=== PATIENT | female | born 1965 | race Caucasian/White ===

== ENCOUNTER 2023-05-30 13:35 | Observation (INO) | payer BC, SELFPAY ==
[2023-05-30] VITALS (27 sets, daily range): BP systolic 95–127; BP diastolic 74–86; PULSE 84–114; RESP 18–25; TEMP 36.4–36.9; O2SAT 93–100; BMI 22.9
--- NOTE | 2023-05-30 13:49 | ECG_ITS ---
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
--- NOTE | 2023-05-30 13:50 | XR_ITS ---
The [address] [address] Patient Name: ELIZABETH IRVIN MRN: [id number] date: 1965 Sex: F Assigned Patient Location: ER Current Patient Location: ER Accession/Order Number: [id number] Exam Date: 05/30/2023 14:12 Report Date: 05/30/2023 14:40 At the request of: NAZANIN STAFFORD Procedure: XR chest 1V PROCEDURE: XR chest 1V DATE: 05/30/2023 1:12 PM [employer] COMPARISONS: None. CLINICAL INDICATION: 57 years Female cp FINDINGS: The cardiomediastinal silhouette and pulmonary vasculature are within normal limits. The lungs are clear. There is no evidence of pleural effusion or pneumothorax. XR/XR chest 1V IMPRESSION: Chest radiograph is within normal limits. Electronically authenticated by: ALAINA HOFFMANN Date: 05/30/2023 14:40
[2023-05-30 14:11] LABS: Basophils Absolute Auto 0.1 10^3/uL (0.0-0.1); Eosinophils Absolute Auto 0.1 10^3/uL (0.0-0.7); Eosinophils Percent Auto 0.8 % (0.9-7.0); Hematocrit 39.1 % (36.0-48.0); Hemoglobin 11.3 g/dL (12.0-16.0); Immature Granulocytes Abs Auto 0.01 10^3/uL (0.00-0.03); Immature Granulocytes Pct Auto 0.2 % (0.0-0.5); Lymphocytes Absolute Auto 0.8 10^3/uL (1.2-3.8); Lymphocytes Percent Auto 13.4 % (20.5-60.0); Mean Corpuscular HGB Conc 28.9 g/dL (29.9-35.2); Mean Corpuscular Hemoglobin 24.5 pg (26.7-34.0); Mean Corpuscular Volume 84.8 fL (81.0-99.0); Mean Platelet Volume 8.6 fL (9.5-13.5); Monocytes Absolute Auto 0.8 10^3/uL (0.3-0.8); Monocytes Percent Auto 12.4 % (1.7-12.0); Neutrophils Absolute Auto 4.4 10^3/uL (1.4-6.5); Neutrophils Percent Auto 72.2 % (43.0-75.0); Platelet Count 550 10^3/uL (150-450); Red Blood Count 4.61 10^6/uL (4.20-5.40); Red Cell Distribution Width 14.6 % (11.0-15.0); White Blood Count 6.1 10^3/uL (4.0-11.0)
[2023-05-30 14:24] LABS: Prothrombin Time 9.8 sec (9.0-11.6)
[2023-05-30 14:26] LABS: INR <0.93
[2023-05-30 14:29] LABS: Alanine Aminotransferase 9 U/L (14-59); Albumin Globulin Ratio 0.5; Albumin Level 2.4 g/dL (3.4-5.0); Alkaline Phosphatase 76 U/L (46-116); Aspartate Amino Transferase 12 U/L (15-37); BUN Creatinine Ratio 21.4; Bilirubin Total 0.3 mg/dL (0.2-1.0); Calcium 9.7 mg/dL (8.5-10.1); Carbon Dioxide 16.1 mmol/L (21.0-32.0); Chloride 104 mmol/L (98-107); Estimated GFR (African America 30 (>=60); Estimated GFR (Non-African Ame 25 (>=60); Globulin 4.9 g/dL; Glucose 104 mg/dL (74-106); Lactate/Lactic Acid 1.1 mmol/L (0.4-2.0); Potassium 4.1 mmol/L (3.5-5.1); Sodium 135 mmol/L (136-145); Total Protein 7.3 g/dL (6.4-8.2); Troponin I High Sensitivity 4.4 pg/mL (4.0-51.3)
[2023-05-30 15:04] LABS: Bilirubin Urine NEGATIVE (NEGATIVE); Blood Urine NEGATIVE (NEGATIVE); Clarity Urine CLEAR (CLEAR); Color Urine LT. YELLOW (YELLOW); Glucose Urine UA NEGATIVE (NEGATIVE); Ketones Urine NEGATIVE (NEGATIVE); Leukocyte Esterase Urine NEGATIVE (NEGATIVE); Nitrite Urine NEGATIVE (NEGATIVE); Protein Urine 30 mg/dL (NEG/TRACE); Urobilinogen Urine 0.2 EU/dL (0.2-1.0)
[2023-05-30 15:05] LABS: Urine Microscopic Indicated YES
--- NOTE | 2023-05-30 15:09 | ED.GENADUL1 ---
HPI - General Adult General Chief complaint: Chest Pain Stated complaint: CHEST PAIN/ABDOMINAL PAIN Time Seen by Provider: 05/30/23 13:49 Source: patient Mode of arrival: Wheelchair Limitations: no limitations History of Present Illness HPI narrative: Patient is coming to us with a few days history of diarrhea she mentioned that she recently was evaluated in [facility] for similar symptoms at the beginning of this year almost 7 days ago, but since then she continues to have diarrhea almost 5 times since the morning in addition to the fact that she did mention that she have no abdominal pain she have a continuous left-sided upper chest wall pain that been going on since the seventh that she thinks it muscle pain.. The patient have no cough no fever no difficulty breathing she addressed dizziness No nausea no vomiting and she mentioned that the diarrhea is nonbloody Related Data Home Medications Medication Instructions Recorded Confirmed tamsulosin 0.4 mg capsule 0.4 mg PO Q24H 05/30/23 05/30/23 Allergies Allergy/AdvReac Type Severity Reaction Status Date / Time prednisone Allergy Severe Verified 05/30/23 13:48 valacyclovir AdvReac Severe Verified 05/30/23 13:48 Review of Systems ROS Status of ROS 10 or more systems reviewed and unremarkable except as noted in history and below Exam Narrative Exam Narrative: Nurses notes and vital signs reviewed and patient is not hypoxic. General: Well-appearing and in no apparent distress. Skin: Warm, dry, no pallor noted. No rash. Head: Normocephalic, atraumatic. Neck: Supple, non-tender. Eye: Pupils are equal, round and EOMI. No scleral icterus. Ears, Nose, Mouth, and Throat: TM are clear, no nasal mucosal hypertrophy. Oral mucosa is moist, no posterior oropharynx erythema, uvula is mid-line Cardiovascular: Regular Rate and Rhythm without murmur, gallop or rub. Respiratory: No accessory muscle use or respiratory distress. Lungs are clear to auscultation, no wheezing, rales or rhonchi Chest Wall: Left-sided chest wall pain mostly at the midaxillary line Back: No midline thoracic or lumbar vertebral tenderness. No CVA tenderness Musculoskeletal: normal ROM, no calf or popliteal tenderness, no lower extremity edema/swelling GI: Abdomen is soft, non-distended. Normal bowel sounds. No masses appreciated. No tenderness to palpation. No rebound, guarding, or rigidity noted. Neurological: A&O x4. No cranial nerve dysfunction observed. No truncal ataxia. Moves all extremities. Sensation intact. Psychiatric: Cooperative and interactive. Normal mood and affect. Constitutional Vital Signs, click to edit/add: Last Vital Signs Temp 97.6 F 05/30/23 13:41 Pulse 100 H 05/30/23 13:50 Resp 25 H 05/30/23 13:50 BP 102/74 05/30/23 13:47 Pulse Ox 98 05/30/23 13:50 O2 Del Method Room Air 05/30/23 13:41 Course Vital Signs Vital signs: Vital Signs Temperature 97.6 F 05/30/23 13:41 Pulse Rate 98 H 05/30/23 13:41 Respiratory Rate 20 05/30/23 13:41 Blood Pressure 100/85 05/30/23 13:41 Pulse Oximetry 100 05/30/23 13:41 Oxygen Delivery Method Room Air 05/30/23 13:41 Temperature 97.6 F 05/30/23 13:41 Pulse Rate 100 H 05/30/23 13:50 Respiratory Rate 25 H 05/30/23 13:50 Blood Pressure 102/74 05/30/23 13:47 Pulse Oximetry 98 05/30/23 13:50 Oxygen Delivery Method Room Air 05/30/23 13:41 Medical Decision Making [facility] Narrative Medical decision making narrative: The patient presented with possible muscular chest wall pain her EKG in the ER showing sinus rhythm with a heart rate of [address] elevation or depression We obtain the workup that was done from [facility] at that time she was diagnosed with dehydration and her creatinine was 1.7. Today the patient presenting to us also with dizziness and continuous diarrhea The patient was given a liter of fluid she will be admitted just for observation at this is the second time she presented with the same problem The patient case was discussed with Dr. Apodaca and he agreed with above-mentioned plan Lab Data Labs: Lab Results 05/30/23 05/30/23 Range/Units 14:04 14:35 WBC 6.1 (4.0-11.0) 10^3/uL RBC 4.61 (4.20-5.40) 10^6/uL Hgb 11.3 L (12.0-16.0) g/dL Hct 39.1 (36.0-48.0) % MCV 84.8 (81.0-99.0) fL MCH 24.5 L (26.7-34.0) pg MCHC 28.9 L (29.9-35.2) g/dL RDW 14.6 (11.0-15.0) % Plt Count 550 H (150-450) 10^3/uL MPV 8.6 L (9.5-13.5) fL Neut % (Auto) 72.2 (43.0-75.0) % Lymph % (Auto) 13.4 L (20.5-60.0) % [place] % (Auto) 12.4 H (1.7-12.0) % Eos % (Auto) 0.8 L (0.9-7.0) % Baso % (Auto) 1.0 (0.2-2.0) % Neut # (Auto) 4.4 (1.4-6.5) 10^3/uL Lymph # (Auto) 0.8 L (1.2-3.8) 10^3/uL [place] # (Auto) 0.8 (0.3-0.8) 10^3/uL Eos # (Auto) 0.1 (0.0-0.7) 10^3/uL Baso # (Auto) 0.1 (0.0-0.1) 10^3/uL Abs Immat Gran (auto) 0.01 (0.00-0.03) 10^3/uL Imm/Tot Granulo (auto) 0.2 (0.0-0.5) % PT 9.8 (9.0-11.6) sec INR <0.93 Sodium 135 L (136-145) mmol/L Potassium 4.1 (3.5-5.1) mmol/L Chloride 104 (98-107) mmol/L Carbon Dioxide 16.1 L (21.0-32.0) mmol/L Anion Gap 19.0 BUN 44.0 H (7.0-18.0) mg/dL Creatinine 2.06 H (0.55-1.02) mg/dL Est GFR ( Amer) 30 L (>=60) Est GFR (Non-Af Amer) 25 L (>=60) BUN/Creatinine Ratio 21.4 Glucose 104 (74-106) mg/dL Lactate 1.1 (0.4-2.0) mmol/L Calcium 9.7 (8.5-10.1) mg/dL Total Bilirubin 0.3 (0.2-1.0) mg/dL AST 12 L (15-37) U/L ALT 9 L (14-59) U/L Alkaline Phosphatase 76 (46-116) U/L Troponin I High Sens 4.4 (4.0-51.3) pg/mL Total Protein 7.3 (6.4-8.2) g/dL Albumin 2.4 L (3.4-5.0) g/dL Globulin 4.9 g/dL Albumin/Globulin Ratio 0.5 Urine Color Lt. yellow (YELLOW) Urine Clarity Clear (CLEAR) Urine pH 6.0 (5.0-9.0) Ur Specific [place] 1.020 (1.005-1.025) Urine Protein 30 A (NEG/TRACE) mg/dL Urine Glucose (UA) Negative (NEGATIVE) mg/dL Urine Ketones Negative (NEGATIVE) mg/dL Urine Occult Blood Negative (NEGATIVE) Urine Nitrite Negative (NEGATIVE) Urine Bilirubin Negative (NEGATIVE) Urine Urobilinogen 0.2 (0.2-1.0) EU/dL Ur Leukocyte Esterase Negative (NEGATIVE) Discharge Plan Discharge Chief Complaint: Chest Pain Clinical Impression: Dizziness Acute kidney failure Qualifiers: Acute renal failure type: unspecified Qualified Code(s): N17.9 - Acute kidney failure, unspecified Patient Disposition: Admitted as Observation Time of Disposition Decision: 15:10
[2023-05-30 15:22] LABS: Crystals Seen? None Seen #/HPF (None Seen); Mucus Urine NONE SEEN (NONE SEEN); RBC Urine 0-2 #/HPF (0-2); Squamous Epithelial Cell Urine FEW #/LPF (NONE/RARE)
[2023-05-30 15:23] LABS: Cast Seen? SEEN #/LPF (NONE SEEN); Fine Granular Casts Urine FEW; Hyaline Casts Urine RARE
[2023-05-30 15:24] LABS: Bacteria Urine TRACE #/HPF (NONE SEEN); Urine Culture Indicated NO
[2023-05-30] MEDS: LACTATED RINGER'S SOLUTION 1,000 ML 125 ML IV (17:24)
[2023-05-30] MEDS: ACETAMINOPHEN 500 MG TABLET 1000 MG PO (17:27)
[2023-05-30 17:57] LABS: Creatine Kinase 19 U/L (26-192); Creatine Kinase MB <0.50 ng/mL (<=3.60); Myoglobin 77 ng/mL (9-82)
[2023-05-30] MEDS: ORPHENADRINE 60 MG/ 2 ML VIAL IV (18:08)
[2023-05-30] MEDS: TRAMADOL HCL 50 MG TABLET PO (19:43)
[2023-05-31] VITALS (20 sets, daily range): BP systolic 113–130; BP diastolic 75–82; PULSE 77–89; RESP 14–26; TEMP 36.6–36.9; O2SAT 95–99
[2023-05-31] MEDS: TRAMADOL HCL 50 MG TABLET PO ×4 (01:04→23:09)
[2023-05-31] MEDS: LACTATED RINGER'S SOLUTION 1,000 ML 125 ML IV ×3 (01:05→18:07)
[2023-05-31] MEDS: HYOSCYAMINE SULFATE 0.125 MG TAB.SUBL SL ×4 (06:22→21:18)
[2023-05-31 06:32] LABS: Basophils Absolute Auto 0.1 10^3/uL (0.0-0.1); Basophils Percent Auto 1.3 % (0.2-2.0); Eosinophils Absolute Auto 0.1 10^3/uL (0.0-0.7); Eosinophils Percent Auto 1.6 % (0.9-7.0); Hematocrit 34.2 % (36.0-48.0); Immature Granulocytes Abs Auto 0.04 10^3/uL (0.00-0.03); Immature Granulocytes Pct Auto 0.6 % (0.0-0.5); Lymphocytes Absolute Auto 1.1 10^3/uL (1.2-3.8); Lymphocytes Percent Auto 15.2 % (20.5-60.0); Mean Corpuscular HGB Conc 29.2 g/dL (29.9-35.2); Mean Corpuscular Hemoglobin 24.8 pg (26.7-34.0); Mean Corpuscular Volume 84.7 fL (81.0-99.0); Mean Platelet Volume 8.3 fL (9.5-13.5); Monocytes Percent Auto 13.7 % (1.7-12.0); Neutrophils Absolute Auto 4.8 10^3/uL (1.4-6.5); Neutrophils Percent Auto 67.6 % (43.0-75.0); Platelet Count 508 10^3/uL (150-450); Red Blood Count 4.04 10^6/uL (4.20-5.40); Red Cell Distribution Width 14.6 % (11.0-15.0); White Blood Count 7.1 10^3/uL (4.0-11.0)
[2023-05-31 07:03] LABS: Alanine Aminotransferase 8 U/L (14-59); Albumin Globulin Ratio 0.5; Albumin Level 2.1 g/dL (3.4-5.0); Alkaline Phosphatase 67 U/L (46-116); Anion Gap 14.6; Aspartate Amino Transferase 7 U/L (15-37); BUN Creatinine Ratio 21.5; Bilirubin Total 0.3 mg/dL (0.2-1.0); Calcium 9.5 mg/dL (8.5-10.1); Carbon Dioxide 17.5 mmol/L (21.0-32.0); Chloride 110 mmol/L (98-107); Estimated GFR (African America 33 (>=60); Estimated GFR (Non-African Ame 27 (>=60); Globulin 4.2 g/dL; Glucose 63 mg/dL (74-106); Magnesium 1.6 mg/dL (1.8-2.4); Potassium 4.1 mmol/L (3.5-5.1); Sodium 138 mmol/L (136-145); Total Protein 6.3 g/dL (6.4-8.2)
--- NOTE | 2023-05-31 08:02 | P.HP_ITS ---
H&P: HPI History of Present Illness Chief complaint: Chest Pain,Abdominal Pain,Acute Kidney Failure,Diz Narrative: presented to er with increasing weaknss, abd pain. ound to have acute kidney injury with dehydration. possible uti. pt admitted for eval and hydration Review of Systems ROS Status of ROS 10 or more systems reviewed and unremark able except as noted in history and below PFSH PFSH Social History Highest level of school completed/degree received: GED or equivalent Meds Home Medications and Allergies Home Medications Medication Instructions Recorded Confirmed Type tamsulosin 0.4 mg capsule 0.4 mg PO Q24H 05/30/23 05/30/23 History Allergies Allergy/AdvReac Type Severity Reaction Status Date / Time prednisone Allergy Severe Verified 05/30/23 13:48 valacyclovir AdvReac Severe Verified 05/30/23 13:48 Exam Constitutional Vital Signs, click to edit/add: Last Vital Signs Temp 98.1 F 05/31/23 06:51 Pulse 83 05/31/23 07:41 Resp 20 05/31/23 07:40 BP 118/82 05/31/23 07:27 Pulse Ox 96 05/31/23 07:11 O2 Del Method Room Air 05/31/23 07:11 Documenting provider has reviewed patient's vital signs: yes Common normals: apparent distress (sl painful distress) HENMT Common normals: normocephalic Respiratory Common normals: normal respiratory effort and no retractions Cardio Common normals: regular rate and regular rhythm GI Common normals: Normal to inspection, nondistended, normoactive bowel sounds present Palpation: tender (mild diffuse - no rebound) Results Labs Labs: Short CBC 05/30/23 05/31/23 Range/Units 14:04 04:26 WBC 6.1 7.1 (4.0-11.0) 10^3/uL Hgb 11.3 L 10.0 L (12.0-16.0) g/dL Hct 39.1 34.2 L (36.0-48.0) % Plt Count 550 H 508 H (150-450) 10^3/uL BMP 05/30/23 05/31/23 14:04 04:26 Sodium 135 L 138 Potassium 4.1 4.1 Chloride 104 110 H Carbon Dioxide 16.1 L 17.5 L BUN 44.0 H 41.0 H Creatinine 2.06 H 1.91 H Glucose 104 63 L Calcium 9.7 9.5 Cardiac Enzymes 05/30/23 Range/Units 17:21 Total Creatine Kinase 19 L (26-192) U/L CK-MB (CK-2) <0.50 (<=3.60) ng/mL Liver Function 05/30/23 05/31/23 Range/Units 14:04 04:26 Total Bilirubin 0.3 0.3 (0.2-1.0) mg/dL AST 12 L 7 L (15-37) U/L ALT 9 L 8 L (14-59) U/L Alkaline Phosphatase 76 67 (46-116) U/L Albumin 2.4 L 2.1 L (3.4-5.0) g/dL Urine 05/30/23 Range/Units 14:35 Urine Color Lt. yellow (YELLOW) Urine Clarity Clear (CLEAR) Urine pH 6.0 (5.0-9.0) Ur Specific [place] 1.020 (1.005-1.025) Urine Protein 30 A (NEG/TRACE) mg/dL Urine Glucose (UA) Negative (NEGATIVE) mg/dL Assessment and Plan Assessment and Plan (1) Acute kidney failure: Qualifiers: Acute renal failure type: unspecified Qualified Code(s): N17.9 - Acute kidney failure, unspecified (2) Dizziness: Plan Sinus tachycardia - abdominal pain l;eading to acute renal injury and dehydration. Cont with fluid resuscitation. since not improved much overnight check renal u/s Iron def anemia - check stool or OB Hypomagnesemia - Supplement Thrombocytopenia - monitor daily Hyponatremia due to dehydration- cont with fluids, lower bolus this am So far with just dehydration- maintain observation, if much improved this afternoon - possible D/C to home
--- NOTE | 2023-05-31 08:06 | US_ITS ---
The [address] [address] Patient Name: ELIZABETH IRVIN MRN: [id number] date: 1965 Sex: F Assigned Patient Location: ICU Current Patient Location: ICU Accession/Order Number: [id number] Exam Date: 05/31/2023 11:05 Report Date: 05/31/2023 12:05 At the request of: EDUARDO WISDOM Procedure: US renal bladder EXAMINATION: US renal bladder HISTORY: acute renal failure COMPARISON: No relevant comparison available. TECHNIQUE: Ultrasound examination was performed of the bladder. FINDINGS: Right Kidney: Normal in size and contour. The cortex measures 1 cm thick. Increased cortical echotexture with no solid cortical mass or hydronephrosis. Nonobstructing nephrolithiasis measuring up to 7 mm. Height: 6.2 cm Length: 9.8 cm Width: 5.0 cm Left Kidney: Small in size and contour. The cortex is thin measuring 0.6 cm. Increase in cortical echotexture. Echogenic foci measuring up to 7 mm, nonobstructing nephrolithiasis. No solid mass Height: 3.8 cm Length: 6.1 cm Width: 3.8 cm The urinary bladder measures 6.3 x 6.9 x 9.8 cm a volume of 296 mL. 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
[2023-05-31] MEDS: PANTOPRAZOLE SODIUM 40 MG VIAL IV (08:17)
[2023-05-31] MEDS: 0.9 % SODIUM CHLORIDE 1,000 ML 500 ML IV (08:17)
[2023-05-31] MEDS: MAGNESIUM OXIDE 400 MG TABLET PO ×2 (08:17→21:18)
--- NOTE | 2023-05-31 09:07 | CM.NOTE ---
Rounds made with Dr. Apodaca. Potential discharge later today.
[2023-05-31] MEDS: ACETAMINOPHEN 500 MG TABLET 1000 MG PO (12:41)
[2023-05-31 20:13] LABS: Adenovirus F 40/41 NOT DETECTED (NOT DETECTE); Astrovirus NOT DETECTED (NOT DETECTE); Cryptosporidium NOT DETECTED (NOT DETECTE); Cyclospora cayetanensis NOT DETECTED (NOT DETECTE); Entamoeba histolytica NOT DETECTED (NOT DETECTE); Enteroaggregative E.coli NOT DETECTED (NOT DETECTE); Enteropathogenic E.coli NOT DETECTED (NOT DETECTE); Enterotoxigenic E. coli NOT DETECTED (NOT DETECTE); Giardia lamblia NOT DETECTED (NOT DETECTE); Norovirus GI/GII NOT DETECTED (NOT DETECTE); Plesiomonas shigelloides NOT DETECTED (NOT DETECTE); Rotavirus A NOT DETECTED (NOT DETECTE); Salmonella NOT DETECTED (NOT DETECTE); Sapovirus NOT DETECTED (NOT DETECTE); Shiga-like toxin-producing E.C NOT DETECTED (NOT DETECTE); Shigella/Enteroinvasive E.coli NOT DETECTED (NOT DETECTE); Vibrio NOT DETECTED (NOT DETECTE); Vibrio cholerae NOT DETECTED (NOT DETECTE); Yersinia enterocolitica NOT DETECTED (NOT DETECTE)
[2023-05-31 20:18] LABS: Occult Blood Negative
[2023-05-31 23:35] LABS: Campylobacter DETECTED (NOT DETECTE)
[2023-06-01] MEDS: LACTATED RINGER'S SOLUTION 1,000 ML 125 ML IV (02:25)
[2023-06-01] MEDS: HYOSCYAMINE SULFATE 0.125 MG TAB.SUBL SL ×2 (05:02→12:12)
[2023-06-01 05:10] LABS: Basophils Absolute Auto 0.1 10^3/uL (0.0-0.1); Basophils Percent Auto 0.8 % (0.2-2.0); Eosinophils Absolute Auto 0.1 10^3/uL (0.0-0.7); Eosinophils Percent Auto 1.6 % (0.9-7.0); Hematocrit 28.1 % (36.0-48.0); Immature Granulocytes Abs Auto 0.03 10^3/uL (0.00-0.03); Immature Granulocytes Pct Auto 0.5 % (0.0-0.5); Lymphocytes Absolute Auto 0.8 10^3/uL (1.2-3.8); Lymphocytes Percent Auto 13.4 % (20.5-60.0); Mean Corpuscular HGB Conc 28.5 g/dL (29.9-35.2); Mean Corpuscular Hemoglobin 23.7 pg (26.7-34.0); Mean Corpuscular Volume 83.4 fL (81.0-99.0); Mean Platelet Volume 9.1 fL (9.5-13.5); Monocytes Absolute Auto 0.7 10^3/uL (0.3-0.8); Monocytes Percent Auto 10.5 % (1.7-12.0); Neutrophils Absolute Auto 4.6 10^3/uL (1.4-6.5); Neutrophils Percent Auto 73.2 % (43.0-75.0); Platelet Count 368 10^3/uL (150-450); Red Blood Count 3.37 10^6/uL (4.20-5.40); Red Cell Distribution Width 14.7 % (11.0-15.0); White Blood Count 6.3 10^3/uL (4.0-11.0)
[2023-06-01 05:11] VITALS: BP 115/77; PULSE 75; RESP 16; TEMP 36.8; O2SAT 98
[2023-06-01] MEDS: TRAMADOL HCL 50 MG TABLET PO ×2 (05:15→12:11)
[2023-06-01 05:25] LABS: Alanine Aminotransferase 10 U/L (14-59); Albumin Globulin Ratio 0.4; Albumin Level 1.7 g/dL (3.4-5.0); Alkaline Phosphatase 60 U/L (46-116); Anion Gap 10.9; Aspartate Amino Transferase 17 U/L (15-37); BUN Creatinine Ratio 17.8; Bilirubin Total 0.2 mg/dL (0.2-1.0); Calcium 8.5 mg/dL (8.5-10.1); Carbon Dioxide 20.1 mmol/L (21.0-32.0); Chloride 111 mmol/L (98-107); Estimated GFR (African America 39 (>=60); Estimated GFR (Non-African Ame 32 (>=60); Globulin 3.8 g/dL; Glucose 82 mg/dL (74-106); Magnesium 1.6 mg/dL (1.8-2.4); Sodium 138 mmol/L (136-145); Total Protein 5.5 g/dL (6.4-8.2)
--- NOTE | 2023-06-01 09:03 | CM.NOTE ---
Rounds made with Dr. Apodaca, discussed with pt discharge to home. No discharge needs identified.
--- NOTE | 2023-06-01 09:09 | P.DS_ITS ---
DS: Providers Provider Date of admission: 05/30/23 15:43 Primary care physician: Non-Staff Physician, DS: Diagnosis Discharge Diagnosis (1) Acute kidney failure: Qualifiers: Acute renal failure type: unspecified Qualified Code(s): N17.9 - Acute kidney failure, unspecified (2) Dizziness: Plan Sinus tachycardia - abdominal pain due to Campylobacter Iron def anemia Hypomagnesemia Thrombocytopenia Hyponatremia due to dehydration DS: Summary Hospital Course Hospital Course: Patient was admitted with increasing abdominal pain and diarrhea over the last 2 weeks. Stool testing ended up confirming Campylobacter. But there is degree of her symptoms and persistence of her symptoms we will go ahead and start treatment today of Cipro 500 mg twice daily. Patient does feel overall much i mproved. Knowing the results are much improved as well. She does have significant anemia and that can be followed up as an outpatient. I think part of it is dilutional. Follow-up with PCP within the next week. Medications see list. Time Spent with Patient Time attestation: Total time spent providing and/or coordinating discharge services: Exam Constitutional Vital Signs, click to edit/add: Last Vital Signs Temp 98.2 F 06/01/23 05:11 Pulse 75 06/01/23 05:11 Resp 16 06/01/23 05:11 BP 115/77 06/01/23 05:11 Pulse Ox 98 06/01/23 05:11 O2 Del Method Room Air 06/01/23 05:11 Documenting provider has reviewed patient's vital signs: yes Common normals: apparent distress (sl painful distress) HENMT Common normals: normocephalic Respiratory Common normals: normal respiratory effort and no retractions Cardio Common normals: regular rate and regular rhythm GI Common normals: Normal to inspection, nondistended, normoactive bowel sounds present Palpation: tender (mild diffuse - no rebound) DS: Data Data Completed and Pending Labs on day of discharge: Labs from last 24 hours 06/01/23 05/31/23 04:40 19:36 WBC 6.3 RBC 3.37 L Hgb 8.0 L Hct 28.1 L MCV 83.4 MCH 23.7 L MCHC 28.5 L RDW 14.7 Plt Count 368 MPV 9.1 L Neut % (Auto) 73.2 Lymph % (Auto) 13.4 L [place] % (Auto) 10.5 Eos % (Auto) 1.6 Baso % (Auto) 0.8 Neut # (Auto) 4.6 Lymph # (Auto) 0.8 L [place] # (Auto) 0.7 Eos # (Auto) 0.1 Baso # (Auto) 0.1 Abs Immat Gran (auto) 0.03 Imm/Tot Granulo (auto) 0.5 Sodium 138 Potassium 4.0 Chloride 111 H Carbon Dioxide 20.1 L Anion Gap 10.9 BUN 29.0 H Creatinine 1.63 H Est GFR ( Amer) 39 L Est GFR (Non-Af Amer) 32 L BUN/Creatinine Ratio 17.8 Glucose 82 Calcium 8.5 Magnesium 1.6 L Total Bilirubin 0.2 AST 17 ALT 10 L Alkaline Phosphatase 60 Total Protein 5.5 L Albumin 1.7 L Globulin 3.8 Albumin/Globulin Ratio 0.4 Stool Occult Blood Negative Stl C. cayetanensis PCR Not detected Stool Rotavirus (PCR) Not detected Stool Adenovirus (PCR) Not detected Stool Astrovirus (PCR) Not detected Stool Campylobacter PCR Detected A* Stool Cryptosporidium PCR Not detected St Sh/Enteroin Ecoli PCR Not detected Stl Enterotoxigenic E PCR Not detected Stool EPEC (PCR) Not detected Stl E. histolytica PCR Not detected Stool Giardia Lamblia PCR Not detected Stl P. shigelloides PCR Not detected Stool Salmonella PCR Not detected Stool Sapovirus (PCR) Not detected Stl Shiga-like Tx [address].enterocolitica PCR Not detected Stl Vibrio cholerae PCR Not detected Stl Enteroaggr Ecoli PCR Not detected Stl Norovirus GI/GII PCR Not detected C. difficile Toxin A&B Not detected Vibrio Culture Not detected Discharge Plan Discharge Disposition: Home, Self-Care Discharge Medications: New ciprofloxacin HCl 500 mg Tablet 500 mg PO BID Qty: 20 0RF pantoprazole [Protonix] 40 mg tablet,delayed release (DR/EC) 40 mg PO DAILY Qty: 30 11RF hyoscyamine sulfate [Levsin/SL] 0.125 mg tablet, sublingual 0.125 mg PO Q6H MDD 4 PRN (Reason: dyspepsia) Qty: 30 0RF Continued tamsulosin 0.4 mg capsule 0.4 mg PO Q24H Patient Comments: for 14 days Activity: resume usual activities as tolerated Diet: advance to your usual diet Patient Instructions: Ciprofloxacin (By mouth), Hyoscyamine (By mouth), Pa ntoprazole (By mouth), Acute Kidney Injury (GEN), Acute Diarrhea (GEN), Dizziness (GEN) Forms: Portal Instructions Follow Up Appointments: @ 11am with Dr. Rajput [address] [facility] [phone] *take insurance card and medications in original bottles* Discharge Date/Time: 06/01/23 12:25
[2023-06-01] MEDS: PANTOPRAZOLE SODIUM 40 MG VIAL IV (10:20)
[2023-06-01] MEDS: MAGNESIUM OXIDE 400 MG TABLET PO (10:20)
[2023-06-01] MEDS: CIPROFLOXACIN HCL 500 MG TABLET PO (10:20)
[2023-06-01] MEDS: ENSURE CLEAR 237 ML LIQUID PO (10:21)
[2023-06-01 11:03] VITALS: O2SAT 97
--- NOTE | 2023-06-02 14:04 | CM.DCFOLLOWU ---
Person spoke with: Greer How are you feeling? Much better How is your pain? No pain Did you understand your discharge instructions? Yes Do you have any questions about your discharge instructions? No Were you given any prescriptions at discharge? Yes Were you able to get your prescriptions filled? Yes Do you understand how to take your medications as ordered? Yes Do you have any questions about your follow up appointment and do you plan to keep your follow up appointment? Yes Is there anything else that you would like to discuss? How do I get FMLA paperwork filled out? Explained to pt about dropping them off at her primary care office. Questions/Comments/Concerns/Other:
== END 2023-06-01 12:25 | disposition home or self-care (01) ==
LOC: ER 15:10 → ICU 15:52 → MS 05-31 12:28
PROVIDERS: Admitting Provider Family Medicine; Emergency Provider Emergency Medicine; Visit Provider Family Medicine
DX: N17.9 Acute kidney failure, unspecified (principal); A04.5 Campylobacter enteritis; E86.0 Dehydration; R00.0 Tachycardia, unspecified; D50.9 Iron deficiency anemia, unspecified; E83.42 Hypomagnesemia; D69.6 Thrombocytopenia, unspecified; E87.1 Hypo-osmolality and hyponatremia; R42 Dizziness and giddiness; Z79.899 Other long term (current) drug therapy
CPT/HCPCS: 36415; 71045; 76770; 80053; 81001; 82550; 82553; 83605; 83735; 83874; 84484; 85025; 85610; 87493; 87507; 93005; 94761; 96361; 96374; 96375; 96376; 99285; G0328; G0378; J2360

== ENCOUNTER 2023-06-16 14:36 | Outpatient (OUT) | payer BC, SELFPAY ==
[2023-06-16 15:28] LABS: Alanine Aminotransferase 23 U/L (14-59); Albumin Globulin Ratio 0.7; Albumin Level 2.4 g/dL (3.4-5.0); Alkaline Phosphatase 66 U/L (46-116); Anion Gap 10.1; Aspartate Amino Transferase 21 U/L (15-37); BUN Creatinine Ratio 12.9; Bilirubin Total 0.2 mg/dL (0.2-1.0); Calcium 8.1 mg/dL (8.5-10.1); Carbon Dioxide 25.4 mmol/L (21.0-32.0); Chloride 110 mmol/L (98-107); Estimated GFR (African America 39 (>=60); Estimated GFR (Non-African Ame 32 (>=60); Globulin 3.6 g/dL; Glucose 77 mg/dL (74-106); Potassium 4.5 mmol/L (3.5-5.1); Sodium 141 mmol/L (136-145)
[2023-06-16 15:39] LABS: Basophils Absolute Auto 0.1 10^3/uL (0.0-0.1); Basophils Percent Auto 1.1 % (0.2-2.0); Eosinophils Absolute Auto 0.4 10^3/uL (0.0-0.7); Eosinophils Percent Auto 6.4 % (0.9-7.0); Hematocrit 26.7 % (36.0-48.0); Hemoglobin 7.6 g/dL (12.0-16.0); Immature Granulocytes Abs Auto 0.01 10^3/uL (0.00-0.03); Immature Granulocytes Pct Auto 0.2 % (0.0-0.5); Lymphocytes Absolute Auto 1.6 10^3/uL (1.2-3.8); Lymphocytes Percent Auto 25.1 % (20.5-60.0); Mean Corpuscular HGB Conc 28.5 g/dL (29.9-35.2); Mean Corpuscular Hemoglobin 24.7 pg (26.7-34.0); Mean Corpuscular Volume 86.7 fL (81.0-99.0); Monocytes Absolute Auto 0.5 10^3/uL (0.3-0.8); Neutrophils Absolute Auto 3.8 10^3/uL (1.4-6.5); Neutrophils Percent Auto 59.2 % (43.0-75.0); Platelet Count 406 10^3/uL (150-450); Red Blood Count 3.08 10^6/uL (4.20-5.40); White Blood Count 6.4 10^3/uL (4.0-11.0)
== END 2023-06-16 14:37 | disposition home or self-care (01) ==
LOC: LAB 14:39
PROVIDERS: PCP Family Medicine; Visit Provider Family Medicine
DX: R60.1 Generalized edema (principal); R60.0 Localized edema; Z86.2 Personal history of diseases of the blood and blood-forming organs and certain disorders involving the immune mechanism
CPT/HCPCS: 36415; 80053; 83880; 85025

== ENCOUNTER 2023-06-21 11:36 | Outpatient (OUT) | payer BC, SELFPAY ==
--- OUTSIDE RECORDS SUMMARY | 2023-06-21 11:40 | XMS_ITS | CCD ---
Author Name Unknown Address [address] [place] [address] Organization [facility] Care Team Providers Care Wire Lather Name Role Phone Unavailable Primary Care Provider Unavailabl e MARTINEZ, JANICE Referring Unavailable MARTINEZ, JANICE Referring Unavailable MARTINEZ, JANICE Referring Unavailable MARTINEZ, JANICE Referring Unavailable MARTINEZ, JANICE Referring Unavailable MARTINEZ, JANICE Referring Unavailable MARTINEZ, JANICE Referring Unavailable MARTINEZ, JANICE Referring Unavailable MARTINEZ, JANICE Referring Unavailable MARTINEZ, JANICE Referring Unavailable MARTINEZ, JANICE Referring Unavailable MARTINEZ, JANICE Referring Unavailable Balbina Napoles Unavailable SUZI MCHUGH Primary Care Physician [phone] BALBINA NAPOLES Primary Care Unavailable FABY, DR CALEB [place] Admitting Unavailmindi HOBBS, DR CALEB [place] Attending Unavailabl e FABY, DR CALEB [place] Consulting Unavailmindi e TORRI, DR NATACHA العراقي Consulting Unavailable BALBINA NAPOLES Primary Care Unavailable JEISON, DR SUZI Urrutia Admitting Unavailable JEISON, DR SUZI Urrutia Attending Unavailable JEISON, DR SUZI Urrutia Consulting Unavailable TRI, DR CHALO Frazier Consulting Unavailable TORRI, DR NATACHA العراقي Consulting Unavailable MARLYS HERNANDEZ Consulting Unavailable SANDY CHEN Consulting Unavailable HARMONY BENITEZ Consulting Unavailable TRI, DR CHALO Frazier Admitting Unavailable TRI, DR CHALO Frazier Attending Unavailable BALBINA NAPOLES Primary Care Unavailable TRI, DR CHALO Frazier Consulting Unavailable TORRI, DR NATACHA العراقي Consulting Unavailable BALBINA NAPOLES Admitting Unavailable BALBINA NAPOLES Attending Unavailable YESIKA, BALBINA Primary Care Unavailable YESIKA, BALBINA Consulting Unavailable COOK, DR CHALO Frazier Admitting Unavailable COOK, DR CHALO Frazier Attending Unavailable YESIKA, BALBINA Primary Care Unavailable COOK, DR CHALO Frazier Consulting Unavailable WEST, DR BRADEN Hallman Consulting Unavailable YESIKA, BALBINA Admitting Unavailable YESIKA, BALBINA Attending Unavailable YESIKA, BALBINA Primary Care Unavailable YESIKA, BALBINA Consulting Unavailable WEST, DR BRADEN Hallman Admitting Unavailable WEST, DR BRADEN Hallman Attending Unavailable YESIKA, BALBINA Primary Care Unavailable WEST, DR BRADEN Hallman Consulting Unavailable YESIKA, BALBINA J Primary Care Physician [phone] Balbina Napoles Unavailable Unavailable Unavailable MD Chalo Blum Attending Provider CESAR Napoles Balbina Primary Care Provider Chalo Blum Unavailable Chalo Blum Attending Unavailable Chalo Blum Admitting Unavailable Yesika, Balbina Primary Care Unavailable COOKChalo Attending Unavailable SUZI MCHUGH Referring Unavailable COOKChalo Attending Unavailable COOKChalo Attending Unavailable YESIKA, BALBINA Primary Care Unavailable COOKChalo Attending Unavailable COOKChalo Attending Unavailable COOKChalo Attending Unavailable YESIKA, BALBINA Primary Care Unavailable COOKChaol Referring Unavailable COOKChalo Admitting Unavailable COOKChalo Attending Unavailable YESIKA, BALBINA Primary Care Unavailable COOKChalo Referring Unavailable COOKChalo Admitting Unavailable COOKChalo Attending Unavailable YESIKA, BALBINA Primary Care Unavailable COOKChalo Referring Unavailable COOKChalo Admitting Unavailable ODONNELLSAMY Referring Unavailable Mao Irina Unavailable Gaurang'MARLEY PERES Attending Unavailable ODONNELL, SAMY Admitting Unavailable ODONNELL, SAMY Attending Unavailable ODONNELL, SAMY Attending Unavailable ODONNELL, SAMY Admitting Unavailable ODONNELL, SAMY Referring Unavailable ODONNELL, SAMY Attending Unavailable ODONNELL, SAMY Referring Unavailable ODONNELL, SAMY Referring Unavailable ODONNELL, SAMY Attending Unavailable ODONNELL, SAMY Referring Unavailable O'LARISAMARLEY PIKE Attending Unavailable ODONNELL, SAMY Referring Unavailable ODONNELL, SMAY Admitting Unavailable O'LARISAEDY PIKEE Referring Unavailable SAMY ODONNELL Attending Unavailable SAMY ODONNELL Attending Unavailable KASEY MARLEY Attending Unavailable KASEY MARLEY Attending Unavailable Allergies Allergy Classification Reported Allergen(s) Allergy Type Date of Onset Reaction(s) Facility (15 sources) prednisoLONE; Translations: [PREDNISOLONE] Drug Allergy [address] [facility] (20 sources) valACYclovir; Translations: [valacyclovir] Drug Allergy 2 hives, Weal (disorder) [facility] (20 sources) predniSONE; Translations: [prednisone] Drug Allergy 2 Weal (disorder), Hives [facility] (1 source) predniSONE Drug Allergy [facility] (2 sources) valACYclovir; Translations: [Valtrex] Drug Allergy [facility] Repository Medications Current Medications Medication Drug Class(es) Dates Sig (Normalized) Sig (Original) acetaminophen 500 mg oral tablet (2 sources) Start: 10-12-2022 End: 10-26-2022 take 2 tablets by mouth every six hours acetaminophen (TYLENOL EXTRA STRENGTH) 500 mg tablet Take 2 tablets by mouth every 6 hours for 14 days. 112 tablet 0 10/12/2022 10/26/2022 Active Comment on above: Take 2 tablets by mo [facility] every 6 hours for 14 days. acetaminophen 325 mg / HYDROcodone bitartrate 5 mg oral tablet (2 sources) Opioid Agonist Start: 06-18-2022 acetaminophen-hydroc odone 325 mg-5 mg oral tablet 1 tab(s), Oral, q4hr Pain, 7 tab(s), Refill(s) 0, [id number], 160, cm, 06/11/22 9:42:00 EST, Height/Length Dosing, 65.6, kg, 06/11/22 9:42:00 EST, Weight Dosing Start Date: 06/18/22 Status: Ordered ciprofloxacin 500 mg oral tablet (1 source) Quinolone Antimicrobial Start: 03-31-2022 take 1 mg by mouth every twelve hours Cipro 500 mg Tab mg tab(s), Oral, q12hr, Refills(s) 0 Start Date: 03/31/22 Status: Ordered docusate sodium 100 mg oral capsule (7 sources) Start: 09-07-2022 End: 10-07-2022 take 1 capsule by mouth twice daily docusate sodium (COLACE) 100 mg capsule Take 1 capsule by mouth twice daily. 60 capsule 0 09/07/2022 10/07/2022 Active Comment on above: Take 1 capsule by [facility] twice daily. duloxetine 60 mg Cap-DR (5 sources) Start: 03-31-2022 take 1 capsule by mouth once daily duloxetine 60 mg Cap-DR 60 mg, Oral, Daily, Refills(s) 0, Depression Start Date: 03/31/22 Status: Ordered hydrOXYzine hydrochloride 10 mg oral tablet (1 source) Antihistamine Start: 03-18-2020 hydrOXYzine HCl 10 MG 1 tablet as needed Orally at bedtime for 90 days Feb, Active nitrofurantoin, macrocrystals 25 mg / nitrofurantoin, monohydrate 75 mg oral capsule (1 source) Nitrofuran Antibacterial Start: 07-16-2022 End: 07-23-2022 take 1 capsule by mouth twice daily at mealtime nitrofurantoin monohydrate and macrocrystal (MACROBID) 100 mg capsule Take 1 capsule by mouth twice daily for 7 days. Take with food. 14 capsule 0 07/16/2022 07/23/2022 Active Comment on above: Take 1 capsule by [facility] twice daily for 7 days. Take with food. oxyCODONE hydrochloride 5 mg oral tablet (1 source) Opioid Agonist Start: 09-07-2022 End: 09-10-2022 take 1 tablet by mouth every six hours as needed for pain oxyCODONE IR (ROXICODONE) 5 mg immediate release tablet Indications: Nephrolithiasis Take 1 tablet by mouth every 6 hours as needed for pain for up to 3 days. 8 tablet 0 09/07/2022 09/10/2022 Active Comment on above: Take 1 tablet by [facility] every 6 hours as needed for pain for up to 3 days. rOPINIRole 0.5 mg oral tablet (20 sources) Nonergot Dopamine Agonist Start: 03-31-2022 take 2 tablets by mouth three times daily ropinirole 0.5 mg Tab 1 mg = 2 tab(s), Oral, TID, for restless leg syndrome, Refills(s) 0 Start Date: 03/31/22 Status: Ordered Start: 02-02-2022 take 1 tablet by josé th once daily at bedtime rOPINIRole HCl 0.5 MG 1 tablet 1 to 3 hours before bedtime Orally Once a day for 30 day(s) Jan, Active Start: 02-02-2022 rOPINIRole (RE QUIP) 1 mg tablet sulfamethoxazole 800 mg / trimethoprim 160 mg oral tablet (2 sources) Dihydrofolate Reductase Inhibitor Antibacterial, Sulfonamide Antimicrobial Start: 09-01-2022 End: 09-04-2022 sulfamethoxazole-trimethopri m (BACTRIM DS) 800-160 mg per tablet Take 1 tablet by mouth twice daily for 3 days. Start 09/04 (3 days prior to surgery). 6 tablet 0 09/01/2022 09/04/2022 Active Start: 06-14-2022 End: 06-21-2022 Bactrim D.S. 800 mg-160 mg T ab 1 tab(s), Oral, BID for 7 day(s), 14 tab(s), Refill(s) 0, [facility] #[id number], 160, cm, 06/11/22 9:42:00 EST, Height/Length Dosing, 65.6, kg, 06/11/22 9:42:00 EST, Weight Dosing Start Date: 06/14/22 Stop Date: 06/21/22 Status: Ordered Comment on above: Take 1 tablet by josé twice daily for 3 days. Start 09/04 (3 days prior to surgery). Completed/Discontinued Medications Medication Drug Class(es) Dates Sig (Normalized) Sig (Original) cephalexin 500 mg oral capsule (7 sources) Cephalosporin Antibacterial Start: 09-16-2022 End: 09-16-2022 take 1 capsule by mouth three times daily cephALEXin (KEFLEX) 500 mg capsule Take 1 capsule by mouth three times daily. 10 capsule 0 09/16/2022 Active Start: 09-07-2022 End: 09-10-2022 take 1 capsule by mouth three times daily cephALEXin (KEFLEX) 500 mg capsule Take 1 capsule by mouth three times daily for 3 days. 9 capsule 0 09/07/2022 09/10/2022 Active Comment on above: Take 1 capsule by mo ut three times daily for 3 days. Take 1 capsule by [facility] three times daily. DULoxetine 60 mg delayed release oral capsule (20 sources) Serotonin and Norepinephrine Reuptake Inhibitor Start: 07-15-2020 DULoxetine (CYMBALTA) 60 mg capsule lidocaine hydrochloride 0.02 mg/mg topical gel (3 sources) Antiarrhythmic, Amide Local Anesthetic Start: 10-21-2022 End: 11-20-2022 lidocaine urojet 2 % 10 mL topical gel (GLYDO) Start: 09-16-2022 End: 10-16-2022 lidocaine urojet 2 % 10 mL t opical gel (GLYDO) lisinopril 20 mg oral tablet (20 sources) Angiotensin Converting Enzyme Inhibitor Start: 03-18-2020 lisinopril (ZESTRIL, PRINIVIL) 20 mg tablet Take by mouth. 0 03/18/2020 Active Comment on above: Take by mouth. oxybutynin chloride 5 mg oral tablet (11 sources) Cholinergic Muscarinic Antagonist Start: 10-12-2022 End: 11-11-2022 take 1 tablet by mouth every eight hours as needed oxybutynin (DITROPAN) 5 mg tablet Take 1 tablet by mouth three times daily as needed for bladder spasm 42 tablet 0 10/12/2022 Active Start: 09-07-2022 take 1 tablet by [facility] every eight hours as needed oxybutynin (DITROPAN) 5 mg tablet Take 1 tablet by mouth three times daily as needed for bladder spasm 42 tablet 0 09/07/2022 Active Start: 03-31-2022 take 1 mg by mouth once daily oxybutynin 5 mg ER Tab mg tab(s), Oral, Daily, Refills(s) 0 Start Date: 03/31/22 Status: Ordered Comment on above: Take 1 tablet by [facility] three times daily as needed for bladder spasm 0.25 mg, 0.5 mg dose 1.5 ml semaglutide 1.34 mg/ml pen injector (20 sources) Start: 06-10-2022 OZEMPIC 0.25 mg or 0.5 mg(2 mg/1.5 mL) pen Start: 03-31-2022 inject 0.5 mg by sub cutaneous injection every week Ozempic 0.5 mg, SubCutaneous, qWeek, Refill(s) 0, Wednesday, Blood glucose Start Date: 03/31/22 Status: Ordered Start: 03-31-2022 Ozempic SubCut aneous, qWeek, Refill(s) 0 Start Date: 03/31/22 Status: Ordered Start: 02-16-2022 Ozempic (0.25 or 0.5 MG/DOSE) 2 MG/1.5ML Inject 0.5 weekly Subcutaneous once a week for 90 day(s) Jan, Active Ozempic (0.25 or 0.5 MG/DOSE) 2 MG/1.5ML Subcutaneous Solution Pen-injector iuse as directed Quantity: 0 Refills: 0 Ordered: 05-May-2022 DO Active tamsulosin hydrochloride 0.4 mg oral capsule (10 sources) alpha-Adrenergic Rebecca Start: 10-12-2022 End: 11-11-2022 tamsulosin (FLOMAX) 0.4 mg Take 1 capsule by mouth once daily 30 minutes after the same meal each day. 30 capsule 0 10/12/2022 Active Start: 09-07-2022 End: 10-07-2022 tamsulosin (FLOMAX) 0.4 mg T brandon 1 capsule by mouth once daily 30 minutes after the same meal each day. 30 capsule 0 09/07/2022 10/07/2022 Active Comment on above: Take 1 capsule by mo [facility] once daily 30 minutes after the same meal each day. Problems Active Problems Problem Classification Problem Date Documented Date Episodic/Chronic Acute and unspecified renal failure (1 source) Acute kidney failure, unspecified; Translations: [ACUTE KIDNEY FAILURE UNSPECIFIED] Onset: 2 Episodic Anxiety disorders (6 sources) Generalized anxiety disorder; Translations: [Generalized anxiety disorder] Onset: 2 Resolved: 2 Chronic Chronic kidney disease (4 sources) Chronic kidney disease stage 3A ; Translations: [Stage 3a chronic kidney disease] Onset: 2 Chronic Chronic kidney disease (7 sources) Chronic kidney disease; Translations: [CHRONIC KIDNEY DISEASE STAGE 3A] Onset: 2 Deficiency and other anemia (2 sources) Anemia of renal disease; Translations: [Anemia in chronic kidney disease] Chronic Deficiency and other anemia (6 sources) Anemia 03-31-2022 Episodic Deficiency and other anemia (1 source) Anemia, unspecified; Translations: [ANEMIA UNSPECIFIED] Onset: 2 Episodic Diabetes mellitus with complications (3 sources) Type 2 diabetes mellitus with diabetic chronic kidney disease; Translations: [Disorder of kidney due to diabetes mellitus] Onset: 2 Chronic Diabetes mellitus without complication (10 sources) Type 2 diabetes mellitus without complication; Translations: [Type 2 diabetes mellitus without complications] Chronic Essential hypertension (16 sources) Essential hypertension; Translations: [Essential (primary) hypertension] Onset: 2 Resolved: 2 Chronic Hypertension with complications and secondary hypertension (3 sources) Hypertensive chronic kidney disease with stage 1 through stage 4 chronic kidney disease, or unspecified chronic kidney disease; Translations: [Chronic kidney disease due to hypertension] Onset: 2 Chronic Induced (2 sources) Induced termination of complicated by urinary tract infection; Translations: [Urinary tract infection following (induced) termination of ] Onset: 3 Episodic Mood disorders (11 sources) Recurrent major depressive episodes, mild ; Translations: [Major depressive disorder, recurrent, mild] Onset: 2 Resolved: 2 Chronic Nephritis; nephrosis; renal sclerosis (2 sources) Atrophy of left kidney; Translations: [Atrophy of kidney (terminal)] Onset: 3 Chronic Osteoarthritis (6 sources) Arthritis 03-31-2022 Chronic Other aftercare (1 source) 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; 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] Onset: 2 Episodic Other diseases of kidney and ureters (2 sources) Secondary hyperparathyroidism; Translations: [Secondary hyperparathyroidism of renal origin] Chronic Other diseases of kidney and ureters (2 sources) Hydronephrosis; Translations: [Hydronephrosis with renal and ureteral calculous obstruction] Episodic Other endocrine disorders (1 source) Hormone increase; Translations: [Endocrine disorder, unspecified] Episodic Other gastrointestinal disorders (1 source) Bariatric surgery status; Translations: [BARIATRIC SURGERY STATUS] Onset: 2 Episodic Other hereditary and degenerative nervous system conditions (9 sources) Restless legs; Translations: [Restless legs syndrome] 04-17-2022 Chronic Other hereditary and degenerative nervous system conditions (2 sources) Restless legs syndrome Onset: 2 Resolved: 2 Chronic Other nutritional; endocrine; and metabolic disorders (1 source) Aciduria; Translations: [Disorder of amino-acid metabolism, unspecified] Chronic Other nutritional; endocrine; and metabolic disorders (1 source) Disorder of amino-acid metabolism, unspecified; Translations: [Aciduria (HCC)] Onset: 3 Chronic Other nutritional; endocrine; and metabolic disorders (1 source) Overweight in adulthood with body mass index of 25 or more but less than 30; Translations: [Overweight] Episodic Other screening for suspected conditions (not mental disorders or infectious disease) (2 sources) Patient encounter status; Translations: [Encounter for screening for other disorder] Episodic Other skin disorders (3 sources) Localized swelling, mass and lump, right upper limb; Translations: [LOC SWELL MASS LUMP RT UPPER LIMB] Onset: 2 Episodic Phlebitis; thrombophlebitis and thromboembolism (1 source) Phlebitis and thrombophlebitis of superficial vessels of right lower extremity; Translations: [PHLEBITIS AND TP SUP VES RT LOW EXT] Onset: 2 Episodic Residual codes; unclassified (4 sources) Insomnia; Translations: [Insomnia, unspecified] Episodic Unclassified (1 source) CONTACT W/AND (SUSP) EXPOS COVID-19; Translations: [CONTACT W/AND (SUSP) EXPOS COVID-19] Onset: 2 Varicose veins of lower extremity (4 sources) Varicose veins of bilateral lower extremities with pain; Translations: [VARICOSE VNS CHRIS LOW EXTREM W/PAIN] Onset: 2 Episodic Past or Other Problems Problem Classification Problem Date Documented Date Episodic/Chronic Abdominal pain (5 sources) Unspecified abdominal pain; Translations: [Left flank pain] Onset: 03-19-2022 Episodic Calculus of urinary tract (20 sources) Ureteric stone; Translations: [Calculus of ureter] Onset: 03-31-2022 Episodic Fluid and electrolyte disorders (6 sources) Sodium disorder; Translations: [Hyperosmolality and hypernatremia] Onset: 10-21-2022 Episodic Genitourinary symptoms and ill-defined conditions (20 sources) Abnormal urinalysis; Translations: [Unspecified abnormal findings in urine] Onset: 09-07-2022 Episodic Other diseases of kidney and ureters (3 sources) Hydronephrosis with renal and ureteral calculous obstruction; Translations: [HYDRONPHROS RENL AND URETRL CALCUL OBST] Onset: 03-25-2022 Episodic Other endocrine disorders (1 source) Endocrine disorder, unspecified; Translations: [Elevated parathyroid hormone] Onset: 09-07-2022 Episodic Unclassified (1 source) Never smoked tobacco; Translations: [Never a smoker] Results Test Name Value Interpretation Reference Range Facility US KIDNEY/BLADDERon 04-26-20 23 US KIDNEY/BLADDER * * *Final Report* * * DATE OF EXAM: Apr 26 2023 2:38PM TED 1055 - US KIDNEY/BLADDER / PROCEDURE REASON: Nephrolithiasis * * * * Physician Interpretation * * * * EXAMINATION: RENAL ULTRASOUND CLINICAL HISTORY: Nephrolithiasis status post bilateral kidney stone removal. TECHNIQUE: Sonography of the kidneys and urinary bladder was performed. Images were obtained and stored in a permanent archive. MQ: UR_1 COMPARISON: CT abdomen/pelvis 03/19/2022 RESULT: Right Kidney: -Renal length: 10.1 cm -Parenchyma: Normal parenchymal echogenicity. Normal parenchymal thickness. -Collecting system: No hydronephrosis. -Calculus: No echogenic, shadowing calculus. -Lesion: Midpole simple cyst measuring 1.7 cm. Left Kidney: Poorly visualized, patient with known severe left renal atrophy. Estimated length of 7.1 cm. -Parenchyma: Diffuse parenchymal thinning present. -Collecting system: No hydronephrosis. -Calculus: No echogenic, shadowing calculus. -Lesion: No obvious lesions. Bladder: Collapsed. IMPRESSION: No hydronephrosis or shadowing calculus. Stable severe left renal atrophy. Repairer Controller Tester: PSCB Transcribe Date/Time: Apr 26 2023 2:45P Dictated by : ALBERT FRIEDMAN MD This examination was interpreted and the report reviewed and electronically signed by: DAPHNE FAN MD on Apr 26 2023 4:07PM EST [id number] N Normal [facility] XR ABDOMEN 3V KUB W/OBLIQUES on 04-26-2023 XR ABDOMEN 3V KUB W/OBLIQUES * * *Final Report* * * DATE OF EXAM: Apr 26 2023 3:52PM AOX [id number] - XR ABDOMEN 3V KUB W/OBLIQUES / PROCEDURE REASON: Nephrolithiasis * * * * Physician Interpretation * * * * KUB WITH OBLIQUE VIEWS ON 04/26/2023 HISTORY: Nephrolithiasis COMPARISON: Outside CT 03/19/2022 TECHNIQUE: Supine and bilateral oblique abdomen, 3 view(s); 4 image(s). RESULT/ IMPRESSION: No abnormal calcifications seen over the kidneys or expected courses of the ureters. No dilated bowel loops. Surgical clips at the left mid and upper abdomen. Repairer Controller Tester: PSCB Transcribe Date/Time: Apr 26 2023 4:04P Dictated by : DAPHNE FAN MD This examination was interpreted and the report reviewed and electronically signed by: DAPHNE FAN MD on Apr 26 2023 4:11PM EST [id number] N Normal [facility] CNOVon 10-21-2022 CNOV Office Visit (UROSMN ) ELIZABETH IRVIN ([id number]) 1965 F Date Time Provider Department 10/21/22 12:15 PM SAMY ODONNELL During your visit today, we recorded the following information about you: Samy Odonnell MD 10/21/2022 12:53 PM Signed CYSTOSCOPY PROCEDURE [facility] NOTE Pertinent History and Physical Exam reviewed and is unchanged. Primary Diagnosis: Nephrolithiasis Procedure: Stent Extraction Informed Consent Discussed: Yes. Risks, benefits, alternatives and personnel discussed with patient who consents to proceed. Audible Time-Out: Yes Details of Procedure: TECHNIQUE: The procedure was fully explained to the patient, risks were reviewed. The patient was placed in the supine position. The genitalia were prepped with antiseptic soap per protocol, and the urethra was anesthetized with viscous 2% lidocaine. The flexible cystoscope was introduced into the urethra and advanced under direct vision with findings as outlined below. At the conclusion of the procedure, the cystoscope was withdrawn. Anesthetics given: 10 cc 2% Lidocaine-Urethral Operative Findings Urethra: Normal Bladder: Right stent removed without difficulty Radiologic Studies CT: N/A Urogram: N/A Urethrogram: N/A Cystogram: N/A Retrograde Pyelogram(s): None Ultrasound: None KUB: None Complications: None Recommendations: Discussed findings with patient, RTC in 6 wk for f/u (call me if probs), KUB at F/U, Renal Ultrasound at F/U, and Complete 24 hr urine stone panel prior to F/U Comments: well-tolerated; right mini-PCNL site well-healed; Post Procedure Evaluation Condition Post Procedure: satisfactory Post Procedure Medications: None Samy Odonnell MD Director, Surgical Stone Disease [facility] Pager [phone] 10/21/2022 Dana Renteria RN 10/21/2022 12:52 PM Signed Actual procedure/procedure scheduled: Yes Performing provider/scheduled provider: Yes Patient was roomed in: Q9- 05 Pets Salesperson offered:Patient declines Patient arrived in the room at: 1155 Patient ready for procedure: 1210 The procedure started at ( Time Only): 1240 The procedure ended at: 1241 Was the procedure delayed: Yes: Provider late: Provider with other patient on Q9 The patient left the procedure room at: 1251 Dana Renteria RN PRE PROCEDURE ASSESSMENT- Cysto with stent extraction Procedure Indication: Stent Extraction Latex Allergy: No Allergies reviewed and updated. Yes Heart valve replacement: No Joint replacement: No Back Office UA otained: no PROCEDURE PREP-Cysto with stent extraction Patient ID with two(2)identifiers verified by: Dana Renteria RN Pre-Procedure Antibiotics: None taken at home nor prior to procedure Patient Prep: Betadine Scrub to perineum and placement of Sterile Drape. COMPLETED Anesthetic Given:10 cc 2% Lidocaine jelly Dana Renteria RN UNIVERSAL PROTOCOL / SAFETY CHECKLIST Procedure to be performed: Stent Extraction Sign in Communication: Completed Time Out: Team Confirms the Correct Patient, Correct Procedure, Correct Site and Site Marking, Correct Position (if applicable). Sign Out Discussion: Completed Dana Renteria RN POST PROCEDURE NURSE ASSESSMENT Present along with physician during procedure exam. Dana Renteria RN Instruction sheet given and reviewed and patient verbalizes understanding: yes Current pain intensity is 0 on a 0-10 pain scale. Dana Renteria RN AMBULATORY PATIENT EDUCATION THE FOLLOWING WAS EVALUATED Motivation To Learn: Interested Family/Significant Other Support: None - Unavailable/disintere sted Cognitive Ability: Alert/Oriented Method of Instruction: Individual instruction Written instruction - handouts Verbal instruction The Following Influencing Factors Were Barriers To This Education Session: None The Following Physical Limitations Were Barriers To This Education Session: None Instruction Provided To: Patient Material Stockkeeper Yard Present: not applicable Discipline: Nursing Learning Topic: SURVIVAL SKILLS: Complication Prevention Symptom Management Patient Evaluation: Verbalizes understanding: Yes Supplemental Material Given: Written Material Instructed By Dana Renteria RN In Department Urology . Dana Renteria RN 10/21/2022 12:53 PM Signed UNIVERSAL PROTOCOL / SAFETY CHECKLIST Procedure to be Performed: cystoscopy with stent extraction Sign In: A Moment of CARE was completed. Personnel directly involved with the procedure wore the appropriate PPE (Personal Protective Equipment). Patient/Surrogate Stated/Verified: PATIENT VERIFIED(optional for EMERGENT procedures): Patient name, Date of , Relevant allergies, and The intended procedure Time Out Communication: Intended patient and procedure match the source documents. Consent documented and matches the intended procedure. Relevant labs, photos, and/or imag (more content not included)... Normal [facility] ANES POSTPROC EVALon 023 ANES POSTPROC EVAL HNO ID: [id number] Author: Gabi Dougherty MD Service: ? Author Type: Anesthesiologist Type: Anesthesia Postprocedure Evaluation Filed: 10/12/2022 3:28 PM Note Text: POST ANESTHESIA EVALUATION NOTE : 1965 Procedure Summary Date: 10/12/22 Room / Location: [address] Anesthesia Start: 728 Anesthesia Stop: 1029 Procedure: MINI PERC NEPHROLITHOTOMY LITHOTRIPSY,STONE EXTRACTION,ANTEGRADE URETEROSCOPY,STENT PLACEMENT WHEN PERFORMED INCD IMAGING UP TO 2cm (Right: Kidney) Diagnosis: Nephrolithiasis (Nephrolithiasis [N20.0]) Surgeons: Samy Odonnell MD Responsible Provider: Gabi Dougherty MD Anesthesia Type: general ASA Status: 2 Anesthesia Type: general Airway Type: ETT Last Vitals Vitals Value Taken Time BP 143/79 10/12/22 1354 Temp 36.3 ?C (97.3 ?F) 10/12/22 1235 HR SpO2 66 10/12/22 1302 Resp 16 10/12/22 1354 SpO2 99 % 10/12/22 1354 Post Anesthesia Patient Status Patient Evaluation: bedside. Anticipated Disposition: phase 2 then home. Neurological Status: aware and responsive. Pulmonary Status: breathing comfortably on room air Airway Control: returned to baseline unsupported. Cardiovascular Status: stable. Pain Management: clinically adequate Postoperative Hydration: acceptable. Intraoperative Events: no significant anesthesia events Post Operative Nausea/Vomiting Status: no significant post operative nausea or vomiting Recommendation: further care per PACU/ICU/floor team. Anesthesia Observations No Documentation SIGNATURE: Farhat Ashley MD PATIENT NAME: Elizabeth Irvin DATE: October 12, 2022 TIME: 3:28 PM CSN: [id number] Normal [facility] ANES PRE-OPon 10-12-2022 ANES PRE-OP HNO ID: [id number] Author: Gabi Dougherty MD Service: ? Author Type: Anesthesiologist Type: Anesthesia Preprocedure Evaluation Filed: 10/12/2022 9:09 AM Note Text: ANESTHESIOLOGY DAY OF SURGERY NOTE : 1965 Procedure Information Anesthesia Start Date/Time: 10/12/22728 Procedure: MINI PERC NEPHROLITHOTOMY LITHOTRIPSY,STONE EXTRACTION,ANTEGRADE URETEROSCOPY,STENT PLACEMENT WHEN PERFORMED INCD IMAGING UP TO 2cm (Right: Kidney) Location: MAIN OR[facility] Surgeons: Smay Odonnell MD Estimated body mass index is 23.74 kg/m? as calculated from the following: Height as of 09/28/22: 160 cm (5' 3 ). Weight as of 09/28/22: 60.8 kg (134 lb). Most recent hematocrit and potassium results: Hematocrit 31.4 09/28/2022 Potassium 5.0 09/28/2022 Relevant Problems No relevant active problems I - PHYSICAL EVALUATION AIRWAY Patient intubated: No. Tracheostomy tube not present Mallampati: II. TM distance: >3 FB. Neck ROM: full ROM without neurological symptoms. Mouth opening: adequate. Short neck: no. Thick neck: no Lip Bite Test: II Microretrognathia/Ravinder ronagthia/Recessed Chin: No DENTAL Dental findings: teeth intact. Additional exam findings: no II - ANESTHESIA PLAN ASA Score: 2 Anesthetic Plan: general Airway type: ETT The patient is not a current smoker. NPO Status: adequate Beta Rebecca Monitoring Plan Monitoring plan: standard ASA. Post Procedure Analgesic Plan Postoperative analgesic plan: multimodal analgesia. Informed Consent Anesthetic risks, benefits, alternatives, personnel and consent discussed: yes. Patient / Responsible Constitution Party agrees to proceed: yes Patient / Surrogate agrees to blood products: Yes DNR status not reviewed with patient and/or family prior to surgery. Significant changes in the patient condition since the History and Physical, not otherwise documented in primary service progress note: no. Vitals Value Taken Time BP 139/83 10/12/2259 Pulse 70 10/12/2259 Resp 20 10/12/2259 Temp 37.1 ?C (98.8 ?F) 10/12/22558 SpO2 100 % 10/12/22558 Facility-Administered Medications as of 10/12/2022 Medication Dose Route Frequency - lidocaine (PF) 10 mg/mL (1 %) 1-2 mg injection (XYLOCAINE) 0.1-0.2 mL INTRADERMAL PRN Or - lidocaine 1% 0.25 mL subcutaneous j-tip syringe (XYLOCAINE) 0.25 mL SUBCUTANEOUS PRN - lactated ringers iv infusion 5-30 mL/hr INTRAVENOUS CONTINUOUS - NaCl 0.9% iv flush bag 20 mL INTRAVENOUS PRN - [COMPLETED] ceFAZolin iv piggyback 2 g in D5W (iso-osmotic) 100 mL (ANCEF) 2 g INTRAVENOUS Pre-Op Once Outpatient Medications as of 10/12/2022 Medication Sig - cephALEXin (KEFLEX) 500 mg capsule Take 1 capsule by mouth three times daily. - tamsulosin (FLOMAX) 0.4 mg Take 1 capsule by mouth once daily 30 minutes after the same meal each day. - oxybutynin (DITROPAN) 5 mg tablet Take 1 tablet by mouth three times daily as needed for bladder spasm - [] docusate sodium (COLACE) 100 mg capsule Take 1 capsule by mouth twice daily. - lisinopril (ZESTRIL, PRINIVIL) 20 mg tablet Take by mouth. - DULoxetine (CYMBALTA) 60 mg capsule - rOPINIRole (REQUIP) 1 mg tablet - OZEMPIC 0.25 mg or 0.5 mg(2 mg/1.5 mL) pen I have interviewed and examined the patient. I have reviewed the medical record and/or the pre-anesthesia evaluation, pertinent labs, and test results. This contains updated information obtained within 48 hours of Surgery/Procedure. SIGNATURE: Farhat Ashley MD PATIENT NAME: Elizabeth Irvin DATE: October 12, 2022 TIME: 9:08 AM CSN: [id number] Normal [facility] Bacteria Ur Culton 3 Bacteria identified Cx Nom (U) CULTURE, URINE: No growth (<1,000 CFU/ml) Normal [facility] Comment on above: Performed By: #### 6 30-4 ####[facility] [id number] [address] OF [facility] CALCULI ANALYSISon 3 Calculus analysis [Interp] Normal [facility] Comment on above: Order Comment: Speci men Type: CALCULUS SPECIMENOrdering Facility: [facility] Address: [address] [place] [address] Result Comment: This test was developed and its performance characteristics determined by [facility] [place] (-[facility]). It has not been cleared or approved by the FDA. -[facility] is regulated under CLIA as qualified to perform high-complexity testing. This test is used for clinical purposes. It should not be regarded as investigational or for research. Performed By: #### C SA ####[facility] [id number] [address] [place] [facility] CALCULUS [place] Normal [facility] Comment on above: Order Comment: Speci men Type: CALCULUS SPECIMENOrdering Facility: [facility] Address: [address] [place] [address] Performed By: #### C SA ####[facility] [id number] [address] OF [facility] CALCULUS COMPOSITION 1 70% Calcium Oxala te Monohydrate Normal [facility] Comment on above: Order Comment: Speci men Type: CALCULUS SPECIMENOrdering Facility: [facility] Address: [address] [place], [place] [address] Performed By: #### C SA ####[facility] [id number] [address] [place] CALCULUS COMPOSITION 2 20% Calcium Oxala te Dihydrate Normal [facility] Comment on above: Order Comment: Speci men Type: CALCULUS SPECIMENOrdering Facility: [facility] Address: [address] [place], [place] [address] Performed By: #### C SA ####[facility] [id number] [place] [address] [place] CALCULUS COMPOSITION 3 10% Minor Components Normal [facility] Comment on above: Order Comment: Speci men Type: CALCULUS SPECIMENOrdering Facility: [facility] Address: [address] [place], [place] [address] Performed By: #### C SA ####[facility] [id number] [address] [place] CALCULUS SIZE AND WT Multiple pieces. 0.0655 GRAMS Normal [facility] Comment on above: Order Comment: Speci men Type: CALCULUS SPECIMENOrdering Facility: [facility] Address: [address] [place], [place] [address] Performed By: #### C SA ####[facility] [id number] [address] [place] CALCULUS TYPE CALCULI/CALCULUS Normal [facility] Comment on above: Order Comment: Speci men Type: CALCULUS SPECIMENOrdering Facility: [facility] Address: [address] [place] [address] Performed By: #### C SA ####[facility] [id number] [address] [place] OPERATIVE NOon 10-12-2022 OPERATIVE NO HNO ID: [id number] Author: Samy Odonnell MD Service: Urology Author Type: Physician Type: Operative Report Filed: 10/21/2022 11:54 AM Note Text: OPERATIVE/PROCEDURE REPORT LOG ID: [id number] Surgery/Procedure Date: 10/12/2022 Incision/Procedure Start Time: 8:36 AM Incision Close/Procedure End Time: 10:05 AM Surgeon(s)/Procedural ist(s) and Tar Kettle Runner(s): Surgeon(s) and Role: * Samy Odonnell MD - Primary * Nori Jefferson MD - Resident - Assisting Procedure(s): Right Flexible ureteroscopy Percutaneous renal access Dilation of renal access tract Right percutaneous nephrolithotomy - Mini PCNL (16Fr) 2 cm max dimension [id number] right JJ stent insertion Physician time for fluoroscopic imaging and interpretation <1hr Anatomic Site: Right kidney Approach: Endoscopic Anesthesia: General Operative Indications: This is a 56 year old female with a right renal pelvis stone (15mm). After discussing the risks, benefits, and alternatives of the procedure the patient has elected to pursue management of their condition via the aforementioned surgery. Intraoperative Findings: Stone Cross[place]: Primary stone 15 mm renal pelvis; Additional stone(s) none Access: 1 tract(s), combined fluoroscopic/ultrasou nd-guided access with endoscopic visualization, lower pole calyx; 2 puncture attempt(s) Sheath: 18Fr ClearPetra mini-PCNL sheath, 5 mm incision Lithotriptor: N/A Laser: 365-micron SOLTIVE thulium fiber laser; 0.6 J and 14 Hz; Total energy: 11.8 W Irrigation: Thermedx FluidSmart fluid management system; max pressure 200 mmHg Anatomic Findings: Unremarkable anatomy Other: none Anticipated SFR: 95% Procedure Details: The patient was correctly identified and the operative plan was confirmed with the patient and the operative team. A weight appropriate dose of prophylactic antibiotics was administered intravenously prior to the procedure and sequential compression devices were applied to the lower extremities and activated prior to induction of anesthesia. General anesthesia was induced. The patient was then placed in the prone position. All pressure points were padded per protocol and the operative area was prepped and draped in the standard sterile fashion. A flexible cystoscope was used to perform cystourethroscopy. A 5-persian open-ended ureteral catheter was used to intubate the right ureteral orifice and place a super stiff wire to the kidney. A second stiff glide wire was then placed in the kidney using a dual-lumen catheter. Superstiff wire secured to the drape for safety. A 14 Fr billings was inserted into the bladder. A 11/13F x 28 cm ureteral access sheath was then advanced over the stiff glide wire up to the level of the proximal ureter. Flexible ureteroscopy was performed noting renal pelvis stone. The ureteroscope was manipulated in an appropriate calyx for percutaneous access in the lower pole. The 18-gauge Chiba percutaneous access needle was then used to access the calyx under direct vision with fluoroscopic and BK US aid. A 0.038 glidewire was advanced through the needle sheath, grasped using a halo wire, and pulled out through the urethral meatus to gain jfeywya-jnn-rgtqurg access. A 4-Togolese ureteral glide catheter was used to exchange the zeekeuk-oah-siseetf guidewire for an Amplatz superstiff wire. The 8/10 Fr dilator was then used to gently dilate the tract. The tract was incised at the skin for 5 mm. Coaxial dilators where then used to dilate tract with 12Fr and 14Fr under fluoroscopic guidance. The 16/17Fr x15cm ClearPetra Sheath was then advanced over the wire and noted to enter the collecting system fluoroscopically. Rigid nephroscopy was then performed, and the renal pelvis stone was visualized broken using the Thulium 365 micron laser fiber. Stone pieces were removed with suction device of ClearPetra. Flexible nephroscopy again, one stone fragment removed with halo basket, and confirmed there was no significant stone burden remaining. The ureteral access sheath and Billings were then removed and a 6 F x 24cm double-J stent was placed over the Amplatz safety wire and had good curls in both the kidney and the bladder. A 20 F Billings catheter was placed. All wires were removed. The safety Amplatz super stiff wire was removed antegrade by placing a glide catheter over to reduce friction with ureteral stent. Dressings were applied. Fluoroscopic interpretation of images was performed to evaluate for guidance of the ureteroscope, accurate guidewire placement, monitor tract dilation and confirm proper stent positioning. The patient tolerated the procedure well, emerged from anesthesia without incident, and was transferred to PACU in stable condition. Pre-Op/Pre-Procedure Diagnosis: Pre-Op Diagnosis Codes: * Nephrolithiasis [N20.0] Post-Op/Post-Procedur e Diagnosis: Post-Op Diagnosis Codes: * Nephrolithiasis [N20.0] Estimated Blood Loss: 5 mls S (more content not included)... Normal [facility] Bacteria Ur Culton 3 Bacteria identified Cx Nom (U) ORGANISM ID: 1 10,000 -<50,000 CFU/ml Mixed microbiota No further workup. Mixed microbiota can be due to???urine???contamin ation with skin bacteria at time of collection or presence of a long-term urinary catheter. If a new culture is needed, please consider re-education of the patient on proper midstream collection technique or straight catheterization for???urine???collect ion. Normal [facility] Comment on above: Performed By: #### 6 30-4 ####[facility] [id number] [place] [address] [place] Basic metabolic 2000 panelon 09-28-2022 Anion gap [Moles/Vol] 8 mmol/L Low 9-18 [facility] Comment on above: Order Comment: Speci men Type: BLOOD SPECIMEN Ordering Facility: [facility] Address: [address] [address] Performed By: #### 2 4321-2 #### [facility] CLIA [id number] [address] [place], [place] [address] Calcium [Mass/Vol] 9.5 mg/dL Normal 8.5-10.2 [facility] Comment on above: Order Comment: Speci men Type: BLOOD SPECIMEN Ordering Facility: [facility] Address: [address] [address] Performed By: #### 2 4321-2 #### [facility] CLIA [id number] [address] [place] [address] Chloride [Moles/Vol] 108 mmol/L High 97-105 [facility] Comment on above: Order Comment: Speci men Type: BLOOD SPECIMEN Ordering Facility: [facility] Address: [address] [address] Performed By: #### 2 4321-2 #### [facility] CLIA [id number] [address] [place] [address] CO2 [Moles/Vol] 24 mmol/L Normal 22-30 [facility] Comment on above: Order Comment: Speci men Type: BLOOD SPECIMEN Ordering Facility: [facility] Address: [address] [address] Performed By: #### 2 4321-2 #### [facility] CLIA [id number] [address] [place] [address] Creatinine [Mass/Vol] 1.62 mg/dL High 0.58-0.96 [facility] Comment on above: Order Comment: Speci men Type: BLOOD SPECIMEN Ordering Facility: [facility] Address: [address] [address] Performed By: #### 2 4321-2 #### [facility] CLIA [id number] [address] [place] [address] ESTIMATED GLOMERULAR FILTRATION RATE 37 mL/min/1.73m??? Low >=60 [facility] Comment on above: Order Comment: Speci men Type: BLOOD SPECIMEN Ordering Facility: [facility] Address: [address] [place] [address] Result Comment: Reema mated Glomerular Filtration Rate (eGFR) is calculated using the 2020 CKD-EPI creatinine equation. This equation utilizes serum creatinine, sex, and age as parameters. The creatinine assay has traceable calibration to isotope dilution-mass spectrometry. Refer to KDIGO guidelines for clinical interpretation. In patients with unstable renal function, e.g. those with acute kidney injury, the eGFR may not accurately reflect actual GFR. Performed By: #### 2 4321-2 #### [facility] CLIA [id number] [address] [place] [address] Glucose [Mass/Vol] 89 mg/dL Normal 74-99 [facility] Comment on above: Order Comment: Tim jeff Type: BLOOD SPECIMEN Ordering Facility: [facility] Address: [address] [address] Result Comment: The [place] Diabetes Association (ADA) provides guidance for cutoff values for fasting glucose and random glucose. The ADA defines fasting as no caloric intake for at least 8 hours. Fasting plasma glucose results between 100 to 125 mg/dL indicate increased risk for diabetes (prediabetes). Fasting plasma glucose results greater than or equal to 126 mg/dL meet the criteria for diagnosis of diabetes. In the absence of unequivocal hyperglycemia, results should be confirmed by repeat testing. In a patient with classic symptoms of hyperglycemia or hyperglycemic crisis, random plasma glucose results greater than or equal to 200 mg/dL meet the criteria for diagnosis of diabetes. Reference: Standards of Medical Care in Diabetes 2016, [place] [employer] Association. Diabetes Care. 2016.39(Suppl 1). Performed By: #### 2 4321-2 #### [facility] CLIA [id number] [address] [place] [address] Potassium [Moles/Vol] 5.0 mmol/L Normal 3.7-5.1 [facility] Comment on above: Order Comment: Tim jeff Type: BLOOD SPECIMEN Ordering Facility: [facility] Address: [address] [address] Performed By: #### 2 4321-2 #### [facility] CLIA [id number] [address] [place] [address] Sodium [Moles/Vol] 140 mmol/L Normal 136-144 [facility] Comment on above: Order Comment: Tim jeff Type: BLOOD SPECIMEN Ordering Facility: [facility] Address: [address] Performed By: #### 2 4321-2 #### [facility] CLIA [id number] [address] [place] [address] Urea nitrogen [Mass/Vol] 20 mg/dL Normal 7-21 [facility] Comment on above: Order Comment: Nicolei men Type: BLOOD SPECIMEN Ordering Facility: [facility] Address: [address] [address] Performed By: #### 2 4321-2 #### [facility] CLIA [id number] [address] [place] [address] CBC W Auto Differential pane l (Bld)on 09-28-2022 Basophils (Bld) [#/Vol] 0.04 10*3/uL Normal <0.11 [facility] Comment on above: Order Comment: Speci men Type: BLOOD SPECIMENOrdering Facility: [facility] Address: [address] [address] Performed By: #### 5 7021-8 ####[facility] [id number] [place] [address] Basophils/100 WBC (Bld) 1.0 % Normal [facility] Comment on above: Order Comment: Speci men Type: BLOOD SPECIMENOrdering Facility: [facility] Address: [address] [place] [address] Performed By: #### 5 7021-8 ####[facility] [id number] [place] [address] Differential cell count method Nom (Bld) Auto Normal [facility] Comment on above: Order Comment: Speci men Type: BLOOD SPECIMENOrdering Facility: [facility] Address: [address] [place] [address] Performed By: #### 5 7021-8 ####[facility] [id number] [place] [address] Eosinophils (Bld) [#/Vol] 0.12 10*3/uL Normal <0.46 [facility] Comment on above: Order Comment: Speci men Type: BLOOD SPECIMENOrdering Facility: [facility] Address: [address] [place] [address] Performed By: #### 5 7021-8 ####[facility] [id number] [place] [address] Eosinophils/100 WBC (Bld) 3.1 % Normal [facility] Comment on above: Order Comment: Speci men Type: BLOOD SPECIMENOrdering Facility: [facility] Address: [address] [place] [address] Performed By: #### 5 7021-8 ####[facility] [id number] [place] [address] Erythrocyte distribution width (RBC) [Ratio] 14.3 % Normal 11.5-15.0 [facility] Comment on above: Order Comment: Speci men Type: BLOOD SPECIMENOrdering Facility: [facility] Address: [address] [place] [address] Performed By: #### 5 7021-8 ####[facility] [id number] [place] [address] Hematocrit (Bld) [Volume fraction] 31.4 % Low 36.0-46.0 [facility] Comment on above: Order Comment: Speci men Type: BLOOD SPECIMENOrdering Facility: [facility] Address: [address] [place] [address] Performed By: #### 5 7021-8 ####[facility] [id number] [place] [address] Hemoglobin (Bld) [Mass/Vol] 9.3 g/dL Low 11.5-15.5 [facility] Comment on above: Order Comment: Speci men Type: BLOOD SPECIMENOrdering Facility: [facility] Address: [address] [place] [address] Performed By: #### 5 7021-8 ####[facility] [id number] [place] [address] Immature granulocytes (Bld) [#/Vol] 10*3/uL Normal <0.10 [facility] Comment on above: Order Comment: Speci men Type: BLOOD SPECIMENOrdering Facility: [facility] Address: [address] [place] [address] Performed By: #### 5 7021-8 ####[facility] [id number] [place] [address] Immature granulocytes/100 WBC (Bld) 0.3 % Normal [facility] Comment on above: Order Comment: Speci men Type: BLOOD SPECIMENOrdering Facility: [facility] Address: [address] [place] [address] Performed By: #### 5 7021-8 ####[facility] [id number] [place] [address] Lymphocytes (Bld) [#/Vol] 1.16 10*3/uL Normal 1.00-4.00 [facility] Comment on above: Order Comment: Speci men Type: BLOOD SPECIMENOrdering Facility: [facility] Address: [address] [place] [address] Performed By: #### 5 7021-8 ####[facility] [id number] [place] [address] Lymphocytes/100 WBC (Bld) 30.4 % Normal [facility] Comment on above: Order Comment: Speci men Type: BLOOD SPECIMENOrdering Facility: [facility] Address: [address] [place] [address] Performed By: #### 5 7021-8 ####[facility] [id number] [place] [address] MCH (RBC) [Entitic mass] 27.3 pg Normal 26.0-34.0 [facility] Comment on above: Order Comment: Speci men Type: BLOOD SPECIMENOrdering Facility: [facility] Address: [address] [place] [address] Performed By: #### 5 7021-8 ####[facility] [id number] [place] [address] MCHC (RBC) [Mass/Vol] 29.6 g/dL Low 30.5-36.0 [facility] Comment on above: Order Comment: Speci men Type: BLOOD SPECIMENOrdering Facility: [facility] Address: [address] [address] Performed By: #### 5 7021-8 ####[facility] LABCLIA [id number] [place] [address] MCV (RBC) [Entitic vol] 92.1 fL Normal 80.0-100.0 [facility] Comment on above: Order Comment: Speci men Type: BLOOD SPECIMENOrdering Facility: [facility] Address: [address] [address] Performed By: #### 5 7021-8 ####[facility] LABCLIA [id number] [place] [address] Monocytes (Bld) [#/Vol] 0.32 10*3/uL Normal <0.87 [facility] Comment on above: Order Comment: Speci men Type: BLOOD SPECIMENOrdering Facility: [facility] Address: [address] [address] Performed By: #### 5 7021-8 ####[facility] LABCLIA [id number] [place] [address] Monocytes/100 WBC (Bld) 8.4 % Normal [facility] Comment on above: Order Comment: Speci men Type: BLOOD SPECIMENOrdering Facility: [facility] Address: [address] [address] Performed By: #### 5 7021-8 ####[facility] LABCLIA [id number] [place] [address] Neutrophils (Bld) [#/Vol] 2.17 10*3/uL Normal 1.45-7.50 [facility] Comment on above: Order Comment: Speci men Type: BLOOD SPECIMENOrdering Facility: [facility] Address: [address] [place] [address] Performed By: #### 5 7021-8 ####[facility] LABCLIA [id number] [place] [address] Neutrophils/100 WBC (Bld) 56.8 % Normal [facility] Comment on above: Order Comment: Speci men Type: BLOOD SPECIMENOrdering Facility: [facility] Address: [address] [place] [address] Performed By: #### 5 7021-8 ####[facility] LABCLIA [id number] [place] [address] Nucleated RBC (Bld) [#/Vol] 10*3/uL Normal <0.01 [facility] Comment on above: Order Comment: Speci men Type: BLOOD SPECIMENOrdering Facility: [facility] Address: [address] [place] [address] Performed By: #### 5 7021-8 ####[facility] LABCLIA [id number] [place] [address] Nucleated RBC/100 WBC (Bld) [Ratio] 0.0 /100 WBC Normal [facility] Comment on above: Order Comment: Speci men Type: BLOOD SPECIMENOrdering Facility: [facility] Address: [address] [place] [address] Performed By: #### 5 7021-8 ####[facility] LABCLIA [id number] [place] [address] Platelet mean volume (Bld) [Entitic vol] 8.7 fL Low 9.0-12.7 [facility] Comment on above: Order Comment: Speci men Type: BLOOD SPECIMENOrdering Facility: [facility] Address: [address] [place] [address] Performed By: #### 5 7021-8 ####[facility] LABIA [id number] [place] [address] Platelets (Bld) [#/Vol] 338 10*3/uL Normal 150-400 [facility] Comment on above: Order Comment: Speci men Type: BLOOD SPECIMENOrdering Facility: [facility] Address: [address] [address] Performed By: #### 5 7021-8 ####[facility] [id number] [place] [address] RBC (Bld) [#/Vol] 3.41 10*6/uL Low 3.90-5.20 [facility] Comment on above: Order Comment: Speci men Type: BLOOD SPECIMENOrdering Facility: [facility] Address: [address] [address] Performed By: #### 5 7021-8 ####[facility] [id number] [place] [address] WBC (Bld) [#/Vol] 3.82 10*3/uL Normal 3.70-11.00 [facility] Comment on above: Order Comment: Speci men Type: BLOOD SPECIMENOrdering Facility: [facility] Address: [address] [place] [address] Performed By: #### 5 7021-8 ####[facility] [id number] [place] [address] CNOVon 09-28-2022 CNOV Office Visit (UROLMN ) ELIZABETH IRVIN ([id number]) 1965 F Date Time Provider Department 09/28/22 1:30 PM MARLEY CHOE During your visit today, we recorded the following information about you: Pulse Blood pressure Weight Height 75/minute 119/79 60.8 kg 1.6 m Marley Gutierrez PA-C 09/28/2022 2:56 PM Signed [facility] PRE-OP NOTE Elizabeth Irvin is a 56 year old female. Pre-op Date: September 28, 2022 Date of Procedure: 10/12/22 Procedure/Surgery: MINI PERC NEPHROLITHOTOMY LITHOTRIPSY,STONE EXTRACTION,ANTEGRADE URETEROSCOPY,STENT PLACEMENT WHEN PERFORMED INCD IMAGING UP TO 2cm Laterality: Right Diagnosis: Nephrolithiasis Primary Surgeon: MD Blas, Samy BP 119/79 (BP Site: Left Arm, BP Position: Sitting, BP Cuff Size: Regular Adult) Pulse 75 Ht 160 cm (5' 3 ) Wt 60.8 kg (134 lb) BMI 23.74 kg/m? Pain Assessment: Are you currently having pain? No 0 on a scale of 0 to 10 Surgical Guide Book Status: Patient has been given guide previously, but guide is at home. Allergies Reviewed: Yes Medications Reviewed: Yes Is patient currently on oral steroids?: No Has the patient had a UTI in the past month?: No. Does the patient have any artificial joints (last 2 years), metal parts, pacemakers or cardiac/ureteral stents in place?: No Does the patient have diabetes?: No Is the patient routinely taking anticoagulants?: No. Can the patient have an IV put in either arm?: Yes Urine Dip Complete?: Yes URINE CULTURE COMPLETE?: Yes Ostomy/Stoma Nurse appointment made/completed: N/A IMP[facility]/Medical Clearance: Cleared per [facility] - N/A [facility]: Cleared per [facility] - N/A All testing on cureform has been scheduled: Yes Consent Signed: Consent not in Epic. DOS Orders Placed and Signed: Yes. Pre-op HANDP Done by Physician Tar Kettle Runner: Yes. PATIENT INSTRUCTIONS FOR SURGERY 1.) DO NOT HAVE ANYTHING TO EAT OR DRINK AFTER MIDNIGHT THE DAY BEFORE SURGERY except for certain morning medications as instructed by the doctor. Candy, mints, gum, and smoking are NOT permitted. If the surgery is scheduled for the afternoon, you may have water during the morning of surgery if permitted by your surgeon. 2.) Medications to be taken on the morning of surgery with a few sips of water: repinirole, duloxetine 3.) Please bring all your prescribed inhalers (if you have any you normally take) to the hospital. 4.) Arrival time: Call for arrival. 5.) Prep given: No 6.) Lovenox instructions given: N/A 7.) Patient reminded that surgery time provided day before surgery is tentative based on potential changes with transplants. Recommendations: This patient is optimally prepared for surgery. Marley Gutierrez PA-C Electronically signed Marley Gutierrez PA-C 09/28/2022 2:56 PM Signed UROLOGY SURGICAL HANDP SERVICE DATE: 09/28/2022 SERVICE TIME: 1:30PM REFERRING PROVIDER: No referring provider defined for this encounter. PCP: No primary care provider on file. GENDER: Female SUBJECTIVE CHIEF COMPLAINT: Pre-op exam HISTORY OF PRESENT ILLNESS: Ms. Irvin is a 56 year old female who presents for preoperative exam prior to Right MINI PERC NEPHROLITHOTOMY LITHOTRIPSY,STONE EXTRACTION,ANTEGRADE URETEROSCOPY,STENT PLACEMENT WHEN PERFORMED INCD IMAGING UP TO 2cm with Dr. Odonnell on 10/12/22. FUNCTIONAL STATUS: Walk a block or two on level ground (2.75 METs) Do moderate work around the house such as vacuuming, sweeping floors, or carrying in groceries (3.50 METs) Do yardwork, such as raking leaves, weeding,or pushing a power mower (4.50 METs) Climb a flight of stairs or walk up a hill (5.50 METs) History reviewed. No pertinent past medical history. History reviewed. No pertinent surgical history. History reviewed. No pertinent family history. Social History Tobacco Use Smoking status: Never Passive exposure: Current Smokeless tobacco: Never REVIEW OF SYSTEMS: General: General: Well developed, well nourished. No acute distress HEENT: Negative for sore throat, difficulty swallowing. Negative for frequent or significant headaches, changes in vision or hearing. Cardiovascular: + HTN. No history of angina, CHF, CT, cardiac surgery of stents. Respiratory: Negative for current cough, dyspnea. No hx of pneumonia in the past six weeks Gastrointestinal: + gastric bypasshx. No history of GERD, PUD, abd pain, difficulty swallowing, GI bleed. Renal: Negative for renal failure and No history of dialysis Musculoskeletal: Negative for joint pain or swelling, back pain or muscle pain. Skin: Negative for lesions, rash and itching. Psychological: No history of psychiatric symptoms or problems. Neurologic: No history of TIA's, stroke, TRUST AND ESTATES PARALEGAL tumor, impaired sensorium, hemiplegia or paraplegia No neurological symptoms or problems. Hematology/Oncology: No history of bleeding or clotting disord (more content not included)... Normal [facility] HISTORY PHYSICALon HISTORY PHYSICAL HNO ID: [id number] Author: Marley Peres PA-C Service: ? Author Type: Physician Tar Kettle Runner Type: HANDP Filed: 09/28/2022 2:56 PM Note Text: UROLOGY SURGICAL HANDP SERVICE DATE: 09/28/2022 SERVICE TIME: 1:30PM REFERRING PROVIDER: No referring provider defined for this encounter. PCP: No primary care provider on file. GENDER: Female SUBJECTIVE CHIEF COMPLAINT: Pre-op exam HISTORY OF PRESENT ILLNESS: Ms. Irvin is a 56 year old female who presents for preoperative exam prior to Right MINI PERC NEPHROLITHOTOMY LITHOTRIPSY,STONE EXTRACTION,ANTEGRADE URETEROSCOPY,STENT PLACEMENT WHEN PERFORMED INCD IMAGING UP TO 2cm with Dr. Odonnell on 10/12/22. FUNCTIONAL STATUS: Walk a block or two on level ground (2.75 METs) Do moderate work around the house such as vacuuming, sweeping floors, or carrying in groceries (3.50 METs) Do yardwork, such as raking leaves, weeding,or pushing a power mower (4.50 METs) Climb a flight of stairs or walk up a hill (5.50 METs) History reviewed. No pertinent past medical history. History reviewed. No pertinent surgical history. History reviewed. No pertinent family history. Social History Tobacco Use Smoking status: Never Passive exposure: Current Smokeless tobacco: Never REVIEW OF SYSTEMS: General: General: Well developed, well nourished. No acute distress HEENT: Negative for sore throat, difficulty swallowing. Negative for frequent or significant headaches, changes in vision or hearing. Cardiovascular: + HTN. No history of angina, CHF, CT, cardiac surgery of stents. Respiratory: Negative for current cough, dyspnea. No hx of pneumonia in the past six weeks Gastrointestinal: + gastric bypasshx. No history of GERD, PUD, abd pain, difficulty swallowing, GI bleed. Renal: Negative for renal failure and No history of dialysis Musculoskeletal: Negative for joint pain or swelling, back pain or muscle pain. Skin: Negative for lesions, rash and itching. Psychological: No history of psychiatric symptoms or problems. Neurologic: No history of TIA's, stroke, TRUST AND ESTATES PARALEGAL tumor, impaired sensorium, hemiplegia or paraplegia No neurological symptoms or problems. Hematology/Oncology: No history of bleeding or clotting disorder. Pt is not taking anti-coagulation or platelet medications. No history of hematological symptoms or problems. Endocrine: + diabetes. Negative for excessive sweating, thirst or hunger PHYSICAL EXAM: General Appearance/ Constitutional: Well developed, well nourished, and in no apparent distress Head and Neck normal, no jugular venous extension, no thyromegaly, and no palpable mass Eyes: Pupils are equally round and reactive to light. Extraocular movements are intact. Respiratory: Clear to auscultation AND percussion Cardiovascular: Normal, Regular rate and rhythm, and No murmurs GI: Soft, Non-tender, No masses, hepatosplenomegaly, and No lymphadenopathy Extremities: Radial and pedal pulses +2, no edema, extremities WNL Back: Normal back and mobility Neurological: Normal cognition and motor skills. Skin: Color, texture, turgor normal. VITALS: BP 119/79 (BP Site: Left Arm, BP Position: Sitting, BP Cuff Size: Regular Adult) Pulse 75 Ht 160 cm (5' 3 ) Wt 60.8 kg (134 lb) BMI 23.74 kg/m? Temperature Max: @TMAXREFRESH(24)@ ALLERGIES: ALLERGIES Allergen Reactions Prednisone Hives Valacyclovir Hives LABS: BUN (mg/dL) Date Value 09/28/2022 20 07/14/2022 28 Creatinine (mg/dL) Date Value 09/28/2022 1.62 07/14/2022 2.85 No results found for: PSA Glucose, Urine (no units) Date Value 09/07/2022 Negative Bilirubin, Urine (no units) Date Value 09/07/2022 Negative Ketones, Urine (no units) Date Value 09/07/2022 Negative Specific [place], Ur (no units) Date Value 09/07/2022 1.014 Hemoglobin/Blood,Ur (no units) Date Value 09/07/2022 Trace pH, Urine (no units) Date Value 09/07/2022 6.0 Protein, Urine (no units) Date Value 09/07/2022 Trace Nitrites (no units) Date Value 09/07/2022 Negative WBC, Urine (no units) Date Value 09/07/2022 >25 /HPF (A) Color (no units) Date Value 09/07/2022 Yellow Clarity (no units) Date Value 09/07/2022 Cloudy (A) MEDICATIONS: (Not in a hospital admission) Current Outpatient Medications Medication Sig cephALEXin (KEFLEX) 500 mg capsule Take 1 capsule by mouth three times daily. tamsulosin (FLOMAX) 0.4 mg Take 1 capsule by mouth once daily 30 minutes after the same meal each day. oxybutynin (DITROPAN) 5 mg tablet Take 1 tablet by mouth three times daily as needed for bladder spasm docusate sodium (COLACE) 100 mg capsule Take 1 capsule by mouth twice daily. lisinopril (ZESTRIL, PRINIVIL) 20 mg tablet Take by mouth. DULoxetine (CYMBALTA) 60 mg capsule rOPINIRole (REQUIP) 1 mg tablet OZEMPIC 0.25 mg or 0.5 mg(2 mg/1.5 mL) pen No current facility-administered medications for this visit. DIAGNOSIS, ASSESSMENT AND (more content not included)... Normal [facility] ELIZABETH IRVIN ([id number]) 1965 F Date Time Provider Department 09/24/22 TERESITA ESTEVES During your visit today, we recorded the following information about you: Teresita Esteves RN 09/24/2022 4:44 PM Signed Called patient to review PTH and advise per Marley that an endocrinology consult was being placed. No answer, left. Teresita Estvees RN Allergies As of Date: 09/24/2022 Noted Allergy Reaction PREDNISONE 04/24/2022 4 - Hives VALACYCLOVIR 04/24/2022 4 - Hives Date Reviewed: 09/16/2022 Reviewed by: Dede Story RN - Fully Assessed Reason for Visit: Results [95] Primary Visit Diagnosis:Hyperparath yroid (HCC) [E21.3] Order(s):CONSULT TO ENDOCRINOLOGY [9007] Order #: [id number]: 1 FUTURE Prescriptions as of 09/24/2022 - cephALEXin (KEFLEX) 500 mg capsule Take 1 capsule by mouth three times daily. - tamsulosin (FLOMAX) 0.4 mg Take 1 capsule by mouth once daily 30 minutes after the same meal each day. - oxybutynin (DITROPAN) 5 mg tablet Take 1 tablet by mouth three times daily as needed for bladder spasm - docusate sodium (COLACE) 100 mg capsule Take 1 capsule by mouth twice daily. - lisinopril (ZESTRIL, PRINIVIL) 20 mg tablet Take by mouth. - DULoxetine (CYMBALTA) 60 mg capsule - rOPINIRole (REQUIP) 1 mg tablet - OZEMPIC 0.25 mg or 0.5 mg(2 mg/1.5 mL) pen Problem List As Of Date: 09/24/2022 (None) Encounter Status:Closed by MARLEY GUTIERREZ on 09/24/22 [facility] CNOVon 09-16-2022 CNOV Office Visit (UROSMN ) ELIZABETH IRVIN ([id number]) 1965 F Date Time Provider Department 09/16/22 12:15 PM SAMY ODONNELL During your visit today, we recorded the following information about you: Dede Story RN 09/16/2022 12:17 PM Signed Actual procedure/procedure scheduled: Yes Performing provider/scheduled provider: Yes Patient was roomed in: Q9- 09 Pets Salesperson offered: Patient declines Patient arrived in the room at: 1156 Patient ready for procedure: 1203 The procedure started at ( Time Only): 1212 The procedure ended at: 1215 Was the procedure delayed: No The patient left the procedure room at: 1225 Dede Story RN PRE PROCEDURE ASSESSMENT - Cysto / Stent Ext Procedure Indication: Stent Extraction Latex Allergy: No Allergies reviewed and updated. Yes Heart valve replacement: No Joint replacement: No Back Office UA otained: not applicable PROCEDURE PREP - Cysto / Stent Ext Patient ID with two(2)identifiers verified by: Dede Story RN Pre-Procedure Antibiotics: None taken at home nor prior to procedure Patient Prep: Betadine Scrub to perineum and placement of Sterile Drape. COMPLETED Anesthetic Given: 10 cc 2% Lidocaine jelly Dede Story RN UNIVERSAL PROTOCOL / SAFETY CHECKLIST Procedure to be performed: Stent Extraction Sign in Communication: Completed Time Out: Team Confirms the Correct Patient, Correct Procedure, Correct Site and Site Marking, Correct Position (if applicable). Sign Out Discussion: Completed Dede Story RN POST PROCEDURE NURSE ASSESSMENT Present along with physician during procedure exam. Dede Story RN Instruction sheet given and reviewed and patient verbalizes understanding: yes Current pain intensity is 0 on a 0-10 pain scale. Dede Story RN AMBULATORY PATIENT EDUCATION THE FOLLOWING WAS EVALUATED Motivation To Learn: Interested Family/Significant Other Support: High - Very involved in pt care Cognitive Ability: Alert/Oriented Method of Instruction: Written instruction - handouts Verbal instruction The Following Influencing Factors Were Barriers To This Education Session: None The Following Physical Limitations Were Barriers To This Education Session: None Instruction Provided To: Patient Material Stockkeeper Yard Present: not applicable Discipline: Nursing Learning Topic: SURVIVAL SKILLS: Complication Prevention Pain Management Symptom Management Patient Evaluation: Verbalizes understanding: Yes Supplemental Material Given: None Instructed By Dede Story RN In Department Urology . Samy Odonnell MD 09/16/2022 12:30 PM Signed [facility] Pertinent History and Physical Exam reviewed and is unchanged. Primary Diagnosis: Nephrolithiasis Procedure: Stent Extraction Informed Consent Discussed: Yes. Risks, benefits, alternatives and personnel discussed with patient who consents to proceed. Audible Time-Out: Yes Details of Procedure: TECHNIQUE: The procedure was fully explained to the patient, risks were reviewed. The patient was placed in the supine position. The genitalia were prepped with antiseptic soap per protocol, and the urethra was anesthetized with viscous 2% lidocaine. The flexible cystoscope was introduced into the urethra and advanced under direct vision with findings as outlined below. At the conclusion of the procedure, the cystoscope was withdrawn. Anesthetics given: 10 cc 2% Lidocaine-Urethral Operative Findings Urethra: Normal Bladder: Left stent removed without difficulty Radiologic Studies CT: N/A Urogram: N/A Urethrogram: N/A Cystogram: N/A Retrograde Pyelogram(s): None Ultrasound: None KUB: None Complications: None Recommendations: Discussed findings with patient and set up right mini-PCNL (discussed with patient at length). Comments: well-tolerated Post Procedure Evaluation Condition Post Procedure: satisfactory Post Procedure Medications: Keflex 500 mg tid for 3 days Samy Odonnell MD Director, [facility] [place], [facility] Pager [phone] 09/16/2022 Dede Story RN 09/16/2022 12:30 PM Signed UNIVERSAL PROTOCOL / SAFETY CHECKLIST Procedure to be Performed: Stent Extraction Sign In: A Moment of CARE was completed. Personnel directly involved with the procedure wore the appropriate PPE (Personal Protective Equipment). Patient/Surrogate Stated/Verified: PATIENT VERIFIED(optional for EMERGENT procedures): Patient name, Date of , Relevant allergies, and The intended procedure Time Out Communication: Intended patient and procedure match the source documents. Consent documented and matches the intended procedure. Relevant labs, photos, and/or imaging studies have been reviewed. No correct side/site applicable for marking and visibility. Medications required for procedure verified. Fire risk ass (more content not included)... Normal [facility] ANES POSTPROC EVALon 023 ANES POSTPROC EVAL HNO ID: [id number] Author: Florentino Murray DO Service: ? Author Type: Anesthesiologist Type: Anesthesia Postprocedure Evaluation Filed: 09/07/2022 5:03 PM Note Text: POST ANESTHESIA EVALUATION NOTE : 1965 Procedure Summary Date: 09/07/22 Room / Location: [place] [address] [facility] Anesthesia Start: 1330 Anesthesia Stop: 1547 Procedures: CYSTOURETHROSCOPY W/ URETEROSCOPY AND/OR PYELOSCOPY W/ LITHOTRIPSY INCLUDE INSERTION OF INDWELLING URETERAL STENT (Left: Ureter) CYSTOSCOPY, EXCHANGE STENT URETERAL J (Left: Ureter) Diagnosis: Nephrolithiasis (Nephrolithiasis [N20.0]) Surgeons: Samy Odonnell MD Responsible Provider: Florentino Murray DO Anesthesia Type: general ASA Status: 3 Anesthesia Type: general Airway Type: ETT Last Vitals Vitals Value Taken Time BP 125/79 09/07/22 1700 Temp 36.1 ?C (97 ?F) 09/07/22 1547 Pulse 70 09/07/22 1701 Resp 24 09/07/22 1701 SpO2 99 % 09/07/22 1701 Vitals shown include unvalidated device data. Post Anesthesia Patient Status Patient Evaluation: PACU. PACU/ICU Patient Condition: stable. Anticipated Disposition: inpatient floor planned admission. Neurological Status: aware and responsive. Pulmonary Status: breathing comfortably on supplemental oxygen Airway Control: returned to baseline unsupported. Cardiovascular Status: stable. Pain Management: clinically adequate Postoperative Hydration: acceptable. Intraoperative Events: no significant anesthesia events Post Operative Nausea/Vomiting Status: no significant post operative nausea or vomiting Recommendation: continue current plan of care. Anesthesia Observations No Documentation SIGNATURE: Florentino Murray DO PATIENT NAME: Elizabeth Irvin DATE: September 07, 2022 TIME: 5:03 PM CSN: [id number] Normal [facility] ANES PRE-OPon 09-07-2022 ANES PRE-OP HNO ID: [id number] Author: Florentino Murray DO Service: ? Author Type: Anesthesiologist Type: Anesthesia Preprocedure Evaluation Filed: 09/07/2022 10:54 AM Note Text: ANESTHESIOLOGY DAY OF SURGERY NOTE : 1965 Procedure Information Date/Time: 09/07/22 1245 Procedures: CYSTOURETHROSCOPY W/ URETEROSCOPY AND/OR PYELOSCOPY W/ LITHOTRIPSY INCLUDE INSERTION OF INDWELLING URETERAL STENT (Left: Ureter) CYSTOSCOPY, EXCHANGE STENT URETERAL J (Left: Ureter) Location: MAIN [facility] [place] Surgeons: Samy Odonnell MD Estimated body mass index is 24.38 kg/m? as calculated from the following: Height as of 07/14/22: 157.9 cm (5' 2.17 ). Weight as of an earlier encounter on 09/07/22: 60.8 kg (134 lb). Most recent hematocrit and potassium results: Hematocrit 31.3 07/14/2022 Potassium 5.0 07/14/2022 Relevant Problems No relevant active problems I - PHYSICAL EVALUATION AIRWAY Patient intubated: No. Tracheostomy tube not present Mallampati: II. TM distance: >3 FB. Neck ROM: full ROM without neurological symptoms. Mouth opening: adequate. Short neck: no. Thick neck: no DENTAL Normal dental observations. Dental findings: teeth intact. II - ANESTHESIA PLAN ASA Score: 3 Anesthetic Plan: general Airway type: ETT The patient is not a current smoker. NPO Status: adequate Beta Rebecca Administration of chronic beta rebecca medication not planned. Monitoring Plan Monitoring plan: standard ASA. Post Procedure Analgesic Plan Postoperative analgesic plan: multimodal analgesia. Informed Consent Anesthetic risks, benefits, alternatives, personnel and consent discussed: yes. Patient / Responsible Constitution Party agrees to proceed: yes Patient / Surrogate agrees to blood products: Yes DNR status not reviewed with patient and/or family prior to surgery. Significant changes in the patient condition since the History and Physical, not otherwise documented in primary service progress note: no. Potential Anesthesia issues that may suggest increased risk of complications or contraindication to planned procedure: none. Vitals Value Taken Time BP 103/69 09/07/22 0855 Pulse 77 09/07/22 0855 Resp Temp SpO2 No current facility-administered medications on file as of 09/07/2022. Outpatient Medications as of 09/07/2022 Medication Sig - lisinopril (ZESTRIL, PRINIVIL) 20 mg tablet Take by mouth. - DULoxetine (CYMBALTA) 60 mg capsule - rOPINIRole (REQUIP) 1 mg tablet - OZEMPIC 0.25 mg or 0.5 mg(2 mg/1.5 mL) pen I have interviewed and examined the patient. I have reviewed the medical record and/or the pre-anesthesia evaluation, pertinent labs, and test results. This contains updated information obtained within 48 hours of Surgery/Procedure. SIGNATURE: Florentino Murray DO PATIENT NAME: Elizabeth Irvin DATE: September 07, 2022 TIME: 10:53 AM CSN: [id number] Normal [facility] BRIEF OP NOTon 09-07-2022 BRIEF OP NOT HNO ID: [id number] Author: Yasmeen Alexanedr MD Service: Urology Author Type: Fellow Type: Brief Op Note Filed: 09/07/2022 3:15 PM Note Text: BRIEF OPERATIVE / PROCEDURE NOTE LOG ID: [id number] Surgery/Procedure Date: 09/07/2022 Incision/Procedure Start Time: 1:53 PM Incision Close/Procedure End Time: Surgeon(s)/Procedural ist(s) and Tar Kettle Runner(s): Surgeon(s) and Role: * Samy Odonnell MD - Primary * Kolton Reyes MD - Resident - Assisting * Yasmeen Alexander MD - Fellow No Additional Staff Procedure(s): Left ureteroscopy Left ureteral stent exchange Anesthesia: General Pre-Op/Pre-Procedure Diagnosis: Nephrolithiasis [N20.0] Post-Op/Post-Procedur e Diagnosis: Same Implantable Devices: Left 6 Fr x 24 cm JJ ureteric stent Drains: None Estimated Blood Loss: 0 ml Specimens: ID Type Source Tests Collected by Time Destination 1 : left renal stone for analysis Calculus CALCULI/CALCULUS CALCULI ANALYSIS Samy Odonnell MD 09/07/2022 3:13 PM Complications: None SIGNATURE: Yasmeen Alexander MD PATIENT NAME: Elizabeth Irvin DATE: September 07, 2022 TIME: 3:15 PM PAGER/CONTACT #: Normal [facility] CALCULI ANALYSISon Calculus analysis [Interp] Normal [facility] Comment on above: Order Comment: Speci men Type: CALCULUS SPECIMENOrdering Facility: [facility] Address: [address] [place] [address] Result Comment: This test was developed and its performance characteristics determined by [facility] [place] ([facility]). It has not been cleared or approved by the FDA. -[facility] is regulated under CLIA as qualified to perform high-complexity testing. This test is used for clinical purposes. It should not be regarded as investigational or for research. Performed By: #### C SA ####[facility] [id number] [address] OF [facility] CALCULUS COLOR WHITE Normal [facility] Comment on above: Order Comment: Speci men Type: CALCULUS SPECIMENOrdering Facility: [facility] Address: [address] [place] [address] Performed By: #### C SA ####[facility]CLIA [id number] [place] CALCULUS COMPOSITION 1 70% Calcium Oxala te Monohydrate Normal [facility] Comment on above: Order Comment: Speci men Type: CALCULUS SPECIMENOrdering Facility: [facility] Address: [address] [place] [address] Performed By: #### C SA ####[facility] [id number] [address] [place] CALCULUS COMPOSITION 2 20% Calcium Oxala te Dihydrate Normal [facility] Comment on above: Order Comment: Speci men Type: CALCULUS SPECIMENOrdering Facility: [facility] Address: [address] [place] [address] Performed By: #### C SA ####[facility] [id number] [address] [place] CALCULUS COMPOSITION 3 10% Minor Components Normal [facility] Comment on above: Order Comment: Speci men Type: CALCULUS SPECIMENOrdering Facility: [facility] Address: [address] [place], [place] [phone] Performed By: #### C SA ####[place] [id number] [place] [address] [place] CALCULUS SIZE AND WT Multiple pieces. 0.1291 GRAMS Normal [facility] Comment on above: Order Comment: Speci men Type: CALCULUS SPECIMENOrdering Facility: [facility] Address: [address] [place], [place] [id number] Performed By: #### C SA ####[facility] [id number] [place] [address] [place] CALCULUS TYPE CALCULI/CALCULUS Normal [facility] Comment on above: Order Comment: Speci men Type: CALCULUS SPECIMENOrdering Facility: [facility] Address: [address] Performed By: #### C SA ####[facility] [id number] [place] [id number] [place] CNOVon 09-07-2022 CNOV Office Visit (UROLMN ) ELIZABETH IRVIN ([id number]) 1965 F Date Time Provider Department 09/07/22 9:00 AM MARLEY CHOE During your visit today, we recorded the following information about you: Pulse Blood pressure Weight 77/minute 103/69 60.8 kg Marley Gutierrez PA-C 09/07/2022 10:06 AM Signed UROLOGY SURGICAL HANDP SERVICE DATE: 09/07/2022 SERVICE TIME: 8:59 AM REFERRING PROVIDER: No referring provider defined for this encounter. PCP: No primary care provider on file. GENDER: Female SUBJECTIVE CHIEF COMPLAINT: Pre-op exam HISTORY OF PRESENT ILLNESS: Ms. Irvin is a 56 year old female who presents for preoperative exam prior to Left CYSTOURETHROSCOPY W/ URETEROSCOPY AND/OR PYELOSCOPY W/ LITHOTRIPSY INCLUDE INSERTION OF INDWELLING URETERAL STENT and CYSTOSCOPY, EXCHANGE STENT URETERAL J with Dr. Odonnell today, 09/07/22. FUNCTIONAL STATUS: Walk a block or two on level ground (2.75 METs) Do moderate work around the house such as vacuuming, sweeping floors, or carrying in groceries (3.50 METs) Do yardwork, such as raking leaves, weeding,or pushing a power mower (4.50 METs) Climb a flight of stairs or walk up a hill (5.50 METs) No past medical history on file. No past surgical history on file. No family history on file. Social History Tobacco Use Smoking status: Never Passive exposure: Current Smokeless tobacco: Never REVIEW OF SYSTEMS: General: General: Well developed, well nourished. No acute distress HEENT: + headaches. Negative for sore throat, difficulty swallowing. Negative for changes in vision or hearing. Cardiovascular: + HTN. No history of angina, CHF, CT, cardiac surgery of stents. Respiratory: Negative for current cough, dyspnea. No hx of pneumonia in the past six weeks Gastrointestinal: + gastric bypass hx. No history of PUD, abd pain, difficulty swallowing, GI bleed. Renal: Negative for renal failure and No history of dialysis Musculoskeletal: Negative for joint pain or swelling, back pain or muscle pain. Skin: Negative for lesions, rash and itching. Psychological: No history of psychiatric symptoms or problems. Neurologic: No history of TIA's, stroke, TR[place] E[place] PAR[place]GAL tumor, impaired sensorium, hemiplegia or paraplegia No neurological symptoms or problems. Hematology/Oncology: No history of bleeding or clotting disorder. Pt is not taking anti-coagulation or platelet medications. No history of hematological symptoms or problems. Endocrine: + DM. Negative for excessive sweating, thirst or hunger PHYSICAL EXAM: General Appearance/ Constitutional: Well developed, well nourished, and in no apparent distress Head and Neck normal, no jugular venous extension, no thyromegaly, and no palpable mass Eyes: Pupils are equally round and reactive to light. Extraocular movements are intact. Respiratory: Clear to auscultation AND percussion Cardiovascular: Normal, Regular rate and rhythm, and No murmurs GI: Soft, Non-tender, No masses, hepatosplenomegaly, and No lymphadenopathy Extremities: Radial and pedal pulses +2, no edema, extremities WNL Back: Normal back and mobility Neurological: Normal cognition and motor skills. Skin: Color, texture, turgor normal. VITALS: BP 103/69 (BP Site: Left Arm, BP Position: Sitting, BP Cuff Size: Regular Adult) Pulse 77 Wt 60.8 kg (134 lb) BMI 24.38 kg/m? Temperature Max: @TMAXREFRESH(24)@ ALLERGIES: ALLERGIES Allergen Reactions Prednisone Hives Valacyclovir Hives LABS: BUN (mg/dL) Date Value 07/14/2022 28 Creatinine (mg/dL) Date Value 07/14/2022 2.85 No results found for: PSA Glucose, Urine (no units) Date Value 08/18/2022 Negative Bilirubin, Urine (no units) Date Value 08/18/2022 Negative Ketones, Urine (no units) Date Value 08/18/2022 Negative Specific [place], Ur (no units) Date Value 08/18/2022 1.016 Hemoglobin/Blood,Ur (no units) Date Value 08/18/2022 3+ (A) pH, Urine (no units) Date Value 08/18/2022 6.0 Protein, Urine (no units) Date Value 08/18/2022 1+ (A) Nitrites (no units) Date Value 08/18/2022 Negative WBC, Urine (no units) Date Value 08/18/2022 >25 /HPF (A) Color (no units) Date Value 08/18/2022 Light Yellow Clarity (no units) Date Value 08/18/2022 Cloudy (A) MEDICATIONS: (Not in a hospital admission) No current outpatient medications on file. No current facility-administered medications for this visit. DIAGNOSIS, ASSESSMENT AND PLAN There are no active hospital problems to display for this patient. Assessment AND Plan: Proceed to surgery SIGNATURE: Marley Gutierrez PA-C PATIENT NAME: Elizabeth Irvin DATE: September 07, 2022 TIME: 8:59 AM PAGER/CONTACT #: [facility] PRE-OP NOTE Elizabeth Irvin is a 56 year old female. Pre-op Date: September 07, 2022 Date of Procedure: 09/07/22 Does the patien (more content not included)... Normal [facility] HISTORY PHYSICALon HISTORY PHYSICAL HNO ID: [id number] Author: Marley Peres PA-C Service: ? Author Type: Physician Tar Kettle Runner Type: HANDP Filed: 09/07/2022 10:06 AM Note Text: UROLOGY SURGICAL HANDP SERVICE DATE: 09/07/2022 SERVICE TIME: 8:59 AM REFERRING PROVIDER: No referring provider defined for this encounter. PCP: No primary care provider on file. GENDER: Female SUBJECTIVE CHIEF COMPLAINT: Pre-op exam HISTORY OF PRESENT ILLNESS: Ms. Irvin is a 56 year old female who presents for preoperative exam prior to Left CYSTOURETHROSCOPY W/ URETEROSCOPY AND/OR PYELOSCOPY W/ LITHOTRIPSY INCLUDE INSERTION OF INDWELLING URETERAL STENT and CYSTOSCOPY, EXCHANGE STENT URETERAL J with Dr. Odonnell today, 09/07/22. FUNCTIONAL STATUS: Walk a block or two on level ground (2.75 METs) Do moderate work around the house such as vacuuming, sweeping floors, or carrying in groceries (3.50 METs) Do yardwork, such as raking leaves, weeding,or pushing a power mower (4.50 METs) Climb a flight of stairs or walk up a hill (5.50 METs) No past medical history on file. No past surgical history on file. No family history on file. Social History Tobacco Use Smoking status: Never Passive exposure: Current Smokeless tobacco: Never REVIEW OF SYSTEMS: General: General: Well developed, well nourished. No acute distress HEENT: + headaches. Negative for sore throat, difficulty swallowing. Negative for changes in vision or hearing. Cardiovascular: + HTN. No history of angina, CHF, CT, cardiac surgery of stents. Respiratory: Negative for current cough, dyspnea. No hx of pneumonia in the past six weeks Gastrointestinal: + gastric bypass hx. No history of PUD, abd pain, difficulty swallowing, GI bleed. Renal: Negative for renal failure and No history of dialysis Musculoskeletal: Negative for joint pain or swelling, back pain or muscle pain. Skin: Negative for lesions, rash and itching. Psychological: No history of psychiatric symptoms or problems. Neurologic: No history of TIA's, stroke, [place]GAL tumor, impaired sensorium, hemiplegia or paraplegia No neurological symptoms or problems. Hematology/Oncology: No history of bleeding or clotting disorder. Pt is not taking anti-coagulation or platelet medications. No history of hematological symptoms or problems. Endocrine: + DM. Negative for excessive sweating, thirst or hunger PHYSICAL EXAM: General Appearance/ Constitutional: Well developed, well nourished, and in no apparent distress Head and Neck normal, no jugular venous extension, no thyromegaly, and no palpable mass Eyes: Pupils are equally round and reactive to light. Extraocular movements are intact. Respiratory: Clear to auscultation AND percussion Cardiovascular: Normal, Regular rate and rhythm, and No murmurs GI: Soft, Non-tender, No masses, hepatosplenomegaly, and No lymphadenopathy Extremities: Radial and pedal pulses +2, no edema, extremities WNL Back: Normal back and mobility Neurological: Normal cognition and motor skills. Skin: Color, texture, turgor normal. VITALS: BP 103/69 (BP Site: Left Arm, BP Position: Sitting, BP Cuff Size: Regular Adult) Pulse 77 Wt 60.8 kg (134 lb) BMI 24.38 kg/m? Temperature Max: @TMAXREFRESH(24)@ ALLERGIES: ALLERGIES Allergen Reactions Prednisone Hives Valacyclovir Hives LABS: BUN (mg/dL) Date Value 07/14/2022 28 Creatinine (mg/dL) Date Value 07/14/2022 2.85 No results found for: PSA Glucose, Urine (no units) Date Value 08/18/2022 Negative Bilirubin, Urine (no units) Date Value 08/18/2022 Negative Ketones, Urine (no units) Date Value 08/18/2022 Negative Specific [place], Ur (no units) Date Value 08/18/2022 1.016 Hemoglobin/Blood,Ur (no units) Date Value 08/18/2022 3+ (A) pH, Urine (no units) Date Value 08/18/2022 6.0 Protein, Urine (no units) Date Value 08/18/2022 1+ (A) Nitrites (no units) Date Value 08/18/2022 Negative WBC, Urine (no units) Date Value 08/18/2022 >25 /HPF (A) Color (no units) Date Value 08/18/2022 Light Yellow Clarity (no units) Date Value 08/18/2022 Cloudy (A) MEDICATIONS: (Not in a hospital admission) No current outpatient medications on file. No current facility-administered medications for this visit. DIAGNOSIS, ASSESSMENT AND PLAN There are no active hospital problems to display for this patient. Assessment AND Plan: Proceed to surgery SIGNATURE: Marley Gutierrez PA-C PATIENT NAME: Elizabeth Irvin DATE: September 07, 2022 TIME: 8:59 AM PAGER/CONTACT #: [facility] PRE-OP NOTE Elizabeth Irvin is a 56 year old female. Pre-op Date: September 07, 2022 Date of Procedure: 09/07/22 Does the patient have an active COVID-19 test in Epic? N/a Procedure/Surgery: L URS and stent Diagnosis: Nephroltihaisis Primary Surgeon: MD Blas, Samy BP 103/69 (BP Site: Left Arm, BP Position: Sitting, BP Cuff Size: Regular Adult) Pulse 7 (more content not included)... Normal [facility] OPERATIVE NOon 04-17-2023 OPERATIVE NO HNO ID: [id number] Author: Samy Odonnell MD Service: Urology Author Type: Physician Type: Operative Report Filed: 09/07/2022 3:56 PM Note Text: OPERATIVE/PROCEDURE REPORT LOG ID: [id number] Surgery/Procedure Date: 09/07/2022 Incision/Procedure Start Time: 1:53 PM Incision Close/Procedure End Time: Surgeon(s)/Procedural ist(s) and Tar Kettle Runner(s): Surgeon(s) and Role: * Samy Odonnell MD - Primary * Kolton Reyes MD - Resident - Assisting * Yasmeen Alexander MD - Fellow Procedure(s): Cystourethroscopy Left retrograde pyelogram Left ureteroscopy and laser lithotripsy with stone basketing/manipulatio n Left JJ ureteric stent exchange Fluoroscopy < 1 hr Approach: Endoscopic Anesthesia: General Findings: Stone [place]: Primary stone 10 mm mid ureter, significantly impacted; Additional stone(s) none Ureteral Access Sheath: None Lithotripsy Technique: dusting, fragmenting, and basket extraction Laser: 365-micron SOLTIVE thulium fiber laser; 0.6 J and 14 Hz Irrigation: 10K fluid management pump system; max pressure 200 mmHg Anatomic Findings: Significantly dilated renal collecting system Other: Mild extravasation on retrograde pyelogram prior to ureteral stent placement Clinical Indications: Elizabeth Irvin is a 56 year old year-old female with left nephrolithiasis and presents today for ureteroscopic management thereof. Preoperative imaging showed a left 10 mm mid ureteric stone. Signed informed consent was obtained prior to the procedure after the risks, complications and alternatives to the procedure were discussed. Operative Procedure: Elizabeth Irvin was brought to OR. After reviewing the images, HANDP, and all relevant lab work and pathology, a surgical huddle was performed with all operating room personnel. The patient was then placed on the operating room table, perioperative antibiotics (ancef) were administered, and general anesthesia induced. Patient was placed in dorsal lithotomy position with all pressure points padded and was prepped and draped in the usual sterile manner. A surgical timeout was performed. Fluoroscopy C-arm was brought into the room. Commodities Requirements Analyst images were taken. A 22 Fr rigid cystoscope with 30 degree lens was advanced through the urethra and into the bladder. No lesions were seen in the urethra or on the bladder mucosa. The existing stent was emanating from the left ureteric orifice. A 0.038 straight glide wire was advanced alongside the stent up to the left renal pelvis under fluoroscopic guidance. The stent was encrusted be able to be grasped with stent graspers and removed completely without difficulty. A semi-rigid ureteroscope was advanced into the ureter . The scope was advanced up to the mid ureter. We identified a stone in the mid ureter. A 365-micron SOLTIVE thulium fiber laser was used to dust and fragment the stone into smaller fragments for extraction, and dust and submillimeter particles considered small enough to pass spontaneously.The Halo basket was used to remove all stone fragments. A second 0.038 straight glide wire was advanced through the scope into the kidney. A Geosophic single-use flexible ureteroscope was advanced over the working wire into the ureter. We carefully examined the proximal ureter, all calyces and the renal pelvis. We identified stone fragment in the renal pelvis. The Halo nitinol basket was used to remove all stone fragments. We again examined all calyces and did not see any further stones. A retrograde pyelogram was performed which demonstrated mild extravasation. No further stones were seen, either fluoroscopically or endoscopically, just some stone dust. A 7 Fr x 24 cm JJ ureteric stent was placed retrograde over the safety wire with a good curl noted in the kidney and bladder on fluoroscopy. The bladder was emptied. All instrumentation was removed. There were no intraoperative complications. The patient tolerated the procedure well, emerged from anesthesia without incident, and was transferred to PACU in stable condition. Pre-Op/Pre-Procedure Diagnosis: Nephrolithiasis [N20.0] Post-Op/Post-Procedur e Diagnosis: Same Implantable Devices: Left 6 Fr x 24 cm JJ ureteric stent * No implants in log * Drains: None Estimated Blood Loss: 0 ml Specimens: ID Type Source Tests Collected by Time Destination 1 : left renal stone for analysis Calculus CALCULI/CALCULUS CALCULI ANALYSIS Samy Odonnell MD 09/07/2022 3:13 PM Complications: None Post-Op Plan: Discharge from same day surgery once meets all discharge criteria. Plan for ureteric stent removal in 1-2 week(s). The primary surgeon/proceduralist performed the entire procedure with assistance from the resident/fellow from start to finish. SIGNATURE: Yasmeen Alexander MD PATIENT NAME: Elizabeth Irvin DATE: September 07, 2022 TIME: 3:16 PM PAGER/CONTACT #: Samy Odonnell MD, FACS Director, Surgical Stone Disease, [facility] Urologic In (more content not included)... Normal [facility] PTH INTACT BLDon 09-07-2022 Parathyrin.intact [Mass/Vol] 81 pg/mL High 15 - 65 pg/mL [facility] PTH-Intact SerPl-mCncon - Parathyrin.intact [Mass/Vol] 81 pg/mL High 15-65 [facility] Comment on above: Order Comment: Speci men Type: BLOOD SPECIMENOrdering Facility: [facility] Address: [address] [place] [address] Performed By: #### 2 [id number] ####[facility] [id number] [place] [address] [place] URINALYSIS, REFLEX MICROSCOP ICon 09-07-2022 Bilirubin Ql (U) Negative Normal Negative [facility] Comment on above: Order Comment: Speci men Type: URINE SPECIMENOrdering Facility: [facility] Address: [address] [place] [address] Performed By: #### L [id number] ####[facility] [id number] [place] [address] [place] Clarity (Unsp spec) Cloudy Abnormal Clear [facility] Comment on above: Order Comment: Speci men Type: URINE SPECIMENOrdering Facility: [facility] Address: [address] [place] [address] Performed By: #### L [id number] ####[facility] [id number] [place] [address] [place] Color (U) Yellow Normal Yellow [facility] Comment on above: Order Comment: Speci men Type: URINE SPECIMENOrdering Facility: [facility] Address: [address] [place] [address] Performed By: #### L [id number] ####[facility] [id number] [place] [address] [place] Epithelial cells LM.HPF (Urine sed) [#/Area] Few Normal [facility] Comment on above: Order Comment: Speci men Type: URINE SPECIMENOrdering Facility: [facility] Address: [address] [place] [address] Performed By: #### L [id number] ####[facility] [id number] [place] [address] [place] Glucose Test strip (U) [Mass/Vol] Negative Normal Trace, Negative [facility] Comment on above: Order Comment: Speci men Type: URINE SPECIMENOrdering Facility: [facility] Address: [address] [place] [address] Performed By: #### L [id number] ####[facility] [id number] [place] [address] [place] Hemoglobin Ql (U) Trace Normal Negative, Trace [facility] Comment on above: Order Comment: Speci men Type: URINE SPECIMENOrdering Facility: [facility] Address: [address] [place] [address] Performed By: #### L [id number] ####[facility] [id number] [place] [address] [place] Ketones Ql (U) Negative Normal Negative, Trace [facility] Comment on above: Order Comment: Speci men Type: URINE SPECIMENOrdering Facility: [facility] Address: [address] [place] [address] Performed By: #### L [id number] ####[facility] [id number] [place] [address] [place] Leukocyte esterase Test strip Ql (U) 500 Nicholas/uL Abnormal Negative, 25 Nicholas/uL [facility] Comment on above: Order Comment: Speci men Type: URINE SPECIMENOrdering Facility: [facility] Address: [address] [place] [address] Performed By: #### L [id number] ####[facility] [id number] [place] [address] [place] Nitrite Ql (U) Negative Normal Negative [facility] Comment on above: Order Comment: Speci men Type: URINE SPECIMENOrdering Facility: [facility] Address: [address] [place] [address] Performed By: #### L [id number] ####[facility] [id number] [place] [address] [place] pH (U) 6.0 [pH] Normal 5.0-8.0 [facility] Comment on above: Order Comment: Speci men Type: URINE SPECIMENOrdering Facility: [facility] Address: [address] [place], [place] [id number] Performed By: #### L [id number] ####[facility] [id number] [place] [address] [place] Protein (U) [Mass/Vol] Trace Normal Trace , Negative [facility] Comment on above: Order Comment: Speci men Type: URINE SPECIMENOrdering Facility: [facility] Address: [address] [place], [place] [id number] Performed By: #### L [id number] ####[facility] [id number] [place] [address] [place] RBC LM.HPF (Urine sed) [#/Area] 0-3 /HPF Normal 0-3 /HPF [facility] Comment on above: Order Comment: Speci men Type: URINE SPECIMENOrdering Facility: [facility] Address: [address] [place], [place] [id number] Performed By: #### L [id number] ####[facility] [id number] [address] [place] Specific gravity (U) [Rel density] 1.014 Normal 1.005-1.030 [facility] Comment on above: Order Comment: Speci men Type: URINE SPECIMENOrdering Facility: [facility] Address: [address] [place] [address] Performed By: #### L [id number] ####[facility] [id number] [address] [place] Urobilinogen Ql (U) Negative Normal Negative [facility] Comment on above: Order Comment: Speci men Type: URINE SPECIMENOrdering Facility: [facility] Address: [address] [place] [address] Performed By: #### L [id number] ####[facility] [id number] [address] [place] WBC LM.HPF (Urine sed) [#/Area] /[HPF] Abnormal 0-5 /HPF [facility] Comment on above: Order Comment: Speci men Type: URINE SPECIMENOrdering Facility: [facility] Address: [address] [place] [address] Performed By: #### L [id number] ####[facility] LABIA [id number] [address] [place] Bilirubin Ql (U) Negative Negative [facility] Clarity (Unsp spec) Cloudy Abnormal Clear [facility] Color (U) Yellow Yellow [facility] Epithelial cells LM.HPF (Urine sed) [#/Area] Few [facility] Glucose Test strip (U) [Mass/Vol] Negative Trace, Negative [facility] Hemoglobin Ql (U) Trace Negative, Trace [facility] Ketones Ql (U) Negative Negative, Trace [facility] Leukocyte esterase Test strip Ql (U) 500 Nicholas/uL Abnormal Negative, 25 Nicholas/uL [facility] Nitrite Ql (U) Negative Negative [facility] pH (U) 6.0 [pH] 5.0 - 8.0 [facility] Protein (U) [Mass/Vol] Trace Trace , Negative [facility] RBC LM.HPF (Urine sed) [#/Area] 0-3 /HPF 0-3 /HPF [facility] Specific gravity (U) [Rel density] 1.014 1.005 - 1.030 [facility] Urobilinogen Ql (U) Negative Negative [facility] WBC LM.HPF (Urine sed) [#/Area] /[HPF] Abnormal 0-5 /HPF [facility] CNPNon 08-19-2022 CNPN Telephone (UROLMN) ALBAROELIZABETH ([id number]) 1965 F Date Time Provider Department 08/19/22 MARISA WEST During your visit today, we recorded the following information about you: Marisa West RN 08/19/2022 12:00 PM Addendum Called and spoke with patient regarding incoming call message. She states that she is a bit confused regarding the scheduling of her procedure. She thought she was going to be having the PCNL surgery done but was told she is having the URS surgery by Dr. Odonnell instead. Explained to patient that this was decided upon by Dr. Odonnell after review of renal flow results and thinks this is the best option moving forward. Patient also asking about urine culture and if positive for infection can she get an injection of antibiotics. Explained that urine culture is still in process and if positive, she will be given an oral antibiotic, as they are not given as injections, but rather IV if needed. Patient states she usually dry heaves when taking oral antibiotics. Informed patient that if one is needed, it will be determined based on sensitivities and we can try prescribing Zofran with medication and see if she tolerates it. IV is usually recommended if the bacteria is resistant to oral options. Will await urine culture results at this time. Patient voiced understanding. Marisa West RN August 19, 2022 12:00 PM ----- Message from Gracy Reid Rep sent at 08/19/2022 10:54 AM EDT ----- Regarding: Dry-heaving Contact: Pt called - completed labs (advised pt urine culture is still in process) pt says dry heaving all the pills, pt wants to know if there is an infection could a shot be giving instead of a pill. Please advise -thank you. Allergies As of Date: 08/19/2022 Noted Allergy Reaction PREDNISOLONE 07/14/2022 4 - Hives PREDNISONE 04/24/2022 4 - Hives VALACYCLOVIR 04/24/2022 4 - Hives Date Reviewed: 07/14/2022 Reviewed by: ANNALISE Reyes - Fully Assessed Reason for Visit: Returning Patient's Call [408] Prescriptions as of 08/19/2022 - lisinopril (ZESTRIL, PRINIVIL) 20 mg tablet Take by mouth. - DULoxetine (CYMBALTA) 60 mg capsule - rOPINIRole (REQUIP) 1 mg tablet - OZEMPIC 0.25 mg or 0.5 mg(2 mg/1.5 mL) pen Problem List As Of Date: 08/19/2022 (None) Encounter Status:Closed by MARISA WEST on 08/19/22 Normal [facility] Bacteria Ur Culton 3 Bacteria identified Cx Nom (U) ORGANISM ID: 1 10,000 -<50,000 CFU/ml Mixed microbiota No further workup. Mixed microbiota can be due to???urine???contamin ation with skin bacteria at time of collection or presence of a long-term urinary catheter. If a new culture is needed, please consider re-education of the patient on proper midstream collection technique or straight catheterization for???urine???collect ion. Normal [facility] Comment on above: Performed By: #### 6 30-4 ####[facility] [id number] [place] [address] [place] Urinalysis complete panel (U )on 08-18-2022 Bacteria LM.HPF (Urine sed) [#/Area] Rare Abnormal None Seen [facility] Comment on above: Order Comment: Speci men Type: URINE SPECIMENOrdering Facility: [facility] Address: [address] [place] [address] Performed By: #### 2 4356-8 ####[facility] [id number] [place] [address] [place] Bilirubin Ql (U) Negative Normal Negative [facility] Comment on above: Order Comment: Speci men Type: URINE SPECIMENOrdering Facility: [facility] Address: [address] [place] [address] Performed By: #### 2 4356-8 ####[facility] [id number] [place] [address] [place] Clarity (Unsp spec) Cloudy Abnormal Clear [facility] Comment on above: Order Comment: Speci men Type: URINE SPECIMENOrdering Facility: [facility] Address: [address] [place] [address] Performed By: #### 2 4356-8 ####[facility] [id number] [address] STATES OF [facility] Color (U) Light Yellow Normal Yellow [facility] Comment on above: Order Comment: Speci men Type: URINE SPECIMENOrdering Facility: [facility] Address: [address] [place], [place] [address] Performed By: #### 2 4356-8 ####[facility] [id number] [address] [place] Epithelial cells LM.HPF (Urine sed) [#/Area] Few Normal [facility] Comment on above: Order Comment: Speci men Type: URINE SPECIMENOrdering Facility: [facility] Address: [address] [address] Performed By: #### 2 4356-8 ####[facility] [id number] [address] [place] Glucose Test strip (U) [Mass/Vol] Negative Normal Trace, Negative [facility] Comment on above: Order Comment: Speci men Type: URINE SPECIMENOrdering Facility: [facility] Address: [address] [address] Performed By: #### 2 4356-8 ####[facility] [id number] [place] [address] [place] Hemoglobin Ql (U) 3+ Abnormal Negative, Trace [facility] Comment on above: Order Comment: Speci men Type: URINE SPECIMENOrdering Facility: [facility] Address: [address] [address] Performed By: #### 2 4356-8 ####[facility] [id number] [place] [address] [place] Ketones Ql (U) Negative Normal Trace, Negative [facility] Comment on above: Order Comment: Speci men Type: URINE SPECIMENOrdering Facility: [facility] Address: [address] Performed By: #### 2 4356-8 ####[facility] [id number] [place] [address] [place] Leukocyte esterase Test strip Ql (U) 500 Nicholas/uL Abnormal Negative, 25 Nicholas/uL [facility] Comment on above: Order Comment: Speci men Type: URINE SPECIMENOrdering Facility: [facility] Address: [address] Performed By: #### 2 4356-8 ####[facility] [id number] [place] [address] [place] Nitrite Ql (U) Negative Normal Negative [facility] Comment on above: Order Comment: Speci men Type: URINE SPECIMENOrdering Facility: [facility] Address: [address] [place] [address] Performed By: #### 2 4356-8 ####[facility] LABIA [id number] [place] [address] [place] pH (U) 6.0 [pH] Normal 5.0-8.0 [facility] Comment on above: Order Comment: Speci men Type: URINE SPECIMENOrdering Facility: [facility] Address: [address] [place] [address] Performed By: #### 2 4356-8 ####[facility] LABIA [id number] [address] Protein (U) [Mass/Vol] 1+ Abnormal Trace , Negative [facility] Comment on above: Order Comment: Speci men Type: URINE SPECIMENOrdering Facility: [facility] Address: [address] [place] [address] Performed By: #### 2 4356-8 ####[facility] LABIA [id number] [place] [address] [place] RBC LM.HPF (Urine sed) [#/Area] /[HPF] Abnormal 0-3 /HPF [facility] Comment on above: Order Comment: Speci men Type: URINE SPECIMENOrdering Facility: [facility] Address: [address] [place] [address] Performed By: #### 2 4356-8 ####[facility] LABIA [id number] [place] [address] [place] Specific gravity (U) [Rel density] 1.016 Normal 1.005-1.030 [facility] Comment on above: Order Comment: Speci men Type: URINE SPECIMENOrdering Facility: [facility] Address: [address] [address] Performed By: #### 2 4356-8 ####[facility] LABIA [id number] [place] [address] [place] Urobilinogen Ql (U) Negative Normal Negative [facility] Comment on above: Order Comment: Speci men Type: URINE SPECIMENOrdering Facility: [facility] Address: [address] [place] [address] Performed By: #### 2 4356-8 ####[facility] LABIA [id number] [place] [address] [place] WBC LM.HPF (Urine sed) [#/Area] /[HPF] Abnormal 0-5 /HPF [facility] Comment on above: Order Comment: Speci men Type: URINE SPECIMENOrdering Facility: [facility] Address: [address] [address] Performed By: #### 2 4356-8 ####[facility] [id number] [address] [place] Rabia 08-13-2022 ALY Telephone (VAN) ELIZABETH IRVIN ([id number]) 1965 F Date Time Provider Department 08/13/22 MARISA WEST During your visit today, we recorded the following information about you: Marisa West RN 08/13/2022 9:55 AM Signed Called patient to discuss questions she has about surgery with Dr. Odonnell. Informed her that the stone removal surgery would be an outpatient procedure with a 24 hour observation. Recommend to avoid strenuous activity and heavy lifting >10 lbs for about 1-2 weeks. Patient is agreeable to proceeding with surgery after review of Dr. Steele recent my chart message. Offered patient 08/24, 08/31 or 09/07. She is going to check her work schedule and get back to office tomorrow on my chart to confirm a surgery date. Marisa West RN August 13, 2022 9:55 AM Allergies As of Date: 08/13/2022 Noted Allergy Reaction PREDNISOLONE 07/14/2022 4 - Hives PREDNISONE 04/24/2022 4 - Hives VALACYCLOVIR 04/24/2022 4 - Hives Date Reviewed: 07/14/2022 Reviewed by: Gali Mcnally, ANNALISE - Fully Assessed Reason for Visit: [employer] - Other [3602] Prescriptions as of 08/13/2022 - lisinopril (ZESTRIL, PRINIVIL) 20 mg tablet Take by mouth. - DULoxetine (CYMBALTA) 60 mg capsule - rOPINIRole (REQUIP) 1 mg tablet - OZEMPIC 0.25 mg or 0.5 mg(2 mg/1.5 mL) pen Problem List As Of Date: 08/13/2022 (None) Encounter Status:Closed by MARISA WEST on 08/13/22 Normal [facility] RENAL FLOW/FXN W PHARMon 07-30-2022 NM RENAL FLOW/FXN W PHARM * * *Final Report* * * DATE OF EXAM: Jul 30 2022 2:51PM FVN 0035 - NM RENAL FLOW/FXN W PHARM / PROCEDURE REASON: Hydronephrosis with urinary obstruction due to ureteral calculus * * * * Physician Interpretation * * * * DIURETIC RENAL SCAN: CLINICAL HISTORY: Hydronephrosis TECHNIQUE: 10.5 mCi Tc 99m MAG3 IV. Medications and allergies reviewed. 40 mg Lasix was given IV. Imaging of the kidneys for flow and function obtained in posterior views. RESULT: RENAL PERFUSION: There is decreased perfusion to the left kidney. There is prompt perfusion to the right kidney. RENAL FUNCTION: There is decreased and delayed uptake and sluggish parenchymal transit by the left kidney. There is delayed drainage of activity by the left kidney. Following Lasix there is incomplete clearance . Post Lasix t- half clearance time is 83 minutes on the left, which suggest obstruction. There is satisfactory uptake and normal rate of parenchymal transit by the right kidney. There is spontaneous drainage of activity by the right kidney. Following Lasix there is almost complete clearance with no evidence of obstruction. By computer analysis, the contribution to total renal function is 9% from the left kidney, and 91% from the right kidney. IMPRESSION: RIGHT KIDNEY: SATISFACTORY FLOW AND FUNCTION AND DRAINAGE WITH NO EVIDENCE OF OBSTRUCTION ON THE RIGHT LEFT KIDNEY: POOR FLOW AND FUNCTION AND DRAINAGE. SPLIT FUNCTION: LEFT KIDNEY 9% AND RIGHT KIDNEY 91% Repairer Controller T[facility] Transcribe Date/Time: Jul 30 2022 3:15P Dictated by : SHEEBA KASPER MD This examination was interpreted and the report reviewed and electronically signed by: SHEEBA KASPER MD on Jul 30 2022 3:19PM EST [id number] N [facility] NURSING PROGon 07-30-2022 NURSING PROG HNO ID: [id number] Author: Fernanda Koenig RN Service: Radiology Author Type: Registered Nurse Type: Nursing Progress Note Filed: 07/30/2022 2:18 PM Note Text: Patient here for a renal scan with lasix. Patient identified and allergies reviewed. Per order under scanned documents lasix 40 mg IV given at 1411. Normal [facility] Coding Summary.on 07-29-2022 Coding Summary. CD:[id number] G h0bWw+PGhlYWQ+XF0NZXR wS61qgXCbhV5uP4AFRArU SywgQVBQTElOSyIgbmFtZ T0mtQZqJQSg IC8+EE2sDFNrTmvwmXSvf 8H9mPX7T58jse6aDCddhA E5KPSiVfItgsdab0ewmPd 6IDcuNmluOyBt FCCilO48VDX5yE64Wj75o ZPvdKXcw7ziuDs5SpNeOC KiSBA6mTypIQtji9OrOND hG41siOFvt2P2 QDOelInezPApUfUvuPU9n E8eLSivnwwel2alesgrCa j0sv37rSNik0X0fHK1X9Y wgyD5YEPduDYt YbaqsXDRuL5bodgza1hbf vrzKbDeIRGoRYr6ILn0FA DjoMtkJbDtDQ07EOR1TUD cpwAeJ5BsCGEd xAieQcO2w6F4St9MB7GDE bksD1KPZWSHGSoduIH+PC 38cd11N8DhEdsuHms3UYU lNTO4fUC6sJ4n ZWLzPZbxw2H6xQB0K3Yoe cVatz1ls5jtDSPeOAidV1 9ykQTsd3B9JEAdnOI2PKL lxAqiTeCjfQ50 Oyc+UGNysSfgx0MhIofqy 5dvv8mhwSz4TjeuGNMlca FqqDjwRIW7p6JdVr7dMVF rnUP3yUC9tN5b RmPvZcV1YDoxL658UnOxo CNoStlqO92gF7CblDX+PH TxBli3PDHxqEvhVA4oQ4O hZGRpbmctbGVm cZdaFP9lVPGzukxuFWOtm D2jKBXjH6g8MdEpGyM5OD hjE7CcDFVwhryiAl54cY3 yFlArEvJ4ROnu Y9AqhzN4ENWwlPHrQPboX RG6S94it5W2VXFzLWJqCO C3gMX2aY0tlRjrlcxeiFM mdDsgdmVydGlj RXivGPqmX727PQUbsVujI kNvZGluZyBEYXRlOiAgMD MvMDgvMjAyMzwvdGQ+PHR kRLF7tDfzTWSp aEOoEDshFa9tfJkcyZojP D9iUHEgwnslMTBsxI6pYF CziRNlhSheTM4tKBZzqwk jn372PiZrXSL4 VXAneWHvP6XrdH4xQyMrO FOmFAIcA0XztOAzOBghS4 40IZcuPpC6SCBlgtQdF0S sLWFsaWduOiB0 g2V7Jl7Md8IchjhnV8Eil TFgOmBiVvnnWHt1C0PjIj wvdHI+PJ41CDPeZG92YSv 3ZBV0dJocVMhj RPZzH2LjhW5lEcJrLZLtG GRkOyc+PHRhYmxlIHdpZH RoPScxMDAlJyBzdHlsZT0 qTb6ySRObQUPg jHbpySKrKvHpq4epYBLwK QkrYG1wcFhhG2BvzUV3XB Xpo9k3Hw09G59aC1XwtWG +RCEzjCU0sQV1 wP2iHsJvSnO6KAezO119B fPshTAzHuyvm6obz5gkeJ w4WtN2LFZxysNruOxjJSL 9v9SvNk17Y47m IHdpZHRoPSIxNSUiIHZhb Cxpgj4zvO2jIg2+PGNvbC X7wNX1dI7sHnRvPeQ7CWm eK198AkOajYQr Dxytz7acy6mmkMa7KlQgB BLkbrBcdFlbYUP2d7YxUl 61Z6QbgJurk9DtXou9bb6 1mHIte5D7qOW8 R7RiIJAlmzotfTJuiLekY O7cXRHflyqkJCWjzF1xYD UdA6b0WfCaPsC8VXjqR8N yheJ5UZJbdMXd YAYpdDHZbQ5kaiajk8cec nnwXeBpMQQfIFj0KYw9IY SvkZobUjWjXLI6FtC4FGX 0xWOwsO0klJkh kunljP2aLax+USG0vBPht JENFQ4fVmcmkMX+PHRkIH P8uUyyIDufLWZknQ4wRGG fE2r9TxGuMiI7 CIcnP6KvebO8BDWqaJZhI ZQavFHWkT9iqhjqn8pteq rsTuLrRJSdWEk3NDq0UTG saWduOiBsZWZ0 GnQ0CZK2kTIupU8ovLdfw tqtjX6oHui+QmlydGggRG M1JHz4T4NdJxc4AEMqiKq tCA6rhYNgOPhz Ck7vuSjueIboOD1lJPYjy bdky169CjDxc5gnRCMgyC NoIMguXRL2F23oa4L5XIG mVMVyYZQ5kYX8 lV5jfOppkmlkpUUsnCscg pYbpEpjBWcuEGxjG160BC OxfFwjWyQuEIb5I8PxJfk 8MMPbeFkkFT4y oIFiQMxsRp3hpAttxZzhP S9iANDznchis267UiYcf1 fjQSEfxQJpVOsmDGU8L34 if3E3GHWrGJIw MZN0fIO8yJ7poZuzzkkkw GVmdDsgdmVydGljYWwtYW elJ352QKQpzLytBnWyuNt 8A5VsLpi3EEEg tYhmIH2rzLFjSBgjXx3dl FfgeXvzMB6kCFTqyikvg6 24MlXze1dqSLCwkPHrVKc dPWB4E84zb4Q4 AVAfGCOaLMV4oND6hO9xq GlnbjogbGVmdDsgdmVydG guSTjlAPrjT764FCZclYr nPlBhdGllbnQg HJutYLm6I5JvYwvouOD+P I05VDUrAG11tHTbvEKqr3 ufbRo7TnBjZTSnHTU5zJc tHWpsu7ZmOKWe M26koQGsf2A8QNKsqKoqv XQzEsFggXC2oF1hDCybep spk4cbpghgTmgfx2qrwd6 6nG45T05gEZuj ZHRoPSIzMCUiIHZhbGlnb d4ejI1tWt7+RWPcvMO5zF A6qG1xQFUyFcI7YXxzO84 9InRvcCIvPjxj z5vfk2tzlMx2PwD8DMWok rEcoUpmEZD2v0NhNo09E2 9sIHdpZHRoPSIyMCUiIHZ oiXhdlj4vlA0a Ii8+WIXbhGV1hNS7hP9lF iKfYvG8BGodY753RjPjlL FyAavxW38iU0YyrIJ+PHR wVef4RABtxAxq FC4abONnDYpkFb5nQMS9D bNuReZvGMvqE1NfHRJnoo yuvwzbbVR6LRFaMXXmbY9 0Tk4inCirXHWb pLKOmZ5kyqjth8qkzdswG sZsFRBkKQm5RAi6SXLbeM pjNtWmYJD2KxK4PDH3rIW mqE8heBivjanm dD0xB4XxFRBzxtfbCi54v D3zAqFuZqF6SMueRja+Q1 TKS6TDDhqwW4IPWRuhYph vdGQ+PHRkIHN0 rOnwHXezZZKmuU4fBFGnG 5c4TcGaJhP0DJjnJ2UmMW DnhiviSj74vS3cIkQdEoT 0CNgqL5CgrrH9 OHUwcRMfLYccCWP7B48ew 6A1PYSzYDLtPVL3lHP0dA 1hbGlnbjogbGVmdDsgdmV ydGljYWwtYWxp R016CLZalLluZmI1TkJ3H bL4PoM6F8EoHgi2RITbeG blKB6uoEIhTEbrJl4vcKm spLgqRB8vIUZc ffnuUSDohC1zEWOpmXDrj RejTJ0mLRYtuthid631Hv YaRVK9KBNwxTDjD9EkwB9 yOiAjMDAwMDAw A4RczWQcONsnG010KOoiZ cO6ZBRwesOhQ7XoURSmqG pdIzK8g0K7Vh78FtDLIAW yczwvdGQ+PHRk ECB9kPrrJFzgCDIjmB9hP BCnA7f5MrCjXyR1JHhlY2 TmRDSuyvewYv84fI5qSmT sYbS9TSszC0Gz ljI6MKHhkUYiQVfbSBL9Z 79uq7M4ZRXhGKXlNRZ4yN F1oD4fvNjivqyqkZNxsQl gdmVydGljYWwt KQoxT898XAKydJopDgFgi WFsZTwvdGQ+WFAvZFQ6iW wwURfrJIAyxQ4aNEByT3q 5IwJkBiO4EIap B0GjMWYdgikhRh66sK3rH dAlDvJ0VEszQ9BjhtT9CH LrhKKtDAazAXK8C29zr7N 7FECvDOGePEB5 aOW5nU4urLwkejffbSOmw DsgdmVydGljYWwtYWxpZ2 66QBGwhAcvMv00qKFboAh otcQ5E2GwGkwj dHI+AP29ZYOaLU55jZTjs YPxd9zfgPc1NfLoJZWhSX G2qKxhXWxxh3OnVIMgV06 zfPMhr3X5SMBz pEncpFXlUlFysRT3uK6eJ Ounwklae4xzyezdTwhxx1 kkuq35iS05D88vPQwlMHN oPSIzMCUiIHZh fZbqmn2bgE2hRj1+PGNvb WM7lOO6kS5kSkIuVyD5PQ hpX755QuFobJFhAlmyo2o ak8lgdNp7YmKd NGZtnrKhpDjnKWI2o0DjQ p14E83rUHuqESLqMUHtII BsUIAifPixer7tcU2qLj5 +SZ1pl2akyg99 nW77iEN+PNMjYHR6oRndO QviJKPvvR9tROisKlU7AH NxRbRpoH39cRNqKEnyIf2 zxOeeoRbcLB6p NUHsountq874RmZfy8gkW UCobNTmZImfVXM8E47hp9 P0QNCwOZUnXOW7bRT2hQ1 hbGlnbjogbGVm dDsgdmVydGljYWwtYWxpZ 452MIPfrXbiJjCrcRKwQ0 gvfnCPUO1fXxxpgDL+PHR kPPZ2mMjmKEll PDPfuY6oQGGjO0l5DtKtZ tS5NGmmT5JtszF0HSWfoE DaHPOjmCOEpF4ohayox6k vcjogIzAwMDAw VIh7KJq6TSOhgMvjQrDoY RR6MwZ0EMG9eHZzpR6snQ luptevtJ8gUkx+RklOOjw vdGQ+PHRkIHN0 hJaqSHvcXXFjjX4qVGDoG 5g2QlAkEeP0SFnuQ1Aobc G4ALBzsGXhWZPmkIIOaN9 hkqrjc0epmyfa EdZlPAKoNSl8EFu1WTUvi VgqNjSiGRR5RqO0JQI2lF MoiW2ncOnbukerbK7aBrs +TVJOOjwvdGQ+ XEZrRIL0xYysRNzcVFVat M9qSJIhV1i0IqJxGsY2CN vrU2AhtsG6NLNvmUIpKMO aoFBNdT4yrrej n8rhooahDaCfRVYxHQs4H Zv0QEGxzGpyWyKeJFG7Lq T0NZA1wDAlvX1iwTedtrn dgP4hXgn+UGF5 QTW7KO65EJ78Z1UgQztya GFibGU+PHRhYmxlIHdpZH RoPScxMDAlJyBzdHlsZT0 pFk2pZJYbHDVx bGxh (more content not included)... [facility] Physician Orderon 07-28-2022 Physician Order [id number] [id number]:127 [facility] Consultation Noteon 07-17-19 Consultation Note [id number] .[id number]:127 [facility] 25(OH)D3 SerPl-mCncon 2022 25-hydroxyvitamin D3 [Mass/Vol] 41.8 ng/mL Normal 31.0-80.0 [facility] Comment on above: Order Comment: Speci men Type: BLOOD SPECIMENOrdering Facility: [facility] Address: [address] [place] [address] Result Comment: Clas sification of 25 [place] Vitamin D status: Deficiency/Insufficiency: < or = 30 ng/ml. Sufficiency/Optimal Levels: 31-80 ng/mL Toxicity: > 100 ng/mL. Test performed by chemiluminescent immunoassay. Performed By: #### 1 989-3 ####[facility]CL[facility] [id number] [facility] [id number] [address] [place] Bacteria Ur Culton Bacteria identified Cx Nom (U) ORGANISM ID: 1 >=100,000 CFU/ml Citrobacter freundii complex ORGANISM ID: 1 (CITROBACTER FREUNDII COMPLEX) ------ ANTIBIOTIC INTERPRETATION RAVINDER STATUS REFERENCE RANGE ------ Ampicillin R F Cefepime S <=1 F Susceptible <=2 , Susceptible-Dose Dependent >2 , Resistant >=16 Ertapenem S <=0.5 F Susceptible <=0.5 , Intermediate >.5 , Resistant >1 Meropenem S <=0.25 F Susceptible <=1 , Intermediate >1 , Resistant >2 Ampicillin/Sulbact R F Piperacillin/Tazobac S <=4 F Susceptible <=16 , Intermediate >16 , Resistant >64 Gentamicin S <=1 F Susceptible <=4 , Intermediate >4 , Resistant >8 Tobramycin S <=1 F Susceptible <=4 , Intermediate >4 , Resistant >8 Trimeth sulfameth S <=20 F Susceptible <=40 , Resistant >40 Ciprofloxacin S <=0.25 F Susceptible <0.5 , Intermediate >=.5 , Resistant >=1 Nitrofurantoin S <=16 F Susceptible <=32 , Intermediate >32 , Resistant >64 Abnormal [facility] Comment on above: Performed By: #### 6 30-4 ####[facility] [id number] [place] [address] [place] CBC W Auto Differential pane l (Bld)on 07-14-2022 Basophils (Bld) [#/Vol] 0.03 10*3/uL Normal <0.11 [facility] Comment on above: Order Comment: Speci men Type: BLOOD SPECIMENOrdering Facility: [facility] Address: [address] [place] [address] Performed By: #### 5 7021-8 ####[facility]CLIA [id number] [address] STATES OF [facility] Basophils/100 WBC (Bld) 0.6 % Normal [facility] Comment on above: Order Comment: Speci men Type: BLOOD SPECIMENOrdering Facility: [facility] Address: [address] [place] [address] Performed By: #### 5 7021-8 ####[facility]CLIA [id number] [address] [place] Differential cell count method Nom (Bld) Auto Normal [facility] Comment on above: Order Comment: Speci men Type: BLOOD SPECIMENOrdering Facility: [facility] Address: [address] [place] [address] Performed By: #### 5 7021-8 ####[facility]CLIA [id number] [place] [address] [place] Eosinophils (Bld) [#/Vol] 0.18 10*3/uL Normal <0.46 [facility] Comment on above: Order Comment: Speci men Type: BLOOD SPECIMENOrdering Facility: [facility] Address: [address] [place] [address] Performed By: #### 5 7021-8 ####[facility]CLIA [id number] [place] [address] [place] Eosinophils/100 WBC (Bld) 3.7 % Normal [facility] Comment on above: Order Comment: Speci men Type: BLOOD SPECIMENOrdering Facility: [facility] Address: [address] [place] [address] Performed By: #### 5 7021-8 ####[facility]CLIA [id number] [address] [place] Erythrocyte distribution width (RBC) [Ratio] 15.7 % High 11.5-15.0 [facility] Comment on above: Order Comment: Speci men Type: BLOOD SPECIMENOrdering Facility: [facility] Address: [address] [place], [place] [id number] Performed By: #### 5 7021-8 ####[facility] LABIA [id number] [place] [address] [place] Hematocrit (Bld) [Volume fraction] 31.3 % Low 36.0-46.0 [facility] Comment on above: Order Comment: Speci men Type: BLOOD SPECIMENOrdering Facility: [facility] Address: [address] [place], [place] [id number] Performed By: #### 5 7021-8 ####[facility]CLIA [id number] [place] [address] [place] Hemoglobin (Bld) [Mass/Vol] 10.1 g/dL Low 11.5-15.5 [facility] Comment on above: Order Comment: Speci men Type: BLOOD SPECIMENOrdering Facility: [facility] Address: [address] [address] Performed By: #### 5 7021-8 ####[facility] LABCLIA [id number] [place] [address] [place] Immature granulocytes (Bld) [#/Vol] 10*3/uL Normal <0.10 [facility] Comment on above: Order Comment: Speci men Type: BLOOD SPECIMENOrdering Facility: [facility] Address: [address] Performed By: #### 5 7021-8 ####[facility] LABCLIA [id number] [place] [address] [place] Immature granulocytes/100 WBC (Bld) 0.2 % Normal [facility] Comment on above: Order Comment: Speci men Type: BLOOD SPECIMENOrdering Facility: [facility] Address: [address] Performed By: #### 5 7021-8 ####[facility] LABCLIA [id number] [place] [address] [place] Lymphocytes (Bld) [#/Vol] 1.77 10*3/uL Normal 1.00-4.00 [facility] Comment on above: Order Comment: Speci men Type: BLOOD SPECIMENOrdering Facility: [facility] Address: [address] Performed By: #### 5 7021-8 ####[facility] LABCLIA [id number] [place] [address] [place] Lymphocytes/100 WBC (Bld) 36.0 % Normal [facility] Comment on above: Order Comment: Speci men Type: BLOOD SPECIMENOrdering Facility: [facility] Address: [address] Performed By: #### 5 7021-8 ####[facility] LABCLIA [id number] [place] [address] [place] MCH (RBC) [Entitic mass] 27.8 pg Normal 26.0-34.0 [facility] Comment on above: Order Comment: Speci men Type: BLOOD SPECIMENOrdering Facility: [facility] Address: [address] [place] [address] Performed By: #### 5 7021-8 ####[facility] [id number] [place] [address] [place] MCHC (RBC) [Mass/Vol] 32.3 g/dL Normal 30.5-36.0 [facility] Comment on above: Order Comment: Speci men Type: BLOOD SPECIMENOrdering Facility: [facility] Address: [address] [place] [address] Performed By: #### 5 7021-8 ####[facility] [id number] [place] [address] [place] MCV (RBC) [Entitic vol] 86.2 fL Normal 80.0-100.0 [facility] Comment on above: Order Comment: Speci men Type: BLOOD SPECIMENOrdering Facility: [facility] Address: [address] [place], [place] [address] Performed By: #### 5 7021-8 ####[facility] [id number] [place] [address] [place] Monocytes (Bld) [#/Vol] 0.39 10*3/uL Normal <0.87 [facility] Comment on above: Order Comment: Speci men Type: BLOOD SPECIMENOrdering Facility: [facility] Address: [address] [place], [place] [address] Performed By: #### 5 7021-8 ####[facility] [id number] [address] [place] Monocytes/100 WBC (Bld) 7.9 % Normal [facility] Comment on above: Order Comment: Speci men Type: BLOOD SPECIMENOrdering Facility: [facility] Address: [address] Performed By: #### 5 7021-8 ####[facility] LABCLIA [id number] [place] [address] [place] Neutrophils (Bld) [#/Vol] 2.53 10*3/uL Normal 1.45-7.50 [facility] Comment on above: Order Comment: Speci men Type: BLOOD SPECIMENOrdering Facility: [facility] Address: [address] Performed By: #### 5 7021-8 ####[facility] LABCLIA [id number] [place] [address] [place] Neutrophils/100 WBC (Bld) 51.6 % Normal [facility] Comment on above: Order Comment: Speci men Type: BLOOD SPECIMENOrdering Facility: [facility] Address: [address] Performed By: #### 5 7021-8 ####[facility] LABCLIA [id number] [place] [address] [place] Nucleated RBC (Bld) [#/Vol] 10*3/uL Normal <0.01 [facility] Comment on above: Order Comment: Speci men Type: BLOOD SPECIMENOrdering Facility: [facility] Address: [address] Performed By: #### 5 7021-8 ####[facility] LABCLIA [id number] [place] [address] [place] Nucleated RBC/100 WBC (Bld) [Ratio] 0.0 /100 WBC Normal [facility] Comment on above: Order Comment: Speci men Type: BLOOD SPECIMENOrdering Facility: [facility] Address: [address] [place], [place] [address] Performed By: #### 5 7021-8 ####[facility] LABIA [id number] [place] [address] [place] Platelet mean volume (Bld) [Entitic vol] 9.4 fL Normal 9.0-12.7 [facility] Comment on above: Order Comment: Speci men Type: BLOOD SPECIMENOrdering Facility: [facility] Address: [address] [place] [address] Performed By: #### 5 7021-8 ####[facility] LABIA [id number] [place] [address] [place] Platelets (Bld) [#/Vol] 304 10*3/uL Normal 150-400 [facility] Comment on above: Order Comment: Speci men Type: BLOOD SPECIMENOrdering Facility: [facility] Address: [address] [place] [address] Performed By: #### 5 7021-8 ####[facility] LABIA [id number] [place] [address] [place] RBC (Bld) [#/Vol] 3.63 10*6/uL Low 3.90-5.20 [facility] Comment on above: Order Comment: Speci men Type: BLOOD SPECIMENOrdering Facility: [facility] Address: [address] [place] [phone] Performed By: #### 5 7021-8 ####[facility] LABIA [id number] [place] [address] [place] WBC (Bld) [#/Vol] 4.91 10*3/uL Normal 3.70-11.00 [facility] Comment on above: Order Comment: Speci men Type: BLOOD SPECIMENOrdering Facility: [facility] Address: [address] [place] [phone] Performed By: #### 5 7021-8 ####[facility] LABIA [id number] [address] [address] [place] Basophils (Bld) [#/Vol] 0.03 10*3/uL <0.11 k/uL [facility] Basophils/100 WBC (Bld) 0.6 % [facility] Differential cell count method Nom (Bld) Auto [facility] Eosinophils (Bld) [#/Vol] 0.18 10*3/uL <0.46 k/uL [facility] Eosinophils/100 WBC (Bld) 3.7 % [facility] Erythrocyte distribution width (RBC) [Ratio] 15.7 % High 11.5 - 15.0 % [facility] Hematocrit (Bld) [Volume fraction] 31.3 % Low 36.0 - 46.0 % [facility] Hemoglobin (Bld) [Mass/Vol] 10.1 g/dL Low 11.5 - 15.5 g/dL [facility] Immature granulocytes (Bld) [#/Vol] <0.10 k/uL [facility] Immature granulocytes/100 WBC (Bld) 0.2 % [facility] Lymphocytes (Bld) [#/Vol] 1.77 10*3/uL 1.00 - 4.00 k/uL [facility] Lymphocytes/100 WBC (Bld) 36.0 % [facility] MCH (RBC) [Entitic mass] 27.8 pg 26.0 - 34.[address] [facility] MCHC (RBC) [Mass/Vol] 32.3 g/dL 30.5 - 36.0 g/dL [facility] MCV (RBC) [Entitic vol] 86.2 fL 80.0 - 100.[address] [facility] Monocytes (Bld) [#/Vol] 0.39 10*3/uL <0.87 k/uL [facility] Monocytes/100 WBC (Bld) 7.9 % [facility] Neutrophils (Bld) [#/Vol] 2.53 10*3/uL 1.45 - 7.50 k/uL [facility] Neutrophils/100 WBC (Bld) 51.6 % [facility] Nucleated RBC (Bld) [#/Vol] <0.01 k/uL [facility] Nucleated RBC/100 WBC (Bld) [Ratio] 0.0 /[address] [facility] Platelet mean volume (Bld) [Entitic vol] 9.4 fL 9.0 - 12.[address] [facility] Platelets (Bld) [#/Vol] 304 10*3/uL 150 - 400 k/uL [facility] RBC (Bld) [#/Vol] 3.63 10*6/uL Low 3.90 - 5.2 0 m/uL [facility] WBC (Bld) [#/Vol] 4.91 10*3/uL 3.70 - 11. 00 k/uL [facility] CNOVon 07-14-2022 CNOV Office Visit (UROLMN ) ELIZABETH IRVIN ([id number]) 1965 F Date Time Provider Department 07/14/22 10:00 AM SAMY ODONNELL During your visit today, we recorded the following information about you: Pulse Blood pressure Weight Height 84/minute 121/80 62.3 kg 1.579 m Samy Odonnell MD 07/14/2022 5:19 PM Signed STAFF UROLOGY NOTE: We had the pleasure of seeing Elizabeth Irvin in our Multidisciplinary Stone Clinic today. Consultation requested by Dr. Blum for an opinion regarding large residual left mid-ureteral stone (stent in place) plus 14-15 mm right renal stone, not obstructing. My final recommendations will be communicated back to the requesting physician by way of shared Medical record or letter to requesting physician via US mail. She is a pleasant 56 year old female who first had a stone episode in 1991. She has passed 0 stones She has not had a prior 24-hour urine metabolic evaluation. She has had 3 shockwave lithotripsies, 1 ureteroscopies and 0 percutaneous nephrolithotomies She has the following family history of stones: Side of Family Relationship Number of Stones Maternal Aunt Maternal Mother Significant comorbidities include:MedicalDiabet es,Hypertension,Gastr ic Bypass The patient has been experiencing pain that is located in the following location(s): left flank. The pain is aggravated by movement and alleviated by rest (correlates with stent insertion). The patient has been experiencing this pain for 21 days. The intensity ranges up to a level 4 out of 10. The pain duration is constant. The characteristics and location of the pain are suggestive of a musculoskeletal origin. She was counseled on the most recent imaging studies. CT Scan Imaging Date: 03/19/22 Stone Side Location Length (mm) Width (mm) HU STSD 1 R kidney 15 907 2 L mid-ureter 10 3 L distal ureter 7 4 5 Renal US or KUB Imaging Date: Stone Side Location Length (mm) Width (mm) 1 2 3 4 5 She was counseled on the options of: 1. Observation - risks including stone growth, stone movement, pain, impact on renal function. Chance of spontaneous stone passage of the largest stone: 0% 2. Shockwave lithotripsy - risks of bleeding (1 in 1000 severe bleed), residual fragments, need for a secondary procedure. Success based on size, location, hounsfield units and cnos-pb-zsmwa distance: 0% 3. Ureteroscopy - risks of UTI, ureteral injury (1 in 1000 severe injury requiring major surgery), morbidity from ureteral stent Success: 60-70% for right stone; 80+% for left mid-ureteral stone. 4. PCNL - risks of lung injury (1%), transfusion (5%), embolization (1%), injury to other organs, need for secondary procedure. Success: 95% Imp: The primary encounter diagnosis was Nephrolithiasis. Diagnoses of Hydronephrosis with urinary obstruction due to ureteral calculus, Left flank pain, and Left renal atrophy were also pertinent to this visit. Plan: Based on this discussion, she wishes to undergo nuclear renal scan to assess remaining function in the left kidney; then decide on further stone surgery on left vs. left nephrectomy (if very poor function). Right PCNL to clear right stone (mini-perc). I spent >60 minutes in this visit (including reviewing x-rays and records plus patient discussion), with more than 50% of the total ihou-kn-uvhu time of the visit devoted to patient counseling/coordinati on of care. Samy Odonnell MD Director, Surgical Stone Disease [facility], [facility] Pager [phone] 07/14/2022 Allergies As of Date: 07/14/2022 Noted Allergy Reaction PREDNISOLONE 07/14/2022 4 - Hives PREDNISONE 04/24/2022 4 - Hives VALACYCLOVIR 04/24/2022 4 - Hives Date Reviewed: 07/14/2022 Reviewed by: ANNALISE Reyes - Fully Assessed Reason for Visit: Consult [173] Kidney Stones [01192] Primary Visit Diagnosis:Nephrolithi asis [N20.0] Other Visit Diagnoses:Hydronephro sis with urinary obstruction due to ureteral calculus [N13.2] Left flank pain [R10.9] Left renal atrophy [N26.1] Order(s):NM RENAL FLOW/FXN W PHARM [[id number]] Order #: [id number] FUTURE CBC + DIFF [SQCBCDIF] Order #: [id number] FUTURE COMP METABOLIC PANEL [SQCMP] Order #: [id number] FUTURE PTH INTACT BLD [SQPTHI] Order #: [id number] FUTURE VITAMIN D 25 HYDROXY [SQVITD] Order #: [id number] FUTURE URIC ACID BLOOD [SQURIC] Order #: [id number] FUTURE CALCIUM IONIZED BLOOD [SQICA] Order #: [id number] FUTURE TYPE AND SCREEN,30 DAY [RWSNCN24] Order #: [id number] FUTURE CONFIRM BLOOD TYPE [SQCONABO] Order #: [id number] FUTURE Prescriptions as of 07/15/2022 - lisinopril (ZESTRIL, PRINIVIL) 20 mg tablet Take by mouth. - DULoxetine (CYMBALTA) 60 mg capsule - rOPINIRole (REQUIP) 1 mg tablet - OZEMPIC 0.25 mg or 0.5 mg(2 mg/1.5 mL) pen Problem List As Of Date: 07/14/2022 (None) Disposition: Return for Nuclear re (more content not included)... Normal [facility] CONFIRM BLOOD TYPEon [address] [facility] Rh Nom (Bld) Positive [facility] ABO O Normal [facility] Comment on above: Order Comment: Speci men Type: BLOOD SPECIMEN [facility] Address: [address] [place] [phone] Performed By: #### T SCR30 #### [facility] CLIA [id number] [address] [place] Rh Nom (Bld) Positive Normal [facility] Comment on above: Order Comment: Speci men Type: BLOOD SPECIMEN [facility]: [facility] Address: [address] [phone] Performed By: #### T SCR30 #### [facility] CLIA [id number] [facility] [address] [place] Comprehensive metabolic 2000 panelon 07-14-2022 Albumin [Mass/Vol] 3.7 g/dL Low 3.9 - 4.9 g/dL [facility] ALP [Catalytic activity/Vol] 65 U/L 34 - 123 U/L [facility] ALT [Catalytic activity/Vol] 9 U/L 7 - 38 U/L [facility] Anion gap [Moles/Vol] 12 mmol/L 9 - 18 mmol/L [facility] AST [Catalytic activity/Vol] 17 U/L 13 - 35 U/L [facility] Bilirubin [Mass/Vol] 0.3 mg/dL 0.2 - 1 .3 mg/dL [facility] Calcium [Mass/Vol] 9.1 mg/dL 8.5 - 10. 2 mg/dL [facility] Chloride [Moles/Vol] 111 mmol/L High 97 - 10 5 mmol/L [facility] CO2 [Moles/Vol] 19 mmol/L Low 22 - 30 mmol/L [facility] Creatinine [Mass/Vol] 2.85 mg/dL High 0.58 - 0.96 mg/dL [facility] Estimated Glomerular Filtration Rate 19 mL/min/1.73m Low >=60 mL/min/1.73m [facility] Glucose [Mass/Vol] 80 mg/dL 74 - 99 mg/dL [facility] Potassium [Moles/Vol] 5.0 mmol/L 3.7 - 5.1 mmol/L [facility] Protein [Mass/Vol] 6.1 g/dL Low 6.3 - 8.0 g/dL [facility] Sodium [Moles/Vol] 142 mmol/L 136 - 144 mmol/L [facility] Urea nitrogen [Mass/Vol] 28 mg/dL High 7 - 21 mg/dL [facility] Albumin [Mass/Vol] 3.7 g/dL Low 3.9-4.9 [facility] Comment on above: Order Comment: Speci men Type: BLOOD SPECIMENOrdering Facility: [facility] Address: [address] [place] [address] Performed By: #### 2 4323-8, 2730-8, 3083-1 ####[facility] LABCLIA [id number] [place] [address] [place] ALP [Catalytic activity/Vol] 65 U/L Normal 34-123 [facility] Comment on above: Order Comment: Speci men Type: BLOOD SPECIMENOrdering Facility: [facility] Address: [address] [place] [address] Performed By: #### 2 4323-8, 2730-12, 3083-05 ####[facility] LABCLIA [id number] [place] [address] [place] ALT [Catalytic activity/Vol] 9 U/L Normal 7-38 [facility] Comment on above: Order Comment: Speci men Type: BLOOD SPECIMENOrdering Facility: [facility] Address: [address] [place] [address] Performed By: #### 2 4323-8, 8, 3083-05 ####[facility] LABIA [id number] [place] [address] [place] [facility] Anion gap [Moles/Vol] 12 mmol/L Normal 9-18 [facility] Comment on above: Order Comment: Speci men Type: BLOOD SPECIMENOrdering Facility: [facility] Address: [address] [place], [place] [address] Performed By: #### 2 4323-8, 8, 3083- ####[facility] LABCLIA [id number] [place] [address] [place] AST [Catalytic activity/Vol] 17 U/L Normal 13-35 [facility] Comment on above: Order Comment: Speci men Type: BLOOD SPECIMENOrdering Facility: [facility] Address: [address] [address] Performed By: #### 2 4323-8, 8, 3083- ####[facility] LABCLIA [id number] [place] [address] [place] Bilirubin [Mass/Vol] 0.3 mg/dL Normal 0.2-1.3 [facility] Comment on above: Order Comment: Speci men Type: BLOOD SPECIMENOrdering Facility: [facility] Address: [address] [address] Performed By: #### 2 4323-8, 8, 3083-05 ####[facility] LABCLIA [id number] [place] [address] [place] Calcium [Mass/Vol] 9.1 mg/dL Normal 8.5-10.2 [facility] Comment on above: Order Comment: Speci men Type: BLOOD SPECIMENOrdering Facility: [facility] Address: [address] [address] Performed By: #### 2 4323-8, 2730-12, 3083-05 ####[facility] LABCLIA [id number] [place] [address] [place] Chloride [Moles/Vol] 111 mmol/L High 97-105 [facility] Comment on above: Order Comment: Speci men Type: BLOOD SPECIMENOrdering Facility: [facility] Address: [address] Performed By: #### 2 4323-8, 8, 3083-05 ####[facility] LABCLIA [id number] [address] [address] [place] CO2 [Moles/Vol] 19 mmol/L Low 22-30 [facility] Comment on above: Order Comment: Speci men Type: BLOOD SPECIMENOrdering Facility: [facility] Address: [address] [phone] Performed By: #### 2 4323-8, 2730-12, 3083-05 ####[facility] LABIA [id number] [place] [address] [place] Creatinine [Mass/Vol] 2.85 mg/dL High 0.58-0.96 [facility] Comment on above: Order Comment: Speci men Type: BLOOD SPECIMENOrdering Facility: [facility] Address: [address] [address] Performed By: #### 2 4323-8, 2730-12, 3083-05 ####[facility] LABIA [id number] [place] [address] [place] ESTIMATED GLOMERULAR FILTRATION RATE 19 mL/min/1.73m??? Low >=60 [facility] Comment on above: Order Comment: Speci men Type: BLOOD SPECIMENOrdering Facility: [facility] Address: [address] [address] Result Comment: Reema mated Glomerular Filtration Rate (eGFR) is calculated using the 2020 CKD-EPI creatinine equation. This equation utilizes serum creatinine, sex, and age as parameters. The creatinine assay has traceable calibration to isotope dilution-mass spectrometry. Refer to KDIGO guidelines for clinical interpretation. In patients with unstable renal function, e.g. those with acute kidney injury, the eGFR may not accurately reflect actual GFR. Performed By: #### 2 4323-8, 2730-12, 3083-05 ####[facility] LABIA [id number] [place] [id number] [place] Glucose [Mass/Vol] 80 mg/dL Normal 74-99 [facility] Comment on above: Order Comment: Speci men Type: BLOOD SPECIMENOrdering Facility: [facility] Address: [address] [address] Result Comment: The [place] [employer] (ADA) provides guidance for cutoff values for fasting glucose and random glucose. The ADA defines fasting as no caloric intake for at least 8 hours. Fasting plasma glucose results between 100 to 125 mg/dL indicate increased risk for diabetes (prediabetes). Fasting plasma glucose results greater than or equal to 126 mg/dL meet the criteria for diagnosis of diabetes. In the absence of unequivocal hyperglycemia, results should be confirmed by repeat testing. In a patient with classic symptoms of hyperglycemia or hyperglycemic crisis, random plasma glucose results greater than or equal to 200 mg/dL meet the criteria for diagnosis of diabetes. Reference: Standards of Medical Care in Diabetes 2016, [place] [employer]. Diabetes Care. 2016.39(Suppl 1). Performed By: #### 2 4323-8, 2730-8, 3083- ####[facility] LABIA [id number] [place] [address] [place] Potassium [Moles/Vol] 5.0 mmol/L Normal 3.7-5.1 [facility] Comment on above: Order Comment: Speci men Type: BLOOD SPECIMENOrdering Facility: [facility] Address: [address] [address] Performed By: #### 2 4323-8, 2730-12, 3083-05 ####[facility] [id number] [place] [address] [place] Protein [Mass/Vol] 6.1 g/dL Low 6.3-8.0 [facility] Comment on above: Order Comment: Speci men Type: BLOOD SPECIMENOrdering Facility: [facility] Address: [address] Performed By: #### 2 4323-8, 8, 3083- ####[facility] LABIA [id number] [place] [address] [place] Sodium [Moles/Vol] 142 mmol/L Normal 136-144 [facility] Comment on above: Order Comment: Speci men Type: BLOOD SPECIMENOrdering Facility: [facility] Address: [address] [place] [address] Performed By: #### 2 4323-8, 2730-8, 4-1 ####[facility] LABCLIA [id number] [place] [address] [place] Urea nitrogen [Mass/Vol] 28 mg/dL High 7-21 [facility] Comment on above: Order Comment: Speci men Type: BLOOD SPECIMENOrdering Facility: [facility] Address: [address] [address] Performed By: #### 2 4323-8, 2730-8, 4-1 ####[facility] LABCLIA [id number] [place] [address] [place] PTH INTACT BLDon 07-14-2022 Parathyrin.intact [Mass/Vol] 125 pg/mL High 15 - 65 pg/mL [facility] PTH-Intact SerPl-mCncon 02 Parathyrin.intact [Mass/Vol] 125 pg/mL High 15-65 [facility] Comment on above: Order Comment: Speci men Type: BLOOD SPECIMENOrdering Facility: [facility] Address: [address] [address] Performed By: #### 2 4323-8, 2730-8, 3083- ####[facility] LABCLIA [id number] [place] [address] [place] TYPE AND SCREEN,[address] [facility] HIstorical Ab Scr Status Negative [facility] Rh Nom (Bld) Positive [facility] ABO O Normal [facility] Comment on above: Order Comment: Speci men Type: BLOOD SPECIMEN [facility]: [facility] Address: [address] Performed By: #### T SCR30 #### [facility] CLIA [id number] [address] [place] [address] [place] HISTORICAL AB SCR STATUS Negative Normal [facility] Comment on above: Order Comment: Speci men Type: BLOOD SPECIMEN [facility] Address: [address] Performed By: #### T SCR30 #### CC [facility] BLOOD BANK CLIA [id number] [address] [place] [address] [place] Rh Nom (Bld) Positive Normal [facility] Comment on above: Order Comment: Speci men Type: BLOOD SPECIMEN [facility] Address: [address] Performed By: #### T SCR30 #### [facility] BLOOD BANK CLIA [id number] [address] [place] [address] [place] URIC ACID BLOODon 07-14-2022 Urate [Mass/Vol] 6.7 mg/dL High 2.5 - 6.6 mg/dL [facility] URINALYSIS, REFLEX MICROSCOP ICon 07-14-2022 Bilirubin Ql (U) Negative Normal Negative [facility] Comment on above: Order Comment: Speci men Type: URINE SPECIMENOrdering Facility: [facility] Address: [address] [address] Performed By: #### L [id number] ####[facility] [id number] [place] [address] [place] Clarity (Unsp spec) Cloudy Abnormal Clear [facility] Comment on above: Order Comment: Speci men Type: URINE SPECIMENOrdering Facility: [facility] Address: [address] Performed By: #### L [id number] ####[facility] LABCL[facility] [id number] [place] [address] [place] Color (U) Light Yell Abnormal Yellow [facility] Comment on above: Order Comment: Speci men Type: URINE SPECIMENOrdering Facility: [facility] Address: [address] Performed By: #### L [id number] ####[facility] LABCL[facility] [id number] [place] [address] [place] Epithelial cells LM.HPF (Urine sed) [#/Area] Few Normal [facility] Comment on above: Order Comment: Speci men Type: URINE SPECIMENOrdering Facility: [facility] Address: [address] [place] [address] Performed By: #### L [id number] ####[facility]CL[facility] [id number] [place] [address] [place] Glucose Test strip (U) [Mass/Vol] Negative Normal Trace, Negative [facility] Comment on above: Order Comment: Speci men Type: URINE SPECIMENOrdering Facility: [facility] Address: [address] [place] [address] Performed By: #### L [id number] ####[facility] [id number] [place] [address] [place] Hemoglobin Ql (U) 2+ Abnormal Negative, Trace [facility] Comment on above: Order Comment: Speci men Type: URINE SPECIMENOrdering Facility: [facility] Address: [address] [place], [place] [address] Performed By: #### L [id number] ####[facility]CL[facility] [id number] [place] [address] [place] Hyaline casts (Urine sed) [#/Area] 1-3 /LPF Abnormal 0 /LPF [facility] Comment on above: Order Comment: Speci men Type: URINE SPECIMENOrdering Facility: [facility] Address: [address] [place], [place] [address] Performed By: #### L [id number] ####[facility] [id number] [place] [address] [place] Ketones Ql (U) Negative Normal Negative, Trace [facility] Comment on above: Order Comment: Speci men Type: URINE SPECIMENOrdering Facility: [facility] Address: [address] [place], [place] [id number] Performed By: #### L [id number] ####[facility] [id number] [address] [place] [facility] Leukocyte esterase Test strip Ql (U) 500 Nicholas/uL Abnormal Negative, 25 Nicholas/uL [facility] Comment on above: Order Comment: Speci men Type: URINE SPECIMENOrdering Facility: [facility] Address: [address] [place] [address] Performed By: #### L [id number] ####[facility] [id number] [place] [address] [place] Nitrite Ql (U) Negative Normal Negative [facility] Comment on above: Order Comment: Speci men Type: URINE SPECIMENOrdering Facility: [facility] Address: [address] [place] [address] Performed By: #### L [id number] ####[facility] [id number] [place] [address] [place] pH (U) 5.5 [pH] Normal 5.0-8.0 [facility] Comment on above: Order Comment: Speci men Type: URINE SPECIMENOrdering Facility: [facility] Address: [address] [place] [address] Performed By: #### L [id number] ####[facility] [id number] [address] [place] [facility] Protein (U) [Mass/Vol] 1+ Abnormal Trace , Negative [facility] Comment on above: Order Comment: Speci men Type: URINE SPECIMENOrdering Facility: [facility] Address: [address] [place], [place] [address] Performed By: #### L [id number] ####[facility] [id number] [place] [address] [place] RBC LM.HPF (Urine sed) [#/Area] /[HPF] Abnormal 0-3 /HPF [facility] Comment on above: Order Comment: Speci men Type: URINE SPECIMENOrdering Facility: [facility] Address: [address] [place] [address] Performed By: #### L [id number] ####[facility] [id number] [place] [address] [place] Specific gravity (U) [Rel density] 1.016 Normal 1.005-1.030 [facility] Comment on above: Order Comment: Speci men Type: URINE SPECIMENOrdering Facility: [facility] Address: [address] [place] [address] Performed By: #### L [id number] ####[facility] [id number] [place] [address] [place] Urobilinogen Ql (U) Negative Normal Negative [facility] Comment on above: Order Comment: Speci men Type: URINE SPECIMENOrdering Facility: [facility] Address: [address] [place] [address] Performed By: #### L [id number] ####[facility] [id number] [place] [address] [place] WBC LM.HPF (Urine sed) [#/Area] /[HPF] Abnormal 0-5 /HPF [facility] Comment on above: Order Comment: Speci men Type: URINE SPECIMENOrdering Facility: [facility] Address: [address] [place], [place] [address] Performed By: #### L [id number] ####[facility] [id number] [place] [address] [place] Urate SerPl-mCncon 3 Urate [Mass/Vol] 6.7 mg/dL High 2.5-6.6 [facility] Comment on above: Order Comment: Speci men Type: BLOOD SPECIMENOrdering Facility: [facility] Address: [address] [place] [address], [place] [address] Performed By: #### 2 4323-8, 2731-8, 3084-1 ####[facility] [id number] [place] [place] [address] [place] VITAMIN D 25 HYDROXYon 07-14 25-hydroxyvitamin D3 [Mass/Vol] 41.8 ng/mL 31.0 - 80.0 ng/mL [facility] Patient Educationon 07-07-19 Patient Education Urology Dietary Guidelines to Help Prevent Kidney Stones Kidney stones are deposits of minerals and salts that form inside your kidneys. Your risk of developing kidney stones may be greater depending on your diet, your lifestyle, the medicines you take, and whether you have certain medical conditions. Most people can reduce their chances of developing kidney stones by following the instructions below. Depending on your overall health and the type of kidney stones you tend to develop, your dietitian may give you more specific instructions. What are tips for following this plan? Reading food labels ? Choose foods with no salt added or low-salt labels. Limit your sodium intake to less than 1500 mg per day. ? Choose foods with calcium for each meal and snack. Try to eat about 300 mg of calcium at each meal. Foods that contain 200?500 mg of calcium per serving include: ? 8 oz (237 ml) of milk, fortified nondairy milk, and fortified fruit juice. ? 8 oz (237 ml) of kefir, yogurt, and soy yogurt. ? 4 oz (118 ml) of tofu. ? 1 oz of cheese. ? 1 cup (300 g) of dried figs. ? 1 cup (91 g) of cooked broccoli. ? 1?3 oz can of sardines or mackerel. ? Most people need 1000 to 1500 mg of calcium each day. Talk to your dietitian about how much calcium is recommended for you. Shopping ? Buy plenty of fresh fruits and vegetables. Most people do not need to avoid fruits and vegetables, even if they contain nutrients that may contribute to kidney stones. ? When shopping for convenience foods, choose: ? Whole pieces of fruit. ? Premade salads with dressing on the side. ? Low-fat fruit and yogurt smoothies. ? Avoid buying frozen meals or prepared deli foods. ? Look for foods with live cultures, such as yogurt and kefir. Cooking ? Do not add salt to food when cooking. Place a salt shaker on the table and allow each person to add his or her own salt to taste. ? Use vegetable protein, such as beans, textured vegetable protein (TVP), or tofu instead of meat in pasta, casseroles, and soups. Meal planning ? Eat less salt, if told by your dietitian. To do this: ? Avoid eating processed or premade food. ? Avoid eating fast food. ? Eat less animal protein, including cheese, meat, poultry, or fish, if told by your dietitian. To do this: ? Limit the number of times you have meat, poultry, fish, or cheese each week. Eat a diet free of meat at least 2 days a week. ? Eat only one serving each day of meat, poultry, fish, or seafood. ? When you prepare animal protein, cut pieces into small portion sizes. For most meat and fish, one serving is about the size of one deck of cards. ? Eat at least 5 servings of fresh fruits and vegetables each day. To do this: ? Keep fruits and vegetables on hand for snacks. ? Eat 1 piece of fruit or a handful of berries with breakfast. ? Have a salad and fruit at lunch. ? Have two kinds of vegetables at dinner. ? Limit foods that are high in a substance called oxalate. These include: ? Spinach. ? Rhubarb. ? Beets. ? Potato chips and persian fries. ? Nuts. ? If you regularly take a diuretic medicine, make sure to eat at least 1?2 fruits or vegetables high in potassium each day. These include: ? Avocado. ? Banana. ? Yell, prune, carrot, or tomato juice. ? Baked potato. ? Cabbage. ? Beans and split peas. General instructions ? Drink enough fluid to keep your urine clear or pale yellow. This is the most important thing you can do. ? Talk to your health care provider and dietitian about taking daily supplements. Depending on your health and the cause of your kidney stones, you may be advised: ? Not to take supplements with vitamin C. ? To take a calcium supplement. ? To take a daily probiotic supplement. ? To take other supplements such as magnesium, fish oil, or vitamin B6. ? Take all medicines and supplements as told by your health care provider. ? Limit alcohol intake to no more than 1 drink a day for non women and 2 drinks a day for men. One drink equals 12 oz of beer, 5 oz of wine, or 1? oz of hard liquor. ? Lose weight if told by your health care provider. Work with your dietitian to find strategies and an eating plan that works best for you. What foods are not recommended? Limit your intake of the following foods, or as told by your dietitian. Talk to your dietitian about specific foods you should avoid based on the type of kidney stones and your overall health. Grains Breads. Bagels. Rolls. Baked goods. Salted crackers. Cereal. Pasta. Vegetables Spinach. Rhubarb. Beets. Canned vegetables. Pickles. Olives. Meats and other protein foods Nuts. Nut butters. Large portions of meat, poultry, or fish. Salted or cured meats. Deli meats. Hot dogs. Sausages. Dairy Cheese. Beverages Regular soft drinks. Regular vegetable juice. Seasonings and other foods Seasoning blends with salt. Salad (more content not included)... Normal [facility] 07-07-2022 [facility] [id number] .[id number]:127 Normal [facility] Urology Office/Clinic Noteon 07-07-2022 Urology Office/Clinic Note Chief Complaint pt here for f/u to KUB HPI Staff Pt is a 56yr old female here PO ESWL done 06/18/22 and 1 week f/u to KUB done 07/06/22. KUB shows LEFT stent placement with coiling in the midportion of the stent. 14mm proximal LEFT ureteral stone. 16mm Right renal calculus. Pts previous DX: kidney stones, ureteral stone. Pt currently taking oxybutynin 5mg QD. Pts UA shows positive for nitrates and small leuks. Pt states she was on an antibiotic before the KUB for an infection. Dysuria: yes, pain and burning Incomplete bladder emptying: denies Hematuria: no visible but UA shows small amounts Frequency: denies Urgency: yes Nocturia: denies Stream: strong stream, no start stop, no hesitation Leaking: sometimes Post void dripping: denies Wearing pads/ Depends: sometimes will wear a pad just in case Urge incontinence: yes Stress incontinence: denies Incontinence without Sensory Awareness: denies Abdominal pain: denies Flank pain: yes, more so on the left side Sexual complaints: _ History of Present Illness Tests reviewed: reviewed UA I have reviewed the previous health record information and history for this patient from Dr. Blum. I have reviewed and verified the staff HPI to be accurate for this encounter. There have been no associated fever, chills, flank pain, or blood in the urine. Denies any urinary infections since last encounter. Review of Systems PHQ Score Initial Depression Screen Score: 0 ROS - Provider Constitutional: denies weight loss, denies hot flashes. Eyes: denies eye problems. Gastrointestinal: denies nausea, denies vomiting. Cardiovascular: denies chest pain or angina. Integumentary: no dryness Musculoskeletal: denies musculoskeletal symptoms. ENMT: denies otolaryngeal symptoms. Respiratory: no shortness of breath. Heme/Lymph: denies easy bleeding tendency, denies easy bruising tendency. Psychiatric: no confusion, no anxiety. Genitourinary: See HPI. Physical Exam Vitals & Measurements HR: 76(Peripheral) BP: 115/86 WT: 75.1 kg WT: 165.22 lb General Appearance: alert , no acute distress, well nourished, well developed female. Genitourinary: bladder nonpalpable, no flank pain. Assessment/Plan 1. Ureteral stone (N20.1: Calculus of ureter) S/p cysto/basket extraction/stent placement done 03/19/22 for bilateral ureteral calculi and hydro. KUB done 03/31/22 shows stable large 1.3 cm stone projecting over right kidney. Stent within left ureter which appears to be folded/overlapping within the mid ureter. Stable 10 mm stone within the proximal left ureter. 2. Right renal stone (N20.0: Calculus of kidney) KUB done 03/31/22 shows stable large 1.3 cm stone projecting over right kidney. Stent within left ureter which appears to be folded/overlapping within the mid ureter. Stable 10 mm stone within the proximal left ureter. S/p Left ESWL done 06/18/22 for bilateral renal stones. KUB done 07/06/20 shows 16 mm oval calcification overlies the Right renal pelvis. 14 mm oval calcification overlies the proximal portion of the Left ureteral stent. Left ureteral stent in adequate position. There is coiling of the stent in the mid ureteral region. Pt currently taking Oxybutynin 5 mg QD. Pt likely has CaOx mono stone, hard, difficult to break with ESWL. Reports recovery after ESWL was difficult. Had pain/bruising which continue to resolve. Explained further surgical intervention. Will refer to Dr. Odonnell. -pt to go to [facility] to get CD for CT scan and retrograde for Dr. Odonnell She has had some nagging left-sided flank pain even after resolution of the small ecchymosis on the left flank. She is working about 60 hours/week however with an indwelling stent. CT scan repeat could be considered if the pain persist and or becomes more significant 3. UTI (urinary tract infection) following induced termination (O04.88: Urinary tract infection following (induced) termination of ) UA today shows + nitrites, small leuks, small blood. Pt was on abx before the KUB for an infection. The summary is that this patient has about a 14 mm stone in the left UPJ area and she is now status post external lithotripsy which caused essentially a crack in the mid section of the stone. Is very dense and most likely is a calcium oxalate monohydrate stone. Due to the ineffectiveness of external lithotripsy she most likely will require a laser lithotripsy but there is difficulty with the access into the kidney. She has a significant ureteral kink as noted even with the latest KUB. I believe there will be significant difficulty getting a retrograde ureteroscopic approach accomplished. Therefore I believe she needs PCNL and we will refer her to Dr. Odonnell at the [facility]. She also has a very large stone in the right kidney which is approaching 2 cm and will most likely need a PCNL on that side as well. I have instructed her to grain picker her CAT scan and retrograde pyelogram onto a CD so she can take thi (more content not included)... Normal [facility] Comment on above: Result Comment: Elec tronically Signed By: TRI REED, Chalo Frazier\.br\Date and Time Signed: 07/07/22 10:09 EST\.br\Electronically Co-Signed By: Jennifer Hamilton\.br\Date and Time Co-Signed: 07/07/22 10:02 EST\.br\Electronically Co-Signed By: Jennifer Hamilton\.br\Date and Time Co-Signed: 07/07/22 10:03 EST XR KUBon 07-06-2022 XR KUB [facility] [place] [address] XRay Report Signed Patient: Elizabeth Irvin MR#: [id number] 168 : 1965 Acct:[id number] Age/Sex: 56 / F ADM Date: 07/06/22 Loc: XD Room: Type: [facility] Attending Dr: Chalo Blum MD Copies to: Chalo Blum MD Ordering Provider: Chalo Blum MD Date of Service: 07/06/22 XR/XR KUB: N20.0 KUB COMPARISON: None HISTORY: Lithotripsy 3 weeks ago for left-sided kidney stones. Nondistended air-filled small bowel loops identified. 16 mm oval calcification overlies the RIGHT renal pelvis. 14 mm oval calcification overlies the proximal portion of the LEFT ureteral stent. LEFT ureteral stent in adequate position. There is coiling of the stent in the mid ureteral region. No soft tissue mass seen. Bony structures are intact. XR/XR KUB IMPRESSION: LEFT stent placement with coiling in the midportion of the stent. 14 mm proximal LEFT ureteral stone. 16 mm RIGHT renal calculus. Impression dictated by: Michael Cheung M.D.07/06/2022 3:03 PM Dictation Location: [place] [address] Transcribed By: [facility] 07/06/22 1503 Dictated By: Michael Cheung DO 07/06/22 1500 Signed By: 07/06/22 1503 [facility] IntraOperative Documentson 0 06-23-2022 IntraOperative Documents [id number]# 1.00CD:127 [facility] Postoperative Documentson Postoperative Documents [id number]# 1.00CD:127 [facility] Coding Summary.on 06-22-2022 Coding Summary. CD:[id number] G h0bWw+PGhlYWQ+HC8CXEM zH15dwEDsdU2ER7rJOH7N YROBPZHLIP8XOC8bgRT9H CvrS0FbmjZo YhocfYDsQH23TRx1YZB9k RtlEJbmoX5ghSIdR6d0Ps OyAS55sA96RJsvSNXyUyQ 3LjZpbjsgbWFy I2ipMxRrvPKqEfh+PHRhY mxlIHdpZHRoPScxMDAlJy XmwBlrEO0oCl4tJPUhICS vbGxhcHNlOiBj k1zvGUBjAAjqWV7mwMbtA 3WjzLK4DYKqz6y0Zj33yJ I+ZOVhYIV9hCmrDTlnl66 0FdHcx2wwNZG1 oJTkEHimRCY4N25iq0P9X QRbERXrOAT4zJO6mF0gyM etpscaF3OvhIZrZtE0GEU 6bPKbeS3rpWxj vecigZ9mLsb+B58JMZ9DT ENMNL5EZot7I5YzTblrzV I+MU76WZRvND20iRJlyLH yx3wlzLn6JsRu KOSaJTB3dGveCCfvb6IqJ ECgM55diOOtt9N2QOTyqV zeoXJoBgGwkUY5mE8xBXc dwsuyf0hueejh Nxdxs7yfkv39lV94W67xO ZqcBPAcIVW6SJJyORImqC tezy9kbN0fSn9+RXxuv7n kf8mppDe5TrVg YEKuqlFicKvvLBU0e2GvI c35M5IldAdny9NfOfr5ah 54gIGgf5R7eFW2EPtsQXX zmM8hONozRwD6 ZOVmNnDslQ19gJHfRKhpB w8nbLsydMwqKY5eZRQhpi moWSXioE6vSZHokQWgyHg fGD2kEZColjxx s756ByXmHAR6QCGbdKPnW 6XpdI7vZtFuJSXaKQRfJ3 RutTRoPMilI370VDahNpD 1XPYcjkBhV0Cn FWYaoCraQnZ8r8T5Gz3Ie 9SezgfgGCE6KKdxTVJpFr EkEnRwUyS5W2RqZft6XON tnThuRP3vR9Fr PRHdapqvdhxigVU1YDEqQ QZksB65wYVhXIbkGs3oh7 X1c315HCRmJVDdzP46Ya7 udDogMTBwdCBU lR5fugila0wcbtqzFsEfX OWmWOi0JMr0WZFzfQtdKp NrVZA8GrE8BUJ1iYZdfI5 otZxxzgpagO4x Oyc+N51kfP6tNSP0HXT5l plsOFYcwlKrTC89ZY11N1 RyPjwvdGFibGU+PGRpdiB nfNutFK0pKgLb s3iym7VtQPjrL2NbHXMuN TseSbn6GBOsUBO8tRG2wA 9rWBJnDTdgr5R6jNO7B1M lvwTcxn6so8md FIQmYJooS30lwDLdf8I7N PUduGH8NSSsrHyjEfIcrU 93Oyc+NYNviJqto2ToSwh no0vwr1awfOo7 GqNmQMHwbiBryEmsQAU4p 5YhJn48J52qEKulPHGdPB BlBEWqXKAijJedjj6wfV1 wIi8+PGNvbCB3 sUM5oG1qNFOcKbM9MBucP 104ZlTgiSQxBtrnf9dyp2 sjeTj6MoCzEZEgmdAmwDt jSQP1c5KkVo17 G22sAQglUPAiKJXdMVMvI GTzeDtdmn0xaW5kEp2+PC 8bz6cfjm11fN86rEZ+PHR fJUU2hHmnVIgo CAJchM3xLVovCnD2IFRvG eSalW42yJStBRzqUz6zqE ivePfpJP8tNYYzcoozj48 0GgVru8acEEGy gFNbMHriRKO3P83zv5A6B ZImTOVxAGJ3yLA0tG4jcM lnbjogbGVmdDsgdmVydGl tYTvnNRgbN709 IHRvcDsnPlBhdGllbnQgT wGjILs4B8OmEwv7ZSIfyE iaTD5hfGIvHAasOp0uwSa liBwkUK9cXDSf pwhke229YnCwz6utXDHou UFkANkbVCT4A91fx2O9OH SeUZPqFJP8pEO2mF0qoTq nbjogbGVmdDsg lsXolEuaDOxdFDewY499Y HRvcDsnPkJpcnRoIERhdG N1MB81RF94iXOri1T1bJF 6Q1EbJSIurqap izjxsGX0ZUHnWQPtxQ86F n2jfQgrYo7zKTMhFKO9EM TtzLDdW6XkaD6iNxSuVNO kPHRpE9CsnJPe WDniT311RDhdSdZ9PNBnl dMzV1UrPQOeiDgoPiZ5b7 Z7Hq0JE2J3OI50JO60jZS cq7F5jKU5K3Tr OFNtzyjkfdtjtBA3NLTdX RXxtD39Lm9iwOowSh3qGV NmVFF4IAKcjNStZ1QieQ6 yOiAjMDAwMDAw X3MauMNsGIusP266IVudF gU6TIQxhyVuI6MpMJBevP osBtC1v7G6Hs1ABUv0BD2 5XI01yBMbg7C5 xZR1J4FtSDQtmsokjkdyz JQ1ROKbSZNdgG68Pw9syQ guKx6iQMJhKQZ5OJUckAB vN4OlfQ1oJvOj VJAdKHLdU5VvnHYyHNseQ 631EUbtKzK9THCihkInD5 RdJLPbtUtxWgA5x6U9Jf6 VFUWcJB42FLN2 pJR7NP22TQ06D0DaQpnio GFibGU+PHRhYmxlIHdpZH RoPScxMDAlJyBzdHlsZT0 dJc8rXPKoOCMh jRikkQGtBhCjp8qdNERyG PbnML4znXqvZ9CsbGI9EM Xaq2y9Xj65H16kP1GfdUF +OQYskAX5mLF2 kZ5bGoTmZgS9RGxlQ207S hMigFSrMjxlh5yum9daqN j6VjS9UKDyaiUuiAenJRC 4o3XhXi28S50t IHdpZHRoPSIxNSUiIHZhb Imnvd3ioR8bXy2+PGNvbC K6pPJ2eS4vRsQkCwB9WHe oR273IkSytDTp Megan9cuv3bylFc0VcFxV FKwxzZpbGjrHDA2x9JpUd 01L4SijEscg9GfDqb9bg9 1jMHlg2H3jGH7 W1LxSFIojadwkOVthTnsB A3pZJEmapflTUQulF0dYB NoU3x1SkDrFaM0GNzmL0R jnzW2RDJamGUx MIinQVI4U95kr5A4ULBfH YWuZYZ5zCX8jA9zlTzeem ogbGVmdDsgdmVydGljYWw dWSoxT211QSCy aZikKMRxyV4zJNMxeYMqp HrmYM6gXYMscciqKjCNCH QKAR6uBTsHXHlFQWm4B5X nDhw4ZITkyCxc HG0moUMeEMtmCo3vyOfsw DgiQZ7hCLJsfpncKJPefF 3hDBStbAIqlIgkTD2aRGC nlbpdk894LmXc KPF2FEXzlBRiC2NtvK2rI gUlULUsGJThY5BpiZOtYX hhH545CSqvBmL9UUErfvJ tK9CrAZDhoEmb UyQ2f8L3Gd4eOa3iOV3zM NF1TD93FJ90eWJge0E3rG E0K4UhPARqwxicmiwanNB 1BASnQELtzO99 fNLiWYrlSo9ar3E9d010L PKnNUAitU44Yt1wqMvzLZ MkiCUImK7qwtyfp7pmojz gIzAwMDAwMDt0 TXs7RUZzaOpmWcByLXB5X yH7AFV7zJJlpU0geWmskv jozL9cUpt+NTcgWWVhcnM 5O3EaStb6YMSu tVecNW1cwGOpEDjhHh0ze AcofZrqQY3jYQDdcqvwAT BhfV9zVNKbpZTqbHwyBM9 xSHQljesmf192 OkGiVBC9MYXutFOqE8Gkd B6kMpDuGWThYELrV9AijE PbQLvfP269SYuyAqS2EVG akbHrF6WbDKXr hSkiDaN3k3Q3Pj3WII6fm ZI7L9HmNsk8YWNvbPagYC 6zsNAaFNwnDl0tfRwmxHy pIN5bFJPgffvr ESMncC9sCHWnpTAszFafV H1dLHTbrwvxk856AtQsPW Y9HKGruQTzK3QbzO3rBbY oRKBmEQHwW9Bk mNHhVXmpI343IAneAzX5Z IWinnVbT4KfPRSbuRpfPu A2m4E8Yb0KxLC2aPE2z9V 0Y2IviVFiUPR8 IMZ1ubyoqzu6T1OuBzjma HI+HS47GTAsML93dZVwiD Ktf2hstJb0DmKsPKYfCZK 3kUiuLGzat2Zj VKTwA04zuXQeg5J0VBTaf LtcePDuWrLlnSC7dY4kBQ tsrrcit2siixcfPxgfm8z jpt37bN19O88v IHdpZHRoPSIzMCUiIHZhb Xnrci7wzA0fJe9+PGNvbC S3iOS3wM7fKhWhMuO1ZJi yC275TjOfaJPd Emcuu6nir0mpbNg2ZyAlK NSvyqCxwJfiUEB0d6OdYm 39E20nQYlwWYXxFXZwOUU pAUSvpBdeop9o jT1dPd6+PG4uv7ocaj11c D48dHI+JMKmJXP9mSiiDS bwDQOelR2qMTdmIqP2TAE pOtNzgE08zUOn CFtpPp7aqQetrCjkVX0qQ IWynjvze279FnRqa4tzQE WhuJSmJXevYEE0X11kr7N 5EXRjEQJqSNB5 jLU3mB2slWefvcsrhAVip DsgdmVydGljYWwtYWxpZ2 87KCMjeDqcNsKjhSWqT9j oauMPJO6wVsiq dGQ+TQRtGFV8jBilNPcsN CGipQ2fTSKlN3n3OyEpFd J4DKgmJ9MtnxK2XQFvpRD wZHVfxAYKvL8i dgcyn5bvtjyrUsKwNKWjO Uu5IJv8IBWwmRetNuAxXE D5TbO8SXX6cJMimP4ukJv bzgggjV6cDyf+ RklOOjwvdGQ+PZMlZWD5p MtnIJkhQLLysY0eDSLxF3 a4ZsLmLrQ3YCvgB4HfuqM 6IGJvbGQgMTBw tKMXdK5nsinpz4qvgqmhR aZyTEVnZWw1TIl9EUByoO bnQrEgKCB2KqI5FMT8pCN vcQ4iyIaxcinw cZ1oCjs+TVJOOjwvdGQ+P WUyTNU1tZdtHVvcCNYxqF 4kVZVsY2o7GrMmGyW0JHe sG2OkdgH7QYSc sJVnSHPhqIVDlG9ycxesz 0wuwegkToVeTLOeNCl2JG w8KVQltPdgIgOmNEH6VsD 6XRQ7nVWzxE2z aGaheivzoB2kHgi+UGF5Z QS1QZ41WI37C4UqUaaqrY FibGU+PHRhYmxlIHdpZHR oPScxMDAlJyBz dHls (more content not included)... Normal [facility] Consent for Anesthesiaon Consent for Anesthesia [id number] 0105 [id number]#1 .00CD:127 [facility] Discharge Instructionson Discharge Instructions [id number] 0105 [id number]#1 .00CD:127 [facility] IntraOperative Documentson 0 06-19-2022 IntraOperative Documents [id number]#1 .00CD:127 [facility] IntraOperative Documents [id number]#1 .00CD:127 [facility] IntraOperative Documents [id number]#1 .00CD:127 [facility] IntraOperative Documents [id number]#1 .00CD:127 [facility] Main OR Intraoperative Recor don 06-19-2022 Main OR Intraoperative Record IntraOp Document Type FT Summary Primary Physician: Chalo BLUM MD Finalized Date/Time: 06/19/22 09:19:54 Pt. Name: ELIZABETH IRVIN/Sex: 1965 Female Med Rec #: [id number] Physician: Chalo BLUM MD Financial #: [id number] Pt. Type: A Room/Bed: Admit/Disch: 06/18/22 09:05:47 - 06/18/22 13:30:00 Institution: Case Times FT Entry 1 Patient Times In Room 06/18/22 11:12:00 Out Room 06/18/22 11:53:00 Procedure Times Start 06/18/22 11:23:00 Stop 06/18/22 11:47:00 Anesthesia Times Start 06/18/22 11:12:00 Stop 06/18/22 11:53:00 Last Modified By: Cheyenne Figueredo RN 06/18/22 11:53:09 General Comments: 06/19/22 Chart opened to review and send charges [facility]FA Case Attendance FT Entry 1 Entry 2 Entry 3 Case Attendee Varinder MCNALLY, Noah BLUM MD, Sultana Caban Role Performed Anesthesiologist Surgeon - Primary Scrub - Primary Tar Kettle Runner Time In 06/18/22 11:12:00 06/18/22 11:12:00 06/18/22 11:12:00 Time Out 06/18/22 11:53:00 06/18/22 11:53:00 06/18/22 11:53:00 Procedure EXTRACORPOREAL SHOCK EXTRACORPOREAL SHOCK EXTRACORPOREAL SHOCK WAVE LITHOTRIPSY(Left) WAVE LITHOTRIPSY(Left) WAVE LITHOTRIPSY(Left) Comments DR BEAUCHAMP SUPERVISING Last Modified By: Mayi LYNN, Rosa Figueredo RN, Cheyenne Stuart RN 06/19/22 09:18:59 06/18/22 11:53:11 06/18/22 11:53:11 Entry 4 Case Attendee Cheyenne Figueredo RN Role Performed Paper Finisher - Primary Time In 06/18/22 11:12:00 Time Out 06/18/22 11:53:00 Procedure EXTRACORPOREAL SHOCK WAVE LITHOTRIPSY(Left) Comments Last Modified By: Cheyenne Figueredo RN 06/18/22 11:53:11 General Comments: CARA TAY AND SHAE WILLETTS. GEOVANNI GEEsupervisor gelatin plant Protocols FT Pre-Care Text: Implements protective measures prior to operative or invasive procedure, confirms identity before the operative or invasive procedure, verifies operative procedure, surgical site, and laterality Entry 1 Procedure(s) EXTRACORPOREAL SHOCK Patient Identity Birthday, ID Band WAVE LITHOTRIPSY(Left) Verified (select at Check, Patient least 2): Participation Consents / H and P Anesthesia Consent, Operative Site Present Verified HandP, Surgery/Procedure Marking Verified Consent Surgical Site Yes Laterality Verified Yes Verified Procedure Verified Yes Correct Patient Yes Position Verified Availability Equipment, Medication, Prep Dry n/a Verified (If X-ray Applicable) PreOp Antibiotic Yes Time Out Noah Maria, Given Participants Chalo BLUM MD, Francis, Jennifer E, Cheyenne Figueredo RN Time Out Complete 06/18/22 11:21:00 Outcomes Met? Yes Last Modified By: Cheyenne Figueredo RN 06/18/22 11:26:34 Post-Care Text: The patient is free from signs and symptoms of injury caused by extraneous objects Allergy Information FT Pre-Care Text: Verifies allergies Entry 1 Allergies Reviewed? Yes Allergies Reviewed Self/Patient With Outcomes Met? Yes Last Modified By: Cheyenne Figueredo RN 06/18/22 11:26:47 Post-Care Text: The patient received appropriate medication(s) safely administered during the perioperative period Surgical Procedures FT Entry 1 Procedure Description Procedure EXTRACORPOREAL SHOCK Modifiers Left WAVE LITHOTRIPSY Surgeon Description LEFT EXTRACORPOREAL SHOCK WAVE LITHOTRIPSY Primary Procedure Yes Primary Surgeon Chalo BLUM MD Start 06/18/22 11:23:00 Stop 06/18/22 11:47:00 Anesthesia Type General Surgical Service Urology Wound Class 1 - Clean Last Modified By: Cheyenne Figueredo RN 06/18/22 11:47:48 General Case Data FT Pre-Care Text: Classifies surgical wound, implements aseptic technique, initiates traffic control Entry 1 Case Information OR OR 5 FT Case Level Level 2 Wound Class 1 - Clean Specialty Urology ASA Class 3 Preop Diagnosis KIDNEY STONE Postop Same As Preop Yes Postop Diagnosis KIDNEY STONE Outcomes Met? Yes Last Modified By: Cheyenne Figueredo RN 06/18/22 11:27:14 Post-Care Text: The patient is free from signs and symptoms of infection Skin Assessment (Pre Procedure) FT Pre-Care Text: Implements protective measures to prevent skin/ tissue injury due to thermal or mechanical sources Evaluates for signs and symptoms of physical injury to skin and tissue Entry 1 Skin Integrity Intact, Mcnary, Warm, and Skin Abnormality No Dry Outcomes Met? Yes Last Modified By: Cheyenne Figueredo RN 06/18/22 11:27:24 Post-Care Text: The patient is free from signs and symptoms of injury caused by extraneous objects Patient Positioning FT Pre-Care Text: Identifies physical alterations that require additional precautions for procedure-specific positioning, verifies presence of prosthetics or corrective devices, positions the patient, evaluates the patient for signs and symptoms of injury as a result of positioning Entry 1 Procedure EXTRACORPOREAL SHOCK Body Position Supine (more content not included)... Normal [facility] Preoperative Documentson Preoperative Documents [id number] .00CD:127 Normal [facility] Preoperative Documents [id number] .00CD:127 [facility] CHEMISTRYOrdered By: Lab ROP User on 06-18-2022 Glucose [Mass/Vol] 72 mg/dL Normal 55 - 99 mg/dL [facility] POC Subsection Comment on above: Result Comment: Jean LAY POC Device SN [id number] Invalid Interpretation Code [facility] POC Subsection POC User ID [id number] Invalid Interpretation Code [facility] POC Subsection POC Username CLAY LARIOS Invalid Interpretation Code [facility] POC Subsection Capillary Glucose POCon 05-25 Glucose [Mass/Vol] 72 mg/dL Normal 55-99 [facility] Comment on above: Result Comment: Jaen LAY Performed By: #### 2 [id number] ####[facility] [address] [place] [address] Consent for Procedure/Surger yon 06-18-2022 Consent for Procedure/Surgery [id number] .00CD:127 [facility] Consent for Treatmenton 05-25 Consent for Treatment [id number] .00CD:127 [facility] H&P Updateon 06-18-2022 H&P Update [id number] .00CD:127 [facility] Inpatient Patient Summaryon 06-18-2022 Inpatient Patient Summary [address] [address] [facility] Clinical Discharge Instructions PERSON INFORMATION Name: ELIZABETH IVRIN PHYSICIANS Admitting Physician: Chalo BLUM MD Attending Physician: Chalo BLUM MD PCP: BALBINA NAPOLES CNP Discharge Diagnosis: Comment: PATIENT EDUCATION INFORMATION Instructions: Post Op Patient Instructions - FT (Custom) (CUSTOM); Lithotripsy, Care After Medication Leaflets: Follow up: With: Address: When: Chalo TRI [address] [place] [address], [address], [address] [address] Business (1) Within 1 to 2 weeks Comments: Call for followup appointment with an abdominal X-ray prior to your visit (my office will need to send an order for the X-ray) MEDICATION LIST New Medications [id number] [address] [place], [place] [id number], [phone] acetaminophen-hydroco done (acetaminophen-hydroc odone 325 mg-5 mg oral tablet) 1 Tablets By Mouth every 4 hours as needed Pain. Refills: 0. Medications to Continue with No Changes Other Medications duloxetine (duloxetine 60 mg Cap-DR) 60 Milligram By Mouth every day. lisinopril (lisinopril 20 mg Tab) 1 Tablets By Mouth every day. ropinirole (ropinirole 0.5 mg Tab) 2 Tablets By Mouth 3 times a day. for restless leg syndrome. semaglutide (Ozempic) 0.5 Milligram Subcutaneous every week. Wednesday. sulfamethoxazole-trim ethoprim (Bactrim D.S. 800 mg-160 mg Tab) 1 Tablets By Mouth 2 times a day for 7 Days. Refills: 0. Comment: Normal [facility] Main OR PACU I Recordon 05-25 Main OR PACU I Record PACU Phase I Docum ent Type FT Summary Primary Physician: Chalo BLUM MD Finalized Date/Time: 06/18/22 13:01:07 Pt. Name: ELIZABETH IRVINO.B./Sex: 1965 Female Med Rec #: [id number] Physician: Chalo BLUM MD Financial #: [id number] Pt. Type: A Room/Bed: Admit/Disch: 06/18/22 09:05:47 - Institution: Case Times PACU I FT Pre-Care Text: Identifies barriers to communication and implements measures to provide psychological support Develops individualized plan of care, and ensures continuity of care Maintains patient's dignity and privacy, and maintains patient confidentiality Identifies and reports philosophical, cultural, and spiritual beliefs and values Identifies individual values and wishes concerning care Implements aseptic technique, and administers prescribed antibiotic therapy and immunizing agents as ordered Evaluates postoperative tissue perfusion Implements thermoregulation measures, and monitors body temperature Evaluates postoperative respiratory status Evaluates postoperative cardiac status Evaluates postoperative neurological status Assesses pain control, collaborated in initiating patient-controlled analgesia and implements alternative methods of pain control Verifies allergies, administers prescribed medications and solutions, evaluates response to medications Entry 1 In PACU I 06/18/22 11:55:00 Discharge from PACU 06/18/22 12:25:00 I Outcomes Met? Yes Last Modified By: TAYLOR GALARZA, JENNIFER Frazier 06/18/22 13:00:53 Post-Care Text: The patient demonstrates knowledge of the expected response to the operative or invasive procedure The patient's care is consistent with the individualized perioperative plan of care The patient's right to privacy is maintained The patient's value system, lifestyle, ethnicity, and culture are considered, respected, and incorporated into the perioperative plan of care The patient participates in decisions affecting his or her perioperative plan of care The patient is free from signs and symptoms of infection The patient has wound/tissue perfusion consistent with or improved from baseline levels established preoperatively The patient is at or returning to normothermia at the conclusion of the immediate postoperative period The patient's respiratory function is consistent with or improved from baseline levels established preoperatively The patient's cardiovascular status is consistent with or improved from baseline levels established preoperatively The patient's cardiovascular status is consistent with or improved from baseline levels established preoperatively The patient demonstrates and/or reports adequate pain control throughout the perioperative period The patient received appropriate medication(s), safely administered during the perioperative period Acuity Level PACU I FT Entry 1 Start Time 06/18/22 11:55:00 Stop Time 06/18/22 12:25:00 Acuity Level Acuity Level I Last Modified By: JENNIFER VAZQUEZ RN 06/18/22 13:01:03 Finalized By: JENNIFER VAZQUEZ RN Document Signatures Signed By: JENNIFER VAZQUEZ RN 06/18/22 13:01 Normal [facility] Main OR PACU II Recordon Main OR PACU II Record PACU Phase II Document Type FT Summary Primary Physician: Chalo BLUM MD Finalized Date/Time: 06/18/22 13:26:59 Pt. Name: ELIZABETH IRVIN Bart Le./Sex: 1965 Female Med Rec #: [id number] Physician: Chalo BLUM MD Financial #: [id number] Pt. Type: A Room/Bed: [facility] Admit/Disch: 06/18/22 09:05:47 - Institution: Case Times PACU II FT Pre-Care Text: Identifies barriers to communication and implements measures to provide psychological support and determines knowledge level Develops individualized plan of care, and ensures continuity of care Maintains patient's dignity and privacy, and maintains patient confidentiality Identifies and reports philosophical, cultural, and spiritual beliefs and values Identifies individual values and wishes concerning care administers prescribed antibiotic therapy and immunizing agents as ordered, Evaluates postoperative tissue perfusion Implements thermoregulation measures, and monitors body temperature Evaluates postoperative respiratory status Evaluates postoperative cardiac status Evaluates postoperative neurological status Assesses pain control, collaborated in initiating patient-controlled analgesia and implements alternative methods of pain control Verifies allergies, administers prescribed medications and solutions, evaluates response to medications Entry 1 In PACU II 06/18/22 12:25:00 Discharge from PACU 06/18/22 13:30:00 II Outcomes Met? Yes Last Modified By: Clay Dobbs RN 06/18/22 13:26:58 Post-Care Text: The patient demonstrates knowledge of the expected response to the operative or invasive procedure The patient's care is consistent with the individualized perioperative plan of care The patient's right to privacy is maintained The patient's value system, lifestyle, ethnicity, and culture are considered, respected, and incorporated into the perioperative plan of care The patient participates in decisions affecting his or her perioperative plan of care. The patient is free from signs and symptoms of infection The patient has wound/tissue perfusion consistent with or improved from baseline levels established preoperatively The patient is at or returning to normothermia at the conclusion of the immediate postoperative period The patient's respiratory function is consistent with or improved from baseline levels established preoperatively The patient's cardiovascular status is consistent with or improved from baseline levels established preoperatively The patient's neurological status is consistent with or improved from baseline levels established preoperatively The patient demonstrates and/or reports adequate pain control throughout the perioperative period The patient received appropriate medication(s), safely administered during the perioperative period Finalized By: Clay Dobbs RN Document Signatures Signed By: Clay Dobbs RN 06/18/22 13:26 Normal [facility] Main OR Preoperative Recordo n 06-18-2022 Main OR Preoperative Record PreOp Document Type FT Summary Primary Physician: Chalo BLUM MD Finalized Date/Time: 06/18/22 11:23:43 Pt. Name: ELIZABETH IRVIN/Sex: 1965 Female Med Rec #: [id number] Physician: Chalo BLUM MD Financial #: [id number] Pt. Type: A Room/Bed: [place] [address] Admit/Disch: 06/18/22 09:05:47 - Institution: Case Times PreOp FT Pre-Care Text: Verifies consent for planned procedure, identifies individual values and wishes concerning care, includes family members in perioperative teaching Entry 1 Patient Times. In Pre Surgery 06/18/22 09:25:00 Out Pre Surgery 06/18/22 11:10:00 Outcomes Met? Yes Last Modified By: Cheyenne Figueredo RN 06/18/22 11:23:38 Post-Care Text: The patient participates in decisions affecting his or her perioperative plan of care Finalized By: Cheyenne Figueredo RN Document Signatures Signed By: Cheyenne Figueredo RN 06/18/22 11:23 Normal [facility] Monitor Recordon 06-18-2022 Monitor Record [id number]# 1.00CD:127 Normal [facility] Monitor Record [id number]# 1.00CD:127 [facility] Operative Reporton Operative Report Patient: ELIZABETH IRVIN Age: 56 years Sex: Female : 1965 Associated Diagnoses: None Author: Chalo BLUM MD Postoperative Information Date/ Time: 06/18/2022 11:54:00 Postoperative Diagnosis: Bilateral kidney stones (NUR82-RB N20.0, Working, Medical), Status post left JJ stent. Performed by: Chalo Blum MD. Findings: Procedure: ESWL left ureteral calculus Anesthesia: General, LMA, Dr. Beauchamp Indications: This is a 56-year-old female with a bilateral renal calculi. She is status post left double-J stent placement under fluoroscopic guidance which was quite difficult secondary to significant left ureteral tortuosity. This is a 1.2 cm stone at the left UPJ. She presents today for lithotripsy with the inherent risk of bleeding, infection, need for additional procedures, bleeding around the kidney, among others. She wants to proceed. She did receive preoperative antibiotics and she does have sequential compression devices in place and functional bilateral lower extremities throughout the case. Procedure: Patient was brought back to the operating room and a timeout was performed. All were in agreement with the operative plan. The patient was identified appropriately. After the successful induction of general anesthesia she is placed in the supine position on the Dornier delta 3 lithotripsy table. Under C arm fluoroscopic imaging the stone is easily visualized at the left ureteropelvic junction. This is a fairly dense stone. A total of 2500 shocks are given per protocol with a pause at about 500 shocks. We then increased the shock rate up to the 2500 total number. There appears to be at least partial fragmentation both superiorly and inferiorly with fragments generated. We did go up to a level of 8 at the highest level. She tolerates it well. She is transferred [facility] and then back to PACU in satisfactory condition, stable vital signs. Plan will be for discharge home with plans to follow-up in the office within a week or so with a KUB. Discussed all this with her postoperatively and he is in agreement with the plan. Prescription sent to the pharmacy for [place], #7 1 p.o. every 4 hours as needed pain. Instruction sheet given . Estimated Blood Loss: 0 ml. Complications: None. Anesthesia type: General. Normal [facility] Comment on above: Result Comment: Elec tronically Signed By: Chalo BLUM MD\.br\Date and Time Signed: 06/18/22 11:58 EST Outpatient Surgery Discharge Instructionon 06-18-2022 Outpatient Surgery Discharge Instruction [place] [id number] Patient Discharge Instructions PERSON INFORMATION Name: ALBARO ELIZABETH Arriaga Date of : 1965 Current Date: 06/18/2022 11:56:12 PHYSICIANS Admitting Physician: Chalo BLUM MD Discharge Diagnosis: ELIZABETH IRVIN has been given the following list of follow-up instructions, prescriptions, and patient education materials: PATIENT FOLLOW-UP INFORMATION Diet: Regular Discharge Activity: Arrange for a responsible adult supervision for 24 hours, Expect mild pain, Expect minimal amount of drainage and/or bleeding Discharge Restrictions: No driving, Do not operate machinery or tools, Do not make important decisions for 24 hours, Do not drink alcoholic beverages for 24 hours Call Your Doctor For: Persistent or heavy bleeding, Temperature above 101.5 degrees IF UNABLE TO CONTACT YOUR PHYSICIAN AND YOU FEEL IT IS AN EMERGENCY, GO TO THE NEAREST EMERGENCY ROOM OR CALL 911 IALBARO KELLY J, have received the attached patient education materials/instruction s and have verbalized understanding: May we do a follow up call? Yes No I was present when discharge instructions were given Patient Signature Date Clinican/Nurse Signature Date Follow up: With: Address: When: Chalo BLUM [address], [address], [facility] [address] [place] [address] Business (1) Within 1 to 2 weeks Comments: Call for followup appointment with an abdominal X-ray prior to your visit (my office will need to send an order for the X-ray) Pharmacy Information: You may receive a survey from [facility] asking you to rate your care experience. Your feedback is important and will help us understand what we do well and how we can improve the quality of care we provide to you, your loved ones and our community. It?s an honor to serve you. Thank you for choosing [facility] HERE ARE THE MEDICATION CHANGES THAT OCCURRED DURING YOUR HOSPITAL STAY New Medications [facility] #[id number], [address] [place], [place] [id number], [phone] acetaminophen-hydroco done (acetaminophen-hydroc odone 325 mg-5 mg oral tablet) 1 Tablets By Mouth every 4 hours as needed Pain. Refills: 0. Medications to Continue with No Changes Other Medications duloxetine (duloxetine 60 mg Cap-DR) 60 Milligram By Mouth every day. lisinopril (lisinopril 20 mg Tab) 1 Tablets By Mouth every day. ropinirole (ropinirole 0.5 mg Tab) 2 Tablets By Mouth 3 times a day. for restless leg syndrome. semaglutide (Ozempic) 0.5 Milligram Subcutaneous every week. Wednesday. sulfamethoxazole-trim ethoprim (Bactrim D.S. 800 mg-160 mg Tab) 1 Tablets By Mouth 2 times a day for 7 Days. Refills: 0. PATIENT EDUCATION INFORMATION Instructions: Lithotripsy, Care After This sheet gives you information about how to care for yourself after your procedure. Your health care provider may also give you more specific instructions. If you have problems or questions, contact your health care provider. What can I expect after the procedure? After the procedure, it is common to have: ? Some blood in your urine. This should only last for a few days. ? Soreness in your back, sides, or upper abdomen for a few days. ? Blotches or bruises on your back where the pressure wave entered the skin. ? Pain, discomfort, or nausea when pieces (fragments) of the kidney stone move through the tube that carries urine from the kidney to the bladder (ureter). Stone fragments may pass soon after the procedure, but they may continue to pass for up to 4?8 weeks. ? If you have severe pain or nausea, contact your health care provider. This may be caused by a large stone that was not broken up, and this may mean that you need more treatment. ? Some pain or discomfort during urination. ? Some pain or discomfort in the lower abdomen or (in men) at the base of the penis. Follow these instructions at home: Medicines ? Take wckf-avq-urwexyh and prescription medicines only as told by your health care provider. ? If you were prescribed an antibiotic medicine, take it as told by your health care provider. Do not stop taking the antibiotic even if you start to feel better. ? Do not drive for 24 hours if you were given a medicine to help you relax (sedative). ? Do not drive or use heavy machinery while taking prescription pain medicine. Eating and drinking ? Drink enough water and fluids to keep your urine clear or pale yellow. (more content not included)... Normal [facility] Patient Education - Texton 0 06-18-2022 Patient Education - Text Nephrology Lithotripsy, Care After This sheet gives you information about how to care for yourself after your procedure. Your health care provider may also give you more specific instructions. If you have problems or questions, contact your health care provider. What can I expect after the procedure? After the procedure, it is common to have: ? Some blood in your urine. This should only last for a few days. ? Soreness in your back, sides, or upper abdomen for a few days. ? Blotches or bruises on your back where the pressure wave entered the skin. ? Pain, discomfort, or nausea when pieces (fragments) of the kidney stone move through the tube that carries urine from the kidney to the bladder (ureter). Stone fragments may pass soon after the procedure, but they may continue to pass for up to 4?8 weeks. ? If you have severe pain or nausea, contact your health care provider. This may be caused by a large stone that was not broken up, and this may mean that you need more treatment. ? Some pain or discomfort during urination. ? Some pain or discomfort in the lower abdomen or (in men) at the base of the penis. Follow these instructions at home: Medicines ? Take kmoj-yzh-syamnko and prescription medicines only as told by your health care provider. ? If you were prescribed an antibiotic medicine, take it as told by your health care provider. Do not stop taking the antibiotic even if you start to feel better. ? Do not drive for 24 hours if you were given a medicine to help you relax (sedative). ? Do not drive or use heavy machinery while taking prescription pain medicine. Eating and drinking ? Drink enough water and fluids to keep your urine clear or pale yellow. This helps any remaining pieces of the stone to pass. It can also help prevent new stones from forming. ? Eat plenty of fresh fruits and vegetables. ? Follow instructions from your health care provider about eating and drinking restrictions. You may be instructed: ? To reduce how much salt (sodium) you eat or drink. Check ingredients and nutrition facts on packaged foods and beverages. ? To reduce how much meat you eat. ? Eat the recommended amount of calcium for your age and gender. Ask your health care provider how much calcium you should have. General instructions ? Get plenty of rest. ? Most people can resume normal activities 1?2 days after the procedure. Ask your health care provider what activities are safe for you. ? Your health care provider may direct you to lie in a certain position (postural drainage) and tap firmly (percuss) over your kidney area to help stone fragments pass. Follow instructions as told by your health care provider. ? If directed, strain all urine through the strainer that was provided by your health care provider. ? Keep all fragments for your health care provider to see. Any stones that are found may be sent to a medical lab for examination. The stone may be as small as a grain of salt. ? Keep all follow-up visits as told by your health care provider. This is important. Contact a health care provider if: ? You have pain that is severe or does not get better with medicine. ? You have nausea that is severe or does not go away. ? You have blood in your urine longer than your health care provider told you to expect. ? You have more blood in your urine. ? You have pain during urination that does not go away. ? You urinate more frequently than usual and this does not go away. ? You develop a rash or any other possible signs of an allergic reaction. Get help right away if: ? You have severe pain in your back, sides, or upper abdomen. ? You have severe pain while urinating. ? Your urine is very dark red. ? You have blood in your stool (feces). ? You cannot pass any urine at all. ? You feel a strong urge to urinate after emptying your bladder. ? You have a fever or chills. ? You develop shortness of breath, difficulty breathing, or chest pain. ? You have severe nausea that leads to persistent vomiting. ? You faint. Summary ? After this procedure, it is common to have some pain, discomfort, or nausea when pieces (fragments) of the kidney stone move through the tube that carries urine from the kidney to the bladder (ureter). If this pain or nausea is severe, however, you should contact your health care provider. ? Most people can resume normal activities 1?2 days after the procedure. Ask your health care provider what activities are safe for you. ? Drink enough water and fluids to keep your urine clear or pale yellow. This helps any remaining pieces of the stone to pass, and it can help prevent new stones from forming. ? If directed, strain your urine and keep all fragments for your health care provider to see. Fragments or stones may be as small as a grain of salt. ? Get help ri (more content not included)... Normal [facility] Progress Note-Physicianon Progress Note-Physician Patient: ELIZABETH IRVIN Age: 56 years Sex: Female : 1965 Associated Diagnoses: None Author: Garfield Beauchamp Jr., DO Postoperative Information Post Operative Note: Post Anesthesia Care Unit. Anesthetic utilized: General. Health Status Allergies: Allergic Reactions (Selected) Severity Not Documented PredniSONE- Hives. Valtrex- Hives. Problem list: All Problems Anemia / SNOMED CT 345019452 / Confirmed Arthritis / SNOMED CT 0850352 / Confirmed Depression / SNOMED CT 17489438 / Confirmed Hypertension / SNOMED CT 7695333821 / Confirmed Kidney stones / SNOMED CT 585734452 / Confirmed Restless legs syndrome / SNOMED CT 64453293 / Confirmed Type 2 diabetes mellitus / SNOMED CT 931285761 / Confirmed Ureteral stone / SNOMED CT 30593617 / Confirmed Physical Examination Vital Signs 06/18/2022 13:16 EST Heart Rate Monitored 82 bpm SpO2 99 % 06/18/2022 13:16 EST Respiratory Rate 16 br/min 06/18/2022 13:15 EST Temperature Axillary 36.3 DegC 06/18/2022 13:15 EST Systolic Blood Pressure 133 mmHg Diastolic Blood Pressure 84 mmHg Mean Arterial Pressure, Monitered 101 mmHg 06/18/2022 12:25 EST Heart Rate Monitored 75 bpm Respiratory Rate 16 br/min Systolic Blood Pressure 137 mmHg Diastolic Blood Pressure 87 mmHg Blood Pressure Location Right arm Mean Arterial Pressure, Cuff 104 mmHg SpO2 100 % 06/18/2022 12:20 EST Temperature Temporal Artery 36.6 DegC Heart Rate Monitored 73 bpm Respiratory Rate Monitored 19 br/min Systolic Blood Pressure 136 mmHg Diastolic Blood Pressure 77 mmHg Mean Arterial Pressure, Cuff 97 mmHg SpO2 100 % 06/18/2022 12:10 EST Heart Rate Monitored 76 bpm Respiratory Rate Monitored 17 br/min Systolic Blood Pressure 131 mmHg Diastolic Blood Pressure 80 mmHg Mean Arterial Pressure, Cuff 97 mmHg SpO2 100 % 06/18/2022 12:05 EST Heart Rate Monitored 77 bpm Respiratory Rate Monitored 17 br/min Systolic Blood Pressure 127 mmHg Diastolic Blood Pressure 75 mmHg Mean Arterial Pressure, Cuff 92 mmHg SpO2 100 % 06/18/2022 12:00 EST Heart Rate Monitored 75 bpm Respiratory Rate Monitored 14 br/min Systolic Blood Pressure 139 mmHg Diastolic Blood Pressure 70 mmHg Mean Arterial Pressure, Cuff 93 mmHg SpO2 100 % 06/18/2022 11:55 EST Temperature Temporal Artery 36.3 DegC Heart Rate Monitored 82 bpm Respiratory Rate Monitored 20 br/min Systolic Blood Pressure 148 mmHg HI Diastolic Blood Pressure 90 mmHg Mean Arterial Pressure, Cuff 109 mmHg SpO2 100 % Pain assessment: Pain Assessment 06/18/2022 13:16 EST Preliminary Pain Scale 2 06/18/2022 13:16 EST Primary Pain Location Flank Primary Pain Laterality Left Numeric Pain Scale 2 06/18/2022 12:25 EST Pain Symptoms Self Report Yes, able to self report Primary Pain Location Flank Primary Pain Laterality Left Patient Preferred Pain Tool Numeric rating Numeric Pain Scale 3 Numeric Pain Score 3 06/18/2022 12:20 EST Numeric Pain Scale 0 = No pain 06/18/2022 11:55 EST Numeric Pain Scale 0 = No pain . General: Alert and oriented, No acute distress, No nausea. Adequate hydration.. Respiratory: Adequate air exchange.. Cardiovascular: stable. Neurologic: Normal sensory. Review / Management Condition: Stable. Assessment Anesthetic outcome No anesthetic complications noted. Plan Transfer/ Discharge: Condition stable. Normal [facility] Comment on above: Result Comment: Elec tronically Signed By: Garfield Beauchamp Jr., DO\.br\Date and Time Signed: 06/18/22 14:13 EST Progress Note-Physician Patient: ELIZABETH IRVIN Age: 56 years Sex: Female : 1965 Associated Diagnoses: None Author: Garfield Beauchamp Jr., DO Preoperative Information Time patient last ate or drank:=== (NPO since midnight) Anesthesia history: Patient History: No prior problems with anesthesia.. Re-eval prior to induction: Inital eval reviewed: No significant interval change, Surgical H&P documented and on chart. Surgical consent signed and on chart.. Anesthesia results Review of Systems Cardiovascular: Negative except as documented in history of present illness. Respiratory: Negative. Neurologic: Negative. Health Status Allergies: Allergic Reactions (Selected) Severity Not Documented PredniSONE- Hives. Valtrex- Hives., Allergies (2) Active Reaction predniSONE Hives Valtrex Hives Current medications: (Selected) Inpatient Medications Ordered HYDROmorphone 1 mg/mL injectable solution: 0.4 mg = 0.4 mL, Injection, IV Push, q4min PRN Pain for 5 dose(s), Stop date Limited # of times, Routine, Start date 06/18/22 10:35:00 EST, 06/18/22 10:35:00 EST Lactated Ringers IV Tatyana 1000 mL 1,000 mL: 1,000 mL, IV, 100 mL/hr, Routine, Start date 06/18/22 10:35:00 EST, 10 hour(s), Total volume (mL): 1,000, 65.6 kg, 1.71, m2 Lactated Ringers IV Tatyana 1000 mL 1,000 mL: 1,000 mL, IV, 150 mL/hr, Routine, Start date 06/18/22 9:00:00 EST, 6.7 hour(s), Total volume (mL): 1,000, 65.6 kg, 1.71, m2 Phenergan 25 mg/mL Injection: 12.5 mg = 0.5 mL, Injection, IV Push, q2min PRN Other (see comment) for 2 dose(s), Stop date Limited # of times, Routine, Start date 06/18/22 10:35:00 EST, 06/18/22 10:35:00 EST cefazolin additive + Sodium Chloride 0.9% intravenous solution 50 mL: 2 gram = 1 EA, Powder-Inj, IV Piggyback, PREOP, Routine, Start date 06/18/22 9:09:00 EST, 100 mL/hr, Infuse over 30 minute(s) Prescriptions Prescribed Bactrim D.S. 800 mg-160 mg Tab: 1 tab(s), Oral, BID for 7 day(s), 14 tab(s), Refill(s) 0, [id number], 160, cm, 06/11/22 9:42:00 EST, Height/Length Dosing, 65.6, kg, 06/11/22 9:42:00 EST, Weight Dosing Documented Medications Documented Ozempic: 0.5 mg, SubCutaneous, qWeek, Refill(s) 0, Wednesday, Blood glucose duloxetine 60 mg Cap-DR: 60 mg, Oral, Daily, Refills(s) 0, Depression lisinopril 20 mg Tab: 20 mg = 1 tab(s), Oral, Daily, Refills(s) 0, High blood pressure ropinirole 0.5 mg Tab: 1 mg = 2 tab(s), Oral, TID, for restless leg syndrome, Refills(s) 0 Histories Past Medical History: No active or resolved past medical history items have been selected or recorded. Family History: Hypertension Mother Primary malignant neoplasm of female genital organ Mother Arthritis Father Mother Stroke Mother Kidney disease Mother Transient cerebral ischemia Mother Cardiac arrest Father Heart disease Mother Diabetes Mother Procedure history: Cysto/basket extreaction/stent placement ([id number]) on 03/19/2022 at 56 Years. Hysterectomy ([id number]). Gastric bypass ([id number]). Social History Social & Psychosocial Habits Alcohol 04/17/2022 Risk Assessment: Denies Alcohol Use Substance Abuse 04/17/2022 Risk Assessment: Denies Substance Abuse Tobacco 03/31/2022 Tobacco Use: Never (less than 100 in l Smokeless tobacco use: Never 04/17/2022 Risk Assessment: Denies Tobacco Use . Physical Examination Airway: Mallampati classification: II (soft palate, fauces, uvula visible). Respiratory: Lungs are clear to auscultation. Cardiovascular: Regular rhythm. Review / Management Results review: Lab results 06/18/2022 9:40 EST Glucose Cap 72 mg/dL POC Device SN [id number] POC User ID [id number] POC Username CLAY LARIOS 06/11/2022 9:56 EST WBC 4.0 E9/L RBC 4.1 E12/L LOW HGB 10.7 gm/dL LOW Hct 33.2 % LOW MCV 81.1 fL MCH 26.2 pg LOW MCHC 32.3 gm/dL RDW 18.0 % HI Platelet 311.0 E9/L MPV 7.3 fL Neutro Auto 46.1 % Lymph Auto 40.8 % Trinity Auto 7.5 % Eos Auto 4.1 % Basophil Auto 1.5 % Neutro Absolute 1.8 E9/L LOW Lymph Absolute 1.6 E9/L Trinity Absolute 0.3 E9/L Eos Absolute 0.2 E9/L Basophil Absolute 0.1 E9/L PT 10.6 second(s) INR 1.0 NA PTT 33.1 second(s) Glucose Lvl 78 mg/dL BUN 22 mg/dL HI Creatinine 1.8 mg/dL HI eGFR 29 mL/min/1.73 m2 LOW eGFR AA 35 mL/min/1.73 m2 LOW BUN/Creat Ratio 12 Sodium Lvl 139 mmol/L Potassium Lvl 5.3 mmol/L Chloride 110 mmol/L CO2 23 mmol/L AGAP 11 mEq/L Calcium Lvl 9.2 mg/dL UA Spec Desc Clean Catch UA Color Yellow UA Clarity Slightly Cloudy UA Spec Grav 1.025 UA pH 6.0 UA Protein Trace UA Glucose Negative UA Ketones Negative UA Bili Negative UA Blood 2+ UA Nitrite Positive UA Urobilinogen 0.2 EU/dL UA Leuk Est 3+ UA RBC 4-20 /HPF UA Squam Epithelial 3-4 /HPF UA WBC >75 /HPF UA Bacteria 3+ /HPF Urine Culture POS . Chest x-ray results * Final Report * Reason For Exam PRE OP POWERSCRIBE REPORT IMPRESSION: NO (more content not included)... [facility] Comment on above: Result Comment: Elec tronically Signed By: Garfield Beauchamp Jr., DO\.tanmay\Date and Time Signed: 06/18/22 10:46 EST XR Abdomen 1 Viewon 06-18-19 23 XR Abdomen 1 View Exam Date/Time: 06/18/2022 09:25 EST Reason for Exam: Kidney stone Report IMPRESSION: RIGHT RENAL AND LEFT URETERAL CALCULI, UNCHANGED IN SIZE AND NUMBER. MINIMAL/MILD INFERIOR PROGRESSION LEFT URETERAL CALCULUS WITHIN LEFT URETER. LEFT DOUBLE-J URETERAL STENT. OTHER FINDINGS DISCUSSED. CLINICAL HISTORY: Kidney stone COMPARISON: [facility], March 21, 2022. FINDINGS: 1.6 x 1.2 cm calculus again identified projecting over region of mid pole right kidney. Left double-J ureteral stent unchanged in position. 1.2 x 1 cm calculus, proximal to mid right ureter again identified projecting over left ureteral stent, with minimal interval caudal progression through left ureter. Multiple surgical clips again identified projecting left upper quadrant, in region of gastroesophageal junction, with second clustered surgical clips lying medial to region of left ureter. Gas and stool in colon. No diffuse small bowel dilatation or mass effect. Osseous structures intact. FINAL REPORT Dictated: 06/18/2022 9:41 am Landen Durham MD Signed (Electronic Signature): 06/18/2022 9:41 am Signed by: Landen Durham MD Transcribed by: HARDEEP Technologist: WANDA [facility] C Urineon 06-13-2022 Bacteria identified Cx Nom (U) Microbiology PROCEDURE: Urine Culture [R1] SOURCE: U CleanCatch BODY SITE: COLLECTED DATE/TIME: 06/11/2022 09:56 EST RECEIVED DATE/TIME: 06/11/2022 13:11 EST START DATE/TIME: 06/11/2022 13:11 EST FREE TEXT SOURCE: TRI REED, Chalo BLUM MD, Chalo Frazier FINAL REPORTS Final Report [] Verified Date/Time: 06/13/2022 11:01 EST >100,000 cfu/ml Citrobacter freundii 2,000 cfu/ml Mixed skin contaminants SUSCEPTIBILITY RESULTS LEGEND: S=Susceptible, N/R=Not Reported, Blank=Data not available, or drug not advisable or tested, I=Intermediate, ESBL=Extended spectrum beta-lactamase, R=Resistant, TFG=Thymidine-depende nt strain, GLORIA=Beta-lactamase positive, RAVINDER=mcg/m;(mg/L), S*=Predicted susceptible interp, R*=Predicted resistant interp Citfreu Antibiotic RAVINDER Dilutn RAVINDER Interp Amikacin <=16 S Ampicillin 16 R* Ampicillin/ <=8/4 R* Sulbactam Aztreonam <=4 S Cefazolin >16 R Cefepime <=2 S Cefoxitin >16 R Ceftazidime <=1 S Ceftazidime/ <=8 S Avibactam Ceftriaxone <=1 S Ciprofloxacin <=1 S Ertapenem <=0.5 S Gentamicin <=4 S Levofloxacin <=2 S Meropenem <=1 S Nitrofurantoin <=32 S Piperacillin/ <=16 S Tazobactam Tetracycline <=4 S Tigecycline <=2 S Tobramycin <=4 S Trimethoprim/ <=2/38 S Sulfa Performing Locations R1: This test was performed at: [facility], [address] [place] [address], [phone] , , Normal [facility] Comment on above: Performed By: #### 1 [id number], [id number] ####[address] [address] Immunization Recordson 06-12 Immunization Records [id number]# 1.00CD:127 Normal [facility] Auto Diffon 06-11-2022 Basophils/100 WBC (Bld) 1.5 % Normal 0.0-2.0 [facility] Comment on above: Order Comment: Order Added by Discern Expert. Performed By: #### 1 [id number], 1947291, 9128099, 4941375, 34534999 ####[address] [address] Basophils/Leukocytes Auto (Bld) [Pure # fraction] 0.1 E9/L Normal 0.0-0.2 [facility] Comment on above: Order Comment: Order Added by Discern Expert. Performed By: #### 1 6110250, 8313834, 2071720, 9414785, 55911585 ####[address] [address] Eosinophils/100 WBC (Bld) 4.1 % Normal 0.0-8.0 [facility] Comment on above: Order Comment: Order Added by Discern Expert. Performed By: #### 1 6297267, 0636394, 3721612, 3339659, 34194518 ####[address] [address] Eosinophils/Leukocytes Auto (Bld) [Pure # fraction] 0.2 E9/L Normal 0.0-0.5 [facility] Comment on above: Order Comment: Order Added by Barber Expert. Performed By: #### 1 7237329, 1048658, 0691596, 6035083, 83364851 ####[facility] [address] [place] [address] Lymphocytes/100 WBC (Bld) 40.8 % Normal 14.0-50.0 [facility] Comment on above: Order Comment: Order Added by Discern Expert. Performed By: #### 1 6084309, 8358203, 2503106, 7323922, 74012906 ####[address] [place] [address] Lymphocytes/Leukocytes Auto (Bld) [Pure # fraction] 1.6 E9/L Normal 1.0-4.0 [facility] Comment on above: Order Comment: Order Added by Barber Expert. Performed By: #### 1 8568185, 7477528, 4029874, 8817308, 11885035 ####[address] [place] [address] Monocytes/100 WBC (Bld) 7.5 % Normal 4.0-14.0 [facility] Comment on above: Order Comment: Order Added by Barber Expert. Performed By: #### 1 0259207, 7757073, 1387751, 7992610, 29704859 ####[address] [place] [address] Monocytes/Leukocytes Auto (Bld) [Pure # fraction] 0.3 E9/L Normal 0.2-1.0 [facility] Comment on above: Order Comment: Order Added by Barber Expert. Performed By: #### 1 4815830, 6736461, 4514723, 1563219, 66584030 ####[address] [address] Neutrophils/100 WBC (Bld) 46.1 % Normal 36.0-75.0 [facility] Comment on above: Order Comment: Order Added by Barber Expert. Performed By: #### 1 3267869, 3161592, 2462400, 5844185, 66135512 ####[facility] [address] [place] [address] Neutrophils/Leukocytes Auto (Bld) [Pure # fraction] 1.8 E9/L Low 2.0-7.5 [facility] Comment on above: Order Comment: Order Added by Discern Expert. Performed By: #### 1 4849236, 0630006, 9814290, 8986166, 44640229 ####[facility] [address] [place] [address] BMPon 06-11-2022 Anion gap [Moles/Vol] 11 mmol/L Normal 6-16 [facility] Comment on above: Performed By: #### 1 8874622, 1278660, 6267909, 1885062, 63153229 ####[facility] [address] [place] [address] Calcium [Mass/Vol] 9.2 mg/dL Normal 8.9-11.1 [facility] Comment on above: Performed By: #### 1 4913718, 3701403, 4227486, 1905518, 59586799 ####[facility] [address] [place] [address] Chloride [Moles/Vol] 110 mmol/L Normal 101-111 [facility] Comment on above: Performed By: #### 1 2203111, 7766042, 7995556, 4597502, 57412549 ####[facility] [address] [place] [address] CO2 [Moles/Vol] 23 mmol/L Normal 21-31 [facility] Comment on above: Performed By: #### 1 2661070, 9722640, 8789993, 9079642, 33399860 ####[facility] [address] [place] [address] Creatinine [Mass/Vol] 1.8 mg/dL High 0.5-1.3 [facility] Comment on above: Performed By: #### 1 0738403, 1395638, 8107890, 6557025, 20572736 ####[facility] [address] [place] [address] Glucose [Mass/Vol] 78 mg/dL Normal 55-199 [facility] Comment on above: Result Comment: If t his glucose result represents a fasting glucose, interpretation should refer to the following reference range: 55-99 mg/dL Performed By: #### 1 8912416, 8494494, 4793702, 3944682, 58224931 ####[facility] [address] [place] [address] Potassium [Moles/Vol] 5.3 mmol/L Normal 3.5-5.3 [facility] Comment on above: Performed By: #### 1 5160403, 9711716, 3698008, 4453636, 91979640 ####[facility] [address] [place] [address] Sodium [Moles/Vol] 139 mmol/L Normal 135-145 [facility] Comment on above: Performed By: #### 1 6469000, 2677260, 4010156, 0629812, 00251210 ####[facility] [address] [place] [address] Urea nitrogen [Mass/Vol] 22 mg/dL High 5-21 [facility] Comment on above: Performed By: #### 1 3204374, 8812141, 9760446, 9237964, 20803110 ####[facility] [address] [place] [address] Urea nitrogen/Creatinine [Mass ratio] 12 No Units Normal 10-20 [facility] Comment on above: Performed By: #### 1 4862528, 4260377, 0928293, 3628758, 59233828 ####[facility] [address] [place] [address] CBC w/ Auto Diffon 3 Erythrocyte distribution width (RBC) [Ratio] 18.0 % High 10.9-14.2 [facility] Comment on above: Performed By: #### 1 6640255, 3855400, 1527814, 3845659, 51263956 #### [facility] [address] [place] [address] Hematocrit (Bld) [Volume fraction] 33.2 % Low 34.0-46.0 [facility] Comment on above: Performed By: #### 1 5766746, 7234325, 5017174, 1819706, 04771906 #### [facility] [address] [place] [address] Hemoglobin (Bld) [Mass/Vol] 10.7 g/dL Low 12.0-16.0 [facility] Comment on above: Performed By: #### 1 5059576, 5038081, 6872983, 3579696, 00705418 #### [facility] [address] [place] [address] MCH (RBC) [Entitic mass] 26.2 pg Low 27.0-34.0 [facility] Comment on above: Performed By: #### 1 6114746, 2718799, 3639108, 7620682, 11300290 #### [facility] [address] [place] [address] MCHC (RBC) [Mass/Vol] 32.3 g/dL Normal 31.4-36.0 [facility] Comment on above: Performed By: #### 1 6714017, 7698619, 0056258, 1279762, 13517566 #### [facility] [address] [place] [address] MCV (RBC) [Entitic vol] 81.1 fL Normal 80.0-100.0 [facility] Comment on above: Performed By: #### 1 4298126, 0296478, 4417782, 6287452, 32454617 #### [facility] [address] [place] [address] Platelet mean volume (Bld) [Entitic vol] 7.3 fL Normal 6.4-10.8 [facility] Comment on above: Performed By: #### 1 1164728, 4724662, 4557739, 5192774, 84980418 #### [facility] [address] [place] [address] Platelets (Bld) [#/Vol] 311.0 E9/L Normal 150.0-500.0 [facility] Comment on above: Performed By: #### 1 7471269, 2940188, 8985202, 1193774, 28338584 #### [facility] [address] [place] [address] RBC (Bld) [#/Vol] 4.1 E12/L Low 4.3-5.9 [facility] Comment on above: Performed By: #### 1 8291268, 9457226, 1042329, 9918810, 39273319 #### [facility] [address] [place] [address] WBC corrected for nucl RBC Auto (Bld) [#/Vol] 4.0 E9/L Normal 4.0-11.0 [facility] Comment on above: Performed By: #### 1 0277494, 0016453, 2352120, 9248560, 09024107 #### [facility] [address] [place] [address] CHEMISTRYOrdered By: SYSTEM SYSTEM on 06-11-2022 Anion gap [Moles/Vol] 11 mmol/L Normal 6 - 16 mEq/L [facility] Calcium [Mass/Vol] 9.2 mg/dL Normal 8.9 - 11. 1 mg/dL [facility] Chloride [Moles/Vol] 110 mmol/L Normal 101 - 1 11 mmol/L [facility] CO2 [Moles/Vol] 23 mmol/L Normal 21 - 31 mmol/L [facility] Creatinine [Mass/Vol] 1.8 mg/dL High 0.5 - 1.3 mg/dL [facility] GFR/1.73 sq M.predicted among blacks MDRD (S/P/Bld) [Vol rate/Area] 35 mL/min/1.73 m2 Low >=59mL/min/1 .73 m2 FT Chem S GFR/1.73 sq M.predicted among non-blacks MDRD (S/P/Bld) [Vol rate/Area] 29 mL/min/1.73 m2 Low >=59mL/min/1 .73 m2 [facility] Chem S Glucose [Mass/Vol] 78 mg/dL Normal 55 - 199 mg/dL [facility] Potassium [Moles/Vol] 5.3 mmol/L Normal 3.5 - 5.3 mmol/L [facility] Sodium [Moles/Vol] 139 mmol/L Normal 135 - 145 mmol/L [facility] Urea nitrogen [Mass/Vol] 22 mg/dL High 5 - 21 mg/dL [facility] Urea nitrogen/Creatinine [Mass ratio] 12 mg/mg Normal 10 - 20 [facility] Remisol COAGULATIONOrdered By: Pia Muse on 06-11-2022 aPTT Coag (PPP) [Time] 33.1 s Normal 25.1 - 36.5 second(s) [facility] Auto Coag INR Coag (PPP) [Relative time] 1.0 {INR} Invalid Interpretation Code FT Auto Coag PT Coag (PPP) [Time] 10.6 s Normal 9.4 - 1 2.5 second(s) [facility] Auto Coag Consent for Treatmenton 05-24 Consent for Treatment [id number] [facility] [id number]:127 Normal [facility] HEMATOLOGYOrdered By: SYSTEM SYSTEM on 06-11-2022 Basophils/100 WBC (Bld) 1.5 % Normal 0.0 - 2.0 % [facility] HemeAutoSS Basophils/Leukocytes Auto (Bld) [Pure # fraction] 0.1 E9/L Normal 0.0 - 0.2 E9/L [facility] HemeAutoSS Eosinophils/100 WBC (Bld) 4.1 % Normal 0.0 - 8.0 % [facility] HemeAutoSS Eosinophils/Leukocytes Auto (Bld) [Pure # fraction] 0.2 E9/L Normal 0.0 - 0.5 E9/L [facility] HemeAutoSS Lymphocytes/100 WBC (Bld) 40.8 % Normal 14.0 - 50.0 % [facility] HemeAutoSS Lymphocytes/Leukocytes Auto (Bld) [Pure # fraction] 1.6 E9/L Normal 1.0 - 4.0 E9/L [facility] HemeAutoSS Monocytes/100 WBC (Bld) 7.5 % Normal 4.0 - 14.0 % [facility] HemeAutoSS Monocytes/Leukocytes Auto (Bld) [Pure # fraction] 0.3 E9/L Normal 0.2 - 1.0 E9/L [facility] Neutrophils/100 WBC (Bld) 46.1 % Normal 36.0 - 75.0 % [facility] Neutrophils/Leukocytes Auto (Bld) [Pure # fraction] 1.8 E9/L Low 2.0 - 7.5 E9/L [facility] HEMATOLOGYOrdered By: Jennifer Shepard on 06-11-2022 Erythrocyte distribution width (RBC) [Ratio] 18.0 % High 10.9 - 14.2 % [facility] Hematocrit (Bld) [Volume fraction] 33.2 % Low 34.0 - 46.0 % [facility] Hemoglobin (Bld) [Mass/Vol] 10.7 g/dL Low 12.0 - 16.0 gm/dL [facility] MCH (RBC) [Entitic mass] 26.2 pg Low 27.0 - 34.0 pg [facility] MCHC (RBC) [Mass/Vol] 32.3 g/dL Normal 31.4 - 36.0 gm/dL [facility] MCV (RBC) [Entitic vol] 81.1 fL Normal 80.0 - 100.0 fL [facility] Platelet mean volume (Bld) [Entitic vol] 7.3 fL Normal 6.4 - 10.8 fL [facility] Platelets (Bld) [#/Vol] 311.0 E9/L Normal 150.0 - 500.0 E9/L [facility] RBC (Bld) [#/Vol] 4.1 E12/L Low 4.3 - 5.9 E12/L [facility] WBC corrected for nucl RBC Auto (Bld) [#/Vol] 4.0 E9/L Normal 4.0 - 11.0 E9/L [facility] PT & PTTon 06-11-2022 aPTT Coag (PPP) [Time] 33.1 second(s) Normal 25.1-36.5 [facility] Comment on above: Result Comment: Para meter 15 days - 4 weeks 1 - 5 months 6 - 11 months 1 - 5 years 6 - 10 years 11 - 17 years PTT Mean: 35.4 (27.6-45.6) Mean: 33.5 (24.8-40.7) Mean: 32.4 (25.1-40.7) Mean: 31.6 (24.0-39.2) Mean: 31.6 (26.9-38.7) Mean: 31.0 (24.6-38.4) Pediatric Reference ranges were obtained from a study by chelita Tapia al. prepared from 1437 samples obtained at 7 different centers using the same coagulation reagent and instrumentation as [facility]. Currently there are no coagulation studies available worldwide for children to 14 days, and no normal ranges. Heparin therapeutic range (represented by Anti-Factor Xa activity of 0.2 - 0.4 U/mL) corresponds to PTT of 56.6 - 109.0 sec. Performed By: #### 1 [id number], [id number], [id number], [id number], [id number] #### [facility] [address] [place] [address] INR Coag (PPP) [Relative time] 1.0 {INR} Invalid Interpretation Code [facility] Comment on above: Result Comment: INR results are specifically intended to assess patients stabilized on long-term Anticoagulation therapy suggested INR?s ?Less Intensive Anticoagulation? 2.0 ? 3.0 Conventional Range 3.0 ? 4.5 Performed By: #### 1 [id number], [id number], 3624336, [id number], [id number] #### [facility] [address] [place] [address] PT Coag (PPP) [Time] 10.6 second(s) Normal 9.4-12.5 [facility] Comment on above: Result Comment: 15 d ays - 4 weeks 1 - 5 months 6 -11 months 1- 5 years 6-10 years 11 -17 years Mean: 11.2 (9.5-12.6) Mean: 11.0 (9.7-12.8) Mean: 11.0 (9.8-13.0) Mean: 11.3 (9.9-13.4) Mean: 11.7 (10.0-14.6) Mean: 11.8 (10.0 - 14.1) Pediatric Reference ranges were obtained from a study by Tien Allen et al. prepared from 1437 samples obtained at 7 different centers using the same coagulation reagent and instrumentation as [facility]. Currently there are no coagulation studies available worldwide for children to 14 days, and no normal ranges. Performed By: #### 1 [id number], 1550853, 8308111, 6403436, [id number] #### [facility] [address] [place] [address] UA With Cult Reflexon 2022 Bacteria LM Ql (Urine sed) 3+ /HPF Abnormal Trace [facility] Comment on above: Performed By: #### 1 [id number], [id number] ####[address] [place] [address] Bilirubin Ql (U) Negative Normal Negative [facility] Comment on above: Performed By: #### 1 [id number], [id number] ####[address] [address] Clarity (U) SL CLOUDY Abnormal Clear [facility] Comment on above: Performed By: #### 1 [id number], 8854611 ####[address] [address] Color (U) YELLOW Normal Yellow [facility] Comment on above: Performed By: #### 1 [id number], [id number] ####[address] [address] Epithelial cells.squamous LM.HPF (Urine sed) [#/Area] 3-4 Normal 0-2 [facility] Comment on above: Performed By: #### 1 [id number], [id number] ####[address] [place] [address] Glucose Test strip (U) [Mass/Vol] Negative Normal Negative [facility] Comment on above: Performed By: #### 1 [id number], [id number] ####[address] [place] [address] Hemoglobin Ql (U) 2+ Abnormal Negative [facility] Comment on above: Performed By: #### 1 [id number], [id number] ####[facility] [address] [place] [address] Ketones (U) [Mass/Vol] Negative Normal Negative [facility] Comment on above: Performed By: #### 1 [id number], [id number] ####[facility] [address] [place] [address] [place].plasma/[place] .RBC (Bld) [Mass ratio] 4-20 Normal 0-3 [facility] Comment on above: Performed By: #### 1 [id number], 0875109 ####[address] [address] Nitrite Ql (U) Positive Abnormal Negative [facility] Comment on above: Performed By: #### 1 [id number], 9342503 ####[id number] pH (U) 6.0 [pH] Invalid Interpretation Code 5.0-9.0 [facility] Comment on above: Performed By: #### 1 [id number], 4239342 ####[address] [address] Protein (U) [Mass/Vol] TRACE Abnormal Negative [facility] Comment on above: Performed By: #### 1 [id number], 3360720 ####[address] [address] Specific gravity (U) [Rel density] 1.025 Invalid Interpretation Code 1.005-1.030 [facility] Comment on above: Performed By: #### 1 [id number], 4328498 ####[address] [address] Type of Urine collection method Clean Catch Normal [facility] Comment on above: Performed By: #### 1 [id number], 8848744 ####[address] [address] Urobilinogen Qn (U) 0.2 {Coby'U}/dL Normal 0.0-1.0 [facility] Comment on above: Performed By: #### 1 [id number], 4953759 ####[facility] [address] [place] [address] WBC Auto Ql (U) 3+ Abnormal Negative [facility] Comment on above: Performed By: #### 1 [id number], 9238360 ####[facility] [address] [place] [address] WBC LM.HPF (Urine sed) [#/Area] /[HPF] Abnormal 0-5 [facility] Comment on above: Performed By: #### 1 [id number], 9502287 ####[facility] [address] [place] [address] URINALYSISOrdered By: Pia weber on 06-11-2022 Bacteria LM Ql (Urine sed) 3+ /HPF Invalid Interpretation Code Trace/HPF [facility]A Auto SS Bilirubin Ql (U) Negative (06/11/22 9:56 AM) Normal Negative [facility]A Auto SS Clarity (U) Slightly Cloudy *ABN* (06/11/22 9:56 AM) Invalid Interpretation Code Clear [facility] Color (U) Yellow (06/11/22 9:56 AM) Normal Yellow [facility]A Auto SS Epithelial cells.squamous LM.HPF (Urine sed) [#/Area] 3-4 /HPF Normal 0-2/HPF [facility] UA Aut o SS Glucose Test strip (U) [Mass/Vol] Negative (06/11/22 9:56 AM) Normal Negative [facility] Auto [facility] Hemoglobin Ql (U) 2+ *ABN* (06/11/22 9:56 AM) Invalid Interpretation Code Negative [facility] Ketones (U) [Mass/Vol] Negative (06/11/22 9:56 AM) Normal Negative [facility] UA Auto SS [place].plasma/[place] .RBC (Bld) [Mass ratio] 4-20 /HPF Normal 0-3/HPF [facility] Nitrite Ql (U) Positive *ABN* (06/11/22 9:56 AM) Invalid Interpretation Code Negative [facility] pH (U) 6.0 *NA* (06/11/22 9:56 AM) Invalid Interpretation Code 5.0 - 9.0 [facility] UA Auto SS Protein (U) [Mass/Vol] Trace *ABN* (06/11/22 9:56 AM) Invalid Interpretation Code Negative [facility] UA Auto SS Specific gravity (U) [Rel density] 1.025 *NA* (06/11/22 9:56 AM) Invalid Interpretation Code 1.005 - 1.030 [facility] UA Auto SS UA Spec Desc Clean Catch (06/11/22 9:56 AM) Normal [facility] UA Auto SS Urobilinogen Qn (U) 0.7605826 {Coby'U}/dL Normal 0.0 - 1.0 EU/dL [facility] UA Auto SS WBC Auto Ql (U) 3+ *ABN* (06/11/22 9:56 AM) Invalid Interpretation Code Negative [facility] UA Auto SS WBC LM.HPF (Urine sed) [#/Area] /[HPF] Invalid Interpretation Code 0-5/HPF [facility] UA Auto SS eGFRon 06-11-2022 GFR/1.73 sq M.predicted among blacks MDRD (S/P/Bld) [Vol rate/Area] 35 mL/min/1.73 m2 Low >=59 [facility] Comment on above: Order Comment: Order added by Discern Expert. Result Comment: eGFR is race adjusted. AA=. Performed By: #### 1 [id number], 0373741, 9535073, 2202725, [id number] ####[facility] [address] [place] [address] GFR/1.73 sq M.predicted among non-blacks MDRD (S/P/Bld) [Vol rate/Area] 29 mL/min/1.73 m2 Low >=59 [facility] Comment on above: Order Comment: Order added by Discern Expert. Result Comment: Acoustics Teacher barron kidney disease could be indicated at eGFR's of less than 60 mL/min/1.73m2. Kidney failure is indicated at less than 15 mL/min/1.73m2. Performed By: #### 1 [id number], 3497141, 3342296, 3514251, [id number] ####[facility] [address] [place] [address] Outside Recordson 05-14-2022 Outside Records [id number]# 1.00CD:127 Normal [facility] Consultation Noteon 05-07-20 Consultation Note [id number]#1 .00CD:127 Normal [facility] Office Visit (Cardiology)on 05-05-2022 Follow-up visit Diagnoses/Problems Assessed Benign essential hypertension (401.1) (I10) Overweight with body mass index (BMI) of 26 to 26.9 in adult (278.02,V85.22) (E66.3,Z68.26) Never a smoker Pre-operative cardiovascular examination (V72.81) (Z01.810) Orders Benign essential hypertension, Pre-operative cardiovascular examination IO EKG Electrocardiogram- 12 Lead; Status:Complete; Done: [id number] Overweight with body mass index (BMI) of 26 to 26.9 in adult Healthy Weight Tips; Status:Complete - Retrospective Authorization; Done: [id number] Some eating tips that can help you lose weight.; Status:Complete - Retrospective Authorization; Done: [id number] SocHx: Never a smoker Tobacco Use Screening; Status:Complete; Done: [id number] Patient Instructions Please bring all medicines, vitamins, and herbal supplements with you when you come to the office. Prescriptions will not be filled unless you are compliant with your follow up appointments or have a follow up appointment scheduled as per instruction of your physician. Refills should be requested at the time of your visit. Patient is clear for surgical procedure Follow up as needed Chief Complaint ELIZABETH POLLOCK is being seen for a consultation for. POC, stone surgery/Dr. Blum History of Present Illness Patient seen for preoperative risk assessment at the request of Dr. Blum She is an individual who had a screening EKG done that was abnormal. Details in this regard are unavailable and nobody send us the EKG. Today's office EKG, though, is basically normal Further discussion reveals that the patient has never smoked, is nondiabetic, and has well-controlled hypertension. Her lipid status is excellent, and there is no family history of premature coronary disease. Mother had a vague cardiovascular history of father sounds as if he from complications of alcohol excess. Most importantly she is very aerobically active. She walks the beach several times per week up to 5 miles at a time in the soft sand and without exertion she has no angina, no dyspnea, and no arrhythmia symptomatology. Is basically a stress test without any symptomatology whatsoever. Because of the fact that she has an excellent aerobic tolerance without symptoms, normal EKG, normal exam, and a low risk profile I believe she is a suitable candidate for surgery and I will correspond with Dr. Blum in this regard. Active Problems Problems Never a smoker Surgical History Problems History of Carpal tunnel surgery Denied: History of Colonoscopy History of Gastric bypass surgery History of Urethral stent placement Current Meds Medication NameInstruction Cymbalta 60 MG Oral Capsule Delayed Release ParticlesTAKE 1 CAPSULE Bedtime Lisinopril 20 MG Oral TabletTAKE 1 TABLET Before meals Ozempic (0.25 or 0.5 MG/DOSE) 2 MG/1.5ML Subcutaneous Solution Pen-injectoriuse as directed rOPINIRole HCl - 1 MG Oral TabletTAKE 1 TABLET AT BEDTIME. Allergies Medication No Known Drug Allergies Recorded By: Sami Li; 05/05/2022 3:42:46 PM Family History Mother Family history of myocardial infarction (V17.3) (Z82.49) Father Family history of myocardial infarction (V17.3) (Z82.49) Social History Problems Never a smoker No alcohol use No illicit drug use Occasional caffeine consumption Review of Systems Constitutional: not feeling tired. Eyes: no eyesight problems. ENT: no hearing loss and no nosebleeds. Cardiovascular: no intermittent leg claudication and as noted in HPI. Respiratory: no chronic cough and no shortness of breath. Gastrointestinal: no change in bowel habits and no blood in stools. Genitourinary: no urinary frequency. Skin: no skin rashes. Neurological: no seizures and no frequent falls. Psychiatric: no depression and not suicidal. All other systems have been reviewed and are negative for complaint. Vitals Vital Signs Recorded: [id number] 03:50PMRecorded: 50Osx7393 03:49PM Tfhwwmvy42, RUE, Ldhbswy81, LUE, Sitting Qyqjpvyki34, RUE, Mgebywh25, LUE, Sitting Heart Uygd785, Apical Height5 ft 3 in Qpkisd777 lb BMI Mttgqqyppr49.22 kg/m2 BSA Calculated1.7 Tobacco Useb) No PHQ-2 Patient Declined/Screening not indicatedYes EKG done in office today. Physical Exam Constitutional: alert and in no acute distress. Eyes: no erythema, swelling or discharge from the eye . Neck: neck is supple, symmetric, trachea midline, no masses and no thyromegaly . Pulmonary: no increased work of breathing or signs of respiratory distress and lungs clear to auscultation. Cardiovascular: carotid pulses 2+ bilaterally with no bruit , JVP was normal, no thrills , regular rhythm, normal S1 and S2, no murmurs , pedal pulses 2+ bilaterally and no edema . Abdomen: abdomen non-tender, no masses and no hepatomegaly . Skin: skin warm and dry, normal skin turgor . Psychiatric judgment and insight is normal and oriented to person, place and time . Signatures Electronically (more content not included)... Normal [facility] Tobacco Screening.on 022 Tobacco use status [facility] b) No [facility] y [address] DO Work Phone: Tobacco Screening. Yes [facility] [address] DO Work Phone: Coding Summary.on 04-21-2022 Coding Summary. CD:[id number] G h0bWw+PGhlYWQ+SU2FSEG cK64lqEBxyM4AE3tLKU6P ZOAJZWJSOH0PPQ7vmIF6C CxjF5QwsdCx TaqlxTQtEI52TSk2HCU3t OabOHnwfV0baRYzC8g0Vl QmDP61zE75YQafNYYfIuQ 3LjZpbjsgbWFy K8mlCfMcvSEfNle+PHRhY mxlIHdpZHRoPScxMDAlJy GklGxqAM0bLg5fNUMjJBY vbGxhcHNlOiBj p0plTCVeNDlgLO8udUvlK 4EizRQ5MDXzt1g9Fp97gV I+FSNiPYM1tHckXGaoe23 8JtQfy7seFZD3 mDZrZWjkVJA9Q59zb6K9P BKdOQQmYDJ1aGN8vR0mgK yurfxpV9IglSGmCeR0VJW 3tBBqoI6neEcn yzrcsG7zMnj+Y83NIT3OV LGRPB7JPky0D8HnTnumyC I+CU62LRYjDA51qKEkfVZ ym4yfaGa6FuYv LUPkHAW6aHaeIOdrk7SlJ NInW21quDUex4B8MPBeaS nntAWuCaXfmYT3nS0vXCp bylqje9nocbbr Yqzha5dqcx85rH03E33qR TntHXOnYDO6NUSkMPEyyJ xxvu1zyK6tLz2+QOmoa0i nw0blhZg6CcMd SXAlwaIscPlnEWD6u2HyX t18J5IwhBnmf1CeLmi6dq 98qVUxa0V1hNS9HCwrDDI emC6oCDufRqT4 IAYoTeLnaY16iJVtYEcfN w8pmJocoFgcWV3wQJRdns xxAXYhrI7xVHLsvLJnxUj jFS5rKHLpeusj o345WrUmJSA3IOAcfYKhU 4MkhW1kFtVaCKWkGBRgU2 BlxVEaLUoqF991DKmqAuQ 0DEDjbcAiF2Iu QDPubGjhFsZ3b5S8Cm6Lw 7XcopnrLCB2FQyrZGKjDl H8DyOgLvC2C8QlVnz7IQM myJugHS9fO8Ay PPLzjrpkkdjxxGC1PVQlI AOnyB80eUSkVZvuXn2jx7 C4m609PLGhZQWavX02Jt0 udDogMTBwdCBU tB9babhxy4xkprciXpKfO TCdNIt9ZMe4VZVodGzyWm OjWPU7EaR9YXD2eIIqyJ8 oqAzzewguhM7w Oyc+K01sqV1eCWI9BMU3h bcuKOGrznQpXV13FV81K3 RyPjwvdGFibGU+PGRpdiB avRflXL1uNkSr j4ecz3RuBMqqB0CtRSZdD TtmJos1MCWqEKP4eDT5iN 2cMCJkAMlek9Q1hTU2U4Q ymqUpwh6kv9ja FFCyIZoeX95xnTRtp3E7Q MXsgRY4DYEkkDkqVlCnvY 93Oyc+RIMfuCjsh6UaBvv bi9skn5rzoUa1 ZpHpKNVaejGilStqQBN9t 0PlDh11H96jTUysXOLsJY AuNXVuYGXzdMgigs6wvY8 wIi8+PGNvbCB3 zLW1vC3aBMCmYhF9OVxxR 306BkGjqHLkKljdd0yxg6 rmkXk9ViKlXHWtebWlyEn kGXV7g8QmKl34 H63mUTucBAFuDNErYOBtS QEuqXttjl5yiX8iEb1+PC 2ax4wjgj34gG98jEG+PHR mRDX0hDyqZEkk VUInoW5jKUhxDxB1YAKbW bDsbD98hDCrCVssMz8yxU hqyBmkQD5bERLvfzhph55 7EgYue3arDKIt qQOtLUxcKBH9S43cq4E7K LNpKDQlBDC7nGH9zM8lrD lnbjogbGVmdDsgdmVydGl fZExgHMrlK714 IHRvcDsnPlBhdGllbnQgT nJaLFj4B4NkJtw4TTRccS hbPN9tgGBmSXxjTi6obMs siWazQZ8xUGWc vpzgp870DsTas9knSKNwr BQdSXwdWYD4Q61ih6Y2OF VjFHKiEXQ9wMK0hF9viVe nbjogbGVmdDsg bwYtmViiSWwoPEztX810P HRvcDsnPkJpcnRoIERhdG X7RA91AC31vETrd8L0fTB 4V0WoQDAhsier bumfwFD7FKLyHMNjuF77S d9ysLjzCg4mQOHaORD5NS BqkYOgU0QczT8gPqBcMWR uDNMnD4PhqIOf EGhqY031CQhaMpY5KGPro vDbY9DcDSPauGfdScH6m2 Q3Cp9PA5W3TC59WA69dMZ us6G5yWF3G6Jy NALqhvmscsmkrTF8IPCbU RUdmQ92Er2lzDtmOa4wMY AnEZD3IJMdpGXoQ1TrpW0 yOiAjMDAwMDAw I2CbvGEoTQmsU753PAxcG vA9DBMmnbQcU6CzTSHunN dvIoV5e3A0Ek6PJMd1BX8 1JG54zQFkr0J8 mMY3W9HmYOOaojdtcfnya MA3TQDzRSArfT44Fu9uvB rqGq9kWAOoCHQ4JCXfdBN uT5KawG5kTzRr XMIaCATgV7LocJUsAHhwY 070FDqfJkK7UWAdjiBjD9 BbRZEnhRnfKoP7v9B5Eb4 TIPPfZB46POZ6 nFJ5EC85SV94K6LxXsawx GFibGU+PHRhYmxlIHdpZH RoPScxMDAlJyBzdHlsZT0 mFd1iETJlTQDh dDichCHjHgZpn6ldIZZzA VsqYF4blExqW9WgqRL7PZ Vmz4q9Uv19A35kQ0AosBO +TSTrcTF0hUB8 cR7pKaDyBwK7QEpcI285D lJgpNMpIecbt6nug7nzgZ h3ElT3CBHugyMclInzYBZ 8w8KzRo42K33e IHdpZHRoPSIxNSUiIHZhb Rjvzk9hhN5vFa4+PGNvbC X1jVP3gD2rWzUeUpH3KTd yE708VjSjcJJh Kglck0nwx9gljKq5PoNvX TPiihBjaPekYAL9g7NkGc 42L0NiiVhka1WvMev2pa4 3bEKiu5Y6hFS4 S1RlCHYkqudzcGGeeZycC M8tEYXicedtSHGdrN5jOF QcX5s5SmTzEgL5OZdaG1B kxzT2WNIenLPu UApcTHL1V72ol4D7NDFlH ZVkWHO4vIF8nI2neUyygs ogbGVmdDsgdmVydGljYWw mHFpuG916GAFc yXleDRNxqC0lSQBhcWJco VnhBA2eGGXzunagIyPLPC XLNS8nNHsJGNkVHVd6I5Y tYtm1KFSefRpy JM5qiIOoTPdbKn9qlLnug CmnAK9tOJOjahonGREowB 7yNOFtcTRdlTlkAG7mFRP datogl279CoBg BQW1BFFjgUGyC8AwvB9uS dFcVMVtBWFwD0QtbVFgCW bkL285KRrxSfC1DVFpwbU eX7SfXWPpxJno McN5k4D0Mp5uBi8aXH3nZ NW7HZ84OX15kRTga3Y0xX X2P6KyGRVhlynnjrzcwBA 6RRGfQHQnxD76 mCDdPAcxWu5hq8J2y731E RYxKLRcvW54Xj4kwWjgSV AjyQWVkY9ccazgu7mbtot gIzAwMDAwMDt0 XYq4UMGokIxeMzWwDYD4Z hY5OPY3xTFopG9lzGnaij zhhO2dGfz+NTcgWWVhcnM 0B3IiBkg5NJFb lPgcAA0goSSnCPlvAi5km WyrpHuoOS3jPKTganavEU IetB6bYMGqpTNndKboFP0 mTISfupbmf023 TjVzMBP9ICZvxMDwS5Unj M1uUnRoWVNiIRSvO1QygU MsJSotV971EVzfYbP6GUR cmuYpE9RmRZXg tRmyEfV4r9L8Ba3OIT1fa FE7I9KnQnk4LNCfqVriZW 7isMHjAMilEn2fzEhdaLq wKJ0lCFZmufrk POLmrQ0fMVBivDCbbKeoD X1cHXFjhmcmm142YoGtYE L8ZMTfjYSyE9WulV5aCaY iSLFoEQWhJ0Li iFZhGSzzR514BAtwXqZ3S NYshoOxU2TyXICmjYphDa H6c7P6Qt9PdLCpNQDhHA1 0IJ21PG44V9Nx PjwvdGFibGU+PHRhYmxlI HdpZHRoPScxMDAlJyBzdH hvLJ9cTx2jOHLtBYFlwUs faWOqTfBio1ov MYUjNRkoIV5dkIgyV3Ltd BL7OCZbe4t9An87O57rU9 JvdXA+KEXorLV6oWV8jH5 eTzBbHcL2IEps E751VqAgyKVzDnjne5tuf 1zqhNo6KnDfXBZqzcRlqO pmXPK3x8UkBl00T52iHIy pZHRoPSIyMCUi KDYihJmoto4jdR1tXd7+P DTgdJE7yNO0mO0pHaUyKu Y4XLqiC680CiUooRTcIln iP63rS2TelJT+ DLMxWgf2IBOsbShkTH3kf JFjTMueQb0oSSC0OeXoPn DfCTwfY2CrRSFhsqrwyws wbXF3FKEwKRQn uB62Ie4knVajDs3lWOFwN OV3AOCmnUHjO3TlbE5gUy JwKXXtBLQxJ0EynWOgBDh wA643ZTctHkF6 VURmueTnW1ZjVNLqbKvkP fO1i8R5Lr2UuSvhcVMlGL 7sHaQvSSe8N0FoLmc4FYZ juFpyWA8ttNVt ZRuyYx1efXmeaYlpYS5sM PHosfwtr025IoCiq8ofYH DioLKaCYmhZCL4H42ci0K 0HYUiPLFsYDM1 iFB1bD3zbKuugnwmmFLzt DsgdmVydGljYWwtYWxpZ2 32RUYftIdlVmVWKlr3N2C fQzj7KHNqyAuj YL7qeOKqKGunJa1ntLhmg XsrBD8pKCEfmspkt792Gy Aye1szRZNcpSAxQNuoQKN 0W71aw1G2GFDw HWKdEVW6mWT5iO5itElxi jogbGVmdDsgdmVydGljYW qwQKtzK766EUDshThlSo7 PHtk5Q0PkUqh2 XYBbeOyqVK7isFLqOIbiZ s6uhIxziHfzAI7vOIBsok hpj173CwAxq7ukBQUbhSN mWUuzJFY5B53n z0M6SFPaATDsIBN0wPM5q S8miKykkrgzdBGtwYpqts DiiTjyEXexKQxrR250TAS vcDsnPlBheWVy OjwvdGQ+BP02wo03S0TbY uaqGas8DTIoTFO4yRW6sH 2tMJJqMChbh8Z1cNX1C4Z kxcMnkk6vx0ih YXBz (more content not included)... Normal [facility] Outside Recordson 04-21-2022 Outside Records [id number]#1 .00CD:127 Normal [facility] Consent for Treatmenton 03-25 Consent for Treatment [id number]#1 .00CD:127 [facility] XR Chest 2 Viewson XR Chest 2 Views Exam Date/Time: 04/17/2022 07:48 EST Reason for Exam: PRE OP Report IMPRESSION: NO EVIDENCE OF ACTIVE CHEST DISEASE. CLINICAL HISTORY: PRE OP. COMMENT: The heart is normal in size. The mediastinum is unremarkable. The lungs appear clear. No infiltration nor pleural effusion is evident. FINAL REPORT Dictated: 04/17/2022 8:03 am Colt Sweeney M.D. Signed (Electronic Signature): 04/17/2022 8:03 am Signed by: Colt Sweeney M.D. Transcribed by: HARDEEP Technologist: CC Normal [facility] Outside Recordson 04-14-2022 Outside Records [id number] .00CD:127 Normal [facility] RAD - MISCon 04-06-2022 RAD - MISC [id number] .00CD:127 Normal [facility] Insurance Correspondence Off iceon 04-02-2022 Insurance Correspondence Office [id number] .00CD:127 Normal [facility] Formson 04-01-2022 Forms [id number] 1.00CD:127 Normal [facility] XR KUB 1 VIEWon 04-01-2022 XR KUB 1 VIEW EXAMINATION: XR KUB 1 VIEW HISTORY: Kidney stone COMPARISON: XR KUB 03/21/2022 FINDINGS: KIDNEY/URETER - RIGHT: Stable large 1.3 cm stone projecting over right kidney. KIDNEY/URETER - LEFT: Stent within left ureter which appears to be folded/overlapping within the mid ureter. Stable 10 mm stone within proximal ureter. PELVIS: No visible ureteral calcifications. Any visible calcifications favor phleboliths. BOWEL: No abnormal dilation or deviation. BONES: No acute abnormality. OTHER: Negative. No abnormal gaseous collections. IMPRESSION: 1. Stable right nephrolithiasis. 2. Stable large stone within proximal left ureter. 3. Left ureteral stent which is looped within the mid ureter/folded on top of itself which could end up obstructing. Electronically authenticated by: NATACHA WILD Date: 2022-04-01 08:23 Normal [facility] Patient Educationon 03-31-20 Patient Education Urology Kidney Stones Kidney stones are rock-like masses that form inside of the kidneys. Kidneys are organs that make pee (urine). A kidney stone may move into other parts of the urinary tract, including: ? The tubes that connect the kidneys to the bladder (ureters). ? The bladder. ? The tube that carries urine out of the body (urethra). Kidney stones can cause very bad pain and can block the flow of pee. The stone usually leaves your body (passes) through your pee. You may need to have a doctor take out the stone. What are the causes? Kidney stones may be caused by: ? A condition in which certain glands make too much parathyroid hormone (primary hyperparathyroidism). ? A buildup of a type of crystals in the bladder made of a chemical called uric acid. The body makes uric acid when you eat certain foods. ? Narrowing (stricture) of one or both of the ureters. ? A kidney blockage that you were born with. ? Past surgery on the kidney or the ureters, such as gastric bypass surgery. What increases the risk? You are more likely to develop this condition if: ? You have had a kidney stone in the past. ? You have a family history of kidney stones. ? You do not drink enough water. ? You eat a diet that is high in protein, salt (sodium), or sugar. ? You are overweight or very overweight (obese). What are the signs or symptoms? Symptoms of a kidney stone may include: ? Pain in the side of the belly, right below the ribs (flank pain). Pain usually spreads (radiates) to the groin. ? Needing to pee often or right away (urgently). ? Pain when going pee (urinating). ? Blood in your pee (hematuria). ? Feeling like you may vomit (nauseous). ? Vomiting. ? Fever and chills. How is this treated? Treatment depends on the size, location, and makeup of the kidney stones. The stones will often pass out of the body through peeing. You may need to: ? Drink more fluid to help pass the stone. In some cases, you may be given fluids through an IV tube put into one of your veins at the hospital. ? Take medicine for pain. ? Make changes in your diet to help keep kidney stones from coming back. Sometimes, medical procedures are needed to remove a kidney stone. This may involve: ? A procedure to break up kidney stones using a beam of light (laser) or shock waves. ? Surgery to remove the kidney stones. Follow these instructions at home: Medicines ? Take [id number] and prescription medicines only as told by your doctor. ? Ask your doctor if the medicine prescribed to you requires you to avoid driving or using heavy machinery. Eating and drinking ? Drink enough fluid to keep your pee pale yellow. You may be told to drink at least 8?10 glasses of water each day. This will help you pass the stone. ? If told by your doctor, change your diet. This may include: ? Limiting how much salt you eat. ? Eating more fruits and vegetables. ? Limiting how much meat, poultry, fish, and eggs you eat. ? Follow instructions from your doctor about eating or drinking restrictions. General instructions ? Collect pee samples as told by your doctor. You may need to collect a pee sample: ? 24 hours after a stone comes out. ? 8?12 weeks after a stone comes out, and every 6?12 months after that. ? Strain your pee every time you pee (urinate), for as long as told. Use the strainer that your doctor recommends. ? Do not throw out the stone. Keep it so that it can be tested by your doctor. ? Keep all follow-up visits as told by your doctor. This is important. You may need follow-up tests. How is this prevented? To prevent another kidney stone: ? Drink enough fluid to keep your pee pale yellow. This is the best way to prevent kidney stones. ? Eat healthy foods. ? Avoid certain foods as told by your doctor. You may be told to eat less protein. ? Stay at a healthy weight. Where to find more information ? National Kidney Foundation (NKF): www.kidney.org ? [employer] (UCF): www.urologyhealth.org Contact a doctor if: ? You have pain that gets worse or does not get better with medicine. Get help right away if: ? You have a fever or chills. ? You get very bad pain. ? You get new pain in your belly (abdomen). ? You pass out (faint). ? You cannot pee. Summary ? Kidney stones are rock-like masses that form inside of the kidneys. ? Kidney stones can cause very bad pain and can block the flow of pee. ? The stones will often pass out of the body through peeing. ? Drink enough fluid to keep your pee pale yellow. This information is not intended to replace advice given to you by your health care provider. Make sure you discuss any questions you have with your health care provider. Document Released: 10/26/2008 Document Revised: 09/26/2019 Document Reviewed: 09/26/2019 [employer] Patient Education ? 2019 [employer] [facility] Urology Office/Clinic Noteon 03-31-2022 Urology Office/Clinic Note Chief Complaint New Pt HPI Staff New Pt. Pt was seen at [facility] on 03/19/22 due to right flank pain. Cysto/bilateral retrograde pyelogram/basket extraction right distal ureteral calculus done 03/19/22. KUB done 03/31/22-CD Dysuria: yes having pain and burning Incomplete bladder emptying: yes Hematuria: denies visible blood Frequency: denies Urgency: denies Nocturia: denies Stream: yes hesitancy, yes weak stream Leaking: denies Post void dripping: denies Wearing pads/ Depends: denies Urge incontinence: denies Stress incontinence: denies Incontinence without Sensory Awareness: denies Abdominal pain: denies Flank pain: denies Sexual complaints: denies History of Present Illness Tests reviewed: xray I have reviewed the previous health record information and history for this patient from Dr. Blum I have reviewed and verified the staff HPI to be accurate for this encounter. There have been no associated fever, chills, flank pain, or blood in the urine. Denies any urinary infections since last encounter. Review of Systems PHQ Score Initial Depression Screen Score: 0 ROS - Provider Constitutional: denies weight loss, denies hot flashes. Eyes: denies eye problems. Gastrointestinal: denies nausea, denies vomiting. Cardiovascular: denies chest pain or angina. Integumentary: no dryness Musculoskeletal: denies musculoskeletal symptoms. ENMT: denies otolaryngeal symptoms. Respiratory: no shortness of breath. Heme/Lymph: denies easy bleeding tendency, denies easy bruising tendency. Psychiatric: no confusion, no anxiety. Genitourinary: denies vaginal discharge, denies incontinence, denies dysuria, denies hematuria, denies urinary frequency, denies amenorrhea, denies menorrhagia, denies abnormal bleeding, denies pelvic pain, denies genital sores, and denies decreased libido. Physical Exam Vitals & Measurements HR: 79(Peripheral) BP: 125/87 WT: 75.1 kg WT: 165.22 lb General Appearance: alert , no acute distress, well nourished, well developed female. Genitourinary: bladder nonpalpable, no flank pain. Assessment/Plan No UA provided today. 1. Ureteral stone (N20.1: Calculus of ureter) New patient. Pt was seen at [facility] on 03/19/22 due to right flank pain. S/p Cysto/bilateral retrograde pyelogram/basket extraction right distal ureteral calculus done 03/19/22. KUB done 03/31/22, results on CD shows stone on left and right still present. Left side stone more of a concern at this time as it has moved down further than the right stone. Discussed tx of present stones now and stone prevention (met w/up) in the future. Will schedule left ESWL. The procedure risks, benefits, details and treatment alternatives have been discussed with the patient. These include blood in the urine, infection, bleeding around the kidney, kidney bruising, inability to break up the stone, need for blood transfusion, blockage from stone fragments, and need for additional procedures, among others. Full informed consent has been obtained. Will order General anesthesia. Risks of anesthesia itself discussed. Pt understands that the stones are very dense and did not break easily last time and that further intervention may be required after ESWL. 2. Large right renal stone Overall the patient is status post ureteroscopy and a left holmium laser ablation and basket extraction of the left mid ureteral stone but the left proximal stone remains. This is the reason for recommended lithotripsy and this may be a staged procedure with eventual holmium laser ablation of that stone indicated depending on its breakage. She also has a large right renal calculus which currently is not in a position of obstruction. Viewed urinalysis. Reviewed KUB. Reviewed prior operative reports. Eventual lithotripsy of that stone will be indicated at some point. We also need to plan for metabolic work-up. She agrees with all that and will proceed with left ESWL currently Follow-up With When Contact Information TRI REED, Chalo Frazier, URL [address] [place] [id number] Additional Instructions: Schedule Left ESWL Patient Education Kidney Stones, Bowb-re-Hvcw I, Jennifer Hamilton, personally scribed for Dr. Blum on 03/31/2022 13:36:28. . Documentation recorded by the scribe, Jennifer Hamilton, accurately reflects the services(s) I performed and decisions made by me. Authenticated by Dr. Blum on 03/31/2022 13:49:35. Problem List/Past Medical History Ongoing Anemia Arthritis Depression Hypertension Kidney stones Type 2 diabetes mellitus Ureteral stone Historical No qualifying data Procedure/Surgical History Cystoscopy (03/19/2022), Gastric bypass, Hysterectomy. Medications Cipro 500 mg Tab, Oral, q12hr duloxetine 60 mg Cap-DR, Oral, Daily lisinopril 20 mg Tab, Oral, Daily oxybutynin 5 mg ER Tab, Oral, Daily Ozempic, SubCutan (more content not included)... Normal [facility] Comment on above: Result Comment: Elec tronically Signed By: Chalo BLUM MD P\.br\Date and Time Signed: 03/31/22 13:50 EST\.br\Electronically Co-Signed By: Jennifer Hamilton\.br\Date and Time Co-Signed: 03/31/22 13:36 EST Operative Reporton 2 Operative Report [id number] .00CD:127 Normal [facility] CALCULI, URINARYon 2 2,8 Dihydroxyadenine Normal [facility] Comment on above: Performed By: #### C ALCULI #### [facility] [address] [address] [address] Adryan Faustin Ammonium Acid Urate Normal [facility] Comment on above: Performed By: #### C ALCULI #### [facility] [address] [address] [address] Adryan Faustin Bilirubin Ql (U) Normal [facility] Comment on above: Performed By: #### C ALCULI #### [facility] [address] [address] [address] Adryan Faustin Ca Oxalate Dihydrate 20 % Normal [facility] Comment on above: Performed By: #### C ALCULI #### [facility] [address] [address] [address] Adryan Faustin CaHPO4 (Brushite) Normal [facility] Comment on above: Performed By: #### C ALCULI #### [facility] [address] [address] [address] Adryan Faustin Calcium Bilirubinate [facility] Comment on above: Performed By: #### C ALCULI #### [facility] [address] [address] [address] Adryan Faustin Calcium Carbonate Normal [facility] Comment on above: Performed By: #### C ALCULI #### [facility] [address] [address] [address] Adryan Faustin Calcium Oxalate Monohydrate 80 % [facility] Comment on above: Performed By: #### C ALCULI #### [facility] [address] [address] [address] Adryan Faustin Calcium Palmitate Normal [facility] Comment on above: Performed By: #### C ALCULI #### [facility] [address] [address] [address] Adryan Faustin Calcium Phosphate Normal [facility] Comment on above: Performed By: #### C ALCULI #### [facility] [address] [address] [address] Adryan Faustin Calcium Stearate [facility] Comment on above: Performed By: #### C ALCULI #### [facility] [address] [address] [address] Adryan Faustin Carbonate Apatite Normal [facility] Comment on above: Performed By: #### C ALCULI #### [facility] [address] [address] [address] Adryan Faustin Cellular Material [place] [facility] Comment on above: Performed By: #### C ALCULI #### [facility] [address] [place] [address] Dr. Adryan Faustin Cholesterol [facility] Comment on above: Performed By: #### C ALCULI #### [facility] [address] [place] [address] Dr. Adryan Faustin Color (U) Brown Normal [facility] Comment on above: Performed By: #### C ALCULI #### [facility] [address] [place] [address] Dr. Adryan Faustin Comment [facility] Comment on above: Performed By: #### C ALCULI #### [facility] [address] [place] [address] Dr. Adryan Faustin Comment Comment [facility] Comment on above: Result Comment: Calc ulus received wet. Wet calculi must be dried before analysis, which delays reporting of results. Leaving calculi wet (such as water, saline, blood, urine) may lead to changes in composition. Performed By: #### C ALCULI #### [facility] [address] [place] [address] Dr. Adryan Faustin Comment: Comment Normal [facility] Comment on above: Result Comment: [facility] questions regarding Calculi Analysis contact [employer] at: [phone]. Performed By: #### C ALCULI #### [facility] [address] [place] [address] Dr. Adryan Faustin Composition Comment [facility] Comment on above: Result Comment: Perc entage (Represents the % composition) Performed By: #### C ALCULI #### [facility] [address] [place] [address] Dr. Adryan Faustin Cystine [facility] Comment on above: Performed By: #### C ALCULI #### [facility] [address] [place] [address] Dr. Adryan Faustin Disclaimer: Comment [facility] Comment on above: Result Comment: This test was developed and its performance characteristics determined by [facility]. It has not been cleared or approved by the Food and Drug Administration. Performed By: #### C ALCULI #### [facility] [address] [address] [address] Adryan Faustin Dried Blood Normal [facility] Comment on above: Performed By: #### C ALCULI #### [facility] [address] [address] [address] Adryan Faustin Drug or Metabolite Normal [facility] Comment on above: Performed By: #### C ALCULI #### [facility] [address] [address] [address] Adryan Faustin Hydroxyapatite Normal [facility] Comment on above: Performed By: #### C ALCULI #### [facility] [address] [address] [address] Adryan Faustin Mg NH4 PO4 (Struvite) [facility] Comment on above: Performed By: #### C ALCULI #### [facility] [address] [place] [address] Dr. Adryan Faustin MgHPO4 (Newberyite) Normal [facility] Comment on above: Performed By: #### C ALCULI #### [facility] [address] [address] [address] Adryan Faustin Other component(s) Normal [facility] Comment on above: Performed By: #### C ALCULI #### [facility] [address] [address] [address] Adryan Faustin PDF . Normal [facility] Comment on above: Performed By: #### C ALCULI #### [facility] [address] [address] [address] Adryan Faustin Photo Comment Normal [facility] Comment on above: Result Comment: Phot ograph will follow under a separate cover Performed By: #### C ALCULI #### [facility] [address] [address] [address] Adryan Faustin Please note: Comment [facility] Comment on above: Result Comment: Calc gustavo report will follow via computer, mail or supervisor [employer] delivery. Performed By: #### C ALCULI #### [facility] [address] [address] [address] Adryan Faustin Size 5x2 Normal [facility] Comment on above: Result Comment: Mult iple pieces received. Dimensions of the largest piece reported. Performed By: #### C ALCULI #### [facility] [address] [address] [address] Adryan Faustin Sodium Acid Urate Normal [facility] Comment on above: Performed By: #### C ALCULI #### [facility] [address] [address] [address] Adryan Faustin Source Comment [facility] Comment on above: Result Comment: Left Ureter Performed By: #### C ALCULI #### [facility] [address] [address] [address] Adryan Faustin [employer] [facility] Comment on above: Performed By: #### C ALCULI #### [facility] [address] [place] [address] Dr. Adryan Faustin Uric Acid [facility] Comment on above: Performed By: #### C ALCULI #### [facility] [address] [address] [address] Adryan Faustin Uric Acid Dihydrate Normal [facility] Comment on above: Performed By: #### C ALCULI #### [facility] [address] [address] [address] Adryan Faustin Weight 80 mg [facility] Comment on above: Performed By: #### C ALCULI #### [facility] [address] [place] [address] Dr. Adryan Faustin Xanthine [facility] Comment on above: Performed By: #### C ALCULI #### [facility] [address] [address] [address] Adryan Faustin RAD - CT Reporton 03-26-2022 RAD - CT Report [id number] .00CD:127 Normal [facility] RAD - MISCon 03-26-2022 RAD - MISC [id number] .00CD:127 Normal [facility] RAD - MISC [id number] .00CD:127 Normal [facility] [id number] .[id number]:127 Normal [facility] CALCULI, URINARYon 2 2,8 Dihydroxyadenine Normal [facility] Comment on above: Performed By: #### C ALCULI #### [facility] [address] [address] [address] Adryan Faustin Ammonium Acid Urate Normal [facility] Comment on above: Performed By: #### C ALCULI #### [facility] [address] [place] [address] Dr. Adryan Faustin Bilirubin Ql (U) [facility] Comment on above: Performed By: #### C ALCULI #### [facility] [address] [place] [address] Dr. Adryan Faustin Ca Oxalate Dihydrate 20 % [facility] Comment on above: Performed By: #### C ALCULI #### [facility] [address] [address] [address] Adryan Faustin CaHPO4 (Brushite) [facility] Comment on above: Performed By: #### C ALCULI #### [facility] [address] [place] [address] Dr. Adryan Faustin Calcium Bilirubinate [facility] Comment on above: Performed By: #### C ALCULI #### [facility] [address] [place] [address] Dr. Adryan Faustin Calcium Carbonate [facility] Comment on above: Performed By: #### C ALCULI #### [facility] [address] [place] [address] Dr. Adryan Faustin Calcium Oxalate Monohydrate 80 % [facility] Comment on above: Performed By: #### C ALCULI #### [facility] [address] [place] [address] Dr. Adryan Faustin Calcium Palmitate [facility] Comment on above: Performed By: #### C ALCULI #### [facility] [address] [address] [address] Adryan Faustin Calcium Phosphate Normal [facility] Comment on above: Performed By: #### C ALCULI #### [facility] [address] [address] [address] Adryan Faustin Calcium Stearate Normal [facility] Comment on above: Performed By: #### C ALCULI #### [facility] [address] [address] [address] Adryan Faustin Carbonate Apatite Normal [facility] Comment on above: Performed By: #### C ALCULI #### [facility] [address] [address] [address] Adryan Faustin Cellular Material Normal [facility] Comment on above: Performed By: #### C ALCULI #### [facility] [address] [place] [address] Dr. Adryan Faustin Cholesterol [facility] Comment on above: Performed By: #### C ALCULI #### [facility] [address] [address] [address] Adryan Faustin Color (U) Brown Normal [facility] Comment on above: Performed By: #### C ALCULI #### [facility] [address] [address] [address] Adryan Faustin Comment [facility] Comment on above: Performed By: #### C ALCULI #### [facility] [address] [address] [address] Adryan Faustin Comment: Comment Normal [facility] Comment on above: Result Comment: Phys ician questions regarding Calculi Analysis contact [facility] at: [phone]. Performed By: #### C ALCULI #### [facility] [address] [address] [address] Adryan Faustin Composition Comment [facility] Comment on above: Result Comment: Perc entage (Represents the % composition) Performed By: #### C ALCULI #### [facility] [address] [address] [address] Adryan Faustin Cystine Normal [facility] Comment on above: Performed By: #### C ALCULI #### [facility] [address] [address] [address] Adryan Faustin Disclaimer: Comment Normal [facility] Comment on above: Result Comment: This test was developed and its performance characteristics determined by [facility]. It has not been cleared or approved by the Food and Drug Administration. Performed By: #### C ALCULI #### [facility] [address] [address] [address] Adryan Faustin Dried Blood Normal [facility] Comment on above: Performed By: #### C ALCULI #### [facility] [address] [address] [address] Adryan Faustin Drug or Metabolite Normal [facility] Comment on above: Performed By: #### C ALCULI #### [facility] [address] [place] [address] Dr. Adryan Faustin Hydroxyapatite Normal [facility] Comment on above: Performed By: #### C ALCULI #### [facility] [address] [place] [address] Dr. Adryan Faustin Mg NH4 PO4 (Struvite) [facility] Comment on above: Performed By: #### C ALCULI #### [facility] [address] [address] [address] Adryan Faustin MgHPO4 (Newberyite) Normal [facility] Comment on above: Performed By: #### C ALCULI #### [facility] [address] [address] [address] Adryan Faustin Other component(s) Normal [facility] Comment on above: Performed By: #### C ALCULI #### [facility] [address] [address] [address] Adryan Faustin PDF . Normal [facility] Comment on above: Performed By: #### C ALCULI #### [facility] [address] [place] [address] Dr. Adryan Faustin Photo Comment Normal [facility] Comment on above: Result Comment: Phot ograph will follow under a separate cover Performed By: #### C ALCULI #### [facility] [address] [address] [address] Adryan Faustin Please note: Comment Normal [facility] Comment on above: Result Comment: Calc gustavo report will follow via computer, mail or supervisor [employer] delivery. Performed By: #### C ALCULI #### [facility] [address] [address] [address] Adryan Faustin Size 2x2 [facility] Comment on above: Result Comment: Sing le piece received. Performed By: #### C ALCULI #### [facility] [address] [address] [address] Adryan Faustin Sodium Acid Urate [facility] Comment on above: Performed By: #### C ALCULI #### [facility] [address] [address] [address] Adryan Faustin Source Comment [facility] Comment on above: Result Comment: Righ t Ureter Performed By: #### C ALCULI #### [facility] [address] [address] [address] Adryan Faustin [employer] [facility] Comment on above: Performed By: #### C ALCULI #### [facility] [address] [address] [address] Adryan Faustin Uric Acid [facility] Comment on above: Performed By: #### C ALCULI #### [facility] [address] [address] [address] Adryan Faustin Uric Acid Dihydrate Normal [facility] Comment on above: Performed By: #### C ALCULI #### [facility] [address] [address] [address] Adryan Faustin Weight 13 mg [facility] Comment on above: Performed By: #### C ALCULI #### [facility] [address] [address] [address] Adryan Faustin Xanthine [facility] Comment on above: Performed By: #### C ALCULI #### [facility] [address] [address] [address] Adryan Faustin PROF 14(COMP METB)on 022 Albumin [Mass/Vol] 3.4 g/dL Normal 3.4-5.0 [facility] Comment on above: Performed By: #### C MP #### [facility] [facility] [address] [place] [address] Dr. Adryan Faustin Albumin/Globulin [Mass ratio] 1.0 {ratio} Normal [facility] Comment on above: Performed By: #### C MP #### [facility] [address] [place] [address] Dr. Adryan Faustin ALP [Catalytic activity/Vol] 54 U/L Normal 46-116 [facility] Comment on above: Performed By: #### C MP #### [facility] [address] [place] [address] Dr. Adryan Faustin ALT [Catalytic activity/Vol] 13 U/L Critically low 14-59 [facility] Comment on above: Performed By: #### C MP #### [facility] [address] [place] [address] Dr. Adryan Faustin Anion gap [Moles/Vol] 12.5 mmol/L Normal [facility] Comment on above: Performed By: #### C MP #### [facility] [address] [place] [address] Dr. Adryan Faustin AST [Catalytic activity/Vol] 18 U/L Normal 15-37 [facility] Comment on above: Performed By: #### C MP #### [facility] [address] [place] [address] Dr. Adryan Faustin Bilirubin [Mass/Vol] 0.4 mg/dL Normal 0.2-1.0 [facility] Comment on above: Performed By: #### C MP #### [facility] [address] [place] [address] Dr. Adryan Faustin Calcium [Mass/Vol] 9.0 mg/dL Normal 8.5-10.1 [facility] Comment on above: Performed By: #### C MP #### [facility] [address] [place] [address] Dr. Adryan Faustin Chloride [Moles/Vol] 106 mmol/L Normal 98-107 [facility] Comment on above: Performed By: #### C MP #### [facility] [address] [address] [address] Adryan Faustin CO2 [Moles/Vol] 25.8 mmol/L Normal 21.0-32.0 [facility] Comment on above: Performed By: #### C MP #### [facility] [address] [address] [address] Adryan Faustin Creatinine [Mass/Vol] 1.43 mg/dL Critically high 0.55-1.02 [facility] Comment on above: Performed By: #### C MP #### [facility] [address] [address] [address] Adryan Faustin EGFR-AF [place] 46 mL/min/1.73m2 Critically low >=60 [facility] Comment on above: Performed By: #### C MP #### [facility] [address] [address] [address] Adryan Faustin EGFR-NON AF [place] 38 mL/min/1.73m2 Critically low >=60 [facility] Comment on above: Performed By: #### C MP #### [facility] [address] [address] [address] Adryan Faustin Globulin (S) [Mass/Vol] 3.3 g/dL Normal [facility] Comment on above: Performed By: #### C MP #### [facility] [address] [address] [address] Adryan Faustin Glucose [Mass/Vol] 83 mg/dL Normal 74-106 [facility] Comment on above: Performed By: #### C MP #### [facility] [address] [address] [address] Adryan Faustin Potassium [Moles/Vol] 4.3 mmol/L Normal 3.5-5.1 [facility] Comment on above: Performed By: #### C MP #### [facility] [address] [address] [address] Adryan Faustin Protein [Mass/Vol] 6.7 g/dL Normal 6.4-8.2 [facility] Comment on above: Performed By: #### C MP #### [facility] [address] [address] [address] Adryan Faustin Sodium [Moles/Vol] 140 mmol/L Normal 136-145 [facility] Comment on above: Performed By: #### C MP #### [facility] [address] [place], [place] [address] Dr. Adryan Faustin Urea nitrogen [Mass/Vol] 12.0 mg/dL Normal 7.0-18.0 [facility] Comment on above: Performed By: #### C MP #### [facility] [address] [address] [address] Adryan Faustin Urea nitrogen/Creatinine [Mass ratio] 8.4 mg/mg Normal [facility] Comment on above: Performed By: #### C MP #### [facility] [id number] Adryan Faustin XR KUB 1 VIEWon 03-23-2022 XR KUB 1 VIEW EXAMINATION: XR KUB 1 VIEW HISTORY: Kidney stone COMPARISON: CT exam 03/19/2022 FINDINGS: KIDNEY/URETER - RIGHT: 1.2 cm nephrolith KIDNEY/URETER - LEFT: Left ureteral stent with 1 cm proximal ureterolith PELVIS: No visible ureteral calcifications. Any visible calcifications favor phleboliths. BOWEL: No abnormal dilation or deviation. BONES: No acute abnormality. OTHER: Negative. No abnormal gaseous collections. IMPRESSION: Left ureteral stent and proximal ureterolith Electronically authenticated by: BRADEN LANGSTON Date: 2022-03-23 07:14 Normal [facility] Consultation Noteon 03-20-20 22 Consultation Note [id number] Normal [facility] PROF CHEM 8 (BAS METB)on Anion gap [Moles/Vol] 11.1 mmol/L Normal [facility] Comment on above: Performed By: #### B MP #### [facility] [address] [address] [address] Adryan Faustin Calcium [Mass/Vol] 8.3 mg/dL Critically low 8.5-10.1 [facility] Comment on above: Performed By: #### B MP #### [facility] [address] [address] [address] Adryan Faustin Chloride [Moles/Vol] 112 mmol/L Critically high 98-107 [facility] Comment on above: Performed By: #### B MP #### [facility] [address] [address] [address] Adryan Faustin CO2 [Moles/Vol] 22.8 mmol/L Normal 21.0-32.0 [facility] Comment on above: Performed By: #### B MP #### [facility] [address] [address] [address] Adryan Faustin Creatinine [Mass/Vol] 1.41 mg/dL Critically high 0.55-1.02 [facility] Comment on above: Performed By: #### B MP #### [facility] [address] [address] [address] Adryan Faustin EGFR-AF [place] 47 mL/min/1.73m2 Critically low >=60 [facility] Comment on above: Performed By: #### B MP #### [facility] [address] [address] [address] Adryan Faustin EGFR-NON AF [place] 38 mL/min/1.73m2 Critically low >=60 [facility] Comment on above: Performed By: #### B MP #### [facility] [address] [address] [address] Adryan Faustin Glucose [Mass/Vol] 82 mg/dL Normal 74-106 [facility] Comment on above: Performed By: #### B MP #### [facility] [address] [address] [address] Adryan Faustin Potassium [Moles/Vol] 4.9 mmol/L Normal 3.5-5.1 [facility] Comment on above: Performed By: #### B MP #### [facility] [address] [address] [address] Adryan Faustin Sodium [Moles/Vol] 141 mmol/L Normal 136-145 [facility] Comment on above: Performed By: #### B MP #### [facility] [address] [address] [address] Adryan Faustin Urea nitrogen [Mass/Vol] 25.0 mg/dL Critically high 7.0-18.0 [facility] Comment on above: Performed By: #### B MP #### [facility] [address] [address] [address] Adryan Faustin Urea nitrogen/Creatinine [Mass ratio] 17.7 mg/mg Normal [facility] Comment on above: Performed By: #### B MP #### [facility] [address] [place] [address] Dr. Adryan Faustin CBC AUTO DIFFon 03-19-2022 BASO # 0.1 103/ul Normal 0.0-0.1 [facility] Comment on above: Performed By: #### C BC #### [facility] [address] [place] [address] Dr. Adryan Faustin Basophils/100 WBC (Bld) 0.9 % Normal 0.2-2.0 [facility] Comment on above: Performed By: #### C BC #### [facility] [address] [place] [address] Dr. Adryan Faustin EO # 0.1 103/ul Normal 0.0-0.7 [facility] Comment on above: Performed By: #### C BC #### [facility] [address] [place] [address] Dr. Adryan Faustin Eosinophils/100 WBC (Bld) 2.3 % Normal 0.9-7.0 [facility] Comment on above: Performed By: #### C BC #### [facility] [address] [place] [address] Dr. Adryan Faustin Erythrocyte distribution width (RBC) [Ratio] 15.9 % Critically high 11.0-15.0 [facility] Comment on above: Performed By: #### C BC #### [facility] [address] [place] [address] Dr. Adryan Faustin Hematocrit (Bld) [Volume fraction] 36.9 % Normal 36.0-48.0 [facility] Comment on above: Performed By: #### C BC #### [facility] [address] [address] [address] Adryan Faustin Hemoglobin (Bld) [Mass/Vol] 11.3 g/dL Critically low 12.0-16.0 [facility] Comment on above: Performed By: #### C BC #### [facility] [address] [place] [address] Dr. Adryan Faustin IG # 0.01 10e3/ul Normal 0.00-0.03 [facility] Comment on above: Performed By: #### C BC #### [facility] [address] [place] [address] Dr. Adryan Faustin IG % 0.2 % Normal 0.0-0.5 [facility] Comment on above: Performed By: #### C BC #### [facility] [address] [place] [address] Dr. Adryan Faustin LYMPH # 1.7 103/ul Normal 1.2-3.8 [facility] Comment on above: Performed By: #### C BC #### [facility] [address] [place] [address] Dr. Adryan Faustin Lymphocytes/100 WBC (Bld) 29.6 % Normal 20.5-60.0 [facility] Comment on above: Performed By: #### C BC #### [facility] [address] [place] [address] Dr. Adryan Faustin MANUAL DIFF REQ NO Normal [facility] Comment on above: Performed By: #### C BC #### [facility] [address] [place] [address] Dr. Adryan Faustin MCH (RBC) [Entitic mass] 24.1 pg Critically low 26.7-34.0 [facility] Comment on above: Performed By: #### C BC #### [facility] [address] [place] [address] Dr. Adryan Faustin MCHC (RBC) [Mass/Vol] 30.6 g/dL Normal 29.9-35.2 [facility] Comment on above: Performed By: #### C BC #### [facility] [address] [address] [address] Adryan Faustin MCV (RBC) [Entitic vol] 78.8 fL Critically low 81.0-99.0 [facility] Comment on above: Performed By: #### C BC #### [facility] [address] [address] [address] Adryan Faustin MONO # 0.4 103/ul Normal 0.3-0.8 [facility] Comment on above: Performed By: #### C BC #### [facility] [address] [address] [address] Adryan Faustin Monocytes/100 WBC (Bld) 7.5 % Normal 1.7-12.0 [facility] Comment on above: Performed By: #### C BC #### [facility] [address] [place] [address] Dr. Adryan Faustin NEUT # 3.3 103/ul Normal 1.4-6.5 [facility] Comment on above: Performed By: #### C BC #### [facility] [address] [place] [address] Dr. Adryan Faustin Neutrophils/100 WBC (Bld) 59.5 % Normal 43.0-75.0 [facility] Comment on above: Performed By: #### C BC #### [facility] [address] [place] [address] Dr. Adryan Faustin Platelet mean volume (Bld) [Entitic vol] 8.5 fL Critically low 9.5-13.5 [facility] Comment on above: Performed By: #### C BC #### [facility] [address] [place] [address] Dr. Adryan Faustin PLT 320 103/ul Normal 150-450 [facility] Comment on above: Performed By: #### C BC #### [facility] [address] [place] [address] Dr. Adryna Faustin RBC 4.68 106/ul Normal 4.20-5.40 [facility] Comment on above: Performed By: #### C BC #### [facility] [address] [place], [place] [address] Dr. Adryan Faustin WBC 5.6 103/ul Normal 4.0-11.0 [facility] Comment on above: Performed By: #### C #### [facility] [address] [place], [place] [address] ABD/PELVIS WO CONon 03-19 CT ABD/PELVIS WO CON EXAMINATION: CT ABD/PELVIS WO CON HISTORY: UNSPECIFIED ABDOMINAL PAIN ; acute right flank pain, nausea and vomiting COMPARISON: CT abdomen and pelvis 08/27/2015 TECHNIQUE: Axial, Coronal, and Sagittal images were obtained without and/or with IV contrast as indicated by examination type. Dose reduction techniques were achieved by using automated exposure control and/or adjustment of mA and/or kV according to patient size and/or use of iterative reconstruction technique. FINDINGS: LUNG BASES: No visible pulmonary or pleural disease. LIVER: No enlargement, atrophy, suspicious density, or significant focal lesion. BILIARY: No dilatation or calcification. PANCREAS: No lesion, fluid collection, or abnormal duct dilatation. SPLEEN: No enlargement or focal lesion. ADRENALS: No mass or enlargement. KIDNEYS: Nonobstructing 13 x 11 x 9 mm stone within right renal pelvis. Mild right hydronephrosis and hydroureter secondary to a partially obstructing 4 mm stone at the ureterovesical junction. Marked atrophy and cortical thinning of left kidney with marked dilation of the renal calyces and renal pelvis secondary to an obstructing 12 x 10 x 8 mm stone within proximal ureter. Within distal left ureter is a 7 mm stone is no dilation of the ureter, likely secondary to no passage of urine past the proximal obstructing stone. BOWEL/MESENTERY: Gastric bypass surgery. No visible mass, obstruction, or bowel wall thickening. Normal appendix. AORTA/VASCULAR: No aneurysm or dissection. RETROPERITONEUM: No mass or adenopathy. LYMPH NODES: No adenopathy. URINARY BLADDER: Nondistended. No visible focal wall thickening, lesion, or calculus. PELVIC ORGANS: Hysterectomy. ABDOMINAL WALL: No mass or hernia. BONES: No bony lesion or fracture. OTHER: Negative. IMPRESSION: 1. Right nephrolithiasis and partially obstructing distal right 4 mm ureteral stone. 2. Marked left renal atrophy and likely chronic hydronephrosis secondary to a large stone within proximal ureter. There is an additional large stone within the distal left ureter. 3. Gastric bypass surgery. No acute findings. Electronically authenticated by: NATACHA WILD Date: 2022-03-19 09:58 Normal [facility] CULTURE URINEon 03-19-2022 CULTURE URINE Culture Observations : NO GROWTH Normal [facility] Comment on above: Performed By: #### C IVA #### [facility] [address] [place] [address] Dr. Adryan Faustin Covid-19 PCR ([facility])on 02-22 SARS-CoV-2 (COVID-19) RNA GOOD+probe Ql (Unsp spec) Not detected Normal NOT DETECTED [facility] Comment on above: Result Comment: When diagnostic testing is negative, the possibility of a false negative should be considered in the context of a patient's recent exposures and the presence of clinical signs and symptoms consistent with SARS-CoV-2. This test is not yet approved or cleared by the [place] FDA. When there are no FDA-approved or cleared tests available, and other criteria are met, FDA can make tests available under an emergency access mechanism called an Emergency Use Authorization (EUA). The EUA for this test is supported by the [place] [facility] [employer] and Human Service's declaration that circumstances exist to justify the emergency use of in vitro diagnostics for the detection and/or diagnosis of the virus that causes COVID-19. This EUA will remain in effect for the duration of the COVID-19 declaration justifying emergency of IVDs, unless it is terminated or revoked by the FDA (after which the test may no longer be used). Performed By: #### Uzma ENRIQUE #### [facility] [address] [place] [address] Dr. Adryan Faustin ER URINE PROFILEon Bilirubin Ql (U) MODERATE Abnormal NEGATIVE [facility] Comment on above: Performed By: #### VERONICA MARTIN #### [facility] [address] [place] [address] Dr. Adryan Faustin Clarity (U) CLEAR Normal CLEAR [facility] Comment on above: Performed By: #### VERONICA MARTIN #### [facility] [address] [place], [place] [id number] Dr. Adryan Faustin Color (U) DK. YELLOW Normal YELLOW [facility] Comment on above: Performed By: #### Ghada HASSAN UMICRO #### [facility] [address] [place] [address] Dr. Adryan SENA A micrscopic examination will be performed if indicated. Normal [facility] Comment on above: Performed By: #### Ghada HASSAN UMICRO #### [facility] [address] [place] [address] Dr. Adryan Faustin Glucose Ql (U) Negative Normal NEGATIVE [facility] Comment on above: Performed By: #### Ghada HASSAN UMICRO #### [facility] [address] [place] [address] Dr. Adryan Faustin Hemoglobin Ql (U) LARGE Abnormal NEGATIVE [facility] Comment on above: Performed By: #### Ghada HASSAN UMICRO #### [facility] [address] [place] [address] Dr. Adryan Faustin Ketones Ql (U) TRACE Abnormal NEGATIVE [facility] Comment on above: Performed By: #### Ghada HASSAN UMICRO #### [facility] [address] [place] [address] Dr. Adryan Faustin LEUKOCYTES TRACE Abnormal NEGATIVE [facility] Comment on above: Performed By: #### Ghaad HASSAN UMICRO #### [facility] [address] [place] [address] Dr. Adryan Faustin Nitrite Ql (U) Negative Normal NEGATIVE [facility] Comment on above: Performed By: #### Ghada HASSAN UMICRO #### [facility] [address] [place] [address] Dr. Adryan Faustin pH (U) 5.5 [pH] Normal 5-9 [facility] Comment on above: Performed By: #### Ghada HASSAN UMICRO #### [facility] [address] [place] [address] Dr. Adryan Faustin Protein (U) [Mass/Vol] 100 mg/dL Abnormal NEGAT CRISS/ TRACE [facility] Comment on above: Performed By: #### CHRISTINA MARTINRO #### [facility] [address] [place] [address] Dr. Adryan Faustin SPEC GRAVITY >=1.030 Abnormal 1.005-<=1.02 5 [facility] Comment on above: Performed By: #### CHRISTINA MARTINRO #### [facility] [address] [place] [address] Dr. Adryan Faustin UR MICRO IND INDICATED Normal [facility] Comment on above: Performed By: #### E CHRISTINA HASSANRO #### [facility] [address] [place] [address] Dr. Adryan Faustin Urobilinogen Qn (U) 1.0 {Coby'U}/dL Normal 0.2 - 1. 0 [facility] Comment on above: Performed By: #### CHRISTINA MARTINRO #### [facility] [address] [place] [address] Dr. Adryan Faustin PROF 14(COMP METB)on 022 Albumin [Mass/Vol] 3.7 g/dL Normal 3.4-5.0 [facility] Comment on above: Performed By: #### C MP #### [facility] [address] [place] [address] Dr. Adryan Faustin Albumin/Globulin [Mass ratio] 1.0 {ratio} Normal [facility] Comment on above: Performed By: #### C MP #### [facility] [address] [place] [address] Dr. Adryan Faustin ALP [Catalytic activity/Vol] 60 U/L Normal 46-116 [facility] Comment on above: Performed By: #### C MP #### [facility] [address] [place] [address] Dr. Adryan Faustin ALT [Catalytic activity/Vol] 17 U/L Normal 14-59 [facility] Comment on above: Performed By: #### C MP #### [facility] [address] [place] [address] Dr. Adryan Faustin Anion gap [Moles/Vol] 14.6 mmol/L Normal [facility] Comment on above: Performed By: #### C MP #### [facility] [address] [address] [address] Adryan Faustin AST [Catalytic activity/Vol] 18 U/L Normal 15-37 [facility] Comment on above: Performed By: #### C MP #### [facility] [address] [address] [address] Adryan Faustin Bilirubin [Mass/Vol] 0.5 mg/dL Normal 0.2-1.0 [facility] Comment on above: Performed By: #### C MP #### [facility] [address] [address] [address] Adryan Faustin Calcium [Mass/Vol] 9.2 mg/dL Normal 8.5-10.1 [facility] Comment on above: Performed By: #### C MP #### [facility] [address] [address] [address] Adryan Faustin Chloride [Moles/Vol] 105 mmol/L Normal 98-107 [facility] Comment on above: Performed By: #### C MP #### [facility] [address] [address] [address] Adryan Faustin CO2 [Moles/Vol] 24.1 mmol/L Normal 21.0-32.0 [facility] Comment on above: Performed By: #### C MP #### [facility] [address] [address] [address] Adryan Faustin Creatinine [Mass/Vol] 1.97 mg/dL Critically high 0.55-1.02 [facility] Comment on above: Performed By: #### C MP #### [facility] [address] [address] [address] Adryan Faustin EGFR-AF [place] 32 mL/min/1.73m2 Critically low >=60 [facility] Comment on above: Performed By: #### C MP #### [facility] [address] [address] [address] Adryan Faustin EGFR-NON AF [place] 26 mL/min/1.73m2 Critically low >=60 [facility] Comment on above: Performed By: #### C MP #### [facility] [address] [address] [address] Adryan Faustin Globulin (S) [Mass/Vol] 3.8 g/dL Normal [facility] Comment on above: Performed By: #### C MP #### [facility] [address] [address] [address] Adryan Faustin Glucose [Mass/Vol] 91 mg/dL Normal 74-106 [facility] Comment on above: Performed By: #### C MP #### [facility] [address] [address] [address] Adryan Faustin Potassium [Moles/Vol] 4.7 mmol/L Normal 3.5-5.1 [facility] Comment on above: Performed By: #### C MP #### [facility] [address] [address] [address] Adryan Faustin Protein [Mass/Vol] 7.5 g/dL Normal 6.4-8.2 [facility] Comment on above: Performed By: #### C MP #### [facility] [address] [address] [address] Adryan Faustin Sodium [Moles/Vol] 139 mmol/L Normal 136-145 [facility] Comment on above: Performed By: #### C MP #### [facility] [address] [address] [address] Adryan Faustin Urea nitrogen [Mass/Vol] 32.0 mg/dL Critically high 7.0-18.0 [facility] Comment on above: Performed By: #### C MP #### [facility] [address] [address] [address] Adryan Faustin Urea nitrogen/Creatinine [Mass ratio] 16.2 mg/mg Normal [facility] Comment on above: Performed By: #### C MP #### [facility] [address] [address] [address] Adryan Faustin URINE MICROSCOPIC ONLYon BACTERIA SMALL Abnormal NONE SEEN [facility] Comment on above: Performed By: #### E VERONICA HASSAN #### [facility] [address] [place] [address] Dr. Adryan Faustin Bacteria identified Cx Nom (U) INDICATED Normal [facility] Comment on above: Performed By: #### Ghada HASSAN UMICRO #### [facility] [address] [place] [address] Dr. Adryan Faustin CAST NONE SEEN Normal NONE SEEN [facility] Comment on above: Performed By: #### Ghada HASSAN UMICRO #### [facility] [address] [place] [address] Dr. Adryan Faustin Crystals LM Nom (Urine sed) NONE SEEN Normal NONE SEEN [facility] Comment on above: Performed By: #### Ghada HASSAN UMICRO #### [facility] [address] [place] [address] Dr. Adryan Faustin Epithelial cells LM Ql (Urine sed) FEW Abnormal NONE SEEN /RARE [facility] Comment on above: Performed By: #### Ghada HASSAN UMICRO #### [facility] [address] [place] [address] Dr. Adryan Faustin MUCOUS NONE SEEN Normal NONE SEEN [facility] Comment on above: Performed By: #### Ghada HASSAN UMICRO #### [facility] [address] [place] [address] Dr. Adryan Faustin RBC 75-100 Abnormal 0-2 [facility] Comment on above: Performed By: #### Ghada HASSAN UMICRO #### [facility] [address] [place] [address] Dr. Adryan Faustin WBC 5-10 Abnormal NONE SEEN [facility] Comment on above: Performed By: #### Ghada HASSAN UMICRO #### [facility] [address] [place] [address] Dr. Adryan Faustin MICROALBUMIN/ CREATININE RAT IOon 02-04-2022 Albumin, Urine 21.0 ug/mL Normal Not Estab. The [facility] Comment on above: Performed By: #### M ALBCRL #### [facility] [address] [place] [address] Dr. Adryan Faustin Albumin/ Creatinine Ratio 18 mg/g creat Normal 0-29 [facility] Comment on above: Result Comment: Norm al: 0 - 29 Moderately increased: 30 - 300 Severely increased: >300 Performed By: #### M ALBCRL #### [facility] [address] [address] [address] Adryan Faustin Creatinine, Urine 116.4 mg/dL Normal Not Estab. The [facility] Comment on above: Performed By: #### M ALBCRL #### [facility] [address] [address] [address] Adryan Faustin GLYCOHEMOGLOBIN A1Con 2021 ADA RECOMMENDATION SEE BELOW Normal [facility] Comment on above: Result Comment: ADA RECOMMENDED LIMIT 4.0 - 6.0 ADA THERAPEUTIC TARGET < 7.0 ACTION SUGGESTED > 7.0 Performed By: #### C ALCULI #### [facility] [address] [place] [address] Dr. Adryan Faustin Glucose [Mass/Vol] 128 mg/dL Normal [facility] Comment on above: Performed By: #### C ALCULI #### [facility] [address] [place] [address] Dr. Adryan Faustin HbA1c (Bld) [Mass fraction] 6.1 % Normal 4.5-6.2 [facility] Comment on above: Performed By: #### C ALCULI #### [facility] [address] [place] [address] Dr. Adryan Faustin LIPID PROFILEon 02-03-2022 CHOL-HDL RATIO NORM SEE BELOW Normal [facility] Comment on above: Result Comment: 3.3 - 4.4 LOW RISK 4.4 - 7.1 AVERAGE RISK 7.1 - 11.0 MODERATE RISK >11.0 HIGH RISK Performed By: #### L IPID, CMP #### [facility] [address] [place] [address] Dr. Adryan Faustin Cholesterol [Mass/Vol] 175 mg/dL Normal <=200 [facility] Comment on above: Performed By: #### L IPID, CMP #### [facility] [address] [address] [address] Adryan Faustin Cholesterol in HDL [Mass/Vol] 51 mg/dL Normal 40-60 [facility] Comment on above: Performed By: #### L IPID, CMP #### [facility] [address] [address] [address] Adryan Faustin Cholesterol in LDL [Mass/Vol] 113.6 mg/dL Normal [facility] Comment on above: Performed By: #### L IPID, CMP #### [facility] [address] [address] [address] Adryan Faustin Cholesterol.total/Chol esterol in HDL [Mass ratio] 3.4 {ratio} Normal [facility] Comment on above: Performed By: #### L IPID, CMP #### [facility] [address] [place] [address] Dr. Adryan Faustin HDL NORMAL > or = 60 mg/dl - LO W CARDIOVASCULAR RISK <40 mg/dl - HIGH CARDIOVASCULAR RISK Normal [facility] Comment on above: Performed By: #### L IPID, CMP #### [facility] [address] [place] [address] Dr. Adryan Faustin LDL CALC NORMAL SEE BELOW Normal [facility] Comment on above: Result Comment: <100 mg/dl OPTIMAL 100 - 129 mg/dl NEAR OR ABOVE OPTIMAL 130 - 159 mg/dl BORDERLINE HIGH 160 - 189 mg/dl HIGH >190 mg/dl VERY HIGH Performed By: #### L IPID, CMP #### [facility] [address] [address] [address] Adryan Faustin Triglyceride [Mass/Vol] 52 mg/dL Normal <=150 [facility] Comment on above: Performed By: #### L IPID, CMP #### [facility] [address] [address] [address] Adryan Faustin VLDL CALC 10.4 mg/dL Normal [facility] Comment on above: Performed By: #### L IPID, CMP #### [facility] [address] [place] [address] Dr. Adryan Faustin PROF 14(COMP METB)on 022 Albumin [Mass/Vol] 3.2 g/dL Critically low 3.4-5.0 [facility] Comment on above: Performed By: #### L IPID, CMP #### [facility] [address] [place] [address] Dr. Adryan Faustin Albumin/Globulin [Mass ratio] 0.9 {ratio} Normal [facility] Comment on above: Performed By: #### L IPID, CMP #### [facility] [address] [address] [address] Adryan Faustin ALP [Catalytic activity/Vol] 76 U/L Normal 46-116 [facility] Comment on above: Performed By: #### L IPID, CMP #### [facility] [address] [place] [address] Dr. Adryan Faustin ALT [Catalytic activity/Vol] 10 U/L Critically low 14-59 [facility] Comment on above: Performed By: #### L IPID, CMP #### [facility] [address] [place] [address] Dr. Adryan Faustin Anion gap [Moles/Vol] 12.2 mmol/L Normal [facility] Comment on above: Performed By: #### L IPID, CMP #### [facility] [address] [place] [address] Dr. Adryan Faustin AST [Catalytic activity/Vol] 15 U/L Normal 15-37 [facility] Comment on above: Performed By: #### L IPID, CMP #### [facility] [address] [place] [address] Dr. Adryan Faustin Bilirubin [Mass/Vol] 0.4 mg/dL Normal 0.2-1.0 [facility] Comment on above: Performed By: #### L IPID, CMP #### [facility] [address] [place] [address] Dr. Adryan Faustin Calcium [Mass/Vol] 9.0 mg/dL Normal 8.5-10.1 [facility] Comment on above: Performed By: #### L IPID, CMP #### [facility] [address] [place] [address] Dr. Adryan Faustin Chloride [Moles/Vol] 106 mmol/L Normal 98-107 [facility] Comment on above: Performed By: #### L IPID, CMP #### [facility] [address] [place] [address] Dr. Adryan Faustin CO2 [Moles/Vol] 27.6 mmol/L Normal 21.0-32.0 [facility] Comment on above: Performed By: #### L IPID, CMP #### [facility] [address] [place] [address] Dr. Adryan Faustin Creatinine [Mass/Vol] 1.17 mg/dL Critically high 0.55-1.02 [facility] Comment on above: Performed By: #### L IPID, CMP #### [facility] [address] [place] [address] Dr. Adryan Faustin EGFR-AF [place] 58 mL/min/1.73m2 Critically low >=60 [facility] Comment on above: Performed By: #### L IPID, CMP #### [facility] [address] [place] [address] Dr. Adryan Faustin EGFR-NON AF [place] 48 mL/min/1.73m2 Critically low >=60 [facility] Comment on above: Performed By: #### L IPID, CMP #### [facility] [address] [place] [address] Dr. Adryan Faustin Globulin (S) [Mass/Vol] 3.7 g/dL Normal [facility] Comment on above: Performed By: #### L IPID, CMP #### [facility] [address] [place] [address] Dr. Adryan Faustin Glucose [Mass/Vol] 86 mg/dL Normal 74-106 [facility] Comment on above: Performed By: #### L IPID, CMP #### [facility] [address] [place] [address] Dr. Adryan Faustin Potassium [Moles/Vol] 4.8 mmol/L Normal 3.5-5.1 [facility] Comment on above: Performed By: #### L IPID, CMP #### [facility] [address] [place], [place] [id number] Dr. Adryan Faustin Protein [Mass/Vol] 6.9 g/dL Normal 6.4-8.2 [facility] Comment on above: Performed By: #### L IPID, CMP #### [facility] [address] [place] [address] Dr. Adryan Faustin Sodium [Moles/Vol] 141 mmol/L Normal 136-145 [facility] Comment on above: Performed By: #### L IPID, CMP #### [facility] [address] [place] [address] Dr. Adryan Faustin Urea nitrogen [Mass/Vol] 13.0 mg/dL Normal 7.0-18.0 [facility] Comment on above: Performed By: #### L IPID, CMP #### [facility] [address] [place] [address] Dr. Adryan Faustin Urea nitrogen/Creatinine [Mass ratio] 11.1 mg/mg Normal [facility] Comment on above: Performed By: #### L IPID, CMP #### [facility] [address] [place] [address] Dr. Adryan Faustin US JUMANA DOP LEG RTon 02-03-20 US JUMANA DOP LEG RT EXAMINATION: US JUMANA DOP LEG RT HISTORY: Pain in lower limb ; right thigh and leg pain with erythema COMPARISON: No relevant comparison available. FINDINGS: REGION: Right lower extremity THROMBI: None within deep system. COMPRESSIBILITY: Normal compressibility. FLOW: Normal waveform and antegrade flow between 5 and 20 cm/s. OTHER: Thrombus within great saphenous vein of the mid and distal thigh and multiple varicosities. IMPRESSION: 1. No deep vein thrombus within the right lower extremity. 2. Superficial thrombophlebitis. Electronically authenticated by: NATACHA WILD Date: 2022-02-02 11:46 Normal [facility] [id number] 07-25-2020 SARS-CoV-2 Not Detected Normal [facility] Comment on above: Result Comment: The specimen is NEGATIVE for SARS-CoV-2, the novel coronavirus associated with COVID-19. A negative result does not rule out COVID-19. [employer] SARS-CoV-2 for use on the [employer] 6800/88[employer] is a real-time RT-PCR test intended for the qualitative detection of nucleic acids from SARS-CoV-2 in clinician-collected nasal, nasopharyngeal, and oropharyngeal swab specimens from individuals who meet COVID-19 clinical and/or epidemiological criteria. [employer] SARS-CoV-2 is for use only under Emergency Use Authorization (EUA) in laboratories certified under Clinical Laboratory Improvement Amendments of 1988 (CLIA), 42 U.S.C. ?263a, that meet requirements to perform high or moderate complexity tests. An individual without symptoms of COVID-19 and who is not shedding SARS-CoV-2 virus would expect to have a negative (not detected) result in this assay. Fact sheet for Healthcare Providers: https://www.fda.gov/media/931859/download Fact sheet for Patients: https://www.fda.gov/media/146073/download METHODOLOGY: RT-PCR Performed By: #### A COV #### [facility] [address] [place], [place] [id number] Podiatrist: Hugo Welch MD SARS-CoV-2 [facility] Comment on above: Performed By: #### A COV #### [facility] [address] [place], [place] [id number] Podiatrist: Hugo Welch MD [id number] 07-24-2020 SARS-CoV-2 Source .NASOPHARYNGEAL SWAB [facility] Comment on above: Performed By: #### A COV #### [facility] [address] [place], [place] [id number] Podiatrist: Hugo Welch MD [id number] 07-18-2020 SARS-CoV-2 Not Detected [facility] Comment on above: Result Comment: The specimen is NEGATIVE for SARS-CoV-2, the novel coronavirus associated with COVID-19. A negative result does not rule out COVID-19. [employer] SARS-CoV-2 for use on the [employer]00/88[employer] is a real-time RT-PCR test intended for the qualitative detection of nucleic acids from SARS-CoV-2 in clinician-collected nasal, nasopharyngeal, and oropharyngeal swab specimens from individuals who meet COVID-19 clinical and/or epidemiological criteria. [employer] SARS-CoV-2 is for use only under Emergency Use Authorization (EUA) in laboratories certified under Clinical Laboratory Improvement Amendments of 1988 (CLIA), 42 U.S.C. ?263a, that meet requirements to perform high or moderate complexity tests. An individual without symptoms of COVID-19 and who is not shedding SARS-CoV-2 virus would expect to have a negative (not detected) result in this assay. Fact sheet for Healthcare Providers: https://www.fda.gov/media/531750/download Fact sheet for Patients: https://www.fda.gov/media/264148/download METHODOLOGY: RT-PCR Performed By: #### C OVID #### [address] [id number] Podiatrist: Ankush Moser MD SARS-CoV-2 [facility] Comment on above: Performed By: #### C OVID #### [address] [id number] Podiatrist: Ankush Moser MD [id number] 07-17-2020 SARS-CoV-2 Source .NASOPHARYNGEAL SWAB [facility] Comment on above: Performed By: #### C OVID #### [address] [id number] Podiatrist: Ankush Moser MD [id number] 07-01-2020 SARS-CoV-2 Not Detected [facility] Comment on above: Result Comment: The specimen is NEGATIVE for SARS-CoV-2, the novel coronavirus associated with COVID-19. A negative result does not rule out COVID-19. [employer]oro SARS-CoV-2 for use on the [employer] is a real-time RT-PCR test intended for the qualitative detection of nucleic acids from SARS-CoV-2 in clinician-collected nasal, nasopharyngeal, and oropharyngeal swab specimens from individuals who meet COVID-19 clinical and/or epidemiological criteria. [employer] SARS-CoV-2 is for use only under Emergency Use Authorization (EUA) in laboratories certified under Clinical Laboratory Improvement Amendments of 1988 (CLIA), 42 U.S.C. ?263a, that meet requirements to perform high or moderate complexity tests. An individual without symptoms of COVID-19 and who is not shedding SARS-CoV-2 virus would expect to have a negative (not detected) result in this assay. Fact sheet for Healthcare Providers: https://www.fda.gov/media/560500/download Fact sheet for Patients: https://www.fda.gov/media/639903/download METHODOLOGY: RT-PCR Performed By: #### C OVID #### [address] [address] Podiatrist: Ankush Moser MD SARS-CoV-2 [facility] Comment on above: Performed By: #### C OVID #### [address] [address] Podiatrist: Ankush Moser MD SARS-CoV-2,Rapid [facility] Comment on above: Performed By: #### C OVID #### [address] [address] Podiatrist: Ankush Moser MD [id number] 06-29-2020 SARS-CoV-2 Source .NASOPHARYNGEAL SWAB [facility] Comment on above: Performed By: #### C OVID #### [address] [address] Podiatrist: Ankush Moser MD [id number] 06-16-2020 SARS-CoV-2 [facility] Comment on above: Performed By: #### C OVID #### [address] [address] Podiatrist: Ankush Moser MD SARS-CoV-2 Not Detected [facility] Comment on above: Result Comment: The specimen is NEGATIVE for SARS-CoV-2, the novel coronavirus associated with COVID-19. A negative result does not rule out COVID-19. Te[employer] SARS-CoV-2 for use on the [employer] is a real-time RT-PCR test intended for the qualitative detection of nucleic acids from SARS-CoV-2 in clinician-collected nasal, nasopharyngeal, and oropharyngeal swab specimens from individuals who meet COVID-19 clinical and/or epidemiological criteria. [employer] SARS-CoV-2 is for use only under Emergency Use Authorization (EUA) in laboratories certified under Clinical Laboratory Improvement Amendments of 1988 (CLIA), 42 U.S.C. ?263a, that meet requirements to perform high or moderate complexity tests. An individual without symptoms of COVID-19 and who is not shedding SARS-CoV-2 virus would expect to have a negative (not detected) result in this assay. Fact sheet for Healthcare Providers: https://www.fda.gov/media/627601/download Fact sheet for Patients: https://www.fda.gov/media/627209/download METHODOLOGY: RT-PCR Performed By: #### C OVID #### [facility] [address] [place] [id number] Podiatrist: Ankush Moser MD SARS-CoV-2,Rapid Normal [facility] Comment on above: Performed By: #### C OVID #### [employer] [address] [place] [id number] Podiatrist: Ankush Moser MD [id number] 06-14-2020 SARS-CoV-2 Source .NASOPHARYNGEAL SWAB Normal [facility] Comment on above: Performed By: #### C OVID #### [facility] [address] [place] [id number] Podiatrist: Ankush Moser MD [id number] 06-02-2020 SARS-CoV-2 Not Detected Normal Not Detected [facility] Comment on above: Result Comment: (NOT E) This nucleic acid amplification test was developed and its performance characteristics determined by [employer]. Nucleic acid amplification tests include PCR and TMA. This test has not been FDA cleared or approved. This test has been authorized by FDA under an Emergency Use Authorization (EUA). This test is only authorized for the duration of time the declaration that circumstances exist justifying the authorization of the emergency use of in vitro diagnostic tests for detection of SARS-CoV-2 virus and/or diagnosis of COVID-19 infection under section 564(b)(1) of the Act, 21 U.S.C. 360bbb-3(b) (1), unless the authorization is terminated or revoked sooner. When diagnostic testing is negative, the possibility of a false negative result should be considered in the context of a patient's recent exposures and the presence of clinical signs and symptoms consistent with COVID-19. An individual without symptoms of COVID- 19 and who is not shedding SARS-CoV-2 virus would expect to have a negative (not detected) result in this assay. Performed At: [facility] [address] [facility] [place] [id number] Camryn Nieto MD Ph:[phone] Performed By: #### A COV #### [facility] [address] [place] [address] Podiatrist: Hugo Welch MD [id number] 05-25-2020 SARS-CoV-2 Not Detected Normal Not Detected [facility] Comment on above: Result Comment: (NOT E) This nucleic acid amplification test was developed and its performance characteristics determined by [facility]. Nucleic acid amplification tests include PCR and TMA. This test has not been FDA cleared or approved. This test has been authorized by FDA under an Emergency Use Authorization (EUA). This test is only authorized for the duration of time the declaration that circumstances exist justifying the authorization of the emergency use of in vitro diagnostic tests for detection of SARS-CoV-2 virus and/or diagnosis of COVID-19 infection under section 564(b)(1) of the Act, 21 U.S.C. 360bbb-3(b) (1), unless the authorization is terminated or revoked sooner. When diagnostic testing is negative, the possibility of a false negative result should be considered in the context of a patient's recent exposures and the presence of clinical signs and symptoms consistent with COVID-19. An individual without symptoms of COVID- 19 and who is not shedding SARS-CoV-2 virus would expect to have a negative (not detected) result in this assay. Performed At: [facility] [address] [place], [place] [id number] Camryn Nieto MD Ph:[phone] Performed By: #### A COV #### [facility] [address] [place] [address] Podiatrist: Hugo Welch MD [id number] 05-10-2020 SARS-CoV-2 Not Detected Normal Not Detected [facility] Comment on above: Result Comment: (NOT E) This nucleic acid amplification test was developed and its performance characteristics determined by [employer]. Nucleic acid amplification tests include PCR and TMA. This test has not been FDA cleared or approved. This test has been authorized by FDA under an Emergency Use Authorization (EUA). This test is only authorized for the duration of time the declaration that circumstances exist justifying the authorization of the emergency use of in vitro diagnostic tests for detection of SARS-CoV-2 virus and/or diagnosis of COVID-19 infection under section 564(b)(1) of the Act, 21 U.S.C. 360bbb-3(b) (1), unless the authorization is terminated or revoked sooner. When diagnostic testing is negative, the possibility of a false negative result should be considered in the context of a patient's recent exposures and the presence of clinical signs and symptoms consistent with COVID-19. An individual without symptoms of COVID- 19 and who is not shedding SARS-CoV-2 virus would expect to have a negative (not detected) result in this assay. Performed At: [facility] [place] [id number] Camryn Nieto MD Ph:[phone] Performed By: #### A COV #### [facility] [address] [place] [address] Podiatrist: Hugo Welch MD [id number] 05-04-2020 SARS-CoV-2 Not Detected Normal Not Detected [facility] Comment on above: Result Comment: (NOT E) This nucleic acid amplification test was developed and its performance characteristics determined by [employer]. Nucleic acid amplification tests include PCR and TMA. This test has not been FDA cleared or approved. This test has been authorized by FDA under an Emergency Use Authorization (EUA). This test is only authorized for the duration of time the declaration that circumstances exist justifying the authorization of the emergency use of in vitro diagnostic tests for detection of SARS-CoV-2 virus and/or diagnosis of COVID-19 infection under section 564(b)(1) of the Act, 21 U.S.C. 360bbb-3(b) (1), unless the authorization is terminated or revoked sooner. When diagnostic testing is negative, the possibility of a false negative result should be considered in the context of a patient's recent exposures and the presence of clinical signs and symptoms consistent with COVID-19. An individual without symptoms of COVID- 19 and who is not shedding SARS-CoV-2 virus would expect to have a negative (not detected) result in this assay. Performed At: [address] [id number] Jefry Shirley PhD Ph:[phone] Performed By: #### A COV #### [facility] [address] [place] [address] Podiatrist: Hugo Welch MD [id number] 04-13-2020 SARS-CoV-2 Not Detected Normal Not Detected [facility] Comment on above: Result Comment: (NOT E) This nucleic acid amplification test was developed and its performance characteristics determined by [employer]. Nucleic acid amplification tests include PCR and TMA. This test has not been FDA cleared or approved. This test has been authorized by FDA under an Emergency Use Authorization (EUA). This test is only authorized for the duration of time the declaration that circumstances exist justifying the authorization of the emergency use of in vitro diagnostic tests for detection of SARS-CoV-2 virus and/or diagnosis of COVID-19 infection under section 564(b)(1) of the Act, 21 U.S.C. 360bbb-3(b) (1), unless the authorization is terminated or revoked sooner. When diagnostic testing is negative, the possibility of a false negative result should be considered in the context of a patient's recent exposures and the presence of clinical signs and symptoms consistent with COVID-19. An individual without symptoms of COVID- 19 and who is not shedding SARS-CoV-2 virus would expect to have a negative (not detected) result in this assay. Performed At: [facility] [address] [facility] [place] [id number] Camryn Nieto MD Ph:[phone] Performed By: #### A COV #### [facility] [address] [place] [address] Podiatrist: Hugo Welch MD [id number] 03-16-2020 SARS-CoV-2 Not Detected Normal Not Detected [facility] Comment on above: Result Comment: (NOT E) This nucleic acid amplification test was developed and its performance characteristics determined by [employer]. Nucleic acid amplification tests include PCR and TMA. This test has not been FDA cleared or approved. This test has been authorized by FDA under an Emergency Use Authorization (EUA). This test is only authorized for the duration of time the declaration that circumstances exist justifying the authorization of the emergency use of in vitro diagnostic tests for detection of SARS-CoV-2 virus and/or diagnosis of COVID-19 infection under section 564(b)(1) of the Act, 21 U.S.C. 360bbb-3(b) (1), unless the authorization is terminated or revoked sooner. When diagnostic testing is negative, the possibility of a false negative result should be considered in the context of a patient's recent exposures and the presence of clinical signs and symptoms consistent with COVID-19. An individual without symptoms of COVID- 19 and who is not shedding SARS-CoV-2 virus would expect to have a negative (not detected) result in this assay. Performed At: [facility] [address] [place], [place] [id number] Nick Alexander Formerly [facility] Ph:[phone] Performed By: #### A COV #### [facility] [address] [place] [address] Podiatrist: Hugo Welch MD [id number] 03-05-2020 SARS-CoV-2 Not Detected Normal Not Detected [facility] Comment on above: Result Comment: (NOT E) This nucleic acid amplification test was developed and its performance characteristics determined by [employer]. Nucleic acid amplification tests include PCR and TMA. This test has not been FDA cleared or approved. This test has been authorized by FDA under an Emergency Use Authorization (EUA). This test is only authorized for the duration of time the declaration that circumstances exist justifying the authorization of the emergency use of in vitro diagnostic tests for detection of SARS-CoV-2 virus and/or diagnosis of COVID-19 infection under section 564(b)(1) of the Act, 21 U.S.C. 360bbb-3(b) (1), unless the authorization is terminated or revoked sooner. When diagnostic testing is negative, the possibility of a false negative result should be considered in the context of a patient's recent exposures and the presence of clinical signs and symptoms consistent with COVID-19. An individual without symptoms of COVID- 19 and who is not shedding SARS-CoV-2 virus would expect to have a negative (not detected) result in this assay. Performed At: [facility] [address] [place] [id number] Camryn Nieto MD Ph:[phone] Performed By: #### A COV #### [facility] [address], [place] [id number] Podiatrist: Hugo Welch MD Vital Signs Date Time Vital Sign Value Performing Clinician Facility 09-28-2022 13:04-0400 Body height 160 cm Marley Rojasue PA-C Work Phone: [facility] 09-28-2022 13:04-0400 Body weight 60.78 kg Marley Merlos Larisa PA-C Work Phone: [facility] 09-28-2022 13:04-0400 Diastolic blood pressure 79 mm[Hg] Marley Merlos Larisa PA-C Work Phone: [facility] 09-28-2022 13:04-0400 Heart rate 75 /min Marley Rojasue PA-C Work Phone: [facility] 09-28-2022 13:04-0400 Systolic blood pressure 119 mm[Hg] Marley O Larisa PA-C Work Phone: [facility] 09-07-2022 08:55-0400 Body weight 60.78 kg Marley O Larisa PA-C Work Phone: [facility] 09-07-2022 08:55-0400 Diastolic blood pressure 69 mm[Hg] Marley O Larisa PA-C Work Phone: [facility] 09-07-2022 08:55-0400 Heart rate 77 /min Marley O Larisa PA-C Work Phone: [facility] 09-07-2022 08:55-0400 Systolic blood pressure 103 mm[Hg] Marley O Larisa PA-C Work Phone: [facility] 07-14-2022 10:21-0500 Body height 157.9 cm Samy Odonnell MD Work Phone: [facility] 07-14-2022 10:21-0500 Body weight 62.32 kg Samy Odonnell MD Work Phone: [facility] 07-14-2022 10:21-0500 Diastolic blood pressure 80 mm[Hg] Samy Odonnell MD Work Phone: [facility] 07-14-2022 10:21-0500 Heart rate 84 /min Samy Odonnell MD Work Phone: [facility] 07-14-2022 10:21-0500 Systolic blood pressure 121 mm[Hg] Samy Odonnell MD Work Phone: [facility] 07-07-2022 09:14-0500 Blood Pressure Location Chalo BLUM [facility] 07-07-2022 09:14-0500 Diastolic blood pressure 86 mm[Hg] Chalo BLUM [facility] 07-07-2022 09:14-0500 Heart rate 76 /min Chalo COOK [facility] 07-07-2022 09:14-0500 Systolic blood pressure 115 mm[Hg] Chalo COOK [facility] 06-18-2022 13:16-0500 Heart rate 82 /min Chalo COOK [facility] 06-18-2022 13:16-0500 SaO2% (BldA) [Mass fraction] 99 % Chalo COOK [facility] 06-18-2022 13:16-0500 Respiratory rate 16 /min Chalo COOK [facility] 06-18-2022 13:15-0500 Body temperature 97.34 [degF] Chalo COOK [facility] 06-18-2022 13:15-0500 Diastolic blood pressure 84 mm[Hg] Chalo COOK [facility] 06-18-2022 13:15-0500 Mean blood pressure 101 mm[Hg] Chalo COOK [facility] 06-18-2022 13:15-0500 Systolic blood pressure 133 mm[Hg] Chalo COOK [facility] 06-18-2022 12:25-0500 Blood Pressure Location Chalo COOK [facility] 06-18-2022 12:25-0500 Diastolic blood pressure 87 mm[Hg] Chalo COOK [facility] 06-18-2022 12:25-0500 Heart rate 75 /min Chalo COOK [facility] 06-18-2022 12:25-0500 Mean blood pressure 104 mm[Hg] Chalo COOK [facility] 06-18-2022 12:25-0500 Respiratory rate 16 /min Chalo BLUM [facility] 06-18-2022 12:25-0500 SaO2% (BldA) [Mass fraction] 100 % Chalo COOK [facility] 06-18-2022 12:25-0500 Systolic blood pressure 137 mm[Hg] Chalo COOK [facility] 06-18-2022 12:20-0500 Body temperature 97.88 [degF] Chalo COOK [facility] 06-18-2022 12:20-0500 Diastolic blood pressure 77 mm[Hg] Chalo COOK [facility] 06-18-2022 12:20-0500 Heart rate 73 /min Chalo COOK [facility] 06-18-2022 12:20-0500 Mean blood pressure 97 mm[Hg] Chalo COOK [facility] 06-18-2022 12:20-0500 Respiratory rate 19 /min Chalo COOK [facility] 06-18-2022 12:20-0500 SaO2% (BldA) [Mass fraction] 100 % Chalo COOK [facility] 06-18-2022 12:20-0500 Systolic blood pressure 136 mm[Hg] Chalo COOK [facility] 06-18-2022 12:10-0500 Mean blood pressure 97 mm[Hg] Chalo COOK [facility] 06-18-2022 12:10-0500 Respiratory rate 17 /min Chalo COOK [facility] 06-18-2022 12:05-0500 Respiratory rate 17 /min Chalo COOK [facility] 06-18-2022 11:55-0500 Body temperature 97.34 [degF] Chalo COOK [facility] 06-18-2022 11:50-0500 Respiratory rate 6 /min Chalo COOK [facility] 06-18-2022 09:30-0500 Mean blood pressure 96 mm[Hg] Chalo COOK [facility] 06-18-2022 09:30-0500 Heart rate 78 /min Chalo COOK [facility] 06-18-2022 09:29-0500 Body temperature 97.7 [degF] Chalo BLUM [facility] 06-18-2022 09:29-0500 Mean blood pressure 105 mm[Hg] Chalo COOK [facility] 06-11-2022 09:32-0500 Diastolic blood pressure 86 mm[Hg] Chalo COOK [facility] 06-11-2022 09:32-0500 Heart rate 79 /min Chalo COOK [facility] 06-11-2022 09:32-0500 Mean blood pressure 104 mm[Hg] Chalo COOK [facility] 06-11-2022 09:32-0500 Systolic blood pressure 138 mm[Hg] hCalo COOK [facility] 06-11-2022 09:32-0500 Heart rate 85 /min Chalo COOK [facility] 06-11-2022 09:32-0500 SaO2% (BldA) [Mass fraction] 98 % Chalo COOK [facility] 06-11-2022 09:32-0500 Blood Pressure Location Chalo BLUM [facility] 06-11-2022 09:32-0500 Body temperature 97.34 [degF] Chalo BLUM [facility] 06-11-2022 09:31-0500 Diastolic blood pressure 84 mm[Hg] Chalo BLUM [facility] 06-11-2022 09:31-0500 Mean blood pressure 106 mm[Hg] Chalo BLUM [facility] 06-11-2022 09:31-0500 Systolic blood pressure 149 mm[Hg] Chalo BLUM [facility] 06-11-2022 09:31-0500 Blood Pressure Location Chalo BLUM [facility] 05-05-2022 15:50-0500 Diastolic blood pressure 80 mm[Hg] Balbina Napoles Work Phone: formerly [facility] 250 DO Work Phone: 05-05-2022 15:50-0500 Systolic blood pressure 98 mm[Hg] Balbina Napoles Work Phone: formerly [facility] 250 DO Work Phone: 05-05-2022 15:49-0500 Body height 160.02 cm Balbina Napoles Work Phone: formerly [facility] 250 DO Work Phone: 05-05-2022 15:49-0500 Body mass index (BMI) [Ratio] 26.22 kg/m2 Balbina Napoles Work Phone: formerly [facility] 250 DO Work Phone: 05-05-2022 15:49-0500 Body surface area Derived from formula 1.7 m2 Balbina Napoles Work Phone: formerly [facility] 250 DO Work Phone: 05-05-2022 15:49-0500 Body weight 67.13 kg Balbina Napoles Work Phone: formerly [facility] 250 DO Work Phone: 05-05-2022 15:49-0500 Diastolic blood pressure 64 mm[Hg] Balbina Napoles Work Phone: formerly [facility] 250 DO Work Phone: 05-05-2022 15:49-0500 Heart rate 128 /min Balbina Napoles Work Phone: formerly [facility] 250 DO Work Phone: 05-05-2022 15:49-0500 Systolic blood pressure 92 mm[Hg] Balbina Napoles Work Phone: formerly [facility] 250 DO Work Phone: 04-17-2022 07:26-0500 Diastolic blood pressure 72 mm[Hg] Chalo BLUM [facility] 04-17-2022 07:26-0500 Heart rate 86 /min Chalo BLUM [facility] 04-17-2022 07:26-0500 Mean blood pressure 85 mm[Hg] Chalo COOK [facility] 04-17-2022 07:26-0500 Systolic blood pressure 109 mm[Hg] Chalo BLUM [facility] 04-17-2022 07:25-0500 Body temperature 98.42 [degF] Chalo BLUM [facility] 04-17-2022 07:25-0500 Diastolic blood pressure 68 mm[Hg] Chalo BLUM [facility] 04-17-2022 07:25-0500 Heart rate 82 /min Chalo BLUM [facility] 04-17-2022 07:25-0500 Mean blood pressure 82 mm[Hg] Chalo BLUM [facility] 04-17-2022 07:25-0500 Respiratory rate 16 /min Chalo BLUM [facility] 04-17-2022 07:25-0500 SaO2% (BldA) [Mass fraction] 96 % Chalo BLUM [facility] 04-17-2022 07:25-0500 Systolic blood pressure 111 mm[Hg] Chalo BLUM [facility] 03-31-2022 13:11-0500 Blood Pressure Location Chalo BLUM [facility] 03-31-2022 13:11-0500 Diastolic blood pressure 87 mm[Hg] Chalo BLUM [facility] 03-31-2022 13:11-0500 Heart rate 79 /min Chalo BLUM [facility] 03-31-2022 13:11-0500 Systolic blood pressure 125 mm[Hg] Chalo BLUM [facility] 03-23-2022 17:30-0400 Body height 160.02 cm Balbina Napoles Other [employer] Other 03-23-2022 17:30-0400 Body mass index (BMI) [Ratio] 29.76 kg/m2 Balbina Napoles Other [employer] Other 03-23-2022 17:30-0400 Body temperature 98.1 [degF] Balbina Napoles Other [employer] Other 03-23-2022 17:30-0400 Body weight 76.2 kg Balbina Napoles Other [employer] Other 03-23-2022 17:30-0400 Diastolic blood pressure 88 mm[Hg] Balbina Napoles Other [employer] Other 03-23-2022 17:30-0400 Respiratory rate 18 /min Balbina Napoles Other [employer] Other 03-23-2022 17:30-0400 SaO2% (BldA) [Mass fraction] 98 % Balbina Napoles Other [employer] Other 03-23-2022 17:30-0400 Systolic blood pressure 127 mm[Hg] Balbina Napoles Other [employer] Other 02-02-2022 17:30-0400 Body height 160.02 cm Balbina Napoles Other [employer] Other 02-02-2022 17:30-0400 Body mass index (BMI) [Ratio] 32.06 kg/m2 Balbina Napoles Other [employer] Other 02-02-2022 17:30-0400 Body temperature 98.6 [degF] Balbina Napoles Other [employer] Other 02-02-2022 17:30-0400 Body weight 82.1 kg Balbina Mohrault Other [employer] Other 02-02-2022 17:30-0400 Diastolic blood pressure 96 mm[Hg] Balbina Napoles Other [employer] Other 02-02-2022 17:30-0400 Respiratory rate 17 /min Balbina Napoles Other [employer] Other 02-02-2022 17:30-0400 SaO2% (BldA) [Mass fraction] 98 % Balbina Napoles Other [employer] Other 02-02-2022 17:30-0400 Systolic blood pressure 152 mm[Hg] Balbina Napoles Other [employer] Other Encounters Encounter Date Encounter Type Care Provider Facility Start: 06-16-2023 End: 06-16-2023 ambulatory KASEY MARLEY Not Available Start: 06-08-2023 End: 06-08-2023 ambulatory KASEY MARLEY Not Available Start: 04-26-2023 End: 04-26-2023 ambulatory SAMY ODONNELL Facility:[facility] Start: 04-26-2023 End: 04-26-2023 Subsequent hospital visit by physician Us Tam A21 5 Work Phone: Radiology Comment on above: Nephrolithiasis [N20 .0] Start: 10-21-2022 End: 10-22-2022 ambulatory SAMY ODONNELL Facility:[facility] Start: 10-21-2022 End: 10-21-2022 Patient encounter procedure Samy Odonnell MD Work Phone: Urology Comment on above: Nephrolithiasis (Evette raúl Dx); Hyperoxaluria; Hypernatriuria; Hypocitraturia; Low urine output Start: 10-20-2022 Orders Only Samy Odonnell MD Work Phone: Urology Start: 10-12-2022 End: 10-12-2022 ambulatory SAMY ODONNELL Facility:[facility] Start: 09-28-2022 End: 09-29-2022 ambulatory Marley Peres PA-C Work Phone: Urology Start: 09-28-2022 End: 09-28-2022 Patient encounter procedure Marley Gaurang Rojasue PA-C Work Phone: Urology Comment on above: Preop examination (P rimary Dx); Nephrolithiasis Start: 09-28-2022 End: 09-28-2022 Preprocedural examination done Marley Rojasue PA-C Work Phone: Urology Start: 09-24-2022 Telephone encounter Teresita Denny [facility] Comment on above: Opened In Error Start: 09-21-2022 End: 09-21-2022 ambulatory MARLEY MerlosJABARILARISA Facility:[facility] Start: 09-18-2022 Orders Only Samy Odonnell MD Work Phone: Urology Comment on above: Nephrolithiasis (Evette raúl Dx); Abnormal urinalysis Start: 09-16-2022 End: 09-17-2022 ambulatory SAMY ODONNELL Facility:[facility] Start: 09-16-2022 End: 09-16-2022 Patient encounter procedure Samy Odonnell MD Work Phone: Urology Comment on above: Nephrolithiasis (Evette raúl Dx) Start: 09-14-2022 Orders Only Samy Odonnell MD Work Phone: Urology Start: 09-07-2022 End: 09-08-2022 ambulatory Marley Gaurang Larisa PA-C Work Phone: Urology Start: 09-07-2022 Encounter for other preprocedural examination MARLEY GloverLARISA [facility] Start: 09-07-2022 End: 09-07-2022 Patient encounter procedure Marley Gaurang SchroederLarisa PA-C Work Phone: Urology Comment on above: Preop examination (P rimary Dx); Nephrolithiasis; Hypernatriuria; Hyperoxaluria; Hypocitraturia; Aciduria (HCC); Urine volume deficient; Elevated parathyroid hormone Start: 09-07-2022 End: 09-07-2022 Preprocedural examination done Marley Peres PA-C Work Phone: Urology Start: 09-01-2022 Orders Only Yasmeen Alexander MD Work Phone: Urology Start: 08-19-2022 Telephone encounter Marisa West RN [facility] Comment on above: Returning Patient's Call Start: 08-18-2022 End: 08-18-2022 Orders Only Samy Odonnell MD Work Phone: Urology Comment on above: Nephrolithiasis (Evette raúl Dx) Start: 08-13-2022 Telephone encounter Marisa West RN [facility] Comment on above: [employer] Tech - O ther Start: 08-12-2022 ambulatory Samy Odonnell MD Work Phone: Urology Comment on above: Renal scan 07/30/22 Start: 08-12-2022 E-mail encounter fro m caregiver Samy Odonnell MD Work Phone: [facility] Start: 07-30-2022 ambulatory SAMY ODONNELL Facility:[facility] Start: 07-30-2022 End: 07-30-2022 Subsequent hospital visit by physician [facility] Work Phone: [facility] Comment on above: Hydronephrosis with urinary obstruction due to ureteral calculus [N13.2] Start: 07-16-2022 Orders Only Samy Odonnell MD Work Phone: Urology Start: 07-14-2022 End: 07-15-2022 Orders Only Samy Odonnell MD Work Phone: Urology Comment on above: Abnormal urinalysis (Primary Dx) Nephrolithiasis (Evette raúl Dx); Hydronephrosis with urinary obstruction due to ureteral calculus; Left flank pain; Left renal atrophy Start: 07-07-2022 End: 07-08-2022 ambulatory BALBINA NAPOLES Facility:[facility] Start: 07-07-2022 End: 07-07-2022 Patient encounter procedure Chalo BLUM [facility] Start: 07-06-2022 End: 07-06-2022 ambulatory Chalo Blum Facility:[facility] Start: 07-06-2022 End: 07-06-2022 ambulatory MECHANICAL DESIGN ENGINEER-C Balbina Napoles Work Phone: [facility] Work Phone: Start: 07-06-2022 End: 07-06-2022 Patient encounter procedure MECHANICAL DESIGN ENGINEER-C Balbina Napoles Work Phone: [facility] Work Phone: Start: 06-18-2022 End: 06-18-2022 ambulatory Chalo BLUM Facility:[facility] Start: 06-18-2022 End: 06-18-2022 Admission to same day surgery center Chalo BLUM [facility] Start: 06-11-2022 End: 06-12-2022 ambulatory Chalo BLUM Facility:[facility] Start: 06-11-2022 End: 06-11-2022 Patient encounter procedure Chalo BLUM [facility] Start: 05-07-2022 End: 05-07-2022 ambulatory Irina Mao Other [facility] Other Start: 05-07-2022 Telephone encounter Irina Mao [employer] Room Assistant Start: 05-05-2022 Office consultation new/estab patient 60 min Balbina Napoles Work Phone: formerly [facility] 250 DO Work Phone: Start: 04-17-2022 End: 04-18-2022 ambulatory Chalo BLUM Facility:[facility] Start: 04-17-2022 End: 04-17-2022 Patient encounter procedure Chalo BLUM [facility] Start: 04-01-2022 ambulatory Chalo BLUM Facility :[facility] [place] Start: 03-31-2022 End: 04-01-2022 ambulatory Chalo BLUM Facility:[facility] Start: 03-31-2022 End: 05-01-2022 Pre-admission assessment Chalo BLUM [facility] Start: 03-31-2022 End: 03-31-2022 Patient encounter procedure Chalo BLUM [facility] Start: 03-31-2022 End: 04-01-[address] CHALO BLUM Facility:[facility] Start: 03-24-2022 End: 03-25-2022 ambulatory BALBINA NAPOLES Facility:[facility] Start: 03-23-2022 End: 03-23-2022 ambulatory Balbina Napoles Other [employer] Other Start: 03-23-2022 Office outpatient vi sit 25 minutes Balbinaanai Napoles [facility] Start: 03-21-2022 End: 03-22-[address] CHALO BLUM Facility:[facility] Start: 03-20-2022 ambulatory [facility]alo BLUM [facility] Start: 03-19-2022 End: 03-20-2022 ambulatory BALBINA NAPOLES Facility:[facility] Start: 02-16-2022 End: 02-17-[address] BRADEN LANGSTON Facility:[facility] Start: 02-03-2022 End: 02-04-2022 ambulatory BALBINAGÓMEZ NAPOLES Facility:[facility] Start: 02-02-2022 Office outpatient vi sit 15 minutes Balbina Yesika [facility] Start: 02-02-2022 End: 02-02-2022 ambulatory BALBINAANAI NAPOLES [employer] Other Start: 12-24-2021 End: 12-24-2021 ambulatory Balbina Napoles Other [employer] Other Start: 12-24-2021 Telephone encounter Balbina mejia [facility] Start: 07-24-2020 End: 07-25-2020 Patient encounter procedure JANICEGhada MARTINEZ [facility] Start: 07-24-2020 End: 07-24-2020 Subsequent hospital visit by physician JOSEPH DUQUE DOCTOR Start: 07-17-2020 End: 07-18-2020 Patient encounter procedure JANICE MARTINEZ [facility] Start: 07-17-2020 End: 07-17-2020 Subsequent hospital visit by physician JOSEPH DUQUE DOCTOR Start: 06-29-2020 End: 06-30-2020 Patient encounter procedure JANICE MARTINEZ [facility] Start: 06-13-2020 End: 06-14-2020 Patient encounter procedure JANICE MARTINEZ [facility] Start: 06-13-2020 End: 06-13-2020 Subsequent hospital visit by physician JOSEPH MARTINEZ Start: 05-30-2020 End: 05-31-2020 Patient encounter procedure JANICEGhada MARTINEZ [facility] Start: 05-30-2020 End: 05-30-2020 Subsequent hospital visit by physician JOSEPH MARTINEZ Start: 05-22-2020 End: 05-23-2020 Patient encounter procedure JANICEGhada MARTINEZ [facility] Start: 05-22-2020 End: 05-22-2020 Subsequent hospital visit by physician JOSEPH DUQUE DOCTOR Start: 05-09-2020 End: 05-10-2020 Patient encounter procedure JANICE MARTINEZ [facility] Start: 05-09-2020 End: 05-09-2020 Subsequent hospital visit by physician JOSEPH DUQUE DOCTOR Start: 05-02-2020 End: 05-03-2020 Patient encounter procedure JANICEGhada MENDOZAI [facility] Start: 05-02-2020 End: 05-02-2020 Subsequent hospital visit by physician JOSEPH DUQUE DOCTOR Start: 04-25-2020 End: 04-26-2020 [facility] Start: 04-25-2020 End: 04-25-2020 Subsequent hospital visit by physician JOSEPH CASTRO [facility] DOCTOR Start: 04-10-2020 End: 04-11-2020 Patient encounter procedure [facility]ARCELINO [facility] Start: 04-10-2020 End: 04-10-2020 Subsequent hospital visit by physician JOSEPH CASTRO [facility] DOCTOR Start: 03-12-2020 End: 03-13-2020 Patient encounter procedure MARCELINO MARTINEZ [facility] Start: 03-12-2020 End: 03-12-2020 Subsequent hospital visit by physician JOSEPH CASTR[facility] DOCTOR Start: 03-01-2020 End: 03-02-2020 Patient encounter procedure MARCELINO MARTINEZ [facility] Start: 03-01-2020 End: 03-01-2020 Subsequent hospital visit by physician JOSEPH CASTR[facility] DOCTOR Patient encounter status Wilder ospina Bart Napoles Work Phone: formerly [facility] 250 DO Work Phone: Procedures Date Procedure Procedure Detail Performing Clinician Start: 04-26-2023 Radiologic exam abdo men 3+ views Samy Odonnell MD Work Phone: Start: 04-26-2023 Us retroperitoneal r eal time w/image complete Samy Odonnell MD Work Phone: Start: 09-07-2022 Urnls dip stick/tabl et reagent auto microscopy Bulk Order Provider Start: 07-30-2022 Kidney img morpholog y vascular flow 1 w/rx Samy Odonnell MD Work Phone: Start: 07-14-2022 Antibody screen Samy dan MD Work Phone: Start: 07-14-2022 Antibody screen MARLEY HERNÁNDEZ Comment on above: Order Comment: Speci men Type: BLOOD SPECIMEN Ordering Facility: [facility] Address: [address] [place] [id number] Performed By: #### T [id number] #### [facility] CLIA [id number] [address] [place] [address] [place] Start: 07-06-2022 Diagnostic radiograp hy of abdomen MECHANICAL DESIGN ENGINEER-C Balbina Napoles Work Phone: Start: 06-18-2022 Extracorporeal shock wave lithotripsy of calculus of kidney Chalo BLUM Start: 03-19-2022 Cystoscopy Chalo MORE Start: 05-09-2020 COVID-19 AMBULATORY DARBY S MARTINEZ Start: 05-02-2020 COVID-19 AMBULATORY DARBY S MARTINEZ Start: 04-25-2020 COVID- AMBULATORY DARBY S MARTINEZ Start: 04-10-2020 COVID- AMBULATORY DARBY S MARTINEZ Start: 03-01-2020 COVID- AMBULATORY DARBY S MARTINEZ Bypass of stomach Chalo MORE Decompression of med corry nerve Balbina Napoles Work Phone: Esophagogastrostomy, antesternal or antethoracic Balbina Napoles Work Phone: Hysterectomy Chalo BLUM Insertion of stent i nto urethra Balbina Napoles Work Phone: NEGATED: Highlighted row has not occurred! Colonoscopy Balbina mejia Work Phone: Plan of Treatment Date Care Activity Detail Author Start: 09-28-2025 DIABETES SCREEN DIABETES SCREEN [facility] Start: 09-28-2025 Diabetes Screening Diabetes Screenin g [facility] Start: 07-14-2025 DIABETES SCREEN DIABETES SCREEN [facility] Start: 07-14-2023 End: 09-13-2023 Calcium.ionized [Moles/volume] in Blood CALCIUM IONIZED BLOOD Lab Routine Hydronephrosis with urinary obstruction due to ureteral calculus Nephrolithiasis Left flank pain Left renal atrophy Expected: 07/14/2023, Expires: 09/13/2023 [facility] Work Phone: Comment on above: Expected: 07/14/2023 , Expires: 09/13/2023 Start: 01-22-2023 Covid-19 Vaccine () Covid-19 [address] () [facility] Start: 01-22-2023 Influenza vaccination [facility] Start: 10-04-2022 Urine microalbumin profile DTaP,Tdap,Td Vaccine (2 - Td or Tdap) [facility] Start: 09-18-2022 End: 11-18-2022 Bacteria identified in Urine by Culture URINE CULTURE Microbiology Routine Nephrolithiasis Abnormal urinalysis Expected: 09/18/2022, Expires: 11/18/2022 [facility] Work Phone: Comment on above: Expected: 09/18/2022 , Expires: 11/18/2022 Start: 09-18-2022 End: 11-18-2022 Basic metabolic 2000 panel - Serum or Plasma BASIC METABOLIC PNL Lab Routine Nephrolithiasis Abnormal urinalysis Expected: 09/18/2022 (Approximate), Expires: 11/18/2022 [facility] Work Phone: Comment on above: Expected: 09/18/2022 (Approximate), Expires: 11/18/2022 Start: 09-18-2022 End: 11-18-2022 CBC W Auto Differential panel - Blood CBC + DIFF Lab Routine Nephrolithiasis Abnormal urinalysis Expected: 09/18/2022 (Approximate), Expires: 11/18/2022 [facility] Work Phone: Comment on above: Expected: 09/18/2022 (Approximate), Expires: 11/18/2022 Start: 08-18-2022 End: 10-18-2022 Bacteria identified in Urine by Culture URINE CULTURE Microbiology Routine Nephrolithiasis Expected: 08/18/2022, Expires: 10/18/2022 [facility] Work Phone: Comment on above: Expected: 08/18/2022 , Expires: 10/18/2022 Start: 08-17-2022 End: 10-17-2022 Urinalysis complete panel - Urine URINALYSIS, WITH MICROSCOPIC Lab Routine Nephrolithiasis Expected: 08/17/2022, Expires: 10/17/2022 [facility] Work Phone: Comment on above: Expected: 08/17/2022 , Expires: 10/17/2022 Start: 05-24-2022 DEPRESSION ASSESSMENT DEPRESSION ASS ESSMENT [facility] Start: 01-22-2022 Influenza vaccination INFLUENZA (#1) [facility] Start: 11-18-2021 COVID-19 VACCINE (5 - Booster for Moderna series) COVID-19 VACCINE (5 - Booster for Moderna series) [facility] Start: 01-23-2020 Influenza vaccination Flu vaccine (# 1) [place], [place] Start: 2014 Screening for malign ant neoplasm of breast Breast cancer screen [place], [place] Start: 2014 Screening for malign ant neoplasm of colon Colon cancer screen colonoscopy [place], [place] Start: 2014 Shingles Vaccine (1 of 2) Shingles Vaccine (1 of 2) [place], [place] Start: 2014 SHINGRIX VACCINE (1 of 2) SHINGRIX VACCINE (1 of 2) [facility] Start: 2009 COLOGUARD (FIT-DNA) COLOGUARD (FIT-D NA) [facility] Start: [address] [facility] Start: 2009 COLORECTAL CANCER SCREENING COLORECTAL CANCER SCREENING [facility] Start: [address] COLONOGRAPHY [facility] Start: 2009 DIABETES SCREEN DIABETES SCREEN [facility] Start: 2009 FECAL OCCULT BLOOD FECAL OCCULT BLOO D [facility] Start: 2009 Lipid 1996 panel - Serum or Plasma Lipid Screening [facility] Start: 2009 [address] LIPID SCREEN [facility] Start: 2009 SIGMOIDOSCOPY SIGMOIDOSCOPY [facility] Start: 2004 Lipid panel Lipid screen [place], [place] Start: [address] [facility] Start: 1994 HPV TESTING HPV TESTING [facility] Start: 1985 PAP TESTING PAP TESTING [facility] Start: 1985 Screening for malign ant neoplasm of cervix Cervical cancer screen [place], [place] Start: 11-16-1983 DTaP/Tdap/Td vaccine (1 - Tdap) DTaP/Tdap/Td vaccine (1 - Tdap) [place], [place] Start: 11-16-1983 Urine microalbumin profile DTAP,TDAP,TD (1 - Tdap) [facility] Start: 1982 HEPATITIS C SCREENING HEPATITIS C SC EZRA [facility] Start: 1982 HIV SCREENING HIV SCREENING [facility] Start: 11-16-1979 HIV screening HIV screen [place], [place] Start: 1964 HEPATITIS B (1 of 3 - 3-dose series) HEPATITIS B (1 of 3 - 3-dose series) [facility] Start: 1964 Hepatitis B Vaccine (1 of 3 - 3-dose series) Hepatitis B Vaccine (1 of 3 - 3-dose series) [facility] Start: 1964 Hepatitis C screening [facility] [place] Bacteria identified in Urine by Culture URINE CULTURE Microbiology Routine Abnormal urinalysis 07/14/2022 10:05 AM EST [facility] Work Phone: End: 06-13-2020 COVID-19 COVID-19 Lab Routine Once for 1 Occurrences starting 06/13/2020 until 06/13/2020 [place], [place] Comment on above: Once for 1 Occurrenc es starting 06/13/2020 until 06/13/2020 COVID-19 [place], [place] End: 07-17-2020 COVID-19 COVID-19 Lab Routine Once for 1 Occurrences starting 07/17/2020 until 07/17/2020 [employer] Phone: Comment on above: Once for 1 Occurrenc es starting 07/17/2020 until 07/17/2020 End: 07-24-2020 COVID-19 COVID-19 Lab Routine Once for 1 Occurrences starting 07/24/2020 until 07/24/2020 [employer] Phone: Comment on above: Once for 1 Occurrenc es starting 07/24/2020 until 07/24/2020 End: 04-10-2020 Covid-19 Ambulatory Covid-19 Ambulatory Lab Routine Once for 1 Occurrences starting 04/10/2020 until 04/10/2020 [facility], [place] Comment on above: Once for 1 Occurrenc es starting 04/10/2020 until 04/10/2020 Covid-19 Ambulatory [facility], [place] End: 04-25-2020 Covid-19 Ambulatory Covid-19 Ambulatory Lab Routine Once for 1 Occurrences starting 04/25/2020 until 04/25/2020 [facility], [place] Comment on above: Once for 1 Occurrenc es starting 04/25/2020 until 04/25/2020 End: 05-02-2020 Covid-19 Ambulatory Covid-19 Ambulatory Lab Routine Once for 1 Occurrences starting 05/02/2020 until 05/02/2020 [facility], [place] Comment on above: Once for 1 Occurrenc es starting 05/02/2020 until 05/02/2020 End: 05-09-2020 Covid-19 Ambulatory Covid-19 Ambulatory Lab Routine Once for 1 Occurrences starting 05/09/2020 until 05/09/2020 [facility], [place] Comment on above: Once for 1 Occurrenc es starting 05/09/2020 until 05/09/2020 End: 05-22-2020 Covid-19 Ambulatory Covid-19 Ambulatory Lab Routine Once for 1 Occurrences starting 05/22/2020 until 05/22/2020 [facility], [place] Comment on above: Once for 1 Occurrenc es starting 05/22/2020 until 05/22/2020 End: 03-01-2020 Covid-19 Ambulatory Covid-19 Ambulatory Lab Routine Once for 1 Occurrences starting 03/01/2020 until 03/01/2020 [facility], [place] Comment on above: Once for 1 Occurrenc es starting 03/01/2020 until 03/01/2020 End: 05-30-2020 Covid-19 Ambulatory Covid-19 Ambulatory Lab Routine Once for 1 Occurrences starting 05/30/2020 until 05/30/2020 [facility], [place] Comment on above: Once for 1 Occurrenc es starting 05/30/2020 until 05/30/2020 End: 08-13-2023 Kidney img morphology vascular flow 1 w/rx NM RENAL FLOW/FXN W PHARM Radiology Routine Hydronephrosis with urinary obstruction due to ureteral calculus 1 Occurrences starting 07/14/2022 until 08/13/2023 [facility] Work Phone: Comment on above: 1 Occurrences starti ng 07/14/2022 until 08/13/2023 End: 11-20-2023 Radiologic exam abdomen 3+ views XR ABDOMEN 3V KUB W/OBLIQUES Radiology Routine Nephrolithiasis 1 Occurrences starting 10/21/2022 until 11/20/2023 [facility] Work Phone: Comment on above: 1 Occurrences starti ng 10/21/2022 until 11/20/2023 REFER FOR ADMIT INTERVIEW REFER FOR ADMIT INTERVIEW Procedures Routine Nephrolithiasis Ordered: 08/18/2022 [facility] Work Phone: Comment on above: Ordered: 08/18/2022 URINALYSIS, REFLEX MICROSCOPIC URINALYSIS, REFLEX MICROSCOPIC Lab Routine Screening for genitourinary condition Ordered: 09/28/2022 [facility] Work Phone: Comment on above: Ordered: 09/28/2022 End: 11-20-2023 US KIDNEY/BLADDER US KIDNEY/BLADDER Radiology Routine Nephrolithiasis 1 Occurrences starting 10/21/2022 until 11/20/2023 [facility] Work Phone: Comment on above: 1 Occurrences starti ng 10/21/2022 until 11/20/2023 [facility] Immunizations Immunization Date Immunization Notes Care Provider Ele molina 09-23-2021 SARS-CoV-2 (COVID-19 ) mRNA-1273 vaccine Chalo BLUM [facility] 04-23-2021 SARS-CoV-2 (COVID-19 ) mRNA-1273 vaccine Chalo BLUM [facility] 06-27-2020 SARS-CoV-2 (COVID-19 ) mRNA-1273 vaccine Chalo BLUM [facility] 05-30-2020 SARS-CoV-2 (COVID-19 ) mRNA-7858 vaccine Chalo BLUM [facility] 03-01-2019 influenza virus vaccine, unspecified formulation Chalo BLUM [facility] 10-04-2012 tetanus toxoid, redu porsha diphtheria toxoid, and acellular pertussis vaccine, adsorbed Chalo BLUM [facility] Payers Date Payer Category Payer Self-pay [id number] 2020 Unknown 1965 Unknown [id number] 2.16.8 [id number] 1964 Unknown [id number] 2.16.8 40.1.801625.3.579.2.175 1964 Unknown [id number] 2.16.8 40.1.000804.3.579.2.175 1964 Unknown [id number] 2.16.8 40.1.567610.3.579.2.175 1964 Unknown [id number] 2.16.8 40.1.507011.3.579.2.175 1964 Unknown [id number] 2.16.8 40.1.109833.3.579.2.175 1964 Unknown [id number] 2.16.8 40.1.486118.3.579.2.175 1964 Unknown [id number] 2.16.8 40.1.944402.3.579.2.175 1964 Unknown [id number] 2.16.8 40.1.331952.3.579.2.175 1964 Unknown [id number] 2.16.8 40.1.365373.3.579.2.175 1964 Unknown [id number] 2.16.8 40.1.964680.3.579.2.175 1964 Unknown [id number] 2.16.8 40.1.529001.3.579.2.175 1964 Unknown [id number] 2.16.84 0.1.399677.3.579.2.593 1964 Unknown [id number] 2.16.84 0.1.091690.3.579.2.593 1964 Unknown [id number] 2.16.84 0.1.473720.3.579.2.593 1964 Unknown [id number] 2.16.84 0.1.160402.3.579.2.593 1964 Unknown [id number] 2.16.84 0.1.259248.3.579.2.593 1964 Unknown [id number] 2.16.84 0.1.210794.3.579.2.593 1964 Unknown [id number] 2.16.84 0.1.701049.3.579.2.593 1964 Unknown [id number] 2.16.8 40.1.513739.3.579.2.727 1964 Unknown [id number] 2.16.8 40.1.741439.3.579.2.727 1964 Unknown [id number] 2.16.8 40.1.890810.3.579.2.727 1964 Unknown [id number] 2.16.8 40.1.314069.3.579.2.727 1964 Unknown [id number] 2.16.8 40.1.100033.3.579.2.727 1964 Unknown [id number] 2.16.8 40.1.331716.3.579.2.727 1964 Unknown [id number] 2.16.8 40.1.059566.3.579.2.727 1964 Unknown [id number] 2.16.8 40.1.608865.3.579.2.727 1964 Unknown [id number] 2.16.8 40.1.479523.3.579.2.727 1964 Unknown [id number] 2.16.84 0.1.972661.3.579.2.1259 1964 Unknown [id number] 2.16.84 0.1.518658.3.579.2.1259 1959 Unknown [id number] 1. 2.840.939758.1.13.239.2.7.3.937148.315 Unknown [id number] 2.16.8 40.1.091618.3.579.2.531 Social History Date Type Detail Facility Tobacco smoking stat [facility] Unknown if ever smoked [place], [place] Start: 1965 Sex Assigned At Not on file M [place], [place] Start: 09-28-2022 End: 04-26-2023 Sex Assigned At [facility] Start: 03-31-2022 End: 07-14-2022 Tobacco smoking status Never smoked tobacco (finding) [facility] Tobacco smoking status Never [facility] Start: 09-28-2022 End: 04-26-2023 No alcohol use No alcohol use [facility] 250 DO Work Phone: Start: 1965 Sex Assigned At Female F [facility] History of tobacco use Passive smoker [facility] Start: 07-14-2022 Tobacco use and exposure Smokeless tobacco non-user [facility] Medical Equipment Procedure Code Equipment Code Equipment Origin al Text Equipment Identifier Dates Stent Inlay Opti ma 7fr Taper [place] [employer] Phreecoat 24cm Ureteral - [id number] Start: 09-07-2022 Stent Inlay Opti ma 6fr Taper [place] [employer] Phreecoat 24cm Ureteral - [id number] Start: 10-12-2022 Functional Status Date Assessment Result Facility 07-07-2022 Functional Status N/A [facility] 06-11-2022 Functional Status No [facility] 04-17-2022 Functional Status No [facility] 03-31-2022 Functional Status N/A [facility] Clinical Notes 02-02-2022 to 04-26-2023 Bony Elizabeth RT(R) - 04/26/2023 3:30 PM Hanane Stewart RT(R) - 04/26/2023 2:30 PM Jenae Renteria RN - 10/21/2022 12:51 PM Michael Odonnell MD - 10/21/2022 11:52 AM EDT Note Date & Type Note Facility 04-26-2023 Note HNO ID: [id number] Author: Bony Elizabeth RT(R) Service: Radiology Author Type: Technologist Type: Progress Notes Filed: 04/26/2023 3:53 PM Note Text: Radiology Service Progress Note PATIENT NAME: Elizabeth Irvin DATE OF SERVICE: April 26, 2023 TIME: 3:53 PM PATIENT IDENTITY VERIFICATION COMPLETED USING TWO (2) IDENTIFIERS: Name and Date of confirmed by patient verbally. FALL SCREENING: Has the patient had 2 falls in the last year or 1 fall with injury or currently using an Ambulatory Assistive Device (Walker, Cane, Wheelchair, Crutches, etc.)? No PATIENT GENDER DATA: Female. status: : No status: NO. PATIENT RELEVANT IMPLANT DATA REVIEWED: Not Applicable RADIOLOGY DEPARTMENT: General X-ray: Exam(s) Completed: Abdomen X-Ray: Abdomen with Obliques PERIPHERAL IV DATA: Not applicable SIGNED BY: RT Rafaela(R) April 26, 2023 3:53 PM [facility] 04-26-2023 Note HNO ID: [id number] Author: Hanane Lau RT(R) Service: Radiology Author Type: Technologist Type: Progress Notes Filed: 04/26/2023 2:41 PM Note Text: Radiology Service Progress Note PATIENT NAME: Elizabeth Irvin DATE OF SERVICE: April 26, 2023 TIME: 2:41 PM PATIENT IDENTITY VERIFICATION COMPLETED USING TWO (2) IDENTIFIERS: Name and Date of confirmed by patient verbally. FALL SCREENING: Has the patient had 2 falls in the last year or 1 fall with injury or currently using an Ambulatory Assistive Device (Walker, Cane, Wheelchair, Crutches, etc.)? No PATIENT GENDER DATA: Female. status: status: N/A PATIENT RELEVANT IMPLANT DATA REVIEWED: Not Applicable RADIOLOGY DEPARTMENT: Ultrasound PERIPHERAL IV DATA: Not applicable SIGNED BY: Hanane Lau RDMS RVT April 26, 2023 2:41 PM [facility] 04-26-2023 History of Presen t illness Narrative Radiology Service Progress Note PATIENT NAME: Elizabeth Irvin DATE OF SERVICE: April 26, 2023 TIME: 3:53 PM PATIENT IDENTITY VERIFICATION COMPLETED USING TWO (2) IDENTIFIERS: Name and Date of confirmed by patient verbally. FALL SCREENING: Has the patient had 2 falls in the last year or 1 fall with injury or currently using an Ambulatory Assistive Device (Walker, Cane, Wheelchair, Crutches, etc.)? No PATIENT GENDER DATA: Female. status: : No status: NO. PATIENT RELEVANT IMPLANT DATA REVIEWED: Not Applicable RADIOLOGY DEPARTMENT: General X-ray: Exam(s) Completed: Abdomen X-Ray: Abdomen with Obliques PERIPHERAL IV DATA: Not applicable SIGNED BY: RT Rafaela([place]) April 26, 2023 3:53 PM documented in this encounter [facility] 04-26-2023 History of Presen t illness Narrative Radiology Service Progress Note PATIENT NAME: Elizabeth Irvin DATE OF SERVICE: April 26, 2023 TIME: 2:41 PM PATIENT IDENTITY VERIFICATION COMPLETED USING TWO (2) IDENTIFIERS: Name and Date of confirmed by patient verbally. FALL SCREENING: Has the patient had 2 falls in the last year or 1 fall with injury or currently using an Ambulatory Assistive Device (Walker, Cane, Wheelchair, Crutches, etc.)? No PATIENT GENDER DATA: Female. status: status: N/A PATIENT RELEVANT IMPLANT DATA REVIEWED: Not Applicable RADIOLOGY DEPARTMENT: Ultrasound PERIPHERAL IV DATA: Not applicable SIGNED BY: Hanane Lau RDMS RVT April 26, 2023 2:41 PM documented in this encounter [facility] 10-21-2022 Note HNO ID: [id number] Author: Dana Renteria RN Service: ? Author Type: Registered Nurse Type: Progress Notes Filed: 10/21/2022 12:53 PM Note Text: UNIVERSAL PROTOCOL / SAFETY CHECKLIST Procedure to be Performed: cystoscopy with stent extraction Sign In: A Moment of CARE was completed. Personnel directly involved with the procedure wore the appropriate PPE (Personal Protective Equipment). Patient/Surrogate Stated/Verified: PATIENT VERIFIED(optional for EMERGENT procedures): Patient name, Date of , Relevant allergies, and The intended procedure Time Out Communication: Intended patient and procedure match the source documents. Consent documented and matches the intended procedure. Relevant labs, photos, and/or imaging studies have been reviewed. No correct side/site applicable for marking and visibility. No medications required for procedure. Fire risk assessed and interventions discussed. No implant(s) inserted. Sign Out: SIGN OUT (optional for EMERGENT procedures): No specimen collected. Dana Renterai RN [facility] 10-21-2022 Note HNO ID: [id number] Author: Samy Odonnell MD Service: ? Author Type: Physician Type: Progress Notes Filed: 10/21/2022 12:53 PM Note Text: CYSTOSCOPY PROCEDURE [facility] NOTE Pertinent History and Physical Exam reviewed and is unchanged. Primary Diagnosis: Nephrolithiasis Procedure: Stent Extraction Informed Consent Discussed: Yes. Risks, benefits, alternatives and personnel discussed with patient who consents to proceed. Audible Time-Out: Yes Details of Procedure: TECHNIQUE: The procedure was fully explained to the patient, risks were reviewed. The patient was placed in the supine position. The genitalia were prepped with antiseptic soap per protocol, and the urethra was anesthetized with viscous 2% lidocaine. The flexible cystoscope was introduced into the urethra and advanced under direct vision with findings as outlined below. At the conclusion of the procedure, the cystoscope was withdrawn. Anesthetics given: 10 cc 2% Lidocaine-Urethral Operative Findings Urethra: Normal Bladder: Right stent removed without difficulty Radiologic Studies CT: N/A Urogram: N/A Urethrogram: N/A Cystogram: N/A Retrograde Pyelogram(s): None Ultrasound: None KUB: None Complications: None Recommendations: Discussed findings with patient, RTC in 6 wk for f/u (call me if probs), KUB at F/U, Renal Ultrasound at F/U, and Complete 24 hr urine stone panel prior to F/U Comments: well-tolerated; right mini-PCNL site well-healed; Post Procedure Evaluation Condition Post Procedure: satisfactory Post Procedure Medications: None Samy Odonnell MD Director, Surgical Stone Disease [facility] [place], [facility] Pager [phone] 10/21/2022 [facility] 10-21-2022 History of Presen t illness Narrative UNIVERSAL PROTOCOL / SAFETY CHECKLIST Procedure to be Performed: cystoscopy with stent extraction Sign In: A Moment of CARE was completed. Personnel directly involved with the procedure wore the appropriate PPE (Personal Protective Equipment). Patient/Surrogate Stated/Verified: PATIENT VERIFIED(optional for EMERGENT procedures): Patient name, Date of , Relevant allergies, and The intended procedure Time Out Communication: Intended patient and procedure match the source documents. Consent documented and matches the intended procedure. Relevant labs, photos, and/or imaging studies have been reviewed. No correct side/site applicable for marking and visibility. No medications required for procedure. Fire risk assessed and interventions discussed. No implant(s) inserted. Sign Out: SIGN OUT (optional for EMERGENT procedures): No specimen collected. Dana Renteria RN CYSTOSCOPY PROCEDURE [facility] NOTE Pertinent History and Physical Exam reviewed and is unchanged. Primary Diagnosis: Nephrolithiasis Procedure: Stent Extraction Informed Consent Discussed: Yes. Risks, benefits, alternatives and personnel discussed with patient who consents to proceed. Audible Time-Out: Yes Details of Procedure: TECHNIQUE: The procedure was fully explained to the patient, risks were reviewed. The patient was placed in the supine position. The genitalia were prepped with antiseptic soap per protocol, and the urethra was anesthetized with viscous 2% lidocaine. The flexible cystoscope was introduced into the urethra and advanced under direct vision with findings as outlined below. At the conclusion of the procedure, the cystoscope was withdrawn. Anesthetics given: 10 cc 2% Lidocaine-Urethral Operative Findings Urethra: Normal Bladder: Right stent removed without difficulty Radiologic Studies CT: N/A Urogram: N/A Urethrogram: N/A Cystogram: N/A Retrograde Pyelogram(s): None Ultrasound: None KUB: None Complications: None Recommendations: Discussed findings with patient, RTC in 6 wk for f/u (call me if probs), KUB at F/U, Renal Ultrasound at F/U, and Complete 24 hr urine stone panel prior to F/U Comments: well-tolerated; right mini-PCNL site well-healed; Post Procedure Evaluation Condition Post Procedure: satisfactory Post Procedure Medications: None Samy Odonnell MD Director, Surgical Stone Disease [facility] Pager [phone] 10/21/2022 documented in this encounter [facility] 10-21-2022 Nurse Note Actual procedure/procedure scheduled: Yes Performing provider/scheduled provider: Yes Patient was roomed in: Q9- 05 Pets Salesperson offered:Patient declines Patient arrived in the room at: 1155 Patient ready for procedure: 1210 The procedure started at ( Time Only): 1240 The procedure ended at: 1241 Was the procedure delayed: Yes: Provider late: Provider with other patient on Q9 The patient left the procedure room at: 1251 Dana Renteria RN PRE PROCEDURE ASSESSMENT- Cysto with stent extraction Procedure Indication: Stent Extraction Latex Allergy: No Allergies reviewed and updated. Yes Heart valve replacement: No Joint replacement: No Back Office UA otained: no PROCEDURE PREP-Cysto with stent extraction Patient ID with two(2)identifiers verified by: Dana Renteria RN Pre-Procedure Antibiotics: None taken at home nor prior to procedure Patient Prep: Betadine Scrub to perineum and placement of Sterile Drape. COMPLETED Anesthetic Given:10 cc 2% Lidocaine jelly Dana Renteria RN UNIVERSAL PROTOCOL / SAFETY CHECKLIST Procedure to be performed: Stent Extraction Sign in Communication: Completed Time Out: Team Confirms the Correct Patient, Correct Procedure, Correct Site and Site Marking, Correct Position (if applicable). Sign Out Discussion: Completed Dana Renteria RN POST PROCEDURE NURSE ASSESSMENT Present along with physician during procedure exam. Dana Renteria RN Instruction sheet given and reviewed and patient verbalizes understanding: yes Current pain intensity is 0 on a 0-10 pain scale. Dana Renteria RN AMBULATORY PATIENT EDUCATION THE FOLLOWING WAS EVALUATED Motivation To Learn: Interested Family/Significant Other Support: None - Unavailable/disinterested Cognitive Ability: Alert/Oriented Method of Instruction: Individual instruction Written instruction - handouts Verbal instruction The Following Influencing Factors Were Barriers To This Education Session: None The Following Physical Limitations Were Barriers To This Education Session: None Instruction Provided To: Patient Material [employer] Present: not applicable Discipline: Nursing Learning Topic: SURVIVAL SKILLS: Complication Prevention Symptom Management Patient Evaluation: Verbalizes understanding: Yes Supplemental Material Given: Written Material Instructed By Dana Renteria RN In Department Urology . documented in this encounter [facility] 10-12-2022 Note HNO ID: [id number] Author: ION Hopkins Service: ? Author Type: Student Type: Anesthesia Procedure Notes Filed: 10/12/2022 8:26 AM Note Text: ANESTHESIOLOGY PROCEDURE NOTE Airway General Information Procedure Start Time/Medication Administration: 10/12/2022 7:48 AM Patient location during procedure: OR Timeout Performed Pre-procedure: timeout performed Consent Obtained: Yes Patient identity confirmed: arm band and patient Staffing SRNA: ION [facility] Performed by: ION Indications and Patient Condition Indications for airway management: anesthesia Preoxygenated: yes anesthesia circuit Patient position: sniffing Method: asleep Cricoid Pressure: Yes Final Airway Details Final airway type: endotracheal airway Final Endotracheal Airway: ETT Cuffed: yes Successful intubation technique: direct laryngoscopy Endotracheal tube insertion site: oral Blade: Miley Blade size: #3 ETT size (mm): 7.0 Measured from: lips Measurement (cm): 21 Placement verified by: capnometry Cormack-Lehane Classification: grade IIa - partial view of glottis Number of attempts at approach: 1 SIGNATURE: ION [facility] PATIENT NAME: Elizabeth Irvin DATE: October 12, 2022 TIME: 8:17 AM CSN: [id number] [facility] 09-28-2022 Note HNO ID: [id number] Author: Marley Peres PA-C Service: ? Author Type: Physician Tar Kettle Runner Type: Progress Notes Filed: 09/28/2022 2:56 PM Note Text: [facility] PRE-OP NOTE Elizabeth Irvin is a 56 year old female. Pre-op Date: September 28, 2022 Date of Procedure: 10/12/22 Procedure/Surgery: MINI PERC NEPHROLITHOTOMY LITHOTRIPSY,STONE EXTRACTION,ANTEGRADE URETEROSCOPY,STENT PLACEMENT WHEN PERFORMED INCD IMAGING UP TO 2cm Laterality: Right Diagnosis: Nephrolithiasis Primary Surgeon: MD Blas, Samy BP 119/79 (BP Site: Left Arm, BP Position: Sitting, BP Cuff Size: Regular Adult) Pulse 75 Ht 160 cm (5' 3 ) Wt 60.8 kg (134 lb) BMI 23.74 kg/m? Pain Assessment: Are you currently having pain? No 0 on a scale of 0 to 10 Surgical Guide Book Status: Patient has been given guide previously, but guide is at home. Allergies Reviewed: Yes Medications Reviewed: Yes Is patient currently on oral steroids?: No Has the patient had a UTI in the past month?: No. Does the patient have any artificial joints (last 2 years), metal parts, pacemakers or cardiac/ureteral stents in place?: No Does the patient have diabetes?: No Is the patient routinely taking anticoagulants?: No. Can the patient have an IV put in either arm?: Yes Urine Dip Complete?: Yes URINE CULTURE COMPLETE?: Yes Ostomy/Stoma Nurse appointment made/completed: N/A IMPACT/Medical Clearance: Cleared per IMPACT - N/A [facility] Clinic: Cleared per [facility] - N/A All testing on cureform has been scheduled: Yes Consent Signed: Consent not in Epic. DOS Orders Placed and Signed: Yes. Pre-op HANDP Done by Physician Tar Kettle Runner: Yes. PATIENT INSTRUCTIONS FOR SURGERY 1.) DO NOT HAVE ANYTHING TO EAT OR DRINK AFTER MIDNIGHT THE DAY BEFORE SURGERY except for certain morning medications as instructed by the doctor. Candy, mints, gum, and smoking are NOT permitted. If the surgery is scheduled for the afternoon, you may have water during the morning of surgery if permitted by your surgeon. 2.) Medications to be taken on the morning of surgery with a few sips of water: repinirole, duloxetine 3.) Please bring all your prescribed inhalers (if you have any you normally take) to the hospital. 4.) Arrival time: Call for arrival. 5.) Prep given: No 6.) Lovenox instructions given: N/A 7.) Patient reminded that surgery time provided day before surgery is tentative based on potential changes with transplants. Recommendations: This patient is optimally prepared for surgery. Marley Gutierrez PA-C Electronically signed [facility] 09-28-2022 Note Patient Outreach (UR OLMN) ELIZABETH IRVIN ([id number]) 1965 F Date Time Provider Department 09/28/22 MARLEY CHOE During your visit today, we recorded the following information about you: Allergies As of Date: 09/28/2022 Noted Allergy Reaction PREDNISONE 04/24/2022 4 - Hives VALACYCLOVIR 04/24/2022 4 - Hives Date Reviewed: 09/28/2022 Reviewed by: Marley Peres PA-C - Fully Assessed Visit Diagnosis:Screening for genitourinary condition [Z13.89] Order(s):URINALYSIS, REFLEX MICROSCOPIC [[id number]] Order #: [id number] #:[id number] Prescriptions as of 10/01/2022 - cephALEXin (KEFLEX) 500 mg capsule Take 1 capsule by mouth three times daily. - tamsulosin (FLOMAX) 0.4 mg Take 1 capsule by mouth once daily 30 minutes after the same meal each day. - oxybutynin (DITROPAN) 5 mg tablet Take 1 tablet by mouth three times daily as needed for bladder spasm - docusate sodium (COLACE) 100 mg capsule Take 1 capsule by mouth twice daily. - lisinopril (ZESTRIL, PRINIVIL) 20 mg tablet Take by mouth. - DULoxetine (CYMBALTA) 60 mg capsule - rOPINIRole (REQUIP) 1 mg tablet - OZEMPIC 0.25 mg or 0.5 mg(2 mg/1.5 mL) pen Problem List As Of Date: 09/28/2022 (None) Encounter Status:Closed by MELANI SALAZAR on 10/01/22 [facility] 09-28-2022 History and physical note UROLOGY SURGICAL H&P SERVICE DATE: 09/28/2022 SERVICE TIME: 1:30PM REFERRING PROVIDER: No referring provider defined for this encounter. PCP: No primary care provider on file. GENDER: Female SUBJECTIVE CHIEF COMPLAINT: Pre-op exam HISTORY OF PRESENT ILLNESS: Ms. Irvin is a 56 year old female who presents for preoperative exam prior to Right MINI PERC NEPHROLITHOTOMY LITHOTRIPSY,STONE EXTRACTION,ANTEGRADE URETEROSCOPY,STENT PLACEMENT WHEN PERFORMED INCD IMAGING UP TO 2cm with Dr. Odonnell on 10/12/22. FUNCTIONAL STATUS: Walk a block or two on level ground (2.75 METs) Do moderate work around the house such as vacuuming, sweeping floors, or carrying in groceries (3.50 METs) Do yardwork, such as raking leaves, weeding,or pushing a power mower (4.50 METs) Climb a flight of stairs or walk up a hill (5.50 METs) History reviewed. No pertinent past medical history. History reviewed. No pertinent surgical history. History reviewed. No pertinent family history. Social History Tobacco Use Smoking status: Never Passive exposure: Current Smokeless tobacco: Never REVIEW OF SYSTEMS: General: General: Well developed, well nourished. No acute distress HEENT: Negative for sore throat, difficulty swallowing. Negative for frequent or significant headaches, changes in vision or hearing. Cardiovascular: + HTN. No history of angina, CHF, CT, cardiac surgery of stents. Respiratory: Negative for current cough, dyspnea. No hx of pneumonia in the past six weeks Gastrointestinal: + gastric bypasshx. No history of GERD, PUD, abd pain, difficulty swallowing, GI bleed. Renal: Negative for renal failure and No history of dialysis Musculoskeletal: Negative for joint pain or swelling, back pain or muscle pain. Skin: Negative for lesions, rash and itching. Psychological: No history of psychiatric symptoms or problems. Neurologic: No history of TIA's, stroke, [employer] [place] tumor, impaired sensorium, hemiplegia or paraplegia No neurological symptoms or problems. Hematology/Oncology: No history of bleeding or clotting disorder. Pt is not taking anti-coagulation or platelet medications. No history of hematological symptoms or problems. Endocrine: + diabetes. Negative for excessive sweating, thirst or hunger PHYSICAL EXAM: General Appearance/ Constitutional: Well developed, well nourished, and in no apparent distress Head and Neck normal, no jugular venous extension, no thyromegaly, and no palpable mass Eyes: Pupils are equally round and reactive to light. Extraocular movements are intact. Respiratory: Clear to auscultation & percussion Cardiovascular: Normal, Regular rate and rhythm, and No murmurs GI: Soft, Non-tender, No masses, hepatosplenomegaly, and No lymphadenopathy Extremities: Radial and pedal pulses +2, no edema, extremities WNL Back: Normal back and mobility Neurological: Normal cognition and motor skills. Skin: Color, texture, turgor normal. VITALS: BP 119/79 (BP Site: Left Arm, BP Position: Sitting, BP Cuff Size: Regular Adult) Pulse 75 Ht 160 cm (5' 3 ) Wt 60.8 kg (134 lb) BMI 23.74 kg/m Temperature Max: @TMAXREFRESH(24)@ ALLERGIES: ALLERGIES Allergen Reactions Prednisone Hives Valacyclovir Hives LABS: BUN (mg/dL) Date Value 09/28/2022 20 07/14/2022 28 Creatinine (mg/dL) Date Value 09/28/2022 1.62 07/14/2022 2.85 No results found for: PSA Glucose, Urine (no units) Date Value 09/07/2022 Negative Bilirubin, Urine (no units) Date Value 09/07/2022 Negative Ketones, Urine (no units) Date Value 09/07/2022 Negative Specific [place], Ur (no units) Date Value 09/07/2022 1.014 Hemoglobin/Blood,Ur (no units) Date Value 09/07/2022 Trace pH, Urine (no units) Date Value 09/07/2022 6.0 Protein, Urine (no units) Date Value 09/07/2022 Trace Nitrites (no units) Date Value 09/07/2022 Negative WBC, Urine (no units) Date Value 09/07/2022 >25 /HPF (A) Color (no units) Date Value 09/07/2022 Yellow Clarity (no units) Date Value 09/07/2022 Cloudy (A) MEDICATIONS: (Not in a hospital admission) Current Outpatient Medications Medication Sig cephALEXin (KEFLEX) 500 mg capsule Take 1 capsule by mouth three times daily. tamsulosin (FLOMAX) 0.4 mg Take 1 capsule by mouth once daily 30 minutes after the same meal each day. oxybutynin (DITROPAN) 5 mg tablet Take 1 tablet by mouth three times daily as needed for bladder spasm docusate sodium (COLACE) 100 mg capsule Take 1 capsule by mouth twice daily. lisinopril (ZESTRIL, PRINIVIL) 20 mg tablet Take by mouth. DULoxetine (CYMBALTA) 60 mg capsule rOPINIRole (REQUIP) 1 mg tablet OZEMPIC 0.25 mg or 0.5 mg(2 mg/1.5 mL) pen No current facility-administered medications for this visit. DIAGNOSIS, ASSESSMENT AND PLAN There are no active hospital problems to display for this patient. Assessment & Plan: Proceed to surgery. SIGNATURE: Marley Gutierrez PA-C PATIENT NAME: Elizabeth Irvin DATE: September 28, 2022 TIME: 1:54 PM PAGER/CONTACT #: documented in this encounter [facility] 09-28-2022 History of Presen t illness Narrative [facility] PRE-OP NOTE Elizabeth Irvin is a 56 year old female. Pre-op Date: September 28, 2022 Date of Procedure: 10/12/22 Procedure/Surgery: MINI PERC NEPHROLITHOTOMY LITHOTRIPSY,STONE EXTRACTION,ANTEGRADE URETEROSCOPY,STENT PLACEMENT WHEN PERFORMED INCD IMAGING UP TO 2cm Laterality: Right Diagnosis: Nephrolithiasis Primary Surgeon: MD Blas, Samy BP 119/79 (BP Site: Left Arm, BP Position: Sitting, BP Cuff Size: Regular Adult) Pulse 75 Ht 160 cm (5' 3 ) Wt 60.8 kg (134 lb) BMI 23.74 kg/m Pain Assessment: Are you currently having pain? No 0 on a scale of 0 to 10 Surgical Guide Book Status: Patient has been given guide previously, but guide is at home. Allergies Reviewed: Yes Medications Reviewed: Yes Is patient currently on oral steroids?: No Has the patient had a UTI in the past month?: No. Does the patient have any artificial joints (last 2 years), metal parts, pacemakers or cardiac/ureteral stents in place?: No Does the patient have diabetes?: No Is the patient routinely taking anticoagulants?: No. Can the patient have an IV put in either arm?: Yes Urine Dip Complete?: Yes URINE CULTURE COMPLETE?: Yes Ostomy/Stoma Nurse appointment made/completed: N/A IMPACT/Medical Clearance: Cleared per IMPACT - N/A [facility] Clinic: Cleared per P[facility] - N/A All testing on cureform has been scheduled: Yes Consent Signed: Consent not in Epic. DOS Orders Placed and Signed: Yes. Pre-op H&P Done by Physician Tar Kettle Runner: Yes. PATIENT INSTRUCTIONS FOR SURGERY 1.) DO NOT HAVE ANYTHING TO EAT OR DRINK AFTER MIDNIGHT THE DAY BEFORE SURGERY except for certain morning medications as instructed by the doctor. Candy, mints, gum, and smoking are NOT permitted. If the surgery is scheduled for the afternoon, you may have water during the morning of surgery if permitted by your surgeon. 2.) Medications to be taken on the morning of surgery with a few sips of water: repinirole, duloxetine 3.) Please bring all your prescribed inhalers (if you have any you normally take) to the hospital. 4.) Arrival time: Call for arrival. 5.) Prep given: No 6.) Lovenox instructions given: N/A 7.) Patient reminded that surgery time provided day before surgery is tentative based on potential changes with transplants. Recommendations: This patient is optimally prepared for surgery. Marley Gutierrez PA-C documented in this encounter [facility] 09-16-2022 Note HNO ID: [id number] Author: Dede Story RN Service: ? Author Type: Registered Nurse Type: Progress Notes Filed: 09/16/2022 12:30 PM Note Text: UNIVERSAL PROTOCOL / SAFETY CHECKLIST Procedure to be Performed: Stent Extraction Sign In: A Moment of CARE was completed. Personnel directly involved with the procedure wore the appropriate PPE (Personal Protective Equipment). Patient/Surrogate Stated/Verified: PATIENT VERIFIED(optional for EMERGENT procedures): Patient name, Date of , Relevant allergies, and The intended procedure Time Out Communication: Intended patient and procedure match the source documents. Consent documented and matches the intended procedure. Relevant labs, photos, and/or imaging studies have been reviewed. No correct side/site applicable for marking and visibility. Medications required for procedure verified. Fire risk assessed and interventions discussed. No implant(s) inserted. Sign Out: SIGN OUT (optional for EMERGENT procedures): No specimen collected. All instruments, equipment, possible retained foreign bodies accounted for. Post-procedure follow-up management communicated and Plan of Care Visit completed when applicable. Dede Story RN [facility] 09-16-2022 Note HNO ID: [id number] Author: Samy Odonnell MD Service: ? Author Type: Physician Type: Progress Notes Filed: 09/16/2022 12:30 PM Note Text: CYSTOSCOPY PROCEDURE Ervin'S ADRIANA NOTE Pertinent History and Physical Exam reviewed and is unchanged. Primary Diagnosis: Nephrolithiasis Procedure: Stent Extraction Informed Consent Discussed: Yes. Risks, benefits, alternatives and personnel discussed with patient who consents to proceed. Audible Time-Out: Yes Details of Procedure: TECHNIQUE: The procedure was fully explained to the patient, risks were reviewed. The patient was placed in the supine position. The genitalia were prepped with antiseptic soap per protocol, and the urethra was anesthetized with viscous 2% lidocaine. The flexible cystoscope was introduced into the urethra and advanced under direct vision with findings as outlined below. At the conclusion of the procedure, the cystoscope was withdrawn. Anesthetics given: 10 cc 2% Lidocaine-Urethral Operative Findings Urethra: Normal Bladder: Left stent removed without difficulty Radiologic Studies CT: N/A Urogram: N/A Urethrogram: N/A Cystogram: N/A Retrograde Pyelogram(s): None Ultrasound: None KUB: None Complications: None Recommendations: Discussed findings with patient and set up right mini-PCNL (discussed with patient at length). Comments: well-tolerated Post Procedure Evaluation Condition Post Procedure: satisfactory Post Procedure Medications: Keflex 500 mg tid for 3 days Samy Odonnell MD Director, Surgical Stone Disease [facility] [place], [facility] Pager [phone] 09/16/2022 [facility] 09-16-2022 History of Presen t illness Narrative UNIVERSAL PROTOCOL / SAFETY CHECKLIST Procedure to be Performed: Stent Extraction Sign In: A Moment of CARE was completed. Personnel directly involved with the procedure wore the appropriate PPE (Personal Protective Equipment). Patient/Surrogate Stated/Verified: PATIENT VERIFIED(optional for EMERGENT procedures): Patient name, Date of , Relevant allergies, and The intended procedure Time Out Communication: Intended patient and procedure match the source documents. Consent documented and matches the intended procedure. Relevant labs, photos, and/or imaging studies have been reviewed. No correct side/site applicable for marking and visibility. Medications required for procedure verified. Fire risk assessed and interventions discussed. No implant(s) inserted. Sign Out: SIGN OUT (optional for EMERGENT procedures): No specimen collected. All instruments, equipment, possible retained foreign bodies accounted for. Post-procedure follow-up management communicated and Plan of Care Visit completed when applicable. Dede Story RN CYSTOSCOPY PROCEDURE Ervin'Azucena WRIGHT NOTE Pertinent History and Physical Exam reviewed and is unchanged. Primary Diagnosis: Nephrolithiasis Procedure: Stent Extraction Informed Consent Discussed: Yes. Risks, benefits, alternatives and personnel discussed with patient who consents to proceed. Audible Time-Out: Yes Details of Procedure: TECHNIQUE: The procedure was fully explained to the patient, risks were reviewed. The patient was placed in the supine position. The genitalia were prepped with antiseptic soap per protocol, and the urethra was anesthetized with viscous 2% lidocaine. The flexible cystoscope was introduced into the urethra and advanced under direct vision with findings as outlined below. At the conclusion of the procedure, the cystoscope was withdrawn. Anesthetics given: 10 cc 2% Lidocaine-Urethral Operative Findings Urethra: Normal Bladder: Left stent removed without difficulty Radiologic Studies CT: N/A Urogram: N/A Urethrogram: N/A Cystogram: N/A Retrograde Pyelogram(s): None Ultrasound: None KUB: None Complications: None Recommendations: Discussed findings with patient and set up right mini-PCNL (discussed with patient at length). Comments: well-tolerated Post Procedure Evaluation Condition Post Procedure: satisfactory Post Procedure Medications: Keflex 500 mg tid for 3 days Samy Odonnell MD Director, Surgical Stone Disease [facility] [place] Pager [phone] 09/16/2022 documented in this encounter [facility] 09-16-2022 Nurse Note Actual procedure/procedure scheduled: Yes Performing provider/scheduled provider: Yes Patient was roomed in: Q9- 09 Pets Salesperson offered: Patient declines Patient arrived in the room at: 1156 Patient ready for procedure: 1203 The procedure started at ( Time Only): 1212 The procedure ended at: 1215 Was the procedure delayed: No The patient left the procedure room at: 1225 Dede Story RN PRE PROCEDURE ASSESSMENT - Cysto / Stent Ext Procedure Indication: Stent Extraction Latex Allergy: No Allergies reviewed and updated. Yes Heart valve replacement: No Joint replacement: No Back Office UA otained: not applicable PROCEDURE PREP - Cysto / Stent Ext Patient ID with two(2)identifiers verified by: Dede Story RN Pre-Procedure Antibiotics: None taken at home nor prior to procedure Patient Prep: Betadine Scrub to perineum and placement of Sterile Drape. COMPLETED Anesthetic Given: 10 cc 2% Lidocaine jelly Dede Story RN UNIVERSAL PROTOCOL / SAFETY CHECKLIST Procedure to be performed: Stent Extraction Sign in Communication: Completed Time Out: Team Confirms the Correct Patient, Correct Procedure, Correct Site and Site Marking, Correct Position (if applicable). Sign Out Discussion: Completed Dede Story RN POST PROCEDURE NURSE ASSESSMENT Present along with physician during procedure exam. Dede Story RN Instruction sheet given and reviewed and patient verbalizes understanding: yes Current pain intensity is 0 on a 0-10 pain scale. Dede Story RN AMBULATORY PATIENT EDUCATION THE FOLLOWING WAS EVALUATED Motivation To Learn: Interested Family/Significant Other Support: High - Very involved in pt care Cognitive Ability: Alert/Oriented Method of Instruction: Written instruction - handouts Verbal instruction The Following Influencing Factors Were Barriers To This Education Session: None The Following Physical Limitations Were Barriers To This Education Session: None Instruction Provided To: Patient Material Stockkeeper Yard Present: not applicable Discipline: Nursing Learning Topic: SURVIVAL SKILLS: Complication Prevention Pain Management Symptom Management Patient Evaluation: Verbalizes understanding: Yes Supplemental Material Given: None Instructed By Dede Story RN In Department Urology . documented in this encounter [facility] 09-07-2022 Note HNO ID: [id number] Author: Fernanda Joseph APRN.CELL COVERER Service: ? Author Type: Nurse Diplomatic Courier Type: Anesthesia Procedure Notes Filed: 09/07/2022 1:55 PM Note Text: ANESTHESIOLOGY PROCEDURE NOTE Airway General Information Procedure Start Time/Medication Administration: 09/07/2022 1:38 PM Patient location during procedure: OR Timeout Performed Pre-procedure: timeout performed Consent Obtained: Yes Patient identity confirmed: arm band and patient Staffing CELL COVERER: Fernanda Joseph APRN.CELL COVERER Indications and Patient Condition Indications for airway management: anesthesia Preoxygenated: yes anesthesia circuit Patient position: sniffing Method: asleep Cricoid Pressure: No Manual In-Line Stabilization: No Difficult Mask: No Final Airway Details Final airway type: endotracheal airway Final Endotracheal Airway: ETT Cuffed: yes Successful intubation technique: video laryngoscopy Devices used: Innography Endotracheal tube insertion site: oral Blade size: #4 ETT size (mm): 7.0 Measured from: lips Measurement (cm): 20 Placement verified by: capnometry Cormack-Lehane Classification: grade I - full view of glottis Number of attempts at approach: 1 Failed airway: no Unrecognized esophageal intubation: no Airway not difficult SIGNATURE: Fernanda Joseph APRN.CELL COVERER PATIENT NAME: Elizabeth Irvin DATE: September 07, 2022 TIME: 1:54 PM CSN: [id number] [facility] 09-07-2022 Note Patient Outreach (UR OLMN) ELIZABETH IRVIN ([id number]) 1965 F Date Time Provider Department 09/07/22 MARLEY CHOE During your visit today, we recorded the following information about you: Allergies As of Date: 09/07/2022 Noted Allergy Reaction PREDNISONE 04/24/2022 4 - Hives VALACYCLOVIR 04/24/2022 4 - Hives Date Reviewed: 09/07/2022 Reviewed by: Zelalem Pichardo RN - Fully Assessed Visit Diagnosis:Screening for genitourinary condition [Z13.89] Order(s):URINALYSIS, REFLEX MICROSCOPIC [[id number]] Order #: [id number]. #:[id number] Prescriptions as of 09/10/2022 - tamsulosin (FLOMAX) 0.4 mg Take 1 capsule by mouth once daily 30 minutes after the same meal each day. - oxybutynin (DITROPAN) 5 mg tablet Take 1 tablet by mouth three times daily as needed for bladder spasm - cephALEXin (KEFLEX) 500 mg capsule Take 1 capsule by mouth three times daily for 3 days. - oxyCODONE IR (ROXICODONE) 5 mg immediate release tablet Take 1 tablet by mouth every 6 hours as needed for pain for up to 3 days. - docusate sodium (COLACE) 100 mg capsule Take 1 capsule by mouth twice daily. - lisinopril (ZESTRIL, PRINIVIL) 20 mg tablet Take by mouth. - DULoxetine (CYMBALTA) 60 mg capsule - rOPINIRole (REQUIP) 1 mg tablet - OZEMPIC 0.25 mg or 0.5 mg(2 mg/1.5 mL) pen Problem List As Of Date: 09/07/2022 (None) Encounter Status:Closed by KakKstati, TitanFileUSER on 09/10/22 [facility] 09-07-2022 Note HNO ID: [id number] Author: Marley Peres PA-C Service: ? Author Type: Physician Tar Kettle Runner Type: Progress Notes Filed: 09/07/2022 10:06 AM Note Text: Chief complaint: Kidney stones Elizabeth Irvin is a 56 year old female who presents today for kidney stone management and prevention counseling. Presents today for preoprative exam (see HANDP), but recently completed completed [facility]ol[facility] and metabolic lab work, the latter showing elevated PTH. Body mass index is 24.38 kg/m?. History reviewed. No pertinent past medical history. History reviewed. No pertinent surgical history. History reviewed. No pertinent family history. Social History Tobacco Use Smoking status: Never Passive exposure: Current Smokeless tobacco: Never Current Outpatient Medications on File Prior to Visit Medication Sig lisinopril (ZESTRIL, PRINIVIL) 20 mg tablet Take by mouth. DULoxetine (CYMBALTA) 60 mg capsule rOPINIRole (REQUIP) 1 mg tablet OZEMPIC 0.25 mg or 0.5 mg(2 mg/1.5 mL) pen No current facility-administered medications on file prior to visit. ALLERGIES Allergen Reactions Prednisone Hives Valacyclovir Hives Appointment on 08/18/2022 Component Date Value Ref Range Status Culture, Urine 08/18/2022 10,000 -<50,000 CFU/ml Mixed microbiota (A) Final Comment: No further workup. Mixed microbiota can be due to urine contamination with skin bacteria at time of collection or presence of a long-term urinary catheter. If a new culture is needed, please consider re-education of the patient on proper midstream co llection technique or straight catheterization for urine collection. Color 08/18/2022 Light Yellow Yellow Final Clarity 08/18/2022 Cloudy (A) Clear Final Glucose, Urine 08/18/2022 Negative Trace, Negative Final Bilirubin, Urine 08/18/2022 Negative Negative Final Ketones, Urine 08/18/2022 Negative Trace, Negative Final Specific [place], Ur 08/18/2022 1.016 1.005 - 1.030 Final Hemoglobin/Blood,Ur 08/18/2022 3+ (A) Negative, Trace Final pH, Urine 08/18/2022 6.0 5.0 - 8.0 Final Protein, Urine 08/18/2022 1+ (A) Trace, Negative Final Urobilinogen 08/18/2022 Negative Negative Final Nitrites 08/18/2022 Negative Negative Final Leuk Esterase 08/18/2022 500 Nicholas/uL (A) Negative, 25 Nicholas/uL Final WBC, Urine 08/18/2022 >25 /HPF (A) 0-5 /HPF Final RBC, Urine 08/18/2022 >25 /HPF (A) 0-3 /HPF Final Bacteria 08/18/2022 Rare (A) None Seen /HPF Final Squamous Epithelial Cells 08/18/2022 Few /HPF Final Stone Panel/ [facility]: Component Latest Ref Rng AND Units 08/14/2022 24 hr Sulfate 20 - 80 mEq/d 11 (L) 24 hr Chloride 70 - 250 mmol/d 162 24 hr Ammonium 15 - 60 mmol/d 23 24 hr Potassium 20 - 100 mmol/d 27 24 hr Sodium 50 - 150 mmol/d 157 (H) 24 hr Phosphorus 0.60 - 1.20 g/d 0.650 24 hr Urea Nitrogen 6.00 - 14.00 g/d 5.69 (L) 24 hr Magnesium 30 - 120 mg/d 115 Protein Catabolic Rate 0.8 - 1.4 g/kg/d 0.7 (L) 24 hr Uric Acid <0.750 g/d 0.340 Urine pH 5.800 - 6.200 5.606 (L) 24 hr Calcium <200 mg/d 82 24 hr Oxlate 20 - 40 mg/d 50 (H) 24 hr Citrate >550 mg/d <21 (L) Urine Volume 0.50 - 4.00 L/d 1.39 Supersaturation CaOx 6.00 - 10.00 6.57 Supersaturation CaP 0.50 - 2.00 0.24 (L) Supersaturation Uric Acid <1.00 0.96 24 hr Creatinine mg/d 1,033 24 hr Creatinine per Kilogram Body Weight 8.7 - 20.3 mg/d/kg 16.3 24 hr Calcium per Kilogram Body Weight <4.0 mg/d/kg 1.3 24 hr Calcium per 24 hr Creatinine 51 - 262 mg/g 80 24 hr Urine Comments Comments CYSTINE SCREEN Negative Component Latest Ref Rng AND Units 07/14/2022 PTH, Intact 15 - 65 pg/mL 125 (H) Vitamin D 25 Hydroxy 31.0 - 80.0 ng/mL 41.8 Uric Acid 2.5 - 6.6 mg/dL 6.7 (H) Assessment/Plan: Z01.818 Preop examination (primary encounter diagnosis) N20.0 Nephrolithiasis E87.0 Hypernatriuria R82.992 Hyperoxaluria R82.991 Hypocitraturia E72.9 Aciduria (HCC) R34 Urine volume deficient E34.9 Elevated parathyroid hormone - Emphasis on increasing fluid intake, decreasing sodium intake, increasing dietary citrus as tolerable, and decreasing high-oxalate foods and pair with calcium rich foods - New serum PTH ordered to reassess. If still elevated, will refer to Endocrinology. Reviewed recent 24 hour urine study and discussed strategies for stone prevention. Low urine volume - Recommend increasing your fluid intake to 2.5-3 L/day or 80-100 fluid oz/day. Not only increase fluids during the day but also drink 1-2 glasses of water before bed, get up at least once through the night to urinate, and then drink another glass of water before returning to sleep. Hypocitraturia - Recommend increasing dietary citrate intake. Adding more fruits AND vegetables to your diet; in particular citrus fruits like delio, limes, oranges, melons and tomatoes. Hyperoxaluria - Recommend a low oxalate di (more content not included)... [facility] 09-07-2022 History of Presen t illness Narrative Chief complaint: Kidney stones Elizabeth Irvin is a 56 year old female who presents today for kidney stone management and prevention counseling. Presents today for preoprative exam (see H&P), but recently completed completed [facility]olink and metabolic lab work, the latter showing elevated PTH. Body mass index is 24.38 kg/m . History reviewed. No pertinent past medical history. History reviewed. No pertinent surgical history. History reviewed. No pertinent family history. Social History Tobacco Use Smoking status: Never Passive exposure: Current Smokeless tobacco: Never Current Outpatient Medications on File Prior to Visit Medication Sig lisinopril (ZESTRIL, PRINIVIL) 20 mg tablet Take by mouth. DULoxetine (CYMBALTA) 60 mg capsule rOPINIRole (REQUIP) 1 mg tablet OZEMPIC 0.25 mg or 0.5 mg(2 mg/1.5 mL) pen No current facility-administered medications on file prior to visit. ALLERGIES Allergen Reactions Prednisone Hives Valacyclovir Hives Appointment on 08/18/2022 Component Date Value Ref Range Status Culture, Urine 08/18/2022 10,000 -<50,000 CFU/ml Mixed microbiota (A) Final Comment: No further workup. Mixed microbiota can be due to urine contamination with skin bacteria at time of collection or presence of a long-term urinary catheter. If a new culture is needed, please consider re-education of the patient on proper midstream co llection technique or straight catheterization for urine collection. Color 08/18/2022 Light Yellow Yellow Final Clarity 08/18/2022 Cloudy (A) Clear Final Glucose, Urine 08/18/2022 Negative Trace, Negative Final Bilirubin, Urine 08/18/2022 Negative Negative Final Ketones, Urine 08/18/2022 Negative Trace, Negative Final Specific [place], Ur 08/18/2022 1.016 1.005 - 1.030 Final Hemoglobin/Blood,Ur 08/18/2022 3+ (A) Negative, Trace Final pH, Urine 08/18/2022 6.0 5.0 - 8.0 Final Protein, Urine 08/18/2022 1+ (A) Trace, Negative Final Urobilinogen 08/18/2022 Negative Negative Final Nitrites 08/18/2022 Negative Negative Final Leuk Esterase 08/18/2022 500 Nicholas/uL (A) Negative, 25 Nicholas/uL Final WBC, Urine 08/18/2022 >25 /HPF (A) 0-5 /HPF Final RBC, Urine 08/18/2022 >25 /HPF (A) 0-3 /HPF Final Bacteria 08/18/2022 Rare (A) None Seen /HPF Final Squamous Epithelial Cells 08/18/2022 Few /HPF Final Stone Panel/ [facility]: Component Latest Ref Rng & Units 08/14/2022 24 hr Sulfate 20 - 80 mEq/d 11 (L) 24 hr Chloride 70 - 250 mmol/d 162 24 hr Ammonium 15 - 60 mmol/d 23 24 hr Potassium 20 - 100 mmol/d 27 24 hr Sodium 50 - 150 mmol/d 157 (H) 24 hr Phosphorus 0.60 - 1.20 g/d 0.650 24 hr Urea Nitrogen 6.00 - 14.00 g/d 5.69 (L) 24 hr Magnesium 30 - 120 mg/d 115 Protein Catabolic Rate 0.8 - 1.4 g/kg/d 0.7 (L) 24 hr Uric Acid <0.750 g/d 0.340 Urine pH 5.800 - 6.200 5.606 (L) 24 hr Calcium <200 mg/d 82 24 hr Oxlate 20 - 40 mg/d 50 (H) 24 hr Citrate >550 mg/d <21 (L) Urine Volume 0.50 - 4.00 L/d 1.39 Supersaturation CaOx 6.00 - 10.00 6.57 Supersaturation CaP 0.50 - 2.00 0.24 (L) Supersaturation Uric Acid <1.00 0.96 24 hr Creatinine mg/d 1,033 24 hr Creatinine per Kilogram Body Weight 8.7 - 20.3 mg/d/kg 16.3 24 hr Calcium per Kilogram Body Weight <4.0 mg/d/kg 1.3 24 hr Calcium per 24 hr Creatinine 51 - 262 mg/g 80 24 hr Urine Comments Comments CYSTINE SCREEN Negative Component Latest Ref Rng & Units 07/14/2022 PTH, Intact 15 - 65 pg/mL 125 (H) Vitamin D 25 Hydroxy 31.0 - 80.0 ng/mL 41.8 Uric Acid 2.5 - 6.6 mg/dL 6.7 (H) Assessment/Plan: Z01.818 Preop examination (primary encounter diagnosis) N20.0 Nephrolithiasis E87.0 Hypernatriuria R82.992 Hyperoxaluria R82.991 Hypocitraturia E72.9 Aciduria (HCC) R34 Urine volume deficient E34.9 Elevated parathyroid hormone - Emphasis on increasing fluid intake, decreasing sodium intake, increasing dietary citrus as tolerable, and decreasing high-oxalate foods and pair with calcium rich foods - New serum PTH ordered to reassess. If still elevated, will refer to Endocrinology. Reviewed recent 24 hour urine study and discussed strategies for stone prevention. Low urine volume - Recommend increasing your fluid intake to 2.5-3 L/day or 80-100 fluid oz/day. Not only increase fluids during the day but also drink 1-2 glasses of water before bed, get up at least once through the night to urinate, and then drink another glass of water before returning to sleep. Hypocitraturia - Recommend increasing dietary citrate intake. Adding more fruits & vegetables to your diet; in particular citrus fruits like delio, limes, oranges, melons and tomatoes. Hyperoxaluria - Recommend a low oxalate diet, adding calcium rich foods at each meal and add a vitamin B6 50-100 mg supplement daily. General stone prevention guidelines: Fluid intake - #1 reason why people form stones - not enough fluid! Recommend increasing water/fluid intake (2.5-3 L/day or 80-100 fluid oz/day), including nighttime hydration. We recommend emptying your bladder and drinking 1-2 glasses of water prior to bed, then getting up at least once during the night to empty your bladder again and drinking 1 more glass of water before returning to bed. All fluids count but water is best. Refugio intake - Recommend increasing dietary citrate intake. Adding more fruits & vegetables to your diet; in particular citrus fruits (delio/limes/lemonade/melons/to matoes). One can add 4 oz of lemon juice diluted in 32 oz of water daily to start. If diet changes are too difficult we can prescribe a medication, potassium citrate, that can help increase your citrate levels. Sodium intake - Recommend a low sodium diet <2000mg/d. Read food labels, choose low sodium options, avoid canned, frozen or boxed meals, eat more fresh foods, and possibly add a fish oil supplement daily (2000mg/d) Calcium intake - Recommend 2-3 servings of calcium per day. Not advisable for stone patients to restrict calcium intake as it is very important for good bone, muscle, and tissue health. Decrease soft drinks (has phosphoric acid). Protein intake: about 1 g of protein per kilo body weight per day. Patients with high urine oxalate: avoid spinach, nuts, seeds, potatoes. Foods like banana, avocado, soybean, colton, cereals are good for you. RTC after surgery per Dr. Odonnell. I spent a total of 40 minutes on the date of the service which included preparing to see the patient, [id number] patient care, completing clinical documentation, obtaining and/or reviewing separately obtained history, performing a medically appropriate examination, counseling and educating the patient/family/caregiver, ordering medications, tests, or procedures, and communicating results to the patient/family/caregiver. Marley Gutierrez PA-C documented in this encounter [facility] 09-07-2022 History and physical note UROLOGY SURGICAL H&P SERVICE DATE: 09/07/2022 SERVICE TIME: 8:59 AM REFERRING PROVIDER: No referring provider defined for this encounter. PCP: No primary care provider on file. GENDER: Female SUBJECTIVE CHIEF COMPLAINT: Pre-op exam HISTORY OF PRESENT ILLNESS: Ms. Irvin is a 56 year old female who presents for preoperative exam prior to Left CYSTOURETHROSCOPY W/ URETEROSCOPY AND/OR PYELOSCOPY W/ LITHOTRIPSY INCLUDE INSERTION OF INDWELLING URETERAL STENT and CYSTOSCOPY, EXCHANGE STENT URETERAL J with Dr. Odonnell today, 09/07/22. FUNCTIONAL STATUS: Walk a block or two on level ground (2.75 METs) Do moderate work around the house such as vacuuming, sweeping floors, or carrying in groceries (3.50 METs) Do yardwork, such as raking leaves, weeding,or pushing a power mower (4.50 METs) Climb a flight of stairs or walk up a hill (5.50 METs) No past medical history on file. No past surgical history on file. No family history on file. Social History Tobacco Use Smoking status: Never Passive exposure: Current Smokeless tobacco: Never REVIEW OF SYSTEMS: General: General: Well developed, well nourished. No acute distress HEENT: + headaches. Negative for sore throat, difficulty swallowing. Negative for changes in vision or hearing. Cardiovascular: + HTN. No history of angina, CHF, CT, cardiac surgery of stents. Respiratory: Negative for current cough, dyspnea. No hx of pneumonia in the past six weeks Gastrointestinal: + gastric bypass hx. No history of PUD, abd pain, difficulty swallowing, GI bleed. Renal: Negative for renal failure and No history of dialysis Musculoskeletal: Negative for joint pain or swelling, back pain or muscle pain. Skin: Negative for lesions, rash and itching. Psychological: No history of psychiatric symptoms or problems. Neurologic: No history of TIA's, stroke, [employer] tumor, impaired sensorium, hemiplegia or paraplegia No neurological symptoms or problems. Hematology/Oncology: No history of bleeding or clotting disorder. Pt is not taking anti-coagulation or platelet medications. No history of hematological symptoms or problems. Endocrine: + DM. Negative for excessive sweating, thirst or hunger PHYSICAL EXAM: General Appearance/ Constitutional: Well developed, well nourished, and in no apparent distress Head and Neck normal, no jugular venous extension, no thyromegaly, and no palpable mass Eyes: Pupils are equally round and reactive to light. Extraocular movements are intact. Respiratory: Clear to auscultation & percussion Cardiovascular: Normal, Regular rate and rhythm, and No murmurs GI: Soft, Non-tender, No masses, hepatosplenomegaly, and No lymphadenopathy Extremities: Radial and pedal pulses +2, no edema, extremities WNL Back: Normal back and mobility Neurological: Normal cognition and motor skills. Skin: Color, texture, turgor normal. VITALS: BP 103/69 (BP Site: Left Arm, BP Position: Sitting, BP Cuff Size: Regular Adult) Pulse 77 Wt 60.8 kg (134 lb) BMI 24.38 kg/m Temperature Max: @TMAXREFRESH(24)@ ALLERGIES: ALLERGIES Allergen Reactions Prednisone Hives Valacyclovir Hives LABS: BUN (mg/dL) Date Value 07/14/2022 28 Creatinine (mg/dL) Date Value 07/14/2022 2.85 No results found for: PSA Glucose, Urine (no units) Date Value 08/18/2022 Negative Bilirubin, Urine (no units) Date Value 08/18/2022 Negative Ketones, Urine (no units) Date Value 08/18/2022 Negative Specific [place], Ur (no units) Date Value 08/18/2022 1.016 Hemoglobin/Blood,Ur (no units) Date Value 08/18/2022 3+ (A) pH, Urine (no units) Date Value 08/18/2022 6.0 Protein, Urine (no units) Date Value 08/18/2022 1+ (A) Nitrites (no units) Date Value 08/18/2022 Negative WBC, Urine (no units) Date Value 08/18/2022 >25 /HPF (A) Color (no units) Date Value 08/18/2022 Light Yellow Clarity (no units) Date Value 08/18/2022 Cloudy (A) MEDICATIONS: (Not in a hospital admission) No current outpatient medications on file. No current facility-administered medications for this visit. DIAGNOSIS, ASSESSMENT AND PLAN There are no active hospital problems to display for this patient. Assessment & Plan: Proceed to surgery SIGNATURE: Marley Gutierrez PA-C PATIENT NAME: Elizabeth Irvin DATE: September 07, 2022 TIME: 8:59 AM PAGER/CONTACT #: [facility] PRE-OP NOTE Elizabeth Irvin is a 56 year old female. Pre-op Date: September 07, 2022 Date of Procedure: 09/07/22 Does the patient have an active COVID-19 test in [facility]? N/a Procedure/Surgery: L URS and stent Diagnosis: Nephroltihaisis Primary Surgeon: MD Blas, Samy BP 103/69 (BP Site: Left Arm, BP Position: Sitting, BP Cuff Size: Regular Adult) Pulse 77 Wt 60.8 kg (134 lb) BMI 24.38 kg/m Pain Assessment: Are you currently having pain? Yes, related to stent Surgical Guide Book Status: Patient given book today. Dialysis Guide Book Status: N/A Allergies Reviewed: Yes Medications Reviewed: Yes Is patient currently on oral steroids?: No Has the patient had a UTI in the past month?: Yes. Antibiotic taken: Bactrim Does the patient have any artificial joints (last 2 years), metal parts, pacemakers or cardiac/ureteral stents in place?: Yes, L ureteral Does the patient have diabetes?: Yes Is the patient routinely taking anticoagulants?: No. Can the patient have an IV put in either arm?: Yes Urine Dip Complete?: Yes URINE CULTURE COMPLETE?: Yes Ostomy/Stoma Nurse appointment made/completed: N/A IMPACT/Medical Clearance: Cleared per [facility] - N/A [facility]: Cleared per [facility] - N/A All testing on cureform has been scheduled: Yes Consent Signed: No DOS Orders Placed and Signed: Yes. Pre-op H&P Done by Physician Tar Kettle Runner: Yes. PATIENT INSTRUCTIONS FOR SURGERY 1.) DO NOT HAVE ANYTHING TO EAT AFTER MIDNIGHT THE DAY BEFORE SURGERY except for certain morning medications as instructed by the doctor. Candy, mints, gum, and smoking are NOT permitted. You may drink clear liquids (Sprite, water, oliver jack) up to two hours before your arrival time on the day of surgery. 2.) Medications to be taken on the morning of surgery with a few sips of water: none 3.) Please bring all your prescribed inhalers (if you have any you normally take) to the hospital. 4.) Arrival time: Given. 5.) Prep given: No 6.) Lovenox instructions given: N/A 7.) Patient reminded that surgery time provided day before surgery is tentative based on potential changes with transplants. Recommendations: This patient is optimally prepared for surgery. Marley Gutierrez PA-C documented in this encounter [facility] 08-19-2022 Miscellaneous Notes Called and spoke with patient regarding incoming call message. She states that she is a bit confused regarding the scheduling of her procedure. She thought she was going to be having the PCNL surgery done but was told she is having the URS surgery by Dr. Odonnell instead. Explained to patient that this was decided upon by Dr. Odonnell after review of renal flow results and thinks this is the best option moving forward. Patient also asking about urine culture and if positive for infection can she get an injection of antibiotics. Explained that urine culture is still in process and if positive, she will be given an oral antibiotic, as they are not given as injections, but rather IV if needed. Patient states she usually dry heaves when taking oral antibiotics. Informed patient that if one is needed, it will be determined based on sensitivities and we can try prescribing Zofran with medication and see if she tolerates it. IV is usually recommended if the bacteria is resistant to oral options. Will await urine culture results at this time. Patient voiced understanding. Marisa West RN August 19, 2022 12:00 PM - ----- Message from Gracy Willett sent at 08/19/2022 10:54 AM EDT ----- Regarding: Dry-heaving Contact: Pt called - completed labs (advised pt urine culture is still in process) pt says dry heaving all the pills, pt wants to know if there is an infection could a shot be giving instead of a pill. Please advise -thank you. documented in this encounter [facility] 08-13-2022 Miscellaneous Notes Called patient to discuss questions she has about surgery with Dr. Odonnell. Informed her that the stone removal surgery would be an outpatient procedure with a 24 hour observation. Recommend to avoid strenuous activity and heavy lifting >10 lbs for about 1-2 weeks. Patient is agreeable to proceeding with surgery after review of Dr. Steele recent my chart message. Offered patient 08/24, 08/31 or 09/07. She is going to check her work schedule and get back to office tomorrow on my chart to confirm a surgery date. Marisa West RN August 13, 2022 9:55 AM documented in this encounter [facility] 07-30-2022 Note HNO ID: [id number] Author: Donovan Guzman, [employer] Service: Nuclear Medicine Author Type: Uptwist Spinner Type: Progress Notes Filed: 07/30/2022 2:28 PM Note Text: RADIOLOGY SERVICE PROGRESS NOTE SERVICE DATE: 07/30/2022 SERVICE TIME: 2:26 PM PATIENT IDENTITY VERIFICATION COMPLETED USING TWO (2) STANDARD IDENTIFIERS: Name and Date of confirmed by patient verbally FALL SCREENING: Has the patient had 2 falls in the last year or 1 fall with injury or currently using an Ambulatory Assistive Device (Walker, Cane, Wheelchair, Crutches, etc.)? No PATIENT GENDER DATA: .female : No ALLERGIES: Reviewed and unchanged MEDICATIONS REVIEWED: Yes PATIENT RELEVANT IMPLANT DATA REVIEWED: Not Applicable CREATININE: Creatinine Date Value Ref Range Status 07/14/2022 2.85 (H) 0.58 - 0.96 mg/dL Final Estimated Glomerular Filtration Rate Date Value Ref Range Status 07/14/2022 19 (L) >=60 mL/min/1.73m? Final Comment: Estimated Glomerular Filtration Rate (eGFR) is calculated using the 2020 CKD-EPI creatinine equation. This equation utilizes serum creatinine, sex, and age as parameters. The creatinine assay has traceable calibration to isotope dilution-mass spectrometry. Refer to KDIGO guidelines for clinical interpretation. In patients with unstable renal function, e.g. those with acute kidney injury, the eGFR may not accurately reflect actual GFR. P.O.C.T. RESULTS: N/A July 30, [address] PERFORMED: No IV SITE: Ambulatory: A peripheral IV was started in the Left antecubital site with a Angio cath: 22 gauge. POST EXAM PIV STATUS: Discontinued PROCEDURE TYPE: ID INJECT: RENAL. 10.5 mCi Tc99m MAG-3. Lasix 40 milligrams intravenous at 1410. ADMINISTRATION TIME: 1345 PATIENT DISCHARGED TO: Ambulatory patient, left ID department area. A Diagnostic radioactive procedure has taken place, with no further precautions necessary other than routine body substance precautions. More information regarding radiation safety can be found using this link: [email or web address] [email or web address] SIGNATURE: Donovan Guzman [employer] PATIENT NAME: Elizabeth Irvin DATE: July 30, 2022 TIME: 2:26 PM PAGER/CONTACT #: [facility] 07-30-2022 History of Presen t illness Narrative RADIOLOGY SERVICE PROGRESS NOTE SERVICE DATE: 07/30/2022 SERVICE TIME: 2:26 PM PATIENT IDENTITY VERIFICATION COMPLETED USING TWO (2) STANDARD IDENTIFIERS: Name and Date of confirmed by patient verbally FALL SCREENING: Has the patient had 2 falls in the last year or 1 fall with injury or currently using an Ambulatory Assistive Device (Walker, Cane, Wheelchair, Crutches, etc.)? No PATIENT GENDER DATA: .female : No ALLERGIES: Reviewed and unchanged MEDICATIONS REVIEWED: Yes PATIENT RELEVANT IMPLANT DATA REVIEWED: Not Applicable CREATININE: Creatinine Date Value Ref Range Status 07/14/2022 2.85 (H) 0.58 - 0.96 mg/dL Final Estimated Glomerular Filtration Rate Date Value Ref Range Status 07/14/2022 19 (L) >=60 mL/min/1.73m Final Comment: Estimated Glomerular Filtration Rate (eGFR) is calculated using the 2020 CKD-EPI creatinine equation. This equation utilizes serum creatinine, sex, and age as parameters. The creatinine assay has traceable calibration to isotope dilution-mass spectrometry. Refer to KDIGO guidelines for clinical interpretation. In patients with unstable renal function, e.g. those with acute kidney injury, the eGFR may not accurately reflect actual GFR. P.O.C.T. RESULTS: N/A July 30, [address] PERFORMED: No IV SITE: Ambulatory: A peripheral IV was started in the Left antecubital site with a Angio cath: 22 gauge. POST EXAM PIV STATUS: Discontinued PROCEDURE TYPE: NM INJECT: RENAL. 10.5 mCi Tc99m MAG-3. Lasix 40 milligrams intravenous at 1410. ADMINISTRATION TIME: 1345 PATIENT DISCHARGED TO: Ambulatory patient, left ID department area. A Diagnostic radioactive procedure has taken place, with no further precautions necessary other than routine body substance precautions. More information regarding radiation safety can be found using this link: [email or web address] [email or web address] SIGNATURE: Donovan Guzman [employer] PATIENT NAME: Elizabeth Irvin DATE: July 30, 2022 TIME: 2:26 PM PAGER/CONTACT #: documented in this encounter [facility] 07-30-2022 Nurse Note Patient here for a renal scan with lasix. Patient identified and allergies reviewed. Per order under scanned documents lasix 40 mg IV given at 1411. documented in this encounter [facility] 07-14-2022 Note Patient Outreach (UR OLMN) ELIZABETH IRVIN ([id number]) 1965 F Date Time Provider Department 07/14/22 SAMY ODONNELL During your visit today, we recorded the following information about you: Allergies As of Date: 07/14/2022 Noted Allergy Reaction PREDNISOLONE 07/14/2022 4 - Hives PREDNISONE 04/24/2022 4 - Hives VALACYCLOVIR 04/24/2022 4 - Hives Date Reviewed: 07/14/2022 Reviewed by: Gali Mcnally, ANNALISE - Fully Assessed Visit Diagnosis:Screening for genitourinary condition [Z13.89] Order(s):URINALYSIS, REFLEX MICROSCOPIC [[id number]] Order #: [id number]. #:[id number] Prescriptions as of 07/17/2022 - nitrofurantoin monohydrate and macrocrystal (MACROBID) 100 mg capsule Take 1 capsule by mouth twice daily for 7 days. Take with food. - lisinopril (ZESTRIL, PRINIVIL) 20 mg tablet Take by mouth. - DULoxetine (CYMBALTA) 60 mg capsule - rOPINIRole (REQUIP) 1 mg tablet - OZEMPIC 0.25 mg or 0.5 mg(2 mg/1.5 mL) pen Problem List As Of Date: 07/14/2022 (None) Encounter Status:Closed by EPIC, PRODUSER on 07/17/22 [facility] 07-14-2022 Note HNO ID: [id number] Author: Samy Odonnell MD Service: ? Author Type: Physician Type: Progress Notes Filed: 07/14/2022 5:19 PM Note Text: STAFF UROLOGY NOTE: We had the pleasure of seeing Elizabeth Irvin in our Multidisciplinary Stone Clinic today. Consultation requested by Dr. Blum for an opinion regarding large residual left mid-ureteral stone (stent in place) plus 14-15 mm right renal stone, not obstructing. My final recommendations will be communicated back to the requesting physician by way of shared Medical record or letter to requesting physician via [place] mail. She is a pleasant 56 year old female who first had a stone episode in 1991. She has passed 0 stones She has not had a prior 24-hour urine metabolic evaluation. She has had 3 shockwave lithotripsies, 1 ureteroscopies and 0 percutaneous nephrolithotomies She has the following family history of stones: Side of Family Relationship Number of Stones Maternal Aunt Maternal Mother Significant comorbidities include:MedicalDiabetes,Hyperten nathaniel,Gastric Bypass The patient has been experiencing pain that is located in the following location(s): left flank. The pain is aggravated by movement and alleviated by rest (correlates with stent insertion). The patient has been experiencing this pain for 21 days. The intensity ranges up to a level 4 out of 10. The pain duration is constant. The characteristics and location of the pain are suggestive of a musculoskeletal origin. She was counseled on the most recent imaging studies. CT Scan Imaging Date: 03/19/22 Stone Side Location Length (mm) Width (mm) HU STSD 1 R kidney 15 907 2 L mid-ureter 10 3 L distal ureter 7 4 5 Renal US or KUB Imaging Date: Stone Side Location Length (mm) Width (mm) 1 2 3 4 5 She was counseled on the options of: 1. Observation - risks including stone growth, stone movement, pain, impact on renal function. Chance of spontaneous stone passage of the largest stone: 0% 2. Shockwave lithotripsy - risks of bleeding (1 in 1000 severe bleed), residual fragments, need for a secondary procedure. Success based on size, location, hounsfield units and bpjl-qj-apddq distance: 0% 3. Ureteroscopy - risks of UTI, ureteral injury (1 in 1000 severe injury requiring major surgery), morbidity from ureteral stent Success: 60-70% for right stone; 80+% for left mid-ureteral stone. 4. PCNL - risks of lung injury (1%), transfusion (5%), embolization (1%), injury to other organs, need for secondary procedure. Success: 95% Imp: The primary encounter diagnosis was Nephrolithiasis. Diagnoses of Hydronephrosis with urinary obstruction due to ureteral calculus, Left flank pain, and Left renal atrophy were also pertinent to this visit. Plan: Based on this discussion, she wishes to undergo nuclear renal scan to assess remaining function in the left kidney; then decide on further stone surgery on left vs. left nephrectomy (if very poor function). Right PCNL to clear right stone (mini-perc). I spent >60 minutes in this visit (including reviewing x-rays and records plus patient discussion), with more than 50% of the total sjuj-pn-niic time of the visit devoted to patient counseling/coordination of care. Samy Odonnell MD Director, Surgical Stone Disease [facility], [facility] Pager [phone] 07/14/2022 [facility] 07-14-2022 History of Presen t illness Narrative Images from the original note were not included. STAFF UROLOGY NOTE: We had the pleasure of seeing Elizabeth Belenkathy in our Multidisciplinary Stone Clinic today. Consultation requested by Dr. Blum for an opinion regarding large residual left mid-ureteral stone (stent in place) plus 14-15 mm right renal stone, not obstructing. My final recommendations will be communicated back to the requesting physician by way of shared Medical record or letter to requesting physician via [place] mail. She is a pleasant 56 year old female who first had a stone episode in 1991. She has passed 0 stones She has not had a prior 24-hour urine metabolic evaluation. She has had 3 shockwave lithotripsies, 1 ureteroscopies and 0 percutaneous nephrolithotomies She has the following family history of stones: Side of Family Relationship Number of Stones Maternal Aunt Maternal Mother Significant comorbidities include:MedicalDiabetes,Hyperten nathaniel,Gastric Bypass The patient has been experiencing pain that is located in the following location(s): left flank. The pain is aggravated by movement and alleviated by rest (correlates with stent insertion). The patient has been experiencing this pain for 21 days. The intensity ranges up to a level 4 out of 10. The pain duration is constant. The characteristics and location of the pain are suggestive of a musculoskeletal origin. She was counseled on the most recent imaging studies. CT Scan Imaging Date: 03/19/22 Stone Side Location Length (mm) Width (mm) HU STSD 1 R kidney 15 907 2 L mid-ureter 10 3 L distal ureter 7 4 5 Renal US or KUB Imaging Date: Stone Side Location Length (mm) Width (mm) 1 2 3 4 5 She was counseled on the options of: 1. Observation - risks including stone growth, stone movement, pain, impact on renal function. Chance of spontaneous stone passage of the largest stone: 0% 2. Shockwave lithotripsy - risks of bleeding (1 in 1000 severe bleed), residual fragments, need for a secondary procedure. Success based on size, location, hounsfield units and uxvn-oc-fewdx distance: 0% 3. Ureteroscopy - risks of UTI, ureteral injury (1 in 1000 severe injury requiring major surgery), morbidity from ureteral stent Success: 60-70% for right stone; 80+% for left mid-ureteral stone. 4. PCNL - risks of lung injury (1%), transfusion (5%), embolization (1%), injury to other organs, need for secondary procedure. Success: 95% Imp: The primary encounter diagnosis was Nephrolithiasis. Diagnoses of Hydronephrosis with urinary obstruction due to ureteral calculus, Left flank pain, and Left renal atrophy were also pertinent to this visit. Plan: Based on this discussion, she wishes to undergo nuclear renal scan to assess remaining function in the left kidney; then decide on further stone surgery on left vs. left nephrectomy (if very poor function). Right PCNL to clear right stone (mini-perc). I spent >60 minutes in this visit (including reviewing x-rays and records plus patient discussion), with more than 50% of the total lbly-jc-kmrj time of the visit devoted to patient counseling/coordination of care. Samy Odonnell MD Director, Surgical Stone Disease [facility] Pager [phone] 07/14/2022 documented in this encounter [facility] 07-07-2022 Hospital Discharg e instructions Patient Education 07/07/2022 08:44:18 Dietary Guidelines to Help Prevent Kidney Stones Dietary Guidelines to Help Prevent Kidney Stones Kidney stones are deposits of minerals and salts that form inside your kidneys. Your risk of developing kidney stones may be greater depending on your diet, your lifestyle, the medicines you take, and whether you have certain medical conditions. Most people can reduce their chances of developing kidney stones by following the instructions below. Depending on your overall health and the type of kidney stones you tend to develop, your dietitian may give you more specific instructions. What are tips for following this plan? Reading food labels Choose foods with no salt added or low-salt labels. Limit your sodium intake to less than 1500 mg per day. Choose foods with calcium for each meal and snack. Try to eat about 300 mg of calcium at each meal. Foods that contain 200 500 mg of calcium per serving include: ?8 oz (237 ml) of milk, fortified nondairy milk, and fortified fruit juice. ?8 oz (237 ml) of kefir, yogurt, and soy yogurt. ?4 oz (118 ml) of tofu. ?1 oz of cheese. ?1 cup (300 g) of dried figs. ?1 cup (91 g) of cooked broccoli. ?1 3 oz can of sardines or mackerel. Most people need 1000 to 1500 mg of calcium each day. Talk to your dietitian about how much calcium is recommended for you. Shopping Buy plenty of fresh fruits and vegetables. Most people do not need to avoid fruits and vegetables, even if they contain nutrients that may contribute to kidney stones. When shopping for convenience foods, choose: ?Whole pieces of fruit. ?Premade salads with dressing on the side. ?Low-fat fruit and yogurt smoothies. Avoid buying frozen meals or prepared deli foods. Look for foods with live cultures, such as yogurt and kefir. Cooking Do not add salt to food when cooking. Place a salt shaker on the table and allow each person to add his or her own salt to taste. Use vegetable protein, such as beans, textured vegetable protein (TVP), or tofu instead of meat in pasta, casseroles, and soups. Meal planning Eat less salt, if told by your dietitian. To do this: ?Avoid eating processed or premade food. ?Avoid eating fast food. Eat less animal protein, including cheese, meat, poultry, or fish, if told by your dietitian. To do this: ?Limit the number of times you have meat, poultry, fish, or cheese each week. Eat a diet free of meat at least 2 days a week. ?Eat only one serving each day of meat, poultry, fish, or seafood. ?When you prepare animal protein, cut pieces into small portion sizes. For most meat and fish, one serving is about the size of one deck of cards. Eat at least 5 servings of fresh fruits and vegetables each day. To do this: ?Keep fruits and vegetables on hand for snacks. ?Eat 1 piece of fruit or a handful of berries with breakfast. ?Have a salad and fruit at lunch. ?Have two kinds of vegetables at dinner. Limit foods that are high in a substance called oxalate. These include: ?Spinach. ?Rhubarb. ?Beets. ?Potato chips and persian fries. ?Nuts. If you regularly take a diuretic medicine, make sure to eat at least 1 2 fruits or vegetables high in potassium each day. These include: ?Avocado. ?Banana. ?Yell, prune, carrot, or tomato juice. ?Baked potato. ?Cabbage. ?Beans and split peas. General instructions Drink enough fluid to keep your urine clear or pale yellow. This is the most important thing you can do. Talk to your health care provider and dietitian about taking daily supplements. Depending on your health and the cause of your kidney stones, you may be advised: ?Not to take supplements with vitamin C. ?To take a calcium supplement. ?To take a daily probiotic supplement. ?To take other supplements such as magnesium, fish oil, or vitamin B6. Take all medicines and supplements as told by your health care provider. Limit alcohol intake to no more than 1 drink a day for non women and 2 drinks a day for men. One drink equals 12 oz of beer, 5 oz of wine, or 1 oz of hard liquor. Lose weight if told by your health care provider. Work with your dietitian to find strategies and an eating plan that works best for you. What foods are not recommended? Limit your intake of the following foods, or as told by your dietitian. Talk to your dietitian about specific foods you should avoid based on the type of kidney stones and your overall health. Grains Breads. Bagels. Rolls. Baked goods. Salted crackers. Cereal. Pasta. Vegetables Spinach. Rhubarb. Beets. Canned vegetables. Pickles. Olives. Meats and other protein foods Nuts. Nut butters. Large portions of meat, poultry, or fish. Salted or cured meats. Deli meats. Hot dogs. Sausages. Dairy Cheese. Beverages Regular soft drinks. Regular vegetable juice. Seasonings and other foods Seasoning blends with salt. Salad dressings. Canned soups. Soy sauce. Ketchup. Barbecue sauce. Canned pasta sauce. Casseroles. Pizza. Lasagna. Frozen meals. Potato chips. Togolese fries. Summary You can reduce your risk of kidney stones by making changes to your diet. The most important thing you can do is drink enough fluid. You should drink enough fluid to keep your urine clear or pale yellow. Ask your health care provider or dietitian how much protein from animal sources you should eat each day, and also how much salt and calcium you should have each day. This information is not intended to replace advice given to you by your health care provider. Make sure you discuss any questions you have with your health care provider. Document Released: 09/04/2011 Document Revised: 08/30/2019 Document Reviewed: 04/20/2017 its learning Patient Education 2020 [employer]. Follow Up Care 06/29/2022 15:30:12 With:TRI REED, Chalo Frazier, URL Address: [address] [place], [place] [id number]- When: Unknown [facility] Patti 06-18-2022 Evaluation + Plan note Extrac bernardo from: Title:Post-anesthesia - General Author:Garfield Garrett DO Date:06/18/22 Plan Transfer/ Discharge: Condition stable. Extracted from: Title:Pre-anesthesia - Adult Author:Garfield Beauchamp Jr., DO Date:06/18/22 Plan [place] [employer] (ASA) physical status classification: Class III. Anesthetic Preoperative Plan Anesthesia: General. . Anesthetic plan, risks, benefits, and alternatives discussed with the patient and/or family. Patient verbalized understanding. Adverse reactions, complications, and alternatives discujssed. Consent signed and on chart.. [facility]01-26-2023 Hospital Discharge instructions Patient Education 06/18/2022 11:56:09 Post Op Patient Instructions - FT (Custom) (CUSTOM) 06/18/2022 10:37:48 Lithotripsy, Care After Lithotripsy, Care After This sheet gives you information about how to care for yourself after your procedure. Your health care provider may also give you more specific instructions. If you have problems or questions, contact your health care provider. What can I expect after the procedure? After the procedure, it is common to have: Some blood in your urine. This should only last for a few days. Soreness in your back, sides, or upper abdomen for a few days. Blotches or bruises on your back where the pressure wave entered the skin. Pain, discomfort, or nausea when pieces (fragments) of the kidney stone move through the tube that carries urine from the kidney to the bladder (ureter). Stone fragments may pass soon after the procedure, but they may continue to pass for up to 4 8 weeks. ?If you have severe pain or nausea, contact your health care provider. This may be caused by a large stone that was not broken up, and this may mean that you need more treatment. Some pain or discomfort during urination. Some pain or discomfort in the lower abdomen or (in men) at the base of the penis. Follow these instructions at home: Medicines Take hofi-jqo-esmkxjq and prescription medicines only as told by your health care provider. If you were prescribed an antibiotic medicine, take it as told by your health care provider. Do notstop taking the antibiotic even if you start to feel better. Do not drive for 24 hours if you were given a medicine to help you relax (sedative). Do not drive or use heavy machinery while taking prescription pain medicine. Eating and drinking Drink enough water and fluids to keep your urine clear or pale yellow. This helps any remaining pieces of the stone to pass. It can also help prevent new stones from forming. Eat plenty of fresh fruits and vegetables. Follow instructions from your health care provider about eating and drinking restrictions. You may be instructed: ?To reduce how much salt (sodium) you eat or drink. Check ingredients and nutrition facts on packaged foods and beverages. ?To reduce how much meat you eat. Eat the recommended amount of calcium for your age and gender. Ask your health care provider how much calcium you should have. General instructions Get plenty of rest. Most people can resume normal activities 1 2 days after the procedure. Ask your health care provider what activities are safe for you. Your health care provider may direct you to lie in a certain position (postural drainage) and tap firmly (percuss) over your kidney area to help stone fragments pass. Follow instructions as told by your health care provider. If directed, strain all urine through the strainer that was provided by your health care provider. ?Keep all fragments for your health care provider to see. Any stones that are found may be sent to a medical lab for examination. The stone may be as small as a grain of salt. Keep all follow-up visits as told by your health care provider. This is important. Contact a health care provider if: You have pain that is severe or does not get better with medicine. You have nausea that is severe or does not go away. You have blood in your urine longer than your health care provider told you to expect. You have more blood in your urine. You have pain during urination that does not go away. You urinate more frequently than usual and this does not go away. You develop a rash or any other possible signs of an allergic reaction. Get help right away if: You have severe pain in your back, sides, or upper abdomen. You have severe pain while urinating. Your urine is very dark red. You have blood in your stool (feces). You cannot pass any urine at all. You feel a strong urge to urinate after emptying your bladder. You have a fever or chills. You develop shortness of breath, difficulty breathing, or chest pain. You have severe nausea that leads to persistent vomiting. You faint. Summary After this procedure, it is common to have some pain, discomfort, or nausea when pieces (fragments)of the kidney stone move through the tube that carries urine from the kidney to the bladder (ureter). If this pain or nausea is severe, however, you should contact your health care provider. Most people can resume normal activities 1 2 days after the procedure. Ask your health care provider what activities are safe for you. Drink enough water and fluids to keep your urine clear or pale yellow. This helps any remaining pieces of the stone to pass, and it can help prevent new stones from forming. If directed, strain your urine and keep all fragments for your health care provider to see. Fragments or stones may be as small as a grain of salt. Get help right away if you have severe pain in your back, sides, or upper abdomen or have severe pain while urinating. This information is not intended to replace advice given to you by your health care provider. Make sure you discuss any questions you have with your health care provider. Document Released: 05/29/2008 Document Revised: 08/21/2019 Document Reviewed: 03/31/2017 its learning Patient Education 2020 [employer]. Follow Up Care 03/31/2022 13:46:23 With:Chalo BLUM Address: [address] [place], [place] [id number] [facility] (1) When:1 to 2 weeks Comments:Call for followup appointment with an abdominal X-ray prior to your visit (my office will need to send an order for the X-ray) [facility]01-13-2023 Note [id number]:127[facility] 04-15-2022 [id number]:127[facility]11-22-2022 [id number]:127 [facility]11-08-2022 Hospital Discharge instructions Patient Education 03/31/2022 13:07:20 Kidney Stones, Sntq-pl-Npia Kidney Stones Kidney stones are rock-like masses that form inside of the kidneys. Kidneys are organs that make pee (urine). A kidney stone may move into other parts of the urinary tract, including: The tubes that connect the kidneys to the bladder (ureters). The bladder. The tube that carries urine out of the body (urethra). Kidney stones can cause very bad pain and can block the flow of pee. The stone usually leaves your body (passes) through your pee. You may need to have a doctor take out the stone. What are the causes? Kidney stones may be caused by: A condition in which certain glands make too much parathyroid hormone (primary hyperparathyroidism). A buildup of a type of crystals in the bladder made of a chemical called uric acid. The body makes uric acid when you eat certain foods. Narrowing (stricture) of one or both of the ureters. A kidney blockage that you were born with. Past surgery on the kidney or the ureters, such as gastric bypass surgery. What increases the risk? You are more likely to develop this condition if: You have had a kidney stone in the past. You have a family history of kidney stones. You do not drink enough water. You eat a diet that is high in protein, salt (sodium), or sugar. You are overweight or very overweight (obese). What are the signs or symptoms? Symptoms of a kidney stone may include: Pain in the side of the belly, right below the ribs (flank pain). Pain usually spreads (radiates) to the groin. Needing to pee often or right away (urgently). Pain when going pee (urinating). Blood in your pee (hematuria). Feeling like you may vomit (nauseous). Vomiting. Fever and chills. How is this treated? Treatment depends on the size, location, and makeup of the kidney stones. The stones will often pass out of the body through peeing. You may need to: Drink more fluid to help pass the stone. In some cases, you may be given fluids through an IV tube put into one of your veins at the hospital. Take medicine for pain. Make changes in your diet to help keep kidney stones from coming back. Sometimes, medical procedures are needed to remove a kidney stone. This may involve: A procedure to break up kidney stones using a beam of light (laser) or shock waves. Surgery to remove the kidney stones. Follow these instructions at home: Medicines Take kcik-zus-nxwjalr and prescription medicines only as told by your doctor. Ask your doctor if the medicine prescribed to you requires you to avoid driving or using heavy machinery. Eating and drinking Drink enough fluid to keep your pee pale yellow. You may be told to drink at least 8 10 glasses of water each day. This will help you pass the stone. If told by your doctor, change your diet. This may include: ?Limiting how much salt you eat. ?Eating more fruits and vegetables. ?Limiting how much meat, poultry, fish, and eggs you eat. Follow instructions from your doctor about eating or drinking restrictions. General instructions Collect pee samples as told by your doctor. You may need to collect a pee sample: ?24 hours after a stone comes out. ?8 12 weeks after a stone comes out, and every 6 12 months after that. Strain your pee every time you pee (urinate), for as long as told. Use the strainer that your doctor recommends. Do not throw out the stone. Keep it so that it can be tested by your doctor. Keep all follow-up visits as told by your doctor. This is important. You may need follow-up tests. How is this prevented? To prevent another kidney stone: Drink enough fluid to keep your pee pale yellow. This is the best way to prevent kidney stones. Eat healthy foods. Avoid certain foods as told by your doctor. You may be told to eat less protein. Stay at a healthy weight. Where to find more information National Kidney Foundation (NKF): www.kidney.org [facility] (UCF): www.urologyhealth.org Contact a doctor if: You have pain that gets worse or does not get better with medicine. Get help right away if: You have a fever or chills. You get very bad pain. You get new pain in your belly (abdomen). You pass out (faint). You cannot pee. Summary Kidney stones are rock-like masses that form inside of the kidneys. Kidney stones can cause very bad pain and can block the flow of pee. The stones will often pass out of the body through peeing. Drink enough fluid to keep your pee pale yellow. This information is not intended to replace advice given to you by your health care provider. Make sure you discuss any questions you have with your health care provider. Document Released: 10/26/2008 Document Revised: 09/26/2019 Document Reviewed: 09/26/2019 its learning Patient Education 2020 [employer]. Follow Up Care 03/26/2022 10:20:11 With:TRI REED, Chalo Frazier, URL Address: [address] [place], [place] [address]- When: Unknown [facility] Patti 10-31-2022 Evaluation note* Encounter Date Diagnosis Assessment Notes Treatment Notes Treatment Clinical Notes Feb, Stage 3a chronic kidney disease (ICD-10 - N18.31) Ordered recheck of Kidney function. Keep following up with Dr. Blum to have other kidney stones removed. We will see if function continues to improve. Feb, Type 2 diabetes mellitus without complication, without long-term current use of insulin (ICD-10 - E11.9) Continue current dose. Sent to [employer] Feb, RLS (restless legs syndrome) (ICD-10 - G25.81) Continue medication as discussed. Sent order to [employer] Feb, JEET (generalized anxiety disorder) (ICD-10 - F41.1) Continue medication as discussed. Sent order to [employer] Other 10-27-2022 NoteEXAMINATION: XR RETROGRADE PYELOGRAM HISTORY: Surgical procedure ; bilateral kidney stones COMPARISON: No relevant comparison available. FLUOROSCOPY TIME: Fluoro time measures 1 minute 25 seconds and 4 images were obtained. TECHNIQUE: Standard level fluoroscopic mode of operation utilized. FINDINGS: 3 intraoperative spot fluoroscopic images demonstrate retrograde filling of the ureter and mild dilation of the renal calyces. IMPRESSION: 1. Mild hydronephrosis and hydroureter. Electronically authenticated by: NATACHA WILD Date: 2022-03-19 16:44[facility]10-27-2022 NoteOPERATIVE NOTE OPERATION DATE: 03/19/2022 PREOPERATIVE DIAGNOSIS: 1. Bilateral hydronephrosis with bilateral ureteral calculi. 2. Acute kidney injury. 3. Right renal atrophy. 4. Right flank pain. POSTOPERATIVE DIAGNOSIS: 1. Bilateral hydronephrosis with bilateral ureteral calculi. 2. Acute kidney injury. 3. Right renal atrophy. 4. Right flank pain. PROCEDURE: 1. Cystoscopy. 2. Bilateral retrograde pyelogram. 3. Basket extraction right distal ureteral calculus. 4. Left ureteroscopy with Holmium laser ablation of large left distal ureteral calculus. 5. Basket extraction left ureteral calculi fragments. 6. Placement left double J ureteral stent under fluoroscopic imaging. SURGEON: Allen Blum M.D. COMPLICATIONS: None. ANESTHESIA: General. INDICATIONS: Please see consultation note. In short, Mrs. Irvin is a 56-year-old female with bilateral ureteral calculi, two large stones on the left and one on the right distal ureter. Due to the renal failure and risk of worsening renal insufficiency, recommendation made for operative intervention to at least provide drainage of both kidneys. Hopefully, I can remove the right distal ureteral stone and possibly the left, with the aid of laser ablation. She will most likely need a staged procedure for the left upper UPJ calculus and stenting is possible on both sides. She understood all this and wanted to proceed. She understands the risks of bleeding, infection, stent pain, staged procedure, heart and lung problems under anesthesia, among others. She had already received intravenous antibiotics early today. She does have sequential compression devices in place and functional to bilateral lower extremities throughout the case. PROCEDURE: Patient was brought back to the operating room and a time out was performed. All were in agreement with the operative plan. After the successful induction of general anesthesia, she was placed in the modified dorsolithotomy position and prepped in the usual fashion with Betadine solution. She was draped appropriately. 2% Xylocaine jelly placed per urethra and a well lubricated 22-Togolese cystourethroscope with 30 degree lens was then passed into the bladder without difficulty. Rangel endoscopy reveals no tumors or stones or diverticula. The left orifice is normal. The right orifice demonstrates edema and erythema. It appears that she may have a stone right at the ureterovesical junction on that side. I elected to perform a basket extraction without ureteroscopy on this side. Utilizing the 4 flat-wire stone basket, this was passed through the cystoscope and the wires negotiated beyond the stone and up into the ureter. The basket was deployed and the stone was pulled back into the bladder without difficulty and sent to pathologist for evaluation. There was an essential hydronephrotic drip on the right, after removal of the stone. Retrograde pyelogram was performed. No other filling defects identified. The contrast was seen to exit down the ureter briskly and I did not feel a stent was indicated. On the left side, left retrograde pyelogram was performed and noted a large filling defect consistent with a stone easily seen under fluoroscopic imaging. This was several centimeters proximal to the ureterovesical junction. It is quite large, approaching 1.2 cm, so I felt laser ablation would most likely be necessary. She has another stone at the left ureteropelvic junction, approaching 2 cm in size. I did not push undue pressure, so as to not cause sepsis on this side. A 0.035 Guidewire was negotiated up the left ureter, beyond the stone and into the kidney. This was actually difficult in the upper aspect to get it past the UPJ stone. There was good curl of the wire in the kidney. The cystoscope was removed and I placed a semi-rigid ureteroscope alongside the wire. The stone was encountered and, indeed, was much too large to engage with the basket. Utilizing the Holmium laser at about 8 conte of power, the stone was ablated into multiple pieces and these were basket extracted with a 4 flat-wire stone basket. All fragments sent to pathologist for evaluation. This was a fairly tedious laser ablation secondary to the hard stone. This is most likely calcium oxalate monohydrate. With all that accomplished, ureteroscopy was carried up to the mid ureter. The large stone was again seen proximally, but I felt that the best next step for that stone would be external lithotripsy and once the ureter dilated more fully, with the possibility of a staged approach on this side. Therefore, with the safety wire left in place, ureteroscope was removed. The cystoscope was backloaded over the wire and a 4.8 Togolese 22-30 cm [employer] double J stent was passed into the left kidney. Minimal difficulty getting the stent past the stone over the wire. The wire was removed and there was good curl within the kidney and (more content not included)...[id number]* Encounter Date Diagnosis Assessment Notes Treatment Notes Treatment Clinical Notes Jan, Mild episode of recurrent major depressive disorder (ICD-10 - F33.0) Jan, JEET (generalized anxiety disorder) (ICD-10 - F41.1) Jan, Essential hypertension (ICD-10 - I10) Today during the appointment we ordered labs to check on how your kidneys are functioning since you have high blood pressure. It is important for us to make sure we protect your kidneys since vision, kidneys and blood circulation are all effected by high blood pressure. It may take us a couple of visits to get your blood pressure in a healthy range and once we do we can space them out a lot more. In addition to medication prescribed we will also talk about healthy changes you can try. Also we will check other labs yearly to screen for other issues. Please remember we are a team and your opinion is very important in all of your healthcare decisions Jan, RLS (restless legs syndrome) (ICD-10 - G25.81) [employer] Other evaluation + Plan note Future Appointments Appointment Date:04/17/2022 07:30:00 AM Scheduled Provider: Location:[facility] Appointment Type:Surgical PAT FT Appointment Date:04/30/2022 10:00:00 AM Scheduled Provider: Location:[facility] Appointment Type:Surgery FT [facility] evaluation + Plan note Future Appointments Appointment Date:04/30/2022 12:45:00 PM Scheduled Provider: Location:[facility] App[facility]ments Appointment Date:06/18/2022 11:30:00 AM Scheduled Provider: Location:[facility] Appointment Type:Surgery FT Diagnostic Tests Pending * Urine Culture [facility]11[facility]22 [facility] noteNo 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 Diagnosis Nephrolithiasis- Primary Calculus of kidney Hydronephrosis with urinary obstruction due to ureteral calculus Left flank pain Abdominal pain, unspecified site Left renal atrophy Renal sclerosis, unspecified [facility] Diagnosis Hydronephrosis with urinary obstruction due to ureteral calculus [facility] Diagnosis Nephrolithiasis- Primary Calculus of kidney documented in this encounter [facility] note* Diagnosis Nephrolithiasis- Primary Calculus of kidney documented in this encounter [facility] note* Diagnosis Preop examination- Primary Preoperative examination, unspecified Nephrolithiasis Calculus of kidney Hypernatriuria Hyperosmolality and/or hypernatremia Hyperoxaluria Other specified disorders of carbohydrate transport and metabolism Hypocitraturia Other nonspecific finding on examination of urine Aciduria (HCC) Other nonspecific finding on examination of urine Urine volume deficient Oliguria and anuria Elevated parathyroid hormone Unspecified endocrine disorder documented in this encounter [facility] note* Diagnosis Screening for genitourinary condition Screening for other and unspecified genitourinary condition documented in this encounter [facility] note* Diagnosis Nephrolithiasis- Primary Calculus of kidney documented in this encounter [facility] note* Diagnosis Nephrolithiasis- Primary Calculus of kidney Abnormal urinalysis Other nonspecific finding on examination of urine Nephrolithiasis Calculus of kidney documented in this encounter [facility] note* Diagnosis Preop examination- Primary Preoperative examination, unspecified Nephrolithiasis Calculus of kidney Nephrolithiasis Calculus of kidney [facility]* Diagnosis Screening for genitourinary condition Screening for other and unspecified genitourinary condition Nephrolithiasis Calculus of kidney documented in this encounter [facility] note* Diagnosis Nephrolithiasis- Primary Calculus of kidney Hyperoxaluria Other specified disorders of carbohydrate transport and metabolism Hypernatriuria Hyperosmolality and/or hypernatremia Hypocitraturia Other nonspecific finding on examination of urine Low urine output Oliguria and anuria documented in this encounter [facility] note* Diagnosis Nephrolithiasis Calculus of kidney documented in this encounter [facility] note* Diagnosis Nephrolithiasis Calculus of kidney [facility] Narrative - Reported* Type Description Date Medical History chronic depression Medical History obesity Medical History hypertension Medical History diabetes mallitus Medical History Gastric bypass Surgical History carpal tunnel release Surgical History hysterectomy Surgical History gastric bypass Hospitalization History see above [employer] Other History general Narrative - Reported* Type Description Date Medical History chronic depression Medical History obesity Medical History hypertension Medical History diabetes mallitus Medical History Gastric bypass Surgical History carpal tunnel release Surgical History hysterectomy Surgical History gastric bypass Surgical History ureter stent Hospitalization History see above [employer] Other History general Narrative - Reported* Type Description Date Medical History chronic depression Medical History obesity Medical History hypertension Medical History diabetes mellitus Medical History Gastric bypass Medical History KIDNEY STONES Surgical History carpal tunnel release Surgical History hysterectomy Surgical History gastric bypass Surgical History ureter stent Hospitalization History see above [employer] Other Hospital course Narrative No data available for this section [facility] [place] [employer] Hospital Discharge instructions No data available for this section [facility] No data available for this section [facility] [place] [employer] Reeziy for referral (narrative) Referred by: TRI REED, Chalo Frazier [facility] [place] [employer] Rekhha for referral (narrative)* Diagnostic Procedure Only (Routine) - Pending Review Specialty Diagnoses / Procedures Referred By Arminda mejia Referred To Contact MOLECULAR & FUNCTIONAL IMAGING Diagnoses Hydronephrosis with urinary obstruction due to ureteral calculus Procedures NM RENAL FLOW/FXN W PHARM KIDNEY IMG MORPHOLOGY VASCULAR FLOW 1 W/RX Samy Odonnell MD [address] [place] [address] Molecular & Functional Imaging [address] [place] [address] Referral ID Status Reason Start Date Expiration Date Visits Requested Visits Authorized [id number] Pending Review Auto-Generat ed Referral 07/14/2022 08/13/2023 1 1 [facility] for referral (narrative)* Diagnostic Procedure Only (Routine) - Closed Specialty Diagnoses / Procedures Referred By Arminda mejia Referred To Contact MOLECULAR & FUNCTIONAL IMAGING Diagnoses Hydronephrosis with urinary obstruction due to ureteral calculus Procedures NM RENAL FLOW/FXN W PHARM KIDNEY IMG MORPHOLOGY VASCULAR FLOW 1 W/RX Samy Odonnell MD [address] [place] [address] Molecular & Functional Imaging [address] [place] [address] Referral ID Status Reason Start Date Expiration Date V isits Requested Visits Authorized [id number] Closed Auto-Generate d Referral 07/21/2022 10/20/2022 1 1 [facility] for referral (narrative)* Diagnostic Procedure Only (Routine) - Pending Review Specialty Diagnoses / Procedures Referred By Contac t Referred To Contact XR IMAGING Diagnoses Nephrolithiasis Procedures XR ABDOMEN 3V KUB W/OBLIQUES RADIOLOGIC EXAM ABDOMEN 3+ VIEWS Samy Odonnell MD [address] [place] [address] Xr Imaging Referral ID Status Reason Start Date Expiration Date Visits Requested Visits Authorized [id number] Pending Review Auto-Generat ed Referral 10/21/2022 11/20/2023 1 1 * Diagnostic Procedure Only (Routine) - Pending Review Specialty Diagnoses / Procedures Referred By Contac t Referred To Contact US IMAGING Diagnoses Nephrolithiasis Procedures US KIDNEY/BLADDER US RETROPERITONEAL REAL TIME W/IMAGE COMPLETE Samy Odonnell MD [address] [place] [address] Us Imaging Referral ID Status Reason Start Date Expiration Date Visits Requested Visits Authorized [id number] Pending Review Auto-Generat ed Referral 10/21/2022 11/20/2023 1 1 [facility] for referral (narrative)* Diagnostic Procedure Only (Routine) - Closed Specialty Diagnoses / Procedures Referred By Contac t Referred To Contact US IMAGING Diagnoses Nephrolithiasis Procedures US KIDNEY/BLADDER US RETROPERITONEAL REAL TIME W/IMAGE COMPLETE Samy Odonnell MD [address] [place] [address] Us Imaging [place] [address] Referral ID Status Reason Start Date Expiration Date V isits Requested Visits Authorized [id number] Closed Auto-Generate d Referral 10/21/2022 11/20/2023 1 1 [facility] for referral (narrative)* Diagnostic Procedure Only (Routine) - Closed Specialty Diagnoses / Procedures Referred By Contac t Referred To Contact XR IMAGING Diagnoses Nephrolithiasis Procedures XR ABDOMEN 3V KUB W/OBLIQUES RADIOLOGIC EXAM ABDOMEN 3+ VIEWS Samy Odonnell MD [address] [place] [address] Xr Imaging [place] [address] Referral ID Status Reason Start Date Expiration Date V isits Requested Visits Authorized [id number] Closed Auto-Generate d Referral 10/21/2022 11/20/2023 1 1 [facility] for visit Narrative* Diagnostic Procedure Only (Routine) - Closed Specialty Diagnoses / Procedures [facility]erred To Contact MOLECULAR & FUNCTIONAL IMAGING Diagnoses Hydronephrosis with urinary obstruction due to ureteral calculus Procedures NM RENAL FLOW/FXN W PHARM KIDNEY IMG MORPHOLOGY VASCULAR FLOW 1 W/RX Samy Odonnell MD [address] [place] [address] Molecular & Functional Imaging [address] [place] [address] Referral ID Status Reason Start Date Expiration Date V isits Requested Visits Authorized [id number] Closed Auto-Generate d Referral 07/21/2022 10/20/2022 1 1 [facility] for visit Narrative* Diagnostic Procedure Only (Routine) - Closed Specialty Diagnoses / Procedures [facility] Referred To Contact US IMAGING Diagnoses Nephrolithiasis Procedures US KIDNEY/BLADDER US RETROPERITONEAL REAL TIME W/IMAGE COMPLETE Samy Odonnell MD [address] [place] [address] Us Imaging [place] [address] Referral ID Status Reason Start Date Expiration Date V isits Requested Visits Authorized [id number] Closed Auto-Generate d Referral 10/21/2022 11/20/[address] [facility] Summary Purpose Family History No Family History Records FoundUnknown Family Member Name Dates Details Family history of myocardial infarction: Mother, Father(V17.3, Z82.49) Status:Active Advance Directives No Advanced Directives Records Found Advance Directive Response Recorded Date/ Time Advance Directives No June 9:49am Chief Complaint and Reason for Visit Chief Complaint n20.0 Medications Administered Section Inactive Administered Medications - up to 3 most recent administrations Medication Order MAR Action Action Date Dose Rate Site cephALEXin 500 mg cap(s) (KEFLEX) 500 mg, ORAL, ONCE (UP TO 30 DAYS AMB), 1 dose, On Wed09/16/22 at 1230, Prior to HOPS procedure, Please document the antimicrobial indication: Prophylaxis Given 09/16/2022 12:26 PM EDT 500 mg lidocaine urojet 2 % 10 mL topical gel (GLYDO) 10 mL, URETHRAL, ONCE (UP TO 30 DAYS AMB), 1 dose, On Wed09/16/22 at 0000, APPLY PRIOR TO PROCEDURE DIRECTED Given 09/16/2022 12:00 PM EDT 10 mL Inactive Administered Medications - up to 3 most recent administrations Medication Order MAR Action Action Date Dose Rate Site lidocaine urojet 2 % 10 mL topical gel (GLYDO) 10 mL, URETHRAL, ONCE (UP TO 30 DAYS AMB), 1 dose, On Wed10/21/22 at 0000, APPLY PRIOR TO PROCEDURE DIRECTED Given 10/21/2022 12:03 PM EDT 10 mL Additional Source Comments INFORMATION SOURCE (unrecogn ized section and content) DATE CREATED AUTHOR 07/25/2020 [facility] DATE CREATED AUTHOR AUTHOR'S ORGANIZ ATION 04/05/2022 [facility] DATE CREATED AUTHOR AUTHOR'S ORGANIZ ATION 05/06/2022 [employer] DATE CREATED AUTHOR AUTHOR'S ORGANIZ ATION 07/16/2022 [facility] DATE CREATED AUTHOR AUTHOR'S ORGANIZ ATION 07/30/2022 [facility] DATE CREATED AUTHOR AUTHOR'S ORGANIZ ATION 08/01/2022 [facility] DATE CREATED AUTHOR AUTHOR'S ORGANIZ ATION 04/28/2023 [facility] DATE CREATED AUTHOR AUTHOR'S ORGANIZ ATION 06/17/2023 [facility] dical Specialists EPIC REASON FOR VISIT (unrecogniz ed section and content) Reason Comments Consult Kidney Stones Reason Comments [employer] - Other Reason Comments Returning Patient's Call Reason Comments Pre-Op Exam Specialty Diagnoses / Procedures Referred By Arminda mejia Referred To Contact ADMITTING Diagnoses Nephrolithiasis Procedures CYSTO/URETERO W/LITHOTRIPSY &INDWELL STENT INSRT CYSTO W/INSERT URETERAL STENT CYSTOURETHROSCOPY W/ URETEROSCOPY AND/OR PYELOSCOPY W/ LITHOTRIPSY INCLUDE INSERTION OF INDWELLING URETERAL STENT CYSTOSCOPY, INSERTION STENT URETERAL [facility] [address] [place] [address] Referral ID Status Reason Start Date Expiration Date Visits Re quested Visits Authorized [id number] 1 1 Reason Onset Date Comments Opened In Error 09/24/2022 Reason Comments Radio Gen A21 Specialty Diagnoses / Procedures Referred By Arminda mejia Referred To Contact XR IMAGING Diagnoses Nephrolithiasis Procedures XR ABDOMEN 3V KUB W/OBLIQUES RADIOLOGIC EXAM ABDOMEN 3+ VIEWS Samy Odonnell MD [address] [place] [address] Xr Imaging [place] [address] Referral ID Status Reason Start Date Expiration Date V isits Requested Visits Authorized [id number] Closed Auto-Generate d Referral 10/21/2022 11/20/2023 1 1 Patient Care team informatio n (unrecognized section and content) Team Status: Inactive Member Role Status Dates Chalo Blum MD Attending Provider Active CESAR Brandon Primary Care Provider Active Team Status: Active Member Role Status Dates CESAR Brandon Primary Care Provider Active Wire Lather Relationship Specialty Start Date End Date Chalo Blum [address] [place] [phone] Referring Urology 07/07/22 Wire Lather Relationship Specialty Start Date End Date Chalo Blum [address] [place] [phone] Referring Urology 07/07/22 Wire Lather Relationship Specialty Start Date End Date [place] [place] [address] Referring Urology 07/07/22 Wire Lather Relationship Specialty Start Date End Date Chalo Blum P [address] [place] [address] Referring Urology 07/07/22 Wire Lather Relationship Specialty Start Date End Date Chalo Blum P [address] [place] [address] Referring Urology 07/07/22 Wire Lather Relationship Specialty Start Date End Date Chalo Blum P [address] [address] Referring Urology 07/07/22 Wire Lather Relationship Specialty Start Date End Date Chalo Blum P [address] [address] Referring Urology 07/07/22 Wire Lather Relationship Specialty Start Date End Date Chalo Blum P [address] [address] Referring Urology 07/07/22 Wire Lather Relationship Specialty Start Date End Date Chalo Blum P [address] [place] [address] Referring Urology 07/07/22 Wire Lather Relationship Specialty Start Date End Date Chalo Blum P [address] [place] [address] Referring Urology 07/07/22 Wire Lather Relationship Specialty Start Date End Date Allen Blumory P [address] [place] [phone] Referring Urology 07/07/22 Wire Lather Relationship Specialty Start Date End Date Chalo Blum [address] [place] [phone] Referring Urology 07/07/22 Wire Lather Relationship Specialty Start Date End Date Chalo Blum [address] [place] [phone] Referring Urology 07/07/22 Wire Lather Relationship Specialty Start Date End Date Chalo Blum [address] [place] [address] Referring Urology 07/07/22 Goals (unrecognized section and content) Goals may be documented in a n alternate section Source Comments (unrecognize d section and content) In the event this informatio n is protected by the Federal Confidentiality of Alcohol and Drug Abuse Patient Records regulations: The Federal rules restrict any use of the information to criminally investigate or prosecute any alcohol or drug abuse patient.[facility] the event this information is protected by the Federal Confidentiality of Alcohol and Drug Abuse Patient Records regulations: The Federal rules restrict any use of the information to criminally investigate or prosecute any alcohol or drug abuse patient.[facility] the event this information is protected by the Federal Confidentiality of Alcohol and Drug Abuse Patient Records regulations: The Federal rules restrict any use of the information to criminally investigate or prosecute any alcohol or drug abuse patient.[facility] HospitalIn the event this information is protected by the Federal Confidentiality of Alcohol and Drug Abuse Patient Records regulations: The Federal rules restrict any use of the information to criminally investigate or prosecute any alcohol or drug abuse patient.[facility] HospitalIn the event this information is protected by the Federal Confidentiality of Alcohol and Drug Abuse Patient Records regulations: The Federal rules restrict any use of the information to criminally investigate or prosecute any alcohol or drug abuse patient.[facility] HospitalIn the event this information is protected by the Federal Confidentiality of Alcohol and Drug Abuse Patient Records regulations: The Federal rules restrict any use of the information to criminally investigate or prosecute any alcohol or drug abuse patient.[facility] HospitalIn the event this information is protected by the Federal Confidentiality of Alcohol and Drug Abuse Patient Records regulations: The Federal rules restrict any use of the information to criminally investigate or prosecute any alcohol or drug abuse patient.[facility] HospitalIn the event this information is protected by the Federal Confidentiality of Alcohol and Drug Abuse Patient Records regulations: The Federal rules restrict any use of the information to criminally investigate or prosecute any alcohol or drug abuse patient.[facility] HospitalIn the event this information is protected by the Federal Confidentiality of Alcohol and Drug Abuse Patient Records regulations: The Federal rules restrict any use of the information to criminally investigate or prosecute any alcohol or drug abuse patient.[facility] HospitalIn the event this information is protected by the Federal Confidentiality of Alcohol and Drug Abuse Patient Records regulations: The Federal rules restrict any use of the information to criminally investigate or prosecute any alcohol or drug abuse patient.[facility] HospitalIn the event this information is protected by the Federal Confidentiality of Alcohol and Drug Abuse Patient Records regulations: The Federal rules restrict any use of the information to criminally investigate or prosecute any alcohol or drug abuse patient.[facility] HospitalIn the event this information is protected by the Federal Confidentiality of Alcohol and Drug Abuse Patient Records regulations: The Federal rules restrict any use of the information to criminally investigate or prosecute any alcohol or drug abuse patient.[facility] HospitalIn the event this information is protected by the Federal Confidentiality of Alcohol and Drug Abuse Patient Records regulations: The Federal rules restrict any use of the information to criminally investigate or prosecute any alcohol or drug abuse patient.[facility] HospitalIn the event this information is protected by the Federal Confidentiality of Alcohol and Drug Abuse Patient Records regulations: The Federal rules restrict any use of the information to criminally investigate or prosecute any alcohol or drug abuse patient.[facility] HospitalIn the event this information is protected by the Federal Confidentiality of Alcohol and Drug Abuse Patient Records regulations: The Federal rules restrict any use of the information to criminally investigate or prosecute any alcohol or drug abuse patient.[facility] HospitalIn the event this information is protected by the Federal Confidentiality of Alcohol and Drug Abuse Patient Records regulations: The Federal rules restrict any use of the information to criminally investigate or prosecute any alcohol or drug abuse patient.[facility] HospitalIn the event this information is protected by the Federal Confidentiality of Alcohol and Drug Abuse Patient Records regulations: The Federal rules restrict any use of the information to criminally investigate or prosecute any alcohol or drug abuse patient.[facility] HospitalIn the event this information is protected by the Federal Confidentiality of Alcohol and Drug Abuse Patient Records regulations: The Federal rules restrict any use of the information to criminally investigate or prosecute any alcohol or drug abuse patient.[facility] HospitalIn the event this information is protected by the Federal Confidentiality of Alcohol and Drug Abuse Patient Records regulations: The Federal rules restrict any use of the information to criminally investigate or prosecute any alcohol or drug abuse patient.[facility] HospitalIn the event this information is protected by the Federal Confidentiality of Alcohol and Drug Abuse Patient Records regulations: The Federal rules restrict any use of the information to criminally investigate or prosecute any alcohol or drug abuse patient.[facility] HospitalIn the event this information is protected by the Federal Confidentiality of Alcohol and Drug Abuse Patient Records regulations: The Federal rules restrict any use of the information to criminally investigate or prosecute any alcohol or drug abuse patient.[facility] FOR RECORDS PERTAINING TO PATIENTS WHO ARE OR HAVE BEEN ENROLLED IN A CHEMICAL DEPENDENCY/SUBSTANCEABUSE PROGRAM, SOME INFORMATION MAY BE OMITTED. This clinical summary was aggregated from multiple sources. Caution should be exercised in using it in the provision of clinical care. This summary normalizes information from multiple sources, and as a consequence, information in this document may materially change the coding, format and clinical context of patient data. In addition, data may be omitted in some cases. CLINICAL DECISIONS SHOULD BE BASED ON THE PRIMARY CLINICAL RECORDS. [facility] provides no warranty or guarantee of the accuracy or completeness of information in this document.
[2023-06-21 11:50] LABS: Hemoglobin 8.7 g/dL (12.0-16.0)
[2023-06-21 13:07] LABS: Percent Iron Saturation 6.6 %
[2023-06-21 13:27] LABS: BUN Creatinine Ratio 14.9; Calcium 8.4 mg/dL (8.5-10.1); Chloride 103 mmol/L (98-107); Estimated GFR (African America 40 (>=60); Estimated GFR (Non-African Ame 33 (>=60); Glucose 89 mg/dL (74-106); Sodium 142 mmol/L (136-145)
== END 2023-06-21 11:37 | disposition home or self-care (01) ==
LOC: LAB 11:37
PROVIDERS: PCP Family Medicine; Visit Provider Family Medicine
DX: I50.83 High output heart failure (principal); N18.32 Chronic kidney disease, stage 3b; N17.9 Acute kidney failure, unspecified; Z86.2 Personal history of diseases of the blood and blood-forming organs and certain disorders involving the immune mechanism; D50.9 Iron deficiency anemia, unspecified
CPT/HCPCS: 36415; 80048; 83540; 83550; 83880; 85018

== ENCOUNTER 2023-07-12 06:50 | Emergency (ER) | payer BC, SELFPAY ==
[2023-07-12] VITALS (17 sets, daily range): BP systolic 77–131; BP diastolic 45–88; PULSE 62–84; RESP 12–20; TEMP 36.4; O2SAT 98–100; BMI 24.8
--- OUTSIDE RECORDS SUMMARY | 2023-07-12 07:09 | XMS_ITS | CCD ---
Author Name Unknown Address [address] [place] [address] Organization [facility] Care Team Providers Care Academic Associate Name Role Phone Unavailable Primary Care Provider Unavailabl e MARTINEZ, JANICE Referring Unavailable MARTINEZ, JANICE Referring Unavailable MARTINEZ, JANICE Referring Unavailable MARTINEZ, JANICE Referring Unavailable MARTINEZ, JANICE Referring Unavailable MARTINEZ, JANICE Referring Unavailable MARTINEZ, JANICE Referring Unavailable MARTINEZ, JANICE Referring Unavailable MARTINEZ, JANICE Referring Unavailable MARTINEZ, JANICE Referring Unavailable MARTINZE, JANICE Referring Unavailable MARTINEZ, JANICE Referring Unavailable Balbina Napoles Unavailable SUZI MCHUGH Primary Care Physician BALBINA NAPOLES Primary Care Unavailable FABY, DR CALEB [place] Admitting Unavailmindi HOBBS, DR CALEB [place] Attending Unavailabl e FABY, DR CALEB [place] Consulting Unavailabl e TORRI, DR NATACHA العراقي Consulting Unavailable BALBINA NAPOLES Primary Care Unavailable JEISON, DR SUZI Urrutia Admitting Unavailable JEISON, DR SUZI Urrutia Attending Unavailable JEISON, DR SUZI Urrutia Consulting Unavailable KULWANT, DR CHALO Frazier Consulting Unavailable TORRI, DR NATACHA العراقي Consulting Unavailable MARLYS HERNANDEZ Consulting Unavailable SANDY CHEN Consulting Unavailable HARMONY BENITEZ Consulting Unavailable KULWANT, DR CHALO Frazier Admitting Unavailable KULWANT, DR CHALO Frazier Attending Unavailable BALBINA NAPOLES Primary Care Unavailable KULWANT, DR CHALO Frazier Consulting Unavailable TORRI, DR [...] Unavailable YESIKA, BALBINA J Primary Care Physician [phone] Balbina Napoles Unavailable Unavailable Unavailable MD Chalo Blum Attending Provider [phone] CESAR Napoles Balbina Primary Care Provider Chalo [...] Unavailable ODONNELLSAMY Referring Unavailable Mao Irina Unavailable Gaurang'LARISAMARLEY PIKE Attending Unavailable ODONNELL, SAMY Admitting Unavailable ODONNELL, SAMY Attending Unavailable ODONNELL, SAMY Attending Unavailable ODONNELL, SAMY Admitting Unavailable ODONNELL, SAMY Referring Unavailable ODONNELL, SAMY Attending Unavailable ODONNELL, SAMY Referring Unavailable ODONNELL, SAMY Referring Unavailable ODONNELL, SAMY Attending Unavailable ODONNELL, SAMY Referring Unavailable O'LARISAMARLEY BENITES Attending Unavailable ODONNELL, SAMY Referring Unavailable ODONNELL, SAMY Admitting Unavailable O'LARISA, MARLEY Referring Unavailable SAMY ODONNELL Attending Unavailable SAMY ODONNELL Attending Unavailable JUSTIN MARLEY Attending Unavailable JUSTIN MARLEY Attending Unavailable JUSTIN MARLEY Attending Unavailable Justin Marley MD Primary Care Provider [phone] Allergies Allergy Classification Reported Allergen(s) Allergy Type Date of Onset Reaction(s) Facility (15 sources) prednisoLONE; Translations: [PREDNISOLONE] Drug Allergy 3 Hives [facility] (20 sources) valACYclovir; Translations: [valacyclovir] Drug Allergy 2 hives, Weal (disorder) [facility] (20 sources) predniSONE; Translations: [prednisone] Drug Allergy 2 Weal (disorder), Hives [facility] (1 source) predniSONE Drug Allergy [facility] (2 sources) valACYclovir; Translations: [Valtrex] Drug Allergy [facility] (2 sources) Prednisone Allergy to substance 2 [facility] (2 sources) traMADol Drug Allergy [facility] (2 sources) valACYclovir Drug Allergy 4 [facility] Medications Current Medications Medication Drug Class(es) Dates Sig (Normalized) Sig (Original) acetaminophen 500 mg oral tablet (2 sources) Start: 10-12-2022 End: 10-26-2022 take 2 tablets by mouth every six hours acetaminophen (TYLENOL EXTRA STRENGTH) 500 mg tablet Take 2 tablets by mouth every 6 hours for 14 days. 112 tablet 0 10/12/2022 10/26/2022 Active Comment on above: Take 2 tablets by [facility] every 6 hours for 14 days. acetaminophen 325 mg / HYDROcodone bitartrate 5 mg oral tablet (2 sources) Opioid Agonist Start: 06-18-2022 acetaminophen-hydroc odone 325 mg-5 mg oral tablet 1 tab(s), Oral, q4hr Pain, 7 tab(s), Refill(s) 0, [id number], 160, cm, 06/11/22 9:42:00 EST, Height/Length Dosing, [...] Comment on above: Take 1 capsule by [facility] twice daily. duloxetine 60 mg Cap-DR (5 sources) Start: 03-31-2022 take 1 capsule by mouth once daily duloxetine 60 mg Cap-DR 60 mg, Oral, Daily, Refills(s) 0, Depression Start Date: 03/31/22 Status: Ordered furosemide 40 mg oral tablet (2 sources) Loop Diuretic Start: 06-16-2023 End: 06-15-2024 take 1 tablet by mouth in the morning furosemide (Lasix) 40 MG tablet Indications: Stage 3b chronic kidney disease (HCC) (CMS/HCC) Take 1 tablet (40 mg) by mouth in the morning. 30 tablet 0 06/16/2023 06/15/2024 Active hydrOXYzine hydrochloride 10 mg oral tablet (1 source) Antihistamine Start: 03-18-2020 hydrOXYzine HCl 10 MG 1 tablet as needed Orally at bedtime for 90 days Feb, Active losartan potassium 25 mg oral tablet (2 sources) Angiotensin 2 Receptor Rebecca Start: 06-16-2023 End: 06-15-2024 take 1 tablet by mouth in the morning losartan (Cozaar) 25 MG tablet Indications: High output congestive heart failure (CMS/HCC) Take 1 tablet (25 mg) by mouth in the morning. 30 tablet 0 06/16/2023 06/15/2024 Active nitrofurantoin, macrocrystals 25 mg / nitrofurantoin, [...] on above: Take 1 capsule by mo [facility] twice daily for 7 days. Take [...] Comment on above: Take 1 tablet by [facility] every 6 hours as needed for pain for up to 3 days. rOPINIRole 0.5 mg oral tablet (20 sources) Nonergot Dopamine Agonist Start: 03-31-2022 take 2 tablets by mouth three times daily ropinirole 0.5 mg Tab 1 mg = 2 tab(s), Oral, TID, for restless leg syndrome, Refills(s) 0 Start Date: 03/31/22 Status: Ordered Start: 02-02-2022 take 1 tablet by [facility] once daily at bedtime rOPINIRole HCl 0.5 [...] for 7 day(s), 14 tab(s), Refill(s) 0, [id number], 160, cm, 06/11/22 9:42:00 EST, Height/Length Dosing, [...] Comment on above: Take 1 capsule by [facility] three times daily for 3 days. Take 1 capsule by [facility] three times daily. DULoxetine 60 mg [...] Active Start: 09-07-2022 take 1 tablet by josé th every eight hours as needed oxybutynin (DITROPAN) 5 mg tablet Take 1 tablet by mouth three times daily as needed for bladder spasm 42 tablet 0 09/07/2022 Active Start: 03-31-2022 take 1 mg by mouth once daily oxybutynin 5 mg ER Tab mg tab(s), Oral, Daily, Refills(s) 0 Start Date: 03/31/22 Status: Ordered Comment on above: Take 1 tablet by josé th three times daily as needed for bladder [...] above: Take 1 capsule by mo ut once daily 30 minutes after the same meal each day. Problems Active Problems Problem Classification Problem Date Documented Date Episodic/Chronic Acute and unspecified renal failure (1 source) Acute kidney failure, unspecified; Translations: [ACUTE KIDNEY FAILURE UNSPECIFIED] Onset: 2 Episodic Anxiety disorders (6 sources) Generalized anxiety disorder; Translations: [Generalized anxiety disorder] Onset: 2 Resolved: 2 Chronic Chronic kidney disease (8 sources) Chronic kidney disease stage 3A ; Translations: [Stage 3a chronic kidney disease] Onset: 2 06-21-2023 Chronic Chronic kidney disease (7 sources) Chronic kidney disease; Translations: [CHRONIC KIDNEY DISEASE STAGE 3A] Onset: 2 Congestive heart failure; nonhypertensive (4 sources) High output heart failure; Translations: [High output heart failure] Onset: 4 06-28-2023 Chronic Deficiency and other anemia (2 sources) Anemia of renal disease; Translations: [Anemia in chronic kidney disease] Chronic Deficiency and other anemia (6 sources) Anemia 03-31-2022 Episodic Deficiency and other anemia (1 source) Anemia, unspecified; Translations: [ANEMIA UNSPECIFIED] Onset: 2 Episodic Deficiency and other anemia (2 sources) Iron deficiency anemia; Translations: [Other iron deficiency anemias] 06-22-2023 Episodic Diabetes mellitus with complications (3 sources) Type 2 diabetes mellitus with diabetic chronic kidney disease; Translations: [Disorder of kidney due to diabetes mellitus] Onset: 2 Chronic Essential hypertension (18 sources) Essential hypertension; Translations: [Essential (primary) hypertension] [...] of ] Onset: 3 Episodic Mood disorders (13 sources) Recurrent major depressive episodes, mild ; Translations: [Major depressive disorder, recurrent, mild] Onset: 2 Resolved: 2 Chronic Nephritis; nephrosis; renal sclerosis (2 sources) Atrophy of left kidney; Translations: [Atrophy of kidney (terminal)] Onset: 3 Chronic Osteoarthritis (6 sources) Arthritis 03-31-2022 Chronic Other aftercare (1 source) Other senior living (current) drug therapy; Translations: [OTH OYSTER FLOATER CURRENT DRUG THERAPY] Onset: 2 Episodic Other diseases of kidney and ureters (2 sources) Secondary hyperparathyroidism; Translations: [Secondary hyperparathyroidism of renal origin] Chronic Other diseases of kidney and ureters (2 sources) Hydronephrosis; Translations: [Hydronephrosis with renal and ureteral calculous obstruction] Episodic Other endocrine disorders (1 source) Hormone increase; Translations: [Endocrine disorder, unspecified] Episodic Other gastrointestinal disorders (2 sources) Malabsorption - iron; Translations: [Intestinal malabsorption, unspecified] 06-28-2023 Chronic Other gastrointestinal disorders (1 source) Bariatric surgery status; Translations: [BARIATRIC SURGERY STATUS] Onset: 2 Episodic Other gastrointestinal disorders (2 sources) Abdominal bloating; Translations: [Abdominal distension (gaseous)] 06-21-2023 Episodic Other gastrointestinal disorders (2 sources) Slow transit constipation; Translations: [Slow transit constipation] Onset: 4 06-03-2023 Episodic Other hereditary and degenerative nervous system conditions (9 sources) Restless legs; Translations: [Restless legs syndrome] 04-17-2022 Chronic Other hereditary and degenerative nervous system conditions (2 sources) Restless legs syndrome Onset: 2 Resolved: 2 Chronic Other nervous system disorders (2 sources) Bilateral meralgia paresthetica; Translations: [Meralgia paresthetica, bilateral lower limbs] Onset: 4 06-03-2023 Chronic Other nutritional; endocrine; and metabolic disorders (1 source) Aciduria; Translations: [Disorder of amino-acid metabolism, unspecified] Chronic Other nutritional; endocrine; and metabolic disorders (1 source) Disorder of amino-acid metabolism, unspecified; Translations: [Aciduria (HCC)] Onset: 3 Chronic Other nutritional; endocrine; and metabolic disorders (1 source) Overweight in adulthood with body mass index of 25 or more but less than 30; Translations: [Overweight] Episodic Other nutritional; endocrine; and metabolic disorders (2 sources) Abnormal weight gain; Translations: [Abnormal weight gain] 06-21-2023 Episodic Other screening for suspected conditions (not mental disorders or infectious disease) (2 sources) Patient encounter status; Translations: [Encounter for screening for other disorder] Episodic Other skin disorders (3 sources) Localized swelling, mass and lump, right upper limb; Translations: [LOC SWELL MASS LUMP RT UPPER LIMB] Onset: 2 Episodic Other upper respiratory disease (2 sources) Allergic rhinitis due to pollen; Translations: [Allergic rhinitis due to pollen] Onset: 4 06-03-2023 Chronic Phlebitis; thrombophlebitis and thromboembolism (1 source) Phlebitis and thrombophlebitis of superficial vessels of right lower extremity; Translations: [PHLEBITIS AND TP SUP VES RT LOW EXT] Onset: 2 Episodic Residual codes; unclassified (4 sources) Insomnia; Translations: [Insomnia, unspecified] Episodic Residual codes; unclassified (2 sources) Bilateral lower limb edema; Translations: [Localized edema] 06-21-2023 Episodic Residual codes; unclassified (2 sources) History of total hysterectomy with bilateral salpingo-oophorectomy; Translations: [Acquired absence of both cervix and uterus] Onset: 4 06-03-2023 Episodic Residual codes; unclassified (2 sources) Body mass index 20-24 - normal; Translations: [Body mass index (BMI) 23.0-23.9, adult] Onset: 4 06-08-2023 Episodic Spondylosis; intervertebral disc disorders; other back problems (2 sources) Prolapsed lumbar intervertebral disc; Translations: [Other intervertebral disc displacement, lumbar region] Onset: 4 06-03-2023 Chronic Unclassified (1 source) CONTACT W/AND (SUSP) EXPOS [...] Translations: [Calculus of ureter] Onset: 03-31-2022 Episodic Diabetes mellitus without complication (12 sources) Type 2 diabetes mellitus without complication; Translations: [Type 2 diabetes mellitus without complications] Onset: 06-03-2023 Resolved: 06-08-2023 Chronic Fluid and electrolyte disorders (6 sources) Sodium [...] Translations: [Elevated parathyroid hormone] Onset: 09-07-2022 Episodic Other nutritional; endocrine; and metabolic disorders (2 sources) Morbid obesity; Translations: [Morbid (severe) obesity due to excess calories] Onset: 06-03-2023 Resolved: 06-08-2023 06-08-2023 Chronic Unclassified (1 source) Never smoked tobacco; Translations: [Never a smoker] Results Test Name Value Interpretation Reference Range Facility US KIDNEY/BLADDERon 04-26-20 KIDNEY/BLADDER * * *Final Report* * * DATE OF EXAM: Apr 26 2023 2:38PM TED 1055 - KIDNEY/BLADDER / PROCEDURE REASON: Nephrolithiasis * * [...] shadowing calculus. Stable severe left renal atrophy. Manager Finance: [facility] Transcribe Date/Time: Apr 26 2023 2:45P Dictated by : ALBERT FRIEDMAN MD This examination was interpreted and the report reviewed and electronically signed by: DAPHNE FAN MD on Apr 26 2023 4:07PM EST [id number] Normal [facility] XR ABDOMEN 3V KUB W/OBLIQUES on [...] at the left mid and upper abdomen. Manager Finance: [facility] Transcribe Date/Time: Apr 26 2023 4:04P Dictated by : DAPHNE FAN MD This examination was interpreted and the report reviewed and electronically signed by: DAPHNE FAN MD on Apr 26 2023 4:11PM EST [id number] [facility] CNOVon 10-21-2022 CNOV Office Visit (UROSMN ) ELIZABETH IRVIN ([id number]) 1965 F Date Time Provider Department 10/21/22 12:15 PM SAMY ODONNELL During your visit today, we recorded the following information about you: Samy Odonnell MD 10/21/2022 12:53 PM Signed CYSTOSCOPY PROCEDURE [facility] NOTE Pertinent History and Physical Exam [...] Samy Odonnell MD Director, Surgical Stone Disease [facility] Pager [phone] 10/21/2022 Dana Renteria RN 10/21/2022 12:52 PM Signed Actual procedure/procedure scheduled: Yes Performing provider/scheduled provider: Yes Patient was roomed in: Q9- [employer] Police Officer offered:Patient declines Patient arrived in the room [...] Education Session: None Instruction Provided To: Patient Storage Management Consultant Present: not applicable Discipline: Nursing Learning Topic: [...] and/or imag (more content not included)... [facility] ANES POSTPROC EVALon 023 ANES POSTPROC EVAL HNO ID: [id number] Author: Gabi Dougherty MD Service: ? Author Type: Anesthesiologist Type: Anesthesia Postprocedure Evaluation Filed: 10/12/2022 3:28 PM Note Text: POST ANESTHESIA EVALUATION NOTE : 1965 Procedure Summary Date: 10/12/22 Room / Location: [address] [place] Anesthesia Start: 728 Anesthesia Stop: 1029 Procedure: [...] October 12, 2022 TIME: 3:28 PM CSN: [id number] [facility] ANES PRE-OPon 10-12-2022 ANES PRE-OP HNO ID: [id number] Author: Gabi Dougherty MD Service: ? Author Type: Anesthesiologist Type: Anesthesia Preprocedure Evaluation Filed: 10/12/2022 9:09 AM Note Text: ANESTHESIOLOGY DAY OF SURGERY NOTE : 1965 Procedure Information Anesthesia Start Date/Time: 10/12/22 0729 Procedure: MINI PERC NEPHROLITHOTOMY LITHOTRIPSY,STONE EXTRACTION,ANTEGRADE URETEROSCOPY,STENT PLACEMENT WHEN PERFORMED INCD IMAGING UP TO 2cm (Right: Kidney) Location: MAIN OR23 / [facility] Surgeons: Samy Odonnell MD Estimated body mass [...] and consent discussed: yes. Patient / Responsible Democrat agrees to proceed: yes Patient / Surrogate agrees to blood products: Yes DNR status not reviewed with patient and/or family prior to surgery. Significant changes in the patient condition since the History and Physical, not otherwise documented in primary service progress note: no. Vitals Value Taken Time BP 139/83 10/12/22 0559 Pulse 70 10/12/22 0559 Resp 20 10/12/22 0559 Temp 37.1 ?C (98.8 ?F) 10/12/22 0559 SpO2 100 % 10/12/22 0559 Facility-Administered Medications as of 10/12/2022 Medication Dose [...] October 12, 2022 TIME: 9:08 AM CSN: [id number] [facility] Bacteria Ur Culton 3 Bacteria identified Cx Nom (U) CULTURE, URINE: No growth (<1,000 CFU/ml) [facility] Comment on above: Performed By: #### 6 30-4 ####[facility] [id number] [address] [place] CALCULI ANALYSISon 3 Calculus analysis [Interp] [facility] Comment on above: Order Comment: Speci men Type: CALCULUS SPECIMENOrdering Facility: [facility] Address: [address] [place] [address] Result Comment: This test was developed and its performance characteristics determined by [facility] ([facility]). It has not been cleared or approved by the FDA. [facility] is regulated under CLIA as qualified to perform high-complexity testing. This test is used for clinical purposes. It should not be regarded as investigational or for research. Performed By: #### C SA ####[facility] [id number] [address] STATES OF [facility] CALCULUS [place]OWN [facility] Comment on above: Order Comment: Speci men Type: CALCULUS SPECIMENOrdering Facility: [facility] Address: [address] [place] [address] Performed By: #### C SA ####[facility] [id number] [address] [place] CALCULUS COMPOSITION 1 70% Calcium Oxala te Monohydrate [facility] Comment on above: Order Comment: Speci men Type: CALCULUS SPECIMENOrdering Facility: [facility] Address: [address] [place] [address] Performed By: #### C SA ####[facility] [id number] [address] [place] CALCULUS COMPOSITION 2 20% Calcium Oxala te Dihydrate [facility] Comment on above: Order Comment: Speci men Type: CALCULUS SPECIMENOrdering Facility: [facility] Address: [address] [place] [address] Performed By: #### C SA ####[facility] [id number] [address] [place] CALCULUS COMPOSITION 3 10% Minor Components [facility] Comment on above: Order Comment: Speci men Type: CALCULUS SPECIMENOrdering Facility: [facility] Address: [address] [place] [address] Performed By: #### C SA ####[facility] [id number] [address] CALCULUS SIZE AND WT Multiple pieces. 0.0655 GRAMS [facility] Comment on above: Order Comment: Speci men Type: CALCULUS SPECIMENOrdering Facility: [facility] Address: [address] [place] [address] Performed By: #### C SA ####[facility] [id number] [address] [place] CALCULUS TYPE CALCULI/CALCULUS Normal [facility] Comment on above: Order Comment: Speci men Type: CALCULUS SPECIMENOrdering Facility: [facility] Address: [address] [place] [address] Performed By: #### C SA ####[facility] [id number] [address] [place] OPERATIVE NOon 10-12-2022 OPERATIVE NO HNO ID: [id number] Author: Samy Odonnell MD Service: Urology Author Type: Physician Type: Operative Report Filed: 10/21/2022 11:54 AM Note Text: OPERATIVE/PROCEDURE REPORT LOG ID: [id number] Surgery/Procedure Date: 10/12/2022 Incision/Procedure Start Time: 8:36 AM Incision Close/Procedure End Time: 10:05 AM Surgeon(s)/Procedural ist(s) and Forging Machine Hand(s): Surgeon(s) and Role: * Samy Odonnell MD - Primary * Nori Jefferson MD - Resident - Assisting Procedure(s): Right Flexible ureteroscopy Percutaneous renal access Dilation of renal access tract Right percutaneous nephrolithotomy - Mini PCNL (16Fr) 2 cm max dimension [id number] right JJ stent insertion Physician time for fluoroscopic imaging and interpretation <1hr Anatomic Site: Right kidney Approach: Endoscopic Anesthesia: General Operative Indications: This is a 56 year old female with a right renal pelvis stone (15mm). After discussing the risks, benefits, and alternatives of the procedure the patient has elected to pursue management of their condition via the aforementioned surgery. Intraoperative Findings: Stone [place]: Primary stone 15 mm renal pelvis; Additional [...] cystoscope was used to perform cystourethroscopy. A 5-israeli open-ended ureteral catheter was used to intubate [...] out through the urethral meatus to gain gxrlopq-xqi-ccogvzt access. A 4-Irish ureteral glide catheter was used to exchange the ysrdztp-wjs-ywirzth guidewire for an Amplatz superstiff wire. The [...] mls S (more content not included)... [facility] Bacteria Ur Culton 3 Bacteria identified Cx [...] technique or straight catheterization for???urine???collect ion. [facility] Comment on above: Performed By: #### 6 30-4 ####[facility] [id number] BALDEVDana [facility] [place] [address] [place] Basic metabolic 2000 panelon 09-28-2022 Anion gap [Moles/Vol] 8 mmol/L Low 9-18 [facility] Comment on above: Order Comment: Speci men Type: BLOOD SPECIMEN Ordering Facility[facility] Address: [address] [address] Performed By: #### 2 4321-2 #### [facility] CLIA [id number] [address] [place] [address] Calcium [Mass/Vol] 9.5 mg/dL Normal 8.5-10.2 [facility] Comment on above: Order Comment: Speci men Type: BLOOD SPECIMEN Ordering Facility: [facility] Address: [address] [address] Performed By: #### 2 4321-2 #### [facility] CLIA [id number] [address] [place] [address] Chloride [Moles/Vol] 108 mmol/L High 97-105 [facility] Comment on above: Order Comment: Speci men Type: BLOOD SPECIMEN Ordering Facility: [facility] Address: [address] [address] Performed By: #### 2 4321-2 #### [facility] CLIA [id number] [address] [place] [address] CO2 [Moles/Vol] 24 mmol/L Normal 22-30 [facility] Comment on above: Order Comment: Speci men Type: BLOOD SPECIMEN Ordering Facility[facility] Address: [address] [address] Performed By: #### 2 4321-2 #### [facility] CLIA [id number] [address] [place] [address] Creatinine [Mass/Vol] 1.62 mg/dL High 0.58-0.96 [facility] Comment on above: Order Comment: Speci men Type: BLOOD SPECIMEN Ordering Facility[facility] Address: [address] [address] Performed By: #### 2 4321-2 #### [facility] CLIA [id number] [address] [place] [address] ESTIMATED GLOMERULAR FILTRATION RATE 37 mL/min/1.73m??? Low >=60 [facility] Comment on above: Order Comment: Tim jeff Type: BLOOD SPECIMEN Ordering Facility[facility] Address: [address] [place] [address] Result Comment: Reema mated Glomerular Filtration Rate [...] GFR. Performed By: #### 2 4321-2 #### [facility] CLIA [id number] [address] [place] [address] Glucose [Mass/Vol] 89 mg/dL Normal 74-99 [facility] Comment on above: Order Comment: Tim jeff Type: BLOOD SPECIMEN Ordering Facility: [facility] Address: [address] [place] [address] Result Comment: The [place] [employer] (ADA) provides guidance for cutoff [...] Standards of Medical Care in Diabetes 2016, [place] [employer]. Diabetes Care. 2016.39(Suppl 1). Performed By: #### 2 4321-2 #### [facility] CLIA [id number] [address] [place] [address] Potassium [Moles/Vol] 5.0 mmol/L Normal 3.7-5.1 [facility] Comment on above: Order Comment: Speci men Type: BLOOD SPECIMEN Ordering Facility: [facility] Address: [address] [place] [address] Performed By: #### 2 4321-2 #### [facility] CLIA [id number] [address] [place] [address] Sodium [Moles/Vol] 140 mmol/L Normal 136-144 [facility] Comment on above: Order Comment: Speci men Type: BLOOD SPECIMEN Ordering Facility: [facility] Address: [address] [place] [address] Performed By: #### 2 4321-2 #### [facility] CLIA [id number] [address] [place] [address] Urea nitrogen [Mass/Vol] 20 mg/dL Normal 7-21 [facility] Comment on above: Order Comment: Speci men Type: BLOOD SPECIMEN Ordering Facility: [facility] Address: [address] [place] [address] Performed By: #### 2 4321-2 #### [facility] CLIA [id number] [address] [place] [address] CBC W Auto Differential pane l (Bld)on 09-28-2022 Basophils (Bld) [#/Vol] 0.04 10*3/uL Normal <0.11 [facility] Comment on above: Order Comment: Speci men Type: BLOOD SPECIMENOrdering Facility: [facility] Address: [address] [place] [address] Performed By: #### 5 7021-8 ####[facility] [id number] [place] [address] Basophils/100 WBC (Bld) 1.0 % Normal [facility] Comment on above: Order Comment: Speci men Type: BLOOD SPECIMENOrdering Facility: [facility] Address: [address] [place] [address] Performed By: #### 5 7021-8 ####[facility]CLIA [id number] [place] [address] Differential cell count method Nom (Bld) Auto Normal [facility] Comment on above: Order Comment: Speci men Type: BLOOD SPECIMENOrdering Facility: [facility] Address: [address] [place] [address] Performed By: #### 5 7021-8 ####[facility] [id number] [place] [address] Eosinophils (Bld) [#/Vol] 0.12 10*3/uL Normal <0.46 [facility] Comment on above: Order Comment: Speci men Type: BLOOD SPECIMENOrdering Facility: [facility] Address: [address] [place] [address] Performed By: #### 5 7021-8 ####[facility] [id number] [place] [address] Eosinophils/100 WBC (Bld) 3.1 % Normal [facility] Comment on above: Order Comment: Speci men Type: BLOOD SPECIMENOrdering Facility: [facility] Address: [address] [place] [address] Performed By: #### 5 7021-8 ####[facility]CLIA [id number] [place] [address] Erythrocyte distribution width (RBC) [Ratio] 14.3 % Normal 11.5-15.0 [facility] Comment on above: Order Comment: Speci men Type: BLOOD SPECIMENOrdering Facility: [facility] Address: [address] [place] [address] Performed By: #### 5 7021-8 ####[facility]IA [id number] [place] [address] Hematocrit (Bld) [Volume fraction] 31.4 % Low 36.0-46.0 [facility] Comment on above: Order Comment: Speci men Type: BLOOD SPECIMENOrdering Facility: [facility] Address: [address] [place] [address] Performed By: #### 5 7021-8 ####[facility]CLIA [id number] [place] [address] Hemoglobin (Bld) [Mass/Vol] 9.3 g/dL Low 11.5-15.5 [facility] Comment on above: Order Comment: Speci men Type: BLOOD SPECIMENOrdering Facility: [facility] Address: [address] [place] [address] Performed By: #### 5 7021-8 ####[facility]CLIA [id number] [place] [address] Immature granulocytes (Bld) [#/Vol] 10*3/uL Normal <0.10 [facility] Comment on above: Order Comment: Speci men Type: BLOOD SPECIMENOrdering Facility: [facility] Address: [address] [place] [address] Performed By: #### 5 7021-8 ####[facility]CLIA [id number] [place] [address] Immature granulocytes/100 WBC (Bld) 0.3 % Normal [facility] Comment on above: Order Comment: Speci men Type: BLOOD SPECIMENOrdering Facility: [facility] Address: [address] [place] [address] Performed By: #### 5 7021-8 ####[facility]CLIA [id number] [place] [address] Lymphocytes (Bld) [#/Vol] 1.16 10*3/uL Normal 1.00-4.00 [facility] Comment on above: Order Comment: Speci men Type: BLOOD SPECIMENOrdering Facility: [facility] Address: [address] [place] [address] Performed By: #### 5 7021-8 ####[facility]IA [id number] [place] [address] Lymphocytes/100 WBC (Bld) 30.4 % Normal [facility] Comment on above: Order Comment: Speci men Type: BLOOD SPECIMENOrdering Facility: [facility] Address: [address] [place] [address] Performed By: #### 5 7021-8 ####[facility]CLIA [id number] [place] [address] MCH (RBC) [Entitic mass] 27.3 pg Normal 26.0-34.0 [facility] Comment on above: Order Comment: Speci men Type: BLOOD SPECIMENOrdering Facility: [facility] Address: [address] [place] [address] Performed By: #### 5 7021-8 ####[facility]IA [id number] [place] [address] MCHC (RBC) [Mass/Vol] 29.6 g/dL Low 30.5-36.0 [facility] Comment on above: Order Comment: Speci men Type: BLOOD SPECIMENOrdering Facility: [facility] Address: [address] [place] [address] Performed By: #### 5 7021-8 ####[facility]CLIA [id number] [place] [address] MCV (RBC) [Entitic vol] 92.1 fL Normal 80.0-100.0 [facility] Comment on above: Order Comment: Speci men Type: BLOOD SPECIMENOrdering Facility: [facility] Address: [address] [place] [address] Performed By: #### 5 7021-8 ####[facility]IA [id number] [place] [address] Monocytes (Bld) [#/Vol] 0.32 10*3/uL Normal <0.87 [facility] Comment on above: Order Comment: Speci men Type: BLOOD SPECIMENOrdering Facility: [facility] Address: [address] [place] [address] Performed By: #### 5 7021-8 ####[facility]CLIA [id number] [place] [address] Monocytes/100 WBC (Bld) 8.4 % Normal [facility] Comment on above: Order Comment: Speci men Type: BLOOD SPECIMENOrdering Facility: [facility] Address: [address] [address] Performed By: #### 5 7021-8 ####[facility]CLIA [id number] [place] [address] Neutrophils (Bld) [#/Vol] 2.17 10*3/uL Normal 1.45-7.50 [facility] Comment on above: Order Comment: Speci men Type: BLOOD SPECIMENOrdering Facility: [facility] Address: [address] [address] Performed By: #### 5 7021-8 ####[facility]CLIA [id number] [place] [address] Neutrophils/100 WBC (Bld) 56.8 % Normal [facility] Comment on above: Order Comment: Speci men Type: BLOOD SPECIMENOrdering Facility: [facility] Address: [address] [place], [place] [address] Performed By: #### 5 7021-8 ####[facility]CLIA [id number] [place] [address] Nucleated RBC (Bld) [#/Vol] 10*3/uL Normal <0.01 [facility] Comment on above: Order Comment: Speci men Type: BLOOD SPECIMENOrdering Facility: [facility] Address: [address] [address] Performed By: #### 5 7021-8 ####[facility]CLIA [id number] [place] [address] Nucleated RBC/100 WBC (Bld) [Ratio] 0.0 /100 WBC Normal [facility] Comment on above: Order Comment: Speci men Type: BLOOD SPECIMENOrdering Facility: [facility] Address: [address] [place] [address] Performed By: #### 5 7021-8 ####[facility]CLIA [id number] [place] [address] Platelet mean volume (Bld) [Entitic vol] 8.7 fL Low 9.0-12.7 [facility] Comment on above: Order Comment: Speci men Type: BLOOD SPECIMENOrdering Facility: [facility] Address: [address] [place] [address] Performed By: #### 5 7021-8 ####[facility]CLIA [id number] [place] [address] Platelets (Bld) [#/Vol] 338 10*3/uL Normal 150-400 [facility] Comment on above: Order Comment: Speci men Type: BLOOD SPECIMENOrdering Facility: [facility] Address: [address] [place] [address] Performed By: #### 5 7021-8 ####[facility]CLIA [id number] [place] [address] RBC (Bld) [#/Vol] 3.41 10*6/uL Low 3.90-5.20 [facility] Comment on above: Order Comment: Speci men Type: BLOOD SPECIMENOrdering Facility: [facility] Address: [address] [place] [address] Performed By: #### 5 7021-8 ####[facility]CLIA [id number] [place] [address] WBC (Bld) [#/Vol] 3.82 10*3/uL Normal 3.70-11.00 [facility] Comment on above: Order Comment: Speci men Type: BLOOD SPECIMENOrdering Facility: [facility] Address: [place] [address] Performed By: #### 5 7021-8 ####[facility] LABCLIA [id number] [place] [address] CNOVon 09-28-2022 CNOV Office Visit (UROLMN ) ELIZABETH RIVIN ([id number]) 1965 F Date Time Provider Department 09/28/22 1:30 PM MARLEY CHOE During your visit today, we recorded the following information about you: Pulse Blood pressure Weight Height 75/minute 119/79 60.8 kg 1.6 m Marley Gutierrez PA-C 09/28/2022 2:56 PM Signed [facility] PRE-OP NOTE Elizabeth [...] Signed: Yes. Pre-op HANDP Done by Physician Forging Machine Hand: Yes. PATIENT INSTRUCTIONS FOR SURGERY 1.) DO [...] + HTN. No history of angina, CHF, [place], cardiac surgery of stents. Respiratory: Negative for [...] problems. Neurologic: No history of TIA's, stroke, AUTO LOCATOR tumor, impaired sensorium, hemiplegia or paraplegia No neurological symptoms or problems. Hematology/Oncology: No history of bleeding or clotting disord (more content not included)... Normal [facility] HISTORY PHYSICALon 3 HISTORY PHYSICAL HNO ID: [id number] Author: Marley Brown PA-C Service: ? Author Type: Physician Forging Machine Hand Type: HANDP Filed: 09/28/2022 2:56 PM Note [...] + HTN. No history of angina, CHF, [place], cardiac surgery of stents. Respiratory: Negative for [...] problems. Neurologic: No history of TIA's, stroke, AUTO LOCATOR tumor, impaired sensorium, hemiplegia or paraplegia No [...] (no units) Date Value 09/07/2022 Negative Specific [place], Ur (no units) Date Value 09/07/2022 1.014 [...] ASSESSMENT AND (more content not included)... Normal [facility] CNPNon 09-24-2022 CNPN Telephone (UROLMN) ELIZABETH IRVIN ([id number]) 1965 F Date Time Provider Department 09/24/22 TERESITA ESTEVES During your visit today, we recorded the following information about you: Teresita Esteves RN 09/24/2022 4:44 PM Signed Called patient to review PTH and advise per Marley that an endocrinology consult was being placed. No answer, VM left. Teresita Esteves RN Allergies As of Date: 09/24/2022 Noted Allergy Reaction PREDNISONE 04/24/2022 4 - Hives VALACYCLOVIR 04/24/2022 4 - Hives Date Reviewed: 09/16/2022 Reviewed by: Dede Story RN - Fully Assessed Reason for Visit: Results [95] Primary Visit Diagnosis:Hyperparath yroid (HCC) [E21.3] Order(s):CONSULT TO ENDOCRINOLOGY [9007] Order #: [id number]: 1 FUTURE Prescriptions as of 09/24/2022 - [...] Encounter Status:Closed by MARLEY GUTIERREZ on 09/24/22 [facility] CNOVon 09-16-2022 CNOV Office Visit (UROSMN ) ELIZABETH IRVIN ([id number]) 1965 F Date Time Provider Department 09/16/22 12:15 PM SAMY ODONNELL During your visit today, we recorded the following information about you: Dede Story RN 09/16/2022 12:17 PM Signed Actual procedure/procedure scheduled: Yes Performing provider/scheduled provider: Yes Patient was roomed in: Q9- [employer] Police Officer offered: Patient declines Patient arrived in the [...] Education Session: None Instruction Provided To: Patient Storage Management Consultant Present: not applicable Discipline: Nursing Learning Topic: SURVIVAL SKILLS: Complication Prevention Pain Management Symptom Management Patient Evaluation: Verbalizes understanding: Yes Supplemental Material Given: None Instructed By Dede Story RN In Department Urology . Samy Odonnell MD 09/16/2022 12:30 PM Signed CYSTOSCOPY PROCEDURE [facility] NOTE Pertinent History and Physical Exam [...] Samy Odonnell MD Director, Surgical Stone Disease [facility], [facility] Pager [phone] 09/16/2022 Dede Story RN 09/16/2022 12:30 PM [...] risk ass (more content not included)... Normal [facility] ANES POSTPROC EVALon 023 ANES POSTPROC EVAL HNO ID: [id number] Author: Florentino Murray DO Service: ? Author Type: Anesthesiologist Type: Anesthesia Postprocedure Evaluation Filed: 09/07/2022 5:03 PM Note Text: POST ANESTHESIA EVALUATION NOTE : 1965 Procedure Summary Date: 09/07/22 Room / Location: [address] Anesthesia Start: 1330 Anesthesia Stop: 1547 Procedures: [...] September 07, 2022 TIME: 5:03 PM CSN: [id number] Normal [facility] ANES PRE-OPon 09-07-2022 ANES PRE-OP HNO ID: [id number] Author: Florentino Murray DO Service: ? Author Type: Anesthesiologist Type: Anesthesia Preprocedure Evaluation Filed: 09/07/2022 10:54 AM Note Text: ANESTHESIOLOGY DAY OF SURGERY NOTE : 1965 Procedure Information Date/Time: 09/07/22 1245 Procedures: CYSTOURETHROSCOPY W/ URETEROSCOPY AND/OR PYELOSCOPY W/ LITHOTRIPSY INCLUDE INSERTION OF INDWELLING URETERAL STENT (Left: Ureter) CYSTOSCOPY, EXCHANGE STENT URETERAL J (Left: Ureter) Location: MAIN OR23 / [facility] Surgeons: Samy Odonnell MD Estimated body mass [...] and consent discussed: yes. Patient / Responsible Democrat agrees to proceed: yes Patient / Surrogate [...] September 07, 2022 TIME: 10:53 AM CSN: [id number] Normal [facility] BRIEF OP NOTon 09-07-2022 BRIEF OP NOT HNO ID: [id number] Author: Yasmeen Alexander MD Service: Urology Author Type: Fellow Type: Brief Op Note Filed: 09/07/2022 3:15 PM Note Text: BRIEF OPERATIVE / PROCEDURE NOTE LOG ID: [id number] Surgery/Procedure Date: 09/07/2022 Incision/Procedure Start Time: 1:53 PM Incision Close/Procedure End Time: Surgeon(s)/Procedural ist(s) and Forging Machine Hand(s): Surgeon(s) and Role: * Samy Odonnell MD [...] 2022 TIME: 3:15 PM PAGER/CONTACT #: Normal [facility] CALCULI ANALYSISon 3 Calculus analysis [Interp] Normal [facility] Comment on above: Order Comment: Speci men Type: CALCULUS SPECIMENOrdering Facility: [facility] Address: [address] [place] [address] Result Comment: This test was developed and its performance characteristics determined by [facility]'s [facility] Pathology and Laboratory Medicine [facility] ([facility]). It has not been cleared or approved by the FDA. -[facility] is regulated under CLIA as qualified to perform high-complexity testing. This test is used for clinical purposes. It should not be regarded as investigational or for research. Performed By: #### C SA ####[facility] [id number] [address] STATES OF [facility] CALCULUS COLOR WHITE Normal [facility] Comment on above: Order Comment: Speci men Type: CALCULUS SPECIMENOrdering Facility: [facility] Address: [address] [place] [address] Performed By: #### C SA ####[facility] LABIA [id number] [address] [place] CALCULUS COMPOSITION 1 70% Calcium Oxala te Monohydrate Normal [facility] Comment on above: Order Comment: Speci men Type: CALCULUS SPECIMENOrdering Facility: [facility] Address: [address] [place] [address] Performed By: #### C SA ####[facility]IA [id number] [address] [place] CALCULUS COMPOSITION 2 20% Calcium Oxala te Dihydrate Normal [facility] Comment on above: Order Comment: Speci men Type: CALCULUS SPECIMENOrdering Facility: [facility] Address: [address] [place] [address] Performed By: #### C SA ####[facility] [id number] [place] [address] CALCULUS COMPOSITION 3 10% Minor Components Normal [facility] Comment on above: Order Comment: Speci men Type: CALCULUS SPECIMENOrdering Facility: [facility] Address: [address] [place] [address] Performed By: #### C SA ####[facility] LABCLIA [id number] [address] CALCULUS SIZE AND WT Multiple pieces. 0.1291 GRAMS Normal [facility] Comment on above: Order Comment: Speci men Type: CALCULUS SPECIMENOrdering Facility: [facility] Address: [address] [place] [address] Performed By: #### C SA ####[facility]CLIA [id number] [address] [place] CALCULUS TYPE CALCULI/CALCULUS Normal [facility] Comment on above: Order Comment: Speci men Type: CALCULUS SPECIMENOrdering Facility: [facility] Address: [address] [place] [address] Performed By: #### C SA ####[facility]IA [id number] [address] [place] CNOVon 09-07-2022 CNOV Office Visit (UROLMN ) ELIZABETH IRVIN ([id number]) 1965 F Date Time Provider Department 09/07/22 [...] + HTN. No history of angina, CHF, [place], cardiac surgery of stents. Respiratory: Negative for [...] problems. Neurologic: No history of TIA's, stroke, AUTO LOCATOR tumor, impaired sensorium, hemiplegia or paraplegia No [...] (no units) Date Value 08/18/2022 Negative Specific [place], Ur (no units) Date Value 08/18/2022 1.016 [...] 07, 2022 TIME: 8:59 AM PAGER/CONTACT #: [facility] PRE-OP NOTE Elizabeth Irvin is a 56 year old female. Pre-op Date: September 07, 2022 Date of Procedure: 09/07/22 Does the patien (more content not included)... Normal [facility] HISTORY PHYSICALon HISTORY PHYSICAL HNO ID: [id number] Author: Marley Brown PA-C Service: ? Author Type: Physician Forging Machine Hand Type: HANDP Filed: 09/07/2022 10:06 AM Note [...] + HTN. No history of angina, CHF, [place], cardiac surgery of stents. Respiratory: Negative for [...] problems. Neurologic: No history of TIA's, stroke, AUTO LOCATOR tumor, impaired sensorium, hemiplegia or paraplegia No [...] (no units) Date Value 08/18/2022 Negative Specific [place], Ur (no units) Date Value 08/18/2022 1.016 [...] 07, 2022 TIME: 8:59 AM PAGER/CONTACT #: [facility] PRE-OP NOTE Elizabeth Irvin is a 56 year old female. Pre-op Date: September 07, 2022 Date of Procedure: 09/07/22 Does the patient have an active COVID-19 test in Epic? N/a Procedure/Surgery: L URS and stent Diagnosis: Nephroltihaisis Primary Surgeon: MD Odonnell Mark BP 103/69 (BP Site: Left Arm, BP Position: Sitting, BP Cuff Size: Regular Adult) Pulse 7 (more content not included)... Normal [facility] OPERATIVE NOon 09-07-2022 OPERATIVE NO HNO ID: [id number] Author: Samy Odonnell MD Service: Urology Author Type: Physician Type: Operative Report Filed: 09/07/2022 3:56 PM Note Text: OPERATIVE/PROCEDURE REPORT LOG ID: [id number] Surgery/Procedure Date: 09/07/2022 Incision/Procedure Start Time: 1:53 PM Incision Close/Procedure End Time: Surgeon(s)/Procedural ist(s) and Forging Machine Hand(s): Surgeon(s) and Role: * Samy Odonnell MD - Primary * Kolton Reyes MD - Resident - Assisting * Yasmeen Alexander MD - Fellow Procedure(s): Cystourethroscopy Left retrograde pyelogram Left ureteroscopy and laser lithotripsy with stone basketing/manipulatio n Left JJ ureteric stent exchange Fluoroscopy < 1 hr Approach: Endoscopic Anesthesia: General Findings: Stone [place]: Primary stone 10 mm mid ureter, significantly [...] Fluoroscopy C-arm was brought into the room. Manager Cosmetics images were taken. A 22 Fr rigid [...] through the scope into the kidney. A [employer] single-use flexible ureteroscope was advanced over the [...] Odonnell MD, FACS Director, Surgical Stone Disease, [facility] (more content not included)... Normal [facility] PTH INTACT BLDon 09-07-2022 Parathyrin.intact [Mass/Vol] 81 pg/mL High 15 - 65 pg/mL [facility] PTH-Intact SerPl-ncon - Parathyrin.intact [Mass/Vol] 81 pg/mL High 15-65 [facility] Comment on above: Order Comment: Speci men Type: BLOOD SPECIMENOrdering Facility: [facility] Address: [address] [place] [address] Performed By: #### 2 731-8 ####[facility] LABCLIA [id number] [address] [place] URINALYSIS, REFLEX MICROSCOP ICon 09-07-2022 Bilirubin Ql (U) Negative Normal Negative [facility] Comment on above: Order Comment: Speci men Type: URINE SPECIMENOrdering Facility: [facility] Address: [address] [address] Performed By: #### L [id number] ####[facility] LABCLIA [id number] [address] [place] Clarity (Unsp spec) Cloudy Abnormal Clear [facility] Comment on above: Order Comment: Speci men Type: URINE SPECIMENOrdering Facility: [facility] Address: [address] [place] [address] Performed By: #### L [id number] ####[facility] LABCLIA [id number] [address] Color (U) Yellow Normal Yellow [facility] Comment on above: Order Comment: Speci men Type: URINE SPECIMENOrdering Facility: [facility] Address: [address] [place] [address] Performed By: #### L [id number] ####[facility] LABCLIA [id number] [address] Epithelial cells LM.HPF (Urine sed) [#/Area] Few Normal [facility] Comment on above: Order Comment: Speci men Type: URINE SPECIMENOrdering Facility: [facility] Address: [address] [place] [address] Performed By: #### L [id number] ####[facility] LABIA [id number] [place] [address] [place] Glucose Test strip (U) [Mass/Vol] Negative Normal Trace, Negative [facility] Comment on above: Order Comment: Speci men Type: URINE SPECIMENOrdering Facility: [facility] Address: [address] [place] [address] Performed By: #### L [id number] ####[facility] LABCLIA [id number] [place] [address] [place] Hemoglobin Ql (U) Trace Normal Negative, Trace [facility] Comment on above: Order Comment: Speci men Type: URINE SPECIMENOrdering Facility: [facility] Address: [address] [place] [address] Performed By: #### L [id number] ####[facility] LABCLIA [id number] [place], [place] [address] [place] Ketones Ql (U) Negative Normal Negative, Trace [facility] Comment on above: Order Comment: Speci men Type: URINE SPECIMENOrdering Facility: [facility] Address: [address] [place] [address] Performed By: #### L [id number] ####[facility] LABCLIA [id number] [place] [address] [place] Leukocyte esterase Test strip Ql (U) 500 Nicholas/uL Abnormal Negative, 25 Nicholas/uL [facility] Comment on above: Order Comment: Speci men Type: URINE SPECIMENOrdering Facility: [facility] Address: [address] [place] [address] Performed By: #### L [id number] ####[facility] LABCLIA [id number] [place] [address] [place] Nitrite Ql (U) Negative Normal Negative [facility] Comment on above: Order Comment: Speci men Type: URINE SPECIMENOrdering Facility: [facility] Address: [address] [place], [place] [address] Performed By: #### L [id number] ####[facility] LABCLIA [id number] [place] [address] [place] pH (U) 6.0 [pH] Normal 5.0-8.0 [facility] Comment on above: Order Comment: Speci men Type: URINE SPECIMENOrdering Facility: [facility] Address: [address] [address] Performed By: #### L [id number] ####[facility] [id number] [address] Protein (U) [Mass/Vol] Trace Normal Trace , Negative [facility] Comment on above: Order Comment: Speci men Type: URINE SPECIMENOrdering Facility: [facility] Address: [address] [address] Performed By: #### L [id number] ####[facility] [id number] [place] [address] [place] RBC LM.HPF (Urine sed) [#/Area] 0-3 /HPF Normal 0-3 /HPF [facility] Comment on above: Order Comment: Speci men Type: URINE SPECIMENOrdering Facility: [facility] Address: [address] [place] [address] Performed By: #### L [id number] ####[facility] [id number] [place] [address] [place] Specific gravity (U) [Rel density] 1.014 Normal 1.005-1.030 [facility] Comment on above: Order Comment: Speci men Type: URINE SPECIMENOrdering Facility: [facility] Address: [address] [place], [place] [id number] Performed By: #### L [id number] ####[facility] LABIA [id number] [address] [place] Urobilinogen Ql (U) Negative Normal Negative [facility] Comment on above: Order Comment: Speci men Type: URINE SPECIMENOrdering Facility: [facility] Address: [address] [place], [place] [address] Performed By: #### L [id number] ####[facility] LABIA [id number] [place] WBC LM.HPF (Urine sed) [#/Area] /[HPF] Abnormal 0-5 /HPF [facility] Comment on above: Order Comment: Speci men Type: URINE SPECIMENOrdering Facility: [facility] Address: [address] [id number] Performed By: #### L [id number] ####[facility] LABCLIA [id number] [place] [address] [place] Bilirubin Ql (U) Negative Negative [facility] Clarity (Unsp spec) Cloudy Abnormal Clear [facility] Color (U) Yellow Yellow [facility] Epithelial cells LM.HPF (Urine sed) [#/Area] Few [facility] Glucose Test strip (U) [Mass/Vol] Negative Trace, Negative [facility] Hemoglobin Ql (U) Trace Negative, Trace [facility] Ketones Ql (U) Negative Negative, Trace [facility] Leukocyte esterase Test strip Ql (U) 500 Nicholas/uL Abnormal Negative, 25 Nicholas/uL [facility] Nitrite Ql (U) Negative Negative [facility] pH (U) 6.0 [pH] 5.0 - 8.0 [facility] Protein (U) [Mass/Vol] Trace Trace , Negative [facility] RBC LM.HPF (Urine sed) [#/Area] 0-3 /HPF 0-3 /HPF [facility] Specific gravity (U) [Rel density] 1.014 1.005 - 1.030 [facility] Urobilinogen Ql (U) Negative Negative [facility] WBC LM.HPF (Urine sed) [#/Area] /[HPF] Abnormal 0-5 /HPF [facility] Rabia 08-19-2022 CNPN Telephone (UROLMN) ELIZABETH IRVIN ([id number]) 1965 F Date Time Provider Department 08/19/22 [...] Date Reviewed: 07/14/2022 Reviewed by: Gali Mcnally, CT - Fully Assessed Reason for Visit: Returning Patient's Call [408] Prescriptions as of 08/19/2022 - lisinopril (ZESTRIL, PRINIVIL) 20 mg tablet Take by mouth. - DULoxetine (CYMBALTA) 60 mg capsule - rOPINIRole (REQUIP) 1 mg tablet - OZEMPIC 0.25 mg or 0.5 mg(2 mg/1.5 mL) pen Problem List As Of Date: 08/19/2022 (None) Encounter Status:Closed by MARISA WEST on 08/19/22 Normal [facility] Bacteria Ur Culton 3 Bacteria identified Cx [...] technique or straight catheterization for???urine???collect ion. Normal [facility] Comment on above: Performed By: #### 6 30-4 ####[facility] LABIA [id number] [place] [address] [place] Urinalysis complete panel (U )on 08-18-2022 Bacteria LM.HPF (Urine sed) [#/Area] Rare Abnormal None Seen [facility] Comment on above: Order Comment: Speci men Type: URINE SPECIMENOrdering Facility: [facility] Address: [address] [id number] Performed By: #### 2 4356-8 ####[facility] LABIA [id number] [address] [place] Bilirubin Ql (U) Negative Normal Negative [facility] Comment on above: Order Comment: Speci men Type: URINE SPECIMENOrdering Facility: [facility] Address: [address] [place], [place] [address] Performed By: #### 2 4356-8 ####[facility] LABCLIA [id number] [place] [address] [place] Clarity (Unsp spec) Cloudy Abnormal Clear [facility] Comment on above: Order Comment: Speci men Type: URINE SPECIMENOrdering Facility: [facility] Address: [address] [place], [place] [address] Performed By: #### 2 4356-8 ####[facility] LABCLIA [id number] [place] [address] [place] Color (U) Light Yellow Normal Yellow [facility] Comment on above: Order Comment: Speci men Type: URINE SPECIMENOrdering Facility: [facility] Address: [address] [place], [place] [address] Performed By: #### 2 4356-8 ####[facility] LABIA [id number] [place] [address] [place] Epithelial cells LM.HPF (Urine sed) [#/Area] Few Normal [facility] Comment on above: Order Comment: Speci men Type: URINE SPECIMENOrdering Facility: [facility] Address: [address] [place], [place] [address] Performed By: #### 2 4356-8 ####[facility] LABIA [id number] [place] [address] [place] Glucose Test strip (U) [Mass/Vol] Negative Normal Trace, Negative [facility] Comment on above: Order Comment: Speci men Type: URINE SPECIMENOrdering Facility: [facility] Address: [address] [place], [place] [address] Performed By: #### 2 4356-8 ####[facility] LABCLIA [id number] [place] [address] [place] Hemoglobin Ql (U) 3+ Abnormal Negative, Trace [facility] Comment on above: Order Comment: Speci men Type: URINE SPECIMENOrdering Facility: [facility] Address: [address] [place] [address] Performed By: #### 2 4356-8 ####[facility] LABCLIA [id number] [place] [address] [place] Ketones Ql (U) Negative Normal Trace, Negative [facility] Comment on above: Order Comment: Speci men Type: URINE SPECIMENOrdering Facility: [facility] Address: [address] [place] [address] Performed By: #### 2 4356-8 ####[facility] LABCLIA [id number] [place] [address] [place] Leukocyte esterase Test strip Ql (U) 500 Nicholas/uL Abnormal Negative, 25 Nicholas/uL [facility] Comment on above: Order Comment: Speci men Type: URINE SPECIMENOrdering Facility: [facility] Address: [address] [place] [address] Performed By: #### 2 4356-8 ####[facility] LABCLIA [id number] [place] [address] [place] Nitrite Ql (U) Negative Normal Negative [facility] Comment on above: Order Comment: Speci men Type: URINE SPECIMENOrdering Facility: [facility] Address: [address] [place], [place] [address] Performed By: #### 2 4356-8 ####[facility] LABCLIA [id number] [place] [address] [place] pH (U) 6.0 [pH] Normal 5.0-8.0 [facility] Comment on above: Order Comment: Speci men Type: URINE SPECIMENOrdering Facility: [facility] Address: [address] [place] [address] Performed By: #### 2 4356-8 ####[facility] LABCLIA [id number] [address] [place] [facility] Protein (U) [Mass/Vol] 1+ Abnormal Trace , Negative [facility] Comment on above: Order Comment: Speci men Type: URINE SPECIMENOrdering Facility: [facility] Address: [address] [place] [address] Performed By: #### 2 4356-8 ####[facility] LABIA [id number] [place] [address] [place] RBC LM.HPF (Urine sed) [#/Area] /[HPF] Abnormal 0-3 /HPF [facility] Comment on above: Order Comment: Speci men Type: URINE SPECIMENOrdering Facility: [facility] Address: [address] [place] [address] Performed By: #### 2 4356-8 ####[facility] LABIA [id number] [address] STATES OF [facility] Specific gravity (U) [Rel density] 1.016 Normal 1.005-1.030 [facility] Comment on above: Order Comment: Speci men Type: URINE SPECIMENOrdering Facility: [facility] Address: [address] [place] [address] Performed By: #### 2 4356-8 ####[facility] LABIA [id number] [address] Urobilinogen Ql (U) Negative Normal Negative [facility] Comment on above: Order Comment: Speci men Type: URINE SPECIMENOrdering Facility: [facility] Address: [address] [place] [address] Performed By: #### 2 4356-8 ####[facility] LABCLIA [id number] [place] [address] [place] WBC LM.HPF (Urine sed) [#/Area] /[HPF] Abnormal 0-5 /HPF [facility] Comment on above: Order Comment: Speci men Type: URINE SPECIMENOrdering Facility: [facility] Address: [address] [place] [address] Performed By: #### 2 4356-8 ####[facility] LABCESAR [id number] [id number] [id number] [place] Rabia 08-13-2022 CNPN Telephone (UROLMN) ELIZABETH IRVIN ([id number]) 1965 F Date Time Provider Department 08/13/22 [...] Reyes - Fully Assessed Reason for Visit: [employer] - Other [3602] Prescriptions as of 08/13/2022 - lisinopril (ZESTRIL, PRINIVIL) 20 mg tablet Take by mouth. 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 Patient identified and allergies reviewed. Per order under scanned documents lasix 40 mg IV given at 1411. [facility] Coding Summary.on 07-29-2022 Coding Summary. CD:[id number] G h0bWw+PGhlYWQ+OE0WRJI pM46rxHAxhE9oZ5RGZPgA SywgQVBQTElOSyIgbmFtZ K7mzKWfLRTr IC8+ZM4iDARdXybncYKps 7E6jFE7Y31hbu7fDEjzzF U5OYVtBoTizjkuh4xkyTb 6IDcuNmluOyBt SWPzgB95SSP4cT30Ns11y HGsfAHfi1ayxCe0BdJeDH FzGZE9xZfvITyta4NsMVU yL92woONrt6E5 SCTgzVobdCXaEsPyiNJ1n T2mQAdwzqiym3pfbkldRx a7yc97pGFrb0H7yRT6Z4S emaI2DZHocDIl MgzbeNFXcD9nxqfkn5guw uodCrDgCKDfBHv3ZIg5RJ OjiMxkZeFhRO68LHZ4BYX buaOkS6VpGEKn aAxfKyG9o9H5Zt3NP8MUV rhgF0DHEWRKWNglrAF+PC 47za33C0TqLkyvQdt7HUU zYWL2cWC4wM5o ASWyAZdgw0A4mDR1S5Zpn wUsla0au3shMARiNVoiK0 3hoBTtg6Z5CBGohND0IIA rbIvuOnAhuK91 Oyc+SMJqtBsgz4YiGqcqa 3ezv0jhqUd2RadlKRAjrv DkuKlhBWP8y2HyBq3qYRM bnVU6bAX5aA1n XjFkPeI6KYghI328AsNfg MYcWxgeJ39xX2DqeOK+PH IcJkr2RLEqyGebLO7lF3D hZGRpbmctbGVm uJnvBO3dALWgdfbuFEMjp Z0wPRVuT9w2LoSuYyU0VP ezQ4IzBJQwchpbNr52vJ9 qDsXfMgC5EZia Z4ZqnaB1IYPeyBGxHDirP MW8X21ht2K0HIUgJYKiRU D0wQU9sP0leLyectspqLE mdDsgdmVydGlj DGueYBndQ272PXNnqHkoU kNvZGluZyBEYXRlOiAgMD MvMDgvMjAyMzwvdGQ+PHR fLBN7hTsnJRMo jEVpYLjpUd1njCjcfKzpX I4nUYLpbhlcYDDimI6sIM BqtXHldDtdAP8wPSXjuxj lu172SsZzOSU3 WGJkxNBtB5WkgB9oYbQdD ZDeXIXwJ1MxaHYsEJjlG9 34OIlpEtD5BZHmtxEsD5C sLWFsaWduOiB0 g6P7Zn5Gi7KvmvinI2Npl DGkBuXiOhoaIEp4O2TpEe wvdHI+SZ09QZRuYC98OKj 7MWX1rSwfZNbm TMGyT2HmaD6jIaSkPPLtJ GRkOyc+PHRhYmxlIHdpZH RoPScxMDAlJyBzdHlsZT0 qNf2eCWNuPRZi vLikqKGvGbCne6mvVYPxT JccCG9boLfkQ8CgfUM6HI Dxv0n3Ny61L86gW7GlhGO +OYXauZF3zTU7 hC5bWgLsXpX5MMvpU598E sVrcJAsEudfr0dxw8dlrI i6WmU1IAIrazJziOrmSSF 0i5FnPv29U19s IHdpZHRoPSIxNSUiIHZhb Ldmyp2fuP6xEl3+PGNvbC W1lOV4iC5cDfQiRjN2SFm iA566LdRvsAGc Pbbfg9qje3suePs6ZiYlZ XAaaqDegVrsMQZ7t1GpHi 60F0XueAbim9YwZvs6ix3 7iDJnp2Y6uKZ5 F5MvXWFtpmqbkGEalMdmD B2hAGYadqfeGCYkvL2cXF AlF6p7YzLkUgY3HGjrS7F rjfM9MDQjwUJl ATKiuTBXsG3rtuxow9run izoGfQcVSAjTKz3WSu0JY UytWvkMtOaNRG9FuG9CHZ 5hXWmuZ0qjIyz srcpcS5xTxl+AHD3hNKkt PJTMD6nUqveeSF+PHRkIH V5vCyzKQedDKXyyU0wQYH pZ7f0YyTeLcP0 CUoaA1IyhrI2APLbyUQiC YWnyGKAeM8ujfdzp8dqdy gjDsFzNREbPSs3HYa7OOW saWduOiBsZWZ0 GsI4EAY5tJXoyR7nvSrnp dmzaE0vZzy+QmlydGggRG M1LLo5G0OfTps1UPEbnVo pLC0bsMMwOUap Ei2jlRgaeErsWZ7lUYTza yvtl528UaYsh8gcXDBoxT DjFUdvZDD9Q43za3W5MIZ uXWSqHLT8nXA2 pQ0snHnzevssmLLegVwbz oMmbIlpWSupPRmhB822PO MlzDrdOmBvAUg6I0PfKxs 2LVSlgNwiJQ4h kRFnZLipOb7luNpbrRhxW U8yEKZbnsbao189WmUre0 aqYPNrgAJpKLqoFJQ7S31 xc9C1HKTbUPIn NNS0uSC4fQ0haKzbjzaxi GVmdDsgdmVydGljYWwtYW jdC683WBYmnHgkGfLlqCe 8V1VxOfi4UOGn dOovOH5tsHInOWcoSy0zw GgpcXoiMP5fXSAmdeisn9 22TbPfh3opCLVjdLZxSQr qOSV0Z54yf9O7 OAOxNPKgRHG6cNL9iS6yz GlnbjogbGVmdDsgdmVydG ktQYheJWsnE765RVDmvVt nPlBhdGllbnQg SHtgLRq3Z6PgLiibxLC+P O46XGWnTN78gPVxlOTlr5 qusRr7DfPdXKCnRMY0dSy hUTlnc9UaQGUt I35mkVBao7H1VSFfcCmdn UZoAzLawAR5eY7yNSwkvy vvm0zascreSlujh5kzfn7 6yL12S74lZReg ZHRoPSIzMCUiIHZhbGlnb i4cpZ3lRp2+PMMhnLC8fL D1vH2kFWUlZqC0CBdbQ42 9InRvcCIvPjxj h6zbq4qcpOz0DaC1HBBnr sCxsJrlKWI5m6JeYa40P3 9sIHdpZHRoPSIyMCUiIHZ muVimsl6suO0t Ii8+SNBjlLJ5bOP1vP4jZ oTjDwB8GGhaL222JlWleI HbBhbpP22kD7HziSB+PHR nLwk3JODutPsy BB5xfBMdZIcnLd0vVRO3Z eCmNeDkGYrwQ3ZgAKNosr ymmoobsLF3NAGwLGRfmP1 5Fm2upSknBDDy zHKUnW4qhrkdq4anibbqB vNzHNOdSTc8GGo2TKOmvV hjSiBqBFE4TsR9NHQ2bFR cmW1otChmhczi xB4mU4MoJAWqvzopQc68a C1nMdMxCdZ6QXwvNlz+Q1 PAM4VGUcnvR8GKNFfqFrc vdGQ+PHRkIHN0 wLixNGokUGPzzJ1uMSQaL 4l7AaIpItS3VJsbV1GkYH JvnrqbOf42lU8iRoHcObX 9LTjtP4SfwuX3 HGGocRKsVChbFGU6Q31re 1L1CEHoKDGaFUD1zVO9yT 1hbGlnbjogbGVmdDsgdmV ydGljYWwtYWxp F567UTWbxGapAgY1LxE2C hT3QgL6V1XpBon2XTKmgV fzPN0yqRHvRWhiTs4kgRp bcFtwGJ0cITPm evkbRWEbiC5eNIUtxNSub NngAN9nASKtfkedr925Yf SiGMS8QBDoqJXwT4LduG5 yOiAjMDAwMDAw K1SndEZoYKvlC410WEypI yR2SHOspxDqO8TwDLVrlS rgUnW9j1G3Cp03DhUHQVW yczwvdGQ+PHRk NMH5rFhiERygWLLijQ5mQ MZoD4z3OaJvGdD7HZpxL6 XmWIFmajhuGo05iB2oYbW lWzX1BDbvJ2Xs xhN3XKJfbBPrXBokYRB1O 92xn6G9JGRjFXLoIBX6pG M6jU2hlVejveqerSUocCq gdmVydGljYWwt UJvkB353VIZdlPhwEmWew WFsZTwvdGQ+LIRgHID7nY afMFvqIIByqB8kAFRhX5y 2FdDmIkQ6LOgh G8TlUJMlitfqTs93kX6hD dSiXsT3MTegB6WdyxN8SP SnoTAgPGuvXAT2U51ox0E 9AYKtDLAcBDO6 gPV4eE0dgMpdacitsHLzd DsgdmVydGljYWwtYWxpZ2 25DLKoiHbiQk81qHIltNb roeC0U8WbCtbv dHI+EX77WBPqCF27wLOjk PUjo0pyrBa3GcOsYVUeQZ K9fMuyFPfnl0VfWCSkA49 zrVFxe1U6HVRs wVefxEYaUsEnjCI3zS1gG Kmcwzzad3ujgjpvNvvoc8 pxla45oD88S65uQZsgLEQ oPSIzMCUiIHZh yBckif7rgQ2eGc8+PGNvb UR9gTR8jR4qOdOeGcX2HQ ngN990ArSxqLMlInagb3k gb3poiMb6VfOr FYPeomYesQcwBCZ2q8VzT q87S83eRGvfUUScHIQvBC AiINNxeIebqd2laV6lAv4 +EZ9jo1wcri07 gX63zEN+WSBuGYG0aZqtE SvyBLHxjW9kGHnvCzW9SS AcOgNvcB67qJAdOEtpCv7 ctBtwaFoaTO7c JGLsvuyjj510SeJcp0atA CEajVKrCOmaRDR9Y11lx0 K0PPHbDEAfOQF0nLO8bX6 hbGlnbjogbGVm dDsgdmVydGljYWwtYWxpZ 176SUTsxIylDdCpdHXhG3 qvtpCEKL0sGzsotVQ+PHR yVFL6sWnoLTue GLRrzP3zQXAoR8o1LiAgW dJ2FQzeB3MbzlY8JZHhaG UeJJDluXJOnM5kjtnhw0m vcjogIzAwMDAw JRo0QJt6YVCpqCjdMwIhC IH3CwS8QKP5rXCbxU0trS dmzpgxuU8pKlx+RklOOjw vdGQ+PHRkIHN0 wJpsCQkpADUdlN2aKLHaR 4k9XcUrCpE1ZXcoB3Qkhq E9HLLggLMcOPBbpILVdQ8 lsdqfh8hyqkrs SuAaFATiLMq5SYw1GIGey RsyNpYsUCB6UfL3AAM3nR PgbR2dsZlpiemujS5kJpu +TVJOOjwvdGQ+ PVLeLGS0oJjpERrvLTLwg Q6bZHKzA9w2SpLnTmD2FG glW3TijaQ3KXHbjLSuZXP toETBuU9ahgmm v4bmgjtmPoPpFSBmFQv8C La7DPRnnCfjUlFxIXC5Fn Q1SGE2xVKipJ3kfSgrbqg ldF1bUtd+UGF5 APT0QV27UH21I1QwSeboh GFibGU+PHRhYmxlIHdpZH RoPScxMDAlJyBzdHlsZT0 hDy7sDWDzJJGj bGxh (more content not included)... Normal [facility] Physician Orderon 07-28-2022 Physician Order [id number] [id number]:127 Normal [facility] Consultation Noteon 07-17-19 23 Consultation Note [id number]#1 .00CD:127 Normal [facility] 25(OH)D3 [facility] 2022 25-hydroxyvitamin D3 [Mass/Vol] 41.8 ng/mL Normal 31.0-80.0 [facility] Comment on above: Order Comment: Speci men Type: BLOOD SPECIMENOrdering Facility: [facility] Address: [address] [place] [address] Result Comment: Clas sification of 25 [place] Vitamin D status: Deficiency/Insufficiency: < or = 30 ng/ml. Sufficiency/Optimal Levels: 31-80 ng/mL Toxicity: > 100 ng/mL. Test performed by chemiluminescent immunoassay. Performed By: #### 1 989-3 ####[facility] LABCLIA [id number] [place] [address] [place] Bacteria Ur Culton 3 Bacteria identified Cx [...] , Intermediate >32 , Resistant >64 Abnormal [facility] Comment on above: Performed By: #### 6 30-4 ####[facility] LABCLIA [id number] [place] [address] [place] CBC W Auto Differential pane l (Bld)on 07-14-2022 Basophils (Bld) [#/Vol] 0.03 10*3/uL Normal <0.11 [facility] Comment on above: Order Comment: Speci men Type: BLOOD SPECIMENOrdering Facility: [facility] Address: [address] Performed By: #### 5 7021-8 ####[facility] LABCLIA [id number] [address] [place] Basophils/100 WBC (Bld) 0.6 % Normal [facility] Comment on above: Order Comment: Speci men Type: BLOOD SPECIMENOrdering Facility: [facility] Address: [address] [place] [address] Performed By: #### 5 7021-8 ####[facility] LABCLIA [id number] [place] [address] [place] Differential cell count method Nom (Bld) Auto Normal [facility] Comment on above: Order Comment: Speci men Type: BLOOD SPECIMENOrdering Facility: [facility] Address: [address] [place], [place] [id number] Performed By: #### 5 7021-8 ####[facility] LABCLIA [id number] [place] [address] [place] Eosinophils (Bld) [#/Vol] 0.18 10*3/uL Normal <0.46 [facility] Comment on above: Order Comment: Speci men Type: BLOOD SPECIMENOrdering Facility: [facility] Address: [address] Performed By: #### 5 7021-8 ####[facility] LABCLIA [id number] [place] [address] [place] Eosinophils/100 WBC (Bld) 3.7 % Normal [facility] Comment on above: Order Comment: Speci men Type: BLOOD SPECIMENOrdering Facility: [facility] Address: [address] [place], [place] [id number] Performed By: #### 5 7021-8 ####[facility] LABCLIA [id number] [place] [address] [place] Erythrocyte distribution width (RBC) [Ratio] 15.7 % High 11.5-15.0 [facility] Comment on above: Order Comment: Speci men Type: BLOOD SPECIMENOrdering Facility: [facility] Address: [address] [place] [address] Performed By: #### 5 7021-8 ####[facility] [id number] [place] [address] [place] Hematocrit (Bld) [Volume fraction] 31.3 % Low 36.0-46.0 [facility] Comment on above: Order Comment: Speci men Type: BLOOD SPECIMENOrdering Facility: [facility] Address: [address] [place] [address] Performed By: #### 5 7021-8 ####[facility] [id number] [place] [address] [place] Hemoglobin (Bld) [Mass/Vol] 10.1 g/dL Low 11.5-15.5 [facility] Comment on above: Order Comment: Speci men Type: BLOOD SPECIMENOrdering Facility: [facility] Address: [address] [place] [address] Performed By: #### 5 7021-8 ####[facility] [id number] [place] [address] [place] Immature granulocytes (Bld) [#/Vol] 10*3/uL Normal <0.10 [facility] Comment on above: Order Comment: Speci men Type: BLOOD SPECIMENOrdering Facility: [facility] Address: [address] [place], [place] [id number] Performed By: #### 5 7021-8 ####[facility] [id number] [place] [address] [place] Immature granulocytes/100 WBC (Bld) 0.2 % Normal [facility] Comment on above: Order Comment: Speci men Type: BLOOD SPECIMENOrdering Facility: [facility] Address: [address] Performed By: #### 5 7021-8 ####[facility] LABCLIA [id number] [place] [address] [place] Lymphocytes (Bld) [#/Vol] 1.77 10*3/uL Normal 1.00-4.00 [facility] Comment on above: Order Comment: Speci men Type: BLOOD SPECIMENOrdering Facility: [facility] Address: [address] [place], [place] [id number] Performed By: #### 5 7021-8 ####[facility] LABCLIA [id number] [place] [address] [place] Lymphocytes/100 WBC (Bld) 36.0 % Normal [facility] Comment on above: Order Comment: Speci men Type: BLOOD SPECIMENOrdering Facility: [facility] Address: [address] [place], [place] [id number] Performed By: #### 5 7021-8 ####[facility] LABCLIA [id number] [place] [address] [place] MCH (RBC) [Entitic mass] 27.8 pg Normal 26.0-34.0 [facility] Comment on above: Order Comment: Speci men Type: BLOOD SPECIMENOrdering Facility: [facility] Address: [address] Performed By: #### 5 7021-8 ####[facility] LABCLIA [id number] [place] [address] [place] MCHC (RBC) [Mass/Vol] 32.3 g/dL Normal 30.5-36.0 [facility] Comment on above: Order Comment: Speci men Type: BLOOD SPECIMENOrdering Facility: [facility] Address: [address] [place], [place] [id number] Performed By: #### 5 7021-8 ####[facility] LABCLIA [id number] [place] [address] [place] MCV (RBC) [Entitic vol] 86.2 fL Normal 80.0-100.0 [facility] Comment on above: Order Comment: Speci men Type: BLOOD SPECIMENOrdering Facility: [facility] Address: [address] [place], [place] [id number] Performed By: #### 5 7021-8 ####[facility] LABIA [id number] [place] [address] [place] Monocytes (Bld) [#/Vol] 0.39 10*3/uL Normal <0.87 [facility] Comment on above: Order Comment: Speci men Type: BLOOD SPECIMENOrdering Facility: [facility] Address: [address] [place], [place] [address] Performed By: #### 5 7021-8 ####[facility] LABIA [id number] [place] [address] [place] Monocytes/100 WBC (Bld) 7.9 % Normal [facility] Comment on above: Order Comment: Speci men Type: BLOOD SPECIMENOrdering Facility: [facility] Address: [address] [place], [place] [address] Performed By: #### 5 7021-8 ####[facility] LABIA [id number] [place] [address] [place] Neutrophils (Bld) [#/Vol] 2.53 10*3/uL Normal 1.45-7.50 [facility] Comment on above: Order Comment: Speci men Type: BLOOD SPECIMENOrdering Facility: [facility] Address: [address] [place], [place] [address] Performed By: #### 5 7021-8 ####[facility] LABIA [id number] [place] [address] [place] Neutrophils/100 WBC (Bld) 51.6 % Normal [facility] Comment on above: Order Comment: Speci men Type: BLOOD SPECIMENOrdering Facility: [facility] Address: [address] [place], [place] [address] Performed By: #### 5 7021-8 ####[facility] LABCLIA [id number] [place] [address] [place] Nucleated RBC (Bld) [#/Vol] 10*3/uL Normal <0.01 [facility] Comment on above: Order Comment: Speci men Type: BLOOD SPECIMENOrdering Facility: [facility] Address: [address] [place], [place] [address] Performed By: #### 5 7021-8 ####[facility] LABCLIA [id number] [place] [address] [place] Nucleated RBC/100 WBC (Bld) [Ratio] 0.0 /100 WBC Normal [facility] Comment on above: Order Comment: Speci men Type: BLOOD SPECIMENOrdering Facility: [facility] Address: [address] [place], [place] [address] Performed By: #### 5 7021-8 ####[facility] LABIA [id number] [place] [address] [place] Platelet mean volume (Bld) [Entitic vol] 9.4 fL Normal 9.0-12.7 [facility] Comment on above: Order Comment: Speci men Type: BLOOD SPECIMENOrdering Facility: [facility] Address: [address] [place] [address] Performed By: #### 5 7021-8 ####[facility] LABCLIA [id number] [place] [address] [place] Platelets (Bld) [#/Vol] 304 10*3/uL Normal 150-400 [facility] Comment on above: Order Comment: Speci men Type: BLOOD SPECIMENOrdering Facility: [facility] Address: [address] [place] [address] Performed By: #### 5 7021-8 ####[facility] LABIA [id number] [place] [address] [place] RBC (Bld) [#/Vol] 3.63 10*6/uL Low 3.90-5.20 [facility] Comment on above: Order Comment: Speci men Type: BLOOD SPECIMENOrdering Facility: [facility] Address: [address] [place] [address] Performed By: #### 5 7021-8 ####[facility] LABIA [id number] [address] [place] WBC (Bld) [#/Vol] 4.91 10*3/uL Normal 3.70-11.00 [facility] Comment on above: Order Comment: Speci men Type: BLOOD SPECIMENOrdering Facility: [facility] Address: [address] [place] [address] Performed By: #### 5 7021-8 ####[facility] LABIA [id number] [place] [address] [place] Basophils (Bld) [#/Vol] 0.03 10*3/uL <0.11 k/uL [facility] Basophils/100 WBC (Bld) 0.6 % [facility] Differential cell count method Nom (Bld) Auto [facility] Eosinophils (Bld) [#/Vol] 0.18 10*3/uL <0.46 k/uL [facility] Eosinophils/100 WBC (Bld) 3.7 % [facility] Erythrocyte distribution width (RBC) [Ratio] 15.7 % High 11.5 - 15.0 % [facility] Hematocrit (Bld) [Volume fraction] 31.3 % Low 36.0 - 46.0 % [facility] Hemoglobin (Bld) [Mass/Vol] 10.1 g/dL Low 11.5 - 15.5 g/dL [facility] Immature granulocytes (Bld) [#/Vol] <0.10 k/uL [facility] Immature granulocytes/100 WBC (Bld) 0.2 % [facility] Lymphocytes (Bld) [#/Vol] 1.77 10*3/uL 1.00 - 4.00 k/uL [facility] Lymphocytes/100 WBC (Bld) 36.0 % [facility] MCH (RBC) [Entitic mass] 27.8 pg 26.0 - 34.0 pg [facility] MCHC (RBC) [Mass/Vol] 32.3 g/dL 30.5 - 36.0 g/dL [facility] MCV (RBC) [Entitic vol] 86.2 fL 80.0 - 100.0 fL [facility] Monocytes (Bld) [#/Vol] 0.39 10*3/uL <0.87 k/uL [facility] Monocytes/100 WBC (Bld) 7.9 % [facility] Neutrophils (Bld) [#/Vol] 2.53 10*3/uL 1.45 - 7.50 k/uL [facility] Neutrophils/100 WBC (Bld) 51.6 % [facility] Nucleated RBC (Bld) [#/Vol] <0.01 k/uL [facility] Nucleated RBC/100 WBC (Bld) [Ratio] 0.0 /100 WBC [facility] Platelet mean volume (Bld) [Entitic vol] 9.4 fL 9.0 - 12.7 fL [facility] Platelets (Bld) [#/Vol] 304 10*3/uL 150 - 400 k/uL [facility] RBC (Bld) [#/Vol] 3.63 10*6/uL Low 3.90 - 5.2 0 m/uL [facility] WBC (Bld) [#/Vol] 4.91 10*3/uL 3.70 - 11. 00 k/uL [facility] CNOVon 07-14-2022 CNOV Office Visit (UROLMN ) ELIZABETH IRVIN ([id number]) 1965 F Date Time Provider Department 07/14/22 [...] based on size, location, hounsfield units and qfmq-tl-ldvvy distance: 0% 3. Ureteroscopy - risks of [...] with more than 50% of the total ffhy-uv-hhli time of the visit devoted to patient counseling/coordinati on of care. Samy Odonnell MD Director, Surgical [facility] Disease [facility] Pager [phone] 07/14/2022 Allergies As of Date: 07/14/2022 Noted Allergy Reaction PREDNISOLONE 07/14/2022 4 - Hives PREDNISONE 04/24/2022 4 - Hives VALACYCLOVIR 04/24/2022 4 - Hives Date Reviewed: 07/14/2022 Reviewed by: Gali Mcnally, ANNALISE - Fully Assessed Reason for Visit: Consult [173] Kidney Stones [90624] Primary Visit Diagnosis:Nephrolithi asis [N20.0] Other Visit Diagnoses:Hydronephro sis with urinary obstruction due to ureteral calculus [N13.2] Left flank pain [R10.9] Left renal atrophy [N26.1] Order(s):NM RENAL FLOW/FXN W PHARM [8027423] Order #: [id number] FUTURE CBC + DIFF [SQCBCDIF] Order #: [id number] FUTURE COMP METABOLIC PANEL [SQCMP] Order #: [id number] FUTURE PTH INTACT BLD [SQPTHI] Order #: [id number] FUTURE VITAMIN D 25 HYDROXY [SQVITD] Order #: [id number] FUTURE URIC ACID BLOOD [SQURIC] Order #: [id number] FUTURE CALCIUM IONIZED BLOOD [SQICA] Order #: [id number] FUTURE TYPE AND SCREEN,30 DAY [QTJRYS14] Order #: [id number] FUTURE CONFIRM BLOOD TYPE [SQCONABO] Order #: [id number] FUTURE Prescriptions as of 07/15/2022 - lisinopril (ZESTRIL, PRINIVIL) 20 mg tablet Take by mouth. - DULoxetine (CYMBALTA) 60 mg capsule - rOPINIRole (REQUIP) 1 mg tablet - OZEMPIC 0.25 mg or 0.5 mg(2 mg/1.5 mL) pen Problem List As Of Date: 07/14/2022 (None) Disposition: Return for Nuclear re (more content not included)... Normal [facility] CONFIRM BLOOD TYPEon 023 ABO O [facility] Rh Nom (Bld) Positive [facility] ABO O Normal [facility] Comment on above: Order Comment: Speci men Type: BLOOD SPECIMEN [facility] Address: [address] [place] [address] Performed By: #### T SCR30 #### [facility] [id number] [address] [place] [address] [place] Rh Nom (Bld) Positive Normal [facility] Comment on above: Order Comment: Speci men Type: BLOOD SPECIMEN [facility] Address: [address] [place] [address] Performed By: #### T SCR30 #### [facility] [id number] [address] [place] [address] [place] Comprehensive metabolic 2000 panelon 07-14-2022 Albumin [Mass/Vol] 3.7 g/dL Low 3.9 - 4.9 g/dL [facility] ALP [Catalytic activity/Vol] 65 U/L 34 - 123 U/L [facility] ALT [Catalytic activity/Vol] 9 U/L 7 - 38 U/L [facility] Anion gap [Moles/Vol] 12 mmol/L 9 - 18 mmol/L [facility] AST [Catalytic activity/Vol] 17 U/L 13 - 35 U/L [facility] Bilirubin [Mass/Vol] 0.3 mg/dL 0.2 - 1 .3 mg/dL [facility] Calcium [Mass/Vol] 9.1 mg/dL 8.5 - 10. 2 mg/dL [facility] Chloride [Moles/Vol] 111 mmol/L High 97 - 10 5 mmol/L [facility] CO2 [Moles/Vol] 19 mmol/L Low 22 - 30 mmol/L [facility] Creatinine [Mass/Vol] 2.85 mg/dL High 0.58 - 0.96 mg/dL [facility] Estimated Glomerular Filtration Rate 19 mL/min/1.73m Low >=60 mL/min/1.73m [facility] Glucose [Mass/Vol] 80 mg/dL 74 - 99 mg/dL [facility] Potassium [Moles/Vol] 5.0 mmol/L 3.7 - 5.1 mmol/L [facility] Protein [Mass/Vol] 6.1 g/dL Low 6.3 - 8.0 g/dL [facility] Sodium [Moles/Vol] 142 mmol/L 136 - 144 mmol/L [facility] Urea nitrogen [Mass/Vol] 28 mg/dL High 7 - 21 mg/dL [facility] Albumin [Mass/Vol] 3.7 g/dL Low 3.9-4.9 [facility] Comment on above: Order Comment: Speci men Type: BLOOD SPECIMENOrdering Facility: [facility] Address: [address] [address] Performed By: #### 2 4323-8, 27305-31, 3083-05 ####[facility] LABCLIA [id number] [address] OF [facility] ALP [Catalytic activity/Vol] 65 U/L Normal 34-123 [facility] Comment on above: Order Comment: Speci men Type: BLOOD SPECIMENOrdering Facility: [facility] Address: [address] [address] Performed By: #### 2 4323-8, 273-8, 3083-1 ####[facility] LABCLIA [id number] [place] [address] [place] ALT [Catalytic activity/Vol] 9 U/L Normal 7-38 [facility] Comment on above: Order Comment: Speci men Type: BLOOD SPECIMENOrdering Facility: [facility] Address: [address] [place] [address] Performed By: #### 2 4323-8, 2731-8, 3083-1 ####[facility] LABCLIA [id number] [place] [address] [place] Anion gap [Moles/Vol] 12 mmol/L Normal 9-18 [facility] Comment on above: Order Comment: Speci men Type: BLOOD SPECIMENOrdering Facility: [facility] Address: [address] [place] [address] Performed By: #### 2 4323-8, 273-8, 3083-1 ####[facility] LABCLIA [id number] [address] [place] AST [Catalytic activity/Vol] 17 U/L Normal 13-35 [facility] Comment on above: Order Comment: Speci men Type: BLOOD SPECIMENOrdering Facility: [facility] Address: [address] [place] [address] Performed By: #### 2 4323-8, 273-8, 3083-1 ####[facility] LABCLIA [id number] [address] [place] Bilirubin [Mass/Vol] 0.3 mg/dL Normal 0.2-1.3 [facility] Comment on above: Order Comment: Speci men Type: BLOOD SPECIMENOrdering Facility: [facility] Address: [address] [place] [address] Performed By: #### 2 4323-8, 273-8, 3083-1 ####[facility] LABCLIA [id number] [address] [id number] [address] [place] Calcium [Mass/Vol] 9.1 mg/dL Normal 8.5-10.2 [facility] Comment on above: Order Comment: Speci men Type: BLOOD SPECIMENOrdering Facility: [facility] Address: [address] [place] [address] Performed By: #### 2 4323-8, 2731-8, 3083-1 ####[facility] LABCLIA [id number] [place] [address] [place] Chloride [Moles/Vol] 111 mmol/L High 97-105 [facility] Comment on above: Order Comment: Speci men Type: BLOOD SPECIMENOrdering Facility: [facility] Address: [address] [place] [address] Performed By: #### 2 4323-8, 2730-8, 3083-1 ####[facility] LABCLIA [id number] [place] [address] [place] CO2 [Moles/Vol] 19 mmol/L Low 22-30 [facility] Comment on above: Order Comment: Speci men Type: BLOOD SPECIMENOrdering Facility: [facility] Address: [address] [place] [address] Performed By: #### 2 4323-8, 2730-8, 3083-1 ####[facility] LABCLIA [id number] [place] [address] [place] Creatinine [Mass/Vol] 2.85 mg/dL High 0.58-0.96 [facility] Comment on above: Order Comment: Speci men Type: BLOOD SPECIMENOrdering Facility: [facility] Address: [address] [place] [address] Performed By: #### 2 4323-8, 2730-8, 4-1 ####[facility] LABCLIA [id number] [place] [address] [place] ESTIMATED GLOMERULAR FILTRATION RATE 19 mL/min/1.73m??? Low >=60 [facility] Comment on above: Order Comment: Specsadiq jeff Type: BLOOD SPECIMENOrdering Facility: [facility] Address: [place] [address] Result Comment: Reema mated Glomerular Filtration Rate [...] actual GFR. Performed By: #### 2 4323-8, 2730-8, 3083- ####[facility] LABIA [id number] [place] [id number] [place] Glucose [Mass/Vol] 80 mg/dL Normal 74-99 [facility] Comment on above: Order Comment: Tim jeff Type: BLOOD SPECIMENOrdering Facility: [facility] Address: [place] [address] Result Comment: The [place] [employer] (ADA) provides guidance for cutoff [...] Standards of Medical Care in Diabetes 2016, [place] [employer]. Diabetes Care. 2016.39(Suppl 1). Performed By: #### 2 4323-8, 1-8, 3083-1 ####[facility] LABIA [id number] [address] [address] [place] Potassium [Moles/Vol] 5.0 mmol/L Normal 3.7-5.1 [facility] Comment on above: Order Comment: Speci men Type: BLOOD SPECIMENOrdering Facility: [facility] Address: [address] [address] Performed By: #### 2 4323-8, 8, 3083-05 ####[facility] LABCLIA [id number] [place] [address] [place] Protein [Mass/Vol] 6.1 g/dL Low 6.3-8.0 [facility] Comment on above: Order Comment: Speci men Type: BLOOD SPECIMENOrdering Facility: [facility] Address: [address] [address] Performed By: #### 2 4323-8, 8, 3083-05 ####[facility] LABIA [id number] [place] [address] [place] Sodium [Moles/Vol] 142 mmol/L Normal 136-144 [facility] Comment on above: Order Comment: Speci men Type: BLOOD SPECIMENOrdering Facility: [facility] Address: [address] [address] Performed By: #### 2 4323-8, 2730-12, 3083-05 ####[facility] LABIA [id number] [place] [address] [place] Urea nitrogen [Mass/Vol] 28 mg/dL High 7-21 [facility] Comment on above: Order Comment: Speci men Type: BLOOD SPECIMENOrdering Facility: [facility] Address: [address] Performed By: #### 2 4323-8, 8, 3083-05 ####[facility] LABIA [id number] [place] [address] [place] PTH INTACT BLDon 07-14-2022 Parathyrin.intact [Mass/Vol] 125 pg/mL High 15 - 65 pg/mL [facility] PTH-Intact SerPl-mCncon 02-2 1-2023 Parathyrin.intact [Mass/Vol] 125 pg/mL High 15-65 [facility] Comment on above: Order Comment: Speci men Type: BLOOD SPECIMENOrdering Facility: [facility] Address: [address] [place] [address] Performed By: #### 2 4323-8, 2731-8, 3084-1 ####[facility] LABCLIA [id number] [address] [place] TYPE AND SCREEN,30 DAYon ABO O [facility] HIstorical Ab Scr Status Negative [facility] Rh Nom (Bld) Positive [facility] ABO O Normal [facility] Comment on above: Order Comment: Speci men Type: BLOOD SPECIMEN [facility] Address: [address] [place] [address] Performed By: #### T SCR30 #### [facility] B[facility] CLIA [id number] [address] OF [facility] HISTORICAL AB SCR STATUS Negative Normal [facility] Comment on above: Order Comment: Speci men Type: BLOOD SPECIMEN [facility] Address: [address] [place] [address] Performed By: #### T SCR30 #### [facility] CLIA [id number] [address] OF [facility] Rh Nom (Bld) Positive Normal [facility] Comment on above: Order Comment: Speci men Type: BLOOD SPECIMEN [facility] Address: [address] [place] [address] Performed By: #### T SCR30 #### [facility] MAIN BLOOD BANK CLIA [id number] [address] [place] URIC ACID BLOODon 07-14-2022 Urate [Mass/Vol] 6.7 mg/dL High 2.5 - 6.6 mg/dL [facility] URINALYSIS, REFLEX MICROSCOP ICon 07-14-2022 Bilirubin Ql (U) Negative Normal Negative [facility] Comment on above: Order Comment: Speci men Type: URINE SPECIMENOrdering Facility: [facility] Address: [address] Performed By: #### L [id number] ####[facility] LABCLIA [id number] [place] [address] [place] Clarity (Unsp spec) Cloudy Abnormal Clear [facility] Comment on above: Order Comment: Speci men Type: URINE SPECIMENOrdering Facility: [facility] Address: [address] [address] Performed By: #### L [id number] ####[facility] LABCLIA [id number] [place] [address] [place] Color (U) Light [place] Abnormal Yellow [facility] Comment on above: Order Comment: Speci men Type: URINE SPECIMENOrdering Facility: [facility] Address: [address] Performed By: #### L [id number] ####[facility] LABCLIA [id number] [place] [address] [place] Epithelial cells LM.HPF (Urine sed) [#/Area] Few Normal [facility] Comment on above: Order Comment: Speci men Type: URINE SPECIMENOrdering Facility: [facility] Address: [address] Performed By: #### L [id number] ####[facility] LABCLIA [id number] [place] [address] [place] Glucose Test strip (U) [Mass/Vol] Negative Normal Trace, Negative [facility] Comment on above: Order Comment: Speci men Type: URINE SPECIMENOrdering Facility: [facility] Address: [address] [address] Performed By: #### L [id number] ####[facility] LABCLIA [id number] [place] [address] [place] Hemoglobin Ql (U) 2+ Abnormal Negative, Trace [facility] Comment on above: Order Comment: Speci men Type: URINE SPECIMENOrdering Facility: [facility] Address: [address] [place] [address] Performed By: #### L [id number] ####[facility] LABCLIA [id number] [place] [address] [place] Hyaline casts (Urine sed) [#/Area] 1-3 /LPF Abnormal 0 /LPF [facility] Comment on above: Order Comment: Speci men Type: URINE SPECIMENOrdering Facility: [facility] Address: [address] [place] [address] Performed By: #### L [id number] ####[facility] LABCLIA [id number] [place] [address] [place] Ketones Ql (U) Negative Normal Negative, Trace [facility] Comment on above: Order Comment: Speci men Type: URINE SPECIMENOrdering Facility: [facility] Address: [address] [place] [address] Performed By: #### L [id number] ####[facility] LABCLIA [id number] [place] [address] [place] Leukocyte esterase Test strip Ql (U) 500 Nicholas/uL Abnormal Negative, 25 Nicholas/uL [facility] Comment on above: Order Comment: Speci men Type: URINE SPECIMENOrdering Facility: [facility] Address: [address] [place] [address] Performed By: #### L [id number] ####[facility] LABCLIA [id number] [place] [address] [place] Nitrite Ql (U) Negative Normal Negative [facility] Comment on above: Order Comment: Speci men Type: URINE SPECIMENOrdering Facility: [facility] Address: [address] [place] [address] Performed By: #### L [id number] ####[facility] LABIA [id number] [address] [facility] pH (U) 5.5 [pH] Normal 5.0-8.0 [facility] Comment on above: Order Comment: Speci men Type: URINE SPECIMENOrdering Facility: [facility] Address: [address] [place] [address] Performed By: #### L [id number] ####[facility] LABIA [id number] [place] [address] [place] Protein (U) [Mass/Vol] 1+ Abnormal Trace , Negative [facility] Comment on above: Order Comment: Speci men Type: URINE SPECIMENOrdering Facility: [facility] Address: [address] [place] [address] Performed By: #### L [id number] ####[facility] LABIA [id number] [address] [place] RBC LM.HPF (Urine sed) [#/Area] /[HPF] Abnormal 0-3 /HPF [facility] Comment on above: Order Comment: Speci men Type: URINE SPECIMENOrdering Facility: [facility] Address: [address] [place], [place] [address] Performed By: #### L [id number] ####[facility] LABIA [id number] [address] [place] Specific gravity (U) [Rel density] 1.016 Normal 1.005-1.030 [facility] Comment on above: Order Comment: Speci men Type: URINE SPECIMENOrdering Facility: [facility] Address: [address] [place], [place] [address] Performed By: #### L [id number] ####[facility] LABIA [id number] [address] [id number] [address] [place] Urobilinogen Ql (U) Negative Normal Negative [facility] Comment on above: Order Comment: Speci men Type: URINE SPECIMENOrdering Facility: [facility] Address: [address] [place] [address] Performed By: #### L [id number] ####[facility] [id number] [place] [address] [place] WBC LM.HPF (Urine sed) [#/Area] /[HPF] Abnormal 0-5 /HPF [facility] Comment on above: Order Comment: Speci men Type: URINE SPECIMENOrdering Facility: [facility] Address: [address] [place] [address] Performed By: #### L [id number] ####[facility] LABIA [id number] [place] [address] [place] Urate SerPl-mCncon 3 Urate [Mass/Vol] 6.7 mg/dL High 2.5-6.6 [facility] Comment on above: Order Comment: Speci men Type: BLOOD SPECIMENOrdering Facility: [facility] Address: [address] [place] [address] Performed By: #### 2 4323-8, 2731-8, 3084-1 ####[facility] [id number] [place] [address] [place] [place] VITAMIN D 25 HYDROXYon 07-14 25-hydroxyvitamin D3 [Mass/Vol] 41.8 ng/mL 31.0 - 80.0 ng/mL [facility] Patient Educationon 07-07-19 Patient Education Urology Dietary [...] Rhubarb. ? Beets. ? Potato chips and israeli fries. ? Nuts. ? If you regularly take a diuretic medicine, make sure to eat at least 1?2 fruits or vegetables high in potassium each day. These include: ? Avocado. ? Banana. ? [place], prune, carrot, or tomato juice. ? Baked [...] other foods Seasoning blends with salt. Salad dr (more content not included)... [facility] RAD - MISCon 07-07-2022 RAD - MIS [id number]#1 .00CD:127 [facility] Urology Office/Clinic Noteon 07-07-2022 Urology Office/Clinic Note [...] refer her to Dr. Odonnell at the [facility]. She also has a very large stone in the right kidney which is approaching 2 cm and will most likely need a PCNL on that side as well. I have instructed her to rock picker her CAT scan and retrograde pyelogram onto a CD so she can take thi (more content not included)... [facility] Comment on above: Result Comment: Elec tronically Signed By: Chalo BLUM MD\.br\Date and Time Signed: 07/07/22 10:09 EST\.br\Electronically Co-Signed By: Jennifer Hamilton\.br\Date and Time Co-Signed: 07/07/22 10:02 EST\.br\Electronically Co-Signed By: Jennifer Hamilton\.br\Date and Time Co-Signed: 07/07/22 10:03 EST XR KUBon 07-06-2022 XR KUB [facility] [place] [address] XRay Report Signed Patient: Elizabeth Irvin MR#: [id number] : 1965 Acct:[id number] Age/Sex: 56 / F ADM Date: 07/06/22 Loc: XD Room: Type: [facility] Attending Dr: Chalo Blum MD Copies to: [...] Michael Cheung M.D.07/06/2022 3:03 PM Dictation Location: [place] [address] Transcribed By: [facility] 07/06/22 1503 Dictated By: Michael Cheung DO 07/06/22 1500 Signed By: 07/06/22 1503 [facility] IntraOperative Documentson 0 06-23-2022 IntraOperative Documents [id number]# 1.00CD:127 [facility] Postoperative Documentson Postoperative Documents [id number]# 1.00CD:127 [facility] Coding Summary.on 06-22-2022 Coding Summary. CD:[id number] G h0bWw+PGhlYWQ+BC7OMYN mZ65pcJPudM5OE4lUBR0R VHGWTSXDNE9IOU4vuMZ9Q PbwV0SfjzJc QktjzAPoUV21NXq4EPD7k YmgLGzxjQ7phEWsN6c3Hv MvZH40xM06VQqsVVWyTiA 3LjZpbjsgbWFy P5jzFfKohODiOdw+PHRhY mxlIHdpZHRoPScxMDAlJy VtrDolRG3bOp4tSRUoIML vbGxhcHNlOiBj m3kiXVEjZVqsWN8frRfbL 8DkbBS1SYJjz5m2Lt41dQ I+JCVjUUX3qOywPOsab39 1IbAsv4dtNPU8 nKXuHPqjYGZ9T35ca2F0M BOaOFApNLK8iFX8uI3geA jtbxxwZ0KfuMVuIsY6SHF 4wZPatO5swPtr kkqrbX7qTsw+F11EFT8MU KQYFU2JDng9U3GlDdzmhS I+RZ10PLHoEE89vMThpWO yp9rsyCi8NiYp WVWwXWC5wRweHAnws3UyE TQsW68toKUgw0N5NXNdmZ vfsNYhLrOqwDW8sP6hZKi hfiuuu3pteprj Zoaac7jaoc11kR45O04jV MqcEYBfADH1KKAtWUJuwT amdj9xvS7vVx9+OSwwe5k px2ejaSs3FxVb RETmxdSqlIdcBEC2v1EsL q34E3XedYvni7VcKvf5mn 36bAOeq9P7yQL3HUggKIP agD6eJTvgLcY6 URXnLeThnV32vJGkLUauA p9gwZypyZoyNR0vUULump hdLFCutT1oNQYhwYFfpKe bCI1vTPPuqpuw n369PlQyODD3BSTldCXcX 7NhoH7sFpLpWFTsPKPqX6 VjdVSlYThxV809CZwmHvC 7TNOkarCvO1Vt IXNozHwuIkO8c0K5Zk5Vs 0MpkpiaLUJ0GUzbELXoRh RpIuFnYxU7N3JiDzz5CHS bnGfgQM8aM5Rh VIBbzloghvcrpOB4VCLzW CGgrE80tCVnPSyyNn2ce2 O4h344QRNlCBYmxM73Ga6 udDogMTBwdCBU oP6gkursk4naxgnuSlMlT OSaPFo7MCa8MHAxqCuaDj McHJT6HaU1USC3lHUejR0 jzQcluplgoZ4f Oyc+V47mgU7bUBH2RKJ9v mccUEEkndJiTD75GA39A6 RyPjwvdGFibGU+PGRpdiB nlGfcRO4uRiWo v4cgi5OeJJfzX6NiQSMaL RcoBmk4DRGyVFC8nBE5uZ 6bHUVfOPlmc5C5vFQ8L1D frsNnhm9wd5do VSGtUEtsZ47qlNTrn3Y3J EXjfQN4ZJQllAxpXlYftS 93Oyc+FQQweBpkb4ZhUzv dw3cja4vzeBs3 FiAvKCAyczYoaIuuZUY9s 7CtDo15T50cGOffYHCnOB HuPKRxYMMueBudiy9eoL0 wIi8+PGNvbCB3 yKZ9gR8tPBQkTvQ9XTczG 478XwOziSRzDxrmf9xhw0 ufcTq4NcHjUDMsqgXhjFz aGXZ9o2OwFs77 W65zOZpdAKSlTYJqMEYeS GEenXwerv6ttY2fOn4+PC 0mf5mybk91mI29uUO+PHR rRPT9kEhiAEdu PMElpU1lGLqrQuS4JTIgP qBjaW46sCOfYDbqUl6baS nfcGwlQC9mMUGlzpkvr51 1EgTjc8wcNOUt iGAxUHxiFEI8M69rq9C9M PUwPJDiNSS6wMU0sE3dnM lnbjogbGVmdDsgdmVydGl vQDuuARkoT654 IHRvcDsnPlBhdGllbnQgT fHnBHk9S8ByWvg8HQRffL xzOH3uzQMxKTbdXa1wvFe plMhsKI4gPGCq aljgb342YxGlr5qpCDVmg NKqXBqpOWF1D02gl0W6TC ZbVRXoWHF6pEJ3vJ5lpXv nbjogbGVmdDsg oyIatXjvIUfrJOokC153N HRvcDsnPkJpcnRoIERhdG U1WI92ZO66oBFjt0W2qAS 9I3SoXSOjgksk anwoaRT1LEOiRGXepP32K m3tzRxzLa2pFPBnFFT0UZ ZmnBWaO5CmzX0oSsOoOSR gFIPmR7GtiWZb RRaeK904MFzcJzE1SXVzj cJyZ3EtWXCkdYtkAsB1k8 I2Uf8IV7H2YJ65LD54cDU mv0U4gPF7R5Uu JLDgbrhahdpwyWF2APGpM AGfyV68Kx8duEutVb1bIQ RzXWR0OKXfqRRoX4EcnX3 yOiAjMDAwMDAw J6DasBEiFYuyN340MGnaS vS8CNHxxlJzF4LtHSEdsU otJtV8t7J2Sp6DXIa3OZ2 4TO48wYWox6U8 aGY3Z4FzITXosmlwazhxp IV6VMUaONIqwU41Gi8syE thJc3rUAUlXLD1YXHpaON mP0WemP9vOyIb MJVnULIcW9NbnNYkKJgnV 748LXvwLvH1NOMmiuNuS0 DmALLhwBqeFyX9a6S3Zw5 TVHLoEO20FVH1 iWR4NH50LT03D9WfNmanj GFibGU+PHRhYmxlIHdpZH RoPScxMDAlJyBzdHlsZT0 nHn7cVDTeSOBy bQrckISvTsSfl7mxLQQzI DvkPQ3grMuiK4KatRF7MW Oqt8i3Zb97V19iN4MvhIL +WVPmqXG1mJV7 oW6yEmZjQkJ9YIixD899Q xEdrMNzYrijt6mbf6lzbX j3EtZ4DPNyowFrxIrdUCK 7c5MmYj00W85v IHdpZHRoPSIxNSUiIHZhb Ahkkg4wzG9tLm6+PGNvbC X5sTJ0mI0wTyPfAfZ7NZv fV952AmJrnJLj Ejhtj9gly1zxnQu1YiQzL CQetpAsnTrxADI8q9SjUz 22L1IdtDwxn7RpLyd8gl6 0fCAcn5I4pXH2 V5AtSFGtyowdeJQvwIogM A6fOPBozdvpMLSjhW8kQB RzY4e3VaVyZkE3SWfnW7S anhJ7NQOegBMq QEkqVIY8X29dy5P4OWJhW PFcTFT2gNN1aN9xlIwzfg ogbGVmdDsgdmVydGljYWw tZLhlU755MGDu vWcoNSLkfC1iCAQxqWBfb WerKM6iQSYzsklmZzPAZL STWA5vADmKBMfQCIb3W3J qUvm4KQSwdRlr PO1fxWNvJItyFh1ehKlmx AduNB6fYIJbjmmxRKKwkO 1cAFEfdABjkZicXY8wWZN cfjumn318WwHm NGO3YKKtcCQwK3XphP4rG iKaAQXcJSNpI6CxcIEkIE uiH692IUadLqI9WINqefW jP9OyZBQacOry EmS8b7M4Cw5gSa3mDA1oJ HU4LU40SO55sUTqk6Q7xL F2W4OtNRItdzobkfvmfOD 5SFGcWBXbzD83 xZGbUMpgMi1uy9X1u087K UIeKETzwP38Gv5peNhfVL IdjQZUaR3vuttvz4ppnrd gIzAwMDAwMDt0 SZx4WOFblBgdMwYkJWP6L gM0RYE1dCTfbA3puZrvhv dqnS9zYme+NTcgWWVhcnM 5T7VmUjt5EGRv uXzoWV5ocAZrJVmkOe3ll AhcuLoiZG0wQWVjgcwoIY WpwJ0nLJMdvTBloLkzHW3 aBQQyetfyo455 KtSpBLQ3CTMbgLCwH8Moc Y7eUvIgLCGkSXGiM4TzmV CaNSohE748AQtbCdU8CEW bxtUfL5OxZQQg wGuzUwQ1k7E0Rb6JRA3gi JS2C0PeRnr8UKVnsYvwSZ 7tyYBiVWheLw2yqIkxnCg jMG1aWXZfmbny RYPqeH7iGZEzaUHrqLzvG G6uSFBhxvhoc076VgEnBC I9YSGbaBKiC3HcdX7rAqQ nFRHmRKUcA6Sz iSMpZOnzM638HWllJcP2J DZpzjPzZ0ZnLKLppMsjIu L4t1R6Wc1UnAC7cZT3y6U 4Q6YipRHhRSY8 ILD8hufqwle5X4NrRxkjp HI+RW41UVQkEU61tFMgcW Jpe1jrjEj8IkSvJYIyDVF 3vOmoTBmgy0St MXXeN37olDVha6H4MAIts DipeYAqDmVueVB3fF9aYY njgvvmm2tllkjcMeael9p dko43zQ27J50u IHdpZHRoPSIzMCUiIHZhb Ytzcc2wiU7yGs4+PGNvbC D9fEY4lH2bSpWxPbR4ZQy uS542PdXsgYEw Bxbne8gmi5icqAj0GwSzR NNwpkZpyOwfWFI4r3FnGy 19U19iXLnlPSRjLSIsZRM sLSXvyBoooj4u iD6yJa0+YT8zq5vstd99r D48dHI+QHZpGQF6gGrvII goXLIzcK0aGRhaPbX3HNJ wIvWtdG86yNSo GKqmCs3awTgbmQhiUF2pL YCqgoqjr535CbWga7inHA SueZAzMUbdCHZ7Q81dd1S 1PNIlYXWsORO0 pMJ0xK7trNzszifhtCIsy DsgdmVydGljYWwtYWxpZ2 54UCCtyYxqJjNdgAApN2z mbzLBRK1uKnjy dGQ+FYNwQXN3uFvcPOgyW OBjcS0jWZEuF3i5UnKfVh H3AQtzT8XogtP1WPIqhQP zHPVhoHUSlH3c wpish5sjkdwpAxBuJVFmL Oi8UXo4SOVstJsoSmMeAM I8RvU8XPQ1sRVjkG5epBq obkjneK7tVcn+ RklOOjwvdGQ+KXQqYED8n GlvZAtuNUZeyQ7mEXGpC4 e9UqNhJyV1ZVnoS3AtorG 6IGJvbGQgMTBw oMIOuF3qvtzso3bebalrI rGaJCIzXWv5WSs4NEKsgI bpVvZxTFE8TyU1RMM2xPL txV0xsYwgslpf qD2nXuf+TVJOOjwvdGQ+P GOgFQV5jZvoFAryGLBqzZ 2hDPVoZ9b0ImIxYwZ3NSx xM1VbhmQ6CWAn eRFuIZWljWWPaF6bmvuen 5bxepelVxJnRWXmDYk7HR y4PYVkcTriWoEoECE3ElZ 7POV5yBYnoR9m kWlhkiuebQ8lNwn+UGF5Z OW4HE65UL11Q2ZlFnsfkM FibGU+PHRhYmxlIHdpZHR oPScxMDAlJyBz dHls (more content not included)... [facility] Consent for Anesthesiaon Consent for Anesthesia [id number]#1 .00CD:127 [facility] Discharge Instructionson Discharge Instructions [id number]#1 .00CD:127 [facility] IntraOperative Documentson 0 06-19-2022 IntraOperative Documents [id number]#1 .00CD:127 [facility] IntraOperative Documents [id number]#1 .00CD:127 [facility] IntraOperative Documents [id number]#1 .00CD:127 [facility] IntraOperative Documents [id number]#1 .00CD:127 [facility] Main OR Intraoperative Recor don 06-19-2022 Main OR Intraoperative Record IntraOp Document Type FT Summary Primary Physician: Chalo BLUM MD Finalized Date/Time: 06/19/22 09:19:54 Pt. Name: ELIZABETH IRVIN/Sex: 1965 Female Med Rec #: [id number] Physician: Chalo BLUM MD Financial #: [id number] Pt. Type: A Room/Bed: [place] [address] Admit/Disch: 06/18/22 09:05:47 - 06/18/22 13:30:00 Institution: [...] 1 Entry 2 Entry 3 Case Attendee Noah Maria MD, Sultana Caban Role Performed Anesthesiologist Surgeon - Primary Scrub - Primary Forging Machine Hand Time In 06/18/22 11:12:00 06/18/22 11:12:00 06/18/22 11:12:00 Time Out 06/18/22 11:53:00 06/18/22 11:53:00 06/18/22 11:53:00 Procedure EXTRACORPOREAL SHOCK EXTRACORPOREAL SHOCK EXTRACORPOREAL SHOCK WAVE LITHOTRIPSY(Left) WAVE LITHOTRIPSY(Left) WAVE LITHOTRIPSY(Left) Comments DR BEAUCHAMP SUPERVISING Last Modified By: Mayi LYNN, Cheyenne Chin RN, RN, Kimberly Y 06/19/22 09:18:59 06/18/22 11:53:11 06/18/22 11:53:11 Entry 4 Case Attendee Cheyenne Figueredo RN Role Performed 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 [facility] Preoperative Documentson Preoperative Documents [id number]#1 .00CD:127 [facility] Preoperative Documents [id number]#1 .00CD:127 [facility] CHEMISTRYOrdered By: Lab ROP User on 06-18-2022 Glucose [Mass/Vol] 72 mg/dL Normal 55 - 99 mg/dL [facility] POC Subsection Comment on above: Result Comment: Jean avalos RN/ POC Device SN [id number] Invalid Interpretation Code [facility] POC Subsection POC User ID [id number] Invalid Interpretation Code [facility] POC Subsection POC Username CLAY LARIOS Invalid Interpretation Code [facility] POC Subsection Capillary Glucose POCon 05-25 Glucose [Mass/Vol] 72 mg/dL Normal 55-99 [facility] Comment on above: Result Comment: Jean avalos RN/ Performed By: #### 2 [id number] ####[facility] [address] [place] [address] Consent for Procedure/Surger yon 06-18-2022 Consent for Procedure/Surgery [id number]#1 .00CD:127 [facility] Consent for Treatmenton 05-25 Consent for Treatment [id number]#1 .00CD:127 [facility] H&P Updateon 06-18-2022 H&P Update [id number]#1 .00CD:127 [facility] Inpatient Patient Summaryon 06-18-2022 Inpatient Patient Summary [address] [address] [facility] Clinical Discharge Instructions PERSON INFORMATION Name: ELIZABETH IRVIN PHYSICIANS Admitting Physician: Chalo BLUM MD Attending Physician: Chalo BLUM MD PCP: BALBINA NAPOLES CNP Discharge Diagnosis: Comment: PATIENT EDUCATION INFORMATION Instructions: Post Op Patient Instructions - FT (Custom) (CUSTOM); Lithotripsy, Care After Medication Leaflets: Follow up: With: Address: When: Chalo BLUM [address] [place] [address], [address], [address] [address] Business (1) Within 1 to 2 weeks Comments: Call for followup appointment with an abdominal X-ray prior to your visit (my office will need to send an order for the X-ray) MEDICATION LIST New Medications [id number], [address] [place], [place] [id number], [phone] acetaminophen-hydroco done (acetaminophen-hydroc odone 325 mg-5 mg [...] for 7 Days. Refills: 0. Comment: [facility] Main OR PACU I Recordon 05-25 Main OR PACU I Record PACU Phase I Docum ent Type FT Summary Primary Physician: Chalo BLUM MD Finalized Date/Time: 06/18/22 13:01:07 Pt. Name: ELIZABETH IRVIN/Sex: 1965 Female Med Rec #: [id number] Physician: Chalo BLUM MD Financial #: [id number] Pt. Type: A Room/Bed: [place] [address] Admit/Disch: 06/18/22 09:05:47 - Institution: Case Times [...] I Outcomes Met? Yes Last Modified By: JENNIFER VAZQUEZ RN 06/18/22 13:00:53 Post-Care Text: The patient demonstrates [...] By: JENNIFER VAZQUEZ RN 06/18/22 13:01 [facility] Main OR PACU II Recordon Main OR PACU II Record PACU Phase II Document Type FT Summary Primary Physician: Chalo BLUM MD Finalized Date/Time: 06/18/22 13:26:59 Pt. Name: ELIZABETH IRVIN/Sex: 1965 Female Med Rec #: [id number] Physician: Chalo BLUM MD Financial #: [id number] Pt. Type: A Room/Bed: Admit/Disch: 06/18/22 09:05:47 [...] Signed By: Clay Dobbs RN 06/18/22 13:26 [facility] Main OR Preoperative Recordo n 06-18-2022 Main OR Preoperative Record PreOp Document Type FT Summary Primary Physician: Chalo BLUM MD Finalized Date/Time: 06/18/22 11:23:43 Pt. Name: ELIZABETH IRVIN D.O.B./Sex: 1965 Female Med Rec #: [id number] Physician: Chalo BLUM MD Financial #: [id number] Pt. Type: A Room/Bed: Admit/Disch: 06/18/22 09:05:47 [...] By: Cheyenne Figueredo RN 06/18/22 11:23 [facility] Monitor Recordon 06-18-2022 Monitor Record [id number]# 1.00CD:127 [facility] Monitor Record [id number]# 1.00CD:127 [facility] Operative Reporton 3 Operative Report Patient: ELIZABETH IRVIN Age: 56 years Sex: Female : 1965 Associated Diagnoses: None Author: Chalo BLUM MD Postoperative Information Date/ Time: 06/18/2022 11:54:00 Postoperative Diagnosis: Bilateral kidney stones (CNB36-FH N20.0, Working, Medical), Status post left JJ [...] it well. She is transferred to the [facility] and then back to PACU in satisfactory condition, stable vital signs. Plan will be for discharge home with plans to follow-up in the office within a week or so with a KUB. Discussed all this with her postoperatively and he is in agreement with the plan. Prescription sent to the pharmacy for Randall, #7 1 p.o. every 4 hours as needed pain. Instruction sheet given . Estimated Blood Loss: 0 ml. Complications: None. Anesthesia type: General. [facility] Comment on above: Result Comment: Elec tronically Signed By: Chalo BLUM MD\.br\Date and Time Signed: 06/18/22 11:58 EST Outpatient Surgery Discharge Instructionon 06-18-2022 Outpatient Surgery Discharge Instruction [place] [id number] Patient Discharge Instructions PERSON INFORMATION Name: MARILINELIZABETH ARNETT Date of : 1965 Current Date: 06/18/2022 [...] THE NEAREST EMERGENCY ROOM OR CALL 911 ALBARO Gallegos, ELIZABETH Arriaga, have received the attached patient education materials/instruction s and have verbalized understanding: May we do a follow up call? Yes No I was present when discharge instructions were given Patient Signature Date Clinican/Nurse Signature Date Follow up: With: Address: When: Chalo BLUM [address] [place] [address] [place], [address], [address] [address] Business (1) Within 1 to 2 weeks [...] to serve you. Thank you for choosing [facility] HERE ARE THE MEDICATION CHANGES THAT OCCURRED DURING YOUR HOSPITAL STAY New Medications [id number], [address] [place], [place] [id number], [phone] acetaminophen-hydroco done (acetaminophen-hydroc odone 325 mg-5 mg [...] these instructions at home: Medicines ? Take flau-fdd-iibszkj and prescription medicines only as told by [...] pale yellow. (more content not included)... [facility] Patient Education - Texton 0 06-18-2022 Patient [...] these instructions at home: Medicines ? Take ssah-gdq-aanpzdl and prescription medicines only as told by [...] help ri (more content not included)... [facility] Progress Note-Physicianon Progress Note-Physician Patient: ELIZABETH IRVIN Age: 56 years Sex: Female : 1965 Associated Diagnoses: None Author: Garfield Beauchamp Jr., DO Postoperative Information Post Operative Note: Post Anesthesia Care Unit. Anesthetic utilized: General. Health Status Allergies: Allergic Reactions (Selected) Severity Not Documented PredniSONE- Hives. Valtrex- Hives. Problem list: All Problems Anemia / SNOMED CT 380357779 / Confirmed Arthritis / SNOMED CT 5455673 / Confirmed Depression / SNOMED CT 04056971 / Confirmed Hypertension / SNOMED CT 2095614148 / Confirmed Kidney stones / SNOMED CT 950431438 / Confirmed Restless legs syndrome / SNOMED CT 93462432 / Confirmed Type 2 diabetes mellitus / SNOMED CT 189018924 / Confirmed Ureteral stone / SNOMED CT 10062260 / Confirmed Physical Examination Vital Signs 06/18/2022 [...] noted. Plan Transfer/ Discharge: Condition stable. [facility] Comment on above: Result Comment: Elec [...] for 7 day(s), 14 tab(s), Refill(s) 0, [id number], 160, cm, 06/11/22 9:42:00 EST, Height/Length Dosing, [...] Diabetes Mother Procedure history: Cysto/basket extreaction/stent placement (92529034) on 03/19/2022 at 56 Years. Hysterectomy (107164629). Gastric bypass ([id number]). Social History Social & Psychosocial Habits Alcohol [...] Glucose Cap 72 mg/dL POC Device SN [id number] POC User ID [id number] POC Username CLAY LARIOS 06/11/2022 9:56 EST WBC 4.0 E9/L RBC 4.1 E12/L LOW HGB 10.7 gm/dL LOW Hct 33.2 % LOW MCV 81.1 fL MCH 26.2 pg LOW MCHC 32.3 gm/dL RDW 18.0 % HI Platelet 311.0 E9/L MPV 7.3 fL Neutro Auto 46.1 % Lymph Auto 40.8 % [place] Auto 7.5 % Eos Auto 4.1 % Basophil Auto 1.5 % Neutro Absolute 1.8 E9/L LOW Lymph Absolute 1.6 E9/L [place] Absolute 0.3 E9/L Eos Absolute 0.2 E9/L [...] REPORT IMPRESSION: NO (more content not included)... [facility] Comment on above: Result Comment: Elec [...] Durham MD Transcribed by: HARDEEP Technologist: WANDA Pastor [facility] C Urineon 06-13-2022 Bacteria identified Cx Nom (U) Microbiology PROCEDURE: Urine Culture [R1] SOURCE: U CleanCatch BODY SITE: COLLECTED DATE/TIME: 06/11/2022 09:56 EST RECEIVED DATE/TIME: 06/11/2022 13:11 EST START DATE/TIME: 06/11/2022 13:11 EST FREE TEXT SOURCE: KULWANT REED, Chalo BLUM MD, Chalo Frazier FINAL [...] Locations R1: [facility]: [facility], [address] [place] [address], [facility] , , [facility] Comment on above: Performed By: #### 1 [id number], [id number] ####[place] [address] [place] [address] Immunization Recordson 06-12 Immunization Records [id number]# 1.00CD:127 [facility] Auto Diffon 06-11-2022 Basophils/100 WBC (Bld) 1.5 % Normal 0.0-2.0 [facility] Comment on above: Order Comment: Order Added by Discern Expert. Performed By: #### 1 [id number], [id number], [id number], [id number], [id number] ####[place] [address] [place] [address] Basophils/Leukocytes Auto (Bld) [Pure # fraction] 0.1 E9/L Normal 0.0-0.2 [facility] Comment on above: Order Comment: Order Added by Discern Expert. Performed By: #### 1 [id number], [id number], [id number], [id number], [id number] ####[address] [address] Eosinophils/100 WBC (Bld) 4.1 % Normal 0.0-8.0 [facility] Comment on above: Order Comment: Order Added by Discern Expert. Performed By: #### 1 [id number], 6963641, 9135896, 6470712, [id number] ####[address] [address] Eosinophils/Leukocytes Auto (Bld) [Pure # fraction] 0.2 E9/L Normal 0.0-0.5 [facility] Comment on above: Order Comment: Order Added by Barber Expert. Performed By: #### 1 [id number], 7007564, 2870147, 3197169, 00427385 ####[address] [address] Lymphocytes/100 WBC (Bld) 40.8 % Normal 14.0-50.0 [facility] Comment on above: Order Comment: Order Added by Discern Expert. Performed By: #### 1 [id number], 1950737, 1100590, 5859126, 61381157 ####[address] [address] Lymphocytes/Leukocytes Auto (Bld) [Pure # fraction] 1.6 E9/L Normal 1.0-4.0 [facility] Comment on above: Order Comment: Order Added by Barber Expert. Performed By: #### 1 [id number], 0060354, 4928379, 7603683, [id number] ####[facility] [address] [place] [address] Monocytes/100 WBC (Bld) 7.5 % Normal 4.0-14.0 [facility] Comment on above: Order Comment: Order Added by Discern Expert. Performed By: #### 1 6117943, 9241111, 2396270, 2157270, 15242027 ####[address] [place] [address] Monocytes/Leukocytes Auto (Bld) [Pure # fraction] 0.3 E9/L Normal 0.2-1.0 [facility] Comment on above: Order Comment: Order Added by Discern Expert. Performed By: #### 1 [id number], 2195784, 3508855, 0995150, 79450177 ####[address] [address] Neutrophils/100 WBC (Bld) 46.1 % Normal 36.0-75.0 [facility] Comment on above: Order Comment: Order Added by Barber Expert. Performed By: #### 1 3210199, 4998410, 2569086, 7556775, 04600243 ####[address] [place] [address] Neutrophils/Leukocytes Auto (Bld) [Pure # fraction] 1.8 E9/L Low 2.0-7.5 [facility] Comment on above: Order Comment: Order Added by Discern Expert. Performed By: #### 1 5541895, 9075907, 9058214, 6975640, 08921865 ####[address] [place] [address] BMPon 06-11-2022 Anion gap [Moles/Vol] 11 mmol/L Normal 6-16 [facility] Comment on above: Performed By: #### 1 [id number], 1011924, 7582965, 9954922, [id number] ####[address] [place] [address] Calcium [Mass/Vol] 9.2 mg/dL Normal 8.9-11.1 [facility] Comment on above: Performed By: #### 1 [id number], 4357798, 9615896, 7161326, [id number] ####[facility] [address] [place] [address] Chloride [Moles/Vol] 110 mmol/L Normal 101-111 [facility] Comment on above: Performed By: #### 1 0651407, 8692518, 6323843, 3802820, [id number] ####[facility] [address] [place] [address] CO2 [Moles/Vol] 23 mmol/L Normal 21-31 [facility] Comment on above: Performed By: #### 1 [id number], 9929316, 2812741, 5895667, 92247589 ####[facility] [address] [place] [address] Creatinine [Mass/Vol] 1.8 mg/dL High 0.5-1.3 [facility] Comment on above: Performed By: #### 1 9860285, 9755359, 5240729, 7148532, 75836989 ####[facility] [address] [place] [address] Glucose [Mass/Vol] 78 mg/dL Normal 55-199 [facility] Comment on above: Result Comment: If t his glucose result represents a fasting glucose, interpretation should refer to the following reference range: 55-99 mg/dL Performed By: #### 1 8829653, 0273102, 8807800, 5787241, 01635229 ####[facility] [address] [facility] [place] [address] Potassium [Moles/Vol] 5.3 mmol/L Normal 3.5-5.3 [facility] Comment on above: Performed By: #### 1 3752361, 2948153, 7581574, 9021508, 34524669 ####[facility] [address] [place] [address] Sodium [Moles/Vol] 139 mmol/L Normal 135-145 [facility] Comment on above: Performed By: #### 1 5766308, 9465982, 3542360, 4772123, 52526754 ####[facility] [address] [place] [address] Urea nitrogen [Mass/Vol] 22 mg/dL High 5-21 [facility] Comment on above: Performed By: #### 1 8452358, 6601165, 2100810, 4278564, 63574877 ####[facility] [address] [place] [address] Urea nitrogen/Creatinine [Mass ratio] 12 No Units Normal 10-20 [facility] Comment on above: Performed By: #### 1 0423392, 8293073, 1994544, 7360920, 51668222 ####[facility] [address] [place] [address] CBC w/ Auto Diffon 3 Erythrocyte distribution width (RBC) [Ratio] 18.0 % High 10.9-14.2 [facility] Comment on above: Performed By: #### 1 0320918, 4938279, 0016762, 7353421, [id number] #### [facility] [address] [place] [address] Hematocrit (Bld) [Volume fraction] 33.2 % Low 34.0-46.0 [facility] Comment on above: Performed By: #### 1 7886077, 3867388, 3164530, 5849017, [id number] #### [facility] [address] [place] [address] Hemoglobin (Bld) [Mass/Vol] 10.7 g/dL Low 12.0-16.0 [facility] Comment on above: Performed By: #### 1 4430732, 5234071, 5484521, 1923210, 96237652 #### [facility] [address] [place] [address] MCH (RBC) [Entitic mass] 26.2 pg Low 27.0-34.0 [facility] Comment on above: Performed By: #### 1 6130285, 3653883, 9084043, 3483731, 90999061 #### [facility] [address] [place] [address] MCHC (RBC) [Mass/Vol] 32.3 g/dL Normal 31.4-36.0 [facility] Comment on above: Performed By: #### 1 0697610, 4942700, 5420135, 4862744, 64117546 #### [facility] [address] [place] [address] MCV (RBC) [Entitic vol] 81.1 fL Normal 80.0-100.0 [facility] Comment on above: Performed By: #### 1 8794000, 5977563, 4507987, 0769636, 66323808 #### [facility] [address] [place] [address] Platelet mean volume (Bld) [Entitic vol] 7.3 fL Normal 6.4-10.8 [facility] Comment on above: Performed By: #### 1 4791317, 2280705, 7478156, 6765354, 75117141 #### [facility] [address] [place] [address] Platelets (Bld) [#/Vol] 311.0 E9/L Normal 150.0-500.0 [facility] Comment on above: Performed By: #### 1 6412624, 8205463, 6813629, 8997849, 16714345 #### [facility] [address] [place] [address] RBC (Bld) [#/Vol] 4.1 E12/L Low 4.3-5.9 [facility] Comment on above: Performed By: #### 1 4847538, 7619183, 3051316, 0524017, 80474886 #### [facility] [address] [place] [address] WBC corrected for nucl RBC Auto (Bld) [#/Vol] 4.0 E9/L Normal 4.0-11.[address] [facility] Comment on above: Performed By: #### 1 1070578, 1195545, 4152880, 0175922, 62966597 #### [facility] [address] [place] [address] CHEMISTRYOrdered By: SYSTEM SYSTEM on 06-11-2022 Anion gap [Moles/Vol] 11 mmol/L Normal 6 - 16 mEq/L F [facility] Remisol Calcium [Mass/Vol] 9.2 mg/dL Normal 8.9 - 11. 1 mg/dL [facility] Chloride [Moles/Vol] 110 mmol/L Normal 101 - 1 11 mmol/L [facility] Remisol CO2 [Moles/Vol] 23 mmol/L Normal 21 - 31 mmol/L [facility] Creatinine [Mass/Vol] 1.8 mg/dL High 0.5 - 1.3 mg/dL [facility] GFR/1.73 sq M.predicted among blacks MDRD (S/P/Bld) [Vol rate/Area] 35 mL/min/1.73 m2 Low >=59mL/min/1 .73 m2 [facility] Chem S GFR/1.73 sq M.predicted among non-blacks MDRD (S/P/Bld) [Vol rate/Area] 29 mL/min/1.73 m2 Low >=59mL/min/1 .73 m2 [facility] Chem S Glucose [Mass/Vol] 78 mg/dL Normal 55 - 199 mg/dL [facility] Potassium [Moles/Vol] 5.3 mmol/L Normal 3.5 - 5.3 mmol/L [facility] Sodium [Moles/Vol] 139 mmol/L Normal 135 - 145 mmol/L [facility] Urea nitrogen [Mass/Vol] 22 mg/dL High 5 - 21 mg/dL [facility] Remisol Urea nitrogen/Creatinine [Mass ratio] 12 mg/mg Normal 10 - 20 [facility] Remisol COAGULATIONOrdered By: Pia Muse on 06-11-2022 aPTT Coag (PPP) [Time] 33.1 s Normal 25.1 - 36.5 second(s) [facility] Auto Coag INR Coag (PPP) [Relative time] 1.0 {INR} Invalid Interpretation Code [facility] Auto Coag PT Coag (PPP) [Time] 10.6 s Normal 9.4 - 1 2.5 second(s) [facility] Auto Coag Consent for Treatmenton 05-24 Consent for Treatment [id number] [facility] [id number]#1 .00CD:127 Normal [facility] HEMATOLOGYOrdered By: SYSTEM SYSTEM on 06-11-2022 Basophils/100 WBC (Bld) 1.5 % Normal 0.0 - 2.0 % [facility] HemeAutoSS Basophils/Leukocytes Auto (Bld) [Pure # fraction] [...] Coag (PPP) [Time] 33.1 second(s) Normal 25.1-36.5 [facility] Comment on above: Result Comment: Para meter [...] the same coagulation reagent and instrumentation as [facility]. Currently there are no coagulation studies available worldwide for children to 14 days, and no normal ranges. Heparin therapeutic range (represented by Anti-Factor Xa activity of 0.2 - 0.4 U/mL) corresponds to PTT of 56.6 - 109.0 sec. Performed By: #### 1 0108631, 6135783, 0897150, 6467300, 03486058 #### [facility] [address] [place] [address] INR Coag (PPP) [Relative time] 1.0 {INR} Invalid Interpretation Code [facility] Comment on above: Result Comment: INR results are specifically intended to assess patients stabilized on long-term Anticoagulation therapy suggested INR?s ?Less Intensive Anticoagulation? 2.0 ? 3.0 Conventional Range 3.0 ? 4.5 Performed By: #### 1 1137754, 3246598, 7690592, 3022780, 01929362 #### [facility] [address] [place] [address] PT Coag (PPP) [Time] 10.6 second(s) Normal 9.4-12.5 [facility] Comment on above: Result Comment: 15 d [...] the same coagulation reagent and instrumentation as [facility]. Currently there are no coagulation studies available worldwide for children to 14 days, and no normal ranges. Performed By: #### 1 9858620, 5490657, 2192489, 9432905, 76345936 #### [facility] [address] [place] [address] UA With Cult Reflexon 2022 Bacteria LM Ql (Urine sed) 3+ /HPF Abnormal Trace [facility] Comment on above: Performed By: #### 1 8329302, 2464235 ####[facility] [address] [place] [address] Bilirubin Ql (U) Negative Normal Negative [facility] Comment on above: Performed By: #### 1 8127414, 6301651 ####[facility] [address] [place] [address] Clarity (U) SL CLOUDY Abnormal Clear [facility] Comment on above: Performed By: #### 1 2115943, 7298573 ####[facility] [address] [place] [address] Color (U) YELLOW Normal Yellow [facility] Comment on above: Performed By: #### 1 7124446, 9325648 ####[facility] [address] [place] [address] Epithelial cells.squamous LM.HPF (Urine sed) [#/Area] 3-4 Normal 0-2 [facility] Comment on above: Performed By: #### 1 5298006, 6977844 ####[facility] [address] [place] [address] Glucose Test strip (U) [Mass/Vol] Negative Normal Negative [facility] Comment on above: Performed By: #### 1 6485109, 7228993 ####[facility] [address] [place] [address] Hemoglobin Ql (U) 2+ Abnormal Negative [facility] Comment on above: Performed By: #### 1 6166828, 6023099 ####[facility] [address] [facility] [place] [address] Ketones (U) [Mass/Vol] Negative Normal Negative Fi [facility] Comment on above: Performed By: #### 1 7422022, 3344776 ####[facility] [address] [facility] [place] [address] [place].plasma/[place] .RBC (Bld) [Mass ratio] 4-20 Normal 0-3 [facility] Comment on above: Performed By: #### 1 3573262, 0216390 ####[facility] [address] [facility] [place] [address] Nitrite Ql (U) Positive Abnormal Negative [facility] Comment on above: Performed By: #### 1 6082754, 1523755 ####[facility] [address] [place] [address] pH (U) 6.0 [pH] Invalid Interpretation Code 5.0-9.0 [facility] Comment on above: Performed By: #### 1 5446945, 5121372 ####[facility] [address] [place] [address] Protein (U) [Mass/Vol] TRACE Abnormal Negative [facility] Comment on above: Performed By: #### 1 1681197, 0919781 ####[address] [address] Specific gravity (U) [Rel density] 1.025 Invalid Interpretation Code 1.005-1.030 [facility] Comment on above: Performed By: #### 1 1562115, 0369569 ####[address] [address] Type of Urine collection method Clean Catch Normal [facility] Comment on above: Performed By: #### 1 8141007, 0247263 ####[address] [address] Urobilinogen Qn (U) 0.2 {Coby'U}/dL Normal 0.0-1.0 [facility] Comment on above: Performed By: #### 1 6843287, 9587082 ####[address] [address] WBC Auto Ql (U) 3+ Abnormal Negative [facility] Comment on above: Performed By: #### 1 6383531, 8697286 ####[address] [address] WBC LM.HPF (Urine sed) [#/Area] /[HPF] Abnormal 0-5 [facility] Comment on above: Performed By: #### 1 4308333, 3153952 ####[address] [address] URINALYSISOrdered By: Pia weber on 06-11-2022 Bacteria [...] AM) Normal Negative [facility] UA Auto SS [place].plasma/[place] .RBC (Bld) [Mass ratio] 4-20 /HPF Normal 0-3/HPF [facility] UA Auto SS Nitrite Ql (U) Positive *ABN* (06/11/22 9:56 AM) Invalid Interpretation Code Negative [facility] UA Auto SS pH (U) 6.0 *NA* (06/11/22 9:56 AM) Invalid Interpretation Code 5.0 - 9.0 [facility] UA Auto SS Protein (U) [Mass/Vol] Trace *ABN* (06/11/22 9:56 AM) Invalid Interpretation Code Negative [facility] UA Auto SS Specific gravity (U) [Rel density] 1.025 *NA* (06/11/22 9:56 AM) Invalid Interpretation Code 1.005 - 1.030 [facility] UA Auto SS UA Spec Desc Clean Catch (06/11/22 9:56 AM) Normal [facility] UA Auto SS Urobilinogen Qn (U) 0.3905020 {Coby'U}/dL Normal 0.0 - 1.0 EU/dL [facility] UA Auto SS WBC Auto Ql (U) 3+ *ABN* (06/11/22 9:56 AM) Invalid Interpretation Code Negative [facility] UA Auto SS WBC LM.HPF (Urine sed) [#/Area] /[HPF] Invalid Interpretation Code 0-5/HPF [facility] UA Auto SS eGFRon 01-19-2023 GFR/1.73 sq M.predicted among blacks MDRD (S/P/Bld) [Vol rate/Area] 35 mL/min/1.73 m2 Low >=59 [facility] Comment on above: Order Comment: Order added by Discern Expert. Result Comment: eGFR is race adjusted. AA=. Performed By: #### 1 [id number], 4021819, 7591710, 5275738, 49042988 ####[facility] [address] [place] [address] GFR/1.73 sq M.predicted among non-blacks MDRD (S/P/Bld) [Vol rate/Area] 29 mL/min/1.73 m2 Low >=59 [facility] Comment on above: Order Comment: Order added by Discern Expert. Result Comment: Senior Cost Analyst barron kidney disease could be indicated at eGFR's of less than 60 mL/min/1.73m2. Kidney failure is indicated at less than 15 mL/min/1.73m2. Performed By: #### 1 7136859, 4670397, 8110106, 7523752, 39562293 ####[facility] [address] [place] [address] Outside Recordson 05-14-2022 Outside Records [id number]# 1.00CD:127 Normal [facility] Consultation Noteon 05-07-20 Consultation Note [id number]#1 .00CD:127 Normal [facility] Office Visit (Cardiology)on 05-05-2022 Follow-up visit Diagnoses/Problems Assessed Benign essential hypertension (401.1) (I10) Overweight with body mass index (BMI) of 26 to 26.9 in adult (278.02,V85.22) (E66.3,Z68.26) Never a smoker Pre-operative cardiovascular examination (V72.81) (Z01.810) Orders Benign essential hypertension, Pre-operative cardiovascular examination IO EKG Electrocardiogram- 12 Lead; Status:Complete; Done: [id number] Overweight with body mass index (BMI) of 26 to 26.9 in adult Healthy Weight Tips; Status:Complete - Retrospective Authorization; Done: [id number] Some eating tips that can help you lose weight.; Status:Complete - Retrospective Authorization; Done: [id number] SocHx: Never a smoker Tobacco Use Screening; Status:Complete; Done: [id number] Patient Instructions Please bring all medicines, vitamins, [...] negative for complaint. Vitals Vital Signs Recorded: 52Gzg5709 03:50PMRecorded: 16Pbm6277 03:49PM Wlwgbrcd98, RUE, Sbctlvi95, LUE, Sitting Pwagjstaq17, RUE, Ejuebtp45, LUE, Sitting Heart Bcoh433, Apical Height5 ft 3 in Mmcgxt657 lb BMI Pwlpfnynfj14.22 kg/m2 BSA Calculated1.7 Tobacco Useb) No PHQ-2 [...] Signatures Electronically (more content not included)... Normal [facility] Tobacco Screening.on 022 Tobacco use status [facility] b) No -[facility] y [facility] DO Work Phone: Tobacco Screening. Yes [facility] y [facility] DO Work Phone: Coding Summary.on 04-21-2022 Coding Summary. CD:[id number] G h0bWw+PGhlYWQ+ET1LXWX oW03erJSzuR5TB1xPLV1T NFGVABLZKF2MIR6thEP9B JpbP5PkfrXc KpnufEFpCX10SAs6GXD5c EhzCDiugB9pmPTqV5i2Km UrML32zE47PAcdROBiAtH 3LjZpbjsgbWFy C1twOoUmaCRhXoq+PHRhY mxlIHdpZHRoPScxMDAlJy GlyDyvVA9xNm4pVGWwRUD vbGxhcHNlOiBj i9qjJPFmYExtPH8rgSttW 8ZmzQA9BKWbr7n1Xf83wZ I+GSSvFPA2wBfkWBbtf23 6GmSwm3hyTMG2 bZGaGCuqBOB9N86xu8L3M CPaTNDaHWE0dQV7kJ4szF ojueguV6CuaXXmCfL5BQF 6nXPswN5jhUly uszsjZ9eWeb+D58CTB6QI AJTEU9FVvv8S2WqUfsfjE I+VK73QFWwPA62gRVplWZ tx4dbzRi9JpUd ERNoPZI2jUnkDUswl4SfM CHkQ74aoDYzu5A0MMWiyP lnqFObZqJnuQX7eW0rDCg njmywz1xspbvw Lhqfz9enqy95uL95S59cK EcxLQZuQPV3ESRwSFPexM jixc3viV2cVe1+ATtuc8o vd2xyyEr7UrIj PDQusvMofNpwHVC1x6BpM p74S6ClnSkpq0LtFqw8rj 03xVKov0J6zUX0WIkqXTE hfC9tLTwrDlK8 DIZiUaYsxT32xCQpBSobR r2edQyyiAzaCJ8dIGDsjz qnRHUzrO5zYMOitQPfcUa iTZ3lZDStyfdm m305ZkLmYXU1BICpdHOaB 2FsqV6fOwXmMIAlGMJiM5 AkgGXcLHtbC820AIncKyC 1KQQugmQxJ3Fd PBEnmRxeFqT7u1Q4Hy9Ko 1UuiljdURA6WPjyVQUlLp K4UnXcDuN3X2HnQkv3BRF hvJtvSM3rE0Ym RKBvlpbfqinupMQ2KMGuW REszW29aWWhKLvzTt9rs5 D5u641HLLuPSRkfU48Tp9 udDogMTBwdCBU dU3txtfdj0nvwrztHuNlW MSlHIf7TKa2VOMgyDulBy IkYOC1RaN7EJD7tGMupV5 sfBwoxsiwiO8x Oyc+K79bmC9lMKN8MBI8w bjvCBMetbTmFT96TS35Y1 RyPjwvdGFibGU+PGRpdiB gjWpzYX8sDxAl l0dub5MzTGwkW9LfEJTzT BriBwb0MEZpOEZ6qAD9uN 4tTJXuWRjcz3L0sRH2Y0W rhmXidh1ww7is KKYzIEgrV36moFJwx8J5B GIxgIE6YPQdsZleIvAsrV 93Oyc+UHClzGutg9DiLbo bp1von6cjgPv6 FvVaNLFgoqXueXhgEMV0r 8StFh98A24tWDerKMVlNS RzJKWpNWKwsHgotb0goU9 wIi8+PGNvbCB3 rCC2kB9vMAGiHeQ9MCncL 469OtSgjICkAfvlp0mpg3 hcuCr2HyLgNDPjwlQyxMh fCDI1k7UoHd08 Y99eEGykWKSeASHvLJTxB NJnqMlhmo7ysO5wFx9+PC 6wc7djti08xR75yWZ+PHR wCNO6jRzvFOqw ROIylX0pZJibIbK3LTGxM fAjqP14rPNxSXewLp6khI hwfWmeYJ3oITFzrqcjf85 1RuEmy5ldDSPv iSKkEPvxMXV5V78pe0F5Y NUkNWKbMFI3pTE1xA6phT lnbjogbGVmdDsgdmVydGl lSQtlZYkyO952 IHRvcDsnPlBhdGllbnQgT jAxXTf0U1RqKyf7VSLddS ibQP5psTQuKKznMv9upCv qlJriAZ7rRSWf icsdd986PpRdw2rnHNDjo IZdBIgcNWB1X21md5F5SQ HsXYVoIYJ4zMT5dG9slEu nbjogbGVmdDsg qoCbcCejCVgcTGspG280G HRvcDsnPkJpcnRoIERhdG S0MW08QI99dRDcw3O1cPO 1F1JbULVirtgn ouahcPP7SZYoQDSbwI78O i8ktXuuUw5tZHQaIJB0AY AwdXXsC0YyxR8pThDaAKM xAANlD0GjgRQl KZzaT790RRryOvX2RYMot zUcZ2FgJFHebIanOsS2w8 N9Od2JN9E8CH48OX61bSN vf0Z6nCX9N5Wz SVXvmjmqzhsnbSX0YMFhI HWcbK49Lj2zuNgyNe4yLT YsRMA9ZEReeFSxX2DzgM3 yOiAjMDAwMDAw A9EmnIIbSNtnP754UGsvK jK4OTUbytMxN4BvTHJobC bjXzY6c0Y9Tk0NQWs3VN2 9RT47yPBic1A3 vXE7V4BcNVIcvbxfgrqka FA5JYHnFOVshV96Ba2ppS zdHb3yFQByIWP8YRUakYS aP7TufE3bNiHe ADJeZTOoN3WctWBuGPajH 831JUxkCsV7DYEnqyGaG3 FjKNIvdNzdThU7h8E1He4 PXRIeKU59GLS1 vKB5CA69DU16A4GbYdynf GFibGU+PHRhYmxlIHdpZH RoPScxMDAlJyBzdHlsZT0 tWd5lKQFhRCBs dYfjwIUpRyFwj2eyAIKmS EgtSU3kvGagN9DgkDD2HD Mtz6t3Zq46M92nD6ZjvKE +WJUdoYL7uHA5 jL1cJnSiHiF7WLzdS699H cUfkVXdOmkdf5hll2btxS h2XqU6KZSjzuZiiQnxDTK 8s7CnNb36N59z IHdpZHRoPSIxNSUiIHZhb Izrlr3taI4jZw8+PGNvbC R6qTD1fV4aQyRgHhZ6RQn qX847AcShpGCh Slbjh7bpc4fmoVr0ZsClF ANujtVfuOtoIXD9t1ImFw 56K4SbwGlti0NjPwg3fl8 4aZGcv6L9wVB0 W7NaAZBwistmqWQxaTunC X6fJDVjomujFVOneW8hTJ WmD8r7YdAmKiU5VWyqQ5Y hieI2BAXdrSVq OBgcFIA9M50ad4B5XWKlX OMeXGD9jDF1iN2ylCexmm ogbGVmdDsgdmVydGljYWw kXAheH717BRPb sVxzUXMzuM9yEHJuxZWij GzmFE4gWDAzijvdGzGNHX YCWU6oATjIKLnHYBj2F2O fNuz8TKBzmRxn JR7dlHIgBXtqJo9bcYtom FdiVW6qUWNdgljoGEXwzP 4qQRWmiPSrfKxpHN3jDKX vlfnlg414EcBv FLM2LSMmqIQnP5GcfA0pW kHuIOPsBWNbM5HayDYcJL ffT953OCvdNwT4QNFlnqR lI1VhZZSxvMyr HaM4v2B8Mb1rSs5dNE8rL FL0GK21WK93aXMgr7M3oW P0G7VqBJOzqfdqxizhwKM 2LOEsTTWezE96 oPWhTHqkKq5eu9Y0r502X QNsUSAkgJ40Xh3ffHmhTQ UhmJMUjG8rnuiyr2yxxhr gIzAwMDAwMDt0 QEo9OHRjuEdoNaRcXFT7X fT5XHE1hBFfmW4lsYodxd ziwO9jYgb+NTcgWWVhcnM 0P3AnQgc3HHTb bBsbYO9pnSHwNRxjSd1gq LkpdDvdCQ9vKGKpkcnuEE WaiQ8gNWGlnMDhnNkeTY0 oPGMduxwea225 SgLwKEV4YICvyBHiK9Ecz V3kCtVyYBEtJURdB8OcqT TcQWlxC068MJbmOdX2QRR wfuNmD3DoMLBu oReqJpI4k7P3Bn9RBY5iw QZ6X5UdQej7KHJjlUodSY 9fuYAyTZdkAn8eiYkbkXy xAJ0iZKYeifaf WRDinZ0cACKcdKHprWmqK A0lZPMvlkhsi998OrEjXZ Q7BMLukQYcQ3MweM8aZdD qIIQjFQYpU6Xx nMBzQTkjS233WFihIgD1N FZywcEtX9ThVOWqtBqdQx H9x6U1Ry7DsIUsONLhCZ0 7RW94BG87D8If PjwvdGFibGU+PHRhYmxlI HdpZHRoPScxMDAlJyBzdH okLU0iFd1iJHYtYTJrjHj zfANsAoBdw6jc TEHkRKytKU6ojNibE3Hhb XO4VTWfl6j0Eq18A56eU5 JvdXA+SEUdjBQ8xCW4dU6 mYbEpUbW6WZvp S349HnZfwDWbOkqji6wvm 4tbcCd1BeExUMOmdpJnxW ueCTO0h0ReKm70J52rHBo pZHRoPSIyMCUi ALBmdVllee4hbG6uIp7+P OJdsIF3yUE3aY0hVpYsZy V7NMvpN300KrKnvSDzHam cF02pY1FfaLA+ LEVhJrd2ISBxsTvtUE7av GOfBYaaUy8fBGX4UjKcEe FaPXanH8BjZZSjsqfatkj piZR4CWQbMZXc bC62Gy4onZabNg1wWFIjM GT0WWIveBZcO3MkdE6bLx HoDILjSZBxQ9QepWGgMEj iC503CSsiKfW7 PJFyvmYiG4PhWMDriEtnQ pX7f0H8Gb4LmJfjqCZtYS 1mTsAcOYb5R8CoPro0BVP bkSyxCN1tcHYh QSufRu5qbGnolBtgKO2iW BPlnbqra175UlElh7hgWC LxwSGgJImcFAS3G23cn3A 6JTLvPBLfVPB8 fBF4yD5waDjylmwtjPBcm DsgdmVydGljYWwtYWxpZ2 07RLWpwWqiNnQDUyf1Q1A oDns6QENsiKua WC8zuDDmLGdjZt4toBobr QijKA0yQRQpqbbir031Zz Awx5lqGSRsdMRjZHmaTDR 7F84qt3O7SESw AERfVJH5bZS4nJ1qkNbnz jogbGVmdDsgdmVydGljYW cdWQbvV194FWYetLbqAb2 YTtp0J1MjSst2 WZKugGerLG5cwQEqEBezI d5pjRnazCukOD5qPDOmsi phz668LhAxx3zrCAYlqRK mGUynELP7D67w u5G1BSElYGCwZQS7dRV4o I3mbUobriojjYSnkXivfs YubBamSEzqEGorN716XBY vcDsnPlBheWVy OjwvdGQ+BP77xa83Y8RvW xinHpw0TPIyVIW9zQY0pI 3iKWBqHDvrp1A5gQX2V4D ahgExwf1jx1al YXBz (more content not included)... Normal [facility] Outside Recordson 04-21-2022 Outside Records [id number]#1 .00CD:127 [facility] Consent for Treatmenton 03-25 Consent for Treatment [id number]#1 .00CD:127 [facility] XR Chest 2 Viewson XR Chest 2 [...] Colt Sweeney M.D. Transcribed by: HARDEEP Technologist: LUPE [facility] Outside Recordson 04-14-2022 Outside Records [id number]#1 .00CD:127 [facility] RAD - MISCon 04-06-2022 RAD - MISC [id number]#1 .00CD:127 [facility] Insurance Correspondence Off iceon 04-02-2022 Insurance Correspondence Office [id number]#1 .00CD:127 Normal [facility] Formson 04-01-2022 Forms [id number]# 1.00CD:127 Normal [facility] XR KUB 1 VIEWon 04-01-2022 XR KUB [...] by: NATACHA WILD Date: 2022-04-01 08:23 Normal [facility] Patient Educationon 03-31-20 Patient Education Urology Kidney [...] these instructions at home: Medicines ? Take wciu-inq-nlvotfv and prescription medicines only as told by [...] 10/26/2008 Document Revised: 09/26/2019 Document Reviewed: 09/26/2019 [employer] Patient Education ? 2019 [employer] Normal [facility] Urology Office/Clinic Noteon 03-31-2022 Urology Office/Clinic Note Chief Complaint New Pt HPI Staff New Pt. Pt was seen at [facility] on 03/19/22 due to right flank pain. [...] ureter) New patient. Pt was seen at [facility] on 03/19/22 due to right flank pain. [...] ESWL currently Follow-up With When Contact Information KULWANT REED, Chalo P, URL [address] [address]- Additional Instructions: Schedule Left [facility] Patient Education Kidney Stones, Qqdk-gh-Eekj IJennifer, personally scribed for Dr. Blum on 03/31/2022 [...] Ozempic, SubCutan (more content not included)... Normal [facility] Comment on above: Result Comment: Elec tronically Signed By: Chalo BLUM MD\.br\Date and Time Signed: 03/31/22 13:50 EST\.br\Electronically Co-Signed By: Jennifer Hamilton\.br\Date and Time Co-Signed: 03/31/22 13:36 EST Operative Reporton 2 Operative Report [id number] Normal [facility] CALCULI, URINARYon 2 2,8 Dihydroxyadenine Normal [facility] Comment on above: Performed By: #### C ALCULI #### [facility] [address] [place] [address] Dr. Adryan Faustin Ammonium Acid Urate Normal [facility] Comment on above: Performed By: #### C ALCULI #### [facility] [address] [address] [address] Adryan Faustin Bilirubin Ql (U) Normal [facility] Comment on above: Performed By: #### C ALCULI #### [facility] [address] [address] [address] Adryan Faustin Ca Oxalate Dihydrate 20 % Normal [facility] Comment on above: Performed By: #### C ALCULI #### [facility] [address] [address] [address] Adryan Faustin CaHPO4 (Brushite) Normal [facility] Comment on above: Performed By: #### C ALCULI #### [facility] [address] [address] [address] Adryan Faustin Calcium Bilirubinate Normal [facility] Comment on above: Performed By: #### C ALCULI #### [facility] [address] [address] [address] Adryan Faustin Calcium Carbonate Normal [facility] Comment on above: Performed By: #### C ALCULI #### [facility] [address] [address] [address] Adryan Faustin Calcium Oxalate Monohydrate 80 % Normal [facility] Comment on above: Performed By: #### C ALCULI #### [facility] [address] [address] [address] Adryan Faustin Calcium Palmitate Normal [facility] Comment on above: Performed By: #### C ALCULI #### [facility] [address] [address] [address] Adryan Faustin Calcium Phosphate Normal [facility] Comment on above: Performed By: #### C ALCULI #### [facility] [address] [address] [address] Adryan Fautsin Calcium Stearate [facility] Comment on above: Performed By: #### C ALCULI #### [facility] [address] [place] [address] Dr. Adryan Faustin Carbonate Apatite Normal [facility] Comment on above: Performed By: #### C ALCULI #### [facility] [address] [place] [address] Dr. Adryan Faustin Cellular Material [facility] Comment on above: Performed By: #### C ALCULI #### [facility] [address] [address] [address] Adryan Faustin Cholesterol [facility] Comment on above: Performed By: #### C ALCULI #### [facility] [address] [address] [address] Adryan Faustin Color (U) Brown Normal [facility] Comment on above: Performed By: #### C ALCULI #### [facility] [address] [address] [address] Adryan Faustin Comment [facility] Comment on above: Performed By: #### C ALCULI #### [facility] [address] [address] [address] Adryan Faustin Comment Comment [facility] Comment on above: Result Comment: Calc ulus received wet. Wet calculi must be dried before analysis, which delays reporting of results. Leaving calculi wet (such as water, saline, blood, urine) may lead to changes in composition. Performed By: #### C ALCULI #### [facility] [address] [place] [address] Dr. Adryan Faustin Comment: Comment Normal [facility] Comment on above: Result Comment: Alejandra sandoval questions regarding Calculi Analysis [facility] at: [phone]. Performed By: #### C ALCULI #### [facility] [address] [place] [address] Dr. Adryan Faustin Composition Comment [facility] Comment on above: Result Comment: Perc entage (Represents the % composition) Performed By: #### C ALCULI #### [facility] [address] [place] [address] Dr. Adryan Faustin Cystine [facility] Comment on above: Performed By: #### C ALCULI #### [facility] [address] [place] [address] Dr. Adryan Faustin Disclaimer: Comment Normal [facility] [facility] Comment on above: Result Comment: This test was developed and its performance characteristics determined by [facility]. It has not been cleared or approved by the Food and Drug Administration. Performed By: #### C ALCULI #### [facility] [address] [place] [address] Dr. Adryan Faustin Dried Blood Normal [facility] Comment on above: Performed By: #### C ALCULI #### [facility] [address] [place] [address] Dr. Adryan Faustin Drug or Metabolite Normal [facility] Comment on above: Performed By: #### C ALCULI #### [facility] [address] [place] [address] Dr. Adryan Faustin Hydroxyapatite Normal [facility] Comment on above: Performed By: #### C ALCULI #### [facility] [address] [place] [address] Dr. Adryan Faustin Mg NH4 PO4 (Struvite) Normal [facility] Comment on above: Performed By: #### C ALCULI #### [facility] [address] [place] [address] Dr. Adryan Faustin MgHPO4 (Newberyite) Normal [facility] Comment on above: Performed By: #### C ALCULI #### [facility] [address] [address] [address] Adryan Faustin Other component(s) Normal [facility] Comment on above: Performed By: #### C ALCULI #### [facility] [address] [address] [address] Adryan Faustin PDF . Normal [facility] Comment on above: Performed By: #### C ALCULI #### [facility] [address] [address] [address] Adryan Faustin Photo Comment [facility] Comment on above: Result Comment: Phot ograph will follow under a separate cover Performed By: #### C ALCULI #### [facility] [address] [address] [address] Adryan Faustin Please note: Comment Normal [facility] Comment on above: Result Comment: Calc gustavo report will follow via computer, mail or global account director delivery. Performed By: #### C ALCULI #### [facility] [address] [address] [address] Adryan Faustin Size 5x2 [facility] Comment on above: Result Comment: Mult iple pieces received. Dimensions of the largest piece reported. Performed By: #### C ALCULI #### [facility] [address] [address] [address] Adryan Faustin Sodium Acid Urate Normal [facility] Comment on above: Performed By: #### C ALCULI #### [facility] [address] [address] [address] Adryan Faustin Source Comment [facility] Comment on above: Result Comment: Left Ureter Performed By: #### C ALCULI #### [facility] [address] [address] [address] Adryan Faustin Triamterene [facility] Comment on above: Performed By: #### C ALCULI #### [facility] [address] [address] [address] Adryan Faustin Uric Acid [facility] Comment on above: Performed By: #### C ALCULI #### [facility] [address] [address] [address] Adryan Faustin Uric Acid Dihydrate Normal [facility] Comment on above: Performed By: #### C ALCULI #### [facility] [address] [address] [address] Adryan Faustin Weight 80 mg [facility] Comment on above: Performed By: #### C ALCULI #### [facility] [address] [address] [address] Adryan Faustin Xanthine [facility] Comment on above: Performed By: #### C ALCULI #### [facility] [address] [address] [address] Adryan Faustin RAD - CT Reporton 03-26-2022 RAD - CT Report [id number] .00CD:127 Normal [facility] RAD - MISCon 03-26-2022 RAD - MISC [id number] .00CD:127 Normal [facility] RAD - MISC [id number] .00CD:127 Normal [facility] RAD - MISC [id number] .[id number]:127 Normal [facility] CALCULI, URINARYon 2 2,8 Dihydroxyadenine [facility] Comment on above: Performed By: #### C ALCULI #### [facility] [address] [address] [address] Adryan Faustin Ammonium Acid Urate [facility] Comment on above: Performed By: #### C ALCULI #### [facility] [address] [address] [address] Adryan Faustin Bilirubin Ql (U) [facility] Comment on above: Performed By: #### C ALCULI #### [facility] [address] [address] [address] Adryan Faustin Ca Oxalate Dihydrate 20 % Normal [facility] Comment on above: Performed By: #### C ALCULI #### [facility] [address] [address] [address] Adryan Faustin CaHPO4 (Brushite) Normal [facility] Comment on above: Performed By: #### C ALCULI #### [facility] [address] [address] [address] Adryan Faustin Calcium Bilirubinate Normal [facility] Comment on above: Performed By: #### C ALCULI #### [facility] [address] [address] [address] Adryan Faustin Calcium Carbonate Normal [facility] Comment on above: Performed By: #### C ALCULI #### [facility] [address] [place] [address] Dr. Adryan Faustin Calcium Oxalate Monohydrate 80 % [facility] Comment on above: Performed By: #### C ALCULI #### [facility] [address] [address] [address] Adryan Faustin Calcium Palmitate Normal [facility] Comment on above: Performed By: #### C ALCULI #### [facility] [address] [address] [address] Adryan Faustin Calcium Phosphate Normal [facility] Comment on above: Performed By: #### C ALCULI #### [facility] [address] [address] [address] Adryan Faustin Calcium Stearate Normal [facility] Comment on above: Performed By: #### C ALCULI #### [facility] [address] [address] [address] Adryan Faustin Carbonate Apatite Normal [facility] Comment on above: Performed By: #### C ALCULI #### [facility] [address] [address] [address] Adryan Faustin Cellular Material Normal [facility] Comment on above: Performed By: #### C ALCULI #### [facility] [address] [address] [address] Adryan Faustin Cholesterol Normal [facility] Comment on above: Performed By: #### C ALCULI #### [facility] [address] [address] [address] Adryan Faustin Color (U) Brown Normal [facility] Comment on above: Performed By: #### C ALCULI #### [facility] [address] [address] [address] Adryan Faustin Comment Normal [facility] Comment on above: Performed By: #### C ALCULI #### [facility] [address] [address] [address] Adryan Faustin Comment: Comment Normal [facility] Comment on above: Result Comment: Alejandra sandoval questions regarding Calculi Analysis contact [employer] at: [phone]. Performed By: #### C ALCULI #### [facility] [address] [place] [address] Dr. Adryan Faustin Composition Comment [facility] Comment on above: Result Comment: Perc entage (Represents the % composition) Performed By: #### C ALCULI #### [facility] [address] [address] [address] Adrayn Faustin Cystine Normal [facility] Comment on above: Performed By: #### C ALCULI #### [facility] [address] [address] [address] Adryan Faustin Disclaimer: Comment [facility] Comment on above: Result Comment: This test was developed and its performance characteristics determined by [facility]. It has not been cleared or approved by the Food and Drug Administration. Performed By: #### C ALCULI #### [facility] [address] [address] [address] Adryan Faustin Dried Blood Normal [facility] Comment on above: Performed By: #### C ALCULI #### [facility] [address] [address] [address] Adryan Faustin Drug or Metabolite Normal [facility] Comment on above: Performed By: #### C ALCULI #### [facility] [address] [address] [address] Adryan Faustin Hydroxyapatite Normal [facility] Comment on above: Performed By: #### C ALCULI #### [facility] [address] [address] [address] Adryan Faustin Mg NH4 PO4 (Struvite) [facility] Comment on above: Performed By: #### C ALCULI #### [facility] [address] [address] [address] Adryan Faustin MgHPO4 (Newberyite) Normal [facility] Comment on above: Performed By: #### C ALCULI #### [facility] [address] [address] [address] Adryan Faustin Other component(s) Normal [facility] Comment on above: Performed By: #### C ALCULI #### [facility] [address] [address] [address] Adryan Faustin PDF . Normal [facility] Comment on above: Performed By: #### C ALCULI #### [facility] [address] [address] [address] Adryan Faustin Photo Comment [facility] Comment on above: Result Comment: Phot ograph will follow under a separate cover Performed By: #### C ALCULI #### [facility] [address] [address] [address] Adryan Faustin Please note: Comment [facility] Comment on above: Result Comment: Calc gustavo report will follow via computer, mail or global account director delivery. Performed By: #### C ALCULI #### [facility] [address] [address] [address] Adryan Faustin Size 2x2 [facility] Comment on above: Result Comment: Sing le piece received. Performed By: #### C ALCULI #### [facility] [address] [address] [address] Adryan Faustin Sodium Acid Urate [facility] Comment on above: Performed By: #### C ALCULI #### [facility] [address] [address] [address] Adryan Faustin Source Comment [facility] Comment on above: Result Comment: Yogesh mejia Ureter Performed By: #### C ALCULI #### [facility] [address] [place] [address] Dr. Adryan Faustin Triamterene [facility] Comment on above: Performed By: #### C ALCULI #### [facility] [address] [place] [address] Dr. Adryan Faustin Uric Acid [facility] Comment on above: Performed By: #### C ALCULI #### [facility] [address] [place] [address] Dr. Adryan Faustin Uric Acid Dihydrate [facility] Comment on above: Performed By: #### C ALCULI #### [facility] [address] [place] [address] Dr. Adryan Faustin Weight 13 mg [facility] Comment on above: Performed By: #### C ALCULI #### [facility] [address] [place] [address] Dr. Adryan Faustin Xanthine [facility] Comment on above: Performed By: #### C ALCULI #### [facility] [address] [place] [address] Dr. Adryan Faustin PROF 14(COMP METB)on 022 Albumin [Mass/Vol] 3.4 g/dL Normal 3.4-5.0 [facility] Comment on above: Performed By: #### C MP #### [facility] [address] [place] [address] Dr. Adryan Faustin Albumin/Globulin [Mass ratio] 1.0 {ratio} [facility] Comment on above: Performed By: #### C MP #### [facility] [address] [place] [address] Dr. Adryan Faustin ALP [Catalytic activity/Vol] 54 U/L Normal 46-116 [facility] Comment on above: Performed By: #### C MP #### [facility] [address] [place] [address] Dr. Adryan Faustin ALT [Catalytic activity/Vol] 13 U/L Critically low 14-59 [facility] Comment on above: Performed By: #### C MP #### [facility] [address] [address] [address] Adryan Faustin Anion gap [Moles/Vol] 12.5 mmol/L Normal [facility] Comment on above: Performed By: #### C MP #### [facility] [address] [address] [address] Adryan Faustin AST [Catalytic activity/Vol] 18 U/L Normal 15-37 [facility] Comment on above: Performed By: #### C MP #### [facility] [address] [address] [address] Adryan Faustin Bilirubin [Mass/Vol] 0.4 mg/dL Normal 0.2-1.0 [facility] Comment on above: Performed By: #### C MP #### [facility] [address] [address] [address] Adryan Faustin Calcium [Mass/Vol] 9.0 mg/dL Normal 8.5-10.1 [facility] Comment on above: Performed By: #### C MP #### [facility] [address] [address] [address] Adryan Faustin Chloride [Moles/Vol] 106 mmol/L Normal 98-107 [facility] Comment on above: Performed By: #### C MP #### [facility] [address] [address] [address] Adryan Faustin CO2 [Moles/Vol] 25.8 mmol/L Normal 21.0-32.0 [facility] Comment on above: Performed By: #### C MP #### [facility] [address] [address] [address] Adryan Faustin Creatinine [Mass/Vol] 1.43 mg/dL Critically high 0.55-1.02 [facility] Comment on above: Performed By: #### C MP #### [facility] [address] [address] [address] Adryan Faustin EGFR-AF LATVIAN 46 mL/min/1.73m2 Critically low >=60 [facility] Comment on above: Performed By: #### C MP #### [facility] [address] [address] [address] Adryan Faustin EGFR-NON AF LATVIAN 38 mL/min/1.73m2 Critically low >=60 [facility] Comment on above: Performed By: #### C MP #### [facility] [address] [address] [address] Adryan Faustin Globulin (S) [Mass/Vol] 3.3 g/dL Normal [facility] Comment on above: Performed By: #### C MP #### [facility] [address] [address] [address] Adryan Faustin Glucose [Mass/Vol] 83 mg/dL Normal 74-106 [facility] Comment on above: Performed By: #### C MP #### [facility] [address] [address] [address] Adryan Faustin Potassium [Moles/Vol] 4.3 mmol/L Normal 3.5-5.1 [facility] Comment on above: Performed By: #### C MP #### [facility] [address] [address] [address] Adryan Faustin Protein [Mass/Vol] 6.7 g/dL Normal 6.4-8.2 [facility] Comment on above: Performed By: #### C MP #### [facility] [address] [address] [address] Adryan Faustin Sodium [Moles/Vol] 140 mmol/L Normal 136-145 [facility] Comment on above: Performed By: #### C MP #### [facility] [address] [address] [address] Adryan Faustin Urea nitrogen [Mass/Vol] 12.0 mg/dL Normal 7.0-18.0 [facility] Comment on above: Performed By: #### C MP #### [facility] [address] [address] [address] Adryan Faustin Urea nitrogen/Creatinine [Mass ratio] 8.4 mg/mg Normal [facility] Comment on above: Performed By: #### C MP #### [facility] [address] [place] [address] Dr. Adryan Faustin XR KUB 1 VIEWon [...] by: BRADEN LANGSTON Date: 2022-03-23 07:14 Normal [facility] Consultation Noteon 03-20-20 Consultation Note [id number] .[id number]:127 Normal [facility] PROF CHEM 8 (BAS METB)on Anion gap [Moles/Vol] 11.1 mmol/L Normal [facility] Comment on above: Performed By: #### B MP #### [facility] [address] [place] [address] Dr. Adryan Faustin Calcium [Mass/Vol] 8.3 mg/dL Critically low 8.5-10.1 [facility] Comment on above: Performed By: #### B MP #### [facility] [address] [place] [address] Dr. Adryan Faustin Chloride [Moles/Vol] 112 mmol/L Critically high 98-107 [facility] Comment on above: Performed By: #### B MP #### [facility] [address] [place] [address] Dr. Adryan Faustin CO2 [Moles/Vol] 22.8 mmol/L Normal 21.0-32.0 [facility] Comment on above: Performed By: #### B MP #### [facility] [address] [place] [address] Dr. Adryan Faustin Creatinine [Mass/Vol] 1.41 mg/dL Critically high 0.55-1.02 [facility] Comment on above: Performed By: #### B MP #### [facility] [address] [address] [address] Adryan Faustin EGFR-AF LATVIAN 47 mL/min/1.73m2 Critically low >=60 [facility] Comment on above: Performed By: #### B MP #### [facility] [address] [address] [address] Adryan Faustin EGFR-NON AF LATVIAN 38 mL/min/1.73m2 Critically low >=60 [facility] Comment on above: Performed By: #### B MP #### [facility] [address] [address] [address] Adryan Faustin Glucose [Mass/Vol] 82 mg/dL Normal 74-106 [facility] Comment on above: Performed By: #### B MP #### [facility] [address] [address] [address] Adryan Faustin Potassium [Moles/Vol] 4.9 mmol/L Normal 3.5-5.1 [facility] Comment on above: Performed By: #### B MP #### [facility] [address] [address] [address] Adryan Faustin Sodium [Moles/Vol] 141 mmol/L Normal 136-145 [facility] Comment on above: Performed By: #### B MP #### [facility] [address] [address] [address] Adryan Faustin Urea nitrogen [Mass/Vol] 25.0 mg/dL Critically high 7.0-18.0 [facility] Comment on above: Performed By: #### B MP #### [facility] [address] [address] [address] Adryan Faustin Urea nitrogen/Creatinine [Mass ratio] 17.7 mg/mg Normal [facility] Comment on above: Performed By: #### B MP #### [facility] [address] [address] [address] Adryan Faustin CBC AUTO DIFFon 03-19-2022 BASO # 0.1 103/ul Normal 0.0-0.1 [facility] Comment on above: Performed By: #### C BC #### [facility] [address] [address] [address] Adryan Faustin Basophils/100 WBC (Bld) 0.9 % Normal 0.2-2.0 [facility] Comment on above: Performed By: #### C BC #### [facility] [address] [address] [address] Adryan Faustin EO # 0.1 103/ul Normal 0.0-0.7 [facility] Comment on above: Performed By: #### C BC #### [facility] [address] [address] [address] Adryan Faustin Eosinophils/100 WBC (Bld) 2.3 % Normal 0.9-7.0 [facility] Comment on above: Performed By: #### C BC #### [facility] [address] [place] [address] Dr. Adryan Faustin Erythrocyte distribution width (RBC) [Ratio] 15.9 % Critically high 11.0-15.0 [facility] Comment on above: Performed By: #### C BC #### [facility] [address] [place] [address] Dr. Adryan Faustin Hematocrit (Bld) [Volume fraction] 36.9 % Normal 36.0-48.0 [facility] Comment on above: Performed By: #### C BC #### [facility] [address] [place] [address] Dr. Adryan Faustin Hemoglobin (Bld) [Mass/Vol] 11.3 g/dL Critically low 12.0-16.0 [facility] Comment on above: Performed By: #### C BC #### [facility] [address] [place] [address] Dr. Adryan Faustin IG # 0.01 10e3/ul Normal 0.00-0.03 [facility] Comment on above: Performed By: #### C BC #### [facility] [address] [place] [address] Dr. Adryan Faustin IG % 0.2 % Normal 0.0-0.5 [facility] Comment on above: Performed By: #### C BC #### [facility] [address] [address] [address] Adryan Faustin LYMPH # 1.7 103/ul Normal 1.2-3.8 [facility] Comment on above: Performed By: #### C BC #### [facility] [address] [place] [address] Dr. Adryan Faustin Lymphocytes/100 WBC (Bld) 29.6 % Normal 20.5-60.0 [facility] Comment on above: Performed By: #### C BC #### [facility] [address] [place] [address] Dr. Adryan Faustin MANUAL DIFF REQ NO Normal [facility] Comment on above: Performed By: #### C BC #### [facility] [address] [place] [address] Dr. Adryan Faustin MCH (RBC) [Entitic mass] 24.1 pg Critically low 26.7-34.0 [facility] Comment on above: Performed By: #### C BC #### [facility] [address] [place] [address] Dr. Adryan Faustin MCHC (RBC) [Mass/Vol] 30.6 g/dL Normal 29.9-35.2 [facility] Comment on above: Performed By: #### C BC #### [facility] [address] [place] [address] Dr. Adryan Faustin MCV (RBC) [Entitic vol] 78.8 fL Critically low 81.0-99.0 [facility] Comment on above: Performed By: #### C BC #### [facility] [address] [place] [address] Dr. Adryan Faustin MONO # 0.4 103/ul Normal 0.3-0.8 [facility] Comment on above: Performed By: #### C BC #### [facility] [address] [place] [address] Dr. Adryan Faustin Monocytes/100 WBC (Bld) 7.5 % Normal 1.7-12.0 [facility] [facility] Comment on above: Performed By: #### C BC #### [facility] [address] [place], [place] [id number] Dr. Adryan Faustin NEUT # 3.3 103/ul Normal 1.4-6.5 [facility] Comment on above: Performed By: #### C BC #### [facility] [address] [place] [address] Dr. Adryan Faustin Neutrophils/100 WBC (Bld) 59.5 % Normal 43.0-75.0 [facility] Comment on above: Performed By: #### C BC #### [facility] [address] [place] [address] Dr. Adryan Faustin Platelet mean volume (Bld) [Entitic vol] 8.5 fL Critically low 9.5-13.5 [facility] Comment on above: Performed By: #### C BC #### [facility] [address] [place] [address] Dr. Adryan Faustin PLT 320 103/ul Normal 150-450 [facility] Comment on above: Performed By: #### C BC #### [facility] [address] [place] [address] Dr. Adryan Faustin RBC 4.68 106/ul Normal 4.20-5.40 [facility] Comment on above: Performed By: #### C BC #### [facility] [address] [place] [address] Dr. Adryan Faustin WBC 5.6 103/ul Normal 4.0-11.0 [facility] Comment on above: Performed By: #### C BC #### [facility] [address] [place] [address] ABD/PELVIS WO CONon [...] NATACHA WILD Date: 2022-03-19 09:58 Normal [facility] CULTURE URINEon 03-19-2022 CULTURE URINE Culture Observations : NO GROWTH Normal [facility] Comment on above: Performed By: #### C ALCULI #### [facility] [address] [address] [address] Adryan Faustin Covid-19 PCR ([facility])on 02-22 SARS-CoV-2 (COVID-19) RNA GOOD+probe Ql (Unsp spec) Not detected Normal NOT DETECTED [facility] Comment on above: Result Comment: When diagnostic [...] for this test is supported by the [place] of [employer] and Human Service's declaration that [...] no longer be used). Performed By: #### C ALCULI #### [facility] [address] [place] [address] Dr. Adryan Faustin ER URINE PROFILEon 2 Bilirubin Ql (U) MODERATE Abnormal NEGATIVE The [facility] Comment on above: Performed By: #### E IZABELLAR UMICRO #### [facility] [address] [place] [address] Dr. Adryan Faustin Clarity (U) CLEAR Normal CLEAR [facility] Comment on above: Performed By: #### E RUR UMICRO #### [facility] [address] [place] [address] Dr. Adryan Faustin Color (U) DK. YELLOW Normal YELLOW [facility] Comment on above: Performed By: #### E MO UMICRO #### [facility] [address] [place] [address] Dr. Adryan Faustin ERUSHIRLENED A micrscopic examination will be performed if indicated. Normal [facility] Comment on above: Performed By: #### E RUR, UMICRO #### [facility] [address] [place] [address] Dr. Adryan Faustin Glucose Ql (U) Negative Normal NEGATIVE The [facility] Comment on above: Performed By: #### E RUR, UMICRO #### [facility] [address] [place] [address] Dr. Adryan Faustin Hemoglobin Ql (U) LARGE Abnormal NEGATIVE The [facility] Comment on above: Performed By: #### E IZABELLAR UMICRO #### [facility] [address] [place] [address] Dr. Adryan Faustin Ketones Ql (U) TRACE Abnormal NEGATIVE The [facility] Comment on above: Performed By: #### CHRISTINA MARTINRO #### [facility] [address] [place] [address] Dr. Adryan Faustin LEUKOCYTES TRACE Abnormal NEGATIVE [facility] Comment on above: Performed By: #### CHRISTINA MARTINRO #### [facility] [address] [place] [address] Dr. Adryan Faustin Nitrite Ql (U) Negative Normal NEGATIVE The [facility] Comment on above: Performed By: #### VERONICA MARTIN #### [facility] [address] [place] [address] Dr. Adryan Faustin pH (U) 5.5 [pH] Normal 5-9 [facility] Comment on above: Performed By: #### VERONICA MARTIN #### [facility] [address] [place] [address] Dr. Adryan Faustin Protein (U) [Mass/Vol] 100 mg/dL Abnormal NEGAT CRISS/ TRACE [facility] Comment on above: Performed By: #### VERONICA MARTIN #### [facility] [address] [place] [address] Dr. Adryan Faustin SPEC GRAVITY >=1.030 Abnormal 1.005-<=1.02 5 [facility] Comment on above: Performed By: #### CHRISTINA MARTINRO #### [facility] [address] [place] [address] Dr. Adryan Faustin UR MICRO IND INDICATED Normal [facility] Comment on above: Performed By: #### CHRISTINA MARTINRO #### [facility] [address] [place] [address] Dr. Adryan Faustin Urobilinogen Qn (U) 1.0 {Coby'U}/dL Normal 0.2 - 1. 0 [facility] Comment on above: Performed By: #### VERONICA MARTIN #### [facility] [address] [place] [address] Dr. Adryan Faustin PROF 14(COMP METB)on 022 Albumin [Mass/Vol] 3.7 g/dL Normal 3.4-5.0 [facility] Comment on above: Performed By: #### C MP #### [facility] [address] [place] [address] Dr. Adryan Faustin Albumin/Globulin [Mass ratio] 1.0 {ratio} Normal [facility] Comment on above: Performed By: #### C MP #### [facility] [address] [place] [address] Dr. Adryan Faustin ALP [Catalytic activity/Vol] 60 U/L Normal 46-116 [facility] Comment on above: Performed By: #### C MP #### [facility] [address] [place] [address] Dr. Adryan Faustin ALT [Catalytic activity/Vol] 17 U/L Normal 14-59 [facility] Comment on above: Performed By: #### C MP #### [facility] [address] [place] [address] Dr. Adryan Faustin Anion gap [Moles/Vol] 14.6 mmol/L Normal [facility] Comment on above: Performed By: #### C MP #### [facility] [address] [place] [address] Dr. Adryan Faustin AST [Catalytic activity/Vol] 18 U/L Normal 15-37 [facility] Comment on above: Performed By: #### C MP #### [facility] [address] [place] [address] Dr. Adryan Faustin Bilirubin [Mass/Vol] 0.5 mg/dL Normal 0.2-1.0 [facility] Comment on above: Performed By: #### C MP #### [facility] [address] [place] [address] Dr. Adryan Faustin Calcium [Mass/Vol] 9.2 mg/dL Normal 8.5-10.1 [facility] Comment on above: Performed By: #### C MP #### [facility] [address] [address] [address] Adryan Faustin Chloride [Moles/Vol] 105 mmol/L Normal 98-107 [facility] Comment on above: Performed By: #### C MP #### [facility] [address] [address] [address] Adryan Faustin CO2 [Moles/Vol] 24.1 mmol/L Normal 21.0-32.0 [facility] Comment on above: Performed By: #### C MP #### [facility] [address] [address] [address] Adryan Faustin Creatinine [Mass/Vol] 1.97 mg/dL Critically high 0.55-1.02 [facility] Comment on above: Performed By: #### C MP #### [facility] [address] [address] [address] Adryan Faustin EGFR-AF LATVIAN 32 mL/min/1.73m2 Critically low >=60 [facility] Comment on above: Performed By: #### C MP #### [facility] [address] [address] [address] Adryan Faustin EGFR-NON AF LATVIAN 26 mL/min/1.73m2 Critically low >=60 [facility] Comment on above: Performed By: #### C MP #### [facility] [address] [address] [address] Adryan Faustin Globulin (S) [Mass/Vol] 3.8 g/dL Normal [facility] Comment on above: Performed By: #### C MP #### [facility] [address] [address] [address] Adryan Faustin Glucose [Mass/Vol] 91 mg/dL Normal 74-106 [facility] Comment on above: Performed By: #### C MP #### [facility] [address] [address] [address] Adryan Faustin Potassium [Moles/Vol] 4.7 mmol/L Normal 3.5-5.1 [facility] Comment on above: Performed By: #### C MP #### [facility] [address] [address] [address] Adryan Faustin Protein [Mass/Vol] 7.5 g/dL Normal 6.4-8.2 [facility] Comment on above: Performed By: #### C MP #### [facility] [address] [place] [address] Dr. Adryan Faustin Sodium [Moles/Vol] 139 mmol/L Normal 136-145 [facility] Comment on above: Performed By: #### C MP #### [facility] [address] [place] [address] Dr. Adryan Faustin Urea nitrogen [Mass/Vol] 32.0 mg/dL Critically high 7.0-18.0 [facility] Comment on above: Performed By: #### C MP #### [facility] [address] [place] [address] Dr. Adryan Faustin Urea nitrogen/Creatinine [Mass ratio] 16.2 mg/mg Normal [facility] Comment on above: Performed By: #### C MP #### [facility] [address] [place] [address] Dr. Adryan Faustin URINE MICROSCOPIC ONLYon BACTERIA SMALL Abnormal NONE SEEN [facility] Comment on above: Performed By: #### CHRISTINA MARTINRO #### [facility] [address] [place] [address] Dr. Adryan Faustin Bacteria identified Cx Nom (U) INDICATED Normal [facility] Comment on above: Performed By: #### CHRISTINA MARTINRO #### [facility] [address] [place] [address] Dr. Adryan Faustin CAST NONE SEEN Normal NONE SEEN [facility] Comment on above: Performed By: #### Ghada HASSAN UMICRO #### [facility] [address] [place] [address] Dr. Adryan Faustin Crystals LM Nom (Urine sed) NONE SEEN Normal NONE SEEN [facility] Comment on above: Performed By: #### Ghada HASSAN UMICRO #### [facility] [address] [place] [address] Dr. Adryan Faustin Epithelial cells LM Ql (Urine sed) FEW Abnormal NONE SEEN /RARE [facility] Comment on above: Performed By: #### E RUR, UMICRO #### [facility] [address] [address] [address] Adryan Faustin MUCOUS NONE SEEN Normal NONE SEEN [facility] Comment on above: Performed By: #### E RUR, UMICRO #### [facility] [address] [address] [address] Adryan Faustin RBC 75-100 Abnormal 0-2 [facility] Comment on above: Performed By: #### E RUR, UMICRO #### [facility] [address] [address] [address] Adryan Faustin WBC 5-10 Abnormal NONE SEEN [facility] Comment on above: Performed By: #### E RUR, UMICRO #### [facility] [address] [place] [address] Dr. Adryan Faustin MICROALBUMIN/ CREATININE RAT IOon 02-04-2022 Albumin, Urine 21.0 ug/mL Normal Not Estab. The [facility] Comment on above: Performed By: #### M ALBCRL #### [facility] [address] [address] [address] Adryan Faustin Albumin/ Creatinine Ratio 18 mg/g creat Normal 0-29 [facility] Comment on above: Result Comment: Norm al: 0 - 29 Moderately increased: 30 - 300 Severely increased: >300 Performed By: #### M ALBCRL #### [facility] [address] [address] [address] Adryan Faustin Creatinine, Urine 116.4 mg/dL Normal Not Estab. [facility] Comment on above: Performed By: #### M ALBCRL #### [facility] [address] [address] [address] Adryan Faustin GLYCOHEMOGLOBIN A1Con 2021 ADA RECOMMENDATION SEE BELOW Normal [facility] Comment on above: Result Comment: ADA RECOMMENDED LIMIT 4.0 - 6.0 ADA THERAPEUTIC TARGET < 7.0 ACTION SUGGESTED > 7.0 Performed By: #### C ALCULI #### [facility] [address] [address] [address] Adryan Faustin Glucose [Mass/Vol] 128 mg/dL Normal [facility] Comment on above: Performed By: #### C ALCULI #### [facility] [address] [address] [address] Adryan Faustin HbA1c (Bld) [Mass fraction] 6.1 % Normal 4.5-6.2 [facility] Comment on above: Performed By: #### C ALCULI #### [facility] [address] [address] [address] Adryan Faustin LIPID PROFILEon 02-03-2022 CHOL-HDL RATIO NORM SEE BELOW Normal [facility] Comment on above: Result Comment: 3.3 - 4.4 LOW RISK 4.4 - 7.1 AVERAGE RISK 7.1 - 11.0 MODERATE RISK >11.0 HIGH RISK Performed By: #### L IPID, CMP #### [facility] [address] [place] [address] Dr. Adryan Faustin Cholesterol [Mass/Vol] 175 mg/dL Normal <=200 [facility] Comment on above: Performed By: #### L IPID, CMP #### [facility] [address] [address] [address] Adryan Faustin Cholesterol in HDL [Mass/Vol] 51 mg/dL Normal 40-60 [facility] Comment on above: Performed By: #### L IPID, CMP #### [facility] [address] [address] [address] Adryan Faustin Cholesterol in LDL [Mass/Vol] 113.6 mg/dL Normal [facility] Comment on above: Performed By: #### L IPID, CMP #### [facility] [address] [address] [address] Adryan Faustin Cholesterol.total/Chol esterol in HDL [Mass ratio] 3.4 {ratio} Normal [facility] Comment on above: Performed By: #### L IPID, CMP #### [facility] [address] [address] [address] Adryan Faustin HDL NORMAL > or = 60 mg/dl - LO W CARDIOVASCULAR RISK <40 mg/dl - HIGH CARDIOVASCULAR RISK Normal [facility] Comment on above: Performed By: #### L IPID, CMP #### [facility] [address] [place] [address] Dr. Adryan Faustin LDL CALC NORMAL SEE BELOW Normal [facility] Comment on above: Result Comment: <100 mg/dl OPTIMAL 100 - 129 mg/dl NEAR OR ABOVE OPTIMAL 130 - 159 mg/dl BORDERLINE HIGH 160 - 189 mg/dl HIGH >190 mg/dl VERY HIGH Performed By: #### L IPID, CMP #### [facility] [address] [address] [address] Adryan Faustin Triglyceride [Mass/Vol] 52 mg/dL Normal <=150 [facility] Comment on above: Performed By: #### L IPID, CMP #### [facility] [address] [place] [address] Dr. dAryan Faustin VLDL CALC 10.4 mg/dL Normal [facility] Comment on above: Performed By: #### L IPID, CMP #### [facility] [address] [place] [address] Dr. Adryan Faustin PROF 14(COMP METB)on 022 Albumin [Mass/Vol] 3.2 g/dL Critically low 3.4-5.0 [facility] Comment on above: Performed By: #### L IPID, CMP #### [facility] [address] [place] [address] Dr. Adryan Faustin Albumin/Globulin [Mass ratio] 0.9 {ratio} Normal [facility] Comment on above: Performed By: #### L IPID, CMP #### [facility] [address] [place] [address] Dr. Adryan Faustin ALP [Catalytic activity/Vol] 76 U/L Normal 46-116 [facility] Comment on above: Performed By: #### L IPID, CMP #### [facility] [address] [place] [address] Dr. Adryan Faustin ALT [Catalytic activity/Vol] 10 U/L Critically low 14-59 [facility] Comment on above: Performed By: #### L IPID, CMP #### [facility] [address] [address] [address] Adryan Faustin Anion gap [Moles/Vol] 12.2 mmol/L Normal [facility] Comment on above: Performed By: #### L IPID, CMP #### [facility] [address] [address] [address] Adryan Faustin AST [Catalytic activity/Vol] 15 U/L Normal 15-37 [facility] Comment on above: Performed By: #### L IPID, CMP #### [facility] [address] [address] [address] Adryan Faustin Bilirubin [Mass/Vol] 0.4 mg/dL Normal 0.2-1.0 [facility] Comment on above: Performed By: #### L IPID, CMP #### [facility] [address] [place] [address] Dr. Adryan Faustin Calcium [Mass/Vol] 9.0 mg/dL Normal 8.5-10.1 [facility] Comment on above: Performed By: #### L IPID, CMP #### [facility] [address] [address] [address] Adryan Faustin Chloride [Moles/Vol] 106 mmol/L Normal 98-107 [facility] Comment on above: Performed By: #### L IPID, CMP #### [facility] [address] [address] [address] Adryan Faustin CO2 [Moles/Vol] 27.6 mmol/L Normal 21.0-32.0 [facility] Comment on above: Performed By: #### L IPID, CMP #### [facility] [address] [address] [address] Adryan Faustin Creatinine [Mass/Vol] 1.17 mg/dL Critically high 0.55-1.02 [facility] Comment on above: Performed By: #### L IPID, CMP #### [facility] [address] [address] [address] Adryan Faustin EGFR-AF LATVIAN 58 mL/min/1.73m2 Critically low >=60 [facility] Comment on above: Performed By: #### L IPID, CMP #### [facility] [address] [address] [address] Adryan Faustin EGFR-NON AF LATVIAN 48 mL/min/1.73m2 Critically low >=60 [facility] Comment on above: Performed By: #### L IPID, CMP #### [facility] [address] [address] [address] Adryan Faustin Globulin (S) [Mass/Vol] 3.7 g/dL Normal [facility] Comment on above: Performed By: #### L IPID, CMP #### [facility] [address] [address] [address] Adryan Faustin Glucose [Mass/Vol] 86 mg/dL Normal 74-106 [facility] Comment on above: Performed By: #### L IPID, CMP #### [facility] [address] [place] [address] Dr. Adryan Faustin Potassium [Moles/Vol] 4.8 mmol/L Normal 3.5-5.1 [facility] Comment on above: Performed By: #### L IPID, CMP #### [facility] [address] [place] [address] Dr. Adryan Faustin Protein [Mass/Vol] 6.9 g/dL Normal 6.4-8.2 [facility] Comment on above: Performed By: #### L IPID, CMP #### [facility] [address] [place] [address] Dr. Adryan Faustin Sodium [Moles/Vol] 141 mmol/L Normal 136-145 [facility] Comment on above: Performed By: #### L IPID, CMP #### [facility] [address] [address] [address] Adryan Faustin Urea nitrogen [Mass/Vol] 13.0 mg/dL Normal 7.0-18.0 [facility] Comment on above: Performed By: #### L IPID, CMP #### [facility] [address] [address] [address] Adryan Faustin Urea nitrogen/Creatinine [Mass ratio] 11.1 mg/mg Normal [facility] Comment on above: Performed By: #### L IPID, [facility] #### [facility] [address] [address] [address] Adryan Faustin US JUMANA DOP LEG [...] by: NATACHA WILD Date: 2022-02-02 11:46 Normal [facility] [id number] 07-25-2020 SARS-CoV-2 Not Detected Normal [facility] Comment on above: Result Comment: The [...] this assay. Fact sheet for Healthcare Providers: https://www.fda.gov/media/690628/download Fact sheet for Patients: https://www.fda.gov/media/873519/download METHODOLOGY: RT-PCR Performed By: #### A COV #### [facility] [address] [place] [address] [employer] Shifter: Hugo Welch MD SARS-CoV-2 [facility] Comment on above: Performed By: #### A COV #### [facility] [address] [place] [address] [employer] Shifter: Hugo Welch MD [id number] 07-24-2020 SARS-CoV-2 Source .NASOPHARYNGEAL SWAB [facility] Comment on above: Performed By: #### A COV #### [facility] [address] [place] [address] [employer] Shifter: Hugo Welch MD [id number] 07-18-2020 SARS-CoV-2 Not Detected [facility] Comment on above: Result Comment: The [...] this assay. Fact sheet for Healthcare Providers: https://www.fda.gov/media/114165/download Fact sheet for Patients: https://www.fda.gov/media/999243/download METHODOLOGY: RT-PCR Performed By: #### C OVID #### [address] [address] [employer]: Ankush Moser MD SARS-CoV-2 [facility] Comment on above: Performed By: #### C OVID #### [id number] [place], [place] [id number] [employer] Sh[employer]: Ankush Moser MD [id number] 07-17-2020 SARS-CoV-2 Source .NASOPHARYNGEAL SWAB Normal [facility] Comment on above: Performed By: #### C OVID #### [address] [id number] [employer]: Ankush Moser MD [id number] 07-01-2020 SARS-CoV-2 Not Detected Normal [facility] Comment on above: Result Comment: The specimen is NEGATIVE for SARS-CoV-2, the novel coronavirus associated with COVID-19. A negative result does not rule out COVID-19. Te[employer] SARS-CoV-2 for use on the [id number] is a real-time RT-PCR test intended [...] this assay. Fact sheet for Healthcare Providers: https://www.fda.gov/media/469513/download Fact sheet for Patients: https://www.fda.gov/media/263846/download METHODOLOGY: RT-PCR Performed By: #### C OVID #### [address] [id number] [facility] Shifter: Ankush Moser MD SARS-CoV-2 [facility] Comment on above: Performed By: #### C OVID #### [address] [place] [address] Mine Shifter: Ankush Moser MD SARS-CoV-2,[facility] Comment on above: Performed By: #### C OVID #### [address] [id number] Mine Shifter: Ankush Moser MD [id number] 06-29-2020 SARS-CoV-2 Source .NASOPHARYNGEAL SWAB [facility] Comment on above: Performed By: #### C OVID #### [address] [address] Mine Shifter: MD TOYIN Coronado-CoV-2on 06-16-2020 SARS-CoV-2 [facility] Comment on above: Performed By: #### C OVID #### [address] [address] Mine Shifter: Ankush Moser MD SARS-CoV-2 Not Detected [facility] Comment on above: Result Comment: The specimen is NEGATIVE for SARS-CoV-2, the novel coronavirus associated with COVID-19. A negative result does not rule out COVID-19. Teodoro SARS-CoV-2 for use on the Teodoro [employer]MDMgroup0/8800 Systems is a real-time RT-PCR test intended [...] this assay. Fact sheet for Healthcare Providers: https://www.fda.gov/media/437021/download Fact sheet for Patients: https://www.fda.gov/media/738888/download METHODOLOGY: RT-PCR Performed By: #### C OVID #### [address] [place], [place] [id number] Mine Shifter: Ankush Moser MD SARS-CoV-2,Rapid Normal [facility] Comment on above: Performed By: #### C OVID #### [facility] [address] [place] [address] [id number] Mine Shifter: Ankush Moser MD [id number] 06-14-2020 SARS-CoV-2 Source .NASOPHARYNGEAL SWAB Normal [facility] Comment on above: Performed By: #### C OVID #### [address] [id number] Mine Shifter: Ankush Moser MD [id number] 06-02-2020 SARS-CoV-2 Not Detected Normal Not Detected [facility] Comment on above: Result Comment: (NOT E) This nucleic acid amplification test was developed and its performance characteristics determined by [employer]. Nucleic acid amplification tests include PCR and [...] detected) result in this assay. Performed At: [address] [address] [place], [place] [id number] Camryn Nieto MD Ph:[phone] Performed By: #### A COV #### [facility] [address] [place] [address] Mine Shifter: Hugo Welch MD [id number] 05-25-2020 SARS-CoV-2 Not Detected Normal Not Detected [facility] Comment on above: Result Comment: (NOT E) This nucleic acid amplification test was developed and its performance characteristics determined by [employer]. Nucleic acid amplification tests include PCR and [...] detected) result in this assay. Performed At: [facility] [address] [place], [place] [id number] Camryn Nieto MD Ph:[phone] Performed By: #### A COV #### [facility] [address] [place] [address] Mine Shifter: Hugo Welch MD [id number] 05-10-2020 SARS-CoV-2 Not Detected Normal Not Detected [facility] Comment on above: Result Comment: (NOT E) This nucleic acid amplification test was developed and its performance characteristics determined by [employer]. Nucleic acid amplification tests include PCR and [...] detected) result in this assay. Performed At: [facility] [address] [facility] [place] [id number] Camryn Nieto MD Ph:[phone] Performed By: #### A COV #### [facility] [address] [place] [address] Mine Shifter: Hugo Welch MD [id number] 05-04-2020 SARS-CoV-2 Not Detected Normal Not Detected [facility] Comment on above: Result Comment: (NOT E) This nucleic acid amplification test was developed and its performance characteristics determined by [employer]. Nucleic acid amplification tests include PCR and [...] detected) result in this assay. Performed At: [facility] [address] [place], [place] [id number] Jefry Shirley PhD Ph:[phone] Performed By: #### A COV #### [facility] [address] [place] [address] Mine Shifter: Hugo Welch MD [id number] 04-13-2020 SARS-CoV-2 Not Detected Normal Not Detected [facility] Comment on above: Result Comment: (NOT E) This nucleic acid amplification test was developed and its performance characteristics determined by [employer]. Nucleic acid amplification tests include PCR and [...] detected) result in this assay. Performed At: [facility] [address] [facility] [place] [id number] Camryn Nieto MD Ph:[phone] Performed By: #### A COV #### [facility] [address] [place] [address] Mine Shifter: Hugo Welch MD [id number] 03-16-2020 SARS-CoV-2 Not Detected Normal Not Detected [facility] Comment on above: Result Comment: (NOT E) This nucleic acid amplification test was developed and its performance characteristics determined by [employer]. Nucleic acid amplification tests include PCR and [...] detected) result in this assay. Performed At: [facility] [address] [place], [place] [id number] [facility] Ph:[phone] Performed By: #### A COV #### [facility] [address] [place], [place] [id number] Mine Shifter: Hugo Welch MD [id number] 03-05-2020 SARS-CoV-2 Not Detected Normal Not Detected [facility] Comment on above: Result Comment: (NOT E) This nucleic acid amplification test was developed and its performance characteristics determined by [employer]. Nucleic acid amplification tests include PCR and [...] detected) result in this assay. Performed At: [facility] [address] [facility] [place] [id number] Camryn Nieto MD Ph:[phone] Performed By: #### A COV #### [facility] [address] [place] [address] Mine Shifter: Hugo Welch MD Vital Signs Date Time Vital Sign Value Performing Clinician Facility 06-21-2023 10:55-0500 Body height 160 cm Justin Marley MD Work Phone: [facility] 06-21-2023 10:55-0500 Body mass index (BMI) [Ratio] 22.67 kg/m2 Justin Marley MD Work Phone: [facility] 06-21-2023 10:55-0500 Body weight 58.06 kg Justin Marley MD Work Phone: [facility] 06-21-2023 10:55-0500 Diastolic blood pressure 74 mm[Hg] Justin Marley MD Work Phone: [facility] 06-21-2023 10:55-0500 Heart rate 82 /min Justin Marley MD Work Phone: [facility] 06-21-2023 10:55-0500 SaO2% (BldA) [Mass fraction] 96 % Justin Marley MD Work Phone: [facility] 06-21-2023 10:55-0500 Systolic blood pressure 126 mm[Hg] Justin Marley MD Work Phone: [facility] 09-28-2022 13:04-0400 Body height 160 cm Marley RODGERS-C Work Phone: [facility] 09-28-2022 13:04-0400 Body weight 60.78 kg Marley Brown PA-C Work Phone: [facility] 09-28-2022 13:04-0400 Diastolic blood pressure 79 mm[Hg] Marley O Larisa PA-C Work Phone: [facility] 09-28-2022 13:04-0400 Heart rate 75 /min Marley O Larisa PA-C Work Phone: [facility] 09-28-2022 13:04-0400 Systolic blood pressure 119 mm[Hg] Marley O Larisa PA-C Work Phone: [facility] 09-07-2022 08:55-0400 Body weight 60.78 kg Marley O Larisa PA-C Work Phone: [facility] 09-07-2022 08:55-0400 Diastolic blood pressure 69 mm[Hg] Marley O Larisa PA-C Work Phone: [facility] 09-07-2022 08:55-0400 Heart rate 77 /min Marley O Larisa PA-C Work Phone: [facility] 09-07-2022 08:55-0400 Systolic blood pressure 103 mm[Hg] Marley O Larisa PA-C Work Phone: [facility] 07-14-2022 10:21-0500 Body height 157.9 cm Samy Odonnell MD Work Phone: [facility] 07-14-2022 10:21-0500 Body weight 62.32 kg Samy Odonnell MD Work Phone: [facility] 07-14-2022 10:21-0500 Diastolic blood pressure 80 mm[Hg] Samy Odonnell MD Work Phone: [facility] 07-14-2022 10:21-0500 Heart rate 84 /min Samy Odonnell MD Work Phone: [facility] 07-14-2022 10:21-0500 Systolic blood pressure 121 mm[Hg] Samy Odonnell MD Work Phone: [facility] 07-07-2022 09:14-0500 Blood Pressure Location Chalo KULWANT [facility] 07-07-2022 09:14-0500 Diastolic blood pressure 86 mm[Hg] Chalo COOK [facility] 07-07-2022 09:14-0500 Heart rate 76 /min Chalo COOK [facility] 07-07-2022 09:14-0500 Systolic blood pressure 115 mm[Hg] Chalo COOK [facility] 06-18-2022 13:16-0500 Heart rate 82 /min [...] 06-18-2022 12:25-0500 Respiratory rate 16 /min Chalo COOK [facility] 06-18-2022 12:25-0500 SaO2% [...] 06-18-2022 09:29-0500 Body temperature 97.7 [degF] Chalo COOK [facility] 06-18-2022 09:29-0500 Mean blood pressure 105 mm[Hg] Chalo COOK [facility] 06-11-2022 09:32-0500 Diastolic blood pressure 86 mm[Hg] Chalo COOK [facility] 06-11-2022 09:32-0500 Heart rate 79 /min Chalo COOK [facility] 06-11-2022 09:32-0500 Mean blood pressure 104 mm[Hg] Chalo COOK [facility] 06-11-2022 09:32-0500 Systolic blood pressure 138 mm[Hg] Chalo COOK [facility] 06-11-2022 09:32-0500 Heart rate 85 /min Chalo COOK [facility] 06-11-2022 09:32-0500 SaO2% (BldA) [Mass fraction] 98 % Chalo BLUM [facility] 06-11-2022 09:32-0500 Blood [...] pressure 80 mm[Hg] Balbina Napoles Work Phone: [facility] [employer] DO Work Phone: 05-05-2022 15:50-0500 Systolic blood pressure 98 mm[Hg] Balbina Napoles Work Phone: [facility] 250 DO Work Phone: 05-05-2022 15:49-0500 Body height 160.02 cm Balbina Napoles Work Phone: [facility] 250 DO Work Phone: 05-05-2022 15:49-0500 Body mass index (BMI) [Ratio] 26.22 kg/m2 Balbina Napoles Work Phone: [facility] 250 DO Work Phone: 05-05-2022 15:49-0500 Body surface area Derived from formula 1.7 m2 Balbina Napoles Work Phone: [facility] 250 DO Work Phone: 05-05-2022 15:49-0500 Body weight 67.13 kg Balbina Napoles Work Phone: [facility] 250 DO Work Phone: 05-05-2022 15:49-0500 Diastolic blood pressure 64 mm[Hg] Balbina Napoles Work Phone: [facility] 250 DO Work Phone: 05-05-2022 15:49-0500 Heart rate 128 /min Balbina Napoles Work Phone: [facility] 250 DO Work Phone: 05-05-2022 15:49-0500 Systolic blood pressure 92 mm[Hg] Balbina Napoles Work Phone: [facility] 250 DO Work Phone: 04-17-2022 07:26-0500 Diastolic blood pressure 72 mm[Hg] Chalo BLUM [facility] 04-17-2022 07:26-0500 Heart rate 86 /min Chalo BLUM [facility] 04-17-2022 07:26-0500 Mean blood pressure 85 mm[Hg] Chalo BLUM [facility] 04-17-2022 07:26-0500 Systolic blood pressure 109 mm[Hg] Chalo BLUM [facility] 04-17-2022 07:25-0500 Body temperature 98.42 [degF] Chalo BLUM [facility] 04-17-2022 07:25-0500 Diastolic blood pressure 68 mm[Hg] Chalo COOK [facility] 04-17-2022 07:25-0500 Heart rate 82 /min Chalo COOK [facility] 04-17-2022 07:25-0500 Mean blood pressure 82 mm[Hg] Chalo COOK [facility] 04-17-2022 07:25-0500 Respiratory rate 16 /min Chalo COOK [facility] 04-17-2022 07:25-0500 SaO2% (BldA) [Mass fraction] 96 % Chalo BLUM [facility] 04-17-2022 07:25-0500 Systolic blood pressure 111 mm[Hg] Chalo BLUM [facility] 03-31-2022 13:11-0500 Blood Pressure Location Chalo COOK [facility] 03-31-2022 13:11-0500 Diastolic blood pressure 87 mm[Hg] Chalo COOK [facility] 03-31-2022 13:11-0500 Heart rate 79 /min Chalo BLUM [facility] 03-31-2022 13:11-0500 Systolic blood pressure 125 mm[Hg] Chalo COOK [facility] 03-23-2022 17:30-0400 Body height 160.02 cm Balbina Napoles Other [employer] Other 03-23-2022 17:30-0400 Body mass index (BMI) [Ratio] 29.76 kg/m2 Balbina Napoles Other [facility] Other 03-23-2022 17:30-0400 Body temperature 98.1 [degF] Balbina Napoles Other [employer] Other 03-23-2022 17:30-0400 Body weight 76.2 kg Balbina Napoles Other [employer] Other 03-23-2022 17:30-0400 Diastolic blood pressure 88 mm[Hg] Balbina Napoles Other [employer] Other 03-23-2022 17:30-0400 Respiratory rate 18 /min Balbina Napoles Other [employer] Other 03-23-2022 17:30-0400 SaO2% (BldA) [Mass fraction] 98 % Balbina Napoles Other [facility] Other 03-23-2022 17:30-0400 Systolic blood pressure 127 mm[Hg] Balbina Napoles Other [facility] Other 02-02-2022 17:30-0400 Body height 160.02 cm Balbina Napoles Other [facility] Other 02-02-2022 17:30-0400 Body mass index (BMI) [Ratio] 32.06 kg/m2 Balbina Napoles Other [facility] Other 02-02-2022 17:30-0400 Body temperature 98.6 [degF] Balbina Napoles Other [employer] Other 02-02-2022 17:30-0400 Body weight 82.1 kg Balbina Napoles Other [facility] Other 02-02-2022 17:30-0400 Diastolic blood pressure 96 mm[Hg] Balbina Napoles Other [facility] Other 02-02-2022 17:30-0400 Respiratory rate 17 /min Balbina Napoles Other [facility] Other 02-02-2022 17:30-0400 SaO2% (BldA) [Mass fraction] 98 % Balbina Napoles Other [facility] Other 02-02-2022 17:30-0400 Systolic blood pressure 152 mm[Hg] Balbina Napoles Other [employer] Other Encounters Encounter Date Encounter Type Care Provider Facility Start: 06-21-2023 End: 06-21-2023 ambulatory JUSTIN MARLEY Not Available Start: 06-21-2023 End: 06-21-2023 Office outpatient visit 25 minutes Justin Marley MD Work Phone: [facility] Comment on above: 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); Stage 3b chronic kidney disease (HCC) (CMS/HCC); Bilateral edema of lower extremity; Abdominal bloating; Weight gain, abnormal; Other iron deficiency anemia; Malabsorption of iron (CMS/HCC) Start: 06-16-2023 End: 06-16-2023 ambulatory JUSTIN MARLEY Not Available Start: 06-08-2023 End: 06-08-2023 ambulatory JUSTIN MARLEY Not Available Start: 04-26-2023 End: 04-26-2023 ambulatory SAMY ODONNELL Facility:[facility] Start: 04-26-2023 End: 04-26-2023 Subsequent hospital visit by physician Us Tam A21 5 Work Phone: Radiology Comment on above: Nephrolithiasis [N20 .0] Start: 10-21-2022 End: 10-22-2022 ambulatory SAMY ODONNELL Facility:[facility] Start: 10-21-2022 End: 10-21-2022 Patient encounter procedure Samy Odonnell MD Work Phone: Urology Comment on above: Nephrolithiasis (Evette raúl Dx); Hyperoxaluria; Hypernatriuria; Hypocitraturia; Low urine output Start: 10-20-2022 Orders Only Samy Odonnell MD Work Phone: Urology Start: 10-12-2022 End: 10-12-2022 ambulatory SAMY ODONNELL Facility:[facility] Start: 09-28-2022 End: 09-29-2022 ambulatory Marley O Larisa PA-C Work Phone: Urology Start: 09-28-2022 End: 09-28-2022 Patient encounter procedure Marley O Larisa PA-C Work Phone: Urology Comment on above: Preop examination (P rimary Dx); Nephrolithiasis Start: 09-28-2022 End: 09-28-2022 Preprocedural examination done Marley O Larisa PA-C Work Phone: Urology Start: 09-24-2022 Telephone encounter Teresita D[facility] Comment on above: Opened In Error Start: 09-21-2022 End: 09-21-2022 ambulatory MARLEY O'LARISA Facility:[facility] Start: 09-18-2022 Orders Only Samy Odonnell MD Work Phone: Urology Comment on above: Nephrolithiasis (Evette raúl Dx); Abnormal urinalysis Start: 09-16-2022 End: 09-17-2022 ambulatory SAMY ODONNELL Facility:[facility] Start: 09-16-2022 End: 09-16-2022 Patient encounter procedure Samy Odonnell MD Work Phone: Urology Comment on above: Nephrolithiasis (Evette raúl Dx) Start: 09-14-2022 Orders Only Samy Odonnell MD Work Phone: Urology Start: 09-07-2022 End: 09-08-2022 ambulatory Marley Brown PA-C Work Phone: Urology Start: 09-07-2022 Encounter for other preprocedural examination MARLEY MERCADOUE [facility] Start: 09-07-2022 End: 09-07-2022 Patient encounter procedure Marley Brown PA-C Work Phone: Urology Comment on above: Preop examination (P rimary Dx); Nephrolithiasis; Hypernatriuria; Hyperoxaluria; Hypocitraturia; Aciduria (HCC); Urine volume deficient; Elevated parathyroid hormone Start: 09-07-2022 End: 09-07-2022 Preprocedural examination done Marley Rojasue PA-C Work Phone: Urology Start: 09-01-2022 Orders Only Yasmeen Alexander MD Work Phone: Urology Start: 08-19-2022 Telephone encounter Marisa West RN U [facility] Comment on above: Returning Patient's Call Start: 08-18-2022 End: 08-18-2022 Orders Only Samy Odonnell MD Work Phone: Urology Comment on above: Nephrolithiasis (Evette raúl Dx) Start: 08-13-2022 Telephone encounter Marisa West RN U rology Comment on above: [employer] - O ther Start: 08-12-2022 ambulatory Samy Odonnell MD Work Phone: Urology Comment on above: Renal scan 07/30/22 Start: 08-12-2022 E-mail encounter fro m caregiver Samy Odonnell MD Work Phone: [facility] Start: 07-30-2022 ambulatory SAMY ODONNELL Facility:[facility] Start: 07-30-2022 End: 07-30-2022 Subsequent hospital visit by physician [facility] 3 Work Phone: [facility] Comment on above: Hydronephrosis with urinary obstruction [...] Start: 07-07-2022 End: 07-08-2022 ambulatory BALBINA NAPOLES Facility:[facility] Start: 07-07-2022 End: 07-07-2022 Patient encounter procedure Chalo BLUM [facility] Start: 07-06-2022 End: 07-06-2022 ambulatory Chalo Blum Facility:[facility] Start: 07-06-2022 End: 07-06-2022 ambulatory SENIOR SUPPLY CHAIN ANALYST-C Balbina Napoles Work Phone: [facility] Work Phone: Start: 07-06-2022 End: 07-06-2022 Patient encounter procedure SENIOR SUPPLY CHAIN ANALYST-C Balbina Napoles Work Phone: [facility] Work Phone: Start: 06-18-2022 End: 06-18-2022 ambulatory Chalo BLUM Facility:[facility] Start: 06-18-2022 End: 06-18-2022 Admission to same day surgery center Chalo BLUM [facility] Start: 06-11-2022 End: 06-12-2022 ambulatory Chalo BLUM Facility:[facility] Start: 06-11-2022 End: 06-11-2022 Patient encounter procedure Chalo BLUM [facility] Start: 05-07-2022 End: 05-07-2022 ambulatory Irina Mao Other [employer] Other Start: 05-07-2022 Telephone encounter Irina Cavanaugh [facility] Start: 05-05-2022 Office consultation new/estab patient 60 min Balbina Npaoles Work Phone: [facility] 250 DO Work Phone: Start: 04-17-2022 End: 04-18-2022 ambulatory Chalo BLUM Facility:[facility] Start: 04-17-2022 End: 04-17-2022 Patient encounter procedure Chalo BLUM [facility] Start: 04-01-2022 ambulatory Chalo BLUM Facility : [place] Start: 03-31-2022 End: 04-01-2022 ambulatory Chalo BLUM Facility:[facility] Start: 03-31-2022 End: 05-01-2022 Pre-admission assessment Chalo BLUM [facility] Start: 03-31-2022 End: 03-31-2022 Patient encounter procedure Chalo BLUM [facility] Start: 03-31-2022 End: 04-01-[address] CHALO BLUM Facility:[facility] Start: 03-24-2022 End: 03-25-2022 ambulatory BALBINA NAPOLES Facility:[facility] Start: 03-23-2022 End: 03-23-2022 ambulatory Balbina Napoles Other [employer] Other Start: 03-23-2022 Office outpatient vi sit 25 minutes Balbina Napoles [facility] Start: 03-21-2022 End: 03-22-[address] CHALO BLUM Facility:[facility] Start: 03-20-2022 ambulatory Chalo BLUM Facility:[facility] Start: 03-19-2022 End: 03-20-2022 ambulatory BALBINA NAPOLES Facility:[facility] Start: 02-16-2022 End: 02-17-[address] BRADEN LANGSTON Facility:[facility] Start: 02-03-2022 End: 02-04-2022 ambulatory BALBINA NAPOLES Facility:[facility] Start: 02-02-2022 Office outpatient vi sit 15 minutes Balbina Napoles [facility] [place] Start: 02-02-2022 End: 02-02-2022 ambulatory BALBINA NAPOLES [facility] Other Start: 12-24-2021 End: 12-24-2021 ambulatory Balbina Napoles Other [employer] Other Start: 12-24-2021 Telephone encounter Balbina mejia [facility] [place] Start: 07-24-2020 End: 07-25-2020 Patient encounter procedure JANICEROD MARTINEZ [facility] Start: 07-24-2020 End: 07-24-2020 Subsequent hospital visit by physician JOSEPH DUQUE DOCTOR Start: 07-17-2020 End: 07-18-2020 Patient encounter procedure JANICEGhada MARTINEZ [facility] Start: 07-17-2020 End: 07-17-2020 Subsequent hospital visit by physician JOSEPH DUQUE DOCTOR Start: 06-29-2020 End: 06-30-2020 Patient encounter procedure JANICEGhada MARTINEZ [facility] Start: 06-13-2020 End: 06-14-2020 Patient encounter procedure JANICEGhdaa MARTINEZ [facility] Start: 06-13-2020 End: 06-13-2020 Subsequent hospital visit by physician JOSEPH DUQUE DOCTOR Start: 05-30-2020 End: 05-31-2020 Patient encounter procedure JANICEGhada MARTINEZ [facility] Start: 05-30-2020 End: 05-30-2020 Subsequent hospital visit by physician JOSEPH MARTINEZ Start: 05-22-2020 End: 05-23-2020 Patient encounter procedure MARCELINO Amaya [facility] Start: 05-22-2020 End: 05-22-2020 Subsequent hospital visit by physician JOSEPH DUQUE DOCTOR Start: 05-09-2020 End: 05-10-2020 Patient encounter procedure JANICEROD MARTINEZ [facility] Start: 05-09-2020 End: 05-09-2020 Subsequent hospital visit by physician JOSEPH DUQUE DOCTOR Start: 05-02-2020 End: 05-03-2020 Patient encounter procedure MARCELINO MARTINEZ [facility] Start: 05-02-2020 End: 05-02-2020 Subsequent hospital visit by physician JOSEPH MARTINEZ Start: 04-25-2020 End: 04-26-2020 Patient encounter procedure JANIECROD MARTINEZ [facility] Start: 04-25-2020 End: 04-25-2020 Subsequent hospital visit by physician JOSEPH MARTINEZ Start: 04-10-2020 End: 04-11-2020 Patient encounter procedure MARCELINO MARTINEZ [facility] Start: 04-10-2020 End: 04-10-2020 Subsequent hospital visit by physician JOSEPH MARTINEZ Start: 03-12-2020 End: 03-13-2020 Patient encounter procedure JANICEROD MARTINEZ [facility] Start: 03-12-2020 End: 03-12-2020 Subsequent hospital visit by physician JOSEPH DUQUE DOCTOR Start: 03-01-2020 End: 03-02-2020 Patient encounter procedure JANICEROD MARTINEZ [facility] Start: 03-01-2020 End: 03-01-2020 Subsequent hospital visit by physician JOSEPH DUQUE DOCTOR Patient encounter status Wilder Napoles Work Phone: [place] [phone] DO Work Phone: Procedures Date Procedure Procedure Detail Performing Clinician Start: 06-22-2023 History of gastrointestinal tract bypass History of Prince-en-Y gastric bypass Justin Marley MD Work Phone: Start: 04-26-2023 Radiologic exam abdo men 3+ [...] Speci men Type: BLOOD SPECIMEN Ordering Facility: [facility] Address: [address] [place] [address] Performed By: #### T [id number] #### [facility] CLIA [id number] OF [place] Start: 07-06-2022 Diagnostic radiograp hy of abdomen SENIOR [employer]Y CHAIN ANALYST-C Balbina Napoles Work Phone: Start: 06-18-2022 Extracorporeal shock wave lithotripsy of calculus of kidney Chalo BLUM Start: 03-19-2022 Cystoscopy Chalo MORE Start: 05-09-2020 COVID-19 AMBULATORY DARBY S MARTINEZ Start: 05-02-2020 COVID-19 AMBULATORY DARBY S MARTINEZ Start: 04-25-2020 COVID-19 AMBULATORY DARBY S MARTINEZ Start: 04-10-2020 COVID-19 AMBULATORY DARBY S MARTINEZ Start: 03-01-2020 COVID-19 AMBULATORY DARBY S MARTINEZ Start: 06-05-2014 Mammography Justin hunter MD Work Phone: Bypass of stomach Chalo MORE Decompression of med corry nerve Balbina Napoles Work Phone: Esophagogastrostomy, antesternal or antethoracic Balbina Napoles Work Phone: Hysterectomy Chalo BLUM Insertion of stent i nto urethra Balbina Napoles Work Phone: NEGATED: Highlighted row has not occurred! Colonoscopy Balbina mejia Work Phone: Plan of Treatment Date Care Activity Detail Author Start: 09-28-2025 DIABETES SCREEN DIABETES SCREEN [facility] Start: 09-28-2025 Diabetes Screening Diabetes Screenin g [facility] Start: 07-14-2025 DIABETES SCREEN DIABETES SCREEN [facility] Start: 07-15-2023 End: 07-15-2023 Patient encounter procedure 07/15/2023 10:30 AM EST Office Visit [facility] [address] [place] [address] Justin Marley MD [address] [place] [address] [facility] Start: 07-14-2023 End: 09-13-2023 Calcium.ionized [Moles/volume] in Blood CALCIUM IONIZED BLOOD Lab Routine Hydronephrosis with urinary obstruction due to ureteral calculus Nephrolithiasis Left flank pain Left renal atrophy Expected: 07/14/2023, Expires: 09/13/2023 [facility] Work Phone: Comment on above: Expected: 07/14/2023 , Expires: 09/13/2023 Start: 01-22-2023 Covid-19 Vaccine () Covid-19 Vaccine () [facility] Start: 01-22-2023 Influenza vaccination C [facility] Start: 10-04-2022 Urine microalbumin profile DTaP,Tdap,Td Vaccine (2 - Td or Tdap) [facility] Start: 09-18-2022 End: 11-18-2022 Bacteria identified in Urine by Culture URINE CULTURE Microbiology Routine Nephrolithiasis Abnormal urinalysis Expected: 09/18/2022, Expires: 11/18/2022 [facility] Work Phone: Comment on above: Expected: 09/18/2022 , Expires: 11/18/2022 Start: 09-18-2022 End: 11-18-2022 Basic metabolic 2000 panel - Serum or Plasma BASIC METABOLIC PNL Lab Routine Nephrolithiasis Abnormal urinalysis Expected: 09/18/2022 (Approximate), Expires: 11/18/2022 [facility] Work Phone: Comment on above: Expected: 09/18/2022 (Approximate), Expires: 11/18/2022 Start: 09-18-2022 End: 11-18-2022 CBC W Auto Differential panel - Blood CBC + DIFF Lab Routine Nephrolithiasis Abnormal urinalysis Expected: 09/18/2022 (Approximate), Expires: 11/18/2022 [facility] Work Phone: Comment on above: Expected: 09/18/2022 (Approximate), Expires: 11/18/2022 Start: 08-18-2022 End: 10-18-2022 Bacteria identified in Urine by Culture URINE CULTURE Microbiology Routine Nephrolithiasis Expected: 08/18/2022, Expires: 10/18/2022 [facility] Work Phone: Comment on above: Expected: 08/18/2022 , Expires: 10/18/2022 Start: 08-17-2022 End: 10-17-2022 Urinalysis complete panel - Urine URINALYSIS, WITH MICROSCOPIC Lab Routine Nephrolithiasis Expected: 08/17/2022, Expires: 10/17/2022 [facility] Work Phone: Comment on above: Expected: 08/17/2022 , Expires: 10/17/2022 Start: 05-24-2022 DEPRESSION ASSESSMENT DEPRESSION ASS ESSMENT [facility] Start: 01-22-2022 Influenza vaccination INFLUENZA (#1) [facility] Start: 11-18-2021 COVID-19 VACCINE (5 - Booster for Moderna series) COVID-19 VACCINE (5 - Booster for Moderna series) [facility] Start: 01-23-2020 Influenza vaccination Flu vaccine (# 1) [place], [place] Start: 06-05-2015 Screening for malign ant neoplasm of breast Mammogram [facility] Start: 2014 Screening for malign ant neoplasm of breast Breast cancer screen [place], [place] Start: 2014 Screening for malign ant neoplasm of colon Colon cancer screen colonoscopy [place], [place] Start: 2014 Shingles Vaccine (1 of 2) Shingles Vaccine (1 of 2) [place] Start: 2014 SHINGRIX VACCINE (1 of 2) SHINGRIX VACCINE (1 of 2) [facility] Start: 2009 COLOGUARD (FIT-DNA) COLOGUARD (FIT-D NA) [facility] Start: 2009 Colonoscopy COLONOSCOPY [facility] Start: 2009 COLORECTAL CANCER SCREENING COLORECTAL CANCER SCREENING [facility] Start: [address] COLONOGRAPHY [facility] Start: 2009 DIABETES SCREEN DIABETES SCREEN [facility] Start: 2009 FECAL OCCULT BLOOD FECAL OCCULT BLOO D [facility] Start: 2009 Lipid 1996 panel - Serum or Plasma Lipid Screening [facility] Start: 2009 LIPID SCREEN LIPID SCREEN [facility] Start: [address] [facility] Start: 2004 Lipid panel Lipid screen [place], [place] Start: 2004 Mammography [facility] Start: 1994 HPV TESTING HPV TESTING [facility] Start: 1985 PAP TESTING PAP TESTING [facility] Start: 1985 Screening for malign ant neoplasm of cervix Cervical cancer screen [place], [place] Start: 11-16-1983 DTaP/Tdap/Td vaccine (1 - Tdap) DTaP/Tdap/Td vaccine (1 - Tdap) [place] Start: 11-16-1983 Urine microalbumin profile DTAP,TDAP,TD (1 - Tdap) [facility] Start: 1982 HEPATITIS C SCREENING HEPATITIS C SC REENING [facility] Start: 1982 HIV [address]CRE[address] HIV S[address] [facility] Start: 11-16-1979 HIV screening HIV screen [facility] [place] [place] Start: 1964 HEPATITIS B (1 of 3 - 3-dose series) HEPATITIS B (1 of 3 - 3-dose series) [facility] Start: 1964 Hepatitis B Vaccine (1 of 3 - 3-dose series) Hepatitis B Vaccine (1 of 3 - 3-dose series) [facility] Start: 1964 Hepatitis C screening Hepatitis C sc reen [place], [place] Start: 1964 Screening for malign ant neoplasm of colon [facility] Bacteria identified in Urine by Culture URINE CULTURE Microbiology Routine Abnormal urinalysis 07/14/2022 10:05 AM EST [facility] Work Phone: End: 06-13-2020 COVID-19 COVID-19 Lab Routine Once for 1 Occurrences starting 06/13/2020 until 06/13/2020 [place] Comment on above: Once for 1 Occurrenc es starting 06/13/2020 until 06/13/2020 COVID-19 [place], [place] End: 07-17-2020 COVID-19 COVID-19 Lab Routine Once for 1 Occurrences starting 07/17/2020 until 07/17/2020 [facility] Work Phone: Comment on above: Once for 1 Occurrenc es starting 07/17/2020 until 07/17/2020 End: 07-24-2020 COVID-19 COVID-19 Lab Routine Once for 1 Occurrences starting 07/24/2020 until 07/24/2020 [facility] Work Phone: Comment on above: Once for 1 Occurrenc es starting 07/24/2020 until 07/24/2020 End: 04-10-2020 Covid-19 Ambulatory Covid-19 Ambulatory Lab Routine Once for 1 Occurrences starting 04/10/2020 until 04/10/2020 [place] Comment on above: Once for 1 Occurrenc es starting 04/10/2020 until 04/10/2020 Covid-19 Ambulatory [place], [place] End: 04-25-2020 Covid-19 Ambulatory Covid-19 Ambulatory Lab Routine Once for 1 Occurrences starting 04/25/2020 until 04/25/2020 [facility], [place] Comment on above: Once for 1 Occurrenc es starting 04/25/2020 until 04/25/2020 End: 05-02-2020 Covid-19 Ambulatory Covid-19 Ambulatory Lab Routine Once for 1 Occurrences starting 05/02/2020 until 05/02/2020 [facility], [place] Comment on above: Once for 1 Occurrenc es starting 05/02/2020 until 05/02/2020 End: 05-09-2020 Covid-19 Ambulatory Covid-19 Ambulatory Lab Routine Once for 1 Occurrences starting 05/09/2020 until 05/09/2020 [facility], [place] Comment on above: Once for 1 Occurrenc es starting 05/09/2020 until 05/09/2020 End: 05-22-2020 Covid-19 Ambulatory Covid-19 Ambulatory Lab Routine Once for 1 Occurrences starting 05/22/2020 until 05/22/2020 [facility], [place] Comment on above: Once for 1 Occurrenc es starting 05/22/2020 until 05/22/2020 End: 03-01-2020 Covid-19 Ambulatory Covid-19 Ambulatory Lab Routine Once for 1 Occurrences starting 03/01/2020 until 03/01/2020 [facility], [place] Comment on above: Once for 1 Occurrenc es starting 03/01/2020 until 03/01/2020 End: 05-30-2020 Covid-19 Ambulatory Covid-19 Ambulatory Lab Routine Once for 1 Occurrences starting 05/30/2020 until 05/30/2020 [facility], [place] Comment on above: Once for 1 Occurrenc es starting 05/30/2020 until 05/30/2020 End: 08-13-2023 Kidney img morphology vascular flow 1 w/rx NM RENAL FLOW/FXN W PHARM Radiology Routine Hydronephrosis with urinary obstruction due to ureteral calculus 1 Occurrences starting 07/14/2022 until 08/13/2023 [facility] Work Phone: Comment on above: 1 Occurrences starti ng 07/14/2022 until 08/13/2023 End: 11-20-2023 Radiologic exam abdomen 3+ views XR ABDOMEN 3V KUB W/OBLIQUES Radiology Routine Nephrolithiasis 1 Occurrences starting 10/21/2022 until 11/20/2023 [facility] Work Phone: Comment on above: 1 Occurrences starti ng 10/21/2022 until 11/20/2023 REFER FOR ADMIT INTERVIEW REFER FOR ADMIT INTERVIEW Procedures Routine Nephrolithiasis Ordered: 08/18/2022 [facility] Work Phone: Comment on above: Ordered: 08/18/2022 URINALYSIS, REFLEX MICROSCOPIC URINALYSIS, REFLEX MICROSCOPIC Lab Routine Screening for genitourinary condition Ordered: 09/28/2022 [facility] Work Phone: Comment on above: Ordered: 09/28/2022 End: 11-20-2023 US KIDNEY/BLADDER US KIDNEY/BLADDER Radiology Routine Nephrolithiasis 1 Occurrences starting 10/21/2022 until 11/20/2023 [facility] Work Phone: Comment on above: 1 Occurrences starti ng 10/21/2022 until 11/20/2023 [facility] Immunizations Immunization Date Immunization Notes Care Provider [facility] 09-23-2021 SARS-CoV-2 (COVID-19 ) mRNA-1273 vaccine Chalo PubNub [facility] 04-23-2021 SARS-CoV-2 (COVID-19 ) mRNA-1273 vaccine ChaloFTL SOLAR [facility] 06-27-2020 SARS-CoV-2 (COVID-19 ) mRNA-1273 vaccine ChaloFTL SOLAR [facility] 05-30-2020 SARS-CoV-2 (COVID-19 ) mRNA-1273 vaccine ChaloFTL SOLAR [facility] 03-01-2019 influenza virus vaccine, unspecified formulation ChaloFTL SOLAR [facility] 03-01-2019 Seasonal, quadrivale nt, recombinant, injectable influenza vaccine, preservative free Justin Marley MD Work Phone: [facility] 10-04-2012 tetanus toxoid, redu porsha diphtheria toxoid, and acellular pertussis vaccine, adsorbed Chalo BLUM [facility] Payers Date Payer Category Payer Self-pay [id number] 2020 Unknown 1965 Unknown [id number] 2.16.8 40.1.660727.3.579.2.175 1964 Unknown [id number] 2.16.8 40.1.675185.3.579.2.175 1964 Unknown [id number] 2.16.8 40.1.205673.3.579.2.175 1964 Unknown [id number] 2.16.8 40.1.988086.3.579.2.175 1964 Unknown [id number] 2.16.8 40.1.670598.3.579.2.175 1964 Unknown [id number] 2.16.8 40.1.457432.3.579.2.175 1964 Unknown [id number] 2.16.8 40.1.666243.3.579.2.175 1964 Unknown [id number] 2.16.8 40.1.476057.3.579.2.175 1964 Unknown [id number] 2.16.8 40.1.817502.3.579.2.175 1964 Unknown [id number] 2.16.8 40.1.255817.3.579.2.175 1964 Unknown [id number] 2.16.8 40.1.526268.3.579.2.175 1964 Unknown [id number] 2.16.8 40.1.792146.3.579.2.175 1964 Unknown [id number] 2.16.84 0.1.203988.3.579.2.593 1964 Unknown [id number] 2.16.84 0.1.048232.3.579.2.593 1964 Unknown [id number] 2.16.84 0.1.779155.3.579.2.593 1964 Unknown [id number] 2.16.84 0.1.856645.3.579.2.593 1964 Unknown [id number] 2.16.84 0.1.086580.3.579.2.593 1964 Unknown [id number] 2.16.84 0.1.804098.3.579.2.593 1964 Unknown [id number] 2.16.84 0.1.484031.3.579.2.593 1964 Unknown [id number] 2.16.8 40.1.554727.3.579.2.727 1964 Unknown [id number] 2.16.8 40.1.163732.3.579.2.727 1964 Unknown [id number] 2.16.8 40.1.917623.3.579.2.727 1964 Unknown [id number] 2.16.8 40.1.301726.3.579.2.727 1964 Unknown [id number] 2.16.8 40.1.818119.3.579.2.727 1964 Unknown [id number] 2.16.8 40.1.479057.3.579.2.727 1964 Unknown [id number] 2.16.8 40.1.562257.3.579.2.727 1964 Unknown [id number] 2.16.8 40.1.897953.3.579.2.727 1964 Unknown [id number] 2.16.8 40.1.453842.3.579.2.727 1964 Unknown [id number] 2.16.84 0.1.274230.3.579.2.1259 1964 Unknown [id number] 2.16.84 0.1.981896.3.579.2.1259 1964 Unknown [id number] 2.16.84 0.1.638511.3.579.2.1259 1959 Unknown [id number] 1. 2.84[id number] Unknown [id number] 2.16.8 40.1.243126.3.579.2.531 Social History Date Type Detail Facility [facility] [place] Start: 1965 Sex Assigned At Not on file [place] Start: 09-28-2022 End: 06-21-2023 Sex Assigned At [facility] Start: 03-31-2022 End: 06-03-2023 Tobacco smoking status Never smoked tobacco (finding) [facility] Tobacco smoking status Never [facility] Start: 09-28-2022 End: 06-21-2023 No alcohol use No alcohol use [place] [address] DO Work Phone: Start: 1965 Sex Assigned At Female [facility] History of tobacco use Passive smoker [facility] Start: 07-14-2022 End: 06-03-2023 Tobacco use and exposure Smokeless tobacco non-user [facility] Start: 06-21-2023 Alcohol intake Ex-drinker (finding) [facility] Start: 06-07-2023 Alcohol Comment Caffeine intake ; chocolatre [facility] Start: 06-03-2023 Gender identity Identifies as female gender (finding) [facility] Start: 06-03-2023 Sexual orientation Heterosexual (finding) [facility] Medical Equipment Procedure Code Equipment Code Equipment Origin al Text Equipment Identifier Dates Stent Inlay Opti ma 7fr Taper [place] Green Polymer Phreecoat 24cm Ureteral - [id number] Start: 09-07-2022 Stent Inlay Opti ma 6fr Taper [place] Green Polymer Phreecoat 24cm Ureteral - [id number] Start: 10-12-2022 Functional Status Date Assessment Result Facility 07-07-2022 Functional Status N/A [facility] 06-11-2022 Functional Status No [facility] 04-17-2022 Functional Status No [facility] 03-31-2022 Functional Status N/A [facility] Clinical Notes 02-02-2022 to 06-21-2023 Justin Marley MD - 06/21/2023 11:00 AM Bony Carmichael RT(R) - 04/26/2023 3:30 PM Hanane Stewart RT(R) - 04/26/2023 2:30 PM Jenae Renteria RN - 10/21/2022 12:51 PM EDT Note Date & Type Note Facility 06-21-2023 History of Present illness Narrative Patient ID: Elizabeth Irvin is a 57 y.o. female who presents for: Edema Patient complains of edema in both ankles and feet and both lower legs. The edema has been mild. Onset of symptoms was several days ago, and patient reports symptoms have gradually improved since that time. The edema is present all day. The patient states the problem is new. The swelling has been aggravated by nothing. The swelling has been relieved by diuretics, support stockings. Associated factors include: diagnosis of heart failure. Cardiac risk factors include none. This is a short term follow-up for her acute systolic congestive heart failure. She was also supposed to get labs this morning which she lost track of and did not get yet. Overall she feels much improved. Review of Systems Constitutional: Negative for activity change and fatigue. Respiratory: Negative for cough, shortness of breath and wheezing. Cardiovascular: Negative for chest pain, palpitations and leg swelling. Neurological: Negative for light-headedness and headaches. Objective The patient is pleasant and in no acute distress. The anterior cervical lymphatics demonstrates shoddy bilateral nontender lymphadenopathy. There is no supraclavicular lymphadenopathy. The heart is regular rate and rhythm without S3, S4. No murmur. The patient has normal respiratory pattern. The breath sounds are symmetrical without evidence of wheezing, rhonchi, or rales. The chest is normal shape. The skin is warm and dry. The lower extremities have trace to 1+ edema, And are much improved over the previous visit [facility] Result Encounter on 06/21/2023 Component Date Value Ref Range Status [facility] HGB 06/21/2023 8.7 (L) 12.0 - 16.0 g/dL Final [facility] IRON 06/21/2023 23.0 (L) 50.0 - 170.0 ug/dL Final [facility] TOTAL IRON BINDING CAPACITY 06/21/2023 348.0 250.0 - 450.0 ug/dL Final [facility] PERCENT IRON SATURATION 06/21/2023 6.6 % Final SODIUM 06/21/2023 142 136 - 145 mmol/L Final POTASSIUM 06/21/2023 4.0 3.5 - 5.1 mmol/L Final CHLORIDE 06/21/2023 103 98 - 107 mmol/L Final CARBON DIOXIDE 06/21/2023 31.0 21.0 - 32.0 mmol/L Final ANION GAP 06/21/2023 12.0 Final GLUCOSE 06/21/2023 89 74 - 106 mg/dL Final BLOOD UREA NITROGEN 06/21/2023 24.0 (H) 7.0 - 18.0 mg/dL Final CREATININE 06/21/2023 1.61 (H) 0.55 - 1.02 mg/dL Final [facility] EGFR-AF LATVIAN 06/21/2023 40 (L) >=60 Final [facility] EGFR-NON AF LATVIAN 06/21/2023 33 (L) >=60 Final BUN CREATININE RATIO 06/21/2023 14.9 Final CALCIUM 06/21/2023 8.4 (L) 8.5 - 10.1 mg/dL Final NT PRO B TYPE NATRIURETIC PEPT 06/21/2023 862.0 <=900.0 pg/mL Final [facility] Result Encounter on 06/16/2023 Component Date Value Ref Range Status SODIUM 06/16/2023 141 136 - 145 mmol/L Final POTASSIUM 06/16/2023 4.5 3.5 - 5.1 mmol/L Final CHLORIDE 06/16/2023 110 (H) 98 - 107 mmol/L Final CARBON DIOXIDE 06/16/2023 25.4 21.0 - 32.0 mmol/L Final ANION GAP 06/16/2023 10.1 Final GLUCOSE 06/16/2023 77 74 - 106 mg/dL Final BLOOD UREA NITROGEN 06/16/2023 21.0 (H) 7.0 - 18.0 mg/dL Final CREATININE 06/16/2023 1.63 (H) 0.55 - 1.02 mg/dL Final TBH EGFR-AF LATVIAN 06/16/2023 39 (L) >=60 Final TBH EGFR-NON AF LATVIAN 06/16/2023 32 (L) >=60 Final BUN CREATININE RATIO 06/16/2023 12.9 Final CALCIUM 06/16/2023 8.1 (L) 8.5 - 10.1 mg/dL Final BILIRUBIN TOTAL 06/16/2023 0.2 0.2 - 1.0 mg/dL Final ASPARTATE AMINO TRANSFERASE 06/16/2023 21 15 - 37 U/L Final ALANINE AMINOTRANSFERASE 06/16/2023 23 14 - 59 U/L Final ALKALINE PHOSPHATASE 06/16/2023 66 46 - 116 U/L Final TOTAL PROTEIN 06/16/2023 6.0 (L) 6.4 - 8.2 g/dL Final ALBUMIN LEVEL 06/16/2023 2.4 (L) 3.4 - 5.0 g/dL Final GLOBULIN 06/16/2023 3.6 g/dL Final ALBUMIN GLOBULIN RATIO 06/16/2023 0.7 Final NT PRO B TYPE NATRIURETIC PEPT 06/16/2023 1,858.0 (HH) <=900.0 pg/mL Final RESULTS CALLED TO [facility] WBC 06/16/2023 6.4 4.0 - 11.0 10 3/uL Final [facility] RBC 06/16/2023 3.08 (L) 4.20 - 5.40 10 6/uL Final [facility] HGB 06/16/2023 7.6 (L) 12.0 - 16.0 g/dL Final [facility] HCT 06/16/2023 26.7 (L) 36.0 - 48.0 % Final [facility] MCV 06/16/2023 86.7 81.0 - 99.0 fL Final [facility] MCH 06/16/2023 24.7 (L) 26.7 - 34.0 pg Final [facility] MCHC 06/16/2023 28.5 (L) 29.9 - 35.2 g/dL Final [facility] RDW 06/16/2023 17.0 (H) 11.0 - 15.0 % Final [facility] PLT 06/16/2023 406 150 - 450 10 3/uL Final [facility] MPV 06/16/2023 9.0 (L) 9.5 - 13.5 fL Final NEUTROPHILS PERCENT AUTO 06/16/2023 59.2 43.0 - 75.0 % Final LYMPHOCYTES PERCENT AUTO 06/16/2023 25.1 20.5 - 60.0 % Final MONOCYTES PERCENT AUTO 06/16/2023 8.0 1.7 - 12.0 % Final [facility] EO % 06/16/2023 6.4 0.9 - 7.0 % Final BASOPHILS PERCENT AUTO 06/16/2023 1.1 0.2 - 2.0 % Final IMMATURE GRANULOCYTES PCT AUTO 06/16/2023 0.2 0.0 - 0.5 % Final NEUTROPHILS ABSOLUTE AUTO 06/16/2023 3.8 1.4 - 6.5 10 3/uL Final LYMPHOCYTES ABSOLUTE AUTO 06/16/2023 1.6 1.2 - 3.8 10 3/uL Final MONOCYTES ABSOLUTE AUTO 06/16/2023 0.5 0.3 - 0.8 10 3/uL Final TBH EO # 06/16/2023 0.4 0.0 - 0.7 10 3/uL Final BASOPHILS ABSOLUTE AUTO 06/16/2023 0.1 0.0 - 0.1 10 3/uL Final IMMATURE GRANULOCYTES ABS AUTO 06/16/2023 0.01 0.00 - 0.03 10 3/uL Final Visit Vitals BP 126/74 Pulse 82 Ht 5' 3 Wt 128 lb SpO2 96% BMI 22.67 kg/m OB Status Hysterectomy Smoking Status Never BSA 1.61 m Allergies Allergen Reactions Prednisone Hives Tramadol Other Reaction(s): itching Valacyclovir Hcl Other Reaction(s): hives, itching Current Outpatient Medications Medication Instructions furosemide (LASIX) 40 mg, Oral, Daily losartan (COZAAR) 25 mg, Oral, Daily Assessment/Plan Diagnoses and all orders for this visit: High output congestive heart failure (CMS/HCC) Acute problem.Improved. This is her last day of twice daily Lasix. Tomorrow she shows good down to once daily. At this point we need to begin further evaluation for the cause of her congestive heart failure. We will go ahead and schedule echocardiogram to evaluate contractility and valvular heart disease. Stage 3b chronic kidney disease (HCC) (CMS/HCC) Chronic problem with unknown stability. The patient forgot to get the labs this morning with everything that was going on. She is going to leave after this office visit and go out to [facility] to get those labs done. Bilateral edema of lower extremity Acute problem suspiciously related to the congestive heart failure. Overall significant improvement. Abdominal bloating Acute problem suspiciously related to the congestive heart failure. Overall significant improvement. Weight gain, abnormal Acute problem suspiciously related to the congestive heart failure. Overall significant improvement. Other iron deficiency anemia New, chronic problem, unstable. She has a hemoglobin of 7.6 which could be contributing to her congestive heart failure. This was also part of the lab work to reevaluate. Once we get the lab work back we will need to make determination as to whether the patient needs possible transfusion, IV iron supplementation, oral iron supplementation. Malabsorption of iron (CMS/HCC) Chronic problem most likely secondary to her [place] bypass surgery. May also be somewhat secondary to her stage IIIB chronic kidney disease. As noted above. Addendum Labs dated 06/21/23 reviewed All are improved. Contacted patient back. Will schedule echocardiogram as noted. After back will have OV to re-evaluate and consider repeat testing. Discussed options and patient to try chelated iron orally. documented in this encounter [facility] 04-26-2023 Note HNO ID: [id number] Author: Bony Elizabeth RT(R) Service: Radiology Author [...] RT Rafaela(R) April 26, 2023 3:53 PM [facility] 04-26-2023 Note HNO ID: [id number] Author: Hanane Lau RT(Malcom) Service: Radiology Author Type: Technologist Type: Progress [...] RDMS RVT April 26, 2023 2:41 PM [facility] 04-26-2023 History of Present illness Narrative Radiology Service Progress Note PATIENT [...] RT Rafaela(R) April 26, 2023 3:53 PM documented in this encounter [facility] 04-26-2023 History of Present illness Narrative Radiology Service Progress Note PATIENT [...] Not applicable SIGNED BY: Hanane Lau RDMS T April 26, 2023 2:41 PM documented in this encounter [facility] 10-21-2022 Note HNO ID: [id number] Author: Dana Renteria RN Service: ? Author [...] procedures): No specimen collected. Dana Renteria RN [facility] 10-21-2022 Note HNO ID: [id number] Author: Samy Odonnell MD Service: ? Author Type: Physician Type: Progress Notes Filed: 10/21/2022 12:53 PM Note Text: CYSTOSCOPY PROCEDURE Ervin'Azucena WRIGHT NOTE Pertinent History [...] Samy Odonnell MD Director, Surgical Stone Disease [facility], [facility] Pager [phone] 10/21/2022 [facility] 10-21-2022 History of Present illness Narrative UNIVERSAL PROTOCOL / SAFETY CHECKLIST [...] specimen collected. Dana Renteria RN CYSTOSCOPY PROCEDURE M.Christin'S HOPS NOTE Pertinent History and Physical Exam [...] Samy Odonnell MD Director, Surgical Stone Disease [facility], [facility] Pager [phone] 10/21/2022 documented in this encounter [facility] 10-21-2022 Nurse Note Actual procedure/procedure scheduled: Yes Performing provider/scheduled provider: Yes Patient was roomed in: Q9- 05 [employer] Police Officer offered:Patient declines Patient arrived in the room [...] Education Session: None Instruction Provided To: Patient Storage Management Consultant Present: not applicable Discipline: Nursing Learning Topic: SURVIVAL SKILLS: Complication Prevention Symptom Management Patient Evaluation: Verbalizes understanding: Yes Supplemental Material Given: Written Material Instructed By Dana Renteria RN In Department Urology . documented in this encounter [facility] 10-12-2022 Note HNO ID: [id number] Author: ION Hopkins Service: ? Author Type: [...] October 12, 2022 TIME: 8:17 AM CSN: [id number] [facility] 09-28-2022 Note HNO ID: [id number] Author: Marley Brown PA-C Service: ? Author Type: Physician Forging Machine Hand Type: Progress Notes Filed: 09/28/2022 2:56 PM Note Text: [facility] PRE-OP NOTE Elizabeth [...] Signed: Yes. Pre-op HANDP Done by Physician Forging Machine Hand: Yes. PATIENT INSTRUCTIONS FOR SURGERY 1.) DO [...] for surgery. Marley Gutierrez PA-C Electronically signed [facility] 09-28-2022 Note Patient Outreach (UR OLMN) ELIZABETH IRVIN ([id number]) 1965 F Date Time Provider Department 09/28/22 MARLEY CHOE During your visit today, we recorded the following information about you: Allergies As of Date: 09/28/2022 Noted Allergy Reaction PREDNISONE 04/24/2022 4 - Hives VALACYCLOVIR 04/24/2022 4 - Hives Date Reviewed: 09/28/2022 Reviewed by: Marley Brown PA-C - Fully Assessed Visit Diagnosis:Screening for genitourinary condition [Z13.89] Order(s):URINALYSIS, REFLEX MICROSCOPIC [[id number]] Order #: [id number]. #:[id number] Prescriptions as of 10/01/2022 - cephALEXin (KEFLEX) [...] Of Date: 09/28/2022 (None) Encounter Status:Closed by Red Blue VoiceMELANI on 10/01/22 [facility] 09-28-2022 History and physical note UROLOGY SURGICAL [...] + HTN. No history of angina, CHF, [place], cardiac surgery of stents. Respiratory: Negative for [...] problems. Neurologic: No history of TIA's, stroke, AUTO LOCATOR tumor, impaired sensorium, hemiplegia or paraplegia No [...] (no units) Date Value 09/07/2022 Negative Specific [place], Ur (no units) Date Value 09/07/2022 1.014 [...] PM PAGER/CONTACT #: documented in this encounter [facility] 09-28-2022 History of Present illness Narrative [facility] PRE-OP NOTE Elizabeth [...] Signed: Yes. Pre-op H&P Done by Physician Forging Machine Hand: Yes. PATIENT INSTRUCTIONS FOR SURGERY 1.) DO [...] Marley Gutierrez PA-C documented in this encounter [facility] 09-16-2022 Note HNO ID: [id number] Author: Dede Story RN Service: ? Author [...] Visit completed when applicable. Dede Story RN [facility] 09-16-2022 Note HNO ID: [id number] Author: Samy Odonnell MD Service: ? Author Type: Physician Type: Progress Notes Filed: 09/16/2022 12:30 PM Note Text: CYSTOSCOPY PROCEDURE MMaite'S HOPAzucena NOTE Pertinent History and Physical Exam reviewed [...] Samy Odonnell MD Director, Surgical Stone Disease [facility], [facility] Pager [phone] 09/16/2022 [facility] 09-16-2022 History of Present illness Narrative UNIVERSAL PROTOCOL / SAFETY CHECKLIST [...] when applicable. Dede Story RN CYSTOSCOPY PROCEDURE Ervin'S HOPS NOTE Pertinent History and Physical Exam [...] Samy Odonnell MD Director, Surgical Stone Disease [facility], [facility] Pager [phone] 09/16/2022 documented in this encounter [facility] 09-16-2022 Nurse Note Actual procedure/procedure scheduled: Yes Performing provider/scheduled provider: Yes Patient was roomed in: Q9- 09 [employer] Police Officer offered: Patient declines Patient arrived in the [...] Education Session: None Instruction Provided To: Patient Storage Management Consultant Present: not applicable Discipline: Nursing Learning Topic: SURVIVAL SKILLS: Complication Prevention Pain Management Symptom Management Patient Evaluation: Verbalizes understanding: Yes Supplemental Material Given: None Instructed By Dede Story RN In Department Urology . documented in this encounter [facility] 09-07-2022 Note HNO ID: [id number] Author: Fernanda Joseph APRN.RADIOLOGICAL DEFENSE OFFICER Service: ? Author Type: Nurse Textile Converter Type: Anesthesia Procedure Notes Filed: 09/07/2022 1:55 PM Note Text: ANESTHESIOLOGY PROCEDURE NOTE Airway General Information Procedure Start Time/Medication Administration: 09/07/2022 1:38 PM Patient location during procedure: OR Timeout Performed Pre-procedure: timeout performed Consent Obtained: Yes Patient identity confirmed: arm band and patient Staffing RADIOLOGICAL DEFENSE OFFICER: Fernanda Joseph APRN.RADIOLOGICAL DEFENSE OFFICER Indications and Patient Condition Indications for airway management: anesthesia Preoxygenated: yes anesthesia circuit Patient position: sniffing Method: asleep Cricoid Pressure: No Manual In-Line Stabilization: No Difficult Mask: No Final Airway Details Final airway type: endotracheal airway Final Endotracheal Airway: ETT Cuffed: yes Successful intubation technique: video laryngoscopy Devices used: WHATT Endotracheal tube insertion site: oral Blade size: #4 ETT size (mm): 7.0 Measured from: lips Measurement (cm): 20 Placement verified by: capnometry Cormack-Lehane Classification: grade I - full view of glottis Number of attempts at approach: 1 Failed airway: no Unrecognized esophageal intubation: no Airway not difficult SIGNATURE: Fernanda Joseph APRN.CRNA PATIENT NAME: Elizabeth Irvin DATE: September 07, 2022 TIME: 1:54 PM CSN: [id number] [facility] 09-07-2022 Note Patient Outreach (UR OLMN) ELZIABETH IRVIN ([id number]) 1965 F Date Time Provider Department 09/07/22 MARLEY CHOE During your visit today, we recorded the following information about you: Allergies As of Date: 09/07/2022 Noted Allergy Reaction PREDNISONE 04/24/2022 4 - Hives VALACYCLOVIR 04/24/2022 4 - Hives Date Reviewed: 09/07/2022 Reviewed by: Zelalem Pichardo RN - Fully Assessed Visit Diagnosis:Screening for genitourinary condition [Z13.89] Order(s):URINALYSIS, REFLEX MICROSCOPIC [[id number]] Order #: [id number]. #:[id number] Prescriptions as of 09/10/2022 - tamsulosin (FLOMAX) [...] Of Date: 09/07/2022 (None) Encounter Status:Closed by Red Blue Voice, PRODUSER on 09/10/22 [facility] 09-07-2022 Note HNO ID: [id number] Author: Marley Brown PA-C Service: ? Author Type: Physician Forging Machine Hand Type: Progress Notes Filed: 09/07/2022 10:06 AM [...] Urine 08/18/2022 Negative Trace, Negative Final Specific [place], Ur 08/18/2022 1.016 1.005 - 1.030 Final [...] low oxalate di (more content not included)... [facility] 09-07-2022 History of Present illness Narrative Chief complaint: Kidney stones Elizabeth [...] Urine 08/18/2022 Negative Trace, Negative Final Specific [place], Ur 08/18/2022 1.016 1.005 - 1.030 Final [...] All fluids count but water is best. [place] intake - Recommend increasing dietary citrate intake. [...] which included preparing to see the patient, mswp-ju-znuc patient care, completing clinical documentation, obtaining and/or reviewing separately obtained history, performing a medically appropriate examination, counseling and educating the patient/family/caregiver, ordering medications, tests, or procedures, and communicating results to the patient/family/caregiver. Marley Gutierrez PA-C documented in this encounter [facility] 09-07-2022 History and physical note UROLOGY SURGICAL [...] + HTN. No history of angina, CHF, [place], cardiac surgery of stents. Respiratory: Negative for [...] problems. Neurologic: No history of TIA's, stroke, AUTO LOCATOR tumor, impaired sensorium, hemiplegia or paraplegia No [...] (no units) Date Value 08/18/2022 Negative Specific [place], Ur (no units) Date Value 08/18/2022 1.016 [...] 07, 2022 TIME: 8:59 AM PAGER/CONTACT #: [facility] PRE-OP NOTE Elizabeth Irvin is a 56 year old female. Pre-op Date: September 07, 2022 Date of Procedure: 09/07/22 Does the patient have an active COVID-19 test in [place] [facility]? N/a Procedure/Surgery: L URS and stent Diagnosis: [...] Signed: Yes. Pre-op H&P Done by Physician Forging Machine Hand: Yes. PATIENT INSTRUCTIONS FOR SURGERY 1.) DO [...] Marley Gutierrez PA-C documented in this encounter [facility] 08-19-2022 Miscellaneous Notes Called and spoke with [...] 12:00 PM - ----- Message from Gracy Kolb sent at 08/19/2022 10:54 AM EDT ----- Regarding: Dry-heaving Contact: Pt called - completed labs (advised pt urine culture is still in process) pt says dry heaving all the pills, pt wants to know if there is an infection could a shot be giving instead of a pill. Please advise -thank you. documented in this encounter [facility] 08-13-2022 Miscellaneous Notes Called patient to discuss [...] 2022 9:55 AM documented in this encounter [facility] 07-30-2022 Note HNO ID: [id number] Author: Donovan Guzman [employer] Service: Nuclear Medicine Author Type: Medical Professionals Type: Progress Notes Filed: 07/30/2022 2:28 PM [...] 1345 PATIENT DISCHARGED TO: Ambulatory patient, left [place] department area. A Diagnostic radioactive procedure has taken place, with no further precautions necessary other than routine body substance precautions. More information regarding radiation safety can be found using this link: [email or web address] [email or web address]-%[email or web address]%20Nuclear%20Me dicine%20Procedures.pdf SIGNATURE: Donovan Guzman [employer] PATIENT NAME: Elizabeth Irvin DATE: July 30, 2022 TIME: 2:26 PM PAGER/CONTACT #: [facility] 07-30-2022 History of Present illness Narrative RADIOLOGY SERVICE PROGRESS NOTE SERVICE [...] 1345 PATIENT DISCHARGED TO: Ambulatory patient, left [place] department area. A Diagnostic radioactive procedure has taken place, with no further precautions necessary other than routine body substance precautions. More information regarding radiation safety can be found using this link: [email or web address] [email or web address]-%20Diagnostic%20N uclear%20Medicine%20Procedures.p df SIGNATURE: Donovan Guzman [employer] PATIENT NAME: Elizabeth Irvin DATE: July 30, 2022 TIME: 2:26 PM PAGER/CONTACT #: documented in this encounter [facility] 07-30-2022 Nurse Note Patient here for a renal scan with lasix. Patient identified and allergies reviewed. Per order under scanned documents lasix 40 mg IV given at 1411. documented in this encounter [facility] 07-14-2022 Note Patient Outreach (UR OLMN) ELIZABETH IRVIN ([id number]) 1965 F Date Time Provider Department 07/14/22 SAMY ODONNELL During your visit today, we recorded the following information about you: Allergies As of Date: 07/14/2022 Noted Allergy Reaction PREDNISOLONE 07/14/2022 4 - Hives PREDNISONE 04/24/2022 4 - Hives VALACYCLOVIR 04/24/2022 4 - Hives Date Reviewed: 07/14/2022 Reviewed by: Gali Mcnally, ANNALISE - Fully Assessed Visit Diagnosis:Screening for genitourinary condition [Z13.89] Order(s):URINALYSIS, REFLEX MICROSCOPIC [[id number]] Order #: [id number]. #:[id number] Prescriptions as of 07/17/2022 - nitrofurantoin monohydrate [...] Of Date: 07/14/2022 (None) Encounter Status:Closed by CodeEvalUSER on 07/17/22 [facility] 07-14-2022 Note HNO ID: [id number] Author: Samy Odonnell MD Service: ? Author [...] based on size, location, hounsfield units and nspm-lp-wjtdn distance: 0% 3. Ureteroscopy - risks of [...] with more than 50% of the total mdrz-ry-qeny time of the visit devoted to patient counseling/coordination of care. Samy Odonnell MD Director, Surgical Stone Disease [facility], [facility] Pager [phone] 07/14/2022 [facility] 07-14-2022 History of Present illness Narrative Images from the original note [...] based on size, location, hounsfield units and bufh-wz-iufqs distance: 0% 3. Ureteroscopy - risks of [...] with more than 50% of the total drmb-pj-dvwn time of the visit devoted to patient counseling/coordination of care. Samy Odonnell MD Director, Surgical Stone Disease [facility], [facility] Pager [phone] 07/14/2022 documented in this encounter [facility] 07-07-2022 Hospital Discharge instructions Patient Education 07/07/2022 08:44:18 Dietary Guidelines [...] include: ?Spinach. ?Rhubarb. ?Beets. ?Potato chips and israeli fries. ?Nuts. If you regularly take a diuretic medicine, make sure to eat at least 1 2 fruits or vegetables high in potassium each day. These include: ?Avocado. ?Banana. ?[place], prune, carrot, or tomato juice. ?Baked potato. [...] Casseroles. Pizza. Lasagna. Frozen meals. Potato chips. Irish fries. Summary You can reduce your risk [...] 09/04/2011 Document Revised: 08/30/2019 Document Reviewed: 04/20/2017 [employer] Patient Education 2020 [employer]. Follow Up Care 06/29/2022 15:30:12 With:KULWANT REED, Chalo Frazier, URL Address: [address] [place] [address] [place], [place] [id number]- When: Unknown [facility] Patti 06-18-2022 Evaluation + Plan note Extrac bernardo from: Title:Post-anesthesia - General Author:Garfield Garrett DO Date:06/18/22 Plan Transfer/ Discharge: Condition stable. Extracted from: Title:Pre-anesthesia - Adult Author:Garfield Beauchamp Jr., DO Date:06/18/22 Plan [place] [employer] Anesthesiologists (ASA) physical status classification: [...] Follow these instructions at home: Medicines Take pxqv-ius-cheobhb and prescription medicines only as told by [...] 05/29/2008 Document Revised: 08/21/2019 Document Reviewed: 03/31/2017 [employer] Patient Education 2020 [employer]. Follow Up Care 03/31/2022 13:46:23 With:Chalo BLUM Address: [address] [address]- Business (1) When:1 to 2 weeks Comments:Call for followup appointment with an abdominal X-ray prior to your visit (my office will need to send an order for the X-ray) [facility]01-13-2023 Note [id number]:127[facility] 04-15-2022 [id number]#1.00CD:127[facility]11-22-2022 [id number]:127 [facility]11-08-2022 Hospital Discharge instructions Patient Education 03/31/2022 13:07:20 Kidney Stones, Ltdh-bn-Fnhw Kidney Stones Kidney stones are rock-like masses [...] Follow these instructions at home: Medicines Take ghuw-ijf-ufzhuiw and prescription medicines only as told by [...] 10/26/2008 Document Revised: 09/26/2019 Document Reviewed: 09/26/2019 [employer] Patient Education 2019 [employer]. Follow Up Care 03/26/2022 10:20:11 With:KULWANT REED, Chalo Frazier, URL Address: [facility] [place] [id number]- When: Unknown [facility] 10-31-2022 Evaluation note* Encounter Date Diagnosis Assessment [...] - E11.9) Continue current dose. Sent to [facility] Feb, RLS (restless legs syndrome) (ICD-10 - G25.81) Continue medication as discussed. Sent order to [facility] Feb, JEET (generalized anxiety disorder) (ICD-10 - F41.1) Continue medication as discussed. Sent order to [facility] 10-27-2022 NoteEXAMINATION: XR RETROGRADE PYELOGRAM HISTORY: [...] Electronically authenticated by: NATACHA WILD Date: 2022-03-19 16:44[facility]10-27-2022 NoteOPERATIVE NOTE OPERATION DATE: 03/19/2022 PREOPERATIVE DIAGNOSIS: [...] placed per urethra and a well lubricated 22-Irish cystourethroscope with 30 degree lens was then [...] backloaded over the wire and a 4.8 Irish 22-30 cm [employer] double J stent was passed into the left kidney. Minimal difficulty getting the stent past the stone over the wire. The wire was removed and there was good curl within the kidney and (more content not included)...[id number] Evaluation note* Encounter Date Diagnosis Assessment Notes [...] RLS (restless legs syndrome) (ICD-10 - G25.81) [facility] Other Evaluation + Plan note Future Appointments Appointment Date:04/17/2022 07:30:00 AM Scheduled Provider: Location:[facility] Appointment Type:Surgical PAT FT Appointment Date:04/30/2022 10:00:00 AM Scheduled Provider: Location:[facility] Appointment Type:Surgery FT [facility] [place] Evaluation + Plan note Future Appointments Appointment Date:04/30/2022 12:45:00 PM Scheduled Provider: Location:[facility] Appointment Date:06/18/2022 11:30:00 AM Scheduled Provider: Location:[facility] Appointment Type:Surgery FT Diagnostic Tests Pending * Urine Culture [facility]11/22 [facility] Evaluation noteNo InformationNort [employer] Other evaluation noteNo assessment information available [facility] Work Phone: Evaluation note* Diagnosis Abnormal urinalysis- Primary Other nonspecific finding on examination of urine [facility] Diagnosis Nephrolithiasis- Primary Calculus of kidney Hydronephrosis with urinary obstruction due to ureteral calculus Left flank pain Abdominal pain, unspecified site Left renal atrophy Renal sclerosis, unspecified [facility]* Diagnosis Hydronephrosis with urinary obstruction due to ureteral calculus [facility]* Diagnosis Nephrolithiasis- Primary Calculus of kidney [facility]* Diagnosis Nephrolithiasis- Primary Calculus of kidney [facility] Diagnosis Preop examination- Primary Preoperative examination, unspecified Nephrolithiasis Calculus of kidney Hypernatriuria Hyperosmolality and/or hypernatremia Hyperoxaluria Other specified disorders of carbohydrate transport and metabolism Hypocitraturia Other nonspecific finding on examination of urine Aciduria (HCC) Other nonspecific finding on examination of urine Urine volume deficient Oliguria and anuria Elevated parathyroid hormone Unspecified endocrine disorder [facility] Diagnosis Screening for genitourinary condition Screening for other and unspecified genitourinary condition [facility] Diagnosis Nephrolithiasis- Primary Calculus of kidney [facility] Diagnosis Nephrolithiasis- Primary Calculus of kidney Abnormal urinalysis Other nonspecific finding on examination of urine Nephrolithiasis Calculus of kidney [facility] Diagnosis Preop examination- Primary Preoperative examination, unspecified Nephrolithiasis Calculus of kidney Nephrolithiasis Calculus of kidney [facility] Diagnosis Screening for genitourinary condition Screening for other and unspecified genitourinary condition Nephrolithiasis Calculus of kidney documented in this encounter [facility] note* Diagnosis Nephrolithiasis- Primary Calculus of kidney Hyperoxaluria Other specified disorders of carbohydrate transport and metabolism Hypernatriuria Hyperosmolality and/or hypernatremia Hypocitraturia Other nonspecific finding on examination of urine Low urine output Oliguria and anuria documented in this encounter [facility] note* Diagnosis Nephrolithiasis Calculus of kidney documented in this encounter [facility] note* Diagnosis Nephrolithiasis Calculus of kidney documented in this encounter [facility] note* Diagnosis 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 Stage 3b chronic kidney disease (HCC) (CMS/HCC) Bilateral edema of lower extremity Abdominal bloating Flatulence, eructation, and gas pain Weight gain, abnormal Other iron deficiency anemia Malabsorption of iron (CMS/HCC) Other specified intestinal malabsorption [facility] - [facility]* Type Description Date Medical History chronic depression Medical History obesity Medical History hypertension Medical History diabetes mallitus Medical History Gastric bypass Surgical History carpal tunnel release Surgical History hysterectomy Surgical History gastric bypass Hospitalization History see above [facility] Other History general Narrative - Reported* Type Description Date Medical History chronic depression Medical History obesity Medical History hypertension Medical History diabetes mallitus Medical History Gastric bypass Surgical History carpal tunnel release Surgical History hysterectomy Surgical History gastric bypass Surgical History ureter stent Hospitalization History see above [facility] Other [facility] Narrative - Reported* Type Description Date Medical History chronic depression Medical History obesity Medical History hypertension Medical History diabetes mellitus Medical History Gastric bypass Medical History KIDNEY STONES Surgical History carpal tunnel release Surgical History hysterectomy Surgical History gastric bypass Surgical History ureter stent Hospitalization History see above [facility] Other Hospital course Narrative No data available for this section [facility] Discharge instructions No data available for this section [facility] No data available for this section [facility] Reason for referral (narrative) Referred by: KULWANT REED, Chalo Frazier [facility] [employer] for referral (narrative)* Diagnostic Procedure Only (Routine) - Pending Review Specialty Diagnoses / Procedures Referred By Arminda mejia Referred To Contact MOLECULAR & FUNCTIONAL IMAGING Diagnoses Hydronephrosis with urinary obstruction due to ureteral calculus Procedures NM RENAL FLOW/FXN W PHARM KIDNEY IMG MORPHOLOGY VASCULAR FLOW 1 W/RX Samy Odonnell MD [address] [place] [address] Molecular & Functional Imaging [address] [place] [address] Referral ID Status Reason Start Date Expiration Date Visits Requested Visits Authorized [id number] Pending Review Auto-Generat ed Referral 07/14/2022 08/13/2023 1 1 [facility] for referral (narrative)* Diagnostic Procedure Only (Routine) - Closed Specialty Diagnoses / Procedures Referred By Arminda mejia Referred To Contact MOLECULAR & FUNCTIONAL IMAGING Diagnoses Hydronephrosis with urinary obstruction due to ureteral calculus Procedures NM RENAL FLOW/FXN W PHARM KIDNEY IMG MORPHOLOGY VASCULAR FLOW 1 W/RX Samy Odonnell MD [address] [place] [address] Molecular & Functional Imaging [address] [place] [address] Referral ID Status Reason Start Date Expiration Date V isits Requested Visits Authorized [id number] Closed Auto-Generate d Referral 07/21/2022 10/20/2022 1 1 [facility] for referral (narrative)* Diagnostic Procedure Only (Routine) - Pending Review Specialty Diagnoses / Procedures Referred By Arminda mejia Referred To Contact XR IMAGING Diagnoses Nephrolithiasis Procedures XR ABDOMEN 3V KUB W/OBLIQUES RADIOLOGIC EXAM ABDOMEN 3+ VIEWS Samy Odonnell MD [address] [place] [address] Xr Imaging Referral ID Status Reason Start Date Expiration Date Visits Requested Visits Authorized [id number] Pending Review Auto-Generat ed Referral 10/21/2022 11/20/2023 1 1 * Diagnostic Procedure Only (Routine) - Pending Review Specialty Diagnoses / Procedures Referred By Contac t Referred To Contact US IMAGING Diagnoses Nephrolithiasis Procedures US KIDNEY/BLADDER US RETROPERITONEAL REAL TIME W/IMAGE COMPLETE Samy Odonnell MD [address] [place] [address] Us Imaging Referral ID Status Reason Start Date Expiration Date Visits Requested Visits Authorized [id number] Pending Review Auto-Generat ed Referral 10/21/2022 11/20/2023 1 1 [facility] for referral (narrative)* Diagnostic Procedure Only (Routine) - Closed Specialty Diagnoses / Procedures Referred By Contac t Referred To Contact US IMAGING Diagnoses Nephrolithiasis Procedures US KIDNEY/BLADDER US RETROPERITONEAL REAL TIME W/IMAGE COMPLETE Samy Odonnell MD [address] [place] [address] Us Imaging [place] [address] Referral ID Status Reason Start Date Expiration Date V isits Requested Visits Authorized [id number] Closed Auto-Generate d Referral 10/21/2022 11/20/2023 1 1 Healthcare for referral (narrative)* Diagnostic Procedure Only (Routine) - Closed Specialty Diagnoses / Procedures Referred By Contac t Referred To Contact XR IMAGING Diagnoses Nephrolithiasis Procedures XR ABDOMEN 3V KUB W/OBLIQUES RADIOLOGIC EXAM ABDOMEN 3+ VIEWS Samy Odonnell MD [address] [place] [address] Xr Imaging [facility] Referral ID Status Reason Start Date Expiration Date V isits Requested Visits Authorized [id number] Closed Auto-Generate d Referral 10/21/2022 11/20/2023 1 1 [facility] for visit Narrative* Diagnostic Procedure Only (Routine) - Closed Specialty Diagnoses / Procedures Referred By Arminda mejia Referred To Contact MOLECULAR & FUNCTIONAL IMAGING Diagnoses Hydronephrosis with urinary obstruction due to ureteral calculus Procedures NM RENAL FLOW/FXN W PHARM KIDNEY IMG MORPHOLOGY VASCULAR FLOW 1 W/RX Samy Odonnell MD [address] [place] [address] Molecular & Functional Imaging [address] [place] [address] Referral ID Status Reason Start Date Expiration Date V isits Requested Visits Authorized [id number] Closed Auto-Generate d Referral 07/21/2022 10/20/2022 1 1 [facility] N[facility]* Diagnostic Procedure Only (Routine) - Closed Specialty Diagnoses / Procedures Referred By Arminda mejia Referred To Contact US IMAGING Diagnoses Nephrolithiasis Procedures US KIDNEY/BLADDER US RETROPERITONEAL REAL TIME W/IMAGE COMPLETE Samy Odonnell MD [address] [place] [id number] Us Imaging [place] [address] Referral ID Status Reason Start Date Expiration Date V isits Requested Visits Authorized [id number] Closed Auto-Generate d Referral 10/21/2022 11/20/2023 1 1 [facility] Summary Purpose Family History Unknown Family Member Name Dates Details Family history of myocardial infarction: Mother, Father(V17.3, Z82.49) Status:Active Advance Directives Advance Directive Response Recorded Date/ Time Advance [...] section and content) DATE CREATED AUTHOR 07/25/[address] [facility] DATE CREATED AUTHOR AUTHOR'S ORGANIZ ATION 04/05/2022 [facility] DATE CREATED AUTHOR AUTHOR'S ORGANIZ ATION 05/06/2022 [employer] DATE CREATED AUTHOR AUTHOR'S ORGANIZ ATION 07/16/2022 [facility] DATE CREATED AUTHOR AUTHOR'S ORGANIZ ATION 07/30/[address] [facility] DATE CREATED AUTHOR AUTHOR'S ORGANIZ ATION 08/01/2022 [facility] DATE CREATED AUTHOR AUTHOR'S ORGANIZ ATION 04/28/2023 [facility] DATE CREATED AUTHOR AUTHOR'S ORGANIZ ATION 06/21/2023 [facility] EPIC REASON FOR VISIT (unrecogniz ed section and content) Reason Comments Consult Kidney Stones Reason Comments [employer] - Other Reason Comments Returning Patient's Call Reason Comments Pre-Op Exam Specialty Diagnoses / Procedures Referred By Arminda mejia Referred To Contact ADMITTING Diagnoses Nephrolithiasis Procedures CYSTO/URETERO W/LITHOTRIPSY &INDWELL STENT INSRT CYSTO W/INSERT URETERAL STENT CYSTOURETHROSCOPY W/ URETEROSCOPY AND/OR PYELOSCOPY W/ LITHOTRIPSY INCLUDE INSERTION OF INDWELLING URETERAL STENT CYSTOSCOPY, INSERTION STENT URETERAL [facility] [address] [place] [address] Referral ID Status Reason Start Date Expiration Date Visits Re quested Visits Authorized [id number] 1 1 Reason Onset Date Comments Opened In Error 09/24/2022 Reason Comments Radio Gen A21 Specialty Diagnoses / Procedures Referred By Arminda mejia Referred To Contact XR IMAGING Diagnoses Nephrolithiasis Procedures XR ABDOMEN 3V KUB W/OBLIQUES RADIOLOGIC EXAM ABDOMEN 3+ VIEWS Samy Odonnell MD [address] [place] [address] [place] [address] Referral ID Status Reason Start Date Expiration Date V isits Requested Visits Authorized [id number] Closed Auto-Generate d Referral 10/21/2022 11/20/2023 1 1 Patient Care team informatio n (unrecognized section and content) Team Status: Inactive Member Role Status Dates Chalo Blum MD Attending Provider Active CESAR Brandon Primary Care Provider Active Team Status: Active Member Role Status Dates CESAR Brandon Primary Care Provider Active Academic Associate Relationship Specialty Start Date End Date Chalo Blum [address] [place] [address] Referring Urology 07/07/22 Academic Associate Relationship Specialty Start Date End Date Chalo Blum [address] [place] [address] Referring Urology 07/07/22 Academic Associate Relationship Specialty Start Date End Date Chalo Blum [address] [place] [address] Referring Urology 07/07/22 Academic Associate Relationship Specialty Start Date End Date Chalo Blum [address] [place] [address] Referring Urology 07/07/22 Academic Associate Relationship Specialty Start Date End Date Chalo Blum [address] [place] [address] Referring Urology 07/07/22 Academic Associate Relationship Specialty Start Date End Date Chalo Blum [address] [place] [address] Referring Urology 07/07/22 Academic Associate Relationship Specialty Start Date End Date Chalo Blum [address] [place] [address] Referring Urology 07/07/22 Academic Associate Relationship Specialty Start Date End Date Chalo Blum Freddie [address] [place] [id number] Referring Urology 07/07/22 Academic Associate Relationship Specialty Start Date End Date Allen Blumshine Frazier [address] [place] [address] Referring Urology 07/07/22 Academic Associate Relationship Specialty Start Date End Date Allen Blumshine Frazier [address] [place] [address] Referring Urology 07/07/22 Academic Associate Relationship Specialty Start Date End Date KulwantAllenChalo P [address] [place] [address] Referring Urology 07/07/22 Academic Associate Relationship Specialty Start Date End Date Allen Blumshine Frazier [address] [place] [address] Referring Urology 07/07/22 Academic Associate Relationship Specialty Start Date End Date Chalo Blum [address] [place] [address] Referring Urology 07/07/22 Academic Associate Relationship Specialty Start Date End Date Chalo Blum [address] [place] [address] Referring Urology 07/07/22 Academic Associate Relationship Specialty Start Date End Date Justin Marley MD [address] [place] [address] PCP - General Family Medicine 06/08/23 Goals (unrecognized section and content) Goals may be documented in a n alternate section Source Comments (unrecognize d section and content) In the event this informatio n is protected by the Federal Confidentiality of Alcohol and Drug Abuse Patient Records regulations: The Federal rules restrict any use of the information to criminally investigate or prosecute any alcohol or drug abuse patient.[facility] the event this information is protected by the Federal Confidentiality of Alcohol and Drug Abuse Patient Records regulations: The Federal rules restrict any use of the information to criminally investigate or prosecute any alcohol or drug abuse patient.[facility] the event this information is protected by the Federal Confidentiality of Alcohol and Drug Abuse Patient Records regulations: The Federal rules restrict any use of the information to criminally investigate or prosecute any alcohol or drug abuse patient.[facility] the event this information is protected by the Federal Confidentiality of Alcohol and Drug Abuse Patient Records regulations: The Federal rules restrict any use of the information to criminally investigate or prosecute any alcohol or drug abuse patient.[facility] the event this information is protected by the Federal Confidentiality of Alcohol and Drug Abuse Patient Records regulations: The Federal rules restrict any use of the information to criminally investigate or prosecute any alcohol or drug abuse patient.[facility] the event this information is protected by the Federal Confidentiality of Alcohol and Drug Abuse Patient Records regulations: The Federal rules restrict any use of the information to criminally investigate or prosecute any alcohol or drug abuse patient.[facility] the event this information is protected by the Federal Confidentiality of Alcohol and Drug Abuse Patient Records regulations: The Federal rules restrict any use of the information to criminally investigate or prosecute any alcohol or drug abuse patient.[facility] the event this information is protected by the Federal Confidentiality of Alcohol and Drug Abuse Patient Records regulations: The Federal rules restrict any use of the information to criminally investigate or prosecute any alcohol or drug abuse patient.[facility] the event this information is protected by the Federal Confidentiality of Alcohol and Drug Abuse Patient Records regulations: The Federal rules restrict any use of the information to criminally investigate or prosecute any alcohol or drug abuse patient.[facility] the event this information is protected by the Federal Confidentiality of Alcohol and Drug Abuse Patient Records regulations: The Federal rules restrict any use of the information to criminally investigate or prosecute any alcohol or drug abuse patient.[facility] the event this information is protected by the Federal Confidentiality of Alcohol and Drug Abuse Patient Records regulations: The Federal rules restrict any use of the information to criminally investigate or prosecute any alcohol or drug abuse patient.[facility] the event this information is protected by the Federal Confidentiality of Alcohol and Drug Abuse Patient Records regulations: The Federal rules restrict any use of the information to criminally investigate or prosecute any alcohol or drug abuse patient.[facility] the event this information is protected by the Federal Confidentiality of Alcohol and Drug Abuse Patient Records regulations: The Federal rules restrict any use of the information to criminally investigate or prosecute any alcohol or drug abuse patient.[facility] the event this information is protected by the Federal Confidentiality of Alcohol and Drug Abuse Patient Records regulations: The Federal rules restrict any use of the information to criminally investigate or prosecute any alcohol or drug abuse patient.[facility] the event this information is protected by the Federal Confidentiality of Alcohol and Drug Abuse Patient Records regulations: The Federal rules restrict any use of the information to criminally investigate or prosecute any alcohol or drug abuse patient.[facility] the event this information is protected by the Federal Confidentiality of Alcohol and Drug Abuse Patient Records regulations: The Federal rules restrict any use of the information to criminally investigate or prosecute any alcohol or drug abuse patient.[facility] the event this information is protected by the Federal Confidentiality of Alcohol and Drug Abuse Patient Records regulations: The Federal rules restrict any use of the information to criminally investigate or prosecute any alcohol or drug abuse patient.[facility] the event this information is protected by the Federal Confidentiality of Alcohol and Drug Abuse Patient Records regulations: The Federal rules restrict any use of the information to criminally investigate or prosecute any alcohol or drug abuse patient.[facility] the event this information is protected by the Federal Confidentiality of Alcohol and Drug Abuse Patient Records regulations: The Federal rules restrict any use of the information to criminally investigate or prosecute any alcohol or drug abuse patient.[facility] the event this information is protected by the [facility] Confidentiality of Alcohol and Drug Abuse Patient Records regulations: The Federal rules restrict any use of the information to criminally investigate or prosecute any alcohol or drug abuse patient.[facility] the event this information is protected by the Federal Confidentiality of Alcohol and Drug Abuse Patient Records regulations: The Federal rules restrict any use of the information to criminally investigate or prosecute any alcohol or drug abuse patient.[facility] FOR RECORDS PERTAINING TO PATIENTS WHO ARE [...] BE BASED ON THE PRIMARY CLINICAL RECORDS. [facility]. provides no warranty or guarantee of the accuracy or completeness of information in this document.
--- NOTE | 2023-07-12 07:12 | ECG_ITS ---
[facility] Test Date: 2023-07-12 Pat Name: ELIZABETH IRVIN Department: Room: - Gender: Female [employer] J[employer]ger: : 1965 Requested By: KASEY MARLEY Order Number: [id number] Reading MD: LUIS PRATT Measurements Intervals [place] Rate: 65 P: 49 RI: 184 QRS: 46 QRSD: 94 T: 53 QT: 390 QTc: 401 Interpretive Statements 1100 Sinus rhythm 9110 normal ECG Compared to ECG 05/30/2023 13:45:34 Myocardial infarct finding no longer present Electronically Signed On 07-12-2023 23:24:36 EST by LUIS PRATT
[2023-07-12] MEDS: 0.9 % SODIUM CHLORIDE 1,000 ML 1000 ML IV (07:21)
--- NOTE | 2023-07-12 07:22 | ED_ITS ---
HPI - Syncope General Chief Complaint: Syncope Stated Complaint: FALL HYPOTENSION Time Seen by Provider: 07/12/23 07:06 Source: patient Mode of arrival: ambulance Limitations: no limitations History of Present Illness HPI narrative: 57-year-old female presents for syncopal episode which happened at work just before coming into the emergency department and being transported here by paramedics. She had a normal day today and she thinks she may have accidentally took a losartan pill which she is not on. She has been on that previously but it made her dizzy and she was taken off of it. When she got to work she had a syncopal episode and she fell but she did not injure herself in any fashion. She does not have any pain. She was noted to be hypotensive upon arrival. She states she is always pale and is always anemic. Related Data Home Medications Medication Instructions Recorded Confirmed tamsulosin 0.4 mg capsule 0.4 mg PO Q24H 05/30/23 05/30/23 ferrous sulfate 325 mg (65 mg 325 mg PO BID 07/12/23 07/12/23 iron) tablet (iron) furosemide 40 mg tablet mg 07/12/23 mecobalamin (vitamin B12) 1,000 1,000 mcg PO DAILY 07/12/23 07/12/23 mcg chewable tablet Previous Rx's Medication Instructions Recorded ciprofloxacin HCl 500 mg tablet 500 mg PO BID #20 tabs 06/01/23 hyoscyamine sulfate 0.125 mg 0.125 mg PO Q6H PRN dyspepsia #30 06/01/23 sublingual tablet (Levsin/SL) tabs pantoprazole 40 mg tablet,delayed 40 mg PO DAILY #30 tabs 06/01/23 release (Protonix) Allergies Allergy/AdvReac Type Severity Reaction Status Date / Time prednisone Allergy Severe Verified 05/30/23 13:48 valacyclovir AdvReac Severe Verified 05/30/23 13:48 Review of Systems ROS Narrative A ten point review of systems is negative except as noted above. [facility] Medical History (Updated 07/12/23 @ 08:34 by David Centeno MD) Acute kidney failure ?N17.9 - Acute kidney failure, unspecified (ICD-10) Dizziness ?R42 - Dizziness and giddiness (ICD-10) Social History Smoking status: Never smoker Highest level of school completed/degree received: GED or equivalent Exam Narrative Exam Narrative: Nurses note and vital signs reviewed and patient is not hypoxic. General: The patient appears well and in no apparent distress. Patient is resting comfortably on cart. Skin: Warm, dry, pallor noted. There is no rash noted. Head: Normocephalic, atraumatic Eye: pale conjunctiva, no drainage Ears, Nose, Mouth, and Throat: oral mucosa is moist. Nares patent. Cardiovascular: Regular Rate and Rhythm Respiratory: Patient is in no distress, no accessory muscle use, lungs are clear to auscultation, no wheezing, rales or rhonchi Back: non-tender GI: Soft and nontender Musculoskeletal: No palpable tenderness to her extremities including her hips Neurological: A&O, normal speech Psychiatric: Cooperative Constitutional Vital Signs, click to edit/add: Last Vital Signs Temp 97.6 F 07/12/23 06:52 Pulse 69 07/12/23 08:30 Resp 19 07/12/23 08:30 BP 118/77 07/12/23 08:30 Pulse Ox 100 07/12/23 08:30 O2 Del Method Room Air 07/12/23 07:18 Course Vital Signs Vital signs: Vital Signs Temperature 97.6 F 07/12/23 06:52 Pulse Rate 74 07/12/23 06:52 Respiratory Rate 16 07/12/23 06:52 Blood Pressure 77/45 L 07/12/23 06:52 Pulse Oximetry 100 07/12/23 06:52 Oxygen Delivery Method Room Air 07/12/23 06:52 Temperature 97.6 F 07/12/23 06:52 Pulse Rate 69 07/12/23 08:30 Respiratory Rate 19 07/12/23 08:30 Blood Pressure 118/77 07/12/23 08:30 Pulse Oximetry 100 07/12/23 08:30 Oxygen Delivery Method Room Air 07/12/23 07:18 MDM - Syncope MDM Narrative Medical decision making narrative: Her workup was negative. She was given IV fluids and her blood pressure has normalized. She has been ambulatory here and is able to be discharged. Treatment diagnosis and follow-up were discussed with the patient. Her syncopal episode and hypotension is likely due to the losartan that she accidentally took today. Treatment diagnosis and follow-up were discussed with the patient. Differential Diagnosis Differential diagnosis: Likely syncope due to orthostatic hypotension, vasovagal syncope, dehydration and other (Dysrhythmia) Lab Data Attestation: I reviewed the patient's lab results. Labs: Lab Results 07/12/23 Range/Units 07:00 WBC 6.0 (4.0-11.0) 10^3/uL RBC 4.00 L (4.20-5.40) 10^6/uL Hgb 10.2 L (12.0-16.0) g/dL Hct 35.1 L (36.0-48.0) % MCV 87.8 (81.0-99.0) fL MCH 25.5 L (26.7-34.0) pg MCHC 29.1 L (29.9-35.2) g/dL RDW 15.9 H (11.0-15.0) % Plt Count 310 (150-450) 10^3/uL MPV 8.6 L (9.5-13.5) fL Neut % (Auto) 73.1 (43.0-75.0) % Lymph % (Auto) 18.5 L (20.5-60.0) % Miner % (Auto) 5.5 (1.7-12.0) % Eos % (Auto) 2.2 (0.9-7.0) % Baso % (Auto) 0.5 (0.2-2.0) % Neut # (Auto) 4.4 (1.4-6.5) 10^3/uL Lymph # (Auto) 1.1 L (1.2-3.8) 10^3/uL Miner # (Auto) 0.3 (0.3-0.8) 10^3/uL Eos # (Auto) 0.1 (0.0-0.7) 10^3/uL Baso # (Auto) 0.0 (0.0-0.1) 10^3/uL Abs Immat Gran (auto) 0.01 (0.00-0.03) 10^3/uL Imm/Tot Granulo (auto) 0.2 (0.0-0.5) % Sodium 142 (136-145) mmol/L Potassium 4.0 (3.5-5.1) mmol/L Chloride 105 (98-107) mmol/L Carbon Dioxide 25.5 (21.0-32.0) mmol/L Anion Gap 15.5 BUN 27.0 H (7.0-18.0) mg/dL Creatinine 1.83 H (0.55-1.02) mg/dL Est GFR ( Amer) 34 L (>=60) Est GFR (Non-Af Amer) 28 L (>=60) BUN/Creatinine Ratio 14.8 Glucose 122 H (74-106) mg/dL Calcium 9.1 (8.5-10.1) mg/dL Troponin I High Sens 4.8 (4.0-51.3) pg/mL ECG Data Attestation: I personally reviewed and interpreted this ECG as follows: (EKG on my interpretation shows normal sinus rhythm without acute change and a rate of 65) Discharge Plan Discharge Chief Complaint: Syncope Clinical Impression: Syncope Patient Disposition: Home, Self-Care Time of Disposition Decision: 08:34 Condition: Good Mode of Transportation: Private Vehicle Prescriptions / Home Meds: No Action tamsulosin 0.4 mg capsule 0.4 mg PO Q24H Patient Comments: for 14 days ciprofloxacin HCl 500 mg Tablet 500 mg PO BID Qty: 20 0RF pantoprazole [Protonix] 40 mg tablet,delayed release (DR/EC) 40 mg PO DAILY Qty: 30 11RF hyoscyamine sulfate [Levsin/SL] 0.125 mg tablet, sublingual 0.125 mg PO Q6H MDD 4 PRN (Reason: dyspepsia) Qty: 30 0RF furosemide 40 mg tablet ferrous sulfate [iron] 325 mg (65 mg iron) tablet 325 mg PO BID mecobalamin (vitamin B12) 1,000 mcg tablet,chewable 1,000 mcg PO DAILY Instructions: Syncope (ED) Stand Alone Forms: Portal Instructions Referrals: KASEY MARLEY [Primary Care Provider] - 1 week
[2023-07-12 07:23] LABS: Basophils Percent Auto 0.5 % (0.2-2.0); Eosinophils Absolute Auto 0.1 10^3/uL (0.0-0.7); Eosinophils Percent Auto 2.2 % (0.9-7.0); Hematocrit 35.1 % (36.0-48.0); Hemoglobin 10.2 g/dL (12.0-16.0); Immature Granulocytes Abs Auto 0.01 10^3/uL (0.00-0.03); Immature Granulocytes Pct Auto 0.2 % (0.0-0.5); Lymphocytes Absolute Auto 1.1 10^3/uL (1.2-3.8); Lymphocytes Percent Auto 18.5 % (20.5-60.0); Mean Corpuscular HGB Conc 29.1 g/dL (29.9-35.2); Mean Corpuscular Hemoglobin 25.5 pg (26.7-34.0); Mean Corpuscular Volume 87.8 fL (81.0-99.0); Mean Platelet Volume 8.6 fL (9.5-13.5); Monocytes Absolute Auto 0.3 10^3/uL (0.3-0.8); Monocytes Percent Auto 5.5 % (1.7-12.0); Neutrophils Absolute Auto 4.4 10^3/uL (1.4-6.5); Neutrophils Percent Auto 73.1 % (43.0-75.0); Platelet Count 310 10^3/uL (150-450); Red Cell Distribution Width 15.9 % (11.0-15.0)
--- OUTSIDE RECORDS SUMMARY | 2023-07-12 07:36 | XMS_ITS | CCD ---
Author Name Unknown Address [address] [place] [address] Organization [facility] Care Team Providers Care Ladle Cleaner Name Role Phone Unavailable Primary Care Provider [...] Unavailable YESIKA, BALBINA J Primary Care Physician Balbina Napoles Unavailable Unavailable Unavailable MD Chalo [...] Unavailable Justin Marley MD Primary Care Provider [phone] Allergies Allergy Classification Reported Allergen(s) Allergy Type Date of Onset Reaction(s) Facility (15 sources) prednisoLONE; Translations: [PREDNISOLONE] Drug Allergy 3 Hives [facility] (20 sources) valACYclovir; Translations: [valacyclovir] Drug Allergy 2 hives, Weal (disorder) [facility] (20 sources) predniSONE; Translations: [prednisone] Drug Allergy 2 Weal (disorder), Hives [facility] (1 source) predniSONE Drug Allergy [facility] (2 sources) valACYclovir; Translations: [Valtrex] Drug Allergy [facility] (2 sources) Prednisone Allergy to substance 2 [facility] (2 sources) traMADol Drug Allergy 4 [facility] (2 sources) valACYclovir Drug Allergy 4 [facility] Medications Current Medications Medication Drug Class(es) Dates Sig (Normalized) Sig (Original) acetaminophen 500 mg oral tablet (2 sources) Start: 10-12-2022 End: 10-26-2022 take 2 tablets by mouth every six hours acetaminophen (TYLENOL EXTRA STRENGTH) 500 mg tablet Take 2 tablets by mouth every 6 hours for 14 days. 112 tablet 0 10/12/2022 10/26/2022 Active Comment on above: Take 2 tablets by [facility] every 6 hours for 14 days. acetaminophen 325 mg / HYDROcodone bitartrate 5 mg oral tablet (2 sources) Opioid Agonist Start: 06-18-2022 acetaminophen-hydroc odone 325 mg-5 mg oral tablet 1 tab(s), Oral, q4hr Pain, 7 tab(s), Refill(s) 0, [id number], 160, cm, 06/11/22 9:42:00 EST, Height/Length Dosing, [...] Comment on above: Take 1 capsule by [facility] twice daily. duloxetine 60 mg Cap-DR (5 [...] on above: Take 1 capsule by [facility] twice daily for 7 days. Take [...] Comment on above: Take 1 tablet by [facility] every 6 hours as needed for pain for up to 3 days. rOPINIRole 0.5 mg oral tablet (20 sources) Nonergot Dopamine Agonist Start: 03-31-2022 take 2 tablets by mouth three times daily ropinirole 0.5 mg Tab 1 mg = 2 tab(s), Oral, TID, for restless leg syndrome, Refills(s) 0 Start Date: 03/31/22 Status: Ordered Start: 02-02-2022 take 1 tablet by [facility] once daily at bedtime rOPINIRole HCl 0.5 [...] 14 tab(s), Refill(s) 0, [id number], 160, cm, 06/11/22 9:42:00 EST, Height/Length Dosing, [...] Comment on above: Take 1 capsule by [facility] three times daily for 3 days. Take 1 capsule by [facility] three times daily. DULoxetine 60 mg delayed [...] End: 10-07-2022 tamsulosin (FLOMAX) 0.4 mg T barndon 1 capsule by mouth once daily 30 [...] 03-31-2022 Chronic Other aftercare (1 source) Other half-way (current) drug therapy; Translations: [OTH INSURANCE VERIFICATION SPECIALIST CURRENT DRUG THERAPY] Onset: 2 Episodic Other [...] shadowing calculus. Stable severe left renal atrophy. Trophy Assembler: [facility] Transcribe Date/Time: Apr 26 2023 2:45P Dictated by : ALBERT FRIEDMAN MD This examination was interpreted and the report reviewed and electronically signed by: DAPHNE FAN MD on Apr 26 2023 4:07PM EST [id number] N Normal [facility] XR ABDOMEN 3V KUB W/OBLIQUES on 04-26-2023 [...] at the left mid and upper abdomen. Trophy Assembler: [facility] Transcribe Date/Time: Apr 26 2023 4:04P Dictated by : DAPHNE FAN MD This examination was interpreted and the report reviewed and electronically signed by: DAPHNE FAN MD on Apr 26 2023 4:11PM EST [id number] N Normal [facility] CNOVon 10-21-2022 CNOV Office Visit (UROSMN ) ELIZABETH IRVIN ([id number]) 1965 F Date Time Provider Department 10/21/22 [...] Odonnell MD Director, Surgical Stone Disease [facility] Pager [phone] 10/21/2022 Dana Renteria RN 10/21/2022 12:52 PM Signed Actual procedure/procedure scheduled: Yes Performing provider/scheduled provider: Yes Patient was roomed in: Q9- 05 Wheat Washer offered:Patient declines Patient arrived in the room [...] Education Session: None Instruction Provided To: Patient Kiln Hand Present: not applicable Discipline: Nursing Learning Topic: [...] and/or imag (more content not included)... Normal [facility] ANES POSTPROC EVALon 023 ANES POSTPROC EVAL HNO ID: [id number] Author: Gabi Dougherty MD Service: ? Author Type: Anesthesiologist Type: Anesthesia Postprocedure Evaluation Filed: 10/12/2022 3:28 PM Note Text: POST ANESTHESIA EVALUATION NOTE : 1965 Procedure Summary Date: 10/12/22 Room / Location: [address] [place] Anesthesia Start: 728 Anesthesia Stop: 1029 Procedure: [...] October 12, 2022 TIME: 3:28 PM CSN: [id number] Normal [facility] ANES PRE-OPon 10-12-2022 ANES PRE-OP HNO ID: [id number] Author: Gabi Dougherty MD Service: ? Author [...] and consent discussed: yes. Patient / Responsible Green Party agrees to proceed: yes Patient / [...] October 12, 2022 TIME: 9:08 AM CSN: [id number] Normal [facility] Bacteria Ur Culton 3 Bacteria identified Cx Nom (U) CULTURE, URINE: No growth (<1,000 CFU/ml) Normal [facility] Comment on above: Performed By: #### 6 30-4 ####[facility] LABCLIA [id number] [address] [place] CALCULI ANALYSISon 3 Calculus analysis [Interp] Normal [facility] Comment on above: Order Comment: Speci men Type: CALCULUS SPECIMENOrdering Facility: [facility] Address: [address] [place] [address] Result Comment: This test was developed and its performance characteristics determined by [facility] [place] ([facility]). It has not been cleared or approved by the FDA. [facility] is regulated under CLIA as qualified to perform high-complexity testing. This test is used for clinical purposes. It should not be regarded as investigational or for research. Performed By: #### C SA ####[facility] LABIA [id number] [address] STATES OF [facility] CALCULUS COLOR BROWN Normal [facility] Comment on above: Order Comment: Speci men Type: CALCULUS SPECIMENOrdering Facility: [facility] Address: [address] [place] [address] Performed By: #### C SA ####[facility] LABIA [id number] [address] OF [place] CALCULUS COMPOSITION 1 70% Calcium Oxala te Monohydrate Normal [facility] Comment on above: Order Comment: Speci men Type: CALCULUS SPECIMENOrdering Facility: [facility] Address: [address] [place] [address] Performed By: #### C SA ####[facility] LABIA [id number] [address] [place] CALCULUS COMPOSITION 2 20% Calcium Oxala te Dihydrate Normal [facility] Comment on above: Order Comment: Speci men Type: CALCULUS SPECIMENOrdering Facility: [facility] Address: [address] [place] [address] Performed By: #### C SA ####[facility] LABIA [id number] [address] [place] CALCULUS COMPOSITION 3 10% Minor Components Normal [facility] Comment on above: Order Comment: Speci men Type: CALCULUS SPECIMENOrdering Facility: [facility] Address: [address] [place] [address] Performed By: #### C SA ####[facility] LABCLIA [id number] [address] CALCULUS SIZE AND WT Multiple pieces. 0.0655 GRAMS Normal [facility] Comment on above: Order Comment: Speci men Type: CALCULUS SPECIMENOrdering Facility: [facility] Address: [address] [place] [address] Performed By: #### C SA ####[facility] LABCLIA [id number] [address] [place] CALCULUS TYPE CALCULI/CALCULUS Normal [facility] Comment on above: Order Comment: Speci men Type: CALCULUS SPECIMENOrdering Facility: [facility] Address: [address] [place] [address] Performed By: #### C SA ####[facility] LABCLIA [id number] [address] OF [place] OPERATIVE NOon 10-12-2022 OPERATIVE NO HNO ID: [id number] Author: Samy Odonnell MD Service: Urology Author Type: Physician Type: Operative Report Filed: 10/21/2022 11:54 AM Note Text: OPERATIVE/PROCEDURE REPORT LOG ID: [id number] Surgery/Procedure Date: 10/12/2022 Incision/Procedure Start Time: 8:36 AM Incision Close/Procedure End Time: 10:05 AM Surgeon(s)/Procedural ist(s) and Extract Wringer(s): Surgeon(s) and Role: * Samy Odonnell MD - Primary * Nori Jefferson MD - Resident - Assisting Procedure(s): Right Flexible ureteroscopy Percutaneous renal access Dilation of renal access tract Right percutaneous nephrolithotomy - Mini PCNL (16Fr) 2 cm max dimension [id number] right JJ stent insertion Physician time for fluoroscopic imaging and interpretation <1hr Anatomic Site: Right kidney Approach: Endoscopic Anesthesia: General Operative Indications: This is a 56 year old female with a right renal pelvis stone (15mm). After discussing the risks, benefits, and alternatives of the procedure the patient has elected to pursue management of their condition via the aforementioned surgery. Intraoperative Findings: Stone Ralls: Primary stone 15 mm renal pelvis; Additional [...] cystoscope was used to perform cystourethroscopy. A 5-rwandan open-ended ureteral catheter was used to intubate [...] out through the urethral meatus to gain igsznvy-olm-fkjyewq access. A 4-Samoan ureteral glide catheter was used to exchange the rmblhzg-sbu-deusjwy guidewire for an Amplatz superstiff wire. The [...] mls S (more content not included)... Normal [facility] Bacteria Ur Culton 3 Bacteria identified [...] technique or straight catheterization for???urine???collect ion. Normal [facility] Comment on above: Performed By: #### 6 30-4 ####[facility] LABCLIA [id number] BALDEVDana [facility] [id number] [address] [place] Basic metabolic 2000 panelon 09-28-2022 Anion gap [Moles/Vol] 8 mmol/L Low 9-18 [facility] Comment on above: Order Comment: Speci men Type: BLOOD SPECIMEN [facility] Address: [address] [address] Performed By: #### 2 4321-2 #### [facility] CLIA [id number] [address] [place] [address] Calcium [Mass/Vol] 9.5 mg/dL Normal 8.5-10.2 [facility] Comment on above: Order Comment: Speci men Type: BLOOD SPECIMEN [facility] Address: [address] [address] Performed By: #### 2 4321-2 #### [facility] CLIA [id number] [address] [place] [address] Chloride [Moles/Vol] 108 mmol/L High 97-105 [facility] Comment on above: Order Comment: Speci men Type: BLOOD SPECIMEN [facility] Address: [address] [address] Performed By: #### 2 4321-2 #### [facility] CLIA [id number] [address] [place] [address] 11921 CO2 [Moles/Vol] 24 mmol/L Normal 22-30 [facility] Comment on above: Order Comment: Speci men Type: BLOOD SPECIMEN [facility] Address: [address] [address] Performed By: #### 2 4321-2 #### [facility] CLIA [id number] [address] [place] [address]5 Creatinine [Mass/Vol] 1.62 mg/dL High 0.58-0.96 [facility] Comment on above: Order Comment: Speci men Type: BLOOD SPECIMEN [facility] Address: [address] [address] Performed By: #### 2 4321-2 #### [facility] CLIA [id number] [address] [place] [address] ESTIMATED GLOMERULAR FILTRATION RATE 37 mL/min/1.73m??? Low >=60 [facility] Comment on above: Order Comment: Tim jeff Type: BLOOD SPECIMEN [facility] Address: [address] [place] [address] Result Comment: Reema mated Glomerular Filtration Rate [...] GFR. Performed By: #### 2 4321-2 #### [facility] CLIA [id number] [address] [place] [address] Glucose [Mass/Vol] 89 mg/dL Normal 74-99 [facility] Comment on above: Order Comment: Tim jeff Type: BLOOD SPECIMEN [facility] Address: [address] [place] [address] Result Comment: The [place] Diabetes Association (ADA) provides guidance for cutoff [...] Standards of Medical Care in Diabetes 2016, [employer] Diabetes Association. Diabetes Care. 2016.39(Suppl 1). Performed By: #### 2 4321-2 #### [facility] CLIA [id number] [address] [place] [address] Potassium [Moles/Vol] 5.0 mmol/L Normal 3.7-5.1 [facility] Comment on above: Order Comment: Speci men Type: BLOOD SPECIMEN [facility] Address: [address] [place] [address] Performed By: #### 2 4321-2 #### [facility] CLIA [id number] [address] [place] [address] Sodium [Moles/Vol] 140 mmol/L Normal 136-144 [facility] Comment on above: Order Comment: Speci men Type: BLOOD SPECIMEN [facility] Address: [address] [place] [address] Performed By: #### 2 4321-2 #### [facility] CLIA [id number] [address] [place] [address] Urea nitrogen [Mass/Vol] 20 mg/dL Normal 7-21 [facility] Comment on above: Order Comment: Speci men Type: BLOOD SPECIMEN [facility] Address: [address] [place] [address] Performed By: #### 2 4321-2 #### [facility] CLIA [id number] [address] [place] [address] 19307 CBC W Auto Differential pane l (Bld)on 09-28-2022 Basophils (Bld) [#/Vol] 0.04 10*3/uL Normal <0.11 [facility] Comment on above: Order Comment: Speci men Type: BLOOD SPECIMENOrdering Facility: [facility] Address: [address] [place] [address] Performed By: #### 5 7021-8 ####[facility] [id number] [place] [address] Basophils/100 WBC (Bld) 1.0 % Normal [facility] Comment on above: Order Comment: Speci men Type: BLOOD SPECIMENOrdering Facility: [facility] Address: [address] [place] [address] Performed By: #### 5 7021-8 ####[facility] [id number] [place] [address] Differential cell count method Nom (Bld) Auto Normal [facility] Comment on above: Order Comment: Speci men Type: BLOOD SPECIMENOrdering Facility: [facility] Address: [address] [place] [address] Performed By: #### 5 7021-8 ####[facility] [id number] [place] [address] Eosinophils (Bld) [#/Vol] 0.12 10*3/uL Normal <0.46 [facility] Comment on above: Order Comment: Speci men Type: BLOOD SPECIMENOrdering Facility: [facility] Address: [address] [place] [address] Performed By: #### 5 7021-8 ####[facility]IA [id number] [place] [address] Eosinophils/100 WBC (Bld) 3.1 % Normal [facility] Comment on above: Order Comment: Speci men Type: BLOOD SPECIMENOrdering Facility: [facility] Address: [address] [place] [address] Performed By: #### 5 7021-8 ####[facility] [id number] [place] [address] Erythrocyte distribution width (RBC) [Ratio] 14.3 % Normal 11.5-15.0 [facility] Comment on above: Order Comment: Speci men Type: BLOOD SPECIMENOrdering Facility: [facility] Address: [address] [place] [address] Performed By: #### 5 7021-8 ####[facility] [id number] [place] [address] Hematocrit (Bld) [Volume fraction] 31.4 % Low 36.0-46.0 [facility] Comment on above: Order Comment: Speci men Type: BLOOD SPECIMENOrdering Facility: [facility] Address: [address] [place] [address] Performed By: #### 5 7021-8 ####[facility] [id number] [place] [address] Hemoglobin (Bld) [Mass/Vol] 9.3 g/dL Low 11.5-15.5 [facility] Comment on above: Order Comment: Speci men Type: BLOOD SPECIMENOrdering Facility: [facility] Address: [address] [place] [address] Performed By: #### 5 7021-8 ####[facility] [id number] [place] [address] Immature granulocytes (Bld) [#/Vol] 10*3/uL Normal <0.10 [facility] Comment on above: Order Comment: Speci men Type: BLOOD SPECIMENOrdering Facility: [facility] Address: [address] [place] [address] Performed By: #### 5 7021-8 ####[facility] [id number] [place] [address] Immature granulocytes/100 WBC (Bld) 0.3 % Normal [facility] Comment on above: Order Comment: Speci men Type: BLOOD SPECIMENOrdering Facility: [facility] Address: [address] [place] [address] Performed By: #### 5 7021-8 ####[facility] [id number] [place] [address] Lymphocytes (Bld) [#/Vol] 1.16 10*3/uL Normal 1.00-4.00 [facility] Comment on above: Order Comment: Speci men Type: BLOOD SPECIMENOrdering Facility: [facility] Address: [address] [place] [address] Performed By: #### 5 7021-8 ####[facility] [id number] [place] [address] Lymphocytes/100 WBC (Bld) 30.4 % Normal [facility] Comment on above: Order Comment: Speci men Type: BLOOD SPECIMENOrdering Facility: [facility] Address: [address] [place] [address] Performed By: #### 5 7021-8 ####[facility] [id number] [place] [address] MCH (RBC) [Entitic mass] 27.3 pg Normal 26.0-34.0 [facility] Comment on above: Order Comment: Speci men Type: BLOOD SPECIMENOrdering Facility: [facility] Address: [address] [place] [address] Performed By: #### 5 7021-8 ####[facility]IA [id number] [place] [address] MCHC (RBC) [Mass/Vol] 29.6 g/dL Low 30.5-36.0 [facility] Comment on above: Order Comment: Speci men Type: BLOOD SPECIMENOrdering Facility: [facility] Address: [address] [place] [address] Performed By: #### 5 7021-8 ####[facility]IA [id number] [place] [address] MCV (RBC) [Entitic vol] 92.1 fL Normal 80.0-100.0 [facility] Comment on above: Order Comment: Speci men Type: BLOOD SPECIMENOrdering Facility: [facility] Address: [address] [place] [address] Performed By: #### 5 7021-8 ####[facility]IA [id number] [place] [address] Monocytes (Bld) [#/Vol] 0.32 10*3/uL Normal <0.87 [facility] Comment on above: Order Comment: Speci men Type: BLOOD SPECIMENOrdering Facility: [facility] Address: [address] [place] [address] Performed By: #### 5 7021-8 ####[facility] [id number] [place] [address] Monocytes/100 WBC (Bld) 8.4 % Normal [facility] Comment on above: Order Comment: Speci men Type: BLOOD SPECIMENOrdering Facility: [facility] Address: [address] [address] Performed By: #### 5 7021-8 ####[facility] [id number] [place] [address] Neutrophils (Bld) [#/Vol] 2.17 10*3/uL Normal 1.45-7.50 [facility] Comment on above: Order Comment: Speci men Type: BLOOD SPECIMENOrdering Facility: [facility] Address: [address] [address] Performed By: #### 5 7021-8 ####[facility] [id number] [place] [address] Neutrophils/100 WBC (Bld) 56.8 % Normal [facility] Comment on above: Order Comment: Speci men Type: BLOOD SPECIMENOrdering Facility: [facility] Address: [address] [place], [place] [address] Performed By: #### 5 7021-8 ####[facility] [id number] [place] [address] Nucleated RBC (Bld) [#/Vol] 10*3/uL Normal <0.01 [facility] Comment on above: Order Comment: Speci men Type: BLOOD SPECIMENOrdering Facility: [facility] Address: [address] [address] Performed By: #### 5 7021-8 ####[facility] [id number] [place] [address] Nucleated RBC/100 WBC (Bld) [Ratio] 0.0 /100 WBC Normal [facility] Comment on above: Order Comment: Speci men Type: BLOOD SPECIMENOrdering Facility: [facility] Address: [address] [place] [address] Performed By: #### 5 7021-8 ####[facility] [id number] [place] [address] Platelet mean volume (Bld) [Entitic vol] 8.7 fL Low 9.0-12.7 [facility] Comment on above: Order Comment: Speci men Type: BLOOD SPECIMENOrdering Facility: [facility] Address: [address] [place] [address] Performed By: #### 5 7021-8 ####[facility] [id number] [place] [address] Platelets (Bld) [#/Vol] 338 10*3/uL Normal 150-400 [facility] Comment on above: Order Comment: Speci men Type: BLOOD SPECIMENOrdering Facility: [facility] Address: [address] [place] [address] Performed By: #### 5 7021-8 ####[facility] [id number] [place] [address] RBC (Bld) [#/Vol] 3.41 10*6/uL Low 3.90-5.20 [facility] Comment on above: Order Comment: Speci men Type: BLOOD SPECIMENOrdering Facility: [facility] Address: [address] [place] [address] Performed By: #### 5 7021-8 ####[facility] [id number] [place] [address] WBC (Bld) [#/Vol] 3.82 10*3/uL Normal 3.70-11.00 [facility] Comment on above: Order Comment: Speci men Type: BLOOD SPECIMENOrdering Facility: [facility] Address: [place] [address] Performed By: #### 5 7021-8 ####[facility] LABCLIA [id number] [place] [address] CNOVon 09-28-2022 CNOV Office Visit (UROLMN ) ELIZABETH IRVIN ([id number]) 1965 F Date Time Provider Department 09/28/22 1:30 PM MARLEY CHOE During your visit today, we recorded the following information about you: Pulse Blood pressure Weight Height 75/minute 119/79 60.8 kg 1.6 m Marley Gutierrez PA-C 09/28/2022 2:56 PM Signed [facility] PRE-OP NOTE Elizabeth [...] Signed: Yes. Pre-op HANDP Done by Physician Extract Wringer: Yes. PATIENT INSTRUCTIONS FOR SURGERY 1.) DO [...] + HTN. No history of angina, CHF, [place], cardiac surgery of stents. Respiratory: Negative for [...] problems. Neurologic: No history of TIA's, stroke, ENVIRONMENTAL MARKETING REPRESENTATIVE tumor, impaired sensorium, hemiplegia or paraplegia No neurological symptoms or problems. Hematology/Oncology: No history of bleeding or clotting disord (more content not included)... Normal [facility] HISTORY PHYSICALon 3 HISTORY PHYSICAL HNO ID: [id number] Author: Marley Brown PA-C Service: ? Author Type: Physician Extract Wringer Type: HANDP Filed: 09/28/2022 2:56 PM Note [...] + HTN. No history of angina, CHF, [place], cardiac surgery of stents. Respiratory: Negative for [...] problems. Neurologic: No history of TIA's, stroke, ENVIRONMENTAL MARKETING REPRESENTATIVE tumor, impaired sensorium, hemiplegia or paraplegia No [...] (no units) Date Value 09/07/2022 Negative Specific [place], Ur (no units) Date Value 09/07/2022 1.014 [...] ASSESSMENT AND (more content not included)... Normal [facility] CNPNon 09-24-2022 CNPN Telephone (UROLMN) ELIZABETH IRVIN ([id number]) 1965 F Date Time Provider Department 09/24/22 [...] [E21.3] Order(s):CONSULT TO ENDOCRINOLOGY [9007] Order #: [id number]: 1 FUTURE Prescriptions as of 09/24/2022 - [...] Encounter Status:Closed by MARLEY GUTIERREZ on 09/24/22 [facility] CNOVon 09-16-2022 CNOV Office Visit (UROSMN ) ELIZABETH IRVIN ([id number]) 1965 F Date Time Provider Department 09/16/22 12:15 PM SAMY ODONNELL During your visit today, we recorded the following information about you: Dede Story RN 09/16/2022 12:17 PM Signed Actual procedure/procedure scheduled: Yes Performing provider/scheduled provider: Yes Patient was roomed in: Q9- 09 Wheat Washer offered: Patient declines Patient arrived in the [...] Education Session: None Instruction Provided To: Patient Kiln Hand Present: not applicable Discipline: Nursing Learning Topic: [...] Odonnell MD Director, Surgical Stone Disease Formerly [facility] [place], [facility] Pager [phone] 09/16/2022 Dede Story RN 09/16/2022 12:30 PM [...] risk ass (more content not included)... Normal [facility] ANES POSTPROC EVALon 023 ANES POSTPROC EVAL HNO ID: [id number] Author: Florentino Murray DO Service: ? Author Type: Anesthesiologist Type: Anesthesia Postprocedure Evaluation Filed: 09/07/2022 5:03 PM Note Text: POST ANESTHESIA EVALUATION NOTE : 1965 Procedure Summary Date: 09/07/22 Room / Location: [address] Anesthesia Start: 1330 Anesthesia Stop: 1547 [...] September 07, 2022 TIME: 5:03 PM CSN: [id number] Normal [facility] ANES PRE-OPon 09-07-2022 ANES PRE-OP HNO ID: [id number] Author: Florentino Murray DO Service: ? Author [...] and consent discussed: yes. Patient / Responsible Green Party agrees to proceed: yes Patient / [...] September 07, 2022 TIME: 10:53 AM CSN: [id number] Normal [facility] BRIEF OP NOTon 09-07-2022 BRIEF OP NOT HNO ID: [id number] Author: Yasmeen Alexander MD Service: Urology Author Type: Fellow Type: Brief Op Note Filed: 09/07/2022 3:15 PM Note Text: BRIEF OPERATIVE / PROCEDURE NOTE LOG ID: [id number] Surgery/Procedure Date: 09/07/2022 Incision/Procedure Start Time: 1:53 PM Incision Close/Procedure End Time: Surgeon(s)/Procedural ist(s) and Extract Wringer(s): Surgeon(s) and Role: * Samy Odonnell MD [...] 2022 TIME: 3:15 PM PAGER/CONTACT #: Normal [facility] CALCULI ANALYSISon 3 Calculus analysis [Interp] Normal [facility] Comment on above: Order Comment: Speci men Type: CALCULUS SPECIMENOrdering Facility: [facility] Address: [address] [place] [address] Result Comment: This test was developed and its performance characteristics determined by [facility] [place] ([facility]). It has not been cleared or approved by the FDA. -[facility] is regulated under CLIA as qualified to perform high-complexity testing. This test is used for clinical purposes. It should not be regarded as investigational or for research. Performed By: #### C SA ####[facility] [id number] [address] STATES OF [facility] CALCULUS COLOR WHITE Normal [facility] Comment on above: Order Comment: Speci men Type: CALCULUS SPECIMENOrdering Facility: [facility] Address: [address] [place] [address] Performed By: #### C SA ####[facility] LABIA [id number] [address] [place] CALCULUS COMPOSITION 1 70% Calcium Oxala te Monohydrate Normal [facility] Comment on above: Order Comment: Speci men Type: CALCULUS SPECIMENOrdering Facility: [facility] Address: [address] [place] [address] Performed By: #### C SA ####[facility] LABIA [id number] [address] [place] CALCULUS COMPOSITION 2 20% Calcium Oxala te Dihydrate Normal [facility] Comment on above: Order Comment: Speci men Type: CALCULUS SPECIMENOrdering Facility: [facility] Address: [address] [place] [address] Performed By: #### C SA ####[facility] [id number] EUCL[place] [address] CALCULUS COMPOSITION 3 10% Minor Components Normal [facility] Comment on above: Order Comment: Speci men Type: CALCULUS SPECIMENOrdering Facility: [facility] Address: [address] [place] [address] Performed By: #### C SA ####[facility] LABCLIA [id number] [address] CALCULUS SIZE AND WT Multiple pieces. 0.1291 GRAMS Normal [facility] Comment on above: Order Comment: Speci men Type: CALCULUS SPECIMENOrdering Facility: [facility] Address: [address] [place] [address] Performed By: #### C SA ####[facility] LABCLIA [id number] [address] [place] CALCULUS TYPE CALCULI/CALCULUS Normal [facility] Comment on above: Order Comment: Speci men Type: CALCULUS SPECIMENOrdering Facility: [facility] Address: [address] [place] [address] Performed By: #### C SA ####[facility] LABIA [id number] [address] [place] CNOVon 09-07-2022 CNOV Office Visit (UROLMN ) ELIZABETH IRVIN ([id number]) 1965 F Date Time Provider Department 09/07/22 [...] + HTN. No history of angina, CHF, [place], cardiac surgery of stents. Respiratory: Negative for [...] problems. Neurologic: No history of TIA's, stroke, ENVIRONMENTAL MARKETING REPRESENTATIVE tumor, impaired sensorium, hemiplegia or paraplegia No [...] (no units) Date Value 08/18/2022 Negative Specific [place], Ur (no units) Date Value 08/18/2022 1.016 [...] 07, 2022 TIME: 8:59 AM PAGER/CONTACT #: [facility] PRE-OP NOTE Elizabeth Irvin is a 56 year old female. Pre-op Date: September 07, 2022 Date of Procedure: 09/07/22 Does the patien (more content not included)... Normal [facility] HISTORY PHYSICALon HISTORY PHYSICAL HNO ID: [id number] Author: Marley Brown PA-C Service: ? Author Type: Physician Extract Wringer Type: HANDP Filed: 09/07/2022 10:06 AM Note [...] + HTN. No history of angina, CHF, [place], cardiac surgery of stents. Respiratory: Negative for [...] problems. Neurologic: No history of TIA's, stroke, ENVIRONMENTAL MARKETING REPRESENTATIVE tumor, impaired sensorium, hemiplegia or paraplegia No [...] (no units) Date Value 08/18/2022 Negative Specific [place], Ur (no units) Date Value 08/18/2022 1.016 [...] 07, 2022 TIME: 8:59 AM PAGER/CONTACT #: [facility] PRE-OP NOTE Elizabeth [...] Pulse 7 (more content not included)... Normal [facility] OPERATIVE NOon 09-07-2022 OPERATIVE NO HNO ID: [id number] Author: Samy Odonnell MD Service: Urology Author Type: Physician Type: Operative Report Filed: 09/07/2022 3:56 PM Note Text: OPERATIVE/PROCEDURE REPORT LOG ID: [id number] Surgery/Procedure Date: 09/07/2022 Incision/Procedure Start Time: 1:53 PM Incision Close/Procedure End Time: Surgeon(s)/Procedural ist(s) and Extract Wringer(s): Surgeon(s) and Role: * Samy Odonnell MD - Primary * Kolton Reyes MD - Resident - Assisting * Yasmeen Alexander MD - Fellow Procedure(s): Cystourethroscopy Left retrograde pyelogram Left ureteroscopy and laser lithotripsy with stone basketing/manipulatio n Left JJ ureteric stent exchange Fluoroscopy < 1 hr Approach: Endoscopic Anesthesia: General Findings: Stone Ralls: Primary stone 10 mm mid ureter, significantly [...] Fluoroscopy C-arm was brought into the room. Flash Designer images were taken. A 22 Fr rigid [...] through the scope into the kidney. A [employer] single-use flexible ureteroscope was advanced over the [...] finish. SIGNATURE: Yasmeen Alexander MD PATIENT NAME: Eliazbeth Irvin DATE: September 07, 2022 TIME: 3:16 PM PAGER/CONTACT #: Samy Odonnell MD, FACS Director, Surgical Stone Disease, [facility] (more content not included)... Normal [facility] PTH INTACT BLDon 09-07-2022 Parathyrin.intact [Mass/Vol] 81 pg/mL High 15 - 65 pg/mL [facility] PTH-Intact SerPl-ncon - Parathyrin.intact [Mass/Vol] 81 pg/mL High 15-65 [facility] Comment on above: Order Comment: Speci men Type: BLOOD SPECIMENOrdering Facility: [facility] Address: [address] [place] [id number] Performed By: #### 2 731-8 ####[facility] LABCLIA [id number] [address] [place] URINALYSIS, REFLEX MICROSCOP ICon 09-07-2022 Bilirubin Ql (U) Negative Normal Negative [facility] Comment on above: Order Comment: Speci men Type: URINE SPECIMENOrdering Facility: [facility] Address: [address] [address] Performed By: #### L [id number] ####[facility] LABCLIA [id number] [address] [place] Clarity (Unsp spec) Cloudy Abnormal Clear [facility] Comment on above: Order Comment: Speci men Type: URINE SPECIMENOrdering Facility: [facility] Address: [address] [place] [address] Performed By: #### L [id number] ####[facility] LABCLIA [id number] [address] Color (U) Yellow Normal Yellow [facility] Comment on above: Order Comment: Speci men Type: URINE SPECIMENOrdering Facility: [facility] Address: [address] [place] [address] Performed By: #### L [id number] ####[facility] LABCLIA [id number] [address] Epithelial cells LM.HPF (Urine sed) [#/Area] Few Normal [facility] Comment on above: Order Comment: Speci men Type: URINE SPECIMENOrdering Facility: [facility] Address: [address] [place] [address] Performed By: #### L [id number] ####[facility] LABIA [id number] [place] [address] [place] Glucose Test strip (U) [Mass/Vol] Negative Normal Trace, Negative [facility] Comment on above: Order Comment: Speci men Type: URINE SPECIMENOrdering Facility: [facility] Address: [address] [place] [address] Performed By: #### L [id number] ####[facility] LABCLIA [id number] [place] [address] [place] Hemoglobin Ql (U) Trace Normal Negative, Trace [facility] Comment on above: Order Comment: Speci men Type: URINE SPECIMENOrdering Facility: [facility] Address: [address] [place] [address] Performed By: #### L [id number] ####[facility] LABCLIA [id number] [place] [address] [place] Ketones Ql (U) Negative Normal Negative, Trace [facility] Comment on above: Order Comment: Speci men Type: URINE SPECIMENOrdering Facility: [facility] Address: [address] [place] [address] Performed By: #### L [id number] ####[facility] LABCLIA [id number] [place] [address] [place] Leukocyte esterase Test strip Ql (U) 500 Nicholas/uL Abnormal Negative, 25 Nicholas/uL [facility] Comment on above: Order Comment: Speci men Type: URINE SPECIMENOrdering Facility: [facility] Address: [address] [place] [address] Performed By: #### L [id number] ####[facility] LABCLIA [id number] [place] [address] [place] Nitrite Ql (U) Negative Normal Negative [facility] Comment on above: Order Comment: Speci men Type: URINE SPECIMENOrdering Facility: [facility] Address: [address] [place], [place] [address] Performed By: #### L [id number] ####[facility] LABCLIA [id number] [place] [address] [place] pH (U) 6.0 [pH] Normal 5.0-8.0 [facility] Comment on above: Order Comment: Speci men Type: URINE SPECIMENOrdering Facility: [facility] Address: [address] [address] Performed By: #### L [id number] ####[facility] [id number] [address] Protein (U) [Mass/Vol] Trace Normal Trace , Negative [facility] Comment on above: Order Comment: Speci men Type: URINE SPECIMENOrdering Facility: [facility] Address: [address] [address] Performed By: #### L [id number] ####[facility] [id number] [place] [address] [place] RBC LM.HPF (Urine sed) [#/Area] 0-3 /HPF Normal 0-3 /HPF [facility] Comment on above: Order Comment: Speci men Type: URINE SPECIMENOrdering Facility: [facility] Address: [address] [place] [address] Performed By: #### L [id number] ####[facility] [id number] [place] [address] [place] Specific gravity (U) [Rel density] 1.014 Normal 1.005-1.030 [facility] Comment on above: Order Comment: Speci men Type: URINE SPECIMENOrdering Facility: [facility] Address: [address] [place], [place] [address] Performed By: #### L [id number] ####[facility] LABIA [id number] [address] [place] Urobilinogen Ql (U) Negative Normal Negative [facility] Comment on above: Order Comment: Speci men Type: URINE SPECIMENOrdering Facility: [facility] Address: [address] [place], [place] [address] Performed By: #### L [id number] ####[facility] LABIA [id number] [address] [place] WBC LM.HPF (Urine sed) [#/Area] /[HPF] Abnormal 0-5 /HPF [facility] Comment on above: Order Comment: Speci men Type: URINE SPECIMENOrdering Facility: [facility] Address: [address] [phone] Performed By: #### L [id number] ####[facility] LABCLIA [id number] [place] [address] [place] Bilirubin Ql (U) Negative Negative [facility] Clarity (Unsp spec) Cloudy Abnormal Clear [facility] Color (U) Yellow Yellow [facility] Epithelial cells LM.HPF (Urine sed) [#/Area] Few [facility] Glucose Test strip (U) [Mass/Vol] Negative Trace, Negative [facility] Hemoglobin Ql (U) Trace Negative, Trace [facility] Ketones Ql (U) Negative Negative, Trace [facility] Leukocyte esterase Test strip Ql (U) 500 Nicholas/uL Abnormal Negative, 25 Nicholas/uL [facility] Nitrite Ql (U) Negative Negative [facility] pH (U) 6.0 [pH] 5.0 - 8.0 [facility] Protein (U) [Mass/Vol] Trace Trace , Negative [facility] RBC LM.HPF (Urine sed) [#/Area] 0-3 /HPF 0-3 /HPF [facility] Specific gravity (U) [Rel density] 1.014 1.005 - 1.030 [facility] Urobilinogen Ql (U) Negative Negative [facility] WBC LM.HPF (Urine sed) [#/Area] /[HPF] Abnormal 0-5 /HPF [facility] Rabia 08-19-2022 CNPN Telephone (UROLMN) ELIZABETH IRVIN ([id number]) 1965 F Date Time Provider Department 08/19/22 [...] Status:Closed by MARISA WEST on 08/19/22 Normal [facility] Bacteria Ur Culton 3 Bacteria identified [...] technique or straight catheterization for???urine???collect ion. Normal [facility] Comment on above: Performed By: #### 6 30-4 ####[facility] LABIA [id number] [place] [address] [place] Urinalysis complete panel (U )on 08-18-2022 Bacteria LM.HPF (Urine sed) [#/Area] Rare Abnormal None Seen [facility] Comment on above: Order Comment: Speci men Type: URINE SPECIMENOrdering Facility: [facility] Address: [address] [id number] Performed By: #### 2 4356-8 ####[facility] LABIA [id number] [address] [place] Bilirubin Ql (U) Negative Normal Negative [facility] Comment on above: Order Comment: Speci men Type: URINE SPECIMENOrdering Facility: [facility] Address: [address] [place], [place] [address] Performed By: #### 2 4356-8 ####[facility] LABCLIA [id number] [place] [address] [place] Clarity (Unsp spec) Cloudy Abnormal Clear [facility] Comment on above: Order Comment: Speci men Type: URINE SPECIMENOrdering Facility: [facility] Address: [address] [place], [place] [address] Performed By: #### 2 4356-8 ####[facility] LABCLIA [id number] [place] [address] [place] Color (U) Light Yellow Normal Yellow [facility] Comment on above: Order Comment: Speci men Type: URINE SPECIMENOrdering Facility: [facility] Address: [address] [place], [place] [address] Performed By: #### 2 4356-8 ####[facility] LABIA [id number] [place] [address] [place] Epithelial cells LM.HPF (Urine sed) [#/Area] Few Normal [facility] Comment on above: Order Comment: Speci men Type: URINE SPECIMENOrdering Facility: [facility] Address: [address] [place], [place] [address] Performed By: #### 2 4356-8 ####[facility] LABIA [id number] [place] [address] [place] Glucose Test strip (U) [Mass/Vol] Negative Normal Trace, Negative [facility] Comment on above: Order Comment: Speci men Type: URINE SPECIMENOrdering Facility: [facility] Address: [address] [place], [place] [address] Performed By: #### 2 4356-8 ####[facility] LABCLIA [id number] [place] [address] [place] Hemoglobin Ql (U) 3+ Abnormal Negative, Trace [facility] Comment on above: Order Comment: Speci men Type: URINE SPECIMENOrdering Facility: [facility] Address: [address] [place] [address] Performed By: #### 2 4356-8 ####[facility] LABCLIA [id number] [place] [address] [place] Ketones Ql (U) Negative Normal Trace, Negative [facility] Comment on above: Order Comment: Speci men Type: URINE SPECIMENOrdering Facility: [facility] Address: [address] [place] [address] Performed By: #### 2 4356-8 ####[facility] LABCLIA [id number] [place] [address] [place] Leukocyte esterase Test strip Ql (U) 500 Nicholas/uL Abnormal Negative, 25 Nicholas/uL [facility] Comment on above: Order Comment: Speci men Type: URINE SPECIMENOrdering Facility: [facility] Address: [address] [place] [address] Performed By: #### 2 4356-8 ####[facility] LABCLIA [id number] [place] [address] [place] Nitrite Ql (U) Negative Normal Negative [facility] Comment on above: Order Comment: Speci men Type: URINE SPECIMENOrdering Facility: [facility] Address: [address] [place], [place] [address] Performed By: #### 2 4356-8 ####[facility] LABCLIA [id number] [place] [address] [place] pH (U) 6.0 [pH] Normal 5.0-8.0 [facility] Comment on above: Order Comment: Speci men Type: URINE SPECIMENOrdering Facility: [facility] Address: [address] [place] [address] Performed By: #### 2 4356-8 ####[facility] LABCLIA [id number] [address] STATES [facility] Protein (U) [Mass/Vol] 1+ Abnormal Trace , Negative [facility] Comment on above: Order Comment: Speci men Type: URINE SPECIMENOrdering Facility: [facility] Address: [address] [place] [address] Performed By: #### 2 4356-8 ####[facility] LABIA [id number] [place] [address] [place] RBC LM.HPF (Urine sed) [#/Area] /[HPF] Abnormal 0-3 /HPF [facility] Comment on above: Order Comment: Speci men Type: URINE SPECIMENOrdering Facility: [facility] Address: [address] [place] [address] Performed By: #### 2 4356-8 ####[facility] LABIA [id number] [address] STATES [facility] Specific gravity (U) [Rel density] 1.016 Normal 1.005-1.030 [facility] Comment on above: Order Comment: Speci men Type: URINE SPECIMENOrdering Facility: [facility] Address: [address] [place] [address] Performed By: #### 2 4356-8 ####[facility] LABIA [id number] [address] Urobilinogen Ql (U) Negative Normal Negative [facility] Comment on above: Order Comment: Speci men Type: URINE SPECIMENOrdering Facility: [facility] Address: [address] [place] [address] Performed By: #### 2 4356-8 ####[facility] LABCLIA [id number] [place] [address] [place] WBC LM.HPF (Urine sed) [#/Area] /[HPF] Abnormal 0-5 /HPF [facility] Comment on above: Order Comment: Speci men Type: URINE SPECIMENOrdering Facility: [facility] Address: [address] [place] [address] Performed By: #### 2 4356-8 ####[facility] [id number] [id number] [id number] [place] Rabia 08-13-2022 CNPN Telephone (UROLMN) ELIZABETH IRVIN ([id number]) 1965 F Date Time Provider Department 08/13/22 [...] Reyes - Fully Assessed 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 - DULoxetine (CYMBALTA) 60 mg capsule - rOPINIRole (REQUIP) 1 mg tablet - OZEMPIC 0.25 mg or 0.5 mg(2 mg/1.5 mL) pen Problem List As Of Date: 08/13/2022 (None) Encounter Status:Closed by MARISA WEST on 08/13/22 Normal [facility] NM RENAL FLOW/FXN W PHARMon 07-30-2022 NM [...] LEFT KIDNEY 9% AND RIGHT KIDNEY 91% Trophy Assembler: PSCB Transcribe Date/Time: Jul 30 2022 3:15P Dictated by : SHEEBA KASPER MD This examination was interpreted and the report reviewed and electronically signed by: SHEEBA KASPER MD on Jul 30 2022 3:19PM EST [id number] Normal [facility] NURSING PROGon 07-30-2022 NURSING PROG HNO ID: [id number] Author: Fernanda Koenig RN Service: Radiology Author Type: Registered Nurse Type: Nursing Progress Note Filed: 07/30/2022 2:18 PM Note Text: Patient here for a renal scan with lasix. Patient identified and allergies reviewed. Per order under scanned documents lasix 40 mg IV given at 1411. [facility] Coding Summary.on 07-29-2022 Coding Summary. CD:[id number] h0bWw+PGhlYWQ+NM0FHNB iV02vdWPjaS1iQ6OMMYiU SywgQVBQTElOSyIgbmFtZ N2rpMRcPXGo IC8+ZX6uTVTdWksymYUft 9O0xEG7O07dmb6hOHmcaN W1JSVoAeFxqvzir3pwaDv 6IDcuNmluOyBt NAPxeC90UOS4eT39Qg14g YDqbKRba4ujjAs4SiZoOF MqUOU6nLzxJHvyz4VkZJC zX01fqROho4L7 WOExgPzapXIeDtMxuLU6o F4pMAitzysuk8wcqruyJg j3zo92qLJzu1G9cLZ6S3K zmiY1BWPoyPSc XtfnjHKSkG0tbomdn1tmi mthFaTaXUFyQJj5HOx2KM LpwRhfPvBfVN28ZLQ6CZM ukdYvE7OjOQBa tVccOyD1p0H6Sq0XO7PTQ utiO4RZPZHUENcptMZ+PC 89yy46Q5UeSacrShd2KKT eNGR4xOL6pE7y BYOoMWilv1A6uBM4M1Ufl tAkzs5rm7tvHKTcPAivK6 2dtAMyk2E1OASlkIH0BAC tiFljEiCgdT46 Oyc+PGExeMyun4DuPvcaw 5wak2vqrSu1AjymHOSvhf HflAduFVW3x5SyQb2nFVQ mpUP9qYH6nI4j KlQkVmL3HXysA312FwSig FKzFqtgY65tD5KdoJX+PH TlBrc5AHZuqWocXR1iO6S hZGRpbmctbGVm wPkrBD6eASUgkhytPGNlr P1wSKEzO6n5CuHnBmR0DK faX2SxHVQngizqXt96jX9 lOiLoLuY2YCea Y2YgqnJ6OMXitQKlDWxjH HC6B60so1Q1MQJqJNCtTA E1vFY5mP4iqBectanesTR mdDsgdmVydGlj UEakCFxlC612BUSpzEifB kNvZGluZyBEYXRlOiAgMD MvMDgvMjAyMzwvdGQ+PHR pGFC8bIysGRZy uTBpRIbnOa8tiXabpCvoU H3yDHYdmsdvMDUbbM7mVF RbqNTdcIimIF7cZTDpjuq jo275ZfGfHCS5 MGMljXDgO2EmaH4qUlIbF FFvGGZtO9PeoAQhCTxuZ8 09RRlhAcK0TOCihcHoL3Y sLWFsaWduOiB0 x2P1Ld8Tm7YbbbogN6Aul QDiMgUcMdogCZu9A0ZrPh wvdHI+VK92GOKyBP10DNy 9DDG2mIilBEbt DNHcH4PfwR9jWzOuMCEsP GRkOyc+PHRhYmxlIHdpZH RoPScxMDAlJyBzdHlsZT0 dXz3zXRXdJNQp xJtouUJtEyMtd0gbNCXnD MhpGE7tsAztT7CbfIZ9ZN Gmq1a9Ap31D71uZ9TzlUX +SQRqjCR3bJE2 uQ3xOjQvMaA0SPusY417Q mWykNUmRdnpj5sos9tsuN i8OoF5EHHbzhFvqFcuGOP 9y7NfJb39B09e IHdpZHRoPSIxNSUiIHZhb Mwkqy0jkB3lLd3+PGNvbC G8rBS1dY1wKzErJbN8WKi rC366JkAupANg Wvxae2cgt7rtnPk1AdYgU IHqojCoiZdwJWC3s1CxEy 97N2NnnXezd5EiNka6or4 5kWJqt5C5xDI6 X0MvWCSxcfyiiDNhlGohO M2pLKWaocsjTTYbgM6aJX TvT3m6JrIeMbM0LXmdC9W csmL7MDBkdKBi EHAbhACUdA3kawznk4bhj qwoFkCnNRCmLVb6HNc2AZ CgvCdwMyDiVXO0GaY4WHR 1bPWbpJ0ujLtn cccbgN2zFfm+LDR1cJXsf QBDWQ1hTqicxML+PHRkIH R6aRavKMddARKsoS7aNGP kG5y5YlLtXrP4 DPheX2LiacG3ZDYvlMTkC ZFyvJXKqV9sxdoke8lcmo zxSlUoCITpVWq1OHz8NMT saWduOiBsZWZ0 DxT9VVH8kXAnuJ1xpEmus hkmsX2hQyw+QmlydGggRG X2PVm4Y5VqNvz8TTZmgCy xOO3ooKChBXmy Jy6egCocvSgoHG3eDOHne disk389KhUrv8zoJJEhuO CfAJsxURA8X06sm8Q5JEB zOFJwTGM7hEF8 uP8yqTdevuqwqVHgyJrmp oXvyWmkJHgdAIxjG008OL MmrAzlBfVuWVe6T7ZfPyx 2ZNKyiVerAI6u hIGbACxzIx5ovZrnsBqaF P6zFKAxineij587JiJes1 ekDGNymYYvWGhiCQV3J53 fh1Y9AULhDCUg KUF3hCE8vG6ouPjowtbjg GVmdDsgdmVydGljYWwtYW emC377IQPpyFmgYnOxeBt 4Z0HyCnc5KXIs iIziMR1kvVIuIEawKn8sb XnkxJjvRJ3dCIBvxsilb0 46RsNpu6gzDJNubXRqCWt sWRL8G90cv1O4 IGGtROTfMOH1uYG0mC8ax GlnbjogbGVmdDsgdmVydG ahBIfxEOfgL052RNObzWb nPlBhdGllbnQg RPdeGTt6F4BcPzkbaZI+P A11KQRwWL56lJZfcVVlq5 zrdHh0HvUvYDTiHBK4qPp xQJuya0LyGYTh T48qxEGiv3Y1XHPmoHfhv TGzXeHnqHY9lG0zGOezzs qkc6iuokbeFislc7rncw1 8yW81C70kSZjy ZHRoPSIzMCUiIHZhbGlnb c1neG8nSk2+MYLbbKI3pR O7hH8mMGKkHyE8LHdhR67 9InRvcCIvPjxj n1pzk8muySp0ByQ0BMSbj rJxmYlnXSD3m3IfOy27W6 9sIHdpZHRoPSIyMCUiIHZ qpBocyq9lyD3z Ii8+PKIknAL4yRH8kI2aB bVtBsM5FJdsT578LoMylF IuPrteI97aM8FuwWL+PHR nXfb3KKPbjTcw CG1ajMUiABzlFd1gOZM9T xNjCgLtWWlnY2XlYCWleq aypbasqXY6UVWqFEYkzA1 7Cv4vjJzsDJUw wWMPdC7inmuzr0pokckjP hMjEOIqDUv5DWf6MOIhjH liRvXwBIF6XpL1SIW2bGJ ymL7tvOpyspky mM9kF2AqVYYkoqldOi24i B9jYcGtMzX7PYdpYkv+Q1 VTJ8STVkmwE1OQVAqnUug vdGQ+PHRkIHN0 mBrnZPswXIAlfV3rQEKpM 6x9LbGlUtY9RYpnR7UgZO CmductWb43kQ5oEhXlQsI 5BNpnJ8XhulV5 RMPkgVVbXQgoGAE9D34kv 0T5MKFuPRKcUEJ3kUI6cQ 1hbGlnbjogbGVmdDsgdmV ydGljYWwtYWxp Y583MKQuoZziLzN5RtD6D fC5YnB1N0RqDto7JIGwlR soUM8hbCIiDYfgRd5zuAn ifExxTV2hSSFq cxfpQYIdsB1rDJKmtSSny EncFP2oYQAtneqjj523Sz CzLDJ5FZLfoGMmT5EyiZ2 yOiAjMDAwMDAw K6MorSDeOIzkT666APwkU vJ6PEImaxPkR1YhDAHiaT xgStU2j7H5Sf74CfGSDYP yczwvdGQ+PHRk VMV9fGkfKMzaNTWilQ9hV NVoI3r7VgDgBmZ8BRcqK6 TwXNFetbziWo50cN9aUcJ kStG4YYyuD4Be hiG6XHEbxYYwKZtwNME5Y 24zp5H3NAApINOgBRS4gP U9gG5utHvkxszblFWbdUd gdmVydGljYWwt VRtgB385SLWzzEwiSvUid WFsZTwvdGQ+BUFgVWS0xZ veDOisZJQkdM0nRNRhE1r 0MwHrZrY2BWuu O7LqOQKlhnzqMm71hB9wO lBzQyF9CSbcW8HpwuS4RE XfjUWnVNpzQFX0T17yw8R 6ZXQzYUKcHSS4 yUD8kT7kzTdhefychEImu DsgdmVydGljYWwtYWxpZ2 37CIJqoDcfBo08rLFztUx dauI9R5PeMcay dHI+DX51DUSeVD58zBFrx WLju3yryUq5TlWyKZUpLJ I0dObpSTzil7LzZJOeE84 xoOOsc3O1IDJe eBfinLFaQwJczUM2yQ0jZ Bzfpuyaz9cyzafkTnmne9 peab47zT61O06vPBmfAZQ oPSIzMCUiIHZh wDkvej9diA6dYd8+PGNvb PZ8yUG3qV2fFqPkDwN5XT vtC820QmRhzFPwBbecf1y as2lswFo0CkSi CPBeezIuuQpfPZS6p7MiF z22I76oZNlrBSVcOWCuQQ FzBDSenIficz3trO0qTx1 +GC5dg9gpyb01 dO83oIF+PBOgUBX7vDwpN LlkLURsiT3fSRzvSyY0TF ReXyQioD02rEJiBVikCj5 plVmqzWpgUB9v GTRjxkcaz154UtElh9rlX CAlqHBtXAciAVR0W86dj8 N8QAYsOQHrSJB6aRF4hK9 hbGlnbjogbGVm dDsgdmVydGljYWwtYWxpZ 602NCOhvVtfIiAsjZIpV5 dzuoSYRS3zOwxmfJR+PHR iXJY8fRycKJum TIRnkI0gKIZcJ9h6UhWkR yP7XDzfS3GencS2GJAryE UeLCVhfKAOfO4dfhyox3o vcjogIzAwMDAw MZa0PGv4MYZzcLydTmNxJ FC0CjC7MAQ3hDRepH8flU vqkvcwxJ9oUxh+RklOOjw vdGQ+PHRkIHN0 rZnpTTlsAATrqP0iQGIeC 4y7XdHeCqV5QKmfQ4Oenu O8FAMkcTNxOUWxcVZRzQ4 zfdpnk8oryldb UjQvUJSjNTg0BBe0JCHtl FkfYaRxPRP6UgS6LSR1dV UbnU3rfKqudtuwwB6oZgx +TVJOOjwvdGQ+ VOTkOZU8vFbkTZfhRCOok K8oUBMtT4w2ZhTvWtZ7XR lkO8VyoqY5LCRjrYXaSSK itBBPbU7msywa a6aqvtesPuBrJEWfJNr8Y Td1NQUuyEujJeQyOYJ0Ot K6AVS4kPFgdX8jbMnwomb axE0jVyw+UGF5 SIX5ZB66KG54T0JjEqkqc GFibGU+PHRhYmxlIHdpZH RoPScxMDAlJyBzdHlsZT0 kKs4wVLWrBRPq bGxh (more content not included)... Normal [facility] Physician Orderon 07-28-2022 Physician Order [id number]#1 .00CD:127 Normal [facility] Consultation Noteon 07-17-19 23 Consultation Note [id number]#1 .00CD:127 Normal [facility] 25(OH)D3 [facility] 2022 25-hydroxyvitamin D3 [Mass/Vol] 41.8 ng/mL Normal 31.0-80.0 [facility] Comment on above: Order Comment: Speci men Type: BLOOD SPECIMENOrdering Facility: [facility] Address: [address] [place] [address] Result Comment: Clas sification of 25 [place] Vitamin D status: Deficiency/Insufficiency: < or = 30 ng/ml. Sufficiency/Optimal Levels: 31-80 ng/mL Toxicity: > 100 ng/mL. Test performed by chemiluminescent immunoassay. Performed By: #### 1 989-3 ####[facility] LABCLIA [id number] [place] [address] [place] Bacteria Ur Culton [...] , Intermediate >32 , Resistant >64 Abnormal [facility] Comment on above: Performed By: #### 6 30-4 ####[facility] LABCLIA [id number] [place] [address] [place] CBC W Auto Differential pane l (Bld)on 07-14-2022 Basophils (Bld) [#/Vol] 0.03 10*3/uL Normal <0.11 [facility] Comment on above: Order Comment: Speci men Type: BLOOD SPECIMENOrdering Facility: [facility] Address: [address] Performed By: #### 5 7021-8 ####[facility] LABCLIA [id number] [address] [place] Basophils/100 WBC (Bld) 0.6 % Normal [facility] Comment on above: Order Comment: Speci men Type: BLOOD SPECIMENOrdering Facility: [facility] Address: [address] [place] [address] Performed By: #### 5 7021-8 ####[facility] LABCLIA [id number] [place] [address] [place] Differential cell count method Nom (Bld) Auto Normal [facility] Comment on above: Order Comment: Speci men Type: BLOOD SPECIMENOrdering Facility: [facility] Address: [address] [place], [place] [address] Performed By: #### 5 7021-8 ####[facility] LABCLIA [id number] [place] [address] [place] Eosinophils (Bld) [#/Vol] 0.18 10*3/uL Normal <0.46 [facility] Comment on above: Order Comment: Speci men Type: BLOOD SPECIMENOrdering Facility: [facility] Address: [address] Performed By: #### 5 7021-8 ####[facility] LABCLIA [id number] [place] [address] [place] Eosinophils/100 WBC (Bld) 3.7 % Normal [facility] Comment on above: Order Comment: Speci men Type: BLOOD SPECIMENOrdering Facility: [facility] Address: [address] [place], [place] [address] Performed By: #### 5 7021-8 ####[facility] LABCLIA [id number] [place] [address] [place] Erythrocyte distribution width (RBC) [Ratio] 15.7 % High 11.5-15.0 [facility] Comment on above: Order Comment: Speci men Type: BLOOD SPECIMENOrdering Facility: [facility] Address: [address] [place] [address] Performed By: #### 5 7021-8 ####[facility] [id number] [place] [address] [place] Hematocrit (Bld) [Volume fraction] 31.3 % Low 36.0-46.0 [facility] Comment on above: Order Comment: Speci men Type: BLOOD SPECIMENOrdering Facility: [facility] Address: [address] [place] [address] Performed By: #### 5 7021-8 ####[facility] [id number] [place] [address] [place] Hemoglobin (Bld) [Mass/Vol] 10.1 g/dL Low 11.5-15.5 [facility] Comment on above: Order Comment: Speci men Type: BLOOD SPECIMENOrdering Facility: [facility] Address: [address] [place] [address] Performed By: #### 5 7021-8 ####[facility] [id number] [place] [address] [place] Immature granulocytes (Bld) [#/Vol] 10*3/uL Normal <0.10 [facility] Comment on above: Order Comment: Speci men Type: BLOOD SPECIMENOrdering Facility: [facility] Address: [address] [place], [place] [address] Performed By: #### 5 7021-8 ####[facility] [id number] [place] [address] [place] Immature granulocytes/100 WBC (Bld) 0.2 % Normal [facility] Comment on above: Order Comment: Speci men Type: BLOOD SPECIMENOrdering Facility: [facility] Address: [address] Performed By: #### 5 7021-8 ####[facility] LABCLIA [id number] [place] [address] [place] Lymphocytes (Bld) [#/Vol] 1.77 10*3/uL Normal 1.00-4.00 [facility] Comment on above: Order Comment: Speci men Type: BLOOD SPECIMENOrdering Facility: [facility] Address: [address] [place], [place] [address] Performed By: #### 5 7021-8 ####[facility] LABCLIA [id number] [place] [address] [place] Lymphocytes/100 WBC (Bld) 36.0 % Normal [facility] Comment on above: Order Comment: Speci men Type: BLOOD SPECIMENOrdering Facility: [facility] Address: [address] [place], [place] [address] Performed By: #### 5 7021-8 ####[facility] LABCLIA [id number] [place] [address] [place] MCH (RBC) [Entitic mass] 27.8 pg Normal 26.0-34.0 [facility] Comment on above: Order Comment: Speci men Type: BLOOD SPECIMENOrdering Facility: [facility] Address: [address] Performed By: #### 5 7021-8 ####[facility] LABCLIA [id number] [place] [address] [place] MCHC (RBC) [Mass/Vol] 32.3 g/dL Normal 30.5-36.0 [facility] Comment on above: Order Comment: Speci men Type: BLOOD SPECIMENOrdering Facility: [facility] Address: [address] [place], [place] [address] Performed By: #### 5 7021-8 ####[facility] LABCLIA [id number] [place] [address] [place] MCV (RBC) [Entitic vol] 86.2 fL Normal 80.0-100.0 [facility] Comment on above: Order Comment: Speci men Type: BLOOD SPECIMENOrdering Facility: [facility] Address: [address] [place], [place] [address] Performed By: #### 5 7021-8 ####[facility] LABIA [id number] [place] [address] [place] Monocytes (Bld) [#/Vol] 0.39 10*3/uL Normal <0.87 [facility] Comment on above: Order Comment: Speci men Type: BLOOD SPECIMENOrdering Facility: [facility] Address: [address] [place], [place] [address] Performed By: #### 5 7021-8 ####[facility] LABIA [id number] [place] [address] [place] Monocytes/100 WBC (Bld) 7.9 % Normal [facility] Comment on above: Order Comment: Speci men Type: BLOOD SPECIMENOrdering Facility: [facility] Address: [address] [place], [place] [address] Performed By: #### 5 7021-8 ####[facility] LABIA [id number] [place] [address] [place] Neutrophils (Bld) [#/Vol] 2.53 10*3/uL Normal 1.45-7.50 [facility] Comment on above: Order Comment: Speci men Type: BLOOD SPECIMENOrdering Facility: [facility] Address: [address] [place], [place] [address] Performed By: #### 5 7021-8 ####[facility] LABIA [id number] [place] [address] [place] Neutrophils/100 WBC (Bld) 51.6 % Normal [facility] Comment on above: Order Comment: Speci men Type: BLOOD SPECIMENOrdering Facility: [facility] Address: [address] [place], [place] [address] Performed By: #### 5 7021-8 ####[facility] LABCLIA [id number] [place] [address] [place] Nucleated RBC (Bld) [#/Vol] 10*3/uL Normal <0.01 [facility] Comment on above: Order Comment: Speci men Type: BLOOD SPECIMENOrdering Facility: [facility] Address: [address] [place], [place] [address] Performed By: #### 5 7021-8 ####[facility] LABCLIA [id number] [place] [address] [place] Nucleated RBC/100 WBC (Bld) [Ratio] 0.0 /100 WBC Normal [facility] Comment on above: Order Comment: Speci men Type: BLOOD SPECIMENOrdering Facility: [facility] Address: [address] [place], [place] [address] Performed By: #### 5 7021-8 ####[facility] LABIA [id number] [place] [address] [place] Platelet mean volume (Bld) [Entitic vol] 9.4 fL Normal 9.0-12.7 [facility] Comment on above: Order Comment: Speci men Type: BLOOD SPECIMENOrdering Facility: [facility] Address: [address] [place] [address] Performed By: #### 5 7021-8 ####[facility] LABCLIA [id number] [place] [address] [place] Platelets (Bld) [#/Vol] 304 10*3/uL Normal 150-400 [facility] Comment on above: Order Comment: Speci men Type: BLOOD SPECIMENOrdering Facility: [facility] Address: [address] [place] [address] Performed By: #### 5 7021-8 ####[facility] LABIA [id number] [place] [address] [place] RBC (Bld) [#/Vol] 3.63 10*6/uL Low 3.90-5.20 [facility] Comment on above: Order Comment: Speci men Type: BLOOD SPECIMENOrdering Facility: [facility] Address: [address] [place] [address] Performed By: #### 5 7021-8 ####[facility] LABIA [id number] [address] [place] WBC (Bld) [#/Vol] 4.91 10*3/uL Normal 3.70-11.00 [facility] Comment on above: Order Comment: Speci men Type: BLOOD SPECIMENOrdering Facility: [facility] Address: [address] [place] [address] Performed By: #### 5 7021-8 ####[facility] LABIA [id number] [place] [address] [place] Basophils (Bld) [#/Vol] 0.03 10*3/uL <0.11 k/uL [facility] Basophils/100 WBC (Bld) 0.6 % [facility] Differential cell count method Nom (Bld) Auto [facility] Eosinophils (Bld) [#/Vol] 0.18 10*3/uL <0.46 k/uL [facility] Eosinophils/100 WBC (Bld) 3.7 % [facility] Erythrocyte distribution width (RBC) [Ratio] 15.7 % High 11.5 - 15.0 % [facility] Hematocrit (Bld) [Volume fraction] 31.3 % Low 36.0 - 46.0 % [facility] Hemoglobin (Bld) [Mass/Vol] 10.1 g/dL Low 11.5 - 15.5 g/dL [facility] Immature granulocytes (Bld) [#/Vol] <0.10 k/uL [facility] Immature granulocytes/100 WBC (Bld) 0.2 % [facility] Lymphocytes (Bld) [#/Vol] 1.77 10*3/uL 1.00 - 4.00 k/uL [facility] Lymphocytes/100 WBC (Bld) 36.0 % [facility] MCH (RBC) [Entitic mass] 27.8 pg 26.0 - 34.0 pg [facility] MCHC (RBC) [Mass/Vol] 32.3 g/dL 30.5 - 36.0 g/dL [facility] MCV (RBC) [Entitic vol] 86.2 fL 80.0 - 100.0 fL [facility] Monocytes (Bld) [#/Vol] 0.39 10*3/uL <0.87 k/uL [facility] Monocytes/100 WBC (Bld) 7.9 % [facility] Neutrophils (Bld) [#/Vol] 2.53 10*3/uL 1.45 - 7.50 k/uL [facility] Neutrophils/100 WBC (Bld) 51.6 % [facility] Nucleated RBC (Bld) [#/Vol] <0.01 k/uL [facility] Nucleated RBC/100 WBC (Bld) [Ratio] 0.0 /100 WBC [facility] Platelet mean volume (Bld) [Entitic vol] 9.4 fL 9.0 - 12.7 fL [facility] Platelets (Bld) [#/Vol] 304 10*3/uL 150 - 400 k/uL [facility] RBC (Bld) [#/Vol] 3.63 10*6/uL Low 3.90 - 5.2 0 m/uL [facility] WBC (Bld) [#/Vol] 4.91 10*3/uL 3.70 - 11. 00 k/uL [facility] CNOVon 07-14-2022 CNOV Office Visit (UROLMN ) ELIZABETH IRVIN ([id number]) 1965 F Date Time Provider Department 07/14/22 [...] based on size, location, hounsfield units and hult-rg-xcbpk distance: 0% 3. Ureteroscopy - risks of [...] with more than 50% of the total dlib-pf-yclj time of the visit devoted to patient counseling/coordinati on of care. 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] Other Visit Diagnoses:Hydronephro sis with urinary obstruction due to ureteral calculus [N13.2] Left flank pain [R10.9] Left renal atrophy [N26.1] Order(s):NM RENAL FLOW/FXN W PHARM [0318412] Order #: [id number] FUTURE CBC + DIFF [SQCBCDIF] Order #: [id number] FUTURE COMP METABOLIC PANEL [SQCMP] Order #: [id number] FUTURE PTH INTACT BLD [SQPTHI] Order #: [id number] FUTURE VITAMIN D 25 HYDROXY [SQVITD] Order #: [id number] FUTURE URIC ACID BLOOD [SQURIC] Order #: [id number] FUTURE CALCIUM IONIZED BLOOD [SQICA] Order #: [id number] FUTURE TYPE AND SCREEN,30 DAY [VHIPJJ69] Order #: [id number] FUTURE CONFIRM BLOOD TYPE [SQCONABO] Order #: [id number] FUTURE Prescriptions as of 07/15/2022 - lisinopril (ZESTRIL, PRINIVIL) 20 mg tablet Take by mouth. - DULoxetine (CYMBALTA) 60 mg capsule - rOPINIRole (REQUIP) 1 mg tablet - OZEMPIC 0.25 mg or 0.5 mg(2 mg/1.5 mL) pen Problem List As Of Date: 07/14/2022 (None) Disposition: Return for Nuclear re (more content not included)... Normal [facility] CONFIRM BLOOD TYPEon 023 ABO O [facility] Rh Nom (Bld) Positive [facility] ABO O Normal [facility] Comment on above: Order Comment: Speci men Type: BLOOD SPECIMEN [facility] Address: [address] [place] [address] Performed By: #### T SCR30 #### [facility]LOOD [facility] [id number] [address] [place] [address] [place] Rh Nom (Bld) Positive Normal [facility] Comment on above: Order Comment: Speci men Type: BLOOD SPECIMEN [facility] Address: [address] [place] [address] Performed By: #### T SCR30 #### CC MAIN BLOOD BANK [facility] [id number] [address] [place] [address] [place] Comprehensive metabolic 2000 panelon 07-14-2022 Albumin [Mass/Vol] 3.7 g/dL Low 3.9 - 4.9 g/dL [facility] ALP [Catalytic activity/Vol] 65 U/L 34 - 123 U/L [facility] ALT [Catalytic activity/Vol] 9 U/L 7 - 38 U/L [facility] Anion gap [Moles/Vol] 12 mmol/L 9 - 18 mmol/L [facility] AST [Catalytic activity/Vol] 17 U/L 13 - 35 U/L [facility] Bilirubin [Mass/Vol] 0.3 mg/dL 0.2 - 1 .3 mg/dL [facility] Calcium [Mass/Vol] 9.1 mg/dL 8.5 - 10. 2 mg/dL [facility] Chloride [Moles/Vol] 111 mmol/L High 97 - 10 5 mmol/L [facility] CO2 [Moles/Vol] 19 mmol/L Low 22 - 30 mmol/L [facility] Creatinine [Mass/Vol] 2.85 mg/dL High 0.58 - 0.96 mg/dL [facility] Estimated Glomerular Filtration Rate 19 mL/min/1.73m Low >=60 mL/min/1.73m [facility] Glucose [Mass/Vol] 80 mg/dL 74 - 99 mg/dL [facility] Potassium [Moles/Vol] 5.0 mmol/L 3.7 - 5.1 mmol/L [facility] Protein [Mass/Vol] 6.1 g/dL Low 6.3 - 8.0 g/dL [facility] Sodium [Moles/Vol] 142 mmol/L 136 - 144 mmol/L [facility] Urea nitrogen [Mass/Vol] 28 mg/dL High 7 - 21 mg/dL [facility] Albumin [Mass/Vol] 3.7 g/dL Low 3.9-4.9 [facility] Comment on above: Order Comment: Speci men Type: BLOOD SPECIMENOrdering Facility: [facility] Address: [address] [address] Performed By: #### 2 4323-8, 27305-31, 3083-05 ####[facility] LABCLIA [id number] [address] [facility] ALP [Catalytic activity/Vol] 65 U/L Normal 34-123 [facility] Comment on above: Order Comment: Speci men Type: BLOOD SPECIMENOrdering Facility: [facility] Address: [address] [address] Performed By: #### 2 4323-8, 273-8, 3083-1 ####[facility] LABCLIA [id number] [place] [address] [place] ALT [Catalytic activity/Vol] 9 U/L Normal 7-38 [facility] Comment on above: Order Comment: Speci men Type: BLOOD SPECIMENOrdering Facility: [facility] Address: [address] [place] [address] Performed By: #### 2 4323-8, 2731-8, 3083-1 ####[facility] LABCLIA [id number] [place] [address] [place] Anion gap [Moles/Vol] 12 mmol/L Normal 9-18 [facility] Comment on above: Order Comment: Speci men Type: BLOOD SPECIMENOrdering Facility: [facility] Address: [address] [place] [address] Performed By: #### 2 4323-8, 273-8, 3083-1 ####[facility] LABCLIA [id number] [address] [place] AST [Catalytic activity/Vol] 17 U/L Normal 13-35 [facility] Comment on above: Order Comment: Speci men Type: BLOOD SPECIMENOrdering Facility: [facility] Address: [address] [place] [address] Performed By: #### 2 4323-8, 273-8, 3083-1 ####[facility] LABCLIA [id number] [address] [place] Bilirubin [Mass/Vol] 0.3 mg/dL Normal 0.2-1.3 [facility] Comment on above: Order Comment: Speci men Type: BLOOD SPECIMENOrdering Facility: [facility] Address: [address] [place] [address] Performed By: #### 2 4323-8, 273-8, 3083-1 ####[facility] LABCLIA [id number] [address] [id number] [address] [place] Calcium [Mass/Vol] 9.1 mg/dL Normal 8.5-10.2 [facility] Comment on above: Order Comment: Speci men Type: BLOOD SPECIMENOrdering Facility: [facility] Address: [address] [place] [address] Performed By: #### 2 4323-8, 2731-8, 3083-1 ####[facility] LABCLIA [id number] [place] [address] [place] Chloride [Moles/Vol] 111 mmol/L High 97-105 [facility] Comment on above: Order Comment: Speci men Type: BLOOD SPECIMENOrdering Facility: [facility] Address: [address] [place] [address] Performed By: #### 2 4323-8, 2730-8, 3083-1 ####[facility] LABCLIA [id number] [place] [address] [place] CO2 [Moles/Vol] 19 mmol/L Low 22-30 [facility] Comment on above: Order Comment: Speci men Type: BLOOD SPECIMENOrdering Facility: [facility] Address: [address] [place] [address] Performed By: #### 2 4323-8, 2730-8, 3083-1 ####[facility] LABCLIA [id number] [place] [address] [place] Creatinine [Mass/Vol] 2.85 mg/dL High 0.58-0.96 [facility] Comment on above: Order Comment: Speci men Type: BLOOD SPECIMENOrdering Facility: [facility] Address: [address] [place] [address] Performed By: #### 2 4323-8, 2730-8, 4-1 ####[facility] LABCLIA [id number] [place] [address] [place] ESTIMATED GLOMERULAR FILTRATION RATE 19 mL/min/1.73m??? Low >=60 [facility] Comment on above: Order Comment: Specsadiq jeff Type: BLOOD SPECIMENOrdering Facility: [facility] Address: [place] [address] Result Comment: Reema mated Glomerular Filtration Rate [...] Performed By: #### 2 4323-8, 2730-8, 3083- ####[facility] LABIA [id number] [place] [id number] [place] Glucose [Mass/Vol] 80 mg/dL Normal 74-99 [facility] Comment on above: Order Comment: Tim jeff Type: BLOOD SPECIMENOrdering Facility: [facility] Address: [address] [place] [address] Result Comment: The [place] [employer] (ADA) provides guidance for cutoff [...] Standards of Medical Care in Diabetes 2016, [place] [employer]. Diabetes Care. 2016.39(Suppl 1). Performed By: #### 2 4323-8, 1-8, 3083-1 ####[facility] LABIA [id number] [address] [address] [place] Potassium [Moles/Vol] 5.0 mmol/L Normal 3.7-5.1 [facility] Comment on above: Order Comment: Speci men Type: BLOOD SPECIMENOrdering Facility: [facility] Address: [address] [address] Performed By: #### 2 4323-8, 8, 3083-05 ####[facility] LABCLIA [id number] [place] [address] [place] Protein [Mass/Vol] 6.1 g/dL Low 6.3-8.0 [facility] Comment on above: Order Comment: Speci men Type: BLOOD SPECIMENOrdering Facility: [facility] Address: [address] [address] Performed By: #### 2 4323-8, 8, 3083-05 ####[facility] LABIA [id number] [place] [address] [place] Sodium [Moles/Vol] 142 mmol/L Normal 136-144 [facility] Comment on above: Order Comment: Speci men Type: BLOOD SPECIMENOrdering Facility: [facility] Address: [address] [address] Performed By: #### 2 4323-8, 2730-12, 3083-05 ####[facility] LABIA [id number] [place] [address] [place] Urea nitrogen [Mass/Vol] 28 mg/dL High 7-21 [facility] Comment on above: Order Comment: Speci men Type: BLOOD SPECIMENOrdering Facility: [facility] Address: [address] Performed By: #### 2 4323-8, 8, 3083-05 ####[facility] LABIA [id number] [place] [address] [place] PTH INTACT BLDon 07-14-2022 Parathyrin.intact [Mass/Vol] 125 pg/mL High 15 - 65 pg/mL [facility] PTH-Intact SerPl-mCncon 02-2 1-2023 Parathyrin.intact [Mass/Vol] 125 pg/mL High 15-65 [facility] Comment on above: Order Comment: Speci men Type: BLOOD SPECIMENOrdering Facility: [facility] Address: [address] [place] [address] Performed By: #### 2 4323-8, 2731-8, 3084-1 ####[facility] LABCLIA [id number] [address] [place] TYPE AND SCREEN,30 DAYon ABO O [facility] HIstorical Ab Scr Status Negative [facility] Rh Nom (Bld) Positive [facility] ABO O Normal [facility] Comment on above: Order Comment: Speci men Type: BLOOD SPECIMEN [facility] Address: [address] [place] [address] Performed By: #### T [id number] #### [facility] CLIA [id number] OF [facility] HISTORICAL AB SCR STATUS Negative Normal [facility] Comment on above: Order Comment: Speci men Type: BLOOD SPECIMEN [facility] Address: [address] [place] [address] Performed By: #### T [id number] #### [facility] CLIA [id number] [address] OF [facility] Rh Nom (Bld) Positive Normal [facility] Comment on above: Order Comment: Speci men Type: BLOOD SPECIMEN [facility] Address: [address] [place] [address] Performed By: #### T [id number] #### [facility] CLIA [id number] [address] [place] URIC ACID BLOODon 07-14-2022 Urate [Mass/Vol] 6.7 mg/dL High 2.5 - 6.6 mg/dL [facility] URINALYSIS, REFLEX MICROSCOP ICon 07-14-2022 Bilirubin Ql (U) Negative [facility] Comment on above: Order Comment: Speci men Type: URINE SPECIMENOrdering Facility: [facility] Address: [address] Performed By: #### L [id number] ####[facility] LABCLIA [id number] [place] [address] [place] Clarity (Unsp spec) Cloudy Abnormal Clear [facility] Comment on above: Order Comment: Speci men Type: URINE SPECIMENOrdering Facility: [facility] Address: [address] [place] [address] Performed By: #### L [id number] ####[facility] LABCLIA [id number] [place] [address] [place] Color (U) Light [place] Abnormal Yellow [facility] Comment on above: Order Comment: Speci men Type: URINE SPECIMENOrdering Facility: [facility] Address: [address] Performed By: #### L [id number] ####[facility] LABCLIA [id number] [place] [address] [place] Epithelial cells LM.HPF (Urine sed) [#/Area] Few Normal [facility] Comment on above: Order Comment: Speci men Type: URINE SPECIMENOrdering Facility: [facility] Address: [address] Performed By: #### L [id number] ####[facility] LABCLIA [id number] [place] [address] [place] Glucose Test strip (U) [Mass/Vol] Negative Normal Trace, Negative [facility] Comment on above: Order Comment: Speci men Type: URINE SPECIMENOrdering Facility: [facility] Address: [address] [place] [place] [address] Performed By: #### L [id number] ####[facility] LABCLIA [id number] [place] [address] [place] Hemoglobin Ql (U) 2+ Abnormal Negative, Trace [facility] Comment on above: Order Comment: Speci men Type: URINE SPECIMENOrdering Facility: [facility] Address: [address] [place] [address] Performed By: #### L [id number] ####[facility] LABCLIA [id number] [place] [address] [place] Hyaline casts (Urine sed) [#/Area] 1-3 /LPF Abnormal 0 /LPF [facility] Comment on above: Order Comment: Speci men Type: URINE SPECIMENOrdering Facility: [facility] Address: [address] [place] [address] Performed By: #### L [id number] ####[facility] LABCLIA [id number] [place] [address] [place] Ketones Ql (U) Negative Normal Negative, Trace [facility] Comment on above: Order Comment: Speci men Type: URINE SPECIMENOrdering Facility: [facility] Address: [address] [place] [address] Performed By: #### L [id number] ####[facility] LABCLIA [id number] [place] [address] [place] Leukocyte esterase Test strip Ql (U) 500 Nicholas/uL Abnormal Negative, 25 Nicholas/uL [facility] Comment on above: Order Comment: Speci men Type: URINE SPECIMENOrdering Facility: [facility] Address: [address] [place] [address] Performed By: #### L [id number] ####[facility] LABCLIA [id number] [place] [address] [place] Nitrite Ql (U) Negative Normal Negative [facility] Comment on above: Order Comment: Speci men Type: URINE SPECIMENOrdering Facility: [facility] Address: [address] [place] [address] Performed By: #### L [id number] ####[facility] LABIA [id number] [address] STATES [facility] pH (U) 5.5 [pH] Normal 5.0-8.0 [facility] Comment on above: Order Comment: Speci men Type: URINE SPECIMENOrdering Facility: [facility] Address: [address] [place] [address] Performed By: #### L [id number] ####[facility] LABIA [id number] [place] [address] [place] Protein (U) [Mass/Vol] 1+ Abnormal Trace , Negative [facility] Comment on above: Order Comment: Speci men Type: URINE SPECIMENOrdering Facility: [facility] Address: [address] [place] [address] Performed By: #### L [id number] ####[facility] LABIA [id number] [address] [place] RBC LM.HPF (Urine sed) [#/Area] /[HPF] Abnormal 0-3 /HPF [facility] Comment on above: Order Comment: Speci men Type: URINE SPECIMENOrdering Facility: [facility] Address: [address] [place], [place] [address] Performed By: #### L [id number] ####[facility] LABIA [id number] [address] [place] Specific gravity (U) [Rel density] 1.016 Normal 1.005-1.030 [facility] Comment on above: Order Comment: Speci men Type: URINE SPECIMENOrdering Facility: [facility] Address: [address] [place], [place] [address] Performed By: #### L [id number] ####[facility] LABIA [id number] [address] [id number] [address] [place] Urobilinogen Ql (U) Negative Normal Negative [facility] Comment on above: Order Comment: Speci men Type: URINE SPECIMENOrdering Facility: [facility] Address: [address] [place] [address] Performed By: #### L [id number] ####[facility] [id number] [place] [address] [place] WBC LM.HPF (Urine sed) [#/Area] /[HPF] Abnormal 0-5 /HPF [facility] Comment on above: Order Comment: Speci men Type: URINE SPECIMENOrdering Facility: [facility] Address: [address] [place] [address] Performed By: #### L [id number] ####[facility] LABIA [id number] [place] [address] [place] Urate SerPl-mCncon 3 Urate [Mass/Vol] 6.7 mg/dL High 2.5-6.6 [facility] Comment on above: Order Comment: Speci men Type: BLOOD SPECIMENOrdering Facility: [facility] Address: [address] [place] [address] Performed By: #### 2 4323-8, 2731-8, 3084-1 ####[facility] [id number] [place] [address] [place] VITAMIN D 25 HYDROXYon 07-14 25-hydroxyvitamin D3 [Mass/Vol] 41.8 ng/mL 31.0 - 80.0 ng/mL [facility] Patient Educationon 07-07-19 Patient Education Urology Dietary [...] Rhubarb. ? Beets. ? Potato chips and rwandan fries. ? Nuts. ? If you regularly take a diuretic medicine, make sure to eat at least 1?2 fruits or vegetables high in potassium each day. These include: ? Avocado. ? Banana. ? [place], prune, carrot, or tomato juice. ? Baked [...] Salad dr (more content not included)... Normal [facility] RAD - MISCon 07-07-2022 RAD - MIS [id number]#1 .00CD:127 Normal [facility] Urology Office/Clinic Noteon 07-07-2022 Urology Office/Clinic Note [...] to Dr. Odonnell. -pt to go to [facility] to get CD for CT scan [...] refer her to Dr. Odonnell at the [facility]. She also has a very large stone in the right kidney which is approaching 2 cm and will most likely need a PCNL on that side as well. I have instructed her to pickle sorter her CAT scan and retrograde pyelogram onto a CD so she can take thi (more content not included)... Normal [facility] Comment on above: Result Comment: Elec tronically Signed By: Chalo BLUM MD\.br\Date and Time Signed: 07/07/22 10:09 EST\.br\Electronically Co-Signed By: Jennifer Hamilton\.br\Date and Time Co-Signed: 07/07/22 10:02 EST\.br\Electronically Co-Signed By: Jennifer Hamilton\.br\Date and Time Co-Signed: 07/07/22 10:03 EST XR KUBon 07-06-2022 XR KUB [facility] [place] [address] XRay Report Signed Patient: Elizabeth Irvin MR#: [id number] : 1965 Acct:[id number] Age/Sex: 56 / F ADM Date: 07/06/22 Loc: XD Room: Type: [facility] Attending Dr: Chalo Blum MD Copies [...] Michael Cheung M.D.07/06/2022 3:03 PM Dictation Location: [place] [address] Transcribed By: [facility] 07/06/22 1503 Dictated By: Michael Cheung DO 07/06/22 1500 Signed By: 07/06/22 1503 [facility] IntraOperative Documentson 0 06-23-2022 IntraOperative Documents [id number]# 1.00CD:127 Normal [facility] Postoperative Documentson Postoperative Documents [id number]# 1.00CD:127 Normal [facility] Coding Summary.on 06-22-2022 Coding Summary. CD:[id number] G h0bWw+PGhlYWQ+OU9JBNS qT16tcJAslW4UE8nXSQ4R OHRMVPNRHA8LOU2qlXQ6G EzfZ5QtzdXr MkznvWSsTQ58WRs1WLM9g HtrAGyooD7kjLIgE7b9If LlST71xV31ATvhVXVsQrO 3LjZpbjsgbWFy L6oqDyAvuRPlBih+PHRhY mxlIHdpZHRoPScxMDAlJy FgtVusIY4wJx9zJYXoHQO vbGxhcHNlOiBj t4byLQVlLVjzVY6gnKkjR 4XlhQA1SSRzz3t4Ph42sV I+TYBpNZE0zFimVDocm32 3QkLmm6fqGWG3 jUKaSQhpVRB8T34cs0T7Q AAkBULhEST4bGJ6kA6zcW ubjezmQ7LvaABqPwS8WRX 6dCOjjT3luYzw fvywhA3gQjp+V57UTU2DR IEUWN8VOyc2J4MxUffiuT I+PN90IJBoZW26aEWudPM la5euzGm3WxNy VPWlCJJ0jNjdHFdjv3GpE LHpW34rfCKsc4P3FRRfsF vgqAFhBbTmxYW8vI2yIZv jjnthb5ugzoqd Xxbms7jfxu51sV43J33hS MyfXNOaRFH8HNVbKPQsbL ftol6cbN3gSm6+HYorf7z nt6iijWy6OsTh XBDnvhSicRklHHI5e7EuL l36A8KoiVniz4PpLjn8xq 94uACfw4R0kES2BZfxEVR hkY6xLFraPoC9 JOLoObEuyX28jYOdOUxhX g2xzLwpiIstWL9qKXRyay pxKLNspE7lIXTpwEKtiDa dWL4yTDKojbvm d949TcTqCVL9NDSnkTWgS 8SlhN8iNcUlLSZvQZXeO3 PaqYKnKJahT262MHntJfB 6UDJkhbWtG2Wm CAQxhFrcGfP8t9V7Qj6We 3JrxkkrOSL2KLdfYJTkVl KaMrDlQaA3F3IuFht2TBW qoJtmQJ7cT3Mr VGVrialkvrbutFD0ROIpX CYauR58yPDzIQayRx1qj6 R5n576EVZtYTYpwG46Ds3 udDogMTBwdCBU lU8uodiwc8icurgmMoXjZ CPxCIm0IOn2MPNcwLiwYh JdFKR8CmA8IBQ5jJDdgO2 eiUsbcfkfjZ1z Oyc+M12qwT3lASP3IJN5v giwQICisnViDL25US99H2 RyPjwvdGFibGU+PGRpdiB coKabCQ4kMxAy p5qcn8WyYJjeG0SsDDBpV JxgPlz7IPWdUXS9dIG9gN 1wFAFdSCegf9C0aYZ8G0U dstQxyo1ao5sw UAOcYXcmY22xvGTel9M9U HLkcEW7DGFdcJgyJnPppQ 93Oyc+VUXnyWzsi0GwXkh uj6jrm0mixSr8 EaChNOQrwvUgzBysCXA7x 1OkIh36N25aCNybIQGeIZ QtOYCcDTZboTpyqb5agL2 wIi8+PGNvbCB3 rJS1aO9eYZZmDfO9VIwiU 525JdPzvCGnBgzgf7alh3 lgcHf8QdFhEYHuskTazSs lHNF8f7IwKp93 B79yXVhwEWCyLZYgJKTaV YMuqDdtgd5voO0nTm1+PC 0qf9dxnv79eA08xIT+PHR wLLC5aHbaOJgf KUXraA9qWKutVnT5JILlI kIswI12nOQuQIfzQz8vlT cfzRpxNH9gVCPovzgco10 9YzCfx7bkTTIo nBZmOIqaMZF8P87df8Q6E IRhYODgMKB5xFN4tQ1thI lnbjogbGVmdDsgdmVydGl mXDyrYJwuK805 IHRvcDsnPlBhdGllbnQgT wTzZNn7F7FnWui2AFCwcK cgZK7goJQhTQvaOd4etHp tiSnmDZ2zZWNw bulpi041IyYex3lcLUZyy GKmLSvyPNA2R49dv5R9MI PePCFjBKG4kTJ5jF5jsIw nbjogbGVmdDsg haNueYblLVpeACbfX804X HRvcDsnPkJpcnRoIERhdG S7DK03IX72vTWac2G0mHX 5Y2QjWBRhjtfs sbcwkBX3ZFXkHMXdwE19Y k0tcSjiYu9jXIZsPFZ7NE ZzoKVzJ2SbxD0gIsZbGMC wQDEkM8IygQZd MCgkA247LGgiKpE3HBNkg aXsV2TjGNInuUfpKtE0d2 Z6Xn6DS8P3VA92LL60zWY ml7X1wQG4O5Fq XZIfkqmcjscbcFP4UEKwT ELrdX59Kt2soJozNf7tIW CzKSQ5WCFpqZCtO2RicD7 yOiAjMDAwMDAw U7GugJHnMUdbF157UDntX wW5WEQzvtWjX2AaUAQsoO llFgW6a3S8Zl2ABVt6PN1 1QY85zKGoe6A5 iSO1Z1KeDJSwugeueukqp BX3RUYbIWPngJ76Go6jjM raYe8kHBPzXFC1ULKdtIE wA8PbbF1fXqEx KLZtYZUiM2VaqZLlZTsnX 414FMlcLfV0JDEcpaAsO8 ThJSEwlSulWsD6f6T4Uf1 PZJFzQC00ZOJ9 eJA5ZY00KN86W3JjBibgp GFibGU+PHRhYmxlIHdpZH RoPScxMDAlJyBzdHlsZT0 mZu1tYDBhZWAy nHcfvIPrYoByd4arDGBmS CsfZM3unRceK9CxcXT5GP Npi4q4Ay88F74rS6ZjnCQ +DBXqfIN3rRZ6 qI6eWoBoDjA0HGygL566H sJzzHJmDnzca9mwv6exeG k8WgO2LRNuvgDevCcyDPR 1s9ArUq84H30i IHdpZHRoPSIxNSUiIHZhb Fivga8sgO4bHp0+PGNvbC A7lTB8vK2tMhMkXiX7CJd xK812HlTubWRg Xkhxu2oog7sbcSt8WxMuT BIvptNruQouCVR5f8XeZo 32Z5DzoRtrd6DfGfd8fm6 2pDLjr4I9rPF5 H4CgVNBapwibaLEemAeiB S2xBYUzhoqlLVLdvJ1qMJ DhJ8s7DgRhKyV6XFvtZ3M jkyB4VJIocUDh MPzlTRS8B62bk9J6YYDsN RBoLIC6bSF8bR8acClwfm ogbGVmdDsgdmVydGljYWw zPCxfA285HNOy aJthKQIcrN2bPZDhkSZmm FdqQW2xKJFqspyiQaVYND MNHL8nMIlLDThOYQl7V1E mMfq1PAFvoTbo MV7rkFOhZBfoYt2opXkmo ThdIJ4zCEPphankEXZcoM 1cTSGinZCfhTzgNR6nLUI bnrvul232VdRp MHD9JUQehYRxR4UogC1fX aHiYHGmQRFxF3XtbUBrFN saD673ZKsxIyV1RVBbeeS cI1FpEYYjmFbz QqU7q6H4Sa7bNm5yDN7pB OY0TY60VV88cEFfp0R7uC J2I3BpKNAffutvmooucTK 5FBKvZPGubU71 dTUhBXmaAy0xl2C0v042D QXuCRCqqV33Gw9ofOfhHD ZyuYZTyM2txvhsv8nxsrp gIzAwMDAwMDt0 VVw1POBsmShgBlSfUND4L nK7ZOJ8uWGuoK1hvJjitc mubL7oEfe+NTcgWWVhcnM 4I4HaIsd0YMSr wEywIQ3pyTMuMRgrJa1fg GsdpMlaIL0mQUQjffboOK TxuU8rFWRrsOEweVbaFU8 uXCCzvrjgf610 LrCdNAQ6MANcmSDyM6Gke M5tVsOdGPDyMAIbW6UqcG SqJPiwJ772NPsfDlU1SPY imbZkK5AmPUYv eCxbKbP4w0S8Ys6DXW1ev KR5L9XdFmb1PMWykOoqXZ 0nrDJnBNpbKl2grFcblSu dYG5mQTUvblgh ZKLlhT8wTMXteMFqlSrhF N8qXDXtozzeb589JuKzXW M4HLGyhLKdU8OdsQ0lYgG kMTFtYFDxL9Mm kTUvTNzeR525ORkmJvU3A BZaycUqQ7AcNMHesCcdUd A7r7Y4Ia1EuQT3jGL6l8V 2G1VfjRToCRM0 EGP8swmmjwj9B9WqWjtus HI+SH71ZDSeYT46hSFevT Ahm9egvMn5ZtCdCOHgNLI 3gFwaBFmog4Rg RSZoA44nwZSjx6E1KBQhv VcpeEZxRnMlvOA8pG1rFR pqnbrzz9itonuuEwwrg0b wlo66mK84X33u IHdpZHRoPSIzMCUiIHZhb Aincn5yeP1xEt4+PGNvbC D5iFY0dG6fBaNpAgM5IGj nX685MxNhpIKw Udczy5mfv1oqiBh8PoZiU FEnldTjtSpnMCF1i5UyMd 32L26hAIfeFCHdMWUrJXG sMOKdxRedre3b zD9xWb0+QW5qy5bgeh60y D48dHI+CYNmFGD2wHpvPV fhIQAahF7iFKgmDmA6GMT kBvDbxJ23gWJr ZUanWw6alZxbdTtrON8oW BLxcmpgo826KkAxo6zzDT JrpUJxYYbbDFL8D72sd5Z 7IKUiHXYsGGL6 oGW1nQ5dtAlpnplclYLkk DsgdmVydGljYWwtYWxpZ2 84JNYruPosLpMmvUPxP4p ucfIIXA0mCzpp dGQ+SPTdHQD9xMscSGpkQ LFtoR7yKDKfG5t5OcJcQd O6AQaaC1CdjwH1CLKpoXC rYPWfqTTHuV6j jfbxg4yvwzdfCzSmUVIgJ Nl5HYs4WNBaeFpgQjMuRF A9MpW5ZCP6tVSlnQ1joTu qkffvqD1cTup+ RklOOjwvdGQ+HXIeHYY0z FjtLXjpLNShvC5yLODoB4 h6KrJhHoF7SGrgH9TdspT 6IGJvbGQgMTBw xLCCzR3acautz8ksnixyS wRcAPImQQe8WGg0CDHyuH suJxPqVCW8PbG6GXS1sXH ldV5zpYkbfkug jJ2mIme+TVJOOjwvdGQ+P NTpAMQ6oLqpAUyfHBUwqI 0iUYTtK3m1VmSdJlP4OUf xA9VwxvA3BELg qMUqWXVltKGHoI6bbnonp 7jopginQiXxCQQjPEk4OT f0CEGbfWklEaIkSUV7IeP 3ZXG3wOEfcL9w wLqagrrgpM9fRkq+UGF5Z ZY4IA22PX88E1UwAtgqiW FibGU+PHRhYmxlIHdpZHR oPScxMDAlJyBz dHls (more content not included)... Normal [facility] Consent for Anesthesiaon Consent for Anesthesia [id number]#1 .00CD:127 Normal [facility] Discharge Instructionson Discharge Instructions [id number]#1 .00CD:127 [facility] IntraOperative Documentson 0 06-19-2022 IntraOperative Documents [id number]#1 .00CD:127 Normal [facility] IntraOperative Documents [id number]#1 .00CD:127 Normal [facility] IntraOperative Documents [id number]#1 .00CD:127 Normal [facility] IntraOperative Documents [id number]#1 .00CD:127 Normal [facility] Main OR Intraoperative Recor don 06-19-2022 Main OR Intraoperative Record IntraOp Document Type FT Summary Primary Physician: Chalo BLUM MD Finalized Date/Time: 06/19/22 09:19:54 Pt. Name: ELIZABETH IRVIN/Sex: 1965 Female Med Rec #: [id number] Physician: Chalo BLUM MD Financial #: [id number] Pt. Type: A Room/Bed: [place] [address] Admit/Disch: 06/18/22 09:05:47 - 06/18/22 13:30:00 Institution: [...] Anesthesiologist Surgeon - Primary Scrub - Primary Extract Wringer Time In 06/18/22 11:12:00 06/18/22 11:12:00 06/18/22 11:12:00 Time Out 06/18/22 11:53:00 06/18/22 11:53:00 06/18/22 11:53:00 Procedure EXTRACORPOREAL SHOCK EXTRACORPOREAL SHOCK EXTRACORPOREAL SHOCK WAVE LITHOTRIPSY(Left) WAVE LITHOTRIPSY(Left) WAVE LITHOTRIPSY(Left) Comments DR BEAUCHAMP SUPERVISING Last Modified By: Mayi LYNN, Cheyenne Chin RN, RN, Kimberly Y 06/19/22 09:18:59 06/18/22 11:53:11 06/18/22 11:53:11 Entry 4 Case Attendee Cheyenne Figueredo RN Role Performed General Labor - Primary Time In 06/18/22 11:12:00 Time Out 06/18/22 11:53:00 Procedure EXTRACORPOREAL SHOCK WAVE LITHOTRIPSY(Left) Comments Last Modified By: Cheyenne Figueredo RN 06/18/22 11:53:11 General Comments: CARA ATY AND SHAE BATRES - ESWL REPS. GEOVANNI GEErobotics technologist Protocols FT Pre-Care Text: Implements protective measures [...] and tissue Entry 1 Skin Integrity Intact, [place], Warm, and Skin Abnormality No Dry Outcomes [...] Position Supine (more content not included)... Normal [facility] Preoperative Documentson Preoperative Documents [id number]#1 .00CD:127 Normal [facility] Preoperative Documents [id number]#1 .00CD:127 Normal [facility] CHEMISTRYOrdered By: Lab ROP User on 06-18-2022 Glucose [Mass/Vol] 72 mg/dL Normal 55 - 99 mg/dL [facility] POC Subsection Comment on above: Result Comment: Jean avalos RN/ POC Device SN [id number] Invalid Interpretation Code [facility] POC Subsection POC User ID [id number] Invalid Interpretation Code [facility] POC Subsection POC Username CLAY LARIOS Invalid Interpretation Code [facility] POC Subsection Capillary Glucose POCon 05-25 Glucose [Mass/Vol] 72 mg/dL Normal 55-99 [facility] Comment on above: Result Comment: Jean avalos RN/ Performed By: #### [id number] ####[facility] [id number] [place] [address] Consent for Procedure/Surger yon 06-18-2022 Consent for Procedure/Surgery [id number]#1 .00CD:127 Normal [facility] Consent for Treatmenton 05-25 Consent for Treatment [id number]#1 .00CD:127 Normal [facility] H&P Updateon 06-18-2022 H&P Update [id number] .00CD:127 Normal [facility] Inpatient Patient Summaryon 06-18-2022 Inpatient Patient Summary [address] [address] [facility] Clinical Discharge Instructions PERSON INFORMATION Name: ELIZABETH IRVIN PHYSICIANS Admitting Physician: Chalo BLUM MD Attending Physician: Chalo BLUM MD PCP: BALBINA NAPOLES CNP Discharge Diagnosis: Comment: PATIENT EDUCATION INFORMATION Instructions: Post Op Patient Instructions - FT (Custom) (CUSTOM); Lithotripsy, Care After Medication Leaflets: Follow up: With: Address: When: Chalo BLUM [address] [place] [address], [address], [address] [address] Business (1) Within 1 to 2 weeks Comments: Call for followup appointment with an abdominal X-ray prior to your visit (my office will need to send an order for the X-ray) MEDICATION LIST New Medications [id number], [address] [place], [place] [id number], [phone] acetaminophen-hydroco done (acetaminophen-hydroc odone 325 mg-5 mg [...] for 7 Days. Refills: 0. Comment: Normal [facility] Main OR PACU I Recordon 05-25 Main OR PACU I Record PACU Phase I Docum ent Type FT Summary Primary Physician: Chalo BLUM MD Finalized Date/Time: 06/18/22 13:01:07 Pt. Name: ELIZABETH IRVIN/Sex: 1965 Female Med Rec #: [id number] Physician: Chalo BLUM MD Financial #: [id number] Pt. Type: A Room/Bed: [place] [address] Admit/Disch: 06/18/22 09:05:47 - Institution: Case Times [...] By: JENNIFER VAZQUEZ RN 06/18/22 13:01 Normal [facility] Main OR PACU II Recordon Main OR PACU II Record PACU Phase II Document Type FT Summary Primary Physician: Chalo BLUM MD Finalized Date/Time: 06/18/22 13:26:59 Pt. Name: ELIZABETH IRVIN/Sex: 1965 Female Med Rec #: [id number] Physician: Chalo BLUM MD Financial #: [id number] Pt. Type: A Room/Bed: Admit/Disch: 06/18/22 09:05:47 [...] Signed By: Clay Dobbs RN 06/18/22 13:26 [facility] Main OR Preoperative Recordo n 06-18-2022 Main OR Preoperative Record PreOp Document Type FT Summary Primary Physician: Chalo BLUM MD Finalized Date/Time: 06/18/22 11:23:43 Pt. Name: ELIZABETH IRVIN D.O.B./Sex: 1965 Female Med Rec #: [id number] Physician: Chalo BLUM MD Financial #: [id number] Pt. Type: A Room/Bed: Admit/Disch: 06/18/22 09:05:47 [...] By: Cheyenne Figueredo RN 06/18/22 11:23 Normal [facility] Monitor Recordon 06-18-2022 Monitor Record [id number]# 1.00CD:127 Normal [facility] Monitor Record [id number]# 1.00CD:127 Normal [facility] Operative Reporton 3 Operative Report Patient: ELIZABETH IRVIN Age: 56 years Sex: Female : 1965 Associated Diagnoses: None Author: Chalo BLUM MD Postoperative Information Date/ Time: 06/18/2022 11:54:00 Postoperative Diagnosis: Bilateral kidney stones (KFT50-GA N20.0, Working, Medical), Status post left JJ [...] it well. She is transferred to the rdocena and then back to PACU in satisfactory condition, stable vital signs. Plan will be for discharge home with plans to follow-up in the office within a week or so with a KUB. Discussed all this with her postoperatively and he is in agreement with the plan. Prescription sent to the pharmacy for Leonard, #7 1 p.o. every 4 hours as needed pain. Instruction sheet given . Estimated Blood Loss: 0 ml. Complications: None. Anesthesia type: General. Normal [facility] Comment on above: Result Comment: Elec tronically Signed By: Chalo BLUM MD\.br\Date and Time Signed: 06/18/22 11:58 EST Outpatient Surgery Discharge Instructionon 06-18-2022 Outpatient Surgery Discharge Instruction [place] [id number] Patient Discharge Instructions PERSON INFORMATION Name: MARILINELIZABETH [...] Follow up: With: Address: When: Chalo BLUM [address] [place] [address] [place], [address], [address] [address] Business (1) Within 1 to 2 weeks [...] to serve you. Thank you for choosing [facility] HERE ARE THE MEDICATION CHANGES THAT OCCURRED DURING YOUR HOSPITAL STAY New Medications [id number], [address] [place], [place] [id number], [phone] acetaminophen-hydroco done (acetaminophen-hydroc odone 325 mg-5 mg [...] these instructions at home: Medicines ? Take szxu-rkk-nyklxet and prescription medicines only as told by [...] pale yellow. (more content not included)... Normal [facility] Patient Education - Texton 0 06-18-2022 Patient [...] these instructions at home: Medicines ? Take fprl-wom-lglypoq and prescription medicines only as told by [...] help ri (more content not included)... Normal [facility] Progress Note-Physicianon Progress Note-Physician Patient: ELIZABETH IRVIN Age: 56 years Sex: Female : 1965 Associated Diagnoses: None Author: Garifeld Beauchamp Jr., DO Postoperative Information Post Operative Note: Post Anesthesia Care Unit. Anesthetic utilized: General. Health Status Allergies: Allergic Reactions (Selected) Severity Not Documented PredniSONE- Hives. Valtrex- Hives. Problem list: All Problems Anemia / SNOMED CT 427336787 / Confirmed Arthritis / SNOMED CT 0429512 / Confirmed Depression / SNOMED CT 44886366 / Confirmed Hypertension / SNOMED CT 8726996411 / Confirmed Kidney stones / SNOMED CT 496127091 / Confirmed Restless legs syndrome / SNOMED CT 02965863 / Confirmed Type 2 diabetes mellitus / SNOMED CT 664815636 / Confirmed Ureteral stone / SNOMED CT 39430920 / Confirmed Physical Examination Vital Signs 06/18/2022 [...] noted. Plan Transfer/ Discharge: Condition stable. Normal [facility] Comment on above: Result Comment: Elec tronically [...] for 7 day(s), 14 tab(s), Refill(s) 0, [id number], 160, cm, 06/11/22 9:42:00 EST, Height/Length Dosing, [...] Diabetes Mother Procedure history: Cysto/basket extreaction/stent placement ([id number]) on 03/19/2022 at 56 Years. Hysterectomy (581449771). Gastric bypass (0154973070). Social History Social & Psychosocial Habits Alcohol [...] Glucose Cap 72 mg/dL POC Device SN [id number] POC User ID [id number] POC Username CLAY LARIOS 06/11/2022 9:56 EST WBC 4.0 E9/L RBC 4.1 E12/L LOW HGB 10.7 gm/dL LOW Hct 33.2 % LOW MCV 81.1 fL MCH 26.2 pg LOW MCHC 32.3 gm/dL RDW 18.0 % HI Platelet 311.0 E9/L MPV 7.3 fL Neutro Auto 46.1 % Lymph Auto 40.8 % Whitman Auto 7.5 % Eos Auto 4.1 % Basophil Auto 1.5 % Neutro Absolute 1.8 E9/L LOW Lymph Absolute 1.6 E9/L Whitman Absolute 0.3 E9/L Eos Absolute 0.2 E9/L [...] IMPRESSION: NO (more content not included)... Normal [facility] Comment on above: Result Comment: Elec tronically [...] MD Transcribed by: HARDEEP Technologist: WANDA Pastor [facility] C Urineon 06-13-2022 Bacteria identified Cx Nom [...] Locations R1: [facility] performed at[facility], [address] [place] [address], [facility] , , [facility] Comment on above: Performed By: #### 1 1530702, 7413525 ####[address] [place] [address] Immunization Recordson 06-12 Immunization Records [id number]# 1.00CD:127 Normal [facility] Auto Diffon 06-11-2022 Basophils/100 WBC (Bld) 1.5 % Normal 0.0-2.0 [facility] Comment on above: Order Comment: Order Added by Discern Expert. Performed By: #### 1 8283976, 4341889, 5181198, 7128752, 09748683 ####[address] [place] [address] Basophils/Leukocytes Auto (Bld) [Pure # fraction] 0.1 E9/L Normal 0.0-0.2 [facility] Comment on above: Order Comment: Order Added by Discern Expert. Performed By: #### 1 1588569, 5434808, 4319766, 9699574, 66332194 ####[address] [address] Eosinophils/100 WBC (Bld) 4.1 % Normal 0.0-8.0 [facility] Comment on above: Order Comment: Order Added by Discern Expert. Performed By: #### 1 1159412, 3033209, 4215148, 8157998, 96910445 ####[address] [address] Eosinophils/Leukocytes Auto (Bld) [Pure # fraction] 0.2 E9/L Normal 0.0-0.5 [facility] Comment on above: Order Comment: Order Added by Barber Expert. Performed By: #### 1 7480478, 0140374, 7772906, 3918935, 54680117 ####[address] [address] Lymphocytes/100 WBC (Bld) 40.8 % Normal 14.0-50.0 [facility] Comment on above: Order Comment: Order Added by Discern Expert. Performed By: #### 1 6427211, 0239243, 5428656, 7032715, 35541773 ####[address] [address] Lymphocytes/Leukocytes Auto (Bld) [Pure # fraction] 1.6 E9/L Normal 1.0-4.0 [facility] Comment on above: Order Comment: Order Added by Barber Expert. Performed By: #### 1 3091478, 2373398, 9108475, 1869280, 80343560 ####[facility] [address] [place] [address] Monocytes/100 WBC (Bld) 7.5 % Normal 4.0-14.0 [facility] Comment on above: Order Comment: Order Added by Discern Expert. Performed By: #### 1 5915009, 7081449, 0664326, 8553281, 45899803 ####[address] [place] [address] Monocytes/Leukocytes Auto (Bld) [Pure # fraction] 0.3 E9/L Normal 0.2-1.0 [facility] Comment on above: Order Comment: Order Added by Discern Expert. Performed By: #### 1 2409393, 7360234, 0067455, 6361505, 09264902 ####[address] [address] Neutrophils/100 WBC (Bld) 46.1 % Normal 36.0-75.0 [facility] Comment on above: Order Comment: Order Added by Barber Expert. Performed By: #### 1 8139005, 0014736, 0460444, 4825105, 30599687 ####[address] [place] [address] Neutrophils/Leukocytes Auto (Bld) [Pure # fraction] 1.8 E9/L Low 2.0-7.5 [facility] Comment on above: Order Comment: Order Added by Discern Expert. Performed By: #### 1 5291302, 1388851, 6864742, 8395078, 31310429 ####[address] [place] [address] BMPon 06-11-2022 Anion gap [Moles/Vol] 11 mmol/L Normal 6-16 [facility] Comment on above: Performed By: #### 1 0248831, 0347228, 3326993, 6720073, 61164136 ####[address] [place] [address] Calcium [Mass/Vol] 9.2 mg/dL Normal 8.9-11.1 [facility] Comment on above: Performed By: #### 1 3132990, 1497783, 8319942, 8089903, 10040041 ####[facility] [address] [facility] [place] [address] Chloride [Moles/Vol] 110 mmol/L Normal 101-111 [facility] Comment on above: Performed By: #### 1 9304850, 5287633, 2727498, 9092382, 47957290 ####[facility] [address] [place] [address] CO2 [Moles/Vol] 23 mmol/L Normal 21-31 [facility] Comment on above: Performed By: #### 1 9031413, 3477988, 4093465, 5187000, 57825810 ####[facility] [address] [place] [address] Creatinine [Mass/Vol] 1.8 mg/dL High 0.5-1.3 [facility] Comment on above: Performed By: #### 1 1425706, 9672079, 7008595, 4485202, 29466081 ####[facility] [address] [place] [address] Glucose [Mass/Vol] 78 mg/dL Normal 55-199 [facility] Comment on above: Result Comment: If t his glucose result represents a fasting glucose, interpretation should refer to the following reference range: 55-99 mg/dL Performed By: #### 1 7571285, 4307171, 7027872, 3204806, 58980530 ####[facility] [address] [place] [address] Potassium [Moles/Vol] 5.3 mmol/L Normal 3.5-5.3 [facility] Comment on above: Performed By: #### 1 2644841, 2287856, 5462760, 2873798, 45937135 ####[facility] [address] [place] [address] Sodium [Moles/Vol] 139 mmol/L Normal 135-145 [facility] Comment on above: Performed By: #### 1 1686019, 1705613, 8553048, 9144877, 32517161 ####[facility] [address] [place] [address] Urea nitrogen [Mass/Vol] 22 mg/dL High 5-21 [facility] Comment on above: Performed By: #### 1 3197433, 4554570, 0467187, 5221904, 13925582 ####[facility] [address] [place] [address] Urea nitrogen/Creatinine [Mass ratio] 12 No Units Normal 10-20 [facility] Comment on above: Performed By: #### 1 8971451, 1751256, 3635397, 8135475, 55807334 ####[facility] [address] [place] [address] CBC w/ Auto Diffon 3 Erythrocyte distribution width (RBC) [Ratio] 18.0 % High 10.9-14.2 [facility] Comment on above: Performed By: #### 1 9247718, 4118955, 6417917, 7342113, 46370122 #### [facility] [address] [place] [address] Hematocrit (Bld) [Volume fraction] 33.2 % Low 34.0-46.0 [facility] Comment on above: Performed By: #### 1 3295577, 1503231, 4121465, 4274009, 08161574 #### [facility] [address] [place] [address] Hemoglobin (Bld) [Mass/Vol] 10.7 g/dL Low 12.0-16.0 [facility] Comment on above: Performed By: #### 1 6740418, 7946337, 5916671, 8799155, 60936484 #### [facility] [address] [place] [address] MCH (RBC) [Entitic mass] 26.2 pg Low 27.0-34.0 [facility] Comment on above: Performed By: #### 1 9539725, 6257029, 8744989, 6505307, 27369850 #### [facility] [address] [place] [address] MCHC (RBC) [Mass/Vol] 32.3 g/dL Normal 31.4-36.0 [facility] Comment on above: Performed By: #### 1 6859483, 5016541, 6204137, 4056620, 54665992 #### [facility] [address] [place] [address] MCV (RBC) [Entitic vol] 81.1 fL Normal 80.0-100.0 [facility] Comment on above: Performed By: #### 1 9427205, 5916172, 8172539, 1812730, 46297926 #### [facility] [address] [place] [address] Platelet mean volume (Bld) [Entitic vol] 7.3 fL Normal 6.4-10.8 [facility] Comment on above: Performed By: #### 1 9124898, 9033749, 3642872, 3803415, 72436152 #### [facility] [address] [place] [address] Platelets (Bld) [#/Vol] 311.0 E9/L Normal 150.0-500.0 [facility] Comment on above: Performed By: #### 1 2031684, 1334738, 9156512, 1221091, 49091570 #### [facility] [address] [place] [address] RBC (Bld) [#/Vol] 4.1 E12/L Low 4.3-5.9 [facility] Comment on above: Performed By: #### 1 8605945, 8845336, 3035372, 3006325, 56399351 #### [facility] [address] [place] [address] WBC corrected for nucl RBC Auto (Bld) [#/Vol] 4.0 E9/L Normal 4.0-11.0 [facility] Comment on above: Performed By: #### 1 3241976, 3813784, 2166101, 5025730, 07969286 #### [facility] [address] [place] [address] CHEMISTRYOrdered By: SYSTEM SYSTEM on 06-11-2022 Anion gap [Moles/Vol] 11 mmol/L Normal 6 - 16 mEq/L [facility] Remisol Calcium [Mass/Vol] 9.2 mg/dL Normal 8.9 - 11. 1 mg/dL [facility] Chloride [Moles/Vol] 110 mmol/L Normal 101 - 1 11 mmol/L [facility]isol CO2 [Moles/Vol] 23 mmol/L Normal 21 - 31 mmol/L [facility] Creatinine [Mass/Vol] 1.8 mg/dL High 0.5 - 1.3 mg/dL [facility] GFR/1.73 sq M.predicted among blacks MDRD (S/P/Bld) [Vol rate/Area] 35 mL/min/1.73 m2 Low >=59mL/min/1 .73 m2 [facility] Chem S GFR/1.73 sq M.predicted among non-blacks MDRD (S/P/Bld) [Vol rate/Area] 29 mL/min/1.73 m2 Low >=59mL/min/1 .73 m2 [facility] Chem S Glucose [Mass/Vol] 78 mg/dL Normal [...] for Treatmenton 05-24 Consent for Treatment [id number] [facility] [id number]#1 .00CD:127 Normal [facility] HEMATOLOGYOrdered By: SYSTEM SYSTEM on 06-11-2022 Basophils/100 [...] Coag (PPP) [Time] 33.1 second(s) Normal 25.1-36.5 [facility] Comment on above: Result Comment: Para meter [...] the same coagulation reagent and instrumentation as [facility]. Currently there are no coagulation studies available worldwide for children to 14 days, and no normal ranges. Heparin therapeutic range (represented by Anti-Factor Xa activity of 0.2 - 0.4 U/mL) corresponds to PTT of 56.6 - 109.0 sec. Performed By: #### 1 5197200, 3910456, 9047893, 4510590, 52802922 #### [facility] [address] [place] [address] INR Coag (PPP) [Relative time] 1.0 {INR} Invalid Interpretation Code [facility] Comment on above: Result Comment: INR results are specifically intended to assess patients stabilized on long-term Anticoagulation therapy suggested INR?s ?Less Intensive Anticoagulation? 2.0 ? 3.0 Conventional Range 3.0 ? 4.5 Performed By: #### 1 0983068, 7708538, 0878227, 6237835, 61557310 #### [facility] [address] [place] [address] PT Coag (PPP) [Time] 10.6 second(s) Normal 9.4-12.5 [facility] Comment on above: Result Comment: 15 d [...] the same coagulation reagent and instrumentation as [facility]. Currently there are no coagulation studies available worldwide for children to 14 days, and no normal ranges. Performed By: #### 1 5161473, 2213855, 3031846, 3638688, 02750921 #### [facility] [address] [place] [address] UA With Cult Reflexon 2022 Bacteria LM Ql (Urine sed) 3+ /HPF Abnormal Trace [facility] Comment on above: Performed By: #### 1 8557010, 9272874 ####[facility] [address] [place] [address] Bilirubin Ql (U) Negative Normal Negative [facility] Comment on above: Performed By: #### 1 9415887, 4832482 ####[facility] [address] [place] [address] Clarity (U) SL CLOUDY Abnormal Clear [facility] Comment on above: Performed By: #### 1 1988977, 4703791 ####[facility] [address] [place] [address] Color (U) YELLOW Normal Yellow [facility] Comment on above: Performed By: #### 1 0463703, 2363563 ####[facility] [address] [place] [address] Epithelial cells.squamous LM.HPF (Urine sed) [#/Area] 3-4 Normal 0-2 [facility] Comment on above: Performed By: #### 1 3539075, 9586982 ####[facility] [address] [place] [address] Glucose Test strip (U) [Mass/Vol] Negative Normal Negative [facility] Comment on above: Performed By: #### 1 4528090, 8884688 ####[facility] [address] [place] [address] Hemoglobin Ql (U) 2+ Abnormal Negative [facility] Comment on above: Performed By: #### 1 7451358, 1876334 ####[facility] [address] [place] [address] Ketones (U) [Mass/Vol] Negative Normal Negative Fi [facility] Comment on above: Performed By: #### 1 5845261, 6030708 ####[facility] [address] [place] [address] Nitro.plasma/Nitro .RBC (Bld) [Mass ratio] 4-20 Normal 0-3 [facility] Comment on above: Performed By: #### 1 4529855, 2582944 ####[facility] [address] [place] [address] Nitrite Ql (U) Positive Abnormal Negative [facility] Comment on above: Performed By: #### 1 3935333, 5580898 ####[facility] [address] [place] [address] pH (U) 6.0 [pH] Invalid Interpretation Code 5.0-9.0 [facility] Comment on above: Performed By: #### 1 8517504, 8611605 ####[facility] [address] [place] [address] Protein (U) [Mass/Vol] TRACE Abnormal Negative [facility] Comment on above: Performed By: #### 1 2784194, 5487197 ####[address] [address] Specific gravity (U) [Rel density] 1.025 Invalid Interpretation Code 1.005-1.030 [facility] Comment on above: Performed By: #### 1 9830214, 3764408 ####[address] [address] Type of Urine collection method Clean Catch Normal [facility] Comment on above: Performed By: #### 1 6994950, 5167398 ####[address] [address] Urobilinogen Qn (U) 0.2 {Coby'U}/dL Normal 0.0-1.0 [facility] Comment on above: Performed By: #### 1 7677347, 6077036 ####[address] [address] WBC Auto Ql (U) 3+ Abnormal Negative [facility] Comment on above: Performed By: #### 1 0794887, 6145482 ####[address] [address] WBC LM.HPF (Urine sed) [#/Area] /[HPF] Abnormal 0-5 [facility] Comment on above: Performed By: #### 1 3561253, 8242760 ####[address] [address] URINALYSISOrdered By: Pia weber on 06-11-2022 Bacteria [...] AM) Normal Negative [facility] UA Auto SS Nitro.plasma/Nitro .RBC (Bld) [Mass ratio] 4-20 /HPF Normal [...] [facility] UA Auto SS Urobilinogen Qn (U) 0.2688727 {Coby'U}/dL Normal 0.0 - 1.0 EU/dL [facility] UA Auto SS WBC Auto Ql (U) 3+ *ABN* (06/11/22 9:56 AM) Invalid Interpretation Code Negative [facility] UA Auto SS WBC LM.HPF (Urine sed) [#/Area] /[HPF] Invalid Interpretation Code 0-5/HPF [facility] UA Auto SS eGFRon 01-19-2023 GFR/1.73 sq M.predicted among blacks MDRD (S/P/Bld) [Vol rate/Area] 35 mL/min/1.73 m2 Low >=59 [facility] Comment on above: Order Comment: Order added by Discern Expert. Result Comment: eGFR is race adjusted. AA=. Performed By: #### 1 4800131, 1612666, 1441862, 3782832, 08844122 ####[facility] [address] [place] [address] GFR/1.73 sq M.predicted among non-blacks MDRD (S/P/Bld) [Vol rate/Area] 29 mL/min/1.73 m2 Low >=59 [facility] Comment on above: Order Comment: Order added by Discern Expert. Result Comment: [employer] barron kidney disease could be indicated at eGFR's of less than 60 mL/min/1.73m2. Kidney failure is indicated at less than 15 mL/min/1.73m2. Performed By: #### 1 7418356, 8045580, 5209863, 1444942, 33020942 ####[facility] [address] [place] [address] Outside Recordson 05-14-2022 Outside Records [id number]# 1.00CD:127 Normal [facility] Consultation Noteon 05-07-20 Consultation Note [id number]#1 .00CD:127 Normal [facility] Office Visit (Cardiology)on 05-05-2022 Follow-up visit Diagnoses/Problems Assessed Benign essential hypertension (401.1) (I10) Overweight with body mass index (BMI) of 26 to 26.9 in adult (278.02,V85.22) (E66.3,Z68.26) Never a smoker Pre-operative cardiovascular examination (V72.81) (Z01.810) Orders Benign essential hypertension, Pre-operative cardiovascular examination IO EKG Electrocardiogram- 12 Lead; Status:Complete; Done: [id number] Overweight with body mass index (BMI) of 26 to 26.9 in adult Healthy Weight Tips; Status:Complete - Retrospective Authorization; Done: [id number] Some eating tips that can help you lose weight.; Status:Complete - Retrospective Authorization; Done: [id number] SocHx: Never a smoker Tobacco Use Screening; Status:Complete; Done: [id number] Patient Instructions Please bring all medicines, vitamins, [...] negative for complaint. Vitals Vital Signs Recorded: 71Aty3929 03:50PMRecorded: 89Bye0084 03:49PM Nfagieub63, RUE, Yixqdth47, LUE, Sitting Owdjmkqqh18, RUE, Qjqbmxe33, LUE, Sitting Heart Jlre110, Apical Height5 ft 3 in Xupnin070 lb BMI Wyatmvszkm06.22 kg/m2 BSA Calculated1.7 Tobacco Useb) No PHQ-2 [...] Signatures Electronically (more content not included)... Normal [facility] Tobacco Screening.on 022 Tobacco use status [facility] b) No -[facility] y [address] DO Work Phone: Tobacco Screening. Yes [facility] DO Work Phone: Coding Summary.on 04-21-2022 Coding Summary. CD:[id number] G h0bWw+PGhlYWQ+EH5GLRE yY48ogCAicS2TB5lCOV5Z YDWCANOMJA5SKM7stOL1S MsrB4SbhzQj QksxoELnNN05YCq1VCS7x RbwFJidxC0acUNlO4c4Vn YbRY49aA55TQiiVILpOfM 3LjZpbjsgbWFy Z5cuMjEpdFCmYgw+PHRhY mxlIHdpZHRoPScxMDAlJy PokVtoXK2dIg6pUJMeMTD vbGxhcHNlOiBj z0pmTHBlUDtyFQ2lnQdgB 0TpxYO1CVRwb5l0Hd98sB I+OJMuYDC6bYhvFVbay75 0ClMkz7tzLNZ0 fWGsPAdnORW3K70pk1U7D MNcBZLqMAH8oSM4wA1tyX guzwcvV3YunVNlGnV6GLZ 3nWQteF4taLur iggjqA9qKyh+C92DFT5NU JIAOK6OPbs6W7MsRcwfuP I+HT75BAYtYV30iWTezHF mh0phxGn8ElPf MEGzMVE5aCbhIQvyu9HbT LShD04yyJBbr5B4YLQcvO imnRPiThUjcYP3mS5qEPq mjjtgg2jzoebh Qgncb9ifim24hF46K32aN GchKVMoNQJ9TKVmBSYvnU jyvw6wgJ0aYo3+NIbxg0l sx3cbfBj5VnFd KKRuhiAgtJyaPXA0a3TjL q18B0IkbQzko4EoLnp2cs 80dDStm2N8sWF7GKylBRW cqG1cFVuvIqF1 BKEyVwNzjP70xFKlEIuuA c0vxJvpcOvoDN4gNCLqhw anCNIlvI0hVTBlbPXctXp eRV6hWKTjafim r176XhKhGOE3AUZwpTUuP 3RdrZ3yRzMdDAHjKKXhE0 NlzOYjRUysZ996YTkaRhV 2LEVtcbOeF0Ke YGJabXwzNkR8y6A4Xm8Vu 9JsvyoiVCX2ORabQHVdDx L2NaNgCnX1M1NkMem1MPY rfCnuSH7gV9Vj XGXokgnwpbhulUE3BTKwD TWclM95iWUsNYueSx0se7 U8z338JZWzXRWoiF37Dt5 udDogMTBwdCBU jL4vrpniy3ctfjywAoOyI BFjTXv4LQx9YDZqqTovZu YvSYZ4PsD2BLP0eDTffC9 ubPmftpsdtP6x Oyc+A87faO3vUQW6VVI5d dzrSMEvdyAsYQ17OE09F2 RyPjwvdGFibGU+PGRpdiB igVvuLU8nWrZq e7vmn0QbMZpmA6KwCWQgK KntUpr3WNBaCKS1iYR3wB 8cPMUyNUcsf1H5nKZ4K8T xdfCaoi9zk0gj TKAeFXthR69lcNDjp9R8O TVgkBD3EFKsjEswRsNylQ 93Oyc+OIFbpEknk2UhLfl se2tqn2kpjPj0 KeVdBNGdikVmqAzqPSE9p 8WdKn09T92dNYzfMVGnTI CzGXQeNBSmiNtmyn7eoW8 wIi8+PGNvbCB3 kZP5yU4dAMUbItJ2UFqcU 935DgLnyXGrLucuu2kzo5 mriBc7NyReHJOgixYomUn nDOS7i6TtLr52 T59yRDijCJEjYDDpBUZmA GTuhByogy0qsS7tHu4+PC 4kw4olvw07zA63bRD+PHR rTLF4qSitNSce IJWysQ7xEPyqQvS4JQNiO ePziO12fVSbFEezZq9tnY hbpBxqFE2fHHGvvvhhe65 4GdAin5vvFSGk kONwAUeyUWY9S80gv4P9H PZuBIVaBIH8pRR5iK6rtL lnbjogbGVmdDsgdmVydGl rKHqmNVuhW707 IHRvcDsnPlBhdGllbnQgT kAbSSe3C8JjRqj2GSCucK wdVE8tdTMgCKtoLz1wmJa muCpwXT2hDZBv axuzk604DzRtf7waKJFdh WFyCZcbLVP6B50qm4A7KN SlXWKuYDV7dNM1tI0yvEy nbjogbGVmdDsg xnJnySxfAVmjMWjkB764R HRvcDsnPkJpcnRoIERhdG G7LH55HR85lXLam7I0oLP 0F5YmAMLuryys zjsyjYB2CHCvWIRbtK62B k4orYjgPy7tCEXcZSO1ZB QxqYBvQ2PctZ7lOrBhMKC dSTDeJ3GbwPOm WBgeQ479GUwsXeX0BFTna dVfP7JpHQFrvZbjYtC5l1 O4Kf9QP7U0UE39IV45wHM rr7O9mXK1N2Aj FMUjgajeyicewUH6DDTlV RKkfE04Vb5unXktPf1aAL YzBZW9NOPdoTGhA9MrjW3 yOiAjMDAwMDAw Z6WepCXdCZlaC534ZQwaO nK1ORVxkjHrM7YoGSZccD xtRpV5h9B9Wu7BIVn2PT1 7EV10rFHmn5R8 tNQ9J5MdQCZnlxdowhvud VV1CESeARVauO50La1ezC yuLh9eEBSkFPK9UVVtoBH fX6UtrY6jLuDg PGDrGXGaP6BzcGNgTWdoH 849YXmsCtR4MKNayfUlH6 SxRWGibPzbXtG8x1P1Uf5 RBWFmCC54FFQ6 yOU5JN53ZV07M7KkLbxdj GFibGU+PHRhYmxlIHdpZH RoPScxMDAlJyBzdHlsZT0 uJp4bYXNdTVZz qYxxjFHeOjRhq2ewNAIhH ZdiER8qkCkeL4BpuPR9YE Suw1r1Iq44Q24uV9KpgDU +YWYffVC8jZE7 xP2sNjWrVsK3OIvlO604N oCkzRMyFbgvv1ntd1zejL h3VjL0EMOpboWinDfnYKG 2b4MjKn12S46g IHdpZHRoPSIxNSUiIHZhb Qyyeo9iqB3yZt9+PGNvbC A4zBH8pQ8bOzPmNsW4ZPb uE208FdLnxXIp Ydzna6ssv8egtIr4SuTeY ZBdciAmyKsoLSE4r4HvNt 28K3MopDjdb2KiVrq1fe8 6lCBdd6T2pAI7 K4IwCJDxnlovzJXzwLtcA K1mTARavyssDIVwlB5gBN TmT8n5OwTgSxI1UTlbR1L lbfS3TLQypWUp YWigJQH6D85qr4R5WCQrE CPsMKY2zYM1hF8xjQicvy ogbGVmdDsgdmVydGljYWw jILdhW874QIZt zTvmONLznN3lQWLamQJlm ZkwLA3nZLGebrwjHcQSKZ XZBR5pQIpHWCfVITk0W0B uTkg9JLVbzHxn MM0wbWBqXNrsIp7gkHqpp VcfNB3jKVLipeefHZJmwJ 2rOUAzvTFtqKcoKM1oANW hpxpfd521TwLz KQS9ATBeiYPyV6TsvV4uT fZiZJKeYJJuS2ZycKZmKD piY446ZHniAgS3SBYuyjX sN4VlJJUofXvg ZqN2s9R8Os2bWg5yJM3kT MO5KC27BO15rTOan8S2aC Y1U6CuECZlymxyniqtpDC 4HIAqHKCdvA10 uLPhBKijHw1oh0Q6j914L PXcXJCxzM84Ul5ldHpyYB VfvXAZmV3lnpzfx7bqhxd gIzAwMDAwMDt0 EQs4MFZzdQzuOaRfYFY7B pS3MWW0iSGzjZ2zaXzujg stxB0vVkn+NTcgWWVhcnM 5S6YdUtl2ZNVq mAobSY3omLGmJOajIn1zv MawtDbuDT8bTAYdydbuAV FifO4vXNCyxLHtxKezYA7 zDGHigavhk160 EeNkOLM6VZGnjUCkV6Tro Q8gNnVaROUdCQCpI5HzlG WvSWzuR502OZzdRmB7KHO vbzWzD5QrNEDc fPvfWtF4i7E6Lb4TCQ9ix HU4D4AzLvh5YTXccEajQI 5tnXIqVPktRv9qhAosiKo ePA7tNYDsbgws NAIlhN5dBDZncNTyfTxuK R1bFMKwaceif695KvKlYM Z5TQQaiMIpG6DbnE9tRvI zEFEzZNMzG0Ng wYPdDKuuX012FKigQdD8Y OPwygQoH3KgXRTtlWnlMc Q7i1R1Bp0GlSWrPFRzJP7 2GP30TG02G1Vw PjwvdGFibGU+PHRhYmxlI HdpZHRoPScxMDAlJyBzdH grDY5cDt8lZWMaCPNvaKx dsZNjWjQap6xb SRYgATfgVM6csAvvX0Zdi PO7XVLjx6w8Xr77R15oC1 JvdXA+UPLnzTL7gGN2xY9 qBuCdIeA5JXth N926AwZhtBEjIhpal7sge 9lcaDz7YaQtIQYdwyKkgY qlVUY0q7DtOr35M30aYXe pZHRoPSIyMCUi YNMalXiasu1ldS2vJj3+P QVoiFR9hNH7dZ9dFeDdRh V4LBhzW408RgVjpWRhMed sD87xS4DnqUX+ RWFhFft8KEHwuXqmDT3rb PTkDHxbYt9bZQW9MaUxLt FgLHmmU8RpILWuubyzkgx gvIB2APLvABCv rA82Rb2frJkmFu9kLQIcA QQ8AGWjiWXgK4ZotK5eCc CqQYIvZXRgE1ZglNJiIQw qU057RVvwVuE8 TQUiupQgS7JmTEEacIbfM pN4t0S9Oy0KcHtjjSYpBL 4wUdScEId7D7HaNax6ZBZ nzCpcXM7ygIMz LSglCj4idRusrIecZE2tR YOorcbmv620PcHgr0fgWY SleUDgMFlcCCP3S78st9T 1ZORdAXYiMKZ8 tIA2zA6zdLvlbkdqxXJpp DsgdmVydGljYWwtYWxpZ2 41DANbbJgwSiZGBfl3D7T rVnc8RTCnaDyd JH4pkNBjPFyyBz4wtGbul RkgJR0oMCZuhqxva040Nu Bwt6tmSAYioHDlSCryCWE 8K10cg7G1NXUo ZBYyXTQ1aUW2dV1ywJvnc jogbGVmdDsgdmVydGljYW cnFJsfU840ZYSjlNoaZx5 PLbr6L6KrQvr2 NNItjJusUT2inXRaTLklI e4vwAcweKbbLM1oLQYvzo ict728KuUyf1xdZXWswDP yDNilEPJ9S65p a1Z4GNKkSIRlFHH8hOA9c R5rwMfgbumpcLDrcItuzj UjbPrgHGzqDTgcK325IMU vcDsnPlBheWVy OjwvdGQ+IL41lv30F5SyA zphOto8JSTdSXE7tRG2hM 3pCNRtUYskh2W6oTU7J6V kohJexg7jm3oz YXBz (more content not included)... Normal [facility] Outside Recordson 04-21-2022 Outside Records [id number]#1 .00CD:127 [facility] Consent for Treatmenton 03-25 Consent for Treatment [id number]#1 .00CD:127 [facility] XR Chest 2 Viewson XR Chest 2 [...] Sweeney M.D. Transcribed by: HARDEEP Technologist: LUPE [facility] Outside Recordson 04-14-2022 Outside Records [id number]#1 .00CD:127 [facility] RAD - MISCon 04-06-2022 RAD - MISC [id number]#1 .00CD:127 [facility] Insurance Correspondence Off iceon 04-02-2022 Insurance Correspondence Office [id number]#1 .00CD:127 Normal [facility] Formson 04-01-2022 Forms [id number]# 1.00CD:127 Normal [facility] XR KUB 1 VIEWon 04-01-2022 XR KUB [...] by: NATACHA WILD Date: 2022-04-01 08:23 Normal [facility] Patient Educationon 03-31-20 Patient Education Urology [...] these instructions at home: Medicines ? Take [id number] and prescription medicines only as told by [...] 10/26/2008 Document Revised: 09/26/2019 Document Reviewed: 09/26/2019 [employer] Patient Education ? 2019 [employer] Normal [facility] Urology Office/Clinic Noteon 03-31-2022 Urology Office/Clinic Note Chief Complaint New Pt HPI Staff New Pt. Pt was seen at [facility] on 03/19/22 due to right flank [...] ureter) New patient. Pt was seen at [facility] on 03/19/22 due to right flank [...] Information KULWANT REED, Chalo P, URL [address] [id number]- Additional Instructions: Schedule Left ESWL Patient Education Kidney Stones, [id number] IJennifer, personally scribed for Dr. Blum on [...] Ozempic, SubCutan (more content not included)... Normal [facility] Comment on above: Result Comment: Elec tronically Signed By: Chalo BLUM MD\.br\Date and Time Signed: 03/31/22 13:50 EST\.br\Electronically Co-Signed By: Jennifer Hamilton\.br\Date and Time Co-Signed: 03/31/22 13:36 EST Operative Reporton 2 Operative Report [id number]#1 .00CD:127 Normal [facility] CALCULI, URINARYon 2 2,8 Dihydroxyadenine Normal [facility] Comment on above: Performed By: #### C ALCULI #### [facility] [address] [place] [address] Dr. Adryan Faustin Ammonium Acid Urate Normal [facility] Comment on above: Performed By: #### C ALCULI #### [facility] [address] [address] [address] Adryan Faustin Bilirubin Ql (U) Normal [facility] Comment on above: Performed By: #### C ALCULI #### [facility] [address] [address] [address] Adryan Faustin Ca Oxalate Dihydrate 20 % Normal [facility] Comment on above: Performed By: #### C ALCULI #### [facility] [address] [address] [address] Adryan Faustin CaHPO4 (Brushite) Normal [facility] Comment on above: Performed By: #### C ALCULI #### [facility] [address] [address] [address] Adryan Faustin Calcium Bilirubinate Normal [facility] Comment on above: Performed By: #### C ALCULI #### [facility] [address] [address] [address] Adryan Faustin Calcium Carbonate Normal [facility] Comment on above: Performed By: #### C ALCULI #### [facility] [address] [address] [address] Adryan Faustin Calcium Oxalate Monohydrate 80 % Normal [facility] Comment on above: Performed By: #### C ALCULI #### [facility] [address] [address] [address] Adryan Faustin Calcium Palmitate Normal [facility] Comment on above: Performed By: #### C ALCULI #### [facility] [address] [address] [address] Adryan Faustin Calcium Phosphate Normal [facility] Comment on above: Performed By: #### C ALCULI #### [facility] [address] [address] [address] Adryan Faustin Calcium Stearate [facility] Comment on above: Performed By: #### C ALCULI #### [facility] [address] [place] [address] Dr. Adryan Faustin Carbonate Apatite Normal [facility] Comment on above: Performed By: #### C ALCULI #### [facility] [address] [place] [address] Dr. Adryan Faustin Cellular Material [facility] Comment on above: Performed By: #### C ALCULI #### [facility] [address] [address] [address] Adryan Faustin Cholesterol [facility] Comment on above: Performed By: #### C ALCULI #### [facility] [address] [address] [address] Adryan Faustin Color (U) Brown Normal [facility] Comment on above: Performed By: #### C ALCULI #### [facility] [address] [address] [address] Adryan Faustin Comment [facility] Comment on above: Performed By: #### C ALCULI #### [facility] [address] [address] [address] Adryan Faustin Comment Comment [facility] Comment on above: Result Comment: Calc ulus received wet. Wet calculi must be dried before analysis, which delays reporting of results. Leaving calculi wet (such as water, saline, blood, urine) may lead to changes in composition. Performed By: #### C ALCULI #### [facility] [address] [place] [address] Dr. Adryan Faustin Comment: Comment Normal [facility] Comment on above: Result Comment: Alejandra sandoval questions regarding Calculi Analysis [facility] at: [phone]. Performed By: #### C ALCULI #### [facility] [address] [place] [address] Dr. Adryan Faustin Composition Comment [facility] Comment on above: Result Comment: Perc entage (Represents the % composition) Performed By: #### C ALCULI #### [facility] [address] [place] [address] Dr. Adryan Faustin Cystine [facility] Comment on above: Performed By: #### C ALCULI #### [facility] [address] [place] [address] Dr. Adryan Faustin Disclaimer: Comment Normal [facility] Comment on above: Result Comment: This test was developed and its performance characteristics determined by [facility]. It has not been cleared or approved by the Food and Drug Administration. Performed By: #### C ALCULI #### [facility] [address] [place] [address] Dr. Adryan Faustin Dried Blood Normal [facility] Comment on above: Performed By: #### C ALCULI #### [facility] [address] [place] [address] Dr. Adryan Faustin Drug or Metabolite Normal [facility] Comment on above: Performed By: #### C ALCULI #### [facility] [address] [place] [address] Dr. Adryan Faustin Hydroxyapatite Normal [facility] Comment on above: Performed By: #### C ALCULI #### [facility] [address] [place] [address] Dr. Adryan Faustin Mg NH4 PO4 (Struvite) Normal [facility] Comment on above: Performed By: #### C ALCULI #### [facility] [address] [place] [address] Dr. Adryan Faustin MgHPO4 (Newberyite) Normal [facility] Comment on above: Performed By: #### C ALCULI #### [facility] [address] [address] [address] Adryan Faustin Other component(s) Normal [facility] Comment on above: Performed By: #### C ALCULI #### [facility] [address] [address] [address] Adryan Faustin PDF . Normal [facility] Comment on above: Performed By: #### C ALCULI #### [facility] [address] [address] [address] Adryan Faustin Photo Comment [facility] Comment on above: Result Comment: Phot ograph will follow under a separate cover Performed By: #### C ALCULI #### [facility] [address] [address] [address] Adryan Faustin Please note: Comment Normal [facility] Comment on above: Result Comment: Calc gustavo report will follow via computer, mail or reproduction technician delivery. Performed By: #### C ALCULI #### [facility] [address] [address] [address] Adryan Faustin Size 5x2 [facility] Comment on above: Result Comment: Mult iple pieces received. Dimensions of the largest piece reported. Performed By: #### C ALCULI #### [facility] [address] [address] [address] Adryan Faustin Sodium Acid Urate Normal [facility] Comment on above: Performed By: #### C ALCULI #### [facility] [address] [address] [address] Adryan Faustin Source Comment [facility] Comment on above: Result Comment: Left Ureter Performed By: #### C ALCULI #### [facility] [address] [address] [address] Adryan Faustin Triamterene [facility] Comment on above: Performed By: #### C ALCULI #### [facility] [address] [address] [address] Adryan Faustin Uric Acid [facility] Comment on above: Performed By: #### C ALCULI #### [facility] [address] [address] [address] Adryan Faustin Uric Acid Dihydrate Normal [facility] Comment on above: Performed By: #### C ALCULI #### [facility] [address] [address] [address] Adryan Faustin Weight 80 mg [facility] Comment on above: Performed By: #### C ALCULI #### [facility] [address] [address] [address] Adryan Faustin Xanthine [facility] Comment on above: Performed By: #### C ALCULI #### [facility] [address] [address] [address] Adryan Faustin RAD - CT Reporton 03-26-2022 RAD - CT Report [id number] .00CD:127 Normal [facility] RAD - MISCon 03-26-2022 RAD - MISC [id number] .00CD:127 Normal [facility] RAD - MISC [id number] .00CD:127 Normal [facility] RAD - MISC [id number] .00CD:127 Normal [facility] CALCULI, URINARYon 2 2,8 Dihydroxyadenine [facility] Comment on above: Performed By: #### C ALCULI #### [facility] [address] [address] [address] Adryan Faustin Ammonium Acid Urate [facility] Comment on above: Performed By: #### C ALCULI #### [facility] [address] [address] [address] Adryan Faustin Bilirubin Ql (U) [facility] Comment on above: Performed By: #### C ALCULI #### [facility] [address] [address] [address] Adryan Faustin Ca Oxalate Dihydrate 20 % Normal [facility] Comment on above: Performed By: #### C ALCULI #### [facility] [address] [address] [address] Adryan Faustin CaHPO4 (Brushite) Normal [facility] Comment on above: Performed By: #### C ALCULI #### [facility] [address] [address] [address] Adryan Faustin Calcium Bilirubinate Normal [facility] Comment on above: Performed By: #### C ALCULI #### [facility] [address] [address] [address] Adryan Faustin Calcium Carbonate Normal [facility] Comment on above: Performed By: #### C ALCULI #### [facility] [address] [place] [address] Dr. Adryan Faustin Calcium Oxalate Monohydrate 80 % [facility] Comment on above: Performed By: #### C ALCULI #### [facility] [address] [address] [address] Adryan Faustin Calcium Palmitate Normal [facility] Comment on above: Performed By: #### C ALCULI #### [facility] [address] [address] [address] Adryan Faustin Calcium Phosphate Normal [facility] Comment on above: Performed By: #### C ALCULI #### [facility] [address] [address] [address] Adryan Faustin Calcium Stearate Normal [facility] Comment on above: Performed By: #### C ALCULI #### [facility] [address] [address] [address] Adryan Faustin Carbonate Apatite Normal [facility] Comment on above: Performed By: #### C ALCULI #### [facility] [address] [address] [address] Adryan Faustin Cellular Material Normal [facility] Comment on above: Performed By: #### C ALCULI #### [facility] [address] [address] [address] Adryan Faustin Cholesterol Normal [facility] Comment on above: Performed By: #### C ALCULI #### [facility] [address] [address] [address] Adryan Faustin Color (U) Brown Normal [facility] Comment on above: Performed By: #### C ALCULI #### [facility] [address] [address] [address] Adryan Faustin Comment Normal [facility] Comment on above: Performed By: #### C ALCULI #### [facility] [address] [address] [address] Adryan Faustin Comment: Comment Normal [facility] Comment on above: Result Comment: Alejandra sandoval questions regarding Calculi Analysis contact [employer] at: [phone]. Performed By: #### C ALCULI #### [facility] [address] [place] [address] Dr. Adryan Faustin Composition Comment [facility] Comment on above: Result Comment: Perc entage (Represents the % composition) Performed By: #### C ALCULI #### [facility] [address] [address] [address] Adryan Faustin Cystine Normal [facility] Comment on above: Performed By: #### C ALCULI #### [facility] [address] [address] [address] Adryan Faustin Disclaimer: Comment [facility] Comment on above: Result Comment: This test was developed and its performance characteristics determined by [facility]. It has not been cleared or approved by the Food and Drug Administration. Performed By: #### C ALCULI #### [facility] [address] [address] [address] Adryan Faustin Dried Blood Normal [facility] Comment on above: Performed By: #### C ALCULI #### [facility] [address] [address] [address] Adryan Faustin Drug or Metabolite Normal [facility] Comment on above: Performed By: #### C ALCULI #### [facility] [address] [address] [address] Adryan Faustin Hydroxyapatite Normal [facility] Comment on above: Performed By: #### C ALCULI #### [facility] [address] [address] [address] Adryan Faustin Mg NH4 PO4 (Struvite) [facility] Comment on above: Performed By: #### C ALCULI #### [facility] [address] [address] [address] Adryan Faustin MgHPO4 (Newberyite) Normal [facility] Comment on above: Performed By: #### C ALCULI #### [facility] [address] [address] [address] Adryan Faustin Other component(s) Normal [facility] Comment on above: Performed By: #### C ALCULI #### [facility] [address] [address] [address] Adryan Faustin PDF . Normal [facility] Comment on above: Performed By: #### C ALCULI #### [facility] [address] [address] [address] Adryan Faustin Photo Comment [facility] Comment on above: Result Comment: Phot ograph will follow under a separate cover Performed By: #### C ALCULI #### [facility] [address] [address] [address] Adryan Faustin Please note: Comment [facility] Comment on above: Result Comment: Calc gustavo report will follow via computer, mail or reproduction technician delivery. Performed By: #### C ALCULI #### [facility] [address] [address] [address] Adryan Faustin Size 2x2 [facility] Comment on above: Result Comment: Sing le piece received. Performed By: #### C ALCULI #### [facility] [address] [address] [address] Adryan Faustin Sodium Acid Urate [facility] Comment on above: Performed By: #### C ALCULI #### [facility] [address] [address] [address] Adryan Faustin Source Comment [facility] Comment on above: Result Comment: Yogesh mejia Ureter Performed By: #### C ALCULI #### [facility] [address] [place] [address] Dr. Adryan Faustin Triamterene [facility] Comment on above: Performed By: #### C ALCULI #### [facility] [address] [place] [address] Dr. Adryan Faustin Uric Acid [facility] Comment on above: Performed By: #### C ALCULI #### [facility] [address] [place] [address] Dr. Adryan Faustin Uric Acid Dihydrate [facility] Comment on above: Performed By: #### C ALCULI #### [facility] [address] [place] [address] Dr. Adryan Faustin Weight 13 mg [facility] Comment on above: Performed By: #### C ALCULI #### [facility] [address] [place] [address] Dr. Adryan Faustin Xanthine [facility] Comment on above: Performed By: #### C ALCULI #### [facility] [address] [place] [address] Dr. Adryan Faustin PROF 14(COMP METB)on 022 Albumin [Mass/Vol] 3.4 g/dL Normal 3.4-5.0 [facility] Comment on above: Performed By: #### C MP #### [facility] [address] [place] [address] Dr. Adryan Faustin Albumin/Globulin [Mass ratio] 1.0 {ratio} [facility] Comment on above: Performed By: #### C MP #### [facility] [address] [place] [address] Dr. Adryan Faustin ALP [Catalytic activity/Vol] 54 U/L Normal 46-116 [facility] Comment on above: Performed By: #### C MP #### [facility] [address] [place] [address] Dr. Adryan Faustin ALT [Catalytic activity/Vol] 13 U/L Critically low 14-59 [facility] Comment on above: Performed By: #### C MP #### [facility] [address] [address] [address] Adryan Faustin Anion gap [Moles/Vol] 12.5 mmol/L Normal [facility] Comment on above: Performed By: #### C MP #### [facility] [address] [address] [address] Adryan Faustin AST [Catalytic activity/Vol] 18 U/L Normal 15-37 [facility] Comment on above: Performed By: #### C MP #### [facility] [address] [address] [address] Adryan Faustin Bilirubin [Mass/Vol] 0.4 mg/dL Normal 0.2-1.0 [facility] Comment on above: Performed By: #### C MP #### [facility] [address] [address] [address] Adryan Faustin Calcium [Mass/Vol] 9.0 mg/dL Normal 8.5-10.1 [facility] Comment on above: Performed By: #### C MP #### [facility] [address] [address] [address] Adryan Faustin Chloride [Moles/Vol] 106 mmol/L Normal 98-107 [facility] Comment on above: Performed By: #### C MP #### [facility] [address] [address] [address] Adryan Faustin CO2 [Moles/Vol] 25.8 mmol/L Normal 21.0-32.0 [facility] Comment on above: Performed By: #### C MP #### [facility] [address] [address] [address] Adryan Faustin Creatinine [Mass/Vol] 1.43 mg/dL Critically high 0.55-1.02 [facility] Comment on above: Performed By: #### C MP #### [facility] [address] [address] [address] Adryan Faustin EGFR-AF [place] 46 mL/min/1.73m2 Critically low >=60 [facility] Comment on above: Performed By: #### C MP #### [facility] [address] [address] [address] Adryan Faustin EGFR-NON AF [place] 38 mL/min/1.73m2 Critically low >=60 [facility] Comment on above: Performed By: #### C MP #### [facility] [address] [address] [address] Adryan Faustin Globulin (S) [Mass/Vol] 3.3 g/dL Normal [facility] Comment on above: Performed By: #### C MP #### [facility] [address] [address] [address] Adryan Faustin Glucose [Mass/Vol] 83 mg/dL Normal 74-106 [facility] Comment on above: Performed By: #### C MP #### [facility] [address] [address] [address] Adryan Faustin Potassium [Moles/Vol] 4.3 mmol/L Normal 3.5-5.1 [facility] Comment on above: Performed By: #### C MP #### [facility] [address] [address] [address] Adryan Faustin Protein [Mass/Vol] 6.7 g/dL Normal 6.4-8.2 [facility] Comment on above: Performed By: #### C MP #### [facility] [address] [address] [address] Adryan Faustin Sodium [Moles/Vol] 140 mmol/L Normal 136-145 [facility] Comment on above: Performed By: #### C MP #### [facility] [address] [address] [address] Adryan Faustin Urea nitrogen [Mass/Vol] 12.0 mg/dL Normal 7.0-18.0 [facility] Comment on above: Performed By: #### C MP #### [facility] [address] [address] [address] Adryan Faustin Urea nitrogen/Creatinine [Mass ratio] 8.4 mg/mg Normal [facility] Comment on above: Performed By: #### C MP #### [facility] [address] [place] [address] Dr. Adryan Faustin XR KUB 1 VIEWon [...] by: BRADEN LANGSTON Date: 2022-03-23 07:14 Normal [facility] Consultation Noteon 03-20-20 Consultation Note [id number] .[id number]:127 Normal [facility] PROF CHEM 8 (BAS METB)on Anion gap [Moles/Vol] 11.1 mmol/L Normal [facility] Comment on above: Performed By: #### B MP #### [facility] [address] [place] [address] Dr. Adryan Faustin Calcium [Mass/Vol] 8.3 mg/dL Critically low 8.5-10.1 [facility] Comment on above: Performed By: #### B MP #### [facility] [address] [place] [address] Dr. Adryan Faustin Chloride [Moles/Vol] 112 mmol/L Critically high 98-107 [facility] Comment on above: Performed By: #### B MP #### [facility] [address] [place] [address] Dr. Adryan Faustin CO2 [Moles/Vol] 22.8 mmol/L Normal 21.0-32.0 [facility] Comment on above: Performed By: #### B MP #### [facility] [address] [place] [address] Dr. Adryan Faustin Creatinine [Mass/Vol] 1.41 mg/dL Critically high 0.55-1.02 [facility] Comment on above: Performed By: #### B MP #### [facility] [address] [address] [address] Adryan Faustin EGFR-AF [place] 47 mL/min/1.73m2 Critically low >=60 [facility] Comment on above: Performed By: #### B MP #### [facility] [address] [address] [address] Adryan Faustin EGFR-NON AF [place] 38 mL/min/1.73m2 Critically low >=60 [facility] Comment on above: Performed By: #### B MP #### [facility] [address] [address] [address] Adryan Faustin Glucose [Mass/Vol] 82 mg/dL Normal 74-106 [facility] Comment on above: Performed By: #### B MP #### [facility] [address] [address] [address] Adryan Faustin Potassium [Moles/Vol] 4.9 mmol/L Normal 3.5-5.1 [facility] Comment on above: Performed By: #### B MP #### [facility] [address] [address] [address] Adryan Faustin Sodium [Moles/Vol] 141 mmol/L Normal 136-145 [facility] Comment on above: Performed By: #### B MP #### [facility] [address] [address] [address] Adryan Faustin Urea nitrogen [Mass/Vol] 25.0 mg/dL Critically high 7.0-18.0 [facility] Comment on above: Performed By: #### B MP #### [facility] [address] [address] [address] Adryan Faustin Urea nitrogen/Creatinine [Mass ratio] 17.7 mg/mg Normal [facility] Comment on above: Performed By: #### B MP #### [facility] [address] [address] [address] Adryan Faustin CBC AUTO DIFFon 03-19-2022 BASO # 0.1 103/ul Normal 0.0-0.1 [facility] Comment on above: Performed By: #### C BC #### [facility] [address] [address] [address] Adryan Faustin Basophils/100 WBC (Bld) 0.9 % Normal 0.2-2.0 [facility] Comment on above: Performed By: #### C BC #### [facility] [address] [address] [address] Adryan Faustin EO # 0.1 103/ul Normal 0.0-0.7 [facility] Comment on above: Performed By: #### C BC #### [facility] [address] [address] [address] Adryan Faustin Eosinophils/100 WBC (Bld) 2.3 % Normal 0.9-7.0 [facility] Comment on above: Performed By: #### C BC #### [facility] [address] [place] [address] Dr. Adryan Faustin Erythrocyte distribution width (RBC) [Ratio] 15.9 % Critically high 11.0-15.0 [facility] Comment on above: Performed By: #### C BC #### [facility] [address] [place] [address] Dr. Adryan Faustin Hematocrit (Bld) [Volume fraction] 36.9 % Normal 36.0-48.0 [facility] Comment on above: Performed By: #### C BC #### [facility] [address] [place] [address] Dr. Adryan Faustin Hemoglobin (Bld) [Mass/Vol] 11.3 g/dL Critically low 12.0-16.0 [facility] Comment on above: Performed By: #### C BC #### [facility] [address] [place] [address] Dr. Adryan Faustin IG # 0.01 10e3/ul Normal 0.00-0.03 [facility] Comment on above: Performed By: #### C BC #### [facility] [address] [place] [address] Dr. Adryan Faustin IG % 0.2 % Normal 0.0-0.5 [facility] Comment on above: Performed By: #### C BC #### [facility] [address] [address] [address] Adryan Faustin LYMPH # 1.7 103/ul Normal 1.2-3.8 [facility] Comment on above: Performed By: #### C BC #### [facility] [address] [place] [address] Dr. Adryan Faustin Lymphocytes/100 WBC (Bld) 29.6 % Normal 20.5-60.0 [facility] Comment on above: Performed By: #### C BC #### [facility] [address] [place] [address] Dr. Adryan Faustin MANUAL DIFF REQ NO Normal [facility] Comment on above: Performed By: #### C BC #### [facility] [address] [place] [address] Dr. Adryan Faustin MCH (RBC) [Entitic mass] 24.1 pg Critically low 26.7-34.0 [facility] Comment on above: Performed By: #### C BC #### [facility] [address] [place] [address] Dr. Adryan Faustin MCHC (RBC) [Mass/Vol] 30.6 g/dL Normal 29.9-35.2 [facility] Comment on above: Performed By: #### C BC #### [facility] [address] [place] [address] Dr. Adryan Faustin MCV (RBC) [Entitic vol] 78.8 fL Critically low 81.0-99.0 [facility] Comment on above: Performed By: #### C BC #### [facility] [address] [place] [address] Dr. Adryan Faustin MONO # 0.4 103/ul Normal 0.3-0.8 [facility] Comment on above: Performed By: #### C BC #### [facility] [address] [place] [address] Dr. Adryan Faustin Monocytes/100 WBC (Bld) 7.5 % Normal 1.7-12.0 [facility] Comment on above: Performed By: #### C BC #### [facility] [address] [place], [place] [id number] Dr. Adryan Faustin NEUT # 3.3 103/ul Normal 1.4-6.5 [facility] Comment on above: Performed By: #### C BC #### [facility] [address] [place] [address] Dr. Adryan Faustin Neutrophils/100 WBC (Bld) 59.5 % Normal 43.0-75.0 [facility] Comment on above: Performed By: #### C BC #### [facility] [address] [place] [address] Dr. Adryan Faustin Platelet mean volume (Bld) [Entitic vol] 8.5 fL Critically low 9.5-13.5 [facility] Comment on above: Performed By: #### C BC #### [facility] [address] [place] [address] Dr. Ardyan Faustin PLT 320 103/ul Normal 150-450 [facility] Comment on above: Performed By: #### C BC #### [facility] [address] [place] [address] Dr. Adryan Faustin RBC 4.68 106/ul Normal 4.20-5.40 [facility] Comment on above: Performed By: #### C BC #### [facility] [address] [place] [address] Dr. Adryan Faustin WBC 5.6 103/ul Normal 4.0-11.0 [facility] Comment on above: Performed By: #### C BC #### [facility] [address] [place] [address] ABD/PELVIS WO CONon [...] NATACHA WILD Date: 2022-03-19 09:58 Normal [facility] CULTURE URINEon 03-19-2022 CULTURE URINE Culture Observations : NO GROWTH Normal [facility] Comment on above: Performed By: #### C ALCULI #### [facility] [address] [address] [address] Adryan Faustin Covid-19 PCR ([facility])on 02-22 SARS-CoV-2 (COVID-19) RNA GOOD+probe Ql (Unsp spec) Not detected Normal NOT DETECTED [facility] Comment on above: Result Comment: When [...] for this test is supported by the [place] of [employer] and Human Service's declaration that [...] used). Performed By: #### C ALCULI #### [facility] [address] [place] [address] Dr. Adryan Faustin ER URINE PROFILEon 2 Bilirubin Ql (U) MODERATE Abnormal NEGATIVE [facility] Comment on above: Performed By: #### E IZABELLAR UMICRO #### [facility] [address] [place] [address] Dr. Adryan Faustin Clarity (U) CLEAR Normal CLEAR [facility] Comment on above: Performed By: #### E RUR UMICRO #### [facility] [address] [place] [address] Dr. Adryan Faustin Color (U) DK. YELLOW Normal YELLOW [facility] Comment on above: Performed By: #### E MO UMICRO #### [facility] [address] [place] [address] Dr. Adryan Faustin ERUSHIRLENED A micrscopic examination will be performed if indicated. Normal [facility] Comment on above: Performed By: #### E RUR, UMICRO #### [facility] [address] [place] [address] Dr. Adryan Faustin Glucose Ql (U) Negative Normal NEGATIVE [facility] Comment on above: Performed By: #### E RUR, UMICRO #### [facility] [address] [place] [address] Dr. Adryan Faustin Hemoglobin Ql (U) LARGE Abnormal NEGATIVE [facility] Comment on above: Performed By: #### E IZABELLAR UMICRO #### [facility] [address] [place] [address] Dr. Adryan Faustin Ketones Ql (U) TRACE Abnormal NEGATIVE [facility] Comment on above: Performed By: #### CHRISTINA MARTINRO #### [facility] [address] [place] [address] Dr. Adryan Faustin LEUKOCYTES TRACE Abnormal NEGATIVE [facility] Comment on above: Performed By: #### CHRISTINA MARTINRO #### [facility] [address] [place] [address] Dr. Adryan Faustin Nitrite Ql (U) Negative Normal NEGATIVE [facility] Comment on above: Performed By: #### VERONICA MARTIN #### [facility] [address] [place] [address] Dr. Adryan Faustin pH (U) 5.5 [pH] Normal 5-9 [facility] Comment on above: Performed By: #### VERONICA MARTIN #### [facility] [address] [place] [address] Dr. Adryan Faustin Protein (U) [Mass/Vol] 100 mg/dL Abnormal NEGAT CRISS/ TRACE [facility] Comment on above: Performed By: #### VERONICA MARTIN #### [facility] [address] [place] [address] Dr. Adryan Faustin SPEC GRAVITY >=1.030 Abnormal 1.005-<=1.02 5 [facility] Comment on above: Performed By: #### CHRISTINA MARTINRO #### [facility] [address] [place] [address] Dr. Adryan Faustin UR MICRO IND INDICATED Normal [facility] Comment on above: Performed By: #### CHRISTINA MARTINRO #### [facility] [address] [place] [address] Dr. Adryan Faustin Urobilinogen Qn (U) 1.0 {Coby'U}/dL Normal 0.2 - 1. 0 [facility] Comment on above: Performed By: #### VERONICA MARTIN #### [facility] [address] [place] [address] Dr. Adryan Faustin PROF 14(COMP METB)on 022 Albumin [Mass/Vol] 3.7 g/dL Normal 3.4-5.0 [facility] Comment on above: Performed By: #### C MP #### [facility] [address] [place] [address] Dr. Adryan Faustin Albumin/Globulin [Mass ratio] 1.0 {ratio} Normal [facility] Comment on above: Performed By: #### C MP #### [facility] [address] [place] [address] Dr. Adryan Faustin ALP [Catalytic activity/Vol] 60 U/L Normal 46-116 [facility] Comment on above: Performed By: #### C MP #### [facility] [address] [place] [address] Dr. Adryan Faustin ALT [Catalytic activity/Vol] 17 U/L Normal 14-59 [facility] Comment on above: Performed By: #### C MP #### [facility] [address] [place] [address] Dr. Adryan Faustin Anion gap [Moles/Vol] 14.6 mmol/L Normal [facility] Comment on above: Performed By: #### C MP #### [facility] [address] [place] [address] Dr. Adryan Faustin AST [Catalytic activity/Vol] 18 U/L Normal 15-37 [facility] Comment on above: Performed By: #### C MP #### [facility] [address] [place] [address] Dr. Adryan Faustin Bilirubin [Mass/Vol] 0.5 mg/dL Normal 0.2-1.0 [facility] Comment on above: Performed By: #### C MP #### [facility] [address] [place] [address] Dr. Adryan Faustin Calcium [Mass/Vol] 9.2 mg/dL Normal 8.5-10.1 [facility] Comment on above: Performed By: #### C MP #### [facility] [address] [address] [address] Adryan Faustin Chloride [Moles/Vol] 105 mmol/L Normal 98-107 [facility] Comment on above: Performed By: #### C MP #### [facility] [address] [address] [address] Adryan Faustin CO2 [Moles/Vol] 24.1 mmol/L Normal 21.0-32.0 [facility] Comment on above: Performed By: #### C MP #### [facility] [address] [address] [address] Adryan Faustin Creatinine [Mass/Vol] 1.97 mg/dL Critically high 0.55-1.02 [facility] Comment on above: Performed By: #### C MP #### [facility] [address] [address] [address] Adryan Faustin EGFR-AF [place] 32 mL/min/1.73m2 Critically low >=60 [facility] Comment on above: Performed By: #### C MP #### [facility] [address] [address] [address] Adryan Faustin EGFR-NON AF [place] 26 mL/min/1.73m2 Critically low >=60 [facility] Comment on above: Performed By: #### C MP #### [facility] [address] [address] [address] Adryan Faustin Globulin (S) [Mass/Vol] 3.8 g/dL Normal [facility] Comment on above: Performed By: #### C MP #### [facility] [address] [address] [address] Adryan Faustin Glucose [Mass/Vol] 91 mg/dL Normal 74-106 [facility] Comment on above: Performed By: #### C MP #### [facility] [address] [address] [address] Adryan Faustin Potassium [Moles/Vol] 4.7 mmol/L Normal 3.5-5.1 [facility] Comment on above: Performed By: #### C MP #### [facility] [address] [address] [address] Adryan Faustin Protein [Mass/Vol] 7.5 g/dL Normal 6.4-8.2 [facility] Comment on above: Performed By: #### C MP #### [facility] [address] [place] [address] Dr. Adryan Faustin Sodium [Moles/Vol] 139 mmol/L Normal 136-145 [facility] Comment on above: Performed By: #### C MP #### [facility] [address] [place] [address] Dr. Adryan Faustin Urea nitrogen [Mass/Vol] 32.0 mg/dL Critically high 7.0-18.0 [facility] Comment on above: Performed By: #### C MP #### [facility] [address] [place] [address] Dr. Adryan Faustin Urea nitrogen/Creatinine [Mass ratio] 16.2 mg/mg Normal [facility] Comment on above: Performed By: #### C MP #### [facility] [address] [place] [address] Dr. Adryan Faustin URINE MICROSCOPIC ONLYon BACTERIA SMALL Abnormal NONE SEEN [facility] Comment on above: Performed By: #### CHRISTINA MARTINRO #### [facility] [address] [place] [address] Dr. Adryan Faustin Bacteria identified Cx Nom (U) INDICATED Normal [facility] Comment on above: Performed By: #### CHRISTINA MARTINRO #### [facility] [address] [place] [address] Dr. Adryan Faustin CAST NONE SEEN Normal NONE SEEN [facility] Comment on above: Performed By: #### Ghada HASSAN UMICRO #### [facility] [address] [place] [address] Dr. Adryan Faustin Crystals LM Nom (Urine sed) NONE SEEN Normal NONE SEEN [facility] Comment on above: Performed By: #### Ghada HASSAN UMICRO #### [facility] [address] [place] [address] Dr. Adryan Faustin Epithelial cells LM Ql (Urine sed) FEW Abnormal NONE SEEN /RARE [facility] Comment on above: Performed By: #### E RUR, UMICRO #### [facility] [address] [address] [address] Adryan Faustin MUCOUS NONE SEEN Normal NONE SEEN [facility] Comment on above: Performed By: #### E RUR, UMICRO #### [facility] [address] [address] [address] Adryan Fuastin RBC 75-100 Abnormal 0-2 [facility] Comment on above: Performed By: #### E RUR, UMICRO #### [facility] [address] [address] [address] Adryan Faustin WBC 5-10 Abnormal NONE SEEN [facility] Comment on above: Performed By: #### E RUR, UMICRO #### [facility] [address] [place] [address] Dr. Adryan Faustin MICROALBUMIN/ CREATININE RAT IOon 02-04-2022 Albumin, Urine 21.0 ug/mL Normal Not Estab. [facility] Comment on above: Performed By: #### M ALBCRL #### [facility] [address] [address] [address] Adryan Faustin Albumin/ Creatinine Ratio 18 mg/g creat Normal 0-29 [facility] Comment on above: Result Comment: Norm al: 0 - 29 Moderately increased: 30 - 300 Severely increased: >300 Performed By: #### M ALBCRL #### [facility] [address] [address] [address] Adryan Faustin Creatinine, Urine 116.4 mg/dL Normal Not Estab. [facility] Comment on above: Performed By: #### M ALBCRL #### [facility] [address] [address] [address] Adryan Faustin GLYCOHEMOGLOBIN A1Con 2021 ADA RECOMMENDATION SEE BELOW Normal [facility] Comment on above: Result Comment: ADA RECOMMENDED LIMIT 4.0 - 6.0 ADA THERAPEUTIC TARGET < 7.0 ACTION SUGGESTED > 7.0 Performed By: #### C ALCULI #### [facility] [address] [address] [address] Adryan Faustin Glucose [Mass/Vol] 128 mg/dL Normal [facility] Comment on above: Performed By: #### C ALCULI #### [facility] [address] [address] [address] Adryan Faustin HbA1c (Bld) [Mass fraction] 6.1 % Normal 4.5-6.2 [facility] Comment on above: Performed By: #### C ALCULI #### [facility] [address] [address] [address] Adryan Faustin LIPID PROFILEon 02-03-2022 CHOL-HDL RATIO NORM SEE BELOW Normal [facility] Comment on above: Result Comment: 3.3 - 4.4 LOW RISK 4.4 - 7.1 AVERAGE RISK 7.1 - 11.0 MODERATE RISK >11.0 HIGH RISK Performed By: #### L IPID, CMP #### [facility] [address] [place] [address] Dr. Adryan Faustin Cholesterol [Mass/Vol] 175 mg/dL Normal <=200 [facility] Comment on above: Performed By: #### L IPID, CMP #### [facility] [address] [address] [address] Adryan Faustin Cholesterol in HDL [Mass/Vol] 51 mg/dL Normal 40-60 [facility] Comment on above: Performed By: #### L IPID, CMP #### [facility] [address] [address] [address] Adryan Faustin Cholesterol in LDL [Mass/Vol] 113.6 mg/dL Normal [facility] Comment on above: Performed By: #### L IPID, CMP #### [facility] [address] [address] [address] Adryan Faustin Cholesterol.total/Chol esterol in HDL [Mass ratio] 3.4 {ratio} Normal [facility] Comment on above: Performed By: #### L IPID, CMP #### [facility] [address] [address] [address] Adryan Faustin HDL NORMAL > or = 60 mg/dl - LO W CARDIOVASCULAR RISK <40 mg/dl - HIGH CARDIOVASCULAR RISK Normal [facility] Comment on above: Performed By: #### L IPID, CMP #### [facility] [address] [place] [address] Dr. Adryan Faustin LDL CALC NORMAL SEE BELOW Normal [facility] Comment on above: Result Comment: <100 mg/dl OPTIMAL 100 - 129 mg/dl NEAR OR ABOVE OPTIMAL 130 - 159 mg/dl BORDERLINE HIGH 160 - 189 mg/dl HIGH >190 mg/dl VERY HIGH Performed By: #### L IPID, CMP #### [facility] [address] [address] [address] Adryan Faustin Triglyceride [Mass/Vol] 52 mg/dL Normal <=150 [facility] Comment on above: Performed By: #### L IPID, CMP #### [facility] [address] [place] [address] Dr. Adryan Faustin VLDL CALC 10.4 mg/dL Normal [facility] Comment on above: Performed By: #### L IPID, CMP #### [facility] [address] [place] [address] Dr. Adryan Faustin PROF 14(COMP METB)on 022 Albumin [Mass/Vol] 3.2 g/dL Critically low 3.4-5.0 [facility] Comment on above: Performed By: #### L IPID, CMP #### [facility] [address] [place] [address] Dr. Adryan Faustin Albumin/Globulin [Mass ratio] 0.9 {ratio} Normal [facility] Comment on above: Performed By: #### L IPID, CMP #### [facility] [address] [place] [address] Dr. Adryan Faustin ALP [Catalytic activity/Vol] 76 U/L Normal 46-116 [facility] Comment on above: Performed By: #### L IPID, CMP #### [facility] [address] [place] [address] Dr. Adrayn Faustin ALT [Catalytic activity/Vol] 10 U/L Critically low 14-59 [facility] Comment on above: Performed By: #### L IPID, CMP #### [facility] [address] [address] [address] Adryan Faustin Anion gap [Moles/Vol] 12.2 mmol/L Normal [facility] Comment on above: Performed By: #### L IPID, CMP #### [facility] [address] [address] [address] Adryan Faustin AST [Catalytic activity/Vol] 15 U/L Normal 15-37 [facility] Comment on above: Performed By: #### L IPID, CMP #### [facility] [address] [address] [address] Adryan Faustin Bilirubin [Mass/Vol] 0.4 mg/dL Normal 0.2-1.0 [facility] Comment on above: Performed By: #### L IPID, CMP #### [facility] [address] [place] [address] Dr. Adryan Faustin Calcium [Mass/Vol] 9.0 mg/dL Normal 8.5-10.1 [facility] Comment on above: Performed By: #### L IPID, CMP #### [facility] [address] [address] [address] Adryan Faustin Chloride [Moles/Vol] 106 mmol/L Normal 98-107 [facility] Comment on above: Performed By: #### L IPID, CMP #### [facility] [address] [address] [address] Adryan Faustin CO2 [Moles/Vol] 27.6 mmol/L Normal 21.0-32.0 [facility] Comment on above: Performed By: #### L IPID, CMP #### [facility] [address] [address] [address] Adryan Faustin Creatinine [Mass/Vol] 1.17 mg/dL Critically high 0.55-1.02 [facility] Comment on above: Performed By: #### L IPID, CMP #### [facility] [address] [address] [address] Adryan Faustin EGFR-AF [place] 58 mL/min/1.73m2 Critically low >=60 [facility] Comment on above: Performed By: #### L IPID, CMP #### [facility] [address] [address] [address] Adryan Faustin EGFR-NON AF [place] 48 mL/min/1.73m2 Critically low >=60 [facility] Comment on above: Performed By: #### L IPID, CMP #### [facility] [address] [address] [address] Adryan Faustin Globulin (S) [Mass/Vol] 3.7 g/dL Normal [facility] Comment on above: Performed By: #### L IPID, CMP #### [facility] [address] [address] [address] Adryan Faustin Glucose [Mass/Vol] 86 mg/dL Normal 74-106 [facility] Comment on above: Performed By: #### L IPID, CMP #### [facility] [address] [place] [address] Dr. Adryan Faustin Potassium [Moles/Vol] 4.8 mmol/L Normal 3.5-5.1 [facility] Comment on above: Performed By: #### L IPID, CMP #### [facility] [address] [place] [address] Dr. Adryan Faustin Protein [Mass/Vol] 6.9 g/dL Normal 6.4-8.2 [facility] Comment on above: Performed By: #### L IPID, CMP #### [facility] [address] [place] [address] Dr. Adryan Faustin Sodium [Moles/Vol] 141 mmol/L Normal 136-145 [facility] Comment on above: Performed By: #### L IPID, CMP #### [facility] [address] [address] [address] Adryan Faustin Urea nitrogen [Mass/Vol] 13.0 mg/dL Normal 7.0-18.0 [facility] Comment on above: Performed By: #### L IPID, CMP #### [facility] [address] [address] [address] Adryan Faustin Urea nitrogen/Creatinine [Mass ratio] 11.1 mg/mg Normal [facility] Comment on above: Performed By: #### L IPID, [facility] #### [facility] [address] [address] [address] Adryan Faustin US JUMANA DOP LEG [...] by: NATACHA WILD Date: 2022-02-02 11:46 Normal [facility] [id number] 07-25-2020 SARS-CoV-2 Not Detected Normal [facility] Comment on above: Result Comment: The specimen [...] this assay. Fact sheet for Healthcare Providers: https://www.fda.gov/media/978754/download Fact sheet for Patients: https://www.fda.gov/media/722473/download METHODOLOGY: RT-PCR Performed By: #### A COV #### [facility] [address] [place] [address] Vest Presser: Hugo Welch MD SARS-CoV-2 [facility] Comment on above: Performed By: #### A COV #### [facility] [address] [place] [address] Vest Presser: Hugo Welch MD [id number] 07-24-2020 SARS-CoV-2 Source .NASOPHARYNGEAL SWAB [facility] Comment on above: Performed By: #### A COV #### [facility] [address] [place] [address] Vest Presser: Hugo Welch MD [id number] 07-18-2020 SARS-CoV-2 Not Detected [facility] Comment on above: Result Comment: The [...] this assay. Fact sheet for Healthcare Providers: https://www.fda.gov/media/046364/download Fact sheet for Patients: https://www.fda.gov/media/150438/download METHODOLOGY: RT-PCR Performed By: #### C OVID #### [address] [address] Vest Presser: Ankush Moser MD SARS-CoV-2 [facility] Comment on above: Performed By: #### C OVID #### [address] [place], [place] [id number] Vest Presser: Ankush Moser MD [id number] 07-17-2020 SARS-CoV-2 Source .NASOPHARYNGEAL SWAB Normal [facility] Comment on above: Performed By: #### C OVID #### [address] [id number] Vest Presser: Ankush Moser MD [id number] 07-01-2020 SARS-CoV-2 Not Detected Normal [facility] Comment on above: Result Comment: The specimen is NEGATIVE for SARS-CoV-2, the novel coronavirus associated with COVID-19. A negative result does not rule out COVID-19. Te[employer] SARS-CoV-2 for use on the [employer] is a real-time RT-PCR test intended [...] this assay. Fact sheet for Healthcare Providers: https://www.fda.gov/media/437952/download Fact sheet for Patients: https://www.fda.gov/media/036024/download METHODOLOGY: RT-PCR Performed By: #### C OVID #### [address] [id number] Vest Presser: Ankush Moser MD SARS-CoV-2 [facility] Comment on above: Performed By: #### C OVID #### [address] [place] [address] Vest Presser: Ankush Moser MD SARS-CoV-2,[facility] Comment on above: Performed By: #### C OVID #### [address] [id number] Vest Presser: Ankush Moser MD [id number] 06-29-2020 SARS-CoV-2 Source .NASOPHARYNGEAL SWAB [facility] Comment on above: Performed By: #### C OVID #### [address] [address] Vest Presser: MD TOYIN Coronado-CoV-2on 06-16-2020 SARS-CoV-2 [facility] Comment on above: Performed By: #### C OVID #### [address] [address] Vest Presser: Ankush Moser MD SARS-CoV-2 Not Detected [facility] Comment on above: Result Comment: The specimen is NEGATIVE for SARS-CoV-2, the novel coronavirus associated with COVID-19. A negative result does not rule out COVID-19. Teodoro SARS-CoV-2 for use on the [employer] is a real-time RT-PCR test intended [...] this assay. Fact sheet for Healthcare Providers: https://www.fda.gov/media/755836/download Fact sheet for Patients: https://www.fda.gov/media/188041/download METHODOLOGY: RT-PCR Performed By: #### C OVID #### [address] [place], [place] [id number] Vest Presser: Ankush Moser MD SARS-CoV-2,Rapid Normal [facility] Comment on above: Performed By: #### C OVID #### [facility] [address] [place] [id number] Vest Presser: Ankush Moser MD [id number] 06-14-2020 SARS-CoV-2 Source .NASOPHARYNGEAL SWAB Normal [facility] Comment on above: Performed By: #### C OVID #### [address] [id number] Vest Presser: Ankush Moser MD [id number] 06-02-2020 SARS-CoV-2 Not Detected Normal Not Detected [facility] Comment on above: Result Comment: (NOT E) This nucleic acid amplification test was developed and its performance characteristics determined by [employer]. Nucleic acid amplification tests include PCR and [...] detected) result in this assay. Performed At: [facility] [address] [place], [place] [id number] Camryn Nieto MD Ph:[phone] Performed By: #### A COV #### [facility] [address] [place] [address] Vest Presser: Hugo Welch MD [id number] 05-25-2020 SARS-CoV-2 Not Detected Normal Not Detected [facility] Comment on above: Result Comment: (NOT E) This nucleic acid amplification test was developed and its performance characteristics determined by [employer]. Nucleic acid amplification tests include PCR and [...] detected) result in this assay. Performed At: [facility] [address] [place], [place] [id number] Camryn Nieto MD Ph:[phone] Performed By: #### A COV #### [facility] [address] [place] [address] Vest Presser: Hugo Welch MD [id number] 05-10-2020 SARS-CoV-2 Not Detected Normal Not Detected [facility] Comment on above: Result Comment: (NOT E) This nucleic acid amplification test was developed and its performance characteristics determined by [employer]. Nucleic acid amplification tests include PCR and [...] detected) result in this assay. Performed At: [facility] [address] [facility] [place] [id number] Camryn Nieto MD Ph:[phone] Performed By: #### A COV #### [facility] [address] [place] [address] Vest Presser: Hugo Welch MD [id number] 05-04-2020 SARS-CoV-2 Not Detected Normal Not Detected [facility] Comment on above: Result Comment: (NOT E) This nucleic acid amplification test was developed and its performance characteristics determined by [employer]. Nucleic acid amplification tests include PCR and [...] detected) result in this assay. Performed At: [facility] [address] [place], [place] [id number] Jefry Shirley PhD Ph:[phone] Performed By: #### A COV #### [facility] [address] [place] [address] Vest Presser: Hugo Welch MD [id number] 04-13-2020 SARS-CoV-2 Not Detected Normal Not Detected [facility] Comment on above: Result Comment: (NOT E) This nucleic acid amplification test was developed and its performance characteristics determined by [employer]. Nucleic acid amplification tests include PCR and [...] detected) result in this assay. Performed At: [facility] [address] [facility] [place] [id number] Camryn Nieto MD Ph:[phone] Performed By: #### A COV #### [facility] [address] [place] [address] Vest Presser: Hugo Welch MD [id number] 03-16-2020 SARS-CoV-2 Not Detected Normal Not Detected [facility] Comment on above: Result Comment: (NOT E) This nucleic acid amplification test was developed and its performance characteristics determined by [employer]. Nucleic acid amplification tests include PCR and [...] this assay. Performed At: [facility] [address] [place], [place] [id number] Nick Alexander [facility] Ph:[phone] Performed By: #### A COV #### [facility] [address], [place] [id number] Vest Presser: Hugo Welch MD [id number] 03-05-2020 SARS-CoV-2 Not Detected Normal Not Detected [facility] Comment on above: Result Comment: (NOT E) This nucleic acid amplification test was developed and its performance characteristics determined by [employer]. Nucleic acid amplification tests include PCR and [...] detected) result in this assay. Performed At: [facility] [address] [facility] [place] [id number] Camryn Nieto MD Ph:[phone] Performed By: #### A COV #### [facility] [address] [place] [address] Vest Presser: Hugo Welch MD Vital Signs Date Time Vital Sign Value Performing Clinician Facility 06-21-2023 10:55-0500 Body height 160 cm Justin Marley MD Work Phone: [facility] 06-21-2023 10:55-0500 Body mass index (BMI) [Ratio] 22.67 kg/m2 Justin Marley MD Work Phone: [facility] 06-21-2023 10:55-0500 Body weight 58.06 kg Justin aMrley MD Work Phone: [facility] 06-21-2023 10:55-0500 Diastolic blood pressure 74 mm[Hg] Justin Marley MD Work Phone: [facility] 06-21-2023 10:55-0500 Heart rate 82 /min Justin Marley MD Work Phone: [facility] 06-21-2023 10:55-0500 SaO2% (BldA) [Mass fraction] 96 % Justin Marley MD Work Phone: [facility] 06-21-2023 10:55-0500 Systolic blood pressure 126 mm[Hg] Justin Marley MD Work Phone: [facility] 09-28-2022 13:04-0400 Body height 160 cm Marley RODGERS-C Work Phone: [facility] 09-28-2022 13:04-0400 Body weight 60.78 kg Marley Brown PA-C Work Phone: [facility] 09-28-2022 13:04-0400 Diastolic blood pressure 79 mm[Hg] Marley O Larisa PA-C Work Phone: [facility] 09-28-2022 13:04-0400 Heart rate 75 /min Marley O Larisa PA-C Work Phone: [facility] 09-28-2022 13:04-0400 Systolic blood pressure 119 mm[Hg] Marley O Larisa PA-C Work Phone: [facility] 09-07-2022 08:55-0400 Body weight 60.78 kg Marley O Larisa PA-C Work Phone: [facility] 09-07-2022 08:55-0400 Diastolic blood pressure 69 mm[Hg] Marley O Larisa PA-C Work Phone: [facility] 09-07-2022 08:55-0400 Heart rate 77 /min Marley O Larisa PA-C Work Phone: [facility] 09-07-2022 08:55-0400 Systolic blood pressure 103 mm[Hg] Marley O Larisa PA-C Work Phone: [facility] 07-14-2022 10:21-0500 Body height 157.9 cm Samy Odonnell MD Work Phone: [facility] 07-14-2022 10:21-0500 Body weight 62.32 kg Samy Odonnell MD Work Phone: [facility] 07-14-2022 10:21-0500 Diastolic blood pressure 80 mm[Hg] Samy Odonnell MD Work Phone: [facility] 07-14-2022 10:21-0500 Heart rate 84 /min Samy Odonnell MD Work Phone: [facility] 07-14-2022 10:21-0500 Systolic blood pressure 121 mm[Hg] Samy Odonnell MD Work Phone: [facility] 07-07-2022 09:14-0500 Blood Pressure Location Chalo KULWANT [facility] 07-07-2022 09:14-0500 Diastolic blood pressure 86 mm[Hg] Chalo COOK [facility] 07-07-2022 09:14-0500 Heart rate 76 /min Chalo COOK [facility] 07-07-2022 09:14-0500 Systolic blood pressure 115 mm[Hg] Chalo COOK [facility] 06-18-2022 13:16-0500 Heart rate 82 /min Chalo COOK [facility] 06-18-2022 13:16-0500 SaO2% (BldA) [Mass fraction] 99 % Chalo COOK [facility] 06-18-2022 13:16-0500 Respiratory rate 16 /min Chalo COOK [facility] 06-18-2022 13:15-0500 Body temperature 97.34 [degF] Chalo COOK [facility] 06-18-2022 13:15-0500 Diastolic blood pressure 84 mm[Hg] Chalo COOK [facility] 06-18-2022 13:15-0500 Mean blood pressure 101 mm[Hg] Chalo COOK [facility] 06-18-2022 13:15-0500 Systolic blood pressure 133 mm[Hg] Chalo COOK [facility] 06-18-2022 12:25-0500 Blood Pressure Location Chalo COOK [facility] 06-18-2022 12:25-0500 Diastolic blood pressure 87 mm[Hg] Chalo COOK [facility] 06-18-2022 12:25-0500 Heart rate 75 /min Chalo COOK [facility] 06-18-2022 12:25-0500 Mean blood pressure 104 mm[Hg] Chalo COOK [facility] 06-18-2022 12:25-0500 Respiratory rate 16 /min Chalo COOK [facility] 06-18-2022 12:25-0500 SaO2% (BldA) [Mass fraction] 100 % Chalo COOK [facility] 06-18-2022 12:25-0500 Systolic blood pressure 137 mm[Hg] Chalo COOK [facility] 06-18-2022 12:20-0500 Body temperature 97.88 [degF] Chalo COOK [facility] 06-18-2022 12:20-0500 Diastolic blood pressure 77 mm[Hg] Chalo COOK [facility] 06-18-2022 12:20-0500 Heart rate 73 /min Chalo COOK [facility] 06-18-2022 12:20-0500 Mean blood pressure 97 mm[Hg] Chalo COOK [facility] 06-18-2022 12:20-0500 Respiratory rate 19 /min Chalo COOK [facility] 06-18-2022 12:20-0500 SaO2% (BldA) [Mass fraction] 100 % Chalo COOK [facility] 06-18-2022 12:20-0500 Systolic blood pressure 136 mm[Hg] Chalo COOK [facility] 06-18-2022 12:10-0500 Mean blood pressure 97 mm[Hg] Chalo COOK [facility] 06-18-2022 12:10-0500 Respiratory rate 17 /min Chalo COOK [facility] 06-18-2022 12:05-0500 Respiratory rate 17 /min Chalo COOK [facility] 06-18-2022 11:55-0500 Body temperature 97.34 [degF] Chalo COOK [facility] 06-18-2022 11:50-0500 Respiratory rate 6 /min Chalo COOK [facility] 06-18-2022 09:30-0500 Mean blood pressure 96 mm[Hg] Chalo COOK [facility] 06-18-2022 09:30-0500 Heart rate 78 /min Chalo COOK [facility] 06-18-2022 09:29-0500 Body temperature 97.7 [degF] Chalo COOK [facility] 06-18-2022 09:29-0500 Mean blood pressure 105 mm[Hg] Chalo COOK [facility] 06-11-2022 09:32-0500 Diastolic blood pressure 86 mm[Hg] Chalo COOK [facility] 06-11-2022 09:32-0500 Heart rate 79 /min Chalo COOK [facility] 06-11-2022 09:32-0500 Mean blood pressure 104 mm[Hg] Chalo COOK [facility] 06-11-2022 09:32-0500 Systolic blood pressure 138 mm[Hg] Chalo COOK [facility] 06-11-2022 09:32-0500 Heart rate 85 /min Chalo COOK [facility] 06-11-2022 09:32-0500 SaO2% (BldA) [Mass fraction] 98 % Chalo BLUM [facility] 06-11-2022 09:32-0500 Blood Pressure Location Chalo BLUM [facility] 06-11-2022 09:32-0500 Body temperature 97.34 [degF] Chalo BLUM [facility] 06-11-2022 09:31-0500 Diastolic blood pressure 84 mm[Hg] Chalo BLUM [facility] 06-11-2022 09:31-0500 Mean blood pressure 106 mm[Hg] Chalo BLUM [facility] 06-11-2022 09:31-0500 Systolic blood pressure 149 mm[Hg] Chalo BLUM [facility] 06-11-2022 09:31-0500 Blood Pressure Location Chalo BLUM [facility] 05-05-2022 15:50-0500 Diastolic blood pressure 80 mm[Hg] Balbina Napoles Work Phone: [facility] [employer] [address] DO Work Phone: 05-05-2022 15:50-0500 Systolic blood pressure 98 mm[Hg] Balbina Napoles Work Phone: [facility] DO Work Phone: 05-05-2022 15:49-0500 Body height 160.02 cm Balbina Napoles Work Phone: [facility] DO Work Phone: 05-05-2022 15:49-0500 Body mass index (BMI) [Ratio] 26.22 kg/m2 Balbina Napoles Work Phone: [facility] DO Work Phone: 05-05-2022 15:49-0500 Body surface area Derived from formula 1.7 m2 Balbina Napoles Work Phone: [facility] DO Work Phone: 05-05-2022 15:49-0500 Body weight 67.13 kg Balbina Napoles Work Phone: [facility] DO Work Phone: 05-05-2022 15:49-0500 Diastolic blood pressure 64 mm[Hg] Balbina Napoles Work Phone: [facility] DO Work Phone: 05-05-2022 15:49-0500 Heart rate 128 /min Balbina Napoles Work Phone: [facility] DO Work Phone: 05-05-2022 15:49-0500 Systolic blood pressure 92 mm[Hg] Balbina Napoles Work Phone: [facility] DO Work Phone: 04-17-2022 07:26-0500 Diastolic blood pressure 72 mm[Hg] Chalo BLUM [facility] 04-17-2022 07:26-0500 Heart rate 86 /min Chalo BLUM [facility] 04-17-2022 07:26-0500 Mean blood pressure 85 mm[Hg] Chalo BLUM [facility] 04-17-2022 07:26-0500 Systolic blood pressure 109 mm[Hg] Chalo BLUM [facility] 04-17-2022 07:25-0500 Body temperature 98.42 [degF] Chalo BLUM [facility] 04-17-2022 07:25-0500 Diastolic blood pressure 68 mm[Hg] Chalo COOK [facility] 04-17-2022 07:25-0500 Heart rate 82 /min Chalo COOK [facility] 04-17-2022 07:25-0500 Mean blood pressure 82 mm[Hg] Chalo COOK [facility] 04-17-2022 07:25-0500 Respiratory rate 16 /min Chalo COOK [facility] 04-17-2022 07:25-0500 SaO2% (BldA) [Mass fraction] 96 % Chalo BLUM [facility] 04-17-2022 07:25-0500 Systolic blood pressure 111 mm[Hg] Chalo BLUM [facility] 03-31-2022 13:11-0500 Blood Pressure Location Chalo COOK [facility] 03-31-2022 13:11-0500 Diastolic blood pressure 87 mm[Hg] Chalo COOK [facility] 03-31-2022 13:11-0500 Heart rate 79 /min Chalo BLUM [facility] 03-31-2022 13:11-0500 Systolic blood pressure 125 mm[Hg] Chalo COOK [facility] 03-23-2022 17:30-0400 Body height 160.02 cm Balbina Napoles Other [employer] Other 03-23-2022 17:30-0400 Body mass index (BMI) [Ratio] 29.76 kg/m2 Balbina Napoles Other [employer] Other 03-23-2022 17:30-0400 Body temperature 98.1 [degF] Balbina Napoles Other [employer] Other 03-23-2022 17:30-0400 Body weight 76.2 kg Balbina Napoles Other [employer] Other 03-23-2022 17:30-0400 Diastolic blood pressure 88 mm[Hg] Balbina Napoles Other [employer] Other 03-23-2022 17:30-0400 Respiratory rate 18 /min Balbina Napoles Other [employer] Other 03-23-2022 17:30-0400 SaO2% (BldA) [Mass fraction] 98 % Balbina Napoles Other [employer] Other 03-23-2022 17:30-0400 Systolic blood pressure 127 mm[Hg] Balbina Napoles Other [employer] Other 02-02-2022 17:30-0400 Body height 160.02 cm Balbina Napoles Other [employer] Other 02-02-2022 17:30-0400 Body mass index (BMI) [Ratio] 32.06 kg/m2 Balbina Napoles Other [employer] Other 02-02-2022 17:30-0400 Body temperature 98.6 [degF] Balbina Napoles Other [employer] Other 02-02-2022 17:30-0400 Body weight 82.1 kg Balbina Napoles Other [employer] Other 02-02-2022 17:30-0400 Diastolic blood pressure 96 mm[Hg] Balbina Napoles Other [employer] Other 02-02-2022 17:30-0400 Respiratory rate 17 /min Balbina Napoles Other [employer] Other 02-02-2022 17:30-0400 SaO2% (BldA) [Mass fraction] 98 % Balbina Napoles Other [employer] Other 02-02-2022 17:30-0400 Systolic blood pressure 152 mm[Hg] Balbina Napoles Other [employer] Other Encounters Encounter Date Encounter Type Care [...] Start: 04-26-2023 End: 04-26-2023 ambulatory SAMY ODONNELL Facility:[facility] Start: 04-26-2023 End: 04-26-2023 Subsequent hospital visit by physician Us Tam A21 5 Work Phone: Radiology Comment on above: Nephrolithiasis [N20 .0] Start: 10-21-2022 End: 10-22-2022 ambulatory SAMY ODONNELL Facility:[facility] Start: 10-21-2022 End: 10-21-2022 Patient encounter procedure Samy Odonnell MD Work Phone: Urology Comment on above: Nephrolithiasis (Evette raúl Dx); Hyperoxaluria; Hypernatriuria; Hypocitraturia; Low urine output Start: 10-20-2022 Orders Only Samy Odonnell MD Work Phone: Urology Start: 10-12-2022 End: 10-12-2022 ambulatory SAMY ODONNELL Facility:[facility] Start: 09-28-2022 End: 09-29-2022 ambulatory Marley [...] Start: 09-21-2022 End: 09-21-2022 ambulatory MARLEY O'LARISA Facility:[facility] Start: 09-18-2022 Orders Only Samy Odonnell MD Work Phone: Urology Comment on above: Nephrolithiasis (Evette raúl Dx); Abnormal urinalysis Start: 09-16-2022 End: 09-17-2022 ambulatory SAMY ODONNELL Facility:[facility] Start: 09-16-2022 End: 09-16-2022 Patient encounter procedure Samy Odonnell MD Work Phone: Urology Comment on above: Nephrolithiasis (Evette raúl Dx) Start: 09-14-2022 Orders Only Samy Odonnell MD Work Phone: Urology Start: 09-07-2022 End: 09-08-2022 ambulatory Marley Brown PA-C Work Phone: Urology Start: 09-07-2022 Encounter for other preprocedural examination MARLEY MERCADOUE [facility] Start: 09-07-2022 End: 09-07-2022 Patient encounter [...] West RN U rology 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 3 Work Phone: [facility] Comment on above: Hydronephrosis with urinary obstruction due to ureteral calculus [N13.2] Start: 07-16-2022 Orders Only Samy Odonnell MD Work Phone: Urology Start: 07-14-2022 End: 07-15-2022 Orders Only Samy Odonnell MD Work Phone: Urology Comment on above: Abnormal urinalysis (Primary Dx) Nephrolithiasis (Evette rúal Dx); Hydronephrosis with urinary obstruction due to ureteral calculus; Left flank pain; Left renal atrophy Start: 07-07-2022 End: 07-08-2022 ambulatory BALBINA NAPOLES Facility:[facility] Start: 07-07-2022 End: 07-07-2022 Patient encounter procedure Chalo BLUM [facility] Start: 07-06-2022 End: 07-06-2022 ambulatory Chalo Blum Facility:[facility] Start: 07-06-2022 End: 07-06-2022 ambulatory SENIOR BUSINESS CONSULTANT-C Balbina Napoles Work Phone: [facility] Work Phone: Start: 07-06-2022 End: 07-06-2022 Patient encounter procedure SENIOR BUSINESS CONSULTANT-C Balbina Napoles Work Phone: [facility] Work Phone: Start: 06-18-2022 End: 06-18-2022 ambulatory Chalo BLUM Facility:[facility] Start: 06-18-2022 End: 06-18-2022 Admission to same day surgery center Chalo BLUM [facility] Start: 06-11-2022 End: 06-12-2022 ambulatory Chalo BLUM Facility:[facility] Start: 06-11-2022 End: 06-11-2022 Patient encounter procedure Chalo BLUM [facility] Start: 05-07-2022 End: 05-07-2022 ambulatory Irina Mao Other [employer] Other Start: 05-07-2022 Telephone encounter Irina Cavanaugh [facility] [employer] Start: 05-05-2022 Office consultation new/estab patient 60 min Balbina Napoles Work Phone: [facility] DO Work Phone: Start: 04-17-2022 End: 04-18-2022 ambulatory Chalo BLUM Facility:[facility] Start: 04-17-2022 End: 04-17-2022 Patient encounter procedure Chalo BLUM [facility] Start: 04-01-2022 ambulatory Chalo BLUM Facility : [facility] Start: 03-31-2022 End: 04-01-2022 ambulatory Chalo BLUM Facility:[facility] Start: 03-31-2022 End: 05-01-2022 Pre-admission assessment Chalo BLUM [facility] Start: 03-31-2022 End: 03-31-2022 Patient encounter procedure Chalo BLUM [facility] Start: 03-31-2022 End: 04-01-[address] CHALO BLUM Facility:[facility] Start: 03-24-2022 End: 03-25-2022 ambulatory BALBINA NAPOLES Facility:[facility] Start: 03-23-2022 End: 03-23-2022 ambulatory Balbina Napoles Other [employer] Other Start: 03-23-2022 Office outpatient vi sit 25 minutes Balbina Napoles [facility] Start: 03-21-2022 End: 03-22-[address] CHALO BLUM Facility:[facility] Start: 03-20-2022 ambulatory Chalo BLUM Facility:[facility] Start: 03-19-2022 End: 03-20-2022 ambulatory BALBINA ANPOLES Facility:[facility] Start: 02-16-2022 End: 02-17-[address] BRADEN LANGSTON Facility:[facility] Start: 02-03-2022 End: 02-04-2022 ambulatory BALBINA NAPOLES Facility:[facility] Start: 02-02-2022 Office outpatient vi sit 15 minutes Balbina Napoles [facility] [place] Start: 02-02-2022 End: 02-02-2022 ambulatory BALBINA NAPOLES [employer] Other Start: 12-24-2021 End: 12-24-2021 ambulatory Balbina Napoles Other [employer] Other Start: 12-24-2021 Telephone encounter Balbina mejia [facility] [place] Start: 07-24-2020 End: 07-25-2020 Patient encounter procedure JANICEROD MARTINEZ [facility] Start: 07-24-2020 End: 07-24-2020 Subsequent hospital visit by physician JOSEPH DUQUE DOCTOR Start: 07-17-2020 End: 07-18-2020 Patient encounter procedure JANICEGhada MARTINEZ [facility] Start: 07-17-2020 End: 07-17-2020 Subsequent hospital visit by physician JOSEPH DUQUE DOCTOR Start: 06-29-2020 End: 06-30-2020 Patient [facility] Start: 06-13-2020 End: 06-14-2020 Patient encounter procedure [facility]ada [facility] Start: 06-13-2020 End: 06-13-2020 Subsequent hospital visit by physician JOSEPH DUQUE DOCTOR Start: 05-30-2020 End: 05-31-2020 Patient encounter procedure [facility]Ghada [facility] Start: 05-30-2020 End: 05-30-2020 Subsequent hospital visit by physician JOSEPH MARTINEZ Start: 05-22-2020 End: 05-23-2020 Patient encounter procedure MARCELINO Amaya [facility] Start: 05-22-2020 End: 05-22-2020 Subsequent hospital visit by physician JOSEPH DUQUE DOCTOR Start: 05-09-2020 End: 05-10-2020 Patient encounter procedure [facility]OD [facility]INE[facility] Start: 05-09-2020 End: 05-09-2020 Subsequent hospital visit by physician JOSEPH DUQUE DOCTOR Start: 05-02-2020 End: 05-03-2020 Patient encounter procedure [facility]INO [facility] Start: 05-02-2020 End: 05-02-2020 Subsequent hospital visit by physician JOSEPH MARTINEZ Start: 04-25-2020 End: 04-26-2020 Patient encounter procedure [facility]OD [facility]INE[facility] Start: 04-25-2020 End: 04-25-2020 Subsequent hospital visit by physician JOSEPH MARTINEZ Start: 04-10-2020 End: 04-11-2020 Patient encounter procedure [facility] Start: 04-10-2020 End: 04-10-2020 Subsequent hospital visit by physician JOSEPH MARTINEZ Start: 03-12-2020 End: 03-13-2020 Patient encounter procedure [facility]OD [facility] Start: 03-12-2020 End: 03-12-2020 Subsequent hospital visit by physician JOSEPH DUQUE DOCTOR Start: 03-01-2020 End: 03-02-2020 Patient encounter procedure [facility]OD [facility] Start: 03-01-2020 End: 03-01-2020 Subsequent hospital visit by physician JOSEPH DUQUE DOCTOR Patient encounter status Wilder Napoles Work Phone: -[place] [address] DO Work Phone: Procedures Date Procedure Procedure [...] Speci men Type: BLOOD SPECIMEN Ordering Facility: [facility] Address: [address] [place] [address] Performed By: #### T [id number] #### [facility] CLIA [id number] [place] Start: 07-06-2022 Diagnostic radiograp hy of abdomen SENIOR BUSINESS CONSULTANT-C Balbina Napoles Work Phone: Start: 06-18-2022 Extracorporeal [...] Author Start: 09-28-2025 DIABETES SCREEN DIABETES SCREEN [facility] Start: 09-28-2025 Diabetes Screening Diabetes Screenin g [facility] Start: 07-14-2025 DIABETES SCREEN DIABETES SCREEN [facility] Start: 07-15-2023 End: 07-15-2023 Patient encounter procedure 07/15/2023 10:30 AM EST Office Visit [facility] [address] [place] [address] Justin Marley MD [address] [place] [address] [facility] S Start: 07-14-2023 End: 09-13-2023 Calcium.ionized [Moles/volume] in Blood CALCIUM IONIZED BLOOD Lab Routine Hydronephrosis with urinary obstruction due to ureteral calculus Nephrolithiasis Left flank pain Left renal atrophy Expected: 07/14/2023, Expires: 09/13/2023 [facility] Work Phone: Comment on above: Expected: 07/14/2023 , Expires: 09/13/2023 Start: 01-22-2023 Covid-19 Vaccine () Covid-19 Vaccine () [facility] Start: 01-22-2023 Influenza vaccination C [facility] Start: 10-04-2022 Urine microalbumin profile DTaP,Tdap,Td Vaccine (2 - Td or Tdap) [facility] Start: 09-18-2022 End: 11-18-2022 Bacteria identified in Urine by Culture URINE CULTURE Microbiology Routine Nephrolithiasis Abnormal urinalysis Expected: 09/18/2022, Expires: 11/18/2022 [facility] Work Phone: Comment on above: Expected: 09/18/2022 , Expires: 11/18/2022 Start: 09-18-2022 End: 11-18-2022 Basic metabolic 2000 panel - Serum or Plasma BASIC METABOLIC PNL Lab Routine Nephrolithiasis Abnormal urinalysis Expected: 09/18/2022 (Approximate), Expires: 11/18/2022 [facility] Work Phone: Comment on above: Expected: 09/18/2022 (Approximate), Expires: 11/18/2022 Start: 09-18-2022 End: 11-18-2022 CBC W Auto Differential panel - Blood CBC + DIFF Lab Routine Nephrolithiasis Abnormal urinalysis Expected: 09/18/2022 (Approximate), Expires: 11/18/2022 [facility] Work Phone: Comment on above: Expected: 09/18/2022 (Approximate), Expires: 11/18/2022 Start: 08-18-2022 End: 10-18-2022 Bacteria identified in Urine by Culture URINE CULTURE Microbiology Routine Nephrolithiasis Expected: 08/18/2022, Expires: 10/18/2022 [facility] Work Phone: Comment on above: Expected: 08/18/2022 , Expires: 10/18/2022 Start: 08-17-2022 End: 10-17-2022 Urinalysis complete panel - Urine URINALYSIS, WITH MICROSCOPIC Lab Routine Nephrolithiasis Expected: 08/17/2022, Expires: 10/17/2022 [facility] Work Phone: Comment on above: Expected: 08/17/2022 , Expires: 10/17/2022 Start: 05-24-2022 DEPRESSION ASSESSMENT DEPRESSION ASS ESSMENT [facility] Start: 01-22-2022 Influenza vaccination INFLUENZA (#1) [facility] Start: 11-18-2021 COVID-19 VACCINE (5 - Booster for Moderna series) COVID-19 VACCINE (5 - Booster for Moderna series) [facility] Start: 01-23-2020 Influenza vaccination Flu vaccine (# 1) [place], [place] Start: 06-05-2015 Screening for malign ant neoplasm of breast Mammogram [facility] Start: 2014 Screening for malign ant neoplasm of breast Breast cancer screen [place], [place] Start: 2014 Screening for malign ant neoplasm of colon Colon cancer screen colonoscopy [place], [place] Start: 2014 Shingles Vaccine (1 of 2) Shingles Vaccine (1 of 2) [place], [place] Start: 2014 SHINGRIX VACCINE (1 of 2) SHINGRIX VACCINE (1 of 2) [facility] Start: 2009 COLOGUARD (FIT-DNA) COLOGUARD (FIT-D NA) [facility] Start: 2009 Colonoscopy COLONOSCOPY [facility] Start: 2009 COLORECTAL CANCER SCREENING COLORECTAL CANCER SCREENING [facility] Start: [address] COLONOGRAPHY [facility] Start: 2009 DIABETES SCREEN DIABETES SCREEN [facility] Start: 2009 FECAL OCCULT BLOOD FECAL OCCULT BLOO D [facility] Start: 2009 Lipid 1996 panel - Serum or Plasma Lipid Screening [facility] Start: 2009 LIPID SCREEN LIPID SCREEN [facility] Start: 2009 SIGMOIDOSCOPY SIGMOIDOSCOPY [facility] Start: 2004 Lipid panel Lipid screen [place], [place] Start: 2004 Mammography [facility] Start: 1994 HPV TESTING HPV TESTING [facility] Start: 1985 PAP TESTING PAP TESTING [facility] Start: 1985 Screening for malign ant neoplasm of cervix Cervical cancer screen [place], [place] Start: 11-16-1983 DTaP/Tdap/Td vaccine (1 - Tdap) DTaP/Tdap/Td vaccine (1 - Tdap) [place], [place] Start: 11-16-1983 Urine microalbumin profile DTAP,TDAP,TD (1 - Tdap) [facility] Start: 1982 HEPATITIS C SCREENING HEPATITIS C SC REENING [facility] Start: 1982 HIV SCREENING HIV SCREENING [facility] Start: 11-16-1979 [facility] [place] [place] Start: 1964 HEPATITIS B (1 of 3 - 3-dose series) HEPATITIS B (1 of 3 - 3-dose series) [facility] Start: 1964 Hepatitis B Vaccine (1 of 3 - 3-dose series) Hepatitis B Vaccine (1 of 3 - 3-dose series) [facility] Start: 1964 Hepatitis C screening Hepatitis C sc reen [place], [place] Start: 1964 Screening for malign ant neoplasm of colon [facility] Bacteria identified in Urine by Culture URINE CULTURE Microbiology Routine Abnormal urinalysis 07/14/2022 10:05 AM EST [facility] Work Phone: End: 06-13-2020 COVID-19 COVID-19 Lab Routine Once for 1 Occurrences starting 06/13/2020 until 06/13/2020 [place] Comment on above: Once for 1 Occurrenc es starting 06/13/2020 until 06/13/2020 COVID-19 [place], [place] End: 07-17-2020 COVID-19 COVID-19 Lab Routine Once for 1 Occurrences starting 07/17/2020 until 07/17/2020 [facility] [employer] Work Phone: Comment on above: Once for 1 Occurrenc es starting 07/17/2020 until 07/17/2020 End: 07-24-2020 COVID-19 COVID-19 Lab Routine Once for 1 Occurrences starting 07/24/2020 until 07/24/2020 [facility] [employer] Work Phone: Comment on above: Once for 1 Occurrenc es starting 07/24/2020 until 07/24/2020 End: 04-10-2020 Covid-19 Ambulatory Covid-19 Ambulatory Lab Routine Once for 1 Occurrences starting 04/10/2020 until 04/10/2020 [place] Comment on above: Once for 1 Occurrenc es starting 04/10/2020 until 04/10/2020 Covid-19 Ambulatory [place], [place] End: 04-25-2020 Covid-19 Ambulatory Covid-19 Ambulatory Lab Routine Once for 1 Occurrences starting 04/25/2020 until 04/25/2020 [facility], [place] Comment on above: Once for 1 Occurrenc es starting 04/25/2020 until 04/25/2020 End: 05-02-2020 Covid-19 Ambulatory Covid-19 Ambulatory Lab Routine Once for 1 Occurrences starting 05/02/2020 until 05/02/2020 [facility], [place] Comment on above: Once for 1 Occurrenc es starting 05/02/2020 until 05/02/2020 End: 05-09-2020 Covid-19 Ambulatory Covid-19 Ambulatory Lab Routine Once for 1 Occurrences starting 05/09/2020 until 05/09/2020 [facility], [place] Comment on above: Once for 1 Occurrenc es starting 05/09/2020 until 05/09/2020 End: 05-22-2020 Covid-19 Ambulatory Covid-19 Ambulatory Lab Routine Once for 1 Occurrences starting 05/22/2020 until 05/22/2020 [facility], [place] Comment on above: Once for 1 Occurrenc es starting 05/22/2020 until 05/22/2020 End: 03-01-2020 Covid-19 Ambulatory Covid-19 Ambulatory Lab Routine Once for 1 Occurrences starting 03/01/2020 until 03/01/2020 [facility], [place] Comment on above: Once for 1 Occurrenc es starting 03/01/2020 until 03/01/2020 End: 05-30-2020 Covid-19 Ambulatory Covid-19 Ambulatory Lab Routine Once for 1 Occurrences starting 05/30/2020 until 05/30/2020 [facility], [place] Comment on above: Once for 1 Occurrenc es starting 05/30/2020 until 05/30/2020 End: 08-13-2023 Kidney img morphology vascular flow 1 w/rx NM RENAL FLOW/FXN W PHARM Radiology Routine Hydronephrosis with urinary obstruction due to ureteral calculus 1 Occurrences starting 07/14/2022 until 08/13/2023 [facility] Work Phone: Comment on above: 1 Occurrences starti ng 07/14/2022 until 08/13/2023 End: 11-20-2023 Radiologic exam abdomen 3+ views XR ABDOMEN 3V KUB W/OBLIQUES Radiology Routine Nephrolithiasis 1 Occurrences starting 10/21/2022 until 11/20/2023 [facility] Work Phone: Comment on above: 1 Occurrences starti ng 10/21/2022 until 11/20/2023 REFER FOR ADMIT INTERVIEW REFER FOR ADMIT INTERVIEW Procedures Routine Nephrolithiasis Ordered: 08/18/2022 [facility] Work Phone: Comment on above: Ordered: 08/18/2022 URINALYSIS, REFLEX MICROSCOPIC URINALYSIS, REFLEX MICROSCOPIC Lab Routine Screening for genitourinary condition Ordered: 09/28/2022 [facility] Work Phone: Comment on above: Ordered: 09/28/2022 End: 11-20-2023 US KIDNEY/BLADDER US KIDNEY/BLADDER Radiology Routine Nephrolithiasis 1 Occurrences starting 10/21/2022 until 11/20/2023 [facility] Work Phone: Comment on above: 1 Occurrences starti ng 10/21/2022 until 11/20/2023 [facility] Immunizations Immunization Date Immunization Notes Care Provider [facility] 09-23-2021 SARS-CoV-2 (COVID-19 ) mRNA-1273 vaccine Chalo Mobbles [facility] 04-23-2021 SARS-CoV-2 (COVID-19 ) mRNA-1273 vaccine ChaloFliplingo [facility] 06-27-2020 SARS-CoV-2 (COVID-19 ) mRNA-1273 vaccine ChaloFliplingo [facility] 05-30-2020 SARS-CoV-2 (COVID-19 ) mRNA-1273 vaccine ChaloFliplingo [facility] 03-01-2019 influenza virus vaccine, unspecified formulation ChaloFliplingo [facility] 03-01-2019 Seasonal, quadrivale nt, recombinant, injectable influenza vaccine, preservative free Justin Marley MD Work Phone: [facility] 10-04-2012 tetanus toxoid, redu porsha diphtheria toxoid, and acellular pertussis vaccine, adsorbed Chalo BLUM [facility] Payers Date Payer Category Payer Self-pay [id number] 2020 Unknown 1965 Unknown [id number] 2.16.8 40.1.042963.3.579.2.175 1964 Unknown [id number] 2.16.8 40.1.321501.3.579.2.175 1964 Unknown [id number] 2.16.8 40.1.769861.3.579.2.175 1964 Unknown [id number] 2.16.8 40.1.090417.3.579.2.175 1964 Unknown [id number] 2.16.8 40.1.742612.3.579.2.175 1964 Unknown [id number] 2.16.8 40.1.626315.3.579.2.175 1964 Unknown [id number] 2.16.8 40.1.280118.3.579.2.175 1964 Unknown [id number] 2.16.8 40.1.436975.3.579.2.175 1964 Unknown [id number] 2.16.8 40.1.067730.3.579.2.175 1964 Unknown [id number] 2.16.8 40.1.133738.3.579.2.175 1964 Unknown [id number] 2.16.8 40.1.994809.3.579.2.175 1964 Unknown [id number] 2.16.8 40.1.173739.3.579.2.175 1964 Unknown [id number] 2.16.84 0.1.406579.3.579.2.593 1964 Unknown [id number] 2.16.84 0.1.918693.3.579.2.593 1964 Unknown [id number] 2.16.84 0.1.086365.3.579.2.593 1964 Unknown [id number] 2.16.84 0.1.814245.3.579.2.593 1964 Unknown [id number] 2.16.84 0.1.908868.3.579.2.593 1964 Unknown [id number] 2.16.84 0.1.712136.3.579.2.593 1964 Unknown [id number] 2.16.84 0.1.691659.3.579.2.593 1964 Unknown [id number] 2.16.8 40.1.117321.3.579.2.727 1964 Unknown [id number] 2.16.8 40.1.579306.3.579.2.727 1964 Unknown [id number] 2.16.8 40.1.888136.3.579.2.727 1964 Unknown [id number] 2.16.8 40.1.115652.3.579.2.727 1964 Unknown [id number] 2.16.8 40.1.695871.3.579.2.727 1964 Unknown [id number] 2.16.8 40.1.756481.3.579.2.727 1964 Unknown [id number] 2.16.8 40.1.995767.3.579.2.727 1964 Unknown [id number] 2.16.8 40.1.261125.3.579.2.727 1964 Unknown [id number] 2.16.8 40.1.827514.3.579.2.727 1964 Unknown [id number] 2.16.84 0.1.430004.3.579.2.1259 1964 Unknown [id number] 2.16.84 0.1.752628.3.579.2.1259 1964 Unknown [id number] 2.16.84 0.1.324972.3.579.2.1259 1959 Unknown [id number] 1. 2.840.656560.1.13.239.2.7.3.780374.315 Unknown [id number] 2.16.8 40.1.740960.3.579.2.531 Social History Date Type Detail Facility [facility] [place] Start: 1965 Sex Assigned At Not on file [place], [place] Start: 09-28-2022 End: 06-21-2023 Sex Assigned At [facility] Start: 03-31-2022 End: 06-03-2023 Tobacco smoking status Never smoked tobacco (finding) [facility] Tobacco smoking status Never [facility] Start: 09-28-2022 End: 06-21-2023 No alcohol use No alcohol use [place] [address] DO Work Phone: Start: 1965 Sex Assigned At Female [facility] History of tobacco use Passive smoker [facility] Start: 07-14-2022 End: 06-03-2023 Tobacco use and exposure Smokeless tobacco non-user [facility] Start: 06-21-2023 Alcohol intake Ex-drinker (finding) [facility] Start: 06-07-2023 Alcohol Comment Caffeine intake ; chocolatre [facility] Start: 06-03-2023 Gender identity Identifies as female gender (finding) [facility] Start: 06-03-2023 Sexual orientation Heterosexual (finding) [facility] Medical Equipment Procedure Code Equipment Code Equipment Origin al Text Equipment Identifier Dates Stent Inlay Opti ma 7fr Taper [place] Green Polymer Phreecoat 24cm Ureteral - [id number] Start: 09-07-2022 Stent Inlay Opti ma 6fr Taper [place] Green Polymer Phreecoat 24cm Ureteral - [id number] Start: 10-12-2022 Functional Status Date Assessment Result Facility 07-07-2022 Functional Status N/A [facility] 06-11-2022 Functional Status No [facility] 04-17-2022 Functional Status No [facility] 03-31-2022 Functional Status N/A [facility] Clinical Notes 02-02-2022 to 06-21-2023 Justin Marley [...] 0.55 - 1.02 mg/dL Final [facility] EGFR-AF [place] 06/21/2023 40 (L) >=60 Final [facility] EGFR-NON AF [place] 06/21/2023 33 (L) >=60 Final BUN CREATININE [...] 0.55 - 1.02 mg/dL Final [facility] EGFR-AF [place] 06/16/2023 39 (L) >=60 Final [facility] EGFR-NON AF [place] 06/16/2023 32 (L) >=60 Final BUN CREATININE [...] (HH) <=900.0 pg/mL Final RESULTS CALLED TO [facility] WBC 06/16/2023 6.4 4.0 - 11.0 [...] this office visit and go out to [facility] to get those labs done. Bilateral edema [...] chelated iron orally. documented in this encounter [facility] 04-26-2023 Note HNO ID: [id number] Author: Bony Elizabeth RT(R) Service: Radiology Author [...] RT Rafaela(R) April 26, 2023 3:53 PM [facility] 04-26-2023 Note HNO ID: [id number] Author: Hanane Lau RT(Malcom) Service: Radiology Author [...] RDMS RVT April 26, 2023 2:41 PM [facility] 04-26-2023 History of Present illness Narrative Radiology [...] 2023 3:53 PM documented in this encounter [facility] 04-26-2023 History of Present illness Narrative Radiology [...] 2023 2:41 PM documented in this encounter [facility] 10-21-2022 Note HNO ID: [id number] Author: Dana Renteria RN Service: ? Author [...] procedures): No specimen collected. Dana Renteria RN [facility] 10-21-2022 Note HNO ID: [id number] Author: Samy Odonnell MD Service: ? Author [...] Odonnell MD Director, Surgical Stone Disease [facility] [place], [facility] Pager [phone] 10/21/2022 [facility] 10-21-2022 History of Present illness Narrative UNIVERSAL [...] Odonnell MD Director, Surgical Stone Disease [facility] [place] Pager [phone] 10/21/2022 documented in this encounter [facility] 10-21-2022 Nurse Note Actual procedure/procedure scheduled: Yes Performing provider/scheduled provider: Yes Patient was roomed in: Q9- 05 Wheat Washer offered:Patient declines Patient arrived in the room [...] Education Session: None Instruction Provided To: Patient Kiln Hand Present: not applicable Discipline: Nursing Learning Topic: SURVIVAL SKILLS: Complication Prevention Symptom Management Patient Evaluation: Verbalizes understanding: Yes Supplemental Material Given: Written Material Instructed By Dana Renteria RN In Department Urology . documented in this encounter [facility] 10-12-2022 Note HNO ID: [id number] Author: ION Hopkins Service: ? Author Type: [...] October 12, 2022 TIME: 8:17 AM CSN: [id number] [facility] 09-28-2022 Note HNO ID: [id number] Author: Marley Brown PA-C Service: ? Author Type: Physician Extract Wringer Type: Progress Notes Filed: 09/28/2022 2:56 PM Note Text: [facility] PRE-OP NOTE Elizabeth [...] Signed: Yes. Pre-op HANDP Done by Physician Extract Wringer: Yes. PATIENT INSTRUCTIONS FOR SURGERY 1.) DO [...] for surgery. Marley Gutierrez PA-C Electronically signed [facility] 09-28-2022 Note Patient Outreach (UR OLMN) ELIZABETH IRVIN ([id number]) 1965 F Date Time Provider Department 09/28/22 MARLEY CHOE During your visit today, we recorded the following information about you: Allergies As of Date: 09/28/2022 Noted Allergy Reaction PREDNISONE 04/24/2022 4 - Hives VALACYCLOVIR 04/24/2022 4 - Hives Date Reviewed: 09/28/2022 Reviewed by: Marley Brown PA-C - Fully Assessed Visit Diagnosis:Screening for genitourinary condition [Z13.89] Order(s):URINALYSIS, REFLEX MICROSCOPIC [[id number]] Order #: [id number]. #:[id number] Prescriptions as of 10/01/2022 - cephALEXin (KEFLEX) [...] Of Date: 09/28/2022 (None) Encounter Status:Closed by PickliveMELANI on 10/01/22 [facility] 09-28-2022 History and physical note UROLOGY [...] + HTN. No history of angina, CHF, [place], cardiac surgery of stents. Respiratory: Negative for [...] problems. Neurologic: No history of TIA's, stroke, ENVIRONMENTAL MARKETING REPRESENTATIVE tumor, impaired sensorium, hemiplegia or paraplegia No [...] (no units) Date Value 09/07/2022 Negative Specific [place], Ur (no units) Date Value 09/07/2022 1.014 [...] PM PAGER/CONTACT #: documented in this encounter [facility] 09-28-2022 History of Present illness Narrative [facility] PRE-OP NOTE Elizabeth [...] Signed: Yes. Pre-op H&P Done by Physician Extract Wringer: Yes. PATIENT INSTRUCTIONS FOR SURGERY 1.) DO [...] Marley Gutierrez PA-C documented in this encounter [facility] 09-16-2022 Note HNO ID: [id number] Author: Dede Story RN Service: ? Author [...] Visit completed when applicable. Dede Story RN [facility] 09-16-2022 Note HNO ID: [id number] Author: Samy Odonnell MD Service: ? Author [...] Odonnell MD Director, Surgical Stone Disease [facility] [place], [facility] Pager [phone] 09/16/2022 [facility] 09-16-2022 History of Present illness Narrative UNIVERSAL [...] Odonnell MD Director, Surgical Stone Disease [facility] [place] Pager [phone] 09/16/2022 documented in this encounter [facility] 09-16-2022 Nurse Note Actual procedure/procedure scheduled: Yes Performing provider/scheduled provider: Yes Patient was roomed in: Q9- 09 Wheat Washer offered: Patient declines Patient arrived in the [...] Education Session: None Instruction Provided To: Patient Kiln Hand Present: not applicable Discipline: Nursing Learning Topic: SURVIVAL SKILLS: Complication Prevention Pain Management Symptom Management Patient Evaluation: Verbalizes understanding: Yes Supplemental Material Given: None Instructed By Dede Story RN In Department Urology . documented in this encounter [facility] 09-07-2022 Note HNO ID: [id number] Author: Fernanda Joseph APRN.NUCLEAR POWER REACTOR OPERATOR Service: ? Author Type: Nurse Supervisor Sewing Room Type: Anesthesia Procedure Notes Filed: 09/07/2022 1:55 PM Note Text: ANESTHESIOLOGY PROCEDURE NOTE Airway General Information Procedure Start Time/Medication Administration: 09/07/2022 1:38 PM Patient location during procedure: OR Timeout Performed Pre-procedure: timeout performed Consent Obtained: Yes Patient identity confirmed: arm band and patient Staffing NUCLEAR POWER REACTOR OPERATOR: Fernanda Joseph APRN.NUCLEAR POWER REACTOR OPERATOR Indications and Patient Condition Indications for airway management: anesthesia Preoxygenated: yes anesthesia circuit Patient position: sniffing Method: asleep Cricoid Pressure: No Manual In-Line Stabilization: No Difficult Mask: No Final Airway Details Final airway type: endotracheal airway Final Endotracheal Airway: ETT Cuffed: yes Successful intubation technique: video laryngoscopy Devices used: GridCraft Endotracheal tube insertion site: oral Blade size: #4 ETT size (mm): 7.0 Measured from: lips Measurement (cm): 20 Placement verified by: capnometry Cormack-Lehane Classification: grade I - full view of glottis Number of attempts at approach: 1 Failed airway: no Unrecognized esophageal intubation: no Airway not difficult SIGNATURE: Fernanda Joseph APRN.CRNA PATIENT NAME: Elizabeth Irvin DATE: September 07, 2022 TIME: 1:54 PM CSN: [id number] [facility] 09-07-2022 Note Patient Outreach (UR OLMN) ELIZABETH IRVIN ([id number]) 1965 F Date Time Provider Department 09/07/22 MARLEY CHOE During your visit today, we recorded the following information about you: Allergies As of Date: 09/07/2022 Noted Allergy Reaction PREDNISONE 04/24/2022 4 - Hives VALACYCLOVIR 04/24/2022 4 - Hives Date Reviewed: 09/07/2022 Reviewed by: Zelalem Pihcardo RN - Fully Assessed Visit Diagnosis:Screening for genitourinary condition [Z13.89] Order(s):URINALYSIS, REFLEX MICROSCOPIC [[id number]] Order #: [id number]. #:[id number] Prescriptions as of 09/10/2022 - tamsulosin (FLOMAX) [...] Of Date: 09/07/2022 (None) Encounter Status:Closed by Picklive, PRODUSER on 09/10/22 [facility] 09-07-2022 Note HNO ID: [id number] Author: Marley Brown PA-C Service: ? Author Type: Physician Extract Wringer Type: Progress Notes Filed: 09/07/2022 10:06 AM [...] Urine 08/18/2022 Negative Trace, Negative Final Specific [place], Ur 08/18/2022 1.016 1.005 - 1.030 Final [...] low oxalate di (more content not included)... [facility] 09-07-2022 History of Present illness Narrative Chief [...] Urine 08/18/2022 Negative Trace, Negative Final Specific [place], Ur 08/18/2022 1.016 1.005 - 1.030 Final [...] All fluids count but water is best. Elliott intake - Recommend increasing dietary citrate intake. [...] which included preparing to see the patient, [id number] patient care, completing clinical documentation, obtaining and/or reviewing separately obtained history, performing a medically appropriate examination, counseling and educating the patient/family/caregiver, ordering medications, tests, or procedures, and communicating results to the patient/family/caregiver. Marley Gutierrez PA-C documented in this encounter [facility] 09-07-2022 History and physical note UROLOGY SURGICAL [...] + HTN. No history of angina, CHF, [place], cardiac surgery of stents. Respiratory: Negative for [...] problems. Neurologic: No history of TIA's, stroke, ENVIRONMENTAL MARKETING REPRESENTATIVE tumor, impaired sensorium, hemiplegia or paraplegia No [...] (no units) Date Value 08/18/2022 Negative Specific [place], Ur (no units) Date Value 08/18/2022 1.016 [...] 07, 2022 TIME: 8:59 AM PAGER/CONTACT #: [facility] PRE-OP NOTE Elizabeth Irvin is a 56 year old female. Pre-op Date: September 07, 2022 Date of Procedure: 09/07/22 Does the patient have an active COVID-19 test in [facility]? N/a Procedure/Surgery: L URS and stent [...] Signed: Yes. Pre-op H&P Done by Physician Extract Wringer: Yes. PATIENT INSTRUCTIONS FOR SURGERY 1.) DO [...] Marley Gutierrez PA-C documented in this encounter [facility] 08-19-2022 Miscellaneous Notes Called and spoke with [...] advise -thank you. documented in this encounter [facility] 08-13-2022 Miscellaneous Notes Called patient to discuss [...] 2022 9:55 AM documented in this encounter [facility] 07-30-2022 Note HNO ID: [id number] Author: Donovan Guzman ProHatch Service: Nuclear Medicine Author Type: Special Technical Operations Officer Type: Progress Notes Filed: 07/30/2022 2:28 PM [...] safety can be found using this link: [email or web address] SIGNATURE: Donovan Guzman ProHatch PATIENT NAME: Elizabeth Irvin DATE: July 30, 2022 TIME: 2:26 PM PAGER/CONTACT #: [facility] 07-30-2022 History of Present illness Narrative [...] safety can be found using this link: [email or web address] df SIGNATURE: Donovan Guzman [employer]atch PATIENT NAME: Elizabeth Irvin DATE: July 30, 2022 TIME: 2:26 PM PAGER/CONTACT #: documented in this encounter [facility] 07-30-2022 Nurse Note Patient here for a renal scan with lasix. Patient identified and allergies reviewed. Per order under scanned documents lasix 40 mg IV given at 1411. documented in this encounter [facility] 07-14-2022 Note Patient Outreach (UR OLMN) ELIZABETH IRVIN ([id number]) 1965 F Date Time Provider Department 07/14/22 SAMY ODONNELL During your visit today, we recorded the following information about you: Allergies As of Date: 07/14/2022 Noted Allergy Reaction PREDNISOLONE 07/14/2022 4 - Hives PREDNISONE 04/24/2022 4 - Hives VALACYCLOVIR 04/24/2022 4 - Hives Date Reviewed: 07/14/2022 Reviewed by: Gali Mcnally, ANNALISE - Fully Assessed Visit Diagnosis:Screening for genitourinary condition [Z13.89] Order(s):URINALYSIS, REFLEX MICROSCOPIC [REI5021] Order #: [id number]. #:[id number] Prescriptions as of 07/17/2022 - nitrofurantoin monohydrate [...] Of Date: 07/14/2022 (None) Encounter Status:Closed by [employer] on 07/17/22 [facility] 07-14-2022 Note HNO ID: [id number] Author: Samy Odonnell MD Service: ? Author [...] based on size, location, hounsfield units and uert-ms-flubn distance: 0% 3. Ureteroscopy - risks of [...] with more than 50% of the total neiu-zg-svei time of the visit devoted to patient counseling/coordination of care. Samy Odonnell MD Director, Surgical Stone Disease Formerly [facility] [place], [facility] Pager [phone] 07/14/2022 [facility] 07-14-2022 History of Present illness Narrative Images [...] based on size, location, hounsfield units and hlaa-hm-cxlrt distance: 0% 3. Ureteroscopy - risks of [...] with more than 50% of the total gnoi-gz-exux time of the visit devoted to patient counseling/coordination of care. Samy Odonnell MD Director, Surgical Stone Disease [facility] [place], [facility] Pager [phone] 07/14/2022 documented in this encounter [facility] 07-07-2022 Hospital Discharge instructions Patient Education 07/07/2022 [...] include: ?Spinach. ?Rhubarb. ?Beets. ?Potato chips and rwandan fries. ?Nuts. If you regularly take a diuretic medicine, make sure to eat at least 1 2 fruits or vegetables high in potassium each day. These include: ?Avocado. ?Banana. ?[place], prune, carrot, or tomato juice. ?Baked potato. [...] Casseroles. Pizza. Lasagna. Frozen meals. Potato chips. Samoan fries. Summary You can reduce your risk [...] 09/04/2011 Document Revised: 08/30/2019 Document Reviewed: 04/20/2017 [employer] Patient Education 2020 ROSTR. Follow Up Care 06/29/2022 15:30:12 With:KULWANT REED, Chalo Frazier, URL Address: [address] [place] [address] [place], [place] [id number]- When: Unknown [facility] 06-18-2022 Evaluation + Plan note Extrac bernardo from: Title:Post-anesthesia - General Author:Garfield Garrett DO Date:06/18/22 Plan Transfer/ Discharge: Condition stable. Extracted from: Title:Pre-anesthesia - Adult Author:Garfield Beauchamp Jr., DO Date:06/18/22 Plan [employer] Anesthesiologists (ASA) physical status classification: Class III. Anesthetic Preoperative Plan Anesthesia: General. . Anesthetic plan, risks, benefits, and alternatives discussed with the patient and/or family. Patient verbalized understanding. Adverse reactions, complications, and alternatives discujssed. Consent signed and on chart.. [facility]01-26-2023 Hospital Discharge instructions Patient Education [...] Follow these instructions at home: Medicines Take eycg-tji-xxtebbl and prescription medicines only as told by [...] 05/29/2008 Document Revised: 08/21/2019 Document Reviewed: 03/31/2017 [employer] Patient Education 2020 ROSTR. Follow Up Care 03/31/2022 13:46:23 With:Chalo BLUM Address: [address] [address]- Business (1) When:1 to 2 weeks Comments:Call for followup appointment with an abdominal X-ray prior to your visit (my office will need to send an order for the X-ray) [facility]01-13-2023 Note [id number]:127[facility] 04-15-2022 [id number]:127[facility]11-22-2022 [id number]:127 [facility]11-08-2022 Hospital Discharge instructions Patient Education 03/31/2022 13:07:20 Kidney Stones, Zupv-zo-Dckb Kidney Stones Kidney stones are rock-like masses [...] Follow these instructions at home: Medicines Take ombb-vpx-crucchj and prescription medicines only as told by [...] 10/26/2008 Document Revised: 09/26/2019 Document Reviewed: 09/26/2019 [employer] Patient Education 2019 ROSTR. Follow Up Care 03/26/2022 10:20:11 With:KULWANT REED, Chalo Frazier, URL Address: [facility] [facility] [place] [id number]- When: Unknown [facility] 10-31-2022 Evaluation note* Encounter Date Diagnosis Assessment [...] - E11.9) Continue current dose. Sent to [facility], RLS (restless legs syndrome) (ICD-10 - G25.81) Continue medication as discussed. Sent order to [facility] Feb, JEET (generalized anxiety disorder) (ICD-10 - F41.1) Continue medication as discussed. Sent order to [facility] Other 10-27-2022 NoteEXAMINATION: XR RETROGRADE PYELOGRAM HISTORY: [...] Electronically authenticated by: NATACHA WILD Date: 2022-03-19 16:44[facility]10-27-2022 NoteOPERATIVE NOTE OPERATION DATE: 03/19/2022 PREOPERATIVE [...] placed per urethra and a well lubricated 22-Samoan cystourethroscope with 30 degree lens was then [...] backloaded over the wire and a 4.8 Samoan 22-30 cm [employer] double J stent was passed into the left kidney. Minimal difficulty getting the stent past the stone over the wire. The wire was removed and there was good curl within the kidney and (more content not included)...[id number]* Encounter Date Diagnosis Assessment Notes [...] RLS (restless legs syndrome) (ICD-10 - G25.81) [employer] Other Evaluation + Plan note Future Appointments Appointment Date:04/17/2022 07:30:00 AM Scheduled Provider: Location:[facility] Surgical Services Appointment Type:Surgical PAT FT Appointment Date:04/30/2022 10:00:00 AM Scheduled Provider: Location:[facility] Surgical Services Appointment Type:Surgery FT [facility] [employer] Evaluation + Plan note Future Appointments Appointment Date:04/30/2022 12:45:00 PM Scheduled Provider: Location:[facility] Future Appointments Appointment Date:06/18/2022 11:30:00 AM Scheduled Provider: Location:[facility] Surgical Services Appointment Type:Surgery FT Diagnostic Tests Pending * Urine Culture [facility]11/22 [facility] Evaluation noteNo InformationNort [facility] Other evaluation noteNo assessment information available [facility] Work Phone: Evaluation note* Diagnosis Abnormal urinalysis- Primary Other nonspecific finding on examination of urine documented [facility] Diagnosis Nephrolithiasis- Primary Calculus of kidney Hydronephrosis with urinary obstruction due to ureteral calculus Left flank pain Abdominal pain, unspecified site Left renal atrophy Renal sclerosis, unspecified documented in this encounter [facility]* Diagnosis Hydronephrosis with urinary obstruction due to ureteral calculus documented in this encounter [facility]* Diagnosis Nephrolithiasis- Primary Calculus of kidney documented in this encounter [facility]* Diagnosis Nephrolithiasis- Primary Calculus of kidney [facility] Diagnosis Preop examination- Primary Preoperative examination, unspecified Nephrolithiasis Calculus of kidney Hypernatriuria Hyperosmolality and/or hypernatremia Hyperoxaluria Other specified disorders of carbohydrate transport and metabolism Hypocitraturia Other nonspecific finding on examination of urine Aciduria (HCC) Other nonspecific finding on examination of urine Urine volume deficient Oliguria and anuria Elevated parathyroid hormone Unspecified endocrine disorder [facility] Diagnosis Screening for genitourinary condition Screening for other and unspecified genitourinary condition [facility] Diagnosis Nephrolithiasis- Primary Calculus of kidney [facility] Diagnosis Nephrolithiasis- Primary Calculus of kidney Abnormal urinalysis Other nonspecific finding on examination of urine Nephrolithiasis Calculus of kidney [facility] Diagnosis Preop examination- Primary Preoperative examination, unspecified Nephrolithiasis Calculus of kidney Nephrolithiasis Calculus of kidney [facility] Diagnosis Screening for genitourinary condition Screening for other and unspecified genitourinary condition Nephrolithiasis Calculus of kidney documented in this encounter [facility] note* Diagnosis Nephrolithiasis- Primary Calculus of kidney Hyperoxaluria Other specified disorders of carbohydrate transport and metabolism Hypernatriuria Hyperosmolality and/or hypernatremia Hypocitraturia Other nonspecific finding on examination of urine Low urine output Oliguria and anuria documented in this encounter [facility] note* Diagnosis Nephrolithiasis Calculus of kidney documented in this encounter [facility] note* Diagnosis Nephrolithiasis Calculus of kidney documented in this encounter [facility] note* Diagnosis High output congestive heart failure [...] History gastric bypass Hospitalization History see above [employer] Other History general Narrative - Reported* Type Description Date Medical History chronic depression Medical History obesity Medical History hypertension Medical History diabetes mallitus Medical History Gastric bypass Surgical History carpal tunnel release Surgical History hysterectomy Surgical History gastric bypass Surgical History ureter stent Hospitalization History see above [employer] Other Hiseqps general Narrative - Reported* Type Description Date Medical History chronic depression Medical History obesity Medical History hypertension Medical History diabetes mellitus Medical History Gastric bypass Medical History KIDNEY STONES Surgical History carpal tunnel release Surgical History hysterectomy Surgical History gastric bypass Surgical History ureter stent Hospitalization History see above [employer] Other Hospital course Narrative No data available for this section [facility] [employer] Hospital Discharge instructions No data available for this section [facility] No data available for this section [facility] [employer] Reason for referral (narrative) Referred by: KULWANT REED, Chalo Frazier [facility] [employer] for referral (narrative)* Diagnostic Procedure Only (Routine) - Pending Review Specialty Diagnoses / Procedures Referred By Arminda mejia Referred To Contact MOLECULAR & FUNCTIONAL IMAGING Diagnoses Hydronephrosis with urinary obstruction due to ureteral calculus Procedures NM RENAL FLOW/FXN W PHARM KIDNEY IMG MORPHOLOGY VASCULAR FLOW 1 W/RX Samy Odonnell MD [address] [place] [address] Molecular & Functional Imaging [address] [place] [address] Referral ID Status Reason Start Date Expiration Date Visits Requested Visits Authorized [id number] Pending Review Auto-Generat ed Referral 07/14/2022 08/13/2023 1 1 [facility] for referral (narrative)* Diagnostic Procedure Only (Routine) - Closed Specialty Diagnoses / Procedures Referred By Arminda mejia Referred To Contact MOLECULAR & FUNCTIONAL IMAGING Diagnoses Hydronephrosis with urinary obstruction due to ureteral calculus Procedures NM RENAL FLOW/FXN W PHARM KIDNEY IMG MORPHOLOGY VASCULAR FLOW 1 W/RX Samy Odonnell MD [address] [place] [address] Molecular & Functional Imaging [address] [place] [address] Referral ID Status Reason Start Date Expiration Date V isits Requested Visits Authorized [id number] Closed Auto-Generate d Referral 07/21/2022 10/20/2022 1 1 [facility] for referral (narrative)* Diagnostic Procedure Only (Routine) - Pending Review Specialty Diagnoses / Procedures Referred By Arminda mejia Referred To Contact XR IMAGING Diagnoses Nephrolithiasis Procedures XR ABDOMEN 3V KUB W/OBLIQUES RADIOLOGIC EXAM ABDOMEN 3+ VIEWS Samy Odonnell MD [address] [place] [address] Xr Imaging Referral ID Status Reason Start Date Expiration Date Visits Requested Visits Authorized [id number] Pending Review Auto-Generat ed Referral 10/21/2022 11/20/2023 1 1 * Diagnostic Procedure Only (Routine) - Pending Review Specialty Diagnoses / Procedures Referred By Contac t Referred To Contact US IMAGING Diagnoses Nephrolithiasis Procedures US KIDNEY/BLADDER US RETROPERITONEAL REAL TIME W/IMAGE COMPLETE Samy Odonnell MD [address] [place] [address] Us Imaging Referral ID Status Reason Start Date Expiration Date Visits Requested Visits Authorized [id number] Pending Review Auto-Generat ed Referral 10/21/2022 11/20/[address] [facility] for referral (narrative)* Diagnostic Procedure Only (Routine) - Closed Specialty Diagnoses / Procedures Referred By Contac t Referred To Contact US IMAGING Diagnoses Nephrolithiasis Procedures US KIDNEY/BLADDER US RETROPERITONEAL REAL TIME W/IMAGE COMPLETE Samy Odonnell MD [address] [place] [address] Us Imaging [place] [address] Referral ID Status Reason Start Date Expiration Date V isits Requested Visits Authorized [id number] Closed Auto-Generate d Referral 10/21/2022 11/20/2023 1 1 [facility] for referral (narrative)* Diagnostic Procedure Only (Routine) - Closed Specialty Diagnoses / Procedures Referred By Contac t Referred To Contact XR IMAGING Diagnoses Nephrolithiasis Procedures XR ABDOMEN 3V KUB W/OBLIQUES RADIOLOGIC EXAM ABDOMEN 3+ VIEWS Samy Odonnell MD [address] [place] [address] Xr Imaging [id number] Referral ID Status Reason Start Date Expiration Date V isits Requested Visits Authorized [id number] Closed Auto-Generate d Referral 10/21/2022 11/20/[address] [facility] for visit Narrative* Diagnostic Procedure Only (Routine) - Closed Specialty Diagnoses / Procedures Referred By Arminda mejia Referred To Contact MOLECULAR & FUNCTIONAL IMAGING Diagnoses Hydronephrosis with urinary obstruction due to ureteral calculus Procedures NM RENAL FLOW/FXN W PHARM KIDNEY IMG MORPHOLOGY VASCULAR FLOW 1 W/RX Samy Odonnell MD [address] [place] [address] Molecular & Functional Imaging [address] [place] [address] Referral ID Status Reason Start Date Expiration Date V isits Requested Visits Authorized [id number] Closed Auto-Generate d Referral 07/21/2022 10/20/2022 1 1 [facility] Diagnostic Procedure Only (Routine) - Closed Specialty Diagnoses / Procedures Referred By Arminda mejia Referred To Contact US IMAGING Diagnoses Nephrolithiasis Procedures US KIDNEY/BLADDER US RETROPERITONEAL REAL TIME W/IMAGE COMPLETE Samy Odonnell MD [address] [place] [id number] Us Imaging [place] [address] Referral ID Status Reason Start Date Expiration Date V isits Requested Visits Authorized [id number] Closed Auto-Generate d Referral 10/21/2022 11/20/2023 1 1 [facility] Summary Purpose Family History Unknown Family Member [...] section and content) DATE CREATED AUTHOR 07/25/2020 [facility] DATE CREATED AUTHOR AUTHOR'S ORGANIZ ATION 04/05/2022 [facility] DATE CREATED AUTHOR AUTHOR'S ORGANIZ ATION 05/06/2022 [employer] DATE CREATED AUTHOR AUTHOR'S ORGANIZ ATION 07/16/2022 [facility] DATE CREATED AUTHOR AUTHOR'S ORGANIZ ATION 07/30/[address] [facility] DATE CREATED AUTHOR AUTHOR'S ORGANIZ ATION 08/01/2022 [facility] DATE CREATED AUTHOR AUTHOR'S ORGANIZ ATION 04/28/2023 [facility] DATE CREATED AUTHOR AUTHOR'S ORGANIZ ATION 06/21/2023 [facility] dical Specialists EPIC REASON FOR VISIT (unrecogniz ed section and content) Reason Comments Consult Kidney Stones Reason Comments 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 - Other Reason Comments Returning Patient's Call Reason Comments Pre-Op Exam Specialty Diagnoses / Procedures Referred By Arminda mejia Referred To Contact ADMITTING Diagnoses Nephrolithiasis Procedures CYSTO/URETERO W/LITHOTRIPSY &INDWELL STENT INSRT CYSTO W/INSERT URETERAL STENT CYSTOURETHROSCOPY W/ URETEROSCOPY AND/OR PYELOSCOPY W/ LITHOTRIPSY INCLUDE INSERTION OF INDWELLING URETERAL STENT CYSTOSCOPY, INSERTION STENT URETERAL J [facility] [address] [place] [address] Referral ID Status Reason Start Date Expiration Date Visits Re quested Visits Authorized [id number] 1 1 Reason Onset Date Comments Opened In Error 09/24/2022 Reason Comments Radio Gen A21 Specialty Diagnoses / Procedures Referred By Arminda mejia Referred To Contact XR IMAGING Diagnoses Nephrolithiasis Procedures XR ABDOMEN 3V KUB W/OBLIQUES RADIOLOGIC EXAM ABDOMEN 3+ VIEWS Samy Odonnell MD [address] [place] [address] [place] [address] Referral ID Status Reason Start Date Expiration Date V isits Requested Visits Authorized [id number] Closed Auto-Generate d Referral 10/21/2022 11/20/2023 1 1 Patient Care team informatio n (unrecognized section and content) Team Status: Inactive Member Role Status Dates Chalo Blum MD Attending Provider Active CESAR Brandon Primary Care Provider Active Team Status: Active Member Role Status Dates CESAR Brandon Primary Care Provider Active Ladle Cleaner Relationship Specialty Start Date End Date Chalo Blum [address] [place] [address] Referring Urology 07/07/22 Ladle Cleaner Relationship Specialty Start Date End Date Chalo Blum [address] [place] [address] Referring Urology 07/07/22 Ladle Cleaner Relationship Specialty Start Date End Date Chalo Blum [address] [place] [address] Referring Urology 07/07/22 Ladle Cleaner Relationship Specialty Start Date End Date Chalo Blum [address] [place] [address] Referring Urology 07/07/22 Ladle Cleaner Relationship Specialty Start Date End Date Chalo Blum [address] [place] [address] Referring Urology 07/07/22 Ladle Cleaner Relationship Specialty Start Date End Date Chalo Blum [address] [place] [address] Referring Urology 07/07/22 Ladle Cleaner Relationship Specialty Start Date End Date Chalo Blum [address] [place] [address] Referring Urology 07/07/22 Ladle Cleaner Relationship Specialty Start Date End Date Chalo Blum Freddie [address] [place] [id number] Referring Urology 07/07/22 Ladle Cleaner Relationship Specialty Start Date End Date Allen Blumshine Frazier [address] [place] [address] Referring Urology 07/07/22 Ladle Cleaner Relationship Specialty Start Date End Date Allen Blumshine Frazier [address] [place] [address] Referring Urology 07/07/22 Ladle Cleaner Relationship Specialty Start Date End Date KulwantAllenChalo P [address] [place] [address] Referring Urology 07/07/22 Ladle Cleaner Relationship Specialty Start Date End Date Allen Blumshine Frazier [address] [place] [address] Referring Urology 07/07/22 Ladle Cleaner Relationship Specialty Start Date End Date Chalo Blum [address] [place] [address] Referring Urology 07/07/22 Ladle Cleaner Relationship Specialty Start Date End Date Chalo Blum [address] [place] [address] Referring Urology 07/07/22 Ladle Cleaner Relationship Specialty Start Date End Date Justin Marley MD [address] [place] [address] PCP - General Family Medicine 06/08/23 Goals [...] or prosecute any alcohol or drug abuse patient.[facility] the event this information is protected by the Federal Confidentiality of Alcohol and Drug Abuse Patient Records regulations: The Federal rules restrict any use of the information to criminally investigate or prosecute any alcohol or drug abuse patient.[facility] the event this information is protected by the Federal Confidentiality of Alcohol and Drug Abuse Patient Records regulations: The Federal rules restrict any use of the information to criminally investigate or prosecute any alcohol or drug abuse patient.[facility] the event this information is protected by the Federal Confidentiality of Alcohol and Drug Abuse Patient Records regulations: The Federal rules restrict any use of the information to criminally investigate or prosecute any alcohol or drug abuse patient.[facility] the event this information is protected by the Federal Confidentiality of Alcohol and Drug Abuse Patient Records regulations: The Federal rules restrict any use of the information to criminally investigate or prosecute any alcohol or drug abuse patient.[facility] the event this information is protected by the Federal Confidentiality of Alcohol and Drug Abuse Patient Records regulations: The Federal rules restrict any use of the information to criminally investigate or prosecute any alcohol or drug abuse patient.[facility] the event this information is protected by the Federal Confidentiality of Alcohol and Drug Abuse Patient Records regulations: The Federal rules restrict any use of the information to criminally investigate or prosecute any alcohol or drug abuse patient.[facility] the event this information is protected by the Federal Confidentiality of Alcohol and Drug Abuse Patient Records regulations: The Federal rules restrict any use of the information to criminally investigate or prosecute any alcohol or drug abuse patient.[facility] the event this information is protected by the Federal Confidentiality of Alcohol and Drug Abuse Patient Records regulations: The Federal rules restrict any use of the information to criminally investigate or prosecute any alcohol or drug abuse patient.[facility] the event this information is protected by the Federal Confidentiality of Alcohol and Drug Abuse Patient Records regulations: The Federal rules restrict any use of the information to criminally investigate or prosecute any alcohol or drug abuse patient.[facility] the event this information is protected by the Federal Confidentiality of Alcohol and Drug Abuse Patient Records regulations: The Federal rules restrict any use of the information to criminally investigate or prosecute any alcohol or drug abuse patient.[facility] the event this information is protected by the Federal Confidentiality of Alcohol and Drug Abuse Patient Records regulations: The Federal rules restrict any use of the information to criminally investigate or prosecute any alcohol or drug abuse patient.[facility]bleIn the event this information is protected by the Federal Confidentiality of Alcohol and Drug Abuse Patient Records regulations: The Federal rules restrict any use of the information to criminally investigate or prosecute any alcohol or drug abuse patient.[facility]bleIn the event this information is protected by the Federal Confidentiality of Alcohol and Drug Abuse Patient Records regulations: The Federal rules restrict any use of the information to criminally investigate or prosecute any alcohol or drug abuse patient.[facility]bleIn the event this information is protected by the Federal Confidentiality of Alcohol and Drug Abuse Patient Records regulations: The Federal rules restrict any use of the information to criminally investigate or prosecute any alcohol or drug abuse patient.[facility]bleIn the event this information is protected by the Federal Confidentiality of Alcohol and Drug Abuse Patient Records regulations: The Federal rules restrict any use of the information to criminally investigate or prosecute any alcohol or drug abuse patient.[facility]bleIn the event this information is protected by the Federal Confidentiality of Alcohol and Drug Abuse Patient Records regulations: The Federal rules restrict any use of the information to criminally investigate or prosecute any alcohol or drug abuse patient.[facility]bleIn the event this information is protected by the Federal Confidentiality of Alcohol and Drug Abuse Patient Records regulations: The Federal rules restrict any use of the information to criminally investigate or prosecute any alcohol or drug abuse patient.[facility]bleIn the event this information is protected by the Federal Confidentiality of Alcohol and Drug Abuse Patient Records regulations: The Federal rules restrict any use of the information to criminally investigate or prosecute any alcohol or drug abuse patient.[facility]bleIn the event this information is protected by the [facility] Confidentiality of Alcohol and Drug Abuse Patient Records regulations: The Federal rules restrict any use of the information to criminally investigate or prosecute any alcohol or drug abuse patient.[facility]bleIn the event this information is protected by the Federal Confidentiality of Alcohol and Drug Abuse Patient Records regulations: The Federal rules restrict any use of the information to criminally investigate or prosecute any alcohol or drug abuse patient.[facility] FOR RECORDS PERTAINING TO PATIENTS WHO ARE [...] BE BASED ON THE PRIMARY CLINICAL RECORDS. [facility]. provides no warranty or guarantee of the accuracy or completeness of information in this document.
[2023-07-12 07:41] LABS: Anion Gap 15.5; BUN Creatinine Ratio 14.8; Calcium 9.1 mg/dL (8.5-10.1); Carbon Dioxide 25.5 mmol/L (21.0-32.0); Chloride 105 mmol/L (98-107); Estimated GFR (African America 34 (>=60); Estimated GFR (Non-African Ame 28 (>=60); Glucose 122 mg/dL (74-106); Sodium 142 mmol/L (136-145); Troponin I High Sensitivity 4.8 pg/mL (4.0-51.3)
== END 2023-07-12 08:45 | disposition home or self-care (01) ==
PROVIDERS: Emergency Provider Emergency Medicine; PCP Family Medicine
DX: R55 Syncope and collapse (principal); Z79.899 Other long term (current) drug therapy
CPT/HCPCS: 36415; 80048; 84484; 85025; 93005; 99284

== ENCOUNTER 2023-07-12 14:39 | Outpatient (OUT) | payer BC, SELFPAY ==
--- OUTSIDE RECORDS SUMMARY | 2023-07-12 14:54 | XMS_ITS | CCD ---
Author Name Unknown Address [address] [place] [address] Organization [facility] Care Team Providers Care Pheresis Specialist Name Role Phone Unavailable Primary Care Provider [...] DR CHALO Frazier Consulting Unavailable WEST, DR BRADNE Hallman Consulting Unavailable YESIKA, BALBINA Admitting Unavailable YESIKA, BALBINA Attending Unavailable YESIKA, BALBINA Primary Care Unavailable YESIKA, BALBINA Consulting Unavailable WEST, DR BRADEN Hallman Admitting Unavailable WEST, DR BRADEN Hallman Attending Unavailable YESIKA, BALBINA Primary Care Unavailable WEST, DR BRADEN Hallman Consulting Unavailable YESIKA, BALBINA J Primary Care Physician [phone] Balbina Napoles Unavailable Unavailable Unavailable MD Chalo [...] Unavailable Justin Marley MD Primary Care Provider [phone] Allergies Allergy Classification Reported Allergen(s) Allergy Type Date of Onset Reaction(s) Facility (15 sources) prednisoLONE; Translations: [PREDNISOLONE] Drug Allergy 3 Hives [facility] (20 sources) valACYclovir; Translations: [valacyclovir] Drug Allergy 2 hives, Weal (disorder) [facility] (20 sources) predniSONE; Translations: [prednisone] Drug Allergy 2 Weal (disorder), Hives [facility] (1 source) predniSONE Drug Allergy [facility] (2 sources) valACYclovir; Translations: [Valtrex] Drug Allergy [facility] (2 sources) Prednisone Allergy to substance 2 [facility] (2 sources) traMADol Drug Allergy 4 [facility] (2 sources) valACYclovir Drug Allergy 4 [facility] Medications Current Medications Medication Drug Class(es) Dates Sig (Normalized) Sig (Original) acetaminophen 500 mg oral tablet (2 sources) Start: 10-12-2022 End: 10-26-2022 take 2 tablets by mouth every six hours acetaminophen (TYLENOL EXTRA STRENGTH) 500 mg tablet Take 2 tablets by mouth every 6 hours for 14 days. 112 tablet 0 10/12/2022 10/26/2022 Active Comment on above: Take 2 tablets by [facility] every 6 hours for 14 days. acetaminophen 325 mg / HYDROcodone bitartrate 5 mg oral tablet (2 sources) Opioid Agonist Start: 06-18-2022 acetaminophen-hydroc odone 325 mg-5 mg oral tablet 1 tab(s), Oral, q4hr Pain, 7 tab(s), Refill(s) 0, [id number], 160, cm, 06/11/22 9:42:00 EST, Height/Length Dosing, [...] Comment on above: Take 1 capsule by [facility] twice daily. duloxetine 60 mg Cap-DR [...] on above: Take 1 capsule by mo [facility] twice daily for 7 days. Take [...] Comment on above: Take 1 tablet by [facility] every 6 hours as needed for pain for up to 3 days. rOPINIRole 0.5 mg oral tablet (20 sources) Nonergot Dopamine Agonist Start: 03-31-2022 take 2 tablets by mouth three times daily ropinirole 0.5 mg Tab 1 mg = 2 tab(s), Oral, TID, for restless leg syndrome, Refills(s) 0 Start Date: 03/31/22 Status: Ordered Start: 02-02-2022 take 1 tablet by [facility] once daily at bedtime rOPINIRole HCl [...] 14 tab(s), Refill(s) 0, [id number], 160, cm, 06/11/22 9:42:00 EST, Height/Length Dosing, [...] Comment on above: Take 1 capsule by [facility] three times daily for 3 days. Take 1 capsule by [facility] three times daily. 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 Stable severe left renal atrophy. Cna Instructor: [facility] Transcribe Date/Time: Apr 26 2023 2:45P Dictated by : ALBERT FRIEDMAN MD This examination was interpreted and the report reviewed and electronically signed by: DAPHNE FAN MD on Apr 26 2023 4:07PM EST [id number] Normal [facility] XR ABDOMEN 3V KUB W/OBLIQUES on [...] at the left mid and upper abdomen. Cna Instructor: [facility] Transcribe Date/Time: Apr 26 2023 4:04P Dictated by : DAPHNE FAN MD This examination was interpreted and the report reviewed and electronically signed by: DAPHNE FAN MD on Apr 26 2023 4:11PM EST [id number] Normal [facility] CNOVon 10-21-2022 CNOV Office Visit (UROSMN ) ELIZABETH IRVIN ([id number]) 1965 F Date Time Provider Department 10/21/22 [...] Samy Odonnell MD Director, Surgical Stone Disease [facility] Pager [phone] 10/21/2022 Dana Renteria RN 10/21/2022 12:52 PM Signed Actual procedure/procedure scheduled: Yes Performing provider/scheduled provider: Yes Patient was roomed in: Q9- 05 Die Repairer Forging offered:Patient declines Patient arrived in the room [...] Education Session: None Instruction Provided To: Patient Body Care Manager Present: not applicable Discipline: Nursing Learning Topic: [...] and/or imag (more content not included)... Normal [facility] ANES POSTPROC EVALon 023 ANES POSTPROC EVAL HNO ID: [id number] Author: Gabi Dougherty MD Service: ? Author Type: Anesthesiologist Type: Anesthesia Postprocedure Evaluation Filed: 10/12/2022 3:28 PM Note Text: POST ANESTHESIA EVALUATION NOTE : 1965 Procedure Summary Date: 10/12/22 [place] / [place] [address] [place] Anesthesia Start: 728 Anesthesia Stop: 1029 Procedure: [...] October 12, 2022 TIME: 3:28 PM CSN: [id number] Normal [facility] ANES PRE-OPon 10-12-2022 ANES PRE-OP HNO ID: [id number] Author: Gabi Dougherty MD Service: ? Author [...] and consent discussed: yes. Patient / Responsible Libertarian agrees to proceed: yes Patient / Surrogate [...] October 12, 2022 TIME: 9:08 AM CSN: [id number] Normal [facility] Bacteria Ur Culton 3 Bacteria identified Cx Nom (U) CULTURE, URINE: No growth (<1,000 CFU/ml) Normal [facility] Comment on above: Performed By: #### 6 30-4 ####[facility] [id number] [address] [place] CALCULI ANALYSISon 3 Calculus analysis [Interp] Normal [facility] Comment on above: Order Comment: Speci men Type: CALCULUS SPECIMENOrdering Facility: [facility] Address: [address] [place] [address] Result Comment: This test was developed and its performance characteristics determined by [facility] Pathology and Laboratory Medicine [place] ([facility]). It has not been cleared or approved by the FDA. [facility] is regulated under CLIA as qualified to perform high-complexity testing. This test is used for clinical purposes. It should not be regarded as investigational or for research. Performed By: #### C SA ####[facility] [id number] [address] STATES OF [facility] CALCULUS COLOR BROWN Normal [facility] Comment on above: Order Comment: Speci men Type: CALCULUS SPECIMENOrdering Facility: [facility] Address: [address] [place] [address] Performed By: #### C SA ####[facility] [id number] [address] [place] CALCULUS COMPOSITION 1 70% Calcium Oxala te Monohydrate Normal [facility] Comment on above: Order Comment: Speci men Type: CALCULUS SPECIMENOrdering Facility: [facility] Address: [address] [place] [address] Performed By: #### C SA ####[facility] [id number] [address] [place] CALCULUS COMPOSITION 2 20% Calcium Oxala te Dihydrate Normal [facility] Comment on above: Order Comment: Speci men Type: CALCULUS SPECIMENOrdering Facility: [facility] Address: [address] [place] [address] Performed By: #### C SA ####[facility] [id number] [address] [place] CALCULUS COMPOSITION 3 10% Minor Components Normal [facility] Comment on above: Order Comment: Speci men Type: CALCULUS SPECIMENOrdering Facility: [facility] Address: [address] [place] [address] Performed By: #### C SA ####[facility] [id number] [address] CALCULUS SIZE AND WT Multiple pieces. 0.0655 GRAMS Normal [facility] Comment on above: Order Comment: Speci men Type: CALCULUS SPECIMENOrdering Facility: [facility] Address: [address] [place] [address] Performed By: #### C SA ####[facility] [id number] [address] [place] CALCULUS TYPE CALCULI/CALCULUS Normal [facility] Comment on above: Order Comment: Speci men Type: CALCULUS SPECIMENOrdering Facility: [facility] Address: [address] [place] [address] Performed By: #### C SA ####[facility] [id number] [address] [place] OPERATIVE NOon 10-12-2022 OPERATIVE NO HNO ID: [id number] Author: Samy Odonnell MD Service: Urology Author Type: Physician Type: Operative Report Filed: 10/21/2022 11:54 AM Note Text: OPERATIVE/PROCEDURE REPORT LOG ID: [id number] Surgery/Procedure Date: 10/12/2022 Incision/Procedure Start Time: 8:36 AM Incision Close/Procedure End Time: 10:05 AM Surgeon(s)/Procedural ist(s) and Outside Solar Sales Consultant(s): Surgeon(s) and Role: * Samy Odonnell MD - Primary * Nori Jefferson MD - Resident - Assisting Procedure(s): Right Flexible ureteroscopy Percutaneous renal access Dilation of renal access tract Right percutaneous nephrolithotomy - Mini PCNL (16Fr) 2 cm max dimension [id number] right JJ stent insertion Physician time for fluoroscopic imaging and interpretation <1hr Anatomic Site: Right kidney Approach: Endoscopic Anesthesia: General Operative Indications: This is a 56 year old female with a right renal pelvis stone (15mm). After discussing the risks, benefits, and alternatives of the procedure the patient has elected to pursue management of their condition via the aforementioned surgery. Intraoperative Findings: Stone [place]: Primary stone 15 mm renal pelvis; Additional [...] cystoscope was used to perform cystourethroscopy. A 5-turkmen open-ended ureteral catheter was used to intubate [...] out through the urethral meatus to gain pjjnahz-hlf-ospyfrr access. A 4-New Zealander ureteral glide catheter was used to exchange the zpjjaxf-agh-xldgfie guidewire for an Amplatz superstiff wire. The [...] mls S (more content not included)... Normal [facility] Bacteria Ur Culton 3 Bacteria identified [...] technique or straight catheterization for???urine???collect ion. Normal [facility] Comment on above: Performed By: #### 6 30-4 ####[facility] [id number] [facility] [id number] [address] [place] Basic metabolic 2000 panelon 09-28-2022 Anion gap [Moles/Vol] 8 mmol/L Low 9-18 [facility] Comment on above: Order Comment: Speci men Type: BLOOD SPECIMEN [facility] Address: [address] [address] Performed By: #### 2 4321-2 #### [facility] CLIA [id number] [address] [place] [address]66 Calcium [Mass/Vol] 9.5 mg/dL Normal 8.5-10.2 [facility] Comment on above: Order Comment: Speci men Type: BLOOD SPECIMEN [facility] Address: [address] [address] Performed By: #### 2 4321-2 #### [facility] CLIA [id number] [address] [place] [address]75 Chloride [Moles/Vol] 108 mmol/L High 97-105 [facility] Comment on above: Order Comment: Speci men Type: BLOOD SPECIMEN [facility] Address: [address] [address] Performed By: #### 2 4321-2 #### [facility] CLIA [id number] [address] [place] [address] 12531 CO2 [Moles/Vol] 24 mmol/L Normal 22-30 [facility] Comment on above: Order Comment: Speci men Type: BLOOD SPECIMEN [facility] Address: [address] [address] Performed By: #### 2 4321-2 #### [facility] CLIA [id number] [address] [place] [address]7082 Creatinine [Mass/Vol] 1.62 mg/dL High 0.58-0.96 [facility] Comment on above: Order Comment: Speci men Type: BLOOD SPECIMEN [facility] Address: [address] [address] Performed By: #### 2 4321-2 #### [facility] CLIA [id number] [address] [place] [address]81 ESTIMATED GLOMERULAR FILTRATION RATE 37 mL/min/1.73m??? Low >=60 [facility] Comment on above: Order Comment: Tim jeff Type: BLOOD SPECIMEN [facility] Address: [address] [place] [address] Result Comment: Reema mated Glomerular Filtration Rate [...] GFR. Performed By: #### 2 4321-2 #### [facility] CLIA [id number] [address] [place] [address]234 Glucose [Mass/Vol] 89 mg/dL Normal 74-99 [facility] Comment on above: Order Comment: Tim jeff Type: BLOOD SPECIMEN [facility] Address: [address] [place] [address] Result Comment: The [place] Diabetes Association (ADA) provides guidance for cutoff [...] Standards of Medical Care in Diabetes 2016, [place] Diabetes Association. Diabetes Care. 2016.39(Suppl 1). Performed By: #### 2 4321-2 #### [facility] CLIA [id number] [address] [place] [address] Potassium [Moles/Vol] 5.0 mmol/L Normal 3.7-5.1 [facility] Comment on above: Order Comment: Speci men Type: BLOOD SPECIMEN [facility] Address: [address] [place] [address] Performed By: #### 2 4321-2 #### [facility] CLIA [id number] [address] [place] [address]208 Sodium [Moles/Vol] 140 mmol/L Normal 136-144 [facility] Comment on above: Order Comment: Speci men Type: BLOOD SPECIMEN [facility] Address: [address] [place] [address] Performed By: #### 2 4321-2 #### [facility] CLIA [id number] [address] [place] [address] 35459 Urea nitrogen [Mass/Vol] 20 mg/dL Normal 7-21 [facility] Comment on above: Order Comment: Speci men Type: BLOOD SPECIMEN [facility] Address: [address] [place] [address] Performed By: #### 2 4321-2 #### [facility] CLIA [id number] [address] [place] [address] 28908 CBC W Auto Differential pane l (Bld)on 09-28-2022 Basophils (Bld) [#/Vol] 0.04 10*3/uL Normal <0.11 [facility] Comment on above: Order Comment: Speci men Type: BLOOD SPECIMENOrdering Facility: [facility] Address: [address] [place] [address] Performed By: #### 5 7021-8 ####[facility] [id number] [place] [address] Basophils/100 WBC (Bld) 1.0 % Normal [facility] Comment on above: Order Comment: Speci men Type: BLOOD SPECIMENOrdering Facility: [facility] Address: [address] [place] [address] Performed By: #### 5 7021-8 ####[facility] [id number] [place] [address] Differential cell count method Nom (Bld) Auto Normal [facility] Comment on above: Order Comment: Speci men Type: BLOOD SPECIMENOrdering Facility: [facility] Address: [address] [place] [address] Performed By: #### 5 7021-8 ####[facility] [id number] [place] [address] Eosinophils (Bld) [#/Vol] 0.12 10*3/uL Normal <0.46 [facility] Comment on above: Order Comment: Speci men Type: BLOOD SPECIMENOrdering Facility: [facility] Address: [address] [place] [address] Performed By: #### 5 7021-8 ####[facility] [id number] [place] [address] Eosinophils/100 WBC (Bld) 3.1 % Normal [facility] Comment on above: Order Comment: Speci men Type: BLOOD SPECIMENOrdering Facility: [facility] Address: [address] [place] [address] Performed By: #### 5 7021-8 ####[facility] [id number] [place] [address] Erythrocyte distribution width (RBC) [Ratio] 14.3 % Normal 11.5-15.0 [facility] Comment on above: Order Comment: Speci men Type: BLOOD SPECIMENOrdering Facility: [facility] Address: [address] [place] [address] Performed By: #### 5 7021-8 ####[facility] [id number] [place] [address] Hematocrit (Bld) [Volume fraction] 31.4 % Low 36.0-46.0 [facility] Comment on above: Order Comment: Speci men Type: BLOOD SPECIMENOrdering Facility: [facility] Address: [address] [place] [address] Performed By: #### 5 7021-8 ####[facility] [id number] [place] [address] Hemoglobin (Bld) [Mass/Vol] 9.3 g/dL Low 11.5-15.5 [facility] Comment on above: Order Comment: Speci men Type: BLOOD SPECIMENOrdering Facility: [facility] Address: [address] [place] [address] Performed By: #### 5 7021-8 ####[facility] [id number] [place] [address] Immature granulocytes (Bld) [#/Vol] 10*3/uL Normal <0.10 [facility] Comment on above: Order Comment: Speci men Type: BLOOD SPECIMENOrdering Facility: [facility] Address: [address] [place] [address] Performed By: #### 5 7021-8 ####[facility] [id number] [place] [address] Immature granulocytes/100 WBC (Bld) 0.3 % Normal [facility] Comment on above: Order Comment: Speci men Type: BLOOD SPECIMENOrdering Facility: [facility] Address: [address] [place] [address] Performed By: #### 5 7021-8 ####[facility] [id number] [place] [address] Lymphocytes (Bld) [#/Vol] 1.16 10*3/uL Normal 1.00-4.00 [facility] Comment on above: Order Comment: Speci men Type: BLOOD SPECIMENOrdering Facility: [facility] Address: [address] [place] [address] Performed By: #### 5 7021-8 ####[facility] [id number] [place] [address] Lymphocytes/100 WBC (Bld) 30.4 % Normal [facility] Comment on above: Order Comment: Speci men Type: BLOOD SPECIMENOrdering Facility: [facility] Address: [address] [place] [address] Performed By: #### 5 7021-8 ####[facility] [id number] [place] [address] MCH (RBC) [Entitic mass] 27.3 pg Normal 26.0-34.0 [facility] Comment on above: Order Comment: Speci men Type: BLOOD SPECIMENOrdering Facility: [facility] Address: [address] [place] [address] Performed By: #### 5 7021-8 ####[facility] [id number] [place] [address] MCHC (RBC) [Mass/Vol] 29.6 g/dL Low 30.5-36.0 [facility] Comment on above: Order Comment: Speci men Type: BLOOD SPECIMENOrdering Facility: [facility] Address: [address] [place] [address] Performed By: #### 5 7021-8 ####[facility] [id number] [place] [address] MCV (RBC) [Entitic vol] 92.1 fL Normal 80.0-100.0 [facility] Comment on above: Order Comment: Speci men Type: BLOOD SPECIMENOrdering Facility: [facility] Address: [address] [place] [address] Performed By: #### 5 7021-8 ####[facility] [id number] [place] [address] Monocytes (Bld) [#/Vol] 0.32 10*3/uL Normal <0.87 [facility] Comment on above: Order Comment: Speci men Type: BLOOD SPECIMENOrdering Facility: [facility] Address: [address] [place] [address] Performed By: #### 5 7021-8 ####[facility] [id number] [place] [address] Monocytes/100 WBC (Bld) 8.4 % Normal [facility] Comment on above: Order Comment: Speci men Type: BLOOD SPECIMENOrdering Facility: [facility] Address: [address] [address] Performed By: #### 5 7021-8 ####[facility] [id number] [place] [address] Neutrophils (Bld) [#/Vol] 2.17 10*3/uL Normal 1.45-7.50 [facility] Comment on above: Order Comment: Speci men Type: BLOOD SPECIMENOrdering Facility: [facility] Address: [address] [address] Performed By: #### 5 7021-8 ####[facility] [id number] [place] [address] Neutrophils/100 WBC (Bld) 56.8 % Normal [facility] Comment on above: Order Comment: Speci men Type: BLOOD SPECIMENOrdering Facility: [facility] Address: [address] [place], [place] [address] Performed By: #### 5 7021-8 ####[facility] [id number] [place] [address] Nucleated RBC (Bld) [#/Vol] 10*3/uL Normal <0.01 [facility] Comment on above: Order Comment: Speci men Type: BLOOD SPECIMENOrdering Facility: [facility] Address: [address] [address] Performed By: #### 5 7021-8 ####[facility] [id number] [place] [address] Nucleated RBC/100 WBC (Bld) [Ratio] 0.0 /100 WBC Normal [facility] Comment on above: Order Comment: Speci men Type: BLOOD SPECIMENOrdering Facility: [facility] Address: [address] [place] [address] Performed By: #### 5 7021-8 ####[facility] [id number] [place] [address] Platelet mean volume (Bld) [Entitic vol] 8.7 fL Low 9.0-12.7 [facility] Comment on above: Order Comment: Speci men Type: BLOOD SPECIMENOrdering Facility: [facility] Address: [address] [place] [address] Performed By: #### 5 7021-8 ####[facility] [id number] [place] [address] Platelets (Bld) [#/Vol] 338 10*3/uL Normal 150-400 [facility] Comment on above: Order Comment: Speci men Type: BLOOD SPECIMENOrdering Facility: [facility] Address: [address] [place] [address] Performed By: #### 5 7021-8 ####[facility] [id number] [place] [address] RBC (Bld) [#/Vol] 3.41 10*6/uL Low 3.90-5.20 [facility] Comment on above: Order Comment: Speci men Type: BLOOD SPECIMENOrdering Facility: [facility] Address: [address] [place] [address] Performed By: #### 5 7021-8 ####[facility] [id number] [place] [address] WBC (Bld) [#/Vol] 3.82 10*3/uL Normal 3.70-11.00 [facility] Comment on above: Order Comment: Speci men Type: BLOOD SPECIMENOrdering Facility: [facility] Address: [place] [address] Performed By: #### 5 7021-8 ####[facility]IA [id number] [place] [address] CNOVon 09-28-2022 CNOV Office Visit (UROLMN ) ELIZABETH IRVIN ([id number]) 1965 F Date Time Provider Department 09/28/22 1:30 PM MARLEY CHOE During your visit today, we recorded the following information about you: Pulse Blood pressure Weight Height 75/minute 119/79 60.8 kg 1.6 m Marley Gutierrez PA-C 09/28/2022 2:56 PM Signed [facility] PRE-OP NOTE [...] Signed: Yes. Pre-op HANDP Done by Physician Outside Solar Sales Consultant: Yes. PATIENT INSTRUCTIONS FOR SURGERY 1.) DO [...] patient is optimally prepared for surgery. Marley Gutiererz PA-C Electronically signed Marley Gutierrez PA-C 09/28/2022 [...] problems. Neurologic: No history of TIA's, stroke, FREEZER UNLOADER tumor, impaired sensorium, hemiplegia or paraplegia No neurological symptoms or problems. Hematology/Oncology: No history of bleeding or clotting disord (more content not included)... Normal [facility] HISTORY PHYSICALon 3 HISTORY PHYSICAL HNO ID: [id number] Author: Marley Brown PA-C Service: ? Author Type: Physician Outside Solar Sales Consultant Type: HANDP Filed: 09/28/2022 2:56 PM Note [...] problems. Neurologic: No history of TIA's, stroke, FREEZER UNLOADER tumor, impaired sensorium, hemiplegia or paraplegia No [...] (no units) Date Value 09/07/2022 Negative Specific [place], Ur (no units) Date Value 09/07/2022 1.014 [...] ASSESSMENT AND (more content not included)... Normal [facility] CNPNon 09-24-2022 CNPN Telephone (UROLMN) ELIZABETH IRVIN ([id number]) 1965 F Date Time Provider Department 09/24/22 [...] [E21.3] Order(s):CONSULT TO ENDOCRINOLOGY [9007] Order #: [id number]: 1 FUTURE Prescriptions as of 09/24/2022 - [...] Encounter Status:Closed by MARLEY GUTIERREZ on 09/24/22 [facility] CNOVon 09-16-2022 CNOV Office Visit (UROSMN ) ELIZABETH IRVIN ([id number]) 1965 F Date Time Provider Department 09/16/22 12:15 PM SAMY ODONNELL During your visit today, we recorded the following information about you: Dede Story RN 09/16/2022 12:17 PM Signed Actual procedure/procedure scheduled: Yes Performing provider/scheduled provider: Yes Patient was roomed in: Q9- 09 Die Repairer Forging offered: Patient declines Patient arrived in the [...] Education Session: None Instruction Provided To: Patient Body Care Manager Present: not applicable Discipline: Nursing Learning Topic: [...] Samy Odonnell MD Director, Surgical Stone Disease [facility] [place], [facility] Pager [phone] 09/16/2022 Dede Story RN 09/16/2022 12:30 PM [...] risk ass (more content not included)... Normal [facility] ANES POSTPROC EVALon 023 ANES POSTPROC EVAL HNO ID: [id number] Author: Florentino Murray DO Service: ? Author Type: Anesthesiologist Type: Anesthesia Postprocedure Evaluation Filed: 09/07/2022 5:03 PM Note Text: POST ANESTHESIA EVALUATION NOTE : 1965 Procedure Summary Date: 09/07/22 Room / Location: [address] Anesthesia Start: 1330 Anesthesia Stop: 1547 [...] September 07, 2022 TIME: 5:03 PM CSN: [id number] Normal [facility] ANES PRE-OPon 09-07-2022 ANES PRE-OP HNO ID: [id number] Author: Florentino Murray DO Service: ? Author [...] and consent discussed: yes. Patient / Responsible Libertarian agrees to proceed: yes Patient / Surrogate [...] September 07, 2022 TIME: 10:53 AM CSN: [id number] Normal [facility] BRIEF OP NOTon 09-07-2022 BRIEF OP NOT HNO ID: [id number] Author: Yasmeen Alexander MD Service: Urology Author Type: Fellow Type: Brief Op Note Filed: 09/07/2022 3:15 PM Note Text: BRIEF OPERATIVE / PROCEDURE NOTE LOG ID: [id number] Surgery/Procedure Date: 09/07/2022 Incision/Procedure Start Time: 1:53 PM Incision Close/Procedure End Time: Surgeon(s)/Procedural ist(s) and Outside Solar Sales Consultant(s): Surgeon(s) and Role: * Samy Odonnell MD [...] 2022 TIME: 3:15 PM PAGER/CONTACT #: Normal [facility] CALCULI ANALYSISon 3 Calculus analysis [Interp] Normal [facility] Comment on above: Order Comment: Speci men Type: CALCULUS SPECIMENOrdering Facility: [facility] Address: [address] [place] [address] Result Comment: This test was developed and its performance characteristics determined by [facility] [place] ([facility]). It has not been cleared or approved by the FDA. -[facility] is regulated under CLIA as qualified to perform high-complexity testing. This test is used for clinical purposes. It should not be regarded as investigational or for research. Performed By: #### C SA ####[facility] [id number] [address] STATES OF [facility] CALCULUS COLOR WHITE Normal [facility] Comment on above: Order Comment: Speci men Type: CALCULUS SPECIMENOrdering Facility: [facility] Address: [address] [place] [address] Performed By: #### C SA ####[facility] [id number] [address] [place] CALCULUS COMPOSITION 1 70% Calcium Oxala te Monohydrate Normal [facility] Comment on above: Order Comment: Speci men Type: CALCULUS SPECIMENOrdering Facility: [facility] Address: [address] [place] [address] Performed By: #### C SA ####[facility] [id number] [address] [place] CALCULUS COMPOSITION 2 20% Calcium Oxala te Dihydrate Normal [facility] Comment on above: Order Comment: Speci men Type: CALCULUS SPECIMENOrdering Facility: [facility] Address: [address] [place] [address] Performed By: #### C SA ####[facility] [id number] [place] [address] CALCULUS COMPOSITION 3 10% Minor Components Normal [facility] Comment on above: Order Comment: Speci men Type: CALCULUS SPECIMENOrdering Facility: [facility] Address: [address] [place] [address] Performed By: #### C SA ####[facility] [id number] [address] CALCULUS SIZE AND WT Multiple pieces. 0.1291 GRAMS Normal [facility] Comment on above: Order Comment: Speci men Type: CALCULUS SPECIMENOrdering Facility: [facility] Address: [address] [place] [address] Performed By: #### C SA ####[facility] [id number] [address] [place] CALCULUS TYPE CALCULI/CALCULUS Normal [facility] Comment on above: Order Comment: Speci men Type: CALCULUS SPECIMENOrdering Facility: [facility] Address: [address] [place] [address] Performed By: #### C SA ####[facility] [id number] [address] [place] CNOVon 09-07-2022 CNOV Office Visit (UROLMN ) ELIZABETH IRVIN ([id number]) 1965 F Date Time Provider Department 09/07/22 [...] problems. Neurologic: No history of TIA's, stroke, FREEZER UNLOADER tumor, impaired sensorium, hemiplegia or paraplegia No [...] (no units) Date Value 08/18/2022 Negative Specific [place], Ur (no units) Date Value 08/18/2022 1.016 [...] 07, 2022 TIME: 8:59 AM PAGER/CONTACT #: [facility] PRE-OP NOTE Elizabeth Irvin is a 56 year old female. Pre-op Date: September 07, 2022 Date of Procedure: 09/07/22 Does the patien (more content not included)... Normal [facility] HISTORY PHYSICALon HISTORY PHYSICAL HNO ID: [id number] Author: Marley Brown PA-C Service: ? Author Type: Physician Outside Solar Sales Consultant Type: HANDP Filed: 09/07/2022 10:06 AM Note [...] problems. Neurologic: No history of TIA's, stroke, FREEZER UNLOADER tumor, impaired sensorium, hemiplegia or paraplegia No [...] (no units) Date Value 08/18/2022 Negative Specific [place], Ur (no units) Date Value 08/18/2022 1.016 [...] 07, 2022 TIME: 8:59 AM PAGER/CONTACT #: [facility] PRE-OP NOTE [...] Pulse 7 (more content not included)... Normal [facility] OPERATIVE NOon 09-07-2022 OPERATIVE NO HNO ID: [id number] Author: Samy Odonnell MD Service: Urology Author Type: Physician Type: Operative Report Filed: 09/07/2022 3:56 PM Note Text: OPERATIVE/PROCEDURE REPORT LOG ID: [id number] Surgery/Procedure Date: 09/07/2022 Incision/Procedure Start Time: 1:53 PM Incision Close/Procedure End Time: Surgeon(s)/Procedural ist(s) and Outside Solar Sales Consultant(s): Surgeon(s) and Role: * Samy Odonnell MD - Primary * Kolton Reyes MD - Resident - Assisting * Yasmeen Alexander MD - Fellow Procedure(s): Cystourethroscopy Left retrograde pyelogram Left ureteroscopy and laser lithotripsy with stone basketing/manipulatio n Left JJ ureteric stent exchange Fluoroscopy < 1 hr Approach: Endoscopic Anesthesia: General Findings: Stone [place]: Primary stone 10 mm mid ureter, significantly [...] Fluoroscopy C-arm was brought into the room. Body Team Member images were taken. A 22 Fr rigid [...] through the scope into the kidney. A 8020 Media single-use flexible ureteroscope was advanced over the [...] Odonnell MD, FACS Director, Surgical Stone Disease, [facility] (more content not included)... Normal [facility] PTH INTACT BLDon 09-07-2022 Parathyrin.intact [Mass/Vol] 81 pg/mL High 15 - 65 pg/mL [facility] PTH-Intact SerPl-ncon - Parathyrin.intact [Mass/Vol] 81 pg/mL High 15-65 [facility] Comment on above: Order Comment: Speci men Type: BLOOD SPECIMENOrdering Facility: [facility] Address: [address] [place] [id number] Performed By: #### 2 731-8 ####[facility] [id number] [address] [place] URINALYSIS, REFLEX MICROSCOP ICon 09-07-2022 Bilirubin Ql (U) Negative Normal Negative [facility] Comment on above: Order Comment: Speci men Type: URINE SPECIMENOrdering Facility: [facility] Address: [address] [address] Performed By: #### L [id number] ####[facility] [id number] [address] [place] Clarity (Unsp spec) Cloudy Abnormal Clear [facility] Comment on above: Order Comment: Speci men Type: URINE SPECIMENOrdering Facility: [facility] Address: [address] [place] [address] Performed By: #### L [id number] ####[facility] [id number] [address] Color (U) Yellow Normal Yellow [facility] Comment on above: Order Comment: Speci men Type: URINE SPECIMENOrdering Facility: [facility] Address: [address] [place] [address] Performed By: #### L [id number] ####[facility] [id number] [address] Epithelial cells LM.HPF (Urine sed) [#/Area] Few Normal [facility] Comment on above: Order Comment: Speci men Type: URINE SPECIMENOrdering Facility: [facility] Address: [address] [place] [address] Performed By: #### L [id number] ####[facility] [id number] [place] [address] [place] Glucose Test strip (U) [Mass/Vol] Negative Normal Trace, Negative [facility] Comment on above: Order Comment: Speci men Type: URINE SPECIMENOrdering Facility: [facility] Address: [address] [place] [address] Performed By: #### L [id number] ####[facility] [id number] [place] [address] [place] Hemoglobin Ql (U) Trace Normal Negative, Trace [facility] Comment on above: Order Comment: Speci men Type: URINE SPECIMENOrdering Facility: [facility] Address: [address] [place] [address] Performed By: #### L [id number] ####[facility] [id number] [place] [address] [place] Ketones Ql (U) Negative Normal Negative, Trace [facility] Comment on above: Order Comment: Speci men Type: URINE SPECIMENOrdering Facility: [facility] Address: [address] [place] [address] Performed By: #### L [id number] ####[facility] [id number] [place] [address] [place] Leukocyte esterase Test strip Ql (U) 500 Nicholas/uL Abnormal Negative, 25 Nicholas/uL [facility] Comment on above: Order Comment: Speci men Type: URINE SPECIMENOrdering Facility: [facility] Address: [address] [place] [address] Performed By: #### L [id number] ####[facility] [id number] [place] [address] [place] Nitrite Ql (U) Negative Normal Negative [facility] Comment on above: Order Comment: Speci men Type: URINE SPECIMENOrdering Facility: [facility] Address: [address] [place], [place] [phone] Performed By: #### L [id number] ####[facility] [id number] [place] [address] [place] pH (U) 6.0 [pH] Normal 5.0-8.0 [facility] Comment on above: Order Comment: Speci men Type: URINE SPECIMENOrdering Facility: [facility] Address: [address] [address] Performed By: #### L [id number] ####[facility] [id number] [address] Protein (U) [Mass/Vol] Trace Normal Trace , Negative [facility] Comment on above: Order Comment: Speci men Type: URINE SPECIMENOrdering Facility: [facility] Address: [address] [address] Performed By: #### L [id number] ####[facility] [id number] [place] [address] [place] RBC LM.HPF (Urine sed) [#/Area] 0-3 /HPF Normal 0-3 /HPF [facility] Comment on above: Order Comment: Speci men Type: URINE SPECIMENOrdering Facility: [facility] Address: [address] [place] [address] Performed By: #### L [id number] ####[facility] [id number] [place] [address] [place] Specific gravity (U) [Rel density] 1.014 Normal 1.005-1.030 [facility] Comment on above: Order Comment: Speci men Type: URINE SPECIMENOrdering Facility: [facility] Address: [address] [place], [place] [phone] Performed By: #### L [id number] ####[facility] [id number] [address] [place] Urobilinogen Ql (U) Negative Normal Negative [facility] Comment on above: Order Comment: Speci men Type: URINE SPECIMENOrdering Facility: [facility] Address: [address] [place], [place] [phone] Performed By: #### L [id number] ####[facility] [id number] [address] [place] WBC LM.HPF (Urine sed) [#/Area] /[HPF] Abnormal 0-5 /HPF [facility] Comment on above: Order Comment: Speci men Type: URINE SPECIMENOrdering Facility: [facility] Address: [address] [phone] Performed By: #### L [id number] ####[facility] [id number] [place] [address] [place] Bilirubin Ql (U) Negative Negative [facility] Clarity (Unsp spec) Cloudy Abnormal Clear [facility] Color (U) Yellow Yellow [facility] Epithelial cells LM.HPF (Urine sed) [#/Area] Few [facility] Glucose Test strip (U) [Mass/Vol] Negative Trace, Negative [facility] Hemoglobin Ql (U) Trace Negative, Trace [facility] Ketones Ql (U) Negative Negative, Trace [facility] Leukocyte esterase Test strip Ql (U) 500 Nicholas/uL Abnormal Negative, 25 Nicholas/uL [facility] Nitrite Ql (U) Negative Negative [facility] pH (U) 6.0 [pH] 5.0 - 8.0 [facility] Protein (U) [Mass/Vol] Trace Trace , Negative [facility] RBC LM.HPF (Urine sed) [#/Area] 0-3 /HPF 0-3 /HPF [facility] Specific gravity (U) [Rel density] 1.014 1.005 - 1.030 [facility] Urobilinogen Ql (U) Negative Negative [facility] WBC LM.HPF (Urine sed) [#/Area] /[HPF] Abnormal 0-5 /HPF [facility] Rabia 08-19-2022 CNPN Telephone (UROLMN) ELIZABETH IRVIN ([id number]) 1965 F Date Time Provider Department 08/19/22 [...] Status:Closed by MARISA WEST on 08/19/22 Normal [facility] Bacteria Ur Culton 3 Bacteria identified [...] technique or straight catheterization for???urine???collect ion. Normal [facility] Comment on above: Performed By: #### 6 30-4 ####[facility] [id number] [place] [address] [place] Urinalysis complete panel (U )on 08-18-2022 Bacteria LM.HPF (Urine sed) [#/Area] Rare Abnormal None Seen [facility] Comment on above: Order Comment: Speci men Type: URINE SPECIMENOrdering Facility: [facility] Address: [address] [phone] Performed By: #### 2 4356-8 ####[facility] [id number] [address] [place] Bilirubin Ql (U) Negative Normal Negative [facility] Comment on above: Order Comment: Speci men Type: URINE SPECIMENOrdering Facility: [facility] Address: [address] [place], [place] [address] Performed By: #### 2 4356-8 ####[facility] [id number] [place] [address] [place] Clarity (Unsp spec) Cloudy Abnormal Clear [facility] Comment on above: Order Comment: Speci men Type: URINE SPECIMENOrdering Facility: [facility] Address: [address] [place], [place] [address] Performed By: #### 2 4356-8 ####[facility] [id number] [place] [address] [place] Color (U) Light Yellow Normal Yellow [facility] Comment on above: Order Comment: Speci men Type: URINE SPECIMENOrdering Facility: [facility] Address: [address] [place], [place] [address] Performed By: #### 2 4356-8 ####[facility] [id number] [place] [address] [place] Epithelial cells LM.HPF (Urine sed) [#/Area] Few Normal [facility] Comment on above: Order Comment: Speci men Type: URINE SPECIMENOrdering Facility: [facility] Address: [address] [place], [place] [address] Performed By: #### 2 4356-8 ####[facility] [id number] [place] [address] [place] Glucose Test strip (U) [Mass/Vol] Negative Normal Trace, Negative [facility] Comment on above: Order Comment: Speci men Type: URINE SPECIMENOrdering Facility: [facility] Address: [address] [place], [place] [address] Performed By: #### 2 4356-8 ####[facility] [id number] [place] [address] [place] Hemoglobin Ql (U) 3+ Abnormal Negative, Trace [facility] Comment on above: Order Comment: Speci men Type: URINE SPECIMENOrdering Facility: [facility] Address: [address] [place] [address] Performed By: #### 2 4356-8 ####[facility] [id number] [place] [address] [place] Ketones Ql (U) Negative Normal Trace, Negative [facility] Comment on above: Order Comment: Speci men Type: URINE SPECIMENOrdering Facility: [facility] Address: [address] [place] [address] Performed By: #### 2 4356-8 ####[facility] [id number] [place] [address] [place] Leukocyte esterase Test strip Ql (U) 500 Nicholas/uL Abnormal Negative, 25 Nicholas/uL [facility] Comment on above: Order Comment: Speci men Type: URINE SPECIMENOrdering Facility: [facility] Address: [address] [place] [address] Performed By: #### 2 4356-8 ####[facility] [id number] [place] [address] [place] Nitrite Ql (U) Negative Normal Negative [facility] Comment on above: Order Comment: Speci men Type: URINE SPECIMENOrdering Facility: [facility] Address: [address] [place], [place] [address] Performed By: #### 2 4356-8 ####[facility] [id number] [place] [address] [place] pH (U) 6.0 [pH] Normal 5.0-8.0 [facility] Comment on above: Order Comment: Speci men Type: URINE SPECIMENOrdering Facility: [facility] Address: [address] [place] [address] Performed By: #### 2 4356-8 ####[facility] [id number] [address] STATES [facility] Protein (U) [Mass/Vol] 1+ Abnormal Trace , Negative [facility] Comment on above: Order Comment: Speci men Type: URINE SPECIMENOrdering Facility: [facility] Address: [address] [place] [address] Performed By: #### 2 4356-8 ####[facility] [id number] [place] [address] [place] RBC LM.HPF (Urine sed) [#/Area] /[HPF] Abnormal 0-3 /HPF [facility] Comment on above: Order Comment: Speci men Type: URINE SPECIMENOrdering Facility: [facility] Address: [address] [place] [address] Performed By: #### 2 4356-8 ####[facility] [id number] [address] STATES OF [facility] Specific gravity (U) [Rel density] 1.016 Normal 1.005-1.030 [facility] Comment on above: Order Comment: Speci men Type: URINE SPECIMENOrdering Facility: [facility] Address: [address] [place] [address] Performed By: #### 2 4356-8 ####[facility] [id number] [address] Urobilinogen Ql (U) Negative Normal Negative [facility] Comment on above: Order Comment: Speci men Type: URINE SPECIMENOrdering Facility: [facility] Address: [address] [place] [address] Performed By: #### 2 4356-8 ####[facility] [id number] [place] [address] [place] WBC LM.HPF (Urine sed) [#/Area] /[HPF] Abnormal 0-5 /HPF [facility] Comment on above: Order Comment: Speci men Type: URINE SPECIMENOrdering Facility: [facility] Address: [address] [place] [address] Performed By: #### 2 4356-8 ####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 - DULoxetine (CYMBALTA) 60 mg capsule - rOPINIRole (REQUIP) 1 mg tablet - OZEMPIC 0.25 mg or 0.5 mg(2 mg/1.5 mL) pen Problem List As Of Date: 08/13/2022 (None) Encounter Status:Closed by MARISA WEST on 08/13/22 Normal [facility] NM RENAL FLOW/FXN W PHARMon 07-30-2022 [...] LEFT KIDNEY 9% AND RIGHT KIDNEY 91% Cna Instructor: PSCB Transcribe Date/Time: Jul 30 2022 3:15P Dictated by : SHEEBA KASPER MD This examination was interpreted and the report reviewed and electronically signed by: SHEEBA KASPER MD on Jul 30 2022 3:19PM EST [id number] Normal [facility] NURSING PROGon 07-30-2022 NURSING PROG HNO ID: [id number] Author: Fernanda Koenig RN Service: Radiology Author Type: Registered Nurse Type: Nursing Progress Note Filed: 07/30/2022 2:18 PM Note Text: Patient here for a renal scan with lasix. Patient identified and allergies reviewed. Per order under scanned documents lasix 40 mg IV given at 1411. [facility] Coding Summary.on 07-29-2022 Coding Summary. CD:[id number] G h0bWw+PGhlYWQ+ZT6ASMK qI38urSDmvB2uC5DAEKtI SywgQVBQTElOSyIgbmFtZ N0xdFVsUKKk IC8+JO8yHSXbTdnbhMJto 6Q3gIF8U99uhs3aIEayxA E3MWNqVbGmztswf6mmtNh 6IDcuNmluOyBt EUFoiU20NJX5eO19Zl14p TOtgXDle8ncaEh4HtFsBO YeLXF1zVkxAQlcy5LiEZW qG62hmKCbj3V4 SCJhrApufBAoDuSwzVZ7r U1jOUavrhhwc2pplhuxLi x3ni62rONcl2M8qES8H5A bquE0WOZhoUPj ByesoXSUqV8mfaion1gid icxAqXzKCAmJSx6VVd9TK KpyXaqAhUpDI40RBN4VLK zvqAhJ9XwFHIz pMlyOqP3u1Y3Uv0UN1NLG qtsE2CIBVRPJBsgcDP+PC 74jn86F5RmTocwZxb2VCF oSWP3rLL3cC4n IIJdLQubb4Z6kUV0U9Wni xMeyy3yc7heHPFxYAofF2 8mtFCix3E8JVSwpJY9UMD zfZqjGwLroR02 Oyc+VUDwbQfko5NyRvtex 0scm7sdxZo9TkolLWDvgv UpmShdJVK3m5KvZi9aVNP osWQ7iZH2jJ9k IsTiZiO5YLcwC834JaMnn EFnCcbuV64hT9JurPF+PH MbLtt1PNGpxLemJS3cO2T hZGRpbmctbGVm rNqwAP4vJNDeggwdUKQds E3cGAXrE9z0WvHnVqQ8VO bkW1AbUOYwccpmEe89xP4 gVyTcZfS7WZrx A7TlcgR4FVGlsXEqXOhyH HK6W49fq5M6CTYvUDMwAN A7mET9cB4gvDfzucverXC mdDsgdmVydGlj LEkdLNkvL674EBMenDhaP kNvZGluZyBEYXRlOiAgMD MvMDgvMjAyMzwvdGQ+PHR tAYG9qMalJGKl vJNcROvrZc5nyFayyInuO H4fOXVednrsAAZhmI9kKT IgoIIppAghOY7uYDPrlac mw284VnBlODG1 BZQmcINkO5NqlD3yHzSrQ FXtZAAfX7FiwOChLCigS4 91ZHffAkJ9DJDaqkUuM5X sLWFsaWduOiB0 e0P3Rd9Iu6ZsqtiyV4Oma BKhUrRlSenxYTe8X4FrMv wvdHI+SZ50UMUuFB70SLv 5UGL4rKouGWwf YAAvI0NmzZ8rEvZsHHKqU GRkOyc+PHRhYmxlIHdpZH RoPScxMDAlJyBzdHlsZT0 vRd4rWZCzWGFf vOfybZBeWdKvm9qdRBLdG WskRM5kjYnmA0HrvQJ6HY Qvl3n6Hq20B05xR2IdsOX +QHSsdPZ7dOP7 hH2kDjCfEzJ4GMntY770G iLvqRPsVonwb0lcv1mzcP b2YaY5HRBodaAlsZycQOP 7n3HjWz90C21s IHdpZHRoPSIxNSUiIHZhb Itaxu7cuC7wXh3+PGNvbC J5wTD3dR7iTaNlKiU9OEo iH271FkTltMZm Mbvbo8pyn1eltFj5TsHuF VIhbmOfqBsgERL9b2CvAs 30C4GspMzjt4XaVby5mt1 8sGPcc2U3zGA2 G9IoFIWycufkzZYluJblU R9nEUKjwdmrPPVxjU4qJN TgS2x2KmQdQzI5LEtdS2E fbzS7GVEoqLSl SHGzsPXXiT4vxdbrp3aoz kchAkPcSTUmIXj5WOb0HB OfrEhgYfMzWOG7AuI8YZQ 8lQJujN0ijBud sodoaC7sDvt+GJX2zJQpo JZMCC5jBqnfqSU+PHRkIH J7dSfvEUdxJQRkgO8gNLY xG4a6SgRwQlC2 CYfrD9BvqnF6MURjrHHpL JSsrYMOoI8eihkqz6cddt nnNoYuSYMeKJb8DAu2ZMA saWduOiBsZWZ0 GnX2BVX2vQXguZ2qwVrlo kotvQ4fCai+QmlydGggRG S1TRn2B9DmGau7VBIgjTs tAQ7alEGgDXkd Ge4geVhxySyvDA9nMEGpq rlxy885LaNll2xcZBFayH AzSQffBAS4M87cm3D5UCH bUMIpVQS0gYY4 pP6wjBludtlbiQFtyXycv jKclTbrOXrcCHgbI739XL JvmQvyPjShWEo1O9LbYxh 8JJPwzXnpLS3i mQAzAXgyOy4ozGseeRfkU Z3tNXRqsvcnd590WyDhc3 alYPYicAAmPQxfQOQ2I55 fg1O6JABnNGZn ZLS6bUE9zU4ktMfbwuyib GVmdDsgdmVydGljYWwtYW jxV658UOEqsTlyIyYtgVg 8X1YgTrn9FKBs bYivLM3grOEpPQnhVs7aw ZqikEdrKQ0yGAEzarfvx5 13JeUcl9cwPHRuwLKeFNn iXPT5T42xo9Y1 FKHsTKWnKUB2qGK9bZ2ms GlnbjogbGVmdDsgdmVydG saBFcyVKgiW151GGFfsOq nPlBhdGllbnQg WLhySOh1R7BoSpqyvEJ+P K29QZAoKK81iAKogNVjv8 abnZm0NuNhDHYpHLD4qFn uPSsmm1HyJKDa P02wpOAfs9F3AGSysAngy YQaOkNbjZQ6fM1wXVuxab fcw1kfdehyEnrjm6ovpw5 6nN55T83jTHxk ZHRoPSIzMCUiIHZhbGlnb y7oxP6rGq7+UQYarLP5tC X7wZ3vRCMfFeB4NBywX39 9InRvcCIvPjxj x3ttd9htxIi7QfV8SJJau fIbwVkcODH9j6OmKk87I9 9sIHdpZHRoPSIyMCUiIHZ heRhzil7byD4g Ii8+CPFmrVH0tNF4hT5kC cYzSsM7DYtzY600DcRvoU BaUuboU45oN5FfmJC+PHR vRoo7WTSjrCln HQ3ekNFjQBrcEb0bZEQ4Z oUaAwCwNPtjK4EpZKAdmi odvofviQR5UUIpYRJcyC9 7Sa3wiFnkPNRl lCNDrY2rjavha8tsmrdeP sWqJLFhHWk9OVo6UOTvvA stBnYnWSD8MoX2JHJ9pYG kwX1oyLiunmjr nT7iV9XrWLYghridCd82h W3eJgNsPuA6SLdsBhc+Q1 YDK3BUSbkpL9IXYWydXcx vdGQ+PHRkIHN0 cIlxEMvdZMTjnF6mUUGwE 0o4RqPgLhB7ZKkrN1ReXZ WumstaKq77yV6mCkTaHnG 2KCycP6PaqsO0 OSRffDZpNBpiGRQ9F46jm 5O5KSFsBUJnHLU9lFM6mH 1hbGlnbjogbGVmdDsgdmV ydGljYWwtYWxp N516FIVrkWymLoT6JyA2M bK2OhN9I2YcJei9WLKcnM joRK2mgSWoYYoxKq8guTh rlWjvBV4iNFDg exczWXQiaP2yRWMjsZUie LspUG1gSDWxzekmn193Yb CzLFW1QYQraJLkR9JrnQ0 yOiAjMDAwMDAw Z5XoiBCqJXwtG809NKsfO sP1MQPeqoPuK2YuAYJbwJ tvHyX9l0H7Sy20NsAJUWK yczwvdGQ+PHRk KME7lNfgFSjvSAMwuU7pO UPlG4v9VdWlPgF2CMljM4 CzAITvxuquRo54iB3oGeH iBlL5ZDgpI2Sm plU9FAFhaMEbOQbjBJN1I 75od3Q3WISjQTEqQIH6zV B0hZ6myRpkptrecBNxtLd gdmVydGljYWwt DIieX613AOBqzQleYbUht WFsZTwvdGQ+RTPmQDE8rN hqLFwvYUFuiE7aDRVkT2b 7AzFsNmL0SPmp U7DaLPVejphpRz57kJ6hA sLmBxO3IEliR0YltiO9XO HrlNUpVZeaSOK0J19oe9Y 2UBZhMTByJVZ8 aSB0vH2apSslkicdqLFvl DsgdmVydGljYWwtYWxpZ2 90PDGhfNdkTv84yBPinMb ohvU3V2MxAmnq dHI+AL85BWKyLG72zYYct ERig0hjkUi8MtBlLTPcMD J2gObqIEmpw6PzOLFdT60 qxJFxa1W6IMWq pIbkvGJeGhNgwXH5nK3hB Hixycckd5lwcmeiPzcja7 spxa43lL00S98fOVmuQGT oPSIzMCUiIHZh cGsoaj4dkB2bXp0+PGNvb AJ7mZT1xH5cXzTnRhO3WH yyN663GvYcuIBpTzeea9z ps1ohsKm2UnOq MVPqpsXllCjgKUW1h8WoU u80J35fEQxtJNQbARDoGD FzTUEmsSazmr5vmJ6hNg3 +ST4cf2ayna07 dJ52kYD+NVDjXKC2nVkmG YpwQFXepC3wWCntZqZ2PS IuIeWvfC90iZQjLQlnSi4 toPzqsYyyLL2h MZKdsqmmx457CwWfk5urK KJegDDmZYleDUL3J70hr8 F1TRGmQVKcXBT6yZS9xA0 hbGlnbjogbGVm dDsgdmVydGljYWwtYWxpZ 510ARCpgMwpWbUkdQFcL2 fvjnKFTL4gNsurrAM+PHR hFJO3fCewQRew IGFzkS5sWXBrU2n1AqFiE rH4DDmwV6TexoA9GEOgvM FlWYLajRLXtZ5rhjufr8i vcjogIzAwMDAw PZk8MDh0XQZxaUkpGwUcP DK8QeN6MWB5rTKhlH1ocW kmpxhezM4fYuh+RklOOjw vdGQ+PHRkIHN0 wFazRAatHDHpyB6gPXPaD 7k9PgVqBlZ1HYzqI1Slae N3EPGmxXGsWROnvHZRhE0 plrayu4eucsyw BlDxVFPyUGi5YAa7UYVjh DxyZuAjLCU9QyX6XJM0jD AlcZ7bwTghfycptS1sHmd +TVJOOjwvdGQ+ NDIyLGJ4tRrhGBpeSGLud G7aRETwV9c8TdGxOnX8OX dzU3CupiJ5FRBizGZvGZT wlDNUnL7mgykp h4vumzwzRvZdGNScATn0Z Ik5UINadXyvBrXkLPX0Af P5UFW1uCZydW2luDdgato npB5yZgq+UGF5 WON8PD84ZS64K8CqNhbjb GFibGU+PHRhYmxlIHdpZH RoPScxMDAlJyBzdHlsZT0 eSv5hBXCyFTCl bGxh (more content not included)... Normal [facility] Physician Orderon 07-28-2022 Physician Order [id number] .[id number]:127 Normal [facility] Consultation Noteon 07-17-19 23 Consultation Note [id number]#1 .00CD:127 Normal [facility] 25(OH)D3 [facility] 2022 25-hydroxyvitamin D3 [Mass/Vol] 41.8 ng/mL Normal 31.0-80.0 [facility] Comment on above: Order Comment: Speci men Type: BLOOD SPECIMENOrdering Facility: [facility] Address: [address] [place] [address] Result Comment: Clas sification of 25 OH Vitamin D status: Deficiency/Insufficiency: < or = 30 ng/ml. Sufficiency/Optimal Levels: 31-80 ng/mL Toxicity: > 100 ng/mL. Test performed by chemiluminescent immunoassay. Performed By: #### 1 989-3 ####[facility] [id number] [place] [address] [place] Bacteria Ur Culton [...] , Intermediate >32 , Resistant >64 Abnormal [facility] Comment on above: Performed By: #### 6 30-4 ####[facility] [id number] [place] [address] [place] CBC W Auto Differential pane l (Bld)on 07-14-2022 Basophils (Bld) [#/Vol] 0.03 10*3/uL Normal <0.11 [facility] Comment on above: Order Comment: Speci men Type: BLOOD SPECIMENOrdering Facility: [facility] Address: [address] Performed By: #### 5 7021-8 ####[facility] [id number] [address] [place] Basophils/100 WBC (Bld) 0.6 % Normal [facility] Comment on above: Order Comment: Speci men Type: BLOOD SPECIMENOrdering Facility: [facility] Address: [address] [place] [address] Performed By: #### 5 7021-8 ####[facility] [id number] [place] [address] [place] Differential cell count method Nom (Bld) Auto Normal [facility] Comment on above: Order Comment: Speci men Type: BLOOD SPECIMENOrdering Facility: [facility] Address: [address] [place], [place] [address] Performed By: #### 5 7021-8 ####[facility] [id number] [place] [address] [place] Eosinophils (Bld) [#/Vol] 0.18 10*3/uL Normal <0.46 [facility] Comment on above: Order Comment: Speci men Type: BLOOD SPECIMENOrdering Facility: [facility] Address: [address] Performed By: #### 5 7021-8 ####[facility] [id number] [place] [address] [place] Eosinophils/100 WBC (Bld) 3.7 % Normal [facility] Comment on above: Order Comment: Speci men Type: BLOOD SPECIMENOrdering Facility: [facility] Address: [address] [place], [place] [address] Performed By: #### 5 7021-8 ####[facility] [id number] [place] [address] [place] Erythrocyte distribution width (RBC) [Ratio] 15.7 % High 11.5-15.0 [facility] Comment on above: Order Comment: Speci men Type: BLOOD SPECIMENOrdering Facility: [facility] Address: [address] [place] [address] Performed By: #### 5 7021-8 ####[facility] [id number] [place] [address] [place] Hematocrit (Bld) [Volume fraction] 31.3 % Low 36.0-46.0 [facility] Comment on above: Order Comment: Speci men Type: BLOOD SPECIMENOrdering Facility: [facility] Address: [address] [place] [address] Performed By: #### 5 7021-8 ####[facility] [id number] [place] [address] [place] Hemoglobin (Bld) [Mass/Vol] 10.1 g/dL Low 11.5-15.5 [facility] Comment on above: Order Comment: Speci men Type: BLOOD SPECIMENOrdering Facility: [facility] Address: [address] [place] [address] Performed By: #### 5 7021-8 ####[facility] [id number] [place] [address] [place] Immature granulocytes (Bld) [#/Vol] 10*3/uL Normal <0.10 [facility] Comment on above: Order Comment: Speci men Type: BLOOD SPECIMENOrdering Facility: [facility] Address: [address] [place], [place] [address] Performed By: #### 5 7021-8 ####[facility] [id number] [place] [address] [place] Immature granulocytes/100 WBC (Bld) 0.2 % Normal [facility] Comment on above: Order Comment: Speci men Type: BLOOD SPECIMENOrdering Facility: [facility] Address: [address] Performed By: #### 5 7021-8 ####[facility] [id number] [place] [address] [place] Lymphocytes (Bld) [#/Vol] 1.77 10*3/uL Normal 1.00-4.00 [facility] Comment on above: Order Comment: Speci men Type: BLOOD SPECIMENOrdering Facility: [facility] Address: [address] [place], [place] [address] Performed By: #### 5 7021-8 ####[facility] [id number] [place] [address] [place] Lymphocytes/100 WBC (Bld) 36.0 % Normal [facility] Comment on above: Order Comment: Speci men Type: BLOOD SPECIMENOrdering Facility: [facility] Address: [address] [place], [place] [address] Performed By: #### 5 7021-8 ####[facility] [id number] [place] [address] [place] MCH (RBC) [Entitic mass] 27.8 pg Normal 26.0-34.0 [facility] Comment on above: Order Comment: Speci men Type: BLOOD SPECIMENOrdering Facility: [facility] Address: [address] Performed By: #### 5 7021-8 ####[facility] [id number] [place] [address] [place] MCHC (RBC) [Mass/Vol] 32.3 g/dL Normal 30.5-36.0 [facility] Comment on above: Order Comment: Speci men Type: BLOOD SPECIMENOrdering Facility: [facility] Address: [address] [place], [place] [address] Performed By: #### 5 7021-8 ####[facility] [id number] [place] [address] [place] MCV (RBC) [Entitic vol] 86.2 fL Normal 80.0-100.0 [facility] Comment on above: Order Comment: Speci men Type: BLOOD SPECIMENOrdering Facility: [facility] Address: [address] [place], [place] [address] Performed By: #### 5 7021-8 ####[facility] LABIA [id number] [place] [address] [place] Monocytes (Bld) [#/Vol] 0.39 10*3/uL Normal <0.87 [facility] Comment on above: Order Comment: Speci men Type: BLOOD SPECIMENOrdering Facility: [facility] Address: [address] [place], [place] [address] Performed By: #### 5 7021-8 ####[facility] LAB[facility] [id number] [place] [address] [place] Monocytes/100 WBC (Bld) 7.9 % Normal [facility] Comment on above: Order Comment: Speci men Type: BLOOD SPECIMENOrdering Facility: [facility] Address: [address] [place], [place] [address] Performed By: #### 5 7021-8 ####[facility] LAB[facility] [id number] [place] [address] [place] Neutrophils (Bld) [#/Vol] 2.53 10*3/uL Normal 1.45-7.50 [facility] Comment on above: Order Comment: Speci men Type: BLOOD SPECIMENOrdering Facility: [facility] Address: [address] [place], [place] [address] Performed By: #### 5 7021-8 ####[facility] [id number] [place] [address] [place] Neutrophils/100 WBC (Bld) 51.6 % Normal [facility] Comment on above: Order Comment: Speci men Type: BLOOD SPECIMENOrdering Facility: [facility] Address: [address] [place], [place] [address] Performed By: #### 5 7021-8 ####[facility] [id number] [place] [address] [place] Nucleated RBC (Bld) [#/Vol] 10*3/uL Normal <0.01 [facility] Comment on above: Order Comment: Speci men Type: BLOOD SPECIMENOrdering Facility: [facility] Address: [address] [place], [place] [address] Performed By: #### 5 7021-8 ####[facility] [id number] [place] [address] [place] Nucleated RBC/100 WBC (Bld) [Ratio] 0.0 /100 WBC Normal [facility] Comment on above: Order Comment: Speci men Type: BLOOD SPECIMENOrdering Facility: [facility] Address: [address] [place], [place] [address] Performed By: #### 5 7021-8 ####[facility] [id number] [place] [address] [place] Platelet mean volume (Bld) [Entitic vol] 9.4 fL Normal 9.0-12.7 [facility] Comment on above: Order Comment: Speci men Type: BLOOD SPECIMENOrdering Facility: [facility] Address: [address] [place] [address] Performed By: #### 5 7021-8 ####[facility] [id number] [place] [address] [place] Platelets (Bld) [#/Vol] 304 10*3/uL Normal 150-400 [facility] Comment on above: Order Comment: Speci men Type: BLOOD SPECIMENOrdering Facility: [facility] Address: [address] [place] [address] Performed By: #### 5 7021-8 ####[facility] [id number] [place] [address] [place] RBC (Bld) [#/Vol] 3.63 10*6/uL Low 3.90-5.20 [facility] Comment on above: Order Comment: Speci men Type: BLOOD SPECIMENOrdering Facility: [facility] Address: [address] [place] [address] Performed By: #### 5 7021-8 ####[facility] LABIA [id number] [address] [place] WBC (Bld) [#/Vol] 4.91 10*3/uL Normal 3.70-11.00 [facility] Comment on above: Order Comment: Speci men Type: BLOOD SPECIMENOrdering Facility: [facility] Address: [address] [place] [address] Performed By: #### 5 7021-8 ####[facility] [id number] [place] [address] [place] Basophils (Bld) [#/Vol] 0.03 10*3/uL <0.11 k/uL [facility] Basophils/100 WBC (Bld) 0.6 % [facility] Differential cell count method Nom (Bld) Auto [facility] Eosinophils (Bld) [#/Vol] 0.18 10*3/uL <0.46 k/uL [facility] Eosinophils/100 WBC (Bld) 3.7 % [facility] Erythrocyte distribution width (RBC) [Ratio] 15.7 % High 11.5 - 15.0 % [facility] Hematocrit (Bld) [Volume fraction] 31.3 % Low 36.0 - 46.0 % [facility] Hemoglobin (Bld) [Mass/Vol] 10.1 g/dL Low 11.5 - 15.5 g/dL [facility] Immature granulocytes (Bld) [#/Vol] <0.10 k/uL [facility] Immature granulocytes/100 WBC (Bld) 0.2 % [facility] Lymphocytes (Bld) [#/Vol] 1.77 10*3/uL 1.00 - 4.00 k/uL [facility] Lymphocytes/100 WBC (Bld) 36.0 % [facility] MCH (RBC) [Entitic mass] 27.8 pg 26.0 - 34.0 pg [facility] MCHC (RBC) [Mass/Vol] 32.3 g/dL 30.5 - 36.0 g/dL [facility] MCV (RBC) [Entitic vol] 86.2 fL 80.0 - 100.0 fL [facility] Monocytes (Bld) [#/Vol] 0.39 10*3/uL <0.87 k/uL [facility] Monocytes/100 WBC (Bld) 7.9 % [facility] Neutrophils (Bld) [#/Vol] 2.53 10*3/uL 1.45 - 7.50 k/uL [facility] Neutrophils/100 WBC (Bld) 51.6 % [facility] Nucleated RBC (Bld) [#/Vol] <0.01 k/uL [facility] Nucleated RBC/100 WBC (Bld) [Ratio] 0.0 /100 WBC [facility] Platelet mean volume (Bld) [Entitic vol] 9.4 fL 9.0 - 12.7 fL [facility] Platelets (Bld) [#/Vol] 304 10*3/uL 150 - 400 k/uL [facility] RBC (Bld) [#/Vol] 3.63 10*6/uL Low 3.90 - 5.2 0 m/uL [facility] WBC (Bld) [#/Vol] 4.91 10*3/uL 3.70 - 11. 00 k/uL [facility] CNOVon 07-14-2022 CNOV Office Visit (UROLMN ) ELIZABETH IRVIN ([id number]) 1965 F Date Time Provider Department 07/14/22 [...] based on size, location, hounsfield units and habg-jp-sxohk distance: 0% 3. Ureteroscopy - risks of [...] with more than 50% of the total mowr-eu-bxry time of the visit devoted to patient counseling/coordinati on of care. 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] Other Visit Diagnoses:Hydronephro sis with urinary obstruction due to ureteral calculus [N13.2] Left flank pain [R10.9] Left renal atrophy [N26.1] Order(s):NM RENAL FLOW/FXN W PHARM [4426022] Order #: [id number] FUTURE CBC + DIFF [SQCBCDIF] Order #: [id number] FUTURE COMP METABOLIC PANEL [SQCMP] Order #: [id number] FUTURE PTH INTACT BLD [SQPTHI] Order #: [id number] FUTURE VITAMIN D 25 HYDROXY [SQVITD] Order #: [id number] FUTURE URIC ACID BLOOD [SQURIC] Order #: [id number] FUTURE CALCIUM IONIZED BLOOD [SQICA] Order #: [id number] FUTURE TYPE AND SCREEN,30 DAY [YLYYRK90] Order #: [id number] FUTURE CONFIRM BLOOD TYPE [SQCONABO] Order #: [id number] FUTURE Prescriptions as of 07/15/2022 - lisinopril (ZESTRIL, PRINIVIL) 20 mg tablet Take by mouth. - DULoxetine (CYMBALTA) 60 mg capsule - rOPINIRole (REQUIP) 1 mg tablet - OZEMPIC 0.25 mg or 0.5 mg(2 mg/1.5 mL) pen Problem List As Of Date: 07/14/2022 (None) Disposition: Return for Nuclear re (more content not included)... Normal [facility] CONFIRM BLOOD TYPEon 023 ABO O [facility] Rh Nom (Bld) Positive [facility] ABO O Normal [facility] Comment on above: Order Comment: Speci men Type: BLOOD SPECIMEN [facility] Address: [address] [place] [address] Performed By: #### T SCR30 #### [facility] MAIN BLOOD [facility] [id number] [address] [place] [address] [place] Rh Nom (Bld) Positive Normal [facility] Comment on above: Order Comment: Speci men Type: BLOOD SPECIMEN [facility] Address: [address] [place] [address] Performed By: #### T SCR30 #### CC MAIN BLOOD BANK [facility] [id number] [address] [place] [address] [place] Comprehensive metabolic 2000 panelon 07-14-2022 Albumin [Mass/Vol] 3.7 g/dL Low 3.9 - 4.9 g/dL [facility] ALP [Catalytic activity/Vol] 65 U/L 34 - 123 U/L [facility] ALT [Catalytic activity/Vol] 9 U/L 7 - 38 U/L [facility] Anion gap [Moles/Vol] 12 mmol/L 9 - 18 mmol/L [facility] AST [Catalytic activity/Vol] 17 U/L 13 - 35 U/L [facility] Bilirubin [Mass/Vol] 0.3 mg/dL 0.2 - 1 .3 mg/dL [facility] Calcium [Mass/Vol] 9.1 mg/dL 8.5 - 10. 2 mg/dL [facility] Chloride [Moles/Vol] 111 mmol/L High 97 - 10 5 mmol/L [facility] CO2 [Moles/Vol] 19 mmol/L Low 22 - 30 mmol/L [facility] Creatinine [Mass/Vol] 2.85 mg/dL High 0.58 - 0.96 mg/dL [facility] Estimated Glomerular Filtration Rate 19 mL/min/1.73m Low >=60 mL/min/1.73m [facility] Glucose [Mass/Vol] 80 mg/dL 74 - 99 mg/dL [facility] Potassium [Moles/Vol] 5.0 mmol/L 3.7 - 5.1 mmol/L [facility] Protein [Mass/Vol] 6.1 g/dL Low 6.3 - 8.0 g/dL [facility] Sodium [Moles/Vol] 142 mmol/L 136 - 144 mmol/L [facility] Urea nitrogen [Mass/Vol] 28 mg/dL High 7 - 21 mg/dL [facility] Albumin [Mass/Vol] 3.7 g/dL Low 3.9-4.9 [facility] Comment on above: Order Comment: Speci men Type: BLOOD SPECIMENOrdering Facility: [facility] Address: [address] [address] Performed By: #### 2 4323-8, 27305-31, 3083-05 ####[facility]CLIA [id number] [address] OF [facility] ALP [Catalytic activity/Vol] 65 U/L Normal 34-123 [facility] Comment on above: Order Comment: Speci men Type: BLOOD SPECIMENOrdering Facility: [facility] Address: [address] [address] Performed By: #### 2 4323-8, 273-8, 3083-1 ####[facility]CLIA [id number] [place] [address] [place] ALT [Catalytic activity/Vol] 9 U/L Normal 7-38 [facility] Comment on above: Order Comment: Speci men Type: BLOOD SPECIMENOrdering Facility: [facility] Address: [address] [place] [address] Performed By: #### 2 4323-8, 2731-8, 3083-1 ####[facility] [id number] [place] [address] [place] Anion gap [Moles/Vol] 12 mmol/L Normal 9-18 [facility] Comment on above: Order Comment: Speci men Type: BLOOD SPECIMENOrdering Facility: [facility] Address: [address] [place] [address] Performed By: #### 2 4323-8, 273-8, 3083-1 ####[facility]CL[facility] [id number] [address] [place] AST [Catalytic activity/Vol] 17 U/L Normal 13-35 [facility] Comment on above: Order Comment: Speci men Type: BLOOD SPECIMENOrdering Facility: [facility] Address: [address] [place] [address] Performed By: #### 2 4323-8, 273-8, 3083-1 ####[facility] [id number] [address] [place] Bilirubin [Mass/Vol] 0.3 mg/dL Normal 0.2-1.3 [facility] Comment on above: Order Comment: Speci men Type: BLOOD SPECIMENOrdering Facility: [facility] Address: [address] [place] [address] Performed By: #### 2 4323-8, 273-8, 3083-1 ####[facility]CLIA [id number] [id number] [address] [place] Calcium [Mass/Vol] 9.1 mg/dL Normal 8.5-10.2 [facility] Comment on above: Order Comment: Speci men Type: BLOOD SPECIMENOrdering Facility: [facility] Address: [address] [place] [address] Performed By: #### 2 4323-8, 2731-8, 3083-1 ####[facility] [id number] [place] [address] [place] Chloride [Moles/Vol] 111 mmol/L High 97-105 [facility] Comment on above: Order Comment: Speci men Type: BLOOD SPECIMENOrdering Facility: [facility] Address: [address] [place] [address] Performed By: #### 2 4323-8, 2730-8, 3083-1 ####[facility]CL[facility] [id number] [place] [address] [place] CO2 [Moles/Vol] 19 mmol/L Low 22-30 [facility] Comment on above: Order Comment: Speci men Type: BLOOD SPECIMENOrdering Facility: [facility] Address: [address] [place] [address] Performed By: #### 2 4323-8, 2730-8, 3083-1 ####[facility]CL[facility] [id number] [place] [address] [place] Creatinine [Mass/Vol] 2.85 mg/dL High 0.58-0.96 [facility] Comment on above: Order Comment: Speci men Type: BLOOD SPECIMENOrdering Facility: [facility] Address: [address] [place] [address] Performed By: #### 2 4323-8, 2730-8, 4-1 ####[facility]CL[facility] [id number] [place] [address] [place] ESTIMATED GLOMERULAR FILTRATION RATE 19 mL/min/1.73m??? Low >=60 [facility] Comment on above: Order Comment: Specsadiq jeff Type: BLOOD SPECIMENOrdering Facility: [facility] Address: [place] [address] Result Comment: Reema mated Glomerular Filtration Rate [...] Performed By: #### 2 4323-8, 2730-8, 3083- ####[facility] LABIA [id number] [address] [place] [id number] [place] Glucose [Mass/Vol] 80 mg/dL Normal 74-99 [facility] Comment on above: Order Comment: Tim jeff Type: BLOOD SPECIMENOrdering Facility: [facility] Address: [place] [address] Result Comment: The [place] Diabetes Association (ADA) provides guidance for cutoff [...] Standards of Medical Care in Diabetes 2016, [place] Diabetes Association. Diabetes Care. 2016.39(Suppl 1). Performed By: #### 2 4323-8, 1-8, 3083-1 ####[facility] [id number] [address] [address] [place] Potassium [Moles/Vol] 5.0 mmol/L Normal 3.7-5.1 [facility] Comment on above: Order Comment: Speci men Type: BLOOD SPECIMENOrdering Facility: [facility] Address: [address] [address] Performed By: #### 2 4323-8, 8, 3083-05 ####[facility] [id number] [place] [address] [place] Protein [Mass/Vol] 6.1 g/dL Low 6.3-8.0 [facility] Comment on above: Order Comment: Speci men Type: BLOOD SPECIMENOrdering Facility: [facility] Address: [address] [address] Performed By: #### 2 4323-8, 8, 3083-05 ####[facility] [id number] [place] [address] [place] Sodium [Moles/Vol] 142 mmol/L Normal 136-144 [facility] Comment on above: Order Comment: Speci men Type: BLOOD SPECIMENOrdering Facility: [facility] Address: [address] [address] Performed By: #### 2 4323-8, 2730-12, 3083-05 ####[facility] [id number] [place] [address] [place] Urea nitrogen [Mass/Vol] 28 mg/dL High 7-21 [facility] Comment on above: Order Comment: Speci men Type: BLOOD SPECIMENOrdering Facility: [facility] Address: [address] Performed By: #### 2 4323-8, 8, 3083-05 ####[facility] [id number] [place] [address] [place] PTH INTACT BLDon 07-14-2022 Parathyrin.intact [Mass/Vol] 125 pg/mL High 15 - 65 pg/mL [facility] PTH-Intact SerPl-mCncon 02-2 1-2023 Parathyrin.intact [Mass/Vol] 125 pg/mL High 15-65 [facility] Comment on above: Order Comment: Speci men Type: BLOOD SPECIMENOrdering Facility: [facility] Address: [address] [place] [address] Performed By: #### 2 4323-8, 2731-8, 3084-1 ####[facility] [id number] [address] [place] TYPE AND SCREEN,30 DAYon ABO O [facility] HIstorical Ab Scr Status Negative [facility] Rh Nom (Bld) Positive [facility] ABO O Normal [facility] Comment on above: Order Comment: Speci men Type: BLOOD SPECIMEN [facility] Address: [address] [place] [address] Performed By: #### T [id number] #### [facility] CLIA [id number] [address] OF [facility] HISTORICAL AB SCR STATUS Negative Normal [facility] Comment on above: Order Comment: Speci men Type: BLOOD SPECIMEN [facility] Address: [address] [place] [address] Performed By: #### T [id number] #### [facility] CLIA [id number] [address] OF [facility] Rh Nom (Bld) Positive Normal [facility] Comment on above: Order Comment: Speci men Type: BLOOD SPECIMEN [facility] Address: [address] [place] [address] Performed By: #### T [id number] #### [facility] CLIA [id number] [address] [place] URIC ACID BLOODon 07-14-2022 Urate [Mass/Vol] 6.7 mg/dL High 2.5 - 6.6 mg/dL [facility] URINALYSIS, REFLEX MICROSCOP ICon 07-14-2022 Bilirubin Ql (U) Negative Normal Negative [facility] Comment on above: Order Comment: Speci men Type: URINE SPECIMENOrdering Facility: [facility] Address: [address] Performed By: #### L [id number] ####[facility] [id number] [place] [address] [place] Clarity (Unsp spec) Cloudy Abnormal Clear [facility] Comment on above: Order Comment: Speci men Type: URINE SPECIMENOrdering Facility: [facility] Address: [address] [address] Performed By: #### L [id number] ####[facility] [id number] [place] [address] [place] Color (U) Light [place] Abnormal Yellow [facility] Comment on above: Order Comment: Speci men Type: URINE SPECIMENOrdering Facility: [facility] Address: [address] Performed By: #### L [id number] ####[facility] [id number] [place] [address] [place] Epithelial cells LM.HPF (Urine sed) [#/Area] Few Normal [facility] Comment on above: Order Comment: Speci men Type: URINE SPECIMENOrdering Facility: [facility] Address: [address] Performed By: #### L [id number] ####[facility] [id number] [place] [address] [place] Glucose Test strip (U) [Mass/Vol] Negative Normal Trace, Negative [facility] Comment on above: Order Comment: Speci men Type: URINE SPECIMENOrdering Facility: [facility] Address: [address] [address] Performed By: #### L [id number] ####[facility] [id number] [place] [address] [place] Hemoglobin Ql (U) 2+ Abnormal Negative, Trace [facility] Comment on above: Order Comment: Speci men Type: URINE SPECIMENOrdering Facility: [facility] Address: [address] [place] [address] Performed By: #### L [id number] ####[facility] [id number] [place] [address] [place] Hyaline casts (Urine sed) [#/Area] 1-3 /LPF Abnormal 0 /LPF [facility] Comment on above: Order Comment: Speci men Type: URINE SPECIMENOrdering Facility: [facility] Address: [address] [place] [address] Performed By: #### L [id number] ####[facility] [id number] [place] [address] [place] Ketones Ql (U) Negative Normal Negative, Trace [facility] Comment on above: Order Comment: Speci men Type: URINE SPECIMENOrdering Facility: [facility] Address: [address] [place] [address] Performed By: #### L [id number] ####[facility] [id number] [place] [address] [place] Leukocyte esterase Test strip Ql (U) 500 Nicholas/uL Abnormal Negative, 25 Nicholas/uL [facility] Comment on above: Order Comment: Speci men Type: URINE SPECIMENOrdering Facility: [facility] Address: [address] [place] [address] Performed By: #### L [id number] ####[facility] [id number] [place] [address] [place] Nitrite Ql (U) Negative Normal Negative [facility] Comment on above: Order Comment: Speci men Type: URINE SPECIMENOrdering Facility: [facility] Address: [address] [place] [address] Performed By: #### L [id number] ####[facility] [id number] [address] STATES [facility] pH (U) 5.5 [pH] Normal 5.0-8.0 [facility] Comment on above: Order Comment: Speci men Type: URINE SPECIMENOrdering Facility: [facility] Address: [address] [place] [address] Performed By: #### L [id number] ####[facility] [id number] [place] [address] [place] Protein (U) [Mass/Vol] 1+ Abnormal Trace , Negative [facility] Comment on above: Order Comment: Speci men Type: URINE SPECIMENOrdering Facility: [facility] Address: [address] [place] [address] Performed By: #### L [id number] ####[facility] [id number] [address] [place] RBC LM.HPF (Urine sed) [#/Area] /[HPF] Abnormal 0-3 /HPF [facility] Comment on above: Order Comment: Speci men Type: URINE SPECIMENOrdering Facility: [facility] Address: [address] [place], [place] [address] Performed By: #### L [id number] ####[facility] [id number] [address] [place] Specific gravity (U) [Rel density] 1.016 Normal 1.005-1.030 [facility] Comment on above: Order Comment: Speci men Type: URINE SPECIMENOrdering Facility: [facility] Address: [address] [place], [place] [address] Performed By: #### L [id number] ####[facility] [id number] [address] [id number] [address] [place] Urobilinogen Ql (U) Negative Normal Negative [facility] Comment on above: Order Comment: Speci men Type: URINE SPECIMENOrdering Facility: [facility] Address: [address] [place] [address] Performed By: #### L [id number] ####[facility] [id number] [place] [address] [place] WBC LM.HPF (Urine sed) [#/Area] /[HPF] Abnormal 0-5 /HPF [facility] Comment on above: Order Comment: Speci men Type: URINE SPECIMENOrdering Facility: [facility] Address: [address] [place] [address] Performed By: #### L [id number] ####[facility] [id number] [place] [address] [place] Urate SerPl-mCncon 3 Urate [Mass/Vol] 6.7 mg/dL High 2.5-6.6 [facility] Comment on above: Order Comment: Speci men Type: BLOOD SPECIMENOrdering Facility: [facility] Address: [address] [place] [address] Performed By: #### 2 4323-8, 2731-8, 3084-1 ####[facility] [id number] [place] [address] [place] VITAMIN D 25 HYDROXYon 07-14 25-hydroxyvitamin D3 [Mass/Vol] 41.8 ng/mL 31.0 - 80.0 ng/mL [facility] Patient Educationon 07-07-19 Patient Education Urology Dietary [...] Rhubarb. ? Beets. ? Potato chips and turkmen fries. ? Nuts. ? If you regularly take a diuretic medicine, make sure to eat at least 1?2 fruits or vegetables high in potassium each day. These include: ? Avocado. ? Banana. ? [place], prune, carrot, or tomato juice. ? Baked [...] Salad dr (more content not included)... Normal [facility] RAD - MISCon 07-07-2022 RAD - MIS [id number]#1 .00CD:127 Normal [facility] Urology Office/Clinic Noteon 07-07-2022 Urology Office/Clinic Note [...] to Dr. Odonnell. -pt to go to [facility] to get CD for CT scan [...] refer her to Dr. Odonnell at the [facility]. She also has a very large stone in the right kidney which is approaching 2 cm and will most likely need a PCNL on that side as well. I have instructed her to picker packer her CAT scan and retrograde pyelogram onto a CD so she can take thi (more content not included)... Normal [facility] Comment on above: Result Comment: Elec tronically Signed By: Chalo BLUM MD\.br\Date and Time Signed: 07/07/22 10:09 EST\.br\Electronically Co-Signed By: Jennifer Hamilton\.br\Date and Time Co-Signed: 07/07/22 10:02 EST\.br\Electronically Co-Signed By: Jennifer Hamilton\.br\Date and Time Co-Signed: 07/07/22 10:03 EST XR KUBon 07-06-2022 XR KUB [facility] [place] [address] XRay Report Signed Patient: Elizabeth Irvin MR#: [id number] : 1965 Acct:[id number] Age/Sex: 56 / F ADM Date: 07/06/22 Loc: XD Room: Type: [facility] Attending Dr: Chalo Blum MD Copies [...] Michael Cheung M.D.07/06/2022 3:03 PM Dictation Location: [place] [address] Transcribed By: [facility] 07/06/22 1503 Dictated By: Michael Cheung DO 07/06/22 1500 Signed By: 07/06/22 1503 [facility] IntraOperative Documentson 0 06-23-2022 IntraOperative Documents [id number]# 1.00CD:127 Normal [facility] Postoperative Documentson Postoperative Documents [id number]# 1.00CD:127 Normal [facility] Coding Summary.on 06-22-2022 Coding Summary. CD:[id number] G h0bWw+PGhlYWQ+GD7EPDV eW43jkWHcyX2FW0pILO3S HURGUPHDNR1WCH7piRT2N AvnY4WxrkKg XaworAIeKF02QKb4UJF6g WwkZLdpgY2maGKoH9s3Pg SuMW42aT41RTzoADRaGoR 3LjZpbjsgbWFy K8tjWkHlmUSxMag+PHRhY mxlIHdpZHRoPScxMDAlJy BznVkuIC1eVu0aKTDhVST vbGxhcHNlOiBj a0cnTJMtFEdmDE5vfEfzT 2WueVJ1NYMgj8v6Hf67lL I+HKZpNLK1cAspSJbnc10 7RuMjm9ogQSA4 lBNpBLakUOF6F79ft6S1L QYuZXJcWSA0zIF4wU2naH evwaueN4XjfZDrBdB6BFE 6gFFydL0yuFva gvylhE8xJqr+D68BXO8CQ KTNQS3OKjw3X0HyPjlwhW I+GV15YDEcJL44qGEuuMU eb2oggNs5NvCu UFPtNYF8bTxeYKonv5HaS FOdO96ajSXis9R8XVVolR bmtOToPzBqxIG3mG0sFIn wotknu6xypdwk Efxxy5rapp97dW01L81dZ JhaAYUhKLB6HSCmGKNaiB yung1dwO3dWj4+NPapa0j qg7kemKj7IyCi XSZoqeQnqHehZJW4m3OyS b29J0VtpKapt6AcFkd8fj 16vHBzz3I2aUQ6TRogIXS tgQ6eWVyeUuL5 DRUlKjBquR59bMRjOJmzX g5sgGqmdRskJB7nGXErsv kkGWKlqA1uHUQtrMJgrGe iUX3mROUzuona t414AkRpTZM0QIYnnBEbD 3AatG8wCdKvYHOzXDTbP2 DktJOhGVgbU027ILfnOcH 5MBMagjZqT4Cs DTNnuQlgTgG9a9W4Ov9Wh 1UshhdaGXB9RDdtPLJaTz ExIdXlHlI0N3FwRsb8FRA ybSsbXN2oP3Px LPChldmxtjxdbUF3DHCgF ZOguN43bVAwTHmlTk1ub3 S7a399CTTeVVTatG80Cr4 udDogMTBwdCBU cG8glshcq2nihrvlRrFyZ OOwNYb3LCo0OFQwnAiwCx UsJUT6ZwM0MJV0fGMemQ5 xvLtffjuloR8b Oyc+N53ndY2aFKF4AJX9u nczMKFeziNjOD15XD58U8 RyPjwvdGFibGU+PGRpdiB hbIafNX0iNwEe p1ost7UsHOwnM1UqRDPwW RerIdj3GFCrBHB6qHP9pE 0oGKZlZQeqz4X9bQK7T0L kgvWiid1ku5xk YNQrXVerZ73yvMGvz1E3X YPtgRX8LUOcfIymBsJwdT 93Oyc+DTKsrNreu6BeAwb bu9zlm6zaaPl7 OoQzGHVlkrLgkCrlKKV4h 1IqWr47W11zZMxiWBHrJL EwPVYxGSBjdPgmfq6btC3 wIi8+PGNvbCB3 eOC6wF4xALOqMsR4VUfpY 556FiLrcOVbUjhok1hvk6 ucxJk9HkFnNCQjibBdbKj gVDO9f2LjWh71 G53hSWrxQNFjFYGlOUInE PLraCdsfd0obH6dDo6+PC 2om4hbqo31fT92oMB+PHR vPBN0hErfAZdr DAKolE2cXZblXqK5JVFyP nJioD75rXTrUNiwQb4ucK hdqEetTW6mXCZhdioqg66 3HaOav1wcLKXv rLCsGNnaJKZ9D02na2D5S DSaALHfJML0gLP3mU4txJ lnbjogbGVmdDsgdmVydGl tBQepVYrwX843 IHRvcDsnPlBhdGllbnQgT bQcVPt1B3TcIzr5GLUybK ckFW5azPOuTMskAi6zsDi lxKypGP2gGOXr vafpo041OwVbm9scIQOgn KRsXRrmGMG1T25ed4M7JQ IaNPGiANS8jSZ1xC4taCj nbjogbGVmdDsg iqGqhKkbTYqvQNgvT429X HRvcDsnPkJpcnRoIERhdG J2KP50OY87wBGgz3H0lCL 7Z6DlGADdaihw mspyhWS9CGFsXQHaaD75L n6fjPrwTt3oKOFbLSE7SH YjtEXdP4GbxJ7hIsYmPSX oCJXyF3GbfLNn KOacA978AEpeIvR4WUIkw rBxD8HcLXYxyVhmPyV4i1 V8Ad6DX1B9TE17XA77lST ex0Q9lOQ1P2Jv BYDjkltgnnrmmJK9ESRuD GWasI38Zg1kzTazQv2hOG OdOXK9XWIiaOYxY1VrnY5 yOiAjMDAwMDAw D7OjpNNyZYznC046FGyxY pV6SYZmftMqY2VlBRXvhP quQxY1k8T7Af8KXKw9EW2 5CF82gYGtj1W0 wYW6G0ZsUPSrsurdmdiou NB8OXFgUMKlbM67Hs9kxK xcIw9lIINrPMG2QUUloYU zB3RbuH1fDvDs YXUqRIWsU8CxjDJoEPpeP 081NBwlEwO9CNGwavRqS1 GtWVYhsQdlBcJ8v9X6Bt8 CQBXcJH43WDJ4 xDG5VF01KZ24O7GmJczae GFibGU+PHRhYmxlIHdpZH RoPScxMDAlJyBzdHlsZT0 hEu0bPFQwDVZh jFhebJKqHfHbm0osXNDoE DiiVB4vvDxwP3LvmSW0WY Jlp6y6Ny60U66iQ3ChnMO +HZZcjJA8hMG0 yH2gKwHjHmF2NXybP446E kIpvUWhPqcgw2vwk4gljW u7XkC2FDOfjxRdwXulBZQ 2j6AtWp61K46r IHdpZHRoPSIxNSUiIHZhb Xwtyj7hnB2dNp1+PGNvbC H1yDR4jU4wLoWjEaV3LOs xQ177GpBdqMWj Gazzb0wdq3gvlKi9PwUjQ UDkakPhzQlvJCE5i2NeIg 03N9JzsRwnp1OsLxh5mg6 6iAIsz9K1tAP5 K1IbERZxvipnpGFxhYuiL A2iWHTeipzkDEYlcB9rYU GqY4d8PkLfQeC6WZwoU9S ranZ0UWOcsRQj NYhbCOJ3U62cu7N5QVVqX DMvBXK2kLE6dU7pyBqwqs ogbGVmdDsgdmVydGljYWw jQHqaU952KYJt wCpbXMOpkF2rMPLmmTLdo OgkXU6oQAYcfhzkJjINJR TATE6tGCxCACvEZQv3T9D oFaf6ZBCxsKxz LU8szKTjBXqnQs6knGexq GjbZO9dFMGtazhyIQAofR 7zLTRdnGEcrPsjTV8cTJO dpqxfq467AePc SKI3WNDvgGEnG4GdoZ9kL vHwYZFwAZFvB5KmyZPyUM piX081ZNzqDzJ0FOHfbrJ uB2NjZWYmcXlm FrV1l4E0Ni9wJr1qBF7vM MC8LG24IO17nEGka4U0xT Z5G5SfKYDilbkemakgmWS 2PGPhWTYmgQ20 rTLnLCwrVo7lq8T1x095T CBvNGOneW43Xr0lxJcbFK DvgVPBfS9dijljf3hpjhf gIzAwMDAwMDt0 QPt5QSSwiEopKtSqBBC8B yW5VSX8aVYsyG6oiGajrr yupK9fIkh+NTcgWWVhcnM 0I6NtOkv3MROo sLdzTF6ubMYfKZqdQd3hv BvivHqlJH2qKTLykvqlVM RpgN2aXREnzUNbePtbKX8 nAWKkjfmlj267 ZrVsHKZ2CISdyHMbM9Uhx T0xSbVoNNQiCEUrK7UqvN OaFJjzO939VSudYvQ0WXM zwuXpG4RjPOTo oOspWtG9r0W8Tx4HQV6zt OI8Z1OlHzl4NBLzoDwqIB 9hnRJgDDsaBu2bcXbhsLh oNZ4dCIGzezef POFswW2bAQGprTQaiPaaK E8pZJTwrkqsx175SbNkOA S9VYOzsCVfH6JodM6bPpZ aZULdGBReZ6Hf zOYtESnfW034OPrcAbR8J IPdygVaW6WgCJLnwMzaNs V5n3P8As7RwJT0gGP5k2Q 6U5XguSKeNDE5 GBT0rajqsst2C9BmOctal HI+QZ15GDLmZG98oOPetY Ccw2lfbZg2KzKxGJVwVAN 5yZkyBGcja4Ev OWHiU72kaYNkz0J4YIDqm AkydIIfHzNgwAP1vZ9wZV pblmyfl0fcncfyNxwzh0m suf72eQ58G11w IHdpZHRoPSIzMCUiIHZhb Fatje8lgM6mVp2+PGNvbC J9zIH8qB0sFvGsIvH3MVr jO674BrAvxAIb Wcqhn9qpk8vmlUx7JzUfA VDxyoDwaYjlSKB1x2WgQy 04M33iUGcwAIIpPJWhRQP cOMTxlVnsys4f eG6yMr1+DJ1te2lkub27k D48dHI+SLSbSZI8oFyqTB ueRZLnlM4tVHxzItN6VLZ oCbTieR32vZIn EQwaBd1ylWyejQfyVE7bG UArwdcvl916SaVaf1swTK NgsLPhVZigPVQ5R57tf9D 0RUZgNYJvRID7 hRG5wL3hnOrazebtzDJfk DsgdmVydGljYWwtYWxpZ2 24EFGetBkyLqTuuEWnY0e mxxATFC3cBnxt dGQ+OSCvGAJ6eDlwKSigS KAgoL0jYHIiX8d2DuWzLr A6NUqwL3BrxeI9KGGfyAN cKENgpGHHeH5z kugwi5odiqvrMhEuTFGyV Jy9CEd5OTMklRjqGxXfVD R3YoT3FBA7sVTlrO0cjHz dgfzisY1wMag+ RklOOjwvdGQ+IWYoFJN7p MyfZRoxLWPtvZ5sZAUeQ7 h2PfLeZiZ7YJgkO9CkfzL 6IGJvbGQgMTBw yHUFiE4avuoxz8swlgsdA wEtAUTxHTb8OMg2ETUhwK lwAoWjIYP3ByY9FCP1bAO wrG2yeVkcjiim bD8fLia+TVJOOjwvdGQ+P PVlLEJ7bPxkLWlvEJRwzF 6mZIVhA4x1PeNxZzY8CKe rW0QtvxW4QQCk iRGiPCXdhTWWaT5tmaknn 0vmbmywRuVgQEOjCTg9ZW w9WXEbkEyvCxXzGQK1DxL 6DXU9qBHolF1s yPhmfmnumQ5gRmo+UGF5Z ZU0OW71XH69V3BcEchwhC FibGU+PHRhYmxlIHdpZHR oPScxMDAlJyBz dHls (more content not included)... Normal [facility] Consent for Anesthesiaon Consent for Anesthesia [id number]#1 .00CD:127 Normal [facility] Discharge Instructionson Discharge Instructions [id number]#1 .00CD:127 [facility] IntraOperative Documentson 0 06-19-2022 IntraOperative Documents [id number]#1 .00CD:127 Normal [facility] IntraOperative Documents [id number] .00CD:127 Normal [facility] IntraOperative Documents [id number]#1 .00CD:127 Normal [facility] IntraOperative Documents [id number] .00CD:127 Normal [facility] Main [place] Intraoperative Recor don 06-19-2022 Main [place] Intraoperative Record IntraOp Document Type FT Summary Primary Physician: Chalo BLUM MD Finalized Date/Time: 06/19/22 09:19:54 Pt. Name: ELIZABETH IRVIN/Sex: 1965 Female Med Rec #: [id number] Physician: Chalo BLUM MD Financial #: [id number] Pt. Type: A Room/Bed: [place] [address] Admit/Disch: 06/18/22 09:05:47 - 06/18/22 13:30:00 Institution: [...] Anesthesiologist Surgeon - Primary Scrub - Primary Outside [employer] Sales Consultant Time In 06/18/22 11:12:00 06/18/22 11:12:00 06/18/22 11:12:00 Time Out 06/18/22 11:53:00 06/18/22 11:53:00 06/18/22 11:53:00 Procedure EXTRACORPOREAL SHOCK EXTRACORPOREAL SHOCK EXTRACORPOREAL SHOCK WAVE LITHOTRIPSY(Left) WAVE LITHOTRIPSY(Left) WAVE LITHOTRIPSY(Left) Comments DR BEAUCHAMP SUPERVISING Last Modified By: Mayi LYNN, Cheyenne Chin RN, RN, Kimberly Y 06/19/22 09:18:59 06/18/22 11:53:11 06/18/22 11:53:11 Entry 4 Case Attendee Cheyenne Figueredo RN Role Performed Tree Worker - Primary Time In 06/18/22 11:12:00 Time Out 06/18/22 11:53:00 Procedure EXTRACORPOREAL SHOCK WAVE LITHOTRIPSY(Left) Comments Last Modified By: Cheyenne Figueredo RN 06/18/22 11:53:11 General Comments: CARA TAY AND SHAE BATRES - ESWL REPS. GEOVANNI GEEcasting assistant Protocols FT Pre-Care Text: Implements protective measures [...] Yes Time Out Noah Maria, Given Participants KUWLANT REED, Ahmet Haro Jennifer E, Cheyenne Figueredo [...] and tissue Entry 1 Skin Integrity Intact, [place], Warm, and Skin Abnormality No Dry Outcomes [...] Position Supine (more content not included)... Normal [facility] Preoperative Documentson Preoperative Documents [id number]#1 .00CD:127 Normal [facility] Preoperative Documents [id number]#1 .00CD:127 Normal [facility] CHEMISTRYOrdered By: Lab ROP User on 06-18-2022 Glucose [Mass/Vol] 72 mg/dL Normal 55 - 99 mg/dL [facility] Subsection Comment on above: Result Comment: Jean avalos RN/ POC Device SN [id number] Invalid Interpretation Code [facility] Subsection POC User ID [id number] Invalid Interpretation Code [facility] Subsection POC Username CLAY LARIOS Invalid Interpretation Code [facility] Subsection Capillary Glucose POCon 05-25 Glucose [Mass/Vol] 72 mg/dL Normal 55-99 [facility] Comment on above: Result Comment: Jean avalos RN/ Performed By: #### 2 [id number] ####[facility] [id number] [place] [address] Consent for Procedure/Surger yon 06-18-2022 Consent for Procedure/Surgery [id number]#1 .00CD:127 Normal [facility] Consent for Treatmenton 05-25 Consent for Treatment [id number]#1 .00CD:127 Normal [facility] H&P Updateon 06-18-2022 H&P Update [id number]#1 .00CD:127 Normal [facility] Inpatient Patient Summaryon 06-18-2022 Inpatient Patient Summary [address] [address] [facility] Clinical Discharge Instructions PERSON INFORMATION Name: ELIZABETH IRVIN PHYSICIANS Admitting Physician: Chalo BLUM MD Attending Physician: Chalo BLUM MD PCP: BALBINA NAPOLES CNP Discharge Diagnosis: Comment: PATIENT EDUCATION INFORMATION Instructions: Post Op Patient Instructions - FT (Custom) (CUSTOM); Lithotripsy, Care After Medication Leaflets: Follow up: With: Address: When: Chalo BLUM [address] [place] [address], [address], [address] [address] Business (1) Within 1 to 2 weeks Comments: Call for followup appointment with an abdominal X-ray prior to your visit (my office will need to send an order for the X-ray) MEDICATION LIST New Medications [id number], [address] [place], [place] [id number], [phone] acetaminophen-hydroco done (acetaminophen-hydroc odone 325 mg-5 mg [...] for 7 Days. Refills: 0. Comment: Normal [facility] Main OR PACU I Recordon 05-25 Main OR PACU I Record PACU Phase I Docum ent Type FT Summary Primary Physician: Chalo BLUM MD Finalized Date/Time: 06/18/22 13:01:07 Pt. Name: ELIZABETH IRVIN/Sex: 1965 Female Med Rec #: [id number] Physician: Chalo BLUM MD Financial #: [id number] Pt. Type: A Room/Bed: [place] [address] Admit/Disch: 06/18/22 09:05:47 - Institution: Case Times [...] By: JENNIFER VAZQUEZ RN 06/18/22 13:01 Normal [facility] Main OR PACU II Recordon Main OR PACU II Record PACU Phase II Document Type FT Summary Primary Physician: Chalo BLUM MD Finalized Date/Time: 06/18/22 13:26:59 Pt. Name: ELIZABETH IRVIN/Sex: 1965 Female Med Rec #: [id number] Physician: Chalo BLUM MD Financial #: [id number] Pt. Type: A Room/Bed: Admit/Disch: 06/18/22 09:05:47 [...] Signed By: Clay Dobbs RN 06/18/22 13:26 [facility] Main OR Preoperative Recordo n 06-18-2022 Main OR Preoperative Record PreOp Document Type FT Summary Primary Physician: Chalo BLUM MD Finalized Date/Time: 06/18/22 11:23:43 Pt. Name: ELIZABETH IRVIN D.O.B./Sex: 1965 Female Med Rec #: [id number] Physician: Chalo BLUM MD Financial #: [id number] Pt. Type: A Room/Bed: Admit/Disch: 06/18/22 09:05:47 [...] By: Cheyenne Figueredo RN 06/18/22 11:23 Normal [facility] Monitor Recordon 06-18-2022 Monitor Record [id number]# 1.00CD:127 Normal [facility] Monitor Record [id number]# 1.00CD:127 Normal [facility] Operative Reporton 3 Operative Report Patient: ELIZABETH IRVIN Age: 56 years Sex: Female : 1965 Associated Diagnoses: None Author: Chalo BLUM MD Postoperative Information Date/ Time: 06/18/2022 11:54:00 Postoperative Diagnosis: Bilateral kidney stones (PPT90-HX N20.0, Working, Medical), Status post left JJ [...] it well. She is transferred to the rjulian and then back to PACU in satisfactory condition, stable vital signs. Plan will be for discharge home with plans to follow-up in the office within a week or so with a KUB. Discussed all this with her postoperatively and he is in agreement with the plan. Prescription sent to the pharmacy for [place], #7 1 p.o. every 4 hours as needed pain. Instruction sheet given . Estimated Blood Loss: 0 ml. Complications: None. Anesthesia type: General. Normal [facility] Comment on above: Result Comment: Elec tronically Signed By: Chalo BLUM MD\.br\Date and Time Signed: 06/18/22 11:58 EST Outpatient Surgery Discharge Instructionon 06-18-2022 Outpatient Surgery Discharge Instruction [place] [id number] Patient Discharge Instructions PERSON INFORMATION Name: MARILINELIZABETH [...] Follow up: With: Address: When: Chalo BLUM [address] [place] [address] [place], [address], [address] [address] Business (1) Within 1 to 2 weeks [...] to serve you. Thank you for choosing [facility] HERE ARE THE MEDICATION CHANGES THAT OCCURRED DURING YOUR HOSPITAL STAY New Medications [id number], [address], [place] [id number], [phone] acetaminophen-hydroco done (acetaminophen-hydroc odone 325 mg-5 mg [...] these instructions at home: Medicines ? Take qovx-rmf-uipbwsl and prescription medicines only as told by [...] pale yellow. (more content not included)... Normal [facility] Patient Education - Texton 0 06-18-2022 Patient [...] these instructions at home: Medicines ? Take uaxm-uuy-fdtkzuh and prescription medicines only as told by [...] help ri (more content not included)... Normal [facility] Progress Note-Physicianon Progress Note-Physician Patient: ELIZABETH IRVIN Age: 56 years Sex: Female : 1965 Associated Diagnoses: None Author: Garfield Beauchamp Jr., DO Postoperative Information Post Operative Note: Post Anesthesia Care Unit. Anesthetic utilized: General. Health Status Allergies: Allergic Reactions (Selected) Severity Not Documented PredniSONE- Hives. Valtrex- Hives. Problem list: All Problems Anemia / SNOMED CT 377441154 / Confirmed Arthritis / SNOMED CT 6086410 / Confirmed Depression / SNOMED CT 66151701 / Confirmed Hypertension / SNOMED CT 1285928970 / Confirmed Kidney stones / SNOMED CT 616468369 / Confirmed Restless legs syndrome / SNOMED CT 62103631 / Confirmed Type 2 diabetes mellitus / SNOMED CT 451774821 / Confirmed Ureteral stone / SNOMED CT 71137944 / Confirmed Physical Examination Vital Signs 06/18/2022 [...] noted. Plan Transfer/ Discharge: Condition stable. Normal [facility] Comment on above: Result Comment: Elec tronically [...] for 7 day(s), 14 tab(s), Refill(s) 0, [id number], 160, cm, 06/11/22 9:42:00 EST, Height/Length Dosing, [...] Diabetes Mother Procedure history: Cysto/basket extreaction/stent placement (03860381) on 03/19/2022 at 56 Years. Hysterectomy (628983591). Gastric bypass (3688168631). Social History Social & Psychosocial Habits Alcohol [...] Glucose Cap 72 mg/dL POC Device SN [id number] POC User ID [id number] POC Username LCAY LARIOS 06/11/2022 9:56 EST WBC 4.0 E9/L RBC 4.1 E12/L LOW HGB 10.7 gm/dL LOW Hct 33.2 % LOW MCV 81.1 fL MCH 26.2 pg LOW MCHC 32.3 gm/dL RDW 18.0 % HI Platelet 311.0 E9/L MPV 7.3 fL Neutro Auto 46.1 % Lymph Auto 40.8 % [place] Auto 7.5 % Eos Auto 4.1 % Basophil Auto 1.5 % Neutro Absolute 1.8 E9/L LOW Lymph Absolute 1.6 E9/L [place] Absolute 0.3 E9/L Eos Absolute 0.2 E9/L [...] IMPRESSION: NO (more content not included)... Normal [facility] Comment on above: Result Comment: Elec tronically [...] MD Transcribed by: HARDEEP Technologist: WANDA Pastor [facility] C Urineon 06-13-2022 Bacteria identified Cx Nom [...] Locations R1: This test [facility] performed at: [facility], [address] [place] [address], [facility] , , [facility] Comment on above: Performed By: #### 1 [id number], 4070974 ####[place] [address] [place] [address] Immunization Recordson 06-12 Immunization Records [id number]# 1.00CD:127 Normal [facility] Auto Diffon 06-11-2022 Basophils/100 WBC (Bld) 1.5 % Normal 0.0-2.0 [facility] Comment on above: Order Comment: Order Added by Discern Expert. Performed By: #### 1 5532868, 9073207, 7218956, 7846219, 22469967 ####[place] [address] [place] [address] Basophils/Leukocytes Auto (Bld) [Pure # fraction] 0.1 E9/L Normal 0.0-0.2 [facility] Comment on above: Order Comment: Order Added by Discern Expert. Performed By: #### 1 1242406, 7952031, 8528511, 2056667, 02296714 ####[address] [address] Eosinophils/100 WBC (Bld) 4.1 % Normal 0.0-8.0 [facility] Comment on above: Order Comment: Order Added by Discern Expert. Performed By: #### 1 6295184, 6200438, 7821883, 6707660, 50245093 ####[address] [address] Eosinophils/Leukocytes Auto (Bld) [Pure # fraction] 0.2 E9/L Normal 0.0-0.5 [facility] Comment on above: Order Comment: Order Added by Barber Expert. Performed By: #### 1 8409550, 4535048, 9554247, 2351552, 12620752 ####[address] [address] Lymphocytes/100 WBC (Bld) 40.8 % Normal 14.0-50.0 [facility] Comment on above: Order Comment: Order Added by Discern Expert. Performed By: #### 1 2297304, 3572777, 7996870, 5733649, 05722898 ####[address] [address] Lymphocytes/Leukocytes Auto (Bld) [Pure # fraction] 1.6 E9/L Normal 1.0-4.0 [facility] Comment on above: Order Comment: Order Added by Barber Expert. Performed By: #### 1 0399419, 9263511, 5088240, 7774891, 03738803 ####[facility] [address] [place] [address] Monocytes/100 WBC (Bld) 7.5 % Normal 4.0-14.0 [facility] Comment on above: Order Comment: Order Added by Discern Expert. Performed By: #### 1 4509948, 0319445, 0990995, 3015950, 07326025 ####[place] [address] [place] [address] Monocytes/Leukocytes Auto (Bld) [Pure # fraction] 0.3 E9/L Normal 0.2-1.0 [facility] Comment on above: Order Comment: Order Added by Discern Expert. Performed By: #### 1 4182709, 5362053, 3798233, 2516948, 08587615 ####[address] [address] Neutrophils/100 WBC (Bld) 46.1 % Normal 36.0-75.0 [facility] Comment on above: Order Comment: Order Added by Barber Expert. Performed By: #### 1 2081222, 3277321, 2548055, 3255252, 68369510 ####[place] [address] [place] [address] Neutrophils/Leukocytes Auto (Bld) [Pure # fraction] 1.8 E9/L Low 2.0-7.5 [facility] Comment on above: Order Comment: Order Added by Discern Expert. Performed By: #### 1 9965665, 5512275, 4368515, 9568057, 56011918 ####[place] [address] [place] [address] BMPon 06-11-2022 Anion gap [Moles/Vol] 11 mmol/L Normal 6-16 [facility] Comment on above: Performed By: #### 1 5541192, 6532699, 4493511, 7799854, 18319368 ####[place] [address] [place] [address] Calcium [Mass/Vol] 9.2 mg/dL Normal 8.9-11.1 [facility] Comment on above: Performed By: #### 1 4578771, 8322452, 2570719, 1309110, 46447369 ####[facility] [address] [facility] [address] Chloride [Moles/Vol] 110 mmol/L Normal 101-111 [facility] Comment on above: Performed By: #### 1 0145984, 5875276, 4689108, 9849907, 77646201 ####[facility] [address] [place] [address] CO2 [Moles/Vol] 23 mmol/L Normal 21-31 [facility] Comment on above: Performed By: #### 1 2119334, 9031663, 5566105, 0582835, 60413139 ####[facility] [address] [place] [address] Creatinine [Mass/Vol] 1.8 mg/dL High 0.5-1.3 [facility] Comment on above: Performed By: #### 1 9594023, 5808236, 1442313, 2114567, 56956510 ####[facility] [address] [place] [address] Glucose [Mass/Vol] 78 mg/dL Normal 55-199 [facility] Comment on above: Result Comment: If t his glucose result represents a fasting glucose, interpretation should refer to the following reference range: 55-99 mg/dL Performed By: #### 1 6566593, 1239240, 7902579, 2622036, 31253326 ####[facility] [address] [facility] [place] [address] Potassium [Moles/Vol] 5.3 mmol/L Normal 3.5-5.3 [facility] Comment on above: Performed By: #### 1 8960624, 1800493, 6713922, 6408456, 65439603 ####[facility] [address] [place] [address] Sodium [Moles/Vol] 139 mmol/L Normal 135-145 [facility] Comment on above: Performed By: #### 1 2071035, 0780748, 9009999, 8840594, 19905697 ####[facility] [address] [place] [address] Urea nitrogen [Mass/Vol] 22 mg/dL High 5-21 [facility] Comment on above: Performed By: #### 1 9542735, 5465921, 2003964, 3636202, 47899628 ####[facility] [address] [place] [address] Urea nitrogen/Creatinine [Mass ratio] 12 No Units Normal 10-20 [facility] Comment on above: Performed By: #### 1 8174514, 5146571, 5550777, 6365448, 16630849 ####[facility] [address] [place] [address] CBC w/ Auto Diffon 3 Erythrocyte distribution width (RBC) [Ratio] 18.0 % High 10.9-14.2 [facility] Comment on above: Performed By: #### 1 2645067, 3055742, 2390944, 4087752, 71574610 #### [facility] [address] [place] [address] Hematocrit (Bld) [Volume fraction] 33.2 % Low 34.0-46.0 [facility] Comment on above: Performed By: #### 1 1380861, 7322154, 2656607, 7328084, 95675270 #### [facility] [address] [place] [address] Hemoglobin (Bld) [Mass/Vol] 10.7 g/dL Low 12.0-16.0 [facility] Comment on above: Performed By: #### 1 1639103, 5392227, 5783831, 6561006, 72331376 #### [facility] [address] [place] [address] MCH (RBC) [Entitic mass] 26.2 pg Low 27.0-34.0 [facility] Comment on above: Performed By: #### 1 3641742, 9876343, 4960786, 5639248, 34035353 #### [facility] [address] [place] [address] MCHC (RBC) [Mass/Vol] 32.3 g/dL Normal 31.4-36.0 [facility] Comment on above: Performed By: #### 1 7428670, 7188302, 1285707, 0662965, 58441160 #### [facility] [address] [place] [address] MCV (RBC) [Entitic vol] 81.1 fL Normal 80.0-100.0 [facility] Comment on above: Performed By: #### 1 2371603, 2846420, 1210641, 3826607, 23026585 #### [facility] [address] [place] [address] Platelet mean volume (Bld) [Entitic vol] 7.3 fL Normal 6.4-10.8 [facility] Comment on above: Performed By: #### 1 2477242, 4843886, 3167198, 0753095, 62834526 #### [facility] [address] [place] [address] Platelets (Bld) [#/Vol] 311.0 E9/L Normal 150.0-500.0 [facility] Comment on above: Performed By: #### 1 6640847, 0794215, 2430098, 2028764, 10941853 #### [facility] [address] [place] [address] RBC (Bld) [#/Vol] 4.1 E12/L Low 4.3-5.9 [facility] Comment on above: Performed By: #### 1 3695927, 4444297, 8087290, 4405793, 46099596 #### [facility] [address] [place] [address] WBC corrected for nucl RBC Auto (Bld) [#/Vol] 4.0 E9/L Normal 4.0-11.0 [facility] Comment on above: Performed By: #### 1 1016813, 6327113, 0732064, 2401941, 91224787 #### [facility] [address] [place] [address] CHEMISTRYOrdered By: SYSTEM SYSTEM on 06-11-2022 Anion gap [Moles/Vol] 11 mmol/L Normal 6 - 16 mEq/L [facility] Remisol Calcium [Mass/Vol] 9.2 mg/dL Normal 8.9 - 11. 1 mg/dL [facility] Chloride [Moles/Vol] 110 mmol/L Normal 101 - 1 11 mmol/L [facility] Remisol CO2 [Moles/Vol] 23 mmol/L Normal 21 - 31 mmol/L [facility] Creatinine [Mass/Vol] 1.8 mg/dL High 0.5 - 1.3 mg/dL [facility] GFR/1.73 sq M.predicted among blacks MDRD (S/P/Bld) [Vol rate/Area] 35 mL/min/1.73 m2 Low >=59mL/min/1 .73 m2 [facility] Chem S GFR/1.73 sq M.predicted among non-blacks MDRD (S/P/Bld) [Vol rate/Area] 29 mL/min/1.73 m2 Low >=59mL/min/1 .73 m2 [facility] Chem S Glucose [Mass/Vol] 78 mg/dL Normal [...] for Treatmenton 05-24 Consent for Treatment [id number] [facility] [id number]#1 .00CD:127 Normal [facility] HEMATOLOGYOrdered By: SYSTEM SYSTEM on 06-11-2022 Basophils/100 [...] Coag (PPP) [Time] 33.1 second(s) Normal 25.1-36.5 [facility] Comment on above: Result Comment: Para meter [...] the same coagulation reagent and instrumentation as [facility]. Currently there are no coagulation studies available worldwide for children to 14 days, and no normal ranges. Heparin therapeutic range (represented by Anti-Factor Xa activity of 0.2 - 0.4 U/mL) corresponds to PTT of 56.6 - 109.0 sec. Performed By: #### 1 3263768, 5964407, 5744313, 5437027, 72165856 #### [facility] [address] [place] [address] INR Coag (PPP) [Relative time] 1.0 {INR} Invalid Interpretation Code [facility] Comment on above: Result Comment: INR results are specifically intended to assess patients stabilized on long-term Anticoagulation therapy suggested INR?s ?Less Intensive Anticoagulation? 2.0 ? 3.0 Conventional Range 3.0 ? 4.5 Performed By: #### 1 2796219, 5670113, 0848162, 8730100, 89291445 #### [facility] [address] [place] [address] PT Coag (PPP) [Time] 10.6 second(s) Normal 9.4-12.5 [facility] Comment on above: Result Comment: 15 d [...] the same coagulation reagent and instrumentation as [facility]. Currently there are no coagulation studies available worldwide for children to 14 days, and no normal ranges. Performed By: #### 1 5556921, 2818497, 4652775, 3975531, 98743719 #### [facility] [address] [place] [address] UA With Cult Reflexon 2022 Bacteria LM Ql (Urine sed) 3+ /HPF Abnormal Trace [facility] Comment on above: Performed By: #### 1 9760515, 1641695 ####[facility] [address] [place] [address] Bilirubin Ql (U) Negative Normal Negative [facility] Comment on above: Performed By: #### 1 6952527, 8506121 ####[facility] [address] [place] [address] Clarity (U) SL CLOUDY Abnormal Clear [facility] Comment on above: Performed By: #### 1 3479824, 0904374 ####[facility] [address] [place] [address] Color (U) YELLOW Normal Yellow [facility] Comment on above: Performed By: #### 1 0626087, 6366567 ####[facility] [address] [place] [address] Epithelial cells.squamous LM.HPF (Urine sed) [#/Area] 3-4 Normal 0-2 [facility] Comment on above: Performed By: #### 1 4827550, 9057677 ####[facility] [address] [place] [address] Glucose Test strip (U) [Mass/Vol] Negative Normal Negative [facility] Comment on above: Performed By: #### 1 1819833, 4568198 ####[facility] [address] [place] [address] Hemoglobin Ql (U) 2+ Abnormal Negative [facility] Comment on above: Performed By: #### 1 6264556, 8772196 ####[facility] [address] [facility] [address] Ketones (U) [Mass/Vol] Negative Normal Negative [facility] Comment on above: Performed By: #### 1 2049874, 0339376 ####[facility] [address] [facility] [place] [address] [place].plasma/[place] .RBC (Bld) [Mass ratio] 4-20 Normal 0-3 [facility] Comment on above: Performed By: #### 1 5282682, 6509498 ####[facility] [address] [facility] [place] [address] Nitrite Ql (U) Positive Abnormal Negative [facility] Comment on above: Performed By: #### 1 7904273, 2506720 ####[facility] [address] [place] [address] pH (U) 6.0 [pH] Invalid Interpretation Code 5.0-9.0 [facility] Comment on above: Performed By: #### 1 3933651, 8307237 ####[facility] [address] [place] [address] Protein (U) [Mass/Vol] TRACE Abnormal Negative [facility] Comment on above: Performed By: #### 1 1603654, 6794331 ####[address] [address] Specific gravity (U) [Rel density] 1.025 Invalid Interpretation Code 1.005-1.030 [facility] Comment on above: Performed By: #### 1 6359120, 4876465 ####[address] [address] Type of Urine collection method Clean Catch Normal [facility] Comment on above: Performed By: #### 1 6106540, 5775763 ####[address] [address] Urobilinogen Qn (U) 0.2 {Coby'U}/dL Normal 0.0-1.0 [facility] Comment on above: Performed By: #### 1 0756894, 4292867 ####[address] [address] WBC Auto Ql (U) 3+ Abnormal Negative [facility] Comment on above: Performed By: #### 1 6974703, 8120510 ####[address] [address] WBC LM.HPF (Urine sed) [#/Area] /[HPF] Abnormal 0-5 [facility] Comment on above: Performed By: #### 1 2018082, 6398867 ####[address] [address] URINALYSISOrdered By: Pia weber on 06-11-2022 Bacteria [...] AM) Normal Negative [facility] UA Auto SS [place].plasma/[place] .RBC (Bld) [Mass ratio] 4-20 /HPF Normal [...] [facility] UA Auto SS Urobilinogen Qn (U) 0.1439869 {Coby'U}/dL Normal 0.0 - 1.0 EU/dL [facility] UA Auto SS WBC Auto Ql (U) 3+ *ABN* (06/11/22 9:56 AM) Invalid Interpretation Code Negative [facility] UA Auto SS WBC LM.HPF (Urine sed) [#/Area] /[HPF] Invalid Interpretation Code 0-5/HPF [facility] UA Auto SS eGFRon 01-19-2023 GFR/1.73 sq M.predicted among blacks MDRD (S/P/Bld) [Vol rate/Area] 35 mL/min/1.73 m2 Low >=59 [facility] Comment on above: Order Comment: Order added by Discern Expert. Result Comment: eGFR is race adjusted. AA=. Performed By: #### 1 3296910, 5751301, 3614824, 6789953, 87161705 ####[facility] [address] [place] [address] GFR/1.73 sq M.predicted among non-blacks MDRD (S/P/Bld) [Vol rate/Area] 29 mL/min/1.73 m2 Low >=59 [facility] Comment on above: Order Comment: Order added by Discern Expert. Result Comment: Valve And Regulator Repairer barron kidney disease could be indicated at eGFR's of less than 60 mL/min/1.73m2. Kidney failure is indicated at less than 15 mL/min/1.73m2. Performed By: #### 1 4200137, 2344352, 5496472, 9070620, 06454177 ####[facility] [address] [place] [address] Outside Recordson 05-14-2022 Outside Records [id number]# 1.00CD:127 Normal [facility] Consultation Noteon 05-07-20 Consultation Note [id number]#1 .00CD:127 Normal [facility] Office Visit (Cardiology)on 05-05-2022 Follow-up visit Diagnoses/Problems Assessed Benign essential hypertension (401.1) (I10) Overweight with body mass index (BMI) of 26 to 26.9 in adult (278.02,V85.22) (E66.3,Z68.26) Never a smoker Pre-operative cardiovascular examination (V72.81) (Z01.810) Orders Benign essential hypertension, Pre-operative cardiovascular examination IO EKG Electrocardiogram- 12 Lead; Status:Complete; Done: 94Sbx1251 Overweight with body mass index (BMI) of 26 to 26.9 in adult Healthy Weight Tips; Status:Complete - Retrospective Authorization; Done: [id number] Some eating tips that can help you lose weight.; Status:Complete - Retrospective Authorization; Done: [id number] SocHx: Never a smoker Tobacco Use Screening; Status:Complete; Done: 29Ytx5450 Patient Instructions Please bring all medicines, vitamins, [...] negative for complaint. Vitals Vital Signs Recorded: 23Msc7089 03:50PMRecorded: 18Gzv5510 03:49PM Iddjxxof84, RUE, Umyclmz32, LUE, Sitting Pviiyrgkp52, RUE, Zltzujp79, LUE, Sitting Heart Cdta678, Apical Height5 ft 3 in Ulhbcm302 lb BMI Hafmrjhdhn69.22 kg/m2 BSA Calculated1.7 Tobacco Useb) No PHQ-2 [...] Signatures Electronically (more content not included)... Normal [facility] Tobacco Screening.on 022 Tobacco use status [facility] b) No -[facility] y [address] DO Work Phone: Tobacco Screening. Yes [facility] [place] [facility] DO Work Phone: Coding Summary.on 04-21-2022 Coding Summary. CD:123306ZG:1311036L G h0bWw+PGhlYWQ+WW8MKSV qX12sjRKvrJ5HS5hORY1O UXUXQCXLCF2ROA3ggRG6C LziP1GwyrCm MrzwnMSrAP30SYl8FGK3h LeoWXzlyU5ruVLoT1q9Tg CjGI07sJ34PDsvIYWiXrI 3LjZpbjsgbWFy C3znLtBjiHNbXax+PHRhY mxlIHdpZHRoPScxMDAlJy CqrQdpGO7mTb8xPPKrZXR vbGxhcHNlOiBj c2uiMIYkVJllJG1rmLleO 8YhsAY3CAZiy2o6Nc80nQ I+ZPYvRIP9lTvwSXegc34 2BgMlr9txYBW6 dREuXAdaPRK3X17to5M8D IDqDDOuPEO4aVS4cC2mmW aoynsiD8UjwKXwYeG8VHW 4xUWfbB1ajBoh pdackQ1qNaq+Z58ISS0AT MTMGN7YOte1Z6YfJjgueB I+YY98EGJpUR94hNCpyNO oi2embCd4SfZp EGBoUGH1iBdkCJero9VlS UMwQ41oiZIpu8L7HWUazH jzyTFqCzSvqLD4qH8dXEr lhxcwz3xdwyyu Axkgc2lhxt05zO07P80kS DiwSVJxSDF9IXDlXDNbbC gcom8pkX7kUe1+NVwxl2d tz5kexEc0CdBh IRSucxVkaVdzWFK3w2ZbE u82J3BgtIxal8IxUjr1sm 42qFYrr9V9xRB8HKfrGBT poR6lYNvnIzI9 SPGzHiCmzK66sQLgSZbsX l5syEicxPvqPE7zOFQuxy bjVWTowZ4jUZCptZXemEf vCX1sFVQiqwot x007OsWfVJE2SLJzcXVwT 0AlrD9fKgHkKYLrMLZaP4 LgjEVwOQduC320MYajZxS 9RHJdqtMwI7Wv HHPsiNsmBtV6f4J7Us0Xk 8GonbemVXG0WGdwXEEuCm W7NoSkKdI7B4LmNnh3LJE cjUymIY4gD7Dn PAReknnmzlkjmYJ1LKLtS SDrzN10dSAmZFwgAe3lk6 T5r506GGBcHZRmpJ14Ey5 udDogMTBwdCBU hH3usvyas9ojjeuwMqRkR ZTtVUk5ZHf0JWDqhQucEy MdBMO2DuZ0STO0gGPbbA4 zqLoxzjuzcE7v Oyc+U48buH6xGUQ1IDH9t xfsCUSobcIzFP84UA03G5 RyPjwvdGFibGU+PGRpdiB jhExzPT2uVbJt u9pnk9IlBFgoS9KyUTGiD ZmoZwb7TCQsIHT9kFW6yK 2tEGPxTIshv5Y4dCO0F1S qyxMwpg0if8zo PTVvHQznJ56xwUVkr5H4V AYmvBA3RPPssYotPbKxwI 93Oyc+RBFvoVwph6XyBua ng1iqy0qxrAp1 GdJbCYZoogPldOqmAZI3r 2KkDl17D91nINfkKBIuZI TcPMIsQXUixCykjf6qrI9 wIi8+PGNvbCB3 cWX0rR5sVIUiTmC9LCgtB 877PdUjaGYoXfrxk2orc9 gwlSo0EvYtESEzcaBlpIa iADC8m1YmFe63 R54hBDyjOTQcZFFoLJWaL UUcmGpryf2sbG5jZo3+PC 7bw7miiv28eU06kPP+PHR aDOO2oVziKTdl FAChqG9qUPwdXmE6LHDlS pGmbP84lJVeDMjrUc4zwD emnBmcGX7tLIAuqoazq55 2JsMvv4lrIVSq mIHwVRimGGA1T97gs7Z4Q JLlZOJgLGK6pZU8xB9hhR lnbjogbGVmdDsgdmVydGl bGAgjKAstL509 IHRvcDsnPlBhdGllbnQgT wRuDYe7P8RyAdr4OFJyeJ siWU1xjAVxPNzpVd0weQr sjNedRH2oFEYo rsudk841UeLho7obAUAem KPgFFckOWM1N04gu6L4WD KbPCKiSJQ2lOL3jH6zhPv nbjogbGVmdDsg tbHrzOfoLDmeTUjwO468T HRvcDsnPkJpcnRoIERhdG U4YQ41UW58dBIjs9O9iPW 8U9IeYPLnurrx nizxgEQ0CUSfJTBeeY05T e7jxUreZc3iGWYfQMQ6SD XhsFIaM7TbsA4hKzMzLWS lQDZfG9LpfHVg KUnvX732OTlbSyR2CLYiw oQjA8SjJZPotWdpNcS1y0 A8Of4VI9H7EQ11VL43hKU cq3W5fLS0S4Lj GQNualntmgqskXW8NFApA MOtsT45Ly0edYzjLf6mMN MzTSY8JGGgtVRaP9FoqX8 yOiAjMDAwMDAw M9RovNIsBUvbR032XRyrF nU3IAVqbdMxX3JtTJUhmK xiYuE9g3A5Tb8UBMr2SL8 7YH42oKRjd8L7 lOH5Q5BhYUEdjvjnciibs KB1EQWlWHSrfZ91Ic4hsK coDr7lFAUzRTU1CHLijOM oZ8DfbN5gUvMw SYTpJNLcP6TjiJOaYSdtI 106JOxyPdK9XWRvlaLkK9 LgWHQhdQuvNhO9x6Z4Pc5 XYWSaBL62BMV8 kOD2ZH76YX95G2TtLjtjb GFibGU+PHRhYmxlIHdpZH RoPScxMDAlJyBzdHlsZT0 oJj6lOTNrCALe eGanpXQqIxGeg5ssNPToU SodBL4ntSmvV3MynYO7AM Jxq2n8Lu32A60aJ5KjrPF +GQTybEQ9wNB9 dX1tRkGyGuO0NTdhQ013H qLhuDXzBdaim9xdu5swqB i2VqB4TEZenrAluYmaWUR 0h2DnQd20E45r IHdpZHRoPSIxNSUiIHZhb Phufs3gjR3wXg6+PGNvbC N4iIL7nC0wObEgZlG7CSi lP682XvZpuGXj Inwyy6sjm1molJf4WyBoR CVxytHhxFuyUIP3j7VnZr 76G7OehZrmw6VbEjy5hx9 6aQMrp9K6wFU6 H7LfVJXanjqxsDVitHnlT S9zYILluohrGHJifA0gHC JlF5x7JgKaSxO9LThvN3I freG3PGFowJQs EArdHMV0V29qy5Y3EXGyI SVeTOC5lEI5vM0dyUcwhb ogbGVmdDsgdmVydGljYWw jXPsvI166SYWz tPrtAILzgQ3qLKIxdJCdh SmzHN5tXIFgztsqGuDDFB BXTS5eHWgEPIjADYh9G6N qVhg2AUKwwMoq YF0drEYiTHskOr6tpCzhb NqmRV7kCGWjtgjcGBYzgC 6dGUTnyFUsdGkbLB4uSWU ossbss153FnKy ZVY6NFDjuIMzY1EmvH3lB sPmVBEoMLSvA5FarWAcIT dpY104FBheMfQ7PTEtxiX iY7EiIVOnlAjr DlY6s2B9Xk5zMl6mCC7rM XQ3MM17SR90fWVrw1C2bY M5N5WoFLDfjkoesrkwpSH 6DDKpWCGeiF48 xVMvPSspGr2ax4U2s006A TMfBKVopQ29Lg7pbZquML AauQGBjV5orugar5qsxhq gIzAwMDAwMDt0 ALz6NKTehCvgXoXgGKJ4W qI0ZRV7zAAmcK3ihCwufm kcxV8xTto+NTcgWWVhcnM 0H8TtMeh9FVVp vBwqDI4nlMRkFGvlLd9ck NvihUneOD4dEBTsdfwpUN LgpC6lOJFiyCLirWxwWH4 gVABbzytcz983 FhZoBLG4XSAmfKOdU7Vzw J3wDjLnQOEhYOKdZ9RwvL BmPTntW994VQqiFsI4AZG jqqFcW2RfPMTw yYemUwS7a6C6Xg4AQX0bd QW8G1GnFgl8AQEfdLqxMI 6fyWLsSXrcWx8fcJughEp aCB8oVZNsyrjz GQQbxS2nVJCdiJMuoFrsW M1eWKNvyhxrj908IsYnTY K4LMKoaGQuT9OtdO6fHqN dIYYmRMZfX4Gk fBIgKRzmU884SLylReV8Q UUxmdXmT7QbDRZwzMukGw B2l6M7Yn5EmBXyQXHjQP0 7LP85PA34M7La PjwvdGFibGU+PHRhYmxlI HdpZHRoPScxMDAlJyBzdH vmXW7cYy9uCKLkRFQhqLf xmTQfPeNbm8lv CZMmSUtpSO6tfPfqZ8Yhj II0STKth6x6Uw27L34xT9 JvdXA+ZDYsdMI0rFB7nR9 sQjCoKeU0SCxw J475EtCooCPgRmoey9tib 5mvnAf1NxAqGDLritWfmY ecMLY6z3AjJz90X40mYSp pZHRoPSIyMCUi FLEebPplkg9otS6sNm0+P CQqiPH5yTU8qT2qWxYiYg O8XGtxW459XyFxmKXmMmy kF92gZ9RslKC+ OHLiBbs8DODkjPobWH0nn OXiVFtdXw0gYZA3SxWsKh XeNMmlY0DsYIYrnuxoaxr qsCH2EIPpTGRo uA44Ie3ldOcvNq6jNHCbP NQ6YVIaeZQgJ6QnbQ7tRu GfRMZiTRZhB7YcpRMqOOy iD501ETxpPlR6 EIUtowVdZ9LxYWBiqNeuS rS6q6U2Qz4FtZoffQWcAJ 0zVeDqUIh4U1WiXpt9JWM kvRlkPN6fhSCn NUajXx7paZcagZieCJ4wM LWelanfv702RiBai9ynGB HqpAItPYzdHLN2A48nl8T 8DVDwUVFiHNJ6 nQB0wQ7gpJtgieapeSZho DsgdmVydGljYWwtYWxpZ2 89AWXyxAicYxWNCaz5B0H wPbd0QCVvlKbs RQ2szZDqONegDo7vkRqgq GcdFN8sBOCkhnmip880Kb Xej2olJHHyaKWiZSxmOND 4C03yf0O1PANb BVYlJWI2eOQ6rS0bvBiyi jogbGVmdDsgdmVydGljYW mbWNxrA482JSOmlJlaKh4 NBoq5U4WeAoq1 DYRhpNjzGK2ciAWpTOhhA o2lpJrgdNlsSE8hUXJpxu diq966IxEqc5feNKFjaXY kYIoaQIE7Q94r n2R7UQRcLFEtYUI9rCM3z Q6khWmapqegfAZmbBclha YogZelPPpzOOlhK359JHK vcDsnPlBheWVy OjwvdGQ+KA32yc42L7XnX ktbKkg4AENiKLC3dHF5hE 4rKBGxYOlwr9H4kVC3N6Y tycBlei0vh9ez YXBz (more content not included)... Normal [facility] Outside Recordson 04-21-2022 Outside Records [id number]#1 .00CD:127 [facility] Consent for Treatmenton 03-25 Consent for Treatment [id number]#1 .00CD:127 [facility] XR Chest 2 Viewson XR Chest [...] Sweeney M.D. Transcribed by: HARDEEP Technologist: LUPE [facility] Outside Recordson 04-14-2022 Outside Records [id number]#1 .00CD:127 [facility] RAD - MISCon 04-06-2022 RAD - MISC [id number]#1 .00CD:127 [facility] Insurance Correspondence Off iceon 04-02-2022 Insurance Correspondence Office [id number]#1 .00CD:127 Normal [facility] Formson 04-01-2022 Forms [id number] 1.00CD:127 Normal [facility] XR KUB 1 VIEWon 04-01-2022 XR KUB [...] by: NATACHA WILD Date: 2022-04-01 08:23 Normal [facility] Patient Educationon 03-31-20 Patient Education Urology [...] these instructions at home: Medicines ? Take mfmc-ylg-mdscpeg and prescription medicines only as told by [...] 10/26/2008 Document Revised: 09/26/2019 Document Reviewed: 09/26/2019 [employer] Patient Education ? 2019 [employer] Normal [facility] Urology Office/Clinic Noteon 03-31-2022 Urology Office/Clinic Note Chief Complaint New Pt HPI Staff New Pt. Pt was seen at [facility] on 03/19/22 due to right flank pain. [...] ureter) New patient. Pt was seen at [facility] on 03/19/22 due to right flank pain. [...] Information KULWANT REED, Chalo P, URL [address] [address]- Additional Instructions: Schedule Left ESWL Patient Education Kidney Stones, [id number] IJennifer, personally scribed for Dr. Blum on [...] Ozempic, SubCutan (more content not included)... Normal [facility] Comment on above: Result Comment: Elec tronically Signed By: Chalo BLUM MD\.br\Date and Time Signed: 03/31/22 13:50 EST\.br\Electronically Co-Signed By: Jennifer Hamilton\.br\Date and Time Co-Signed: 03/31/22 13:36 EST Operative Reporton 2 Operative Report [id number]#1 .00CD:127 Normal [facility] CALCULI, URINARYon 2 2,8 Dihydroxyadenine Normal [facility] Comment on above: Performed By: #### C ALCULI #### [facility] [address] [place] [address] Dr. Adryan Faustin Ammonium Acid Urate Normal [facility] Comment on above: Performed By: #### C ALCULI #### [facility] [address] [address] [address] Adryan Faustin Bilirubin Ql (U) Normal [facility] Comment on above: Performed By: #### C ALCULI #### [facility] [address] [address] [address] Adryan Faustin Ca Oxalate Dihydrate 20 % Normal [facility] Comment on above: Performed By: #### C ALCULI #### [facility] [address] [address] [address] Adryan Faustin CaHPO4 (Brushite) Normal [facility] Comment on above: Performed By: #### C ALCULI #### [facility] [address] [address] [address] Adryan Faustin Calcium Bilirubinate Normal [facility] Comment on above: Performed By: #### C ALCULI #### [facility] [address] [address] [address] Adryan Faustin Calcium Carbonate Normal [facility] Comment on above: Performed By: #### C ALCULI #### [facility] [address] [address] [address] Adryan Faustin Calcium Oxalate Monohydrate 80 % Normal [facility] Comment on above: Performed By: #### C ALCULI #### [facility] [address] [address] [address] Adryan Faustin Calcium Palmitate Normal [facility] Comment on above: Performed By: #### C ALCULI #### [facility] [address] [address] [address] Adryan Faustin Calcium Phosphate Normal [facility] Comment on above: Performed By: #### C ALCULI #### [facility] [address] [address] [address] Adryan Faustin Calcium Stearate [facility] Comment on above: Performed By: #### C ALCULI #### [facility] [address] [place] [address] Dr. Adryan Faustin Carbonate Apatite Normal [facility] Comment on above: Performed By: #### C ALCULI #### [facility] [address] [place] [address] Dr. Adryan Faustin Cellular Material [facility] Comment on above: Performed By: #### C ALCULI #### [facility] [address] [address] [address] Adryan Faustin Cholesterol [facility] Comment on above: Performed By: #### C ALCULI #### [facility] [address] [address] [address] Adryan Faustin Color (U) Brown Normal [facility] Comment on above: Performed By: #### C ALCULI #### [facility] [address] [address] [address] Adryan Faustin Comment [facility] Comment on above: Performed By: #### C ALCULI #### [facility] [address] [address] [address] Adryan Faustin Comment Comment [facility] Comment on above: Result Comment: Calc ulus received wet. Wet calculi must be dried before analysis, which delays reporting of results. Leaving calculi wet (such as water, saline, blood, urine) may lead to changes in composition. Performed By: #### C ALCULI #### [facility] [address] [place] [address] Dr. Adryan Faustin Comment: Comment Normal [facility] Comment on above: Result Comment: Alejandra sandoval questions regarding Calculi Analysis [facility] at: [phone]. Performed By: #### C ALCULI #### [facility] [address] [place] [address] Dr. Adryan Faustin Composition Comment [facility] Comment on above: Result Comment: Perc entage (Represents the % composition) Performed By: #### C ALCULI #### [facility] [address] [place] [address] Dr. Adryan Faustin Cystine [facility] Comment on above: Performed By: #### C ALCULI #### [facility] [address] [place] [address] Dr. Adryan Faustin Disclaimer: Comment Normal [facility] Comment on above: Result Comment: This test was developed and its performance characteristics determined by [facility]. It has not been cleared or approved by the Food and Drug Administration. Performed By: #### C ALCULI #### [facility] [address] [place] [address] Dr. Adryan Faustin Dried Blood Normal [facility] Comment on above: Performed By: #### C ALCULI #### [facility] [address] [place] [address] Dr. Adryan Faustin Drug or Metabolite Normal [facility] Comment on above: Performed By: #### C ALCULI #### [facility] [address] [place] [address] Dr. Adryan Faustin Hydroxyapatite Normal [facility] Comment on above: Performed By: #### C ALCULI #### [facility] [address] [place] [address] Dr. Adryan Faustin Mg NH4 PO4 (Struvite) Normal [facility] Comment on above: Performed By: #### C ALCULI #### [facility] [address] [place] [address] Dr. Adryan Faustin MgHPO4 (Newberyite) Normal [facility] Comment on above: Performed By: #### C ALCULI #### [facility] [address] [address] [address] Adryan Faustin Other component(s) Normal [facility] Comment on above: Performed By: #### C ALCULI #### [facility] [address] [address] [address] Adryan Faustin PDF . Normal [facility] Comment on above: Performed By: #### C ALCULI #### [facility] [address] [address] [address] Adryan Faustin Photo Comment [facility] Comment on above: Result Comment: Phot ograph will follow under a separate cover Performed By: #### C ALCULI #### [facility] [address] [address] [address] Adryan Faustin Please note: Comment Normal [facility] Comment on above: Result Comment: Calc gustavo report will follow via computer, mail or infertility nurse delivery. Performed By: #### C ALCULI #### [facility] [address] [address] [address] Adryan Faustin Size 5x2 [facility] Comment on above: Result Comment: Mult iple pieces received. Dimensions of the largest piece reported. Performed By: #### C ALCULI #### [facility] [address] [address] [address] Adryan Faustin Sodium Acid Urate Normal [facility] Comment on above: Performed By: #### C ALCULI #### [facility] [address] [address] [address] Adryan Faustin Source Comment [facility] Comment on above: Result Comment: Left Ureter Performed By: #### C ALCULI #### [facility] [address] [address] [address] Adryan Faustin Triamterene [facility] Comment on above: Performed By: #### C ALCULI #### [facility] [address] [address] [address] Adryan Faustin Uric Acid [facility] Comment on above: Performed By: #### C ALCULI #### [facility] [address] [address] [address] Adryan Faustin Uric Acid Dihydrate Normal [facility] Comment on above: Performed By: #### C ALCULI #### [facility] [address] [address] [address] Adryan Faustin Weight 80 mg [facility] Comment on above: Performed By: #### C ALCULI #### [facility] [address] [address] [address] Adryan Faustin Xanthine [facility] Comment on above: Performed By: #### C ALCULI #### [facility] [address] [address] [address] Adryan Faustin RAD - CT Reporton 03-26-2022 RAD - CT Report [id number]#1 .00CD:127 Normal [facility] RAD - MISCon 03-26-2022 RAD - MISC [id number]#1 .00CD:127 Normal [facility] RAD - MISC [id number] .00CD:127 Normal [facility] RAD - MISC [id number]#1 .00CD:127 Normal [facility] CALCULI, URINARYon 2 2,8 Dihydroxyadenine [facility] Comment on above: Performed By: #### C ALCULI #### [facility] [address] [address] [address] Adryan Faustin Ammonium Acid Urate [facility] Comment on above: Performed By: #### C ALCULI #### [facility] [address] [address] [address] Adryan Faustin Bilirubin Ql (U) [facility] Comment on above: Performed By: #### C ALCULI #### [facility] [address] [address] [address] Adryan Faustin Ca Oxalate Dihydrate 20 % Normal [facility] Comment on above: Performed By: #### C ALCULI #### [facility] [address] [address] [address] Adryan Faustin CaHPO4 (Brushite) Normal [facility] Comment on above: Performed By: #### C ALCULI #### [facility] [address] [address] [address] Adryan Faustin Calcium Bilirubinate Normal [facility] Comment on above: Performed By: #### C ALCULI #### [facility] [address] [address] [address] Adryan Faustin Calcium Carbonate Normal [facility] Comment on above: Performed By: #### C ALCULI #### [facility] [address] [place] [address] Dr. Adryan Faustin Calcium Oxalate Monohydrate 80 % [facility] Comment on above: Performed By: #### C ALCULI #### [facility] [address] [address] [address] Adryan Faustin Calcium Palmitate Normal [facility] Comment on above: Performed By: #### C ALCULI #### [facility] [address] [address] [address] Adryan Faustin Calcium Phosphate Normal [facility] Comment on above: Performed By: #### C ALCULI #### [facility] [address] [address] [address] Adryan Faustin Calcium Stearate Normal [facility] Comment on above: Performed By: #### C ALCULI #### [facility] [address] [address] [address] Adryan Faustin Carbonate Apatite Normal [facility] Comment on above: Performed By: #### C ALCULI #### [facility] [address] [address] [address] Adryan Faustin Cellular Material Normal [facility] Comment on above: Performed By: #### C ALCULI #### [facility] [address] [address] [address] Adryan Faustin Cholesterol Normal [facility] Comment on above: Performed By: #### C ALCULI #### [facility] [address] [address] [address] Adryan Faustin Color (U) Brown Normal [facility] Comment on above: Performed By: #### C ALCULI #### [facility] [address] [address] [address] Adryan Faustin Comment Normal [facility] Comment on above: Performed By: #### C ALCULI #### [facility] [address] [address] [address] Adryan Faustin Comment: Comment Normal [facility] Comment on above: Result Comment: Alejandra sandoval questions regarding Calculi Analysis contact [employer] at: [phone]. Performed By: #### C ALCULI #### [facility] [address] [place] [address] Dr. Adryan Faustin Composition Comment [facility] Comment on above: Result Comment: Perc entage (Represents the % composition) Performed By: #### C ALCULI #### [facility] [address] [address] [address] Adryan Faustin Cystine Normal [facility] Comment on above: Performed By: #### C ALCULI #### [facility] [address] [address] [address] Adryan Faustin Disclaimer: Comment [facility] Comment on above: Result Comment: This test was developed and its performance characteristics determined by [facility]. It has not been cleared or approved by the Food and Drug Administration. Performed By: #### C ALCULI #### [facility] [address] [address] [address] Adryan Faustin Dried Blood Normal [facility] Comment on above: Performed By: #### C ALCULI #### [facility] [address] [address] [address] Adryan Faustin Drug or Metabolite Normal [facility] Comment on above: Performed By: #### C ALCULI #### [facility] [address] [address] [address] Adryan Faustin Hydroxyapatite Normal [facility] Comment on above: Performed By: #### C ALCULI #### [facility] [address] [address] [address] Adryan Faustin Mg NH4 PO4 (Struvite) [facility] Comment on above: Performed By: #### C ALCULI #### [facility] [address] [address] [address] Adryan Faustin MgHPO4 (Newberyite) Normal [facility] Comment on above: Performed By: #### C ALCULI #### [facility] [address] [address] [address] Adryan Faustin Other component(s) Normal [facility] Comment on above: Performed By: #### C ALCULI #### [facility] [address] [address] [address] Adryan Faustin PDF . Normal [facility] Comment on above: Performed By: #### C ALCULI #### [facility] [address] [address] [address] Adryan Faustin Photo Comment [facility] Comment on above: Result Comment: Phot ograph will follow under a separate cover Performed By: #### C ALCULI #### [facility] [address] [address] [address] Adryan Faustin Please note: Comment [facility] Comment on above: Result Comment: Calc gustavo report will follow via computer, mail or infertility nurse delivery. Performed By: #### C ALCULI #### [facility] [address] [address] [address] Ardyan Faustin Size 2x2 [facility] Comment on above: Result Comment: Sing le piece received. Performed By: #### C ALCULI #### [facility] [address] [address] [address] Adryan Faustin Sodium Acid Urate [facility] Comment on above: Performed By: #### C ALCULI #### [facility] [address] [address] [address] Adryan Faustin Source Comment [facility] Comment on above: Result Comment: Yogesh mejia Ureter Performed By: #### C ALCULI #### [facility] [address] [place] [address] Dr. Adryan Faustin Triamterene [facility] Comment on above: Performed By: #### C ALCULI #### [facility] [address] [place] [address] Dr. Adryan Faustin Uric Acid [facility] Comment on above: Performed By: #### C ALCULI #### [facility] [address] [place] [address] Dr. Adryan Faustin Uric Acid Dihydrate [facility] Comment on above: Performed By: #### C ALCULI #### [facility] [address] [place] [address] Dr. Adryan Faustin Weight 13 mg [facility] Comment on above: Performed By: #### C ALCULI #### [facility] [address] [place] [address] Dr. Adryan Faustin Xanthine [facility] Comment on above: Performed By: #### C ALCULI #### [facility] [address] [place] [address] Dr. Adryan Faustin PROF 14(COMP METB)on 022 Albumin [Mass/Vol] 3.4 g/dL Normal 3.4-5.0 [facility] Comment on above: Performed By: #### C MP #### [facility] [address] [place] [address] Dr. Adryan Faustin Albumin/Globulin [Mass ratio] 1.0 {ratio} [facility] Comment on above: Performed By: #### C MP #### [facility] [address] [place] [address] Dr. Adryan Faustin ALP [Catalytic activity/Vol] 54 U/L Normal 46-116 [facility] Comment on above: Performed By: #### C MP #### [facility] [address] [place] [address] Dr. Adryan Faustin ALT [Catalytic activity/Vol] 13 U/L Critically low 14-59 [facility] Comment on above: Performed By: #### C MP #### [facility] [address] [address] [address] Adryan Faustin Anion gap [Moles/Vol] 12.5 mmol/L Normal [facility] Comment on above: Performed By: #### C MP #### [facility] [address] [address] [address] Adryan Faustin AST [Catalytic activity/Vol] 18 U/L Normal 15-37 [facility] Comment on above: Performed By: #### C MP #### [facility] [address] [address] [address] Adryan Faustin Bilirubin [Mass/Vol] 0.4 mg/dL Normal 0.2-1.0 [facility] Comment on above: Performed By: #### C MP #### [facility] [address] [address] [address] Adryan Faustin Calcium [Mass/Vol] 9.0 mg/dL Normal 8.5-10.1 [facility] Comment on above: Performed By: #### C MP #### [facility] [address] [address] [address] Adryan Faustin Chloride [Moles/Vol] 106 mmol/L Normal 98-107 [facility] Comment on above: Performed By: #### C MP #### [facility] [address] [address] [address] Adryan Faustin CO2 [Moles/Vol] 25.8 mmol/L Normal 21.0-32.0 [facility] Comment on above: Performed By: #### C MP #### [facility] [address] [address] [address] Adryan Faustin Creatinine [Mass/Vol] 1.43 mg/dL Critically high 0.55-1.02 [facility] Comment on above: Performed By: #### C MP #### [facility] [address] [address] [address] Adryan Faustin EGFR-AF [place] 46 mL/min/1.73m2 Critically low >=60 [facility] Comment on above: Performed By: #### C MP #### [facility] [address] [address] [address] Adryan Faustin EGFR-NON AF [place] 38 mL/min/1.73m2 Critically low >=60 [facility] Comment on above: Performed By: #### C MP #### [facility] [address] [address] [address] Adryan Faustin Globulin (S) [Mass/Vol] 3.3 g/dL Normal [facility] Comment on above: Performed By: #### C MP #### [facility] [address] [address] [address] Adryan Faustin Glucose [Mass/Vol] 83 mg/dL Normal 74-106 [facility] Comment on above: Performed By: #### C MP #### [facility] [address] [address] [address] Adryan Faustin Potassium [Moles/Vol] 4.3 mmol/L Normal 3.5-5.1 [facility] Comment on above: Performed By: #### C MP #### [facility] [address] [address] [address] Adryan Faustin Protein [Mass/Vol] 6.7 g/dL Normal 6.4-8.2 [facility] Comment on above: Performed By: #### C MP #### [facility] [address] [address] [address] Adryan Faustin Sodium [Moles/Vol] 140 mmol/L Normal 136-145 [facility] Comment on above: Performed By: #### C MP #### [facility] [address] [address] [address] Adryan Faustin Urea nitrogen [Mass/Vol] 12.0 mg/dL Normal 7.0-18.0 [facility] Comment on above: Performed By: #### C MP #### [facility] [address] [address] [address] Adryan Faustin Urea nitrogen/Creatinine [Mass ratio] 8.4 mg/mg Normal [facility] Comment on above: Performed By: #### C MP #### [facility] [address] [place] [address] Dr. Adryan Faustin XR KUB 1 VIEWon [...] by: BRADEN LANGSTON Date: 2022-03-23 07:14 Normal [facility] Consultation Noteon 03-20-20 Consultation Note [id number] Normal [facility] PROF CHEM 8 (BAS METB)on Anion gap [Moles/Vol] 11.1 mmol/L Normal [facility] Comment on above: Performed By: #### B MP #### [facility] [address] [place] [address] Dr. Adryan Faustin Calcium [Mass/Vol] 8.3 mg/dL Critically low 8.5-10.1 [facility] Comment on above: Performed By: #### B MP #### [facility] [address] [place] [address] Dr. Adryan Faustin Chloride [Moles/Vol] 112 mmol/L Critically high 98-107 [facility] Comment on above: Performed By: #### B MP #### [facility] [address] [place] [address] Dr. Adryan Faustin CO2 [Moles/Vol] 22.8 mmol/L Normal 21.0-32.0 [facility] Comment on above: Performed By: #### B MP #### [facility] [address] [place] [address] Dr. Adryan Faustin Creatinine [Mass/Vol] 1.41 mg/dL Critically high 0.55-1.02 [facility] Comment on above: Performed By: #### B MP #### [facility] [address] [address] [address] Adryan Faustin EGFR-AF [place] 47 mL/min/1.73m2 Critically low >=60 [facility] Comment on above: Performed By: #### B MP #### [facility] [address] [address] [address] Adryan Faustin EGFR-NON AF [place] 38 mL/min/1.73m2 Critically low >=60 [facility] Comment on above: Performed By: #### B MP #### [facility] [address] [address] [address] Adryan Faustin Glucose [Mass/Vol] 82 mg/dL Normal 74-106 [facility] Comment on above: Performed By: #### B MP #### [facility] [address] [address] [address] Adryan Faustin Potassium [Moles/Vol] 4.9 mmol/L Normal 3.5-5.1 [facility] Comment on above: Performed By: #### B MP #### [facility] [address] [address] [address] Adryan Faustin Sodium [Moles/Vol] 141 mmol/L Normal 136-145 [facility] Comment on above: Performed By: #### B MP #### [facility] [address] [address] [address] Adryan Faustin Urea nitrogen [Mass/Vol] 25.0 mg/dL Critically high 7.0-18.0 [facility] Comment on above: Performed By: #### B MP #### [facility] [address] [address] [address] Adryan Faustin Urea nitrogen/Creatinine [Mass ratio] 17.7 mg/mg Normal [facility] Comment on above: Performed By: #### B MP #### [facility] [address] [address] [address] Adryan Faustin CBC AUTO DIFFon 03-19-2022 BASO # 0.1 103/ul Normal 0.0-0.1 [facility] Comment on above: Performed By: #### C BC #### [facility] [address] [address] [address] Adryan Faustin Basophils/100 WBC (Bld) 0.9 % Normal 0.2-2.0 [facility] Comment on above: Performed By: #### C BC #### [facility] [address] [address] [address] Adryan Faustin EO # 0.1 103/ul Normal 0.0-0.7 [facility] Comment on above: Performed By: #### C BC #### [facility] [address] [address] [address] Adryan Faustin Eosinophils/100 WBC (Bld) 2.3 % Normal 0.9-7.0 [facility] Comment on above: Performed By: #### C BC #### [facility] [address] [place] [address] Dr. Adryan Faustin Erythrocyte distribution width (RBC) [Ratio] 15.9 % Critically high 11.0-15.0 [facility] Comment on above: Performed By: #### C BC #### [facility] [address] [place] [address] Dr. Adryan Faustin Hematocrit (Bld) [Volume fraction] 36.9 % Normal 36.0-48.0 [facility] Comment on above: Performed By: #### C BC #### [facility] [address] [place] [address] Dr. Adryan Faustin Hemoglobin (Bld) [Mass/Vol] 11.3 g/dL Critically low 12.0-16.0 [facility] Comment on above: Performed By: #### C BC #### [facility] [address] [place] [address] Dr. Adryan Faustin IG # 0.01 10e3/ul Normal 0.00-0.03 [facility] Comment on above: Performed By: #### C BC #### [facility] [address] [place] [address] Dr. Adryan Faustin IG % 0.2 % Normal 0.0-0.5 [facility] Comment on above: Performed By: #### C BC #### [facility] [address] [address] [address] Adryan Faustin LYMPH # 1.7 103/ul Normal 1.2-3.8 [facility] Comment on above: Performed By: #### C BC #### [facility] [address] [place] [address] Dr. Adryan Faustin Lymphocytes/100 WBC (Bld) 29.6 % Normal 20.5-60.0 [facility] Comment on above: Performed By: #### C BC #### [facility] [address] [place] [address] Dr. Adryan Faustin MANUAL DIFF REQ NO Normal [facility] Comment on above: Performed By: #### C BC #### [facility] [address] [place] [address] Dr. Adryan Faustin MCH (RBC) [Entitic mass] 24.1 pg Critically low 26.7-34.0 [facility] Comment on above: Performed By: #### C BC #### [facility] [address] [place] [address] Dr. Adryan Faustin MCHC (RBC) [Mass/Vol] 30.6 g/dL Normal 29.9-35.2 [facility] Comment on above: Performed By: #### C BC #### [facility] [address] [place] [address] Dr. Adryan Faustin MCV (RBC) [Entitic vol] 78.8 fL Critically low 81.0-99.0 [facility] Comment on above: Performed By: #### C BC #### [facility] [address] [place] [address] Dr. Adryan Faustin MONO # 0.4 103/ul Normal 0.3-0.8 [facility] Comment on above: Performed By: #### C BC #### [facility] [address] [place] [address] Dr. Adryan Faustin Monocytes/100 WBC (Bld) 7.5 % Normal 1.7-12.0 [facility] Comment on above: Performed By: #### C BC #### [facility] [address] [place], [place] [id number] Dr. Adryan Faustin NEUT # 3.3 103/ul Normal 1.4-6.5 [facility] Comment on above: Performed By: #### C BC #### [facility] [address] [place] [address] Dr. Adryan Faustin Neutrophils/100 WBC (Bld) 59.5 % Normal 43.0-75.0 [facility] Comment on above: Performed By: #### C BC #### [facility] [address] [place] [address] Dr. Adryan Faustin Platelet mean volume (Bld) [Entitic vol] 8.5 fL Critically low 9.5-13.5 [facility] Comment on above: Performed By: #### C BC #### [facility] [address] [place] [address] Dr. Adryan Faustin PLT 320 103/ul Normal 150-450 [facility] Comment on above: Performed By: #### C BC #### [facility] [address] [place] [address] Dr. Adryan Faustin RBC 4.68 106/ul Normal 4.20-5.40 [facility] Comment on above: Performed By: #### C BC #### [facility] [address] [place] [address] Dr. Adryan Faustin WBC 5.6 103/ul Normal 4.0-11.0 [facility] Comment on above: Performed By: #### C BC #### [facility] [address] [place] [address] ABD/PELVIS WO CONon [...] NATACHA WILD Date: 2022-03-19 09:58 Normal [facility] CULTURE URINEon 03-19-2022 CULTURE URINE Culture Observations : NO GROWTH Normal [facility] Comment on above: Performed By: #### C ALCULI #### [facility] [address] [address] [address] Adryan Faustin Covid-19 PCR ([facility])on 02-22 SARS-CoV-2 (COVID-19) RNA GOOD+probe Ql (Unsp spec) Not detected Normal NOT DETECTED [facility] Comment on above: Result Comment: When diagnostic [...] for this test is supported by the [place] [employer] and Human Service's declaration that [...] used). Performed By: #### C ALCULI #### [facility] [address] [place] [address] Dr. Adryan Faustin ER URINE PROFILEon 2 Bilirubin Ql (U) MODERATE Abnormal NEGATIVE [facility] Comment on above: Performed By: #### E IZABELLAR UMICRO #### [facility] [address] [place] [address] Dr. Adryan Faustin Clarity (U) CLEAR Normal CLEAR [facility] Comment on above: Performed By: #### E RUR UMICRO #### [facility] [address] [place] [address] Dr. Adryan Faustin Color (U) DK. YELLOW Normal YELLOW [facility] Comment on above: Performed By: #### E MO UMICRO #### [facility] [address] [place] [address] Dr. Adryan Faustin ERUSHIRLENED A micrscopic examination will be performed if indicated. Normal [facility] Comment on above: Performed By: #### E RUR, UMICRO #### [facility] [address] [place] [address] Dr. Ardyan Faustin Glucose Ql (U) Negative Normal NEGATIVE [facility] Comment on above: Performed By: #### E RUR, UMICRO #### [facility] [address] [place] [address] Dr. Adryan Faustin Hemoglobin Ql (U) LARGE Abnormal NEGATIVE [facility] Comment on above: Performed By: #### E IZABELLAR UMICRO #### [facility] [address] [place] [address] Dr. Adryan Faustin Ketones Ql (U) TRACE Abnormal NEGATIVE [facility] Comment on above: Performed By: #### CHRISTINA MARTINRO #### [facility] [address] [place] [address] Dr. Adryan Faustin LEUKOCYTES TRACE Abnormal NEGATIVE [facility] Comment on above: Performed By: #### CHRISTINA MARTINRO #### [facility] [address] [place] [address] Dr. Adryan Faustin Nitrite Ql (U) Negative Normal NEGATIVE [facility] Comment on above: Performed By: #### VERONICA MARTIN #### [facility] [address] [place] [address] Dr. Adryan Faustin pH (U) 5.5 [pH] Normal 5-9 [facility] Comment on above: Performed By: #### VERONICA MARTIN #### [facility] [address] [place] [address] Dr. Adryan Faustin Protein (U) [Mass/Vol] 100 mg/dL Abnormal NEGAT CRISS/ TRACE [facility] Comment on above: Performed By: #### VERONICA MARTIN #### [facility] [address] [place] [address] Dr. Adryan Faustin SPEC GRAVITY >=1.030 Abnormal 1.005-<=1.02 5 [facility] Comment on above: Performed By: #### CHRISTINA MARTINRO #### [facility] [address] [place] [address] Dr. Adryan Faustin UR MICRO IND INDICATED Normal [facility] Comment on above: Performed By: #### CHRISTINA MARTINRO #### [facility] [address] [place] [address] Dr. Adryan Faustin Urobilinogen Qn (U) 1.0 {Coby'U}/dL Normal 0.2 - 1. 0 [facility] Comment on above: Performed By: #### VERONICA MARTIN #### [facility] [address] [place] [address] Dr. Adryan Faustin PROF 14(COMP METB)on 022 Albumin [Mass/Vol] 3.7 g/dL Normal 3.4-5.0 [facility] Comment on above: Performed By: #### C MP #### [facility] [address] [place] [address] Dr. Adryan Faustin Albumin/Globulin [Mass ratio] 1.0 {ratio} Normal [facility] Comment on above: Performed By: #### C MP #### [facility] [address] [place] [address] Dr. Adryan Faustin ALP [Catalytic activity/Vol] 60 U/L Normal 46-116 [facility] Comment on above: Performed By: #### C MP #### [facility] [address] [place] [address] Dr. Adryan Faustin ALT [Catalytic activity/Vol] 17 U/L Normal 14-59 [facility] Comment on above: Performed By: #### C MP #### [facility] [address] [place] [address] Dr. Adryan Faustin Anion gap [Moles/Vol] 14.6 mmol/L Normal [facility] Comment on above: Performed By: #### C MP #### [facility] [address] [place] [address] Dr. Adryan Faustin AST [Catalytic activity/Vol] 18 U/L Normal 15-37 [facility] Comment on above: Performed By: #### C MP #### [facility] [address] [place] [address] Dr. Adryan Faustin Bilirubin [Mass/Vol] 0.5 mg/dL Normal 0.2-1.0 [facility] Comment on above: Performed By: #### C MP #### [facility] [address] [place] [address] Dr. Adryan Faustin Calcium [Mass/Vol] 9.2 mg/dL Normal 8.5-10.1 [facility] Comment on above: Performed By: #### C MP #### [facility] [address] [address] [address] Adryan Faustin Chloride [Moles/Vol] 105 mmol/L Normal 98-107 [facility] Comment on above: Performed By: #### C MP #### [facility] [address] [address] [address] Adryan Faustin CO2 [Moles/Vol] 24.1 mmol/L Normal 21.0-32.0 [facility] Comment on above: Performed By: #### C MP #### [facility] [address] [address] [address] Adryan Faustin Creatinine [Mass/Vol] 1.97 mg/dL Critically high 0.55-1.02 [facility] Comment on above: Performed By: #### C MP #### [facility] [address] [address] [address] Adryan Faustin EGFR-AF [place] 32 mL/min/1.73m2 Critically low >=60 [facility] Comment on above: Performed By: #### C MP #### [facility] [address] [address] [address] Adryan Faustin EGFR-NON AF [place] 26 mL/min/1.73m2 Critically low >=60 [facility] Comment on above: Performed By: #### C MP #### [facility] [address] [address] [address] Adryan Faustin Globulin (S) [Mass/Vol] 3.8 g/dL Normal [facility] Comment on above: Performed By: #### C MP #### [facility] [address] [address] [address] Adryan Faustin Glucose [Mass/Vol] 91 mg/dL Normal 74-106 [facility] Comment on above: Performed By: #### C MP #### [facility] [address] [address] [address] Adryan Faustin Potassium [Moles/Vol] 4.7 mmol/L Normal 3.5-5.1 [facility] Comment on above: Performed By: #### C MP #### [facility] [address] [address] [address] Adryan Faustin Protein [Mass/Vol] 7.5 g/dL Normal 6.4-8.2 [facility] Comment on above: Performed By: #### C MP #### [facility] [address] [place] [address] Dr. Adryan Faustin Sodium [Moles/Vol] 139 mmol/L Normal 136-145 [facility] Comment on above: Performed By: #### C MP #### [facility] [address] [place] [address] Dr. Adryan Faustin Urea nitrogen [Mass/Vol] 32.0 mg/dL Critically high 7.0-18.0 [facility] Comment on above: Performed By: #### C MP #### [facility] [address] [place] [address] Dr. Adryan Faustin Urea nitrogen/Creatinine [Mass ratio] 16.2 mg/mg Normal [facility] Comment on above: Performed By: #### C MP #### [facility] [address] [place] [address] Dr. Adryan Faustin URINE MICROSCOPIC ONLYon BACTERIA SMALL Abnormal NONE SEEN [facility] Comment on above: Performed By: #### CHRISTINA MARTINRO #### [facility] [address] [place] [address] Dr. Adryan Faustin Bacteria identified Cx Nom (U) INDICATED Normal [facility] Comment on above: Performed By: #### CHRISTINA MARTINRO #### [facility] [address] [place] [address] Dr. Adryan Faustin CAST NONE SEEN Normal NONE SEEN [facility] Comment on above: Performed By: #### Ghada HASSAN UMICRO #### [facility] [address] [place] [address] Dr. Adryan Faustin Crystals LM Nom (Urine sed) NONE SEEN Normal NONE SEEN [facility] Comment on above: Performed By: #### Ghada HASSAN UMICRO #### [facility] [address] [place] [address] Dr. Adryan Faustin Epithelial cells LM Ql (Urine sed) FEW Abnormal NONE SEEN /RARE [facility] Comment on above: Performed By: #### E RUR, UMICRO #### [facility] [address] [address] [address] Adryan Faustin MUCOUS NONE SEEN Normal NONE SEEN [facility] Comment on above: Performed By: #### E RUR, UMICRO #### [facility] [address] [address] [address] Adryan Faustin RBC 75-100 Abnormal 0-2 [facility] Comment on above: Performed By: #### E RUR, UMICRO #### [facility] [address] [address] [address] Adryan Faustin WBC 5-10 Abnormal NONE SEEN [facility] Comment on above: Performed By: #### E RUR, UMICRO #### [facility] [address] [place] [address] Dr. Adryan Faustin MICROALBUMIN/ CREATININE RAT IOon 02-04-2022 Albumin, Urine 21.0 ug/mL Normal Not Estab. [facility] Comment on above: Performed By: #### M ALBCRL #### [facility] [address] [address] [address] Adryan Faustin Albumin/ Creatinine Ratio 18 mg/g creat Normal 0-29 [facility] Comment on above: Result Comment: Norm al: 0 - 29 Moderately increased: 30 - 300 Severely increased: >300 Performed By: #### M ALBCRL #### [facility] [address] [address] [address] Adryan Faustin Creatinine, Urine 116.4 mg/dL Normal Not Estab. [facility] Comment on above: Performed By: #### M ALBCRL #### [facility] [address] [address] [address] Adryan Faustin GLYCOHEMOGLOBIN A1Con 2021 ADA RECOMMENDATION SEE BELOW Normal [facility] Comment on above: Result Comment: ADA RECOMMENDED LIMIT 4.0 - 6.0 ADA THERAPEUTIC TARGET < 7.0 ACTION SUGGESTED > 7.0 Performed By: #### C ALCULI #### [facility] [address] [address] [address] Adryan Faustin Glucose [Mass/Vol] 128 mg/dL Normal [facility] Comment on above: Performed By: #### C ALCULI #### [facility] [address] [address] [address] Adryan Faustin HbA1c (Bld) [Mass fraction] 6.1 % Normal 4.5-6.2 [facility] Comment on above: Performed By: #### C ALCULI #### [facility] [address] [address] [address] Adryan Faustin LIPID PROFILEon 02-03-2022 CHOL-HDL RATIO NORM SEE BELOW Normal [facility] Comment on above: Result Comment: 3.3 - 4.4 LOW RISK 4.4 - 7.1 AVERAGE RISK 7.1 - 11.0 MODERATE RISK >11.0 HIGH RISK Performed By: #### L IPID, CMP #### [facility] [address] [place] [address] Dr. Adryan Faustin Cholesterol [Mass/Vol] 175 mg/dL Normal <=200 [facility] Comment on above: Performed By: #### L IPID, CMP #### [facility] [address] [address] [address] Adryan Faustin Cholesterol in HDL [Mass/Vol] 51 mg/dL Normal 40-60 [facility] Comment on above: Performed By: #### L IPID, CMP #### [facility] [address] [address] [address] Adryan Faustin Cholesterol in LDL [Mass/Vol] 113.6 mg/dL Normal [facility] Comment on above: Performed By: #### L IPID, CMP #### [facility] [address] [address] [address] Adryan Faustin Cholesterol.total/Chol esterol in HDL [Mass ratio] 3.4 {ratio} Normal [facility] Comment on above: Performed By: #### L IPID, CMP #### [facility] [address] [address] [address] Adryan Faustin HDL NORMAL > or = 60 mg/dl - LO W CARDIOVASCULAR RISK <40 mg/dl - HIGH CARDIOVASCULAR RISK Normal [facility] Comment on above: Performed By: #### L IPID, CMP #### [facility] [address] [place] [address] Dr. Adryan Faustin LDL CALC NORMAL SEE BELOW Normal [facility] Comment on above: Result Comment: <100 mg/dl OPTIMAL 100 - 129 mg/dl NEAR OR ABOVE OPTIMAL 130 - 159 mg/dl BORDERLINE HIGH 160 - 189 mg/dl HIGH >190 mg/dl VERY HIGH Performed By: #### L IPID, CMP #### [facility] [address] [address] [address] Adryan Faustin Triglyceride [Mass/Vol] 52 mg/dL Normal <=150 [facility] Comment on above: Performed By: #### L IPID, CMP #### [facility] [address] [place] [address] Dr. Adryan Faustin VLDL CALC 10.4 mg/dL Normal [facility] Comment on above: Performed By: #### L IPID, CMP #### [facility] [address] [place] [address] Dr. Adryan Faustin PROF 14(COMP METB)on 022 Albumin [Mass/Vol] 3.2 g/dL Critically low 3.4-5.0 [facility] Comment on above: Performed By: #### L IPID, CMP #### [facility] [address] [place] [address] Dr. Adryan Faustin Albumin/Globulin [Mass ratio] 0.9 {ratio} Normal [facility] Comment on above: Performed By: #### L IPID, CMP #### [facility] [address] [place] [address] Dr. Adryan Faustin ALP [Catalytic activity/Vol] 76 U/L Normal 46-116 [facility] Comment on above: Performed By: #### L IPID, CMP #### [facility] [address] [place] [address] Dr. Adryan Faustin ALT [Catalytic activity/Vol] 10 U/L Critically low 14-59 [facility] Comment on above: Performed By: #### L IPID, CMP #### [facility] [address] [address] [address] Adryan Faustin Anion gap [Moles/Vol] 12.2 mmol/L Normal [facility] Comment on above: Performed By: #### L IPID, CMP #### [facility] [address] [address] [address] Adryan Faustin AST [Catalytic activity/Vol] 15 U/L Normal 15-37 [facility] Comment on above: Performed By: #### L IPID, CMP #### [facility] [address] [address] [address] Adryan Faustin Bilirubin [Mass/Vol] 0.4 mg/dL Normal 0.2-1.0 [facility] Comment on above: Performed By: #### L IPID, CMP #### [facility] [address] [place] [address] Dr. Adryan Faustin Calcium [Mass/Vol] 9.0 mg/dL Normal 8.5-10.1 [facility] Comment on above: Performed By: #### L IPID, CMP #### [facility] [address] [address] [address] Adryan Faustin Chloride [Moles/Vol] 106 mmol/L Normal 98-107 [facility] Comment on above: Performed By: #### L IPID, CMP #### [facility] [address] [address] [address] Adryan Faustin CO2 [Moles/Vol] 27.6 mmol/L Normal 21.0-32.0 [facility] Comment on above: Performed By: #### L IPID, CMP #### [facility] [address] [address] [address] Adryan Faustin Creatinine [Mass/Vol] 1.17 mg/dL Critically high 0.55-1.02 [facility] Comment on above: Performed By: #### L IPID, CMP #### [facility] [address] [address] [address] Adryan Faustin EGFR-AF [place] 58 mL/min/1.73m2 Critically low >=60 [facility] Comment on above: Performed By: #### L IPID, CMP #### [facility] [address] [address] [address] Adryan Faustin EGFR-NON AF [place] 48 mL/min/1.73m2 Critically low >=60 [facility] Comment on above: Performed By: #### L IPID, CMP #### [facility] [address] [address] [address] Adryan Faustin Globulin (S) [Mass/Vol] 3.7 g/dL Normal [facility] Comment on above: Performed By: #### L IPID, CMP #### [facility] [address] [address] [address] Adryan Faustin Glucose [Mass/Vol] 86 mg/dL Normal 74-106 [facility] Comment on above: Performed By: #### L IPID, CMP #### [facility] [address] [place] [address] Dr. Adryan Faustin Potassium [Moles/Vol] 4.8 mmol/L Normal 3.5-5.1 [facility] Comment on above: Performed By: #### L IPID, CMP #### [facility] [address] [place] [address] Dr. Adryan Faustin Protein [Mass/Vol] 6.9 g/dL Normal 6.4-8.2 [facility] Comment on above: Performed By: #### L IPID, CMP #### [facility] [address] [place] [address] Dr. Adryan Faustin Sodium [Moles/Vol] 141 mmol/L Normal 136-145 [facility] Comment on above: Performed By: #### L IPID, CMP #### [facility] [address] [address] [address] Adryan Faustin Urea nitrogen [Mass/Vol] 13.0 mg/dL Normal 7.0-18.0 [facility] Comment on above: Performed By: #### L IPID, CMP #### [facility] [address] [address] [address] Adryan Faustin Urea nitrogen/Creatinine [Mass ratio] 11.1 mg/mg Normal [facility] Comment on above: Performed By: #### L IPID, [facility] #### [facility] [address] [address] [address] Adryan Faustin US JUMANA DOP LEG [...] by: NATACHA WILD Date: 2022-02-02 11:46 Normal [facility] [id number] 07-25-2020 SARS-CoV-2 Not Detected Normal [facility] Comment on above: Result Comment: The [...] this assay. Fact sheet for Healthcare Providers: https://www.fda.gov/media/201480/download Fact sheet for Patients: https://www.fda.gov/media/222585/download METHODOLOGY: RT-PCR Performed By: #### A COV #### [facility] [address] [place] [address] [employer] Log: Hugo Welch MD SARS-CoV-2 [facility] Comment on above: Performed By: #### A COV #### [facility] [address] [place] [address] [employer] Log: Hugo Welch MD [id number] 07-24-2020 SARS-CoV-2 Source .NASOPHARYNGEAL SWAB [facility] Comment on above: Performed By: #### A COV #### [facility] [address] [place] [address] [employer] Log: Hugo Welch MD [id number] 07-18-2020 SARS-CoV-2 Not Detected [facility] Comment on above: Result Comment: The [...] this assay. Fact sheet for Healthcare Providers: https://www.fda.gov/media/585883/download Fact sheet for Patients: https://www.fda.gov/media/208161/download METHODOLOGY: RT-PCR Performed By: #### C OVID #### [address] [address] [employer] Log: Ankush Moser MD SARS-CoV-2 [facility] Comment on above: Performed By: #### C OVID #### [address] [place], [place] [id number] [employer] Log: Ankush Moser MD [id number] 07-17-2020 SARS-CoV-2 Source .NASOPHARYNGEAL SWAB Normal [facility] Comment on above: Performed By: #### C OVID #### [address] [id number] [employer] Log: Ankush Moser MD [id number] 07-01-2020 SARS-CoV-2 Not Detected Normal [facility] Comment on above: Result Comment: The specimen is NEGATIVE for SARS-CoV-2, the novel coronavirus associated with COVID-19. A negative result does not rule out COVID-19. [employer] SARS-CoV-2 for use on the [employer] is a real-time RT-PCR test intended [...] this assay. Fact sheet for Healthcare Providers: https://www.fda.gov/media/262054/download Fact sheet for Patients: https://www.fda.gov/media/028827/download METHODOLOGY: RT-PCR Performed By: #### C OVID #### [address] [id number] [employer] Log: Ankush Moser MD SARS-CoV-2 [facility] Comment on above: Performed By: #### C OVID #### [address] [place] [address] [employer] Log: Ankush Moser MD SARS-CoV-2,Rapid [facility] Comment on above: Performed By: #### C OVID #### [address] [id number] [employer] Log: Ankush Moser MD [id number] 06-29-2020 SARS-CoV-2 Source .NASOPHARYNGEAL SWAB [facility] Comment on above: Performed By: #### C OVID #### [address] [address] [employer] Log: MD TOYIN Coronado-CoV-2on 06-16-2020 SARS-CoV-2 [facility] Comment on above: Performed By: #### C OVID #### [address] [address] [employer] Log: Ankush Moser MD SARS-CoV-2 Not Detected [place] [facility] Comment on above: Result Comment: The specimen is NEGATIVE for SARS-CoV-2, the novel coronavirus associated with COVID-19. A negative result does not rule out COVID-19. Teodoro SARS-CoV-2 for use on the [employer] is a real-time RT-PCR test intended [...] this assay. Fact sheet for Healthcare Providers: https://www.fda.gov/media/397108/download Fact sheet for Patients: https://www.fda.gov/media/217812/download METHODOLOGY: RT-PCR Performed By: #### C OVID #### [address] [place], [place] [id number] [employer] Log: Ankush Moser MD SARS-CoV-2,Rapid Normal [facility] Comment on above: Performed By: #### C OVID #### [facility] [address] [place] [id number] [employer] Log: Ankush Moser MD [id number] 06-14-2020 SARS-CoV-2 Source .NASOPHARYNGEAL SWAB Normal [facility] Comment on above: Performed By: #### C OVID #### [address] [id number] [employer] Log: Ankush Moser MD [id number] 06-02-2020 SARS-CoV-2 Not Detected Normal Not Detected [facility] Comment on above: Result Comment: (NOT E) This nucleic acid amplification test was developed and its performance characteristics determined by [employer]. Nucleic acid amplification tests include PCR and [...] detected) result in this assay. Performed At: [address] [address] [place] [id number] Camryn Nieto MD Ph:[phone] Performed By: #### A COV #### [facility] [address] [place] [address] [employer] Log: uHgo Welch MD [id number] 05-25-2020 SARS-CoV-2 Not Detected Normal Not Detected [facility] Comment on above: Result Comment: (NOT E) This nucleic acid amplification test was developed and its performance characteristics determined by [employer]. Nucleic acid amplification tests include PCR and [...] detected) result in this assay. Performed At: [facility] [place] [address] [place], [place] [id number] Camryn Nieto MD Ph:[phone] Performed By: #### A COV #### [facility] [address] [place] [address] [employer] Log: Hugo Welch MD [id number] 05-10-2020 SARS-CoV-2 Not Detected Normal Not Detected [facility] Comment on above: Result Comment: (NOT E) This nucleic acid amplification test was developed and its performance characteristics determined by [employer]. Nucleic acid amplification tests include PCR and [...] detected) result in this assay. Performed At: [facility] [address] [employer] [facility] [place] [id number] Camryn Nieto MD Ph:[phone] Performed By: #### A COV #### [facility] [address] [place] [address] [employer] Log: Hugo Welch MD [id number] 05-04-2020 SARS-CoV-2 Not Detected Normal Not Detected [facility] Comment on above: Result Comment: (NOT E) This nucleic acid amplification test was developed and its performance characteristics determined by [employer]. Nucleic acid amplification tests include PCR and [...] detected) result in this assay. Performed At: [facility] [address] [place], [place] [id number] Jefry Shirley PhD Ph:[phone] Performed By: #### A COV #### [facility] [address] [place] [address] [employer] Log: Hugo Welch MD [id number] 04-13-2020 SARS-CoV-2 Not Detected Normal Not Detected [facility] Comment on above: Result Comment: (NOT E) This nucleic acid amplification test was developed and its performance characteristics determined by [employer]. Nucleic acid amplification tests include PCR and [...] detected) result in this assay. Performed At: [facility] [place] [place] [address] [employer] [facility] [place] [id number] Camryn Nieto MD Ph:[phone] Performed By: #### A COV #### [facility] [address] [place] [address] [employer] Log: Hugo Welch MD [id number] 03-16-2020 SARS-CoV-2 Not Detected Normal Not Detected [facility] Comment on above: Result Comment: (NOT E) This nucleic acid amplification test was developed and its performance characteristics determined by [employer]. Nucleic acid amplification tests include PCR and [...] this assay. Performed At: [facility] [address] [place], [place] [id number] Nick Alexander [facility] Ph:[phone] Performed By: #### A COV #### [facility] [address] [place], [place] [id number] [employer] Log: Hugo Welch MD [id number] 03-05-2020 SARS-CoV-2 Not Detected Normal Not Detected [facility] Comment on above: Result Comment: (NOT E) This nucleic acid amplification test was developed and its performance characteristics determined by [employer]. Nucleic acid amplification tests include PCR and [...] detected) result in this assay. Performed At: [facility] [address] [employer] [facility] [place] [id number] Camryn Nieto MD Ph:[phone] Performed By: #### A COV #### [facility] [address] [place] [address] [employer] Log: Hugo Welch MD Vital Signs Date Time Vital Sign Value Performing Clinician Facility 06-21-2023 10:55-0500 Body height 160 cm Justin Marley MD Work Phone: [facility] 06-21-2023 10:55-0500 Body mass index (BMI) [Ratio] 22.67 kg/m2 Justin Marley MD Work Phone: [facility] 06-21-2023 10:55-0500 Body weight 58.06 kg Justin Marley MD Work Phone: [facility] 06-21-2023 10:55-0500 Diastolic blood pressure 74 mm[Hg] Jusitn Marley MD Work Phone: [facility] 06-21-2023 10:55-0500 Heart rate 82 /min Justin Marley MD Work Phone: [facility] 06-21-2023 10:55-0500 SaO2% (BldA) [Mass fraction] 96 % Justin Marley MD Work Phone: [facility] 06-21-2023 10:55-0500 Systolic blood pressure 126 mm[Hg] Justin Marley MD Work Phone: [facility] 09-28-2022 13:04-0400 Body height 160 cm Marley RODGERS-C Work Phone: [facility] 09-28-2022 13:04-0400 Body weight 60.78 kg Marley Brown PA-C Work Phone: [facility] 09-28-2022 13:04-0400 Diastolic blood pressure 79 mm[Hg] Marley O Larisa PA-C Work Phone: [facility] 09-28-2022 13:04-0400 Heart rate 75 /min Marley O Larisa PA-C Work Phone: [facility] 09-28-2022 13:04-0400 Systolic blood pressure 119 mm[Hg] Marley O Larisa PA-C Work Phone: [facility] 09-07-2022 08:55-0400 Body weight 60.78 kg Marley O Larisa PA-C Work Phone: [facility] 09-07-2022 08:55-0400 Diastolic blood pressure 69 mm[Hg] Marley O Larisa PA-C Work Phone: [facility] 09-07-2022 08:55-0400 Heart rate 77 /min Marley O Larisa PA-C Work Phone: [facility] 09-07-2022 08:55-0400 Systolic blood pressure 103 mm[Hg] Marley O Larisa PA-C Work Phone: [facility] 07-14-2022 10:21-0500 Body height 157.9 cm Samy Odonnell MD Work Phone: [facility] 07-14-2022 10:21-0500 Body weight 62.32 kg Samy Odonnell MD Work Phone: [facility] 07-14-2022 10:21-0500 Diastolic blood pressure 80 mm[Hg] Samy Odonnell MD Work Phone: [facility] 07-14-2022 10:21-0500 Heart rate 84 /min Samy Odonnell MD Work Phone: [facility] 07-14-2022 10:21-0500 Systolic blood pressure 121 mm[Hg] Samy Odonnell MD Work Phone: [facility] 07-07-2022 09:14-0500 Blood Pressure Location Chalo KULWANT [facility] 07-07-2022 09:14-0500 Diastolic blood pressure 86 mm[Hg] Chalo COOK [facility] 07-07-2022 09:14-0500 Heart rate 76 /min Chalo COOK [facility] 07-07-2022 09:14-0500 Systolic blood pressure 115 mm[Hg] Chalo COOK [facility] 06-18-2022 13:16-0500 Heart rate 82 /min Chalo COOK [facility] 06-18-2022 13:16-0500 SaO2% (BldA) [Mass fraction] 99 % Chalo COOK [facility] 06-18-2022 13:16-0500 Respiratory rate 16 /min Chalo COOK [facility] 06-18-2022 13:15-0500 Body temperature 97.34 [degF] Chalo COOK [facility] 06-18-2022 13:15-0500 Diastolic blood pressure 84 mm[Hg] Chalo COOK [facility] 06-18-2022 13:15-0500 Mean blood pressure 101 mm[Hg] Chalo COOK [facility] 06-18-2022 13:15-0500 Systolic blood pressure 133 mm[Hg] Chalo COOK [facility] 06-18-2022 12:25-0500 Blood Pressure Location Chalo COOK [facility] 06-18-2022 12:25-0500 Diastolic blood pressure 87 mm[Hg] Chalo COOK [facility] 06-18-2022 12:25-0500 Heart rate 75 /min Chalo COOK [facility] 06-18-2022 12:25-0500 Mean blood pressure 104 mm[Hg] Chalo COOK [facility] 06-18-2022 12:25-0500 Respiratory rate 16 /min Chalo COOK [facility] 06-18-2022 12:25-0500 SaO2% (BldA) [Mass fraction] 100 % Chalo COOK [facility] 06-18-2022 12:25-0500 Systolic blood pressure 137 mm[Hg] Chalo COOK [facility] 06-18-2022 12:20-0500 Body temperature 97.88 [degF] Chalo COOK [facility] 06-18-2022 12:20-0500 Diastolic blood pressure 77 mm[Hg] Chalo COOK [facility] 06-18-2022 12:20-0500 Heart rate 73 /min Chalo COOK [facility] 06-18-2022 12:20-0500 Mean blood pressure 97 mm[Hg] Chalo COOK [facility] 06-18-2022 12:20-0500 Respiratory rate 19 /min Chalo COOK [facility] 06-18-2022 12:20-0500 SaO2% (BldA) [Mass fraction] 100 % Chalo COOK [facility] 06-18-2022 12:20-0500 Systolic blood pressure 136 mm[Hg] Chalo COOK [facility] 06-18-2022 12:10-0500 Mean blood pressure 97 mm[Hg] Chalo COOK [facility] 06-18-2022 12:10-0500 Respiratory rate 17 /min Chalo COOK [facility] 06-18-2022 12:05-0500 Respiratory rate 17 /min Chalo COOK [facility] 06-18-2022 11:55-0500 Body temperature 97.34 [degF] Chalo COOK [facility] 06-18-2022 11:50-0500 Respiratory rate 6 /min Chalo COOK [facility] 06-18-2022 09:30-0500 Mean blood pressure 96 mm[Hg] Chalo COOK [facility] 06-18-2022 09:30-0500 Heart rate 78 /min Chalo COOK [facility] 06-18-2022 09:29-0500 Body temperature 97.7 [degF] Chalo COOK [facility] 06-18-2022 09:29-0500 Mean blood pressure 105 mm[Hg] Chalo COOK [facility] 06-11-2022 09:32-0500 Diastolic blood pressure 86 mm[Hg] Chalo COOK [facility] 06-11-2022 09:32-0500 Heart rate 79 /min Chalo COOK [facility] 06-11-2022 09:32-0500 Mean blood pressure 104 mm[Hg] Chalo COOK [facility] 06-11-2022 09:32-0500 Systolic blood pressure 138 mm[Hg] Chalo COOK [facility] 06-11-2022 09:32-0500 Heart rate 85 /min Chalo COOK [facility] 06-11-2022 09:32-0500 SaO2% (BldA) [Mass fraction] 98 % Chalo BLUM [facility] 06-11-2022 09:32-0500 Blood Pressure Location Chalo BLUM [facility] 06-11-2022 09:32-0500 Body temperature 97.34 [degF] Chalo BLUM [facility] 06-11-2022 09:31-0500 Diastolic blood pressure 84 mm[Hg] Chalo BLUM [facility] 06-11-2022 09:31-0500 Mean blood pressure 106 mm[Hg] Chalo BLUM [facility] 06-11-2022 09:31-0500 Systolic blood pressure 149 mm[Hg] Chalo BLUM [facility] 06-11-2022 09:31-0500 Blood Pressure Location Chalo BLUM [facility] 05-05-2022 15:50-0500 Diastolic blood pressure 80 mm[Hg] Balbina Napoles Work Phone: [facility] [address] 250 DO Work Phone: 05-05-2022 15:50-0500 Systolic blood pressure 98 mm[Hg] Balbina Napoles Work Phone: [facility] 250 DO Work Phone: 05-05-2022 15:49-0500 Body [...] Napoles Work Phone: [facility] 250 DO Work Phone: 05-05-2022 15:49-0500 Diastolic blood pressure 64 mm[Hg] Balbina Napoles Work Phone: [facility] 250 DO Work Phone: 05-05-2022 15:49-0500 Heart rate 128 /min Balbina Napoles Work Phone: [facility] 250 DO Work Phone: 05-05-2022 15:49-0500 Systolic blood pressure 92 mm[Hg] Balbina Naoples Work Phone: [facility] 250 DO Work Phone: 04-17-2022 07:26-0500 Diastolic blood pressure 72 mm[Hg] Chalo BLUM [facility] 04-17-2022 07:26-0500 Heart rate 86 /min Chalo BLUM [facility] 04-17-2022 07:26-0500 Mean blood pressure 85 mm[Hg] Chalo BLUM [facility] 04-17-2022 07:26-0500 Systolic blood pressure 109 mm[Hg] Chalo BLUM [facility] 04-17-2022 07:25-0500 Body temperature 98.42 [degF] Chalo BLUM [facility] 04-17-2022 07:25-0500 Diastolic blood pressure 68 mm[Hg] Chalo COOK [facility] 04-17-2022 07:25-0500 Heart rate 82 /min Chalo COOK [facility] 04-17-2022 07:25-0500 Mean blood pressure 82 mm[Hg] Chalo COOK [facility] 04-17-2022 07:25-0500 Respiratory rate 16 /min Chalo COOK [facility] 04-17-2022 07:25-0500 SaO2% (BldA) [Mass fraction] 96 % Chalo BLUM [facility] 04-17-2022 07:25-0500 Systolic blood pressure 111 mm[Hg] Chalo BLUM [facility] 03-31-2022 13:11-0500 Blood Pressure Location Chalo COOK [facility] 03-31-2022 13:11-0500 Diastolic blood pressure 87 mm[Hg] Chalo COOK [facility] 03-31-2022 13:11-0500 Heart rate 79 /min Chalo BLUM [facility] 03-31-2022 13:11-0500 Systolic blood pressure 125 mm[Hg] Chalo COOK [facility] 03-23-2022 17:30-0400 Body height 160.02 cm Balbina Napoles Other [facility] Other 03-23-2022 17:30-0400 Body mass index (BMI) [Ratio] 29.76 kg/m2 Balbina Napoles Other [facility] Other 03-23-2022 17:30-0400 Body temperature 98.1 [degF] Balbina Napoles Other [facility] Other 03-23-2022 17:30-0400 Body weight 76.2 kg Balbina Napoles Other [facility] Other 03-23-2022 17:30-0400 Diastolic blood pressure 88 mm[Hg] Balbina Napoles Other [facility] Other 03-23-2022 17:30-0400 Respiratory rate 18 /min Balbina Napoles Other [facility] Other 03-23-2022 17:30-0400 SaO2% (BldA) [Mass fraction] 98 % Balbina Napoles Other [facility] Other 03-23-2022 17:30-0400 Systolic blood pressure 127 mm[Hg] Balbina Napoles Other [facility] Other 02-02-2022 17:30-0400 Body height 160.02 cm Balbina Napoles Other [facility] Other 02-02-2022 17:30-0400 Body mass index (BMI) [Ratio] 32.06 kg/m2 Balbina Napoles Other [facility] Other 02-02-2022 17:30-0400 Body temperature 98.6 [degF] Balbina Napoles Other [facility] Other 02-02-2022 17:30-0400 Body weight 82.1 kg Balbina Napoles Other [facility] Other 02-02-2022 17:30-0400 Diastolic blood pressure 96 mm[Hg] Balbina Napoles Other [facility] Other 02-02-2022 17:30-0400 Respiratory rate 17 /min Balbina Napoles Other [facility] Other 02-02-2022 17:30-0400 SaO2% (BldA) [Mass fraction] 98 % Balbina Napoles Other [facility] Other 02-02-2022 17:30-0400 Systolic blood pressure 152 mm[Hg] Balbina Napoles Other [facility] Other Encounters Encounter Date Encounter Type Care [...] Start: 04-26-2023 End: 04-26-2023 ambulatory SAMY ODONNELL Facility:[facility] Start: 04-26-2023 End: 04-26-2023 Subsequent hospital visit by physician Us Tam A21 5 Work Phone: Radiology Comment on above: Nephrolithiasis [N20 .0] Start: 10-21-2022 End: 10-22-2022 ambulatory SAMY ODONNELL Facility:[facility] Start: 10-21-2022 End: 10-21-2022 Patient encounter procedure Samy Odonnell MD Work Phone: Urology Comment on above: Nephrolithiasis (Evette raúl Dx); Hyperoxaluria; Hypernatriuria; Hypocitraturia; Low urine output Start: 10-20-2022 Orders Only Samy Odonnell MD Work Phone: Urology Start: 10-12-2022 End: 10-12-2022 ambulatory SAMY ODONNELL Facility:[facility] Start: 09-28-2022 End: 09-29-2022 ambulatory Marley [...] Start: 09-21-2022 End: 09-21-2022 ambulatory MARLEY O'LARISA Facility:[facility] Start: 09-18-2022 Orders Only Samy Odonnell MD Work Phone: Urology Comment on above: Nephrolithiasis (Evette raúl Dx); Abnormal urinalysis Start: 09-16-2022 End: 09-17-2022 ambulatory SAMY ODONNELL Facility:[facility] Start: 09-16-2022 End: 09-16-2022 Patient encounter procedure Samy Odonnell MD Work Phone: Urology Comment on above: Nephrolithiasis (Evette raúl Dx) Start: 09-14-2022 Orders Only Samy Odonnell MD Work Phone: Urology Start: 09-07-2022 End: 09-08-2022 ambulatory Marley Brown PA-C Work Phone: Urology Start: 09-07-2022 Encounter for other preprocedural examination MARLEY MERCADOUE [facility] Start: 09-07-2022 End: 09-07-2022 Patient encounter [...] West RN U rology 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 Start: 08-12-2022 ambulatory Samy Odonnell MD Work Phone: Urology Comment on above: Renal scan 07/30/22 Start: 08-12-2022 E-mail encounter fro m caregiver Samy Odonnell MD Work Phone: [facility] Start: 07-30-2022 ambulatory SAMY ODONNELL Facility:[facility] Start: 07-30-2022 End: 07-30-2022 Subsequent hospital visit by physician [facility] Work Phone: [facility] Comment on above: Hydronephrosis with urinary obstruction [...] Start: 07-07-2022 End: 07-08-2022 ambulatory BALBINA NAPOLES Facility:[facility] Start: 07-07-2022 End: 07-07-2022 Patient encounter procedure Chalo BLUM [facility] Start: 07-06-2022 End: 07-06-2022 ambulatory Chalo Blum Facility:[facility] Start: 07-06-2022 End: 07-06-2022 ambulatory CURRICULUM AND ASSESSMENT DIRECTOR-C Balbina Napoles Work Phone: [facility] Work Phone: Start: 07-06-2022 End: 07-06-2022 Patient encounter procedure CURRICULUM AND ASSESSMENT DIRECTOR-C Balbina Napoles Work Phone: [facility] Work Phone: Start: 06-18-2022 End: 06-18-2022 ambulatory Chalo BLUM Facility[facility] Start: 06-18-2022 End: 06-18-2022 Admission to same day surgery center Chalo BLUM [facility] Start: 06-11-2022 End: 06-12-2022 ambulatory Chalo BLUM Facility:[facility] Start: 06-11-2022 End: 06-11-2022 Patient encounter procedure Chalo BLUM [facility] Start: 05-07-2022 End: 05-07-2022 ambulatory Irina Mao Other [facility] Other Start: 05-07-2022 Telephone encounter Irina Cavanaugh [employer] Start: 05-05-2022 Office consultation new/estab patient 60 min Balbina Napoles Work Phone: [facility] 250 DO Work Phone: Start: 04-17-2022 End: 04-18-2022 ambulatory Chalo BLUM Facility[facility] Start: 04-17-2022 End: 04-17-2022 Patient encounter procedure Chalo BLUM [facility] Start: 04-01-2022 ambulatory Chalo BLUM Facility : [place] Start: 03-31-2022 End: 04-01-2022 ambulatory Chalo BLUM Facility:[facility] Start: 03-31-2022 End: 05-01-2022 Pre-admission assessment Chalo BLUM [facility] Start: 03-31-2022 End: 03-31-2022 Patient encounter procedure Chalo BLUM [facility] Start: 03-31-2022 End: 04-01-[address] CHALO BLUM Facility:[facility] Start: 03-24-2022 End: 03-25-2022 ambulatory BALBINA NAPOLES Facility:[facility] Start: 03-23-2022 End: 03-23-2022 ambulatory Balbina Napoles Other [facility] Other Start: 03-23-2022 Office outpatient vi sit [...] outpatient vi sit 15 minutes Balbina Napoles [facility] [place] Start: 02-02-2022 End: 02-02-2022 ambulatory BALBINA NAPOLES [facility] Other Start: 12-24-2021 End: 12-24-2021 ambulatory Balbina Napoles Other [facility] Other Start: 12-24-2021 Telephone encounter Balbina mejia [facility] [place] Start: 07-24-2020 End: 07-25-2020 Patient encounter procedure JANICEROD MARTINEZ [facility] Start: 07-24-2020 End: 07-24-2020 Subsequent hospital visit by physician JOSEPH DUQUE DOCTOR Start: 07-17-2020 End: 07-18-2020 Patient encounter procedure JNAICEGhada MARTINEZ [facility] Start: 07-17-2020 End: 07-17-2020 Subsequent hospital visit by physician JOSEPH DUQUE DOCTOR Start: 06-29-2020 End: 06-30-2020 Patient encounter [facility] Start: 06-13-2020 End: 06-14-2020 Patient encounter procedure [facility]ANICEGhada [facility] Start: 06-13-2020 End: 06-13-2020 Subsequent hospital visit by physician JOSEPH DUQUE DOCTOR Start: 05-30-2020 End: 05-31-2020 Patient encounter procedure JANICEGhada [facility]ARTINEZ [facility] Start: 05-30-2020 End: 05-30-2020 Subsequent hospital visit by physician JOSEPH MARTINEZ Start: 05-22-2020 End: 05-23-2020 Patient encounter procedure MARCELINO Amaya [facility] Start: 05-22-2020 End: 05-22-2020 Subsequent hospital visit by physician JOSEPH DUQUE DOCTOR Start: 05-09-2020 End: 05-10-2020 Patient encounter procedure [facility]OD [facility] Start: 05-09-2020 End: 05-09-2020 Subsequent hospital visit by physician JOSEPH DUQUE DOCTOR Start: 05-02-2020 End: 05-03-2020 Patient encounter procedure MARCELINO [facility] Start: 05-02-2020 End: 05-02-2020 Subsequent hospital visit by physician JOSEPH MARTINEZ Start: 04-25-2020 End: 04-26-2020 Patient encounter procedure [facility]AN[facility]EROD [facility] Start: 04-25-2020 End: 04-25-2020 Subsequent hospital visit by physician JOSEPH MARTINEZ Start: 04-10-2020 End: 04-11-2020 Patient encounter procedure MARCELINO [facility]INEZ [facility] Start: 04-10-2020 End: 04-10-2020 Subsequent hospital visit by physician JOSEPH MARTINEZ Start: 03-12-2020 End: 03-13-2020 Patient encounter procedure JANICEROD [facility]ARTINEZ [facility] Start: 03-12-2020 End: 03-12-2020 Subsequent hospital visit by physician JOSEPH DUQUE DOCTOR Start: 03-01-2020 End: 03-02-2020 Patient encounter procedure JANICEROD [facility]ARTINEZ [facility] Start: 03-01-2020 End: 03-01-2020 Subsequent hospital visit by physician JOSEPH DUQUE DOCTOR Patient encounter status Wilder Napoles Work Phone: -[place] [phone] DO Work Phone: Procedures Date Procedure Procedure [...] Speci men Type: BLOOD SPECIMEN Ordering Facility: [facility] Address: [address] [place] [address] Performed By: #### T [id number] #### [facility] CLIA [id number] [place] Start: 07-06-2022 Diagnostic radiograp hy of abdomen CURRICULUM AND ASSESSMENT DIRECTOR-C Balbina Napoles Work Phone: Start: 06-18-2022 Extracorporeal [...] MD Work Phone: Bypass of stomach Chalo OMRE Decompression of med corry nerve Balbina Napoles Work Phone: Esophagogastrostomy, antesternal or antethoracic Balbina Napoles Work Phone: Hysterectomy Chalo BLUM Insertion of stent i nto urethra Balbina Napoles Work Phone: NEGATED: Highlighted row has not occurred! Colonoscopy Balbina mejia Work Phone: Plan of Treatment Date Care Activity Detail Author Start: 09-28-2025 DIABETES SCREEN DIABETES SCREEN [facility] Start: 09-28-2025 Diabetes Screening Diabetes Screenin g [facility] Start: 07-14-2025 DIABETES SCREEN DIABETES SCREEN [facility] Start: 07-15-2023 End: 07-15-2023 Patient encounter procedure 07/15/2023 10:30 AM EST Office Visit [facility] [address] [place] [address] Justin Marley MD [address] [place] [address] [facility] Start: 07-14-2023 End: 09-13-2023 Calcium.ionized [Moles/volume] in Blood CALCIUM IONIZED BLOOD Lab Routine Hydronephrosis with urinary obstruction due to ureteral calculus Nephrolithiasis Left flank pain Left renal atrophy Expected: 07/14/2023, Expires: 09/13/2023 [facility] Work Phone: Comment on above: Expected: 07/14/2023 , Expires: 09/13/2023 Start: 01-22-2023 Covid-19 Vaccine () Covid-19 Vaccine () [facility] Start: 01-22-2023 Influenza vaccination [facility] Start: 10-04-2022 Urine microalbumin profile DTaP,Tdap,Td Vaccine (2 - Td or Tdap) [facility] Start: 09-18-2022 End: 11-18-2022 Bacteria identified in [...] Start: 05-24-2022 DEPRESSION ASSESSMENT DEPRESSION ASS ESSMENT [facility] Start: 01-22-2022 Influenza vaccination INFLUENZA (#1) [facility] Start: 11-18-2021 COVID-19 VACCINE (5 - Booster for Moderna series) COVID-19 VACCINE (5 - Booster for Moderna series) [facility] Start: 01-23-2020 Influenza vaccination Flu vaccine (# 1) [place], [place] Start: 06-05-2015 Screening for malign ant neoplasm of breast Mammogram [facility] Start: 2014 Screening for malign ant neoplasm of breast Breast cancer screen [place], [place] Start: 2014 Screening for malign ant neoplasm of colon Colon cancer screen colonoscopy [place], [place] Start: 2014 Shingles Vaccine (1 of 2) Shingles Vaccine (1 of 2) [place] Start: 2014 SHINGRIX VACCINE (1 of 2) SHINGRIX VACCINE (1 of 2) [facility] Start: 2009 COLOGUARD (FIT-DNA) COLOGUARD (FIT-D NA) [facility] Start: 2009 Colonoscopy COLONOSCOPY [facility] Start: 2009 COLORECTAL CANCER SCREENING COLORECTAL CANCER SCREENING [facility] Start: [address] COLONOGRAPHY [facility] Start: 2009 DIABETES SCREEN DIABETES SCREEN [facility] Start: 2009 FECAL OCCULT BLOOD FECAL OCCULT BLOO D [facility] Start: 2009 Lipid 1996 panel - Serum or Plasma Lipid Screening [facility] Start: 2009 LIPID SCREEN LIPID SCREEN [facility] Start: 2009 SIGMOIDOSCOPY SIGMOIDOSCOPY [facility] Start: 2004 Lipid panel Lipid screen [place], [place] Start: 2004 Mammography [facility] Start: 1994 HPV TESTING HPV TESTING [facility] Start: 1985 PAP TESTING PAP TESTING [facility] Start: 1985 Screening for malign ant neoplasm of cervix Cervical cancer screen [place], [place] Start: 11-16-1983 DTaP/Tdap/Td vaccine (1 - Tdap) DTaP/Tdap/Td vaccine (1 - Tdap) [place], [place] Start: 11-16-1983 Urine microalbumin profile DTAP,TDAP,TD (1 - Tdap) [facility] Start: 1982 HEPATITIS C SCREENING HEPATITIS C SC REENING [facility] Start: 1982 HIV SCREENING HIV SCREENING [facility] Start: 11-16-1979 HIV screening [facility] screen [facility] [place] [place] Start: 1964 HEPATITIS B (1 of 3 - 3-dose series) HEPATITIS B (1 of 3 - 3-dose series) [facility] Start: 1964 Hepatitis B Vaccine (1 of 3 - 3-dose series) Hepatitis B Vaccine (1 of 3 - 3-dose series) [facility] Start: 1964 Hepatitis C screening Hepatitis C sc reen [place], [place] Start: 1964 Screening for malign ant neoplasm of colon [facility] Bacteria identified in Urine by Culture URINE CULTURE Microbiology Routine Abnormal urinalysis 07/14/2022 10:05 AM EST [facility] Work Phone: End: 06-13-2020 COVID-19 COVID-19 Lab Routine Once for 1 Occurrences starting 06/13/2020 until 06/13/2020 [place], [place] Comment on above: Once for 1 Occurrenc es starting 06/13/2020 until 06/13/2020 COVID-19 [place], [place] End: 07-17-2020 COVID-19 COVID-19 Lab Routine Once for 1 Occurrences starting 07/17/2020 until 07/17/2020 [facility] [employer] Work Phone: Comment on above: Once for 1 Occurrenc es starting 07/17/2020 until 07/17/2020 End: 07-24-2020 COVID-19 COVID-19 Lab Routine Once for 1 Occurrences starting 07/24/2020 until 07/24/2020 [facility] [employer] Work Phone: Comment on above: Once for 1 Occurrenc es starting 07/24/2020 until 07/24/2020 End: 04-10-2020 Covid-19 Ambulatory Covid-19 Ambulatory Lab Routine Once for 1 Occurrences starting 04/10/2020 until 04/10/2020 [place], [place] Comment on above: Once for 1 Occurrenc es starting 04/10/2020 until 04/10/2020 Covid-19 Ambulatory [place], [place] End: 04-25-2020 Covid-19 Ambulatory Covid-19 Ambulatory Lab Routine Once for 1 Occurrences starting 04/25/2020 until 04/25/2020 [facility] Comment on above: Once for 1 Occurrenc es starting 04/25/2020 until 04/25/2020 End: 05-02-2020 Covid-19 Ambulatory Covid-19 Ambulatory Lab Routine Once for 1 Occurrences starting 05/02/2020 until 05/02/2020 [facility], [place] Comment on above: Once for 1 Occurrenc es starting 05/02/2020 until 05/02/2020 End: 05-09-2020 Covid-19 Ambulatory Covid-19 Ambulatory Lab Routine Once for 1 Occurrences starting 05/09/2020 until 05/09/2020 [facility], [place] Comment on above: Once for 1 Occurrenc es starting 05/09/2020 until 05/09/2020 End: 05-22-2020 Covid-19 Ambulatory Covid-19 Ambulatory Lab Routine Once for 1 Occurrences starting 05/22/2020 until 05/22/2020 [facility], [place] Comment on above: Once for 1 Occurrenc es starting 05/22/2020 until 05/22/2020 End: 03-01-2020 Covid-19 Ambulatory Covid-19 Ambulatory Lab Routine Once for 1 Occurrences starting 03/01/2020 until 03/01/2020 [facility], [place] Comment on above: Once for 1 Occurrenc es starting 03/01/2020 until 03/01/2020 End: 05-30-2020 Covid-19 Ambulatory Covid-19 Ambulatory Lab Routine Once for 1 Occurrences starting 05/30/2020 until 05/30/2020 [facility], [place] Comment on above: Once for [...] 1 Occurrences starti ng 10/21/2022 until 11/20/2023 [facility] Immunizations Immunization Date Immunization Notes Care Provider [facility] 09-23-2021 SARS-CoV-2 (COVID-19 ) mRNA-1273 vaccine Chalo sevenload [facility] 04-23-2021 SARS-CoV-2 (COVID-19 ) mRNA-1273 vaccine [employer] [facility] 06-27-2020 SARS-CoV-2 (COVID-19 ) mRNA-1273 vaccine [employer] [facility] 05-30-2020 SARS-CoV-2 (COVID-19 ) mRNA-1273 vaccine [employer] [facility] 03-01-2019 influenza virus vaccine, unspecified formulation [employer] [facility] 03-01-2019 Seasonal, quadrivale nt, recombinant, injectable influenza vaccine, preservative free Justin Marley MD Work Phone: [facility] 10-04-2012 tetanus toxoid, redu porsha diphtheria toxoid, and acellular pertussis vaccine, adsorbed Chalo BLUM [facility] Payers Date Payer Category Payer Self-pay [id number] 2020 Unknown 1965 Unknown [id number] 2.16.8 40.1.528843.3.579.2.175 1964 Unknown [id number] 2.16.8 40.1.687133.3.579.2.175 1964 Unknown [id number] 2.16.8 40.1.830300.3.579.2.175 1964 Unknown [id number] 2.16.8 40.1.743610.3.579.2.175 1964 Unknown [id number] 2.16.8 40.1.112977.3.579.2.175 1964 Unknown [id number] 2.16.8 40.1.285735.3.579.2.175 1964 Unknown [id number] 2.16.8 40.1.593824.3.579.2.175 1964 Unknown [id number] 2.16.8 40.1.532460.3.579.2.175 1964 Unknown [id number] 2.16.8 40.1.426265.3.579.2.175 1964 Unknown [id number] 2.16.8 40.1.296135.3.579.2.175 1964 Unknown [id number] 2.16.8 40.1.730498.3.579.2.175 1964 Unknown [id number] 2.16.8 40.1.196536.3.579.2.175 1964 Unknown [id number] 2.16.84 0.1.769309.3.579.2.593 1964 Unknown [id number] 2.16.84 0.1.410826.3.579.2.593 1964 Unknown [id number] 2.16.84 0.1.607259.3.579.2.593 1964 Unknown [id number] 2.16.84 0.1.235903.3.579.2.593 1964 Unknown [id number] 2.16.84 0.1.070663.3.579.2.593 1964 Unknown [id number] 2.16.84 0.1.410525.3.579.2.593 1964 Unknown [id number] 2.16.84 0.1.263803.3.579.2.593 1964 Unknown [id number] 2.16.8 40.1.422724.3.579.2.727 1964 Unknown [id number] 2.16.8 40.1.091550.3.579.2.727 1964 Unknown [id number] 2.16.8 40.1.863556.3.579.2.727 1964 Unknown [id number] 2.16.8 40.1.990647.3.579.2.727 1964 Unknown [id number] 2.16.8 40.1.904638.3.579.2.727 1964 Unknown [id number] 2.16.8 40.1.689985.3.579.2.727 1964 Unknown [id number] 2.16.8 40.1.212296.3.579.2.727 1964 Unknown [id number] 2.16.8 40.1.887102.3.579.2.727 1964 Unknown [id number] 2.16.8 40.1.198147.3.579.2.727 1964 Unknown [id number] 2.16.84 0.1.658107.3.579.2.1259 1964 Unknown [id number] 2.16.84 0.1.108303.3.579.2.1259 1964 Unknown [id number] 2.16.84 0.1.013012.3.579.2.1259 1959 Unknown [id number] 1. 2.840.162658.1.13.239.2.7.3.240090.315 Unknown [id number] 2.16.8 40.1.580195.3.579.2.531 Social History Date Type Detail Facility Tobacco smoking stat [email or web address] Unknown if ever smoked [facility] [place], [place] Start: 1965 Sex Assigned At Not on file [place], [place] Start: 09-28-2022 End: 06-21-2023 Sex Assigned At [facility] Start: 03-31-2022 End: 06-03-2023 Tobacco smoking status Never smoked tobacco (finding) [facility] Tobacco smoking status Never [facility] Start: 09-28-2022 End: 06-21-2023 No alcohol use No alcohol use [place] [phone] DO Work Phone: Start: 1965 Sex Assigned At Female [facility] History of tobacco use Passive smoker [facility] Start: 07-14-2022 End: 06-03-2023 Tobacco use and exposure Smokeless tobacco non-user [facility] Start: 06-21-2023 Alcohol intake Ex-drinker (finding) [facility] Start: 06-07-2023 Alcohol Comment Caffeine intake ; chocolatre [facility] Start: 06-03-2023 Gender identity Identifies as female gender (finding) [facility] Start: 06-03-2023 Sexual orientation Heterosexual (finding) [facility] Medical Equipment Procedure Code Equipment Code Equipment Origin al Text Equipment Identifier Dates Stent Inlay Opti ma 7fr Taper [employer] Phreecoat 24cm Ureteral - [id number] Start: 09-07-2022 Stent Inlay Opti ma 6fr Taper [employer] Phree[employer] 24cm Ureteral - [id number] Start: 10-12-2022 Functional Status Date Assessment Result Facility 07-07-2022 Functional Status N/A [facility] 06-11-2022 Functional Status No [facility] 04-17-2022 Functional Status No [facility] 03-31-2022 Functional Status N/A [facility] Clinical Notes 02-02-2022 to 06-21-2023 Justin [...] 0.55 - 1.02 mg/dL Final [facility] [place] 06/21/2023 40 (L) >=60 Final [facility] EGFR-NON AF [place] 06/21/2023 33 (L) >=60 Final BUN CREATININE [...] 0.55 - 1.02 mg/dL Final [facility] EGFR-[facility] [place] 06/16/2023 39 (L) >=60 Final [facility] EGFR-NON AF [place] 06/16/2023 32 (L) >=60 Final BUN CREATININE [...] (HH) <=900.0 pg/mL Final RESULTS CALLED TO [facility] WBC 06/16/2023 6.4 4.0 - 11.0 [...] this office visit and go out to [facility] to get those labs done. Bilateral edema [...] chelated iron orally. documented in this encounter [facility] 04-26-2023 Note HNO ID: [id number] Author: Bony Elizabeth RT(R) Service: Radiology Author [...] IV DATA: Not applicable SIGNED BY: RT Raafela(R) April 26, 2023 3:53 PM [facility] 04-26-2023 Note HNO ID: [id number] Author: Hanane Lau RT(Malcom) Service: Radiology Author [...] RDMS RVT April 26, 2023 2:41 PM [facility] 04-26-2023 History of Present illness Narrative [...] 2023 3:53 PM documented in this encounter [facility] 04-26-2023 History of Present illness Narrative Radiology [...] 2023 2:41 PM documented in this encounter [facility] 10-21-2022 Note HNO ID: [id number] Author: Dana Renteria RN Service: ? Author [...] procedures): No specimen collected. Dana Renteria RN [facility] 10-21-2022 Note HNO ID: [id number] Author: Samy Odonnell MD Service: ? Author [...] Samy Odonnell MD Director, Surgical Stone Disease [facility] [place], [facility] Pager [phone] 10/21/2022 [facility] 10-21-2022 History of Present illness Narrative [...] Samy Odonnell MD Director, Surgical Stone Disease [facility] [place] Pager [phone] 10/21/2022 documented in this encounter [facility] 10-21-2022 Nurse Note Actual procedure/procedure scheduled: Yes Performing provider/scheduled provider: Yes Patient was roomed in: Q9- 05 Die Repairer Forging offered:Patient declines Patient arrived in the room [...] Education Session: None Instruction Provided To: Patient Body Care Manager Present: not applicable Discipline: Nursing Learning Topic: SURVIVAL SKILLS: Complication Prevention Symptom Management Patient Evaluation: Verbalizes understanding: Yes Supplemental Material Given: Written Material Instructed By Dana Renteria RN In Department Urology . documented in this encounter [facility] 10-12-2022 Note HNO ID: [id number] Author: ION Hopkins Service: ? Author Type: [...] October 12, 2022 TIME: 8:17 AM CSN: [id number] [facility] 09-28-2022 Note HNO ID: [id number] Author: Marley Brown PA-C Service: ? Author Type: Physician Outside Solar Sales Consultant Type: Progress Notes Filed: 09/28/2022 2:56 PM Note Text: [facility] PRE-OP NOTE [...] Signed: Yes. Pre-op HANDP Done by Physician Outside Solar Sales Consultant: Yes. PATIENT INSTRUCTIONS FOR SURGERY 1.) DO [...] for surgery. Marley Gutierrez PA-C Electronically signed [facility] 09-28-2022 Note Patient Outreach (UR OLMN) ELIZABETH IRVIN ([id number]) 1965 F Date Time Provider Department 09/28/22 MARLEY CHOE During your visit today, we recorded the following information about you: Allergies As of Date: 09/28/2022 Noted Allergy Reaction PREDNISONE 04/24/2022 4 - Hives VALACYCLOVIR 04/24/2022 4 - Hives Date Reviewed: 09/28/2022 Reviewed by: Marley Brown PA-C - Fully Assessed Visit Diagnosis:Screening for genitourinary condition [Z13.89] Order(s):URINALYSIS, REFLEX MICROSCOPIC [COC0498] Order #: [id number]. #:[id number] Prescriptions as of 10/01/2022 - cephALEXin (KEFLEX) [...] Of Date: 09/28/2022 (None) Encounter Status:Closed by WeddingLovelyMELANI on 10/01/22 [facility] 09-28-2022 History and physical note UROLOGY [...] problems. Neurologic: No history of TIA's, stroke, FREEZER UNLOADER tumor, impaired sensorium, hemiplegia or paraplegia No [...] (no units) Date Value 09/07/2022 Negative Specific [place], [place] (no units) Date Value 09/07/2022 1.014 [...] PM PAGER/CONTACT #: documented in this encounter [facility] 09-28-2022 History of Present illness Narrative [facility] PRE-OP NOTE [...] Signed: Yes. Pre-op H&P Done by Physician Outside Solar Sales Consultant: Yes. PATIENT INSTRUCTIONS FOR SURGERY 1.) DO [...] Marley Gutierrez PA-C documented in this encounter [facility] 09-16-2022 Note HNO ID: [id number] Author: Dede Story RN Service: ? Author [...] Visit completed when applicable. Dede Story RN [facility] 09-16-2022 Note HNO ID: [id number] Author: Samy Odonnell MD Service: ? Author [...] Samy Odonnell MD Director, Surgical Stone Disease [facility] Pager [phone] 09/16/2022 [facility] 09-16-2022 History of Present illness Narrative [...] Samy Odonnell MD Director, Surgical Stone Disease [facility] Pager [phone] 09/16/2022 documented in this encounter [facility] 09-16-2022 Nurse Note Actual procedure/procedure scheduled: Yes Performing provider/scheduled provider: Yes Patient was roomed in: Q9- 09 Die Repairer Forging offered: Patient declines Patient arrived in the [...] Education Session: None Instruction Provided To: Patient Body Care Manager Present: not applicable Discipline: Nursing Learning Topic: SURVIVAL SKILLS: Complication Prevention Pain Management Symptom Management Patient Evaluation: Verbalizes understanding: Yes Supplemental Material Given: None Instructed By Dede Story RN In Department Urology . documented in this encounter [facility] 09-07-2022 Note HNO ID: [id number] Author: Fernanda Joseph APRN.DIAGNOSTIC TECH Service: ? Author Type: Nurse Machine Binder Stripper Type: Anesthesia Procedure Notes Filed: 09/07/2022 1:55 PM Note Text: ANESTHESIOLOGY PROCEDURE NOTE Airway General Information Procedure Start Time/Medication Administration: 09/07/2022 1:38 PM Patient location during procedure: OR Timeout Performed Pre-procedure: timeout performed Consent Obtained: Yes Patient identity confirmed: arm band and patient Staffing DIAGNOSTIC TECH: Fernanda Joseph APRN.DIAGNOSTIC TECH Indications and Patient Condition Indications for airway management: anesthesia Preoxygenated: yes anesthesia circuit Patient position: sniffing Method: asleep Cricoid Pressure: No Manual In-Line Stabilization: No Difficult Mask: No Final Airway Details Final airway type: endotracheal airway Final Endotracheal Airway: ETT Cuffed: yes Successful intubation technique: video laryngoscopy Devices used: [employer] Endotracheal tube insertion site: oral Blade size: #4 ETT size (mm): 7.0 Measured from: lips Measurement (cm): 20 Placement verified by: capnometry Cormack-Lehane Classification: grade I - full view of glottis Number of attempts at approach: 1 Failed airway: no Unrecognized esophageal intubation: no Airway not difficult SIGNATURE: Fernanda Joseph APRN.CRNA PATIENT NAME: Elizabeth Irvin DATE: September 07, 2022 TIME: 1:54 PM CSN: [id number] [facility] 09-07-2022 Note Patient Outreach (UR OLMN) ELIZABETH IRVIN ([id number]) 1965 F Date Time Provider Department 09/07/22 MARLEY CHOE During your visit today, we recorded the following information about you: Allergies As of Date: 09/07/2022 Noted Allergy Reaction PREDNISONE 04/24/2022 4 - Hives VALACYCLOVIR 04/24/2022 4 - Hives Date Reviewed: 09/07/2022 Reviewed by: Zelalem Pichardo RN - Fully Assessed Visit Diagnosis:Screening for genitourinary condition [Z13.89] Order(s):URINALYSIS, REFLEX MICROSCOPIC [[id number]] Order #: [id number]. #:[id number] Prescriptions as of 09/10/2022 - tamsulosin (FLOMAX) [...] Of Date: 09/07/2022 (None) Encounter Status:Closed by WeddingLovely, PRODUSER on 09/10/22 [facility] 09-07-2022 Note HNO ID: [id number] Author: Marley Brown PA-C Service: ? Author Type: Physician Outside Solar Sales Consultant Type: Progress Notes Filed: 09/07/2022 10:06 AM [...] Urine 08/18/2022 Negative Trace, Negative Final Specific [place], Ur 08/18/2022 1.016 1.005 - 1.030 Final [...] low oxalate di (more content not included)... [facility] 09-07-2022 History of Present illness Narrative [...] Urine 08/18/2022 Negative Trace, Negative Final Specific [place], Ur 08/18/2022 1.016 1.005 - 1.030 Final [...] All fluids count but water is best. [place] intake - Recommend increasing dietary citrate intake. [...] which included preparing to see the patient, nxgq-il-lsva patient care, completing clinical documentation, obtaining and/or reviewing separately obtained history, performing a medically appropriate examination, counseling and educating the patient/family/caregiver, ordering medications, tests, or procedures, and communicating results to the patient/family/caregiver. Marley Gutierrez PA-C documented in this encounter [facility] 09-07-2022 History and physical note UROLOGY SURGICAL [...] problems. Neurologic: No history of TIA's, stroke, FREEZER UNLOADER tumor, impaired sensorium, hemiplegia or paraplegia No [...] (no units) Date Value 08/18/2022 Negative Specific [place], Ur (no units) Date Value 08/18/2022 1.016 [...] 07, 2022 TIME: 8:59 AM PAGER/CONTACT #: [facility] PRE-OP NOTE Elizabeth Irvin is a 56 year old female. Pre-op Date: September 07, 2022 Date of Procedure: 09/07/22 Does the patient have an active COVID-19 test in [facility]? N/a Procedure/Surgery: L URS and stent [...] Signed: Yes. Pre-op H&P Done by Physician Outside Solar Sales Consultant: Yes. PATIENT INSTRUCTIONS FOR SURGERY 1.) DO [...] Marley Gutierrez PA-C documented in this encounter [facility] 08-19-2022 Miscellaneous Notes Called and spoke with [...] advise -thank you. documented in this encounter [facility] 08-13-2022 Miscellaneous Notes Called patient to discuss [...] 2022 9:55 AM documented in this encounter [facility] 07-30-2022 Note HNO ID: [id number] Author: Donovan Guzman [employer] Service: Nuclear Medicine Author Type: Tower Attendant Type: Progress Notes Filed: 07/30/2022 2:28 PM [...] safety can be found using this link: [email or web address] [email or web address] %[email or web address]-%20Diagnostic%20Nuclear%20Me dicine%20Procedures.pdf SIGNATURE: Donovan Guzman [employer] PATIENT NAME: Elizabeth Irvin DATE: July 30, 2022 TIME: 2:26 PM PAGER/CONTACT #: [facility] 07-30-2022 History of Present illness Narrative [...] safety can be found using this link: [email or web address] [email or web address]-%20Diagnostic%20N uclear%20Medicine%20Procedures.p df SIGNATURE: Donovan Guzman [employer] PATIENT NAME: Elizabeth Irvin DATE: July 30, 2022 TIME: 2:26 PM PAGER/CONTACT #: documented in this encounter [facility] 07-30-2022 Nurse Note Patient here for a renal scan with lasix. Patient identified and allergies reviewed. Per order under scanned documents lasix 40 mg IV given at 1411. documented in this encounter [facility] 07-14-2022 Note Patient Outreach (UR OLMN) ELIZABETH IRVIN ([id number]) 1965 F Date Time Provider Department 07/14/22 SAMY ODONNELL During your visit today, we recorded the following information about you: Allergies As of Date: 07/14/2022 Noted Allergy Reaction PREDNISOLONE 07/14/2022 4 - Hives PREDNISONE 04/24/2022 4 - Hives VALACYCLOVIR 04/24/2022 4 - Hives Date Reviewed: 07/14/2022 Reviewed by: Gali Mcnally, ANNALISE - Fully Assessed Visit Diagnosis:Screening for genitourinary condition [Z13.89] Order(s):URINALYSIS, REFLEX MICROSCOPIC [[id number]] Order #: [id number]. #:[id number] Prescriptions as of 07/17/2022 - nitrofurantoin monohydrate [...] Of Date: 07/14/2022 (None) Encounter Status:Closed by HydroNovationUSER on 07/17/22 [facility] 07-14-2022 Note HNO ID: [id number] Author: Samy Odonnell MD Service: ? Author [...] based on size, location, hounsfield units and bljd-xp-tthsc distance: 0% 3. Ureteroscopy - risks of [...] with more than 50% of the total mgzh-mp-vbog time of the visit devoted to patient counseling/coordination of care. Samy Odonnell MD Director, Surgical Stone Disease [facility], [facility] Pager [phone] 07/14/2022 [facility] 07-14-2022 History of Present illness Narrative [...] based on size, location, hounsfield units and ogml-au-fgzmx distance: 0% 3. Ureteroscopy - risks of [...] with more than 50% of the total tqev-dl-ovtt time of the visit devoted to patient counseling/coordination of care. Samy Odonnell MD Director, Surgical Stone Disease [facility], [facility] Pager [phone] 07/14/2022 documented in this encounter [facility] 07-07-2022 Hospital Discharge instructions Patient Education 07/07/2022 [...] include: ?Spinach. ?Rhubarb. ?Beets. ?Potato chips and turkmen fries. ?Nuts. If you regularly take a diuretic medicine, make sure to eat at least 1 2 fruits or vegetables high in potassium each day. These include: ?Avocado. ?Banana. ?[place], prune, carrot, or tomato juice. ?Baked potato. [...] Casseroles. Pizza. Lasagna. Frozen meals. Potato chips. New Zealander fries. Summary You can reduce your risk [...] 09/04/2011 Document Revised: 08/30/2019 Document Reviewed: 04/20/2017 [employer] Patient Education 2020 [employer]. Follow Up Care 06/29/2022 15:30:12 With:KULWANT REED, Chalo Frazier, URL Address: [address] [place] [address] [place], [place] [id number]- When: Unknown [facility] 06-18-2022 Evaluation + Plan note Extrac bernardo from: Title:Post-anesthesia - General Author:Garfield Garrett DO Date:06/18/22 Plan Transfer/ Discharge: Condition stable. Extracted from: Title:Pre-anesthesia - Adult Author:Garfield Beauchamp Jr., DO Date:06/18/22 Plan Citizen Of [place] Society of Anesthesiologists (ASA) physical status classification: Class III. Anesthetic Preoperative Plan Anesthesia: General. . Anesthetic plan, risks, benefits, and alternatives discussed with the patient and/or family. Patient verbalized understanding. Adverse reactions, complications, and alternatives discujssed. Consent signed and on chart.. [facility]01-26-2023 Hospital Discharge instructions Patient Education 06/18/2022 11:56:09 [...] Follow these instructions at home: Medicines Take xtbb-njo-efirsjp and prescription medicines only as told by [...] 05/29/2008 Document Revised: 08/21/2019 Document Reviewed: 03/31/2017 [employer] Patient Education 2020 [employer]. Follow Up Care 03/31/2022 13:46:23 With:Chalo BLUM Address: [address] [address]- Business (1) When:1 to 2 weeks Comments:Call for followup appointment with an abdominal X-ray prior to your visit (my office will need to send an order for the X-ray) [facility]01-13-2023 Note [id number]:127[facility] 04-15-2022 [id number]:127[facility]11-22-2022 [id number]:127 [facility]11-08-2022 Hospital Discharge instructions Patient Education 03/31/2022 13:07:20 Kidney Stones, Glbw-mf-Lhqp Kidney Stones Kidney stones are rock-like masses [...] Follow these instructions at home: Medicines Take pepa-eqe-yhvkztm and prescription medicines only as told by [...] 10/26/2008 Document Revised: 09/26/2019 Document Reviewed: 09/26/2019 [employer] Patient Education 2019 [employer]. Follow Up Care 03/26/2022 10:20:11 With:KULWANT REED, Chalo Frazier, URL Address: [facility] [place] [id number]- When: Unknown [facility] 10-31-2022 Evaluation note* Encounter Date Diagnosis [...] - E11.9) Continue current dose. Sent to [facility] Feb, RLS (restless legs syndrome) (ICD-10 - G25.81) Continue medication as discussed. Sent order to [facility] Feb, JEET (generalized anxiety disorder) (ICD-10 - F41.1) Continue medication as discussed. Sent order to [facility] Other 10-27-2022 NoteEXAMINATION: XR RETROGRADE PYELOGRAM HISTORY: [...] Electronically authenticated by: NATACHA WILD Date: 2022-03-19 16:44[facility]10-27-2022 NoteOPERATIVE NOTE OPERATION DATE: 03/19/2022 PREOPERATIVE [...] placed per urethra and a well lubricated 22-New Zealander cystourethroscope with 30 degree lens was then [...] backloaded over the wire and a 4.8 New [place]alander 22-30 cm [employer] double J stent was passed into the left kidney. Minimal difficulty getting the stent past the stone over the wire. The wire was removed and there was good curl within the kidney and (more content not included)...[id number]* Encounter Date Diagnosis Assessment Notes [...] RLS (restless legs syndrome) (ICD-10 - G25.81) [facility] Other Evaluation + Plan note Future Appointments Appointment Date:04/17/2022 07:30:00 AM Scheduled Provider: Location:[facility] Appointment Type:Surgical PAT FT Appointment Date:04/30/2022 10:00:00 AM Scheduled Provider: Location:[facility] Appointment Type:Surgery FT [facility] Evaluation + Plan note Future Appointments Appointment Date:04/30/2022 12:45:00 PM Scheduled Provider: Location:[facility] Future Appointments Appointment Date:06/18/2022 11:30:00 AM Scheduled Provider: Location:[facility] Appointment Type:Surgery FT Diagnostic Tests Pending * Urine Culture [facility]11/22 [facility] Evaluation noteNo InformationNort Comunitae Other evaluation noteNo assessment information available [facility] Work Phone: Evaluation note* Diagnosis Abnormal urinalysis- Primary Other nonspecific finding on examination of urine [facility] Diagnosis Nephrolithiasis- Primary Calculus of kidney Hydronephrosis with urinary obstruction due to ureteral calculus Left flank pain Abdominal pain, unspecified site Left renal atrophy Renal sclerosis, unspecified [facility]* Diagnosis Hydronephrosis with urinary obstruction due to ureteral calculus [facility]* Diagnosis Nephrolithiasis- Primary Calculus of kidney [facility]* Diagnosis Nephrolithiasis- Primary Calculus of kidney [facility] Diagnosis Preop examination- Primary Preoperative examination, unspecified Nephrolithiasis Calculus of kidney Hypernatriuria Hyperosmolality and/or hypernatremia Hyperoxaluria Other specified disorders of carbohydrate transport and metabolism Hypocitraturia Other nonspecific finding on examination of urine Aciduria (HCC) Other nonspecific finding on examination of urine Urine volume deficient Oliguria and anuria Elevated parathyroid hormone Unspecified endocrine disorder [facility]* Diagnosis Screening for genitourinary condition Screening for other and unspecified genitourinary condition [facility]* Diagnosis Nephrolithiasis- Primary Calculus of kidney [facility]* Diagnosis Nephrolithiasis- Primary Calculus of kidney Abnormal urinalysis Other nonspecific finding on examination of urine Nephrolithiasis Calculus of kidney [facility]* Diagnosis Preop examination- Primary Preoperative examination, unspecified Nephrolithiasis Calculus of kidney Nephrolithiasis Calculus of kidney [facility]* Diagnosis Screening for genitourinary condition Screening for other and unspecified genitourinary condition Nephrolithiasis Calculus of kidney documented in this encounter [facility] note* Diagnosis Nephrolithiasis- Primary Calculus of kidney Hyperoxaluria Other specified disorders of carbohydrate transport and metabolism Hypernatriuria Hyperosmolality and/or hypernatremia Hypocitraturia Other nonspecific finding on examination of urine Low urine output Oliguria and anuria documented in this encounter [facility] note* Diagnosis Nephrolithiasis Calculus of kidney documented in this encounter [facility] note* Diagnosis Nephrolithiasis Calculus of kidney documented in this encounter [facility] note* Diagnosis High output congestive heart [...] History gastric bypass Hospitalization History see above [facility] Other History general Narrative - Reported* Type Description Date Medical History chronic depression Medical History obesity Medical History hypertension Medical History diabetes mallitus Medical History Gastric bypass Surgical History carpal tunnel release Surgical History hysterectomy Surgical History gastric bypass Surgical History ureter stent Hospitalization History see above [facility] Other Hisoird general Narrative - Reported* Type Description Date Medical History chronic depression Medical History obesity Medical History hypertension Medical History diabetes mellitus Medical History Gastric bypass Medical History KIDNEY STONES Surgical History carpal tunnel release Surgical History hysterectomy Surgical History gastric bypass Surgical History ureter stent Hospitalization History see above [facility] Other Hospital course Narrative No data available for this section [facility] [employer] Hospital Discharge instructions No data available for this section [facility] No data available for this section [facility] [employer] Reason for referral (narrative) Referred by: KULWANT REED, Chalo Frazier [facility] ReRevinate for referral (narrative)* Diagnostic Procedure Only (Routine) - Pending Review Specialty Diagnoses / Procedures Referred By Arminda mejia Referred To Contact MOLECULAR & FUNCTIONAL IMAGING Diagnoses Hydronephrosis with urinary obstruction due to ureteral calculus Procedures NM RENAL FLOW/FXN W PHARM KIDNEY IMG MORPHOLOGY VASCULAR FLOW 1 W/RX Samy Odonnell MD [address] [place] [address] Molecular & Functional Imaging [address] [place] [address] Referral ID Status Reason Start Date Expiration Date Visits Requested Visits Authorized [id number] Pending Review Auto-Generat ed Referral 07/14/2022 08/13/2023 1 1 [facility] for referral (narrative)* Diagnostic Procedure Only (Routine) - Closed Specialty Diagnoses / Procedures Referred By Arminda mejia Referred To Contact MOLECULAR & FUNCTIONAL IMAGING Diagnoses Hydronephrosis with urinary obstruction due to ureteral calculus Procedures NM RENAL FLOW/FXN W PHARM KIDNEY IMG MORPHOLOGY VASCULAR FLOW 1 W/RX Samy Odonnell MD [address] [place] [address] Molecular & Functional Imaging [address] [place] [address] Referral ID Status Reason Start Date Expiration Date V isits Requested Visits Authorized [id number] Closed Auto-Generate d Referral 07/21/2022 10/20/2022 1 1 [facility] for referral (narrative)* Diagnostic Procedure Only (Routine) - Pending Review Specialty Diagnoses / Procedures Referred By Arminda mejia Referred To Contact XR IMAGING Diagnoses Nephrolithiasis Procedures XR ABDOMEN 3V KUB W/OBLIQUES RADIOLOGIC EXAM ABDOMEN 3+ VIEWS Samy Odonnell MD [address] [place] [address] Xr Imaging Referral ID Status Reason Start Date Expiration Date Visits Requested Visits Authorized [id number] Pending Review Auto-Generat ed Referral 10/21/2022 11/20/2023 1 1 * Diagnostic Procedure Only (Routine) - Pending Review Specialty Diagnoses / Procedures Referred By Contac t Referred To Contact US IMAGING Diagnoses Nephrolithiasis Procedures US KIDNEY/BLADDER US RETROPERITONEAL REAL TIME W/IMAGE COMPLETE Samy Odonnell MD [address] [place] [address] Us Imaging Referral ID Status Reason Start Date Expiration Date Visits Requested Visits Authorized [id number] Pending Review Auto-Generat ed Referral 10/21/2022 11/20/2023 1 1 [facility] for referral (narrative)* Diagnostic Procedure Only (Routine) - Closed Specialty Diagnoses / Procedures Referred By Contac t Referred To Contact US IMAGING Diagnoses Nephrolithiasis Procedures US KIDNEY/BLADDER US RETROPERITONEAL REAL TIME W/IMAGE COMPLETE Samy Odonnell MD [address] [place] [address] Us Imaging [place] [address] Referral ID Status Reason Start Date Expiration Date V isits Requested Visits Authorized [id number] Closed Auto-Generate d Referral 10/21/2022 11/20/2023 1 1 [facility] for referral (narrative)* Diagnostic Procedure Only (Routine) - Closed Specialty Diagnoses / Procedures Referred By Contac t Referred To Contact XR IMAGING Diagnoses Nephrolithiasis Procedures XR ABDOMEN 3V KUB W/OBLIQUES RADIOLOGIC EXAM ABDOMEN 3+ VIEWS Samy Odonnell MD [address] [place] [address] Xr Imaging [facility] Referral ID Status Reason Start Date Expiration Date V isits Requested Visits Authorized [id number] Closed Auto-Generate d Referral 10/21/2022 11/20/2023 1 1 [facility] for visit Narrative* Diagnostic Procedure Only (Routine) - Closed Specialty Diagnoses / Procedures Referred By Arminda mejia Referred To Contact MOLECULAR & FUNCTIONAL IMAGING Diagnoses Hydronephrosis with urinary obstruction due to ureteral calculus Procedures NM RENAL FLOW/FXN W PHARM KIDNEY IMG MORPHOLOGY VASCULAR FLOW 1 W/RX Samy Odonnell MD [address] [place] [address] Molecular & Functional Imaging [address] [place] [address] Referral ID Status Reason Start Date Expiration Date V isits Requested Visits Authorized [id number] Closed Auto-Generate d Referral 07/21/2022 10/20/2022 1 1 [facility] Diagnostic Procedure Only (Routine) - Closed Specialty Diagnoses / Procedures Referred By Arminda mejia Referred To Contact US IMAGING Diagnoses Nephrolithiasis Procedures US KIDNEY/BLADDER US RETROPERITONEAL REAL TIME W/IMAGE COMPLETE Samy Odonnell MD [address] [place] [id number] [facility] [place] [address] Referral ID Status Reason Start Date Expiration Date V isits Requested Visits Authorized [id number] Closed Auto-Generate d Referral 10/21/2022 11/20/2023 1 1 [facility] Summary Purpose Family History Unknown Family Member [...] section and content) DATE CREATED AUTHOR 07/25/2020 [facility] DATE CREATED AUTHOR AUTHOR'S ORGANIZ ATION 04/05/2022 [facility] DATE CREATED AUTHOR AUTHOR'S ORGANIZ ATION 05/06/2022 [facility] DATE CREATED AUTHOR AUTHOR'S ORGANIZ ATION 07/16/2022 [facility] DATE CREATED AUTHOR AUTHOR'S ORGANIZ ATION 07/30/2022 Fabian Gagandeep [facility] DATE CREATED AUTHOR AUTHOR'S ORGANIZ ATION 08/01/2022 [facility] DATE CREATED AUTHOR AUTHOR'S ORGANIZ ATION 04/28/2023 [facility] DATE CREATED AUTHOR AUTHOR'S ORGANIZ ATION 06/21/2023 [facility] d[facility] Specialists EPIC REASON FOR VISIT (unrecogniz ed section and content) Reason Comments Consult Kidney Stones 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 - Other Reason Comments Returning Patient's Call Reason Comments Pre-Op Exam Specialty Diagnoses / Procedures Referred By Arminda mejia Referred To Contact ADMITTING Diagnoses Nephrolithiasis Procedures CYSTO/URETERO W/LITHOTRIPSY &INDWELL STENT INSRT CYSTO W/INSERT URETERAL STENT CYSTOURETHROSCOPY W/ URETEROSCOPY AND/OR PYELOSCOPY W/ LITHOTRIPSY INCLUDE INSERTION OF INDWELLING URETERAL STENT CYSTOSCOPY, INSERTION STENT URETERAL J [facility] [address] [place] [address] Referral ID Status Reason Start Date Expiration Date Visits Re quested Visits Authorized [id number] 1 1 Reason Onset Date Comments Opened In Error 09/24/2022 Reason Comments Radio Gen A21 Specialty Diagnoses / Procedures Referred By Arminda mejia Referred To Contact XR IMAGING Diagnoses Nephrolithiasis Procedures XR ABDOMEN 3V KUB W/OBLIQUES RADIOLOGIC EXAM ABDOMEN 3+ VIEWS Samy Odonnell MD [address] [place] [address] [place] [address] Referral ID Status Reason Start Date Expiration Date V isits Requested Visits Authorized [id number] Closed Auto-Generate d Referral 10/21/2022 11/20/2023 1 1 Patient Care team informatio n (unrecognized section and content) Team Status: Inactive Member Role Status Dates Chalo Blum MD Attending Provider Active CESAR Brandon Primary Care Provider Active Team Status: Active Member Role Status Dates CESAR Brandon Primary Care Provider Active Pheresis Specialist Relationship Specialty Start Date End Date Chalo Blum [address] [place] [address] Referring Urology 07/07/22 Pheresis Specialist Relationship Specialty Start Date End Date Chalo Blum [address] [place] [address] Referring Urology 07/07/22 Pheresis Specialist Relationship Specialty Start Date End Date Chalo Blum [address] [place] [address] Referring Urology 07/07/22 Pheresis Specialist Relationship Specialty Start Date End Date Chalo Blum [address] [place] [address] Referring Urology 07/07/22 Pheresis Specialist Relationship Specialty Start Date End Date Chalo Blum [address] [place] [address] Referring Urology 07/07/22 Pheresis Specialist Relationship Specialty Start Date End Date Chalo Blum [address] [place] [address] Referring Urology 07/07/22 Pheresis Specialist Relationship Specialty Start Date End Date Chalo Blum [address] [place] [address] Referring Urology 07/07/22 Pheresis Specialist Relationship Specialty Start Date End Date Chalo Blum Freddie [address] [place] [phone] Referring Urology 07/07/22 Pheresis Specialist Relationship Specialty Start Date End Date Allen Blumshine Frazier [address] [place] [address] Referring Urology 07/07/22 Pheresis Specialist Relationship Specialty Start Date End Date Allen Blumshine Frazier [address] [place] [address] Referring Urology 07/07/22 Pheresis Specialist Relationship Specialty Start Date End Date KulwantAllenChalo P [address] [place] [address] Referring Urology 07/07/22 Pheresis Specialist Relationship Specialty Start Date End Date Allen Blumshine Frazier [address] [place] [address] Referring Urology 07/07/22 Pheresis Specialist Relationship Specialty Start Date End Date Chalo Blum [address] [place] [address] Referring Urology 07/07/22 Pheresis Specialist Relationship Specialty Start Date End Date Chalo Blum [address] [place] [address] Referring Urology 07/07/22 Pheresis Specialist Relationship Specialty Start Date End Date Justin Marley MD [address] [place] [address] PCP - General Family Medicine 06/08/23 Goals [...] or prosecute any alcohol or drug abuse patient.[facility] InstituteIn the event this information is protected by the Federal Confidentiality of Alcohol and Drug Abuse Patient Records regulations: The Federal rules restrict any use of the information to criminally investigate or prosecute any alcohol or drug abuse patient.[facility] InstituteIn the event this information is protected by the Federal Confidentiality of Alcohol and Drug Abuse Patient Records regulations: The Federal rules restrict any use of the information to criminally investigate or prosecute any alcohol or drug abuse patient.[facility] InstituteIn the event this information is protected by the Federal Confidentiality of Alcohol and Drug Abuse Patient Records regulations: The Federal rules restrict any use of the information to criminally investigate or prosecute any alcohol or drug abuse patient.[facility] InstituteIn the event this information is protected by the Federal Confidentiality of Alcohol and Drug Abuse Patient Records regulations: The Federal rules restrict any use of the information to criminally investigate or prosecute any alcohol or drug abuse patient.[facility] InstituteIn the event this information is protected by the Federal Confidentiality of Alcohol and Drug Abuse Patient Records regulations: The Federal rules restrict any use of the information to criminally investigate or prosecute any alcohol or drug abuse patient.[facility] InstituteIn the event this information is protected by the Federal Confidentiality of Alcohol and Drug Abuse Patient Records regulations: The Federal rules restrict any use of the information to criminally investigate or prosecute any alcohol or drug abuse patient.[facility] InstituteIn the event this information is protected by the Federal Confidentiality of Alcohol and Drug Abuse Patient Records regulations: The Federal rules restrict any use of the information to criminally investigate or prosecute any alcohol or drug abuse patient.[facility] InstituteIn the event this information is protected by the Federal Confidentiality of Alcohol and Drug Abuse Patient Records regulations: The Federal rules restrict any use of the information to criminally investigate or prosecute any alcohol or drug abuse patient.[facility] InstituteIn the event this information is protected by the Federal Confidentiality of Alcohol and Drug Abuse Patient Records regulations: The Federal rules restrict any use of the information to criminally investigate or prosecute any alcohol or drug abuse patient.[facility] InstituteIn the event this information is protected by the Federal Confidentiality of Alcohol and Drug Abuse Patient Records regulations: The Federal rules restrict any use of the information to criminally investigate or prosecute any alcohol or drug abuse patient.[facility] InstituteIn the event this information is protected by the Federal Confidentiality of Alcohol and Drug Abuse Patient Records regulations: The Federal rules restrict any use of the information to criminally investigate or prosecute any alcohol or drug abuse patient.[facility] InstituteIn the event this information is protected by the Federal Confidentiality of Alcohol and Drug Abuse Patient Records regulations: The Federal rules restrict any use of the information to criminally investigate or prosecute any alcohol or drug abuse patient.[facility] InstituteIn the event this information is protected by the Federal Confidentiality of Alcohol and Drug Abuse Patient Records regulations: The Federal rules restrict any use of the information to criminally investigate or prosecute any alcohol or drug abuse patient.[facility] InstituteIn the event this information is protected by the Federal Confidentiality of Alcohol and Drug Abuse Patient Records regulations: The Federal rules restrict any use of the information to criminally investigate or prosecute any alcohol or drug abuse patient.[facility] InstituteIn the event this information is protected by the Federal Confidentiality of Alcohol and Drug Abuse Patient Records regulations: The Federal rules restrict any use of the information to criminally investigate or prosecute any alcohol or drug abuse patient.[facility] InstituteIn the event this information is protected by the Federal Confidentiality of Alcohol and Drug Abuse Patient Records regulations: The Federal rules restrict any use of the information to criminally investigate or prosecute any alcohol or drug abuse patient.[facility] InstituteIn the event this information is protected by the Federal Confidentiality of Alcohol and Drug Abuse Patient Records regulations: The Federal rules restrict any use of the information to criminally investigate or prosecute any alcohol or drug abuse patient.[facility] InstituteIn the event this information is protected by the Federal Confidentiality of Alcohol and Drug Abuse Patient Records regulations: The Federal rules restrict any use of the information to criminally investigate or prosecute any alcohol or drug abuse patient.[facility] InstituteIn the event this information is protected by the [facility] Confidentiality of Alcohol and Drug Abuse Patient Records regulations: The Federal rules restrict any use of the information to criminally investigate or prosecute any alcohol or drug abuse patient.[facility] InstituteIn the event this information is protected by the Federal Confidentiality of Alcohol and Drug Abuse Patient Records regulations: The Federal rules restrict any use of the information to criminally investigate or prosecute any alcohol or drug abuse patient.[facility] FOR RECORDS PERTAINING TO PATIENTS WHO ARE [...] BE BASED ON THE PRIMARY CLINICAL RECORDS. [facility]. provides no warranty or guarantee of the accuracy or completeness of information in this document.
--- NOTE | 2023-07-12 15:00 | CA_ITS ---
Patient Name: ELIZABETH IRVIN MR#: [id number] : 1965 Exam Date: 07/12/2023 Ordering Doctor: DR KASEY MARLEY . ECHOCARDIOGRAM REPORT PROCEDURE: CA ECHO DOPPLER COMPLETE INDICATIONS: Congestive heart failure, bilateral edema of lower extremity COMPARISON: None. DESCRIPTION: COMPLETE ECHOCARDIOGRAM Real-time transthoracic echocardiography with 2D, M-mode, spectral and color flow Doppler performed. QUALITY: Technical quality was good. LEFT VENTRICLE: Normal chamber size. Moderate concentric left ventricular hypertrophy. LV EF: Global left ventricular systolic function is normal; visually estimated ejection fraction is 60 to 65%. Calculated left ventricular ejection fraction is 68%. No wall motion abnormalities. DIASTOLIC: Normal diastolic function. ATRIAL SEPTUM: Inadequately seen. LEFT ATRIUM: Normal chamber size. RIGHT ATRIUM: Normal chamber size. RIGHT VENTRICLE: Normal chamber size. Normal right ventricular systolic function. TRICUSPID VALVE: Normal mobility and thickness. No stenosis with trivial regurgitation. No evidence of pulmonary hypertension. RVSP 26mmHg. MITRAL VALVE: Normal mobility and thickness. No evidence of mitral valve stenosis. There is no mitral annular calcification. Trivial mitral regurgitation. AORTIC VALVE: Normal trileaflet appearance. Thickened aortic valve. Normal leaflet mobility. No evidence of aortic valve stenosis. No aortic regurgitation. AORTIC ROOT: Normal diameter and appearance. PULMONIC VALVE: Normal thickness and mobility. No stenosis. Mild regurgitation. PERICARDIUM: No evidence of pericardial effusion. IVC: Collapses with inspirations. Normal size. CONCLUSION: 1. Global left ventricular systolic function is normal; visually estimated ejection fraction is 60 to 65% 2. Normal right ventricular size and systolic function 3. Moderately increased left ventricular wall thickness 4. Normal diastolic function 5. Normal right ventricular systolic pressure 6. Mild pulmonic regurgitation Adult Echocardiography Procedure Report Left Ventricle LVEDD (3.7 - 5.6 cm): 3.59 cm LVESD (2.2 - 4.0 cm): 2.41 cm LVIVS thickness (0.6 - 1.2 cm): 1.36 cm LVPW thickness (0.5 - 1.0 cm): 1.33 cm e': 0.09 m/s E - e': 6.90 LVOT Max Gradient: 5.67 mm[Hg] LVOT Area (cm2): 1.19 m/s Peak Velocity (LVOT): 1.19 m/s Mean Velocity (LVOT): 0.71 m/s LVOT Diameter 2.04 cm Left Ventricular Ejection Fraction: 68.16 % Left Atrium LA Volume Index (2D A2C): 34.61 ml/m2 Left Atrium Systolic Dimension: 3.16 cm Mitral Valve MV E to A Ratio: 0.77, 0.76 MV Max Gradient: MV Mean Gradient: Mitral Valve A-Wave Peak Velocity: 0.83 m/s Mitral Valve E-Wave Peak Velocity: 0.64 m/s Cardiovascular Orifice Area: Right Ventricle RV Internal Diastolic Dimension: 2.37 cm Aorta AO Root Diam: 2.85 cm Ascending Ao Diam: 2.93 cm Aortic Valve AoV Area (Peak Diego): 3.14 cm2, 3.14 cm2 AoV Area (VTI): 3.22 cm2, 3.22 cm2 Deceleration [place]: Pressure Half-Time: Peak Velocity(Antegrade Flow): 1.24 m/s Peak Gradient(Antegrade Flow): 6.18 mm[Hg] Mean Velocity(Antegrade Flow): 0.86 m/s Mean Gradient(Antegrade Flow): 3.38 mm[Hg] Velocity Time Integral: 24.15 cm Tricuspid Valve Peak Velocity (Regurgitant Flow): 2.36 m/s, 2.40 m/s, 2.02 m/s Peak Velocity: Pulmonic Valve Mean Gradient: 1.68 mm[Hg], 1.76 mm[Hg] Mean Velocity: 0.61 m/s, 0.65 m/s Peak Velocity: 0.82 m/s Peak Gradient: 2.91 mm[Hg], 2.44 mm[Hg] Right Atrium Right Atrium Systolic Pressure: 20.27 ml, 20.27 ml Dictated by: Radha Beth M.D. on 07/14/2023 at 11:34 Approved by: Radha Beth M.D. on 07/14/2023 at 11:38
== END 2023-07-12 14:40 | disposition home or self-care (01) ==
LOC: CARD 14:39
PROVIDERS: PCP Family Medicine; Visit Provider Family Medicine
DX: R55 Syncope and collapse (principal); Z79.899 Other long term (current) drug therapy; I50.83 High output heart failure; R60.0 Localized edema
CPT/HCPCS: 36415; 80048; 84484; 85025; 93005; 93306; 99284

== ENCOUNTER 2025-01-15 07:48 | Outpatient (RCR) | payer BC, SELFPAY ==
[2025-01-08 13:45] VITALS: BP 121/70; PULSE 74; TEMP 36.6; O2SAT 100
[2025-01-08] MEDS: FERRIC CARBOXYMALTOSE 750 MG in 0.9 % SODIUM CHLORIDE 250 ML 795 MG IV (14:06)
[2025-01-08] MEDS: 0.9 % SODIUM CHLORIDE 500 ML IV (14:06)
[2025-01-15 13:55] VITALS: BP 155/94; PULSE 65; TEMP 36.8; O2SAT 97
[2025-01-15] MEDS: FERRIC CARBOXYMALTOSE 750 MG in 0.9 % SODIUM CHLORIDE 250 ML 795 MG IV (14:14)
[2025-01-15] MEDS: 0.9 % SODIUM CHLORIDE 250 ML 10 ML IV (14:15)
== END 2025-01-21 23:59 | disposition home or self-care (01) ==
LOC: INF 07:48
PROVIDERS: PCP Family Medicine; Visit Provider Family Medicine
DX: D50.8 Other iron deficiency anemias (principal); R30.0 Dysuria; R10.2 Pelvic and perineal pain; Z98.84 Bariatric surgery status
CPT/HCPCS: 96365; J1439

== ENCOUNTER 2025-04-16 14:00 | Outpatient (OUT) | payer BC, SELFPAY ==
--- OUTSIDE RECORDS SUMMARY | 2018-11-10 08:00 | XMS_ITS | Continuity of Care Document ---
Author Organization [facility] Address [address] [place] [address] [place] [address] Phone Care Team Providers Care Test Puller Name Role Phone Tonie Nicole CNP Unavailable Unavailable Procedures Procedure Date OFFICE/OUTPATIENT VISIT, EST POSTOP FOLLOW-UP VISIT POSTOP FOLLOW-UP VISIT LAP GASTRIC BYPASS/NILESH-EN-Y Gastric Bypass OFFICE/OUTPATIENT VISIT, EST OFFICE/OUTPATIENT VISIT, [facility] Advance Directives Directive Yes / No Effective Date File Name No Information Encounters Encounter Description Practice Location Reason(s) For Visit Diagnoses Date Provider Providers Copied on Encounter OFFICE/OUTPATI ENT VISIT, [facility], [address] [place] [address], [id number], tel:[phone] [facility] No Information Corey Schilling. [address], [id number], [place]. tel:[phone] Referring Provider: Tonie Nicole, [address] [place] [address], [id number]. tel:[phone] [facility], [address] [place] [address], [id number], tel:[phone] [facility] No Information Corey Schilling. [address], [id number], [place]. tel:[phone] Referring Provider: Tonie Nicole, [address] [place], [address]. tel:[phone] [facility], [address] [place] [address] [address], [place], [place], [id number], [place] tel:[phone] [facility] No Information Corey Schilling. [address], [place], [place], [id number], [place]. tel:[phone] Referring Provider: Tonie Nicole, [address], [facility], [address]. tel:[phone] [facility], [address] [place] [address] [address], [place], [place], [id number], [place] tel:[phone] [facility] IP No Information Radha Delarosa. [address], [place], [place], [id number], [place]. tel:[phone] Referring Provider: Washington Rivas, [address], [facility], [address]. tel:[phone] [facility], [address] [place] [address] [address], [place], [place], [id number], [place] tel:[phone] [facility] IP No Information Corey Schilling. [address], [place], [place], [id number], [place]. tel:[phone] Referring Provider: Tonie Nicole, [facility] [address], [place], [address]. tel:[phone] OFFICE/OUTPATI ENT VISIT, [facility], [address] [place] [address] [address], [place], [place], [id number], [place] tel:[phone] [facility] No Information Radha Delarosa. [address], [place], [place], [id number], [place]. tel:[phone] Referring Provider: Washington Rivas, [address], [place], [address]. tel:[phone] OFFICE/OUTPATI ENT VISIT, [facility], [address], [place], [place], [id number], [place] tel:[phone] [facility] No Information Radha Delarosa. [address], [place], [place], [id number], [place]. tel:[phone] Referring Provider: Washington Rivas, [address], [place], [address]. tel:[phone] Family History Family Member Type Diagnosis Age At Onset No Information Payers Payer name Insurance type Covered libertarian ID Dino rosales(melody) Delilah [id number] Social History Type Description Quantity Date Captured Comments Sex Female Smoking Status No Information Chief Complaint And Reason For Visit No Information Reason For Referral Reason For Referral No Information History Of Present Illness Encounter Date Complaint History Of Prese nt Illness No Information Functional Status Date Functional Assessmen t No Information Instructions Date Instruction Additional Infor mation No Information Assessments Type Assessment Date No Information Patient Care Teams Name Effective Dates (start - stop) Status Members No Information
--- OUTSIDE RECORDS SUMMARY | 2025-04-03 08:30 | XMS_ITS | Encounter Summary ---
Author Organization [facility] Address [address] [place] [address] Care Team Providers Care Clinical Product Manager Name Role Phone Justin Rajput MD Primary Care Provider + [phone] Reason for Visit * ReasonCommentsSleeping Problem Encounter Details DateTypeDepartmentCare Team (Latest Contact Info)Ybodcxtbfej95/11/2025 8:30 AM ESTOffice Visit [facility] [address] Medicine [address] [facility] [address] [place] [address] Justin Rajput MD 112 [facility] [address] [place] [address] (Fax) Benign essential hypertension (Primary Dx); Stage 4 chronic kidney disease (HCC); Restless leg syndrome due to iron deficiency anemia; Iron deficiency anemia secondary to inadequate dietary iron intake; Iron malabsorption (HCC); Vitamin B12 deficiency; History of Prince-en-Y gastric bypass; Chronic fatigue; Snoring; Nasal vestibulitis; BMI 30.0-30.9,adult; Class 1 obesity due to excess calories with serious comorbidity and body mass index (BMI) of 30.0 to 30.9 in adult Social History Tobacco UseTypesPacks/DayYears UsedDateSmoking Tobacco: NeverSmokeless Tobacco: Never Tobacco Cessation:Counseling Given: Not Answered Alcohol UseStandard Drinks/WeekCommentsNot Currently0 (1 standard drink = 0.6 oz pure alcohol)Caffeine intake ; chocolatrePHQ-2AnswerDate RecordedPatient Health Questionnaire-2 Ncudk140CommentsNoSex and Gender Information ValueDate RecordedSex Assigned at ZpdqgKwrriw87/11/2024 1:25 PM ESTLegal Sex Ckmhcw8508/05/2022 7:00 PM EDTGender WhqluifpAjaxdy67/11/2024 1:25 PM ESTSexual NifqoviwqfgNqnhdrgp14/11/2024 1:25 PM ESTdocumented as of this encounter Last Filed Vital Signs Vital SignReadingTime TakenCommentsBlood Pressure--Pulse--Temperature-- Respiratory Rate--Oxygen Saturation--Inhaled Oxygen Concentration--Lrehax34.1 kg (170 lb)04/03/2025 8:47 AM SXFMnyuul606 cm (5' 3 )04/03/2025 8:47 AM ESTBody Mass Index30. 8:47 AM ESTdocumented in this encounter Progress Notes * Justin Rajput MD - 04/03/2025 8:30 AM EST Images from the original note were not included. Patient ID: Greer Dey is a 59 y.o. female who presents for: Sleep Apnea He/She presents for a sleep evaluation. He/She complains of choking, tossing and turning, decreasedmemory, decreased concentration, excessive daytime sleepiness, increased in weight 25 lb, congestednose, feels sleepy during the day. Symptoms began 1 month ago, gradually worsening since that time.. He/She denies choking, noisy environment, uncomfortable bedding. Review of Systems The patient notes that are congested nose has been going on for several weeks. She also notes that it is a little bit tender on the tip and she has crusting up inside of her nose. No bleeding. No sinus symptomatology. The patient also notes that her restless legs have been very bad for several weeks. Historically this seems to get worse when she is anemic. History of requirement of iron transfusions. With a combination of her malabsorption in her stage 4 chronic kidney disease, she is at risk for the anemia. It turns out that she has stopped her B12 supplementation in his not taking any iron supplementation. Objective The patient is pleasant and in no acute distress The patient has good eye contact and clear speech The tip of her nose is mildly pink and mildly tender to palpation. Up inside her nose in the anterior part of the vestibule bilaterally she does have erythema and some crusting. 04/03/2025 8:47 AM 12/19/2024 2:38 PM 04/13/2024 2:04 PM 01/25/2024 2:36 PM Vitals BMI 30.11 kg/m2 27.1 kg/m2 25.95 kg/m2 25.95 kg/m2 BSA (m2) 1.85 m2 1.76 m2 1.72 m2 1.72 m2 Systolic 116 124 Diastolic 68 74 Heart Rate 73 72 SpO2 96 % 96 % Height (in) 5' 3 5' 3 5' 3 5' 3 Weight (lb) 170 153 146.5 146.5 Visit Report Report Report Report Report Allergies Allergen Reactions Prednisone Hives Tramadol Other Reaction(s): itching Valacyclovir Hcl Other Reaction(s): hives, itching Current Outpatient Medications on File Prior to Visit Medication Sig Dispense Refill ergocalciferol (Vitamin D2) 1.25 MG (46310 UT) capsule Take 1 capsule by mouth 1 (one) time per week furosemide (Lasix) 20 MG tablet Take 1 tablet (20 mg) by mouth Daily 90 tablet 1 HYDROcodone-acetaminophen ([place]) 5-325 MG tablet Take 1 tablet by mouth every 6 (six) hours if needed for severe pain for up to 3 days 12 tablet 0 polyethylene glycol, PEG, 3350 (Miralax) 17 g packet Take 17 g by mouth Daily No current facility-administered medications on file prior to visit. 1. Benign essential hypertension (Primary) Chronic problem, stable, to goal. - CBC and differential; Future - Iron and TIBC; Future - CBC and differential - Iron and TIBC 2. Stage 4 chronic kidney disease (HCC) Chronic problem, stable, continue to monitor longitudinally 3. Restless leg syndrome due to iron deficiency anemia Chronic problem that is worsening. With her history of iron deficiency associated this we will further evaluate. 4. Iron deficiency anemia secondary to inadequate dietary iron intake - CBC and differential; Future - Iron and TIBC; Future - CBC and differential - Iron and TIBC 5. Iron malabsorption (HCC) - CBC and differential; Future - Iron and TIBC; Future - CBC and differential - Iron and TIBC 6. Vitamin B12 deficiency - Vitamin B12; Future - Vitamin B12 7. History of Prince-en-Y gastric bypass Chronic problem causing interference with 8. Chronic fatigue worsening 9. Snoring Noticed by spouse and seems to be worsening 10. Nasal vestibulitis She does have the nasal vestibulitis. We discussed some options and will use hapi-sav-kpikdrh bacitracin applied 2 to 3 times a day intranasally and around the edges. She will contact us back if she is not better. 11. BMI 30.0-30.9,adult Defines the obesity. 12. Class 1 obesity due to excess calories with serious comorbidity and body mass index (BMI) of 30.0 to 30.9 in adult Chronic comorbid condition. Please Note: Portions of this chart may have been created using voice recognition software. Occasionally a wrong-word or sound-like substitutions may have occurred due to inherent limitations of the voice recognition software. Please read the chart carefully and recognize, using context, where the substitutions may have occurred. documented in this encounter Plan of Treatment Not on file documented as of this encounter Procedures Procedure NamePriorityDate/TimeAssociated DiagnosisCommentsIRON AND TOTAL IRON BINDING BGTQTKGJTakrmyo95/11/2025 9:43 AM EST Benign essential hypertension Iron deficiency anemia secondary to inadequate dietary iron intake Iron malabsorption (HCC) CBC (INCLUDES DIFF/PLT)Tnhkshy6804/03/2025 9:43 AM EST Benign essential hypertension Iron deficiency anemia secondary to inadequate dietary iron intake Iron malabsorption (HCC) VITAMIN E51Xyyyiod12/11/2025 9:43 AM EST Vitamin B12 deficiency documented in this encounter Results * Vitamin B12 (04/03/2025 9:43 AM EST)ComponentValueRef RangeTest MethodAnalysis TimePerformed AtPathologist SignatureVITAMIN [id number] - 1,100 pg/mLQUEST Specimen (Source)Anatomical Location / LateralityCollection Method / Volume Collection TimeReceived TimeBloodVenous blood specimen / Cydsmmb7104/03/2025 9:43 AM EST04/03/2025 9:43 AM EST Narrative Resulting Agency Comment Performing Organization Information ?Site ID: QPT ?Name: [facility] ?Address: [address] [place] [phone] ?Director: Gigi Paul MD Authorizing ProviderResult TypeResult StatusJustin Rajput MDRAWLINS COUNTY HEALTH CENTER BLOOD ORDERABLESFinal ResultPerforming OrganizationAddressCity/State/ZIP CodePhone Number [facility]ST * Iron and TIBC (04/03/2025 9:43 AM EST)ComponentValueRef RangeTest Method Analysis TimePerformed AtPathologist SignatureIRON, UORBY4596 - 160 mcg/dL QUESTIRON BINDING [id number] - 450 mcg/dL (calc)QUEST% ANXDKKCZET2330 - 45 % (calc)QUESTSpecimen (Source)Anatomical Location / LateralityCollection Method / VolumeCollection TimeReceived TimeBloodVenous blood specimen / Tgpiijq5104/03/2025 9:43 AM EST04/03/2025 9:43 AM EST Narrative Resulting Agency Comment Performing Organization Information ?Site ID: QPT ?Name: [facility] ?Address: [address] [place] [phone] ?Director: Gigi Paul MD Authorizing ProviderResult TypeResult StatusEdaviva Rajput MDRAWLINS COUNTY HEALTH [facility]ENTER BLOOD ORDERABLESFinal ResultPerforming OrganizationAddressty/State/ZIP CodePhone Number [facility] * (ABNORMAL) CBC and differential (04/03/2025 9:43 AM EST)ComponentValueRef RangeTest MethodAnalysis TimePerformed AtPathologist SignatureWHITE BLOOD CELL COUNT5.03.8 - 10.8 Thousand/uLQUESTRED BLOOD CELL COUNT5.34(H)3.80 - 5.10 Million/hXGGXYULMBKOMNTNY34.7(H)11.7 - 15.5 g/jRYGMWYZIEKPPBYAY70.1(H)35.0 - 45.0 %DCGNQHLC31.180.0 - 100.0 zORHCBJSOS63.427.0 - 33.0 buTCOYONVVN39.632.0 - 36.0 g/dLQUESTComment: For adults, a slight decrease in the calculated MCHC value (in the range of 30 to 32 g/dL) is most likely not clinically significant; however, it should be interpreted with caution in correlation with other red cell parameters and the patient's clinical condition. RDW13.811.0 - 15.0 %QUESTPLATELET NYLVP570619 - 400 Thousand/uLQUESTMPV9.87.5 - 12.5 fLQUESTABSOLUTE NEUTROPHILS3,1651,500 - 7,800 cells/uLQUESTABSOLUTE BAND NEUTROPHILSCANCELED0 - 750 cells/uLQUESTComment:Result canceled by the ancillary.ABSOLUTE METAMYELOCYTESCANCELED0 cells/uLQUESTComment:Result canceled by the ancillary.ABSOLUTE MYELOCYTESCANCELED0 cells/uLQUESTComment:Result canceled by the ancillary.ABSOLUTE PROMYELOCYTESCANCELED0 cells/uLQUESTComment: Result canceled by the ancillary.ABSOLUTE LYMPHOCYTES1,510476 - 3,900 cells/uL QUESTABSOLUTE CHPNNVCUB028828 - 950 cells/uLQUESTABSOLUTE FMUQJIIAWZU84726 - 500 cells/uLQUESTABSOLUTE NYLTSBRPC991 - 200 cells/uLQUESTABSOLUTE BLASTSCANCELED0 cells/uLQUESTComment:Result canceled by the ancillary.ABSOLUTE NUCLEATED RBC CANCELED0 cells/uLQUESTComment:Result canceled by the ancillary.YWSXGPQYAWC39.3% QUESTBAND NEUTROPHILSCANCELED%QUESTComment:Result canceled by the ancillary. METAMYELOCYTESCANCELED%QUESTComment:Result canceled by the ancillary. CIPROFLOXICINCANCELED%QUESTComment:Result canceled by the ancillary. PROMYELOCYTESCANCELED%QUESTComment:Result canceled by the ancillary.LYMPHOCYTES 25.7%QUESTREACTIVE LYMPHOCYTESCANCELED0 - 10 %QUESTComment:Result canceled by the ancillary.MONOCYTES6.2%QUESTEOSINOPHILS3.8%QUESTBASOPHILS1.0%QUESTBLASTS CANCELED%QUESTComment:Result canceled by the ancillary.NUCLEATED RBCCANCELED0 /100 WBCQUESTComment:Result canceled by the ancillary.COMMENT(S)CANCELEDQUEST Comment:Result canceled by the ancillary.Specimen (Source)Anatomical Location / LateralityCollection Method / VolumeCollection TimeReceived TimeBloodVenous blood specimen / Hkvlbla6804/03/2025 9:43 AM EST04/03/2025 9:43 AM EST Narrative Resulting Agency Comment Performing Organization Information ?Site ID: QPT ?Name: [facility] ?Address: [address] [place] [address], [address] [place] [address] ?Director: Gigi Paul MD Authorizing ProviderResult TypeResult StatusEdaviva Rajput MDLAB BLOOD ORDERABLESFinal ResultPerforming OrganizationAddressCity/State/ZIP CodePhone Number [facility] documented in this encounter Visit Diagnoses Diagnosis Benign essential hypertension- Primary Essential hypertension, benign Stage 4 chronic kidney disease (HCC) Restless leg syndrome due to iron deficiency anemia Iron deficiency anemia secondary to inadequate dietary iron intake Iron malabsorption (HCC) Other specified intestinal malabsorption Vitamin B12 deficiency Other B-complex deficiencies History of Prince-en-Y gastric bypass Chronic fatigue Other malaise and fatigue Snoring Other dyspnea and respiratory abnormality Nasal vestibulitis Other diseases of nasal cavity and sinuses BMI 30.0-30.9,adult Class 1 obesity due to excess calories with serious comorbidity and body mass index (BMI) of 30.0 to 30.9 in adult documented in this encounter Care Teams Team MemberRelationshipSpecialtyStart DateEnd Date Justin Rajput MD [address] [place] [address] PCP - GeneralFamily Medicine12/19/24documented as of this encounter
--- OUTSIDE RECORDS SUMMARY | 2025-04-17 11:10 | XMS_ITS | Clinical Summary ---
Author Organization [facility] Address [address], [address] [place] [address] Care Team Providers Care Rn Labor And Delivery Name Role Phone Unavailable Primary Care Provider Unavailabl e Social History Tobacco UseTypesPacks/DayYears UsedDateSmoking Tobacco: Never Assessed CommentsUnknownSex and Gender InformationValueDate RecordedSex Assigned at Not on fileLegal ClgCejoee19/11/2020 2:25 PM EDTGender IdentityNot on file Sexual OrientationNot on file Plan of Treatment Not on file Insurance
--- OUTSIDE RECORDS SUMMARY | 2025-04-17 11:10 | XMS_ITS | Clinical Summary ---
Author Organization [facility] [facility] Address [id number] [address] [place] [address] Care Team Providers Care Mortarman Name Role Phone Carlota Matthews MD Primary Care Provider [phone] Allergies Active AllergyReactionsCriticalityNoted QffoGdhaibzcSxxknmbxsnFslgu70/02/2022 PogyynxtrbwcKupxd20/02/2022 Family History Medical HistoryRelationNameCommentsArthritisFatherArthritisMotherDiabetesMother Heart diseaseMotherHypertensionMotherKidney diseaseMotherStrokeMotherTransient ischemic attackMotherRelationNameStatusCommentsFatherMother Social History Tobacco UseTypesPacks/DayYears UsedDateSmoking Tobacco: NeverSmokeless Tobacco: Never Tobacco Cessation:Counseling Given: Not Answered ChildcareAnswerDate CqqremnlSoukbnkqtDzowfmz40/12/2019EmploymentAnswerDate BwvihaotRrhwczbcvwVegupvv71/12/2019Purpose - LifeAnswerDate RecordedPurpose and direction in jgsqHfqdxyu64/11/2021CommentsUnknownSex and Gender InformationValueDate RecordedSex Assigned at BirthNot on fileLegal SexFemale 12/27/2014 11:36 AM EDTGender IdentityNot on fileSexual OrientationNot on file Plan of Treatment Health MaintenanceDue DateLast DoneCommentsDepression Ztfxkjhxf47/25/1977Tobacco Ucgilpuoy40/25/1977Adult BMI Gwitkvqkl49/25/1983DTaP,Tdap and Td Vaccines (1 - Tdap)11/16/1983Pap Smear1985Zoster (Shingles) Vaccine (1 of 2)2014 Influenza Upbdlnt7401/22/2025RSV ( or age 60+ yrs) (1 - 1-dose 75+ series) 11/16/2039 Medical Devices Not on file Insurance Care Teams Team MemberRelationshipSpecialtyStart DateEnd Carlota Matthews MD [address] [place] [address] PCP - GeneralFamily Medicine08/19/17
--- OUTSIDE RECORDS SUMMARY | 2025-04-17 11:10 | XMS_ITS | Encounter Summary ---
Author Organization [facility] Address [address] [place] [address] Care Team Providers Care Supervisor Powder And Primer Canning Name Role Phone Justin Rajput MD Primary Care Provider + [phone] Encounter Details DateTypeDepartmentCare Team (Latest Contact Info)Rekfiyyiqfk09/11/2025Travel Social History Tobacco UseTypesPacks/DayYears UsedDateSmoking Tobacco: NeverSmokeless Tobacco: NeverAlcohol UseStandard Drinks/WeekCommentsNot Currently0 (1 standard drink = 0.6 oz pure alcohol)Caffeine intake ; chocolatrePHQ-2AnswerDate RecordedPatient Health Questionnaire-2 Aocjj783CommentsNoSex and Gender InformationValueDate RecordedSex Assigned at IfuxnAauumo67/11/2024 1:25 PM EST Legal OfyCoxsqx59/15/2023 7:00 PM EDTGender DpcceoexFeekvy01/11/2024 1:25 PM EST Sexual AndokwirsodHnvtvzse02/11/2024 1:25 PM ESTdocumented as of this encounter Plan of Treatment Not on file documented as of this encounter Visit Diagnoses Not on filedocumented in this encounter Care Teams Team MemberRelationshipSpecialtyStart DateEnd Date Justin Rajput MD [address] [facility] [address] [place] [address] PCP - GeneralFamily Medicine12/19/24documented as of this encounter
--- OUTSIDE RECORDS SUMMARY | 2025-04-17 11:10 | XMS_ITS | Encounter Summary ---
Author Organization [facility] Address [address] [place] [address] Care Team Providers Care Almond Paste Mixer Name Role Phone Justin Rajput MD Primary Care Provider + [phone] Encounter Details DateTypeDepartmentCare Team (Latest Contact Info)Kylpznxaphr55/11/2025amboo flowsheet [facility] [place] [address] Family Medicine [address] [facility] [address] [place] [id number] Justin Rajput MD 112 [facility] [address] [place] [address] (Fax) Social History Tobacco UseTypesPacks/DayYears UsedDateSmoking Tobacco: NeverSmokeless Tobacco: NeverAlcohol UseStandard Drinks/WeekCommentsNot Currently0 (1 standard drink = 0.6 oz pure alcohol)Caffeine intake ; chocolatrePHQ-2AnswerDate RecordedPatient Health Questionnaire-2 Xnmlo837CommentsNoSex and Gender InformationValueDate RecordedSex Assigned at QvxlaDvdaar99/11/2024 1:25 PM EST Legal QkwHcyzpw46/15/2023 7:00 PM EDTGender GcqiijzuMzqhcn14/11/2024 1:25 PM EST Sexual TjchtdszvxvLnrdsxyw02/11/2024 1:25 PM ESTdocumented as of this encounter Plan of Treatment Not on file documented as of this encounter Visit Diagnoses Not on filedocumented in this encounter Care Teams Team MemberRelationshipSpecialtyStart DateEnd Date Justin Rajput MD [address] [facility] [address] [place] [address] PCP - GeneralFamily Medicine12/19/24documented as of this encounter
--- OUTSIDE RECORDS SUMMARY | 2025-04-17 11:10 | XMS_ITS | Clinical Summary ---
Author Organization [facility] Address [address] [place] [address] Care Team Providers Care Emergency Spill Response Technician Name Role Phone Sahil Blum MD Unavailable [phone] Allergies Active AllergyReactionsCriticalityNoted MdcjXkqqdgdsPzqsmiayptUswsr49/02/2022 WywfhjbirnacMebgq99/02/2022 Medications MedicationSigDispense QuantityRefillsLast FilledStart DateEnd DateStatus lisinopril (ZESTRIL, PRINIVIL) 20 mg tablet Take by mouth.03/18/2020Active DULoxetine (CYMBALTA) 60 mg capsule 04/24/2022ctive rOPINIRole (REQUIP) 1 mg tablet 03/28/2022ctive OZEMPIC 0.25 mg or 0.5 mg(2 mg/1.5 mL) pen 06/10/2022ctive oxybutynin (DITROPAN) 5 mg tablet Take 1 tablet by mouth three times daily as needed for bladder spasm 42 tablet 10/12/2022 10:55 AM EDT10/12/2022ctive tamsulosin (FLOMAX) 0.4 mg Take 1 capsule by mouth once daily 30 minutes after the same meal each day. 30 capsule 10/12/2022 10:55 AM EDT10/12/2022ctive Active Problems ProblemNoted DateDiagnosed SydhHsjwjrcnvjzknmv86/31/0984Ljzhdnjfitzil35/31/2023 Qsmlrdldindviq36/31/5369Sitejwlyvxmrah03/31/2023Low urine rbfqoe8310/21/2022 Social History Tobacco UseTypesPacks/DayYears UsedDateSmoking Tobacco: NeverPassive Smoke Exposure: CurrentSmokeless Tobacco: Never Tobacco Cessation:Counseling Given: Not Answered Area Deprivation IndexAnswerDate RecordedNational Score (1-100), lower number is lower kaem242004/26/2023State Score (1-10), lower number is lower bbia07706/27/2022 Data from: https://www.neighborhoodatlas.medicine.[facility]/. Last address used for zslqryjnv[address]04/26/2023CommentsUnknownSex and Gender InformationValueDate RecordedSex Assigned at BirthNot on fileLegal SexFemale 07/07/2022 10:09 AM ESTGender IdentityNot on fileSexual OrientationNot on file Last Filed Vital Signs Vital SignReadingTime TakenCommentsBlood Wfgynfke282/7910/12/2022 1:54 PM EDT Eicfo1703/22/2023 1:54 PM POGYiwxnjuauvj33.3 ??C (97.3 ??F)10/12/2022 12:35 PM EDTRespiratory Cyio858810/12/2022 1:54 PM EDTOxygen Njfkecibuq63%10/12/2022 1:54 PM EDTInhaled Oxygen Concentration--Fjwwdl76.8 kg (134 lb)09/28/2022 1:04 PM EDT Bcwxln837 cm (5' 3 )09/28/2022 1:04 PM EDTBody Mass Index23.7409/28/2022 1:04 PM EDT Plan of Treatment Health MaintenanceDue DateLast DoneCommentsAnxiety Qirohppty00/25/1983Depression Ojhvhdrfk61/25/1983HIV Hogsriemn64/25/1983Hepatitis C Rmxubydqt19/25/1983 Cervical Cancer Zglhxuwok20/25/1986Mammogram Lwimwwffi16/25/2005CT Colonography 2009Cologuard (FIT-DNA)11/15/20095326Qghebzduaex36/25/2010Colorectal Cancer Thlaxftqy34/25/2010Fecal Occult Blood2009Lipid Ksfjvvito72/25/2010 Jguvwsnfsuaqh73/25/2010Pneumococcal Vaccine: 50+ (1 of 1 - PCV)2014 Shingrix Vaccine (1 of 2)2014DTaP,Tdap,Td Vaccine (2 - Td or Tdap) Covid-19 Vaccine ( season)/07/2021, 04/23/2021, 06/27/2020, Additional history existsInfluenza Vaccine (#1) /01/2019Diabetes Cpvgbkcse03/08/666744/12/2022, 07/14/2022RSV Vaccine (1 - 1-dose 75+ series)11/16/2039 Medical Devices ImplantedTypeAreaManufacturerDevice IdentifierShelf Expiration DateModel / Serial / LotL Ureter StentStentUreterStent Inlay [place] 7fr [employer] [place] [employer] Phreecoat 24cm Ureteral - [id number] Implanted:Qty[facility] StentsLeft: Ureter FANI QYFVYIRQB51/24/[id number] / / [id number] Inlay [place] 6fr [employer] Phreecoat 24cm Ureteral - [id number] Implanted:Qty: 1 on 10/12/2022 at [facility] StentsRight: Ureter [employer] CWREQRUZ25/21/[id number] / / [id number] Procedures Procedure NamePriorityDate/TimeAssociated DiagnosisCommentsBASIC METABOLIC PANEL Mrsjkjx8909/28/2022 9:36 AM EDT Nephrolithiasis Abnormal urinalysis from Last 3 Months or Most Recently Relevant to Health Maintenance Results * (ABNORMAL) BASIC METABOLIC PNL (09/28/2022 9:36 AM EDT)ComponentValueRef Range Test MethodAnalysis TimePerformed AtPathologist KhmxeazwbWstbeta5733 - 99 mg/dL09/28/2022 11:01 AM EDTNORTHCOAST UNIV[facility]ITY [facility] LABComment: The [place] Diabetes Association (ADA) provides guidance for cutoff values for fasting glucose andrandom glucose. The ADA defines fasting as no [...] Standards of Medical Care in Diabetes 2016, [place] Diabetes Association. Diabetes Care. 2016.39(Suppl 1). IOV252 - 21 mg/dL09/28/2022 11:01 AM [facility] Creatinine1.62(H)0.58 - 0.96 mg/dL09/28/2022 11:01 AM [facility] MNERzmpbw593280 - 144 mmol/L09/28/2022 11:01 AM [facility] LABPotassium5.03.7 - 5.1 mmol/L09/28/2022 11:01 AM [facility] GHNRxsfazfu619(H)97 - 105 mmol/L09/28/2022 11:01 AM [facility] WHROG74001 - 30 mmol/L09/28/2022 11:01 AM [facility] LABAnion Gap8(L)9 - 18 mmol/L 09/28/2022 11:01 AM [facility] LABCalcium, Total9.58.5 - 10.2 mg/dL09/28/2022 11:01 AM [facility] Estimated Glomerular Filtration Rate37(L)>=60 mL/min/1.73m 09/28/2022 11:01 AM [facility] LABComment:Estimated Glomerular Filtration Rate (eGFR) is calculated using the 2020 CKD-EPI creatinine equation. This equation utilizes serum creatinine, sex, and age as parameters. The creatinine assay has traceable calibration to isotope dilution- mass spectrometry. Refer to KDIGO guidelines for clinical interpretation. In patients with unstable renal function, e.g. those with acute kidney injury, the eGFRmay not accurately reflect actual GFR.Specimen (Source)Anatomical Location / LateralityCollection Method / VolumeCollection TimeReceived TimeBloodBLOOD SPECIMEN / UnknownVenipuncture / Zcnwayy6809/28/2022 9:36 AM EDT09/28/2022 9:36 AM EDT Narrative Authorizing ProviderResult TypeResult Antonio Odonnell MDLABORATORYFinal ResultPerforming OrganizationAddressCity/State/ZIP CodePhone Number [facility] [address] [place] [address] from Last 3 Months or Most Recently Relevant to Health Maintenance Insurance Care Teams Team MemberRelationshipSpecialtyStart DateEnd Sahil Blum MD [address] [place] [phone] ReferringUrolog07/07/22
--- OUTSIDE RECORDS SUMMARY | 2025-04-17 11:11 | XMS_ITS | Encounter Summary ---
Author Organization [facility] Address [address] [place] [address] Care Team Providers Care Card Maker Name Role Phone Justin Rajput MD Primary Care Provider + [phone] Encounter Details DateTypeDepartmentCare Team (Latest Contact Info)Sioxqkpfpwd99/12/2025Telephone [facility] [address] Medicine [address] [facility] [address] [place] [address] Justin Rajput MD 112 [facility] [address] [place] [address] Social History Tobacco UseTypesPacks/DayYears UsedDateSmoking Tobacco: NeverSmokeless Tobacco: NeverAlcohol UseStandard Drinks/WeekCommentsNot Currently0 (1 standard drink = 0.6 oz pure alcohol)Caffeine intake ; chocolatrePHQ-2AnswerDate RecordedPatient Health Questionnaire-2 Fdzgi433CommentsNoSex and Gender InformationValueDate RecordedSex Assigned at NlduaCyirex40/11/2024 1:25 PM EST Legal NelZdqkyn03/15/2023 7:00 PM EDTGender OwklclbqEvarit56/11/2024 1:25 PM EST Sexual NfooqlazabyZapqrgpy36/11/2024 1:25 PM ESTdocumented as of this encounter Miscellaneous Notes * Telephone Encounter - Hanane Thapa MA - 04/05/2025 11:45 AM EST Patient was notified and verbalized understanding. He/She knows to contact office with any further questions. Labs ordered for 3 months. Home sleep study orders filled out and placed on [facility] desk. * Telephone Encounter - Justin Rajput MD - 04/04/2025 1:22 PM EST I reviewed her labs. Notify her that she is not anemic. If anything she actually has a little bit too much blood. At this point it is not clinically significant. However could be caused by significant sleep apnea. If shehas risk factor she may want to get a home sleep study. She should stay hydrated. We should repeat a CBC in 3 months. Her B12 and iron are in the normal range and just barely below what I would call optimal so I thinkwe are good for now documented in this encounter Plan of Treatment Not on file documented as of this encounter Visit Diagnoses Diagnosis Polycythemia- Primary Polycythemia, secondary documented in this encounter Care Teams Team MemberRelationshipSpecialtyStart DateEnd Date Justin Rajput MD [address] [address] PCP - GeneralFamily Medicine12/19/24documented as of this encounter
--- OUTSIDE RECORDS SUMMARY | 2025-04-17 11:11 | XMS_ITS | Clinical Summary ---
Author Organization [facility] Address [address] [place] [address] Phone Care Team Providers Care Optical Sales Associate Name Role Phone Balbina Napoles WINK CUTTER OPERATOR-APPAREL STOCK CHECKER Primary Care Provider Social History Tobacco UseTypesPacks/DayYears UsedDateSmoking Tobacco: Never Assessed CommentsUnknownSex and Gender InformationValueDate RecordedSex Assigned at Not on fileLegal KutUdihny17/29/2022 4:01 AM ESTGender IdentityNot on fileSexual OrientationNot on file Last Filed Vital Signs Vital SignReadingTime TakenCommentsBlood Iqqbgwlx90/80107/06/2021 3:50 PM EST Fmhoy00384/13/2022 3:49 PM ESTTemperature--Respiratory Rate--Oxygen Saturation-- Inhaled Oxygen Concentration--Gpzgqi26.1 kg (148 lb)05/05/2022 3:49 PM ESTHeight 160 cm (5' 3 )05/05/2022 3:49 PM ESTBody Mass Index26.22107/06/2021 3:49 PM EST Plan of Treatment Health MaintenanceDue DateLast DoneCommentsCT Agctpfbfmsif45/25/1965Colonoscopy 1964Colorectal Cancer Mownhxvfy20/25/1965FIT-DNA (Cologuard)1964FIT 1964HIV Hcduiuucn88/25/1965Lipid Panel1964 2241Mufmsgyjrjjcg15/25/1965 Yearly Adult Ifiimftu25/25/1965MMR Vaccines (1 of 1 - Standard series)1965 Diabetes Qbtkhmhmx94/25/1983Hepatitis C Gmqfljycp63/25/1983Cervical Cancer Rbbmenkgu97/25/1986HPV/Uyhkfj8511/15/1985Pap Smear1985DTaP/Tdap/Td Vaccines (1 - Tdap)11/15/19863726Irbccwmap61/25/2005Pneumococcal Vaccine (1 of 1 - PCV) 2014Zoster Vaccines (1 of 2)2014Influenza Vaccine (#1)2024 COVID-19 Vaccine (1 - season)2025RSV High Risk: (Elderly (60+) or Population) (1 - 1-dose 75+ series)11/16/2039HIB VaccinesAged OutNo longer eligible based on patient's age to complete this topicHPV VaccinesAged OutNo longer eligible based on patient's age to complete this topicHepatitis A VaccinesAged OutNo longer eligible based on patient's age to complete this topic Hepatitis B VaccinesAged OutNo longer eligible based on patient's age to complete this topicIPV VaccinesAged OutNo longer eligible based on patient's age to complete this topicMeningococcal VaccineAged OutNo longer eligible based on patient's age to complete this topicRotavirus VaccinesAged OutNo longer eligible based on patient's age to complete this topic Care Teams Team MemberRelationshipSpecialtyStart DateEnd Date Balbina Napoles, WINK CUTTER OPERATOR-APPAREL STOCK CHECKER [address] [place] [address] PCP - Srvucyy83/13/22
--- OUTSIDE RECORDS SUMMARY | 2025-04-17 11:11 | XMS_ITS | Clinical Summary ---
Author Organization [facility] Address [address] [place] [address] Care Team Providers Care Properties Supervisor Name Role Phone Justin Rajput MD Primary Care Provider + [phone] Allergies Active AllergyReactionsCriticalityNoted GhywMgztfxfxXqdvbvbubwEmescPox08/02/2022 JnrmypxeAgi34/11/2024 Other Reaction(s): itching Valacyclovir BvfVzr4206/03/2023 Other Reaction(s): hives, itching Medications MedicationSigDispense QuantityRefillsLast FilledStart DateEnd DateStatus furosemide (Lasix) 20 MG tablet Indications:Stage 3b chronic kidney disease (CMS-HCC)Take 1 tablet (20 mg) by mouth Daily 90 tablet ctive furosemide (Lasix) 40 MG tablet Indications:Stage 3b chronic kidney disease (CMS-HCC)Take 1 tablet (40 mg) by mouth Daily 30 tablet Discontinued(Reorder) ergocalciferol (Vitamin D2) 1.25 MG (29730 UT) capsule Take 1 capsule by mouth 1 (one) time per weekDiscontinued (Med list cleanup) polyethylene glycol, PEG, 3350 (Miralax) 17 g packet Take 17 g by mouth DailyDiscontinued(Med list cleanup) HYDROcodone-acetaminophen (Lagrange) 5-325 MG tablet Indications:PyelonephritisTake 1 tablet by mouth every 6 (six) hours if needed for severe pain for up to 3 days 12 tablet Discontinued(Med list cleanup) Active Problems ProblemNoted DateDiagnosed DateClass 1 obesity due to excess calories with serious comorbidity and body mass index (BMI) of 30.0 to 30.9 in adult04/09/2025 Stage 4 chronic kidney ychwkdt1401/26/2024Secondary hyperparathyroidism of renal khjuwk4101/26/2024Iron deficiency usqwau8201/26/2024Menopausal wlyunmaz19/04/2024 History of Prince-en-Y gastric bstqlt2406/22/2023High output congestive heart qehwigd1906/16/2023MI 30.0-30.9,adult06/08/2023enign essential hypertension 06/03/2023Herniated lumbar intervertebral disc06/03/2023History of total hysterectomy with bilateral salpingo-oophorectomy (BSO)06/03/2023Major depressive disorder with single hbypfkl5106/03/2023Meralgia paresthetica of both lower dldobqvbqeh95/11/2024Seasonal allergic rhinitis due to hcmqhl6206/03/2023 Slow transit ycuixafqfaew71/11/2024 Resolved Problems ProblemNoted DateDiagnosed DateResolved DateStage 3b chronic kidney disease Morbid zdztmmt44Type 2 diabetes mellitus without complication, without long-term current use of jazdhdv8506/03/2023 06/08/2023 Encounters DateTypeDepartmentCare MoleDxkkgnwsayi62/17/2025bstract [facility] [address] [address] [place] [address] Justin Rajput MD 04/09/2025bstract [facility] [address] [facility] 100 [place] [address] Justin Rajput MD 04/04/2025Telephone [facility] [address] [facility] 100 [place] [address] Justin Rajput MD 04/03/2025 8:30 AM ESTOffice Visit [facility] [address] [place] [address] Justin Rajput MD Benign essential hypertension (Primary Dx); Stage 4 [...] index (BMI) of 30.0 to 30.9 in adult04/03/2025amboo flowsheet [facility] [address] [facility] 100 [place] [address] Justin Rajput MD 04/03/20256981Nbnxws08/04/9812Prwaql14/03/2025Orders Only [facility] [address] [place] [address] Justin Rajput MD 03/12/2025Telephone [facility] [address] [facility] 100 [place] [address] Justin Rajput MD Med Goisvn9302/19/2025 3:00 PM EDTAncillary Procedure [facility] [address] [place] [address] 02/19/20252253Etfzlm02/04/2025Travelfrom Last 3 Months Immunizations ImmunizationAdministration DatesNext DueInfluenza, recombinant, quadrivalent, injectable, preservative free03/01/2019Tdap10/04/2012 Family History Medical HistoryRelationNameCommentsAlcohol abuseFatherHarold GahnDepression FatherHarold GahnHeart diseaseFatherHarold GahnHypertensionFatherHarold Gahn HypotensionFatherHarold GahnCancerMotherBarbara GahnDepressionMotherBarbara Gahn DiabetesMotherBarbara GahnHeart diseaseMotherBarbara GahnHypertensionMother Carolchica AndrewsKigianfranco diseaseMotherBarbara GahnMiscarriages / StillbirthsMother Carol GabrownStrokeMotherLa Paz Regional Hospitalradha AndrewsRelationNameStatusCommentsFatherHaralexy Andrews DeceasedMotherLa Paz Regional Hospitalradha GahnDeceased Social History Tobacco UseTypesPacks/DayYears UsedDateSmoking Tobacco: NeverSmokeless Tobacco: Never Tobacco Cessation:Counseling Given: Not Answered Alcohol UseStandard Drinks/WeekCommentsNot Currently0 (1 standard drink = 0.6 oz pure alcohol)Caffeine intake ; chocolatrePHQ-2AnswerDate RecordedPatient Health Questionnaire-2 Dhbpc171CommentsNoSex and Gender Information ValueDate RecordedSex Assigned at MesztHsgdrr70/11/2024 1:25 PM ESTLegal Sex Iteyyq2808/05/2022 7:00 PM EDTGender ZnapmggsBokrdq18/11/2024 1:25 PM ESTSexual FgdoanlcdqrGwvtpljc93/11/2024 1:25 PM EST Last Filed Vital Signs Vital SignReadingTime TakenCommentsBlood Qlwbvpue915/6807 2:38 PM EDT Culti421804/13/2024 2:04 PM ESTTemperature--Respiratory Rate--Oxygen Rmdemtvasw05% 04/13/2024 2:04 PM ESTInhaled Oxygen Concentration--Pvmool26.1 kg (170 lb) 04/03/2025 8:47 AM MDEAljipe196 cm (5' 3 )04/03/2025 8:47 AM ESTBody Mass Index 30.1111 8:47 AM EST Plan of Treatment Health MaintenanceDue DateLast DoneCommentsCT Uadhpwuglfje57/25/1965Colonoscopy 1964FIT1964FOBT1964 9894Rovxiifelzfyf85/25/1965Diabetes: Hemoglobin A1C, 01/26/2024, 08/02/2017Influenza Vaccine (#1)2025 03/01/2019Postponed from 01/22/2025 (Patient Refused)Diabetes: Urine Protein Eqieoxukm43/, 04/18/20246354Jdqdnsfny92, 02/17/2024, 06/05/2014Diabetes: Retinopathy Ieynrllrz95 Colorectal Cancer Jqyngckhw41/19/2028FIT-DNA8011/09/2024OVID-19 Vaccine Tsmvvhesattn61/03/2022, 04/23/2021, 06/27/2020, Additional history exists Pneumococcal Vaccine: Pediatrics (0 to 5 Years) and At-Risk Patients (6 to 64 Years)Discontinued Procedures Procedure NamePriorityDate/TimeAssociated DiagnosisCommentsVITAMIN S45Qssqmfk 04/03/2025 9:43 AM EST Vitamin B12 deficiency IRON AND TOTAL IRON BINDING JAIVMKYXMkbounn53/11/2025 9:43 AM EST Benign essential hypertension Iron deficiency anemia secondary to inadequate dietary iron intake Iron malabsorption (HCC) CBC (INCLUDES DIFF/PLT)Vttpcmp5204/03/2025 9:43 AM EST Benign essential hypertension Iron deficiency anemia secondary to inadequate dietary iron intake Iron malabsorption (HCC) BI MAMMOGRAM SCREENING TOMOSYNTHESIS MVYUZUZEDOfnyudm28/29/2025 2:51 PM EDT Screening mammogram, encounter for MICROALBUMIN / CREATININE URINE WJXNFOywrvly56/14/2025 10:06 AM EDT Benign essential hypertension Stage 4 chronic kidney disease (HCC) HEMOGLOBIN N9YEzjseht40/14/2025 9:03 AM EDT Stage 4 chronic kidney disease (HCC) Screening for diabetes mellitus (DM) DIABETIC RETINOPATHY SCREENING - OU - BOTH TUSLWyeamtx76/26/2025 5:07 PM EDTLAB COLOGUARD?? COLON CANCER TZUAIKFfbwqip08/19/2025 7:30 AM EDT Encounter for screening for malignant neoplasm of colon from Last 3 Months or Most Recently Relevant to Health Maintenance Results * Iron and TIBC (04/03/2025 9:43 AM EST)ComponentValueRef RangeTest Method Analysis TimePerformed AtPathologist SignatureIRON, RLGSO5308 - 160 mcg/dL QUESTIRON BINDING JKZSAXOE191287 - 450 mcg/dL (calc)QUEST% QZWKIYGGDS2574 - 45 % (calc)QUESTSpecimen (Source)Anatomical Location / LateralityCollection Method / VolumeCollection TimeReceived TimeBloodVenous blood specimen / Zxkamcg4804/03/2025 9:43 AM EST04/03/2025 9:43 AM EST Narrative Resulting Agency Comment Performing Organization Information ?Site ID: QPT ?Name: [facility] ?Address: [address] [place] [address], [address] [place] [phone] ?Director: Gigi Paul MD Authorizing ProviderResult TypeResult StatusEdaviva Rajput MDLAB BLOOD ORDERABLESFinal ResultPerforming OrganizationAddressCity/State/ZIP CodePhone Number QUEST * (ABNORMAL) CBC and differential (04/03/2025 9:43 AM EST)ComponentValueRef RangeTest MethodAnalysis TimePerformed AtPathologist SignatureWHITE BLOOD CELL COUNT5.03.8 - 10.8 Thousand/uLQUESTRED BLOOD CELL COUNT5.34(H)3.80 - 5.10 Million/pLMFWCVTRRHBKREXI34.7(H)11.7 - 15.5 g/vYXFATHNVRPJQNHDH71.1(H)35.0 - 45.0 %XSQUIHMU11.180.0 - 100.0 mYPCQDDWYO57.427.0 - 33.0 xvBDDHUQKMW31.632.0 - 36.0 g/dLQUESTComment: For adults, a slight decrease in the calculated MCHC value (in the range of 30 to 32 g/dL) is most likely not clinically significant; however, it should be interpreted with caution in correlation with other red cell parameters and the patient's clinical condition. RDW13.811.0 - 15.0 %QUESTPLATELET RTRVS283269 - 400 Thousand/uLQUESTMPV9.87.5 - 12.5 fLQUESTABSOLUTE NEUTROPHILS3,1651,500 - 7,800 cells/uLQUESTABSOLUTE BAND NEUTROPHILSCANCELED0 - 750 cells/uLQUESTComment:Result canceled by the ancillary.ABSOLUTE METAMYELOCYTESCANCELED0 cells/uLQUESTComment:Result canceled by the ancillary.ABSOLUTE MYELOCYTESCANCELED0 cells/uLQUESTComment:Result canceled by the ancillary.ABSOLUTE PROMYELOCYTESCANCELED0 cells/uLQUESTComment: Result canceled by the ancillary.ABSOLUTE LYMPHOCYTES1,774840 - 3,900 cells/uL QUESTABSOLUTE OZDXHIPEW622756 - 950 cells/uLQUESTABSOLUTE XYHYIATYAVW00383 - 500 cells/uLQUESTABSOLUTE FQLGJAXZW475 - 200 cells/uLQUESTABSOLUTE BLASTSCANCELED0 cells/uLQUESTComment:Result canceled by the ancillary.ABSOLUTE NUCLEATED RBC CANCELED0 cells/uLQUESTComment:Result canceled by the ancillary.VEXLYOGDKEZ59.3% QUESTBAND NEUTROPHILSCANCELED%QUESTComment:Result canceled by the ancillary. METAMYELOCYTESCANCELED%QUESTComment:Result canceled by the ancillary. CIPROFLOXICINCANCELED%QUESTComment:Result canceled by the ancillary. PROMYELOCYTESCANCELED%QUESTComment:Result canceled by the ancillary.LYMPHOCYTES 25.7%QUESTREACTIVE LYMPHOCYTESCANCELED0 - 10 %QUESTComment:Result canceled by the ancillary.MONOCYTES6.2%QUESTEOSINOPHILS3.8%QUESTBASOPHILS1.0%QUESTBLASTS CANCELED%QUESTComment:Result canceled by the ancillary.NUCLEATED RBCCANCELED0 /100 WBCQUESTComment:Result canceled by the ancillary.COMMENT(S)CANCELEDQUEST Comment:Result canceled by the ancillary.Specimen (Source)Anatomical Location / LateralityCollection Method / VolumeCollection TimeReceived TimeBloodVenous blood specimen / Yqqnlrn6704/03/2025 9:43 AM EST04/03/2025 9:43 AM EST Narrative Resulting Agency Comment Performing Organization Information ?Site ID: QPT ?Name: [facility] ?Address: [address] [place] [address], [address] [place] [phone] ?Director: Gigi Paul MD Authorizing ProviderResult TypeResult StatusEdaviva Rajput MDLAB BLOOD ORDERABLESFinal ResultPerforming OrganizationAddressCity/State/ZIP CodePhone Number [facility]ST * Vitamin B12 (04/03/2025 9:43 AM EST)ComponentValueRef RangeTest MethodAnalysis TimePerformed AtPathologist SignatureVITAMIN [id number] - 1,100 pg/mLQUEST Specimen (Source)Anatomical Location / LateralityCollection Method / Volume Collection TimeReceived TimeBloodVenous blood specimen / Awcwpgc4704/03/2025 9:43 AM EST04/03/2025 9:43 AM EST Narrative Resulting Agency Comment Performing Organization Information ?Site ID: QPT ?Name: [facility] ?Address: [address] [place] [address], [address] [place] [phone] ?Director: Gigi Paul MD Authorizing ProviderResult TypeResult StatusEdaviva Rajput MDLAB BLOOD ORDERABLESFinal ResultPerforming OrganizationAddressCity/State/ZIP CodePhone Number [facility]ST * Bilateral screening mammogram with tomosynthesis (02/19/2025 2:51 PM EDT) Anatomical RegionLateralityModalityBreastBilateralMammographySpecimen (Source) Anatomical Location / LateralityCollection Method / VolumeCollection Time Received Time02/19/2025 3:50 PM EDT Impressions 02/19/2025 3:56 PM EDT Impression: No specific evidence of malignancy seen in either breast. BIRADS 2 - Benign Findings DENSITY: There are scattered areas of fibroglandular density. FOLLOW-UP: Routine Screening Mammogram Board Certified Radiologists. ??Accredited by the ACR and FDA. MAMMOGRAPHY IS VERY IMPORTANT TO YOUR HEALTH. ??THE [place] [employer]IET[employer] GUIDELINES RECOMMEND THAT WOMEN 40 YEARS OF AGE AND OLDER SHOULD HAVE A MAMMOGRAM EVERY YEAR. A REMINDER LETTER WILL BE SENT AT THE APPROPRIATE TIME. ?? ELECTRONICALLY SIGNED BY: Redd Platt M.D. Narrative 02/19/2025 3:56 PM EDT Examination: BI MAMMOGRAM SCREENING TOMOSYNTHESIS BILATERAL Clinical History: screen breast ca Technique: Screening digital mammography study of both breasts was performed with 2-D and 3-D tomosynthesis imaging. Study was compared to the prior exam dated 02/17/2024. Findings: There is no evidence of interval dominant spiculated mass, grouped microcalcifications, or skin thickening which would be suggestive of malignancy. ?? Partially visualized axillary lymph nodes are noted on the left which appear grossly unremarkable. Procedure Note Redd Platt MD - 02/19/2025 Examination: BI MAMMOGRAM SCREENING TOMOSYNTHESIS BILATERAL Clinical History: screen breast ca Technique: Screening digital mammography study of both breasts wasperformed with 2-D and 3-D tomosynthesis imaging. Study was compared tothe prior exam dated 02/17/2024. Findings: There is no evidence of interval dominant spiculated mass,grouped microcalcifications, or skin thickening which would be suggestiveof malignancy. Partially visualized axillary lymph nodes are noted on the left whichappear grossly unremarkable. IMPRESSION: Impression: No specific evidence of malignancy seen in either breast. BIRADS 2 - Benign Findings DENSITY: There are scattered areas of fibroglandular density. FOLLOW-UP: Routine Screening Mammogram Board Certified Radiologists. Accredited by the ACR and FDA. MAMMOGRAPHY IS VERY IMPORTANT TO YOUR HEALTH. THE [place] [employer] GUIDELINES RECOMMEND THAT WOMEN 40 YEARS OF AGE AND OLDER SHOULD HAVE AMAMMOGRAM EVERY YEAR. A REMINDER LETTER WILL BE SENT AT THE APPROPRIATE TIME. ELECTRONICALLY SIGNED BY: Redd Platt M.D. Authorizing ProviderResult TypeResult StatusEdaviva Rajput MDIMG BI PROCEDURES Final Result * Microalbumin / creatinine urine ratio (12/04/2024 10:06 AM EDT)ComponentValue Ref RangeTest MethodAnalysis TimePerformed AtPathologist SignatureCREATININE, RANDOM OSGPQ7280 - 275 mg/dLQUESTALBUMIN, URINE0.8See Note: mg/dLQUESTComment: Reference Range: Reference Range Not established ALBUMIN/CREATININE RATIO, RANDOM URINE9<30 mg/g creatQUESTComment: The ADA defines abnormalities in albumin excretion as follows: Albuminuria Category ?Result (mg/g creatinine) Normal to Mildly increased <30 Moderately increased ? 30-299 Severely increased > OR = 300 The ADA recommends that at least two of three specimens collected within a 3-6 month period be abnormal before considering a patient to be within a diagnostic category. Specimen (Source)Anatomical Location / LateralityCollection Method / Volume Collection TimeReceived TimeUrineUrine specimen obtained by clean catch procedure / Pyaydig8512/04/2024 10:06 AM EDT12/04/2024 10:07 AM EDT Narrative [facility] - 12/05/2024 11:17 AM EDT SPLIT 12/04/2024 FROM [id number] Resulting Agency Comment Performing Organization Information ?Site ID: QPT ?Name: [facility] ?Address: [address] , [address] [place] [address] ?Director: Gigi Paul MD Authorizing ProviderResult TypeResult StatusJustin Rajput MDLAB URINE ORDERABLESFinal ResultPerforming OrganizationAddressCity/State/[facility] CodePhone Number [facility] * Hemoglobin A1c (12/04/2024 9:03 AM EDT)ComponentValueRef RangeTest Method Analysis TimePerformed AtPathologist SignatureHemoglobin A1C5.6<5.7 %QUEST Comment: For the purpose of screening for the presence of diabetes: <5.7% Consistent with the absence of diabetes 5.7-6.4% ?Consistent with increased risk for diabetes ?(prediabetes) > or =6.5% Consistent with diabetes This assay result is consistent with a decreased risk of diabetes. Currently, no consensus exists regarding use of hemoglobin A1c for diagnosis of diabetes in children. According to [place] [employer] Association (ADA) guidelines, hemoglobin A1c <7.0% represents optimal control in non- diabetic patients. Different metrics may apply to specific patient populations. Standards of Medical Care in Diabetes(ADA). Specimen (Source)Anatomical Location / LateralityCollection Method / Volume Collection TimeReceived TimeBloodVenous blood specimen / Utrqzew1312/04/2024 9:03 AM EDT12/04/2024 9:04 AM EDT Narrative [facility] - 12/05/2024 3:18 AM EDT FASTING:YES PATIENT UNABLE TO VOID; ADVISED TO RETURN FOR COLLECTION. FASTING: YES Resulting Agency Comment Performing Organization Information ?Site ID: QPT ?Name: [facility] ?Address: [address] , [address] [place] [address] ?Director: Gigi Paul MD Authorizing ProviderResult TypeResult StatusJustin OSORIO BLOOD ORDERABLESFinal ResultPerforming OrganizationAddressCity/State/ZIP CodePhone Number [facility]ST * Diabetic Retinopathy Screening - OU - Both Eyes (11/16/2024 5:07 PM EDT) Anatomical RegionLateralityModalityHeadOther Narrative Authorizing ProviderResult TypeResult StatusEdaviva ART PHOTOGRAPHY Final Result * Cologuard?? colon cancer screening (11/09/2024 7:30 AM EDT)ComponentValueRef RangeTest MethodAnalysis TimePerformed AtPathologist SignatureNONINV COLON CA DNA+OCC BLD SCRN STL-JYKIssuyufaSltlijyd64/25/2025 12:34 PM EDTEXACT Spring Pharmaceuticals (CLIA #:[id number])Comment: The Cologuard (TM) test was performed on this specimen. NEGATIVE TEST RESULT. A negative Cologuard result indicates a low likelihood that a colorectal cancer (CRC) or advanced adenoma (adenomatous polyps with more advanced pre-malignant features) is present. The chance that a person with a negative Cologuard test has a colorectal cancer is less than 1 in 1500 (negative predictive value >99.9%) or has an advanced adenoma is less than 5.3% (negative predictive value 94.7%). These data are based on a prospective cross-sectional study of 10,000 individuals at average risk for colorectal cancer who were screened with both Cologuard and colonoscopy. (Shemar Saleh. et al, N Engl J Med 2014;370(14):7604-1328) The normal value (reference range) for this assay is negative. COLOGUARD RE-SCREENING RECOMMENDATION: Periodic colorectal cancer screening is an important part ofpreventive healthcare for asymptomatic individuals at average risk for colorectal cancer. Followinga negative Cologuard result, the [place] Cancer Society and U.S. Multi-Society Task Force screening guidelines recommend a Cologuard re-screening interval of 3 years. References: [place] [employer] Society Guideline for Colorectal Cancer Screening: https://www.cancer.or g/cancer/akknc-ghwkfk-wxuclm/fdjzicdyz-pkobcyctn-vnsgahx/acs-recommendations.htm skyla; Gary LINN, Fanta FUNES, David LAWRENCE, Colorectal Cancer Screening: Recommendations for Physicians and Patients from the U.S. Multi-Society Task Force on Colorectal Cancer Screening , Am J Gastroenterology 2017; 112:6827-5616. TEST DESCRIPTION: Composite algorithmic analysis of stool DNA-biomarkers with hemoglobin immunoassay. ?? Quantitative values of individual biomarkers are not reportable and are not associated with individual biomarker result reference ranges. Cologuard is intended for colorectal cancer screening ofadults of either sex, 45 years or older, who are at average-risk for colorectal cancer (CRC). Cologuard has been approved for use by the U.S. FDA. The performance of Cologuard was established in a cross sectional study of average-risk adults aged 50-84. Cologuard performance in patients ages 45 to 49 years was estimated by sub-group analysis of near-age groups. Colonoscopies performed for a positive result may find as the most clinically significant lesion: colorectal cancer [4.0%], advanced adenoma (including sessile serrated polyps greater than or equal to 1cm diameter) [20%] or non- advanced adenoma [31%]; or no colorectal neoplasia [45%]. These estimates are derived from a prospective cross-sectional screening study of 10,000 individuals at average risk for colorectal cancer who were screened with both Cologuard and colonoscopy. (Shemar Guillen al, N Engl J Med 2014;370(14):9224-8358.) Cologuard may produce a false negative or false positive result (no colorectal cancer or precancerous polyp present at colonoscopy follow up). A negative Cologuard test result does not guarantee the absence of CRC or advanced adenoma (pre-cancer). The current Cologuard screening interval is every 3 years. ([place] Cancer Society and U.S. Multi-Society Task Force). Cologuard performance data in a 10,000 patient pivotal study using colonoscopy as the reference method can be accessed at the following location: www.[employer].Simplesurance/results. Additional description of the Cologuard test process, warnings and precautions can be found at www.cologuard.com. Specimen (Source)Anatomical Location / LateralityCollection Method / Volume Collection TimeReceived TimeStool specimen (specimen)11/09/2024 7:30 AM EDT 11/10/2024 12:50 PM EDT Narrative Authorizing ProviderResult TypeResult StatusJustin OSORIO MOLECULAR DIAGNOSTICS ORDERABLESFinal ResultPerforming OrganizationAddressCity/State/ZIP CodePhone Number .[employer] (CLIA #:[id number]) [address] [address], [employer] (CLIA #:[id number]) [address] [phone] from Last 3 Months or Most Recently Relevant to Health Maintenance Insurance Care Teams Team MemberRelationshipSpecialtyStart DateEnd Date Justin Rajput MD [address] [facility] [address] [place] [address] (Fax) PCP - GeneralFamily Medicine12/19/24
--- OUTSIDE RECORDS SUMMARY | 2025-04-17 11:11 | XMS_ITS | Encounter Summary ---
Author Organization [facility] Address [address] [place] [address] Care Team Providers Care Treasury Analyst Name Role Phone Justin Rajput MD Primary Care Provider + [phone] Encounter Details DateTypeDepartmentCare Team (Latest Contact Info)Copidkynvdz01/17/2025bstract [facility] [place] [address] [facility] [address] [facility] [address] [place] [address] Justin Rajput MD [address] [facility] 100 [place] [address] (Fax) Social History Tobacco UseTypesPacks/DayYears UsedDateSmoking Tobacco: NeverSmokeless Tobacco: NeverAlcohol UseStandard Drinks/WeekCommentsNot Currently0 (1 standard drink = 0.6 oz pure alcohol)Caffeine intake ; chocolatrePHQ-2AnswerDate RecordedPatient Health Questionnaire-2 Drtvu358CommentsNoSex and Gender InformationValueDate RecordedSex Assigned at CnhngIrijpo23/11/2024 1:25 PM EST Legal ZglTxgymn94/15/2023 7:00 PM EDTGender RlxunxojUsaedq81/11/2024 1:25 PM EST Sexual NsmgaqzxajsAgotdabn98/11/2024 1:25 PM ESTdocumented as of this encounter Plan of Treatment Not on file documented as of this encounter Visit Diagnoses Not on filedocumented in this encounter Care Teams Team MemberRelationshipSpecialtyStart DateEnd Date Justin Rajput MD [address] [facility] [address] [place] [address] PCP - GeneralFamily Medicine12/19/24documented as of this encounter
--- OUTSIDE RECORDS SUMMARY | 2025-04-17 11:11 | XMS_ITS | Encounter Summary ---
Author Organization [facility] Address [address] [place] [address] Care Team Providers Care Medical Biller/Coder Name Role Phone Justin Rajput MD Primary Care Provider + [phone] Encounter Details DateTypeDepartmentCare Team (Latest Contact Info)Pcjwvwjiaao61/17/2025bstract [facility] [place] [address] [facility] [address] [facility] [address] [place] [id number] Justin Rajput MD [address] [facility] [address] [place] [address] (Fax) Social History Tobacco UseTypesPacks/DayYears UsedDateSmoking Tobacco: NeverSmokeless Tobacco: NeverAlcohol UseStandard Drinks/WeekCommentsNot Currently0 (1 standard drink = 0.6 oz pure alcohol)Caffeine intake ; chocolatrePHQ-2AnswerDate RecordedPatient Health Questionnaire-2 [id number] and Gender InformationValueDate RecordedSex Assigned at LqohrJzyscr42/11/2024 1:25 PM EST Legal BkgHgdrlt71/15/2023 7:00 PM EDTGender KdldgngoBnydkz10/11/2024 1:25 PM EST Sexual NepvorxrbylLhviyqvc20/11/2024 1:25 PM ESTdocumented as of this encounter Plan of Treatment Not on file documented as of this encounter Visit Diagnoses Not on filedocumented in this encounter Care Teams Team MemberRelationshipSpecialtyStart DateEnd Date Justin Rajput MD [address] [facility] [address] [place] [address] PCP - GeneralFamily Medicine12/19/24documented as of this encounter
--- OUTSIDE RECORDS SUMMARY | 2025-04-17 11:14 | XMS_ITS | CCD ---
Author Organization [facility] Care Team Providers Care Dairy Helper Name Role Phone Unavailable Primary Care Provider [...] Admitting Unavailmindi HOBBS, DR CALEB [place] Attending Unavailmindi HBOBS, DR CALEB [place] Consulting Unavailmindi WILD, DR NATACHA العراقي Consulting Unavailable BALBINA NAPOLES Primary Care Unavailable JEISON, DR SUZI Urrutia Admitting Unavailable JEISON, DR SUZI Urrutia Attending Unavailable JEISON, DR SUZI Urrutia Consulting Unavailable KULWANT, DR CHALO Frazier Consulting Unavailable TORRI, DR NATACHA العراقي Consulting Unavailable MARLYS HERNANDEZ Consulting Unavailable SANDY CHNE Consulting Unavailable HARMONY BENITEZ Consulting Unavailable KULWANT, DR CHALO Frazier Admitting Unavailable KULWANT, DR CHALO Frazier Attending Unavailable BALBINA NAPOLES Primary Care Unavailable KULWANT, DR CHALO Frazier Consulting Unavailable TORRI, DR NATACHA العراقي Consulting Unavailable BALBINA NAPOLES Admitting Unavailable BALBINA NAPOLES Attending Unavailable BALBINA NAPOLES Primary Care Unavailable BALBINA NAPOLES Consulting Unavailable KULWANT, DR CHALO Frazier Admitting Unavailable COOK, DR [...] DR BRADEN Hallman Consulting Unavailable YESIKA, BALBINA Arriaga Primary Care Physician Balbina Napoles Unavailable Unavailable Unavailable MD Chalo Blum Attending Provider CESAR Napoles Primary Care Provider Chalo Blum Unavailable SAMY ODONNELL Referring Unavailable Irina Cavanaugh Unavailable O'LARISA, MARLEY Attending Unavailable ODONNELL, SAMY Admitting Unavailable ODONNELL, SAMY Attending Unavailable ODONNELL, SAMY Attending Unavailable ODONNELL, SAMY Admitting Unavailable ODONNELL, SAMY Referring Unavailable ODONNELL, SAMY Attending Unavailable ODONNELL, SAMY Referring Unavailable ODONNELL, SAMY Referring Unavailable ODONNELL, SAMY Attending Unavailable ODONNELL, SAMY Referring Unavailable O'LARISA, MARLEY Attending Unavailable ODONNELL, SAMY Referring Unavailable ODONNELL, SAMY Admitting Unavailable O'LARISA, MARLEY Referring Unavailable ODONENLL, SAMY Attending Unavailable ODONNELL, SAMY Attending Unavailable Regulo REED, Justin Arriaga Primary Care Provider MD Justin Marley Primary Care Provider [phone] MD Irina Cavanaugh Attending Provider Regulo REED, Justin Arriaga Primary Care Provider Irina Cavanaugh MD Attending Provider Nacho South MD Emergency Provider Barbara Christy MD Admit Provider [phone] Barbara Christy MD Attending Provider [phone] Nacho South MD Emergency Provider [phone] Jaelyn REED, Barbara Graham Admit Provider [phone] Ross REED, Dinora Attending Provider [phone] Antonio Lawrence MD Other Provider Hugo Tejada MD Other Provider BALBINA NAPOLES Primary Care Unavailable Antonio Lawrence Attending Unavailable Antonio Lawrence Referring Unavailable Mao, Irina Admitting Unavailable Mao, Irina Attending Unavailable Justin Marley Primary Care Unavailable Mao, Irina Attending Unavailable Justin Marley Primary Care Unavailable Mao, Irina Admitting Unavailable Justin Marley Primary Care Unavailable Dinora Hawkins Attending Unavailable Jaelyn, Barbara Graham Admitting Unavailable Antonio Lawrence Consulting Unavailable Hugo Tejada Consulting Unavailable Justin Marley MD Primary Care Provider [phone] Justin Marley MD Unavailable [phone] Justin Marley MD Unavailable [phone] Justin Marley MD Primary Care Provider [phone] Justin Marley MD Primary Care Provider Justin Marley MD Unavailable JUSTIN MARLEY Attending Unavailable JUSTIN MARLEY Referring Unavailable JUSTIN MARLEY Attending Unavailable JUSTIN MARLEY Attending Unavailable Allergies Allergy ClassificationReported Allergen(s)Allergy TypeDate of OnsetReaction(s) FacilityCorticosteroids (1 source)prednisoLONEDrug Skoduvp07-38-5770smrttMercy Health Springfield Regional Medical CentervalACYclovir (1 source)valACYclovirDrug Vhwxxac53-28-1833ktappSppmadkgkOhioHealth [facility] (20 sources)prednisoLONE; Translations: [PREDNISOLONE]Drug Emsvwnv69-61-4555 [facility] (20 sources)valACYclovir; Translations: [valacyclovir]Drug Irfaefb13-09-3537 Asmita key (disorder)[facility] (20 sources)predniSONE; Translations: [prednisone]Drug Qalgwmv19-02-5037Szbc (disorder), HivesExecutive Urology of [facility] (1 source)predniSONEDrug AllergyThe [facility] (2 sources)valACYclovir; Translations: [Valtrex]Drug AllergyThe [facility] (14 sources)PrednisoneAllergy to -52-3298MxlbsFBBT Healthcare (14 sources)traMADolDrug Lvxufzz72-88-6683OM[facility] (14 sources)valACYclovirDrug Iwdhcad61-86-6796KH[facility] (1 source)valACYclovirDrug Eixpcze58-06-9728UxhlrxbdvScci [facility] Medications Current Medications MedicationDrug Class(es)DatesSig (Normalized)Sig (Original)acetaminophen 500 mg oral tablet (3 sources)Start: 72-84-4635jywa 1-3 tablets by mouth every eight hours as needed for painAcetaminophen 500 mg Tablet Active 1000 MG PO Q8H as needed for Pain Scale 1 - 3 or fever 45 April 09, 2024 12:00amStart: 10-12-2022 End: 27-70-9547ehhg 2 tablets by mouth every six hoursacetaminophen (TYLENOL EXTRA STRENGTH) 500 mg tablet Take 2 tablets by mouth every 6 hours for 14 days. 112 tablet 0 10/12/2022 10/26/2022 ActiveComment on above:Take 2 tablets by mouth every 6 hours for 14 days.acetaminophen 325 mg / HYDROcodone bitartrate 5 mg oral tablet (4 sources)Opioid AgonistStart: 12-20-2024 End: 93-15-7365gpex 1 tablet by mouth every six hours for painHYDROcodone- acetaminophen ([place]) 5-325 MG tablet Indications: Pyelonephritis Take 1 tablet by mouth every 6 (six) hours if needed for severe pain for up to 3 days 12 tablet 12/20/2024 ActiveStart: 30-66-0663tiscjlrsuykir-hydrocodone 325 mg-5 mg oral tablet 1 tab(s), Oral, q4hr Pain, 7 tab(s), Refill(s) 0,[id number], 160, cm, 06/11/22 9:42:00 EST, Height/Length Dosing, 65.6, kg, 06/11/22 9:42:00 EST, Weight Dosing Start Date: 06/18/22 Status: Ordered cefuroxime 250 mg oral tablet (6 sources)Cephalosporin AntibacterialStart: 12-19-2024 End: 79-82-7201itff 1 tablet by mouth in the morningcefuroxime (Ceftin) 250 MG tablet Indications: Burning with urination Take 1 tablet (250 mg) by mouth in the morning and 1 tablet (250 mg) before bedtime. Do all this for 7 days. 14 tablet ActiveStart: 04-06-2024 End: 25-56-0213cclr 1 tablet by mouth twice dailyCefuroxime Axetil 250 mg tablet Discontinued 250 MG PO Twice daily April 06, 2024 12:00am April 09, 2024 1:09pmduloxetine 60 mg Cap-DR (5 sources)Start: 18-05-2476goji 1 capsule by mouth once dailyduloxetine 60 mg Cap-DR 60 mg, Oral, Daily, Refills(s) 0, Depression Start Date: 03/31/22 Status: Orderedergocalciferol 1.25 mg oral capsule (10 sources)Provitamin D2 CompoundStart: 71-20-0059msng 1 capsule by mouth every weekergocalciferol (Vitamin D2) 1.25 MG (82625 UT) capsule Take 1 capsule by mouth 1 (one) time per week 04/06/2024 Activefurosemide 20 mg oral tablet (20 sources)Loop DiureticStart: 03-22-2025 End: 76-99-0063maip 1 tablet by mouth once dailyfurosemide (Lasix) 20 MG tablet Indications: Stage 3b chronic kidney disease (CMS-HCC) Take 1 tablet (20 mg) by mouth Daily 90 tablet 1 03/22/2025 09/18/2025 ActiveStart: 80-02-0496mvhp 1 tablet by mouth twice dailyFurosemide (Lasix) 40 mg tablet Active 40 MG PO Twice daily 180 January 26, 2024 6:54amStart: 06-16-2023 End: 55-93-1208gvdm 1 tablet by mouth once dailyfurosemide (Lasix) 40 MG tablet Indications: Stage 3b chronic kidney disease (CMS-HCC) Take 1 tablet (40 mg) by mouth Daily 30 tablet 08/12/2023 ActivehydrOXYzine hydrochloride 10 mg oral tablet (1 source)AntihistamineStart: 07-23-4834mhufWDMxnoo HCl 10 MG 1 tablet as needed Orally at bedtime for 90 days Feb, ActiveIron Bisglycinate Chelate (4 sources)Start: 90-06-3099uibq 30 mg by mouth once dailyIron Bisglycinate Chelate Active 30 MG PO Daily October 21, 2023 1:07pmStart: 09-02-2023 End: 16-26-4133rddf 1 mg by mouth once dailyIron Bisglycinate Chelate Discontinued MG PO Daily September 02, 2023 12:00am October 21, 2023 1:09pmStart: 71-70-1679prin 1 mg by mouth once dailyIron Bisglycinate Chelate Active MG PO Daily September 02, 2023 12:00amnitrofurantoin, macrocrystals 25 mg / nitrofurantoin, monohydrate 75 mg oral capsule (1 source)Nitrofuran AntibacterialStart: 07-16-2022 End: 14-98-5764glll 1 capsule by mouth twice daily at mealtimenitrofurantoin monohydrate and macrocrystal (MACROBID) 100 mg capsule Take 1 capsule by mouth twicedaily for 7 days. Take with food. 14 capsule 0 07/16/2022 07/23/2022 Active Comment on above:Take 1 capsule by mouth twice daily for 7 days. Take with food. oxyCODONE hydrochloride 5 mg oral tablet (1 source)Opioid AgonistStart: 09-07-2022 End: 99-57-4126znvc 1 tablet by mouth every six hours as needed for pain oxyCODONE IR (ROXICODONE) 5 mg immediate release tablet Indications: Nephrolithiasis Take 1 tablet by mouth every 6 hours as needed for pain for up to 3 days. 8 tablet 0 09/07/2022 09/10/2022 ActiveComment on above:Take 1 tablet by mouth every 6 hours as needed for pain for up to 3 days.polyethylene glycol 3350 49735 mg powder for oral solution (8 sources)Osmotic LaxativeStart: 77-38-6699znpj 17 g by mouth once daily polyethylene glycol, PEG, 3350 (Miralax) 17 g packet Take 17 g by mouth Daily 04/09/2024 Activesulfamethoxazole 800 mg / trimethoprim 160 mg oral tablet (2 sources)Dihydrofolate Reductase Inhibitor Antibacterial, Sulfonamide AntimicrobialStart: 09-01-2022 End: 51-45-5132sfoqggigozzvrfoe-trimethoprim (BACTRIM DS) 800-160 mg per tablet Take 1 tablet by mouth twice dailyfor 3 days. Start 09/04 (3 days prior to surgery). 6 tablet 0 09/01/2022 09/04/2022 ActiveStart: 06-14-2022 End: 08-24-9688Bvttesu D.S. 800 mg-160 mg Tab 1 tab(s), Oral, BID for 7 day(s), 14 tab(s), Refill(s) 0, [id number], 160, cm, 06/11/22 9:42:00 EST, Height/Length Dosing, 65.6, kg, 06/11/22 9:42:00 EST, Weight Dosing Start Date: 06/14/22 Stop Date: 06/21/22 Status: OrderedComment on above:Take 1 tablet by mouth twice daily for 3 days. Start 09/04 (3 days prior to surgery). Completed/Discontinued Medications MedicationDrug Class(es)DatesSig (Normalized)Sig (Original)bifidobacterium animalis [id number] unt / lactobacillus acidophilus [id number] unt oral capsule (3 sources) End: 22-73-9755wdfm 2 capsules by mouth once dailyProbiotic Product (Probiotic Daily) capsule Take 2 capsules by mouth Daily 01/25/2024 Discontinued (Therapy completed)cephalexin 500 mg oral capsule (7 sources)Cephalosporin AntibacterialStart: 09-16-2022 End: 85-41-4498fmto 1 capsule by mouth three times dailycephALEXin (KEFLEX) 500 mg capsule Take 1 capsule by mouth three times daily. 10 capsule 0 09/16/2022 ActiveStart: 09-07-2022 End: 65-09-9346irzt 1 capsule by mouth three times dailycephALEXin (KEFLEX) 500 mg capsule Take 1 capsule by mouth three times daily for 3 days. 9 capsule 0 09/07/2022 09/10/2022 ActiveComment on above:Take 1 capsule by mouth three times daily for 3 days.Take 1 capsule by mouth three times daily.ciprofloxacin 250 mg oral tablet (4 sources)Quinolone AntimicrobialStart: 04-09-2024 End: 11-52-5917dbrn 1 tablet by mouth in the morningciprofloxacin (Cipro) 250 MG tablet Take 250 mg by mouth in the morning and 250 mg before bedtime. 1 06/09/2023 04/16/2024 ExpiredStart: 35-88-1869conn 1 mg by mouth every twelve hoursCipro 500 mg Tab mg tab(s), Oral, q12hr, Refills(s) 0 Start Date: 03/31/22 Status: Ordereddocusate sodium 10 mg/ml oral suspension (13 sources)Start: 04-09-2024 End: 64-59-6710kisf 50 mg by mouth twice daily as needed for constipation docusate (Colace) 50 MG/5ML liquid Take 50 mg by mouth 2 (two) times a day as needed for constipation 04/09/2024 12/19/2024 Discontinued (Med list cleanup) Start: 97-21-0806ddiz 100 mg by mouth once dailyDocusate Sodium 50 mg/5 mL Liquid Active 100 MG PO Daily 100 April 09, 2024 12:00amStart: 09-07-2022 End: 66-43-9482veug 1 capsule by mouth twice dailydocusate sodium (COLACE) 100 mg capsule Take 1 capsule by mouth twice daily. 60 capsule 0 09/07/2022 10/07/2022 ActiveComment on above:Take 1 capsule by mouth twice daily.DULoxetine 60 mg delayed release oral capsule (20 sources)Serotonin and Norepinephrine Reuptake InhibitorStart: 07-15-2020 DULoxetine (CYMBALTA) 60 mg capsuleferrous sulfate 325 mg delayed release oral tablet (3 sources)Start: 04-06-2024 End: 57-47-2508Pfkwqxr Sulfate 325 mg (65 mg iron) tablet,delayed release (DR/EC) Discontinued 325 MG PO Every 48 hours April 06, 2024 12:00am April 06, 2024 7:30pmfolic acid 0.4 mg / vitamin b12 0.5 mg oral tablet (7 sources)Vitamin N71Fjpcn: 09-02-2023 End: 38-39-8039zrmh 1 tablet by mouth once dailyVitamin C86-Ymihi Acid 500-400 mcg tablet Discontinued 1 TAB PO Daily September 01, 2023 11:00pm October 21, 2023 12:18pm administer with a mealIron Bisglycinate Chelate 29 mg iron capsule (8 sources)Start: 10-21-2023 End: 15-74-4271Ekre Bisglycinate Chelate 29 mg iron capsule Discontinued 30 MG PO Daily October 21, 2023 12:07pm April 06, 2024 2:38pmStart: 13-72-5566Jrkh Bisglycinate Chelate 29 mg iron capsule Active 30 MG PO Daily October 21, 2023 12:07pmStart: 09-02-2023 End: 20-34-6921bled 1 mg by mouth once dailyIron Bisglycinate Chelate 29 mg iron capsule Discontinued MG PO Daily September 01, 2023 11:00pm October 21, 2023 12:09pmIRON CHELATE (3 sources) End: 95-80-2607sqtc 2 capsules by mouth once dailyIRON CHELATE Take 2 capsules by mouth 1 (one) time each day 01/25/2024 Discontinued (Therapy completed)take 2 capsules by mouth once dailyIRON CHELATE Take 2 capsules by mouth 1 (one) time each day Jes[place]72 ml iron sucrose 20 mg/ml injection (10 sources)Parenteral Iron ReplacementStart: 10-21-2023 End: 57-90-1321Fefe Sucrose (Venofer) 200 mg iron/10 mL solution Discontinued 200 MG IV Q3D October 21, 2023 12:27pmApril 06, 2024 2:39pm administer over 30 minsLactobacillus Combination No.9 (Adult 50 Plus Probiotic) 4 billion cell capsule (5 sources)Start: 10-21-2023 End: 66-82-3370Wvrqcjdjtyeqt Combination No.9 (Adult 50 Plus Probiotic) 4 billion cell capsule Discontinued 4000 MMU CELLS PO .October 20, 2023 11:00pm April 06, 2024 2:38pm administer with a mealStart: 10-21-2023 Lactobacillus Combination No.9 (Adult 50 Plus Probiotic) 4 billion cell capsule Active 4000 MMU CELLS PO .October 20, 2023 11:00pm administer with a mealStart: 31-86-1871Smcseonjignad Combination No.9 (Adult 50 Plus Probiotic) 4 billion cell capsule Active 4000 MMU CELLS PO .October 21, 2023 12:00am administer with a meallidocaine hydrochloride 0.02 mg/mg topical gel (3 sources)Antiarrhythmic, Amide Local AnestheticStart: 10-21-2022 End: 91-44-8138flnwqpwyo urojet 2 % 10 mL topical gel (GLYDO)Start: 09-16-2022 End: 07-65-2541jeazohgvp urojet 2 % 10 mL topical gel (GLYDO)lisinopril 20 mg oral tablet (20 sources)Angiotensin Converting Enzyme InhibitorStart: 72-70-3107cygsbgxzqb (ZESTRIL, PRINIVIL) 20 mg tablet Take by mouth. 0 03/18/2020 ActiveComment on above:Take by mouth.losartan potassium 25 mg oral tablet (5 sources)Angiotensin 2 Receptor BlockerStart: 06-16-2023 End: 88-45-6409wtmp 1 tablet by mouth in the morninglosartan (Cozaar) 25 MG tablet Indications: High output congestive heart failure (CMS/HCC) Take 1 tablet (25 mg) by mouth in the morning. 30 tablet 06/16/2023 01/25/2024 Discontinued (Therapy completed)magnesium oxide 400 mg oral tablet (5 sources)Start: 10-21-2023 End: 95-58-0289nxbc 1 tablet by mouth once dailyMagnesium Oxide 400 mg magnesium tablet Discontinued 400 MG PO Daily October 20, 2023 11:00pm April 06, 2024 2:38pmoxybutynin chloride 5 mg oral tablet (11 sources)Cholinergic Muscarinic AntagonistStart: 10-12-2022 End: 64-02-0438onhu 1 tablet by mouth every eight hours as neededoxybutynin (DITROPAN) 5 mg tablet Take 1 tablet by mouth three times daily as needed for bladder spasm 42 tablet 0 10/12/2022 ActiveStart: 16-19-4383wkpg 1 tablet by mouth every eight hours as neededoxybutynin (DITROPAN) 5 mg tablet Take 1 tablet by mouth three times daily as needed for bladder spasm 42 tablet 0 09/07/2022 ActiveStart: 99-89-0962jzjy 1 mg by mouth once dailyoxybutynin 5 mg ER Tab mg tab(s), Oral, Daily, Refills(s) 0 Start Date: 03/31/22 Status: OrderedComment on above:Take 1 tablet by mouth three times daily as needed for bladder spasm rOPINIRole 0.5 mg oral tablet (20 sources)Nonergot Dopamine AgonistStart: 10-21-2023 End: 38-53-1485ipia 2 tablets by mouth once daily at bedtimeRopinirole 0.5 mg tablet Discontinued 1 MG PO Daily at bedtime October 20, 2023 11:00pm April 06, 2024 2:39pm administer 1-3 hours before bedtimeStart: 97-22-3134metq 1 mg by mouth once daily at bedtimeRopinirole Active 1 MG PO Daily at bedtime October 21, 2023 12:00am administer 1-3 hours before bedtimeStart: 09-08-2023 End: 44-47-0853mRFEWSGzco (Requip) 0.5 MG tablet Indications: Restless Leg Syndrome One tablet at bedtime for 2 weeks, then increase to 2 tablets at bedtime. 45 tablet 09/08/2023 01/25/2024 Discontinued (Therapy completed)Start: 47-28-1149xtdg 2 tablets by mouth three times dailyropinirole 0.5 mg Tab 1 mg = 2 tab(s), Oral, TID, for restless leg syndrome, Refills(s) 0 Start Date: 03/31/22 Status: OrderedStart: 49-29-0815yuaa 1 tablet by mouth once daily at bedtime rOPINIRole HCl 0.5 MG 1 tablet 1 to 3 hours before bedtime Orally Once a day for 30 day(s) Jan, ActiveStart: 06-53-7527gLHKPJNclq (REQUIP) 1 mg tablet 0.25 mg, 0.5 mg dose 1.5 ml semaglutide 1.34 mg/ml pen injector (20 sources)Start: 94-37-9782WWSXZSR 0.25 mg or 0.5 mg(2 mg/1.5 mL) penStart: 71-71-5638hfzirc 0.5 mg by subcutaneous injection every weekOzempic 0.5 mg, SubCutaneous, qWeek, Refill(s) 0, Wednesday, Blood glucose Start Date: 03/31/22 Status: OrderedStart: 18-72-4342Axhtnna SubCutaneous, qWeek, Refill(s) 0 Start Date: 03/31/22 Status: OrderedStart: 00-49-4418Ceqyhuh (0.25 or 0.5 MG/DOSE) 2 MG/1.5ML Inject 0.5 weekly Subcutaneous once a week for 90 day(s) Jan, ActiveOzempic (0.25 or 0.5 MG/DOSE) 2 MG/1.5ML Subcutaneous Solution Pen- injector iuse as directed Quantity: 0 Refills: 0 Ordered: 05-May-2022 DO Active tamsulosin hydrochloride 0.4 mg oral capsule (10 sources)alpha-Adrenergic BlockerStart: 10-12-2022 End: 92-16-8447veufaetgzu (FLOMAX) 0.4 mg Take 1 capsule by mouth once daily 30 minutes after the same meal each day. 30 capsule 0 10/12/2022 ActiveStart: 09-07-2022 End: 77-84-5172lllqefqtof (FLOMAX) 0.4 mg Take 1 capsule by mouth once daily 30 minutes after the same meal each day. 30 capsule 0 09/07/2022 10/07/2022 Active Comment on above:Take 1 capsule by mouth once daily 30 minutes after the same meal each day.vitamin b12 1 mg oral tablet (3 sources)Vitamin B12 End: 79-70-7043edxx 1 tablet by mouth once dailycyanocobalamin (Vitamin B-12) 1000 MCG tablet Take 1,000 mcg by mouth Daily 01/25/2024 Discontinued(Therapy completed) Problems Active Problems Problem ClassificationProblemDateDocumented DateEpisodic/ChronicAbdominal pain (7 sources)Unspecified abdominal pain; Translations: [Left flank pain]Onset: 78-76-7923CcdgnmmjKrbha and unspecified renal failure (1 source)Acute kidney failure, unspecified; Translations: [ACUTE KIDNEY FAILURE UNSPECIFIED]Onset: 66-63-3222OijxcxpiHdavjrf disorders (6 sources)Generalized anxiety disorder; Translations: [Generalized anxiety disorder]Onset: 02-02-2022 Resolved: 01-52-0437JpmuyqxFvwlheet of urinary tract (20 sources)Ureteric stone; Translations: [Calculus of ureter]Onset: 03-31-2022 EpisodicChronic kidney disease (20 sources)Chronic kidney disease stage 3A ; Translations: [Stage 3a chronic kidney disease]Onset: 03-25-2022 Resolved: 039567-07-9386HzmewwjFoxqham kidney disease (7 sources)Chronic kidney disease; Translations: [CHRONIC KIDNEY DISEASE STAGE 3A]Onset: 33-77-5168Lfasiggpbp heart failure; nonhypertensive (16 sources)High output heart failure; Translations: [High output heart failure] Onset: 901287-43-1206OorpblwBhydyteaxs and other anemia (2 sources)Anemia of renal disease; Translations: [Anemia in chronic kidney disease]ChronicDeficiency and other anemia (1 source)Anemia in chronic kidney disease; Translations: [Anemia in chronic kidney disease]Onset: 39-91-8384ItvmivxUqoatmfzdt and other anemia (6 sources)Nlfzai82-62-3221HdftprukPdzzeiwlrd and other anemia (1 source)Anemia, unspecified; Translations: [ANEMIA UNSPECIFIED]Onset: 23-43-3696DtlsiixuQgbrrqbahr and other anemia (2 sources)Iron deficiency anemia secondary to inadequate dietary iron intake; Translations: [Other iron deficiency anemias]11-41-0298IlicnixbSdkyqaho mellitus with complications (3 sources)Type 2 diabetes mellitus with diabetic chronic kidney disease; Translations: [Disorder of kidney due to diabetes mellitus]Onset: 03-25-2022 ChronicEssential hypertension (20 sources)Essential hypertension; Translations: [Essential (primary) hypertension]Onset: 02-02-2022 Resolved: 28-90-2121VuolkugXxfjoltckjwfa symptoms and ill-defined conditions (20 sources)Abnormal urinalysis; Translations: [Unspecified abnormal findings in urine]Onset: 03-95-4908DzoersrlVnxqizryinrc with complications and secondary hypertension (18 sources)Hypertensive chronic kidney disease with stage 1 through stage 4 chronic kidney disease, or unspecified chronic kidney disease; Translations: [Chronic kidney disease due to hypertension]Onset: 101258-09-9608Vzjrdgs Induced (2 sources)Induced termination of complicated by urinary tract infection; Translations: [Urinary tract infection following (induced) termination of ]Onset: 74-32-5936LdadlrbgCfoazxf and fatigue (2 sources)Fatigue; Translations: [Chronic fatigue, unspecified]01-25-2024 ChronicMenopausal disorders (13 sources)Disorder associated with menstruation AND/OR menopause; Translations: [Unspecified menopausal and perimenopausal disorder]Onset: 194244-58-7486CneyulvUzrp disorders (20 sources)Recurrent major depressive episodes, mild ; Translations: [Major depressive disorder, recurrent, mild]Onset: 02-02-2022 Resolved: 99-44-6733GovyvspEyxsydamf; nephrosis; renal sclerosis (2 sources)Atrophy of left kidney; Translations: [Atrophy of kidney (terminal)] Onset: 56-29-5166OsglgqzGxarvfwfqhzfjz (6 sources)Eztmeeoap66-47-9604OskixoyNwvah aftercare (1 source)Other retirement (current) drug therapy; Translations: [OTH PADDED BOX SEWER CURRENT DRUG THERAPY]Onset: 33-53-5103DphkdluuXkpeu diseases of kidney and ureters (9 sources)Secondary hyperparathyroidism; Translations: [Secondary hyperparathyroidism of renal origin]09-30-0642JizcsgdHmfgt diseases of kidney and ureters (8 sources)Secondary hyperparathyroidism of renal origin; Translations: [Secondary hyperparathyroidism (of renal origin)]Onset: 975530-47-6871 ChronicOther diseases of kidney and ureters (13 sources)Hyperparathyroidism due to renal insufficiency; Translations: [Secondary hyperparathyroidism of renal origin]Onset: ChronicOther diseases of kidney and ureters (2 sources)Hydronephrosis; Translations: [Hydronephrosis with renal and ureteral calculous obstruction]EpisodicOther endocrine disorders (1 source)Hormone increase; Translations: [Endocrine disorder, unspecified] EpisodicOther gastrointestinal disorders (2 sources)Malabsorption - iron; Translations: [Intestinal malabsorption, unspecified]97-81-7747WryaspaSvfbk gastrointestinal disorders (1 source)Bariatric surgery status; Translations: [BARIATRIC SURGERY STATUS] Onset: 29-65-7923EiexeauwBknyd gastrointestinal disorders (2 sources)Abdominal bloating; Translations: [Abdominal distension (gaseous)] 02-59-0478VigxfqoeRrqun hereditary and degenerative nervous system conditions (9 sources)Restless legs; Translations: [Restless legs syndrome]04-17-2022 ChronicOther hereditary and degenerative nervous system conditions (2 sources)Restless legs syndromeOnset: 02-02-2022 Resolved: 46-74-9503PxvhrgtUgmkv nervous system disorders (14 sources)Bilateral meralgia paresthetica; Translations: [Meralgia paresthetica, bilateral lower limbs]Onset: 562597-80-3442HnvzdytJxfrv nutritional; endocrine; and metabolic disorders (1 source)Aciduria; Translations: [Disorder of amino-acid metabolism, unspecified]ChronicOther nutritional; endocrine; and metabolic disorders (1 source)Disorder of amino-acid metabolism, unspecified; Translations: [Aciduria (HCC)]Onset: 14-87-7381KtjrbyuJpgkx nutritional; endocrine; and metabolic disorders (1 source)Overweight in adulthood with body mass index of 25 or more but less than 30; Translations: [Overweight]EpisodicOther nutritional; endocrine; and metabolic disorders (2 sources)Abnormal weight gain; Translations: [Abnormal weight gain]06-21-2023 EpisodicOther screening for suspected conditions (not mental disorders or infectious disease) (14 sources)Patient encounter status; Translations: [Encounter for screening for other disorder]EpisodicOther skin disorders (3 sources)Localized swelling, mass and lump, right upper limb; Translations: [LOC SWELL MASS LUMP RT UPPER LIMB]Onset: 80-75-0728ErlkjtaiIbfmb upper respiratory disease (14 sources)Allergic rhinitis due to pollen; Translations: [Allergic rhinitis due to pollen]Onset: [id number]; thrombophlebitis and thromboembolism (1 source)Phlebitis and thrombophlebitis of superficial vessels of right lower extremity; Translations: [PHLEBITIS AND TP SUP VES RT LOW EXT]Onset: 02-04-2022 EpisodicResidual codes; unclassified (4 sources)Insomnia; Translations: [Insomnia, unspecified]EpisodicResidual codes; unclassified (2 sources)Bilateral lower limb edema; Translations: [Localized edema]06-21-2023 EpisodicSpondylosis; intervertebral disc disorders; other back problems (14 sources)Prolapsed lumbar intervertebral disc; Translations: [Other intervertebral disc displacement, lumbarregion]Onset: ChronicUnclassified (1 source)CONTACT W/AND (SUSP) EXPOS COVID-19; Translations: [CONTACT W/AND (SUSP) EXPOS COVID-19]Onset: 67-23-8939Zkgrxzn tract infections (16 sources)Urinary tract infectious disease; Translations: [Urinary tract infection, site not specified]Onset: 107296-30-7346CikofvieGuyjqrru veins of lower extremity (4 sources)Varicose veins of bilateral lower extremities with pain; Translations: [VARICOSE VNS CHRIS LOW EXTREMW/PAIN]Onset: 21-20-2788Hkskximn Past or Other Problems Problem ClassificationProblemDateDocumented DateEpisodic/Chronic Administrative/social admission (2 sources)Advance directive discussed with patient; Translations: [Other specified counseling]14-20-2270UxwubplkItpnyvubwc and other anemia (15 sources)Iron deficiency anemia; Translations: [Other iron deficiency anemias]Onset: 936964-59-1896UpdebxhxYzonxdrc mellitus without complication (20 sources)Type 2 diabetes mellitus without complication; Translations: [Type 2 diabetes mellitus without complications]Onset: 06-03-2023 Resolved: 74-67-2632MschfocOmeth and electrolyte disorders (6 sources)Sodium disorder; Translations: [Hyperosmolality and hypernatremia] Onset: 90-23-7554TrqtuhaoRfziq diseases of kidney and ureters (3 sources)Hydronephrosis with renal and ureteral calculous obstruction; Translations: [HYDRONPHROS RENL AND URETRL CALCUL OBST]Onset: 09-22-8665Rgbxcoar Other endocrine disorders (1 source)Endocrine disorder, unspecified; Translations: [Elevated parathyroid hormone]Onset: 65-76-9002XgzryctpXsjgx gastrointestinal disorders (14 sources)Slow transit constipation; Translations: [Slow transit constipation] Onset: 240930-08-5711PslaacmxTblxy nutritional; endocrine; and metabolic disorders (14 sources)Morbid obesity; Translations: [Morbid (severe) obesity due to excess calories]Onset: 06-03-2023 Resolved: 188699-52-8727CvpbozgYwexm nutritional; endocrine; and metabolic disorders (2 sources)Weight gain; Translations: [Abnormal weight gain]57-26-1673Fejseben Residual codes; unclassified (14 sources)History of total hysterectomy with bilateral salpingo-oophorectomy; Translations: [Acquired absenceof both cervix and uterus]Onset: 06-03-2023 68-43-4879YumijgooWggwmsgr codes; unclassified (14 sources)Body mass index 20-24 - normal; Translations: [Body mass index (BMI) 23.0-23.9, adult]Onset: 168679-87-4957YmkyafrvEszdlsoudgns (1 source)Never smoked tobacco; Translations: [Never a smoker] Results Test NameValueInterpretationReference RangeFacilityCBC (INCLUDES DIFF/PLT)on 71-49-1668Kqcztqdgh (Bld) [#/Vol]0.05 10*3/uLNormal0-200Quest DiagnosticsComment on above:Performed By: #### 6399, 7549 #### [facility] [place] [address] Data Processing Auditor: Gigi Paul MDBasophils/100 WBC (Bld)1.0 %NormalQuest DiagnosticsComment on above:Performed By: #### 6399, 7573 #### [facility] [place] [address] Data Processing Auditor: Gigi Paul MDEosinophils (Bld) [#/Vol]0.19 10*3/uLNormal 15-500Quest DiagnosticsComment on above:Performed By: #### 6399, 7573 #### [facility] [place] [address] Data Processing Auditor: Gigi Paul MDEosinophils/100 WBC (Bld)3.8 %NormalQuest DiagnosticsComment on above:Performed By: #### 6399, 7573 #### [facility] [place] [address] [place] [address] Data Processing Auditor: Gigi Paul MDErythrocyte distribution width (RBC) [Ratio] 13.8 %Fanbmq73.0-15.0Quest DiagnosticsComment on above:Performed By: #### 6399, 7573 #### [facility] of [address], [address] [place] [address] Data Processing Auditor: Gigi Paul MDHematocrit (Bld) [Volume fraction]48.1 %High 35.0-45.0Quest DiagnosticsComment on above:Performed By: #### 6399, 7573 #### [facility] of [address], [address] [place] [address] Data Processing Auditor: Gigi Paul MDHemoglobin (Bld) [Mass/Vol]15.7 g/dLHigh 11.7-15.5Quest DiagnosticsComment on above:Performed By: #### 6399, 7573 #### [facility] of [address], [address] [place] [address] Data Processing Auditor: Gigi Paul MDLymphocytes (Bld) [#/Vol]1.285 10*3/uLNormal 850-3900Quest DiagnosticsComment on above:Performed By: #### 6399, 7573 #### [facility] of [address], [address] [place] [address] Data Processing Auditor: Gigi Paul MDLymphocytes/100 WBC (Bld)25.7 %NormalQuest DiagnosticsComment on above:Performed By: #### 6399, 7573 #### [facility] of [address], [address] [place] [address] Data Processing Auditor: Gigi Paul MDMCH (RBC) [Entitic mass]29.4 miItmjkr10.0-33.0 Quest DiagnosticsComment on above:Performed By: #### 6399, 7573 #### [facility] of [address], [address] [place] [address] Data Processing Auditor: Gigi TIMCHC (RBC) [Mass/Vol]32.6 g/fJOgzzlz48.0-36.0 Quest DiagnosticsComment on above:Result Comment: For adults, a slight decrease in the calculated MCHC value (in the range of 30 to 32 g/dL) is most likely not clinically significant; however, it should be interpreted with caution in correlation with other red cell parameters and the patient's clinical condition.Performed By: #### 6399, 7573 #### [facility] of [place] [address] Data Processing Auditor: Gigi Paul MDMCV (RBC) [Entitic vol]90.1 pVDniart36.0-100.0 Quest DiagnosticsComment on above:Performed By: #### 6399, 7573 #### [facility] [place] [address] Data Processing Auditor: Gigi Paul MDMonocytes (Bld) [#/Vol]0.31 10*3/uLNormal 200-950Quest DiagnosticsComment on above:Performed By: #### 63Maira, 7573 #### [facility] of [place] [address] Data Processing Auditor: Gigi Paul MDMonocytes/100 WBC (Bld)6.2 %NormalQuest DiagnosticsComment on above:Performed By: #### 6399, 7573 #### [facility] of [place] [address] Data Processing Auditor: Gigi Paul MDNeutrophils (Bld) [#/Vol]3.165 10*3/uLNormal 1500-7800Quest DiagnosticsComment on above:Performed By: #### 6399, 7573 #### [facility] of [place] [address] Data Processing Auditor: Gigi Paul MDNeutrophils/100 WBC (Bld)63.3 %NormalQuest DiagnosticsComment on above:Performed By: #### 6399, 7573 #### [facility] of [address], [address] [place] [address] Data Processing Auditor: Gigi Singleton mean volume (Bld) [Entitic vol]9.8 fL Normal7.5-12.5Quest DiagnosticsComment on above:Performed By: #### 6399, 7573 #### [facility] of [address], [address] [place] [address] Data Processing Auditor: Gigi TORRESlatetaty (Bld) [#/Vol]238 10*3/uLNormal 140-400Quest DiagnosticsComment on above:Performed By: #### 63Maira, 7573 #### [facility] of [address], [address] [place] [address] Data Processing Auditor: Gigi Paul MDRBC (Bld) [#/Vol]5.34 10*6/uLHigh3.80-5.10 Quest DiagnosticsComment on above:Performed By: #### 6399, 7573 #### [facility] of [address], [address] [place] [address] Data Processing Auditor: Gigi MARTÍNEZ (Bld) [#/Vol]5.0 10*3/uLNormal3.8-10.8 Quest DiagnosticsComment on above:Performed By: #### 6399, 7573 #### [facility] of [address], [address] [place] [address] Data Processing Auditor: Gigi DUARTE AND TOTAL IRON BINDING CAPACITYon 04-04-2025% ZSXWVGNIYA92 % (calc)Xwnmyh57-63Isrsq DiagnosticsComment on above: Performed By: #### 6399, 7573 #### [facility] of [address], [address] [place] [address] Data Processing Auditor: Gigi DUARTE BINDING LONRRDEM056 mcg/dL (calc)Normal 250-450Quest DiagnosticsComment on above:Performed By: #### 6399, 7573 #### [facility] of [address], [address] Data Processing Auditor: Gigi Paul MDIRON, TOTAL62 mcg/uOWjtomb37-551Emlpv DiagnosticsComment on above:Performed By: #### 6399, 7573 #### [facility] [address] [place] [address], [address] Data Processing Auditor: Gigi Paul MDVITAMIN B12on 12-77-4825Platwzllu (Vitamin B12) [Mass/Vol]478 pg/pBUjlqap407-3314Yllpz DiagnosticsComment on above: Performed By: #### 6399, 7573 #### [facility] [address], [address] [place] [address] Data Processing Auditor: Gigi MANRIQUE MAMMOGRAM SCREENING TOMOSYNTHESIS BILATERAL on [id number] MAMMOGRAM SCREENING TOMOSYNTHESIS BILATERALThis is a summary report. The complete report is available in the patient's medical record. If you cannot access the medical record, please contact the sending organization for a detailed fax or copy. Examination: BI MAMMOGRAM SCREENING TOMOSYNTHESIS BILATERAL Clinical History: screen breast ca Technique: Screening digital mammography study of both breasts was performed with 2-D and 3-D tomosynthesis imaging. Study was compared to the prior exam dated 02/17/2024. Findings: There is no evidence of interval dominant spiculated mass, grouped microcalcifications, or skin thickening which would be suggestive of malignancy. Partially visualized axillary lymph nodes are noted on the left which appear grossly unremarkable. IMPRESSION: Impression: No specific evidence of malignancy seen in either breast. BIRADS 2 - Benign Findings DENSITY: There are scattered areas of fibroglandular density. FOLLOW-UP: Routine Screening Mammogram Board Certified Radiologists. Accredited by the ACR and FDA. MAMMOGRAPHY IS VERY IMPORTANT TO YOUR HEALTH. THE [employer] SOCIETY GUIDELINES RECOMMEND THATWOMEN 40 YEARS OF AGE AND OLDER SHOULD HAVE A MAMMOGRAM EVERY YEAR. A REMINDER LETTER WILL BE SENT AT THE APPROPRIATE TIME. ELECTRONICALLY SIGNED BY: Redd Platt M.D.NormalNot AvailableCBC (INCLUDES DIFF/PLT)on 50-34-9989Ofcbsxoeh (Bld) [#/Vol]0.031 10*3/uLNormal0-200Quest DiagnosticsComment on above:Performed By: #### 7573, 6399 #### [facility] of [address], [address] [place] [address] Data Processing Auditor: Gigi Paul MDBasophils/100 WBC (Bld)0.4 %NormalQuest DiagnosticsComment on above:Performed By: #### 7573, 6399 #### [facility] of [address], [address] [place] [address] Data Processing Auditor: Gigi Paul MDEosinophils (Bld) [#/Vol]0.023 10*3/uLNormal 15-500Quest DiagnosticsComment on above:Performed By: #### 7573, 6399 #### [facility] of [place] [address] Data Processing Auditor: Gigi Paul MDEosinophils/100 WBC (Bld)0.3 %NormalQuest DiagnosticsComment on above:Performed By: #### 7573, 6399 #### [facility] of [place] [address] Data Processing Auditor: Gigi Paul MDErythrocyte distribution width (RBC) [Ratio] 14.9 %Rigqmr61.0-15.0Quest DiagnosticsComment on above:Performed By: #### 7573, 6399 #### [facility] of [place] [address] Data Processing Auditor: Gigi Paul MDHematocrit (Bld) [Volume fraction]35.2 %Normal 35.0-45.0Quest DiagnosticsComment on above:Performed By: #### 7573, 6399 #### [facility] of [place] [address] Data Processing Auditor: Gigi Paul MDHemoglobin (Bld) [Mass/Vol]10.4 g/dLLow 11.7-15.5Quest DiagnosticsComment on above:Performed By: #### 7573, 6399 #### [facility] of [address], [address] [place] [address] Data Processing Auditor: Gigi Paul MDLymphocytes (Bld) [#/Vol]0.741 10*3/uLLow 850-3900Quest DiagnosticsComment on above:Performed By: #### 7573, 6399 #### [facility] of [address], [address] [place] [address] Data Processing Auditor: Gigi Paul MDLymphocytes/100 WBC (Bld)9.5 %NormalQuest DiagnosticsComment on above:Performed By: #### 7573, 6399 #### [facility] of [address], [address] [place] [address] Data Processing Auditor: Gigi Paul MDMCH (RBC) [Entitic mass]23.2 pgLow27.0-33.0 Quest DiagnosticsComment on above:Performed By: #### 7573, 6399 #### [facility] of [address], [address] [place] [address] Data Processing Auditor: Gigi TIMCHC (RBC) [Mass/Vol]29.5 g/dLLow32.0-36.0 Quest DiagnosticsComment on above:Result Comment: For adults, a slight decrease in the calculated MCHC value (in the range of 30 to 32 g/dL) is most likely not clinically significant; however, it should be interpreted with caution in correlation with other red cell parameters and the patient's clinical condition.Performed By: #### 7573, 6399 #### [facility] of [address], [address] [place] [address] Data Processing Auditor: Gigi Paul MDMCV (RBC) [Entitic vol]78.6 fLLow80.0-100.0 Quest DiagnosticsComment on above:Performed By: #### 7573, 6399 #### [facility] of [address], [address] [place] [address] Data Processing Auditor: Gigi Paul MDMonocytes (Bld) [#/Vol]0.928 10*3/uLNormal 200-950Quest DiagnosticsComment on above:Performed By: #### 7573, 6399 #### [facility] of [address], [address] [place] [address] Data Processing Auditor: Gigi Paul MDMonocytes/100 WBC (Bld)11.9 %NormalQuest DiagnosticsComment on above:Performed By: #### 7573, 6399 #### [facility] of [address], [address] [place] [address] Data Processing Auditor: Gigi Paul MDNeutrophils (Bld) [#/Vol]6.076 10*3/uLNormal 1500-7800Quest DiagnosticsComment on above:Performed By: #### 7573, 6399 #### [facility] of [address], [address] [place] [address] Data Processing Auditor: Gigi Paul MDNeutrophils/100 WBC (Bld)77.9 %NormalQuest DiagnosticsComment on above:Performed By: #### 7573, 6399 #### [facility] of [place] [address] Data Processing Auditor: Gigi Paul MDPlatelet mean volume (Bld) [Entitic vol]9.4 fL Normal7.5-12.5Quest DiagnosticsComment on above:Performed By: #### 7573, 6399 #### [facility] of [address], [address] [place] [address] Data Processing Auditor: Gigi Paul MDPlatelets (Bld) [#/Vol]225 10*3/uLNormal 140-400Quest DiagnosticsComment on above:Performed By: #### 7573, 6399 #### [facility] of [address], [address] [place] [address] Data Processing Auditor: Gigi Paul MDRBC (Bld) [#/Vol]4.48 10*6/uLNormal3.80-5.10 [facility]osticsComment on above:Performed By: #### 7573, 6399 #### [facility] [address], [address] [place] [address] Data Processing Auditor: Gigi Paul [facility] (Bld) [#/Vol]7.8 10*3/uLNormal3.8-10.8 [facility]osticsComment on above:Performed By: #### 7573, 6399 #### [facility] [address], [address] [place] [address] Data Processing Auditor: Gigi Paul [facility] W Auto Differential panel (Bld)on 62-91-1034Svqq form neutrophils (Bld) [#/Vol]CANCELEDNOWV HealthcareComment on above:Result canceled by the ancillary.Band form neutrophils/100 WBC (Bld) CANCELED%NOMS HealthcareComment on above:Result canceled by the ancillary. Basophils (Bld) [#/Vol]31 10*3/uLNOMS HealthcareBasophils/100 WBC (Bld)0.4 %[facility] HealthcareBlasts (Bld) [#/Vol]CANCELED0 cells/uLNOMS HealthcareComment on above:Result canceled by the ancillary.Blasts/100 WBC (Bld)CANCELED%[facility]OM[facility] HealthcareComment on above:Result canceled by the ancillary.Eosinophils (Bld) [#/Vol]23 10*3/uLNOMS HealthcareEosinophils/100 WBC (Bld)0.3 %[facility] Healthcare Erythrocyte distribution width (RBC) [Ratio]14.9 %11.0 - 15.0 %[facility] Hematocrit (Bld) [Volume fraction]35.2 %35.0 - 45.0 %[facility] CenterHemoglobin (Bld) [Mass/Vol]10.4 g/dLLow11.7 - 15.5 g/dLUniversity Health Lakewood Medical CenterLymphocytes (Bld) [#/Vol]741 10*3/uLLowNOMS HealthcareLymphocytes/100 WBC (Bld)9.5 %[facility] CenterH (RBC) [Entitic mass]23.2 pgLow27.0 - 33.0 pgNOMS HealthcareMCHC (RBC) [Mass/Vol]29.5 g/dLLow32.0 - 36.0 g/dLNOMS HealthcareComment on above:For adults, a slight decrease in the calculated MCHC value (in the range of 30 to 32 g/dL) is most likely not clinically significant; however, it should be interpreted with caution in correlation with other red cell parameters and the patient's clinical condition. MCV (RBC) [Entitic vol]78.6 fLLow80.0 - 100.0 fLNOWV HealthcareMetamyelocytes (Bld) [#/Vol]CANCELED0 cells/uLNOMS HealthcareComment on above:Result canceled by the ancillary.Metamyelocytes/100 WBC (Bld)CANCELED%[facility]OMS HealthcareComment on above:Result canceled by the ancillary.Monocytes (Bld) [#/Vol]928 10*3/uLNOMS HealthcareMonocytes/100 WBC (Bld)11.9 %[facility] HealthcareMyelocytes (Bld) [#/Vol] CANCELED0 cells/uLNOMS HealthcareComment on above:Result canceled by the ancillary.Myelocytes/100 WBC (Bld)CANCELED%NOMS HealthcareComment on above: Result canceled by the ancillary.Neutrophils (Bld) [#/Vol]6076 10*3/uLNOMS HealthcareNeutrophils/100 WBC (Bld)77.9 %[facility] HealthcareNucleated RBC (Bld) [#/Vol]CANCELED0 cells/uLNOMS HealthcareComment on above:Result canceled by the ancillary.Nucleated RBC/100 WBC (Bld) [Ratio]CANCELED0 /100 WBCNOMS Healthcare Comment on above:Result canceled by the ancillary.Platelet mean volume (Bld) [Entitic vol]9.4 fL7.5 - 12.5 fLNOMS HealthcarePlatelets (Bld) [#/Vol]225 10*3/uLNOMS HealthcarePromyelocytes (Bld) [#/Vol]CANCELED0 cells/uLNOMS HealthcareComment on above:Result canceled by the ancillary.Promyelocytes/100 WBC (Bld)CANCELED%[facility]OMS HealthcareComment on above:Result canceled by the ancillary.RBC (Bld) [#/Vol]4.48 10*6/uLNOMS HealthcareService comment (Unsp spec) [Interp]CANCELEDNOMS HealthcareComment on above:Result canceled by the ancillary.Variant lymphocytes/100 WBC (Bld)CANCELED0 - 10 %[facility] Comment on above:Result canceled by the ancillary.WBC (Bld) [#/Vol]7.8 10*3/uL N[facility] HealthcareIRON AND TOTAL IRON BINDING CAPACITYon 12-20-2024% SATURATION1 % (calc)Umi76-70Kjbmi DiagnosticsComment on above:Performed By: #### 7573, 6399 #### [facility] [place] [address] Data Processing Auditor: Gigi DUARTE BINDING ZSMKQUEH724 mcg/dL (calc)Normal 250-450Quest DiagnosticsComment on above:Performed By: #### 7573, 6399 #### [facility] [place] [address] Data Processing Auditor: Gigi DUARTE, TOTAL<83Ptn75-659Czwah [facility] Comment on above:Result Comment: Verified by repeat analysis.Performed By: #### 7573, 6399 #### [facility] [place] [address] Data Processing Auditor: Gigi Duarte and Iron binding capacity panelon 61-43-8860Sdca [Mass/Vol]ug/dLLowNOWV HealthcareComment on above:Verified by repeat analysis. Iron binding capacity [Mass/Vol]409NOMS HealthcareIron saturation [Mass fraction]1LCorewell Health [facility] HealthcareNo Panel Informationon 10-41-0582Fydouyecjrgzdn and review of laboratory resultsAbnormAllegheny Health NetworkPerforming Organization Information Site ID: QPT Name: [facility] Address: [address] [place] [address] Director: Gigi HENDERSONSelect Specialty [facility] HealthcareUrinalysis macro (dipstick) panel (U)on 90-24-0488Ggfurzosb, UANegativeNegative - 4(70) +++ mg/dL [facility] HealthcareBlood, UAPositiveNegative - 50 Aman/mcLNOWV HealthcareClarity, UA CloudyNOMS HealthcareColor, UAStrawNOMS HealthcareGlucose, UA2+Negative - 1999(110) ++++ mg/dLNOWV HealthcareInterpretation and review of laboratory resultsAbnormalNOMS HealthcareKetones, UAPositiveNegative - 160(16) ++++ mg/dL [facility] HealthcareLeukocytes, UA3+Negative - 500+++ Nicholas/mcLNOMS HealthcareNitrite, UANegativeNegative - PositiveNOMS HealthcarepH, UA55 - 9NOMS HealthcareProtein, UA2+Negative - 1999(20) ++++ mg/dLNOWV HealthcareSpec Grav, UA1.031 - 1.03NOWV HealthcareUrobilinogen, UA0.20.2 - 12 mg/dLEllis Fischel Cancer Center Healthcare ALBUMIN, RANDOM URINE W/CREATININEon 29-90-0462ZYJJTDC, URINE0.8 mg/dLNormalSee Note:[facility] DiagnosticsComment on above:Order Comment: SPLIT 12/04/2024 FROM [id number] Comment: Reference Range: Reference Range Not establishedPerformed By: #### 6517 #### [facility] [address], [address] [place], [place] [address] Data Processing Auditor: Gigi Paul MDALBUMIN/CREATININE RATIO, RANDOM URINE9 mg/g creatNormal<30Quest DiagnosticsComment on above:Order Comment: SPLIT 12/04/2024 FROM [id number] Comment: The ADA defines abnormalities in albumin excretion as follows: Albuminuria Category Result (mg/g creatinine) Normal to Mildly increased <30 Moderately increased 30-299 Severely increased > OR = 300 The ADA recommends that at least two of three specimens collected within a 3-6 month period be abnormal before considering a patient to be within a diagnostic category.Performed By: #### 6517 #### [facility] [address], [address] [place], [place] [address] Data Processing Auditor: Gigi Paul MDCreatinine (U) [Mass/Vol]86 mg/pFFjwigk46-243 [facility] DiagnosticsComment on above:Order Comment: SPLIT 12/04/2024 FROM [id number] Performed By: #### 6517 #### [facility] [address], [address] [place] [address] Data Processing Auditor: Gigi Paul MDCOMPREHENSIVE METABOLIC PANELon 12-05-2024 Albumin [Mass/Vol]3.6 g/dLNormal3.6-5.1Quest DiagnosticsComment on above: Performed By: #### 68777 #### [facility] [address] [place], [place] [address] Data Processing Auditor: Lorie Rocha #### 7600, 496 #### [facility] [address], [address] [place] [address] Data Processing Auditor: Gigi Paul MDAlbumin/Globulin [Mass ratio]1.4 {ratio}Normal 1.0-2.5Quest DiagnosticsComment on above:Performed By: #### 63306 #### [facility] [address] [place], [place] [address] Data Processing Auditor: Lorie Rocha #### 7600, 496 #### [facility] [address], [address] [place] [address] Data Processing Auditor: Gigi Paul MDALP [Catalytic activity/Vol]55 U/YTojbxt61-707 [facility] DiagnosticsComment on above:Performed By: #### 83141 #### [facility] [address] [place] [address] Data Processing Auditor: Lorie Rocha #### 7600, 496 #### [facility] [address], [address] [place] [address] Data Processing Auditor: Gigi Paul MDALT [Catalytic activity/Vol]8 U/LNormal6-29 [facility] DiagnosticsComment on above:Performed By: #### 21654 #### [facility] [address] [place] [address] Data Processing Auditor: Lorie Rocha #### 7600, 496 #### [facility] [address], [address] [place] [address] Data Processing Auditor: Gigi Paul MDAST [Catalytic activity/Vol]15 U/WKhjbcn04-14 [facility]osticsComment on above:Performed By: #### 29320 #### [facility] [address] Data Processing Auditor: Lorie Rocha #### 7600, 496 #### [facility] [address], [address] [place] [address] Data Processing Auditor: Gigi Paul MDBilirubin [Mass/Vol]0.4 mg/dLNormal0.2-1.2 [facility] DiagnosticsComment on above:Performed By: #### 67[address] #### [facility] [address] Data Processing Auditor: Lorie Rocha #### 7600, 496 #### [facility] [address], [address] [place] [address] Data Processing Auditor: Gigi Paul MDCalcium [Mass/Vol]9.2 mg/dLNormal8.6-10.4Quest DiagnosticsComment on above:Performed By: #### [id number] #### [facility] [address] Data Processing Auditor: Lorie Rocha #### 7600, 496 #### [facility] [address], [address] [place] [address] Data Processing Auditor: Gigi Paul MDChloride [Moles/Vol]109 mmol/XFclztk65-144 Quest DiagnosticsComment on above:Performed By: #### [id number] #### [facility] [address] Data Processing Auditor: Lorie Rocha #### 7600, 496 #### [facility] [address], [address] [place] [address] Data Processing Auditor: Gigi Paul MDCO2 [Moles/Vol]28 mmol/UCyknlf21-13Wvwxx DiagnosticsComment on above:Performed By: #### [id number] #### [facility] [facility] [address] [place] [address] Data Processing Auditor: Lorie Rocha #### 7600, 496 #### [facility] [address], [address] [place] [address] Data Processing Auditor: Gigi KOWALSKIreatinine [Mass/Vol]1.61 mg/dLHigh0.50-1.05 Quest DiagnosticsComment on above:Performed By: #### [id number] #### [facility] [facility] [address] [place] [address] Data Processing Auditor: Lorie Rocha #### 7600, 496 #### [facility] [address], [address] [place] [address] Data Processing Auditor: Gigi Paul MDGFR/1.73 sq M.predicted among non-blacks MDRD (S/P/Bld) [Vol rate/Area]36 mL/min/{1.73_m2}Low> OR = 60Quest DiagnosticsComment on above:Performed By: #### [id number] #### [facility] [facility] [address] [place] [address] Data Processing Auditor: Lorie Rocha #### 7600, 496 #### [facility] [address], [address] [place] [address] Data Processing Auditor: Gigi Paul MDGlobulin (S) [Mass/Vol]2.6 g/dLNormal1.9-3.7 Quest DiagnosticsComment on above:Performed By: #### [id number] #### [facility] [facility] [address] [place] [address] Data Processing Auditor: Lorie Rocha #### 7600, 496 #### [facility] [address], [address] [place] [address] Data Processing Auditor: Gigi Paul MDGlucose [Mass/Vol]85 mg/cKFckhqq66-22Zoemq DiagnosticsComment on above:Result Comment: Fasting reference intervalPerformed By: #### [id number] #### [facility] [facility] [address] [place] [address] Data Processing Auditor: Lorie Rocha #### 7600, 496 #### [facility] [address], [address] [place] [address] Data Processing Auditor: Gigi Paul MDPotassium [Moles/Vol]5.5 mmol/LHigh3.5-5.3 Quest DiagnosticsComment on above:Performed By: #### [id number] #### [facility] [facility] [address] [place] [phone] Data Processing Auditor: Lorie Rocha #### 7600, 496 #### [facility] [address], [address] [place] [address] Data Processing Auditor: Gigi Paul MDProtein [Mass/Vol]6.2 g/dLNormal6.1-8.1Quest DiagnosticsComment on above:Performed By: #### [id number] #### [facility] [facility] [address] [place], [place] [address] Data Processing Auditor: Lorie Rocha #### 7600, 496 #### [facility] [address], [address] [place] [address] Data Processing Auditor: Gigi Paul MDSodium [Moles/Vol]142 mmol/ZAzibwc101-366Deyfj DiagnosticsComment on above:Performed By: #### 85069 #### [facility] [facility] [address] [place] [address] Data Processing Auditor: Lorie Rocha #### 7600, 496 #### [facility] [address], [address] [place] [address] Data Processing Auditor: Gigi Paul MDUrea nitrogen [Mass/Vol]17 mg/dLNormal7-25 Quest DiagnosticsComment on above:Performed By: #### [id number] #### [facility] [address] [place] [address] Data Processing Auditor: Lorie Rocha #### 7600, 496 #### [facility] [address], [address] [place] [address] Data Processing Auditor: Gigi Paul MDUrea nitrogen/Creatinine [Mass ratio]11 mg/mg Normal6-22Quest DiagnosticsComment on above:Performed By: #### 97502 #### [facility] [facility] [address] [place] [address] Data Processing Auditor: Lorie Rocha #### 7600, 496 #### [facility] [address], [address] [place] [address] Data Processing Auditor: Gigi Paul MDHEMOGLOBIN A1con 45-41-0280AjR9i (Bld) [Mass fraction]5.6 %Normal<5.7Quest DiagnosticsComment on above:Result Comment: For the purpose of screening for the presence of diabetes: <5.7% Consistent with the absence of diabetes 5.7-6.4% Consistent with increased risk for diabetes (prediabetes) > or =6.5% Consistent with diabetes This assay result is consistent with a decreased risk of diabetes. Currently, no consensus exists regarding use of hemoglobin A1c for diagnosis of diabetes in children. According to [place] [employer] (ADA) guidelines, hemoglobin A1c <7.0% represents optimal control in non- diabetic patients. Different metrics may apply to specific patient populations. Standards of Medical Care in Diabetes(ADA).Performed By: #### [id number] #### [facility] [facility] [place] [address] Data Processing Auditor: Lorie Rocha #### 7600, 496 #### [facility] [address], [address] [place], [place] [address] Data Processing Auditor: Gigi Paul MDLIPID PANEL, STANDARDon 03-65-6781Hjkbnflqaii [Mass/Vol]175 mg/dLNormal<200Quest DiagnosticsComment on above:Order Comment: FASTING:YES PATIENT UNABLE TO VOID; ADVISED TO RETURN FOR COLLECTION. FASTING: YESPerformed By: #### 21593 #### [facility] [place] [address] Data Processing Auditor: Lorie Rocha #### 7600, 496 #### [facility] [address] [facility], [address] [place] [address] Data Processing Auditor: Gigi Paul MDCholesterol in HDL [Mass/Vol]57 mg/dLNormal> OR = 50Quest DiagnosticsComment on above:Order Comment: FASTING:YES PATIENT UNABLE TO VOID; ADVISED TO RETURN FOR COLLECTION. FASTING: YESPerformed By: #### [id number] #### [facility] [address] [place] [address] Data Processing Auditor: Lorie Rocha #### 7600, 496 #### [facility] [address], [address] [place] [address] Data Processing Auditor: Gigi Paul MDCholesterol in LDL [Mass/Vol]104 mg/dLHigh Quest DiagnosticsComment on above:Order Comment: FASTING:YES PATIENT UNABLE TO VOID; ADVISED TO RETURN FOR COLLECTION. FASTING: YESResult Comment: Reference range: <100 Desirable range <100 mg/dL for primary prevention; <70 mg/dL for patients with CHD or diabetic patients with > or = 2 CHD risk factors. LDL-C is now calculated using the Jaime-Clay calculation, which is a validated novel method providing better accuracy than the Friedewald equation in the estimation of LDL-C. Jaime OLIVARES et al. JENNIFER. 2013;310(19): 9816-8550 (http://education.[employer].23press/faq/XST995)Performed By: #### [id number] #### [facility] [address] [place] [address] Data Processing Auditor: Lorie Rocha #### 7600, 496 #### [facility] [address] [place] [address], [address] [place] [address] Data Processing Auditor: Gigi Paul MDCholesterol.total/Cholesterol in HDL [Mass ratio]3.1 {ratio}Normal<5.0Quest DiagnosticsComment on above:Order Comment: FASTING:YES PATIENT UNABLE TO VOID; ADVISED TO RETURN FOR COLLECTION. FASTING: YESPerformed By: #### [id number] #### [facility] [place] [address] Data Processing Auditor: Lorie Rocha #### 7600, 496 #### [facility] [address], [address] [place] [address] Data Processing Auditor: Gigi ZAMAN HDL ZHBXPHDCMRU284 mg/dL (calc)Normal<130 Quest DiagnosticsComment on above:Order Comment: FASTING:YES PATIENT UNABLE TO VOID; ADVISED TO RETURN FOR COLLECTION. FASTING: YESResult Comment: For patients with diabetes plus 1 major ASCVD risk factor, treating to a non-HDL-C goal of <100 mg/dL (LDL-C of <70 mg/dL) is considered a therapeutic option.Performed By: #### [id number] #### [facility] [address] [place] [address] Data Processing Auditor: Lorie Rocha #### 7600, 496 #### [facility] [address], [address] [place] [address] Data Processing Auditor: Gigi Paul MDTriglyceride [Mass/Vol]62 mg/dLNormal<150Quest DiagnosticsComment on above:Order Comment: FASTING:YES PATIENT UNABLE TO VOID; ADVISED TO RETURN FOR COLLECTION. FASTING: YESPerformed By: #### [id number] #### [facility] [address] [place] [address] Data Processing Auditor: Lorie Rocha #### 7600, 496 #### [facility] [address], [address] [place], [place] [address] Data Processing Auditor: Gigi Paul MDAlanine aminotransferase [Enzymatic activity/volume] in Serum or PlasmaOrdered By: Dinora Hawkins on 01-86-5414ANG [Catalytic activity/Vol]Alanine aminotransferase [Enzymatic activity/volume] in Serum or Plasma7-52S[facility] Hospital LimaAlbumin [Mass/volume] in Serum or Plasma by Bromocresol green (BCG) dye binding methoOrdered By: Dinora Hawkins on 72-97-7920Iepadog BCG dye [Mass/Vol]Albumin [Mass/volume] in Serum or Plasma by Bromocresol green (BCG) dye binding methoLow3.5-5.7FHarrison Community HospitalAlkaline phosphatase [Enzymatic activity/volume] in Serum or PlasmaOrdered By: Dinora Hawkins on 56-83-1630FLI [Catalytic activity/Vol]Alkaline phosphatase [Enzymatic activity/volume] in Serum or Kjkgvs29-667WrozfamsjScci Hospital LimaAspartate aminotransferase [Enzymatic activity/volume] in Serum or PlasmaOrdered By: Dinora Hawkins on 68-13-2957KDX [Catalytic activity/Vol]Aspartate aminotransferase [Enzymatic activity/volume] in Serum or Pqtvhn84-09MbatnncktScci Hospital LimaBasophils Auto (Bld) [#/Vol]Ordered By: Dinora Hawkins on 11-22-0721Vkebmnrbx (Bld) [#/Vol]Automated basophil count 0.0-0.2FHarrison Community HospitalBasophils/100 WBC Auto (Bld)Ordered By: Dinora Hawkins on 96-36-0536Qqrntqihf/100 WBC (Bld)Automated basophil %.[facility] Hospital LimaBilirubin.total [Mass/volume] in Serum or PlasmaOrdered By: Dinora Hakwins on 01-56-6057Mnijkpuod [Mass/Vol]Bilirubin.total [Mass/volume] in Serum or Plasma0.3-1.0[facility] Hospital LimaCalcium [Mass/volume] in Serum or PlasmaOrdered By: Dinora Hawkins on 66-96-1384Vlcvjhs [Mass/Vol] Calcium [Mass/volume] in Serum or PlasmaLow8.6-10.3FHarrison Community HospitalCarbon dioxide, total [Moles/volume] in Serum or PlasmaOrdered By: Dinora Hawkins on 50-78-5478DU3 [Moles/Vol]Carbon dioxide, total [Moles/volume] in Serum or Azncsl98.0-31.0[facility] Hospital LimaChloride [Moles/volume] in Serum or PlasmaOrdered By: Dinora Hawkins on 35-50-6226Jzgcscqi [Moles/Vol] Chloride [Moles/volume] in Serum or OxmidrVolu16-075UnwmagylsScci Hospital LimaComplete Blood Count Auto Diffon 81-73-3869Iajltfbox (Bld) [#/Vol]0.0 10*3/uLNormal0.0-0.2The Counts Include [facility] Physician GroupComment on above:Result Comment: PERFORMED BY: [place] [address] PATHOLOGIST RAG CUTTING MACHINE OPERATOR CON MURPHY M.D.Performed By: #### CUBLD, LACTIC #### [place] [address] USABasophils/100 WBC (Bld)0.8 %Normal.The Counts Include [facility] Physician GroupComment on above:Performed By: #### CUBLD, LACTIC #### [place] [address] USAEosinophils (Bld) [#/Vol]0.1 10*3/uLNormal0.0-0.45The Counts Include [facility] Physician GroupComment on above:Performed By: #### CUBLD, LACTIC #### [place] [address] USAEosinophils/100 WBC (Bld)2.2 %Normal.The Counts Include [facility] Physician GroupComment on above:Performed By: #### CUBLD, LACTIC #### [place] [address] USAErythrocyte distribution width (RBC) [Ratio]16.0 %High 11.9-15.3The Counts Include [facility] Physician GroupComment on above:Performed By: #### CUBLD, LACTIC #### [place] [address] USAHematocrit (Bld) [Volume fraction]29.0 %Low34.0-46.4The Counts Include [facility] Physician GroupComment on above:Performed By: #### CUBLD, LACTIC #### [place] [address] USAHemoglobin (Bld) [Mass/Vol]9.4 g/dLLow11.8-15.4The Counts Include [address] [facility] Physician GroupComment on above:Performed By: #### CUBLD, LACTIC #### [place] [address] USALymphocytes (Bld) [#/Vol]1.1 10*3/uLNormal1.00-4.8The Counts Include [facility] Physician GroupComment on above:Performed By: #### CUBLD, LACTIC #### [place] [address] USALymphocytes/100 WBC (Bld)32.6 %Normal.The Counts Include [facility] Physician GroupComment on above:Performed By: #### CUBLD, LACTIC #### [place] [address] USAMCH (RBC) [Entitic mass]26.7 veIryhbt90.7-34.3The Counts Include [facility] Physician GroupComment on above:Performed By: #### CUBLD, LACTIC #### [place] [address] USAMCV (RBC) [Entitic vol]82.2 zULkwtsc08-663Air Counts Include [facility] Physician GroupComment on above:Performed By: #### CUBLD, LACTIC #### [place] [address] USAMean Corpuscular HGB Conc32.5 g/eYFnqlay00.0-35.0The Counts Include [facility] Physician GroupComment on above:Performed By: #### CUBLD, LACTIC #### [place] [address] USAMonocytes (Bld) [#/Vol]0.5 10*3/uLNormal0.0-0.8The Counts Include [facility] Physician GroupComment on above:Performed By: #### CUBLD, LACTIC #### [place] [address] USAMonocytes/100 WBC (Bld)15.3 %Normal.The Counts Include [address] [facility] Physician GroupComment on above:Performed By: #### CUBLD, LACTIC #### [facility] [address] [place] [address] USANeutrophils (Bld) [#/Vol]1.7 10*3/uLLow1.8-7.7The Counts Include [address] [facility] Physician GroupComment on above:Performed By: #### CUBLD, LACTIC #### [facility] [address] [place] [address] USANeutrophils/100 WBC (Bld)49.1 %Normal.The Counts Include [facility] Physician GroupComment on above:Performed By: #### CUBLD, LACTIC #### [facility] [address] [place] [address] USANRBC%0.1 /100{WBC}Normal0-0.5The Counts Include [facility] Comment on above:Performed By: #### CUBLD, LACTIC #### [facility] [address] [place] [address] USAPlatelet mean volume (Bld) [Entitic vol]7.2 fLNormal 6.3-10.7The Counts Include [address] [facility] Physician GroupComment on above:Performed By: #### CUBLD, LACTIC #### [place] [address] USAPlatelets (Bld) [#/Vol]193 10*3/hBFdqwsx176-526Jux Counts Include [address] [facility] Physician GroupComment on above:Performed By: #### CUBLD, LACTIC #### [place] [address] USARBC (Bld) [#/Vol]3.53 10*6/uLLow3.60-5.00The Counts Include [address] [facility] Physician GroupComment on above:Performed By: #### CUBLD, LACTIC #### [facility] [address] [place] [address] USAWBC (Bld) [#/Vol]3.5 10*3/uLLow3.8-11.6The Counts Include [address] [facility] Physician GroupComment on above:Performed By: #### CUBLD, LACTIC #### [place] [address] USAComprehensive Metabolic Panelon 27-45-0893Oiyaxxi [Mass/Vol]2.7 g/dLLow3.5-5.7The Counts Include [address] [facility] Physician GroupComment on above: Performed By: #### CUBLD, LACTIC #### [facility] [address] [place] [address] USAAlbumin/Globulin [Mass ratio]1.2 {ratio}NormalThe Counts Include 234 [facility] Physician GroupComment on above:Performed By: #### CUBLD, LACTIC #### [facility] [address] [place] [address] USAALP [Catalytic activity/Vol]97 U/LFmnvvj61-792Auh Counts Include [address] [facility] Physician GroupComment on above:Performed By: #### CUBLD, LACTIC #### [facility] [address] [place] [address] USAALT [Catalytic activity/Vol]11 U/LNormal7-52The Counts Include [address] [facility] Physician GroupComment on above:Performed By: #### CUBLD, LACTIC #### [place] [address] USAAnion gap [Moles/Vol]7.4 mmol/LNormal6.0-15.0The Counts Include [address] [facility] Physician GroupComment on above:Performed By: #### CUBLD, LACTIC #### [place] [address] USAAST [Catalytic activity/Vol]13 U/QYyewml75-31Lrj Counts Include [address] [facility] Physician GroupComment on above:Performed By: #### CUBLD, LACTIC #### [place] [address] USABilirubin [Mass/Vol]0.3 mg/dLNormal0.3-1.0The Counts Include [address] [facility] Physician GroupComment on above:Performed By: #### CUBLD, LACTIC #### [facility] [address] [place] [address] USACalcium [Mass/Vol]8.2 mg/dLLow8.6-10.3The Counts Include [address] [facility] Physician GroupComment on above:Performed By: #### CUBLD, LACTIC #### [facility] [address] [place] [address] USAChloride [Moles/Vol]114 mmol/HFuva15-710Zvc Counts Include [address] [facility] Physician GroupComment on above:Performed By: #### CUBLD, LACTIC #### [facility] [address] [place] [address] USACO2 [Moles/Vol]25.3 mmol/JWndopf99.0-31.0The Counts Include [address] [facility] Physician GroupComment on above:Performed By: #### CUBLD, LACTIC #### [facility] [address] [place] [address] USACreatinine [Mass/Vol]1.33 mg/dLHigh0.60-1.20The Counts Include [address] [facility] Physician GroupComment on above:Performed By: #### CUBLD, LACTIC #### [facility] [address] [place] [address] USACreatinine Clr Calc Hhrfkzmd95.16NormNorth Ridge Medical Center Physician GroupComment on above:Performed By: #### CUBLD, LACTIC #### [facility] [address] [place] [address] USAEstimated GFR46.090 mL/MinNoCape Fear Valley [facility] Hospital Physician GroupComment on above:Performed By: #### CUBLD, LACTIC #### [facility] [address] [place] [address] USAGlobulin (S) [Mass/Vol]2.3 g/dLNoCape Fear Valley Hoke Hospital Physician [facility] Hospital Of GreenvilleComment on above:Performed By: #### CUBLD, LACTIC #### [place] [address] USAGlucose [Mass/Vol]90 mg/xIXxeeug99-537Tds Counts Include [address] [facility] Physician GroupComment on above:Result Comment: Random Glucose Reference Range is dependent on time and content of last meal. Glucose of more than 200 mg/dL in a nonstressed, ambulatory subject supports the diagnosis of Diabetes Mellitus. ADA recommended reference rangePerformed By: #### CUBLD, LACTIC #### [facility] [address] [place] [address] USAPotassium [Moles/Vol]3.7 mmol/LNormal3.5-5.1The Counts Include [address] [facility] Physician GroupComment on above:Performed By: #### CUBLD, LACTIC #### [place] [address] USAProtein [Mass/Vol]5.0 g/dLLow6.4-8.9The Counts Include [address] [facility] Physician GroupComment on above:Performed By: #### CUBLD, LACTIC #### [facility] [address] [place] [address] USASodium [Moles/Vol]143 mmol/DOulloc875-698Gcb Counts Include [address] [facility] Physician [facility] Of GreenvilleComment on above:Performed By: #### CUBLD, LACTIC #### [facility] [address] [place] [address] USAUrea nitrogen [Mass/Vol]17 mg/dLNormal7-25The Counts Include [address] [facility] Physician GroupComment on above:Performed By: #### CUBLD, LACTIC #### [facility] [address] [place] [address] USACreatinine [Mass/volume] in Serum or PlasmaOrdered By: Dinora Hawkins on 65-41-5904Iadldowjth [Mass/Vol]Creatinine [Mass/volume] in Serum or PlasmaHigh0.60-1.20[facility] Hospital LimaECG 12 lead ECGon 73-68-2969JRL 12 lead ECGKINDRED H[facility] [place] [address] [place] [address] Electrocardiograph Report Signed Patient: Elizabeth Irvin MR#: [id number] 168 : 1965 Acct:[id number] Age/Sex: 58 / F ADM Date: 04/07/24 Loc: Room: [address] [place] [address] Type: DIS IN Attending Dr: Dinora Hawkins MD Ordering Provider: Dinora Hawkins MD Date of Service: 04/09/24 ECG/ECG 12 lead ECG: prior to dc, need to check qtc Copies to: Test Reason : Blood Pressure : */* mmHG Vent. Rate : 76 BPM Atrial Rate : 76 BPM P-R Int : 170 ms QRS Dur : 90 ms QT Int : 384 ms P-R-T Axes : 10 59 45 degrees QTcB Int : 432 ms Normal sinus rhythm Normal ECG No previous ECGs available Confirmed by Marcio Garcia ([id number]) on 04/10/2024 11:08:29 AM Referred By: Electronically Signed By: Marcio Garcia Transcribed By: MUS Signed By Marcio Garcia MD 04/10/24 1108[facility] Physician GroupEosinophils Auto (Bld) [#/Vol] Ordered By: Dinora Hawkins on 72-94-0621Tftifhmmvpo (Bld) [#/Vol]Automated eosinophil count0.0-0.45[facility] Hospital LimaEosinophils/100 WBC Auto (Bld)Ordered By: Dinora Hawkins on 97-61-4578Giaznjnhzrj/100 WBC (Bld) Automated eosinophil %.[facility] Hospital LimaErythrocyte distribution width Auto (RBC) [Ratio]Ordered By: Dinora Hawkins on 36-66-8409Eodndvuiqkc distribution width (RBC) [Ratio]Erythrocyte distribution width [Ratio] by Automated oujofXztx72.9-15.3FHarrison Community HospitalGlobulin Calc (S) [Mass/Vol]Ordered By: Dinora Hawkins on 58-94-6385Hykmiibp (S) [Mass/Vol]Serum globulin measurement by calculation (mass/volume)[facility] LimaGlucose [Mass/volume] in Serum or PlasmaOrdered By: Dinora Hawkins on 12-68-6717Acnjjvp [Mass/Vol]Glucose [Mass/volume] in Serum or Imczuh30-351 [facility] Hospital LimaComment on above:ADA recommended reference rangeRandom Glucose Reference Range is dependent on time and content of last meal. Glucose of more than 200 mg/dL in a nonstressed, ambulatory subject supports the diagnosisof Diabetes Mellitus.Hematocrit Auto (Bld) [Volume fraction]Ordered By: Dinora Hawkins on 81-34-8448Zzdcaxagfb (Bld) [Volume fraction]Hematocrit [Volume Fraction] of Blood by Automated dezvnWyo11.0-46.4 [facility] LimaHemoglobin [Mass/volume] in BloodOrdered By: Dinora Hawkins on 56-47-4546Dpifpdvkcd (Bld) [Mass/Vol]Hemoglobin [Mass/volume] in VqkcnDsc05.8-15.4FHarrison Community HospitalLeukocytes [#/volume] corrected for nucleated erythrocytes in Blood by Automated counOrdered By: Dinora Hawkins on 66-60-2642DNA corrected for nucl RBC Auto (Bld) [#/Vol] Leukocytes [#/volume] corrected for nucleated erythrocytes in Blood by Automated counLow3.8-11.6FHarrison Community HospitalLymphocytes Auto (Bld) [#/Vol] Ordered By: Dinora Hawkins on 11-51-2142Zriqryfjxbg (Bld) [#/Vol]Lymphocytes [#/volume] in Blood by Automated count1.00-4.8[facility] Lymphocytes/100 WBC Auto (Bld)Ordered By: Dinora Hawkins on 04-09-2024 Lymphocytes/100 WBC (Bld)Lymphocytes/100 leukocytes in Blood by Automated count. [facility] HospitalH Auto (RBC) [Entitic mass]Ordered By: Dinora Hawkins on 25-19-6788BEG (RBC) [Entitic mass]MCH [Entitic mass] by Automated count24.7-34.3FHarrison Community HospitalMCHC Auto (RBC) [Mass/Vol]Ordered By: Dinora Hawkins on 94-17-4650GQUM (RBC) [Mass/Vol]MCHC [Mass/volume] by Automated count32.0-35.0[facility] Hospital LimaMCV Auto (RBC) [Entitic vol]Ordered By: Dinora Hawkins on 42-73-9871YNX (RBC) [Entitic vol]MCV [Entitic volume] by Automated -766EbllkmhwaScci Hospital LimaMagnesiumon 04-76-6980Qiqhomxet [Mass/Vol]1.9 mg/dLNormal1.9-2.7The Counts Include [address] [facility] Physician GroupComment on above:Result Comment: PERFORMED BY: [place] [address] PATHOLOGIST RAG CUTTING MACHINE OPERATOR CON MURPHY M.D.Performed By: #### SELINA, LACTIC #### [place] [address] USAMagnesium [Mass/volume] in Serum or PlasmaOrdered By: Dinora Hawkins on 88-24-4184Qpwkglgvm [Mass/Vol]Magnesium [Mass/volume] in Serum or Plasma1.9-2.7FHarrison Community HospitalMonocytes Auto (Bld) [#/Vol] Ordered By: Dinora Hawkins on 97-78-8336Nwofvxjok (Bld) [#/Vol]Automated blood monocyte count0.0-0.8[facility] LimaMonocytes/100 WBC Auto (Bld)Ordered By: Dinora Hawkins on 61-13-6924Hhywlaokx/100 WBC (Bld)Automated monocyte %.[facility] LimaNeutrophils Auto (Bld) [#/Vol] Ordered By: Dinora Hawkins on 77-91-7204Wqiagltjgjt (Bld) [#/Vol]Neutrophils [#/volume] in Blood by Automated countLow1.8-7.7FHarrison Community HospitalNeutrophils/100 WBC Auto (Bld)Ordered By: Dinora Hawkins on 04-09-2024 Neutrophils/100 WBC (Bld)Automated neutrophil %.[facility] LimaNo Panel InformationOrdered By: Dinora Hawkins on 18-20-0743Uknmndadi GFR (CKD-EPI)46.090 mL/MinScci Hospital LimaPharmacy Creatinine Clearance (Chem42.16[facility] LimaNucleated erythrocytes [Presence] in Blood by Automated countOrdered By: Dinora Hawkins on 04-09-2024 Nucleated RBC Auto Ql (Bld)Nucleated erythrocytes [Presence] in Blood by Automated count0-0.5FHarrison Community HospitalPhosphate [Mass/volume] in Serum or PlasmaOrdered By: Dinora Hawkins on 51-00-9304Zrmccqimu [Mass/Vol] Phosphate [Mass/volume] in Serum or Plasma2.5-4.5FHarrison Community HospitalPhosphoruson 30-21-6709Fizyhlwsk [Mass/Vol]2.6 mg/dLNormal2.5-4.5The Counts Include [facility] Physician GroupComment on above:Performed By: #### SELINA, LACTIC #### [facility] [address] [place] [address] USAPlatelet mean volume Auto (Bld) [Entitic vol]Ordered By: Dinora Hawkins on 03-27-5508Eacbtgst mean volume (Bld) [Entitic vol]Platelet mean volume [Entitic volume] in Blood by Automated count6.3-10.7FHarrison Community HospitalPlatelets Auto (Bld) [#/Vol]Ordered By: Dinora Hawkins on 04-09-2024 Platelets (Bld) [#/Vol]Platelets [#/volume] in Blood by Automated evgrs824-804 [facility] LimaPotassium [Moles/volume] in Serum or Plasma Ordered By: Dinora Hawkins on 02-86-7591Tgzreymow [Moles/Vol]Potassium [Moles/volume] in Serum or Plasma3.5-5.1FHarrison Community HospitalProtein [Mass/volume] in Serum or PlasmaOrdered By: Dinora Hawkins on 52-05-2729Fpkolqw [Mass/Vol]Protein [Mass/volume] in Serum or PlasmaLow6.4-8.9[facility] LimaRBC Auto (Bld) [#/Vol]Ordered By: Dinora Hawkins on 66-70-8193WIW (Bld) [#/Vol]Erythrocytes [#/volume] in Blood by Automated countLow3.60-5.00 [facility] Hospitalerum or plasma albumin/globulin mass ratio Ordered By: Dinora Hawkins on 80-05-1824Rwqyjjf/Globulin [Mass ratio]Serum or plasma albumin/globulin mass ratioCleveland Clinic Mentor Hospitalerum or plasma anion gap determinationOrdered By: Dinora Hawkins on 06-61-2581Wttxc gap [Moles/Vol]Serum or plasma anion gap determination6.0-15.0[facility] Hospitalodium [Moles/volume] in Serum or PlasmaOrdered By: Dinora Hawkins on 62-47-9981Jqjmmh [Moles/Vol]Sodium [Moles/volume] in Serum or Twqgau918-012 [facility] LimaUrea nitrogen [Mass/volume] in Serum or Plasma Ordered By: Dinora Hawkins on 05-18-4057Rrzo nitrogen [Mass/Vol]Urea nitrogen [Mass/volume] in Serum or Plasma7-25[facility] LimaWBC Auto (Bld) [#/Vol]Ordered By: Dinora Hawkins on 37-15-0337NOF (Bld) [#/Vol]Leukocytes [#/volume] in Blood by Automated countLow3.8-11.6FHarrison Community HospitalComplete Blood Count Auto Diffon 00-03-3738Jqrmnlayu (Bld) [#/Vol]0.0 10*3/uLNormal0.0-0.2The Counts Include [facility] Physician GroupComment on above:Result Comment: PERFORMED BY: [place] [address] PATHOLOGIST RAG CUTTING MACHINE OPERATOR CON MURPHY M.D.Performed By: #### CUBLD, LACTIC #### [place] [address] USABasophils/100 WBC (Bld)0.8 %Normal.The Counts Include [facility] Physician GroupComment on above:Performed By: #### CUBLD, LACTIC #### [place] [address] USAEosinophils (Bld) [#/Vol]0.1 10*3/uLNormal0.0-0.45The Counts Include [facility] Physician GroupComment on above:Performed By: #### CUBLD, LACTIC #### [place] [address] USAEosinophils/100 WBC (Bld)2.2 %Normal.The Counts Include [facility] Physician GroupComment on above:Performed By: #### CUBLD, LACTIC #### [place] [address] USAErythrocyte distribution width (RBC) [Ratio]15.5 %High 11.9-15.3The Counts Include [address] [facility] Physician GroupComment on above:Performed By: #### CUBLD, LACTIC #### [place] [address] USAHematocrit (Bld) [Volume fraction]30.0 %Low34.0-46.4The Counts Include [address] [facility] Physician GroupComment on above:Performed By: #### CUBLD, LACTIC #### [place] [address] USAHemoglobin (Bld) [Mass/Vol]9.9 g/dLLow11.8-15.4The Counts Include [facility] Physician GroupComment on above:Performed By: #### CUBLD, LACTIC #### [place] [address] USALymphocytes (Bld) [#/Vol]0.7 10*3/uLLow1.00-4.8The Counts Include [facility] Physician GroupComment on above:Performed By: #### CUBLD, LACTIC #### [place] [address] USALymphocytes/100 WBC (Bld)23.8 %Normal.The Counts Include [facility] Physician GroupComment on above:Performed By: #### CUBLD, LACTIC #### [place] [address] USAMCH (RBC) [Entitic mass]27.0 zgMkggnq09.7-34.3The Counts Include [address] [facility] Physician GroupComment on above:Performed By: #### CUBLD, LACTIC #### [place] [address] USAMCV (RBC) [Entitic vol]81.8 qAVgxaoe12-530Nzf Counts Include [address] [facility] Physician GroupComment on above:Performed By: #### CUBLD, LACTIC #### [place] [address] USAMean Corpuscular HGB Conc33.0 g/lKErpvgi15.0-35.0The Counts Include [address] [facility] Physician GroupComment on above:Performed By: #### CUBLD, LACTIC #### [place] [address] USAMonocytes (Bld) [#/Vol]0.5 10*3/uLNormal0.0-0.8The Counts Include [facility] Physician GroupComment on above:Performed By: #### CUBLD, LACTIC #### [place] [address] USAMonocytes/100 WBC (Bld)18.2 %Normal.The Counts Include [facility] Physician GroupComment on above:Performed By: #### CUBLD, LACTIC #### [place] [address] USANeutrophils (Bld) [#/Vol]1.6 10*3/uLLow1.8-7.7The Counts Include [address] [facility] Physician GroupComment on above:Performed By: #### CUBLD, LACTIC #### [place] [address] USANeutrophils/100 WBC (Bld)55.0 %Normal.The Counts Include [facility] Physician GroupComment on above:Performed By: #### CUBLD, LACTIC #### [place] [address] USANRBC%0.2 /100{WBC}Normal0-0.5The Counts Include [address] [facility] Group Comment on above:Performed By: #### CUBLD, LACTIC #### [place] [address] USAPlatelet mean volume (Bld) [Entitic vol]7.3 fLNormal 6.3-10.7The Counts Include [address] [facility] Physician GroupComment on above:Performed By: #### CUBLD, LACTIC #### [place] [address] USAPlatelets (Bld) [#/Vol]196 10*3/aOAuownm585-786Wfq Counts Include [address] [facility] Physician GroupComment on above:Performed By: #### CUBLD, LACTIC #### [place] [address] USARBC (Bld) [#/Vol]3.67 10*6/uLNormal3.60-5.00The Counts Include [address] [facility] Physician GroupComment on above:Performed By: #### CUBLD, LACTIC #### [place] [address] USAWBC (Bld) [#/Vol]2.9 10*3/uLLow3.8-11.6The Counts Include [address] [facility] Physician GroupComment on above:Performed By: #### CUBLD, LACTIC #### [place] [address] USAComprehensive Metabolic Panelon 24-57-8927Kunifwd [Mass/Vol]2.8 g/dLLow3.5-5.7The Counts Include [address] [facility] Physician GroupComment on above: Performed By: #### CUBLD, LACTIC #### [facility] [address] [place] [address] USAAlbumin/Globulin [Mass ratio]1.0 {ratio}NormalThe Counts Include [facility] Physician GroupComment on above:Performed By: #### CUBLD, LACTIC #### [facility] [address] [place] [address] USAALP [Catalytic activity/Vol]99 U/JFmuwyx39-250Yru Counts Include [facility] Physician GroupComment on above:Performed By: #### CUBLD, LACTIC #### [facility] [address] [place] [address] USAALT [Catalytic activity/Vol]12 U/LNormal7-52The Counts Include [address] [facility] Physician GroupComment on above:Performed By: #### CUBLD, LACTIC #### [facility] [address] [place] [address] USAAnion gap [Moles/Vol]11.0 mmol/LNormal6.0-15.0The Counts Include [address] [facility] Physician GroupComment on above:Performed By: #### CUBLD, LACTIC #### [facility] [address] [place] [address] USAAST [Catalytic activity/Vol]15 U/JLoezxw69-84Mos Counts Include [address] [facility] Physician GroupComment on above:Performed By: #### CUBLD, LACTIC #### [facility] [address] [place] [address] USABilirubin [Mass/Vol]0.2 mg/dLLow0.3-1.0The Counts Include [address] [facility] Physician GroupComment on above:Performed By: #### CUBLD, LACTIC #### [facility] [address] [place] [address] USACalcium [Mass/Vol]8.5 mg/dLLow8.6-10.3The Counts Include [address] [facility] Physician GroupComment on above:Performed By: #### CUBLD, LACTIC #### [facility] [address] [place] [address] USAChloride [Moles/Vol]114 mmol/YErkt04-678Naq Counts Include [address] [facility] Physician GroupComment on above:Performed By: #### CUBLD, LACTIC #### [facility] [address] [place] [address] USACO2 [Moles/Vol]21.8 mmol/YBzwbmt59.0-31.0The Counts Include [address] [facility] Physician GroupComment on above:Performed By: #### CUBLD, LACTIC #### [facility] [address] [place] [address] USACreatinine [Mass/Vol]1.56 mg/dLHigh0.60-1.20The Counts Include [address] [facility] Physician GroupComment on above:Performed By: #### CUBLD, LACTIC #### [facility] [address] [place] [address] USACreatinine Clr Calc Yibstjak46.99NoCape Fear Valley [facility] Hospital Physician GroupComment on above:Performed By: #### CUBMIGUEL, LACTIC #### [place] [address] USAEstimated GFR38.061 mL/MinNoCape Fear Valley Hoke Hospital Physician [facility] Hospital Of GreenvilleComment on above:Performed By: #### CUBMIGUEL, LACTIC #### [place] [address] USAGlobulin (S) [Mass/Vol]2.8 g/dLNoCape Fear Valley Hoke Hospital Physician GroupComment on above:Performed By: #### CUBLD, LACTIC #### [place] [address] USAGlucose [Mass/Vol]87 mg/nXGfbhav07-394Jfj Counts Include [address] [facility] Physician GroupComment on above:Result Comment: Random Glucose Reference Range is dependent on time and content of last meal. Glucose of more than 200 mg/dL in a nonstressed, ambulatory subject supports the diagnosis of Diabetes Mellitus. ADA recommended reference rangePerformed By: #### CUBLD, LACTIC #### [place] [address] USAPotassium [Moles/Vol]3.8 mmol/LNormal3.5-5.1The Counts Include [address] [facility] Physician GroupComment on above:Performed By: #### CUBLD, LACTIC #### [place] [address] USAProtein [Mass/Vol]5.6 g/dLLow6.4-8.9The Counts Include [address] [facility] Physician GroupComment on above:Performed By: #### CUBLD, LACTIC #### [facility] [address] [place] [address] USASodium [Moles/Vol]143 mmol/OSqfowh303-790Pyb Counts Include [address] [facility] Physician GroupComment on above:Performed By: #### CUBLD, LACTIC #### [facility] [address] [place] [address] USAUrea nitrogen [Mass/Vol]17 mg/dLNormal7-25The Counts Include [address] [facility] Physician GroupComment on above:Performed By: #### CUBLD, LACTIC #### [facility] [address] [place] [address] USAMagnesiumon 32-10-8825Jzxdhxgrp [Mass/Vol]2.0 mg/dLNormal 1.9-2.7The Counts Include [address] [facility] Physician GroupComment on above:Result Comment: PERFORMED BY: [place] [address] PATHOLOGIST RAG CUTTING MACHINE OPERATOR CON MURPHY M.D.Performed By: #### CUBLD, LACTIC #### [place] [address] USAPhosphoruson 19-43-7760Tmuvrrkiq [Mass/Vol]2.4 mg/dLLow 2.5-4.5The Counts Include [address] [facility] Physician GroupComment on above:Performed By: #### CUBLD, LACTIC #### [facility] [address] [place] [address] USAAnisocytosis LM Ql (Bld)Ordered By: Cecille Morel on 22-70-1288Fpgwtwzjjaks Ql (Bld)Anisocytosis [Presence] in Blood by Light microscopyScci Hospital LimaBand form neutrophils/100 WBC Manual cnt (Bld)Ordered By: Cecille Morel on 79-50-8312Kpjn form neutrophils/100 WBC (Bld)Peripheral white blood cell differential % bands, microscopic examHigh0-5 [facility] LimaBasic Metabolic Panelon 65-47-7963Fjgmu gap [Moles/Vol]9.3 mmol/LNormal6.0-15.0The Counts Include [address] [facility] Physician GroupComment on above:Performed By: #### DIFF CBC, BMP, MG #### [facility] [address] [place] [address] USACalcium [Mass/Vol]8.2 mg/dLLow8.6-10.3The Counts Include [address] [facility] Physician GroupComment on above:Performed By: #### DIFF CBC, BMP, MG #### [facility] [address] [place] [address] USAChloride [Moles/Vol]111 mmol/NReks62-713Kzx Counts Include [address] [facility] Physician GroupComment on above:Performed By: #### DIFF CBC, BMP, MG #### [facility] [address] [place] [address] USACO2 [Moles/Vol]22.5 mmol/TKtivpz75.0-31.0The Counts Include [address] [facility] Physician GroupComment on above:Performed By: #### DIFF CBC, BMP, MG #### [facility] [address] [place] [address] USACreatinine [Mass/Vol]1.53 mg/dLHigh0.60-1.20The Counts Include [address] [facility] Physician GroupComment on above:Performed By: #### DIFF CBC, BMP, MG #### [facility] [address] [place] [address] USACreatinine Clr Calc Xcpwnuiz38.40NoCape Fear Valley [facility] Hospital Physician GroupComment on above:Performed By: #### DIFF CBC, BMP, MG #### [facility] [address] [place] [address] USAEstimated GFR38.958 mL/MinNoCape Fear Valley [facility] Hospital Physician GroupComment on above:Performed By: #### DIFF CBC, BMP, MG #### [facility] [address] [place] [address] USAGlucose [Mass/Vol]87 mg/lHFoacxh16-586Asi Counts Include [address] [facility] Physician GroupComment on above:Result Comment: Random Glucose Reference Range is dependent on time and content of last meal. Glucose of more than 200 mg/dL in a nonstressed, ambulatory subject supports the diagnosis of Diabetes Mellitus. ADA recommended reference rangePerformed By: #### DIFF CBC, BMP, MG #### [facility] [address] [place] [address] USAPotassium [Moles/Vol]3.8 mmol/LNormal3.5-5.1The Counts Include [address] [facility] Physician GroupComment on above:Performed By: #### DIFF CBC, BMP, MG #### [facility] [address] [place] [address] USASodium [Moles/Vol]139 mmol/KJqmbhp374-816Hax Counts Include [address] [facility] Physician GroupComment on above:Performed By: #### DIFF CBC, BMP, MG #### [facility] [address] [place] [address] USAUrea nitrogen [Mass/Vol]19 mg/dLNormal7-25The Counts Include [address] [facility] Physician GroupComment on above:Performed By: #### DIFF CBC, BMP, MG #### [facility] [address] [place] [address] USADiff and CBCon 85-29-7411Upkrlqtnggjc Ql (Bld)SlightNormal The Counts Include [address] [facility] Physician GroupComment on above:Performed By: #### DIFF CBC, BMP, MG #### [facility] [address] [place] [address] USABand form neutrophils/100 WBC (Bld)7 %High0-5The Counts Include [address] [facility] Physician GroupComment on above:Performed By: #### DIFF CBC, BMP, MG #### [facility] [address] [place] [address] USAEosinophils/100 WBC (Bld)2 %Normal1-3The Counts Include [address] [facility] Physician GroupComment on above:Performed By: #### DIFF CBC, BMP, MG #### [facility] [address] [place] [address] USAErythrocyte distribution width (RBC) [Ratio]15.5 %High 11.9-15.3The Counts Include [address] [facility] Physician GroupComment on above:Performed By: #### DIFF CBC, BMP, MG #### [facility] [address] [place] [address] USAHematocrit (Bld) [Volume fraction]30.7 %Low34.0-46.4The Counts Include [address] [facility] Physician GroupComment on above:Performed By: #### DIFF CBC, BMP, MG #### [facility] [address] [place] [address] USAHemoglobin (Bld) [Mass/Vol]9.9 g/dLLow11.8-15.4The Counts Include [address] [facility] Physician GroupComment on above:Performed By: #### DIFF CBC, BMP, MG #### [facility] [address] [place] [address] USALymphocytes/100 WBC (Bld)16 %Ncc99-42Sde Counts Include [address] [facility] Physician GroupComment on above:Performed By: #### DIFF CBC, BMP, MG #### [place] [address] USAMCH (RBC) [Entitic mass]26.7 xnHfwkru80.7-34.3The Counts Include [address] [facility] Physician GroupComment on above:Performed By: #### DIFF CBC, BMP, MG #### [facility] [address] [place] [address] USAMCV (RBC) [Entitic vol]82.4 sZXjvgcp21-499Ivr Counts Include [address] [facility] Physician GroupComment on above:Performed By: #### DIFF CBC, BMP, MG #### [facility] [address] [place] [address] USAMean Corpuscular HGB Conc32.4 g/aMYwchkc98.0-35.0The Counts Include [address] [facility] Physician GroupComment on above:Performed By: #### DIFF CBC, BMP, MG #### [facility] [address] [place] [address] USAMonocytes/100 WBC (Bld)7 %Normal2-11The Counts Include [address] [facility] Physician GroupComment on above:Performed By: #### DIFF CBC, BMP, MG #### [facility] [address] [place] [address] USAOvalocytesSlightNormNorth Ridge Medical Center Physician GroupComment on above:Performed By: #### DIFF CBC, BMP, MG #### [facility] [address] [place] [address] USAPlatelet EstimateNormalNormalNormNorth Ridge Medical Center Physician GroupComment on above:Performed By: #### DIFF CBC, BMP, MG #### [address] [place] [address] USAPlatelet mean volume (Bld) [Entitic vol]7.8 fLNormal 6.3-10.7The Counts Include [address] [facility] Physician GroupComment on above:Performed By: #### DIFF CBC, BMP, MG #### [place] [address] USAPlatelet MorphologyNormalNormalNormalThe Counts Include [address] [facility] Physician GroupComment on above:Result Comment: PERFORMED BY: [place] [address] PATHOLOGIST RAG CUTTING MACHINE OPERATOR CON MURPHY M.D.Performed By: #### DIFF CBC, BMP, MG #### [place] [address] USAPlatelets (Bld) [#/Vol]152 10*3/cNRsjizt975-976Oys Counts Include [address] [facility] Physician GroupComment on above:Performed By: #### DIFF CBC, BMP, MG #### [place] [address] USARBC (Bld) [#/Vol]3.73 10*6/uLNormal3.60-5.00The Counts Include [address] [facility] Physician GroupComment on above:Performed By: #### DIFF CBC, BMP, MG #### [place] [address] USASegmented neutrophils/100 WBC (Bld)69 %Mdcukj80-92Ztj Counts Include [address] [facility] Physician GroupComment on above:Performed By: #### DIFF CBC, BMP, MG #### [place] [address] USAWBC (Bld) [#/Vol]3.2 10*3/uLLow3.8-11.6The Counts Include [address] [facility] Physician GroupComment on above:Performed By: #### DIFF CBC, BMP, MG #### [place] [address] USAEosinophils/100 WBC Manual cnt (Bld)Ordered By: Cecille Morel on 01-67-5875Sntbdtzcvfs/100 WBC (Bld)Eosinophils/100 leukocytes in Blood by Manual count1-3FHarrison Community HospitalErythrocyte morphology finding [Identifier] in BloodOrdered By: Cecille Morel on 34-13-7039DAZ morphology finding Nom (Bld)RBC morphologyScci Hospital LimaLymphocytes/100 WBC Manual cnt (Bld)Ordered By: Cecille Morel on 73-06-4910Gptlpydbeof/100 WBC (Bld)Lymphocytes/100 leukocytes in Blood by Manual qsnziTjd59-99WbqxkzuemScci Hospital LimaMagnesiumon 85-41-0744Ccqlznfsf [Mass/Vol]1.9 mg/dLNormal 1.9-2.7The Counts Include [address] [facility] Physician GroupComment on above:Result Comment: PERFORMED BY: [place] [address] PATHOLOGIST RAG CUTTING MACHINE OPERATOR CON MURPHY M.D.Performed By: #### DIFF CBC, BMP, MG #### [place] [address] USAMonocytes/100 WBC Manual cnt (Bld)Ordered By: Cecille Morel on 93-28-1671Cjxlrxyhp/100 WBC (Bld)Monocytes/100 leukocytes in Blood by Manual count2-[facility] Hospital LimaOvalocytes [Presence] in Blood by Light microscopyOrdered By: Cecille Morel on 13-26-6281Ctyooypjhz LM Ql (Bld) Ovalocyte detectionScci Hospital LimaPlatelet adequacy [Presence] in Blood by Light microscopyOrdered By: Cecille Morel on 21-04-1278Wnphhoydi LM Ql (Bld)Platelet adequacy [Presence] in Blood by Light microscopyNoOhioHealth Marion General HospitalPlatelet morphology finding [Identifier] in BloodOrdered By: Cecille Morel on 29-64-3814Nwbbwxnd morphology finding Nom (Bld)Platelet morphology finding [Identifier] in BloodNoOhioHealth Marion General Hospital Segmented neutrophils/100 WBC Manual cnt (Bld)Ordered By: Cecille Morel on 61-42-3884Vioubffgy neutrophils/100 WBC (Bld)Manual blood segmented neutrophils/100 nqmjdaaiba61-39VyjlbxrycScci Hospital LimaAlanine aminotransferase [Enzymatic activity/volume] in Serum or PlasmaOrdered By: PROVIDER TEMP on 57-36-3893JAI [Catalytic activity/Vol]Alanine aminotransferase [Enzymatic activity/volume] in Serum or Plasma7-52[facility] Hospital LimaAlbumin [Mass/volume] in Serum or Plasma by Bromocresol green (BCG) dye binding methoOrdered By: PROVIDER TEMP on 33-49-9280Wjhapmn BCG dye [Mass/Vol] Albumin [Mass/volume] in Serum or Plasma by Bromocresol green (BCG) dye binding methoLow3.5-5.7FHarrison Community HospitalAlkaline phosphatase [Enzymatic activity/volume] in Serum or PlasmaOrdered By: PROVIDER TEMP on 71-51-7044PME [Catalytic activity/Vol]Alkaline phosphatase [Enzymatic activity/volume] in Serum or BhbuhhQoom34-530MguhikrazScci Hospital LimaAppearance of Urine Ordered By: PROVIDER TEMP on 71-22-6820Zxibvixeru (U)Urine appearanceClear [facility] Hospital LimaAspartate aminotransferase [Enzymatic activity/volume] in Serum or PlasmaOrdered By: PROVIDER TEMP on 57-20-9294FXL [Catalytic activity/Vol]Aspartate aminotransferase [Enzymatic activity/volume] in Serum or JfobgtXtak97-41LmmtjuwgyScci Hospital LimaBacteria [Presence] in Urine by AutomatedOrdered By: PROVIDER TEMP on 31-02-2165Magjigpj Auto Ql (U) Bacteria [Presence] in Urine by AutomatedNone [facility] HospitalBasic Metabolic Panelon 55-43-3684Dljfi gap [Moles/Vol]12.1 mmol/LNormal 6.0-15.0The Counts Include [address] [facility] Physician GroupComment on above:Performed By: #### HEPATIC, CBC, LIPASE, BMP ####[facility] [place] [address] USACalcium [Mass/Vol]8.8 mg/dLNormal8.6-10.3The Counts Include [address] [facility] Physician GroupComment on above:Performed By: #### HEPATIC, CBC, LIPASE, BMP ####[facility] [address] [place] [address] USAChloride [Moles/Vol]107 mmol/UVbatqb07-080Rmb Counts Include [address] [facility] Physician Group Comment on above:Performed By: #### HEPATIC, CBC, LIPASE, BMP ####[facility] [place] [address] USACO2 [Moles/Vol]22.4 mmol/KQiydki95.0-31.0The Counts Include [address] [facility] Physician [facility] Of GreenvilleComment on above:Performed By: #### HEPATIC, CBC, LIPASE, BMP ####[address] [place] [place] [address] USACreatinine [Mass/Vol]1.81 mg/dLHigh0.60-1.20The Counts Include [facility] Physician [facility] Hospital Of GreenvilleComment on above:Performed By: #### HEPATIC, CBC, LIPASE, BMP ####[place] [id number] USACreatinine Clr Calc Khunshzk37.77[facility] Physician [facility] Comment on above:Performed By: #### HEPATIC, CBC, LIPASE, BMP ####[address] [address] USAEstimated GFR31.843 mL/MinNoCape Fear Valley [facility] Physician [facility] Of GreenvilleComment on above:Performed By: #### HEPATIC, CBC, LIPASE, BMP ####[place] [id number] USAGlucose [Mass/Vol]98 mg/vMHtpilu09-165Kmu Counts Include [facility] Physician [facility] Of GreenvilleComment on above:Result Comment: Random Glucose Reference Range is dependent on time and content of last meal. Glucose of more than 200 mg/dL in a nonstressed, ambulatory subject supports the diagnosis of Diabetes Mellitus. ADA recommended reference rangePerformed By: #### HEPATIC, CBC, LIPASE, BMP ####[address] [address] [place] Potassium [Moles/Vol]3.5 mmol/LNormal3.5-5.1The Counts Include [facility] Physician [facility] GreenvilleComment on above:Performed By: #### HEPATIC, CBC, LIPASE, BMP ####[place] [id number] USASodium [Moles/Vol]138 mmol/L Rtrpzw489-300Bcp Counts Include [facility] Physician [facility] GreenvilleComment on above:Performed By: #### HEPATIC, CBC, LIPASE, BMP ####[address] [place] [address] USAUrea nitrogen [Mass/Vol]24 mg/dLNormal7-25The Counts Include [facility] Physician GroupComment on above:Performed By: #### HEPATIC, CBC, LIPASE, BMP ####[facility] [address] [place] [address] USABasophils Auto (Bld) [#/Vol]Ordered By: PROVIDER TEMP on 04-06-2024 Basophils (Bld) [#/Vol]Automated basophil count0.0-0.2FHarrison Community HospitalBasophils/100 WBC Auto (Bld)Ordered By: PROVIDER TEMP on 04-06-2024 Basophils/100 WBC (Bld)Automated basophil %.[facility] Bilirubin Test strip Ql (U)Ordered By: PROVIDER TEMP on 72-16-7406Bfuwvsoss Ql (U)Bilirubin.total [Presence] in Urine by Test stripNegativeScci Hospital LimaBilirubin.direct [Mass/volume] in Serum or PlasmaOrdered By: PROVIDER TEMP on 57-96-1340Stbfpzwaz.direct [Mass/Vol]Bilirubin.direct [Mass/volume] in Serum or PlasmaLow0.03-0.18FHarrison Community Hospital Comment on above:If the DBIL is less than 0.1, IBIL is not able to becalculated. Bilirubin.total [Mass/volume] in Serum or PlasmaOrdered By: PROVIDER TEMP on 29-77-4805Vfyzszcpr [Mass/Vol]Bilirubin.total [Mass/volume] in Serum or Plasma 0.3-1.0[facility] Hospital LimaBlood Cultureon 29-91-6762Oqtkbffu identified Cx Nom (Bld)NO GROWTH 5 DAYS PERFORMED BY: [facility] [address] [place] [address] PATHOLOGIST RAG CUTTING MACHINE OPERATOR CON MURPHY M.D.NormalThe Counts Include [facility] Physician GroupComment on above: Performed By: #### CUBLD, LACTIC #### [facility] [address] [place] [address] USABacteria identified Cx Nom (Bld)NO GROWTH 5 DAYS PERFORMED BY: [facility] [address] [place] [address] PATHOLOGIST RAG CUTTING MACHINE OPERATOR CON FernandezPalm Bay Community Hospital Physician GroupComment on above: Performed By: #### PANCHO MARKS #### [facility] [address] [place] [address] USACT abdomen pelvis wo conon 47-81-7475PN abdomen pelvis wo [facility] [place] [address] [place] [id number] Scan Report Signed Patient: Elizabeth Irvin MR#: [id number] : 1965 Acct:[id number] Age/Sex: 58 / F ADM Date: 04/06/24 Loc: ER Room: Type: PRE ER Attending Dr: Copies to: Ivonne Gutierrez APRN TEMP, PROVIDER Ordering Provider: Ivonne Gutierrez APRN Date of Service: 04/06/24 CT/CT abdomen pelvis wo con: flank pain CT Abdomen and Pelvis withoutcontrast TECHNIQUE: Axial imaging with 2-D reconstruction. . The CT exam was performed using one or more the following dose reduction techniques: Automated exposure control, adjustment of the MA and/or Kv according to patient size, or use of the iterative reconstruction technique. COMPARISON: None History: UTI symptoms. LIMITATIONS: None LOWER THORAX Unremarkable LIVER: Unremarkable GALLBLADDER: No gallbladder abnormality identified. BILE DUCTS: No dilatation SPLEEN: Unremarkable PANCREAS: Unremarkable ADRENAL GLANDS: Unremarkable KIDNEYS:Marked atrophy of the LEFT kidney. Proximal 5 mm LEFT ureteral stone. No hydronephrosis. Small RIGHT renal cyst. No RIGHT hydronephrosis or obstructing stone. AORTA: No abdominal aortic aneurysm identified. RETROPERITONEUM: No significant retroperitoneal abnormalities identified. MESENTERY:Unremarkable SMALL BOWEL: The small bowel loops are nondistended. Gastric bypass changes. APPENDIX: The appendix is normal. COLON: Unremarkable URINARY BLADDER: Urinary bladder wall thickening. Underdistention versus cystitis. REPRODUCTIVE SYSTEM: Reproductive structures are unremarkable. PNEUMOPERITONEUM: None PERITONEAL FLUID:None BONY STRUCTURES: Degenerative change ABDOMINAL WALL: Anasarca CT/CT abdomen pelvis wo con IMPRESSION: Urinary bladder wall thickening. Underdistention versus cystitis. LEFT renal atrophy. Proximal 5 mm LEFT renal stone. No hydronephrosis. There are no RIGHT hydronephrosis or obstructing stone. Impression dictated by: Michael Cheung M.D.04/06/2024 4:53 PM Dictation Location: [place] [address] Transcribed By: [facility] 04/06/241652 Dictated By: Michael Cheung DO 04/06/24 1646 Signed By: 04/06/24 1653[facility] Physician GroupCalcium [Mass/volume] in Serum or PlasmaOrdered By: PROVIDER TEMP on 53-06-4177Lduhltj [Mass/Vol]Calcium [Mass/volume] in Serum or Plasma8.6-10.3FHarrison Community HospitalCarbon dioxide, total [Moles/volume] in Serum or PlasmaOrdered By: PROVIDER TEMP on 35-64-6520PM6 [Moles/Vol]Carbon dioxide, total [Moles/volume] in Serum or Plasma 21.0-31.0[facility] LimaChloride [Moles/volume] in Serum or PlasmaOrdered By: PROVIDER TEMP on 55-34-2718Aprmkbwb [Moles/Vol]Chloride [Moles/volume] in Serum or Futspn54-964VhlbvluryScci Hospital LimaColor Auto (U)Ordered By: PROVIDER TEMP on 74-87-2486Nundv (U)Color of Urine by Auto YellowScci Hospital LimaComplete Blood Count Auto Diffon 34-90-1367Xbkpvjhdk (Bld) [#/Vol]0.0 10*3/uLNormal0.0-0.2The Counts Include [address] [facility] Physician GroupComment on above:Result Comment: PERFORMED BY: [facility] [address] [place] [address] PATHOLOGIST RAG CUTTING MACHINE OPERATOR CON MURPHY M.D.Performed By: #### HEPATIC, CBC, LIPASE, BMP ####[place] [address] [place] [id number] [place] Basophils/100 WBC (Bld)0.7 %Normal.The Counts Include [address] [facility] Physician GroupComment on above:Performed By: #### HEPATIC, CBC, LIPASE, BMP ####[facility] [place] [address] USAEosinophils (Bld) [#/Vol]0.0 10*3/uLNormal0.0-0.45The Counts Include [address] [facility] Physician GroupComment on above:Performed By: #### HEPATIC, CBC, LIPASE, BMP ####[place] [address] USAEosinophils/100 WBC (Bld)1.0 %Normal.The Counts Include [address] [facility] Physician GroupComment on above:Performed By: #### HEPATIC, CBC, LIPASE, BMP ####[address] Erythrocyte distribution width (RBC) [Ratio]15.5 %High11.9-15.3The Counts Include [address] [facility] Physician GroupComment on above:Performed By: #### HEPATIC, CBC, LIPASE, BMP ####[address] Hematocrit (Bld) [Volume fraction]34.8 %Yxxqrw68.0-46.4The Counts Include [address] [facility] Physician GroupComment on above:Performed By: #### HEPATIC, CBC, LIPASE, BMP ####[place] [address] USAHemoglobin (Bld) [Mass/Vol]11.4 g/dLLow11.8-15.4The Counts Include [address] [facility] Physician GroupComment on above: Performed By: #### HEPATIC, CBC, LIPASE, BMP ####[place] [address] USALymphocytes (Bld) [#/Vol]0.3 10*3/uL Low1.00-4.8The Counts Include [address] [facility] Physician GroupComment on above:Performed By: #### HEPATIC, CBC, LIPASE, BMP ####[place] [address] USALymphocytes/100 WBC (Bld)9.9 %Normal.The Counts Include [address] [facility] Physician GroupComment on above:Performed By: #### HEPATIC, CBC, LIPASE, BMP ####[place] [address] USAMCH (RBC) [Entitic mass]26.8 bmRbbidw92.7-34.3The Counts Include [address] [facility] Physician GroupComment on above:Performed By: #### HEPATIC, CBC, LIPASE, BMP ####[place] [id number] USAMCV (RBC) [Entitic vol]81.4 fL Ukkjbv37-500Rbo Counts Include [address] [facility] Physician [facility] Of GreenvilleComment on above:Performed By: #### HEPATIC, CBC, LIPASE, BMP ####[place] [id number] USAMean Corpuscular HGB Conc32.9 g/jVHfbfdq54.0-35.0The Counts Include [address] [facility] Physician GroupComment on above:Performed By: #### HEPATIC, CBC, LIPASE, BMP ####[place] [id number] USAMonocytes (Bld) [#/Vol]0.3 10*3/uLNormal0.0-0.8The Counts Include [address] [facility] Physician GroupComment on above:Performed By: #### HEPATIC, CBC, LIPASE, BMP ####[place] [id number] USAMonocytes/100 WBC (Bld)26.41 %High0.00-20.00The Counts Include [address] [facility] Physician GroupComment on above:Result Comment: For adults in ED, MDW > 20.0 may be associated with a higher risk of sepsis during the first 12 hrs of hospital admissionPerformed By: #### HEPATIC, CBC, LIPASE, BMP ####[place] [id number] USAMonocytes/100 WBC (Bld)10.2 %Normal.The Counts Include [address] [facility] Physician GroupComment on above:Performed By: #### HEPATIC, CBC, LIPASE, BMP ####[address] [address] [place] Neutrophils (Bld) [#/Vol]2.6 10*3/uLNormal1.8-7.7The Counts Include [address] [facility] Physician Group Comment on above:Performed By: #### HEPATIC, CBC, LIPASE, BMP ####[place] [id number] USANeutrophils/100 WBC (Bld)78.2 %Normal.The Counts Include [address] [facility] Physician GroupComment on above:Performed By: #### HEPATIC, CBC, LIPASE, BMP ####[place] [id number] USANRBC%0.1 /100{WBC}Normal0-0.5The Counts Include [address] [facility] Physician GroupComment on above:Performed By: #### HEPATIC, CBC, LIPASE, BMP ####[place] [id number] RUST Platelet mean volume (Bld) [Entitic vol]7.5 fLNormal6.3-10.7The Counts Include [address] [facility] Physician GroupComment on above:Performed By: #### HEPATIC, CBC, LIPASE, BMP ####[place] [phone] RUST Platelets (Bld) [#/Vol]185 10*3/mQLteyqm571-293Het Counts Include [address] [facility] Physician Group Comment on above:Performed By: #### HEPATIC, CBC, LIPASE, BMP ####[place] [address] USARBC (Bld) [#/Vol]4.27 10*6/uLNormal3.60-5.00The Counts Include [address] [facility] Physician GroupComment on above:Performed By: #### HEPATIC, CBC, LIPASE, BMP ####[place] [address] USAWBC (Bld) [#/Vol]3.4 10*3/uLLow3.8-11.6The Counts Include [address] [facility] Physician GroupComment on above:Performed By: #### HEPATIC, CBC, LIPASE, BMP ####[place] [id number] RUST Creatinine [Mass/volume] in Serum or PlasmaOrdered By: PROVIDER TEMP on 67-71-5066Ovlklcqyzc [Mass/Vol]Creatinine [Mass/volume] in Serum or PlasmaHigh 0.60-1.20[facility]cci Hospital LimaDipstick and Microscopicon 04-06-2024 Appearance (U)ClearNormalClearThe Counts Include [address] [facility] Physician GroupComment on above: Order Comment: Name Collection Type:: Clean-Voided MidstreamPerformed By: #### CUU, ADDONUAPLUS #### [facility] [address] [place] [address] USABacteria,UrineRareNormalNone SeenPalm Bay Community Hospital Physician GroupComment on above:Order Comment: Name Collection Type:: Clean-Voided MidstreamPerformed By: #### CUU, ADDONUAPLUS #### [facility] [address] [place] [address] USABilirubin,UrineNegativeNormalNegativePalm Bay Community Hospital Physician GroupComment on above:Order Comment: Name Collection Type:: Clean- Voided MidstreamPerformed By: #### CUU, ADDONUAPLUS #### [facility] [address] [place] [address] USAColor (U)Light-YellowNormalYellowPalm Bay Community Hospital Physician GroupComment on above:Order Comment: Name Collection Type:: Clean-Voided MidstreamPerformed By: #### CUU, ADDONUAPLUS #### [facility] [address] [place] [address] USAGlucose Ql (U)NormalNormalNormNorth Ridge Medical Center Physician GroupComment on above:Order Comment: Name Collection Type:: Clean-Voided MidstreamPerformed By: #### CUU, ADDONUAPLUS #### [facility] [address] [place] [address] USAHyaline Casts,Urine0 [LPF]Normal0-8The Counts Include [address] [facility] Physician GroupComment on above:Order Comment: Name Collection Type:: Clean-Voided MidstreamPerformed By: #### CUU, ADDONUAPLUS #### [facility] [address] [place] [address] USAKetones Ql (U)NegativeNormalNegativePalm Bay Community Hospital Physician GroupComment on above:Order Comment: Name Collection Type:: Clean- Voided MidstreamPerformed By: #### CUU, ADDONUAPLUS #### [facility] [address] [place] [address] USALeukocyte esterase Test strip Ql (U)3+HighNegativePalm Bay Community Hospital Physician GroupComment on above:Order Comment: Name Collection Type:: Clean-Voided MidstreamPerformed By: #### CUU, ADDONUAPLUS #### [place] [address] USAMucus,UrineRareNormalThe Counts Include [address] [facility] Physician GroupComment on above:Order Comment: Name Collection Type:: Clean-Voided MidstreamResult Comment: PERFORMED BY: [place] [address] PATHOLOGIST RAG CUTTING MACHINE OPERATOR CON MURPHY M.D.Performed By: #### CUU, ADDONUAPLUS #### [place] [address] USANitrite,UrineNegativeNormalNegativeThe Counts Include [address] [facility] Physician GroupComment on above:Order Comment: Name Collection Type:: Clean-Voided MidstreamPerformed By: #### CUU, ADDONUAPLUS #### [place] [address] USAOccult Blood,Urine1+HighNegativeThe Counts Include [address] [facility] Physician GroupComment on above:Order Comment: Name Collection Type:: Clean-Voided MidstreamResult Comment: PERFORMED BY: [place] [address] PATHOLOGIST RAG CUTTING MACHINE OPERATOR CON MURPHY M.D.Performed By: #### CUU, ADDONUAPLUS #### [place] [address] USApH (U)6.0 [pH]Normal5.0-9.0The Counts Include [address] [facility] Physician Group Comment on above:Order Comment: Name Collection Type:: Clean-Voided Midstream Performed By: #### CUU, ADDONUAPLUS #### [place] [address] USAProtein (U) [Mass/Vol]50 mg/dLHighNegativeThe Counts Include [address] [facility] Physician GroupComment on above:Order Comment: Name Collection Type:: Clean- Voided MidstreamPerformed By: #### CUU, ADDONUAPLUS #### [place] [address] USARBC,Urine3 [HPF]Normal0-4The Counts Include [address] [facility] Physician Group Comment on above:Order Comment: Name Collection Type:: Clean-Voided Midstream Performed By: #### CUU, ADDONUAPLUS #### [facility] [address] [place] [address] USASpecificy Rangely,Urine1.474Sipinf1.001-1.030The Counts Include [address] [facility] Physician GroupComment on above:Order Comment: Name Collection Type:: Clean- Voided MidstreamPerformed By: #### CUU, ADDONUAPLUS #### [place] [address] USASquamous Epithelial Cell,Urine1 [HPF]Normal0-2The Counts Include [address] [facility] Physician GroupComment on above:Order Comment: Name Collection Type:: Clean-Voided MidstreamPerformed By: #### CUU, ADDONUAPLUS #### [place] [address] USAUrobilinogen,UrineNormalNormalNormalThe Counts Include [address] [facility] Physician GroupComment on above:Order Comment: Name Collection Type:: Clean- Voided MidstreamPerformed By: #### CUU, ADDONUAPLUS #### [place] [address] USAWBC,Urine20 [HPF]High0-4The Counts Include [address] [facility] Physician Group Comment on above:Order Comment: Name Collection Type:: Clean-Voided Midstream Performed By: #### CUU, ADDONUAPLUS #### [place] [address] USAEosinophils Auto (Bld) [#/Vol]Ordered By: PROVIDER TEMP on 40-95-5318Cnxzcawpvek (Bld) [#/Vol]Automated eosinophil count0.0-0.45[facility] Hospital LimaEosinophils/100 WBC Auto (Bld)Ordered By: PROVIDER TEMP on 25-89-2367Wrbtaobdgaj/100 WBC (Bld)Automated eosinophil %.[facility] Hospital LimaEpithelial cells.squamous [#/area] in Urine sediment by Automated countOrdered By: PROVIDER TEMP on 35-88-3058Cwcrdqszhu cells.squamous Auto (Urine sed) [#/Area]Epithelial cells.squamous [#/area] in Urine sediment by Automated count0-2FHarrison Community HospitalErythrocyte distribution width Auto (RBC) [Ratio]Ordered By: PROVIDER TEMP on 43-15-2040Rlfgraeirrn distribution width (RBC) [Ratio]Erythrocyte distribution width [Ratio] by Automated cpzmxAbpt02.9-15.3FHarrison Community HospitalErythrocytes [#/area] in Urine sediment by Automated countOrdered By: PROVIDER TEMP on 66-73-7989QKO Auto (Urine sed) [#/Area]Erythrocytes [#/area] in Urine sediment by Automated count0-4FHarrison Community HospitalGlobulin Calc (S) [Mass/Vol]Ordered By: PROVIDER TEMP on 38-54-4368Kjuiuoxb (S) [Mass/Vol]Serum globulin measurement by calculation (mass/volume)[facility] Hospital LimaGlucose [Mass/volume] in Serum or PlasmaOrdered By: PROVIDER TEMP on 82-44-1924Kjrntxh [Mass/Vol]Glucose [Mass/volume] in Serum or Qtgwhe13-169 [facility] LimaComment on above:ADA recommended reference rangeRandom Glucose Reference Range is dependent on time and content of last meal. Glucose of more than 200 mg/dL in a nonstressed, ambulatory subject supports the diagnosisof Diabetes Mellitus.Glucose [Mass/volume] in Urine by Test stripOrdered By: PROVIDER TEMP on 16-21-7938Gasdbxq Test strip (U) [Mass/Vol]Glucose [Mass/volume] in Urine by Test stripNormalScci Hospital LimaHematocrit Auto (Bld) [Volume fraction]Ordered By: PROVIDER TEMP on 09-90-6359Onuifszjsh (Bld) [Volume fraction]Hematocrit [Volume Fraction] of Blood by Automated count34.0-46.4FHarrison Community HospitalHemoglobin Test strip Ql (U)Ordered By: PROVIDER TEMP on 16-62-2829Kqfqtxtbhh Ql (U) Hemoglobin [Presence] in Urine by Test stripHighNegativeScci Hospital LimaHemoglobin [Mass/volume] in BloodOrdered By: PROVIDER TEMP on 51-72-7171Hmzijaegyi (Bld) [Mass/Vol]Hemoglobin [Mass/volume] in BloodLow 11.8-15.4FHarrison Community HospitalHepatic Panelon 24-95-6528Lxznnwh [Mass/Vol]3.3 g/dLLow3.5-5.7The Counts Include [address] [facility] Physician GroupComment on above: Performed By: #### HEPATIC, CBC, LIPASE, BMP ####[place] [address] [place] [address] USAAlbumin/Globulin [Mass ratio]1.0 {ratio}NormalThe Counts Include [address] [facility] Physician GroupComment on above:Performed By: #### HEPATIC, CBC, LIPASE, BMP ####[place] [address] [place] [address] USAALP [Catalytic activity/Vol]132 U/FJfdl78-601Opu Moses Taylor HospitalComment on above:Performed By: #### HEPATIC, CBC, LIPASE, BMP ####[place] [address] [place] [address] USAALT [Catalytic activity/Vol]20 U/LNormal7-52The Counts Include [address] [facility] Physician [facility] Of GreenvilleComment on above:Performed By: #### HEPATIC, CBC, LIPASE, BMP ####[place] [address] [place] [address] USAAST [Catalytic activity/Vol]41 U/WCthw70-05Pce Moses Taylor HospitalComment on above: Performed By: #### HEPATIC, CBC, LIPASE, BMP ####[place] [address] [place] [address] USABilirubin [Mass/Vol]0.4 mg/dLNormal 0.3-1.0The Counts Include [address] [facility] Physician GroupComment on above:Performed By: #### HEPATIC, CBC, LIPASE, BMP ####[place] [address] [place] [address] USABilirubin,Indirect0.4 mg/dLNormalThe Counts Include [address] [facility] Physician [facility] Comment on above:Performed By: #### HEPATIC, CBC, LIPASE, BMP ####[address] [address] USABilirubin.indirect [Mass/Vol]0.00 mg/dLLow0.03-0.18The Counts Include [address] [facility] Physician GroupComment on above: Result Comment: If the DBIL is less than 0.1, IBIL is not able to be calculated.Performed By: #### HEPATIC, CBC, LIPASE, BMP ####[facility] [place] [address] USAGlobulin (S) [Mass/Vol]3.4 g/dLNormalThe Counts Include [address] [facility] Physician GroupComment on above:Performed By: #### HEPATIC, CBC, LIPASE, BMP ####[place] [address] [place] [id number] USAProtein [Mass/Vol]6.7 g/dLNormal6.4-8.9The Counts Include [address] [facility] Physician [facility] Of GreenvilleComment on above:Performed By: #### HEPATIC, CBC, LIPASE, BMP ####[facility] [place] [address] USAHyaline casts [#/area] in Urine sediment by Automated countOrdered By: PROVIDER TEMP on 99-60-8655Vznnugf casts Auto (Urine sed) [#/Area]Hyaline casts [#/area] in Urine sediment by Automated count0-8S[facility] Hospital LimaKetones Test strip Ql (U)Ordered By: PROVIDER TEMP on 77-80-4287Bnksfum Ql (U)Ketones [Presence] in Urine by Test stripNegativeScci Hospital Lima Lactate [Moles/volume] in Serum or PlasmaOrdered By: Guanako Vargas on 92-16-5805Wbkgxfx [Moles/Vol]Lactate [Moles/volume] in Serum or Plasma0.5-2.2 [facility] Hospital LimaLactic Acidon 90-68-0945Xigwsot [Moles/Vol]1.3 mmol/LNormal0.5-2.2The Counts Include [address] [facility] Physician [facility] Of GreenvilleComment on above:Result Comment: PERFORMED BY: [facility] [address] [place] [address] PATHOLOGIST RAG CUTTING MACHINE OPERATOR CON MURPHY M.D.Performed By: #### CUBLD, LACTIC #### [facility] [address] [place] [address] USALeukocyte esterase [Presence] in Urine by Test strip Ordered By: PROVIDER TEMP on 29-96-7517Bjgmpawap esterase Test strip Ql (U) Leukocyte esterase [Presence] in Urine by Test stripHighNegativeScci Hospital LimaLeukocytes [#/area] in Urine sediment by Automated count Ordered By: PROVIDER TEMP on 80-24-4992NMR Auto (Urine sed) [#/Area]Leukocytes [#/area] in Urine sediment by Automated countHigh0-4FHarrison Community HospitalLeukocytes [#/volume] corrected for nucleated erythrocytes in Blood by Automated counOrdered By: PROVIDER TEMP on 74-36-9858EPA corrected for nucl RBC Auto (Bld) [#/Vol]Leukocytes [#/volume] corrected for nucleated erythrocytes in Blood by Automated counLow3.8-11.6FHarrison Community HospitalLipaseon 42-48-5506Azgyed [Catalytic activity/Vol]30.0 U/GDnvkat33.0-82.0The Counts Include [address] [facility] Physician GroupComment on above:Result Comment: PERFORMED BY: [facility] [address] [place] [address] PATHOLOGIST RAG CUTTING MACHINE OPERATOR CON MURPHY M.D.Performed By: #### HEPATIC, CBC, LIPASE, BMP ####[facility] [place] [address] USALipase [Enzymatic activity/volume] in Serum or PlasmaOrdered By: PROVIDER TEMP on 81-85-9732Tplalb [Catalytic activity/Vol]Lipase [Enzymatic activity/volume] in Serum or Vsqvbl28.0-82.0[facility] Hospital LimaLymphocytes Auto (Bld) [#/Vol]Ordered By: PROVIDER TEMP on 72-18-7486Cjknzcozxgt (Bld) [#/Vol] Lymphocytes [#/volume] in Blood by Automated countLow1.00-4.8[facility] Hospital LimaLymphocytes/100 WBC Auto (Bld)Ordered By: PROVIDER TEMP on 41-58-7390Ycrkbifqxin/100 WBC (Bld)Lymphocytes/100 leukocytes in Blood by Automated count.[facility]cci Hospital LimaMCH Auto (RBC) [Entitic mass] Ordered By: PROVIDER TEMP on 63-18-4604YAJ (RBC) [Entitic mass]MCH [Entitic mass] by Automated count24.7-34.3FHarrison Community HospitalMCHC Auto (RBC) [Mass/Vol]Ordered By: PROVIDER TEMP on 94-42-5211UDOA (RBC) [Mass/Vol]MCHC [Mass/volume] by Automated count32.0-35.0[facility] Hospital LimaMCV Auto (RBC) [Entitic vol]Ordered By: PROVIDER TEMP on 20-31-1903ALG (RBC) [Entitic vol]MCV [Entitic volume] by Automated -132YecusrkskScci Hospital LimaMonocyte distribution width [Entitic volume] in Blood by Automated Ordered By: PROVIDER TEMP on 84-70-9274Zukcergj distribution width Auto (Bld) [Entitic vol]Monocyte distribution width [Entitic volume] in Blood by Automated High0.00-20.00Scci Hospital LimaComment on above:For adults in ED, MDW > 20.0 may be associated with a higher risk of sepsis during the first 12 hrs of hospital admissionMonocytes Auto (Bld) [#/Vol]Ordered By: PROVIDER TEMP on 30-14-2599Bxfgwjmcj (Bld) [#/Vol]Automated blood monocyte count0.0-0.8 [facility] LimaMonocytes/100 WBC Auto (Bld)Ordered By: PROVIDER TEMP on 02-06-8528Pwtlnhhuy/100 WBC (Bld)Automated monocyte %.[facility] Hospital LimaMucus [Presence] in Urine by AutomatedOrdered By: PROVIDER TEMP on 32-14-1489Nipid Auto Ql (U)Mucus [Presence] in Urine by AutomatedScci Hospital LimaNeutrophils Auto (Bld) [#/Vol]Ordered By: PROVIDER TEMP on 57-80-1988Vzjipxngcxm (Bld) [#/Vol]Neutrophils [#/volume] in Blood by Automated count1.8-7.7FHarrison [facility] Hospital Neutrophils/100 WBC Auto (Bld)Ordered By: PROVIDER TEMP on 04-06-2024 Neutrophils/100 WBC (Bld)Automated neutrophil %.[facility] Hospital LimaNitrite Test strip Ql (U)Ordered By: PROVIDER TEMP on 36-25-9161Vpzgorc Ql (U)Nitrite [Presence] in Urine by Test stripNegativeScci Hospital LimaNo Panel InformationOrdered By: PROVIDER TEMP on 67-29-4700Nqtitfdng GFR (CKD-EPI)31.843 mL/MinScci Hospital LimaPharmacy Creatinine Clearance (Chem30.77S[facility] Hospital LimaNucleated erythrocytes [Presence] in Blood by Automated countOrdered By: PROVIDER TEMP on 04-06-2024 Nucleated RBC Auto Ql (Bld)Nucleated erythrocytes [Presence] in Blood by Automated count0-0.5FHarrison Community HospitalPlatelet mean volume Auto (Bld) [Entitic vol]Ordered By: PROVIDER TEMP on 28-96-8798Tzcqivmx mean volume (Bld) [Entitic vol]Platelet mean volume [Entitic volume] in Blood by Automated count6.3-10.7FHarrison Community HospitalPlatelets Auto (Bld) [#/Vol] Ordered By: PROVIDER TEMP on 06-14-0371Rtrwnoswo (Bld) [#/Vol]Platelets [#/volume] in Blood by Automated wychm881-481KgcvwxrrzScci Hospital Lima Potassium [Moles/volume] in Serum or PlasmaOrdered By: PROVIDER TEMP on 29-93-3685Eicfxvpwb [Moles/Vol]Potassium [Moles/volume] in Serum or Plasma 3.5-5.1FHarrison Community HospitalProtein Test strip (U) [Mass/Vol]Ordered By: PROVIDER TEMP on 80-07-8240Gyjggeb (U) [Mass/Vol]Protein [Mass/volume] in Urine by Test stripHighNegMedina HospitalProtein [Mass/volume] in Serum or PlasmaOrdered By: PROVIDER TEMP on 07-44-6424Soagqol [Mass/Vol]Protein [Mass/volume] in Serum or Plasma6.4-8.9S[facility] Hospital LimaRBC Auto (Bld) [#/Vol]Ordered By: PROVIDER TEMP on 10-45-1503EQP (Bld) [#/Vol]Erythrocytes [#/volume] in Blood by Automated count3.60-5.00 [facility] Hospitalerum or plasma albumin/globulin mass ratio Ordered By: PROVIDER TEMP on 68-55-0305Uspzxio/Globulin [Mass ratio]Serum or plasma albumin/globulin mass ratioCleveland Clinic Mentor Hospitalerum or plasma anion gap determinationOrdered By: PROVIDER TEMP on 01-22-8599Qsnaz gap [Moles/Vol]Serum or plasma anion gap determination6.0-15.0[facility] Hospitalerum or plasma non-glucuronidated bilirubin measurement (mass/volume)Ordered By: PROVIDER TEMP on 19-73-4153Lhwtwwkqd.indirect [Mass/Vol]Serum or plasma non-glucuronidated bilirubin measurement (mass/volume) [facility] Hospitalodium [Moles/volume] in Serum or PlasmaOrdered By: PROVIDER TEMP on 51-01-1598Jeybhc [Moles/Vol]Sodium [Moles/volume] in Serum or Fqpiqa565-782YotzosyklCleveland Clinic Mentor Hospitalpecific gravity Test strip (U) [Rel density]Ordered By: PROVIDER TEMP on 96-90-1009Ukhhqnuu gravity (U) [Rel density]Specific gravity of Urine by Test strip1.001-1.030Scci Hospital LimaUrea nitrogen [Mass/volume] in Serum or PlasmaOrdered By: PROVIDER TEMP on 16-87-7637Oonq nitrogen [Mass/Vol]Urea nitrogen [Mass/volume] in Serum or Plasma7-25S[facility] Hospital LimaUrine Cultureon 80-73-3234Zoteaosr identified Cx Nom (U)<9,000 colonies/ml mixed bacterial skin contaminants 2 Days PERFORMED BY: [place] [address] PATHOLOGIST RAG CUTTING MACHINE OPERATOR CON MURPHY M.D.NormalThe Counts Include [address] [facility] Physician GroupComment on above: Performed By: #### NALLELYU, TABITHAONUAPLUS #### [place] [address] USAUrine cultureOrdered By: PROVIDER TEMP on 04-06-2024 Bacteria identified Cx Nom (U)Urine cultureScci Hospital Lima Urobilinogen Test strip (U) [Mass/Vol]Ordered By: PROVIDER TEMP on 04-06-2024 Urobilinogen (U) [Mass/Vol]Urobilinogen [Mass/volume] in Urine by Test strip NormalScci Hospital LimaWBC Auto (Bld) [#/Vol]Ordered By: PROVIDER TEMP on 51-75-8750IME (Bld) [#/Vol]Leukocytes [#/volume] in Blood by Automated countLow3.8-11.6FHarrison Community HospitalpH Test strip (U) Ordered By: PROVIDER TEMP on 54-47-3772sH (U)pH of Urine by Test strip5.0-9.0 [facility] LimaAlbumin [Mass/volume] in Serum or Plasma by Bromocresol green (BCG) dye binding methoOrdered By: Irina Cavanaugh on 03-30-2024 Albumin BCG dye [Mass/Vol]Albumin [Mass/volume] in Serum or Plasma by Bromocresol green (BCG) dye binding metho3.5-5.7FHarrison Community HospitalAppearance of UrineOrdered By: Irina Cavanaugh on 86-42-2792Mtdsnzvjtc (U) Urine appearanceCleGuernsey Memorial HospitalBacteria [Presence] in Urine by AutomatedOrdered By: Irina Cavanaugh on 41-25-6167Vktkbvkt Auto Ql (U) Bacteria [Presence] in Urine by AutomatedHighNone SeenScci Hospital LimaBilirubin Test strip Ql (U)Ordered By: Irina Cavanaugh on 37-74-7329Xcjjnonte Ql (U)Bilirubin.total [Presence] in Urine by Test stripNegativeScci Hospital LimaCalcium [Mass/volume] in Serum or PlasmaOrdered By: Irina Cavanaugh on 42-61-2382Yqlkwcf [Mass/Vol]Calcium [Mass/volume] in Serum or Plasma 8.6-10.3FHarrison Community HospitalCarbon dioxide, total [Moles/volume] in Serum or PlasmaOrdered By: Irina Cavanaugh on 31-83-3305SE8 [Moles/Vol]Carbon dioxide, total [Moles/volume] in Serum or Jmtwkl14.0-31.0S[facility] Hospital LimaChloride [Moles/volume] in Serum or PlasmaOrdered By: Irina Cavanaugh on 26-57-1399Puiephol [Moles/Vol]Chloride [Moles/volume] in Serum or Plasma 98-107S[facility] Hospital LimaColor Auto (U)Ordered By: Irina Cavanaugh on 09-01-7324Hptew (U)Color of Urine by AutoYellowScci Hospital Lima Creatinine [Mass/volume] in Serum or PlasmaOrdered By: Irina Cavanaugh on 03-30-2024 Creatinine [Mass/Vol]Creatinine [Mass/volume] in Serum or PlasmaHigh0.60-1.20 [facility] LimaCreatinine [Mass/volume] in UrineOrdered By: Irina Cavanaugh on 53-29-9640Cenohshovc (U) [Mass/Vol]Creatinine [Mass/volume] in UrineScci Hospital LimaComment on above:No reference range establishedDipstick and Microscopicon 40-34-5913Cqfufgywfj (U)ClearNormalClear The Counts Include [facility] Physician GroupComment on above:Order Comment: Name Collection Type:: Clean-Voided MidstreamPerformed By: #### ADDONUAPLUS, PROCRERAT, CUU ####[place] [id number] [place] Bacteria,Urine1+HighNone SeenThe Counts Include [address] [facility] Physician GroupComment on above:Order Comment: Name Collection Type:: Clean-Voided MidstreamPerformed By: #### ADDONUAPLUS, PROCRERAT, CUU ####[address] [address] USABilirubin,UrineNegativeNormalNegativePalm Bay Community Hospital Physician GroupComment on above:Order Comment: Name Collection Type:: Clean- Voided MidstreamPerformed By: #### ADDONUAPLUS, PROCRERAT, CUU ####[address] [address] USAColor (U)Light-Yellow NormalYellowPalm Bay Community Hospital Physician GroupComment on above:Order Comment: Name Collection Type:: Clean-Voided MidstreamPerformed By: #### ADDONUAPLUS, PROCRERAT, CUU ####[address] [address] USAGlucose Ql (U)NormalNormalNormalThe Counts Include 234 [facility] Physician GroupComment on above:Order Comment: Name Collection Type:: Clean-Voided MidstreamPerformed By: #### ADDONUAPLUS, PROCRERAT, CUU ####[place] [address] [place] [address] USAHyaline Casts,Urine0 [LPF]Normal0-8The Counts Include 234 [facility] Physician GroupComment on above:Order Comment: Name Collection Type:: Clean- Voided MidstreamPerformed By: #### ADDONUAPLUS, PROCRERAT, CUU ####[address] [address] USAKetones Ql (U) NegativeNormalNegativeThe Counts Include 234 [facility] Physician GroupComment on above:Order Comment: Name Collection Type:: Clean-Voided MidstreamPerformed By: #### ADDONUAPLUS, PROCRERAT, CUU ####[address] [address] USALeukocyte esterase Test strip Ql (U)3+HighNegative The Counts Include 234 [facility] Physician GroupComment on above:Order Comment: Name Collection Type:: Clean-Voided MidstreamPerformed By: #### ADDONUAPLUS, PROCRERAT, CUU ####[address] [address] [place] Mucus,UrineRareNormalThe Counts Include 234 [facility] Physician GroupComment on above:Order Comment: Name Collection Type:: Clean-Voided MidstreamResult Comment: PERFORMED BY: [facility] [address]ark[address] [place] [id number] PATHOLOGIST RAG CUTTING MACHINE OPERATOR SALUD MIRANDA M.D.Performed By: #### ADDONUAPLUS, PROCRERAT, CUU ####[address] [address] USANitrite,UrineNegative NormalNegativeThe Counts Include 234 [facility] Physician GroupComment on above:Order Comment: Name Collection Type:: Clean-Voided MidstreamPerformed By: #### ADDONUAPLUS, PROCRERAT, CUU ####[address] [address] USAOccult Blood,UrineNegativeNormalNegativeThe Counts Include 234 [facility]ician Group Comment on above:Order Comment: Name Collection Type:: Clean-Voided Midstream Performed By: #### ADDONUAPLUS, PROCRERAT, CUU ####[address] [address] USApH (U)5.0 [pH]Normal5.0-9.0The Counts Include 234 [facility] Physician GroupComment on above:Order Comment: Name Collection Type:: Clean-Voided MidstreamPerformed By: #### ADDONUAPLUS, PROCRERAT, CUU ####[address] [address] [place] Protein,UrineNegativeNormalNegativeThe Counts Include 234 [facility] Physician GroupComment on above:Order Comment: Name Collection Type:: Clean-Voided MidstreamPerformed By: #### ADDONUAPLUS, PROCRERAT, CUU ####[address] [address] USARBC,Urine1 [HPF]Normal0-4The Counts Include 234 [facility] Physician GroupComment on above:Order Comment: Name Collection Type:: Clean-Voided MidstreamPerformed By: #### ADDONUAPLUS, PROCRERAT, CUU ####[address] [address] USASpecificy Rangely,Urine1.014 Normal1.001-1.030The Counts Include 234 [facility] Physician GroupComment on above:Order Comment: Name Collection Type:: Clean-Voided MidstreamPerformed By: #### ADDONUAPLUS, PROCRERAT, CUU ####[address] [address] USASquamous Epithelial Cell,Urine1 [HPF]Normal0-2The Counts Include 234 [facility] Physician GroupComment on above:Order Comment: Name Collection Type:: Clean-Voided MidstreamPerformed By: #### ADDONUAPLUS, PROCRERAT, CUU ####[address] [address] USAUrobilinogen,UrineNormalNormal NormalThe Counts Include 234 [facility] Physician GroupComment on above:Order Comment: Name Collection Type:: Clean-Voided MidstreamPerformed By: #### ADDONUAPLUS, PROCRERAT, CUU ####[address] [place] [address] USAWBC CLUMP, UrineManyHighNone SeenThe Counts Include 234 [facility] Physician GroupComment on above:Order Comment: Name Collection Type:: Clean-Voided MidstreamPerformed By: #### ADDONUAPLUS, PROCRERAT, CUU ####[address] [address] USAWBC,Urine20 [HPF]High0-4The Counts Include 234 [facility] Physician GroupComment on above:Order Comment: Name Collection Type:: Clean- Voided MidstreamPerformed By: #### ADDONUAPLUS, PROCRERAT, CUU ####[place] [id number] USAEpithelial cells.squamous [#/area] in Urine sediment by Automated countOrdered By: Irina Cavanaugh on 74-42-8232Rtapajdrqt cells.squamous Auto (Urine sed) [#/Area]Epithelial cells.squamous [#/area] in Urine sediment by Automated count0-2FHarrison Community HospitalErythrocyte distribution width Auto (RBC) [Ratio]Ordered By: Irina Cavanaugh on 55-10-1557Hcufzvskjvn distribution width (RBC) [Ratio] Erythrocyte distribution width [Ratio] by Automated count11.9-15.3FHarrison Community HospitalErythrocytes [#/area] in Urine sediment by Automated countOrdered By: Irina Cavanaugh on 17-78-6395URR Auto (Urine sed) [#/Area] Erythrocytes [#/area] in Urine sediment by Automated count0-4FHarrison Community HospitalFerritinon 98-85-2870Jhbfaohg [Mass/Vol]4.8 ng/mLLow11.0-306.8The Counts Include 234 [facility] Physician GroupComment on above:Performed By: #### MG, [id number], URIC, PTH, CBCNO, RENAL, FE and TIBC, SANTOS ####[address] [address] USAFerritin [Mass/volume] in Serum or Plasma Ordered By: Irina Cavanaugh on 30-85-1115Qjrgvtxr [Mass/Vol]Ferritin [Mass/volume] in Serum or WyyjsgOyv81.0-306.8S[facility] Hospital LimaGlucose [Mass/volume] in Serum or PlasmaOrdered By: Irina Cavanaugh on 78-52-3461Omlflwq [Mass/Vol]Glucose [Mass/volume] in Serum or Tpcsod12-856SscbkivilScci Hospital LimaComment on above:ADA recommended reference rangeRandom Glucose Reference Range is dependent on time and content of last meal. Glucose of more than 200 mg/dL in a nonstressed, ambulatory subject supports the diagnosisof Diabetes Mellitus.Glucose [Mass/volume] in Urine by Test stripOrdered By: Irina Cavanaugh on 80-94-7871Hslmobh Test strip (U) [Mass/Vol]Glucose [Mass/volume] in Urine by Test stripNormalScci Hospital LimaHematocrit Auto (Bld) [Volume fraction]Ordered By: Irina Cavanaugh on 67-29-6920Exzipgrshi (Bld) [Volume fraction]Hematocrit [Volume Fraction] of Blood by Automated count34.0-46.4 [facility] Hospital LimaHemoglobin Test strip Ql (U)Ordered By: Irina Cavanaugh on 36-96-6871Jvezyhahny Ql (U)Hemoglobin [Presence] in Urine by Test strip NegativeScci Hospital LimaHemoglobin [Mass/volume] in Blood Ordered By: Irina Cavanaugh on 44-78-8849Bwmtewoqcu (Bld) [Mass/Vol]Hemoglobin [Mass/volume] in IlhhaSkl24.8-15.4FHarrison Community HospitalHemogram CBC Without Diffon 30-22-5001Aqprqqrnvby distribution width (RBC) [Ratio]14.5 % Ugpfpt51.9-15.3The Counts Include 234 [facility] Physician GroupComment on above:Performed By: #### MG, [id number], URIC, PTH, CBCNO, RENAL, FE and TIBC, SANTOS ####[facility] [place] [address] USAHematocrit (Bld) [Volume fraction]35.0 %Yphjgf43.0-46.4The Counts Include 234 [facility] Physician GroupComment on above: Performed By: #### MG, [id number], URIC, PTH, CBCNO, RENAL, FE and TIBC, SANTOS ####[facility] [place] [address] RUST Hemoglobin (Bld) [Mass/Vol]11.2 g/dLLow11.8-15.4The Counts Include [address] [facility] Comment on above:Performed By: #### MG, [id number], URIC, PTH, CBCNO, RENAL, FE and TIBC, SANTOS ####[address] [address] [facility]H (RBC) [Entitic mass]26.9 joEdxgdf29.7-34.3The Counts Include 234 [facility] Physician GroupComment on above:Performed By: #### MG, [id number], URIC, PTH, CBCNO, RENAL, FE and TIBC, SANTOS ####[address] [address] [facility] CITYV (RBC) [Entitic vol]84.0 cZLqhrsa04-582Jlq Counts Include [address] [facility] Comment on above:Performed By: #### MG, [id number], URIC, PTH, CBCNO, RENAL, FE and TIBC, SANTOS ####[address] [address] USAMean Corpuscular HGB Conc32.0 g/oNCirptc67.0-35.0The Counts Include [address] [facility] Physician GroupComment on above:Performed By: #### MG, [id number], URIC, PTH, CBCNO, RENAL, FE and TIBC, SANTOS ####[address] [address] USAPlatelet mean volume (Bld) [Entitic vol]7.0 fLNormal 6.3-10.7The Counts Include 234 [facility] Physician GroupComment on above:Result Comment: PERFORMED BY: [facility] [address] [place] [id number] PATHOLOGIST RAG CUTTING MACHINE OPERATOR SALUD MIRANDA M.D.Performed By: #### MG, [id number], URIC, PTH, CBCNO, RENAL, FE and TIBC, SANTOS ####[address] [address] USAPlatelets (Bld) [#/Vol]313 10*3/vQQvtbdu007-389Fwg Counts Include [address] [facility] Comment on above:Performed By: #### MG, [id number], URIC, PTH, CBCNO, RENAL, FE and TIBC, SANTOS ####[place] [address] [place] [address] USARBC (Bld) [#/Vol]4.17 10*6/uLNormal3.60-5.00The Counts Include 234 [facility] Physician GroupComment on above:Performed By: #### MG, [id number], URIC, PTH, CBCNO, RENAL, FE and TIBC, SANTOS ####[address] [address] USAWBC (Bld) [#/Vol]5.9 10*3/uLNormal3.8-11.6The Counts Include [address] [facility] Physician GroupComment on above:Performed By: #### MG, [id number], URIC, PTH, CBCNO, RENAL, FE and TIBC, SANTOS ####[address] [address] USAHyaline casts [#/area] in Urine sediment by Automated countOrdered By: Irina Cavanaugh on 88-17-3581Uiuwjbc casts Auto (Urine sed) [#/Area]Hyaline casts [#/area] in Urine sediment by Automated count0-8[facility] Hospital LimaIron [Mass/volume] in Serum or PlasmaOrdered By: Irina Cavanaugh on 03-30-2024 Iron [Mass/Vol]Iron [Mass/volume] in Serum or EcctmcHwk69-602MseuoxxbvScci Hospital LimaIron and TIBC Profileon 03-30-2024% Iron Saturation3.4 %Oqj25-69 The Counts Include 234 [facility] Physician GroupComment on above:Performed By: #### MG, [id number], URIC, PTH, CBCNO, RENAL, FE and TIBC, SANTOS ####[place] [address] [place] [address] USAIron [Mass/Vol]18 ug/uHXgc92-326Fcp [facility] Physician GroupComment on above:Performed By: #### MG, [id number], URIC, PTH, CBCNO, RENAL, FE and TIBC, SANTOS ####[place] [address] [place] [address] USATotal Iron Binding Lshqrkss579 ug/pTSrat862-247Ewb [facility] Physician GroupComment on above:Performed By: #### MG, [id number], URIC, PTH, CBCNO, RENAL, FE and TIBC, SANTOS ####[facility] [address] [place] [address] USATransferrin [Mass/Vol]378 mg/bNUbgc343-587Wrg Counts Include 234 [facility] Physician GroupComment on above:Performed By: #### MG, [id number], URIC, PTH, CBCNO, RENAL, FE and TIBC, SANTOS ####[facility] [address] [place] [address] USAKetones Test strip Ql (U)Ordered By: Irina Cavanaugh on 96-00-7273Pnsxgze Ql (U)Ketones [Presence] in Urine by Test strip NegativeScci Hospital LimaLeukocyte clumps [Presence] in Urine by AutomatedOrdered By: Irina Cavanaugh on 99-59-3248Shijxrxui clumps Auto Ql (U) Leukocyte clumps [Presence] in Urine by AutomatedMan Appalachian Regional Hospitale SeenScci Hospital LimaLeukocyte esterase [Presence] in Urine by Test stripOrdered By: Irina Cavanaugh on 39-26-4893Thzbbirrh esterase Test strip Ql (U)Leukocyte esterase [Presence] in Urine by Test stripHealthsouth Rehabilitation HospitalNegMedina Hospital Leukocytes [#/area] in Urine sediment by Automated countOrdered By: Irina Cavanaugh on 76-63-4777VJO Auto (Urine sed) [#/Area]Leukocytes [#/area] in Urine sediment by Automated countHealthsouth Rehabilitation Hospital04FHarrison Community HospitalLeukocytes [#/volume] corrected for nucleated erythrocytes in Blood by Automated counOrdered By: Irina Cavanaugh on 11-98-2563RTO corrected for nucl RBC Auto (Bld) [#/Vol]Leukocytes [#/volume] corrected for nucleated erythrocytes in Blood by Automated coun 3.8-11.6FUniversity Hospitals TriPoint Medical Center Auto (RBC) [Entitic mass]Ordered By: Irina Cavanaugh on 65-05-3322APS (RBC) [Entitic mass]MCH [Entitic mass] by Automated count24.7-34.3FHarrison Community HospitalMCHC Auto (RBC) [Mass/Vol]Ordered By: Irina Cavanaugh on 59-23-7850OPFP (RBC) [Mass/Vol]MCHC [Mass/volume] by Automated count32.0-35.0Scci Hospital LimaMCV Auto (RBC) [Entitic vol]Ordered By: Irina Cavanaugh on 06-93-5715MNV (RBC) [Entitic vol]MCV [Entitic volume] by Automated -693IanhrdszfScci Hospital LimaMagnesiumon 82-59-7383Xvclkbwwi [Mass/Vol]2.2 mg/dLNormal1.9-2.7The Counts Include [address] [facility] Physician GroupComment on above:Performed By: #### MG, [id number], URIC, PTH, CBCNO, RENAL, FE and TIBC, SANTOS ####[facility] [address] [place] [address] USAMagnesium [Mass/volume] in Serum or Plasma Ordered By: Irina Cavanaugh on 50-43-8571Louzmliep [Mass/Vol]Magnesium [Mass/volume] in Serum or Plasma1.9-2.7FHarrison Community HospitalMucus [Presence] in Urine by AutomatedOrdered By: Irina Cavanaugh on 03-04-1508Xusnm Auto Ql (U)Mucus [Presence] in Urine by AutomatedScci Hospital LimaNitrite Test strip Ql (U)Ordered By: Irina Cavanaugh on 41-15-5033Adxgozs Ql (U)Nitrite [Presence] in Urine by Test stripNegativeScci Hospital LimaNo Panel InformationOrdered By: Irina Cavanaugh on 36-98-7347Fjgfeugwd GFR (CKD-EPI) 25.059 mL/MinScci Hospital LimaPharmacy Creatinine Clearance (ChemN/[facility] Medical CenterParathyrin.intact [Mass/volume] in Serum or PlasmaOrdered By: Irina Cavanaugh on 65-28-6810Emotffsdlx.intact [Mass/Vol] Parathyrin.intact [Mass/volume] in Serum or FfeaoxTybx35-53VqqkocprqScci Hospital LimaParathyroid Hormone Intacton 82-75-5811Mcjxftaujjl Hormone Intact 428.1 pg/jWRfns92-92Yia [facility] Physician GroupComment on above:Result Comment: PERFORMED BY: [facility] [address] [place] [id number] PATHOLOGIST RAG CUTTING MACHINE OPERATOR SALUD MIRANDA M.D.Performed By: #### MG, [id number], URIC, PTH, CBCNO, RENAL, FE and TIBC, SANTOS ####[facility] [address] [place] [id number] USAPhosphate [Mass/volume] in Serum or PlasmaOrdered By: Irina Martinezr on 51-48-2701Ionnnmpby [Mass/Vol]Phosphate [Mass/volume] in Serum or Plasma2.5-4.5 [facility] Hospital LimaPlatelet mean volume Auto (Bld) [Entitic vol] Ordered By: Irina Guerradir on 95-46-5936Zcrpsuki mean volume (Bld) [Entitic vol] Platelet mean volume [Entitic volume] in Blood by Automated count6.3-10.7 [facility] Hospital LimaPlatelets Auto (Bld) [#/Vol]Ordered By: Irina Mao on 37-29-3448Lvcpqjbjw (Bld) [#/Vol]Platelets [#/volume] in Blood by Automated eeauv723-892QynclolfdScci Hospital LimaPotassium [Moles/volume] in Serum or PlasmaOrdered By: Irina Martinezr on 11-06-3713Chemgnoiy [Moles/Vol] Potassium [Moles/volume] in Serum or Plasma3.5-5.1FHarrison Community HospitalProtein Creat Ratio Ur Randomon 00-05-2396Yiarnduiwy, Urine (Random)96.00 mg/dLNormalThe Counts Include [address] [facility] Physician GroupComment on above:Result Comment: No reference range establishedPerformed By: #### PORSHA WALLACE CUU ####[facility] [address] [place] [address] USAProtein (U) [Mass/Vol]12 mg/dLHigh0-9[facility] Physician GroupComment on above: Performed By: #### PORSHA WALLACE CUU ####[facility] [place] [address] USAUrine Protein/Creatinine Giius186 mg/g{Cre}Normal0-200The Counts Include 234 [facility] Physician GroupComment on above:Result Comment: PERFORMED BY: [facility] [address] [place] [address] PATHOLOGIST RAG CUTTING MACHINE OPERATOR SALUD MIRANDA M.D.Performed By: #### ANJANA WALLACEREALEXANDRA, CUU ####[place] [place] [address] USAProtein Test strip (U) [Mass/Vol]Ordered By: Irina Cavanaugh on 72-42-9855Albavuq (U) [Mass/Vol]Protein [Mass/volume] in Urine by Test stripNegativeScci Hospital Lima Protein [Mass/volume] in UrineOrdered By: Irina Mao on 70-14-8526Yxayoyq (U) [Mass/Vol]Protein [Mass/volume] in UrineHigh0-9[facility] RBC Auto (Bld) [#/Vol]Ordered By: Irina Mao on 37-38-6299YGB (Bld) [#/Vol] Erythrocytes [#/volume] in Blood by Automated count3.60-5.00Scci Hospital LimaRenal Function Panelon 80-90-0474Arhufhj [Mass/Vol]4.1 g/dLNormal 3.5-5.7The Counts Include 234 [facility] Physician GroupComment on above:Performed By: #### MG, [id number], URIC, PTH, CBCNO, RENAL, FE and TIBC, SANTOS ####[facility] dical [address] [place] [address] USAAnion gap [Moles/Vol]9.4 mmol/L Normal6.0-15.0The Counts Include [facility] Physician GroupComment on above:Performed By: #### MG, [id number], URIC, PTH, CBCNO, RENAL, FE and TIBC, SANTOS ####[address] [address] USACalcium [Mass/Vol]9.1 mg/dL Normal8.6-10.3The Counts Include [facility] Physician GroupComment on above:Performed By: #### MG, [id number], URIC, PTH, CBCNO, RENAL, FE and TIBC, SANTOS ####[address] [place] [address] USAChloride [Moles/Vol]105 mmol/L Gzfnhh27-836Xiw Counts Include [facility] Physician [facility] Of GreenvilleComment on above:Performed By: #### MG, [id number], URIC, PTH, CBCNO, RENAL, FE and TIBC, SANTOS ####[facility] dicpa [address] [place] [address] USACO2 [Moles/Vol]28.5 mmol/LNormal 21.0-31.0The Counts Include [facility] Physician GroupComment on above:Performed By: #### MG, [id number], URIC, PTH, CBCNO, RENAL, FE and TIBC, SANTOS ####[address] [address] USACreatinine [Mass/Vol]2.21 mg/dL High0.60-1.20The Counts Include [facility] Physician [facility] Of GreenvilleComment on above:Performed By: #### MG, [id number], URIC, PTH, CBCNO, RENAL, FE and TIBC, SANTOS ####[address] [address] USAGFR/1.73 sq M.predicted MDRD (S/P/Bld) [Vol rate/Area]25.059 mL/min/{1.73_m2}NormalThe Counts Include [facility] Physician GroupComment on above:Performed By: #### MG, [id number], URIC, PTH, CBCNO, RENAL, FE and TIBC, SANTOS ####[address] [place] [address] USAGlucose [Mass/Vol]85 mg/hUJutuvz24-076Gta Counts Include [facility]ician Group Comment on above:Result Comment: Random Glucose Reference Range is dependent on time and content of last meal. Glucose of more than 200 mg/dL in a nonstressed, ambulatory subject supports the diagnosis of Diabetes Mellitus. ADA recommended reference rangePerformed By: #### MG, [id number], URIC, PTH, CBCNO, RENAL, FE and TIBC, SANTOS ####[address] [place] [address] USAPhosphate [Mass/Vol]4.5 mg/dLNormal2.5-4.5The Counts Include [address] [facility] Physician GroupComment on above:Performed By: #### MG, [id number], URIC, PTH, CBCNO, RENAL, FE and TIBC, SANTOS ####[address] [place] [address] USAPotassium [Moles/Vol]3.9 mmol/LNormal3.5-5.1 The Counts Include [address] [facility] Physician GroupComment on above:Performed By: #### MG, [id number], URIC, PTH, CBCNO, RENAL, FE and TIBC, SANTOS ####[address] [place] [address] USASodium [Moles/Vol]139 mmol/PVmrgto512-970Pnu Counts Include [address] [facility] Physician GroupComment on above:Performed By: #### MG, [id number], URIC, PTH, CBCNO, RENAL, FE and TIBC, SANTOS ####[address] [place] [address] USAUrea nitrogen [Mass/Vol]30 mg/dLHigh7-25The Counts Include [address] [facility] Physician GroupComment on above:Performed By: #### MG, [id number], URIC, PTH, CBCNO, RENAL, FE and TIBC, SANTOS ####[address] [address] USASerum or plasma anion gap determinationOrdered By: Irina Cavanaugh on 67-45-0905Qpgtw gap [Moles/Vol]Serum or plasma anion gap determination6.0-15.0[facility] Ment[facility] Hospitalerum or plasma iron binding capacity measurement (mass/volume)Ordered By: Irina Cavanaugh on 03-30-2024 Iron binding capacity [Mass/Vol]Iron binding capacity [Mass/volume] in Serum or HohyoeLswv138-263CixjpiaelCleveland Clinic Mentor Hospitalerum or plasma iron saturation measurement (mass fraction)Ordered By: Irina Cavanaugh on 67-07-0114Kugl saturation [Mass fraction]Iron saturation [Mass Fraction] in Serum or PlasmaLow 20-50[facility] Mentor Hospitalodium [Moles/volume] in Serum or Plasma Ordered By: Irina Cavanaugh on 87-96-2106Fnlian [Moles/Vol]Sodium [Moles/volume] in Serum or Dhemmr436-763KtaovmzslCleveland Clinic Mentor Hospitalpecific gravity Test strip (U) [Rel density]Ordered By: Irina Cavanaugh on 49-98-0779Cmnruojr gravity (U) [Rel density]Specific gravity of Urine by Test strip1.001-1.030Scci Hospital LimaTransferrin [Mass/volume] in Serum or PlasmaOrdered By: Irina Cavanaugh on 86-52-2796Upvxattzvhf [Mass/Vol]Transferrin [Mass/volume] in Serum or PpuejmTtib477-430PjgnrruhsScci Hospital LimaUrate [Mass/volume] in Serum or PlasmaOrdered By: Irina Cavanaugh on 80-82-5442Vtdvh [Mass/Vol]Urate [Mass/volume] in Serum or PlasmaHigh2.3-6.6FHarrison Community HospitalUrea nitrogen [Mass/volume] in Serum or PlasmaOrdered By: Irina Cavanaugh on 03-30-2024 Urea nitrogen [Mass/Vol]Urea nitrogen [Mass/volume] in Serum or PlasmaHigh7-25 [facility] Hospital LimaUric Acidon 60-72-1798Dspgc [Mass/Vol]6.7 mg/dL High2.3-6.6The Counts Include [address] [facility] Physician GroupComment on above:Performed By: #### MG, [id number], URIC, PTH, CBCNO, RENAL, FE and TIBC, SANTOS ####[facility] dical [address] [place] [address] RUSTUrine Cultureon 03-30-2024 Bacteria identified Cx Nom (U)ORGANISM: Escherichia coli (O:ESCCOL) [place] Count >100,000 Aerobic RAVINDER Charge (NMIC56) SUSCEPTIBILITY ORGANISM: O:ESCCOL ANTIBIOTIC INTERPRETATION RAVINDER Amikacin S <16 Amoxacillin/K Clavulanate S <8 Ampicillin S <8 Ampicillin/Sulbactam S <4 Aztreonam S <4 Cefazolin S <2 Cefepime S <2 Ceftazidime S <1 Ceftazidime/Avibactam S <4 Ceftolozane/Tazobactam S <2 Ceftriaxone S <1 Cefuroxime S <4 Ciprofloxacin S <0.25 Ertapenem S <0.5 Gentamicin S <2 Levofloxacin S <0.5 Meropenem S <1 Meropenem/Vaborbactam S <2 Nitrofurantoin S <32 Piperacillin/Tazobactam S <8 Tetracycline S <4 Tigecycline S <2 Tobramycin S <2 Trimethoprim/Sulfamethoxazole S <0.5 S = SUSCEPTIBLE I = INTERMEDIATE R = RESISTANT BLANK = DATA NOT AVAILABLE, OR DRUG NOT ADVISABLE OR TESTED R* = RESISTANCE DUE TO EXTENDED SPECTRUM BETA-LACTAMASES ESBL = EXTENDED SPECTRUM BETA-LACTAMASE TFG = THYMIDINE-DEPENDENT STRAIN GLORIA = BETA-LACTAMASE POSITIVE IB = INDUCIBLE BETA-LACTAMASE. APPEARS IN PLACE OF 'S' WITH SPECIES KNOWN TO POSSESS INDUCIBLE BETA-LACTAMASES. POTENTIALLY THEY MAY BECOME RESISTANT TO ALL B-LACTAM DRUGS. PERFORMED BY: [facility] [address] [place] [address] PATHOLOGIST RAG CUTTING MACHINE OPERATOR SALUD MIRANDA M.D.[facility] Physician GroupComment on above:Performed By: #### RODRIGO, PROCRERAT, NALLELYU ####[facility] [address]h[address] Humph[address] StreetUrine cultureOrdered By: Irina Cavanaugh on 53-57-4679Hizdgzkw identified Cx Nom (U)Escherichia coliAbnoOhioHealth Marion General HospitalUrine protein/creatinine ratioOrdered By: Irina Cavanaugh on 34-02-5249Qqqvnvr/Creatinine (U) [Ratio]Urine protein/creatinine ratio0-200 [facility] Hospital LimaUrobilinogen Test strip (U) [Mass/Vol]Ordered By: Irina Cavanaugh on 91-35-8984Oogtbffozfeu (U) [Mass/Vol]Urobilinogen [Mass/volume] in Urine by Test stripGlenbeigh Hospital Vitamin D 25 Hydroxy Totalon 72-67-3798Skebojs D 25 Hydroxy Total22.9 ng/mLLow 30-100The Counts Include [address] [facility] Physician GroupComment on above:Result Comment: VITAMIN D STATUS 25(OH)VITAMIN D RANGE (ng/mL) Deficient <20 Insufficient 20 to <30 Sufficient 30 to 100 Reference: Celeste Goodwin, Rena DENIS et al. Evaluation,treatment, and prevention of vitamin D deficiency; an Endocrine Society clinical practice guideline. JCEM. 2010; 96(7):1911-30. PERFORMED BY: [facility] [address] [place] [address] PATHOLOGIST RAG CUTTING MACHINE OPERATOR SALUD MIRANDA M.D.Performed By: #### MG, [id number], URIC, PTH, CBCNO, RENAL, FE and TIBC, SANTOS ####[facility] [address] [place] [address] RUSTVitamin D+Metabolites [Mass/volume] in Serum or PlasmaOrdered By: Irina Cavanaugh on 26-27-5141Dssaaub D+Metabolites [Mass/Vol]Vitamin D+Metabolites [Mass/volume] in Serum or YuawdpQwu95-735YbqnqkybkScci Hospital Lima Comment on above:VITAMIN D STATUS 25(OH)VITAMIN D RANGE (ng/mL) Deficient <20 Insufficient 20 to <67Cvextaskcd83 to 100Reference: Celeste Goodwin, Rena DENIS, et al. Evaluation,treatment, and prevention of vitamin D deficiency; an Endocrine Society clinical practice guideline. JCEM. 2010; 96 (7):1911-30.pH Test strip (U)Ordered By: Irina Cavanaugh on 49-46-9118eO (U)pH of Urine by Test strip5.0-9.0[facility] Hospital LimaAlbumin [Mass/volume] in Serum or Plasma by Bromocresol green (BCG) dye binding methoOrdered By: Irina Cavanaugh on 67-26-2843Drwxujm BCG dye [Mass/Vol]3.8 g/dL3.5-5.7FHarrison Community HospitalAutomated epithelial cells count in urine sediment (number/area)Ordered By: Irina Cavanaugh on 79-02-0457Dulsnkcqss cells Auto (Urine sed) [#/Area]0-1 [HPF]0-2FHarrison Community HospitalBacteria [Presence] in Urine by AutomatedOrdered By: Irina Cavanaugh on 19-38-1167Xvagstgn Auto Ql (U)None seen [HPF]None SeenScci Hospital LimaBilirubin Test strip Ql (U) Ordered By: Irina Cavanaugh on 87-17-0790Fgrerjvhf Ql (U)NegativeNegativeScci Hospital LimaCalcium [Mass/volume] in Serum or PlasmaOrdered By: Irina Cavanaugh on 26-91-9500Klyqjqk [Mass/Vol]9.4 mg/dLNormal8.6-10.3FHarrison Community HospitalComment on above:Performed By: #### CUBLD, LACTIC #### [facility] [address] [place] [address] USACarbon dioxide, total [Moles/volume] in Serum or Plasma Ordered By: Irina Cavanaugh on 14-21-9699RY5 [Moles/Vol]29.1 mmol/UIwmdmx44.0-31.0 [facility] LimaComment on above:Performed By: #### CUBLD, LACTIC #### [facility] [address] [place] [address] USAChloride [Moles/volume] in Serum or PlasmaOrdered By: Irina Cavanaugh on 31-12-6810Nfurrlig [Moles/Vol]108 mmol/HGroq78-605TgxxrfaohScci Hospital LimaComment on above:Performed By: #### CUBLD, LACTIC #### [facility] [address] [place] [id number] USAColor of Urine by AutoOrdered By: Irina Cavanaugh on 46-26-3311Huiot (U)YellowNormalYellowScci Hospital LimaComment on above:Order Comment: Name Collection Type:: Clean-Voided MidstreamPerformed By: #### CUBLD, LACTIC #### [facility] [address] [place] [address] USACreatinine [Mass/volume] in Serum or PlasmaOrdered By: Irina Cavanaugh on 38-43-1396Qjgtmsetbf [Mass/Vol]1.84 mg/dLHigh0.60-1.20[facility] Hospital LimaComment on above:Performed By: #### CUBLD, LACTIC #### [place] [address] USACreatinine [Mass/volume] in UrineOrdered By: Irina Cavanaugh on 09-10-7876Cecfhsgruy (U) [Mass/Vol]73.00 mg/dLScci Hospital LimaComment on above:No reference range establishedDipstick and Microscopicon 41-35-4600Qndwjdljus (U)ClearNormalClearThe Counts Include [address] [facility] Physician GroupComment on above:Order Comment: Name Collection Type:: Clean-Voided MidstreamPerformed By: #### CUBLD, LACTIC #### [place] [address] USABacteria,UrineNone SeenNormalNone SeenThe Counts Include [address] [facility] Physician GroupComment on above:Order Comment: Name Collection Type:: Clean- Voided MidstreamPerformed By: #### CUBLD, LACTIC #### [place] [address] USABilirubin,UrineNegativeNormalNegativeThe Counts Include [address] [facility] Physician GroupComment on above:Order Comment: Name Collection Type:: Clean- Voided MidstreamPerformed By: #### CUBLD, LACTIC #### [place] [address] USAGlucose Ql (U)NormalNormalNormalThe Counts Include [address] [facility] Physician GroupComment on above:Order Comment: Name Collection Type:: Clean-Voided MidstreamPerformed By: #### CUBLD, LACTIC #### [place] [address] USAHyaline Casts,Ppawj7-0Lrcqae4-6Xwg Counts Include [address] [facility] Physician GroupComment on above:Order Comment: Name Collection Type:: Clean-Voided MidstreamResult Comment: PERFORMED BY: [place] [address] PATHOLOGIST RAG CUTTING MACHINE OPERATOR SALUD MIRANDA M.D.Performed By: #### CUBLD, LACTIC #### [place] [address] USAKetones Ql (U)NegativeNormalNegativeThe Counts Include [address] [facility] Physician GroupComment on above:Order Comment: Name Collection Type:: Clean- Voided MidstreamPerformed By: #### CUBLD, LACTIC #### [place] [address] USALeukocyte esterase Test strip Ql (U)2+HighNegativeThe Counts Include [address] [facility] Physician GroupComment on above:Order Comment: Name Collection Type:: Clean-Voided MidstreamPerformed By: #### CUBLD, LACTIC #### [place] [address] USANitrite,UrineNegativeNormalNegativeThe Counts Include [address] [facility] Physician GroupComment on above:Order Comment: Name Collection Type:: Clean-Voided MidstreamPerformed By: #### CUBLD, LACTIC #### [place] [address] USAOccult Blood,UrineNegativeNormalNegativeThe Counts Include [address] [facility] Physician GroupComment on above:Order Comment: Name Collection Type:: Clean- Voided MidstreamPerformed By: #### CUBLD, LACTIC #### [place] [address] USAProtein,UrineNegativeNormalNegativeThe Counts Include [address] [facility] Physician GroupComment on above:Order Comment: Name Collection Type:: Clean-Voided MidstreamPerformed By: #### CUBLD, LACTIC #### [place] [address] USARBC LM.HPF (Urine sed) [#/Area]0 /[HPF]Normal0-4The Counts Include [address] [facility] Physician GroupComment on above:Order Comment: Name Collection Type:: Clean-Voided MidstreamPerformed By: #### CUBLD, LACTIC #### [place] [address] USASpecificy Rangely,Urine1.465Rdspza9.001-1.030The Counts Include [address] [facility] Physician GroupComment on above:Order Comment: Name Collection Type:: Clean- Voided MidstreamPerformed By: #### CUBLD, LACTIC #### [address] [place] [address] USASquamous Epithelial Cell,Qughi3-5Egxuri2-6Yty Counts Include [address] [facility] Physician GroupComment on above:Order Comment: Name Collection Type:: Clean- Voided MidstreamPerformed By: #### CUBLD, LACTIC #### [facility] [address] [place] [address] USAUrobilinogen,UrineNormalNormalNormalThe Counts Include [address] [facility] Physician GroupComment on above:Order Comment: Name Collection Type:: Clean- Voided MidstreamPerformed By: #### CUBLD, LACTIC #### [place] [address] USAWBC,Wlbdc96-96Zfwc8-6Fvr Counts Include [address] [facility] Physician GroupComment on above:Order Comment: Name Collection Type:: Clean-Voided MidstreamPerformed By: #### CUBLD, LACTIC #### [place] [address] USAErythrocyte distribution width [Ratio] by Automated count Ordered By: Irina Cavanaugh on 67-25-1623Wqfulkwdbrg distribution width (RBC) [Ratio]15.1 %Dfytjz82.9-15.3FHarrison Community HospitalComment on above: Performed By: #### CUBLD, LACTIC #### [place] [address] USAErythrocytes [#/area] in Urine sediment by Automated count Ordered By: Irina Mao on 48-28-9060NDT Auto (Urine sed) [#/Area]0-1 [HPF]0-4 [facility] Hospital LimaErythrocytes [#/volume] in Blood by Automated countOrdered By: Iirna Mao on 33-38-4891AFJ (Bld) [#/Vol]4.02 10*6/uLNormal 3.60-5.00[facility] Hospital LimaComment on above:Performed By: #### CUBLD, LACTIC #### [place] [address] USAFerritin [Mass/volume] in Serum or PlasmaOrdered By: Irina Mao on 21-86-3235Sanzekio [Mass/Vol]5.9 ng/mLLow11.0-306.8[facility] Hospital LimaComment on above:Performed By: #### CUBMIGUEL, LACTIC #### [place] [id number] USAFolate [Mass/volume] in Serum or PlasmaOrdered By: Irina Cavanaugh on 39-01-0993Wojhqm [Mass/Vol]20.3 ng/mL>5.9[facility] Hospital LimaComment on above:Folate reference range: >5.9 ng/mlThe WHO technical consultation on folate and vitamin l53mvwlmmrikxub has determined that folate concentrations lessthan 4 ng/ml are considered deficient.Glucose [Mass/volume] in Serum or PlasmaOrdered By: Irina Cavanaugh on 53-71-6986Pwehkep [Mass/Vol]87 mg/sVRljetx60-737JxmmhnrcmScci Hospital LimaComment on above:ADA recommended reference rangeRandom Glucose Reference Range is dependent on time and content of last meal. Glucose of more than 200 mg/dL in a nonstressed, ambulatory subject supports the diagnosisof Diabetes Mellitus.Result Comment: Random Glucose Reference Range is dependent on time and content of last meal. Glucose of more than 200 mg/dL in a nonstressed, ambulatory subject supports the diagnosis of Diabetes Mellitus. ADA recommended reference rangePerformed By: #### SELINA LACTIC #### [place] [id number] USAHematocrit [Volume Fraction] of Blood by Automated count Ordered By: Irina Cavanaugh on 83-62-1994Dzwqukhstr (Bld) [Volume fraction]32.2 %Low 34.0-46.4FHarrison Community HospitalComment on above:Performed By: #### SELINA, LACTIC #### [facility] [address] [place] [address] USAHemoglobin [Mass/volume] in BloodOrdered By: Irina Cavanaugh on 76-01-6446Cklqaqxnzh (Bld) [Mass/Vol]10.5 g/dLLow11.8-15.4FHarrison Community HospitalComment on above:Performed By: #### SELINA, LACTIC #### [address] [place] [address] USAHemogram CBC Without Diffon 79-15-6584Ikcc Corpuscular HGB Conc32.6 g/dZHcuwxt70.0-35.0The Counts Include [address] [facility] Physician GroupComment on above: Performed By: #### CUBLD, LACTIC #### [facility] [address] [place] [address] USAWBC (Bld) [#/Vol]6.1 10*3/uLNormal3.8-11.6The Counts Include [address] [facility] Physician GroupComment on above:Performed By: #### CUBLD, LACTIC #### [place] [address] USAIron [Mass/volume] in Serum or PlasmaOrdered By: Irina Mao on 52-55-0388Aypm [Mass/Vol]41 ug/iVHma64-267TmmpgadfiScci Hospital LimaComment on above:Performed By: #### CUBLD, LACTIC #### [place] [address] USAIron and TIBC Profileon 10-13-2023% Iron Saturation8.9 % Zqn33-73Wqj Counts Include [address] [facility] Physician GroupComment on above:Performed By: #### CUBLD, LACTIC #### [place] [address] USATotal Iron Binding Yycibxnm411 ug/rLXzpe051-955Fve Moses Taylor HospitalComment on above:Performed By: #### CUBLD, LACTIC #### [place] [address] USAIron binding capacity [Mass/volume] in Serum or Plasma Ordered By: Irina Mao on 19-05-7470Vobb binding capacity [Mass/Vol]462 ug/dL 255-450S[facility] Hospital LimaIron saturation [Mass Fraction] in Serum or PlasmaOrdered By: Irina Mao on 21-98-0443Weca saturation [Mass fraction]8.9 %20-50S[facility] Hospital LimaKetones Auto test strip (U) [Mass/Vol] Ordered By: Irina Mao on 62-25-8758Plggjjz (U) [Mass/Vol]NegativeNegative [facility] LimaLaboratory - UrinalysisOrdered By: Irina Cavanaugh on 75-88-0055Uzfguhq casts LM Ql (Urine sed)0-8 [LPF]0-8[facility] Hospital LimaLeukocytes [#/area] in Urine sediment by Automated countOrdered By: Irina Mao on 95-99-7804YFF Auto (Urine sed) [#/Area]10-19 [HPF]0-4 [facility] LimaLeukocytes [#/volume] corrected for nucleated erythrocytes in Blood by Automated counOrdered By: Irina Mao on 45-68-9510BEX corrected for nucl RBC Auto (Bld) [#/Vol]6.1 10*3/uL3.8-11.6FUniversity Hospitals TriPoint Medical Center [Entitic mass] by Automated countOrdered By: Irina Cavanaugh on 39-14-9627PHR (RBC) [Entitic mass]26.1 vtPzpcle50.7-34.3FHarrison Community HospitalComment on above:Performed By: #### CUBLD, LACTIC #### [facility] [address] Auto (RBC) [Mass/Vol]Ordered By: Irina Cavanaugh on 11-08-3570EWEG (RBC) [Mass/Vol]32.6 g/dL32.0-35.0[facility] Hospital LimaMCV [Entitic volume] by Automated countOrdered By: Irina Cavanaugh on 11-42-2945IQX (RBC) [Entitic vol]80.3 qRTnsctu29-459JsjhpesyxScci Hospital LimaComment on above:Performed By: #### CUBLD, LACTIC #### [facility] [address] [place] [address] USAMagnesium [Mass/volume] in Serum or PlasmaOrdered By: Irina Mao on 67-70-9152Inubkyksi [Mass/Vol]2.3 mg/dLNormal1.9-2.7FHarrison Community HospitalComment on above:Performed By: #### CUBLD, LACTIC #### [place] [id number] USANitrite Test strip Ql (U)Ordered By: Irina Cavanaugh on 51-01-1339Fwkejxj Ql (U)NegativeNegativeScci Hospital LimaNo Panel InformationOrdered By: Irina Cavanaugh on 51-80-0916Zbtgfxrjj GFR (CKD-EPI) 31.415 mL/MinScci Hospital LimaPharmacy Creatinine Clearance (ChemN/AFHarrison Community HospitalParathyrin.intact [Mass/volume] in Serum or PlasmaOrdered By: Irina Cavanaugh on 88-87-1742Mteawcsstd.intact [Mass/Vol] 209.4 pg/tR19-41LjryutlzuScci Hospital LimaParathyroid Hormone Intacton 43-62-0978Xuskgzfvqvm Hormone Yquzos265.4 pg/lQCejv44-44Bdz Counts Include [address] [facility] Physician GroupComment on above:Result Comment: PERFORMED BY: [place] [address] PATHOLOGIST RAG CUTTING MACHINE OPERATOR SALUD MIRANDA M.D.Performed By: #### CUBLD, LACTIC #### [place] [address] USAPhosphate [Mass/volume] in Serum or PlasmaOrdered By: Irina Cavanaugh on 20-90-0712Zkxltfras [Mass/Vol]4.1 mg/dLNormal2.5-4.5FHarrison Community HospitalComment on above:Performed By: #### CUBLD, LACTIC #### [facility] [address] [place] [address] USAPlatelet mean volume [Entitic volume] in Blood by Automated countOrdered By: Irina Cavanaugh on 28-64-2627Zaczcclh mean volume (Bld) [Entitic vol]6.8 fLNormal6.3-10.7FHarrison Community HospitalComment on above:Result Comment: PERFORMED BY: [place] [address] PATHOLOGIST RAG CUTTING MACHINE OPERATOR SALUD MIRANDA M.D.Performed By: #### CUBLD, LACTIC #### [place] [address] USAPlatelets [#/volume] in Blood by Automated countOrdered By: Irina Cavanaugh on 78-68-8895Oekouuudr (Bld) [#/Vol]283 10*3/mGBfvbog281-345 [facility] LimaComment on above:Performed By: #### CUBLD, LACTIC #### [place] [address] USAPotassium [Moles/volume] in Serum or PlasmaOrdered By: Irina Martinezr on 14-58-0270Yoxyllcoi [Moles/Vol]4.2 mmol/LNormal3.5-5.1FHarrison Community HospitalComment on above:Performed By: #### CUBLD, LACTIC #### [place] [address] USAProtein Auto test strip (U) [Mass/Vol]Ordered By: Irina Cavanaugh on 03-32-0580Ajgrvvb (U) [Mass/Vol]NegativeNegativeScci Hospital LimaProtein Creat Ratio Ur Randomon 94-31-7154Uxpejgfgnt, Urine (Random)73.00 mg/dLNoMcCullough-Hyde Memorial Hospitale Counts Include [facility] Physician GroupComment on above:Result Comment: No reference range establishedPerformed By: #### CUBLD, LACTIC #### [place] [address] USAUrine Protein/Creatinine Aiswo401 mg/g{Cre}Normal0-200The Counts Include [address] [facility] Physician [facility] Hospital Of GreenvilleComment on above:Result Comment: PERFORMED BY: [place] [address] PATHOLOGIST RAG CUTTING MACHINE OPERATOR SALUD MIRANDA M.D.Performed By: #### CUBLD, LACTIC #### [place] [address] USAProtein [Mass/volume] in UrineOrdered By: Irina Cavanaugh on 00-12-8527Hixvrlx (U) [Mass/Vol]13 mg/dLHealthsouth Rehabilitation Hospital0-9[facility] Comment on above:Performed By: #### CUBLD, LACTIC #### [place] [address] USARenal Function Panelon 62-18-6866Gthxclo [Mass/Vol]3.8 g/dLNormal3.5-5.7The Counts Include [address] [facility] Physician GroupComment on above:Performed By: #### CUBLD, LACTIC #### [place] [address] USAGFR/1.73 sq M.predicted MDRD (S/P/Bld) [Vol rate/Area] 31.415 mL/min/{1.73_m2}NormalThe Counts Include [address] [facility] Physician GroupComment on above: Performed By: #### CUBLD, LACTIC #### [place] [address] USASerum or plasma anion gap determinationOrdered By: Irina Mao on 20-34-9868Rafvw gap [Moles/Vol]9.1 mmol/LNormal6.0-15.0[facility] Hospital LimaComment on above:Performed By: #### CUBLD, LACTIC #### [place] [address] USASodium [Moles/volume] in Serum or PlasmaOrdered By: Irina Mao on 65-65-7132Zxqwjd [Moles/Vol]142 mmol/KUjjesd462-634AnvxnqpkqScci Hospital LimaComment on above:Performed By: #### CUBLD, LACTIC #### [place] [address] USASpecific gravity Auto test strip (U) [Rel density]Ordered By: Irina Mao on 71-54-0050Wbqcczbg gravity (U) [Rel density]1.0121.001-1.030 [facility] Hospital LimaTransferrin [Mass/volume] in Serum or Plasma Ordered By: Irina Mao on 32-38-5275Rfqtxwseesc [Mass/Vol]330 mg/dLNormal 203-362[facility] Hospital LimaComment on above:Performed By: #### CUBLD, LACTIC #### [place] [id number] USAUrate [Mass/volume] in Serum or PlasmaOrdered By: Irina Mao on 11-86-4119Orxsw [Mass/Vol]6.0 mg/dLNormpa2.3-6.6FHarrison Community HospitalComment on above:Performed By: #### CUBLD, LACTIC #### [facility] [address] [place] [address] USAUrea nitrogen [Mass/volume] in Serum or PlasmaOrdered By: Irina Mao on 78-32-3251Amrq nitrogen [Mass/Vol]25 mg/dLNormal7-25S[facility] Hospital LimaComment on above:Performed By: #### CUBLD, LACTIC #### [facility] [address] [place], [place] [address]Urine Cultureon 02-79-7391Bgsfjjsy identified Cx Nom (U) >100,000 colonies/ml mixed bacterial skin contaminants 2 Days PERFORMED BY: [place] [address] PATHOLOGIST RAG CUTTING MACHINE OPERATOR SALUD MIRANDA M.D.[facility] Physician GroupComment on above:Performed By: #### CUBLD, LACTIC #### [facility] [address] [place] [address] USAUrine clarity by refractometry automatedOrdered By: Irina Mao on 42-13-2993Gysneov Refractometry automated (U)ClearCleGuernsey Memorial HospitalUrine culture routineOrdered By: Irina Mao on 88-77-1080Tnbqbzup identified Cx Nom (U)2 DaysScci Hospital Lima Urine glucose measurement by automated test strip (mass/volume)Ordered By: Irina Mao on 23-72-0948Nzhfxix Auto test strip (U) [Mass/Vol]Normal mg/dLNoal [facility] Hospital LimaUrine hemoglobin detection by automated test stripOrdered By: Irina Mao on 32-54-5103Ffmjtyuliy Auto test strip Ql (U) NegativeNegativeScci Hospital LimaUrine leukocyte esterase detection by automated test stripOrdered By: Irina Mao on 71-30-4531Mdfdfatue esterase Auto test strip Ql (U)2+NegativeScci Hospital LimaUrine pH measurement by automated test stripOrdered By: Irina Mao on 03-44-1060hL (U)5.5 [pH]Normal5.0-9.0[facility] Hospital LimaComment on above:Order Comment: Name Collection Type:: Clean-Voided MidstreamPerformed By: #### SELINA, LACTIC #### [facility] [address] [place], [place] [address] USAUrine protein/creatinine ratioOrdered By: Irina Cavanaugh on 65-23-7721Pxzxeyq/Creatinine (U) [Ratio]178 mg/g{Cre}0-200S[facility] Hospital LimaUrobilinogen Auto test strip (U) [Mass/Vol]Ordered By: Irina Cavanaugh on 82-59-6673Nmommimuyoaw (U) [Mass/Vol]Normal mg/dLNormalScci Hospital LimaVit. B12/Folate Profileon 56-27-6601Juetku06.3 ng/mLNormal>5.9The Counts Include [address] [facility] At [facility] Physician GroupComment on above:Result Comment: Folate reference range: >5.9 ng/ml The WHO technical consultation on folate and vitamin b12 deficiencies has determined that folate concentrations less than 4 ng/ml are considered deficient.Performed By: #### SELINA, LACTIC #### [facility] [address] [place], [place] [address] USAVitamin B12 ser/plasOrdered By: Irina Cavanaugh on 10-13-2023 Cobalamin (Vitamin B12) [Mass/Vol]1832 pg/zEQrez536-371Gfqotonka[address] [place], [place] [address]Comment on above:Performed By: #### SELINA, LACTIC #### [facility] [address] [place], [place] [address] USAVitamin D 25 Hydroxy Totalon 61-98-5761Tzapstr D 25 Hydroxy Total31.4 ng/pDCdnyco39-871Vpt Counts Include [address] [facility] At [facility] Physician GroupComment on above:Result Comment: VITAMIN D STATUS 25(OH)VITAMIN D RANGE (ng/mL) Deficient <20 Insufficient 20 to <30 Sufficient 30 to 100 Reference: Vanda MF,Celeste GOMEZ, Rena DENIS, et al. Evaluation,treatment, and prevention of vitamin D deficiency; an Endocrine Society clinical practice guideline. JCEM. 2010; 96(7):1911-30. PERFORMED BY: [place] [id number] PATHOLOGIST RAG CUTTING MACHINE OPERATOR SALUD MIRANDA M.D.Performed By: #### SELINA, LACTIC #### [place] [address] USAVitamin D+Metabolites [Mass/volume] in Serum or Plasma Ordered By: Irina Cavanaugh on 03-87-1429Hjswotj D+Metabolites [Mass/Vol]31.4 ng/mL 30-100S[facility] Hospital LimaComment on above:VITAMIN D STATUS 25(OH)VITAMIN D RANGE (ng/mL) Deficient <20 Insufficient 20 to <40Eisxtffkof15 to 100Reference: Vanda MF,Celeste NC, Rena DENIS, et al. Evaluation,treatment, and prevention of vitamin D deficiency; an Endocrine Society clinical practice guideline. JCEM. 2010; 96(7):1911-30.CA ECHO DOPPLER COMPLETEon 64-65-4141[place]za[place], [place] [address] Cardiology Report Signed Patient: ELIZABETH IRVIN MR#: [id number] : 1965 Acct:[id number] Age/Sex: 57 / F ADM Date: 07/12/23 Loc: CARD Attending Dr: JUSTIN MARLEY Ordering Physician: JUSTIN MARLEY Date of Service: 07/12/23 Procedure(s): CA echo doppler complete Accession Number(s): [id number] cc: JUSTIN MARLEY Patient Name: ELIZABETH IRVIN MR#: [id number] : 1965 Exam Date: 07/12/2023 Ordering Doctor: DR JUSTIN MARLEY . ECHOCARDIOGRAM REPORT PROCEDURE: CA ECHO DOPPLER COMPLETE INDICATIONS: Congestive heart failure, bilateral edema of lower extremity COMPARISON: None. DESCRIPTION: COMPLETE ECHOCARDIOGRAM Real-time transthoracic echocardiography with 2D, M-mode, spectral and color flow Doppler performed. QUALITY: Technical quality was good. LEFT VENTRICLE: Normal chamber size. Moderate concentric left ventricular hypertrophy. LV EF: Global left ventricular systolic function is normal; visually estimated ejection fraction is 60 to 65%. Calculated left ventricular ejection fraction is 68%. No wall motion abnormalities. DIASTOLIC: Normal diastolic function. ATRIAL SEPTUM: Inadequately seen. LEFT ATRIUM: Normal chamber size. RIGHT ATRIUM: Normal chamber size. RIGHT VENTRICLE: Normal chamber size. Normal right ventricular systolic function. TRICUSPID VALVE: Normal mobility and thickness. No stenosis with trivial regurgitation. No evidence of pulmonary hypertension. RVSP 26mmHg. MITRAL VALVE: Normal mobility and thickness. No evidence of mitral valve stenosis. There is no mitral annular calcification. Trivial mitral regurgitation. AORTIC VALVE: Normal trileaflet appearance. Thickened aortic valve. Normal leaflet mobility. No evidence of aortic valve stenosis. No aortic regurgitation. AORTIC ROOT: Normal diameter and appearance. PULMONIC VALVE: Normal thickness and mobility. No stenosis. Mild regurgitation. PERICARDIUM: No evidence of pericardial effusion. IVC: Collapses with inspirations. Normal size. CONCLUSION: 1. Global left ventricular systolic function is normal; visually estimated ejection fraction is 60 to 65% 2. Normal right ventricular size and systolic function 3. Moderately increased left ventricular wall thickness 4. Normal diastolic function 5. Normal right ventricular systolic pressure 6. Mild pulmonic regurgitation Adult Echocardiography Procedure Report Left Ventricle LVEDD (3.7 - 5.6 cm): 3.59 cm LVESD (2.2 - 4.0 cm): 2.41 cm LVIVS thickness (0.6 - 1.2 cm): 1.36 cm LVPW thickness (0.5 - 1.0 cm): 1.33 cm e': 0.09 m/s E - e': 6.90 LVOT Max Gradient: 5.67 mm[Hg] LVOT Area (cm2): 1.19 m/s Peak Velocity (LVOT): 1.19 m/s Mean Velocity (LVOT): 0.71 m/s LVOT Diameter 2.04 cm Left Ventricular Ejection Fraction: 68.16 % Left Atrium LA Volume Index (2D A2C): 34.61 ml/m2 Left Atrium Systolic Dimension: 3.16 cm Mitral Valve MV E to A Ratio: 0.77, 0.76 MV Max Gradient: MV Mean Gradient: Mitral Valve A-Wave Peak Velocity: 0.83 m/s Mitral Valve E-Wave Peak Velocity: 0.64 m/s Cardiovascular Orifice Area: Right Ventricle RV Internal Diastolic Dimension: 2.37 cm Aorta AO Root Diam: 2.85 cm Ascending Ao Diam: 2.93 cm Aortic Valve AoV Area (Peak Diego): 3.14 cm2, 3.14 cm2 AoV Area (VTI): 3.22 cm2, 3.22 cm2 Deceleration [place]: Pressure Half-Time: Peak Velocity(Antegrade Flow): 1.24 m/s Peak Gradient(Antegrade Flow): 6.18 mm[Hg] Mean Velocity(Antegrade Flow): 0.86 m/s Mean Gradient(Antegrade Flow): 3.38 mm[Hg] Velocity Time Integral: 24.15 cm Tricuspid Valve Peak Velocity (Regurgitant Flow): 2.36 m/s, 2.40 m/s, 2.02 m/s Peak Velocity: Pulmonic Valve Mean Gradient: 1.68 mm[Hg], 1.76 mm[Hg] Mean Velocity: 0.61 m/s, 0.65 m/s Peak Velocity: 0.82 m/s P (more content not included)...TBHRadiology, Radiologist, MD - 07/14/2023 [place] [address] Cardiology Report Signed Patient: ELIZABETH IRVIN MR#: [id number] : 1965 Acct:[id number] Age/Sex: 57 / F ADM Date: 07/12/23 Loc: CARD Attending Dr: JUSTIN MARLEY Ordering Physician: JUSTIN MARLEY Date of Service: 07/12/23 Procedure(s): CA echo doppler complete Accession Number(s): [id number] cc: JUSTIN MARLEY Patient Name: ELIZABETH IRVIN MR#: [id number] : 1965 Exam Date: 07/12/2023 Ordering Doctor: DR JUSTIN MARLEY . ECHOCARDIOGRAM REPORT PROCEDURE: CA ECHO DOPPLER COMPLETE INDICATIONS: Congestive heart failure, bilateral edema of lower extremity COMPARISON: None. DESCRIPTION: COMPLETE ECHOCARDIOGRAM Real-time transthoracic echocardiography with 2D, M-mode, spectral and color flow Doppler performed. QUALITY: Technical quality was good. LEFT VENTRICLE: Normal chamber size. Moderate concentric left ventricular hypertrophy. LV EF: Global left ventricular systolic function is normal; visually estimated ejection fraction is 60 to 65%. Calculated left ventricular ejection fraction is 68%. No wall motion abnormalities. DIASTOLIC: Normal diastolic function. ATRIAL SEPTUM: Inadequately seen. LEFT ATRIUM: Normal chamber size. RIGHT ATRIUM: Normal chamber size. RIGHT VENTRICLE: Normal chamber size. Normal right ventricular systolic function. TRICUSPID VALVE: Normal mobility and thickness. No stenosis with trivial regurgitation. No evidence of pulmonary hypertension. RVSP 26mmHg. MITRAL VALVE: Normal mobility and thickness. No evidence of mitral valve stenosis. There is no mitral annular calcification. Trivial mitral regurgitation. AORTIC VALVE: Normal trileaflet appearance. Thickened aortic valve. Normal leaflet mobility. No evidence of aortic valve stenosis. No aortic regurgitation. AORTIC ROOT: Normal diameter and appearance. PULMONIC VALVE: Normal thickness and mobility. No stenosis. Mild regurgitation. PERICARDIUM: No evidence of pericardial effusion. IVC: Collapses with inspirations. Normal size. CONCLUSION: 1. Global left ventricular systolic function is normal; visually estimated ejection fraction is 60 to 65% 2. Normal right ventricular size and systolic function 3. Moderately increased left ventricular wall thickness 4. Normal diastolic function 5. Normal right ventricular systolic pressure 6. Mild pulmonic regurgitation Adult Echocardiography Procedure Report Left Ventricle LVEDD (3.7 - 5.6 cm): 3.59 cm LVESD (2.2 - 4.0 cm): 2.41 cm LVIVS thickness (0.6 - 1.2 cm): 1.36 cm LVPW thickness (0.5 - 1.0 cm): 1.33 cm e': 0.09 m/s E - e': 6.90 LVOT Max Gradient: 5.67 mm[Hg] LVOT Area (cm2): 1.19 m/s Peak Velocity (LVOT): 1.19 m/s Mean Velocity (LVOT): 0.71 m/s LVOT Diameter 2.04 cm Left Ventricular Ejection Fraction: 68.16 % Left Atrium LA Volume Index (2D A2C): 34.61 ml/m2 Left Atrium Systolic Dimension: 3.16 cm Mitral Valve MV E to A Ratio: 0.77, 0.76 MV Max Gradient: MV Mean Gradient: Mitral Valve A-Wave Peak Velocity: 0.83 m/s Mitral Valve E-Wave Peak Velocity: 0.64 m/s Cardiovascular Orifice Area: Right Ventricle RV Internal Diastolic Dimension: 2.37 cm Aorta AO Root Diam: 2.85 cm Ascending Ao Diam: 2.93 cm Aortic Valve AoV Area (Peak Diego): 3.14 cm2, 3.14 cm2 AoV Area (VTI): 3.22 cm2, 3.22 cm2 Deceleration [place]: Pressure Half-Time: Peak Velocity(Antegrade Flow): 1.24 m/s Peak Gradient(Antegrade Flow): 6.18 mm[Hg] Mean Velocity(Antegrade Flow): 0.86 m/s Mean Gradient(Antegrade Flow): 3.38 mm[Hg] Velocity Time Integral: 24.15 cm Tricuspid Valve Peak Velocity (Regurgitant Flow): 2.36 m/s, 2.40 m/s, 2.02 m/s Peak Velocity: Pulmonic Valve Mean Gradient: 1.68 mm[Hg], 1.76 mm[Hg] Mean Velocity: 0.61 m/s, 0.65 m/s Peak Velocity: 0.82 m/s Peak Gradient: 2.91 mm[Hg], 2.44 mm[Hg] Right Atrium Right Atrium Systolic Pressure: 20.27 ml, 20.27 ml Dictated by: Radha Beth M.D. on 07/14/2023 at 11:34 Approved by: Radha Beth M.D. on 07/14/2023 at 11:38 Dictated By: Radha Beth M.D. Signed By: 07/14/23 1139 DD/ 1138 TD/TT: Senior Sales Engineer: [facility] CenterRadiology Study observation (narrative)[facility] ECHO DOPPLER COMPLETEOrdered By: Radiologist Radiology on 20-32-8513[facility] Work Phone: US KIDNEY/BLADDERon 26-79-3695AV KIDNEY/BLADDER* * *Final Report* * * DATE OF EXAM: Apr 26 2023 2:38PM [facility] 1055 - US KIDNEY/BLADDER / PROCEDURE REASON: [...] shadowing calculus. Stable severe left renal atrophy. Senior Sales Engineer: [facility] Transcribe Date/Time: Apr 26 2023 2:45P Dictated by : ALBERT FRIEDMAN MD This examination was interpreted and the report reviewed and electronically signed by: DAPHNE FAN MD on Apr 26 2023 4:07PM EST [id number] Lake Joint Township District Memorial HospitalXR ABDOMEN 3V KUB W/OBLIQUESon 58-75-4805JP ABDOMEN 3V KUB W/OBLIQUES* * *Final Report* * * DATE OF [...] at the left mid and upper abdomen. Senior Sales Engineer: [facility] Transcribe Date/Time: Apr 26 2023 4:04P Dictated by : DAPHNE FAN MD This examination was interpreted and the report reviewed and electronically signed by: DAPHNE FAN MD on Apr 26 2023 4:11PM EST [id number]-Rittman HospitalCNOVon 07-53-7240BULCQrkkha Visit (UROSMN) ELIZABETH IRVIN ([id number]) 1965 F Date Time Provider Department 10/21/22 12:15 PM SAMY ODONNELL During your visit today, we recorded the following information about you: Samy Odonnell MD 10/21/2022 12:53 PM Signed CYSTOSCOPY PROCEDURE M.D.'S HOPS NOTE Pertinent History [...] Samy Odonnell MD Director, Surgical Stone Disease [facility] Pager [phone] 10/21/2022 Dana Renteria RN 10/21/2022 12:52 PM Signed Actual procedure/procedure scheduled: Yes Performing provider/scheduled provider: Yes Patient was roomed in: Q9- 05 Television Inspector offered:Patient declines Patient arrived in the room [...] Education Session: None Instruction Provided To: Patient Label Pinker Present: not applicable Discipline: Nursing Learning Topic: [...] labs, photos, and/or imag (more content not included)...[facility] POSTPROC EVALon 05-85-1456ZQNR POSTPROC EVALHNO ID: [id number] Author: Gabi Dougherty MD Service: ? Author Type: Anesthesiologist Type: Anesthesia Postprocedure Evaluation Filed: 10/12/2022 3:28 PM Note Text: POST ANESTHESIA EVALUATION NOTE : 1965 Procedure Summary Date: 10/12/22 Room / Location: [address] Anesthesia Start: 728 Anesthesia Stop: 1029 [...] October 12, 2022 TIME: 3:28 PM CSN: [id number] Health St[facility] PRE-OPon 34-36-6304KQHW PRE-OPHNO ID: [id number] Author: Gabi Dougherty MD Service: ? Author Type: Anesthesiologist Type: Anesthesia Preprocedure Evaluation Filed: 10/12/2022 9:09 AM Note Text: ANESTHESIOLOGY DAY OF SURGERY NOTE : 1965 Procedure Information Anesthesia Start Date/Time: 10/12/22728 Procedure: MINI PERC NEPHROLITHOTOMY LITHOTRIPSY,STONE EXTRACTION,ANTEGRADE URETEROSCOPY,STENT PLACEMENT WHEN PERFORMED INCD IMAGING UP TO 2cm (Right: Kidney) Location: MAIN [facility] Surgeons: Samy Odonnell MD [...] Thick neck: no Lip Bite Test: II Microretrognathia/Micronagthia/Recessed Chin: No DENTAL Dental findings: teeth intact. [...] and consent discussed: yes. Patient / Responsible Republican agrees to proceed: yes Patient / Surrogate [...] October 12, 2022 TIME: 9:08 AM CSN: [id number] Health St. Elizabeth Boardman HospitalBacteria Ur Culton 19-39-5428Juvsvrzw identified Cx Nom (U)CULTURE, URINE: No growth (<1,000 CFU/ml)[facility]cy HealthComment on above: Performed By: #### 630-4 ####[facility] LABCLIA [id number] [place] [address] [place] OF AMERICACALCULI ANALYSISon 00-85-2722Rxvwbfhi analysis [Interp][facility] Comment on above:Order Comment: Specimen Type: CALCULUS SPECIMENOrdering Facility: [facility] Address: [address] [place], [place] [address] Comment: This test was developed and its performance characteristics determined by [facility] [place] ([facility]). It has not been cleared or approved by the FDA. RT-PLMI is regulated under CLIA as qualified to perform high-complexity testing. This test is used for clinical purposes. It should not be regarded as investigational orfor research.Performed By: #### CSA ####[facility] LABCLIA [id number] [address] STATES OF AMERICACALCULUS COLORBROWNNormalPeoples Hospital on above:Order Comment: Specimen Type: CALCULUS SPECIMENOrdering Facility: [facility] Address: [address] [place] [address] Performed By: #### CSA ####[facility] LABCLIA [id number] [address] OF CHILLICOTHE HOSPITALCALCULUS COMPOSITION 170% Calcium Oxalate MonohydrateNormalKettering Health Preble Comment on above:Order Comment: Specimen Type: CALCULUS SPECIMENOrdering Facility: [facility] Address: [address] [place], [place] [address]Performed By: #### CSA ####[facility] LABIA [id number] [address] OF [place] CALCULUS COMPOSITION 220% Calcium Oxalate DihydrateNElyria Memorial Hospital on above:Order Comment: Specimen Type: CALCULUS SPECIMENOrdering Facility: [facility] Address: [address] [place], [place] [address]Performed By: #### CSA ####[facility] LABCLIA [id number] [address] OF AMERICACALCULUS COMPOSITION 310% Minor ComponentsNormalCWilson Street Hospital on above:Order Comment: Specimen Type: CALCULUS SPECIMENOrdering Facility: [facility] Address: [address]Performed By: #### CSA ####[facility] LABCLIA [id number] [address] AMERICACALCULUS SIZE AND WTMultiple pieces. 0.0655 GRAMSNoMercy Health [facility]iff[facility] Hospital on above:Order Comment: Specimen Type: CALCULUS SPECIMENOrdering Facility: [facility] Address: [address] [place] [address]Performed By: #### CSA ####[facility] LABCLIA [id number] [address]CALCULUS TYPECALCULI/CALCULUSNormalCWilson Street Hospital on above:Order Comment: Specimen Type: CALCULUS SPECIMENOrdering Facility: [facility] Address: [address] [place] [address] Performed By: #### CSA ####[facility] LABCLIA [id number] [address]OPERATIVE NOon [id number] NOHNO ID: [id number] Author: Samy Odonnell MD Service: Urology Author Type: Physician Type: Operative Report Filed: 10/21/2022 11:54 AM Note Text: OPERATIVE/PROCEDURE REPORT LOG ID: [id number] Surgery/Procedure Date: 10/12/2022 Incision/Procedure Start Time: 8:36 AM Incision Close/Procedure End Time: 10:05 AM Surgeon(s)/Proceduralist(s) and Colorectal Surgeon(s): Surgeon(s) and Role: * Samy Odonnell MD - Primary * Nori Jefferson MD - Resident - Assisting Procedure(s): Right Flexible ureteroscopy Percutaneous renal access Dilation of renal access tract Right percutaneous nephrolithotomy - Mini PCNL (16Fr) 2 cm max dimension 1Qso68mb right JJ stent insertion Physician time for fluoroscopic imaging and interpretation <1hr Anatomic Site: Right kidney Approach: Endoscopic Anesthesia: General Operative Indications: This is a 56 year old female with a right renal pelvis stone (15mm). After discussing the risks, benefits, and alternatives of the procedure the patient has elected to pursue management of their condition via the aforementioned surgery. Intraoperative Findings: Stone [place]: Primary stone 15 mm renal pelvis; Additional stone(s) none Access: 1 tract(s), combined fluoroscopic/ultrasound-guided access with endoscopic visualization, lower pole calyx; [...] cystoscope was used to perform cystourethroscopy. A 5-citizen of [place] open-ended ureteral catheter was used to intubate [...] out through the urethral meatus to gain rplniaz-eiu-ewvpyfo access. A 4-Albanian ureteral glide catheter was used to exchange the usmfdet-bww-tvuraka guidewire for an Amplatz superstiff wire. The [...] Diagnosis: Pre-Op Diagnosis Codes: * Nephrolithiasis [N20.0] Post-Op/Post-Procedure Diagnosis: Post-Op Diagnosis Codes: * Nephrolithiasis [N20.0] Estimated Blood Loss: 5 mls S (more content not included)...[facility] HealthBacteria Ur Cult on 67-32-8475Zwaqzbzb identified Cx Nom (U)ORGANISM ID: 1 10,000 -<50,000 CFU/ml Mixed microbiota No further workup. Mixed microbiota can be due to???urine???contamination with skin bacteria at time of collection or presence of a long-term urinary catheter. If a new culture is needed, please consider re-education of the patient on proper midstream collection technique or straight catheterization for???urine???collection.[facility] on above: Performed By: #### 630-4 ####[facility] LABCLIA [id number] [place] [address] [place] OF AMERICABasic metabolic 2000 panelon 18-93-1760Qexrp gap [Moles/Vol]8 mmol/LLow9-18[facility] on above:Order Comment: Specimen Type: BLOOD SPECIMEN [facility] Address: [address] [place] [address]Performed By: #### 69594-3 #### [facility] CLIA [id number] [address] [place], [place] [address]Krpalxf [Mass/Vol]9.5 mg/dLNormal8.5-10.2CMercy Health St. Elizabeth Boardman HospitalComment on above:Order Comment: Specimen Type: BLOOD SPECIMEN [facility] Address: [address] [place], [place] [address]Performed By: #### 89768-6 #### [facility] CLIA [id number] [address] [place] [address]Dsolsajc [Moles/Vol]108 mmol/ZVhxw06-843TeezxlzqkKettering Health PrebleComhurley medical center on above:Order Comment: Specimen Type: BLOOD SPECIMEN [facility] Address: [address] [place], [place] [address]Performed By: #### 86676-2 #### [facility] CLIA [id number] [address] [place] [address]VZ2 [Moles/Vol]24 mmol/TIcbzhg51-46FiwefcpezKettering Health Preble Comment on above:Order Comment: Specimen Type: BLOOD SPECIMEN [facility] Address: [address] [place], [place] [address]Performed By: #### 10876-3 #### [facility] CLIA [id number] [address] [place] [address]Setzbjmtmn [Mass/Vol]1.62 mg/dLHigh0.58-0.96[facility]bleComhurley medical center on above:Order Comment: Specimen Type: BLOOD SPECIMEN [facility] Address: [address] [place], [place] [address]Performed By: #### 19763-2 #### [facility] CLIA [id number] [address] [place] [address]UGSRHQCJK GLOMERULAR FILTRATION RATE37 mL/min/1.73m???Low>=60 [facility] on above:Order Comment: Specimen Type: BLOOD SPECIMEN [facility] Address: [place] [address]Ebabof Comment: Estimated Glomerular Filtration Rate (eGFR) is calculated using the 2020 CKD-EPI cre atinine equation. This equation utilizes serum creatinine, sex, and age as parameters. The creatinine assay has traceable calibration to isotope dilution- mass spectrometry. Refer to KDIGO guidelines for clinical interpretation. In patients with unstable renal function, e.g. those with acute kidney injury, the eGFR may not accurately reflect actual GFR.Performed By: #### 26065-0 #### [facility] CLIA [id number] [address] [place] [address]Lozbujy [Mass/Vol]89 mg/iREmdspc23-95EbibqzdvmPeoples Hospital on above:Order Comment: Specimen Type: BLOOD SPECIMEN [facility] Address: [place] [address]Qzkdwn Comment: The [place] Diabetes Association (ADA) provides guidance for cutoff [...] Standards of Medical Care in Diabetes 2016, [place] Diabetes Association. Diabetes Care. 2016.39(Suppl 1).Performed By: #### 19791-8 #### [facility] CLIA [id number] [address] [place] [address]Mmntlaypi [Moles/Vol]5.0 mmol/LNormal3.7-5.1CWilson [address] [facility] on above:Order Comment: Specimen Type: BLOOD SPECIMEN [facility] Address: [address] [address]Performed By: #### 07938-5 #### [facility] CLIA [id number] [address] [place], [place] [address]Qigjnw [Moles/Vol]140 mmol/XWuonni359-674XctfgvydqPeoples Hospital on above:Order Comment: Specimen Type: BLOOD SPECIMEN [facility] Address: [address] [place], [place] [address]Performed By: #### 77875-2 #### [facility] CLIA [id number] [place], [place] [address]Yiqv nitrogen [Mass/Vol]20 mg/dLNormal7-21[facility] on above:Order Comment: Specimen Type: BLOOD SPECIMEN [facility] Address: [address] [place], [place] [address]Performed By: #### 23442-9 #### [facility] CLIA [id number] [address] [place] [address]WHT W Auto Differential panel (Bld)on 42-11-2127Vwygxzrsv (Bld) [#/Vol]0.04 10*3/uLNormal<0.11CWilson [address] [facility] on above: Order Comment: Specimen Type: BLOOD SPECIMENOrdering Facility: [facility] Address:[address] [place], [place] [address]Performed By: #### 29839-0 ####[facility]CLIA [id number] [place], [place] [address]Swomkjfcz/100 WBC (Bld)1.0 %NormalPeoples Hospital on above:Order Comment: Specimen Type: BLOOD SPECIMENOrdering Facility: [facility] Address:[address] [place], [place] [address]Performed By: #### 11958-4 ####[facility]CLIA [id number] [place], [place] [address]Vamggietuanv cell count method Nom (Bld)AutoNormalCWilson Street [facility] on above:Order Comment: Specimen Type: BLOOD SPECIMENOrdering Facility: [facility] Address:[address] [place], [place] [address]Performed By: #### 51300-1 ####[facility] LABCLIA [id number] [place], [place] [address]Yikkxeiazor (Bld) [#/Vol]0.12 10*3/uLNormal<0.46[facility] on above:Order Comment: Specimen Type: BLOOD SPECIMENOrdering Facility: [facility] Address:[address] [place], [place] [address]Performed By: #### 29283-0 ####[facility] LABIA [id number] [place] [address] Eosinophils/100 WBC (Bld)3.1 %NormalPeoples Hospital on above: Order Comment: Specimen Type: BLOOD SPECIMENOrdering Facility: [facility] Address:[address] [place], [place] [address]Performed By: #### 74875-8 ####[facility] LABIA [id number] [place], [place] [address]Epzpczkvwqp distribution width (RBC) [Ratio]14.3 %Normal 11.5-15.0[facility] on above:Order Comment: Specimen Type: BLOOD SPECIMENOrdering Facility: [facility] Address:[address] [place], [place] [address]Performed By: #### 69097-0 ####[facility]IA [id number] [place] [address] Hematocrit (Bld) [Volume fraction]31.4 %Low36.0-46.0[facility] Comment on above:Order Comment: Specimen Type: BLOOD SPECIMENOrdering Facility: [facility] Address:[address] [place] [address] Performed By: #### 07827-0 ####[facility]CLIA [id number] [place], [place] [address]Doadmllkfg (Bld) [Mass/Vol]9.3 g/dLLow11.5-15.5CWilson [address] [facility] on above:Order Comment: Specimen Type: BLOOD SPECIMENOrdering Facility: [facility] Address:[address] [place], [place] [address]Performed By: #### 02583-7 ####[facility]CLIA [id number] [place], [place] [address]Lubdlzfa granulocytes (Bld) [#/Vol]10*3/uLNormal<0.10 [facility] on above:Order Comment: Specimen Type: BLOOD SPECIMENOrdering Facility: [facility] Address:[address] [place], [place] [address]Performed By: #### 12175-0 ####[facility]IA [id number] [place], [place] [address]Ohkjljmb granulocytes/100 WBC (Bld)0.3 %[facility] on above: Order Comment: Specimen Type: BLOOD SPECIMENOrdering Facility: [facility] Address:[address] [place], [place] [address]Performed By: #### 55158-0 ####[facility] LABCLIA [id number] [place], [place] [address]Fihzcnqzomz (Bld) [#/Vol]1.16 10*3/uLNormal1.00-4.00 [facility] on above:Order Comment: Specimen Type: BLOOD SPECIMENOrdering Facility: [facility] Address:[address] [place], [place] [address]Performed By: #### 45311-5 ####[facility]IA [id number] [place] [address] Lymphocytes/100 WBC (Bld)30.4 %NormalPeoples Hospital on above: Order Comment: Specimen Type: BLOOD SPECIMENOrdering Facility: [facility] Address:[address] [place], [place] [address]Performed By: #### 34746-5 ####[facility]CLIA [id number] [place], [place] [address]ADB (RBC) [Entitic mass]27.3 unMesvkj41.0-34.0[facility] on above:Order Comment: Specimen Type: BLOOD SPECIMENOrdering Facility: [facility] Address:[address] [place], [place] [address]Performed By: #### 91149-6 ####[facility]IA [id number] [place], [place] [address]APTH (RBC) [Mass/Vol]29.6 g/dLLow30.5-36.0[facility] on above: Order Comment: Specimen Type: BLOOD SPECIMENOrdering Facility: [facility] Address:[address] [place], [place] [address]Performed By: #### 81166-4 ####[facility]IA [id number] [place], [place] [address]RMR (RBC) [Entitic vol]92.1 hWEvubqf67.0-100.0[facility] on above:Order Comment: Specimen Type: BLOOD SPECIMENOrdering Facility: [facility] Address:[address] [place], [place] [address]Performed By: #### 00764-7 ####[facility]IA [id number] [place], [place] [address]Stfvvhanh (Bld) [#/Vol]0.32 10*3/uLNormal<0.87[facility] on above: Order Comment: Specimen Type: BLOOD SPECIMENOrdering Facility: [facility] Address:[address] [place], [place] [address]Performed By: #### 89590-7 ####[facility]CLIA [id number] [place], [place] [address]Uudvjcltk/100 WBC (Bld)8.4 %NormalPeoples Hospital on above:Order Comment: Specimen Type: BLOOD SPECIMENOrdering Facility: [facility] Address:[address] [place], [place] [address]Performed By: #### 91446-4 ####[facility]CLIA [id number] [place], [place] [address]Ffwsaqibwln (Bld) [#/Vol]2.17 10*3/uLNormal1.45-7.50[facility] on above: Order Comment: Specimen Type: BLOOD SPECIMENOrdering Facility: [facility] Address:[address] [place], [place] [address]Performed By: #### 88616-0 ####[facility]CLIA [id number] [place], [place] [address]Epndqsivrqs/100 WBC (Bld)56.8 %NormalPeoples Hospital on above:Order Comment: Specimen Type: BLOOD SPECIMENOrdering Facility: [facility] Address:[address] [place], [place] [address]Performed By: #### 36701-3 ####[facility]CLIA [id number] [place], [place] [address]Bbahiqyny RBC (Bld) [#/Vol]10*3/uLNormal<0.01[facility] on above:Order Comment: Specimen Type: BLOOD SPECIMENOrdering Facility: [facility] Address:[address] [place], [place] [address]Performed By: #### 11332-9 ####[facility]CLIA [id number] [place], [place] [address]Trerkjads RBC/100 WBC (Bld) [Ratio]0.0 /100 WBCNormal [facility] on above:Order Comment: Specimen Type: BLOOD SPECIMENOrdering Facility: [facility] Address:[address] [place], [place] [address]Performed By: #### 49014-8 ####[facility]CLIA [id number] [place], [place] [address]Rhmzkwnk mean volume (Bld) [Entitic vol]8.7 fLLow9.0-12.7CMercy Health [facility] Comment on above:Order Comment: Specimen Type: BLOOD SPECIMENOrdering Facility: [facility] Address:[address] [place] [address] Performed By: #### 56719-1 ####[facility]IA [id number] [place], [place] [address]Iwnupzyqz (Bld) [#/Vol]338 10*3/aHXbpoqh974-388DobonhxywPeoples Hospital on above:Order Comment: Specimen Type: BLOOD SPECIMENOrdering Facility: [facility] Address:[address] [place], [place] [address]Performed By: #### 55977-5 ####[facility]CLIA [id number] [place], [place] [address]URL (Bld) [#/Vol]3.41 10*6/uLLow3.90-5.20[facility] on above:Order Comment: Specimen Type: BLOOD SPECIMENOrdering Facility: [facility] Address:[address] [place], [place] [address]Performed By: #### 85361-2 ####[facility]IA [id number] [place], [place] [address]UNM (Bld) [#/Vol]3.82 10*3/uLNormal3.70-11.00[facility] on above:Order Comment: Specimen Type: BLOOD SPECIMENOrdering Facility: [facility] Address:[address] [place], [place] [address]Performed By: #### 29412-3 ####[facility] [id number] [place], [place] [address]KTRAzd 18-81-4773XWHEHvrzyg Visit (UROLMN) ELIZABETH IRVIN ([id number]) 1965 F Date Time Provider Department 09/28/22 1:30 PM MARLEY CHOE During your visit today, we recorded the following information about you: Pulse Blood pressure Weight Height 75/minute 119/79 60.8 kg 1.6 m Marley Gutierrez PA-C 09/28/2022 2:56 PM Signed [facility] PRE-OP NOTE [...] Signed: Yes. Pre-op HANDP Done by Physician Colorectal Surgeon: Yes. PATIENT INSTRUCTIONS FOR SURGERY 1.) DO [...] + HTN. No history of angina, CHF, AK, cardiac surgery of stents. Respiratory: Negative for [...] problems. Neurologic: No history of TIA's, stroke, SUPERVISOR TITLE tumor, impaired sensorium, hemiplegia or paraplegia No neurological symptoms or problems. Hematology/Oncology: No history of bleeding or clotting disord (more content not included)...NormalTrinity Health System East CampusTORY PHYSICALon 09-28-2022 HISTORY PHYSICALHNO ID: [id number] Author: Marley Brown PA-C Service: ? Author Type: Physician Colorectal Surgeon Type: HANDP Filed: 09/28/2022 2:56 PM Note [...] + HTN. No history of angina, CHF, AK, cardiac surgery of stents. Respiratory: Negative for [...] problems. Neurologic: No history of TIA's, stroke, SUPERVISOR TITLE tumor, impaired sensorium, hemiplegia or paraplegia No [...] (no units) Date Value 09/07/2022 Negative Specific [place], Ur (no units) Date Value 09/07/2022 1.014 [...] visit. 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 69-14-0260ALTCLjyptz Visit (UROSMN) ELIZABETH IRVIN ([id number]) 1965 F Date Time Provider Department 09/16/22 12:15 PM SAMY ODONNELL During your visit today, we recorded the following information about you: Dede Story RN 09/16/2022 12:17 PM Signed Actual procedure/procedure scheduled: Yes Performing provider/scheduled provider: Yes Patient was roomed in: Q9- 09 Television Inspector offered: Patient declines Patient arrived in the [...] Education Session: None Instruction Provided To: Patient Label Pinker Present: not applicable Discipline: Nursing Learning Topic: SURVIVAL SKILLS: Complication Prevention Pain Management Symptom Management Patient Evaluation: Verbalizes understanding: Yes Supplemental Material Given: None Instructed By Dede Story RN In Department Urology . Samy Odonnell MD 09/16/2022 12:30 PM Signed CYSTOSCOPY PROCEDURE MMaite'S HOP NOTE Pertinent History and Physical Exam reviewed [...] Samy Odonnell MD Director, Surgical Stone Disease [facility] Pager [phone] 09/16/2022 Dede Story RN 09/16/2022 12:30 PM [...] verified. Fire risk ass (more content not included)...NormalKettering Health PrebleANES POSTPROC EVALon 51-03-5192YUUT POSTPROC EVALHNO ID: [id number] Author: Florentino Murray DO Service: ? Author Type: Anesthesiologist Type: Anesthesia Postprocedure Evaluation Filed: 09/07/2022 5:03 PM Note Text: POST ANESTHESIA EVALUATION NOTE : 1965 Procedure Summary Date: 09/07/22 Room / Location: [address] [facility] Anesthesia Start: 1330 Anesthesia Stop: 1547 Procedures: [...] September 07, 2022 TIME: 5:03 PM CSN: [id number] Hospital [facility] PRE-OPon 30-60-6026OQXJ PRE-OPHNO ID: [id number] Author: Florentino Murray DO Service: ? Author [...] and consent discussed: yes. Patient / Responsible Republican agrees to proceed: yes Patient / Surrogate [...] September 07, 2022 TIME: 10:53 AM CSN: [id number] [facility] Hospital OP NOTon 60-34-0324CIJLK OP NOTHNO ID: [id number] Author: Yasmeen Alexander MD Service: Urology Author Type: Fellow Type: Brief Op Note Filed: 09/07/2022 3:15 PM Note Text: BRIEF OPERATIVE / PROCEDURE NOTE LOG ID: [id number] Surgery/Procedure Date: 09/07/2022 Incision/Procedure Start Time: 1:53 PM Incision Close/Procedure End Time: Surgeon(s)/Proceduralist(s) and Colorectal Surgeon(s): Surgeon(s) and Role: * Samy Odonnell MD - Primary * Kolton Reyes MD - Resident - Assisting * Yasmeen Alexander MD - Fellow No Additional Staff Procedure(s): Left ureteroscopy Left ureteral stent exchange Anesthesia: General Pre-Op/Pre-Procedure Diagnosis: Nephrolithiasis [N20.0] Post-Op/Post-Procedure Diagnosis: Same Implantable Devices: Left 6 Fr [...] September 07, 2022 TIME: 3:15 PM PAGER/CONTACT #:[facility] HealthCALCULI ANALYSISon [id number] analysis [Interp][facility] on above:Order Comment: Specimen Type: CALCULUS SPECIMENOrdering Facility: [facility] Address: [address] [place] [address] Result Comment: This test was developed and its performance characteristics determined by [facility] [place] ([facility]). It has not been cleared or approved by the FDA. [facility] is regulated under CLIA as qualified to perform high-complexity testing. This test is used for clinical purposes. It should not be regarded as investigational orfor research.Performed By: #### CSA ####[facility] LABCLIA [id number] [place] [address] [place] AMERICACALCULUS COLORWHITENoalCWilson Street Hospital on above:Order Comment: Specimen Type: CALCULUS SPECIMENOrdering Facility: [facility] Address: [address] [place] [address] Performed By: #### CSA ####[facility] LABCLIA [id number] [place] [address] [place] AMERICACALCULUS COMPOSITION 170% Calcium Oxalate MonohydrateNormalKettering Health Preble Comment on above:Order Comment: Specimen Type: CALCULUS SPECIMENOrdering Facility: [facility] Address: [address] [place], [place] [address]Performed By: #### CSA ####[facility] LABIA [id number] [place] [address] [place] CALCULUS COMPOSITION 220% Calcium Oxalate DihydrateNormalPeoples Hospital on above:Order Comment: Specimen Type: CALCULUS SPECIMENOrdering Facility: [facility] Address: [address] [place], [place] [address]Performed By: #### CSA ####[facility] LABIA [id number] [place] [address] [place] AMERICACALCULUS COMPOSITION 310% Minor ComponentsNormalCWilson Street Hospital on above:Order Comment: Specimen Type: CALCULUS SPECIMENOrdering Facility: [facility] Address: [address] [place] [address]Performed By: #### CSA ####[facility] LABCLIA [id number] [address] STATES OF CHILLICOTHE HOSPITALCALCULUS SIZE AND WTMultiple pieces. [address] on above:Order Comment: Specimen Type: CALCULUS SPECIMENOrdering Facility: [facility] Address: [address] [place], [place] [address]Performed By: #### CSA ####[facility] LABCLIA [id number] [address] OF AMERICACALCULUS TYPECALCULI/CALCULUSNormalCWilson Street [facility] on above:Order Comment: Specimen Type: CALCULUS SPECIMENOrdering Facility: [facility] Address: [address] [place] [address] Performed By: #### CSA ####[facility] LABCLIA [id number] [address] OF CHILLICOTHE HOSPITALCNOVon 16-00-0695RIUBPrisqz Visit (UROLMN) ELIZABETH IRVIN ([id number]) 1965 F Date Time Provider Department 09/07/22 [...] + HTN. No history of angina, CHF, AK, cardiac surgery of stents. Respiratory: Negative for [...] problems. Neurologic: No history of TIA's, stroke, SUPERVISOR TITLE tumor, impaired sensorium, hemiplegia or paraplegia No [...] (no units) Date Value 08/18/2022 Negative Specific [place]ang[place], Ur (no units) Date Value 08/18/2022 1.016 [...] 07, 2022 TIME: 8:59 AM PAGER/CONTACT #: [facility] PRE-OP NOTE Elizabeth Irvin is a 56 year old female. Pre-op Date: September 07, 2022 Date of Procedure: 09/07/22 Does the patien (more content not included)...NormalKettering Health [facility]ble HISTORY PHYSICALon 73-01-7178DBKFSKJ PHYSICALHNO ID: [id number] Author: Marley Brown PA-C Service: ? Author Type: Physician Colorectal Surgeon Type: HANDP Filed: 09/07/2022 10:06 AM Note [...] + HTN. No history of angina, CHF, AK, cardiac surgery of stents. Respiratory: Negative for [...] problems. Neurologic: No history of TIA's, stroke, SUPERVISOR TITLE tumor, impaired sensorium, hemiplegia or paraplegia No [...] (no units) Date Value 08/18/2022 Negative Specific [place]ang[place], Ur (no units) Date Value 08/18/2022 1.016 [...] 07, 2022 TIME: 8:59 AM PAGER/CONTACT #: [facility] PRE-OP NOTE [...] Regular Adult) Pulse 7 (more content not included)...NormalKettering Health Preble OPERATIVE NOon 90-22-0618ZYBIVWUEI NOHNO ID: [id number] Author: Samy Odonnell MD Service: Urology Author Type: Physician Type: Operative Report Filed: 09/07/2022 3:56 PM Note Text: OPERATIVE/PROCEDURE REPORT LOG ID: [id number] Surgery/Procedure Date: 09/07/2022 Incision/Procedure Start Time: 1:53 PM Incision Close/Procedure End Time: Surgeon(s)/Proceduralist(s) and Colorectal Surgeon(s): Surgeon(s) and Role: * Samy Odonnell MD - Primary * Kolton Reyes MD - Resident - Assisting * Yasmeen Alexander MD - Fellow Procedure(s): Cystourethroscopy Left retrograde pyelogram Left ureteroscopy and laser lithotripsy with stone basketing/manipulation Left JJ ureteric stent exchange Fluoroscopy < 1 hr Approach: Endoscopic Anesthesia: General Findings: Stone [place]: Primary stone 10 mm mid ureter, significantly [...] Fluoroscopy C-arm was brought into the room. Sales And Service Technician images were taken. A 22 Fr rigid [...] through the scope into the kidney. A [employer] single-use flexible ureteroscope was advanced over the [...] in stable condition. Pre-Op/Pre-Procedure Diagnosis: Nephrolithiasis [N20.0] Post-Op/Post-Procedure Diagnosis: Same Implantable Devices: Left 6 Fr [...] MD, FACS Director, Surgical Stone Disease, [facility] (more content not included)...NormalKettering Health PreblePT INTACT BLDon 09-07-2022 Parathyrin.intact [Mass/Vol]81 pg/bDWchu65 - 65 pg/mLCleveland ClinicPTH-Intact SerPl-mCncon 96-68-8319Mbfethssdc.intact [Mass/Vol]81 pg/qJZvbc66-95QfjdcxvzzPeoples Hospital on above:Order Comment: Specimen Type: BLOOD SPECIMENOrdering Facility: [facility] Address:[address] [place] [address]Performed By: #### 2731-8 ####[facility] LABCLIA [id number] [place] [address] [place] AMERICAURINALYSIS, REFLEX MICROSCOPICon 49-77-8526Jbposwpud Ql (U) NegativeNormalNegativePeoples Hospital on above:Order Comment: Specimen Type: URINE SPECIMENOrdering Facility: [facility] Address:[address]Performed By: #### [id number] ####[facility] LABCLIA [id number] [place] [address] [place] AMERICAClarity (Unsp spec)CloudyAbnormal ClearKettering Health PrebleComment on above:Order Comment: Specimen Type: URINE SPECIMENOrdering Facility: [facility] Address:[address] [place], [place] [address]Performed By: #### [id number] ####[facility] LABCLIA [id number] [place] [address] [place] AMERICAColor (U)YellowNormalYellowKettering Health Preble Comment on above:Order Comment: Specimen Type: URINE SPECIMENOrdering Facility: [facility] Address:[address] [place], [place] [address] Performed By: #### [id number] ####[facility] LABCLIA [id number] [place] [address] [place] Epithelial cells LM.HPF (Urine sed) [#/Area]FewNoalCMercy Health St. [facility] Comment on above:Order Comment: Specimen Type: URINE SPECIMENOrdering Facility: [facility] Address:[address] [place], [place] [address] Performed By: #### [id number] ####[facility] LABCLIA [id number] [place] [address] [place] Glucose Test strip (U) [Mass/Vol]NegativeNormalTrace, NegativeKettering Health PrebleComment on above:Order Comment: Specimen Type: URINE SPECIMENOrdering Facility: [facility] Address:[address] [place] [address]Performed By: #### [id number] ####[facility] LABCLIA [id number] [place] [address] [place] Hemoglobin Ql (U)TraceNormalNegative, TracePeoples Hospital on above:Order Comment: Specimen Type: URINE SPECIMENOrdering Facility: [facility] Address:[address] [place], [place] [address]Performed By: #### [id number] ####[facility] LABCLIA [id number] [address] STATES OF CHILLICOTHE HOSPITALKetones Ql (U)Negative NormalNegative, TraceCleMercy Hospital on above:Order Comment: Specimen Type: URINE SPECIMENOrdering Facility: [facility] Address:[address] [place], [place] [address]Performed By: #### [id number] ####[facility] LABCLIA [id number] [place] [address] [place] AMERICALeukocyte esterase Test strip Ql (U)500 Nicholas/uLAbnormalNegative, 25 Nicholas/uLCleMercy Hospital on above:Order Comment: Specimen Type: URINE SPECIMENOrdering Facility: [facility] Address:[address] [place], [place] [address]Performed By: #### [id number] ####[facility] LABCLIA [id number] [place] [address] [place] AMERICANitrite Ql (U)Negative NormalNegativePeoples Hospital on above:Order Comment: Specimen Type: URINE SPECIMENOrdering Facility: [facility] Address:[address] [place] [address]Performed By: #### [id number] ####[facility] LABCLIA [id number] [place] [address] [place] AMERICApH (U)6.0 [pH]Normal5.0-8.0[facility] on above:Order Comment: Specimen Type: URINE SPECIMENOrdering Facility: [facility] Address:[address] [place], [place] [address]Performed By: #### [id number] ####[facility] LABCLIA [id number] [place] [address] [place] Protein (U) [Mass/Vol]TraceNormalTrace, NegativeCleCleveland Clinic [facility] Comment on above:Order Comment: Specimen Type: URINE SPECIMENOrdering Facility: [facility] Address:[address] [place] [address] Performed By: #### [id number] ####[facility] [id number] [place] [address] [place] RBC LM.HPF (Urine sed) [#/Area]0-3 /HPFNormal0-3 /HPFKettering Health Preble Comment on above:Order Comment: Specimen Type: URINE SPECIMENOrdering Facility: [facility] Address:[address] [place] [address] Performed By: #### [id number] ####[facility] [id number] [address] [place] Specific gravity (U) [Rel density]1.312Masnnb3.005-1.030K[facility]tering Health PrebleComment on above:Order Comment: Specimen Type: URINE SPECIMENOrdering Facility: [facility] Address:[address] [place], [place] [address]Performed By: #### [id number] ####[facility] [id number] [place] [address] [place] Urobilinogen Ql (U)NegativeNormalNegativeKettering Health PrebleComment on above:Order Comment: Specimen Type: URINE SPECIMENOrdering Facility: [facility] Address:[address] [place], [place] [id number] By: #### [id number] ####[facility] [id number] [place] [address] [place] AMERICAWBC LM.HPF (Urine sed) [#/Area]/[HPF]Abnormal0-5 /HPFKettering Health PrebleComhurley medical center on above:Order Comment: Specimen Type: URINE SPECIMENOrdering Facility: [facility] [facility] Address:[address] [place] [address]Jkskauahw By: #### [id number] ####[facility] LABCLIA [id number] TOBI PANG [id number] [place] [address] [place] OF AMERICABilirubin Ql (U) NegativeNegativeHenrico ClinicClarity (Unsp spec)CloudyAbnormalClearCleveland ClinicColor (U)YellowYellowMiami Valley HospitalEpithelial cells LM.HPF (Urine sed) [#/Area]FewMiami Valley HospitalGlucose Test strip (U) [Mass/Vol]NegativeTrace, NegativeMiami Valley HospitalHemoglobin Ql (U)TraceNegative, TraceMiami Valley Hospital Ketones Ql (U)NegativeNegative, TraceMiami Valley HospitalLeukocyte esterase Test strip Ql (U)500 Nicholas/uLAbnormalNegative, 25 Nicholas/uLCleOhio State Health SystemNitrite Ql (U) NegativeNegativeHenrico ClinicpH (U)6.0 [pH]5.0 - 8.0CleOhio State Health SystemProtein (U) [Mass/Vol]TraceTrace, NegativeMiami Valley HospitalRBC LM.HPF (Urine sed) [#/Area]0-3 /HPF0-3 /HPFAultman Orrville Hospitalpecific gravity (U) [Rel density]1.014 1.005 - 1.030Miami Valley HospitalUrobilinogen Ql (U)NegativeNegativeMiami Valley Hospital WBC LM.HPF (Urine sed) [#/Area]/[HPF]Abnormal0-5 /HPFMiami Valley HospitalCNPNon [id number] (UROLMN) ELIZABETH IRVIN ([id number]) 1965 F Date Time Provider Department 08/19/22 [...] 2022 12:00 PM ----- Message from Gracy Kolb sent at [...] (None) Encounter Status:Closed by MARISA WEST on 08/19/22NoalCMercy Health St. Elizabeth Boardman HospitalBacteria Ur Culton [id number] identified Cx Nom (U)ORGANISM ID: 1 10,000 -<50,000 CFU/ml Mixed microbiota No further workup. Mixed microbiota can be due to???urine???contamination with skin bacteria at time of collection or presence of a long-term urinary catheter. If a new culture is needed, please consider re-education of the patient on proper midstream collection technique or straight catheterization for???urine???collection.NormalPeoples Hospital on above: Performed By: #### 630-4 ####[facility] LABCLIA [id number] [place] [address] [place] AMERICAUrinalysis complete panel (U)on 34-73-4683Xmdlydyb LM.HPF (Urine sed) [#/Area]RareAbnormal None SeenPeoples Hospital on above:Order Comment: Specimen Type: URINE SPECIMENOrdering Facility: [facility] Address:[address] [address]Performed By: #### 75545-0 ####[facility] LABCLIA [id number] [place] [address] [place] AMERICABilirubin Ql (U)NegativeNormalNegativePeoples Hospital on above:Order Comment: Specimen Type: URINE SPECIMENOrdering Facility: [facility] Address:[address]Performed By: #### 26708-3 ####[facility] LABCLIA [id number] [place] [address] [place] AMERICAClarity (Unsp spec)CloudyAbnormalClearCWilson Street Hospital on above:Order Comment: Specimen Type: URINE SPECIMENOrdering Facility: [facility] Address:[address] [place], [place] [address]Performed By: #### 61245-5 ####[facility] LABCLIA [id number] [place] [address] [place] Color (U)Light YellowNormalYellowPeoples Hospital on above: Order Comment: Specimen Type: URINE SPECIMENOrdering Facility: [facility] Address:[address] [place], [place] [address]Performed By: #### 18625-2 ####[facility] LABIA [id number] [place] [address] [place] AMERICAEpithelial cells LM.HPF (Urine sed) [#/Area]FewNormalCWilson Street Hospital on above: Order Comment: Specimen Type: URINE SPECIMENOrdering Facility: [facility] Address:[address] [place], [place] [address]Performed By: #### 20959-6 ####[facility] LABIA [id number] [place] [address] [place] AMERICAGlucose Test strip (U) [Mass/Vol]NegativeNormalTrace, NegativePeoples Hospital on above:Order Comment: Specimen Type: URINE SPECIMENOrdering Facility: [facility] Address:[address] [place], [place] [address]Performed By: #### 28346-6 ####[facility] LABIA [id number] [place] [address] [place] AMERICAHemoglobin Ql (U)3+ AbnormalNegative, TracePeoples Hospital on above:Order Comment: Specimen Type: URINE SPECIMENOrdering Facility: [facility] Address:[address] [place], [place] [address]Performed By: #### 17668-2 ####[facility] LABIA [id number] [address] STATES OF CHILLICOTHE HOSPITALKetones Ql (U)NegativeNormal Trace, NegativePeoples Hospital on above:Order Comment: Specimen Type: URINE SPECIMENOrdering Facility: [facility] Address:[address] [place], [place] [address]Performed By: #### 42317-7 ####[facility] LABIA [id number] [place] [address] [place] AMERICALeukocyte esterase Test strip Ql (U)500 Nicholas/uLAbnormalNegative, 25 Nicholas/uLPeoples Hospital on above:Order Comment: Specimen Type: URINE SPECIMENOrdering Facility: [facility] Address:[address] [place], [place] [address]Performed By: #### 38794-2 ####[facility] LABIA [id number] [place] [address] [place] AMERICANitrite Ql (U)Negative NormalNegativePeoples Hospital on above:Order Comment: Specimen Type: URINE SPECIMENOrdering Facility: [facility] Address:[address] [place], [place] [address]Performed By: #### 81209-2 ####[facility] LABIA [id number] [place] [address] [place] AMERICApH (U)6.0 [pH]Normal5.0-8.0Pe[facility] on above:Order Comment: Specimen Type: URINE SPECIMENOrdering Facility: [facility] Address:[address] [place], [place] [address]Performed By: #### 76463-3 ####[facility] LABIA [id number] [address] AVENUEDES[address] [id number] Protein (U) [Mass/Vol]1+AbnormalTrace, NegativeKettering Health PrebleComhurley medical center on above:Order Comment: Specimen Type: URINE SPECIMENOrdering Facility: [facility] Address:[address] [place] [address] Performed By: #### 16428-9 ####[facility] LABIA [id number] [place] [address] [place] RBC LM.HPF (Urine sed) [#/Area]/[HPF]Abnormal0-3 /HPFKettering Health Preble Comment on above:Order Comment: Specimen Type: URINE SPECIMENOrdering Facility: [facility] Address:[address] [place] [address] Performed By: #### 47250-5 ####[facility] [id number] [address] [place] Specific gravity (U) [Rel density]1.194Lauziq3.005-1.030[facility] PrebleComhurley medical center on above:Order Comment: Specimen Type: URINE SPECIMENOrdering Facility: [facility] Address:[address] [place], [place] [address]Performed By: #### 47104-9 ####[facility] LABST [facility] [id number] [address] STATES OF [place] Urobilinogen Ql (U)NegativeNormalNegativeKettering Health PrebleComhurley medical center on above:Order Comment: Specimen Type: URINE SPECIMENOrdering Facility: [facility] Address:[address] [place], [place] [address]Performed By: #### 62795-1 ####[facility] [id number] [place] [address] [place] AMERICAWBC LM.HPF (Urine sed) [#/Area]/[HPF]Abnormal0-5 /HPFKettering Health PrebleComhurley medical center on above:Order Comment: Specimen Type: URINE SPECIMENOrdering Facility: 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 Cloud HospitalNURSING PROGon [id number] PRONO ID: [id number] Author: Fernanda Koenig RN Service: Radiology Author Type: Registered Nurse Type: Nursing Progress Note Filed: 07/30/2022 2:18 PM Note Text: Patient here for a renal scan with lasix. Patient identified and allergies reviewed. Per order under scanned documents lasix 40 mg IV given at 1411.[facility]25([place])D3 [facility] - hydroxyvitamin D3 [Mass/Vol]41.8 ng/rDBxmqps53.0-80.0[facility] Comment on above:Order Comment: Specimen Type: BLOOD SPECIMENOrdering Facility: [facility] Address:[address] [place], [place] [address] Result Comment: Classification of 25 [place] Vitamin D status: Deficiency/Insufficiency: < or = 30 ng/ml. Sufficiency/Optimal Levels: 31-80 ng/mL Toxicity: > 100 ng/mL. Test performed by chemiluminescent immunoassay.Performed By: #### 1989-3 ####[facility] LABCLIA [id number] [facility] [id number] [place] [address] [place] AMERICABacteria Culton 07-14-2022 Bacteria identified Cx Nom (U)ORGANISM ID: 1 >=100,000 CFU/ml Citrobacter freundii complex ORGANISM ID: 1 (CITROBACTER FREUNDII COMPLEX) ANTIBIOTIC INTERPRETATION RAVINDER STATUS REFERENCE RANGE Ampicillin R F Cefepime S <=1 F [...] Susceptible <=32 , Intermediate >32 , Resistant >64AbnormalCWilson Street Hospital on above:Performed By: #### 630-4 ####[facility] LABCLIA [id number] [address] OF [facility] W Auto Differential panel (Bld)on 94-02-4800Jsjzjdpzg (Bld) [#/Vol]0.03 10*3/uLNormal<0.11CWilson Street [facility] on above:Order Comment: Specimen Type: BLOOD SPECIMENOrdering Facility: [facility] Address:[address] [place], [place] [address]Performed By: #### 10456-1 ####[facility] LABCLIA [id number] [place] [address] [place] AMERICABasophils/100 WBC (Bld)0.6 %NormalPeoples Hospital on above:Order Comment: Specimen Type: BLOOD SPECIMENOrdering Facility: [facility] Address:[address] [place], [place] [address]Performed By: #### 59122-8 ####[facility] LABCLIA [id number] [place] [address] [place] AMERICADifferential cell count method Nom (Bld)AutoNormalCWilson Street Hospital on above:Order Comment: Specimen Type: BLOOD SPECIMENOrdering Facility: [facility] Address:[address] [place], [place] [address]Performed By: #### 91064-0 ####[facility] LABCLIA [id number] [place] [address] [place] AMERICAEosinophils (Bld) [#/Vol]0.18 10*3/uLNormal<0.46[facility] on above:Order Comment: Specimen Type: BLOOD SPECIMENOrdering Facility: [facility] Address:[address] [place], [place] [address]Performed By: #### 68916-8 ####[facility] LABCLIA [id number] [place] [address] [place] AMERICAEosinophils/100 WBC (Bld)3.7 % NormalPeoples Hospital on above:Order Comment: Specimen Type: BLOOD SPECIMENOrdering Facility: [facility] Address:[address] [place], [place] [address]Performed By: #### 98893-3 ####[facility] LABIA [id number] [place] [address] [place] AMERICAErythrocyte distribution width (RBC) [Ratio]15.7 %High 11.5-15.0[facility] on above:Order Comment: Specimen Type: BLOOD SPECIMENOrdering Facility: [facility] Address:[address] [place], [place] [address]Performed By: #### 48710-5 ####[facility] LABIA [id number] [place] [address] [place] AMERICAHematocrit (Bld) [Volume fraction]31.3 %Low 36.0-46.0[facility] on above:Order Comment: Specimen Type: BLOOD SPECIMENOrdering Facility: [facility] Address:[address] [place], [place] [address]Performed By: #### 15622-2 ####[facility] LABCLIA [id number] [place] [address] [place] AMERICAHemoglobin (Bld) [Mass/Vol]10.1 g/dLLow11.5-15.5 [facility]bleComhur[facility] medical center on above:Order Comment: Specimen Type: BLOOD SPECIMENOrdering Facility: [facility] Address:[address] [place] [address]Performed By: #### 53265-0 ####[facility] LABIA [id number] [place] [address] [place] AMERICAImmature granulocytes (Bld) [#/Vol]10*3/uLNormal<0.10[facility] Health PrebleComment on above:Order Comment: Specimen Type: BLOOD SPECIMENOrdering Facility: [facility] Address:[address] [place] [address]Performed By: #### 02535-8 ####[facility] CLINICIA [id number] [place] [address] [place] AMERICAImmature granulocytes/100 WBC (Bld)0.2 %NormalPeoples Hospital on above:Order Comment: Specimen Type: BLOOD SPECIMENOrdering Facility: [facility] Address:[address] [place] [phone] By: #### 09968-8 ####[facility] LABIA [id number] [place] [address] [place] Lymphocytes (Bld) [#/Vol]1.77 10*3/uLNormal1.00-4.00[facility] Comment on above:Order Comment: Specimen Type: BLOOD SPECIMENOrdering Facility: [facility] Address:[address] [place] [address] Performed By: #### 79279-5 ####[facility] LABIA [id number] [address] STATES OF [facility] Lymphocytes/100 WBC (Bld)36.0 %NormalPeoples Hospital on above: Order Comment: Specimen Type: BLOOD SPECIMENOrdering Facility: [facility] Address:[address] [place], [place] [address]Performed By: #### 63900-8 ####[facility] LABCLIA [id number] [address] STREETMCH (RBC) [Entitic mass]27.8 ghQplacp73.0-34.0[facility] on above:Order Comment: Specimen Type: BLOOD SPECIMENOrdering Facility: [facility] Address:[address] [place], [place] [address]Performed By: #### 33337-0 ####[facility] LABCLIA [id number] [address] ST[address]ETMCHC (RBC) [Mass/Vol] 32.3 g/lYIrgxcp08.5-36.0[facility] on above:Order Comment: Specimen Type: BLOOD SPECIMENOrdering Facility: [facility] Address:[address] [place], [place] [address]Performed By: #### 43186-9 ####[facility] LABCLIA [id number] [address] (RBC) [Entitic vol]86.2 aEHkzaio52.0-100.0[facility] on above:Order Comment: Specimen Type: BLOOD SPECIMENOrdering Facility: [facility] Address:[address] [place], [place] [address]Performed By: #### 70778-9 ####[facility] LABCLIA [id number] [place] [address] [place] BALLAD HEALTHMonocytes (Bld) [#/Vol]0.39 10*3/uLNormal<0.87[facility] on above:Order Comment: Specimen Type: BLOOD SPECIMENOrdering Facility: [facility] Address:[address]Performed By: #### 88779-8 ####[facility] LABCLIA [id number] [place] [address] [place] AMERICAMonocytes/100 WBC (Bld)7.9 %NormalPeoples Hospital on above:Order Comment: Specimen Type: BLOOD SPECIMENOrdering Facility: [facility] Address:[address] [place], [place] [address]Performed By: #### 39806-7 ####[facility] LABIA [id number] [place] [address] [place] AMERICANeutrophils (Bld) [#/Vol]2.53 10*3/uLNormal1.45-7.50[facility] on above:Order Comment: Specimen Type: BLOOD SPECIMENOrdering Facility: [facility] Address:[address] [place], [place] [address]Performed By: #### 13031-7 ####[facility] LABCLIA [id number] [place] [address] [place] AMERICANeutrophils/100 WBC (Bld)51.6 % NormalPeoples Hospital on above:Order Comment: Specimen Type: BLOOD SPECIMENOrdering Facility: [facility] Address:[address] [place] [phone] By: #### 15019-9 ####[facility] LABCLIA [id number] [place] [address] [place] AMERICANucleated RBC (Bld) [#/Vol]10*3/uLNormal<0.01[facility] on above:Order Comment: Specimen Type: BLOOD SPECIMENOrdering Facility: [facility] Address:[address] [place], [place] [address]Performed By: #### 95050-0 ####[facility] LABCLIA [id number] [place] [address] [place] AMERICANucleated RBC/100 WBC (Bld) [Ratio]0.0 /[address] [facility] on above:Order Comment: Specimen Type: BLOOD SPECIMENOrdering Facility: [facility] Address:[address] [place], [place] [address]Performed By: #### 12135-1 ####[facility] LABCLIA [id number] [place] [address] [place] AMERICAPlatelet mean volume (Bld) [Entitic vol]9.4 fLNormal9.0-12.7 [facility] on above:Order Comment: Specimen Type: BLOOD SPECIMENOrdering Facility: [facility] Address:[address] [place], [place] [address]Performed By: #### 41436-4 ####[facility] LABIA [id number] [place] [address] [place] AMERICAPlatelets (Bld) [#/Vol]304 10*3/rNWbzcgo882-366DzdmeigslPeoples Hospital on above:Order Comment: Specimen Type: BLOOD SPECIMENOrdering Facility: [facility] Address:[address] [place] [address]Performed By: #### 98151-5 ####[facility] LABIA [id number] [place] [address] [place] RBC (Bld) [#/Vol]3.63 10*6/uLLow3.90-5.20[facility] on above:Order Comment: Specimen Type: BLOOD SPECIMENOrdering Facility: [facility] Address:[address] [place], [place] [address]Performed By: #### 23973-9 ####[facility] LABIA [id number] [address] AV[address]UED[address] [place], [place] [address] [place] AMERICAWBC (Bld) [#/Vol]4.91 10*3/uLNormal3.70-11.00[facility] Health PrebleComment on above:Order Comment: Specimen Type: BLOOD SPECIMENOrdering Facility: [facility] Address:[address] [address]Performed By: #### 49929-2 ####[facility] LABCLIA [id number] [facility] [id number] [place] [address] OF CHILLICOTHE HOSPITALBasophils (Bld) [#/Vol]0.03 10*3/uL<0.11 k/uLMiami Valley HospitalBasophils/100 WBC (Bld)0.6 %[facility] Differential cell count method Nom (Bld)AutoCleveland ClinicEosinophils (Bld) [#/Vol]0.18 10*3/uL<0.46 k/uLMiami Valley HospitalEosinophils/100 WBC (Bld)3.7 % [facility] HospitalErythrocyte distribution width (RBC) [Ratio]15.7 %High11.5 - 15.0 %[facility] HospitalHematocrit (Bld) [Volume fraction]31.3 %Low36.0 - 46.0 % [facility] HospitalHemoglobin (Bld) [Mass/Vol]10.1 g/dLLow11.5 - 15.5 g/dLMiami Valley HospitalImmature granulocytes (Bld) [#/Vol]<0.10 k/uLMiami Valley HospitalImmature granulocytes/100 WBC (Bld)0.2 %[facility] HospitalLymphocytes (Bld) [#/Vol]1.77 10*3/uL1.00 - 4.00 k/uLMiami Valley HospitalLymphocytes/100 WBC (Bld)36.0 %[facility] HospitalMCH (RBC) [Entitic mass]27.8 pg26.0 - 34.0 pgCleveland Community Memorial HospitalMCHC (RBC) [Mass/Vol]32.3 g/dL30.5 - 36.0 g/dLThe University of Toledo Medical CenterV (RBC) [Entitic vol]86.2 fL80.0 - 100.0 fLCleveland ClinicMonocytes (Bld) [#/Vol]0.39 10*3/uL<0.87 k/uL [facility] ClinicMonocytes/100 WBC (Bld)7.9 %[facility] ClinicNeutrophils (Bld) [#/Vol]2.53 10*3/uL1.45 - 7.50 k/uLHenrico ClinicNeutrophils/100 WBC (Bld)51.6 %[facility] ClinicNucleated RBC (Bld) [#/Vol]<0.01 k/uLHenrico ClinicNucleated RBC/100 WBC (Bld) [Ratio]0.0 /100 WBCHenrico ClinicPlatelet mean volume (Bld) [Entitic vol]9.4 fL9.0 - 12.7 fLCblanchard valley health system ClinicPlatelets (Bld) [#/Vol]304 10*3/uL150 - 400 k/[facility] ClinicRBC (Bld) [#/Vol]3.63 10*6/uLLow3.90 - 5.20 m/[facility] HospitalWBC (Bld) [#/Vol]4.91 10*3/uL3.70 - 11.00 k/[facility]lower HospitalCNOVon 14-88-3530EVQHFhvzsv Visit (UROLMN) ELIZABETH IRVIN ([id number]) 1965 F Date Time Provider Department 07/14/22 [...] Stones Maternal Aunt Maternal Mother Significant comorbidities include:MedicalDiabetes,Hypertension,Gastric Bypass The patient has been experiencing pain [...] based on size, location, hounsfield units and dvuh-zt-xwmpz distance: 0% 3. Ureteroscopy - risks of [...] with more than 50% of the total zvwi-vl-yame time of the visit devoted to patient counseling/coordination of care. Samy Odonnell MD Director, Surgical Stone Disease [facility] Pager [phone] 07/14/2022 Allergies As of Date: 07/14/2022 Noted Allergy Reaction PREDNISOLONE 07/14/2022 4 - Hives PREDNISONE 04/24/2022 4 - Hives VALACYCLOVIR 04/24/2022 4 - Hives Date Reviewed: 07/14/2022 Reviewed by: ANNALISE Reyes - Fully Assessed Reason for Visit: Consult [173] Kidney Stones [48165] Primary Visit Diagnosis:Nephrolithiasis [N20.0] Other Visit Diagnoses:Hydronephrosis with urinary obstruction due to ureteral calculus [N13.2] Left flank pain [R10.9] Left renal atrophy [N26.1] Order(s):NM RENAL FLOW/FXN W PHARM [[id number]] Order #: [id number] FUTURE CBC + DIFF [SQCBCDIF] Order #: [id number] FUTURE COMP METABOLIC PANEL [SQCMP] Order #: [id number] FUTURE PTH INTACT BLD [SQPTHI] Order #: [id number] FUTURE VITAMIN D 25 HYDROXY [SQVITD] Order #: [id number] FUTURE URIC ACID BLOOD [SQURIC] Order #: [id number] FUTURE CALCIUM IONIZED BLOOD [SQICA] Order #: [id number] FUTURE TYPE AND SCREEN,30 DAY [KYCCJC41] Order #: [id number] FUTURE CONFIRM BLOOD TYPE [SQCONABO] Order #: [id number] FUTURE Prescriptions as of 07/15/2022 - lisinopril (ZESTRIL, PRINIVIL) 20 mg tablet Take by mouth. - DULoxetine (CYMBALTA) 60 mg capsule - rOPINIRole (REQUIP) 1 mg tablet - OZEMPIC 0.25 mg or 0.5 mg(2 mg/1.5 mL) pen Problem List As Of Date: 07/14/2022 (None) Disposition: Return for Nuclear re (more content not included)...NormalKettering Health PrebleCONFIRM BLOOD TYPEon 19-89-0796WLOSQlrnuxhha Community Memorial HospitalRh Nom (Bld) PositiveMiami Valley HospitalABOONormalKettering Health PrebleComment on above: Order Comment: Specimen Type: BLOOD SPECIMEN [facility] Address: [address] [place], [place] [address]Performed By: #### [id number] #### [facility] CLIA [id number] [address] [place] [address] STATES OF CHILLICOTHE HOSPITALRh Nom (Bld)PositiveNormal [facility] PrebleComhurley medical center on above:Order Comment: Specimen Type: BLOOD SPECIMEN [facility] Address: [address] [place], [place] [address]Performed By: #### TSCR30 #### [facility] CLIA [id number] [address] [place] [address] [place] OF AMERICAComprehensive metabolic 2000 panelon [id number] [Mass/Vol]3.7 g/dLLow3.9 - 4.9 g/dLMiami Valley Hospital ALP [Catalytic activity/Vol]65 U/L34 - 123 U/LCleveland ClinicALT [Catalytic activity/Vol]9 U/L7 - 38 U/LCleveland ClinicAnion gap [Moles/Vol]12 mmol/L9 - 18 mmol/LCleveland ClinicAST [Catalytic activity/Vol]17 U/L13 - 35 U/LCleveland ClinicBilirubin [Mass/Vol]0.3 mg/dL0.2 - 1.3 mg/dLHenrico ClinicCalcium [Mass/Vol]9.1 mg/dL8.5 - 10.2 mg/dLHenrico ClinicChloride [Moles/Vol]111 mmol/LHigh97 - 105 mmol/LCleveland ClinicCO2 [Moles/Vol]19 mmol/LLow22 - 30 mmol/LCleveland ClinicCreatinine [Mass/Vol]2.85 mg/dLHigh0.58 - 0.96 mg/dL [facility] HospitalEstimated Glomerular Filtration Rate19 mL/min/1.73mLow>=60 mL/min/1.73mCleveland Community Memorial HospitalGlucose [Mass/Vol]80 mg/dL74 - 99 mg/dLMiami Valley HospitalPotassium [Moles/Vol]5.0 mmol/L3.7 - 5.1 mmol/LCleveland ClinicProtein [Mass/Vol]6.1 g/dLLow6.3 - 8.0 g/dLHenrico ClinicSodium [Moles/Vol]142 mmol/L 136 - 144 mmol/LCleveland Community Memorial HospitalUrea nitrogen [Mass/Vol]28 mg/dLHigh7 - 21 mg/dL [facility] ClinicAlbumin [Mass/Vol]3.7 g/dLLow3.9-4.9CMercy Health [facility] Comment on above:Order Comment: Specimen Type: BLOOD SPECIMENOrdering Facility: [facility] Address:[address] [place] [address] Performed By: #### 43316-2, 2730-8, 3083- ####[facility] LABCLIA [id number] [place] [address] [place] AMERICAALP [Catalytic activity/Vol]65 U/IXeadoe91-239ArlkptnubKettering Health Preble Comment on above:Order Comment: Specimen Type: BLOOD SPECIMENOrdering Facility: [facility] Address:[address] [place] [address] Performed By: #### 07586-9, 273-8, 3083- ####[facility] LABCLIA [id number] [place] [address] [place] AMERICAALT [Catalytic activity/Vol]9 U/LNormal7-38[facility] Comment on above:Order Comment: Specimen Type: BLOOD SPECIMENOrdering Facility: [facility] Address:[address] [place] [address] Performed By: #### 00356-3, 273-8, 3084-1 ####[facility] LABCLIA [id number] [place] [address] [place] AMERICAAnion gap [Moles/Vol]12 mmol/LNormal9-18[facility] PrebleComment on above:Order Comment: Specimen Type: BLOOD SPECIMENOrdering Facility: [facility] Address:[address] [place] [address] Performed By: #### 77516-6, 2731-8, 3083-1 ####[facility] LABCLIA [id number] [place] [address] [place] AMERICAAST [Catalytic activity/Vol]17 U/TNanmpx40-01TriojbzvkKettering Health Preble Comment on above:Order Comment: Specimen Type: BLOOD SPECIMENOrdering Facility: [facility] Address:[address] [place], [place] [address] Performed By: #### 48709-4, 273-8, 3083- ####[facility] LABCLIA [id number] [place] [address] [place] AMERICABilirubin [Mass/Vol]0.3 mg/dLNormal0.2-1.3CMercy Health [facility] Comment on above:Order Comment: Specimen Type: BLOOD SPECIMENOrdering Facility: [facility] Address:[address] [place] [address] Performed By: #### 48526-4, 273-8, 3083- ####[facility] LABCLIA [id number] [place] [address] [place] AMERICACalcium [Mass/Vol]9.1 mg/dLNormal8.5-10.2CMercy Health St[facility] Comment on above:Order Comment: Specimen Type: BLOOD SPECIMENOrdering Facility: [facility] Address:[address] [place] [address] Performed By: #### 78282-1, 2730-8, 3083-1 ####[facility] LABCLIA [id number] [place] [address] [place] AMERICAChloride [Moles/Vol]111 mmol/CHvkg37-586JsqsteuegKettering Health Preble Comment on above:Order Comment: Specimen Type: BLOOD SPECIMENOrdering Facility: [facility] Address:[address] [place] [address] Performed By: #### 37023-7, 2730-12, 3083-05 ####[facility] LABCLIA [id number] [place] [address] [place] AMERICACO2 [Moles/Vol]19 mmol/JYev68-77OhdfqmmdsLicking Memorial Hospitalment on above:Order Comment: Specimen Type: BLOOD SPECIMENOrdering Facility: [facility] Address:[address] [place], [place] [address]Performed By: #### 20066-1, 2730-12, 3083-05 ####[facility] LABCLIA [id number] [place] [address] [place] Creatinine [Mass/Vol]2.85 mg/dLHigh0.58-0.96[facility] PrebleComment on above:Order Comment: Specimen Type: BLOOD SPECIMENOrdering Facility: [facility] Address:[address] [place], [place] [address]Performed By: #### 19667-8, 2730-12, 3083-05 ####[facility] LABCLIA [id number] [place] [address] [place] ESTIMATED GLOMERULAR FILTRATION RATE19 mL/min/1.73m???Low>=60[facility] on above:Order Comment: Specimen Type: BLOOD SPECIMENOrdering Facility: [facility] Address:[address] [place], [place] [address]Result Comment: Estimated Glomerular Filtration Rate (eGFR) is calculated using the 2020 CKD-EPI creatinine equation. This equation utilizes serum creatinine, sex, and age as parameters. The creatinine assay has traceable calibration to isotope dilution-mass spectrometry. Refer to KDIGO guidelines f or clinical interpretation. In patients with unstable renal function, e.g. those with acute kidney injury, the eGFR may not accurately reflect actual GFR. Performed By: #### 90162-4, 2730-12, 3083-05 ####[facility] LABIA [id number] [place] [address] [place] AMERICAGlucose [Mass/Vol]80 mg/yOJucsci52-39YyrxcbaepPeoples Hospital on above:Order Comment: Specimen Type: BLOOD SPECIMENOrdering Facility: [facility] Address:[address] [place] [address] Result Comment: The [place] Diabetes Association (ADA) provides guidance for cutoff [...] Standards of Medical Care in Diabetes 2016, [place] [employer]. Diabetes Care. 2016.39(Suppl 1).Performed By: #### 54490-6, 8, 3083- ####[facility] LABIA [id number] [place] [address] [place] AMERICAPotassium [Moles/Vol] 5.0 mmol/LNormal3.7-5.1CWilson [address] [facility] on above:Order Comment: Specimen Type: BLOOD SPECIMENOrdering Facility: [facility] Address:[address] [place], [place] [address]Performed By: #### 62568-5, 2738, 3083-05 ####[facility] LABIA [id number] [place] [id number] [place] AMERICAProtein [Mass/Vol]6.1 g/dLLow6.3-8.0[facility] on above:Order Comment: Specimen Type: BLOOD SPECIMENOrdering Facility: [facility] Address:[address] [place], [place] [address]Performed By: #### 15892-1, 273-8, 3083- ####[facility] LABIA [id number] [place] [address] [place] CHILLICOTHE HOSPITALSodium [Moles/Vol]142 mmol/L Fmcoxd567-459WrehutqljPeoples Hospital on above:Order Comment: Specimen Type: BLOOD SPECIMENOrdering Facility: [facility] Address:[place] [address]Performed By: #### 44158-2, 273-8, 3083-05 ####[facility] LABIA [id number] [place] [address] [place] AMERICAUrea nitrogen [Mass/Vol]28 mg/dL High12-11[facility] on above:Order Comment: Specimen Type: BLOOD SPECIMENOrdering Facility: [facility] Address:[place] [address]Performed By: #### 22560-9, 2738, 3083-05 ####[facility] LABIA [id number] [place] [address] [place] OF AMERICAPTH INTACT BLDon 07-14-2022 Parathyrin.intact [Mass/Vol]125 pg/oSVfdy36 - 65 pg/mLClevelTriHealth Bethesda Butler HospitalPTH-Intact SerPl-mCncon 22-11-2816Sofmdfrrao.intact [Mass/Vol]125 pg/aHUpwt06-41CmxirnkziPeoples Hospital on above:Order Comment: Specimen Type: BLOOD SPECIMENOrdering Facility: [facility] Address:[address] [facility] [place] [address]Cszsuhxtc By: #### 74945-0, 273-8, 3083-05 ####[facility] LABIA [id number] [place] [address] [place] AMERICATYPE AND SCREEN,30 DAYon 86-74-5688TYJMGmfglrddu ClinicHIstorical Ab Scr StatusNegativeCleveland ClinicRh Nom (Bld)Positive Miami Valley HospitalABOONormalPeoples Hospital on above:Order Comment: Specimen Type: BLOOD SPECIMEN [facility] Address: [address] [place], [place] [address]Performed By: #### [id number] #### [facility] CLIA [id number] [address] [place] [address] [place] AMERICAHISTORICAL AB SCR STATUS NegativeNormalCWilson Street Hospital on above:Order Comment: Specimen Type: BLOOD SPECIMEN [facility] Address: [address] [place], [place] [address]Performed By: #### [id number] #### [facility] CLIA [id number] [address] [place] [address] [place] AMERICARh Nom (Bld)PositiveNormal [facility] on above:Order Comment: Specimen Type: BLOOD SPECIMEN [facility] Address: [address] [place] [address]Performed By: #### [id number] #### [facility] CLIA [id number] [address] [place] [address] [place] AMERICAURIC ACID BLOODon 07-14-2022 Urate [Mass/Vol]6.7 mg/dLHigh2.5 - 6.6 mg/dLMiami Valley HospitalURINALYSIS, REFLEX MICROSCOPICon 14-11-3716Rqtmvnahk Ql (U)NegativeNormalNegativePeoples Hospital on above:Order Comment: Specimen Type: URINE SPECIMENOrdering Facility: [facility] Address:[address] [place] [address]Performed By: #### [id number] ####[facility] LABCLIA [id number] [place] [address] [place] Clarity (Unsp spec)CloudyAbnormalClearCWilson Street Hospital on above:Order Comment: Specimen Type: URINE SPECIMENOrdering Facility: [facility] Address:[address] [place], [place] [address]Performed By: #### [id number] ####[facility] LABCLIA [id number] [place] [address] [place] AMERICAColor (U)Light [place] AbnormalYellowPeoples Hospital on above:Order Comment: Specimen Type: URINE SPECIMENOrdering Facility: [facility] Address:[address] [place], [place] [address]Performed By: #### [id number] ####[facility] LABCLIA [id number] [place] [address] [place] AMERICAEpithelial cells LM.HPF (Urine sed) [#/Area]Few NormalPeoples Hospital on above:Order Comment: Specimen Type: URINE SPECIMENOrdering Facility: [facility] Address:[address] [place], [place] [address]Performed By: #### [id number] ####[facility] LABIA [id number] [place] [address] [place] AMERICAGlucose Test strip (U) [Mass/Vol]NegativeNormalTrace, NegativePeoples Hospital on above:Order Comment: Specimen Type: URINE SPECIMENOrdering Facility: [facility] Address:[address] [place], [place] [address]Performed By: #### [id number] ####[facility] LABIA [id number] [place] [address] [place] AMERICAHemoglobin Ql (U)2+AbnormalNegative, Trace [facility] on above:Order Comment: Specimen Type: URINE SPECIMENOrdering Facility: [facility] Address:[address] [place] [address]Performed By: #### [id number] ####[facility] LABIA [id number] [place] [address] [place] AMERICAHyaline casts (Urine sed) [#/Area]1-3 /LPFAbnormal0 /LPF [facility] on above:Order Comment: Specimen Type: URINE SPECIMENOrdering Facility: [facility] Address:[address] [place], [place] [address]Performed By: #### [id number] ####[facility] LABCLIA [id number] [address] STATES OF CHILLICOTHE HOSPITALKetones Ql (U)NegativeNormalNegative, TraceKettering Health PrebleComment on above:Order Comment: Specimen Type: URINE SPECIMENOrdering Facility: [facility] Address:[address] [place], [place] [address]Performed By: #### [id number] ####[facility] LABIA [id number] [place] [address] [place] Leukocyte esterase Test strip Ql (U)500 Nicholas/uLAbnormalNegative, 25 Nicholas/uL [facility] on above:Order Comment: Specimen Type: URINE SPECIMENOrdering Facility: [facility] Address:[address] [place], [place] [address]Performed By: #### [id number] ####[facility] LABIA [id number] [place] [address] [place] AMERICANitrite Ql (U)NegativeNormalNegativeKettering Health Preble Comment on above:Order Comment: Specimen Type: URINE SPECIMENOrdering Facility: [facility] Address:[address] [place] [address] Performed By: #### [id number] ####[facility] LABCLIA [id number] [place] [address] [place] pH (U)5.5 [pH]Normal5.0-8.0[facility] on above:Order Comment: Specimen Type: URINE SPECIMENOrdering Facility: [facility] Address:[address] [place], [place] [address]Performed By: #### [id number] ####[facility] LABCLIA [id number] [place] [address] [place] CHILLICOTHE HOSPITALProtein (U) [Mass/Vol] 1+AbnormalTrace, NegativePeoples Hospital on above:Order Comment: Specimen Type: URINE SPECIMENOrdering Facility: [facility] Address:[address] [place], [place] [address]Performed By: #### [id number] ####[facility] LABCLIA [id number] [address] ST[address]ETRBC LM.HPF (Urine sed) [#/Area]/[HPF]Abnormal0-3 /HPFPeoples Hospital on above:Order Comment: Specimen Type: URINE SPECIMENOrdering Facility: [facility] Address:[address] [place], [place] [address]Performed By: #### [id number] ####[facility] LABIA [id number] [address] STATES [facility]ARY HOSPITALSpecific gravity (U) [Rel density]1.884Uapizk2.005-1.030[facility] on above: Order Comment: Specimen Type: URINE SPECIMENOrdering Facility: [facility] Address:[address] [place], [place] [address]Performed By: #### [id number] ####[facility] LABIA [id number] [address]ETUrobilinogen Ql (U) NegativeNormalNegativePeoples Hospital on above:Order Comment: Specimen Type: URINE SPECIMENOrdering Facility: [facility] Address:[address] [place], [place] [address]Performed By: #### [id number] ####[facility] LABIA [id number] [place] [address] [place] CHILLICOTHE HOSPITALWBC LM.HPF (Urine sed) [#/Area] /[HPF]Abnormal0-5 /HPFPeoples Hospital on above:Order Comment: Specimen Type: URINE SPECIMENOrdering Facility: [facility] Address:[address] [place], [place] [address]Performed By: #### [id number] ####[facility] LABCLIA [id number] [place] [address] [place] AMERICAUrate SerPl-mCncon 07-14-2022 Urate [Mass/Vol]6.7 mg/dLHigh2.5-6.6COhioHealth Hardin Memorial Hospital ClevelandComment on above: Order Comment: Specimen Type: BLOOD SPECIMENOrdering Facility: [facility] Address:[address] [place], [place] [address]Performed By: #### 42091-1, 2731-8, 3084-1 ####[facility] LABCLIA [id number] [place] [address] [place] AMERICAVITAMIN D 25 HYDROXYon [id number]-utdaheojfekjly D3 [Mass/Vol]41.8 ng/mL31.0 - 80.0 ng/mL Miami Valley HospitalCHEMISTRYOrdered By: Lab ROPUser on 78-95-9712Oqeoxlx [Mass/Vol] 72 mg/bIWkppxj66 - 99 mg/dLJEFFERSON COUNTY HOSPITAL – [facility]URI[place] POC SubsectionComment on above:Result Comment: Notified RN/MDPOC Device [id number] Interpretation CodeJEFFERSON COUNTY HOSPITAL – [facility] POC SubsectionPOC User [id number] Interpretation CodeJEFFERSON COUNTY HOSPITAL – [facility] POC SubsectionPOC UsernamCLAY DockeryInvalid Interpretation CodeJEFFERSON COUNTY HOSPITAL – [facility] POC SubsectionCHEMISTRY Ordered By: SYSTEM SYSTEM on 30-68-4052Qnzzo gap [Moles/Vol]11 mmol/LNormal6 - 16 mEq/LFTMC RemisolCalcium [Mass/Vol]9.2 mg/dLNormal8.9 - 11.1 mg/dLJEFFERSON COUNTY HOSPITAL – [facility]URI[facility] RemisolChloride [Moles/Vol]110 mmol/PFlmsuj706 - 111 mmol/LFTMC RemisolCO2 [Moles/Vol]23 mmol/QUeobhr21 - 31 mmol/LFTMC RemisolCreatinine [Mass/Vol]1.8 mg/dLHigh0.5 - 1.3 mg/dLJEFFERSON COUNTY HOSPITAL – [facility] RemisolGFR/1.73 sq M.predicted among blacks MDRD (S/P/Bld) [Vol rate/Area]35 mL/min/1.73 m2Low>=59mL/min/1.73 m2FT Chem S GFR/1.73 sq M.predicted among non-blacks MDRD (S/P/Bld) [Vol rate/Area]29 mL/min/1.73 m2Low>=59mL/min/1.73 m2FT Chem SGlucose [Mass/Vol]78 mg/aTQwnzxf96 - 199 mg/dLFTMC RemisolPotassium [Moles/Vol]5.3 mmol/LNormal3.5 - 5.3 mmol/L FT RemisolSodium [Moles/Vol]139 mmol/PUifmdt010 - 145 mmol/LFTMC RemisolUrea nitrogen [Mass/Vol]22 mg/dLHigh5 - 21 mg/dLFTMC RemisolUrea nitrogen/Creatinine [Mass ratio]12 mg/reRfutey04 - 20[facility] RemisolCOAGULATIONOrdered By: Julieta Muse on 72-59-8425kKFG Coag (PPP) [Time]33.1 cMibxlh71.1 - 36.5 second(s)[facility] Auto CoagINR Coag (PPP) [Relative time]1.0 {INR}Invalid Interpretation CodeFTMC Auto CoagPT Coag (PPP) [Time]10.6 sNormal9.4 - 12.5 second(s)[facility] Auto CoagHEMATOLOGY Ordered By: SYSTEM SYSTEM on 58-14-3905Dfzbioumd/100 WBC (Bld)1.5 %Normal0.0 - 2.0 %[facility] HemeAutoSSBasophils/Leukocytes Auto (Bld) [Pure # fraction]0.1 E9/L Normal0.0 - 0.2 E9/LFTMC HemeAutoSSEosinophils/100 WBC (Bld)4.1 %Normal0.0 - 8.0 %[facility] HemeAutoSSEosinophils/Leukocytes Auto (Bld) [Pure # fraction]0.2 E9/L Normal0.0 - 0.5 E9/LFTMC HemeAutoSSLymphocytes/100 WBC (Bld)40.8 %Ulzhro49.0 - 50.0 %[facility] HemeAutoSSLymphocytes/Leukocytes Auto (Bld) [Pure # fraction]1.6 E9/L Normal1.0 - 4.0 E9/LFTMC HemeAutoSSMonocytes/100 WBC (Bld)7.5 %Normal4.0 - 14.0 %[facility] HemeAutoSSMonocytes/Leukocytes Auto (Bld) [Pure # fraction]0.3 E9/LNormal 0.2 - 1.0 E9/LFTMC HemeAutoSSNeutrophils/100 WBC (Bld)46.1 %Efydqz96.0 - 75.0 % [facility] HemeAutoSSNeutrophils/Leukocytes Auto (Bld) [Pure # fraction]1.8 E9/LLow2.0 - 7.5 E9/LFTMC HemeAutoSSHEMATOLOGYOrdered By: Hugo Shepard on 06-11-2022 Erythrocyte distribution width (RBC) [Ratio]18.0 %High10.9 - 14.2 %[facility] HemeAutoSSHematocrit (Bld) [Volume fraction]33.2 %Low34.0 - 46.0 %[facility] HemeAutoSSHemoglobin (Bld) [Mass/Vol]10.7 g/dLLow12.0 - 16.0 gm/dLFTMC HemeAutoSSMCH (RBC) [Entitic mass]26.2 pgLow27.0 - 34.0 pgFTMC HemeAutoSSMCHC (RBC) [Mass/Vol]32.3 g/yIRluxtl70.4 - 36.0 gm/dLFTMC HemeAutoSSMCV (RBC) [Entitic vol]81.1 sXDsslbq94.0 - 100.0 fLFTMC HemeAutoSSPlatelet mean volume (Bld) [Entitic vol]7.3 fLNormal6.4 - 10.8 fLFTMC HemeAutoSSPlatelets (Bld) [#/Vol]311.0 E9/FXwexuc576.0 - 500.0 E9/LFTMC HemeAutoSSRBC (Bld) [#/Vol]4.1 E12/LLow4.3 - 5.9 E12/LFTMC HemeAutoSSWBC corrected for nucl RBC Auto (Bld) [#/Vol]4.0 E9/LNormal4.0 - 11.0 E9/LFTMC HemeAutoSSURINALYSISOrdered By: Julieta Muse on 96-32-1861Wjpcxpzh LM Ql (Urine sed)3+ /HPFInvalid Interpretation Code Trace/HPFFT UA Auto SSBilirubin Ql (U)Negative (06/11/22 9:56 AM)NormalNegativeJEFFERSON COUNTY HOSPITAL – [facility] UA Auto SSClarity (U)Slightly Cloudy *ABN* (06/11/22 9:56 AM)Invalid Interpretation CodeClearFTMC UA Auto SSColor (U)Yellow (06/11/22 9:56 AM)NormalYellowFT UA Auto SSEpithelial cells.squamous LM.HPF (Urine sed) [#/Area]3-4 /HPFNormal0-2/HPFFT UA Auto SSGlucose Test strip (U) [Mass/Vol]Negative (06/11/22 9:56 AM)NormalNegativeJEFFERSON COUNTY HOSPITAL – [place] UA Auto SSHemoglobin Ql (U)2+ *ABN* (06/11/22 9:56 AM)Invalid Interpretation CodeNegativeJEFFERSON COUNTY HOSPITAL – [place] UA Auto SSKetones (U) [Mass/Vol]Negative (06/11/22 9:56 AM)NormalNegativeJEFFERSON COUNTY HOSPITAL – [place] UA Auto SSLithium.plasma/[place].RBC (Bld) [Mass ratio]4-20 /HPFNormal0-3/HPFFT UA Auto SSNitrite Ql (U)Positive *ABN* (06/11/22 9:56 AM)Invalid Interpretation CodeNegativeFT UA Auto SSpH (U)6.0 *NA* (06/11/22 9:56 AM)Invalid Interpretation Code5.0 - 9.0FT UA Auto SSProtein (U) [Mass/Vol]Trace *ABN* (06/11/22 9:56 AM)Invalid Interpretation CodeNegativeFT UA Auto SSSpecific gravity (U) [Rel density]1.025 *NA* (06/11/22 9:56 AM)Invalid Interpretation Code1.005 - 1.030FT UA Auto SSUA Spec DescClean Catch (06/11/22 9:56 AM)NormalFT UA Auto SSUrobilinogen Qn (U)0.3152275 {Coby'U}/dLNormal0.0 - 1.0 EU/dLJEFFERSON COUNTY HOSPITAL – [facility]URI[place] UA Auto SSWBC Auto Ql (U)3+ *ABN* (06/11/22 9:56 AM)Invalid Interpretation CodeNegativeADCARE HOSPITAL OF WORCESTER Auto SSWBC LM.HPF (Urine sed) [#/Area]/[HPF]Invalid Interpretation Code0-5/HPFJEFFERSON COUNTY HOSPITAL – WAURIKA UA Auto SS Office Visit (Cardiology)on 99-84-6763Ufjbeq-up visitDiagnoses/Problems Assessed Benign essential hypertension (401.1) (I10) Overweight with body mass index (BMI) of 26 to 26.9 in adult (278.02,V85.22) (E66.3,Z68.26) Never a smoker Pre-operative cardiovascular examination (V72.81) (Z01.810) Orders Benign essential hypertension, Pre-operative cardiovascular examination IO EKG Electrocardiogram- 12 Lead; Status:Complete; Done: 57Atf6092 Overweight with body mass index (BMI) of 26 to 26.9 in adult Healthy Weight Tips; Status:Complete - Retrospective Authorization; Done: [id number] Some eating tips that can help you lose weight.; Status:Complete - Retrospective Authorization; Done: 90Pje1820 SocHx: Never a smoker Tobacco Use Screening; Status:Complete; Done: 49Wjq0909 Patient Instructions Please bring all medicines, vitamins, [...] there is no family history of premature coronarydisease. Mother had a vague cardiovascular history of father sounds as if he from complications of alcohol excess. Most importantly she is very aerobically active. [place] the beach several times per week up to 5miles at a time in the soft sand [...] negative for complaint. Vitals Vital Signs Recorded: 43Cyq9306 03:50PMRecorded: 65Vzk2316 03:49PM Quosgovx09, RUE, Npndcik93, LUE, Sitting Jvsauflnl62, RUE, Fxwpzzf34, LUE, Sitting Heart Nvzb204, Apical Height5 ft 3 in Ryiomx368 lb BMI Woqqusmtej82.22 kg/m2 BSA Calculated1.7 Tobacco Useb) No PHQ-2 [...] time . Signatures Electronically (more content not included)...NormalUH TouchworksTobacco Screening.on 48-29-0728Tsjwcil use status CPHSb) NoMP-[facility] [address] DO Work Phone: Tobacco Screening.Yes-[facility] 250 DO Work Phone: XR KUB 1 VIEWon 57-21-2387WB KUB 1 VIEWEXAMINATION: XR KUB 1 VIEW HISTORY: Kidney stone [...] Electronically authenticated by: NATACHA WILD Date: 2022-04-01 08:23[facility] CenterCALCULI, URINARYon ,8 DihydroxyadenineAshtabula County Medical CenterComment on above:Performed By: #### CALCULI #### [facility] [address] [place] [address] [address] Adryan FaustinAmmonium Acid UrateNMiddletown Hospital on above: Performed By: #### CALCULI #### [facility] [address] [place] [address] [address] Adryan FaustinBilirubin Ql (U)[facility] CenterComhurley medical center on above: Performed By: #### CALCULI #### [facility] [address] [place] [address] [address] Adryan Garces Oxalate Jdjwcxpbd99 %[facility] on above:Performed By: #### CALCULI #### [facility] [address] [place] [address] [address] Adryan GarcesHPO4 (Brushite)[facility] CenterComhurley medical center on above: Performed By: #### CALCULI #### [facility] [address] [place] [address] [address] Adryan Caballeroium BilirubinateNMiddletown Hospital on above: Performed By: #### CALCULI #### [facility] [address] [place] [address] [address] Adryan Caballeroium CarbonateDelaware County Hospital on above: Performed By: #### CALCULI #### [facility] [address] [place] [address] [address] Adryan Caballeroium Oxalate Pnlctlopgbw92 %[facility] on above:Performed By: #### CALCULI #### [facility] [address] [place] [address] [address] Adryan Caballeroium PalmitateDelaware County Hospital on above: Performed By: #### CALCULI #### [facility] [address] [place] [address] [address] Adryan Caballeroium PhosphateDelaware County Hospital on above: Performed By: #### CALCULI #### [facility] [address] [place] [address] [address] Adryan FaustinCalcium StearateNMiddletown Hospital on above: Performed By: #### CALCULI #### [facility] [address] [address] [address] Adryan Lantigua ApatiteDelaware County Hospital on above: Performed By: #### CALCULI #### [facility] [address] [address] [address] Adryan Pooleular MaterialDelaware County Hospital on above: Performed By: #### CALCULI #### [facility] [address] [address] [address] Adryan AndersonesterolDelaware County Hospital on above:Performed By: #### CALCULI #### [facility] [address] [address] [address] Adryan Lackey ([facility] on above: Performed By: #### CALCULI #### [facility] [address] [address] [address] [facility]ustinTrinity [facility] on above:Performed By: #### CALCULI #### [facility] [address] [address] [address] Adryan FamTrinity Health System on above:Result Comment: Calculus received wet. Wet calculi must be dried before analysis, which delays reporting of results. Leaving calculi wet (such as water, saline, blood, urine) may lead to changes in composition.Performed By: #### CALCULI #### [facility] [address] [address] [address] Adryan Fam:[facility] on above:Result Comment: Physician questions regarding Calculi Analysis contact [facility] at: [phone].Performed By: #### CALCULI #### [facility] [address] [address] [address] Adryan MuroTrinity Health System on above: Result Comment: Percentage (Represents the % composition)Performed By: #### CALCULI #### [facility] [address] [place] [address] Dr. Adryan FaustinCystineAshtabula County Medical CenterComment on above:Performed By: #### CALCULI #### [facility] [address] [place] [address] Dr. Adryan Armstrong:[facility] on above: Result Comment: This test was developed and its performance characteristics determined by [facility]. It has not been cleared or approved by the Food and Drug Administration.Performed By: #### CALCULI #### [facility] [address] [place] [address] Dr. Adryan Burnettied [facility] HospitalComhur[facility] on above:Performed By: #### CALCULI #### [facility] [address] [place] [address] Dr. Adryan FaustinDrug or MetaboliteAshtabula County Medical CenterComhurley medical center on above: Performed By: #### CALCULI #### [facility] [address] [place] [address] Dr. Adryan FaustinHydroxyapatiteAshtabula County Medical CenterComment on above: Performed By: #### CALCULI #### [facility] [address] [place] [address] Dr. Adryan Thornton NH4 PO4 (Struvite)[facility] CenterComhurley medical center on above: Performed By: #### CALCULI #### [facility] [address] [place] [address] Dr. Adryan FaustinMgHPO4 (Newberyite)[facility] County Medical CenterComment on above: Performed By: #### CALCULI #### [facility] [address] [place] [address] Dr. Adryan FaustinOther component(s)[facility] County Medical CenterComment on above: Performed By: #### CALCULI #### [facility] [address] [place] [address] Dr. Adryan FaustinPDF.[facility] County Medical CenterComment on above:Performed By: #### CALCULI #### [facility] [address] [place] [address] Dr. Adryan CleaningTrinity Health System on above:Result Comment: Photograph will follow under a separate coverPerformed By: #### CALCULI #### [facility] [address] [address] [address] Adryan Guidry note:CommentDelaware County Hospital on above: Result Comment: Calculi report will follow via computer, mail or business architect delivery.Performed By: #### CALCULI #### [facility] [address] [address] [address] Adryan LernerUioliLmvs2d3TiwyakVmg[address] [place] [address] on above:Result Comment: Multiple pieces received. Dimensions of the largest piece reported.Performed By: #### CALCULI #### [facility] [address] [address] [address] Adryan Cerondium Cheyanne UrateNMiddletown Hospital on above: Performed By: #### CALCULI #### [facility] [address] [address] [address] Adryan DriverOhioHealth Mansfield Hospital on above:Result Comment: Left UreterPerformed By: #### CALCULI #### [facility] [address] [address] [address] Ad[facility] HarveySub[facility] on above:Performed By: #### CALCULI #### [facility] [address] [address] [address] Adryan York [facility] on above:Performed By: #### CALCULI #### [facility] [address] [address] [address] Adryan FaustinUric Acid DihydrateNMiddletown Hospital on above: Performed By: #### CALCULI #### [facility] [address] [address] [address] Ad[address] [place], [place] [address]Comhur[facility] medical center on above:Performed By: #### CALCULI #### [facility] [address] [address] [address] Adryan JordannthineDelaware County Hospital on above:Performed By: #### CALCULI #### [facility] [address] [address] [address] Adryan Swanson, URINARYon ,8 DihydroxyadenineDelaware County Hospital on above:Performed By: #### CALCULI #### [facility] [address] [address] [address] Adryan FaustinAmmonium Acid UrateNMiddletown Hospital on above: Performed By: #### CALCULI #### [facility] [address] [address] [address] Adryan FaustinBilirubin Ql (U)[facility] on above: Performed By: #### CALCULI #### [facility] [address] [address] [address] Adryan FaustinCa Oxalate Rgziapnrp85 %[facility] on above:Performed By: #### CALCULI #### [facility] [address] [address] [address] Adryan GarcesHPO4 (Brushite)[facility] on above: Performed By: #### CALCULI #### [facility] [address] [address] [address] Adryan Caballeroium BilirubinateNMiddletown Hospital on above: Performed By: #### CALCULI #### [facility] [address] [address] [address] Adryan Caballeroium CarbonateDelaware County Hospital on above: Performed By: #### CALCULI #### [facility] [address] [address] [address] Adryan FaustinCalcium Oxalate Efkdjynqbci66 %[facility] on above:Performed By: #### CALCULI #### [facility] [address] [address] [address] Adryan Caballeroium PalmitateAshtabula County Medical CenterComhurley medical center on above: Performed By: #### CALCULI #### [facility] [address] [address] [address] Adryan Caballeroium PhosphateAshtabula County Medical CenterComhurley medical center on above: Performed By: #### CALCULI #### [facility] [address] [address] [address] Adryan Caballeroium StearateNSelect Medical Specialty Hospital - AkronComhurley medical center on above: Performed By: #### CALCULI #### [facility] [address] [address] [address] Adryan Liangate ApatiteAshtabula County Medical CenterComhurley medical center on above: Performed By: #### CALCULI #### [facility] [address] [address] [address] Adryan Pooleular MaterialAshtabula County Medical CenterComhurley medical center on above: Performed By: #### CALCULI #### [facility] [address] [address] [address] Adryan FaustinCholesterolDelaware County Hospital on above:Performed By: #### CALCULI #### [facility] [address] [address] [address] Adryan Lackey ([facility] DaytonComhurley medical center on above: Performed By: #### CALCULI #### [facility] [address] [address] [address] Adryan FaustinFulton State HospitalshubhamDelaware County Hospital on above:Performed By: #### CALCULI #### [facility] [address] [address] [address] Adryan FaustinComshubham:[facility] on above:Result Comment: Physician questions regarding Calculi Analysis contact [facility] at: [phone].Performed By: #### CALCULI #### [facility] [address] [address] [address] Adryan MuroSelect Medical Cleveland Clinic Rehabilitation Hospital, AvonComhurley medical center on above: Result Comment: Percentage (Represents the % composition)Performed By: #### CALCULI #### [facility] [address] [place] [address] Dr. Adryan FaustinCystineAshtabula County Medical CenterComment on above:Performed By: #### CALCULI #### [facility] [address] [place] [address] Dr. Adryan Armstrong:[facility] on above: Result Comment: This test was developed and its performance characteristics determined by [facility]. It has not been cleared or approved by the Food and Drug Administration.Performed By: #### CALCULI #### [facility] [address] [place] [address] Dr. Adryan Burnettied [facility] HospitalComhurley medical center on above:Performed By: #### CALCULI #### [facility] [address] [place] [address] Dr. Adryan FaustinDrug or MetaboliteAshtabula County Medical CenterComhurley medical center on above: Performed By: #### CALCULI #### [facility] [address] [place] [address] Dr. Adryan FaustinHydroxyapatiteAshtabula County Medical CenterComment on above: Performed By: #### CALCULI #### [facility] [address] [place] [address] Dr. Adryan Thornton NH4 PO4 (Struvite)[facility] CenterComhurley medical center on above: Performed By: #### CALCULI #### [facility] [address] [place] [address] Dr. Adryan FaustinMgHPO4 (Newberyite)[facility] County Medical CenterComment on above: Performed By: #### CALCULI #### [facility] [address] [place] [address] Dr. Adryan FaustinOther component(s)[facility] County Medical CenterComment on above: Performed By: #### CALCULI #### [facility] [address] [place] [address] Dr. Adryan FaustinPDF.[facility] County Medical CenterComment on above:Performed By: #### CALCULI #### [facility] [address] [place] [address] Dr. Adryan PortilloDelaware County Hospital on above:Result Comment: Photograph will follow under a separate coverPerformed By: #### CALCULI #### [facility] [address] [address] [address] Adryan Guidry note:CommentDelaware County Hospital on above: Result Comment: Calculi report will follow via computer, mail or business architect delivery.Performed By: #### CALCULI #### [facility] [address] [address] [address] Adryan LernerXccboHjdr0q7BqedgvHlh[address] [place] [address] on above:Result Comment: Single piece received.Performed By: #### CALCULI #### [facility] [address] [address] [address] Adryan Sargentum Cheyanne UrateNMiddletown Hospital on above: Performed By: #### CALCULI #### [facility] [address] [address] [address] Adryan SofiaOhioHealth O'Bleness Hospital on above:Result Comment: Right UreterPerformed By: #### CALCULI #### [facility] [address] [address] [address] Adryan HarveySuburban [facility] on above:Performed By: #### CALCULI #### [facility] [address] [address] [address] Adryan York [facility] on above:Performed By: #### CALCULI #### [facility] [address] [address] [address] Adryan FaustinUric Acid DihydrateNMiddletown Hospital on above: Performed By: #### CALCULI #### [facility] [address] [address] [address] Ad[address] [place], [place] [address]Comhurley medical center on above:Performed By: #### CALCULI #### [facility] [address] [address] [address] Ad[address] CohenDayton Osteopathic Hospitale St[facility]S Medical CenterComment on above:Performed By: #### CALCULI #### [facility] [address] [place] [address] Dr. Adryan Roca 14(COMP METB)on [id number] [Mass/Vol]3.4 g/dLNormal 3.4-5.0The St. [facility]S Medical CenterComment on above:Performed By: #### CMP #### [facility] [address] [place] [address] Dr. Adryan FaustinAlbumin/Globulin [Mass ratio]1.0 {ratio}NormalThe St. Mary'S Medical CenterComment on above:Performed By: #### CMP #### [facility] [address] [place] [address] Dr. Adryan NathanP [Catalytic activity/Vol]54 U/ZIkqlgj05-348Shg St[facility]S Medical CenterComment on above:Performed By: #### CMP #### [facility] [address] [place] [address] Dr. Adryan Graff [Catalytic activity/Vol]13 U/LCritically ino99-89Ltk St[facility] Medical CenterComment on above:Performed By: #### CMP #### [facility] [address] [place] [address] Dr. Adryan Katz gap [Moles/Vol]12.5 mmol/LNormalThe [facility] Comment on above:Performed By: #### CMP #### [facility] [address] [place] [address] Dr. Adryan Ratliff [Catalytic activity/Vol]18 U/UDdkkvl38-92Nsr St[facility] Medical CenterComment on above:Performed By: #### CMP #### [facility] [address] [place] [address] Dr. Adryan FaustinBilirubin [Mass/Vol]0.4 mg/dLNormal0.2-1.0The [facility] Comment on above:Performed By: #### CMP #### [facility] [address] [place] [address] Dr. Adryan FaustinCalcium [Mass/Vol]9.0 mg/dLNormal8.5-10.1The [facility] Comment on above:Performed By: #### CMP #### [facility] [address] [place] [address] Dr. Adryan FaustinChloride [Moles/Vol]106 mmol/SSqcqml12-211Igu [facility] Comment on above:Performed By: #### CMP #### [facility] [address] [place] [address] Dr. Adryan FaustinCO2 [Moles/Vol]25.8 mmol/YOhzkbb57.0-32.0The [facility] Comment on above:Performed By: #### CMP #### [facility] [address] [place] [address] Dr. Adryan FaustinCreatinine [Mass/Vol]1.43 mg/dLCritically high0.55-1.02Genesis HospitalComment on above:Performed By: #### CMP #### [facility] [address] [place] [address] Dr. Adryan EngGFR-AF GUZWSYGG12 mL/min/1.00u0Yoiqzxzzal low>=60The St[facility]S Medical CenterComment on above:Performed By: #### CMP #### [facility] [address] [place] [address] Dr. Adryan EngGFR-NON AF DZKGIYKC61 mL/min/1.91e0Sycufakheu low>=60The [facility] Medical CenterComment on above:Performed By: #### CMP #### [facility] [address] [place] [address] Dr. Adryan FaustinGlobulin (S) [Mass/Vol]3.3 g/dLNormalThe St. [facility]'S Medical CenterComment on above:Performed By: #### CMP #### [facility] [address] [place] [address] Dr. Adryan FaustinGlucose [Mass/Vol]83 mg/fMZjxbxs79-884Psf [facility] Comment on above:Performed By: #### CMP #### [facility] [address] [place] [address] Dr. Adryan FaustinPotassium [Moles/Vol]4.3 mmol/LNormal3.5-5.1[facility] Comment on above:Performed By: #### CMP #### [facility] [address] [place] [address] Dr. Adryan FaustinProtein [Mass/Vol]6.7 g/dLNormal6.4-8.2[facility] Comment on above:Performed By: #### CMP #### [facility] [address] [place] [address] Dr. Adryan FaustinSodium [Moles/Vol]140 mmol/NRjwnwc864-250FsvGenesis Hospital Comment on above:Performed By: #### CMP #### [facility] [address] [place] [address] Dr. Adryan FaustinUrea nitrogen [Mass/Vol]12.0 mg/dLNormal7.0-18.0The St[facility] Medical CenterComment on above:Performed By: #### CMP #### [facility] [address] [place] [address] Dr. Adryan Roach nitrogen/Creatinine [Mass ratio]8.4 mg/mgNoUniversity Hospitals TriPoint Medical CenterComment on above:Performed By: #### CMP #### [facility] [address] [place] [address] Dr. Adryan FaustinXR KUB 1 VIEWon [id number] KUB 1 VIEWEXAMINATION: XR KUB 1 VIEW HISTORY: Kidney stone [...] Electronically authenticated by: BRADEN LANGSTON Date: 2022-03-23 07:14[facility] Medical CenterPROF CHEM 8 (BAS METB)on 38-43-1016Uxrls gap [Moles/Vol]11.1 mmol/LNormalGenesis HospitalComment on above:Performed By: #### BMP #### [facility] [address] [address] [address] Adryan FaustinCalcium [Mass/Vol]8.3 mg/dLCritically low8.5-10.1The [facility]S Medical CenterComment on above:Performed By: #### BMP #### [facility] [address] [address] [address] Adryan FaustinChloride [Moles/Vol]112 mmol/LCritically uvon33-389Grb [facility] Medical CenterComment on above:Performed By: #### BMP #### [facility] [address] [address] [address] Adryan FaustinCO2 [Moles/Vol]22.8 mmol/HJdbwgc98.0-32.0The [facility] Comment on above:Performed By: #### BMP #### [facility] [address] [place] [address] Dr. Adryan FaustinCreatinine [Mass/Vol]1.41 mg/dLCritically high0.55-1.02The [facility] CenterComment on above:Performed By: #### BMP #### [facility] [address] [place] [address] Dr. Cornelius ChangEGFR-AF MXWJJJWR25 mL/min/1.67c3Ttllneicxv low>=60The [facility] CenterComment on above:Performed By: #### BMP #### [facility] [address] [place] [address] Dr. Adryan EngGFR-NON AF IVZUYGSJ98 mL/min/1.62f3Nahoguakxf low>=60The [facility] CenterComment on above:Performed By: #### BMP #### [facility] [address] [place] [address] Dr. Adryan FaustinGlucose [Mass/Vol]82 mg/hRUqvjny65-892ThxGenesis Hospital Comment on above:Performed By: #### BMP #### [facility] [address] [address] [address] Adryan FaustinPotassium [Moles/Vol]4.9 mmol/LNormal3.5-5.1The [facility] Comment on above:Performed By: #### BMP #### [facility] [address] [address] [address] Adryan Cerondium [Moles/Vol]141 mmol/SKaqwiw487-383Trp [facility] Comment on above:Performed By: #### BMP #### [facility] [address] [address] [address] Adryan FaustinUrea nitrogen [Mass/Vol]25.0 mg/dLCritically high7.0-18.0The [facility] Medical CenterComment on above:Performed By: #### BMP #### [facility] [address] [place] [address] Dr. Adryan Roach nitrogen/Creatinine [Mass ratio]17.7 mg/mgNormalThe St. [facility]'S Medical CenterComment on above:Performed By: #### BMP #### [facility] [address] [place] [address] Dr. Adryan MoonC AUTO DIFFon [id number] #0.1 103/ulNormal0.0-0.1The [facility]S Medical CenterComment on above:Performed By: #### CBC #### [facility] [address] [place] [address] Dr. Adryan FaustinBasophils/100 WBC (Bld)0.9 %Normal0.2-2.0[facility] Comment on above:Performed By: #### CBC #### [facility] [address] [place] [address] Dr. Adryan Corrigan #0.1 103/ulNormal0.0-0.7The [facility]S Medical CenterComment on above: Performed By: #### CBC #### [facility] [address] [place] [address] Dr. Adryan Engosinophils/100 WBC (Bld)2.3 %Normal0.9-7.0The [facility] Comment on above:Performed By: #### CBC #### [facility] [address] [place] [address] Dr. Adryan Engrythrocyte distribution width (RBC) [Ratio]15.9 %Critically high 11.0-15.0The [facility]S Medical CenterComment on above:Performed By: #### CBC #### [facility] [address] [address] [address] Adryan Diegoatocrit (Bld) [Volume fraction]36.9 %Llpwqo68.0-48.0The [facility]S Medical CenterComment on above:Performed By: #### CBC #### [facility] [address] [place] [address] Dr. Adryan FaustniHemoglobin (Bld) [Mass/Vol]11.3 g/dLCritically low12.0-16.0The [facility] Medical CenterComment on above:Performed By: #### CBC #### [facility] [address] [place] [address] Dr. Adryan Lorenzana #0.01 10e3/ulNormal0.00-0.03The [facility] Medical CenterComment on above:Performed By: #### CBC #### [facility] [address] [place] [address] Dr. Adryan Lorenzana %0.2 %Normal0.0-0.5The [facility]S Medical CenterComment on above: Performed By: #### CBC #### [facility] [address] [place] [address] Dr. Adryan Aragon #1.7 103/ulNormal1.2-3.8The [facility] CenterComhurley medical center on above:Performed By: #### CBC #### [facility] [address] [place] [address] Dr. Adryan Hortonmphocytes/100 WBC (Bld)29.6 %Ctgpbf81.5-60.0The [facility]S Medical CenterComment on above:Performed By: #### CBC #### [facility] [address] [place] [address] Dr. Adryan HdezUAL DIFF REQNONormalThe St. [facility]'S Medical CenterComment on above: Performed By: #### CBC #### [facility] [address] [place] [address] Dr. Adryan Quinones (RBC) [Entitic mass]24.1 pgCritically low26.7-34.0The Harvel HospitalComment on above:Performed By: #### CBC #### [facility] [address] [place] [address] Dr. Adryan Vaughn (RBC) [Mass/Vol]30.6 g/yAXdaazh73.9-35.2The [facility] Medical CenterComment on above:Performed By: #### CBC #### [facility] [address] [place] [address] Dr. Adryan Vaughn (RBC) [Entitic vol]78.8 fLCritically low81.0-99.0The [facility]S Medical CenterComment on above:Performed By: #### CBC #### [facility] [address] [place] [address] Dr. Adryan Wilkes #0.4 103/ulNormal0.3-0.8The [facility]S Medical CenterComment on above:Performed By: #### CBC #### [facility] [address] [place] [address] Dr. Adryan Cortesocytes/100 WBC (Bld)7.5 %Normal1.7-12.0The [facility] Comment on above:Performed By: #### CBC #### [facility] [address] [place] [address] Dr. Adryan Salgado #3.3 103/ulNormal1.4-6.5The [facility]S Medical CenterComment on above:Performed By: #### CBC #### [facility] [address] [place] [address] Dr. Adryan Cooperutrophils/100 WBC (Bld)59.5 %Ebvify82.0-75.0The [facility]S Medical CenterComment on above:Performed By: #### CBC #### [facility] [address] [place] [address] Dr. Adryan Mcbridelet mean volume (Bld) [Entitic vol]8.5 fLCritically low 9.5-13.5The [facility] Medical CenterComment on above:Performed By: #### CBC #### [facility] [address] [place] [address] Dr. Adryan FaustniPLT320 103/fxTqvicl255-629Xmp St[facility] Medical CenterComment on above: Performed By: #### CBC #### [facility] [address] [place] [address] Dr. Adryan FaustinRBC4.68 106/ulNormal4.20-5.40The [facility]S Medical CenterComment on above:Performed By: #### CBC #### [facility] [address] [address] [address] Adryan FaustinWBC5.6 103/ulNormal4.0-11.0The [facility]S Medical CenterComment on above: Performed By: #### CBC #### [facility] [address] [place] [address] Dr. Adryan FaustinCT ABD/PELVIS WO CONon [id number] ABD/PELVIS WO CONEXAMINATION: CT ABD/PELVIS WO CON HISTORY: UNSPECIFIED ABDOMINAL [...] Electronically authenticated by: NATACHA WILD Date: 2022-03-19 09:58NormVan Wert County Hospital HospitalCULTURE URINEon [id number] URINECulture Observations: NO GROWTHNoUniversity Hospitals TriPoint Medical CenterComment on above:Performed By: #### CALCULI #### [facility] [address] [address] [address] Adryan Medel-19 PCR ([facility])on [id number]-CoV-2 (COVID-19) RNA GOOD+probe Ql (Unsp spec)Not detectedNormalNOT DETECTEDThe [facility] Comment on above:Result Comment: When diagnostic testing is negative, the [...] for this test is supported by the Acid Tender of Health and Human Service's declaration that circumstances exist to justify the emergency use of in vitro diagnostics for the detection and/or diagnosis of the virus that causes COVID-19. This EUA will remain in effect for the duration of the COVID-19 declaration justifying emergency of IVDs, unless it is terminated or revoked by the FDA (after which the test may no longer be used).Performed By: #### CALCULI #### [facility] [address] [address] [address] Cornelius ChangER URINE PROFILEon 29-52-2873Hyyftcesl Ql (U)MODERATEAbnormal NEGATIVEGenesis HospitalComment on above:Performed By: #### ERUR, UMICRO #### [facility] [address] [address] [address] Adryan Hendersonarity (U)CLEARNormalCLEARGenesis HospitalComment on above: Performed By: #### ERUR, UMICRO #### [facility] [address] [address] [address] Adryan Lackey (U)DK. YELLOWNormalYELLOWGenesis HospitalComment on above:Performed By: #### REVAR, UMICRO #### [facility] [address] [place] [address] Dr. Adryan Priest micrscopic examination will be performed if indicated. NormalThe St. Mary'S Medical CenterComment on above:Performed By: #### BRYAN, UMICRO #### [facility] [address] [address] [address] Adryan FaustinGlucose Ql (U)NegativeNormalNEGATIVEGenesis HospitalComment on above:Performed By: #### REVAR, UMICRO #### [facility] [address] [place] [address] Dr. Adryan FaustinHemoglobin Ql (U)LARGEAbnormalNEGATIVEOhiohealth Southeastern Medical Center on above:Performed By: #### ERUR, UMICRO #### [facility] [address] [address] [address] Adryan FaustinKetones Ql (U)TRACEAbnormalNEGATIVEGenesis HospitalComment on above:Performed By: #### ERUR, UMICRO #### [facility] [address] [address] [address] Adryan FaustinLEUKOCYTESTRACEAbnormalNEGATIVEGenesis HospitalComhurley medical center on above:Performed By: #### ERUR, UMICRO #### [facility] [address] [address] [address] Adryan FaustinNitrite Ql (U)NegativeNormalNEGATIVEThe Harvel HospitalComment on above:Performed By: #### BRYAN UMICRO #### [facility] [address] [place] [address] Dr. Adryan FaustinpH (U)5.5 [pH]Normal5-9The St. [facility]'S Medical CenterComment on above: Performed By: #### BRYAN UMICRO #### [facility] [address] [place] [address] Dr. Adryan FaustinProtein (U) [Mass/Vol]100 mg/dLAbnormalNEGATIVE/ TRACEThe St. [facility]'S Medical CenterComment on above:Performed By: #### BRYAN UMICRO #### [facility] [address] [place] [address] Dr. Adryan FaustinSPEC GRAVITY>=1.701Deznisav0.005-<=1.025The [facility] on above:Performed By: #### CHRISTINA ADAMSRO #### [facility] [address] [place] [address] Dr. Adryan Copeland MICRO INDINDICATEDAshtabula County Medical CenterComment on above: Performed By: #### BRYAN UMICRO #### [facility] [address] [place] [address] Dr. Adryan Viveros Qn (U)1.0 {Coby'U}/dLNormal0.2 - 1.0The [facility]'S Medical CenterComment on above:Performed By: #### CHRISTINA ADAMSRO #### [facility] [address] [place] [address] Dr. Adryan Roca 14(COMP METB)on 16-51-0314Rjfvcio [Mass/Vol]3.7 g/dLNormal 3.4-5.0The St. [facility]'S Medical CenterComment on above:Performed By: #### CMP #### [facility] [address] [place] [address] Dr. Adryan FaustinAlbumin/Globulin [Mass ratio]1.0 {ratio}NormalThe St. Mary'S Medical CenterComment on above:Performed By: #### CMP #### [facility] [address] [address] [address] Adryan NathanP [Catalytic activity/Vol]60 U/GFcdcnr62-109Khk St[facility]S Medical CenterComment on above:Performed By: #### CMP #### [facility] [address] [place] [address] Dr. Adryan NathanT [Catalytic activity/Vol]17 U/QIyidin81-39Lpj St[facility]S Medical CenterComment on above:Performed By: #### CMP #### [facility] [address] [place] [address] Dr. Adryan Marshon gap [Moles/Vol]14.6 mmol/LNormalGenesis Hospital Comment on above:Performed By: #### CMP #### [facility] [address] [place] [address] Dr. Adryan FaustinAST [Catalytic activity/Vol]18 U/KAjtjle07-08Rgz [facility]S Medical CenterComment on above:Performed By: #### CMP #### [facility] [address] [place] [address] Dr. Adryan FaustinBilirubin [Mass/Vol]0.5 mg/dLNormal0.2-1.0[facility] Comment on above:Performed By: #### CMP #### [facility] [address] [place] [address] Dr. Adryan FaustinCalcium [Mass/Vol]9.2 mg/dLNormal8.5-10.1[facility] Comment on above:Performed By: #### CMP #### [facility] [address] [place] [address] Dr. Adryan FaustinChloride [Moles/Vol]105 mmol/SBhkccf72-445Agb [facility] Comment on above:Performed By: #### CMP #### [facility] [address] [place] [address] Dr. Adryan FaustinCO2 [Moles/Vol]24.1 mmol/ALcqzic51.0-32.0The [facility] Comment on above:Performed By: #### CMP #### [facility] [address] [place] [address] Dr. Adryan FaustinCreatinine [Mass/Vol]1.97 mg/dLCritically high0.55-1.02Genesis HospitalComment on above:Performed By: #### CMP #### [facility] [address] [address] [address] Adryan EngGFR-AF QGCIAGHE98 mL/min/1.17f7Ylfrfbhygq low>=60The St. [facility]S Medical CenterComment on above:Performed By: #### CMP #### [facility] [address] [address] [address] Adryan EngGFR-NON AF RZHQRGXU78 mL/min/1.77h6Bzgekthkks low>=60The St[facility] CenterComment on above:Performed By: #### CMP #### [facility] [address] [address] [address] Adryan FaustinGlobulin (S) [Mass/Vol]3.8 g/dLNormalThMansfield HospitalComment on above:Performed By: #### CMP #### [facility] [address] [address] [address] Adryan FaustinGlucose [Mass/Vol]91 mg/rGIegcek54-027JdvGenesis Hospital Comment on above:Performed By: #### CMP #### [facility] [address] [address] [address] Adryan FaustinPotassium [Moles/Vol]4.7 mmol/LNormal3.5-5.1[facility] Comment on above:Performed By: #### CMP #### [facility] [address] [address] [address] Adryan FaustinProtein [Mass/Vol]7.5 g/dLNormal6.4-8.2The [facility] Comment on above:Performed By: #### CMP #### [facility] [address] [address] [address] Adryan FaustinSodium [Moles/Vol]139 mmol/DAjihll368-339OahGenesis Hospital Comment on above:Performed By: #### CMP #### [facility] [address] [address] [address] Yilan ChangUrea nitrogen [Mass/Vol]32.0 mg/dLCritically high7.0-18.0The St[facility]S Medical CenterComment on above:Performed By: #### CMP #### [facility] [address] [place] [address] Dr. Adryan Roach nitrogen/Creatinine [Mass ratio]16.2 mg/mgNoUniversity Hospitals TriPoint Medical CenterComment on above:Performed By: #### CMP #### [facility] [address] [place] [address] Dr. Adryan Gay MICROSCOPIC ONLYon 01-30-0085BLHUPHUSBBDSEFqkqspinBBBA SEEN The [facility]S Medical CenterComhurley medical center on above:Performed By: #### CHRISTINA ADAMSRO #### [facility] [address] [place] [address] Dr. Adryan Vieyra identified Cx Nom (U)INDICATEDNoUniversity Hospitals TriPoint Medical CenterComhurley medical center on above:Performed By: #### CHRISTINA ADAMSRO #### [facility] [address] [place] [address] Dr. Adryan Higginbotham SEENNormalNONE SEENGenesis HospitalComhurley medical center on above:Performed By: #### CHRISTINA ADAMSRO #### [facility] [address] [place] [address] Dr. Adryan Hackett LM Nom (Urine sed)NONE SEENNormalNONE SEENGenesis HospitalComhurley medical center on above:Performed By: #### CHRISTINA ADAMSRO #### [facility] [address] [place] [address] Dr. Adryan Mitchellthelial cells LM Ql (Urine sed)FEWAbnormalNONE SEEN /RAREThe St. [facility]S Medical CenterComhurley medical center on above:Performed By: #### CHRISTINA ADAMSRO #### [facility] [address] [place] [address] Dr. Adryan Rosenberg SEENNormalNONE SEENGenesis HospitalComhurley medical center on above:Performed By: #### CHRISTINA ADAMSRO #### [facility] [address] [place] [address] Dr. Adryan FaustinInxwkSNI34-778Caepfded8-2Nff St[facility]S Medical CenterComment on above: Performed By: #### VERONICA ADAMS #### [facility] [address] [address] [address] Adryan FaustinWBC5-10AbnormalNONE SEENGenesis HospitalComhurley medical center on above: Performed By: #### VERONICA ADAMS #### [facility] [address] [place] [address] Dr. Adryan FaustinMICROALBUMIN/ CREATININE RATIOon 33-96-4032Cbwuhoc, Urine21.0 ug/mLNormalNot Estab.Genesis HospitalComhurley medical center on above:Performed By: #### MALBCRL #### [facility] [address] [place] [address] Dr. Adryan FaustinAlbumin/ Creatinine Ratio18 mg/g creatNormal0-29The St. [facility]S Medical CenterComment on above:Result Comment: Normal: 0 - 29 Moderately increased: 30 - 300 Severely increased: >300Performed By: #### MALBCRL #### [facility] [address] [place] [address] Dr. Adryan FaustinCreatinine, Znxtk657.4 mg/dLNormalNot Estab.The [facility] Comment on above:Performed By: #### MALBCRL #### [facility] [address] [place] [address] Dr. Adryan FaustinGLYCOHEMOGLOBIN A1Con 34-08-4175UAC RECOMMENDATIONSEE BELOWNormal Genesis HospitalComhurley medical center on above:Result Comment: ADA RECOMMENDED LIMIT 4.0 - 6.0 ADA THERAPEUTIC TARGET < 7.0 ACTION SUGGESTED > 7.0Performed By: #### CALCULI #### [facility] [address] [place] [address] Dr. Adryan FaustinGlucose [Mass/Vol]128 mg/dLNormalThe St. [facility]S Medical CenterComhurley medical center on above:Performed By: #### CALCULI #### [facility] [address] [place] [address] Dr. Adryan FaustinHbA1c (Bld) [Mass fraction]6.1 %Normal4.5-6.2The St. [facility]S Medical CenterComment on above:Performed By: #### CALCULI #### [facility] [address] [address] [address] Adryan GarciaID PROFILEon 16-50-5542OJGN-HDL RATIO NORMSEE Mansfield HospitalComment on above:Result Comment: 3.3 - 4.4 LOW RISK 4.4 - 7.1 AVERAGE RISK 7.1 - 11.0 MODERATE RISK >11.0 HIGH RISKPerformed By: #### LIPID, CMP #### [facility] [address] [address] [address] Adryan FaustinCholesterol [Mass/Vol]175 mg/dLNormal<=200The [facility] Comment on above:Performed By: #### LIPID, CMP #### [facility] [address] [address] [address] Adryan FaustinCholesterol in HDL [Mass/Vol]51 mg/uPPdnbcm70-83Wxq St[facility] Medical CenterComment on above:Performed By: #### LIPID, CMP #### [facility] [address] [address] [address] Adryan FaustinCholesterol in LDL [Mass/Vol]113.6 mg/dLAshtabula County Medical CenterComment on above:Performed By: #### LIPID, CMP #### [facility] [address] [address] [address] Adryan Andersonesterdrake.total/Cholesterol in HDL [Mass ratio]3.4 {ratio} NormalThe St. [facility]'S Medical CenterComment on above:Performed By: #### LIPID, CMP #### [facility] [address] [address] [address] Adryan Priest NORMAL> or = 60 mg/dl - LOW CARDIOVASCULAR RISK <40 mg/dl - HIGH CARDIOVASCULAR RISKAshtabula County Medical CenterComment on above:Performed By: #### LIPID, CMP #### [facility] [address] [address] [address] Adryan FaustinLDL CALC NORMALSEE Mansfield HospitalComment on above:Result Comment: <100 mg/dl OPTIMAL 100 - 129 mg/dl NEAR OR ABOVE OPTIMAL 130 - 159 mg/dl BORDERLINE HIGH 160 - 189 mg/dl HIGH >190 mg/dl VERY HIGH Performed By: #### LIPID, CMP #### [facility] [address] [place] [address] Dr. Adryan FaustinTriglyceride [Mass/Vol]52 mg/dLNormal<=150The [facility] Comment on above:Performed By: #### LIPID, CMP #### [facility] [address] [place] [address] Dr. Adryan FaustinVLDL CALC10.4 mg/dLNormalThe St. [facility]S Medical CenterComment on above: Performed By: #### LIPID, CMP #### [facility] [address] [place] [address] Dr. Adryan FaustinPROF 14(COMP METB)on 73-46-8356Ompnjjn [Mass/Vol]3.2 g/dL Critically low3.4-5.0The St[facility]S Medical CenterComment on above:Performed By: #### LIPID, CMP #### [facility] [address] [place] [address] Dr. Adryan FaustinAlbumin/Globulin [Mass ratio]0.9 {ratio}NormalThe St. [facility]'S Medical CenterComment on above:Performed By: #### LIPID, CMP #### [facility] [address] [place] [address] Dr. Adryan Mayer [Catalytic activity/Vol]76 U/DBljluk68-473Pqm St[facility] CenterComment on above:Performed By: #### LIPID, CMP #### [facility] [address] [place] [address] Dr. Adryan Graff [Catalytic activity/Vol]10 U/LCritically iqs70-78Ftt [facility] Medical CenterComment on above:Performed By: #### LIPID, CMP #### [facility] [address] [place] [address] Dr. Adryan Katz gap [Moles/Vol]12.2 mmol/LNormalThe [facility] Comment on above:Performed By: #### LIPID, CMP #### [facility] [address] [address] [address] Adryan FaustinAST [Catalytic activity/Vol]15 U/CSmmogz22-30Lht [facility] CenterComment on above:Performed By: #### LIPID, CMP #### [facility] [address] [address] [address] Adryan FaustinBilirubin [Mass/Vol]0.4 mg/dLNormal0.2-1.0The [facility] Comment on above:Performed By: #### LIPID, CMP #### [facility] [address] [address] [address] Adryan FaustinCalcium [Mass/Vol]9.0 mg/dLNormal8.5-10.1The [facility] Comment on above:Performed By: #### LIPID, CMP #### [facility] [address] [address] [address] Adryan FaustinChloride [Moles/Vol]106 mmol/ZKomdcx10-983Xwg [facility] Comment on above:Performed By: #### LIPID, CMP #### [facility] [address] [address] [address] Adryan FaustinCO2 [Moles/Vol]27.6 mmol/ITwmkma63.0-32.0The [facility] Comment on above:Performed By: #### LIPID, CMP #### [facility] [address] [address] [address] Adryan FaustinCreatinine [Mass/Vol]1.17 mg/dLCritically high0.55-1.02The [facility] CenterComment on above:Performed By: #### LIPID, CMP #### [facility] [address] [address] [address] Cornelius ChangEGFR-AF BMGJMDAA86 mL/min/1.71d8Jramnobeix low>=60The [facility] CenterComment on above:Performed By: #### LIPID, CMP #### [facility] [address] [address] [address] Adryan EngGFR-NON AF AQBPADYP34 mL/min/1.40v7Qbgrectmop low>=60The [facility] CenterComment on above:Performed By: #### LIPID, CMP #### [facility] [address] [address] [address] Adryan FaustinGlobulin (S) [Mass/Vol]3.7 g/dLNormWVUMedicine Barnesville HospitalComment on above:Performed By: #### LIPID, CMP #### [facility] [address] [address] [address] Adryan FaustinGlucose [Mass/Vol]86 mg/vGNkkalt12-588Nks [facility] Comment on above:Performed By: #### LIPID, CMP #### [facility] [address] [address] [address] Adryan FaustinPotassium [Moles/Vol]4.8 mmol/LNormal3.5-5.1[facility] Comment on above:Performed By: #### LIPID, CMP #### [facility] [address] [address] [address] Adryan FaustinProtein [Mass/Vol]6.9 g/dLNormal6.4-8.2The [facility] Comment on above:Performed By: #### LIPID, CMP #### [facility] [address] [address] [address] Adryan FaustinSodium [Moles/Vol]141 mmol/HWvrqbu858-828TvjGenesis Hospital Comment on above:Performed By: #### LIPID, CMP #### [facility] [address] [address] [address] Adryan FaustinUrea nitrogen [Mass/Vol]13.0 mg/dLNormal7.0-18.0The [facility] CenterComment on above:Performed By: #### LIPID, CMP #### [facility] [address] [address] [address] Adryan Roach nitrogen/Creatinine [Mass ratio]11.1 mg/mgNoUniversity Hospitals TriPoint Medical CenterComment on above:Performed By: #### LIPID, CMP #### [facility] [address] [address] [address] Adryan FaustinUS JUMANA DOP LEG RTon 78-25-0552PG JUMANA DOP LEG RTEXAMINATION: US JUMANA DOP LEG RT HISTORY: Pain [...] Electronically authenticated by: NATACHA WILD Date: 2022-02-02 11:46NormOur Lady of Mercy HospitalARS-CoV-2on 18-59-9000BXPB-CoV-2Not DetectedNoalNOTOhioHealth Arthur G.H. Bing, MD, Cancer CenterComment on above:Result Comment: The specimen is NEGATIVE for SARS-CoV-2, the novel coronavirus associated with COVID-19. A negative result does not rule out COVID-19. Jonathan SARS-CoV-2 for use on the Jonathan [employer] is a real-time RT-PCR test intended for the qualitative detection of nucleic acids from SARS-CoV-2 in clinician-collected nasal, nasopharyngeal, and oropharyngeal swab specimens from individuals who meet COVID-19 clinical and/or epidemiological criteria. Jonathan SARS-CoV-2 is for use only under Emergency [...] this assay. Fact sheet for Healthcare Providers: https://www.fda.gov/media/919438/download Fact sheet for Patients: https://www.fda.gov/media/705133/download METHODOLOGY: RT-PCRPerformed By: #### ACOV #### [facility] [address] [place] [address] Bsa Officer: CECE HillAPDQYF-NsE-8PipjbrShvklAdena Regional Medical Center Comment on above:Performed By: #### ACOV #### [facility] [address] [place] [address] Bsa Officer: ALEX HillCoV-2on 36-78-8540ZYVQ-CoV-2 Source .NASOPHARYNGEAL SWABNoKettering Health DaytonComment on above: Performed By: #### ACOV #### [facility] [address] [place] [address] Bsa Officer: ALEX HillCoV-2on 54-36-0970LANF-CoV-2Not DetectedNoDammasch State HospitalComment on above:Result Comment: The specimen is NEGATIVE for SARS-CoV-2, the novel coronavirus associated with COVID-19. A negative result does not rule out COVID-19. Jonathan SARS-CoV-2 for use on the Jonathan [employer] is a real-time RT-PCR test intended for the qualitative detection of nucleic acids from SARS-CoV-2 in clinician-collected nasal, nasopharyngeal, and oropharyngeal swab specimens from individuals who meet COVID-19 clinical and/or epidemiological criteria. Jonathan SARS-CoV-2 is for use only under Emergency [...] this assay. Fact sheet for Healthcare Providers: https://www.fda.gov/media/991052/download Fact sheet for Patients: https://www.fda.gov/media/600936/download METHODOLOGY: RT-PCRPerformed By: #### COVID #### [facility] [address] [place] [id number] Bsa Officer: ALEX CoronadoCoV-2NAdena Regional Medical Center Comment on above:Performed By: #### COVID #### [facility] [address] [place] [id number] Bsa Officer: Gena Coronado-2on 28-69-4216ZLLM-CoV-2 Source .NASOPHARYNGEAL SWABSumma Health Akron CampusComment on above: Performed By: #### COVID #### [facility] [address] [place] [id number] Bsa Officer: Melchor Coronado2on 68-77-7262LUEC-CoV-2Not Detected NormalNOTDERiverview Health InstituteComment on above:Result Comment: The specimen is NEGATIVE for SARS-CoV-2, the novel coronavirus associated with COVID-19. A negative result does not rule out COVID-19. Jonathan SARS-CoV-2 for use on the Jonathan [employer] is a real-time RT-PCR test intended for the qualitative detection of nucleic acids from SARS-CoV-2 in clinician-collected nasal, nasopharyngeal, and oropharyngeal swab specimens from individuals who meet COVID-19 clinical and/or epidemiological criteria. Jonathan SARS-CoV-2 is for use only under Emergency [...] this assay. Fact sheet for Healthcare Providers: https://www.fda.gov/media/626345/download Fact sheet for Patients: https://www.fda.gov/media/938463/download METHODOLOGY: RT-PCRPerformed By: #### COVID #### [facility] [address] [place] [phone] Bsa Officer: Melchor Coronado2NAdena Regional Medical Center Comment on above:Performed By: #### COVID #### [facility] [address] [place] [id number] Bsa Officer: ALEX CoronadoCoV-2,RapidNoKettering Health DaytonComment on above:Performed By: #### COVID #### [facility] [address] [place] [address] Bsa Officer: Gena Coronado-2on 32-95-8365RSTK-CoV-2 Source .NASOPHARYNGEAL SWABNoKettering Health DaytonComment on above: Performed By: #### COVID #### [facility] [address] [place] [id number] Bsa Officer: ALEX CoronadoCoV-2on 61-00-0720MFAA-CoV-2NormalMemorial Health System Marietta Memorial HospitalComment on above:Performed By: #### COVID #### [facility] [address] [place] [id number] Bsa Officer: Melchor Coronado2Not DetectedNormalNOTDERiverview Health InstituteComment on above:Result Comment: The specimen is NEGATIVE for SARS-CoV-2, the novel coronavirus associated with COVID-19. A negative result does not rule out COVID-19. Jonathan SARS-CoV-2 for use on the Jonathan [employer] is a real-time RT-PCR test intended for the qualitative detection of nucleic acids from SARS-CoV-2 in clinician-collected nasal, nasopharyngeal, and oropharyngeal swab specimens from individuals who meet COVID-19 clinical and/or epidemiological criteria. Jonathan SARS-CoV-2 is for use only under Emergency [...] this assay. Fact sheet for Healthcare Providers: https://www.fda.gov/media/970605/download Fact sheet for Patients: https://www.fda.gov/media/329532/download METHODOLOGY: RT-PCRPerformed By: #### COVID #### [facility] [address] [place], [place] [id number] Bsa Officer: Ankush Moser LTUXSO-HjZ-6,RapidNoKettering Health DaytonComment on above:Performed By: #### COVID #### [facility] [address] [place] [address] Bsa Officer: Ankushkristi Moser KPCATW-TuC-8bo 10-12-7564HJZF-CoV-2 Source .NASOPHARYNGEAL SWABNormalMemorial Health System Marietta Memorial HospitalComment on above: Performed By: #### COVID #### [facility] [address] [place] [id number] Bsa Officer: ROLY CoronadoARS-CoV-2on 50-23-1224YFTR-CoV-2Not Detected NormalNot [facility] Medical CenterComment on above:Result Comment: (NOTE) This nucleic acid amplification test was developed and its performance characteristics determined by [employer]. Nucleic acid amplification tests include PCR and [...] detected) result in this assay. Performed At: [facility] [address] [facility], [place] [id number] Camryn Nieto MD Ph:[phone] By: #### ACOV #### [facility] [address], [place] [id number] Bsa Officer: CECE Hill-CoV-2on 84-71-3172QLKF-CoV-2Not DetectedNormal Not DetectedMemorial Health System Marietta Memorial HospitalComment on above:Result Comment: (NOTE) This nucleic acid amplification test was developed and its performance characteristics determined by [employer]. Nucleic acid amplification tests include PCR and [...] detected) result in this assay. Performed At: [facility] [address] [facility] [place] [id number] Camryn Nieto MD Ph:[phone] By: #### ACOV #### [facility] [address] [place] [address] Bsa Officer: CECE Hill-CoV-2on 30-20-4077FNHD-CoV-2Not DetectedNormal Not DetectedMemorial Health System Marietta Memorial HospitalComhurley medical center on above:Result Comment: (NOTE) This nucleic acid amplification test was developed and its performance characteristics determined by [employer]. Nucleic acid amplification tests include PCR and [...] detected) result in this assay. Performed At: [facility] [address] [facility], [place] [id number] Camryn Nieto MD Ph:[phone] By: #### ACOV #### [facility] [address], [place] [address] Bsa Officer: ROLY HillARS-CoV-2on 15-64-3566NGCZ-CoV-2Not DetectedNormal Not DetectedMerGlendale Memorial Hospital and Health CenterComment on above:Result Comment: (NOTE) This nucleic acid amplification test was developed and its performance characteristics determined by [employer]. Nucleic acid amplification tests include PCR and [...] detected) result in this assay. Performed At: [employer] [place] [id number] Jefry Shirley PhD Ph:[phone] By: #### ACOV #### [facility] [address] [place] [address] Bsa Officer: CECE Hill-CoV-2on 27-03-0081YXFE-CoV-2Not DetectedNormal Not DetectedMemorial Health System Marietta Memorial HospitalComment on above:Result Comment: (NOTE) This nucleic acid amplification test was developed and its performance characteristics determined by [employer]. Nucleic acid amplification tests include PCR and [...] detected) result in this assay. Performed At: [facility] [address] [facility] [place] [id number] Camryn Nieto MD Ph:[phone] By: #### ACOV #### [facility] [address] [place] [address] Bsa Officer: CECE Hill-CoV-2on 09-42-1859IMDZ-CoV-2Not DetectedNormal Not DetectedMemorial Health System Marietta Memorial HospitalComment on above:Result Comment: (NOTE) This nucleic acid amplification test was developed and its performance characteristics determined by [employer]. Nucleic acid amplification tests include PCR and [...] in this assay. Performed At: [facility] [address] [place], [place] [id number] Eunnguyễn Benjamin [facility] Ph:[phone] By: #### ACOV #### [facility] [address] [place], [place] [address] Bsa Officer: ROLY HillARS-CoV-2on 04-13-8454XSEQ-CoV-2Not DetectedNormal Not DetectedMerGlendale Memorial Hospital and Health CenterComment on above:Result Comment: (NOTE) This nucleic acid amplification test was developed and its performance characteristics determined by [employer]. Nucleic acid amplification tests include PCR and [...] detected) result in this assay. Performed At: [facility] [address] [facility] [place] [id number] Camryn Nieto MD Ph:[phone] By: #### ACOV #### [facility] [address] [place], [place] [address] Bsa Officer: Hugo Welch MD Vital Signs Date TimeVital SignValuePerforming IhwyzjiexSwylqdwz32-67-1015 14:38-0400Body neqjou062 cmEdaviva Marley MD Work Phone: 1(539)[facility] CenterDgbpfagowt83-42-2246 14:38-0400Body mass index (BMI) [Ratio]27.1 kg/a8SvoboxJustin Marley MD Work Phone: 1(859)[facility] CenterEiqdtwpwsm67-79-8018 14:38-0400Body sykkhr94.4 kg Justin Marley MD Work Phone: 1(666)[facility] CenterMlphsvesdv44-22-6505 14:38-0400Diastolic blood mlkznmke50 mm[Hg]Justin Marley MD Work Phone: 1(518)[facility] CenterTqzcrmjksi69-55-7780 14:38-0400Systolic blood mm[Hg]Justin Marley MD Work Phone: 1(699)[facility] CenterGgkgnyeepy78-91-5627 14:04-0500Body cm Justin Marley MD Work Phone: 1(760)[facility] CenterWgodcvonzj36-23-8920 14:04-0500Body mass index (BMI) [Ratio]25.95 kg/g6QfakzcJustin Marley MD Work Phone: 1(245)[facility] CenterUepzyxmfuc22-67-7319 14:04-0500Body xteshh24.45 kgJustin Marley MD Work Phone: 1(390)[facility] CenterOikvnjezui06-92-3792 14:04-0500Heart rate73 /min Justin Marley MD Work Phone: 1(333)[place] [address]Hulxamxqkj20-43-7501 14:04-3335GlA1% (BldA) [Mass fraction]96 %Justin Marley MD Work Phone: 1(235)[address] [place], [place] 1481511-17-2024 07:36-0500Body temperature 97.8 [degF]Justin Marley MD Work Phone: 1(603)[address] [place], [place] 7133411-17-2024 07:36-0500 Diastolic blood ohnojxjl82 mm[Hg]Justin Marley MD Work Phone: 1(546)[address] [place], [place] [address]3411-17-2024 07:36-0500 Heart rate85 /Flower Marley MD Work Phone: 1(872)[address] [place], [place] [address]3411-17-2024 07:36-0500 Respiratory rate16 /Flower Marley MD Work Phone: 1(177)[address] [place], [place] [address]11-17-2024 07:36-0500 SaO2% (BldA) [Mass fraction]98 %Justin Marley MD Work Phone: 1(707)[address] [place], [place] [address]3411-17-2024 07:36-0500 Systolic blood frkuzaic440 mm[Hg]Justin Marley MD Work Phone: 1(381)[address] [place], [place] 7133411-17-2024 06:00-0500 Body ktyahs55.2 kgJustin Marley MD Work Phone: 1(573)[address] [place], [place] 7133411-15-2024 16:07-0500 Body pjbrow998.02 cmEstorm Marley MD Work Phone: 1(450)[address] [place], [place] 7133411-14-2024 22:00-0500 Diastolic blood zpsknbfa30 mm[Hg]Justin Marley MD Work Phone: 1(462)[address] [place], [place] 7133411-14-2024 22:00-0500 Heart rate76 /Flower Marley MD Work Phone: 1(410)[address] [place], [place] 7133411-14-2024 22:00-0500 Respiratory rate18 /Flower Marley MD Work Phone: 1(329)[address] [place], [place] 7133411-14-2024 22:00-0500 SaO2% (BldA) [Mass fraction]100 %Justin Marley MD Work Phone: 1(526)[address] [place], [place] 7133411-14-2024 22:00-0500 Systolic blood mm[Hg]Justin Marley MD Work Phone: 1(729)[address] [place], [place] 7133411-14-2024 19:30-0500 Body hycbaqkgzxn44.9 [degF]Justin Marley MD Work Phone: 1(480)[address] [place], [place] 7133411-14-2024 15:32-0500 Body weelyi439.02 Jodee Marley MD Work Phone: 1(850)[address] [place], [place] 7133411-14-2024 15:32-0500 Body lfoogn05 kgJustin Marley MD Work Phone: 1(246)[address] [place], [place] 7133411-14-2024 14:31-0500 Body .02 Jodee Marley MD Work Phone: 1(944)[address] [place], [place] 7133411-14-2024 14:31-0500 Body mass index (BMI) [Ratio]26.4 kg/g5HhijekJustin Marley MD Work Phone: 1(415)[address] [place], [place] 7133411-14-2024 14:31-0500 Body txpgszpmeix494 [degF]Justin Marley MD Work Phone: 1(945)[address] [place], [place] 7133411-14-2024 14:31-0500 Body heeqcn17.58 kgJustin Marley MD Work Phone: 1(113)[address] [place], [place] 7133411-14-2024 14:31-0500 Heart rate81 /Flower Marley MD Work Phone: 1(844)[address] [place], [place] 7133411-14-2024 14:31-0500 Respiratory rate16 /Flower Marley MD Work Phone: 1(950)[address] [place], [place] 7133411-14-2024 14:31-0500 SaO2% (BldA) [Mass fraction]97 %Justin Marley MD Work Phone: 1(567)[address] [place], [place] 7133409-03-2024 14:36-0400 Body xirjap476 cmEdaviva Marley MD Work Phone: 1(775)[address] [place], [place] 1481509-03-2024 14:36-0400Body mass index (BMI) [Ratio]25.95 kg/o6PfjxhcJustin Marley MD Work Phone: 1(139)[address] [place], [place] 1481509-03-2024 14:36-0400Body kjlzbi92.45 kgJustin Marley MD Work Phone: 1(756)[address] [place], [place] 1481509-03-2024 14:36-0400Diastolic blood rixsytvv81 mm[Hg]Justin Marley MD Work Phone: 1(721)[address] [place], [place] 1481509-03-2024 14:36-0400Heart rate72 /min Justin Marley MD Work Phone: 1(471)[address] [place], [place] 1481509-03-2024 14:36-3826DuD4% (BldA) [Mass fraction]96 %Justin Marley MD Work Phone: 1(533)[address] [place], [place] 1481509-03-2024 14:36-0400Systolic blood ztcmeajc448 mm[Hg]Justin Marley MD Work Phone: 1(755)[address] [place], [place] 1481505-30-2024 13:05-0400Body zipdqo441.02 cmMD Justin Marley Work Phone: 1(374)[address] [place], [place] 7133405-30-2024 13:05-0400 Body mass index (BMI) [Ratio]23.8 kg/m2MD Justin Marley Work Phone: 1(332)[address] [place], [place] 7133405-30-2024 13:05-0400 Body dtrjnoyzits10.3 [degF]MD Justin Marley Work Phone: 1(331)[address] [place], [place] 7133405-30-2024 13:05-0400 Body yoxfzu56.95 kgMD Justin Marley Work Phone: 1(668)[address] [place], [place] 7133405-30-2024 13:05-0400 Diastolic blood upqyuntn03 mm[Hg]MD Justin Marley Work Phone: [facility]05-30-2024 13:05-0400 Heart rate67 /minMD Justin Marley Work Phone: [facility]05-30-2024 13:05-0400 Respiratory rate16 /minMD Justin Marley Work Phone: 1(903)[address]05-30-2024 13:05-0400 SaO2% (BldA) [Mass fraction]97 %MD Justin Marley Work Phone: [phone]05-30-2024 13:05-0400 Systolic blood bhocvudl576 mm[Hg]MD Justin Marley Work Phone: 1(129)[address] [place], [place] 3385704-11-2024 15:05-0400 Body ediavr39.02 [facility]20[facility] 15:05-0400 Diastolic blood dbqqeogk80 mm[Hg][facility]04-11-2024 15:05-0400Heart rate83 /min[facility]04-11-2024 15:05-3428FsI3% (BldA) [Mass fraction]99 %[facility] 09-02-2023 15:05-0400Systolic blood mm[Hg][facility]01-29-2024 10:55-0500Body rwecqf906 cmEstorm Marley MD Work Phone: [facility] CenterHcvnqkmqpf71-22-7806 10:55-0500Body mass index (BMI) [Ratio]22.67 kg/d9BymlaiJustin Marley MD Work Phone: 1([phone] CenterUyhzorjfmp66-52-9848 10:55-0500Body dhkaes20.06 kgJustin Marley MD Work Phone: 1(759)8441[facility] CenterPyumzvrcvp24-30-7457 10:55-0500Diastolic blood jvooxjyp41 mm[Hg]Jutsin Marley MD Work Phone: [facility] CenterTxokpbrzoh01-63-0623 10:55-0500Heart rate82 /min Justin Marley MD Work Phone: [facility] CenterJtzjefirga63-36-7533 10:55-5382DxO7% (BldA) [Mass fraction]96 %Justin Marley MD Work Phone: [facility] CenterOwbkulcobd77-25-7988 10:55-0500Systolic blood ynccptcl462 mm[Hg]Justin Marley MD Work Phone: [facility] CenterQtkmifikjp25-14-4523 13:04-0400Body poggtm605 cm Marley O Larisa PA-C Work Phone: [facility]05-08-2023 13:04-0400Body xdcarn39.78 kgShane O Larisa PA-C Work Phone: [phone]05-08-2023 13:04-0400Diastolic blood fubxivlf57 mm[Hg]Marley O Larisa PA-C Work Phone: [phone]05-08-2023 13:04-0400Heart rate75 /min Marley O Larisa PA-C Work Phone: [phone]05-08-2023 13:04-0400Systolic blood mm[Hg]Marley O Larisa PA-C Work Phone: [phone]04-17-2023 08:55-0400Body rythki69.78 kgShane O Larisa PA-C Work Phone: [phone]04-17-2023 08:55-0400Diastolic blood mm[Hg]Marley O Larisa PA-C Work Phone: [phone]04-17-2023 08:55-0400Heart rate77 /min Marley O Larisa PA-C Work Phone: [phone]04-17-2023 08:55-0400Systolic blood exvkkibi621 mm[Hg]Marley O Larisa PA-C Work Phone: [phone]02-21-2023 10:21-0500Body raygkh116.9 cmSmay Odonnell MD Work Phone: [facility] Uesvgb85-95-0321 10:21-0500Body zzolid91.32 kgSamy Odonnell MD Work Phone: [place] Mtutpa54-85-0934 10:21-0500Diastolic blood mm[Hg]Samy Odonnell MD Work Phone: [place] Dmnqma12-84-7645 10:21-0500Heart rate84 /min Samy Odonnell MD Work Phone: [place] Qkeoap38-22-9767 10:21-0500Systolic blood qusmcykg137 mm[Hg]Samy Odonnell MD Work Phone: [place] Mubwzs54-61-1744 09:14-0500Blood Pressure LocationChalo BLUM [facility]02-14-2023 09:14-0500Diastolic blood razqzemq47 mm[Hg]Chalo BLUM [facility]02-14-2023 09:14-0500Heart rate76 /minChalo BLUM [facility]02-14-2023 09:14-0500Systolic blood npawweuw949 mm[Hg]Chalo BLUM [facility]01-26-2023 13:16-0500Heart rate82 /minChalo BLUM [facility]01-26-2023 13:16-9431NkF3% (BldA) [Mass fraction]99 %Chalo BLUM [facility]01-26-2023 13:16-0500 Respiratory rate16 /minChalo [employer] [facility]01-26-2023 13:15-0500Body gpnegebegsa44.34 [degF]Chalo BLUM [address] [place], [place] [address]1201-26-2023 13:15-0500 Diastolic blood niaijwpc77 mm[Hg]Chalo BLUM [facility]01-26-2023 13:15-0500Mean blood acsppqip439 mm[Hg]Chalo BLUM [address] [place], [place] [address]1201-26-2023 13:15-0500 Systolic blood hsvebxfj834 mm[Hg]Chalo BLUM [address] [place], [place] [address]1201-26-2023 12:25-0500Blood Pressure LocationChalo BLUM [address] [place], [place] 8711201-26-2023 12:25-0500 Diastolic blood ghvrkhix71 mm[Hg]Chalo BLUM [address] [place], [place] [address]1201-26-2023 12:25-0500Heart rate75 /minChalo BLUM [facility]01-26-2023 12:25-0500Mean blood bhyvgyja513 mm[Hg]Chalo BLUM [facility]01-26-2023 12:25-0500 Respiratory rate16 /minChalo BLUM [facility]01-26-2023 12:25-7622TnX1% (BldA) [Mass fraction]100 %Chalo BLUM [facility]01-26-2023 12:25-0500 Systolic blood gpcrfolp108 mm[Hg]Chalo BLUM [facility]01-26-2023 12:20-0500Body vdusrtpoghn15.88 [degF]Chalo BLUM [address] [place], [place] [address]1201-26-2023 12:20-0500 Diastolic blood mm[Hg]Chalo BLUM [facility]01-26-2023 12:20-0500Heart rate73 /minChalo BLUM [facility]01-26-2023 12:20-0500Mean blood mm[Hg]Chalo BLUM [facility]01-26-2023 12:20-0500 Respiratory rate19 /minChalo BLUM [facility]01-26-2023 12:20-3478LiZ3% (BldA) [Mass fraction]100 %Chalo BLUM [facility]01-26-2023 12:20-0500 Systolic blood gsclufct955 mm[Hg]Chalo BLUM [facility]01-26-2023 12:10-0500Mean blood mm[Hg]Chalo BLUM [facility]01-26-2023 12:10-0500 Respiratory rate17 /minChalo BLUM [facility]01-26-2023 12:05-0500 Respiratory rate17 /minChalo BLUM [facility]01-26-2023 11:55-0500Body satuensgilf23.34 [degF]Chalo BLUM [facility]01-26-2023 11:50-0500 Respiratory rate6 /minChalo BLUM [facility]01-26-2023 09:30-0500Mean blood ajbwnbxl14 mm[Hg]Chalo BLUM [facility]01-26-2023 09:30-0500Heart rate78 /minChalo BLUM [address] [place], [place] 8711201-26-2023 09:29-0500Body buvwgnkmjhb79.7 [degF]Chalo BLUM [address] [place], [place] [address]711201-26-2023 09:29-0500Mean blood xsxuxike248 mm[Hg]Chalo BLUM [address] [place], [place] [address]711201-19-2023 09:32-0500 Diastolic blood mm[Hg]Chalo BLUM [address] [place], [place] [address]711201-19-2023 09:32-0500Heart rate79 /minChalo BLUM [address] [place], [place] 8711201-19-2023 09:32-0500Mean blood tdlwasyx343 mm[Hg]Chalo BLUM [address] [place], [place] 8711201-19-2023 09:32-0500 Systolic blood alsdcrli302 mm[Hg]Chalo BLUM [address] [place], [place] 8711201-19-2023 09:32-0500Heart rate85 /minChalo BLUM [address] [place], [place] 8711201-19-2023 09:32-7895HqH8% (BldA) [Mass fraction]98 %Chalo BLUM [address] [place], [place] 8711201-19-2023 09:32-0500Blood Pressure LocationChalo BLUM [address] [place], [place] 8711201-19-2023 09:32-0500Body lvjyzujudqw53.34 [degF]Chalo BLUM [address] [place], [place] [address]711201-19-2023 09:31-0500 Diastolic blood dojsfczj86 mm[Hg]Chalo BLUM [address] [place], [place] 2890601-19-2023 09:31-0500Mean blood mrreqlzi189 mm[Hg]Chalo BLUM [address] [place], [place] [address]711201-19-2023 09:31-0500 Systolic blood gxxshpao277 mm[Hg]Chalo BLUM [facility]01-19-2023 09:31-0500Blood Pressure LocationChalo BLUM [facility]12-13-2022 15:50-0500 Diastolic blood ydrdgegc35 mm[Hg]Balbina Napoles Work Phone: mp123-4343JK-Symbv [place] [employer] [address] DO Work Phone: 1(152) 200-959212-13-2022 15:50-0500Systolic blood xchfsyuv97 mm[Hg] Balbina Napoles Work Phone: mp903-8098ZD-ClfyqCan[facility] [address] DO Work Phone: 1(238) 715-751412-13-2022 15:49-0500Body oxbmfk372.02 cmSteplcemente Napoles Work Phone: mp747-3073XC-IjxdyCanby Medical Center-[place] 250 DO Work Phone: 1(857) 592-379912-13-2022 15:49-0500Body mass index (BMI) [Ratio] 26.22 kg/b9NtjyriaszBalbina Napoles Work Phone: mp214-8869XG-EgjzwCanby Medical Center-[place] 250 DO Work Phone: 1(892) 869-619012-13-2022 15:49-0500Body surface area Derived from formula1.7 k7QhujaengaBalbina Napoles Work Phone: mp529-7703OM-Kqhvr [place] [employer] [address] DO Work Phone: 1(685) 540-286012-13-2022 15:49-0500Body .13 kgBalbina Napoles Work Phone: mp700-6091GE-CjcxkCanby Medical Center-[place] 250 DO Work Phone: 1(109) 780-796712-13-2022 15:49-0500Diastolic blood bdmckinu60 mm[Hg] Balbina Napoles Work Phone: mp140-6785DX-Ozdip [place] [facility] [address] DO Work Phone: 1(647) 818-348212-13-2022 15:49-0500Heart vciy837 /minStepclemente Napoles Work Phone: mp914-3172FD-Sszsa [place] [facility] [address] DO Work Phone: 1(908) 433-367312-13-2022 15:49-0500Systolic blood fnyrzctx05 mm[Hg] Balbina Napoles Work Phone: mp722-6301HL-Jeibb [facility] [address] DO Work Phone: 1(193) 428-932111-25-2022 07:26-0500Diastolic blood vjkjdcah09 mm[Hg] Chalo BLUM [facility]11-25-2022 07:26-0500Heart rate86 /minChalo BLUM [facility]11-25-2022 07:26-0500Mean blood ytvtqhju70 mm[Hg]Chalo BLUM [facility]11-25-2022 07:26-0500 Systolic blood fcqjwoye755 mm[Hg]Chalo BLUM [facility]11-25-2022 07:25-0500Body fqybpjwjhpb38.42 [degF]Chalo BLUM [facility]11-25-2022 07:25-0500 Diastolic blood pqloqyvy68 mm[Hg]Chalo BLUM [facility]11-25-2022 07:25-0500Heart rate82 /minChalo BLUM [facility]11-25-2022 07:25-0500Mean blood mm[Hg]Chalo BLUM [facility]11-25-2022 07:25-0500 Respiratory rate16 /minChalo BLUM [facility]11-25-2022 07:25-8311IsX5% (BldA) [Mass fraction]96 %Chalo Aarki [facility]11-25-2022 07:25-0500 Systolic blood eqyxjcvp652 mm[Hg]Chalo [employer] [facility]11-08-2022 13:11-0500Blood Pressure LocationChalo Aarki [facility] [place] 255121-08-2022 13:11-0500Diastolic blood trmardpo05 mm[Hg]Chalo [employer] [facility] [place] 255121-08-2022 13:11-0500Heart rate79 /minChalo Aarki [facility] [place] 255121-08-2022 13:11-0500Systolic blood bftdizxt883 mm[Hg]Chalo Aarki [facility] [place] 255120-31-2022 17:30-0400Body qtmgva942.02 cmSlucas Napoles Other [employer] Other 10-31-2022 17:30-0400Body mass index (BMI) [Ratio] 29.76 kg/z5ZuzzdzfbqBalbina Napoles Other [employer] Other 10-31-2022 17:30-0400Body slgcgaovdwd61.1 [degF] Balbina Napoles Other [employer] Other 10-31-2022 17:30-0400Body tnblad24.2 kgStlili Napoles Other [employer] Other 10-31-2022 17:30-0400Diastolic blood nyxktykp19 mm[Hg] Balbina Mohrault Other [employer] Other 10-31-2022 17:30-0400Respiratory rate18 /minStepclemente Yesika Other [employer] Other 10-31-2022 17:30-3103PiC4% (BldA) [Mass fraction]98 % Balbina Mohrault Other [employer] Other 10-31-2022 17:30-0400Systolic blood erkhitil877 mm[Hg] Balbina Mohrault Other [employer] Other 09-12-2022 17:30-0400Body wlakgr584.02 cmSlucas Yesika Other [employer] Other 09-12-2022 17:30-0400Body mass index (BMI) [Ratio] 32.06 kg/r2Fuatgetud Yesika Other [employer] Other 09-12-2022 17:30-0400Body dewaawxkqze47.6 [degF] Balbina Yesika Other [employer] Other 09-12-2022 17:30-0400Body swykzn27.1 kgStlili Yesika Other [employer] Other 09-12-2022 17:30-0400Diastolic blood mm[Hg] Balbina Yesika Other [employer] Other 09-12-2022 17:30-0400Respiratory rate17 /minSlucas Napoles Other [facility] [employer] Other 09-12-2022 17:30-3800BsX5% (BldA) [Mass fraction]98 % Balbina Napoles Other [facility] [employer] Other 09-12-2022 17:30-0400Systolic blood yxjfuyej085 mm[Hg] Balbina Napoles Other [facility] [employer] Other Encounters Encounter DateEncounter TypeCare ProviderFacilityStart: 04-03-2025 End: 53-99-4121Zoslcfken Marley MD Work Phone: [facility] [place] [facility] MedicineStart: 04-03-2025 End: 92-11-5472Bbllffjordyn Marley MD Work Phone: [facility] [place] [facility] MedicineStart: 04-03-2025 End: 97-39-7389biasnenhioPSPLYQ J HEMEYERNot AvailableStart: 02-19-2025 End: 79-37-4488dwifdsyockKIWUPH J HEMEYERNot AvailableStart: 12-20-2024 End: 26-74-4897Pvaonx OnlyJustin Marley MD Work Phone: [facility] [place] 100 Family MedicineComment on above: Pyelonephritis (Primary Dx)Start: 12-19-2024 End: 43-16-5950Tttmyg outpatient visit 25 minutesEdaviva Marley MD Work Phone: [facility] [place] [facility] Family MedicineComment on above:Iron deficiency anemia secondary to inadequate dietary iron intake (Primary Dx); Burning with urination; Suprapubic pressure; History of Prince-en-Y gastric bypassStart: 12-19-2024 End: 11-70-4941hlozhcvjlvPCRSSR J HEMEYERNot AvailableStart: 12-19-2024 End: 54-67-9450Ptsgpw Evan Marley MD Work Phone: [facility] [place] [facility] Family MedicineStart: 12-19-2024 End: 36-55-5767Envtiu flowsKurtis Marley MD Work Phone: [facility] [place] [facility] Family MedicineStart: 04-13-2024 End: 68-96-2987lujxgvzepmSILCPS J HEMEYERNot AvailableStart: 04-13-2024 End: 49-93-0906Pxdayuacnmev care manage srvc 14 day dischargeJustin Marley MD Work Phone: [facility] 100Comment on above:Kidney stone (Primary Dx); Acute cystitis with hematuria; Pyelonephritis; Encounter for examination following treatment at hospital; Stage 4 chronic kidney disease ([facility]/HCC)Start: 04-07-2024 End: 53-88-5628Itxoucengr and management of inpatientEdaviva Marley MD Work Phone: [facility] Work Phone: Start: 05-57-1289Cdxgadbreg and management of inpatientEdaviva Marley MD Work Phone: [facility] Work Phone: Start: 60-71-0156ztwegnezipr Christopher Marley MD Work Phone: [facility] Work Phone: Start: 04-06-2024 End: 83-69-6327yrfjcbgphnKxthcx J Hemeyer MD Work Phone: [facility] Work Phone: Start: 04-06-2024 End: 98-83-9646Doywzmo encounter Korin Marley MD Work Phone: [facility] [address] [facility] Patti Work Phone: Start: 03-30-2024 End: 87-84-5411Xfyqlwr encounter Korin Marley MD Work Phone: [facility] [place] Work Phone: Start: 03-30-2024 End: 13-57-7791lrjvwdiparUrefdj J Hemeyer MD Work Phone: [facility] Work Phone: Start: 02-08-2024 End: 65-74-2088Wgmcehqhc encounterEdaviva Marley MD Work Phone: [facility] 100Comment on above:ResultsStart: 01-25-2024 End: 47-33-1115Hqceqkv encounter statusJustin Marley MD Work Phone: [facility] Work Phone: Start: 01-25-2024 End: 30-17-6447Ojuunrop preventive med est patient 40-64yrsEdaviva Marley MD Work Phone: [facility] 100Comment on above:Encounter for wellness examination in adult (Primary Dx); Advance directive discussed with patient; Encounter for screening for malignant neoplasm of colon; Screening mammogram, encounter for; Screening for osteoporosis; Screening for lipid disorders; Screening for diabetes mellitus (DM); Weight gain; Stage 4 chronic kidney disease (CMS/HCC); Secondary hyperparathyroidism of renal origin (CMS/HCC); Other iron deficiency anemia; Chronic fatigue; Menopausal disorderStart: 01-25-2024 End: 04-58-2203Hhcsal flowsKurtis Marley MD Work Phone: [facility] 100Start: 01-25-2024 End: 85-88-1607Zxnosv flowsKurtis Marley MD Work Phone: [facility] 100Start: 10-21-2023 End: 92-26-2225luzyuvykemXG Justin Marley Work Phone: [facility] Work Phone: Start: 10-21-2023 End: [id number] encounter procedureMD Justin Marley Work Phone: [facility] Work Phone: Start: 10-13-2023 End: 02-97-9414Tcspnar encounter procedureMD Justin Regulo Work Phone: [facility] [place] Work Phone: Start: 10-13-2023 End: 22-47-6437jaqsbwirzcAG Jmaviva Arriaga Regulo Work Phone: [facility] Work Phone: Start: 09-02-2023 End: 13-92-6586sydneufpqxWfflyaxnuHolzer [facility] Center [facility] [place] Work Phone: Start: 09-02-2023 End: 47-15-3902Ztnsdyy encounter procedureCounts Include [facility] Work Phone: Start: 07-14-2023 End: 32-96-4681Pszgndong Result EncounterEdaviva Marley MD Work Phone: [facility] External Department UnsolicitedStart: 07-14-2023 End: 03-60-6685Cxylrjykv Result Christopher Marley MD Work Phone: [facility] External Department UnsolicitedStart: 06-21-2023 End: 97-26-0455Lsfrnr outpatient visit 25 minutesEdaviva Marley MD Work Phone: NOUP BNS FMComment on above:High output congestive heart failure (CMS/HCC) (Primary Dx); Stage 3b chronic kidney disease (HCC) (CMS/HCC); Bilateral edema of lower extremity; Abdominal bloating; Weight gain, abnormal; Other iron deficiency anemia; Malabsorption of iron (CMS/HCC)Start: 04-26-2023 End: 46-21-1212pjebsqfvgsBZUG NOBLEFacility:[facility] Inctart: 04-26-2023 End: 46-51-8752Yhpolgylej hospital visit by Sveta Tam A21 5 Work Phone: RadiologyComment on above:Nephrolithiasis [N20.0] Start: 10-21-2022 End: 60-08-0662uhqbmnhequEYBJ NOBLEFacility:[facility], Inctart: 10-21-2022 End: 67-30-8877Nmmiqqk encounter procedureSamy Odonnell MD Work Phone: UrologyComment on above:Nephrolithiasis (Primary Dx); Hyperoxaluria; Hypernatriuria; Hypocitraturia; Low urine outputStart: 46-69-1138Bhxhcf OnlySamy Odonnell MD Work Phone: UrologyStart: 10-12-2022 End: 51-32-6439uurljzgveqTIOA NOBLEFacility:[facility], Inctart: 09-28-2022 End: 93-92-0182egaexnnwtqLickv O Donohue PA-C Work Phone: UrologyStart: 09-28-2022 End: 96-22-8871Ghtsyjw encounter procedureShane Gaurang Larisa PA-C Work Phone: UrologyComment on above:Preop examination (Primary Dx); NephrolithiasisStart: 09-28-2022 End: 41-42-3655Hhgkxtwwohnbo examination doneShane Gaurang Brown PA-C Work Phone: UrologyStart: 75-33-7407Plknddumy encounterSMyMichigan Medical Center Clare RNUrologyComment on above:Opened In ErrorStart: 09-21-2022 End: 60-28-4118qxauvrqnqsWXBHS OJABARIOHUEFacility:[facility], Inctart: 02-25-9361Okjhkg OnlySamy Odonnell MD Work Phone: UrologyComment on above:Nephrolithiasis (Primary Dx); Abnormal urinalysisStart: 09-16-2022 End: 36-11-2138ssmimwlnfeZQII NOBLEFacility:[facility], Inctart: 09-16-2022 End: 27-40-8214Uundqhf encounter procedureSamy Odonnell MD Work Phone: UrologyComment on above:Nephrolithiasis (Primary Dx) Start: 06-26-0588Aplzmv Sonia Odonnell MD Work Phone: UrologyStart: 09-07-2022 End: 80-21-5326aoteuhpbthCwonp O Donohue PA-C Work Phone: UrologyStart: 90-36-2787Gpbsiekon for other preprocedural examinationSMAXIMILIAN GUTIERREZKettering Health PrebleStart: 09-07-2022 End: 86-14-0237Gecgfoy encounter procedureSmaximilian RODGERS-C Work Phone: UrologyComment on above:Preop examination (Primary Dx); Nephrolithiasis; Hypernatriuria; Hyperoxaluria; Hypocitraturia; Aciduria (HCC); Urine volume deficient; Elevated parathyroid hormoneStart: 09-07-2022 End: 64-85-2613Iottxgnmuheli examination Erum RODGERS-Uzma Work Phone: UrologyStart: 53-42-6483Gsfokk Mally Alexander MD Work Phone: UrologyStart: 70-36-4223Jgoftskik encounterShawjunaid West RNUrologyComment on above:Returning Patient's CallStart: 08-18-2022 End: 56-11-2136Swlcww Sonia Odonnell MD Work Phone: UrologyComment on above:Nephrolithiasis (Primary Dx) Start: 77-91-1386Ezmaojvli encounterSsal West RNUrologyComment on above:Etcher Apprentice - OtherStart: 31-62-7525kkcfzzbrsxFcjq Noble MD Work Phone: UrologyComment on above:Renal scan 07/30/22Start: 89-03-5431A-mail encounter from Trenton Odonnell MD Work Phone: cCF [facility] MAINStart: 96-78-2427zsvyonsjvt SAMY ODONNELLFacility:[place] HospitalStart: 07-30-2022 End: 81-96-9540Dnsevsrzzm hospital visit by physicianM[facility] Work Phone: [facility] HOSPComment on above: Hydronephrosis with urinary obstruction due to ureteral calculus [N13.2]Start: 70-63-2080Klybxp OnlySamy Odonnell MD Work Phone: UrologyStart: 07-14-2022 End: 49-25-7108Sprfuj Sonia Odonnell MD Work Phone: UrologyComment on above:Abnormal urinalysis (Primary Dx)Nephrolithiasis (Primary Dx); Hydronephrosis with urinary obstruction due to ureteral calculus; Left flank pain; Left renal atrophyStart: 07-07-2022 End: 03-01-2427Iacqazw encounter procedureChalo BLUM [facility] Start: 07-06-2022 End: 92-56-9633zguhmnggxnRDM-C Stephanie Breault Work Phone: [facility] Work Phone: Start: 07-06-2022 End: 58-77-0733Bvcjqae encounter procedureCESAR Napoles Work Phone: [facility] Work Phone: Start: 06-18-2022 End: 84-13-9302Zdsnvagdz to same day surgery centerChalo BLUM [facility] Start: 06-11-2022 End: 40-07-1056Sxxrywd encounter procedureChalo BLUM [facility] Start: 05-07-2022 End: 44-85-7006zwmqqincptGfnlw Mao Other [facility] [employer] Other Start: 34-07-9949Sierwzyta encounterIrina QadirFPG Referral CoordinatorStart: 96-17-3441Sqksxn consultation new/estab patient 59 Harry Arriaga Yesika Work Phone: [phone]-Gywpw [facility] DO Work Phone: Start: 04-17-2022 End: 41-86-9495Xrcgeho encounter procedureChalo BLUM [facility] Start: 03-31-2022 End: 37-54-0679Sce-admission assessmentChalo BLUM [facility] Start: 03-31-2022 End: 95-46-6017Stlxerx encounter procedureChalo BLUM [facility] Start: 03-31-2022 End: 02-33-7258urfdfsvxmpTL CHALO BLUMFacility:D6Sxtlm: 03-24-2022 End: 83-09-4997mpiyqgczoxXGTENNPGJ BREAULTFacility:A3Uline: 03-23-2022 End: 30-63-2951zlwrdzjllxClketbspc Breault Other [place] [employer] Other Start: 94-53-0480Lgakgf outpatient visit 25 minutes [facility] ClydeStart: 03-21-2022 End: 40-41-5770jltsojcpcfHX CHALO BLUMFacility:Z2Mdwhq: 03-19-2022 End: 46-91-4288zieywihpxoQQBVJDHIB YESIKAFacility:I0Tjyvf: 02-16-2022 End: 82-97-7791gqmhvwmbccJW BRADEN LANGSTONFacility:N6Uknph: 02-03-2022 End: 48-93-8301ctnsuaaasyDKCUVZEHA YESIKAFacility:D1Szokq: 61-27-3622Ebenyf outpatient visit 15 minutesStlili NapolesFPG [facility] ClydeStart: 02-02-2022 End: 65-75-0542ykpmwvkuxsDGSMJPPMU YESIKANost. [facility] [employer] Other Start: 12-24-2021 End: 06-57-1850xjpwjzfyfcLswcpofjh Breault Other [facility] [employer] Other Start: 94-83-7666Kdcupesbr encounterStepclemente Mohrault [facility] Urgent Care ClydeStart: 07-24-2020 End: 87-10-4913Nmumstx encounter procedureLUIS E KELLYHonorHealth John C. Lincoln Medical Centerwellington [facility] Hospitaltart: 07-24-2020 End: 51-45-3133Ugtlmktqmd hospital visit by physicianSFLOYD DUQUE DOCTORStart: 07-17-2020 End: 27-27-0105Fyfmobd encounter procedureLUIS E LUCAMercy Health St. Anne Hospitaltart: 07-17-2020 End: 32-02-8853Ryhipxizuf hospital visit by physicianSFLOYD DUQUE DOCTORStart: 06-29-2020 End: 22-86-5878Mreioor encounter procedureLUIS E LUCAMercy Health St. Anne Hospitaltart: 06-13-2020 End: 98-37-6688Yfpbojs encounter procedureLUIS E ANDREAChildren's Hospital for Rehabilitationtart: 06-13-2020 End: 52-60-3279Uviswyfwuh hospital visit by physicianSFLOYD DUQUE DOCTORStart: 05-30-2020 End: 08-35-2511Grtjzeh encounter procedureLUIS E LUCAMercy Health St. Anne Hospitaltart: 05-30-2020 End: 76-14-4634Mznwiixoic hospital visit by physicianSFLOYD DUQUE DOCTORStart: 05-22-2020 End: 26-47-4340Tmmtnch encounter procedureLUIS E ANDREAChildren's Hospital for Rehabilitationtart: 05-22-2020 End: 24-64-4808Fljpqyvmmi hospital visit by physicianSFLOYD DUQUE DOCTORStart: 05-09-2020 End: 79-95-9989Eavgqvb encounter procedureLUIS E [facility] CenterStart: 05-09-2020 End: 08-73-1516Whayjmnkqx hospital visit by physicianSFLOYD DUQUE DOCTORStart: 05-02-2020 End: 12-68-2711Scpojnf encounter procedureLUIS E [facility] CenterStart: 05-02-2020 End: 49-28-8812Cocdsvgnkv hospital visit by physicianSFLOYD DC NETO DOCTORStart: 04-25-2020 End: 05-52-1129Xyovzyj encounter procedureLUIS E [facility] CenterStart: 04-25-2020 End: 11-14-5869Ohxfydrqyx hospital visit by physicianSFLOYD DUQUE DOCTORStart: 04-10-2020 End: 74-92-4489Bbqbmpu encounter procedureLUIS E [facility] CenterStart: 04-10-2020 End: 60-60-5047Ijykuzhmyz hospital visit by physicianSFLOYD [facility] DOCTORStart: 03-12-2020 End: 75-13-4843Pgkpxhe encounter procedureLUIS E [facility] Hospitaltart: 03-12-2020 End: 32-16-7833Cmfxlqkdui hospital visit by physicianSFLOYD [facility] DOCTORStart: 03-01-2020 End: 89-98-2301Tvujuog encounter procedureLUIS E [facility] Hospitaltart: 03-01-2020 End: 36-67-1329Kmhdcyceix hospital visit by physicianSFLOYD [facility] DOCTORPatient encounter statusStlili Napoles Work Phone: [phone]-Xnewn [facility] DO Work Phone: Procedures DateProcedureProcedure DetailPerforming ClinicianStart: 15-48-1103Fsuqeherexz Justin Marley MD Work Phone: Start: 15-31-2757Flwpeafs blood count with white cell differential, automatedJustin Marley MD Work Phone: Start: 72-07-7382Uayx binding capacityJustin Marley MD Work Phone: Start: 73-69-0922Jrlyu dip stick/tablet rgnt non-auto w/o micrscpEdaviva Marley MD Work Phone: Start: 70-81-8524SU of abdomen and pelvis without contrastEdaviva Marley MD Work Phone: Start: 21-76-2846Dawnb cultureEdaviva Marley MD Work Phone: Start: 04-15-0020Plnlt cultureJustin Marley MD Work Phone: Start: 46-27-6338VppmdkfhhotZembji Hemeyer MD Work Phone: Start: 28-48-1381Pmblx cultureMD Edaviva Marley Work Phone: Start: 23-04-9820XI ECHO DOPPLER Angel Marley MD Work Phone: Start: 61-37-8042Fcbireu of gastrointestinal tract bypassHistory of Prince-en-Y gastric bypassJustin Marley MD Work Phone: Start: 23-68-2942Xvxnmyhtrn exam abdomen 3+ viewsSamy Odonnell MD Work Phone: start: 63-50-5887Fo retroperitoneal real time w/image completeSamy Odonnell MD Work Phone: start: 29-70-7122Dxpop dip stick/tablet reagent auto microscopyBulk Order ProviderStart: 96-13-9175Mnzebq img morphology vascular flow 1 w/rxSamy Odonnell MD Work Phone: [phone]: 48-93-8136Ieimasam Eunice Odonnell MD Work Phone: [phone]: 23-72-6045Fmjrpohr screenSHANE O'DONOHUEComment on above:Order Comment: Specimen Type: BLOOD SPECIMEN Ordering Facility: [facility] Address: [address] [place] [id number] By: #### [id number] #### CC [facility] [id number] [address] [place] [address] [place] AMERICAStart: 72-23-0400Urxqitlbnq radiography of abdomenFNP-C Balbina Napoles Work Phone: Start: 12-95-4823Udxesqyllqbeqj shockwave lithotripsy of calculus of kidneyChalo BLUM Start: 01-18-1523VorsbrogapLiopwuc COOK Start: 02-38-5328WCWVH AMBULATORYLUIS JAUREGUIStart: 04-54-8665NJBHR AMBULATORYLUIS JAUREGUIStart: 56-11-8489LWXBI AMBULATORY MARCELINO JAUREGUIStart: 48-24-0727KVDMF AMBULATORYLUIS JAUREGUIStart: 03-01-2020 AMBULATORYLUIS JAUREGUIStart: 86-41-1668WkblvnpfkxeJignlq Hemeyer MD Work Phone: bypass of stomachChalo BLUM Decompression of median nerveStepclemente Napoles Work Phone: Esophagogastrostomy, antesternal or antethoracic Balbina Napoles Work Phone: History of gastrointestinal tract bypassHistory of Prince-en-Y gastric bypassJustin Marley MD Work Phone: HysterectomyChalo BLUM Insertion of stent into urethraStepclemente Napoles Work Phone: NEGATED: Highlighted row has not occurred!Colonoscopy Balbian Napoles Work Phone: Plan of Treatment DateCare ActivityDetailAuthorStart: 00-42-0154Yxgqavmzo for malignant neoplasm of colonNOMS HealthcareStart: 84-97-4501Zmcngmxt screeningDiabetes: Retinopathy ScreeningNOMS HealthcareStart: 72-72-1965Rotkrvnzd for malignant neoplasm of breastMammogramACADIA HEALTHCARE HealthcareStart: 16-51-5644Wifel screening for protein Diabetes: Urine Protein ScreeningACADIA HEALTHCARE HealthcareStart: 82-78-9331Vueuvqrjb vaccinationInfluenza Vaccine (#1)[facility] CenterComment on above:Postponed from 01/22/2025 (Patient Refused)Start: 76-00-0150IZJJZJDT SCREENDIABETES SCREEN [facility] Hospitaltart: 72-63-9307Uzhbmdty ScreeningDiabetes ScreeningAultman Orrville Hospitaltart: 18-51-2132YFEHHDSC SCREENDIABETES SCREENAultman Orrville Hospitaltart: 53-17-8846Hwpksojqos A1c measurementDiabetes: Hemoglobin C4LGKDYUniversity Health Lakewood Medical Center Start: 11-22-1077Wvuzm screening for proteinDiabetes: Urine Protein Screening [facility] CenterStart: 67-70-5941Izsapgkrl for malignant neoplasm of breast MammogramUniversity Health Lakewood Medical CenterStart: 62-72-8532Dzcng screening for proteinDiabetes: Urine Protein ScreeningUniversity Health Lakewood Medical CenterStart: 86-51-9229Wqnuqhvms vaccination Influenza Vaccine (#1)[facility] CenterStart: 12-19-2024 End: 70-76-7971Jvzaggt encounter zijnsuaay25/29/2025 4:30 PM EDT Office Visit [address] [phone] Justin Marley MD [address] [place] [address] [address] StreetComment on above:ArrivedStart: 07-24-2024 End: 69-63-6030Y6, reverseT3, reverse Lab Routine Weight gain Chronic fatigue Expected: 07/24/2024 (Approximate), Expires: 01/24/2025[facility] Medical CenterComment on above:Expected: 07/24/2024 (Approximate), Expires: 01/24/2025Start: 07-24-2024 End: 47-35-8365Kjtjsfdoskj [Units/volume] in Serum or PlasmaTSH Lab Routine Weight gain Chronic fatigue Expected: 07/24/2024 (Approximate), Expires: 01/24/2025NOWV HealthcareComment on above:Expected: 07/24/2024 (Approximate), Expires: 01/24/2025Start: 07-24-2024 End: 15-23-8289Azxbpfwft (T4) free [Mass/volume] in Serum or PlasmaT4, free Lab Routine Weight gain Chronic fatigue Expected: 07/24/2024 (Approximate), Expires: 01/24/2025NOWV HealthcareComment on above:Expected: 07/24/2024 (Approximate), Expires: 01/24/2025Start: 07-24-2024 End: 90-78-7185Gnpyolqjgxvnplmh (T3) [Mass/volume] in Serum or PlasmaT3 Lab Routine Weight gain Chronic fatigue Expected: 07/24/2024 (Approximate), Expires: 01/24/2025[facility] HealthcareComment on above:Expected: 07/24/2024 (Approximate), Expires: 01/24/2025Start: 07-24-2024 End: 87-49-0502Nkjtqmpgiespgddk (T3) Free [Mass/volume] in Serum or PlasmaT3, free Lab Routine Weight gain Chronic fatigue Expected: 07/24/2024 (Approximate), Expires: 01/24/2025[facility] HealthcareComment on above:Expected: 07/24/2024 (Approximate), Expires: 01/24/2025Start: 18-92-9609Ddgaoqlknh A1c measurement Diabetes: Hemoglobin G9KTBRE HealthcareStart: 93-95-9209SkyietjujCleveland Clinic Mentor Hospitaltart: 48-01-6471Qngtcuzz to infectious diseases physician [facility] Hospitaltart: 79-67-5561Stinxszj to urologistCleveland Clinic Mentor Hospitaltart: 26-83-0878UwrrwshckKettering Health CenterStart: 11-64-6249GpeytgbtmKettering Health CenterStart: 53-45-9847Cfzjbfsa admission [facility] CenterStart: 02-63-6504GionlivbaKettering Health CenterStart: 89-21-7772Dwxje cultureKettering Health CenterStart: 74-48-6385AfwhvzvgwKettering Health CenterStart: 24-56-4430Rvwhiyzi identified in Blood by CultureBlood CultureCleveland Clinic Mentor Hospitaltart: 46-90-9193Ssusangf identified in Urine by CultureUrine St. Anthony's Hospitaltart: 99-26-2942Cheta [facility] Start: 92-71-9611Hmpsvffe identified in Urine by CultureUrine St. Anthony's Hospitaltart: 01-25-2024 End: 39-26-7678MXJ W Auto Differential panel - BloodCBC and differential Lab Routine Chronic fatigue Expected: 01/25/2024 (Approximate), Expires: 01/24/2025 N[facility] HealthcareComment on above:Expected: 01/25/2024 (Approximate), Expires: 01/24/2025Start: 01-25-2024 End: 03-97-3835Kbirsffakelcd metabolic 2000 panel - Serum or PlasmaComprehensive metabolic panel Lab Routine Stage 4 chronic kidney disease (CMS/HCC) Secondary hyperparathyroidism of renal origin (CMS/HCC) Chronic fatigue Expected: 01/25/2024 (Approximate), Expires:01/24/2025NOWV HealthcareComment on above: Expected: 01/25/2024 (Approximate), Expires: 01/24/2025Start: 01-25-2024 End: 30-73-4550ILE Skeletal system Views for bone densityDEXA bone density Imaging Routine Screening for osteoporosis Menopausal disorder Expected: 01/25/2024, Expires: 01/24/2025[facility] HealthcareComment on above:Expected: 01/25/2024, Expires: 01/24/2025Start: 01-25-2024 End: 38-52-2617Ndodvceolg A1c/Hemoglobin.total in BloodHemoglobin A1c Lab Routine Screening for diabetes mellitus (DM) Weight gain Stage 4 chronic kidney disease (CMS/HCC) Expected: 01/25/2024 (Approximate), Expires: 01/24/2025[facility] Healthcare Work Phone: Comment on above:Expected: 01/25/2024 (Approximate), Expires: 01/24/2025Start: 01-25-2024 End: 68-91-8895Fpcl and Iron binding capacity panel - Serum or PlasmaIron level Lab Routine Chronic fatigue Expected: 01/25/2024 (Approximate), Expires: 01/24/2025NOMS HealthcareComment on above:Expected: 01/25/2024 (Approximate), Expires: 01/24/2025Start: 01-25-2024 End: 89-03-7922Yyiyo 1996 panel - Serum or PlasmaLipid panel Lab Routine Encounter for wellness examination in adult Screening for lipid disorders Ex pected: 01/25/2024 (Approximate), Expires: 01/24/2025NOMS HealthcareComment on above:Expected: 01/25/2024 (Approximate), Expires: 01/24/2025Start: 01-25-2024 End: 68-63-1075QE Breast - bilateral ScreeningBilateral screening mammogram Imaging Routine Screening mammogram, encounter for Expected: 01/25/2024, Expires: 03/26/2025NOMS HealthcareComment on above:Expected: 01/25/2024, Expires: 03/26/2025Start: 67-39-9330Vctstdvet vaccinationInfluenza Vaccine (#1) [facility] HealthcareStart: 57-30-8809Qzgsebrn identified in Urine by CultureUrine St. Anthony's Hospitaltart: 07-15-2023 End: 96-64-2478Iqykpya encounter qoaxlzfkn44/22/2024 10:30 AM EST Office Visit [facility] [address] [place] [address] Justin Marley MD [address] [place] [address] [facility] FMStart: 07-14-2023 End: 99-87-9800Ltaotcg.ionized [Moles/volume] in BloodCALCIUM IONIZED BLOOD Lab Routine Hydronephrosis with urinary obstruction due to ureteral calculus N ephrolithiasis Left flank pain Left renal atrophy Expected: 07/14/2023, Ex[facility] Work Phone: comment on above:Expected: 07/14/2023, Expires: 09/13/2023Start: 52-76-0515Swkoa-19 Vaccine ( season)Covid-19 Vaccine ()[facility]tart: 70-71-2273Cgtsoumgm vaccination [facility] Hospitaltart: 39-61-7863Lvrcg microalbumin profileDTaP,Tdap,Td Vaccine (2 - Td or Tdap)[facility] Hospitaltart: 09-18-2022 End: 97-71-5669Wdjhceie identified in Urine by CultureURINE CULTURE Microbiology Routine Nephrolithiasis Abnormal urinalysis Expected: 09/18/2022, Expires: 11/18/2022[facility] Work Phone: comment on above:Expected: 09/18/2022, Expires: 11/18/2022Start: 09-18-2022 End: 04-60-1791Paewb metabolic 2000 panel - Serum or PlasmaBASIC METABOLIC PNL Lab Routine Nephrolithiasis Abnormal urinalysis Expected: 09/18/2022 (Approximat e), Expires: 11/18/2022[facility] Work Phone: comment on above:Expected: 09/18/2022 (Approximate), Expires: 11/18/2022Start: 09-18-2022 End: 38-63-2220CXF W Auto Differential panel - BloodCBC + DIFF Lab Routine Nephrolithiasis Abnormal urinalysis Expected: 09/18/2022 (Approximate), Expires: 11/18/2022[facility] Work Phone: Comment on above:Expected: 09/18/2022 (Approximate), Expires: 11/18/2022Start: 08-18-2022 End: 20-36-7412Dqwtgkmq identified in Urine by CultureURINE CULTURE Microbiology Routine Nephrolithiasis Expected: 08/18/2022, Expires: 10/18/2022[facility] Work Phone: comment on above:Expected: 08/18/2022, Expires: 10/18/2022Start: 08-17-2022 End: 90-05-4212Bhocagsvyq complete panel - UrineURINALYSIS, WITH MICROSCOPIC Lab Routine Nephrolithiasis Expected: 08/17/2022, Expires: [facility] Work Phone: comment on above:Expected: 08/17/2022, Expires: 10/17/2022Start: 51-47-9418YJASJWKWLA ASSESSMENTDEPRESSION ASSESSMENTAultman Orrville Hospitaltart: 95-24-3748Gzwazvtzy vaccinationINFLUENZA (#1)[facility] Hospitaltart: 68-12-8831WROJM-19 VACCINE (5 - Booster for Moderna series)COVID-19 VACCINE (5 - Booster for Moderna series)[facility]tart: 47-89-0580Tqnewazca vaccinationFlu vaccine (#1)[facility]: 49-78-4161Rvhbbonsbg A1c measurementDiabetes: Hemoglobin C1UGWVVUniversity Health Lakewood Medical CenterStart: 67-83-8827Duqqbkefs for malignant neoplasm of breastMammogramACADIA HEALTHCARE HealthcareStart: 73-06-5949Thuzxpjab for malignant neoplasm of breastBreast cancer screenLowell, KYStwyoming: 26-81-6733Oytftdpza for malignant neoplasm of colonColon cancer screen colonoscopyLowell, KYStwyoming: 18-09-2384Rzgijtfk Vaccine (1 of 2) Shingles Vaccine (1 of 2)[place], [place]: 58-32-1110DNDLEVWU VACCINE (1 of 2)SHINGRIX VACCINE (1 of 2)[facility]tart: 08-64-2524HYMEHQJMB (FIT-DNA)COLOGUARD (FIT-DNA)[facility]tart: 73-80-5137Zqfmbectxnd COLONOSCOPYAultman Orrville Hospitaltart: 22-74-1747LGTHIATIYE CANCER SCREENING COLORECTAL CANCER SCREENINGAultman Orrville Hospitaltart: 05-45-6718PY COLONOGRAPHYCT COLONOGRAPHYAultman Orrville Hospitaltart: 12-93-0713JWNNLAXQ SCREENDIABETES SCREEN [facility]tart: 28-47-5593RRKRQ OCCULT BLOODFECAL OCCULT BLOODAultman Orrville Hospitaltart: 81-85-6439Nttio 1996 panel - Serum or PlasmaLipid Screening [facility] Hospitaltart: 72-31-0662TJQQD SCREENLIPID SCREENAultman Orrville Hospitaltart: 39-02-7887XENCGWDBFOOYWXTMVYCTEBNITTXdfkapbkw ClinicStart: 33-66-9009Ahaca panel Lipid screenParkview Health: 52-87-7135HtwosmoczulPwmqjbvwq Clinic Start: 37-27-6167KMQ TESTINGHPV TESTINGAultman Orrville Hospitaltart: 82-30-8596TJY TESTINGPAP TESTINGAultman Orrville Hospitaltart: 48-98-3116Jboiwvhiq for malignant neoplasm of cervixCervical cancer screenParkview Health: 11-16-1984 DTaP/Tdap/Td vaccine (1 - Tdap)DTaP/Tdap/Td vaccine (1 - Tdap)[place], KYStart: 03-52-8028Nsaix microalbumin profileDTAP,TDAP,TD (1 - Tdap)[facility]tart: 37-60-2394Wfaxa screening for proteinDiabetes: Urine Protein ScreeningUniversity Health Lakewood Medical CenterStart: 06-45-2724BXUHXLQHW C SCREENINGHEPATITIS C SCREENINGAultman Orrville Hospitaltart: 07-50-9012PWP SCREENINGHIV SCREENINGAultman Orrville Hospitaltart: 91-73-0978SQL screeningHIV screenSalem City Hospitalart: 58-84-9568Vlbcfeia screeningDiabetes: Retinopathy ScreeningUniversity Health Lakewood Medical CenterStart: 62-45-6974ZLRLNCSLZ B (1 of 3 - 3-dose series)HEPATITIS B (1 of 3 - 3-dose series)[facility]tart: 36-06-2552Juokslkll B Vaccine (1 of 3 - 3-dose series)Hepatitis B Vaccine (1 of 3 - 3-dose series)[facility]tart: 91-62-3948Phaiizlnj C screeningHepatitis C screenLowell, KYStart: 29-73-0177Vvaqpxwqe for malignant neoplasm of colonNOWV HealthcareBacteria identified in Urine by CultureURINE CULTURE Microbiology Routine Abnormal urinalysis 07/14/2022 10:05 AM [facility] Work Phone: End: 31-98-4536ZXUQK-19COVID-19 Lab Routine Once for 1 Occurrences starting 06/13/2020 until 06/13/2020[facility] on above:Once for 1 Occurrences starting 06/13/2020 until 1COVID-19[facility] [place] [place] End: 02-14-5989WWGAE-19COVID-19 Lab Routine Once for 1 Occurrences starting 07/17/2020 until 07/17/2020[facility] Work Phone: comment on above:Once for 1 Occurrences starting 07/17/2020 until 07/17/2020 End: 12-50-5624LXCNP-19COVID-19 Lab Routine Once for 1 Occurrences starting 07/24/2020 until 07/24/2020[facility] Work Phone: comment on above:Once for 1 Occurrences starting 07/24/2020 until 07/24/2020 End: 24-48-1027Ilafb-19 AmbulatoryCovid-19 Ambulatory Lab Routine Once for 1 Occurrences starting 04/10/2020 until 04/10/2020[facility], KYComment on above:Once for 1 Occurrences starting 04/10/2020 until 04/10/2020Covid-19 [facility]ulatoryKindred [facility], [place] End: 91-08-2507Wvtqi-19 AmbulatoryCovid-19 Ambulatory Lab Routine Once for 1 Occurrences starting 04/25/2020 until 04/25/2020[facility], KYComment on above:Once for 1 Occurrences starting 04/25/2020 until 04/25/2020 End: 57-62-5706Molbf-19 AmbulatoryCovid-19 Ambulatory Lab Routine Once for 1 Occurrences starting 05/02/2020 until 05/02/2020[facility] [place]Comment on above:Once for 1 Occurrences starting 05/02/2020 until 05/02/2020 End: 09-37-6937Cblor-19 AmbulatoryCovid-19 Ambulatory Lab Routine Once for 1 Occurrences starting 05/09/2020 until 05/09/2020[facility], [place]Comment on [place]:Once for 1 Occurrences starting 05/09/2020 until 05/09/2020 End: 49-63-0680Aayds-19 AmbulatoryCovid-19 Ambulatory Lab Routine Once for 1 Occurrences starting 05/22/2020 until 05/22/2020[facility], [place]Comment on above:Once for 1 Occurrences starting 05/22/2020 until 05/22/2020 End: 09-97-5745Ofkin-19 AmbulatoryCovid-19 Ambulatory Lab Routine Once for 1 Occurrences starting 03/01/2020 until 03/01/2020[facility], [place]Comment on [place]:Once for 1 Occurrences starting 03/01/2020 until 03/01/2020 End: 35-29-9646Uespc- AmbulatoryCovid-19 Ambulatory Lab Routine Once for 1 Occurrences starting 05/30/2020 until 05/30/2020[facility], [place]Comment [place]:Once for 1 Occurrences starting 05/30/2020 until 05/30/2020 End: 78-85-9741Vrmzkv img morphology vascular flow 1 w/rxNM RENAL FLOW/FXN W PHARM Radiology Routine Hydronephrosis with urinary obstruction due to ureteral calculus 1 [facility] comment on above:1 Occurrences starting 07/14/2022 until 08/13/2023Noninvasive colorectal cancer DNA and occult blood screening [Presence] in StoolCologuard colon cancer screening Lab Routine Encounter for screening for malignant neoplasm of colon Ordered: 01/26/2024[facility] Comment on above:Ordered: 01/26/2024atient EducationUrinary Tract Infection, Adult (DC) Know your [facility] Work Phone: [facility] Work Phone: End: 74-51-2167Hsszpuoyzc exam abdomen 3+ viewsXR ABDOMEN 3V KUB W/OBLIQUES Radiology Routine Nephrolithiasis 1 Occurrences [facility] 10/[facility]2022 [facility] Work [facility]: comment on above:1 Occurrences starting 10/21/2022 until 4REFER FOR ADMIT INTERVIEWREFER FOR ADMIT INTERVIEW Procedures Routine Nephrolithiasis [facility] Work Phone: comment on above:Ordered: 08/18/2022Renal function 2000 panel - Serum or PlasmaScci Hospital LimaRenal function 1999 panel - Serum or [facility] CenterRen[facility] 1999 panel - Serum or [facility] CenterURINALYSIS, REFLEX MICROSCOPICURINALYSIS, REFLEX MICROSCOPIC Lab Routine Screening for genitourinary condition [facility] Work Phone: Comment on above:Ordered: 09/28/2022 End: 47-66-8331DB KIDNEY/BLADDERUS KIDNEY/BLADDER Radiology Routine Nephrolithiasis 1 Occurrences starting 10/21/2022 [facility] Work Phone: comment on above:1 Occurrences starting 10/21/2022 until 11/20/2023[facility] Immunizations Immunization DateImmunizationNotesCare UcfbvtvlFqdstxzb75-71-7095OUWD-RjW-2 (COVID-19) mRNA-1273 vaccineLawrence County HospitalFlexEl [facility] [place] 255122-01-2021SARS-CoV-2 (COVID-19) mRNA-1273 vaccineLawrence County HospitalFlexEl [facility]02-04-2021SARS-CoV-2 (COVID-19) mRNA-1273 vaccineLawrence County HospitalFlexEl [facility]01-07-2021SARS-CoV-2 (COVID-19) mRNA-1273 vaccineLawrence County HospitalFlexEl [facility]10-09-2019influenza virus vaccine, unspecified formulationGregFlexEl [facility]10-09-2019Seasonal, quadrivalent, recombinant, injectable influenza vaccine, preservative freeJustin Marley MD Work Phone: [facility] CenterWmvvkinmwb39-94-2558giubvtr toxoid, reduced diphtheria toxoid, and acellular pertussis vaccine, adsorbedParkersburg [employer] [facility] Patti Payers DatePayer CategoryPayerPolicy [id number] [employer] Blue ShieldBS ..[id number]uru33-16-3351 [id number] 2..1.350963.3.57[id number] 2..1.971142.3.57[id number] 2..1.134141.3.57[id number] 2..1.397006.3.57[id number] 2..1.220057.3.57[id number] 2..1.046807.3.57[id number] 2.0.1.772982.3.579.2.[id number] 2..1.067581.3.57[id number] 2.16840.1.431584.3.579.2.[id number] 2.16840.1.778462.3.57[id number] 2.16840.1.363414.3.579.2.[id number] 2.16840.1.301469.3.579.[id number] 2.16840.1.724055.3.579.2.13429-35-5866Qvumiee7187714 2.840.1.032487.3.579.2.10232-20-7589Tlmmwvf7112666 2.840.1.866974.3.579.[id number] 2.840.1.467947.3.57[id number] 2.840.1.719705.3.579.2.94648-01-4701Csutrxb4434508 2.840.1.741030.3.579.[id number] 2.840.1.235318.3.579.2.64238-54-5875Nvdexud92557594 2.840.1.229539.3.579.2.24542-03-5289Psdjsnn40066070 2.840.1.203149.3.579.2.243129-78-6997Ammbzxh38878811 2.16840.1.545370.3.579.2.[id number] 2.16840.1.741366.3.579.2.887148-81-5065Ypwtpgf2221280 2.16.840.1.193060.3.579.2.9[id number] 1.2.840.064024.1.13.239.2.7.3.464421.981Ycnoatw07908532 2.16.840.1.843263.3.579.2.184Bvpktie19874856 2.16.840.1.532014.3.579.2.531 Brctrni30372383 2.16.840.1.198605.3.579.2.531 Social History DateTypeDetailFacilityTobacco smoking status NHISUnknown if ever smokedParkview Health: 67-40-1393Dfw Assigned At [facility] SystemNot on [facility]: 09-28-2022 End: 80-54-5517Mhh Assigned At [facility]: 03-31-2022 End: 26-95-3443Vwrmxak smoking statusNever smoked tobacco (finding)[facility] HealthyStart: 23-60-9739Gtlqiag smoking statusNeverExecutive [facility] of [facility] Health: 09-28-2022 End: 13-00-5809Nm alcohol useNo alcohol useMarshall [facility] Medical [facility] 250 DO Work Phone: Start: 32-24-8011Ehz Assigned At [facility] CenterHistory of tobacco usePassive smokerHenrico Clinic Start: 07-14-2022 End: 74-55-6447Vnqfxrq use and exposureSmokeless tobacco non-userAultman Orrville Hospitaltart: 06-21-2023 End: 99-90-8026Zfropro intakeEx-drinker (finding)[facility] HealthcareStart: 30-63-8303Ugyyklt CommentCaffeine intake ; chocolatreNOMS HealthcareStart: 97-49-7744Ijryqq identityIdentifies as female gender (finding)[facility] Start: 46-45-5366Ktlddh orientationHeterosexual (finding)[facility] HealthcareStart: 03-31-2024 End: 55-03-1610PbeSxnijh (finding)[facility] Medical Equipment Procedure CodeEquipment CodeEquipment Original TextEquipment IdentifierDates Stent Inlay [place] 7fr Taper [place] Green Polymer Phreecoat 24cm Ureteral - [id number]: 37-62-9768Xeolr Inlay [place] 6fr Taper [place] Green Polymer Phreecoat 24cm Ureteral - [id number]: 10-12-2022 Goals DatePatient GoalDesired Activity/State Functional Status DlotYdhmxefyuuHvwhbfNlswfiqi50-09-5803Psqkvzt Health Questionnaire 2 item (PHQ- 2) [Reported][facility] CenterMgiuzyaeyy95-36-6794Iiuttmxxvk statusPatient at Baseline [facility] Work Phone: [phone]grhmiy StatusN/AExec[facility] of [facility] System01-19-2023Functional StatusProvidence Hospital11-25-2022Functional StatusProvidence Hospital 34-71-0090Xfwtbdvisl StatusN/AExec[facility] Mental Status TexkDqgylmvuqqZwmqeePgkxqagw93-81-6348Unrnmwjpw functionCognitive Status Patient at [facility]Mer[facility] Work Phone: Clinical Notes 02-02-2022 to 12-20-2024 Note Date & DadiLnqzUmvbcanp29-72-4910 History of Present illness Narrative* Justin Marley MD - 12/20/2024 5:07 PM EDT I found out she was actually taking some NSAIDs because the pain was so bad last night. I called and spoke with her we discussed no NSAID use. I want her to use the Tylenol regularly and I did a quick search for clearance mechanisms as I was going to give her a little bit of tramadol but that turnsout to be primarily renally excreted she has previously had hydrocodone 2 years ago basically and she did well with that in his not primarily renally excreted so I will give her a 3 day supply. PDMP reviewed in his expected Prescription sent documented in this encounterUniversity Health Lakewood Medical CenterBlsjcxmdey29-67-4622 History of Present illness Narrative* Justin Marley MD - 12/19/2024 4:30 PM EDT Images from the original note were not included. Patient ID: Elizabeth Irvin is a 59 y.o. female who presents for: Urinary Tract Infection Patient complains of burning with urination, incomplete bladder emptying, suprapubic pressure, and urgency. He/She has had symptoms for a few days. Patient also complains of stomach ache. Patient denies fever. Patient does have a history of recurrent UTI. Patient does not have a history of pyelonephritis. 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 She is also noticing a worsening of her fatigue prior to the UTI symptoms. 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 Review of Systems No loss of consciousness. Objective The patient is pleasant and in no acute distress The patient has good eye contact and clear speech 12/19/2024 2:38 PM 04/13/2024 2:04 PM 01/25/2024 2:36 PM 07/20/2023 2:52 PM Vitals BMI 27.1 kg/m2 25.95 kg/m2 25.95 kg/m2 23.56 kg/m2 BSA (m2) 1.76 m2 1.72 m2 1.72 m2 1.64 m2 Systolic 116 124 118 Diastolic 68 74 68 Heart Rate 73 72 68 SpO2 96 % 96 % 97 % Height (in) 5' 3 5' 3 5' 3 5' 3 Weight (lb) 153 146.5 146.5 133 Visit Report Report Report Report Report Allergies Allergen Reactions Prednisone Hives Tramadol Other Reaction(s): itching Valacyclovir Hcl Other Reaction(s): hives, itching Current Outpatient Medications on File Prior to Visit Medication Sig Dispense Refill ergocalciferol (Vitamin D2) 1.25 MG (96851 UT) capsule Take 1 capsule by mouth 1 (one) time per week furosemide (Lasix) 40 MG tablet Take 1 tablet (40 mg) by mouth Daily (Patient taking differently: Take 20 mg by mouth Daily) 30 tablet 0 polyethylene glycol, PEG, 3350 (Miralax) 17 g packet Take 17 g by mouth Daily [DISCONTINUED] docusate (Colace) 50 MG/5ML liquid Take 50 mg by mouth 2 (two) times a day as neededfor constipation No current facility-administered medications on file prior to visit. 1. Burning with urination Her urinalysis is abnormal and consistent with a urinary tract infection. Discussed how her specific gravity was on the dry side and she needed to drink more water. In prescribing a new medication consideration of the following encompasses moderate decision making: the current prescriptions and supplements, the current allergies and medication intolerances, the current medical conditions, and potential drug interactions. Risks, benefits, and reason for starting their medication were discussed. The patient was given a chance to ask questions today and all questions were answered. The patient is to contact us if any other questions arise or if any problems occur with the adjustment in their medication. - POCT urinalysis dipstick manually resulted - cefuroxime (Ceftin) 250 MG tablet; Take 1 tablet (250 mg) by mouth in the morning and 1 tablet (250 mg) before bedtime. Do all this for 7 days. Dispense: 14 tablet; Refill: 0 2. Suprapubic pressure As above - POCT urinalysis dipstick manually resulted 3. Iron deficiency anemia secondary to inadequate dietary iron intake (Primary) Chronic recurrent problem. She is currently not on iron but she has tried it on several other occasions and it usually gives her GI side effects. - CBC and differential; Future - Iron and TIBC; Future - CBC and differential - Iron and TIBC 4. History of Prince-en-Y gastric bypass Comorbid condition leading to the iron deficiency. Please Note: Portions of this chart may have been created using voice recognition software. Occasionally a wrong-word or sound-like substitutions may have occurred due to inherent limitations of the voice recognition software. Please read the chart carefully and recognize, using context, where the substitutions may have occurred. documented in this encounterUniversity Health Lakewood Medical CenterLhxuuesrlh26-17-6800 History of Present illness Narrative* Justin Marley MD - 04/13/2024 2:00 PM EST Images from the original note were not included. Patient ID: Elizabeth Irvin is a 58 y.o. female who presents for: Flowsheet Row Patient Outreach from 04/11/2024 in [facility] with Yanna Walker LPN Hospital Information ED, Hospital or Alf Facility Discharge? Hospital Patient has been contacted within two business days of discharge Yes Diagnosis UTI, Pyelonephritis, CKD Stage 4, recurrent UTI, possible acute clinical pyelonephritis Discharge Date 04/09/24 Discharged To: Home Setting Discharge Hospital [facility] Engagement Call Start Time 1055 Admission Date 04/07/24 Medications Discharge medications reviewed and reconciled from hospital? Yes [START: Cipro, colace, miralax, tylenol] Is the patient having any side effects they believe may be caused by any medication additions or changes? No Does the patient have all medications ordered at discharge? Yes Nursing Interventions No intervention needed Is the patient taking all medications as directed (includes completed medication regime)? Yes Nursing Interventions Nurse provided patient education Appointments Does the patient have a primary care provider? Yes [04/13] Nursing Interventions Verified appointment date/time/provider Has the patient kept scheduled appointments due by today? Yes Self Management Patient Teaching Does the patient have access to their discharge instructions? Yes Nursing Interventions Reviewed instructions with patient What is the patient's perception of their health status since discharge? Improving Is the patient/caregiver able to teach back the hierarchy of who to call/visit for symptoms/problems? PCP, Specialist, Home Health nurse, Urgent Care, ED, 911 Yes Wrap Up Wrap Up Additional Comments Had labs, EKG, CT A/P Call End Time 1055 Review of Systems Constitutional: Positive for fatigue. Negative for chills and fever. Respiratory: Negative for cough, shortness of breath and wheezing. Cardiovascular: Negative for chest pain and palpitations. Gastrointestinal: Negative for abdominal pain. Genitourinary: Negative for frequency and urgency. Objective The patient is pleasant and in no acute distress The patient does not appear to have a gross neurologic deficit. The patient has good eye contact and clear speech Visit Vitals Pulse 73 Ht 5' 3 Wt 146 lb 8 oz SpO2 96% BMI 25.95 kg/m OB Status Hysterectomy Smoking Status Never BSA 1.72 m No visits with results within 1 Month(s) from this visit. Latest known visit with results is: Office Visit on 01/25/2024 Component Date Value Ref Range Status Hemoglobin A1C 01/26/2024 5.8 (H) <5.7 % of total Hgb Final Comment: For someone without known diabetes, a hemoglobin A1c value between 5.7% and 6.4% is consistent with prediabetes and should be confirmed with a follow-up test. For someone with known diabetes, a value <7% indicates that their diabetes is well controlled. A1c targets should be individualized based on duration of diabetes, age, comorbid conditions, and other considerations. This assay result is consistent with an increased risk of diabetes. Currently, no consensus exists regarding use of hemoglobin A1c for diagnosis of diabetes for children. This test was performed on the Lonnie jonathan c503 platform. Effective 05/10/23, a change in test platforms from the [employer] to the Lonnie jonathan c503 may have shifted HbA1c results compared to historical results. Based on laboratory validation testing conducted at [employer], the Lonnie platform relative to the Appiah platform had an average increase in HbA1c value of < or = 0.3%. This difference is within accepted variability established by the National Glycohemoglobin Standardization Program. Note that not all individuals will have had a shift in their results and direct comparisons between historical and current results for testing conducted on different platforms is not recommended. CHOLESTEROL, TOTAL 01/26/2024 181 <200 mg/dL Final HDL CHOLESTEROL 01/26/2024 59 > OR = 50 mg/dL Final TRIGLYCERIDES 01/26/2024 57 <150 mg/dL Final LDL-CHOLESTEROL 01/26/2024 108 (H) mg/dL (calc) Final Comment: Reference range: <100 Desirable range <100 mg/dL for primary prevention; <70 mg/dL for patients with CHD or diabetic patients with > or = 2 CHD risk factors. LDL-C is now calculated using the Jaime-Clay calculation, which is a validated novel method providing better accuracy than the Friedewald equation in the estimation of LDL-C. Jaime OLIVARES et al. JENNIFER. 2013;310(19): 3933-0599 (http://education.[employer]/faq/NLU727) CHOL/HDLC RATIO 01/26/2024 3.1 <5.0 (calc) Final NON HDL CHOLESTEROL 01/26/2024 122 <130 mg/dL (calc) Final Comment: For patients with diabetes plus 1 major ASCVD risk factor, treating to a non-HDL-C goal of <100 mg/dL (LDL-C of <70 mg/dL) is considered a therapeutic option. Glucose 01/26/2024 88 65 - 99 mg/dL Final Comment: Fasting reference interval BUN 01/26/2024 32 (H) 7 - 25 mg/dL Final Creatinine 01/26/2024 2.00 (H) 0.50 - 1.03 mg/dL Final EGFR 01/26/2024 28 (L) > OR = 60 mL/min/1.73m2 Final BUN/CREATININE RATIO 01/26/2024 16 6 - 22 (calc) Final Sodium 01/26/2024 142 135 - 146 mmol/L Final Potassium, Bld 01/26/2024 4.2 3.5 - 5.3 mmol/L Final Chloride 01/26/2024 108 98 - 110 mmol/L Final Carbon Dioxide 01/26/2024 30 20 - 32 mmol/L Final Calcium 01/26/2024 8.9 8.6 - 10.4 mg/dL Final PROTEIN, TOTAL 01/26/2024 6.3 6.1 - 8.1 g/dL Final ALBUMIN 01/26/2024 3.6 3.6 - 5.1 g/dL Final GLOBULIN 01/26/2024 2.7 1.9 - 3.7 g/dL (calc) Final ALBUMIN/GLOBULIN RATIO 01/26/2024 1.3 1.0 - 2.5 (calc) Final BILIRUBIN, TOTAL 01/26/2024 0.5 0.2 - 1.2 mg/dL Final ALKALINE PHOSPHATASE 01/26/2024 61 37 - 153 U/L Final AST 01/26/2024 15 10 - 35 U/L Final ALT 01/26/2024 8 6 - 29 U/L Final WHITE BLOOD CELL COUNT 01/26/2024 4.4 3.8 - 10.8 Thousand/uL Final RED BLOOD CELL COUNT 01/26/2024 4.06 3.80 - 5.10 Million/uL Final HEMOGLOBIN 01/26/2024 11.1 (L) 11.7 - 15.5 g/dL Final HEMATOCRIT 01/26/2024 34.3 (L) 35.0 - 45.0 % Final MCV 01/26/2024 84.5 80.0 - 100.0 fL Final MCH 01/26/2024 27.3 27.0 - 33.0 pg Final MCHC 01/26/2024 32.4 32.0 - 36.0 g/dL Final RDW 01/26/2024 13.6 11.0 - 15.0 % Final PLATELET COUNT 01/26/2024 287 140 - 400 Thousand/uL Final MPV 01/26/2024 8.5 7.5 - 12.5 fL Final ABSOLUTE NEUTROPHILS 01/26/2024 2,292 1,500 - 7,800 cells/uL Final ABSOLUTE BAND NEUTROPHILS 01/26/2024 CANCELED 0 - 750 cells/uL Final Result canceled by the ancillary. ABSOLUTE METAMYELOCYTES 01/26/2024 CANCELED 0 cells/uL Final Result canceled by the ancillary. ABSOLUTE MYELOCYTES 01/26/2024 CANCELED 0 cells/uL Final Result canceled by the ancillary. ABSOLUTE PROMYELOCYTES 01/26/2024 CANCELED 0 cells/uL Final Result canceled by the ancillary. ABSOLUTE LYMPHOCYTES 01/26/2024 1,368 850 - 3,900 cells/uL Final ABSOLUTE MONOCYTES 01/26/2024 480 200 - 950 cells/uL Final ABSOLUTE EOSINOPHILS 01/26/2024 198 15 - 500 cells/uL Final ABSOLUTE BASOPHILS 01/26/2024 62 0 - 200 cells/uL Final ABSOLUTE BLASTS 01/26/2024 CANCELED 0 cells/uL Final Result canceled by the ancillary. ABSOLUTE NUCLEATED RBC 01/26/2024 CANCELED 0 cells/uL Final Result canceled by the ancillary. NEUTROPHILS 01/26/2024 52.1 % Final BAND NEUTROPHILS 01/26/2024 CANCELED % Final Result canceled by the ancillary. METAMYELOCYTES 01/26/2024 CANCELED % Final Result canceled by the ancillary. CIPROFLOXICIN 01/26/2024 CANCELED % Final Result canceled by the ancillary. PROMYELOCYTES 01/26/2024 CANCELED % Final Result canceled by the ancillary. LYMPHOCYTES 01/26/2024 31.1 % Final REACTIVE LYMPHOCYTES 01/26/2024 CANCELED 0 - 10 % Final Result canceled by the ancillary. MONOCYTES 01/26/2024 10.9 % Final EOSINOPHILS 01/26/2024 4.5 % Final BASOPHILS 01/26/2024 1.4 % Final BLASTS 01/26/2024 CANCELED % Final Result canceled by the ancillary. NUCLEATED RBC 01/26/2024 CANCELED 0 /100 WBC Final Result canceled by the ancillary. COMMENT(S) 01/26/2024 CANCELED Final Result canceled by the ancillary. IRON, TOTAL 01/26/2024 119 45 - 160 mcg/dL Final T3, TOTAL 01/26/2024 94 76 - 181 ng/dL Final T3 REVERSE, LC/MS/MS 01/26/2024 14 8 - 25 ng/dL Final Comment: This test was developed and its analytical performance characteristics have been determined by [place] [place]. It has not been cleared or approved by the U.S. Food and Drug Administration. This assay has been validated pursuant to the CLIA regulations and is used for clinical purposes. T3, FREE 01/26/2024 2.5 2.3 - 4.2 pg/mL Final T4, FREE 01/26/2024 1.0 0.8 - 1.8 ng/dL Final TSH 01/26/2024 0.83 0.40 - 4.50 mIU/L Final Allergies Allergen Reactions Prednisone Hives Tramadol Other Reaction(s): itching Valacyclovir Hcl Other Reaction(s): hives, itching Current Outpatient Medications on File Prior to Visit Medication Sig Dispense Refill ciprofloxacin (Cipro) 250 MG tablet Take 250 mg by mouth in the morning and 250 mg before bedtime. docusate (Colace) 50 MG/5ML liquid Take 50 mg by mouth 2 (two) times a day as needed for constipation ergocalciferol (Vitamin D2) 1.25 MG (09402 UT) capsule Take 1 capsule by mouth 1 (one) time per week polyethylene glycol, PEG, 3350 (Miralax) 17 g packet Take 17 g by mouth Daily furosemide (Lasix) 40 MG tablet Take 1 tablet (40 mg) by mouth Daily (Patient taking differently: Take 40 mg by mouth in the morning and 40 mg before bedtime.) 30 tablet 0 [DISCONTINUED] cefuroxime (Ceftin) 250 MG tablet Take 1 tablet (250 mg) by mouth in the morning and1 tablet (250 mg) before bedtime. Do all this for 5 days. 10 tablet 0 No current facility-administered medications on file prior to visit. 1. Acute cystitis with hematuria Currently asymptomatic and on antibiotic treatment. After discussion since this is somewhat recurrent and there is a kidney stone in her atrophy kidney, we have mutually agreed to have her stop back next week for a test of cure. 2. Pyelonephritis As above 3. Encounter for examination following treatment at hospital This visit is prompted as a transition of care. The patient has been contacted by phone within 2 business days of discharge or at least 2 unsuccessful attempts were made to contact the patient within the 2 business days. Any available documents including; emergency room note, visit notes, consults, and discharge summary or continuity of care documents were reviewed. Any laboratory investigation or diagnostic imaging that was ordered by outside physicians and available was obtained and reviewed. The transition of care note is reviewed. a ovir-ce-ilow evaluation is done today. Medical decision making is complex in degree. 4. Stage 4 chronic kidney disease (CMS/HCC) Chronic problem mostly being managed by Nephrology. Seems stable. 5. Kidney stone (Primary) We did discuss this. She has told the only way to really get this out we will be surgical removal. Problem we discussed a sometimes when these get infected, I can not be sterilized act as a seating point for further infection. She may need prophylactic antibiotic at bedtime. documented in this encounterUniversity Health Lakewood Medical CenterKiqexdertr51-81-0917 [place] [address] Urology Consult Note Signed Patient: Elizabeth Irvin MR#: [id number] : 1965 Acct:[id number] Age/Sex: 58 / F Adm Date: 4 Loc: Room: [address] [place] [address] Type: ADM IN Attending Dr: Dinora Hawkins MD Copies to: MD Antonio Bee MD Mohamad Akil, MD~ History of Present Illness Consult Details Consult Date: 04/07/2024 Requesting Provider: Dinora Hawkins MD HPI: Pt admit w/ uti/subjective fever; no fever while in house and wbc nl. 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 Anemia of renal disease Surgical History History of kidney surgery H/O: hysterectomy Gastric bypass status for obesity History of carpal tunnel release Family History Father , @ 69 years old from [place] Heart disease History of stroke Legacy FamHx Problem: Diagnosed with Stroke Myocardial infarction Mother Cancer Legacy FamHx Problem: Diagnosed with Cancer Hypertension Heart disease History of stroke Legacy FamHx Problem: Diagnosed with Stroke 64 yrs Myocardial infarction Stroke TIA (transient ischemic attack) Diabetes Social History Smoking Status: Never smoker Substance Use Type: None Meds Medications and Allergies Allergies prednisolone Allergy (Unknown, Verified 10/21/23 11:20) hives, SOB valacyclovir (Valtrex) Allergy (Unknown, Verified 10/21/23 11:20) hives Home Medications furosemide 40 mg tablet (Lasix) 40 mg PO BID #180 tabs 01/26/24 [Rx Confirmed 04/06/24] ergocalciferol (vitamin D2) 1,250 mcg (50,000 unit) capsule 1,250 mcg PO QWEEK #14 caps 04/06/24 [Rx Confirmed 04/06/24] acetaminophen 500 mg tablet 1,000 mg (2 x 500 mg) PO Q8H PRN Pain Scale 1 - 3 orfever 15 days #45 tabs 04/09/24 [Rx] ciprofloxacin HCl 250 mg tablet (Cipro) 250 mg PO Q12HR 7 days #14 tabs 04/09/24 [Rx] docusate sodium 50 mg/5 mL oral liquid 100 mg (10 mL) PO DAILY 10 days #100 mL 04/09/24 [Rx] polyethylene glycol 3350 17 gram oral powder packet (HealthyLax) 17 g PO DAILY 15 days #15 ea 04/09/24 [Rx] Exam Physical Exam Vital Signs: Temp Pulse Resp BP Pulse Ox O2 Del Method 97.9 F 66 14 118/76 100 Room Air 04/07/24 12:01 04/07/24 12:01 04/07/24 12:01 04/07/24 12:01 04/07/24 12:01 04/07/24 12:01 Narrative: a and o x 3; nicole kebede Results - Urology Labs 04/09/24 04:27 04/09/24 04:27 Labs: Laboratory Results - Last 48 hrs. 04/07/24 06:23: Corrected WBC 3.2 L, Uncorrected WBC Count 3.2 L, RBC 3.73, Hgb 9.9 L, Hct 30.7 L, MCV 82.4, MCH 26.7, MCHC 32.4, RDW 15.5 H, Plt Count 152, MPV 7.8, Neut % (Auto) N/A, Lymph % (Auto)N/A, Cambria % (Auto) N/A, Eos % (Auto) N/A, Baso % (Auto) N/A, Nucleat RBC Rel Count N/A, Neut # (Auto) N/A, Lymph # (Auto) N/A, Cambria # (Auto) N/A, Eos # (Auto) N/A, Baso # (Auto) N/A, Band Neutrophils% 7 H, Lymphocytes % 16 L, Monocytes % 7, Eosinophils % 2, Segmented Neutrophils 69, Platelet Estimate Normal, Plt Morphology Comment Normal, RBC Morphology N/A, Anisocytosis Slight, Ovalocytes Slight, PHA Creatinine Clear 36.40, Sodium 139, Potassium 3.8, Chloride 111 H, Carbon Dioxide 22.5, AnionGap 9.3, BUN 19, Creatinine 1.53 H, Est GFR (CKD-EPI) 38.958, Glucose 87, Calcium 8.2 L, Magnesium 1.9 04/06/24 20:03: Lactic Acid 1.3 04/06/24 16:13: Urine Color Light-yellow, Urine Appearance Clear, Urine pH 6.0, Ur Specific Gravity1.015, Urine Protein 50 H, Urine Glucose (UA) Normal, Urine Ketones Negative, Urine Occult Blood 1+H, Urine Nitrite Negative, Urine Bilirubin Negative, Urine Urobilinogen Normal, Ur Leukocyte Esterase 3+ H, Urine RBC 3-4, Urine WBC 20-49 H, Ur Squamous Epith Cells 1-2, Urine Bacteria Rare, HyalineCasts 0-8, Urine Mucus Rare 04/06/24 15:50: Corrected WBC 3.4 L, Uncorrected WBC Count 3.4 L, RBC 4.27, Hgb 11.4 L, Hct 34.8, MCV 81.4, MCH 26.8, MCHC 32.9, RDW 15.5 H, Plt Count 185, MPV 7.5, Neut % (Auto) 78.2, Lymph % (Auto)9.9, Cambria % (Auto) 10.2, Eos % (Auto) 1.0, Baso % (Auto) 0.7, Nucleat RBC Rel Count 0.1, Neut # (Auto) 2.6, Lymph # (Auto) 0.3 L, Cambria # (Auto) 0.3, Eos # (Auto) 0.0, Baso # (Auto) 0.0, Monocyte DistWidth 26.41 H, PHA Creatinine Clear 30.77, Sodium 138, Potassium 3.5, Chloride 107, Carbon Dioxide 22.4, Anion Gap 12.1, BUN 24, Creatinine 1.81 H, Est GFR (CKD-EPI) 31.843, Glucose 98, Calcium 8.8, Total Bilirubin 0.4, Direct Bilirubin 0.00 L, Indirect Bilirubin 0.4, AST 41 H, ALT 20, Alkaline Phosphatase 132 H, Total Protein 6.7, Albumin 3.3 L, Globulin 3.4, Albumin/Globulin Ratio 1.0, Lipase 30.0 Microbiology Microbiology: 04/06/24 16:13 Urine - Clean-Voided Midstream Urine Culture - Preliminary No Growth 1 Day 04/06/24 15:45 Blood - Left Antecubital Blood Culture - Pending 04/06/24 20:03 Blood - Left Hand Blood Culture - Pending Imaging CT scan - abdomen: report reviewed and image reviewed Assessment/Plan (1) Kidney stones: Plan: pt feels fine; no surgery needed as kidney likely non-fxn and no overt signs sepsis; as such can dchome on 10 days total abx; rec f/u nephrology. Does not need to see [facility] urology at this time. Pt admit w/ uti/subjective fever; no fever while in house and wbc nl. ua c/w likely infection creat stable ct reviewed--tiny atrophic left kidney w/ prox left ureter stone; right kidney fine pt w/ long hx stones tx at [facility] main w/ dr odonnell Code(s): N20.0 - Calculus of kidney (2) Pyelonephritis: Plan: s Code(s): N12 - Tubulo-interstitial nephritis, not specified as acute or chronic (3) UTI (urinary tract infection): Plan: same Code(s): N39.0 - Urinary tract infection, site not specified Documented By: Antonio Lawrence MD 04/07/241316 Signed By: 04/09/[address] [place], [place] [id number] Progress note Author Dinora Hawkins [facility] Date/TimeNovember 2023 4:22pm [place] [address] Hospitalist Progress Note Signed Patient: Elizabeth Irvin MR#: [id number] : 1965 Acct:[id number] Age/Sex: 58 / F Adm Date: 4 Loc: Room: [address] [place] [address] Type: ADM IN Attending Dr: Dinora Hawkins MD Copies to: ~ Date of Service: 04/08/2024 Subjective Subjective Narrative: Patient seen and examined at bedside. She states that she is feeling better. She had some question regarding antibiotic therapy. No fever or leukocytosis today. Repeat cultures so far negative to date. Exam Physical Exam Vital Signs: Temp Pulse Resp BP Pulse Ox O2 Del Method 97.9 F 78 17 114/77 97 Room Air 04/08/24 08:00 04/08/24 12:00 04/08/24 12:00 04/08/24 12:00 04/08/24 12:00 04/08/24 12:00 Narrative: CONST- Appears well -developed and well nourished, pleasant, cooperative, lying comfortably in bed HEAD - Normocephalic and atraumatic EENT-Sclera nonicteric, conjunctive are non-erythemic, moist oral mucosa, pharynx clear NECK-Supple, no cervical lymphadenopathy CARDIAC-normal rate, regular rhythm, S1 & S2. PULM-diminished without wheeze or rhonchi, RA, no accessory muscle use or cough noted ABD - Soft. Bowel sounds are normal. No distention. Flank pain, tenderness with +ve CVA on the leftside, however decreased compared to yesterday. EXTREM-no edema BLE calves, nontender MS- MAEX4 spontaneously with equal with equal strength NEURO- A&Ox3 speech clear and tongue midline, equal facial symmetry, no focal motor deficits Objective Lab Results 04/08/24 05:08 04/08/24 05:08 Microbiology Results Microbiology 04/06/24 16:13 Urine - Clean-Voided Midstream Urine Culture - Final <9,000 colonies/ml mixed bacterial skin contaminants 2 Days 04/06/24 15:45 Blood - Left Antecubital Blood Culture - Preliminary No Growth 1 Day 04/06/24 20:03 Blood - Left Hand Blood Culture - Preliminary No Growth 1 Day Meds Allergies and Active Meds Allergies prednisolone Allergy (Unknown, Verified 10/21/23 11:20) hives, SOB valacyclovir (Valtrex) Allergy (Unknown, Verified 10/21/23 11:20) hives Active Meds: Active Medications Generic Name Dose Route Start Last Admin Trade Name Freq PRN Reason Stop Dose Admin Acetaminophen 1,000 mg 04/06/24 22:02 04/07/24 08:02 Acetaminophen 500 Mg Tablet PO 04/06/25 22:01 1,000 mg Q6HR PRN Administration Pain Scale 1 - 3 or fever Ceftriaxone Sodium 1 gm 04/07/24 20:00 04/07/24 21:00 Ceftriaxone 1 Gm/10 Ml Syringe IV-PUSH 1 gm Q24H MARGARETTE Administration Docusate Sodium 100 mg 04/08/24 09:00 04/08/24 09:31 Docusate Liquid 100 Mg/10 Ml Udc PO 04/08/25 08:59 100 mg DAILY MARGARETTE Administration Hydromorphone HCl 0.5 mg 04/06/24 22:02 04/07/24 10:33 Hydromorphone 0.5 Mg/0.5 Ml Syringe IV-PUSH 0.5 mg Q4H PRN Administration Pain Scale 8 - 10 Ondansetron HCl 4 mg 04/06/24 22:02 04/07/24 12:10 Ondansetron 4 Mg/2 Ml Vial IV-PUSH 04/06/25 22:01 4 mg Q6H PRN Administration Nausea And Vomiting Oxycodone HCl 5 mg 04/06/24 22:02 04/07/24 01:07 Oxycodone Ir 5 Mg Tablet PO 5 mg Q6HR PRN Administration Pain Scale 4 - 7 Polyethylene Glycol 17 gm 04/08/24 08:30 04/08/24 09:35 Polyethylene Glycol 3350 17 Gm Powd.Pack PO 04/08/25 08:29 17 gm DAILY MARGARETTE Administration Sodium Chloride 0 ml 04/07/24 06:00 04/08/24 09:31 Sodium Chloride 0.9 % 10 Ml Syringe IV-PUSH 04/07/25 05:59 10 ml QSHIFT MARGARETTE Administration A&P - Hospitalist Assessment/Plan (1) UTI (urinary tract infection): (2) Pyelonephritis: (3) CKD (chronic kidney disease) stage 4, GFR 15-29 ml/min: Plan Recurrent UTI and clinical pyelonephritis ?failed outpatient treatment ? Continue ceftriaxone IV -Follow up on her new urine cultures and blood cultures and adjust antibiotic accordingly, results may be influenced by her recent PO antibiotic intake -Urology consulted given her hx of recurrent nephrolithiasis, recommended outpt PO antibiotics -This patient's recurrent UTI and symptoms and history of stones I prefer keeping her IV antibiotics until the blood cultures are negative to rule out anybacteremia -No fever or leukocytosis for now -I discussed the plan of management in details with the patient at bedside. I also ordered an ID consult. -She was complaining of constipation which I gave her MiraLAX and Colace for Normocytic anemia likely in the setting of CKD and chronic inflammation -Creatinine stable and patient follows up with nephrology as outpatient Chronic conditions CKD stage IV HTN T2DM?currently off all medications due to weight loss DVT PPx?SCDs, I added HSQ Diet order?regular CODE STATUS?full code I discussed the plan of management with the pt at bedside in details. I answeredher questions and addressed her concerns. Time Spent With Patient (min): 50 Documented By: Dinora Hawkins MD 04/08/24 1617 Signed By: <Electronically signed by Dinora Hawkins MD> 04/08/24 1624 [facility] Work Phone: 1(993) 243-439511-16-[address] [address] Hospitalist Progress Note Signed Patient: Elizabeth Irvin MR#: [id number] : 1965 Acct:[id number] Age/Sex: 58 / F Adm Date: 4 Loc: 3T Room: [address] [place] [address] Type: ADM IN Attending Dr: Dinora Hawkins MD Copies to: ~ Date of Service: 04/08/2024 Subjective Subjective Narrative: Patient seen and examined at bedside. She states that she is feeling better. She had some question regarding antibiotic therapy. No fever or leukocytosis today. Repeat cultures so far negative to date. Exam Physical Exam Vital Signs: Temp Pulse Resp BP Pulse Ox O2 Del Method 97.9 F 78 17 114/77 97 Room Air 04/08/24 08:00 04/08/24 12:00 04/08/24 12:00 04/08/24 12:00 04/08/24 12:00 04/08/24 12:00 Narrative: CONST- Appears well -developed and well nourished, pleasant, cooperative, lying comfortably in bed HEAD - Normocephalic and atraumatic EENT-Sclera nonicteric, conjunctive are non-erythemic, moist oral mucosa, pharynx clear NECK-Supple, no cervical lymphadenopathy CARDIAC-normal rate, regular rhythm, S1 & S2. PULM-diminished without wheeze or rhonchi, RA, no accessory muscle use or cough noted ABD - Soft. Bowel sounds are normal. No distention. Flank pain, tenderness with +ve CVA on the leftside, however decreased compared to yesterday. EXTREM-no edema BLE calves, nontender MS- MAEX4 spontaneously with equal with equal strength NEURO- A&Ox3 speech clear and tongue midline, equal facial symmetry, no focal motor deficits Objective Lab Results 04/08/24 05:08 04/08/24 05:08 Microbiology Results Microbiology 04/06/24 16:13 Urine - Clean-Voided Midstream Urine Culture - Final <9,000 colonies/ml mixed bacterial skin contaminants 2 Days 04/06/24 15:45 Blood - Left Antecubital Blood Culture - Preliminary No Growth 1 Day 04/06/24 20:03 Blood - Left Hand Blood Culture - Preliminary No Growth 1 Day Meds Allergies and Active Meds Allergies prednisolone Allergy (Unknown, Verified 10/21/23 11:20) hives, SOB valacyclovir (Valtrex) Allergy (Unknown, Verified 10/21/23 11:20) hives Active Meds: Active Medications Generic Name Dose Route Start Last Admin Trade Name Freq PRN Reason Stop Dose Admin Acetaminophen 1,000 mg 04/06/24 22:02 04/07/24 08:02 Acetaminophen 500 Mg Tablet PO 04/06/25 22:01 1,000 mg Q6HR PRN Administration Pain Scale 1 - 3 or fever Ceftriaxone Sodium 1 gm 04/07/24 20:00 04/07/24 21:00 Ceftriaxone 1 Gm/10 Ml Syringe IV-PUSH 1 gm Q24H MARGARETTE Administration Docusate Sodium 100 mg 04/08/24 09:00 04/08/24 09:31 Docusate Liquid 100 Mg/10 Ml Udc PO 04/08/25 08:59 100 mg DAILY MARGARETTE Administration Hydromorphone HCl 0.5 mg 04/06/24 22:02 04/07/24 10:33 Hydromorphone 0.5 Mg/0.5 Ml Syringe IV-PUSH 0.5 mg Q4H PRN Administration Pain Scale 8 - 10 Ondansetron HCl 4 mg 04/06/24 22:02 04/07/24 12:10 Ondansetron 4 Mg/2 Ml Vial IV-PUSH 04/06/25 22:01 4 mg Q6H PRN Administration Nausea And Vomiting Oxycodone HCl 5 mg 04/06/24 22:02 04/07/24 01:07 Oxycodone Ir 5 Mg Tablet PO 5 mg Q6HR PRN Administration Pain Scale 4 - 7 Polyethylene Glycol 17 gm 04/08/24 08:30 04/08/24 09:35 Polyethylene Glycol 3350 17 Gm Powd.Pack PO 04/08/25 08:29 17 gm DAILY MARGARETTE Administration Sodium Chloride 0 ml 04/07/24 06:00 04/08/24 09:31 Sodium Chloride 0.9 % 10 Ml Syringe IV-PUSH 04/07/25 05:59 10 ml QSHIFT MARGARETTE Administration A&P - Hospitalist Assessment/Plan (1) UTI (urinary tract infection): (2) Pyelonephritis: (3) CKD (chronic kidney disease) stage 4, GFR 15-29 ml/min: Plan Recurrent UTI and clinical pyelonephritis ?failed outpatient treatment ? Continue ceftriaxone IV -Follow up on her new urine cultures and blood cultures and adjust antibiotic accordingly, results may be influenced by her recent PO antibiotic intake -Urology consulted given her hx of recurrent nephrolithiasis, recommended outpt PO antibiotics -This patient's recurrent UTI and symptoms and history of stones I prefer keeping her IV antibiotics until the blood cultures are negative to rule out anybacteremia -No fever or leukocytosis for now -I discussed the plan of management in details with the patient at bedside. I also ordered an ID consult. -She was complaining of constipation which I gave her MiraLAX and Colace for Normocytic anemia likely in the setting of CKD and chronic inflammation -Creatinine stable and patient follows up with nephrology as outpatient Chronic conditions CKD stage IV HTN T2DM?currently off all medications due to weight loss DVT PPx?SCDs, I added HSQ Diet order?regular CODE STATUS?full code I discussed the plan of management with the pt at bedside in details. I answeredher questions and addressed her concerns. Time Spent With Patient (min): 50 Documented By: Dinora Hawkins MD 04/08/241616 Signed By: 04/08/242 [facility] Progress note Author Dinora Hawkins [facility] Date/TimeNovember 2023 3:53pm [place] [address] Hospitalist Progress Note Signed Patient: Elizabeth Irvni MR#: [id number] : 1965 Acct:[id number] Age/Sex: 58 / F Adm Date: 4 Loc: Room: [address] [place] [address] Type: ADM IN Attending Dr: Dinora Hawkins MD Copies to: ~ Date of Service: 04/07/2024 Subjective Subjective Narrative: Patient seen examined at bedside. I took over this patient care from overnight admission. She does have urinary symptoms despite being on oral antibiotic which is an indication for inpatient mission state of observation. Patient is on ceftriaxone 1 g every 24 hours for now. Urology was consulted for his stone history. No other issues overnight. She also requires IV Dilaudid as needed for pain. Also there is a concern for possible bacteremia given her resistant UTI on oral antibiotics as well astreatment for clinical pyelonephritis. Please note that the CT abdomen pelvis done on admission waswithout IV contrastgiven her chronic kidney disease, when this will interfere with diagnostic pain nephritis radiographically. Exam Physical Exam Vital Signs: Temp Pulse Resp BP Pulse Ox O2 Del Method 97.4 F L 71 14 123/76 99 Room Air 04/07/24 08:03 04/07/24 08:03 04/07/24 08:03 04/07/24 08:03 04/07/24 08:03 04/07/24 08:03 Narrative: CONST- Appears well -developed and well nourished, pleasant, cooperative, lying comfortably in bed HEAD - Normocephalic and atraumatic EENT-Sclera nonicteric, conjunctive are non-erythemic, moist oral mucosa, pharynx clear NECK-Supple, no cervical lymphadenopathy CARDIAC-normal rate, regular rhythm, S1 & S2. PULM-diminished without wheeze or rhonchi, RA, no accessory muscle use or cough noted ABD - Soft. Bowel sounds are normal. No distention. Flank pain, tenderness with +ve CVA EXTREM-no edema BLE calves, nontender MS- MAEX4 spontaneously with equal with equal strength NEURO- A&Ox3 speech clear and tongue midline, equal facial symmetry, no focal motor deficits Objective Lab Results 04/07/24 06:23 04/07/24 06:23 Microbiology Results Microbiology 04/06/24 16:13 Urine - Clean-Voided Midstream Urine Culture - Preliminary No Growth 1 Day Meds Allergies and Active Meds Allergies prednisolone Allergy (Unknown, Verified 10/21/23 11:20) hives, SOB valacyclovir (Valtrex) Allergy (Unknown, Verified 10/21/23 11:20) hives Active Meds: Active Medications Generic Name Dose Route Start Last Admin Trade Name Freq PRN Reason Stop Dose Admin Acetaminophen 1,000 mg 04/06/24 22:02 04/07/24 08:02 Acetaminophen 500 Mg Tablet PO 04/06/25 22:01 1,000 mg Q6HR PRN Administration Pain Scale 1 - 3 or fever Ceftriaxone Sodium 1 gm 04/07/24 20:00 Ceftriaxone 1 Gm/10 Ml Syringe IV-PUSH Q24H MARGARETTE Hydromorphone HCl 0.5 mg 04/06/24 22:02 04/07/24 10:33 Hydromorphone 0.5 Mg/0.5 Ml Syringe IV-PUSH 0.5 mg Q4H PRN Administration Pain Scale 8 - 10 Ondansetron HCl 4 mg 04/06/24 22:02 04/07/24 05:18 Ondansetron 4 Mg/2 Ml Vial IV-PUSH 04/06/25 22:01 4 mg Q6H PRN Administration Nausea And Vomiting Oxycodone HCl 5 mg 04/06/24 22:02 04/07/24 01:07 Oxycodone Ir 5 Mg Tablet PO 5 mg Q6HR PRN Administration Pain Scale 4 - 7 Sodium Chloride 0 ml 04/07/24 06:00 04/07/24 05:19 Sodium Chloride 0.9 % 10 Ml Syringe IV-PUSH 04/07/25 05:59 10 ml QSHIFT MARGARETTE Administration A&P - Hospitalist Assessment/Plan (1) UTI (urinary tract infection): (2) Pyelonephritis: (3) CKD (chronic kidney disease) stage 4, GFR 15-29 ml/min: Plan Recurrent UTI and clinical pyelonephritis ?failed outpatient treatment ? Continue ceftriaxone IV -Follow up on her new urine cultures and blood cultures and adjust antibiotic accordingly, results may be influenced by her recent PO antibiotic intake -Urology consulted given her hx of recurrent nephrolithiasis Normocytic anemia likely in the setting of CKD and chronic inflammation Chronic conditions CKD stage IV HTN T2DM?currently off all medications due to weight loss DVT PPx?SCDs Diet order?regular CODE STATUS?full code I discussed the plan of management with the pt at bedside in details. I answeredher questions and addressed her concerns. Time Spent With Patient (min): 50 Documented By: Dinora Hawkins MD 04/07/24 1139 Signed By: <Electronically signed by Dinora Hawkins MD> 04/07/[address] [facility] Work Phone: [phone]) 370-997511-15-2024 [place] [address] Hospitalist Progress Note Signed Patient: Elizabeth Irvin MR#: [id number] : 1965 Acct:[id number] Age/Sex: 58 / F Adm Date: 4 Loc: 3T Room: [address] [place] [address] Type: ADM IN Attending Dr: Dinora Hawkins MD Copies to: ~ Date of Service: 04/07/2024 Subjective Subjective Narrative: Patient seen examined at bedside. I took over this patient care from overnight admission. She does have urinary symptoms despite being on oral antibiotic which is an indication for inpatient mission state of observation. Patient is on ceftriaxone 1 g every 24 hours for now. Urology was consulted for his stone history. No other issues overnight. She also requires IV Dilaudid as needed for pain. Also there is a concern for possible bacteremia given her resistant UTI on oral antibiotics as well astreatment for clinical pyelonephritis. Please note that the CT abdomen pelvis done on admission waswithout IV contrastgiven her chronic kidney disease, when this will interfere with diagnostic pain nephritis radiographically. Exam Physical Exam Vital Signs: Temp Pulse Resp BP Pulse Ox O2 Del Method 97.4 F L 71 14 123/76 99 Room Air 04/07/24 08:03 04/07/24 08:03 04/07/24 08:03 04/07/24 08:03 04/07/24 08:03 04/07/24 08:03 Narrative: CONST- Appears well -developed and well nourished, pleasant, cooperative, lying comfortably in bed HEAD - Normocephalic and atraumatic EENT-Sclera nonicteric, conjunctive are non-erythemic, moist oral mucosa, pharynx clear NECK-Supple, no cervical lymphadenopathy CARDIAC-normal rate, regular rhythm, S1 & S2. PULM-diminished without wheeze or rhonchi, RA, no accessory muscle use or cough noted ABD - Soft. Bowel sounds are normal. No distention. Flank pain, tenderness with +ve CVA EXTREM-no edema BLE calves, nontender MS- MAEX4 spontaneously with equal with equal strength NEURO- A&Ox3 speech clear and tongue midline, equal facial symmetry, no focal motor deficits Objective Lab Results 04/07/24 06:23 04/07/24 06:23 Microbiology Results Microbiology 04/06/24 16:13 Urine - Clean-Voided Midstream Urine Culture - Preliminary No Growth 1 Day Meds Allergies and Active Meds Allergies prednisolone Allergy (Unknown, Verified 10/21/23 11:20) hives, SOB valacyclovir (Valtrex) Allergy (Unknown, Verified 10/21/23 11:20) hives Active Meds: Active Medications Generic Name Dose Route Start Last Admin Trade Name Freq PRN Reason Stop Dose Admin Acetaminophen 1,000 mg 04/06/24 22:02 04/07/24 08:02 Acetaminophen 500 Mg Tablet PO 04/06/25 22:01 1,000 mg Q6HR PRN Administration Pain Scale 1 - 3 or fever Ceftriaxone Sodium 1 gm 04/07/24 20:00 Ceftriaxone 1 Gm/10 Ml Syringe IV-PUSH Q24H MARGARETTE Hydromorphone HCl 0.5 mg 04/06/24 22:02 04/07/24 10:33 Hydromorphone 0.5 Mg/0.5 Ml Syringe IV-PUSH 0.5 mg Q4H PRN Administration Pain Scale 8 - 10 Ondansetron HCl 4 mg 04/06/24 22:02 04/07/24 05:18 Ondansetron 4 Mg/2 Ml Vial IV-PUSH 04/06/25 22:01 4 mg Q6H PRN Administration Nausea And Vomiting Oxycodone HCl 5 mg 04/06/24 22:02 04/07/24 01:07 Oxycodone Ir 5 Mg Tablet PO 5 mg Q6HR PRN Administration Pain Scale 4 - 7 Sodium Chloride 0 ml 04/07/24 06:00 04/07/24 05:19 Sodium Chloride 0.9 % 10 Ml Syringe IV-PUSH 04/07/25 05:59 10 ml QSHIFT MARGARETTE Administration A&P - Hospitalist Assessment/Plan (1) UTI (urinary tract infection): (2) Pyelonephritis: (3) CKD (chronic kidney disease) stage 4, GFR 15-29 ml/min: Plan Recurrent UTI and clinical pyelonephritis ?failed outpatient treatment ? Continue ceftriaxone IV -Follow up on her new urine cultures and blood cultures and adjust antibiotic accordingly, results may be influenced by her recent PO antibiotic intake -Urology consulted given her hx of recurrent nephrolithiasis Normocytic anemia likely in the setting of CKD and chronic inflammation Chronic conditions CKD stage IV HTN T2DM?currently off all medications due to weight loss DVT PPx?SCDs Diet order?regular CODE STATUS?full code I discussed the plan of management with the pt at bedside in details. I answeredher questions and addressed her concerns. Time Spent With Patient (min): 50 Documented By: Dinora Hawkins MD 04/07/24 1132 Signed By: 04/07/24 1553 [facility]2024 Consult note Author Antonio Lawrence [facility] Date/TimeNovember 2023 1:17pm [place] [address] Urology Consult Note Signed Patient: Elizabeth Irvin MR#: [id number] : 1965 Acct:[id number] Age/Sex: 58 / F Adm Date: 4 Loc: Room: [address] [place] [address] Type: ADM IN Attending Dr: Dinora Hawkins MD Copies to: MD Antonio Bee MD Mohamad Akil, MD~ History of Present Illness Consult Details Consult Date: 04/07/2024 Requesting Provider: Dinora Hawkins MD HPI: Pt admit w/ uti/subjective fever; no fever while in house and wbc nl. 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 Anemia of renal disease Surgical History History of kidney surgery H/O: hysterectomy Gastric bypass status for obesity History of carpal tunnel release Family History Father , @ 69 years old from [place] Heart disease History of stroke Legacy FamHx Problem: Diagnosed with Stroke Myocardial infarction Mother Cancer Legacy FamHx Problem: Diagnosed with Cancer Hypertension Heart disease History of stroke Legacy FamHx Problem: Diagnosed with Stroke 64 yrs Myocardial infarction Stroke TIA (transient ischemic attack) Diabetes Social History Smoking Status: Never smoker Substance Use Type: None Meds Medications and Allergies Allergies prednisolone Allergy (Unknown, Verified 10/21/23 11:20) hives, SOB valacyclovir (Valtrex) Allergy (Unknown, Verified 10/21/23 11:20) hives Home Medications furosemide 40 mg tablet (Lasix) 40 mg PO BID #180 tabs 01/26/24 [Rx Confirmed 04/06/24] ergocalciferol (vitamin D2) 1,250 mcg (50,000 unit) capsule 1,250 mcg PO QWEEK #14 caps 04/06/24 [Rx Confirmed 04/06/24] acetaminophen 500 mg tablet 1,000 mg (2 x 500 mg) PO Q8H PRN Pain Scale 1 - 3 orfever 15 days #45 tabs 04/09/24 [Rx] ciprofloxacin HCl 250 mg tablet (Cipro) 250 mg PO Q12HR 7 days #14 tabs 04/09/24 [Rx] docusate sodium 50 mg/5 mL oral liquid 100 mg (10 mL) PO DAILY 10 days #100 mL 04/09/24 [Rx] polyethylene glycol 3350 17 gram oral powder packet (HealthyLax) 17 g PO DAILY 15 days #15 ea 04/09/24 [Rx] Exam Physical Exam Vital Signs: Temp Pulse Resp BP Pulse Ox O2 Del Method 97.9 F 66 14 118/76 100 Room Air 04/07/24 12:01 04/07/24 12:01 04/07/24 12:01 04/07/24 12:01 04/07/24 12:01 04/07/24 12:01 Narrative: a and o x 3; [facility] Results - Urology Labs 04/09/24 04:27 04/09/24 04:27 Labs: Laboratory Results - Last 48 hrs. 04/07/24 06:23: Corrected WBC 3.2 L, Uncorrected WBC Count 3.2 L, RBC 3.73, Hgb 9.9 L, Hct 30.7 L, MCV 82.4, MCH 26.7, MCHC 32.4, RDW 15.5 H, Plt Count 152, MPV 7.8, Neut % (Auto) N/A, Lymph % (Auto)N/A, Cambria % (Auto) N/A, Eos % (Auto) N/A, Baso % (Auto) N/A, Nucleat RBC Rel Count N/A, Neut # (Auto) N/A, Lymph # (Auto) N/A, Cambria # (Auto) N/A, Eos # (Auto) N/A, Baso # (Auto) N/A, Band Neutrophils% 7 H, Lymphocytes % 16 L, Monocytes % 7, Eosinophils % 2, Segmented Neutrophils 69, Platelet Estimate Normal, Plt Morphology Comment Normal, RBC Morphology N/A, Anisocytosis Slight, Ovalocytes Slight, PHA Creatinine Clear 36.40, Sodium 139, Potassium 3.8, Chloride 111 H, Carbon Dioxide 22.5, AnionGap 9.3, BUN 19, Creatinine 1.53 H, Est GFR (CKD-EPI) 38.958, Glucose 87, Calcium 8.2 L, Magnesium 1.9 04/06/24 20:03: Lactic Acid 1.3 04/06/24 16:13: Urine Color Light-yellow, Urine Appearance Clear, Urine pH 6.0, Ur Specific Gravity1.015, Urine Protein 50 H, Urine Glucose (UA) Normal, Urine Ketones Negative, Urine Occult Blood 1+H, Urine Nitrite Negative, Urine Bilirubin Negative, Urine Urobilinogen Normal, Ur Leukocyte Esterase 3+ H, Urine RBC 3-4, Urine WBC 20-49 H, Ur Squamous Epith Cells 1-2, Urine Bacteria Rare, HyalineCasts 0-8, Urine Mucus Rare 04/06/24 15:50: Corrected WBC 3.4 L, Uncorrected WBC Count 3.4 L, RBC 4.27, Hgb 11.4 L, Hct 34.8, MCV 81.4, MCH 26.8, MCHC 32.9, RDW 15.5 H, Plt Count 185, MPV 7.5, Neut % (Auto) 78.2, Lymph % (Auto)9.9, Cambria % (Auto) 10.2, Eos % (Auto) 1.0, Baso % (Auto) 0.7, Nucleat RBC Rel Count 0.1, Neut # (Auto) 2.6, Lymph # (Auto) 0.3 L, Camb[place] # (Auto) 0.3, Eos # (Auto) 0.0, Baso # (Auto) 0.0, Monocyte DistWidth 26.41 H, PHA Creatinine Clear 30.77, Sodium 138, Potassium 3.5, Chloride 107, Carbon Dioxide 22.4, Anion Gap 12.1, BUN 24, Creatinine 1.81 H, Est GFR (CKD-EPI) 31.843, Glucose 98, Calcium 8.8, Total Bilirubin 0.4, Direct Bilirubin 0.00 L, Indirect Bilirubin 0.4, AST 41 H, ALT 20, Alkaline Phosphatase 132 H, Total Protein 6.7, Albumin 3.3 L, Globulin 3.4, Albumin/Globulin Ratio 1.0, Lipase 30.0 Microbiology Microbiology: 04/06/24 16:13 Urine - Clean-Voided Midstream Urine Culture - Preliminary No Growth 1 Day 04/06/24 15:45 Blood - Left Antecubital Blood Culture - Pending 04/06/24 20:03 Blood - Left Hand Blood Culture - Pending Imaging CT scan - abdomen: report reviewed and image reviewed Assessment/Plan (1) Kidney stones: Plan: pt feels fine; no surgery needed as kidney likely non-fxn and no overt signs sepsis; as such can dchome on 10 days total abx; rec f/u nephrology. Does not need to see [facility] urology at this time. Pt admit w/ uti/subjective fever; no fever while in house and wbc nl. ua c/w likely infection creat stable ct reviewed--tiny atrophic left kidney w/ prox left ureter stone; right kidney fine pt w/ long hx stones tx at [facility]/ dr odonnell Code(s): N20.0 - Calculus of kidney (2) Pyelonephritis: Plan: s Code(s): N12 - Tubulo-interstitial nephritis, not specified as acute or chronic (3) UTI (urinary tract infection): Plan: same Code(s): N39.0 - Urinary tract infection, site not specified Documented By: Antonio Lawrence MD 04/07/241316 Signed By: <Electronically signed by Antonio Lawrence MD> 04/09/241316 [facility] Work Phone: [phone] 775-585711-15-2024 History and physical note Author Cecille Morel [facility] LimaNote Date/TimeNovember 2023 11:37pm [place] [address] Hospitalist H&P Signed Patient: Elizabeth Irvin MR#: [id number] : 1965 Acct:[id number] Age/Sex: 58 / F Adm Date: 4 Loc: Room: 7G0225-7 Type: ADM INOo Attending Dr: Barbara Christy MD Copies to: MD Barbara Bee MD Paula G Smith, HELP DESK ENGINEER~ HPI DATE OF EXAMINATION: 04/06/24 CHIEF COMPLAINT: uti, fever HISTORY OF PRESENT ILLNESS: Ms. Puckett is a 58-year-old female with a PMH of CKD stage IV?follows with Dr. Cavanaugh, kidney stones, anemia of chronic disease, HTN, T2DM the presents to the emergency room tonight for UTI. Patient reports that she has had flank pain forthe last 2 weeks, Wednesday she developed burning with urination, was prescribed antibiotics but she could not obtain them until Wednesday, had her first dose of cefuroxime Wednesday evening. She had a 6-month checkup with Dr. Barnhart today who found that she had a low-grade fever, also told her she needed to go to the emergency room. She describes the flank pain has a severe ache with churning, denies any aggravating or relieving factors. States the burning with urination stopped after her second dose of cefuroxime, she reports no odor, states her urine was darker than usual. She also states that she has had a low- grade feverand chills over the week. Reports that she has been so busy she does not think about it. She states that she always feels pressure and discomfort however now she has urgency. She has never smoked, drinks 1 glass of alcohol maybe 2-3 times a year, denies illicit drug use. She states that she is no longer on blood pressure medications or diabetic medications due to gastric bypass and significant weight loss. CT of the abdomen pelvis shows marked atrophy of the left kidney with a proximal5 mm left ureteral stone, small right renal cyst?no right hydronephrosis or obstructing stone, urinary bladder wall thickening?underdistention versus cystitis. CBC with white blood cell count of 3.4, H&H 11.4/34.8. CMP with a creatinine of 1.81, ALP 132 UA with light yellow, clear urine with 50 protein, 1+ occult blood, 3+ leukocytes, 20-49 WBCs, rare amount of bacteria, culture is pending. Blood cultures were drawn and these are also pending. Previous culture shows E. coli. Patient was medicated with ceftriaxone, morphine, Zofran, hydromorphone and 1 L saline bolus. She will be admitted as observationto the medical floor. Review of Systems Review of Systems Review of systems: A 10 point review of systems was obtained, negative unless noted in the HPI orbelow. 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 Anemia of renal disease Surgical History History of kidney surgery H/O: hysterectomy Gastric bypass status for obesity History of carpal tunnel release Family History Father , @ 69 years old from [place] Heart disease History of stroke Legacy FamHx Problem: Diagnosed with Stroke Myocardial infarction Mother Cancer Legacy FamHx Problem: Diagnosed with Cancer Hypertension Heart disease History of stroke Legacy FamHx Problem: Diagnosed with Stroke 64 yrs Myocardial infarction Stroke TIA (transient ischemic attack) Diabetes Social History Marital Status: Household Members: spouse Smoking Status: Never smoker Substance Use Type: None Current Occupation: [employer] Medications and Allergies Allergies prednisolone Allergy (Unknown, Verified 10/21/23 11:20) hives, SOB valacyclovir (Valtrex) Allergy (Unknown, Verified 10/21/23 11:20) hives Home Medications furosemide 40 mg tablet (Lasix) 40 mg PO BID #180 tabs 01/26/24 [Rx Confirmed 04/06/24] cefuroxime axetil 250 mg tablet 250 mg PO BID 04/06/24 [History Confirmed 04/06/24] ergocalciferol (vitamin D2) 1,250 mcg (50,000 unit) capsule 1,250 mcg PO QWEEK #14 caps 04/06/24 [Rx Confirmed 04/06/24] Exam Physical Exam Vital Signs: Temp Pulse Resp BP Pulse Ox O2 Del Method 98.9 F 74 16 133/78 100 Room Air 04/06/24 19:30 04/06/24 21:09 04/06/24 21:09 04/06/24 21:09 04/06/24 21:09 04/06/24 21:09 Narrative: CONST- Appears well -developed and well nourished. HEAD - Normocephalic and atraumatic EENT-Sclera nonicteric, conjunctive are non-erythemic, moist oral mucosa, pharynx clear NECK-Supple, no cervical lymphadenopathy CARDIAC-normal rate, regular rhythm, S1 & S2. PULM-diminished without wheeze or rhonchi, RA, no accessory muscle use or cough noted ABD - Soft. Bowel sounds are normal. No distention. Flank pain, tenderness EXTREM-no edema BLE calves, nontender SKIN- W/D good turgor MS- MAEX4 spontaneously with equal with equal strength NEURO- A&Ox3 speech clear and tongue midline, equal facial symmetry, no focal motor deficits PSYCH-Mood, affect, and behavior appropriate Results - Hospitalist H&P Lab Results Labs: Laboratory Last Values Corrected WBC 3.4 X10E3/uL (3.8-11.6) L 04/06/24 15:50 Uncorrected WBC Count 3.4 x10E3/uL (3.8-11.6) L 04/06/24 15:50 RBC 4.27 x10E6/uL (3.60-5.00) 04/06/24 15:50 Hgb 11.4 g/dL (11.8-15.4) L 04/06/24 15:50 Hct 34.8 % (34.0-46.4) 04/06/24 15:50 MCV 81.4 fl (80-100) 04/06/24 15:50 MCH 26.8 pg (24.7-34.3) 04/06/24 15:50 MCHC 32.9 g/dL (32.0-35.0) 04/06/24 15:50 RDW 15.5 % (11.9-15.3) H 04/06/24 15:50 Plt Count 185 x10E3/uL (150-450) 04/06/24 15:50 MPV 7.5 fl (6.3-10.7) 04/06/24 15:50 Neut % (Auto) 78.2 % (.) 04/06/24 15:50 Lymph % (Auto) 9.9 % (.) 04/06/24 15:50 Cambria % (Auto) 10.2 % (.) 04/06/24 15:50 Eos % (Auto) 1.0 % (.) 04/06/24 15:50 Baso % (Auto) 0.7 % (.) 04/06/24 15:50 Nucleat RBC Rel Count 0.1 /100 WBC (0-0.5) 04/06/24 15:50 Neut # (Auto) 2.6 x10E3/uL (1.8-7.7) 04/06/24 15:50 Lymph # (Auto) 0.3 x10E3/uL (1.00-4.8) L 04/06/24 15:50 Cambria # (Auto) 0.3 x10E3/uL (0.0-0.8) 04/06/24 15:50 Eos # (Auto) 0.0 x10E3/uL (0.0-0.45) 04/06/24 15:50 Baso # (Auto) 0.0 x10E3/uL (0.0-0.2) 04/06/24 15:50 Monocyte Dist Width 26.41 % (0.00-20.00) H 04/06/24 15:50 PHA Creatinine Clear 30.77 04/06/24 15:50 Sodium 138 mmol/L (136-145) 04/06/24 15:50 Potassium 3.5 mmol/L (3.5-5.1) 04/06/24 15:50 Chloride 107 mmol/L (98-107) 04/06/24 15:50 Carbon Dioxide 22.4 mmol/L (21.0-31.0) 04/06/24 15:50 Anion Gap 12.1 mEq/L (6.0-15.0) 04/06/24 15:50 BUN 24 mg/dL (7-25) 04/06/24 15:50 Creatinine 1.81 mg/dL (0.60-1.20) H 04/06/24 15:50 Est GFR (CKD-EPI) 31.843 mL/Min 04/06/24 15:50 Glucose 98 mg/dL (70-100) 04/06/24 15:50 Lactic Acid 1.3 mmol/L (0.5-2.2) 04/06/24 20:03 Calcium 8.8 mg/dL (8.6-10.3) 04/06/24 15:50 Total Bilirubin 0.4 mg/dl (0.3-1.0) 04/06/24 15:50 Direct Bilirubin 0.00 mg/dL (0.03-0.18) L 04/06/24 15:50 Indirect Bilirubin 0.4 mg/dL 04/06/24 15:50 AST 41 U/L (13-39) H 04/06/24 15:50 ALT 20 U/L (7-52) 04/06/24 15:50 Alkaline Phosphatase 132 U/L (34-104) H 04/06/24 15:50 Total Protein 6.7 gm/dL (6.4-8.9) 04/06/24 15:50 Albumin 3.3 gm/dL (3.5-5.7) L 04/06/24 15:50 Globulin 3.4 gm/dL 04/06/24 15:50 Albumin/Globulin Ratio 1.0 04/06/24 15:50 Lipase 30.0 U/L (11.0-82.0) 04/06/24 15:50 Urine Color Light-yellow (Yellow) 04/06/24 16:13 Urine Appearance Clear (Clear) 04/06/24 16:13 Urine pH 6.0 (5.0-9.0) 04/06/24 16:13 Ur Specific Rangely 1.015 (1.001-1.030) 04/06/24 16:13 Urine Protein 50 mg/dL (Negative) H 04/06/24 16:13 Urine Glucose (UA) Normal mg/dL (Normal) 04/06/24 16:13 Urine Ketones Negative (Negative) 04/06/24 16:13 Urine Occult Blood 1+ (Negative) H 04/06/24 16:13 Urine Nitrite Negative (Negative) 04/06/24 16:13 Urine Bilirubin Negative (Negative) 04/06/24 16:13 Urine Urobilinogen Normal mg/dL (Normal) 04/06/24 16:13 Ur Leukocyte Esterase 3+ (Negative) H 04/06/24 16:13 Urine RBC 3-4 /HPF (0-4) 04/06/24 16:13 Urine WBC 20-49 /HPF (0-4) H 04/06/24 16:13 Ur Squamous Epith Cells 1-2 /HPF (0-2) 04/06/24 16:13 Urine Bacteria Rare /HPF (None Seen) 04/06/24 16:13 Hyaline Casts 0-8 /LPF (0-8) 04/06/24 16:13 Urine Mucus Rare /LPF 04/06/24 16:13 Assessment & Plan Assessment/Plan (1) UTI (urinary tract infection): (2) Pyelonephritis: (3) CKD (chronic kidney disease) stage 4, GFR 15-29 ml/min: Plan UTI?failed outpatient treatment Suspected Pyelonephritis ? Continue ceftriaxone?pharmacy to dose ? Follow blood cultures, urine culture Chronic conditions CKD stage IV HTN T2DM?currently off all medications due to weight loss DVT PPx?SCDs Diet order?regular CODE STATUS?full code Attending Physician Attestation: I personally reviewed the history, performed the samayoa elements of the exam, formulated the plan of care and confirmed the written note. I agree with the findings and plan as documented in this note and have edited it if needed to reflect my findings and plan. Barbara Zamora MD IP vs OBS Justification Based on differential dx, clinical care plan, and risk of adverse events, if untreated, in my clinical judgement this patient requires an acute care setting as: OBSERVATION because of an expectation of an under 2 midnight stay. Estimated length of stay (# of days): 2 Documented By: Cecille Morel APRN 04/06/242204 Signed By: <Electronically signed by HAIR Morel> 04/06/242332 <Electronically signed by Barbara Christy MD> 04/06/242336 [facility] Work Phone: [phone]) 180-533911-14-2024 History and physical note[address] [place] [address] Hospitalist H&P Signed Patient: Elizabeth Irvin MR#: [id number] : 1965 Acct:[id number] Age/Sex: 58 / F Adm Date: 4 Loc: Room: 9N0479-6 Type: ADM INOo Attending Dr: Barbara Christy MD Copies to: MD Barbara Bee MD Paula G Smith, HELP DESK ENGINEER~ HPI DATE OF EXAMINATION: 04/06/24 CHIEF COMPLAINT: uti, fever HISTORY OF PRESENT ILLNESS: Ms. Puckett is a 58-year-old female with a PMH of CKD stage IV?follows with Dr. Cavanaugh, kidney stones, anemia of chronic disease, HTN, T2DM the presents to the emergency room tonight for UTI. Patient reports that she has had flank pain forthe last 2 weeks, Wednesday she developed burning with urination, was prescribed antibiotics but she could not obtain them until Wednesday, had her first dose of cefuroxime Wednesday evening. She had a 6-month checkup with Dr. Barnhart today who found that she had a low-grade fever, also told her she needed to go to the emergency room. She describes the flank pain has a severe ache with churning, denies any aggravating or relieving factors. States the burning with urination stopped after her second dose of cefuroxime, she reports no odor, states her urine was darker than usual. She also states that she has had a low- grade feverand chills over the week. Reports that she has been so busy she does not think about it. She states that she always feels pressure and discomfort however now she has urgency. She has never smoked, drinks 1 glass of alcohol maybe 2-3 times a year, denies illicit drug use. She states that she is no longer on blood pressure medications or diabetic medications due to gastric bypass and significant weight loss. CT of the abdomen pelvis shows marked atrophy of the left kidney with a proximal5 mm left ureteral stone, small right renal cyst?no right hydronephrosis or obstructing stone, urinary bladder wall thickening?underdistention versus cystitis. CBC with white blood cell count of 3.4, H&H 11.4/34.8. CMP with a creatinine of 1.81, ALP 132 UA with light yellow, clear urine with 50 protein, 1+ occult blood, 3+ leukocytes, 20-49 WBCs, rare amount of bacteria, culture is pending. Blood cultures were drawn and these are also pending. Previous culture shows E. coli. Patient was medicated with ceftriaxone, morphine, Zofran, hydromorphone and 1 L saline bolus. She will be admitted as observationto the medical floor. Review of Systems Review of Systems Review of systems: A 10 point review of systems was obtained, negative unless noted in the HPI orbelow. 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 Anemia of renal disease Surgical History History of kidney surgery H/O: hysterectomy Gastric bypass status for obesity History of carpal tunnel release Family History Father , @ 69 years old from [place] Heart disease History of stroke Legacy FamHx Problem: Diagnosed with Stroke Myocardial infarction Mother Cancer Legacy FamHx Problem: Diagnosed with Cancer Hypertension Heart disease History of stroke Legacy FamHx Problem: Diagnosed with Stroke 64 yrs Myocardial infarction Stroke TIA (transient ischemic attack) Diabetes Social History Marital Status: Household Members: spouse Smoking Status: Never smoker Substance Use Type: None Current Occupation: [employer] Medications and Allergies Allergies prednisolone Allergy (Unknown, Verified 10/21/23 11:20) hives, SOB valacyclovir (Valtrex) Allergy (Unknown, Verified 10/21/23 11:20) hives Home Medications furosemide 40 mg tablet (Lasix) 40 mg PO BID #180 tabs 01/26/24 [Rx Confirmed 04/06/24] cefuroxime axetil 250 mg tablet 250 mg PO BID 04/06/24 [History Confirmed 04/06/24] ergocalciferol (vitamin D2) 1,250 mcg (50,000 unit) capsule 1,250 mcg PO QWEEK #14 caps 04/06/24 [Rx Confirmed 04/06/24] Exam Physical Exam Vital Signs: Temp Pulse Resp BP Pulse Ox O2 Del Method 98.9 F 74 16 133/78 100 Room Air 04/06/24 19:30 04/06/24 21:09 04/06/24 21:09 04/06/24 21:09 04/06/24 21:09 04/06/24 21:09 Narrative: CONST- Appears well -developed and well nourished. HEAD - Normocephalic and atraumatic EENT-Sclera nonicteric, conjunctive are non-erythemic, moist oral mucosa, pharynx clear NECK-Supple, no cervical lymphadenopathy CARDIAC-normal rate, regular rhythm, S1 & S2. PULM-diminished without wheeze or rhonchi, RA, no accessory muscle use or cough noted ABD - Soft. Bowel sounds are normal. No distention. Flank pain, tenderness EXTREM-no edema BLE calves, nontender SKIN- W/D good turgor MS- MAEX4 spontaneously with equal with equal strength NEURO- A&Ox3 speech clear and tongue midline, equal facial symmetry, no focal motor deficits PSYCH-Mood, affect, and behavior appropriate Results - Hospitalist H&P Lab Results Labs: Laboratory Last Values Corrected WBC 3.4 X10E3/uL (3.8-11.6) L 04/06/24 15:50 Uncorrected WBC Count 3.4 x10E3/uL (3.8-11.6) L 04/06/24 15:50 RBC 4.27 x10E6/uL (3.60-5.00) 04/06/24 15:50 Hgb 11.4 g/dL (11.8-15.4) L 04/06/24 15:50 Hct 34.8 % (34.0-46.4) 04/06/24 15:50 MCV 81.4 fl (80-100) 04/06/24 15:50 MCH 26.8 pg (24.7-34.3) 04/06/24 15:50 MCHC 32.9 g/dL (32.0-35.0) 04/06/24 15:50 RDW 15.5 % (11.9-15.3) H 04/06/24 15:50 Plt Count 185 x10E3/uL (150-450) 04/06/24 15:50 MPV 7.5 fl (6.3-10.7) 04/06/24 15:50 Neut % (Auto) 78.2 % (.) 04/06/24 15:50 Lymph % (Auto) 9.9 % (.) 04/06/24 15:50 Cambria % (Auto) 10.2 % (.) 04/06/24 15:50 Eos % (Auto) 1.0 % (.) 04/06/24 15:50 Baso % (Auto) 0.7 % (.) 04/06/24 15:50 Nucleat RBC Rel Count 0.1 /100 WBC (0-0.5) 04/06/24 15:50 Neut # (Auto) 2.6 x10E3/uL (1.8-7.7) 04/06/24 15:50 Lymph # (Auto) 0.3 x10E3/uL (1.00-4.8) L 04/06/24 15:50 Cambria # (Auto) 0.3 x10E3/uL (0.0-0.8) 04/06/24 15:50 Eos # (Auto) 0.0 x10E3/uL (0.0-0.45) 04/06/24 15:50 Baso # (Auto) 0.0 x10E3/uL (0.0-0.2) 04/06/24 15:50 Monocyte Dist Width 26.41 % (0.00-20.00) H 04/06/24 15:50 PHA Creatinine Clear 30.77 04/06/24 15:50 Sodium 138 mmol/L (136-145) 04/06/24 15:50 Potassium 3.5 mmol/L (3.5-5.1) 04/06/24 15:50 Chloride 107 mmol/L (98-107) 04/06/24 15:50 Carbon Dioxide 22.4 mmol/L (21.0-31.0) 04/06/24 15:50 Anion Gap 12.1 mEq/L (6.0-15.0) 04/06/24 15:50 BUN 24 mg/dL (7-25) 04/06/24 15:50 Creatinine 1.81 mg/dL (0.60-1.20) H 04/06/24 15:50 Est GFR (CKD-EPI) 31.843 mL/Min 04/06/24 15:50 Glucose 98 mg/dL (70-100) 04/06/24 15:50 Lactic Acid 1.3 mmol/L (0.5-2.2) 04/06/24 20:03 Calcium 8.8 mg/dL (8.6-10.3) 04/06/24 15:50 Total Bilirubin 0.4 mg/dl (0.3-1.0) 04/06/24 15:50 Direct Bilirubin 0.00 mg/dL (0.03-0.18) L 04/06/24 15:50 Indirect Bilirubin 0.4 mg/dL 04/06/24 15:50 AST 41 U/L (13-39) H 04/06/24 15:50 ALT 20 U/L (7-52) 04/06/24 15:50 Alkaline Phosphatase 132 U/L (34-104) H 04/06/24 15:50 Total Protein 6.7 gm/dL (6.4-8.9) 04/06/24 15:50 Albumin 3.3 gm/dL (3.5-5.7) L 04/06/24 15:50 Globulin 3.4 gm/dL 04/06/24 15:50 Albumin/Globulin Ratio 1.0 04/06/24 15:50 Lipase 30.0 U/L (11.0-82.0) 04/06/24 15:50 Urine Color Light-yellow (Yellow) 04/06/24 16:13 Urine Appearance Clear (Clear) 04/06/24 16:13 Urine pH 6.0 (5.0-9.0) 04/06/24 16:13 Ur Specific Rangely 1.015 (1.001-1.030) 04/06/24 16:13 Urine Protein 50 mg/dL (Negative) H 04/06/24 16:13 Urine Glucose (UA) Normal mg/dL (Normal) 04/06/24 16:13 Urine Ketones Negative (Negative) 04/06/24 16:13 Urine Occult Blood 1+ (Negative) H 04/06/24 16:13 Urine Nitrite Negative (Negative) 04/06/24 16:13 Urine Bilirubin Negative (Negative) 04/06/24 16:13 Urine Urobilinogen Normal mg/dL (Normal) 04/06/24 16:13 Ur Leukocyte Esterase 3+ (Negative) H 04/06/24 16:13 Urine RBC 3-4 /HPF (0-4) 04/06/24 16:13 Urine WBC 20-49 /HPF (0-4) H 04/06/24 16:13 Ur Squamous Epith Cells 1-2 /HPF (0-2) 04/06/24 16:13 Urine Bacteria Rare /HPF (None Seen) 04/06/24 16:13 Hyaline Casts 0-8 /LPF (0-8) 04/06/24 16:13 Urine Mucus Rare /LPF 04/06/24 16:13 Assessment & Plan Assessment/Plan (1) UTI (urinary tract infection): (2) Pyelonephritis: (3) CKD (chronic kidney disease) stage 4, GFR 15-29 ml/min: Plan UTI?failed outpatient treatment Suspected Pyelonephritis ? Continue ceftriaxone?pharmacy to dose ? Follow blood cultures, urine culture Chronic conditions CKD stage IV HTN T2DM?currently off all medications due to weight loss DVT PPx?SCDs Diet order?regular CODE STATUS?full code Attending Physician Attestation: I personally reviewed the history, performed the samayoa elements of the exam, formulated the plan of care and confirmed the written note. I agree with the findings and plan as documented in this note and have edited it if needed to reflect my findings and plan. Barbara Zamora MD IP vs OBS Justification Based on differential dx, clinical care plan, and risk of adverse events, if untreated, in my clinical judgement this patient requires an acute care setting as: OBSERVATION because of an expectation of an under 2 midnight stay. Estimated length of stay (# of days): 2 Documented By: Cecille Morel APRN 04/06/242204 Signed By: 04/06/24233204/06/242336 [facility]11-14-2024 Radiology Diagnostic study note [facility] [place] [address] [place] [address] CT Scan Report Signed Patient: Elizabeth Irvin MR#: [id number] : 1965 Acct:[id number] Age/Sex: 58 / F ADM Date: 4 Loc: ER Room: Type: PRE ER Attending Dr: Copies to: Ivonne Gutierrez APRN TEMP, PROVIDER~ Ordering Provider: Ivnone Gutierrez APRN Date of Service: 04/06/24 CT/CT abdomen pelvis wo con: flank pain CT Abdomen and Pelvis withoutcontrast TECHNIQUE: Axial imaging with 2-D reconstruction. . The CT exam was performed using one or more thefollowing dose reduction techniques: Automated exposure control, adjustment of the MA and/or Kv according to patient size, or use of theiterative reconstruction technique. COMPARISON: None History: UTI symptoms. LIMITATIONS: None LOWER THORAX Unremarkable LIVER: Unremarkable GALLBLADDER: No gallbladder abnormality identified. BILE DUCTS: No dilatation SPLEEN: Unremarkable PANCREAS: Unremarkable ADRENAL GLANDS: Unremarkable KIDNEYS:Marked atrophy of the LEFT kidney. Proximal 5 mm LEFT ureteral stone. No hydronephrosis. Small RIGHT renal cyst. No RIGHT hydronephrosis or obstructing stone. AORTA: No abdominal aortic aneurysm identified. RETROPERITONEUM: No significant retroperitoneal abnormalities identified. MESENTERY:Unremarkable SMALL BOWEL: The small bowel loops are nondistended. Gastric bypass changes. APPENDIX: The appendix is normal. COLON: Unremarkable URINARY BLADDER: Urinary bladder wall thickening. Underdistention versus cystitis. REPRODUCTIVE SYSTEM: Reproductive structures are unremarkable. PNEUMOPERITONEUM: None PERITONEAL FLUID:None BONY STRUCTURES: Degenerative change ABDOMINAL WALL: Anasarca CT/CT abdomen pelvis wo con IMPRESSION: Urinary bladder wall thickening. Underdistention versus cystitis. LEFT renal atrophy. Proximal 5 mm LEFT renal stone. No hydronephrosis. There are no RIGHT hydronephrosis or obstructing stone. Impression dictated by: Michael Cheung M.D.04/06/2024 4:53 PM Dictation Location: [place] [address] Transcribed By: [facility] 04/06/241652 Dictated By: Michael Cheung DO 04/06/241645 Signed By: 04/06/24 165 [facility]11-14-2024 Evaluation note* Diagnosis Onset Date Resolution Status Admit Date Anemia of renal disease acuteNovember 2023 2:17pmBen hy kid w cr kid I-IVacuteNovember 2023 2:17pmCKD (chronic kidney disease) stage 4, GFR 15-29 ml/minacuteNovember 2023 2:17pmNephrolithiasisacuteNovember 2023 2:17pmSecondary hyperparathyroidismacuteNovember 2023 2:17pmType 2 diabetes mellitus without complication, without long-term current usacuteNovember 2023 2:17pmUTI (urinary tract infection)acuteApril 06, 2024 2:17pm NephrolithiasisacuteNovember 2023 9:19pmPyelonephritisacuteNovember 2023 9:19pm [facility] Work Phone: 1(905) 925-173111-14-2024 Evaluation note* Diagnosis Onset Date Resolution Status Admit Date Anemia of renal disease acuteApril 06, 2024 2:17pmBen hy kid w cr kid I-IVacuteNovember 2023 2:17pmCKD (chronic kidney disease) stage 4, GFR 15-29 ml/minacuteNovember 2023 2:17pmNephrolithiasisacuteNovember 2023 2:17pmSecondary hyperparathyroidismacuteNov2023 2:17pmType 2 diabetes mellitus without complication, without long-term current usacuteNovember 2023 2:17pmUTI (urinary tract infection)acuteApril 06, 2024 2:17pmCKD (chronic kidney disease) stage 4, GFR 15-29 ml/minacuteApril 07, 2024 11:49am NephrolithiasisacuteApril 07, 2024 11:49amPyelonephritisacuteNovember 2023 11:49amUTI (urinary tract infection)acuteApril 07, 2024 11:49am [facility] Work Phone: 1(528) 423-118009-17-2024 Telephone encounter Note* Telephone Encounter - Hanane Thapa MARY - 02/08/2024 8:03 AM EDT VM left for pt with results. Let her know if she wanted to make a OV for new thy dx to call corina back and let her know. Sending to Corina as FYI. [facility] [id number] Miscellaneous Notes* Telephone Encounter - Hanane MARY Thapa - 02/08/2024 8:03 AM EDT VM left for pt with results. Let her know if she wanted to make a OV for new thy dx to call corina back and let her know. Sending to Corina as FYI. * Telephone Encounter - Justin Marley MD - 02/08/2024 7:33 AM EDT Notify her that she has a mild anemia with a hemoglobin 11.1. Her CKD stage 4 is about the same if not slightly better than May. A1c to goal. We did check all 5 thyroid tests. She is technically euthyroid, but has euthyroid sick syndrome. The standard of care is to identify this and not treat it, however we can treat it and if she would like to come in for a visit to establish a treatment plan we can do that. documented in this encounterUniversity Health [facility] Medical [id number] Telephone encounter Note* Telephone Encounter - Justin Marley MD - 02/08/2024 7:33 AM EDT Notify her that she has a mild anemia with a hemoglobin 11.1. Her CKD stage 4 is about the same if not slightly better than May. A1c to goal. We did check all 5 thyroid tests. She is technically euthyroid, but has euthyroid sick syndrome. The standard of care is to identify this and not treat it, however we can treat it and if she would like to come in for a visit to establish a treatment plan we can do that. [facility] [id number] History of Present illness Narrative* Justin Marley MD - 01/25/2024 2:30 PM EDT Images from the original note were not included. Patient ID: Elizabeth Irvin is a 58 y.o. female who presents for: See Scanned Wellness packet Advance Directive/Living Will: No Health Care Power of Inside Solar Sales Consultant: No Review of Systems Constitutional: Positive for unexpected weight change. Negative for appetite change, chills and fever. Breasts: Negative for breast mass and breast discharge. Respiratory: Negative for cough, shortness of breath and wheezing. Cardiovascular: Positive for leg swelling. Negative for chest pain and palpitations. Gastrointestinal: Positive for constipation. Negative for abdominal pain and diarrhea. Genitourinary: Negative for frequency and urgency. Neurological: Negative for light-headedness and headaches. Psychiatric/Behavioral: Positive for sleep disturbance. Negative for behavioral problems. The patient is nervous/anxious. Objective The patient is pleasant and in no acute distress. The neck is supple and trachea is midline. No masses are appreciated. The heart is regular rate and rhythm without S3, S4. No murmur. The patient has normal respiratory pattern. The breath sounds are symmetrical without evidence of rhonchi or rales. No wheezing. The skin is warm and dry. The lower extremities have trace edema. The patient has good eye contact and speech is clear. Appropriate affect. Visit Vitals BP 124/74 Pulse 72 Ht 5' 3 Wt 146 lb 8 oz SpO2 96% BMI 25.95 kg/m OB Status Hysterectomy Smoking Status Never BSA 1.72 m No visits with results within 6 Month(s) from this visit. Latest known visit with results is: Clinisync Result Encounter on 06/21/2023 Component Date [...] 0.55 - 1.02 mg/dL Final TBH EGFR-AF STATELESS 06/21/2023 40 (L) >=60 Final TBH EGFR-NON AF STATELESS 06/21/2023 33 (L) >=60 Final BUN CREATININE RATIO 06/21/2023 14.9 Final CALCIUM 06/21/2023 8.4 (L) 8.5 - 10.1 mg/dL Final NT PRO B TYPE NATRIURETIC PEPT 06/21/2023 862.0 <=900.0 pg/mL Final Allergies Allergen Reactions Prednisone Hives Tramadol Other Reaction(s): itching Valacyclovir Hcl Other Reaction(s): hives, itching Current Outpatient Medications on File Prior to Visit Medication Sig Dispense Refill furosemide (Lasix) 40 MG tablet Take 1 tablet (40 mg) by mouth Daily (Patient taking differently: Take 40 mg by mouth in the morning and 40 mg before bedtime.) 30 tablet 0 [DISCONTINUED] cyanocobalamin (Vitamin B-12) 1000 MCG tablet Take 1,000 mcg by mouth Daily [DISCONTINUED] IRON CHELATE Take 2 capsules by mouth 1 (one) time each day [DISCONTINUED] losartan (Cozaar) 25 MG tablet Take 1 tablet (25 mg) by mouth in the morning. (Patient not taking: Reported on 06/21/2023) 30 tablet 0 [DISCONTINUED] Probiotic Product (Probiotic Daily) capsule Take 2 capsules by mouth Daily [DISCONTINUED] rOPINIRole (Requip) 0.5 MG tablet One tablet at bedtime for 2 weeks, then increase to 2 tablets at bedtime. 45 tablet 0 No current facility-administered medications on file prior to visit. 1. Encounter for wellness examination in adult She had so many things going on today that I felt compelled and had some time so is able to least get further evaluation ordered, but she will certainly need to revisit for an evaluation and management type visit. I have reviewed the patients PMShx, medications, and reconciled the problem list. Health maintenance and risk was reviewed and discussed. I also reviewed and discussed as appropriate; immunizations, colon cancer screening, breast and cervical cancer screening, recommended and any current lab evaluation. All items were brought up to date unless declined by the patient. - Lipid panel; Future - Lipid panel 2. Advance directive discussed with patient Patient voluntarily agreed to discuss advance care planning at today's wellness visit. We discussed that an advance directive is a legal document that only goes into effect if the patient is incapacitated and unable to speak for themselves. This would help us to decide what care the patient would want. We discussed emergency treatments to keep the patient alive such as CPR, ventilator use and concept of comfort. We discussed how patients could make their wishes known through a living will, durable power of crew lead for healthcare, or other advanced directives. We discussed telling samayoa people about their advance and a copy will be kept in the EHR. I discussedthat they should also make me an emergency contact in their cell phone, and/or notify their POA that I have a copy of the advanced directives. 3. Encounter for screening for malignant neoplasm of colon After discussion with all of her considerable risk factors we have mutually agreed to proceed with Cologuard instead of directly to colonoscopy. The patient understands if she has positive Cologuard she will have to undergo colonoscopy. 4. Screening mammogram, encounter for - Bilateral screening mammogram; Future - Bilateral screening mammogram 5. Screening for osteoporosis - DEXA bone density; Future 6. Screening for lipid disorders - Lipid panel; Future - Lipid panel 7. Screening for diabetes mellitus (DM) The patient was noted to be diabetic before her weight loss surgery. Since then she has been diet controlled. - Hemoglobin A1c; Future - Hemoglobin A1c 8. Weight gain This diagnosis starts the portion of her additional office visit. She is complaining of weight gain she has had significant weight gain over the last 5 6 months. Sheis not changing her diet or activity levels. She is not formally exercising. She is fatigued. - Hemoglobin A1c; Future - T3; Future - T3, reverse; Future - T3, free; Future - T4, free; Future - TSH; Future - Hemoglobin A1c - T3 - T3, reverse - T3, free - T4, free - TSH 9. Stage 4 chronic kidney disease (CMS/HCC) We had the patient is stage IIIB in the medical record, but upon review of some lab work from her visit with the jailkeeper, she is now in stage IV. She also specifically notes that there has been no further lab work ordered until she is seen next year. I think with how bad she is feeling in the significance of this medical illness we will re-evaluate. - Hemoglobin A1c; Future - Comprehensive metabolic panel; Future - Hemoglobin A1c - Comprehensive metabolic panel 10. Secondary hyperparathyroidism of renal origin ([facility]/HCC) As noted above - Comprehensive metabolic panel; Future - Comprehensive metabolic panel 11. Other iron deficiency anemia She tells me that she was supposed to get IV iron but it was thousands of dollars and she could notafford it. She had been taking some lvag-wdz-mgxuquc iron but has not been on that for a few weeks.We will go ahead and recheck her blood count and iron levels. Also the Cologuard will be important as iron deficiency anemia would not necessarily be related to anemia of chronic kidney disease. She may have 2 separate issues. 12. Chronic fatigue Chronic problem, unstable, complex in nature with moderate decision making. I discussed with the patient or their bilingual inside sales representative, their fatigue issues. We discussed how this is either not improved or not inadequately addressed. We discussed how this is almost always a multifactorial problem. We discussed that the patient willalmost certainly need to continue to make lifestyle changes including diet, sleep, exercise, and stress management as appropriate. We further discussed how we will continue to search for refinements in their current treatments or evaluation for further disease processes and then support or treat them as appropriate. We discussed how we can frequently improve the symptoms, but may not be able to completely cure or resolve the issue. The patient was given a chance to ask questions and all questions were answered. - Comprehensive metabolic panel; Future - CBC and differential; Future - Iron level; Future - T3; Future - T3, reverse; Future - T3, free; Future - T4, free; Future - TSH; Future - Comprehensive metabolic panel - CBC and differential - Iron level - T3 - T3, reverse - T3, free - T4, free - TSH 13. Menopausal disorder She has been menopausal for several years now without any estrogen replacement or other true prevention for osteoporosis. We will need to check a DEXA scan. I did specifically note to her that the secondary hyperparathyroidism we will also place her at risk. - DEXA bone density; Future documented in this encounterUniversity Health [facility] Medical [id number] History of Present illness Narrative* Justin Marley MD - 06/21/2023 11:00 AM EST Patient ID: Elizabeth Irvin is a 57 [...] 0.55 - 1.02 mg/dL Final TBH EGFR-AF STATELESS 06/21/2023 40 (L) >=60 Final TBH EGFR-NON AF STATELESS 06/21/2023 33 (L) >=60 Final BUN CREATININE [...] 0.55 - 1.02 mg/dL Final TBH EGFR-AF STATELESS 06/16/2023 39 (L) >=60 Final TBH EGFR-NON AF STATELESS 06/16/2023 32 (L) >=60 Final BUN CREATININE [...] (HH) <=900.0 pg/mL Final RESULTS CALLED TO [facility] WBC 06/16/2023 6.4 4.0 - 11.0 10 3/uL Final TB RBC 06/16/2023 3.08 (L) 4.20 - 5.40 10 6/uL Final TB HGB 06/16/2023 7.6 (L) 12.0 - 16.0 g/dL Final TB HCT 06/16/2023 26.7 (L) 36.0 - 48.0 % Final TB MCV 06/16/2023 86.7 81.0 - 99.0 fL Final TB MCH 06/16/2023 24.7 (L) 26.7 - 34.0 pg Final TB MCHC 06/16/2023 28.5 (L) 29.9 - 35.2 g/dL Final TB RDW 06/16/2023 17.0 (H) 11.0 - 15.0 % Final TBH PLT 06/16/2023 406 150 - 450 10 3/uL Final TB MPV 06/16/2023 9.0 (L) 9.5 - 13.5 fL Final NEUTROPHILS PERCENT AUTO 06/16/2023 59.2 43.0 - 75.0 % Final LYMPHOCYTES PERCENT AUTO 06/16/2023 25.1 20.5 - 60.0 % Final MONOCYTES PERCENT AUTO 06/16/2023 8.0 1.7 - 12.0 % Final TB EO % 06/16/2023 6.4 0.9 - 7.0 [...] this office visit and go out to [facility] to get those labs done. Bilateral edema [...] try chelated iron orally. documented in this encounterUniversity Health [facility] Medical [id number] NoteHNO ID: [id number] Author: Bony Elizabeth RT(R) Service: Radiology Author [...] BY: RT Rafaela(R) April 26, 2023 3:53 [facility]12-04-2023 NoteHNO ID: [id number] Author: Hanane Lau RT(R) Service: Radiology Author [...] Not applicable SIGNED BY: Hanane Lau RDMS RVDelfino April 26, 2023 2:[address] [facility] History of Present illness Narrative* Bony Elizabeth RT(R) - 04/26/2023 3:30 PM EST Radiology Service Progress Note PATIENT NAME: Elizabeth Irvin DATE OF SERVICE: April 26, 2023 TIME: 3:53 PM PATIENT IDENTITY VERIFICATION COMPLETED USING TWO (2) IDENTIFIERS: Name and Date of confirmedby patient verbally. FALL SCREENING: Has the patient [...] 26, 2023 3:53 PM documented in this encounterMiami [facility]12-04-2023 History of Present illness Narrative* Hanane Lau RT(R) - 04/26/2023 2:30 PM EST Radiology Service Progress Note PATIENT NAME: Elizabeth Irvin DATE OF SERVICE: April 26, 2023 TIME: 2:41 PM PATIENT IDENTITY VERIFICATION COMPLETED USING TWO (2) IDENTIFIERS: Name and Date of confirmedby patient verbally. FALL SCREENING: Has the patient had 2 falls in the last year or 1 fall with injury or currently using an Ambulatory Assistive Device (Walker, Cane, Wheelchair, Crutches, etc.)? No PATIENT GENDER DATA: Female. status: status: N/A PATIENT RELEVANT IMPLANT DATA REVIEWED: Not Applicable RADIOLOGY DEPARTMENT: Ultrasound PERIPHERAL IV DATA: Not applicable SIGNED BY: Hanane Lau RDMS Delfino April 26, 2023 2:41 PM documented in this encounterMiami Valley Hospital05-31-2023 NoteHNO ID: [id number] Author: Dana Renteria RN Service: ? Author [...] EMERGENT procedures): No specimen collected. Dana Renteria RNKettering [facility]05-31-2023 NoteHNO ID: [id number] Author: Samy Odonnell MD Service: ? Author Type: Physician Type: Progress Notes Filed: 10/21/2022 12:53 PM Note Text: CYSTOSCOPY PROCEDURE Jacobo WRIGHT NOTE Pertinent History and Physical Exam [...] Samy Odonnell MD Director, Surgical Stone Disease [facility] Pager [phone] 10/21/2022[facility]05-31-2023 History of Present illness Narrative* Dana Renteria RN - 10/21/2022 12:51 PM EDT UNIVERSAL PROTOCOL / SAFETY CHECKLIST Procedure to [...] procedures): No specimen collected. Dana Renteria RN * Samy Odonnell MD - 10/21/2022 11:52 AM EDT CYSTOSCOPY PROCEDURE [facility] NOTE Pertinent History and Physical Exam reviewed and is unchanged. Primary Diagnosis: Nephrolithiasis Procedure: Stent Extraction Informed Consent Discussed: Yes. Risks, benefits, alternatives and personnel discussed with patientwho consents to proceed. Audible Time-Out: Yes Details [...] Samy Odonnell MD Director, Surgical Stone Disease [facility] Pager [phone] 10/21/2022 documented in this encounterMiami Valley Hospital05-31-2023 Nurse Note* Dana Renteria RN - 10/21/2022 11:58 AM EDT Actual procedure/procedure scheduled: Yes Performing provider/scheduled provider: Yes Patient was roomed in: Q9- 05 Television Inspector offered:Patient declines Patient arrived in the room [...] Education Session: None Instruction Provided To: Patient Label Pinker Present: not applicable Discipline: Nursing Learning Topic: SURVIVAL SKILLS: Complication Prevention Symptom Management Patient Evaluation: Verbalizes understanding: Yes Supplemental Material Given: Written Material Instructed By Dana Renteria RN In Department Urology . documented in this encounterMiami Valley Hospital05-22-2023 NoteHNO ID: [id number] Author: ION Hopkins Service: ? Author Type: [...] October 12, 2022 TIME: 8:17 AM CSN: [id number] Health [facility]05-08-2023 NoteHNO ID: [id number] Author: Marley Brown PA-C Service: ? Author Type: Physician Colorectal Surgeon Type: Progress Notes Filed: 09/28/2022 2:56 PM Note Text: [facility] PRE-OP NOTE [...] Signed: Yes. Pre-op HANDP Done by Physician Colorectal Surgeon: Yes. PATIENT INSTRUCTIONS FOR SURGERY 1.) DO [...] prepared for surgery. Marley Gutierrez PA-C Electronically signedKettering Health [facility]ble05-08-2023 NotePatient Outreach (UROLMN) ELIZABETH IRVIN ([id number]) 1965 F Date Time Provider Department 09/28/22 MARLEY CHOE During your visit today, we recorded the following information about you: Allergies As of Date: 09/28/2022 Noted Allergy Reaction PREDNISONE 04/24/2022 4 - Hives VALACYCLOVIR 04/24/2022 4 - Hives Date Reviewed: 09/28/2022 Reviewed by: Marley Brown PA-C - Fully Assessed Visit Diagnosis:Screening for genitourinary condition [Z13.89] Order(s):URINALYSIS, REFLEX MICROSCOPIC [QFP1282] Order #: [id number]. #:[id number] Prescriptions as of 10/01/2022 - cephALEXin (KEFLEX) [...] (None) Encounter Status:Closed by MELANI SALAZAR on 10/01/22[facility] History and physical note* Marley Brown PA-C - 09/28/2022 1:54 PM EDT UROLOGY SURGICAL H&P SERVICE DATE: 09/28/2022 SERVICE [...] + HTN. No history of angina, CHF, AK, cardiac surgery of stents. Respiratory: Negative for [...] problems. Neurologic: No history of TIA's, stroke, SUPERVISOR TITLE tumor, impaired sensorium, hemiplegia or paraplegia Noneurological symptoms or problems. Hematology/Oncology: No history of bleeding or clotting disorder. Pt is not taking anti-coagulationor platelet medications. No history of hematological symptoms [...] (no units) Date Value 09/07/2022 Negative Specific [place], Ur (no units) Date Value 09/07/2022 1.014 [...] 1:54 PM PAGER/CONTACT #: documented in this encounterMiami Valley Hospital05-08-2023 History of Present illness Narrative* Marley Brown PA-C - 09/28/2022 1:38 PM EDT [facility] PRE-OP NOTE [...] Signed: Yes. Pre-op H&P Done by Physician Colorectal Surgeon: Yes. PATIENT INSTRUCTIONS FOR SURGERY 1.) DO NOT HAVE ANYTHING TO EAT OR DRINK AFTER MIDNIGHT THE DAY BEFORE SURGERY except for certain morning medications as instructed by the doctor. Candy, mints, gum, and smoking are NOT permitted. Ifthe surgery is scheduled for the afternoon, you [...] surgery. Marley Gutierrez PA-C documented in this encounterMiami Valley Hospital04-26-2023 NoteHNO ID: [id number] Author: Dede Story RN Service: ? Author [...] Care Visit completed when applicable. Dede Story RNKettering Health [facility]ble04-26-2023 NoteHNO ID: [id number] Author: Samy Odonnell MD Service: ? Author Type: Physician Type: Progress Notes Filed: 09/16/2022 12:30 PM Note Text: CYSTOSCOPY PROCEDURE [facility] NOTE Pertinent History [...] Samy Odonnell MD Director, Surgical Stone [facility] Pager [phone] 09/16/2022[facility]04-26-2023 History of Present illness Narrative* Dede Story RN - 09/16/2022 12:17 PM EDT UNIVERSAL PROTOCOL / SAFETY CHECKLIST Procedure to [...] Visit completed when applicable. Dede Story RN * Samy Odonnell MD - 09/16/2022 12:02 PM EDT CYSTOSCOPY PROCEDURE M.DSarkis'S HOPS NOTE Pertinent History and Physical Exam reviewed and is unchanged. Primary Diagnosis: Nephrolithiasis Procedure: Stent Extraction Informed Consent Discussed: Yes. Risks, benefits, alternatives and personnel discussed with patientwho consents to proceed. Audible Time-Out: Yes Details [...] and set up right mini-PCNL (discussed with patientat length). Comments: well-tolerated Post Procedure Evaluation Condition Post Procedure: satisfactory Post Procedure Medications: Keflex 500 mg tid for 3 days Samy Odonnell MD Director, Surgical Stone Disease [facility] Pager [phone] 09/16/2022 documented in this encounterMiami Valley Hospital04-26-2023 Nurse Note* Dede Story RN - 09/16/2022 11:56 AM EDT Actual procedure/procedure scheduled: Yes Performing provider/scheduled provider: Yes Patient was roomed in: Q9- 09 Television Inspector offered: Patient declines Patient arrived in the [...] Education Session: None Instruction Provided To: Patient Label Pinker Present: not applicable Discipline: Nursing Learning Topic: SURVIVAL SKILLS: Complication Prevention Pain Management Symptom Management Patient Evaluation: Verbalizes understanding: Yes Supplemental Material Given: None Instructed By Dede Story RN In Department Urology . documented in this encounterMiami Valley Hospital04-17-2023 NoteHNO ID: [id number] Author: Fernanda Joseph APRN.INTERNAL MEDICINE VETERINARY TECHNICIAN Service: ? Author Type: Nurse Basting Machine Operator Type: Anesthesia Procedure Notes Filed: 09/07/2022 1:55 PM Note Text: ANESTHESIOLOGY PROCEDURE NOTE Airway General Information Procedure Start Time/Medication Administration: 09/07/2022 1:38 PM Patient location during procedure: OR Timeout Performed Pre-procedure: timeout performed Consent Obtained: Yes Patient identity confirmed: arm band and patient Staffing INTERNAL MEDICINE VETERINARY TECHNICIAN: Fernanda Joseph APRN.INTERNAL MEDICINE VETERINARY TECHNICIAN Indications and Patient Condition Indications for airway management: anesthesia Preoxygenated: yes anesthesia circuit Patient position: sniffing Method: asleep Cricoid Pressure: No Manual In-Line Stabilization: No Difficult Mask: No Final Airway Details Final airway type: endotracheal airway Final Endotracheal Airway: ETT Cuffed: yes Successful intubation technique: video laryngoscopy Devices used: Conte Endotracheal tube insertion site: oral Blade size: #4 ETT size (mm): 7.0 Measured from: lips Measurement (cm): 20 Placement verified by: capnometry Cormack-Lehane Classification: grade I - full view of glottis Number of attempts at approach: 1 Failed airway: no Unrecognized esophageal intubation: no Airway not difficult SIGNATURE: Fernanda Joseph APRN.CRNA PATIENT NAME: Elizabeth Irvin DATE: September 07, 2022 TIME: 1:54 PM CSN: [id number] NotePatient Outreach (UROLMN) ELIZABETH IRVIN ([id number]) 1965 F Date Time Provider Department 09/07/22 MARLEY CHOE During your visit today, we recorded the following information about you: Allergies As of Date: 09/07/2022 Noted Allergy Reaction PREDNISONE 04/24/2022 4 - Hives VALACYCLOVIR 04/24/2022 4 - Hives Date Reviewed: 09/07/2022 Reviewed by: Zelalem Pichardo RN - Fully Assessed Visit Diagnosis:Screening for genitourinary condition [Z13.89] Order(s):URINALYSIS, REFLEX MICROSCOPIC [[id number]] Order #: [id number]. #:[id number] Prescriptions as of 09/10/2022 - tamsulosin (FLOMAX) [...] Of Date: 09/07/2022 (None) Encounter Status:Closed by [place] on 09/10/22[facility] NoteHNO ID: [id number] Author: Marley Brown PA-C Service: ? Author Type: Physician Colorectal Surgeon Type: Progress Notes Filed: 09/07/2022 10:06 AM [...] Urine 08/18/2022 Negative Trace, Negative Final Specific Rangely, Ur 08/18/2022 1.016 1.005 - 1.030 Final [...] low oxalate di (more content not included)... [facility] History of Present illness Narrative* Marley Brown PA-C - 09/07/2022 9:02 AM EDT Chief complaint: Kidney stones Elizabeth Irvin is a 56 year old female who presents today for kidney stone management and preventioncounseling. Presents today for preoprative exam (see H&P), [...] catheter. If a new culture is needed, pleaseconsider re-education of the patient on proper midstream co llection technique or straight catheterization for urine collection. Color 08/18/2022 Light Yellow Yellow Final Clarity 08/18/2022 Cloudy (A) Clear Final Glucose, Urine 08/18/2022 Negative Trace, Negative Final Bilirubin, Urine 08/18/2022 Negative Negative Final Ketones, Urine 08/18/2022 Negative Trace, Negative Final Specific Rangely, Ur 08/18/2022 1.016 1.005 - 1.030 Final [...] your fluid intake to 2.5-3 L/day or 80- 100 fluid oz/day. Not only increase fluids during [...] All fluids count but water is best. [place] intake - Recommend increasing dietary citrate intake. Adding more fruits & vegetables toyour diet; in particular citrus fruits (delio/limes/lemonade/melons/tomatoes). One can add 4 oz oflemon juice diluted in 32 oz of water daily to start. If diet changes are too difficult we can presc ribe a medication, potassium citrate, that can help [...] spinach, nuts, seeds, potatoes. Foods like banana, avocado,soybean, colton, cereals are good for you. RTC after surgery per Dr. Odonnell. I spent a total of 40 minutes on the date of the service which included preparing to see the patient, dukk-lv-fmmo patient care, completing clinical documentation, obtaining and/or reviewing separately obtained history, performing a medically appropriate examination, counseling and educating the pat ient/family/caregiver, ordering medications, tests, or procedures, and communicating results to thepatient/family/caregiver. Marley Gutierrez PA-C documented [facility] History and physical note * Marley Brown PA-C - 09/07/2022 8:59 AM EDT UROLOGY SURGICAL H&P SERVICE DATE: 09/07/2022 SERVICE [...] + HTN. No history of angina, CHF, AK, cardiac surgery of stents. Respiratory: Negative for [...] problems. Neurologic: No history of TIA's, stroke, SUPERVISOR TITLE tumor, impaired sensorium, hemiplegia or paraplegia Noneurological symptoms or problems. Hematology/Oncology: No history of bleeding or clotting disorder. Pt is not taking anti-coagulationor platelet medications. No history of hematological symptoms [...] (no units) Date Value 08/18/2022 Negative Specific Rangely, Ur (no units) Date Value 08/18/2022 1.016 [...] 07, 2022 TIME: 8:59 AM PAGER/CONTACT #: [facility] PRE-OP NOTE [...] Signed: Yes. Pre-op H&P Done by Physician Colorectal Surgeon: Yes. PATIENT INSTRUCTIONS FOR SURGERY 1.) DO [...] surgery. Marley Gutierrez PA-C documented in this encounterMiami [facility]03-29-2023 Miscellaneous Notes* Telephone Encounter - Marisa West RN - 08/19/2022 11:37 AM EDT Called and spoke with patient regarding incoming call message. She states that she is a bit confused regarding the scheduling of her procedure. She thought she was going to be having the PCNL surgerydone but was told she is having the [...] 2022 12:00 PM ----- Message from Gracy Kolb sent at 08/19/2022 10:54 AM EDT ----- Regarding: Dry-heaving Contact: Pt called - completed labs (advised pt urine culture is still in process) pt says dry heaving all the pills, pt wants to know if there is an infection could a shot be giving instead of a pill. Pleaseadvise -thank you. documented in this encounterMi[facility]03-23-2023 Miscellaneous Notes* Telephone Encounter - Marisa West RN - 08/13/2022 9:40 AM EDT Called patient to discuss questions she has [...] 13, 2022 9:55 AM documented in this encounterMiami [facility]03-09-2023 NoteHNO ID: [id number] Author: Donovan Guzman [employer] Service: Nuclear Medicine Author Type: Handwriting Expert Type: Progress Notes Filed: 07/30/2022 2:28 PM [...] 1345 PATIENT DISCHARGED TO: Ambulatory patient, left NH department area. A Diagnostic radioactive procedure has taken place, with no further precautions necessary other than routine body substance precautions. More information regarding radiation safety can be found using this link: [email or web address]%20Medicine%20Procedures.[email or web address] SIGNATURE: Donovan Guzman [employer] PATIENT NAME: Elizabeth Irvin DATE: July 30, 2022 TIME: 2:26 PM [facility]CONTA[phone] History of Present illness Narrative* Rick Ledbetter - 07/30/2022 1:30 PM EST RADIOLOGY SERVICE PROGRESS NOTE SERVICE DATE: 07/30/2022 [...] injury, the eGFRmay not accurately reflect actual GFR. P.O.C.T. RESULTS: N/A July 30, [address] PERFORMED: No IV SITE: Ambulatory: A peripheral IV was started in the Left antecubital site with a Angio cath: 22gauge. POST EXAM PIV STATUS: Discontinued PROCEDURE TYPE: NM INJECT: RENAL. 10.5 mCi Tc99m MAG-3. Lasix 40 milligrams intravenous at 1410. ADMINISTRATION TIME: 1345 PATIENT DISCHARGED TO: Ambulatory patient, left NH department area. A Diagnostic radioactive procedure has taken place, with no further precautions necessary other than routine body substance precautions. More information regarding radiation safety can be found usingthis link: [email or web address]-% 20Diagnostic%20Nuclear%20Medicine%20Procedures.pdf SIGNATURE: Donovan Guzman [employer] PATIENT NAME: Elizabeth Irvin DATE: July 30, 2022 TIME: 2:26 PM PAGER/CONTACT #: documented in this encounterMiami [facility]03-09-2023 Nurse Note* Fernanda Koenig RN - 07/30/2022 1:30 PM EST Patient here for a renal scan with lasix. Patient identified and allergies reviewed. Per order under scanned documents lasix 40 mg IV given at 1411. documented in this encounterMiami [facility]02-21-2023 NotePatient Outreach (UROLMN) ELIZABETH IRVIN ([id number]) 1965 F Date Time Provider Department 07/14/22 SAMY ODONNELL During your visit today, we recorded the following information about you: Allergies As of Date: 07/14/2022 Noted Allergy Reaction PREDNISOLONE 07/14/2022 4 - Hives PREDNISONE 04/24/2022 4 - Hives VALACYCLOVIR 04/24/2022 4 - Hives Date Reviewed: 07/14/2022 Reviewed by: ANNALISE Reyes - Fully Assessed Visit Diagnosis:Screening for genitourinary condition [Z13.89] Order(s):URINALYSIS, REFLEX MICROSCOPIC [[id number]] Order #: [id number]. #:[id number] Prescriptions as of 07/17/2022 - nitrofurantoin monohydrate [...] Of Date: 07/14/2022 (None) Encounter Status:Closed by [employer] on 07/17/22[facility] NoteHNO ID: [id number] Author: Samy Odonnell MD Service: ? Author [...] Stones Maternal Aunt Maternal Mother Significant comorbidities include:MedicalDiabetes,Hypertension,Gastric Bypass The patient has been experiencing pain [...] based on size, location, hounsfield units and yzdq-gx-vawej distance: 0% 3. Ureteroscopy - risks of [...] with more than 50% of the total dbqr-vp-rlpx time of the visit devoted to patient counseling/coordination of care. Samy Odonnell MD Director, Surgical Stone Disease [facility], [facility] Pager [phone] 07/14/2022[facility]02-21-2023 History of Present illness Narrative* Samy Odonnell MD - 07/14/2022 10:31 AM EST Images from the original note [...] shared Medical record or letter to requesting physicianvia [place] mail. She is a pleasant 56 [...] Stones Maternal Aunt Maternal Mother Significant comorbidities include:MedicalDiabetes,Hypertension,Gastric Bypass The patient has been experiencing pain [...] in 1000 severe bleed), residual fragments, need fora secondary procedure. Success based on size, location, hounsfield units and ihru-yd-syodk distance: 0% 3. Ureteroscopy - risks of [...] and Left renal atrophy were also pertinent tothis visit. Plan: Based on this discussion, she [...] with more than 50% of the total oiug-xn-wzvs time of the visit devoted to patient counseling/coordination of care. Samy Odonnell MD Director, Surgical Stone Disease [facility], [facility] Pager [phone] 07/14/2022 documented in this encounterMiami [facility] Hospital02-14-2023 Hospital Discharge instructions Patient Education 07/07/2022 08:44:18 [...] about 300 mg of calcium at each meal.Foods that contain 200 500 mg of calcium [...] Talk to your dietitian about how much calciumis recommended for you. Shopping Buy plenty of [...] the table and allow each person to addhis or her own salt to taste. Use [...] fish, if told by your dietitian. To dothis: ?Limit the number of times you have [...] include: ?Spinach. ?Rhubarb. ?Beets. ?Potato chips and citizen of [place] fries. ?Nuts. If you regularly take a diuretic medicine, make sure to eat at least 1 2 fruits or vegetables high in potassium each day. These include: ?Avocado. ?Banana. ?[place], prune, carrot, or tomato juice. ?Baked potato. [...] fish. Salted or cured meats. Deli meats. Hotdogs. Sausages. Dairy Cheese. Beverages Regular soft drinks. Regular vegetable juice. Seasonings and other foods Seasoning blends with salt. Salad dressings. Canned soups. Soy sauce. Ketchup. Barbecue sauce. Canned pasta sauce. Casseroles. Pizza. Lasagna. Frozen meals. Potato chips. Albanian fries. Summary You can reduce your risk of kidney stones by making changes to your diet. The most important thing you can do is drink enough fluid. You should drink enough fluid to keep your urine clear or pale yellow. Ask your health care provider or dietitian how much protein from animal sources you should eat eachday, and also how much salt and calcium you should have each day. This information is not intended to replace advice given to you by your health care provider. Make sure you discuss any questions you have with your health care provider. Document Released: 09/04/2011 Document Revised: 08/30/2019 Document Reviewed: 04/20/2017 [employer] Patient Education 2020 [employer]. Follow Up Care 06/29/2022 15:30:12 With:KULWANT REED, Chalo Frazier, URL Address: [address] [place] [address]- When: Unknown [facility] [place] [phone] Evaluation + Plan noteExtracted from:Title: Post-anesthesia - GeneralAuthor:Garfield Beauchamp Jr., DO GDate:06/18/22 Plan Transfer/ Discharge: Condition stable. Extracted from:Title:Pre-anesthesia - AdultAuthor:Garfield Beauchamp Jr., DO GDate: 06/18/22 Plan [place] [employer] Anesthesiologists (ASA) physical status classification: Class III. Anesthetic Preoperative Plan Anesthesia: General. . Anesthetic plan, risks, benefits, and alternatives discussed with the patient and/or family. Patient verbalized understanding. Adverse reactions, complications, and alternatives discujssed. Consentsigned and on chart..[facility]01-26-2023 Hospital Discharge instructions Patient Education 06/18/2022 [...] Follow these instructions at home: Medicines Take cefm-uku-tjatarw and prescription medicines only as told by [...] 05/29/2008 Document Revised: 08/21/2019 Document Reviewed: 03/31/2017 [employer] Patient Education 2019 Obvious Follow Up Care 03/31/2022 13:46:23 With:Chalo BLUM Address: [address] [place], [place] [id number] [facility] (1) When:1 to 2 weeks Comments:Call for followup appointment with an abdominal X-ray prior to your visit (my office will need to send an order for the X-ray) [facility]11-08-2022 Hospital Discharge instructions Patient Education 03/31/2022 13:07:20 Kidney Stones, Ctdv-qn-Btie Kidney Stones Kidney stones are rock-like masses [...] Follow these instructions at home: Medicines Take mixa-gwb-rnqcnsu and prescription medicines only as told by [...] 10/26/2008 Document Revised: 09/26/2019 Document Reviewed: 09/26/2019 [employer] Patient Education 2020 [employer]. Follow Up Care 03/26/2022 10:20:11 With:KULWANT REED, Chalo Frazier, URL Address: [facility] [place] [id number]- When: Unknown [facility] [place] [id number] Evaluation note* Encounter Date Diagnosis Assessment Notes Treatment Notes Treatment Clinical Notes Feb, Stage 3a chronic kidney disease (ICD-10 - N18.31) Ordered recheck of Kidney function. Keep following up with Dr. Blum to have other kidney stones removed. We will see if function continues to improve. Feb,Type 2 diabetes mellitus without complication, without long-term current use of insulin (ICD-10 - E11.9)Continue current dose. Sent to [facility] Feb,LS (restless legs syndrome) (ICD-10 - G25.81)Continue medication as discussed. Sent order to [facility] Feb,GAD (generalized anxiety disorder) (ICD-10 - F41.1)Continue medication as discussed. Sent order to [facility] [employer] Other 10-27-2022 NoteEXAMINATION: XR RETROGRADE PYELOGRAM HISTORY: [...] Electronically authenticated by: NATACHA WILD Date: 2022-03-19 16:44[facility]10-27-20[facility] NoteOPERATIVE NOTE OPERATION DATE: 03/19/2022 PREOPERATIVE [...] placed per urethra and a well lubricated 22-Albanian cystourethroscope with 30 degree lens was then [...] backloaded over the wire and a 4.8 Albanian 22-30 cm [employer] double J stent was passed into the left kidney. Minimal difficulty getting the stent past the stone over the wire. The wire was removed and there was good curl within the kidney and (more content not included)...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 It is important for us to make sure we protect your kidneys since vision,kidneys and blood circulation are all effected by high blood pressure. It may take us a couple of visits to get your blood pressure in a healthy range and once we do we can space them out a lot more.In addition to medication prescribed we will also talk about healthy changes you can try. Also we will check other labs yearly to screen for other issues. Please remember we are a team and your opinion is very important in all of your healthcare decisions Jan,LS (restless legs syndrome) (ICD-10 - G25.81) [employer] Other Evaluation + Plan note Future Appointments Appointment Date:04/17/2022 07:30:00 AM Scheduled Provider: Location:[facility] Appointment Type:Surgical PAT FT Appointment Date:04/30/2022 10:00:00 AM Scheduled Provider: Location:[facility] Appointment Type:Surgery FT [facility] [place] Evaluation + Plan note Future Appointments Appointment Date:04/30/2022 12:45:00 PM Scheduled Provider: Location:[facility] App[facility] Future Appointments Appointment Date:06/18/2022 11:30:00 AM Scheduled Provider: Location:[facility] Appointment Type:Surgery FT Diagnostic Tests Pending * Urine Culture 06/11/22 [facility] evaluation noteNo InformationNort [employer] Other evaluation noteNo assessment information [facility] Work Phone: evaluation note* Diagnosis Abnormal urinalysis- Primary Other nonspecific finding on examination of urine documented [facility] this encounter [facility]* Diagnosis Nephrolithiasis- Primary Calculus of kidney Hydronephrosis with urinary obstruction due to ureteral calculus Left flank pain Abdominal pain, unspecified site Left renal atrophy Renal sclerosis, unspecified documented [facility] this encounter [facility]* Diagnosis Hydronephrosis with urinary obstruction due to ureteral calculus [facility]* Diagnosis Nephrolithiasis- Primary Calculus of kidney [facility]* Diagnosis Nephrolithiasis- Primary Calculus of kidney [facility] this [facility]* Diagnosis Preop examination- Primary Preoperative examination, unspecified Nephrolithiasis Calculus of kidney Hypernatriuria Hyperosmolality and/or hypernatremia Hyperoxaluria Other specified disorders of carbohydrate transport and metabolism Hypocitraturia Other nonspecific finding on examination of urine Aciduria (HCC) Other nonspecific finding on examination of urine Urine volume deficient Oliguria and anuria Elevated parathyroid hormone Unspecified endocrine disorder [facility]* Diagnosis Screening for genitourinary condition Screening for other and unspecified genitourinary condition documented [facility] this encounter [facility]* Diagnosis Nephrolithiasis- Primary Calculus of kidney documented in this encounter [facility]* Diagnosis Nephrolithiasis- Primary Calculus of kidney Abnormal urinalysis Other nonspecific finding on examination of urine Nephrolithiasis Calculus of kidney [facility]* Diagnosis Preop examination- Primary Preoperative examination, unspecified Nephrolithiasis Calculus of kidney Nephrolithiasis Calculus of kidney documented [facility]* Diagnosis Screening for genitourinary condition Screening for other and unspecified genitourinary condition Nephrolithiasis Calculus of kidney [facility]* Diagnosis Nephrolithiasis- Primary Calculus of kidney Hyperoxaluria Other specified disorders of carbohydrate transport and metabolism Hypernatriuria Hyperosmolality and/or hypernatremia Hypocitraturia Other nonspecific finding on examination of urine Low urine output Oliguria and anuria documented in [facility]* Diagnosis Nephrolithiasis Calculus of kidney [facility]* Diagnosis Nephrolithiasis Calculus of kidney [facility]* Diagnosis 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 Stage 3b chronic kidney disease (HCC) (CMS/HCC) Bilateral edema of lower extremity Abdominal bloating Flatulence, eructation, and gas pain Weight gain, abnormal Other iron deficiency anemia Malabsorption of iron (CMS/HCC) Other specified intestinal malabsorption [facility]* Diagnosis Onset Date Resolution Status Anemia of renal disease acuteBen hy kid w cr kid I-IVacuteCKD (chronic kidney disease) stage 4, GFR 15- 29 ml/minacuteNephrolithiasisacuteSecondary hyperparathyroidismacute [id number][facility] Work Phone: Evaluation note* Diagnosis Onset Date Resolution Status Anemia of renal disease acuteBen hy kid w cr kid I-IVacuteCKD (chronic kidney disease) stage 4, GFR 15- 29 ml/minacuteNephrolithiasisacuteSecondary hyperparathyroidismacute [id number] of renal diseaseacuteBen hy kid w cr kid I-IVacute CKD (chronic kidney disease) stage 4, GFR 15-29 ml/minacuteNephrolithiasisacute Secondary xsezwrbquunnufccghuucufgCLY-DVRV-[id number] [facility] Work Phone: Evaluation note* Diagnosis Onset Date Resolution Status Admit Date Anemia of renal disease acuteNovember 2023 2:17pmBen hy kid w cr kid I-IVacuteNovember 2023 2:17pmNephrolithiasisacuteNov2023 2:17pmSecondary hyperparathyroidismacuteNovember 2023 2:17pmType 2 diabetes mellitus without complication, without long-term current usacuteNovember 2023 2:17pm [facility] Work Phone: Evaluation note* Diagnosis Kidney stone- Primary Calculus of kidney Acute cystitis with hematuria Pyelonephritis Unspecified pyelonephritis Encounter for examination following treatment at hospital Stage 4 chronic kidney disease (CMS/HCC) [facility] Diagnosis Encounter for wellness examination in adult- Primary Advance directive discussed with patient Encounter for screening for malignant neoplasm of colon Screening mammogram, encounter for Screening for osteoporosis Special screening for osteoporosis Screening for lipid disorders Screening for diabetes mellitus (DM) Screening for diabetes mellitus Weight gain Other symptoms concerning nutrition, metabolism, and development Stage 4 chronic kidney disease (CMS/HCC) Secondary hyperparathyroidism of renal origin (CMS/HCC) Secondary hyperparathyroidism (of renal origin) Other iron deficiency anemia Chronic fatigue Other malaise and fatigue Menopausal disorder Unspecified menopausal and postmenopausal disorder [facility]* Diagnosis Pyelonephritis- Primary Unspecified pyelonephritis [facility]* Diagnosis Iron deficiency anemia secondary to inadequate dietary iron intake- Primary Burning with urination Dysuria Suprapubic pressure History of Prince-en-Y gastric bypass documented in this encounter [facility] HealthcareHistory and physical note Author Cecille Morel [facility] LimaNote Date/TimeNov2023 11:37pm [place] [address] Hospitalist H&P Signed Patient: Elizabeth Irvin MR#: [id number] : 1965 Acct:[id number] Age/Sex: 58 / F Adm Date: 4 Loc: 3T Room: [address] [place] [address] Type: ADM INOo Attending Dr: Barbara Christy MD Copies to: MD Barbara Bee MD Paula G Morel, HELP DESK ENGINEER~ HPI DATE OF EXAMINATION: 04/06/24 CHIEF COMPLAINT: uti, fever HISTORY OF PRESENT ILLNESS: Ms. Puckett is a 58-year-old female with a PMH of CKD stage IV?follows with Dr. Cavanaugh, kidney stones, anemia of chronic disease, HTN, T2DM the presents to the emergency room tonight for UTI. Patient reports that she has had flank pain forthe last 2 weeks, Wednesday she developed burning with urination, was prescribed antibiotics but she could not obtain them until Wednesday, had her first dose of cefuroxime Wednesday evening. She had a 6-month checkup with Dr. Barnhart today who found that she had a low-grade fever, also told her she needed to go to the emergency room. She describes the flank pain has a severe ache with churning, denies any aggravating or relieving factors. States the burning with urination stopped after her second dose of cefuroxime, she reports no odor, states her urine was darker than usual. She also states that she has had a low- grade feverand chills over the week. Reports that she has been so busy she does not think about it. She states that she always feels pressure and discomfort however now she has urgency. She has never smoked, drinks 1 glass of alcohol maybe 2-3 times a year, denies illicit drug use. She states that she is no longer on blood pressure medications or diabetic medications due to gastric bypass and significant weight loss. CT of the abdomen pelvis shows marked atrophy of the left kidney with a proximal5 mm left ureteral stone, small right renal cyst?no right hydronephrosis or obstructing stone, urinary bladder wall thickening?underdistention versus cystitis. CBC with white blood cell count of 3.4, H&H 11.4/34.8. CMP with a creatinine of 1.81, ALP 132 UA with light yellow, clear urine with 50 protein, 1+ occult blood, 3+ leukocytes, 20-49 WBCs, rare amount of bacteria, culture is pending. Blood cultures were drawn and these are also pending. Previous culture shows E. coli. Patient was medicated with ceftriaxone, morphine, Zofran, hydromorphone and 1 L saline bolus. She will be admitted as observationto the medical floor. Review of Systems Review of Systems Review of systems: A 10 point review of systems was obtained, negative unless noted in the HPI orbelow. 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 Anemia of renal disease Surgical History History of kidney surgery H/O: hysterectomy Gastric bypass status for obesity History of carpal tunnel release Family History Father , @ 69 years old from [place] Heart disease History of stroke Legacy FamHx Problem: Diagnosed with Stroke Myocardial infarction Mother Cancer Legacy FamHx Problem: Diagnosed with Cancer Hypertension Heart disease History of stroke Legacy FamHx Problem: Diagnosed with Stroke 64 yrs Myocardial infarction Stroke TIA (transient ischemic attack) Diabetes Social History Marital Status: Household Members: spouse Smoking Status: Never smoker Substance Use Type: None Current Occupation: [employer] Medications and Allergies Allergies prednisolone Allergy (Unknown, Verified 10/21/23 11:20) hives, SOB valacyclovir (Valtrex) Allergy (Unknown, Verified 10/21/23 11:20) hives Home Medications furosemide 40 mg tablet (Lasix) 40 mg PO BID #180 tabs 01/26/24 [Rx Confirmed 04/06/24] cefuroxime axetil 250 mg tablet 250 mg PO BID 04/06/24 [History Confirmed 04/06/24] ergocalciferol (vitamin D2) 1,250 mcg (50,000 unit) capsule 1,250 mcg PO QWEEK #14 caps 04/06/24 [Rx Confirmed 04/06/24] Exam Physical Exam Vital Signs: Temp Pulse Resp BP Pulse Ox O2 Del Method 98.9 F 74 16 133/78 100 Room Air 04/06/24 19:30 04/06/24 21:09 04/06/24 21:09 04/06/24 21:09 04/06/24 21:09 04/06/24 21:09 Narrative: CONST- Appears well -developed and well nourished. HEAD - Normocephalic and atraumatic EENT-Sclera nonicteric, conjunctive are non-erythemic, moist oral mucosa, pharynx clear NECK-Supple, no cervical lymphadenopathy CARDIAC-normal rate, regular rhythm, S1 & S2. PULM-diminished without wheeze or rhonchi, RA, no accessory muscle use or cough noted ABD - Soft. Bowel sounds are normal. No distention. Flank pain, tenderness EXTREM-no edema BLE calves, nontender SKIN- W/D good turgor MS- MAEX4 spontaneously with equal with equal strength NEURO- A&Ox3 speech clear and tongue midline, equal facial symmetry, no focal motor deficits PSYCH-Mood, affect, and behavior appropriate Results - Hospitalist H&P Lab Results Labs: Laboratory Last Values Corrected WBC 3.4 X10E3/uL (3.8-11.6) L 04/06/24 15:50 Uncorrected WBC Count 3.4 x10E3/uL (3.8-11.6) L 04/06/24 15:50 RBC 4.27 x10E6/uL (3.60-5.00) 04/06/24 15:50 Hgb 11.4 g/dL (11.8-15.4) L 04/06/24 15:50 Hct 34.8 % (34.0-46.4) 04/06/24 15:50 MCV 81.4 fl (80-100) 04/06/24 15:50 MCH 26.8 pg (24.7-34.3) 04/06/24 15:50 MCHC 32.9 g/dL (32.0-35.0) 04/06/24 15:50 RDW 15.5 % (11.9-15.3) H 04/06/24 15:50 Plt Count 185 x10E3/uL (150-450) 04/06/24 15:50 MPV 7.5 fl (6.3-10.7) 04/06/24 15:50 Neut % (Auto) 78.2 % (.) 04/06/24 15:50 Lymph % (Auto) 9.9 % (.) 04/06/24 15:50 [place] % (Auto) 10.2 % (.) 04/06/24 15:50 Eos % (Auto) 1.0 % (.) 04/06/24 15:50 Baso % (Auto) 0.7 % (.) 04/06/24 15:50 Nucleat RBC Rel Count 0.1 /100 WBC (0-0.5) 04/06/24 15:50 Neut # (Auto) 2.6 x10E3/uL (1.8-7.7) 04/06/24 15:50 Lymph # (Auto) 0.3 x10E3/uL (1.00-4.8) L 04/06/24 15:50 [place] # (Auto) 0.3 x10E3/uL (0.0-0.8) 04/06/24 15:50 Eos # (Auto) 0.0 x10E3/uL (0.0-0.45) 04/06/24 15:50 Baso # (Auto) 0.0 x10E3/uL (0.0-0.2) 04/06/24 15:50 Monocyte Dist Width 26.41 % (0.00-20.00) H 04/06/24 15:50 PHA Creatinine Clear 30.77 04/06/24 15:50 Sodium 138 mmol/L (136-145) 04/06/24 15:50 Potassium 3.5 mmol/L (3.5-5.1) 04/06/24 15:50 Chloride 107 mmol/L (98-107) 04/06/24 15:50 Carbon Dioxide 22.4 mmol/L (21.0-31.0) 04/06/24 15:50 Anion Gap 12.1 mEq/L (6.0-15.0) 04/06/24 15:50 BUN 24 mg/dL (7-25) 04/06/24 15:50 Creatinine 1.81 mg/dL (0.60-1.20) H 04/06/24 15:50 Est GFR (CKD-EPI) 31.843 mL/Min 04/06/24 15:50 Glucose 98 mg/dL (70-100) 04/06/24 15:50 Lactic Acid 1.3 mmol/L (0.5-2.2) 04/06/24 20:03 Calcium 8.8 mg/dL (8.6-10.3) 04/06/24 15:50 Total Bilirubin 0.4 mg/dl (0.3-1.0) 04/06/24 15:50 Direct Bilirubin 0.00 mg/dL (0.03-0.18) L 04/06/24 15:50 Indirect Bilirubin 0.4 mg/dL 04/06/24 15:50 AST 41 U/L (13-39) H 04/06/24 15:50 ALT 20 U/L (7-52) 04/06/24 15:50 Alkaline Phosphatase 132 U/L (34-104) H 04/06/24 15:50 Total Protein 6.7 gm/dL (6.4-8.9) 04/06/24 15:50 Albumin 3.3 gm/dL (3.5-5.7) L 04/06/24 15:50 Globulin 3.4 gm/dL 04/06/24 15:50 Albumin/Globulin Ratio 1.0 04/06/24 15:50 Lipase 30.0 U/L (11.0-82.0) 04/06/24 15:50 Urine Color Light-yellow (Yellow) 04/06/24 16:13 Urine Appearance Clear (Clear) 04/06/24 16:13 Urine pH 6.0 (5.0-9.0) 04/06/24 16:13 Ur Specific Rangely 1.015 (1.001-1.030) 04/06/24 16:13 Urine Protein 50 mg/dL (Negative) H 04/06/24 16:13 Urine Glucose (UA) Normal mg/dL (Normal) 04/06/24 16:13 Urine Ketones Negative (Negative) 04/06/24 16:13 Urine Occult Blood 1+ (Negative) H 04/06/24 16:13 Urine Nitrite Negative (Negative) 04/06/24 16:13 Urine Bilirubin Negative (Negative) 04/06/24 16:13 Urine Urobilinogen Normal mg/dL (Normal) 04/06/24 16:13 Ur Leukocyte Esterase 3+ (Negative) H 04/06/24 16:13 Urine RBC 3-4 /HPF (0-4) 04/06/24 16:13 Urine WBC 20-49 /HPF (0-4) H 04/06/24 16:13 Ur Squamous Epith Cells 1-2 /HPF (0-2) 04/06/24 16:13 Urine Bacteria Rare /HPF (None Seen) 04/06/24 16:13 Hyaline Casts 0-8 /LPF (0-8) 04/06/24 16:13 Urine Mucus Rare /LPF 04/06/24 16:13 Assessment & Plan Assessment/Plan (1) UTI (urinary tract infection): (2) Pyelonephritis: (3) CKD (chronic kidney disease) stage 4, GFR 15-29 ml/min: Plan UTI?failed outpatient treatment Suspected Pyelonephritis ? Continue ceftriaxone?pharmacy to dose ? Follow blood cultures, urine culture Chronic conditions CKD stage IV HTN T2DM?currently off all medications due to weight loss DVT PPx?SCDs Diet order?regular CODE STATUS?full code Attending Physician Attestation: I personally reviewed the history, performed the samayoa elements of the exam, formulated the plan of care and confirmed the written note. I agree with the findings and plan as documented in this note and have edited it if needed to reflect my findings and plan. Barbara Zamora MD IP vs OBS Justification Based on differential dx, clinical care plan, and risk of adverse events, if untreated, in my clinical judgement this patient requires an acute care setting as: OBSERVATION because of an expectation of an under 2 midnight stay. Estimated length of stay (# of days): 2 Documented By: Cecille Morel APRN 04/06/242204 Signed By: <Electronically signed by HAIR Morel> 04/06/243 <Electronically signed by Barbara Christy MD> 04/06/[address] [facility] Work Phone: History general Narrative - Reported* Type Description Date Medical History chronic depression Medical HistoryobesityMedical HistoryhypertensionMedical Historydiabetes mallitusMedical HistoryGastric bypassSurgical Historycarpal tunnel release Surgical HistoryhysterectomySurgical Historygastric bypassHospitalization Historysee above [employer] Other History general Narrative - Reported* Type Description Date Medical History chronic depression Medical HistoryobesityMedical HistoryhypertensionMedical Historydiabetes mallitusMedical HistoryGastric bypassSurgical Historycarpal tunnel release Surgical HistoryhysterectomySurgical Historygastric bypassSurgical Historyureter stentHospitalization Historysee above [employer] Other History general Narrative - Reported* Type Description Date Medical History chronic depression Medical HistoryobesityMedical HistoryhypertensionMedical Historydiabetes mellitusMedical HistoryGastric bypassMedical HistoryKIDNEY STONESSurgical Historycarpal tunnel releaseSurgical HistoryhysterectomySurgical Historygastric bypassSurgical Historyureter stentHospitalization Historysee above [employer] Other Hospital course Narrative No data available for this section [facility] Discharge instructions No data available for this section [facility] No data available for this section [facility] Progress note Author Dinora Hawkins [facility] LimaNote Date/TimeNovember 2023 3:53pm [place] [address] Hospitalist Progress Note Signed Patient: Elizabeth Irvin MR#: [id number] : 1965 Acct:[id number] Age/Sex: 58 / F Adm Date: 4 Loc: Room: [address] [place] [address] Type: ADM IN Attending Dr: Dinora Hawkins MD Copies to: ~ Date of Service: 04/07/2024 Subjective Subjective Narrative: Patient seen examined at bedside. I took over this patient care from overnight admission. She does have urinary symptoms despite being on oral antibiotic which is an indication for inpatient mission state of observation. Patient is on ceftriaxone 1 g every 24 hours for now. Urology was consulted for his stone history. No other issues overnight. She also requires IV Dilaudid as needed for pain. Also there is a concern for possible bacteremia given her resistant UTI on oral antibiotics as well astreatment for clinical pyelonephritis. Please note that the CT abdomen pelvis done on admission waswithout IV contrastgiven her chronic kidney disease, when this will interfere with diagnostic pain nephritis radiographically. Exam Physical Exam Vital Signs: Temp Pulse Resp BP Pulse Ox O2 Del Method 97.4 F L 71 14 123/76 99 Room Air 04/07/24 08:03 04/07/24 08:03 04/07/24 08:03 04/07/24 08:03 04/07/24 08:03 04/07/24 08:03 Narrative: CONST- Appears well -developed and well nourished, pleasant, cooperative, lying comfortably in bed HEAD - Normocephalic and atraumatic EENT-Sclera nonicteric, conjunctive are non-erythemic, moist oral mucosa, pharynx clear NECK-Supple, no cervical lymphadenopathy CARDIAC-normal rate, regular rhythm, S1 & S2. PULM-diminished without wheeze or rhonchi, RA, no accessory muscle use or cough noted ABD - Soft. Bowel sounds are normal. No distention. Flank pain, tenderness with +ve CVA EXTREM-no edema BLE calves, nontender MS- MAEX4 spontaneously with equal with equal strength NEURO- A&Ox3 speech clear and tongue midline, equal facial symmetry, no focal motor deficits Objective Lab Results 04/07/24 06:23 04/07/24 06:23 Microbiology Results Microbiology 04/06/24 16:13 Urine - Clean-Voided Midstream Urine Culture - Preliminary No Growth 1 Day Meds Allergies and Active Meds Allergies prednisolone Allergy (Unknown, Verified 10/21/23 11:20) hives, SOB valacyclovir (Valtrex) Allergy (Unknown, Verified 10/21/23 11:20) hives Active Meds: Active Medications Generic Name Dose Route Start Last Admin Trade Name Freq PRN Reason Stop Dose Admin Acetaminophen 1,000 mg 04/06/24 22:02 04/07/24 08:02 Acetaminophen 500 Mg Tablet PO 04/06/25 22:01 1,000 mg Q6HR PRN Administration Pain Scale 1 - 3 or fever Ceftriaxone Sodium 1 gm 04/07/24 20:00 Ceftriaxone 1 Gm/10 Ml Syringe IV-PUSH Q24H MARGARETTE Hydromorphone HCl 0.5 mg 04/06/24 22:02 04/07/24 10:33 Hydromorphone 0.5 Mg/0.5 Ml Syringe IV-PUSH 0.5 mg Q4H PRN Administration Pain Scale 8 - 10 Ondansetron HCl 4 mg 04/06/24 22:02 04/07/24 05:18 Ondansetron 4 Mg/2 Ml Vial IV-PUSH 04/06/25 22:01 4 mg Q6H PRN Administration Nausea And Vomiting Oxycodone HCl 5 mg 04/06/24 22:02 04/07/24 01:07 Oxycodone Ir 5 Mg Tablet PO 5 mg Q6HR PRN Administration Pain Scale 4 - 7 Sodium Chloride 0 ml 04/07/24 06:00 04/07/24 05:19 Sodium Chloride 0.9 % 10 Ml Syringe IV-PUSH 04/07/25 05:59 10 ml QSHIFT MARGARETTE Administration A&P - Hospitalist Assessment/Plan (1) UTI (urinary tract infection): (2) Pyelonephritis: (3) CKD (chronic kidney disease) stage 4, GFR 15-29 ml/min: Plan Recurrent UTI and clinical pyelonephritis ?failed outpatient treatment ? Continue ceftriaxone IV -Follow up on her new urine cultures and blood cultures and adjust antibiotic accordingly, results may be influenced by her recent PO antibiotic intake -Urology consulted given her hx of recurrent nephrolithiasis Normocytic anemia likely in the setting of CKD and chronic inflammation Chronic conditions CKD stage IV HTN T2DM?currently off all medications due to weight loss DVT PPx?SCDs Diet order?regular CODE STATUS?full code I discussed the plan of management with the pt at bedside in details. I answeredher questions and addressed her concerns. Time Spent With Patient (min): 50 Documented By: Dinora Hawkins MD 04/07/24 1132 Signed By: <Electronically signed by Dinora Hawkins MD> 04/07/[address] [facility] Work Phone: Reason for referral (narrative) Referred by: KULWANT REED, Chalo Frazier [facility] Reason for referral (narrative)* Diagnostic Procedure Only (Routine) - Pending ReviewSpecialtyDiagnoses / ProceduresReferred By ContactReferred To ContactMOLECULAR & FUNCTIONAL IMAGING Diagnoses Hydronephrosis with urinary obstruction due to ureteral calculus Procedures NM RENAL FLOW/FXN W PHARM KIDNEY IMG MORPHOLOGY VASCULAR FLOW 1 W/RX Samy Odonnell MD [address] [place] [address] Molecular & Functional Imaging [address] [place] [address] Referral IDStatusReasonStart DateExpiration DateVisits RequestedVisits [id number] Review Auto-Generated Referral / [facility] for referral (narrative)* Diagnostic Procedure Only (Routine) - ClosedSpecialtyDiagnoses / ProceduresReferred By ContactReferred To ContactMOLECULAR & FUNCTIONAL IMAGING Diagnoses Hydronephrosis with urinary obstruction due to ureteral calculus Procedures NM RENAL FLOW/FXN W PHARM KIDNEY IMG MORPHOLOGY VASCULAR FLOW 1 W/RX Samy Odonnell MD [address] [place] [address] Molecular & Functional Imaging [address] [place] [address] Referral IDStatusReasonStart DateExpiration DateVisits RequestedVisits [id number] Auto-Generated Referral / [facility] for referral (narrative)* Diagnostic Procedure Only (Routine) - Pending ReviewSpecialtyDiagnoses / ProceduresReferred By Contact Referred To ContactXR IMAGING Diagnoses Nephrolithiasis Procedures XR ABDOMEN 3V KUB W/OBLIQUES RADIOLOGIC EXAM ABDOMEN 3+ VIEWS Samy Odonnell MD [address] [place] [address] Xr Imaging Referral IDStatusReasonStart DateExpiration DateVisits RequestedVisits [id number] Review Auto-Generated Referral / * Diagnostic Procedure Only (Routine) - Pending ReviewSpecialtyDiagnoses / ProceduresReferred By ContactReferred To ContactUS IMAGING Diagnoses Nephrolithiasis Procedures US KIDNEY/BLADDER US RETROPERITONEAL REAL TIME W/IMAGE COMPLETE Samy Odonnell MD [address] [place] [address] Us Imaging Referral IDStatusReasonStwyoming DateExpiration DateVisits RequestedVisits [id number] Review Auto-Generated Referral T [facility] for referral (narrative)* Diagnostic Procedure Only (Routine) - ClosedSpecialtyDiagnoses / ProceduresReferred By ContactReferred To ContactUS IMAGING Diagnoses Nephrolithiasis Procedures US KIDNEY/BLADDER US RETROPERITONEAL REAL TIME W/IMAGE COMPLETE Samy Odonnell MD [address] [place] [address] Us Imaging [place] [address] Referral [facility]StatCore[facility] DateExpiration DateVisits RequestedVisits [id number] Auto-Generated Referral [facility] for referral (narrative)* Diagnostic Procedure Only (Routine) - ClosedSpecialtyDiagnoses / ProceduresReferred By ContactReferred To ContactXR IMAGING Diagnoses Nephrolithiasis Procedures XR ABDOMEN 3V KUB W/OBLIQUES RADIOLOGIC EXAM ABDOMEN 3+ VIEWS Samy Odonnell MD [address] [place] [address] Xr Imaging [place] [address] Referral IDStatusReasonStwyoming DateExpiration DateVisits RequestedVisits [id number] Auto-Generated Referral [facility] for visit Narrative* Diagnostic Procedure Only (Routine) - ClosedSpecialtyDiagnoses / ProceduresReferred By ContactReferred To Contact MOLECULAR & FUNCTIONAL IMAGING Diagnoses Hydronephrosis with urinary obstruction due to ureteral calculus Procedures NM RENAL FLOW/FXN W PHARM KIDNEY IMG MORPHOLOGY VASCULAR FLOW 1 W/RX Samy Odonnell MD [address] [place] [address] Molecular & Functional Imaging [address] [place] [address] Referral IDStatusReasonStart DateExpiration DateVisits RequestedVisits [id number] Auto-Generated Referral [facility] for visit Narrative* Diagnostic Procedure Only (Routine) - ClosedSpecialtyDiagnoses / ProceduresReferred By ContactReferred To Contact US IMAGING Diagnoses Nephrolithiasis Procedures US KIDNEY/BLADDER US RETROPERITONEAL REAL TIME W/IMAGE COMPLETE Samy Odonnell MD [address] [place] [address] Us Imaging [place] [address] Referral IDStatusReasonG[place] DateExpiration DateVisits RequestedVisits [id number] Auto-Generated Referral [facility] Summary Purpose Family History No Family History Records FoundUnknown Family Member Name Dates Details Family history of myocardial infarction: Mother, Father(V17.3, Z82.49) Status:Active Relationship Condition Age at Onset Recorded Date/T [place] father Heart disease Unknown DeceasedUnknownHistory of strokeUnknownNot SpecifiedMalignant neoplasmUnknown HypertensionUnknownHeart diseaseUnknown Relationship Condition Age at Onset Recorded Date/T [place] father Heart disease Unknown DeceasedUnknownHistory of strokeUnknownmotherMalignant neoplasmUnknown HypertensionUnknownHeart diseaseUnknown Relationship Condition Age at Onset Recorded Date/T [place] father Heart disease Unknown DeceasedUnknownHistory of strokeUnknownMyocardial infarctionUnknownmother Malignant neoplasmUnknownHypertensionUnknownHeart diseaseUnknownCerebrovascular accident (CVA)UnknownTransient ischemic attackUnknownDiabetes mellitusUnknown Advance Directives No Advanced Directives Records Found Advance Directive Response Recorded Date/ Time Advance Directives No June 9:49am Advance Directive Response Recorded Date/ Time Advance Directives No June 10:49am Chief Complaint and Reason for Visit Chief Complaint n20.0 Chief Complaint RENAL CKD 4 Reason for Visit Anemia of renal dise ase 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 CKD (chronic kidney disease) stage 4, GFR 15-29 ml/min Nephrolithiasis Secondary hyperparathyroidism [id number] Chief Complaint RENAL CKD 4 N18.9 D63.1 I12.9 N25.81 E11.+9Reason for VisitAnemia of renal disease 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 CKD (chronic kidney disease) stage 4, GFR 15-29 ml/min Nephrolithiasis Secondary hyperparathyroidism [id number] Chief Complaint RENAL CKD 4 N18.9 D63.1 I12.9 N25.81 E11.+9 RENAL 1 MONTH F/UReason for VisitAnemia of renal disease 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 CKD (chronic kidney disease) stage 4, GFR 15-29 ml/min Nephrolithiasis Secondary hyperparathyroidism [id number] Anemia of renal disease 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 CKD (chronic kidney disease) stage 4, GFR 15-29 ml/min Nephrolithiasis Secondary hyperparathyroidism [id number] Chief Complaint Admit Date D63.1 N18.9 E11.9 I12.9 N18.4 N20.0 Vicky lao 2023 2:29pm Chief Complaint Admit Date D63.1 N18.9 E11.9 I12.9 N18.4 N20.0 Vicky lao 2023 2:29pm RENAL 6 MONTH F/U April 06, 2024 2:17pm sent by April 06, 2024 9:19pm Reason for Visit Admit Date Anemia of renal disease April 06, 2 024 2:17pm 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 April 06, 2024 2:17pm CKD (chronic kidney disease) stage 4, GF R 15-29 ml/min April 06, 2024 2:17pm Nephrolithiasis April 06, 2024 2:17pm Secondary hyperparathyroidism March 242023 2:17pm Type 2 diabetes mellitus wit hout complication, without long-term current us April 06, 2024 2:17pm UTI (urinary tract infection) March 242023 2:17pm Nephrolithiasis April 06, 2024 9:19pm Pyelonephritis April 06, 2024 9:19pm Chief Complaint Admit Date D63.1 N18.9 E11.9 I12.9 N18.4 N20.0 Vicky lao 2023 2:29pm RENAL 6 MONTH F/U April 06, 2024 2:17pm Reason for Visit Admit Date Anemia of renal disease April 06, 2 024 2:17pm 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 April 06, 2024 2:17pm Nephrolithiasis April 06, 2024 2:17pm Secondary hyperparathyroidism March 242023 2:17pm Type 2 diabetes mellitus wit hout complication, without long-term current April 06, 2024 2:17pm Chief Complaint Admit Date D63.1 N18.9 E11.9 I12.9 N18.4 N20.0 Vicky elijah 2023 2:29pm RENAL 6 MONTH F/U April 06, 2024 2:17pm sent by April 07, 2024 11:49am Reason for Visit Admit Date Anemia of renal disease April 06, 2 024 2:17pm 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 April 06, 2024 2:17pm CKD (chronic kidney disease) stage 4, GF R 15-29 ml/min April 06, 2024 2:17pm Nephrolithiasis April 06, 2024 2:17pm Secondary hyperparathyroidism March 242023 2:17pm Type 2 diabetes mellitus wit hout complication, without long-term current April 06, 2024 2:17pm UTI (urinary tract infection) March 242023 2:17pm CKD (chronic kidney disease) stage 4, GF R 15-29 ml/min April 07, 2024 11:49am Nephrolithiasis April 07, 2024 11:49am Pyelonephritis April 07, 2024 11:49am UTI (urinary tract infection) March 242023 11:49am Medications Administered Section Medication OrderMAR ActionAction DateDoseRateSite cephALEXin 500 mg cap(s) (KEFLEX) 500 mg, ORAL, ONCE (UP TO 30 DAYS AMB), 1 dose, On Wed09/16/22 at 1230, Prior to HOPS procedure, Please document the antimicrobial indication: Prophylaxis Given09/16/2022 12:26 PM [id number] mg lidocaine urojet 2 % 10 mL topical gel (GLYDO) 10 mL, URETHRAL, ONCE (UP TO 30 DAYS AMB), 1 dose, On Wed09/16/22 at 0000, APPLY PRIOR TO PROCEDUREAS DIRECTED Given09/16/2022 12:00 PM EDT10 mLMedication OrderMAR ActionAction DateDoseRate Site lidocaine urojet 2 % 10 mL topical gel (GLYDO) 10 mL, URETHRAL, ONCE (UP TO 30 DAYS AMB), 1 dose, On Wed10/21/22 at 0000, APPLY PRIOR TO PROCEDUREAS DIRECTED Given10/21/2022 12:03 PM EDT10 mL Additional Source Comments INFORMATION SOURCE (unrecogn ized section and content) DATE CREATED AUTHOR 07/25/2020 [facility] DATE CREATED AUTHOR AUTHOR'S ORGANIZ ATION 04/05/2022 [facility] DATE CREATED AUTHOR AUTHOR'S ORGANIZ ATION 05/06/2022 [facility] DATE CREATED AUTHOR AUTHOR'S ORGANIZ ATION 08/01/2022 [facility] DATE CREATED AUTHOR AUTHOR'S ORGANIZ ATION 04/28/2023 [facility] DATE CREATED AUTHOR AUTHOR'S ORGANIZ ATION 04/13/2024 [facility] DATE CREATED AUTHOR AUTHOR'S ORGANIZ ATION 04/19/2024 [facility] DATE CREATED AUTHOR AUTHOR'S ORGANIZ ATION 04/04/2025 [facility] DATE CREATED AUTHOR AUTHOR'S ORGANIZ ATION 04/05/2025 [facility] REASON FOR VISIT (unrecogniz ed section and content) ReasonCommentsConsultKidney StonesReasonCommentsCare Coordinator - OtherReason CommentsReturning Patient's CallReasonCommentsPre-Op ExamSpecialtyDiagnoses / ProceduresReferred By ContactReferred To ContactADMITTING Diagnoses Nephrolithiasis Procedures CYSTO/URETERO W/LITHOTRIPSY &INDWELL STENT INSRT CYSTO W/INSERT URETERAL STENT CYSTOURETHROSCOPY W/ URETEROSCOPY AND/OR PYELOSCOPY W/ LITHOTRIPSY INCLUDE INSERTION OF INDWELLING URETERAL STENT CYSTOSCOPY, INSERTION STENT URETERAL [facility] [address] [place] [address] Referral IDStatusReasonStart DateExpiration DateVisits RequestedVisits [id number] DateCommentsOpened In Error09/24/2022Reason CommentsRadio Gen [id number] / ProceduresReferred By ContactReferred To ContactXR IMAGING Diagnoses Nephrolithiasis Procedures XR ABDOMEN 3V KUB W/OBLIQUES RADIOLOGIC EXAM ABDOMEN 3+ VIEWS Samy Odonnell MD [address] [place] [address] Xr Imaging [place] [address] Referral IDStatusReasonStart DateExpiration DateVisits RequestedVisits [id number] Auto-Generated Referral /[id number] DateCommentsResults 4ReasonCommentsAnnual ExamReasonCommentsUTI Patient Care team informatio n (unrecognized section and content) Team Status: Active Member Role Status Dates CESAR Brandon Primary Care Provider Active Team Status: Inactive Member Role Status Dates CESAR Brandon Primary Care Provider Active Start: September 02, 2023 End: September 01bdul Latha Cavanaughending ProviderActiveStart: September 02, 2023 End: September 02, 2023 Team Status: Inactive Member Role Status Dates Chalo Blum MD Attending Provider Active Barbara Brandonimary Care ProviderActiveTeam MemberRelationship SpecialtyStart DateEnd Date Chalo Blum [address] [place] [phone] ReferringUrolog07/07/22Team MemberRelationshipSpecialtyStart DateEnd Date Chalo Blum [address] [place] [phone] ReferringUrology2/14/23Team MemberRelationshipSpecialtyStart DateEnd Date Chalo Blum P [address] [place] [address] ReferringUrology2/14/23Team MemberRelationshipSpecialtyStart DateEnd Date Chalo Blum P [address] [place] [address] ReferringUrology2/14/23Team MemberRelationshipSpecialtyStart DateEnd Date Chalo Blum P [address] [place] [address] ReferringUrology2/14/23Team MemberRelationshipSpecialtyStart DateEnd Date Chalo Blum P [address] [place] [address] ReferringUrology2/14/23Team MemberRelationshipSpecialtyStart DateEnd Date Chalo Blum P [address] [place] [address] ReferringUrology2/14/23Team MemberRelationshipSpecialtyStart DateEnd Date Chalo Blum P [address] [place] [address] ReferringUrology2/14/23Team MemberRelationshipSpecialtyStart DateEnd Date Chalo Blum P [address] [place] [address] ReferringUrology2/14/23Team MemberRelationshipSpecialtyStart DateEnd Date Chalo Blum P [address] [place] [address] ReferringUrology2/14/23Team MemberRelationshipSpecialtyStart DateEnd Date KulwantAllenChalo P [address] [place] [address] ReferringUrology2/1423Team MemberRelationshipSpecialtyStart DateEnd Date KulwantAllenChalo P [address] [place] [address] ReferringUrology2/1423Team MemberRelationshipSpecialtyStart DateEnd Date KulwantAllenChalo P [address] [place] [address] ReferringUrology2/1423Team MemberRelationshipSpecialtyStart DateEnd Date Chalo Blum [address] [place] [address] ReferringUrology2/14/23Team MemberRelationshipSpecialtyStart DateEnd Date Justin Marley MD [address] [place] [phone] [facility] Team Status: Active Member Role Status Dates Justin Marley MD Primary Care Provider Active Team Status: Inactive Member Role Status Dates Justin Marley MD Primary Care Provider Active Start: October 13, 2023 End: October 12sumi Cavanaugh MDAttending ProviderActiveStart: October 13, 2023 End: October 13, 2023 Team Status: Inactive Member Role Status Dates Irina Cavanaugh MD Attending Provider Active Start : October 21, 2023 End: October 21, 2023[facility] Care ProviderActiveStart: October 21, 2023 End: October 21, 2023 Team Status: Inactive Member Role Status Dates Justin Marley MD Primary Care Provider Active Start: March 30, 2024 End: March 30bdul Mao , MDAttending ProviderActiveStart: March 30, 2024 End: March 30, 2024 Team Status: Inactive Member Role Status Dates Justin Marley MD Primary Care Provider Active Start: April 06, 2024 End: April 06bdul Mao , MDAttending ProviderActiveStart: April 06, 2024 End: April 06, 2024 Team Status: Active Member Role Status Dates Justin Marley MD Primary Care Provider Active Start: April 06, 2024 Lynne Camilo Jr ProviderActiveStart: April 06, 2024 Barbara Christy MDAdmit Provider, Attending ProviderActiveStart: April 06, 2024 Team Status: Inactive Member Role Status Dates Justin Marley MD Primary Care Provider Active Start: April 07, 2024 End: April 09, 2024ThyLnne Dunlap Jr ProviderActiveStart: April 07, 2024 End: April 09, 2024Barbara Christy , MDAdmit ProviderActiveStart: April 07, 2024 End: April 09, 2024Mopenny Hawkins , MDAttending ProviderActiveStart: April 07, 2024 End: April 09, 2024Antonio Lawrence MDOther ProviderActiveStart: April 07, 2024 End: April 09, 2024Hugo Tejada MDOther ProviderActiveStart: April 07, 2024 End: April 09, 2024Team MemberRelationshipSpecialtyStart DateEnd Date Justin Marley MD (Fax) [facility] - [facility] Justin Marley MD [address] [place] [address] (Fax) PCP - [employer]09/22/23Team MemberRelationshipSpecialtyStart DateEnd Date Justin Marley MD [address] [place] [address] PCP - GeneralFamily Medicine06/08/23 Justin Marley MD [address] [place] [address] (Fax) PCP - [employer]09/22/23Team MemberRelationshipSpecialtyStart DateEnd Date Justin Marley MD [address] [place] [address] PCP - GeneralFamily Medicine06/08/23 Justin Marley MD [address] [facility] [place] [address] (Fax) PCP - [employer]09/22/23Team MemberRelationshipSpecialtyStart DateEnd Date Justin Marley MD [address] [place] [address] PCP - Generalmily Medicine06/08/23 Justin Marley MD [address] [facility] [place] [address] (Fax) PCP - [employer]09/22/23Team MemberRelationshipSpecialtyStart DateEnd Date Justin Marley MD (Fax) PCP - GeneralFamily Medicine06/08/23Team MemberRelationshipSpecialtyStart DateEnd Date Justin Marley MD [address] [place] [address] (Fax) PCP - Generalmily Medicine12/19/24Team MemberRelationshipSpecialtyStart DateEnd Date Justin Marley MD [address] [place] [address] [place] [address] (Fax) [facility] - [facility]12/19/24Team MemberRelationshipSpecialtyStart DateEnd Date Justin Marley MD (Fax) PCP - Generalmily Medicine/ Justin Marley MD [address] [place] [address] [place] [address] (Fax) PCP - [employer]5//04/17 Justin Marley MD [address] [place] [address] [place] [address] (Fax) [facility] - [facility]12/19/24Team MemberRelationshipSpecialtyStart DateEnd Date Justin Marley MD [address] [place] [address] [place] [address] (Fax) PCP - General acute hospital Medicine12/19/24 Goals (unrecognized section and content) Goals may be documented in a n alternate section Source Comments (unrecognize d section and content) In the event this informatio n is protected by the Federal Confidentiality of Alcohol and Drug Abuse Patient Records regulations: The Federal rules restrict any use of the information to criminally investigate or prosecute any alcohol or drug abuse patient.[facility] the event this information is protected by the Federal Confidentiality of Alcohol and Drug Abuse Patient Records regulations: The Federal rules restrict any use of the information to criminally investigate or prosecute any alcohol or drug abuse patient.[facility] HospitalIn the event this information is protected by the Federal Confidentiality of Alcohol and Drug Abuse Patient Records regulations: The Federal rules restrict any use of the information to criminally investigate or prosecute any alcohol or drug abuse patient.[facility] HospitalIn the event this information is protected by the Federal Confidentiality of Alcohol and Drug Abuse Patient Records regulations: The Federal rules restrict any use of the information to criminally investigate or prosecute any alcohol or drug abuse patient.[facility] HospitalIn the event this information is protected by the Federal Confidentiality of Alcohol and Drug Abuse Patient Records regulations: The Federal rules restrict any use of the information to criminally investigate or prosecute any alcohol or drug abuse patient.[facility] HospitalIn the event this information is protected by the Federal Confidentiality of Alcohol and Drug Abuse Patient Records regulations: The Federal rules restrict any use of the information to criminally investigate or prosecute any alcohol or drug abuse patient.[facility] HospitalIn the event this information is protected by the Federal Confidentiality of Alcohol and Drug Abuse Patient Records regulations: The Federal rules restrict any use of the information to criminally investigate or prosecute any alcohol or drug abuse patient.[facility] HospitalIn the event this information is protected by the Federal Confidentiality of Alcohol and Drug Abuse Patient Records regulations: The Federal rules restrict any use of the information to criminally investigate or prosecute any alcohol or drug abuse patient.[facility] HospitalIn the event this information is protected by the Federal Confidentiality of Alcohol and Drug Abuse Patient Records regulations: The Federal rules restrict any use of the information to criminally investigate or prosecute any alcohol or drug abuse patient.[facility] HospitalIn the event this information is protected by the Federal Confidentiality of Alcohol and Drug Abuse Patient Records regulations: The Federal rules restrict any use of the information to criminally investigate or prosecute any alcohol or drug abuse patient.[facility] HospitalIn the event this information is protected by the Federal Confidentiality of Alcohol and Drug Abuse Patient Records regulations: The Federal rules restrict any use of the information to criminally investigate or prosecute any alcohol or drug abuse patient.[facility] HospitalIn the event this information is protected by the Federal Confidentiality of Alcohol and Drug Abuse Patient Records regulations: The Federal rules restrict any use of the information to criminally investigate or prosecute any alcohol or drug abuse patient.[facility] HospitalIn the event this information is protected by the Federal Confidentiality of Alcohol and Drug Abuse Patient Records regulations: The Federal rules restrict any use of the information to criminally investigate or prosecute any alcohol or drug abuse patient.[facility] HospitalIn the event this information is protected by the Federal Confidentiality of Alcohol and Drug Abuse Patient Records regulations: The Federal rules restrict any use of the information to criminally investigate or prosecute any alcohol or drug abuse patient.[facility] HospitalIn the event this information is protected by the Federal Confidentiality of Alcohol and Drug Abuse Patient Records regulations: The Federal rules restrict any use of the information to criminally investigate or prosecute any alcohol or drug abuse patient.[facility] HospitalIn the event this information is protected by the Federal Confidentiality of Alcohol and Drug Abuse Patient Records regulations: The Federal rules restrict any use of the information to criminally investigate or prosecute any alcohol or drug abuse patient.[facility] HospitalIn the event this information is protected by the Federal Confidentiality of Alcohol and Drug Abuse Patient Records regulations: The Federal rules restrict any use of the information to criminally investigate or prosecute any alcohol or drug abuse patient.[facility] HospitalIn the event this information is protected by the Federal Confidentiality of Alcohol and Drug Abuse Patient Records regulations: The Federal rules restrict any use of the information to criminally investigate or prosecute any alcohol or drug abuse patient.[facility] HospitalIn the event this information is protected by the Federal Confidentiality of Alcohol and Drug Abuse Patient Records regulations: The Federal rules restrict any use of the information to criminally investigate or prosecute any alcohol or drug abuse patient.[facility] HospitalIn the event this information is protected by the Federal Confidentiality of Alcohol and Drug Abuse Patient Records regulations: The Federal rules restrict any use of the information to criminally investigate or prosecute any alcohol or drug abuse patient.[facility] HospitalIn the event this information is protected by the Federal Confidentiality of Alcohol and Drug Abuse Patient Records regulations: The Federal rules restrict any use of the information to criminally investigate or prosecute any alcohol or drug abuse patient.[facility] FOR RECORDS PERTAINING TO PATIENTS WHO [...] BE BASED ON THE PRIMARY CLINICAL RECORDS. [facility] [employer] [facility]. provides no warranty or guarantee of the accuracy or completeness of information in this document.
== END 2025-04-16 14:01 | disposition home or self-care (01) ==
LOC: SLEEP 04-17 11:07
PROVIDERS: PCP Family Medicine; Visit Provider Family Medicine
DX: G47.33 Obstructive sleep apnea (adult) (pediatric) (principal)
CPT/HCPCS: 95806